=== PATIENT | female | born 1975 | race Caucasian/White ===

== ENCOUNTER 2016-12-03 13:20 | Outpatient (CLI) | payer MEDICAID | END 2016-12-03 13:21 | disposition home or self-care (01) | DX: M54.5 Low back pain (principal) ==

== ENCOUNTER 2016-12-07 11:06 | Outpatient (CLI) | payer MEDICAID | END 2016-12-07 11:07 | disposition home or self-care (01) | DX: M47.816 Spondylosis without myelopathy or radiculopathy, lumbar region (principal); M51.46 Schmorl's nodes, lumbar region; M54.5 Low back pain ==

== ENCOUNTER 2017-01-05 11:54 | Outpatient (CLI) | payer MEDICAID | END 2017-01-05 11:55 | disposition home or self-care (01) | DX: M79.672 Pain in left foot (principal) ==

== ENCOUNTER 2017-03-15 12:34 | Outpatient (CLI) | payer MEDICAID | END 2017-03-15 12:35 | disposition home or self-care (01) | DX: N05.9 Unspecified nephritic syndrome with unspecified morphologic changes (principal); R80.9 Proteinuria, unspecified; D64.9 Anemia, unspecified ==

== ENCOUNTER 2017-03-25 15:28 | Outpatient (CLI) | payer MEDICAID | END 2017-03-25 15:29 | disposition home or self-care (01) | DX: M25.512 Pain in left shoulder (principal) ==

== ENCOUNTER 2017-03-26 14:45 | Outpatient (CLI) | payer MEDICAID | END 2017-03-26 14:46 | disposition home or self-care (01) | DX: E87.6 Hypokalemia (principal) ==

== ENCOUNTER 2017-04-16 08:00 | Outpatient (CLI) | payer MEDICAID | END 2017-04-16 08:01 | disposition home or self-care (01) | LOC: LAB 08:00 | PROVIDERS: ATTEND Internal Medicine Nephrology | DX: E78.5 Hyperlipidemia, unspecified (principal) ==

== ENCOUNTER 2017-04-16 15:53 | Outpatient (CLI) | payer MEDICAID ==
[2017-04-16 16:44] LABS: ALBUMIN/GLOBULIN RATIO 1.4 (1.0-2.2); BILIRUBIN,TOTAL 0.4 mg/dL (0.2-1.0); BUN - BLOOD UREA NITROGEN 17 mg/dL (6-20); CALCIUM 9.1 mg/dL (8.5-10.3); CARBON DIOXIDE - CO2 27 mmol/L (21-32); CHLORIDE 102 mmol/L (101-111); CHOLESTEROL 163 mg/dL; GFR - MDRD 61 (>89); GLUCOSE 132 mg/dL (70-100); HDL CHOLESTEROL 55 mg/dL; LDL/HDL RATIO 1.6 (<4.4); POTASSIUM 4.3 mmol/L (3.5-5.0); SODIUM 137 mmol/L (135-145); TOTAL PROTEIN 7.4 g/dL (6.7-8.2); TRIGLYCERIDES 91 mg/dL; VLDL CHOLESTEROL 18 mg/dL
== END 2017-04-16 15:54 | disposition home or self-care (01) ==
LOC: LAB 15:53
PROVIDERS: ATTEND Internal Medicine Nephrology
DX: E10.69 Type 1 diabetes mellitus with other specified complication (principal)
CPT/HCPCS: 36415; 80053; 80061

== ENCOUNTER 2017-05-06 15:55 | Outpatient (CLI) | payer MEDICAID ==
[2017-05-06 17:25] LABS: THYROID STIMULATING HORMONE 0.09 uIU/mL (0.34-5.60)
== END 2017-05-06 15:56 | disposition home or self-care (01) ==
LOC: LAB 15:55
PROVIDERS: ATTEND Internal Medicine Endocrinology, Diabetes & Metabolism
DX: E03.9 Hypothyroidism, unspecified (principal); E03.8 Other specified hypothyroidism
CPT/HCPCS: 36415; 82306; 84439; 84443

== ENCOUNTER 2017-06-10 13:48 | Outpatient (CLI) | payer MEDICAID ==
[2017-06-10 14:50] LABS: CALCIUM 9.1 mg/dL (8.5-10.3); POTASSIUM 4.1 mmol/L (3.5-5.0)
== END 2017-06-10 13:49 | disposition home or self-care (01) ==
LOC: LAB 13:48
PROVIDERS: ATTEND Internal Medicine Nephrology
DX: N05.9 Unspecified nephritic syndrome with unspecified morphologic changes (principal)
CPT/HCPCS: 36415; 80048

== ENCOUNTER 2017-07-09 12:27 | Outpatient (CLI) | payer MEDICAID ==
--- NOTE | 2017-07-09 21:56 | MRI Report ---
EXAM: MRI CERVICAL SPINE WITHOUT CONTRAST EXAM DATE: 07/09/2017 12:45 PM. CLINICAL HISTORY: Chronic neck pain, left shoulder pain. COMPARISONS: None. TECHNIQUE: Multiplanar, multisequence T1-weighted and fluid-sensitive sequences of the cervical spine without contrast. Other: None. FINDINGS: Neurologic Structures: The visualized posterior fossa structures are unremarkable. No signal abnormal ity in the visualized spinal cord. Alignment: Normal. No scoliosis or spondylolisthesis. Bone Marrow: No gross fractures or bone lesions. No marrow edema. Interspace Levels/Facets: C1-C2: Unremarkable. C2-C3: Unremarkable. C3-C4: Minimal right uncovertebral hypertrophy without significant foraminal narrowing. C4-C5: Unremarkable. C5-C6: Right subarticular disk osteophyte complex and asymmetric right uncovertebral hypertrophy, rem odeling the right lateral aspect of the cord, presumably impinging on the right C6 nerve root. Findin gs could be correlated with right C6 radiculopathy. Minimal left uncovertebral hypertrophy with minim al right foraminal narrowing. No significant canal narrowing. C6-C7: Unremarkable. C7-T1: Unremarkable. Musculature: Normal. No edema or fatty atrophy. Other: The paravertebral and prevertebral soft tissues are normal. IMPRESSION: 1. Left foraminal narrowing most pronounced at C5-C6, but only minimal in severity. 2. At C5-C6, focal right C5-C6 protrusion and uncovertebral hypertrophy remodeling the right lateral aspect of the cord, could be correlated with right C6 radiculopathy. 3. Minimal right C3-C4 uncovertebral hypertrophy with minimal right C3-C4 foraminal narrowing. [facility] Referring Provider Line: [phone] SITE ID: [id number]
== END 2017-07-09 12:28 | disposition home or self-care (01) ==
LOC: DI 12:27
PROVIDERS: ATTEND Orthopaedic Surgery
DX: M47.892 Other spondylosis, cervical region (principal); M50.822 Other cervical disc disorders at C5-C6 level
CPT/HCPCS: 72141

== ENCOUNTER 2017-07-20 10:29 | Outpatient (CLI) | payer MEDICAID | END 2017-07-20 10:30 | disposition home or self-care (01) | LOC: LAB 10:29 | PROVIDERS: ATTEND Internal Medicine Endocrinology, Diabetes & Metabolism | DX: E03.9 Hypothyroidism, unspecified (principal) | CPT/HCPCS: 36415; 84443 ==

== ENCOUNTER 2017-08-27 14:13 | Outpatient (CLI) | payer MEDICAID ==
[2017-08-27 14:34] LABS: BASOPHILS # (AUTO) 0.1 10^3/uL (0.0-0.1); BASOPHILS % (AUTO) 1.3 %; EOSINOPHILS # (AUTO) 0.4 10^3/uL (0.0-0.7); EOSINOPHILS % (AUTO) 6.4 %; HCT - HEMATOCRIT 31.9 % (37.0-47.0); HGB - HEMOGLOBIN 10.3 g/dL (12.0-16.0); LYMPHOCYTES # (AUTO) 1.6 10^3/uL (1.5-3.5); LYMPHOCYTES % (AUTO) 23.8 %; MEAN CORPUSCULAR HEMOGLOBIN 24.9 pg (27.0-31.0); MEAN CORPUSCULAR HGB CONC 32.1 g/dL (32.0-36.0); MEAN CORPUSCULAR VOLUME 77.5 fL (81.0-99.0); MEAN PLATELET VOLUME 7.6 fL (7.9-10.8); MONOCYTES # (AUTO) 0.5 10^3/uL (0.0-1.0); MONOCYTES % (AUTO) 7.6 %; NEUTROPHILS # (AUTO) 4.2 10^3/uL (1.5-6.6); NEUTROPHILS % (AUTO) 60.9 %; RED BLOOD COUNT 4.12 10^6/uL (4.20-5.40); RED CELL DISTRIBUTION WIDTH 16.4 % (12.0-15.0); UNCORRECTED WHITE BLOOD COUNT 6.9 x10^3/uL; WHITE BLOOD COUNT 6.9 x10^3/uL (4.8-10.8)
[2017-08-27 14:54] LABS: ALBUMIN/GLOBULIN RATIO 1.3 (1.0-2.2); BILIRUBIN,TOTAL 0.4 mg/dL (0.2-1.0); CALCIUM 8.8 mg/dL (8.5-10.3); CREATININE 0.9 mg/dL (0.4-1.0); HEMOGLOBIN A1C 0.7 g/dL
== END 2017-08-27 14:14 | disposition home or self-care (01) ==
LOC: LAB 14:13
PROVIDERS: ATTEND Internal Medicine Endocrinology, Diabetes & Metabolism
DX: E55.9 Vitamin D deficiency, unspecified (principal); E10.42 Type 1 diabetes mellitus with diabetic polyneuropathy; E10.65 Type 1 diabetes mellitus with hyperglycemia
CPT/HCPCS: 80053; 82306; 83036; 85025

== ENCOUNTER 2017-12-23 20:18 | Emergency (ER) | payer MEDICAID ==
[2017-12-23] MEDS ORDERED: METOCLOPRAMIDE 10 MG/2 ML VIAL IVP STA (20:34)
[2017-12-23] MEDS ORDERED: diphenhydrAMINE INJ 50 MG/ML VIAL IVP STA (20:34)
[2017-12-23] MEDS ORDERED: SUMAtriptan 6 MG/0.5 ML VIAL SUBQ STA (20:34)
[2017-12-23] MEDS ORDERED: SODIUM CHLORIDE 0.9% 1,000 ML IV ONE (20:34)
[2017-12-23] MEDS ORDERED: KETOROLAC 60 MG/2 ML VIAL IVP STA (20:34)
--- NOTE | 2017-12-23 20:38 | ED Physician Documentation ---
PD HPI HEADACHE - Stated complaint Stated Complaint: PATEL/RIB PX - Chief complaint Chief Complaint: Abd Pain - History obtained from History obtained from: Patient, Family - History of Present Illness Timing - onset: Other (Couple of days ago she was putting on a coat and felt a pop in her right ribs and has had rib pain ever since. She notes she has a history of rib fractures related to seizure but she has had no recent seizures. She also has had a migraine headache all day. She has frequent migraines and is out of Imitrex but says Imitrex really has been working for her in any way lately.Couple of days ago she was putting on a coat and felt a pop in her right ribs and has had rib pain ever since. She notes she has a history of rib fractures related to seizure but she has had no recent seizures. She also has had a migraine headache all day. She has frequent migraines and is out of Imitrex but says Imitrex really has been working for her in any way lately.) Review of Systems Constitutional: denies: Fever, Chills Throat: denies: Dental pain / toothache, Sore throat Cardiac: reports: Chest pain / pressure. 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, Endometrial ablation, Tubal ligation - Present Medications Home Medications: Ambulatory Orders Medication Instructions Recorded Confirmed Amphetamine Sulfate [Evekeo] 20 mg PO BID 10/30/15 06/03/16 Aspirin [Aspir 81] 81 mg PO DAILY 10/30/15 06/03/16 Esomeprazole Magnesium 40 mg PO DAILY 10/30/15 06/03/16 Furosemide [Lasix] 80 mg PO DAILY 10/30/15 06/03/16 Insulin Lispro [Humalog] See Protocol SQ ONCE 10/30/15 06/03/16 Levothyroxine [Synthroid] 125 mcg PO DAILY 10/30/15 06/03/16 Potassium Chloride [Klor-Con] 10 meq PO DAILY 10/30/15 06/03/16 Pramipexole [Mirapex] 0.25 mg PO DAILY 10/30/15 06/03/16 Promethazine [Phenergan] 25 mg PO ONCE 10/30/15 06/03/16 Simvastatin 20 mg PO DAILY 10/30/15 06/03/16 Topiramate 100 mg PO DAILY 10/30/15 06/03/16 clonazePAM [Clonazepam] 0.5 mg PO DAILY 10/30/15 06/03/16 oxyCODONE [Roxicodone] 10 mg PO QID 10/30/15 06/03/16 Baclofen 1 tab PO BID 06/03/16 06/03/16 Duloxetine HCl [Cymbalta] 1 tab PO DAILY 06/03/16 06/03/16 Ergocalciferol [Vitamin D2] 1 tab PO DAILY 06/03/16 06/03/16 Escitalopram Oxalate [Lexapro] 1 tab PO DAILY 06/03/16 06/03/16 Hydroxyzine HCl 50 mg PO DAILY 06/03/16 06/03/16 Morphine ER 30 mg PO BID 06/03/16 06/03/16 SUMAtriptan [Imitrex] 100 mg PO DAILY 06/03/16 06/03/16 Spironolactone 1 tab PO DAILY 06/03/16 06/03/16 Vitamin B Complex 1 ahfu .ROUTE .FREQ 06/03/16 06/03/16 Butalb/Acetaminophen/Caffeine 1 each PO QID PRN #15 capsule 12/23/17 [Fioricet 50-300-40 mg Capsule] Ferrous Sulfate 325 mg PO DAILY #90 tablet 12/23/17 Metoclopramide [Reglan] 10 mg PO Q6H PRN #20 tablet 12/23/17 SUMAtriptan [Imitrex] 25 mg PO BID PRN #10 tablet 12/23/17 - Allergies Allergies/Adverse Reactions: Allergies Allergy/AdvReac Type Severity Reaction Status Date / Time baclofen Allergy Nausea Verified 12/23/17 20:27 carisoprodol [From Soma] Allergy Unknown Verified 12/23/17 20:27 cyclobenzaprine HCl * Allergy Edema Verified 12/23/17 20:27 [From Flexeril] divalproex sodium Allergy Rash Verified 12/23/17 20:27 [From Depakote] gabapentin [From Neurontin] Allergy Edema Verified 12/23/17 20:27 lidocaine Allergy Unknown Verified 12/23/17 20:27 nitrofurantoin Allergy Rash Verified 12/23/17 20:27 macrocrystalline * [From Macrodantin] nortriptyline Allergy Unknown Verified 12/23/17 20:27 ondansetron HCl * Allergy Hives Verified 12/23/17 20:27 [From Zofran (as hydrochloride)] pregabalin [From Lyrica] Allergy Headache Verified 12/23/17 20:27 - Social History Does the pt smoke?: Yes Smoking Status: Current every day smoker Does the pt drink ETOH?: No Does the pt have substance abuse?: No - Immunizations Immunizations are current?: Yes Immunizations: TDAP >10years/unknown PD ED PE NORMAL - Vitals Vital signs reviewed: Yes - General General: Alert and oriented X 3, No acute distress - HEENT HEENT: PERRL, EOMI - Neck Neck: Supple, no meningeal sign, No bony TTP - Cardiac Cardiac: RRR, No murmur - Respiratory Respiratory: No respiratory distress, Clear bilaterally, Other (Tender right lateral low ribs without deformity.) - Abdomen Abdomen: Non tender - Extremities Extremities: No edema, No calf tenderness / cord - Neuro Neuro: Alert and oriented X 3, Normal speech - Psych Psych: Normal mood, Normal affect Results - Vitals Vitals: Vital Signs - 24 hr 12/23/17 12/23/17 20:20 21:02 Temperature 36.2 C L Heart Rate 114 H 64 Respiratory 17 15 Rate Blood Pressure 144/106 H 131/83 H O2 Saturation 100 98 Oxygen O2 Source Room air - Labs Labs: Laboratory Tests 12/23/17 12/23/17 20:45 20:45 WBC 8.0 RBC 4.30 Hgb 10.3 L Hct 32.6 L MCV 75.9 L MCH 23.9 L MCHC 31.5 L RDW 18.2 H Plt Count 307 MPV 7.9 Neut # 3.2 Lymph # 3.6 H [place] # 0.5 Eos # 0.6 Baso # 0.1 Absolute Nucleated RBC 0.00 Nucleated RBC % 0.0 Sodium 137 Potassium 3.8 Chloride 100 L Carbon Dioxide 25 Anion Gap 12.0 BUN 12 Creatinine 0.8 Estimated GFR (MDRD) 78 L Glucose 72 Calcium 9.0 Total Bilirubin 0.2 AST 17 ALT 14 Alkaline Phosphatase 53 Total Protein 7.4 Albumin 4.0 Globulin 3.4 Albumin/Globulin Ratio 1.2 Lipase 26 - Rads (name of study) R ribs and chest Radiology: EMP read contemporaneously (NAD, old rib frxs, clear lungs.) PD MEDICAL DECISION MAKING - ED course ED course: 42-year-old woman with right-sided chest wall pain after a lifting injury and a migraine headache. No relief with Reglan, Toradol, Benadryl and Imitrex here, followed by a milligram of Dilaudid with good relief and requesting discharge. The patient and family were counseled as to the diagnosis and need for follow- up. I counseled the patient with regard to signs and symptoms that would necessitate an urgent reevaluation in the emergency department. They understand they are welcome to return at any time if worse or if not improving as expected. This document was made in part using voice recognition software. While efforts are made to proofread this documents, sound alike and grammatical errors may occur. Departure - Departure Disposition: 01 Home, Self Care Clinical Impression: Iron deficiency anemia Qualifiers: Iron deficiency anemia type: unspecified iron deficiency Qualified Code(s): D50.9 - Iron deficiency anemia, unspecified Migraine headache Qualifiers: Migraine type: without aura Status migrainosus presence: with status migrainosus Intractability: not intractable Qualified Code(s): G43.001 - Migraine without aura, not intractable, with status migrainosus Chest wall muscle strain Qualifiers: Encounter type: initial encounter Qualified Code(s): S29.011A - Strain of muscle and tendon of front wall of thorax, initial encounter Condition: Good Record reviewed to determine appropriate education?: Yes Instructions: ED Strain Chest Wall Ch, ED Headache Migraine Prescriptions: Butalb/Acetaminophen/Caffeine [Fioricet 50-300-40 mg Capsule] 1 each PO QID PRN #15 capsule PRN Reason: Headache Ferrous Sulfate 325 mg PO DAILY #90 tablet Metoclopramide [Reglan] 10 mg PO Q6H PRN #20 tablet PRN Reason: Nausea / Vomiting SUMAtriptan [Imitrex] 25 mg PO BID PRN #10 tablet PRN Reason: Headache Comments: Follow-up with your physician and discuss referral to a neurologist given your chronic headaches. Return if worse. Your blood pressure was elevated today on check into the emergency department. This does not mean that you have hypertension, it is a common phenomenon to come to the emergency department and have elevated blood pressure. I recommend that you see your primary care physician within the week to have it rechecked when you are feeling better.
[2017-12-23 20:53] LABS: BASOPHILS # (AUTO) 0.1 10^3/uL (0.0-0.1); BASOPHILS % (AUTO) 1.1 %; EOSINOPHILS # (AUTO) 0.6 10^3/uL (0.0-0.7); EOSINOPHILS % (AUTO) 7.3 %; HGB - HEMOGLOBIN 10.3 g/dL (12.0-16.0); LYMPHOCYTES # (AUTO) 3.6 10^3/uL (1.5-3.5); LYMPHOCYTES % (AUTO) 44.9 %; MEAN CORPUSCULAR HEMOGLOBIN 23.9 pg (27.0-31.0); MEAN CORPUSCULAR HGB CONC 31.5 g/dL (32.0-36.0); MEAN CORPUSCULAR VOLUME 75.9 fL (81.0-99.0); MEAN PLATELET VOLUME 7.9 fL (7.9-10.8); MONOCYTES # (AUTO) 0.5 10^3/uL (0.0-1.0); MONOCYTES % (AUTO) 6.6 %; NEUTROPHILS # (AUTO) 3.2 10^3/uL (1.5-6.6); NEUTROPHILS % (AUTO) 40.1 %; PLT - PLATELET COUNT 307 10^3/uL (130-450); RED CELL DISTRIBUTION WIDTH 18.2 % (12.0-15.0)
[2017-12-23 21:05] LABS: ALBUMIN/GLOBULIN RATIO 1.2 (1.0-2.2); BILIRUBIN,TOTAL 0.2 mg/dL (0.2-1.0); CREATININE 0.8 mg/dL (0.4-1.0); TOTAL PROTEIN 7.4 g/dL (6.7-8.2)
[2017-12-23] MEDS ORDERED: HYDROmorphone 1 MG/ML SYRINGE IVP STA (21:20)
--- NOTE | 2017-12-23 21:34 | XRAY Preliminary Report ---
Exam: XR RIBS W/PA CHEST RT IMPRESSION: 1. No acute right rib fracture or focal bone lesion is identified. 2. Old healed eighth and ninth posterolateral right rib fractures. 3. Lungs are clear. [facility] SITE ID: [id number]
--- NOTE | 2017-12-23 21:35 | XRAY Report ---
EXAM: CHEST AND RIGHT RIB RADIOGRAPHY EXAM DATE: 12/23/2017 09:17 PM. CLINICAL HISTORY: Mid-lower right rib pain. No known injury. COMPARISON: 04/03/2016. TECHNIQUE: 1 view of the chest and 2 views of the ribs. FINDINGS: Bones: Old healed eighth and ninth posterolateral right rib fractures. Marker placed over the lower l ateral right costal margin, no fracture or focal lesion is identified in this region. Lungs: No focal opacities. No pneumothorax. No pleural effusions. Mediastinum: Heart and mediastinal contours are unremarkable. Other: None. IMPRESSION: 1. No acute right rib fracture or focal bone lesion is identified. 2. Old healed eighth and ninth posterolateral right rib fractures. 3. Lungs are clear. [facility] Referring Provider Line: [phone] SITE ID: [id number]
[2017-12-23 21:48] VITALS: BP 113/73
== END 2017-12-23 22:00 | disposition home or self-care (01) ==
LOC: ED 20:18
DX: D50.9 Iron deficiency anemia, unspecified (principal); G43.001 Migraine without aura, not intractable, with status migrainosus; S29.011A Strain of muscle and tendon of front wall of thorax, initial encounter; X58.XXXA Exposure to other specified factors, initial encounter; R03.0 Elevated blood-pressure reading, without diagnosis of hypertension; E10.42 Type 1 diabetes mellitus with diabetic polyneuropathy; E78.00 Pure hypercholesterolemia, unspecified; E03.9 Hypothyroidism, unspecified; F17.200 Nicotine dependence, unspecified, uncomplicated; Z79.82 Long term (current) use of aspirin
CPT/HCPCS: 36415; 71101; 80053; 83690; 85025; 96361; 96372; 96374; 96375; 99283; 99284; J1170

== ENCOUNTER 2018-01-03 10:33 | Outpatient (CLI) | payer MEDICAID ==
[2018-01-03 11:05] LABS: CALCIUM 8.8 mg/dL (8.5-10.3); CREATININE 0.8 mg/dL (0.4-1.0)
== END 2018-01-03 10:34 | disposition home or self-care (01) ==
LOC: LAB 10:33
PROVIDERS: ATTEND Internal Medicine Endocrinology, Diabetes & Metabolism
DX: E55.9 Vitamin D deficiency, unspecified (principal); E83.40 Disorders of magnesium metabolism, unspecified; N05.9 Unspecified nephritic syndrome with unspecified morphologic changes
CPT/HCPCS: 36415; 80048; 82306; 83735

== ENCOUNTER 2018-04-14 09:29 | Outpatient (CLI) | payer MEDICAID, MEDICARE | END 2018-04-14 09:30 | disposition home or self-care (01) | LOC: LAB 09:29 | PROVIDERS: ATTEND Internal Medicine Endocrinology, Diabetes & Metabolism | DX: M79.676 Pain in unspecified toe(s) (principal); E10.311 Type 1 diabetes mellitus with unspecified diabetic retinopathy with macular edema; E10.65 Type 1 diabetes mellitus with hyperglycemia; E16.2 Hypoglycemia, unspecified | CPT/HCPCS: 36415; 81599; 82947; 84550; 84681 ==

== ENCOUNTER 2018-05-22 13:45 | Inpatient (IN) | payer MEDICARE ==
[2018-05-22] MEDS ORDERED: HYDROmorphone 2 MG/ML VIAL IVP STA (14:16)
[2018-05-22] MEDS ORDERED: ONDANSETRON 4 MG/2 ML VIAL IVP STA (14:16)
[2018-05-22] MEDS ORDERED: SODIUM CHLORIDE 0.9% 1,000 ML IV ONE (14:16)
--- NOTE | 2018-05-22 14:19 | ED Physician Documentation ---
PD HPI ABD PAIN - Stated complaint Stated Complaint: RECTAL BLEEDING/ABD PX - Chief complaint Chief Complaint: Abd Pain - History obtained from History obtained from: Patient - History of Present Illness Timing - onset: Other (This is a 43-year-old woman with long-standing history of type 1 diabetes and multiple other ailments, most notable for the GI tract including only potential gastroparesis, ulcers and GERD but no lower GI problem except for chronic constipation from her medications. She has been more constipated than normal but noticed hematochezia on . She woke up this morning and had bright red blood per rectum and has been having stomach and back cramps with it and had another episode of bright red blood per rectum this afternoon. She also has a migraine headache which is not uncommon for her. She denies any fevers. She has had a poor appetite with nausea but no vomiting. Her blood sugars have been controlled, she has an insulin pump and continuous glucose meter.) Review of Systems Constitutional: denies: Fever, Chills Cardiac: denies: Chest pain / pressure, Palpitations Respiratory: denies: Dyspnea, Cough GI: reports: Abdominal Pain, Nausea. 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, Endometrial ablation, Tubal ligation - Present Medications Home Medications: Ambulatory Orders Medication Instructions Recorded Confirmed Amphetamine Sulfate [Evekeo] 20 mg PO BID 10/30/15 06/03/16 Aspirin [Aspir 81] 81 mg PO DAILY 10/30/15 06/03/16 Esomeprazole Magnesium 40 mg PO DAILY 10/30/15 06/03/16 Furosemide [Lasix] 80 mg PO DAILY 10/30/15 06/03/16 Insulin Lispro [Humalog] See Protocol SQ ONCE 10/30/15 06/03/16 Levothyroxine [Synthroid] 125 mcg PO DAILY 10/30/15 06/03/16 Potassium Chloride [Klor-Con] 10 meq PO DAILY 10/30/15 06/03/16 Pramipexole [Mirapex] 0.25 mg PO DAILY 10/30/15 06/03/16 Promethazine [Phenergan] 25 mg PO ONCE 10/30/15 06/03/16 Simvastatin 20 mg PO DAILY 10/30/15 06/03/16 Topiramate 100 mg PO DAILY 10/30/15 06/03/16 clonazePAM [Clonazepam] 0.5 mg PO DAILY 10/30/15 06/03/16 oxyCODONE [Roxicodone] 10 mg PO QID 10/30/15 06/03/16 Baclofen 1 tab PO BID 06/03/16 06/03/16 Duloxetine HCl [Cymbalta] 1 tab PO DAILY 06/03/16 06/03/16 Ergocalciferol [Vitamin D2] 1 tab PO DAILY 06/03/16 06/03/16 Escitalopram Oxalate [Lexapro] 1 tab PO DAILY 06/03/16 06/03/16 Hydroxyzine HCl 50 mg PO DAILY 06/03/16 06/03/16 Morphine ER 30 mg PO BID 06/03/16 06/03/16 SUMAtriptan [Imitrex] 100 mg PO DAILY 06/03/16 06/03/16 Spironolactone 1 tab PO DAILY 06/03/16 06/03/16 Vitamin B Complex 1 ahfu .ROUTE .FREQ 06/03/16 06/03/16 Butalb/Acetaminophen/Caffeine 1 each PO QID PRN #15 capsule 12/23/17 [Fioricet 50-300-40 mg Capsule] Ferrous Sulfate 325 mg PO DAILY #90 tablet 12/23/17 Metoclopramide [Reglan] 10 mg PO Q6H PRN #20 tablet 12/23/17 SUMAtriptan [Imitrex] 25 mg PO BID PRN #10 tablet 12/23/17 - Allergies Allergies/Adverse Reactions: Allergies Allergy/AdvReac Type Severity Reaction Status Date / Time carisoprodol [From Soma] Allergy Unknown Verified 12/23/17 20:27 cyclobenzaprine HCl * Allergy Edema Verified 12/23/17 20:27 [From Flexeril] divalproex sodium Allergy Rash Verified 12/23/17 20:27 [From Depakote] gabapentin [From Neurontin] Allergy Edema Verified 12/23/17 20:27 lidocaine Allergy Unknown Verified 12/23/17 20:27 nitrofurantoin Allergy Rash Verified 12/23/17 20:27 macrocrystalline * [From Macrodantin] nortriptyline Allergy Unknown Verified 12/23/17 20:27 ondansetron HCl * Allergy Hives Verified 12/23/17 20:27 [From Zofran (as hydrochloride)] pregabalin [From Lyrica] Allergy Headache Verified 12/23/17 20:27 - Social History Does the pt smoke?: Yes Smoking Status: Current every day smoker Does the pt drink ETOH?: No Does the pt have substance abuse?: No - Family History Family history: reports: Non contributory - Immunizations Immunizations are current?: Yes Immunizations: TDAP >10years/unknown PD ED PE NORMAL - Vitals Vital signs reviewed: Yes - General General: Alert and oriented X 3, No acute distress - HEENT HEENT: PERRL, EOMI - Neck Neck: Supple, no meningeal sign, No bony TTP - Cardiac Cardiac: RRR, No murmur - Respiratory Respiratory: No respiratory distress, Clear bilaterally - Abdomen Abdomen: Normal bowel sounds, Soft, Non tender - Rectal Rectal: Other (Done with Darlin RN, there is yellow stool which is guaiac negative , QC passed) - Back Back: No CVA TTP, No spinal TTP - Extremities Extremities: No edema, No calf tenderness / cord - Neuro Neuro: Alert and oriented X 3, Normal speech Results - Vitals Vitals: Vital Signs - 24 hr 05/22/18 05/22/18 05/22/18 13:50 14:24 14:30 Temperature 36.7 C Heart Rate 86 78 73 Respiratory 18 15 15 Rate Blood Pressure 111/71 103/64 113/72 O2 Saturation 99 97 97 Oxygen O2 Source Room air - Labs Labs: Laboratory Tests 05/22/18 05/22/18 05/22/18 14:23 14:23 15:23 WBC 6.4 RBC 3.72 L Hgb 8.3 L 8.1 L Hct 26.8 L 26.6 L MCV 72.3 L MCH 22.2 L MCHC 30.8 L RDW 19.4 H Plt Count 337 MPV 7.7 L Neut # (Auto) 3.3 Lymph # (Auto) 2.2 [place] # (Auto) 0.5 Eos # (Auto) 0.4 Baso # (Auto) 0.1 Absolute Nucleated RBC 0.00 Nucleated RBC % 0.0 Sodium 132 L Potassium 3.4 L Chloride 101 Carbon Dioxide 24 Anion Gap 7.0 BUN 7 Creatinine 1.0 Estimated GFR (MDRD) 60 L Glucose 113 H Calcium 8.3 L Total Bilirubin 0.4 AST 19 ALT 15 Alkaline Phosphatase 67 Total Protein 6.9 Albumin 3.4 Globulin 3.5 Albumin/Globulin Ratio 1.0 Lipase 20 L PD MEDICAL DECISION MAKING - ED course ED course: This is a 43-year-old woman with long-standing diabetes who had a gastric bypass , an open Sophie-en-Y in 2001 who presents with hematochezia and abdominal cramping. She was actually guaiac negative on examination but her H&H is significantly lower than her baseline which is already anemic. I spoke with Dr. Neeraj Pemberton, the on-call surgeon for consultation at 3:41 PM and he would like to see her observed on the medicine service and plans to do a colonoscopy on her tomorrow and will need to be prepped. She will need serial H &H's. I spoke with Dr. Tolentino for observation at 3:42 PM. - Sepsis Event Vital Signs: Vital Signs - 24 hr 05/22/18 05/22/18 05/22/18 13:50 14:24 14:30 Temperature 36.7 C Heart Rate 86 78 73 Respiratory 18 15 15 Rate Blood Pressure 111/71 103/64 113/72 O2 Saturation 99 97 97 Oxygen O2 Source Room air Departure - Departure Disposition: ED Place in Observation Clinical Impression: Hematochezia, History of Sophie-en-Y gastric bypass Abdominal pain Qualifiers: Abdominal location: lower abdomen, unspecified Qualified Code(s): R10.30 - Lower abdominal pain, unspecified Condition: Stable
[2018-05-22 14:27] LABS: BASOPHILS # (AUTO) 0.1 10^3/uL (0.0-0.1); BASOPHILS % (AUTO) 1.2 %; EOSINOPHILS # (AUTO) 0.4 10^3/uL (0.0-0.7); EOSINOPHILS % (AUTO) 5.5 %; HGB - HEMOGLOBIN 8.3 g/dL (12.0-16.0); LYMPHOCYTES # (AUTO) 2.2 10^3/uL (1.5-3.5); LYMPHOCYTES % (AUTO) 34.1 %; MEAN CORPUSCULAR HEMOGLOBIN 22.2 pg (27.0-31.0); MEAN CORPUSCULAR HGB CONC 30.8 g/dL (32.0-36.0); MEAN CORPUSCULAR VOLUME 72.3 fL (81.0-99.0); MEAN PLATELET VOLUME 7.7 fL (7.9-10.8); MONOCYTES # (AUTO) 0.5 10^3/uL (0.0-1.0); MONOCYTES % (AUTO) 7.9 %; NEUTROPHILS # (AUTO) 3.3 10^3/uL (1.5-6.6); NEUTROPHILS % (AUTO) 51.3 %; PLT - PLATELET COUNT 337 10^3/uL (130-450); RED BLOOD COUNT 3.72 10^6/uL (4.20-5.40); RED CELL DISTRIBUTION WIDTH 19.4 % (12.0-15.0); WHITE BLOOD COUNT 6.4 x10^3/uL (4.8-10.8)
[2018-05-22 14:40] LABS: ALBUMIN 3.4 g/dL (3.2-5.5); BILIRUBIN,TOTAL 0.4 mg/dL (0.2-1.0); CALCIUM 8.3 mg/dL (8.5-10.3); TOTAL PROTEIN 6.9 g/dL (6.7-8.2)
[2018-05-22] MEDS ORDERED: IOPAMIDOL-300 100 ML VIAL ONE (14:41)
[2018-05-22] MEDS ORDERED: PROMETHAZINE INJ 25 MG in SODIUM CHLORIDE 0.9% 50 ML IV STA (14:42)
[2018-05-22] MEDS ORDERED: IOPAMIDOL-300 100 ML VIAL IVP ONE (15:16)
[2018-05-22 15:29] LABS: HGB - HEMOGLOBIN 8.1 g/dL (12.0-16.0)
--- NOTE | 2018-05-22 15:29 | CT Report ---
Procedure Date: 05/22/2018 Accession Number: [id number] / [id number] Procedure: CT - Abdomen/Pelvis W/ CPT Code: FULL RESULT: EXAM: CT ABDOMEN AND PELVIS EXAM DATE: 05/22/2018 03:15 PM. CLINICAL HISTORY: IV only, low abd pain, hematochezia. COMPARISONS: 04/03/2016. TECHNIQUE: Routine helical CT imaging was performed through the abdomen and pelvis. IV contrast: ISOVUE 300 100mL. Enteric contrast: No. Reconstructions: Coronal and sagittal. In accordance with CT protocol optimization, one or more of the following dose reduction techniques were utilized for this exam: automated exposure control, adjustment of mA and/or KV based on patient size, or use of iterative reconstructive technique. FINDINGS: Lung Bases: Unremarkable. Liver: Normal. No mass. Gallbladder/Bile Ducts: Unremarkable. Spleen: Normal. Pancreas: Severely atrophic, unchanged. Adrenal Glands: Normal. Kidneys: Normal. No hydronephrosis. Peritoneal Cavity/Bowel: Surgical changes of gastric bypass no bowel obstruction or discrete bowel thickening. No CT evidence of colitis or diverticulitis. Trace fluid in the pelvis. No free air or adenopathy. No masses or acute inflammatory process. The appendix is normal. Pelvic Organs: The bladder and visualized pelvic organs are unremarkable. Vasculature: No aneurysms or other significant abnormality. Bones: No significant abnormality. Other: None. IMPRESSION: 1. No acute abnormality. Trace pelvic fluid. 2. Surgical changes of gastric bypass. 3. Severely atrophic pancreas. [facility]
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
[2018-05-22 17:32] LABS: PT - PROTHROMBIN TIME 11.4 secs (9.9-12.6)
--- NOTE | 2018-05-22 17:50 | CONSULTATION NOTE ---
Referring Provider Name of Referring Provider:: Flip Delgado Consult Date: 05/22/18 Chief Complaint - Chief Complaint Chief Complaint: rectal bleeding History of Present Illness - Admitted From Admitted From:: ER - History Obtained From Records Reviewed: yes History obtained from: pt Exam Limitations: none - History of Present Illness HPI Comment/Other: 43 yo female with 4 day hx of painless BRBPR, initially noted on outside of stool, then mixed with stool, occurring 4 x per day without dizziness, syncope, but with lower abdominal crampy pains. No melena, N/V or previous similar episodes. No prior lower gi evaluations. Neg FH GI tumors. She has a hx of GERD treated with PPI therapy and supplemental H2 jerzy therapy but no dysphagia. She reports chronic postprandial fullness and nausea, thought possibly due to diabetic gastroparesis. She has not noted any significant recent wt changes. She has a hx of a ning-en-y gastric bypass in 2001 for morbid obesity. She lost over 100 lbs following the procedure. She has not had any recent upper gi evaluations. She reports a remote hx of PUD treated medically with resolution. She has had no further bleeding since admission earlier today. She normally suffers from constipation and can go 7-10 days between bms. She reports an occasional ibuprofen but no other NSAIDs or alcohol use. She does smoke tobacco 1PPD. History - Past Medical History Cardiovascular: reports: High cholesterol Neuro: reports: Migraines Endocrine/Autoimmune: reports: Type 1 diabetes, HyPOthyroidism GI: reports: GERD, Ulcers, Chronic constipation : reports: Kidney stones Psych: reports: Anxiety, Bipolar disorder, ADD/ADHD, Post traumatic stress disorder Musculoskeletal: reports: Osteoarthritis, Fibromyalgia, Chronic back pain MRSA Hx?: No - Past Surgical History General: reports: Gastric surgery (ning en y gastric bypass in 2001), Other ( abdominoplasty) Ortho: reports: Rotator cuff repair, Other /COAL DRIER OPERATOR: reports: section (x 2), Endometrial ablation, Tubal ligation - Family & Social History Family History: Mother: Alive and Well, Mental Illness Family History Comment/Other: The patient's mother has a history of depression, anesthesia complications, and asthma. Neg for GI tumors. - Substance History Use: Uses substance without health or social issues: Tobacco Tobacco Details: Cigarettes - POLST Patient has POLST: No POLST Status: Full Code Meds/Allgy - Home Medications Home Medications: Ambulatory Orders Medication Instructions Recorded Confirmed Insulin Lispro [Humalog] See Protocol SQ ONCE 10/30/15 06/03/16 Promethazine [Phenergan] 25 mg PO Q6H PRN 10/30/15 05/22/18 clonazePAM [Clonazepam] 1 mg PO TID PRN 10/30/15 05/22/18 oxyCODONE [Roxicodone] 10 mg PO QID PRN 10/30/15 05/22/18 Baclofen 10 mg PO QID 06/03/16 05/22/18 SUMAtriptan [Imitrex] 100 mg PO Q2H PRN MDD 200 MG 06/03/16 05/22/18 Butalb/Acetaminophen/Caffeine 1 each PO Q4H PRN 05/22/18 05/22/18 [Fioricet 50-300-40 mg Capsule] Dextroamphetamine/Amphetamine 20 mg PO TID 05/22/18 05/22/18 [Adderall 20 mg Tablet] Duloxetine HCl [Cymbalta] 60 mg PO DAILY 05/22/18 05/22/18 Escitalopram Oxalate [Lexapro] 40 mg PO DAILY 05/22/18 05/22/18 Levothyroxine [Synthroid] 112 mcg PO QDAC 05/22/18 05/22/18 Potassium Citrate [Potassium 10 meq PO BID 05/22/18 05/22/18 Citrate ER] Prazosin HCl [Prazosin HCl] 5 mg PO QPM 05/22/18 05/22/18 Simvastatin [Simvastatin] 20 mg PO QPM 05/22/18 05/22/18 Spironolactone [Aldactone] 100 mg PO DAILY 05/22/18 05/22/18 Trazodone HCl 300 mg PO QPM 05/22/18 05/22/18 - Allergies Allergies/Adverse Reactions: Allergies Allergy/AdvReac Type Severity Reaction Status Date / Time carisoprodol [From Soma] Allergy Unknown Verified 12/23/17 20:27 cyclobenzaprine HCl * Allergy Edema Verified 12/23/17 20:27 [From Flexeril] divalproex sodium Allergy Rash Verified 12/23/17 20:27 [From Depakote] gabapentin [From Neurontin] Allergy Edema Verified 12/23/17 20:27 lidocaine Allergy Unknown Verified 12/23/17 20:27 nitrofurantoin Allergy Rash Verified 12/23/17 20:27 macrocrystalline * [From Macrodantin] nortriptyline Allergy Unknown Verified 12/23/17 20:27 ondansetron HCl * Allergy Hives Verified 12/23/17 20:27 [From Zofran (as hydrochloride)] pregabalin [From Lyrica] Allergy Headache Verified 12/23/17 20:27 Review of Systems - Constitutional Constitutional: reports: Poor appetite. denies: Fever, Chills, Weight gain, Weight loss - Gastrointestinal Gastrointestinal: reports: Abdominal distention, Constipation, Rectal bleeding, Bloody stools, Nausea, Reflux/heartburn, Bloating, Poor appetite. denies: Black stools, Vomiting, Adán blood emesis, Coffee grounds emesis - Musculoskeletal Musculoskeletal: reports: Back pain - Hematologic/Lymphatic Hematologic/Lymphatic: denies: Bleeding tendencies - All Other Systems All Other Systems: reports: Reviewed and negative (or covered in HPI/PMH) Exam - Vital Signs Reviewed Vital Signs: Yes Vital Signs: Vital Signs x48h Temp Pulse Pulse Resp BP BP Pulse Ox 05/22/18 17:03 36.5 C 79 18 110/70 100 05/22/18 16:53 91 16 103/66 98 - Physical Exam General Appearance: positive: No acute distress, Alert, Anxious Eyes Bilateral: positive: Normal inspection, Conjunctivae nml, No scleral icterus ENT: positive: ENT inspection nml, Pharynx nml, No signs of dehydration Neck: positive: Nml inspection, No JVD. negative: Lymphadenopathy (R), Lymphadenopathy (L) Respiratory: positive: Chest non-tender, No respiratory distress, Breath sounds nml Cardiovascular: positive: Regular rate & rhythm, No murmur, No gallop Abdomen: positive: Non-tender, No organomegaly, Nml bowel sounds. negative: Guarding, Rebound, Hepatomegaly, Splenomegaly, Mass Skin: positive: Color nml, No rash, Warm, Dry Extremities: positive: Non-tender, Nml appearance, No pedal edema. negative: Calf tenderness Neurologic/Psychiatric: positive: Oriented x3 Conclusion/Plan - Diagnosis Diagnosis: 1. Lower gi bleeding, hemodynamically stable; ddx includes CRC, angiodysplasia, diverticular disease, upper gi source; doubt hemorrhoids given significant anemia. 2. GERD, longstanding sx, suboptimally managed medically at present; ddx includes erosive esophatitis, Arias's esophagus, stricture a gastrojejunostomy. Stomal ulcer also is possible as a cause of anemia. 3. Iron deficiency anemia; this may be due to gi bleeding or malabsorption of iron following gastric bypass. - Plan Plan: Agree with admission, IVF, observation. I advised EGD/colon in am after bowel prep tonight. PAR conference and consent obtained. - Lab Results Fish Bones: 05/22/18 15:23 05/22/18 14:23 Other Lab Results: LFTs, Lipase nl; RBC indices are microcytic. - Diagnostic Imaging Results Diagnostic Imaging Results: positive: Final report reviewed, Read independently Diagnostic Imaging Results Comments: CT abd/pelvis: s/p gastric bypass, no acute findings.
[2018-05-22 18:05] LABS: HB2 TOTAL 8.7 g/dL; HEMOGLOBIN A1C 0.52 g/dL; HEMOGLOBIN A1C % 7.6 % (4.6-6.2)
[2018-05-22] MEDS: SODIUM CHLORIDE FLUSH 0.9% 10 ML SYRINGE IVP SCH ×3 (18:16→18:31)
[2018-05-22] MEDS: BACLOFEN 10 MG TABLET PO SCH ×2 (18:16→22:00)
[2018-05-22] MEDS: PANTOPRAZOLE 40 MG VIAL IVP SCH (18:16)
[2018-05-22] MEDS: NICOTINE 21 MG PATCH TOP SCH (18:17)
[2018-05-22] MEDS: SODIUM/POTASSIUM/MAG SULFATES 354 ML PREP KIT PO SCH (18:17)
[2018-05-22] MEDS: MORPHINE 2 MG/ML SYRINGE IVP PRN ×2 (18:31→22:00)
[2018-05-22 20:47] LABS: MUDS CUTOFF CONCENTRATIONS CUTOFF CONC BELOW:
[2018-05-22 21:00] LABS: BILIRUBIN,URINE NEGATIVE (NEGATIVE); GLUCOSE, URINE (UA) 250 mg/dL (NEGATIVE); KETONES,URINE (UA) NEGATIVE (NEGATIVE); LEUKOCYTE ESTERASE, URINE NEGATIVE (NEGATIVE); NITRITE,URINE NEGATIVE (NEGATIVE); OCCULT BLOOD,URINE NEGATIVE (NEGATIVE); PROTEIN,URINE NEGATIVE (NEGATIVE); UROBILINOGEN,URINE 0.2 (NORMAL) E.U./dL (NORMAL)
[2018-05-22 21:01] LABS: AMPHETAMINE SCREEN,URINE POSITIVE (NEGATIVE); BENZODIAZEPINES SCREEN, URINE POSITIVE (NEGATIVE); COCAINE SCREEN URINE NEGATIVE (NEGATIVE); METHADONE SCREEN, URINE NEGATIVE (NEGATIVE); METHAMPHETAMINES SCREEN, URINE NEGATIVE (NEGATIVE); OPIATE SCREEN, URINE POSITIVE (NEGATIVE); OXYCODONE SCREEN, URINE NEGATIVE (NEGATIVE); PROPOXYPHENE SCREEN, URINE NEGATIVE (NEGATIVE); TRICYCLIC ANTIDEPRESSANT,URINE NEGATIVE (NEGATIVE)
[2018-05-22 21:08] LABS: CLARITY,URINE CLEAR (CLEAR)
[2018-05-22] MEDS: traZODone 50 MG TABLET PO SCH (22:00)
[2018-05-22 23:42] LABS: BASOPHILS % (AUTO) 0.8 %; EOSINOPHILS # (AUTO) 0.5 10^3/uL (0.0-0.7); HGB - HEMOGLOBIN 7.7 g/dL (12.0-16.0); LYMPHOCYTES # (AUTO) 2.8 10^3/uL (1.5-3.5); LYMPHOCYTES % (AUTO) 49.2 %; MEAN CORPUSCULAR HEMOGLOBIN 21.4 pg (27.0-31.0); MEAN CORPUSCULAR HGB CONC 29.2 g/dL (32.0-36.0); MEAN CORPUSCULAR VOLUME 73.5 fL (81.0-99.0); MEAN PLATELET VOLUME 7.6 fL (7.9-10.8); MONOCYTES # (AUTO) 0.5 10^3/uL (0.0-1.0); MONOCYTES % (AUTO) 8.4 %; NEUTROPHILS # (AUTO) 1.9 10^3/uL (1.5-6.6); NEUTROPHILS % (AUTO) 33.6 %; PLT - PLATELET COUNT 298 10^3/uL (130-450); RED BLOOD COUNT 3.58 10^6/uL (4.20-5.40); RED CELL DISTRIBUTION WIDTH 18.8 % (12.0-15.0); WHITE BLOOD COUNT 5.7 x10^3/uL (4.8-10.8)
[2018-05-23] MEDS ORDERED: D5.45NS W/20 MEQ KCL 1,000 ML IV SCH (02:00)
[2018-05-23] MEDS: MORPHINE 2 MG/ML SYRINGE IVP PRN ×2 (02:10→16:53)
[2018-05-23] MEDS: SODIUM/POTASSIUM/MAG SULFATES 354 ML PREP KIT PO SCH (05:28)
[2018-05-23] MEDS: LEVOTHYROXINE 112 MCG TABLET PO SCH (06:45)
[2018-05-23] MEDS: PANTOPRAZOLE 40 MG VIAL IVP SCH (06:45)
[2018-05-23 07:15] LABS: BASOPHILS # (AUTO) 0.1 10^3/uL (0.0-0.1); BASOPHILS % (AUTO) 1.5 %; EOSINOPHILS # (AUTO) 0.6 10^3/uL (0.0-0.7); EOSINOPHILS % (AUTO) 11.8 %; HGB - HEMOGLOBIN 8.3 g/dL (12.0-16.0); LYMPHOCYTES # (AUTO) 1.7 10^3/uL (1.5-3.5); LYMPHOCYTES % (AUTO) 35.4 %; MEAN CORPUSCULAR VOLUME 73.3 fL (81.0-99.0); MEAN PLATELET VOLUME 8.1 fL (7.9-10.8); MONOCYTES # (AUTO) 0.5 10^3/uL (0.0-1.0); MONOCYTES % (AUTO) 9.3 %; NEUTROPHILS # (AUTO) 2.1 10^3/uL (1.5-6.6); PLT - PLATELET COUNT 309 10^3/uL (130-450); RED BLOOD COUNT 3.76 10^6/uL (4.20-5.40); WHITE BLOOD COUNT 4.9 x10^3/uL (4.8-10.8)
[2018-05-23 07:23] LABS: ALBUMIN 3.1 g/dL (3.2-5.5); BILIRUBIN,TOTAL 0.4 mg/dL (0.2-1.0); CALCIUM 8.1 mg/dL (8.5-10.3); CREATININE 0.8 mg/dL (0.4-1.0); MAGNESIUM 2.1 mg/dL (1.7-2.8); TOTAL PROTEIN 6.3 g/dL (6.7-8.2)
[2018-05-23] MEDS: POLYETHYLENE GLYCOL 3350 17 GM PACKET PO SCH (10:10)
[2018-05-23] MEDS: ESCITALOPRAM 10 MG TABLET PO SCH (10:11)
[2018-05-23] MEDS: SODIUM CHLORIDE FLUSH 0.9% 10 ML SYRINGE IVP SCH ×3 (10:11→16:53)
[2018-05-23] MEDS: BACLOFEN 10 MG TABLET PO SCH ×4 (10:11→20:40)
[2018-05-23] MEDS: DULoxetine 30 MG CAPSULE PO SCH (10:11)
[2018-05-23] MEDS ORDERED: LIDO GARGLE 30 ML BOTTLE ONE (10:11)
[2018-05-23] MEDS: oxyCODONE 5 MG TABLET PO PRN (10:12)
[2018-05-23] MEDS: NICOTINE 21 MG PATCH TOP SCH (10:12)
--- NOTE | 2018-05-23 11:07 | ANESTHESIA ---
Pre-Anesthesia VS, & Labs - Diagnosis Diagnosis 1. Lower gi bleeding, hemodynamically stable; ddx includes CRC, angiodysplasia, diverticular disease, upper gi source; doubt hemorrhoids given significant anemia. 2. GERD, longstanding sx, suboptimally managed medically at present; ddx includes erosive esophatitis, Arias's esophagus, stricture a gastrojejunostomy. Stomal ulcer also is possible as a cause of anemia. 3. Iron deficiency anemia; this may be due to gi bleeding or malabsorption of iron following gastric bypass. - Procedure Procedure: upper and lower endoscopy - Vitals Temp Pulse Resp BP Pulse Ox 36.5 C 77 18 99/61 99 05/23/18 07:41 05/23/18 07:41 05/23/18 07:41 05/23/18 07:41 05/23/18 07:41 - NPO NPO: Other (clears today with bowel prep stopped at 1200, no food for 2 days) - Lab Results Fish Bones: 05/23/18 06:54 05/23/18 06:54 Other Lab Results: Lab Results x24hrs 05/23/18 05/23/18 05/23/18 Range/Units 07:23 06:54 06:54 WBC (4.8-10.8) x10^3/uL RBC (4.20-5.40) 10^6/uL Hgb (12.0-16.0) g/dL Hct (37.0-47.0) % MCV (81.0-99.0) fL MCH (27.0-31.0) pg MCHC (32.0-36.0) g/dL RDW (12.0-15.0) % Plt Count (130-450) 10^3/uL MPV (7.9-10.8) fL Neut # (Auto) (1.5-6.6) 10^3/uL Lymph # (Auto) (1.5-3.5) 10^3/uL [place] # (Auto) (0.0-1.0) 10^3/uL Eos # (Auto) (0.0-0.7) 10^3/uL Baso # (Auto) (0.0-0.1) 10^3/uL Absolute Nucleated RBC x10^3/uL Nucleated RBC % /100WBC Sodium (135-145) mmol/L Potassium (3.5-5.0) mmol/L Chloride (101-111) mmol/L Carbon Dioxide (21-32) mmol/L Anion Gap (6-13) BUN (6-20) mg/dL Creatinine (0.4-1.0) mg/dL Estimated GFR (MDRD) (>89) Glucose (70-100) mg/dL POC Whole Bld Glucose 159 H (70 - 100) mg/dL Calcium (8.5-10.3) mg/dL Magnesium (1.7-2.8) mg/dL Total Bilirubin (0.2-1.0) mg/dL AST (10-42) IU/L ALT (10-60) IU/L Alkaline Phosphatase (42-121) IU/L B-Natriuretic Peptide 61 (5-100) pg/mL Total Protein (6.7-8.2) g/dL Albumin (3.2-5.5) g/dL Globulin (2.1-4.2) g/dL Albumin/Globulin Ratio (1.0-2.2) TSH 2.47 (0.34-5.60) uIU/mL Urine Color Urine Clarity (CLEAR) Urine pH (5.0-7.5) PH Ur Specific [place] (1.002-1.030) Urine Protein (NEGATIVE) mg/dL Urine Glucose (UA) (NEGATIVE) mg/dL Urine Ketones (NEGATIVE) mg/dL Urine Occult Blood (NEGATIVE) Urine Nitrite (NEGATIVE) Urine Bilirubin (NEGATIVE) Urine Urobilinogen (NORMAL) E.U./dL Ur Leukocyte Esterase (NEGATIVE) Ur Microscopic Review Urine Culture Comments Urine Opiates Screen (NEGATIVE) Ur Oxycodone Screen (NEGATIVE) Urine Methadone Screen (NEGATIVE) Ur Propoxyphene Screen (NEGATIVE) Ur Barbiturates Screen (NEGATIVE) Ur Tricyclics Screen (NEGATIVE) Ur Phencyclidine Scrn (NEGATIVE) Ur Amphetamine Screen (NEGATIVE) U Methamphetamines Scrn (NEGATIVE) U Benzodiazepines Scrn (NEGATIVE) Urine Cocaine Screen (NEGATIVE) U Cannabinoids Screen (NEGATIVE) 05/23/18 05/23/18 05/22/18 Range/Units 06:54 06:54 23:35 WBC 4.9 5.7 (4.8-10.8) x10^3/uL RBC 3.76 L 3.58 L (4.20-5.40) 10^6/uL Hgb 8.3 L 7.7 L (12.0-16.0) g/dL Hct 27.5 L 26.3 L (37.0-47.0) % MCV 73.3 L 73.5 L (81.0-99.0) fL MCH 22.0 L 21.4 L (27.0-31.0) pg MCHC 30.0 L 29.2 L (32.0-36.0) g/dL RDW 19.0 H 18.8 H (12.0-15.0) % Plt Count 309 298 (130-450) 10^3/uL MPV 8.1 7.6 L (7.9-10.8) fL Neut # (Auto) 2.1 1.9 (1.5-6.6) 10^3/uL Lymph # (Auto) 1.7 2.8 (1.5-3.5) 10^3/uL [place] # (Auto) 0.5 0.5 (0.0-1.0) 10^3/uL Eos # (Auto) 0.6 0.5 (0.0-0.7) 10^3/uL Baso # (Auto) 0.1 0.0 (0.0-0.1) 10^3/uL Absolute Nucleated RBC 0.00 0.00 x10^3/uL Nucleated RBC % 0.1 0.1 /100WBC Sodium 140 (135-145) mmol/L Potassium 4.0 (3.5-5.0) mmol/L Chloride 106 (101-111) mmol/L Carbon Dioxide 27 (21-32) mmol/L Anion Gap 7.0 (6-13) BUN 6 (6-20) mg/dL Creatinine 0.8 (0.4-1.0) mg/dL Estimated GFR (MDRD) 78 L (>89) Glucose 156 H (70-100) mg/dL POC Whole Bld Glucose (70 - 100) mg/dL Calcium 8.1 L (8.5-10.3) mg/dL Magnesium 2.1 (1.7-2.8) mg/dL Total Bilirubin 0.4 (0.2-1.0) mg/dL AST 20 (10-42) IU/L ALT 15 (10-60) IU/L Alkaline Phosphatase 59 (42-121) IU/L B-Natriuretic Peptide (5-100) pg/mL Total Protein 6.3 L (6.7-8.2) g/dL Albumin 3.1 L (3.2-5.5) g/dL Globulin 3.2 (2.1-4.2) g/dL Albumin/Globulin Ratio 1.0 (1.0-2.2) TSH (0.34-5.60) uIU/mL Urine Color Urine Clarity (CLEAR) Urine pH (5.0-7.5) PH Ur Specific [place] (1.002-1.030) Urine Protein (NEGATIVE) mg/dL Urine Glucose (UA) (NEGATIVE) mg/dL Urine Ketones (NEGATIVE) mg/dL Urine Occult Blood (NEGATIVE) Urine Nitrite (NEGATIVE) Urine Bilirubin (NEGATIVE) Urine Urobilinogen (NORMAL) E.U./dL Ur Leukocyte Esterase (NEGATIVE) Ur Microscopic Review Urine Culture Comments Urine Opiates Screen (NEGATIVE) Ur Oxycodone Screen (NEGATIVE) Urine Methadone Screen (NEGATIVE) Ur Propoxyphene Screen (NEGATIVE) Ur Barbiturates Screen (NEGATIVE) Ur Tricyclics Screen (NEGATIVE) Ur Phencyclidine Scrn (NEGATIVE) Ur Amphetamine Screen (NEGATIVE) U Methamphetamines Scrn (NEGATIVE) U Benzodiazepines Scrn (NEGATIVE) Urine Cocaine Screen (NEGATIVE) U Cannabinoids Screen (NEGATIVE) 05/22/18 05/22/18 05/22/18 Range/Units 20:35 20:35 17:38 WBC (4.8-10.8) x10^3/uL RBC (4.20-5.40) 10^6/uL Hgb (12.0-16.0) g/dL Hct (37.0-47.0) % MCV (81.0-99.0) fL MCH (27.0-31.0) pg MCHC (32.0-36.0) g/dL RDW (12.0-15.0) % Plt Count (130-450) 10^3/uL MPV (7.9-10.8) fL Neut # (Auto) (1.5-6.6) 10^3/uL Lymph # (Auto) (1.5-3.5) 10^3/uL [place] # (Auto) (0.0-1.0) 10^3/uL Eos # (Auto) (0.0-0.7) 10^3/uL Baso # (Auto) (0.0-0.1) 10^3/uL Absolute Nucleated RBC x10^3/uL Nucleated RBC % /100WBC Sodium (135-145) mmol/L Potassium (3.5-5.0) mmol/L Chloride (101-111) mmol/L Carbon Dioxide (21-32) mmol/L Anion Gap (6-13) BUN (6-20) mg/dL Creatinine (0.4-1.0) mg/dL Estimated GFR (MDRD) (>89) Glucose (70-100) mg/dL POC Whole Bld Glucose 322 H (70 - 100) mg/dL Calcium (8.5-10.3) mg/dL Magnesium (1.7-2.8) mg/dL Total Bilirubin (0.2-1.0) mg/dL AST (10-42) IU/L ALT (10-60) IU/L Alkaline Phosphatase (42-121) IU/L B-Natriuretic Peptide (5-100) pg/mL Total Protein (6.7-8.2) g/dL Albumin (3.2-5.5) g/dL Globulin (2.1-4.2) g/dL Albumin/Globulin Ratio (1.0-2.2) TSH (0.34-5.60) uIU/mL Urine Color LT. YELLOW Urine Clarity CLEAR (CLEAR) Urine pH 6.0 (5.0-7.5) PH Ur Specific [place] <=1.005 (1.002-1.030) Urine Protein NEGATIVE (NEGATIVE) mg/dL Urine Glucose (UA) 250 H (NEGATIVE) mg/dL Urine Ketones NEGATIVE (NEGATIVE) mg/dL Urine Occult Blood NEGATIVE (NEGATIVE) Urine Nitrite NEGATIVE (NEGATIVE) Urine Bilirubin NEGATIVE (NEGATIVE) Urine Urobilinogen 0.2 (NORMAL) (NORMAL) E.U./dL Ur Leukocyte Esterase NEGATIVE (NEGATIVE) Ur Microscopic Review NOT INDICATED Urine Culture Comments NOT INDICATED Urine Opiates Screen POSITIVE H (NEGATIVE) Ur Oxycodone Screen NEGATIVE (NEGATIVE) Urine Methadone Screen NEGATIVE (NEGATIVE) Ur Propoxyphene Screen NEGATIVE (NEGATIVE) Ur Barbiturates Screen POSITIVE H (NEGATIVE) Ur Tricyclics Screen NEGATIVE (NEGATIVE) Ur Phencyclidine Scrn NEGATIVE (NEGATIVE) Ur Amphetamine Screen POSITIVE H (NEGATIVE) U Methamphetamines Scrn NEGATIVE (NEGATIVE) U Benzodiazepines Scrn POSITIVE H (NEGATIVE) Urine Cocaine Screen NEGATIVE (NEGATIVE) U Cannabinoids Screen NEGATIVE (NEGATIVE) Medications/Allergies - Medications Active Medication List: Active Medications Baclofen (Lioresal) 10 mg PO QID [facility] Last Admin: 05/23/18 10:11 Dose: 10 mg Clonazepam (Klonopin) 1 mg PO TID PRN PRN Reason: Anxiety Duloxetine HCl (Cymbalta) 60 mg PO DAILY [facility] Last Admin: 05/23/18 10:11 Dose: 60 mg Escitalopram Oxalate (Lexapro) 40 mg PO DAILY [facility] Last Admin: 05/23/18 10:11 Dose: 40 mg Potassium Chloride/Dextrose/Sod Cl (D5.45ns W/20 Meq Kcl) 1,000 mls @ 83.333 mls/hr IV .Q12H [facility] Last Admin: 05/23/18 01:55 Dose: 83.333 mls/hr Levothyroxine Sodium (Synthroid) 112 mcg PO QDAC [facility] Last Admin: 05/23/18 06:45 Dose: 112 mcg Morphine Sulfate (Morphine) 2 mg IVP Q2H PRN PRN Reason: PAIN Last Admin: 05/23/18 02:10 Dose: 2 mg Nicotine (Nicoderm) 1 patch TOP DAILY [facility] Last Admin: 05/23/18 10:12 Dose: 1 patch Oxycodone HCl (Roxicodone) 10 mg PO QID PRN PRN Reason: PAIN Last Admin: 05/23/18 10:12 Dose: 10 mg Pantoprazole Sodium (Protonix) 40 mg IVP QDAC [facility] Last Admin: 05/23/18 06:45 Dose: 40 mg Polyethylene Glycol (Miralax) 17 gm PO DAILY [facility] Last Admin: 05/23/18 10:10 Dose: Not Given Sodium Chloride (Normal Saline Flush 0.9%) 10 ml IVP PRN PRN PRN Reason: NEEDED PER PROVIDER ORDERS Sodium Chloride (Normal Saline Flush 0.9%) 10 ml IVP 0100,0900,1700 [facility] Last Admin: 05/23/18 10:11 Dose: Not Given Trazodone HCl (Desyrel) 300 mg PO QPM SHE[facility] Last Admin: 05/22/18 22:00 Dose: 300 mg Insulin Lispro [Humalog] See Protocol SQ ONCE 10/30/15 Promethazine [Phenergan] 25 mg PO Q6H PRN 10/30/15 clonazePAM [Clonazepam] 1 mg PO TID PRN 10/30/15 oxyCODONE [Roxicodone] 10 mg PO QID PRN 10/30/15 Baclofen 10 mg PO QID 06/03/16 SUMAtriptan [Imitrex] 100 mg PO Q2H PRN MDD 200 MG 06/03/16 Butalb/Acetaminophen/Caffeine [Fioricet 50-300-40 mg Capsule] 1 each PO Q4H PRN 05/22/18 Dextroamphetamine/Amphetamine [Adderall 20 mg Tablet] 20 mg PO TID 05/22/18 Duloxetine HCl [Cymbalta] 60 mg PO DAILY 05/22/18 Escitalopram Oxalate [Lexapro] 40 mg PO DAILY 05/22/18 Levothyroxine [Synthroid] 112 mcg PO QDAC 05/22/18 Potassium Citrate [Potassium Citrate ER] 10 meq PO BID 05/22/18 Prazosin HCl [Prazosin HCl] 5 mg PO QPM 05/22/18 Simvastatin [Simvastatin] 20 mg PO QPM 05/22/18 Spironolactone [Aldactone] 100 mg PO DAILY 05/22/18 Trazodone HCl 300 mg PO QPM 05/22/18 - Allergies Allergies/Adverse Reactions: Allergies Allergy/AdvReac Type Severity Reaction Status Date / Time carisoprodol [From Soma] Allergy Unknown Verified 12/23/17 20:27 cyclobenzaprine HCl * Allergy Edema Verified 12/23/17 20:27 [From Flexeril] divalproex sodium Allergy Rash Verified 12/23/17 20:27 [From Depakote] gabapentin [From Neurontin] Allergy Edema Verified 12/23/17 20:27 lidocaine Allergy Unknown Verified 12/23/17 20:27 nitrofurantoin Allergy Rash Verified 12/23/17 20:27 macrocrystalline * [From Macrodantin] nortriptyline Allergy Unknown Verified 12/23/17 20:27 ondansetron HCl * Allergy Hives Verified 12/23/17 20:27 [From Zofran (as hydrochloride)] pregabalin [From Lyrica] Allergy Headache Verified 12/23/17 20:27 Anes History & Medical History - Anesthetic History Anesthesia Complications: reports: No previous complications (Gastric surgery, rotator cuff, tubal ligation) - Airway/Dental Dental: Dentures full Upper Neck Mobility: Normal Mallampati classification: II Thyromental Distance: 4-6 cm - Medical History Cardiovascular: reports: High cholesterol, Murmur Pulmonary: reports: Shortness of breath Gastrointestinal: reports: GERD, Ulcers, Other (hx fatty liver, ongoing nausea, possible gastroparesis.) Urinary: reports: Kidney stones, Other (frequent UTI) Neuro: reports: Headaches, Seizure disorder (related to hypoglycemia), Other ( blunt force trauma- 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
--- NOTE | 2018-05-23 12:53 | Discharge Plan ---
Discharge Plan Disposition: 01 Home, Self Care Condition: Good Diet: Regular Activity Restrictions: No Restrictions Shower Restrictions: No Driving Restrictions: No Weight Bearing: Full Weight Additional Instructions or Follow Up instructions: You were admitted for GI bleeding. Your urine testing showed no infection. An echocardiogram was completed and final results are pending. A TSH was checked and is 2.47, so your dose of Synthroid is just right. Please see GI out patient in 2 weeks for test results. Please see your PCP within one week. No Smoking: If you smoke, Please STOP! Call for help. Follow-up with: Isatu Belle MD [Primary Care Provider] -
[2018-05-23] MEDS ORDERED: PROPOFOL 200 MG/20 ML VIAL IVP ONE (14:00)
[2018-05-23] MEDS ORDERED: DEXTROSE 5% 1,000 ML IV ONE ×2 (14:00→14:22)
--- NOTE | 2018-05-23 15:09 | PROCEDURE REPORT ---
Hospitalist Procedure Note - Procedure Note Procedure Note: EGD: s/p ning en y gastric bypass with nl post bariatric surgery anatomy, no ulcers, strictures, inflammation; esophagus and GE Junction appeared nl; biopsies pending. Colon: limited to transverse colon due to tortuosity, ow nl; will schedule a completion air contrast BE for tomorrow. See computer generated procedure notes for details.
[2018-05-23] MEDS ORDERED: PROMETHAZINE 25 MG TABLET PO PRN (16:49)
[2018-05-23] MEDS ORDERED: SUMAtriptan 25 MG TABLET PO PRN (16:49)
[2018-05-23] MEDS: BUTALB/ACETAM/CAFF 50/325/40MG TABLET PO PRN (20:40)
[2018-05-23] MEDS: PRAZOSIN 1 MG CAPSULE PO SCH (20:40)
[2018-05-23] MEDS: ATORVASTATIN 10 MG TABLET PO SCH (20:40)
[2018-05-23] MEDS: clonazePAM 0.5 MG TABLET PO PRN (20:49)
[2018-05-23] MEDS: traZODone 50 MG TABLET PO SCH (22:57)
[2018-05-24] MEDS: SODIUM CHLORIDE FLUSH 0.9% 10 ML SYRINGE IVP SCH ×3 (02:16→16:18)
[2018-05-24] MEDS: DEXTROSE 5%-0.9% NACL 1,000 ML IV SCH ×2 (02:16→16:18)
[2018-05-24] MEDS: BUTALB/ACETAM/CAFF 50/325/40MG TABLET PO PRN ×2 (02:25→20:57)
[2018-05-24] MEDS: oxyCODONE 5 MG TABLET PO PRN ×2 (02:26→16:28)
[2018-05-24] MEDS ORDERED: DEXTROSE GEL 37.5 GM TUBE PO ONE (02:49)
[2018-05-24 06:02] LABS: BASOPHILS # (AUTO) 0.1 10^3/uL (0.0-0.1); BASOPHILS % (AUTO) 1.2 %; EOSINOPHILS # (AUTO) 0.4 10^3/uL (0.0-0.7); EOSINOPHILS % (AUTO) 9.2 %; HGB - HEMOGLOBIN 7.3 g/dL (12.0-16.0); LYMPHOCYTES # (AUTO) 2.2 10^3/uL (1.5-3.5); LYMPHOCYTES % (AUTO) 46.3 %; MEAN CORPUSCULAR HEMOGLOBIN 22.1 pg (27.0-31.0); MEAN CORPUSCULAR HGB CONC 30.3 g/dL (32.0-36.0); MEAN CORPUSCULAR VOLUME 73.1 fL (81.0-99.0); MEAN PLATELET VOLUME 8.3 fL (7.9-10.8); MONOCYTES # (AUTO) 0.5 10^3/uL (0.0-1.0); MONOCYTES % (AUTO) 9.8 %; NEUTROPHILS # (AUTO) 1.6 10^3/uL (1.5-6.6); NEUTROPHILS % (AUTO) 33.5 %; PLT - PLATELET COUNT 253 10^3/uL (130-450); RED BLOOD COUNT 3.31 10^6/uL (4.20-5.40); RED CELL DISTRIBUTION WIDTH 19.2 % (12.0-15.0); WHITE BLOOD COUNT 4.7 x10^3/uL (4.8-10.8)
[2018-05-24 06:07] LABS: CALCIUM 7.3 mg/dL (8.5-10.3); CREATININE 0.6 mg/dL (0.4-1.0); MAGNESIUM 2.1 mg/dL (1.7-2.8)
--- NOTE | 2018-05-24 06:34 | PROVIDER PROGRESS NOTE ---
Subjective - Prog Note Date Prog Note Date: 05/23/18 Prog Note Time: 14:00 - Subjective Pt reports feeling: No change Subjective: Jammie continues to complain about "not having her cigarettes, since that is the way she deals with stress". She denies new symptoms such as chest pain, shortness of breath, emesis, bleeding, or a new cough. Current Medications - Current Medications Current Medications: Active Medications Acetaminophen/Butalbital/Caffeine (Fioricet) 1 tab PO Q4H PRN PRN Reason: HEADACHE Last Admin: 05/24/18 02:25 Dose: 1 tab Atorvastatin Calcium (Lipitor) 10 mg PO QPM [facility] Last Admin: 05/23/18 20:40 Dose: 10 mg Baclofen (Lioresal) 10 mg PO QID [facility] Last Admin: 05/23/18 20:40 Dose: 10 mg Clonazepam (Klonopin) 1 mg PO TID PRN PRN Reason: Anxiety Last Admin: 05/23/18 20:49 Dose: 1 mg Duloxetine HCl (Cymbalta) 60 mg PO DAILY [facility] Last Admin: 05/23/18 10:11 Dose: 60 mg Escitalopram Oxalate (Lexapro) 40 mg PO DAILY [facility] Last Admin: 05/23/18 10:11 Dose: 40 mg Dextrose/Sodium Chloride (D5ns) 1,000 mls @ 83.333 mls/hr IV .Q12H [facility] Last Admin: 05/24/18 02:16 Dose: 83.333 mls/hr Levothyroxine Sodium (Synthroid) 112 mcg PO QDAC [facility] Last Admin: 05/23/18 06:45 Dose: 112 mcg Morphine Sulfate (Morphine) 2 mg IVP Q2H PRN PRN Reason: PAIN Last Admin: 05/23/18 16:53 Dose: 2 mg Nicotine (Nicoderm) 1 patch TOP DAILY [facility] Last Admin: 05/23/18 10:12 Dose: 1 patch Oxycodone HCl (Roxicodone) 10 mg PO QID PRN PRN Reason: PAIN Last Admin: 05/24/18 02:26 Dose: 10 mg Pantoprazole Sodium (Protonix) 40 mg IVP QDAC [facility] Last Admin: 05/23/18 06:45 Dose: 40 mg Polyethylene Glycol (Miralax) 17 gm PO DAILY [facility] Last Admin: 05/23/18 10:10 Dose: Not Given Prazosin HCl (Minipress) 5 mg PO QPM [facility] Last Admin: 05/23/18 20:40 Dose: 5 mg Promethazine HCl (Phenergan) 25 mg PO Q6H PRN PRN Reason: Nausea / Vomiting Sodium Chloride (Normal Saline Flush 0.9%) 10 ml IVP PRN PRN PRN Reason: NEEDED PER PROVIDER ORDERS Sodium Chloride (Normal Saline Flush 0.9%) 10 ml IVP 0100,0900,1700 [facility] Last Admin: 05/24/18 02:16 Dose: 10 ml Spironolactone (Aldactone) 100 mg PO DAILY [facility] Sumatriptan Succinate (Imitrex) 100 mg PO Q2H PRN PRN Reason: HEADACHE Trazodone HCl (Desyrel) 300 mg PO QPM [facility] Last Admin: 05/23/18 22:57 Dose: 100 mg Insulin Lispro [Humalog] See Protocol SQ ONCE 10/30/15 Promethazine [Phenergan] 25 mg PO Q6H PRN 10/30/15 clonazePAM [Clonazepam] 1 mg PO TID PRN 10/30/15 oxyCODONE [Roxicodone] 10 mg PO QID PRN 10/30/15 Baclofen 10 mg PO QID 06/03/16 SUMAtriptan [Imitrex] 100 mg PO Q2H PRN MDD 200 MG 06/03/16 Butalb/Acetaminophen/Caffeine [Fioricet 50-300-40 mg Capsule] 1 each PO Q4H PRN 05/22/18 Dextroamphetamine/Amphetamine [Adderall 20 mg Tablet] 20 - 40 mg PO DAILY Duloxetine HCl [Cymbalta] 60 mg PO DAILY 05/22/18 Escitalopram Oxalate [Lexapro] 40 mg PO DAILY 05/22/18 Levothyroxine [Synthroid] 112 mcg PO QDAC 05/22/18 Potassium Citrate [Potassium Citrate ER] 10 meq PO BID 05/22/18 Prazosin HCl 5 mg PO QPM 05/22/18 Simvastatin 20 mg PO QPM 05/22/18 Spironolactone [Aldactone] 100 mg PO DAILY 05/22/18 Trazodone HCl 100 mg PO QPM 05/22/18 Dextroamphetamine/Amphetamine [Adderall 20 mg Tablet] 20 mg PO 1200 05/23/18 Objective - Vital Signs/Intake & Output Reviewed Vital Signs: Yes Vital Signs: Vital Signs x48h Temp Pulse Resp BP Pulse Ox 05/24/18 05:00 37.0 C 73 14 98/56 L 94 05/24/18 01:45 102 H 14 101/54 L 96 Intake & Output: Intake & Output 05/21/18 05/22/18 05/23/18 05/24/18 23:59 23:59 23:59 23:59 Intake Total 1200 1720 240 Output Total 300 900 Balance 900 820 240 - Objective General Appearance: positive: Alert, Moderate distress, Anxious Eyes Bilateral: positive: Normal inspection ENT: positive: ENT inspection nml, Pharynx nml, No signs of dehydration Neck: positive: Nml inspection, Thyroid nml, No JVD Respiratory: positive: Chest non-tender, No respiratory distress, Other ( diminshed) Cardiovascular: positive: Regular rate & rhythm, No gallop, Systolic murmur Peripheral Pulses: 1+ Radial (R), 1+ Radial (L) Abdomen: positive: Tenderness, Guarding, Abnml bowel sounds, Other (obese,soft) Back: positive: Nml inspection Skin: positive: No rash, Warm, Dry Extremities: positive: Non-tender, Full ROM, Pedal edema Neurologic/Psychiatric: positive: Oriented x3, CN's nml (2-12), Motor nml, Sensation nml, Depressed mood/affect Reflexes: Bicep (R): 2+, Bicep (L): 2+ - Lab Results Fish Bones: 05/24/18 23:20 05/24/18 05:21 Other Labs: Lab Results x24hrs 05/24/18 05/24/18 05/24/18 Range/Units 05:21 05:21 05:21 WBC 4.7 L (4.8-10.8) x10^3/uL RBC 3.31 L (4.20-5.40) 10^6/uL Hgb 7.3 L (12.0-16.0) g/dL Hct 24.2 L (37.0-47.0) % MCV 73.1 L (81.0-99.0) fL MCH 22.1 L (27.0-31.0) pg MCHC 30.3 L (32.0-36.0) g/dL RDW 19.2 H (12.0-15.0) % Plt Count 253 (130-450) 10^3/uL MPV 8.3 (7.9-10.8) fL Neut # (Auto) 1.6 (1.5-6.6) 10^3/uL Lymph # (Auto) 2.2 (1.5-3.5) 10^3/uL [place] # (Auto) 0.5 (0.0-1.0) 10^3/uL Eos # (Auto) 0.4 (0.0-0.7) 10^3/uL Baso # (Auto) 0.1 (0.0-0.1) 10^3/uL Absolute Nucleated RBC 0.00 x10^3/uL Nucleated RBC % 0.1 /100WBC Sodium 137 (135-145) mmol/L Potassium 3.5 (3.5-5.0) mmol/L Chloride 106 (101-111) mmol/L Carbon Dioxide 25 (21-32) mmol/L Anion Gap 6.0 (6-13) BUN 5 L (6-20) mg/dL Creatinine 0.6 (0.4-1.0) mg/dL Estimated GFR (MDRD) 108 (>89) Glucose 208 H (70-100) mg/dL POC Whole Bld Glucose (70 - 100) mg/dL Calcium 7.3 L (8.5-10.3) mg/dL Magnesium 2.1 (1.7-2.8) mg/dL Total Bilirubin (0.2-1.0) mg/dL AST (10-42) IU/L ALT (10-60) IU/L Alkaline Phosphatase (42-121) IU/L B-Natriuretic Peptide 76 (5-100) pg/mL Total Protein (6.7-8.2) g/dL Albumin (3.2-5.5) g/dL Globulin (2.1-4.2) g/dL Albumin/Globulin Ratio (1.0-2.2) TSH (0.34-5.60) uIU/mL Urine Sodium mmol/L 05/23/18 05/23/18 05/23/18 Range/Units 21:30 11:25 07:23 WBC (4.8-10.8) x10^3/uL RBC (4.20-5.40) 10^6/uL Hgb (12.0-16.0) g/dL Hct (37.0-47.0) % MCV (81.0-99.0) fL MCH (27.0-31.0) pg MCHC (32.0-36.0) g/dL RDW (12.0-15.0) % Plt Count (130-450) 10^3/uL MPV (7.9-10.8) fL Neut # (Auto) (1.5-6.6) 10^3/uL Lymph # (Auto) (1.5-3.5) 10^3/uL [place] # (Auto) (0.0-1.0) 10^3/uL Eos # (Auto) (0.0-0.7) 10^3/uL Baso # (Auto) (0.0-0.1) 10^3/uL Absolute Nucleated RBC x10^3/uL Nucleated RBC % /100WBC Sodium (135-145) mmol/L Potassium (3.5-5.0) mmol/L Chloride (101-111) mmol/L Carbon Dioxide (21-32) mmol/L Anion Gap (6-13) BUN (6-20) mg/dL Creatinine (0.4-1.0) mg/dL Estimated GFR (MDRD) (>89) Glucose (70-100) mg/dL POC Whole Bld Glucose 118 H 159 H (70 - 100) mg/dL Calcium (8.5-10.3) mg/dL Magnesium (1.7-2.8) mg/dL Total Bilirubin (0.2-1.0) mg/dL AST (10-42) IU/L ALT (10-60) IU/L Alkaline Phosphatase (42-121) IU/L B-Natriuretic Peptide (5-100) pg/mL Total Protein (6.7-8.2) g/dL Albumin (3.2-5.5) g/dL Globulin (2.1-4.2) g/dL Albumin/Globulin Ratio (1.0-2.2) TSH (0.34-5.60) uIU/mL Urine Sodium 24.0 mmol/L 05/23/18 05/23/18 05/23/18 Range/Units 06:54 06:54 06:54 WBC (4.8-10.8) x10^3/uL RBC (4.20-5.40) 10^6/uL Hgb (12.0-16.0) g/dL Hct (37.0-47.0) % MCV (81.0-99.0) fL MCH (27.0-31.0) pg MCHC (32.0-36.0) g/dL RDW (12.0-15.0) % Plt Count (130-450) 10^3/uL MPV (7.9-10.8) fL Neut # (Auto) (1.5-6.6) 10^3/uL Lymph # (Auto) (1.5-3.5) 10^3/uL [place] # (Auto) (0.0-1.0) 10^3/uL Eos # (Auto) (0.0-0.7) 10^3/uL Baso # (Auto) (0.0-0.1) 10^3/uL Absolute Nucleated RBC x10^3/uL Nucleated RBC % /100WBC Sodium 140 (135-145) mmol/L Potassium 4.0 (3.5-5.0) mmol/L Chloride 106 (101-111) mmol/L Carbon Dioxide 27 (21-32) mmol/L Anion Gap 7.0 (6-13) BUN 6 (6-20) mg/dL Creatinine 0.8 (0.4-1.0) mg/dL Estimated GFR (MDRD) 78 L (>89) Glucose 156 H (70-100) mg/dL POC Whole Bld Glucose (70 - 100) mg/dL Calcium 8.1 L (8.5-10.3) mg/dL Magnesium 2.1 (1.7-2.8) mg/dL Total Bilirubin 0.4 (0.2-1.0) mg/dL AST 20 (10-42) IU/L ALT 15 (10-60) IU/L Alkaline Phosphatase 59 (42-121) IU/L B-Natriuretic Peptide 61 (5-100) pg/mL Total Protein 6.3 L (6.7-8.2) g/dL Albumin 3.1 L (3.2-5.5) g/dL Globulin 3.2 (2.1-4.2) g/dL Albumin/Globulin Ratio 1.0 (1.0-2.2) TSH 2.47 (0.34-5.60) uIU/mL Urine Sodium mmol/L 05/23/18 Range/Units 06:54 WBC 4.9 (4.8-10.8) x10^3/uL RBC 3.76 L (4.20-5.40) 10^6/uL Hgb 8.3 L (12.0-16.0) g/dL Hct 27.5 L (37.0-47.0) % MCV 73.3 L (81.0-99.0) fL MCH 22.0 L (27.0-31.0) pg MCHC 30.0 L (32.0-36.0) g/dL RDW 19.0 H (12.0-15.0) % Plt Count 309 (130-450) 10^3/uL MPV 8.1 (7.9-10.8) fL Neut # (Auto) 2.1 (1.5-6.6) 10^3/uL Lymph # (Auto) 1.7 (1.5-3.5) 10^3/uL [place] # (Auto) 0.5 (0.0-1.0) 10^3/uL Eos # (Auto) 0.6 (0.0-0.7) 10^3/uL Baso # (Auto) 0.1 (0.0-0.1) 10^3/uL Absolute Nucleated RBC 0.00 x10^3/uL Nucleated RBC % 0.1 /100WBC Sodium (135-145) mmol/L Potassium (3.5-5.0) mmol/L Chloride (101-111) mmol/L Carbon Dioxide (21-32) mmol/L Anion Gap (6-13) BUN (6-20) mg/dL Creatinine (0.4-1.0) mg/dL Estimated GFR (MDRD) (>89) Glucose (70-100) mg/dL POC Whole Bld Glucose (70 - 100) mg/dL Calcium (8.5-10.3) mg/dL Magnesium (1.7-2.8) mg/dL Total Bilirubin (0.2-1.0) mg/dL AST (10-42) IU/L ALT (10-60) IU/L Alkaline Phosphatase (42-121) IU/L B-Natriuretic Peptide (5-100) pg/mL Total Protein (6.7-8.2) g/dL Albumin (3.2-5.5) g/dL Globulin (2.1-4.2) g/dL Albumin/Globulin Ratio (1.0-2.2) TSH (0.34-5.60) uIU/mL Urine Sodium mmol/L - Diagnostic Imaging Diagnostic Imaging Results: positive: Prelim report reviewed ABX Reporting Has patient been on IV antibiotics over the past 48 hours?: No Assessment/Plan - Problem List (1) GI bleed Impression: The patient has had BRBPR since ~ 4 days, that has been increasing in frequency and volume. She has been able to hold back until making it to the toilet until today when she had a large incontinent episode of marisela blood. She denies previous episodes of rectal bleeding and does not have hemorrhoids. She is in the process of a colonoscopy with EGD with Dr. Neeraj Pemberton today- results are pending. Plan: Continue to monitor for bleeding, monitor labs. Qualifiers: GI bleed type/associated pathology: unspecified gastrointestinal hemorrhage type Qualified Code(s): K92.2 - Gastrointestinal hemorrhage, unspecified (2) DM type 1 (diabetes mellitus, type 1) Impression: The patient has had DM since the age of 2 years. She currently has a personal insulin pump, and performs her own BS checks. A hemoglobin A1C indicates slightly poor control of blood sugars at 7.6%. We are allowing her to manage this with keeping her SQ home insulin pump and blood sugar monitoring device. Plan: Plan for more frequent checks post-procedure. Qualifiers: Diabetes mellitus complication detail: with periodontal disease (3) Opiate dependence Impression: The patient has had multiple surgeries, has osteoporosis, long standing micro and macro vascular complications of her chronic DM. She no longer has her own teeth. She appears much older than stated age. She continues to be prescribed oxycodone, lyrica, baclofen, cymbalta, morphine ER, Imitrex, Fioricet and also Adderall. Plan: Continue to treat acute pain with IV morphine. Qualifiers: Substance use status: with unspecified opioid-induced disorder Qualified Code(s): F11.29 - Opioid dependence with unspecified opioid-induced disorder (4) Chronic pain Impression: The patient has had several years of opioid dependence. A request for a [facility] query has been initiated. Plan: Await reports and continue usual pain management routines. (5) Nausea Impression: The patient has had several months of this and her PCP was just about to see her in the clinic for further investigation on 06/03. Plan: Give anti emetics and await procedure results. (6) Tobacco dependence Impression: The patient admits to a life long history of cigarette use and states that she continues to smoke up to 1 PPD. When arriving to the nursing floor she confronted the nurse about leaving the hospital for a short time to "smoke". In a group effort, she was reminded of our hospital policy which includes discharging her if she removes her self from the building. The choice was given to her, and after some counseling, she decided to stay for the GI work up. She continues to agree to an extended stay if needed. Plan: High dose Nicotine patch was scheduled Q 24 hours. (7) Chronic edema Impression: The patient is prescribed lasix PRN for chronic BLE edema. She can take up to 80 mg PO daily for "pitting edema". She admits to struggling with this lately, and believes for the past 2 weeks something is just not right. Final Echo results are pending, although preliminary testing shows a normal EF of 60%. The cause of her edema may be due to lack of movement. Plan: Continue to elevate extremities and monitor for increased edema.
[2018-05-24] MEDS: SODIUM CHLORIDE FLUSH 0.9% 10 ML SYRINGE IVP PRN ×3 (06:36→19:30)
[2018-05-24] MEDS: LEVOTHYROXINE 112 MCG TABLET PO SCH (06:38)
[2018-05-24] MEDS: PANTOPRAZOLE 40 MG VIAL IVP SCH (06:38)
[2018-05-24] MEDS ORDERED: CALCIUM GLUCONATE 1,000 MG in SODIUM CHLORIDE 0.9% 50 ML IV ONE (07:50)
[2018-05-24] MEDS: DULoxetine 30 MG CAPSULE PO SCH (09:42)
[2018-05-24] MEDS: BACLOFEN 10 MG TABLET PO SCH ×4 (09:43→20:57)
[2018-05-24] MEDS: ESCITALOPRAM 10 MG TABLET PO SCH (09:43)
[2018-05-24] MEDS: FERROUS SULFATE 325 MG TABLET PO SCH ×2 (09:43→16:28)
[2018-05-24] MEDS: NICOTINE 21 MG PATCH TOP SCH (09:43)
[2018-05-24] MEDS: POLYETHYLENE GLYCOL 3350 17 GM PACKET PO SCH (09:44)
[2018-05-24] MEDS: SPIRONOLACTONE 25 MG TABLET PO SCH (09:50)
[2018-05-24] MEDS ORDERED: LORazepam 2 MG/ML VIAL IVP PRN (13:28)
--- NOTE | 2018-05-24 13:31 | PROVIDER PROGRESS NOTE ---
Subjective - Prog Note Date Prog Note Date: 05/24/18 - Subjective Pt reports feeling: Improved Subjective: pt report she did not have more GI rectal bleeding since pt is inpt. she report she feel fatigue. Discussed with pt about blood transfusion of benefit and risk , pt agree to have blood transfusion. She denies fever, chill, cough, chest pain , SOB. Current Medications - Current Medications Current Medications: Active Medications Acetaminophen/Butalbital/Caffeine (Fioricet) 1 tab PO Q4H PRN PRN Reason: HEADACHE Last Admin: 05/24/18 02:25 Dose: 1 tab Atorvastatin Calcium (Lipitor) 10 mg PO QPM [facility] Last Admin: 05/23/18 20:40 Dose: 10 mg Baclofen (Lioresal) 10 mg PO QID [facility] Last Admin: 05/24/18 09:43 Dose: 10 mg Calcium Citrate () 500 mg PO QID [facility] Stop: 05/25/18 09:01 Clonazepam (Klonopin) 1 mg PO TID PRN PRN Reason: Anxiety Last Admin: 05/23/18 20:49 Dose: 1 mg Duloxetine HCl (Cymbalta) 60 mg PO DAILY [facility] Last Admin: 05/24/18 09:42 Dose: 60 mg Escitalopram Oxalate (Lexapro) 40 mg PO DAILY [facility] Last Admin: 05/24/18 09:43 Dose: 40 mg Ferrous Sulfate (Feosol) 325 mg PO BIDWM [facility] Last Admin: 05/24/18 09:43 Dose: 325 mg Dextrose/Sodium Chloride (D5ns) 1,000 mls @ 83.333 mls/hr IV .Q12H [facility] Last Infusion: 05/24/18 10:48 Dose: 0 mls/hr Levothyroxine Sodium (Synthroid) 112 mcg PO QDAC [facility] Last Admin: 05/24/18 06:38 Dose: 112 mcg Lorazepam (Ativan Inj (Vial)) 0.5 mg IVP Q2H PRN PRN Reason: Anxiety Morphine Sulfate (Morphine) 2 mg IVP Q2H PRN PRN Reason: PAIN Last Admin: 05/23/18 16:53 Dose: 2 mg Nicotine (Nicoderm) 1 patch TOP DAILY [facility] Last Admin: 05/24/18 09:43 Dose: 1 patch Oxycodone HCl (Roxicodone) 10 mg PO QID PRN PRN Reason: PAIN Last Admin: 05/24/18 02:26 Dose: 10 mg Pantoprazole Sodium (Protonix) 40 mg IVP QDAC [facility] Last Admin: 05/24/18 06:38 Dose: 40 mg Polyethylene Glycol (Miralax) 17 gm PO DAILY [facility] Last Admin: 05/24/18 09:44 Dose: 17 gm Prazosin HCl (Minipress) 5 mg PO QPM [facility] Last Admin: 05/23/18 20:40 Dose: 5 mg Promethazine HCl (Phenergan) 25 mg PO Q6H PRN PRN Reason: Nausea / Vomiting Sodium Chloride (Normal Saline Flush 0.9%) 10 ml IVP PRN PRN PRN Reason: NEEDED PER PROVIDER ORDERS Last Admin: 05/24/18 06:44 Dose: 10 ml Sodium Chloride (Normal Saline Flush 0.9%) 10 ml IVP 0100,0900,1700 [facility] Last Admin: 05/24/18 09:44 Dose: Not Given Spironolactone (Aldactone) 100 mg PO DAILY [facility] Last Admin: 05/24/18 09:50 Dose: 100 mg Sumatriptan Succinate (Imitrex) 100 mg PO Q2H PRN PRN Reason: HEADACHE Trazodone HCl (Desyrel) 300 mg PO QPM [facility] Last Admin: 05/23/18 22:57 Dose: 100 mg Insulin Lispro [Humalog] See Protocol SQ ONCE 10/30/15 Promethazine [Phenergan] 25 mg PO Q6H PRN 10/30/15 clonazePAM [Clonazepam] 1 mg PO TID PRN 10/30/15 oxyCODONE [Roxicodone] 10 mg PO QID PRN 10/30/15 Baclofen 10 mg PO QID 06/03/16 SUMAtriptan [Imitrex] 100 mg PO Q2H PRN MDD 200 MG 06/03/16 Butalb/Acetaminophen/Caffeine [Fioricet 50-300-40 mg Capsule] 1 each PO Q4H PRN 05/22/18 Dextroamphetamine/Amphetamine [Adderall 20 mg Tablet] 20 - 40 mg PO DAILY Duloxetine HCl [Cymbalta] 60 mg PO DAILY 05/22/18 Escitalopram Oxalate [Lexapro] 40 mg PO DAILY 05/22/18 Levothyroxine [Synthroid] 112 mcg PO QDAC 05/22/18 Potassium Citrate [Potassium Citrate ER] 10 meq PO BID 05/22/18 Prazosin HCl 5 mg PO QPM 05/22/18 Simvastatin 20 mg PO QPM 05/22/18 Spironolactone [Aldactone] 100 mg PO DAILY 05/22/18 Trazodone HCl 100 mg PO QPM 05/22/18 Dextroamphetamine/Amphetamine [Adderall 20 mg Tablet] 20 mg PO 1200 05/23/18 Objective - Vital Signs/Intake & Output Reviewed Vital Signs: Yes Vital Signs: Vital Signs x48h Temp Pulse Resp BP Pulse Ox 05/24/18 10:59 36.8 C 79 16 114/70 99 05/24/18 09:00 37.2 C 78 15 103/52 L 96 05/24/18 06:43 37.0 C 73 14 92/56 L 92 Intake & Output: Intake & Output 05/21/18 05/22/18 05/23/18 05/24/18 23:59 23:59 23:59 23:59 Intake Total 1200 1720 951.108 Output Total 300 900 Balance 900 820 951.108 - Objective General Appearance: positive: No acute distress, Alert. negative: Lethargic Eyes Bilateral: positive: Normal inspection, PERRL, No lid inflammation, Conjunctivae nml ENT: positive: ENT inspection nml, Pharynx nml, No signs of dehydration. negative: Purulent nasal drainage, Pharyngeal erythema, Oral lesions Neck: positive: Nml inspection, Thyroid nml, No JVD, Trachea midline. negative : Thyromegaly, Lymphadenopathy (R), Lymphadenopathy (L), Stiff neck, Carotid bruit, Swelling/bruising, Tracheal deviation Respiratory: positive: Chest non-tender, No respiratory distress, Breath sounds nml. negative: Wheezes, Rales, Rhonchi Cardiovascular: positive: Regular rate & rhythm, No murmur, No gallop. negative : Irregularly irregular, Extrasystoles, Tachycardia, Bradycardia, JVD present, Systolic murmur, Diastolic murmur Peripheral Pulses: 2+ Radial (R), 2+ Radial (L), 2+ Dorsalis pedis (R), 2+ Dorsalis pedis (L) Abdomen: positive: Non-tender, No organomegaly, Nml bowel sounds, No distention. negative: Tenderness, Guarding, Rebound Back: positive: Nml inspection. negative: CVA tenderness (R), CVA tenderness (L ) Skin: positive: Color nml, No rash, Warm, Dry. negative: Cyanosis, Diaphoresis , Pallor Extremities: positive: Non-tender, Full ROM, Nml appearance. negative: Calf tenderness, Joint swelling, Loree's sign/cords Neurologic/Psychiatric: positive: Oriented x3, Motor nml, Sensation nml. negative: Weakness, Sensory loss, Facial droop, Slurred/abnml speech, Depressed mood/affect - Lab Results Fish Bones: 05/24/18 05:21 05/24/18 05:21 Other Labs: Lab Results x24hrs 05/24/18 05/24/18 05/24/18 Range/Units 13:22 13:16 05:21 WBC 4.7 L (4.8-10.8) x10^3/uL RBC 3.31 L (4.20-5.40) 10^6/uL Hgb 7.3 L (12.0-16.0) g/dL Hct 24.2 L (37.0-47.0) % MCV 73.1 L (81.0-99.0) fL MCH 22.1 L (27.0-31.0) pg MCHC 30.3 L (32.0-36.0) g/dL RDW 19.2 H (12.0-15.0) % Plt Count 253 (130-450) 10^3/uL MPV 8.3 (7.9-10.8) fL Neut # (Auto) 1.6 (1.5-6.6) 10^3/uL Lymph # (Auto) 2.2 (1.5-3.5) 10^3/uL [place] # (Auto) 0.5 (0.0-1.0) 10^3/uL Eos # (Auto) 0.4 (0.0-0.7) 10^3/uL Baso # (Auto) 0.1 (0.0-0.1) 10^3/uL Absolute Nucleated RBC 0.00 x10^3/uL Nucleated RBC % 0.1 /100WBC Sodium (135-145) mmol/L Potassium (3.5-5.0) mmol/L Chloride (101-111) mmol/L Carbon Dioxide (21-32) mmol/L Anion Gap (6-13) BUN (6-20) mg/dL Creatinine (0.4-1.0) mg/dL Estimated GFR (MDRD) (>89) Glucose (70-100) mg/dL POC Whole Bld Glucose 188 H 90 (70 - 100) mg/dL Calcium (8.5-10.3) mg/dL Magnesium (1.7-2.8) mg/dL B-Natriuretic Peptide (5-100) pg/mL Urine Sodium mmol/L 05/24/18 05/24/18 05/23/18 Range/Units 05:21 05:21 21:30 WBC (4.8-10.8) x10^3/uL RBC (4.20-5.40) 10^6/uL Hgb (12.0-16.0) g/dL Hct (37.0-47.0) % MCV (81.0-99.0) fL MCH (27.0-31.0) pg MCHC (32.0-36.0) g/dL RDW (12.0-15.0) % Plt Count (130-450) 10^3/uL MPV (7.9-10.8) fL Neut # (Auto) (1.5-6.6) 10^3/uL Lymph # (Auto) (1.5-3.5) 10^3/uL [place] # (Auto) (0.0-1.0) 10^3/uL Eos # (Auto) (0.0-0.7) 10^3/uL Baso # (Auto) (0.0-0.1) 10^3/uL Absolute Nucleated RBC x10^3/uL Nucleated RBC % /100WBC Sodium 137 (135-145) mmol/L Potassium 3.5 (3.5-5.0) mmol/L Chloride 106 (101-111) mmol/L Carbon Dioxide 25 (21-32) mmol/L Anion Gap 6.0 (6-13) BUN 5 L (6-20) mg/dL Creatinine 0.6 (0.4-1.0) mg/dL Estimated GFR (MDRD) 108 (>89) Glucose 208 H (70-100) mg/dL POC Whole Bld Glucose (70 - 100) mg/dL Calcium 7.3 L (8.5-10.3) mg/dL Magnesium 2.1 (1.7-2.8) mg/dL B-Natriuretic Peptide 76 (5-100) pg/mL Urine Sodium 24.0 mmol/L ABX Reporting Has patient been on IV antibiotics over the past 48 hours?: No Assessment/Plan - Problem List (1) GI bleed Impression: (1) GI bleed Conclusion/Plan: pt report she did not have GI rectal bleeding in hospital. pt had EGD and colonoscopy done by surgeon in hospital. No ulcer and bleeding sites were found in GI track per surgeon report. Another bowel study was ordered, will follow up H&H daily lab, vital monitor surgeon advise pt can be d/c as she is stable, no more GI rectal bleeding The patient has had BRBPR since ~ 4 days, that has been increasing in frequency and volume. She has been able to hold back until making it to the toilet until today when she had a large incontinent episode of marisela blood. She denies previous episodes of rectal bleeding and does not have hemorrhoids. Plan: Follow general surgery recommendations which is a colonoscopy in the AM with bowel prep starting tonight. (2) DM type 1 (diabetes mellitus, type 1) Conclusion/Plan: A1C is 7.6, continue ACHS, insulin PRN, hypoglycemia protocol. The patient has had DM since the age of 2 years. She currently has a personal insulin pump, and performs her own BS checks. Plan: Allow patient management of this and monitor closer during procedure times. A1C for the AM. (3) Opiate dependence Conclusion/Plan: continue pain control The patient has had multiple surgeries, has osteoporosis, long standing micro and macro vascular complications of her chronic DM. She no longer has her own teeth. She appears much older than stated age. She continues to be prescribed oxycodone, lyrica, baclofen, cymbalta, morphine ER, Imitrex, Fioricet and also Adderall. Plan: Continue many of these substances, although contraindicated for overall bowel health. Added IV morphine. A [facility] Query is pending. (5) Nausea Conclusion/Plan: The patient has had several months of this and her PCP was just about to see her in the clinic for further investigation on 06/03. Plan: Give anti emetics and the patient will undergo her bowel prep this evening as recommended by general surgery. (6) Tobacco dependence Conclusion/Plan: The patient admits to a life long history of cigarette use and states that she continues to smoke up to 1 PPD. When arriving to the nursing floor she confronted the nurse about leaving the hospital for a short time to "smoke". In a group effort, she was reminded of our hospital policy which includes discharging her if she removes her self from the building. The choice was given to her, and after some counseling, she decided to stay for the GI work up. Plan: High dose Nicotine patch was scheduled Q 24 hours. (7) Chronic edema Conclusion/Plan: The patient is prescribed lasix PRN for chronic BLE edema. She can take up to 80 mg PO daily for "pitting edema". She admits to struggling with this lately, and believes for the past 2 weeks something is just not right. Plan: Echo in the AM to evaluate heart function. (8) anemia HGB 7.3 today, pt present very fatigue. pt agree to have blood transfusion MCV is round 70, begin Ferrous sulf H&H plan D/C after HGB stable (9) illicit drug abuse pt took illicit drugs, advise pt quit Qualifiers: GI bleed type/associated pathology: unspecified gastrointestinal hemorrhage type Qualified Code(s): K92.2 - Gastrointestinal hemorrhage, unspecified
[2018-05-24] MEDS ORDERED: DEXTROSE 50% ABBOJECT 25 GM/50 ML SYRINGE ONE (13:35)
[2018-05-24] MEDS ORDERED: BARIUM SULFATE 397 GM ENEMA PR ONE (14:01)
[2018-05-24] MEDS: clonazePAM 0.5 MG TABLET PO PRN (14:09)
[2018-05-24] MEDS: CALCIUM CITRATE 250 MG TABLET PO SCH ×2 (14:53→19:46)
[2018-05-24] MEDS: MORPHINE 2 MG/ML SYRINGE IVP PRN ×2 (14:53→19:30)
--- NOTE | 2018-05-24 14:53 | XRAY Report ---
Procedure Date: 05/24/2018 Accession Number: [id number] / [id number] Procedure: [place] - Barium Enema w/Air CPT Code: FULL RESULT: EXAM: Barium Enema w/Air DATE: 05/24/2018 1:58 PM CLINICAL HISTORY: lower gi bleeding; incomplete colonoscopy COMPARISON: 09/13/2006 TECHNIQUE: Routine double contrast barium enema. Fluoroscopic exposure time: 3 minutes 20 seconds Number of fluoroscopic images: 4. FINDINGS: Morphology: Normal distention. Redundant sigmoid, unchanged from previous. Mucosa: Normal. No diverticula, masses, or strictures. No filling defects evident. Terminal Ileum: No ileocecal reflux. Other: None. IMPRESSION: Normal barium enema. [facility]
[2018-05-24] MEDS: INSULIN ASPART 300 UNIT/3 ML PEN SUBQ SCH ×2 (17:38→21:00)
--- NOTE | 2018-05-24 18:28 | PROVIDER PROGRESS NOTE ---
Assessment/Plan - Problem List (1) GI bleed Qualifiers: GI bleed type/associated pathology: unspecified gastrointestinal hemorrhage type Qualified Code(s): K92.2 - Gastrointestinal hemorrhage, unspecified Assessment/Plan: No evidence of active GI bleeding; etiology unclear; if rebleeds consider tagged RBC scan. OK for d/c from surgical standpoint. (2) Iron deficiency anemia Qualifiers: Iron deficiency anemia type: unspecified iron deficiency Qualified Code(s) : D50.9 - Iron deficiency anemia, unspecified Assessment/Plan: likely multifactorial, due to bleeding &/or malabsorption; agree with transfusion, iron supplementation, further evaluation as necessary. - Current Meds Current Meds: Current Medications Generic Name Dose Route Start Last Admin Trade Name Freq PRN Reason Stop Dose Admin Acetaminophen/Butalbital/Caffeine 1 tab 05/23/18 16:49 05/24/18 02:25 Fioricet PO 1 tab Q4H PRN Administration HEADACHE Atorvastatin Calcium 10 mg 05/23/18 21:00 05/23/18 20:40 Lipitor PO 10 mg QPM SHELL Administration Baclofen 10 mg 05/22/18 18:00 05/24/18 16:28 Lioresal PO 10 mg QID SHELL Administration Calcium Citrate 500 mg 05/24/18 13:00 05/24/18 14:53 PO 05/25/18 09:01 500 mg QID SHELL Administration Clonazepam 1 mg 05/22/18 17:33 05/24/18 14:09 Klonopin PO 1 mg TID PRN Administration Anxiety Duloxetine HCl 60 mg 05/23/18 09:00 05/24/18 09:42 Cymbalta PO 60 mg DAILY SHELL Administration Escitalopram Oxalate 40 mg 05/23/18 09:00 05/24/18 09:43 Lexapro PO 40 mg DAILY SHELL Administration Ferrous Sulfate 325 mg 05/24/18 08:00 05/24/18 16:28 Feosol PO 325 mg BIDWM SHELL Administration Dextrose/Sodium Chloride 1,000 mls @ 83.333 mls/hr 05/24/18 02:00 05/24/18 16 :33 D5ns IV 0 mls/hr .Q12H SHELL Infusion Insulin Aspart 1 - 5 unit 05/24/18 17:00 05/24/18 17:38 Novolog SUBQ Not Given 0800,1200,1700,2100 [facility] Protocol Levothyroxine Sodium 112 mcg 05/23/18 07:00 05/24/18 06:38 Synthroid PO 112 mcg QDAC SHELL Administration Morphine Sulfate 2 mg 05/22/18 17:35 05/24/18 14:53 Morphine IVP 2 mg Q2H PRN Administration PAIN Nicotine 1 patch 05/22/18 18:00 05/24/18 09:43 Nicoderm TOP 1 patch DAILY SHELL Administration Oxycodone HCl 10 mg 05/22/18 17:33 05/24/18 16:28 Roxicodone PO 10 mg QID PRN Administration PAIN Pantoprazole Sodium 40 mg 05/22/18 18:00 05/24/18 06:38 Protonix IVP 40 mg QDAC SHELL Administration Polyethylene Glycol 17 gm 05/23/18 09:00 05/24/18 09:44 Miralax PO 17 gm DAILY SHELL Administration Prazosin HCl 5 mg 05/23/18 21:00 05/23/18 20:40 Minipress PO 5 mg QPM SHELL Administration Sodium Chloride 10 ml 05/22/18 16:21 05/24/18 06:44 Normal Saline Flush 0.9% IVP 10 ml PRN PRN Administration NEEDED PER PROVIDER ORDERS Sodium Chloride 10 ml 05/22/18 17:00 05/24/18 16:18 Normal Saline Flush 0.9% IVP Not Given 0100,0900,1700 [facility] Spironolactone 100 mg 05/24/18 09:00 05/24/18 09:50 Aldactone PO 100 mg DAILY SHELL Administration Trazodone HCl 300 mg 05/22/18 21:00 05/23/18 22:57 Desyrel PO 100 mg QPM SHELL Administration - Lab Result Fish Bone Diagrams: 05/24/18 05:21 05/24/18 05:21 - Diagnostic Imaging Results Diagnostic Imaging Results: Final report reviewed, Read independently Diagnostic Imaging Results Comments: Air contrast BE showed redundant colon but no other abnormalities. - Additional Planning Condition/Complexity: Stable Plan Discussed with:: Patient Time Spent: 15-30 minutes Subjective - Subjective Patient Reports: Feeling Better, No Complaints (no bleeding per rectum since admission.,) Objective Vital Signs: Vital Signs - 24 hr 05/24/18 05/24/18 05/24/18 14:00 16:02 16:16 Temperature 36.7 C 36.6 C 36.6 C Heart Rate 73 Heart Rate [ 82 73 Brachial] Respiratory 18 18 18 Rate Blood Pressure 105/62 Blood Pressure 111/56 L 105/62 [Left Brachial artery] O2 Saturation 96 95 05/24/18 16:30 Temperature 36.6 C Heart Rate 75 Heart Rate [ Brachial] Respiratory 18 Rate Blood Pressure 108/65 Blood Pressure [Left Brachial artery] O2 Saturation Oxygen O2 Source Room air I&O (Last 24 Hrs): Intake and Output Totals x24h 05/22/18 05/23/18 05/24/18 23:59 23:59 23:59 Intake Total 783.889 Balance 783.889 General: Alert, Oriented x3, Cooperative, No acute distress Abdomen: Normal bowel sounds, Soft, No tenderness - Results Results: Laboratory Results WBC 4.7 x10^3/uL (4.8-10.8) L 05/24/18 05:21 RBC 3.31 10^6/uL (4.20-5.40) L 05/24/18 05:21 Hgb 7.3 g/dL (12.0-16.0) L 05/24/18 05:21 Hct 24.2 % (37.0-47.0) L 05/24/18 05:21 MCV 73.1 fL (81.0-99.0) L 05/24/18 05:21 MCH 22.1 pg (27.0-31.0) L 05/24/18 05:21 MCHC 30.3 g/dL (32.0-36.0) L 05/24/18 05:21 RDW 19.2 % (12.0-15.0) H 05/24/18 05:21 Plt Count 253 10^3/uL (130-450) 05/24/18 05:21 MPV 8.3 fL (7.9-10.8) 05/24/18 05:21 Neut # (Auto) 1.6 10^3/uL (1.5-6.6) 05/24/18 05:21 Lymph # (Auto) 2.2 10^3/uL (1.5-3.5) 05/24/18 05:21 Dickey # (Auto) 0.5 10^3/uL (0.0-1.0) 05/24/18 05:21 Eos # (Auto) 0.4 10^3/uL (0.0-0.7) 05/24/18 05:21 Baso # (Auto) 0.1 10^3/uL (0.0-0.1) 05/24/18 05:21 Absolute Nucleated RBC 0.00 x10^3/uL 05/24/18 05:21 Nucleated RBC % 0.1 /100WBC 05/24/18 05:21 PT 11.4 secs (9.9-12.6) 05/22/18 14:20 INR 1.0 (0.8-1.2) 05/22/18 14:20 Sodium 137 mmol/L (135-145) 05/24/18 05:21 Potassium 3.5 mmol/L (3.5-5.0) 05/24/18 05:21 Chloride 106 mmol/L (101-111) 05/24/18 05:21 Carbon Dioxide 25 mmol/L (21-32) 05/24/18 05:21 Anion Gap 6.0 (6-13) 05/24/18 05:21 BUN 5 mg/dL (6-20) L 05/24/18 05:21 Creatinine 0.6 mg/dL (0.4-1.0) 05/24/18 05:21 Estimated GFR (MDRD) 108 (>89) 05/24/18 05:21 Glucose 208 mg/dL (70-100) H 05/24/18 05:21 POC Whole Bld Glucose 188 mg/dL (70 - 100) H 05/24/18 13:22 Glycated Hemoglobin 7.6 % (4.6-6.2) H 05/22/18 15:23 Estim Average Glucose 171 (70-100) H 05/22/18 15:23 Calcium 7.3 mg/dL (8.5-10.3) L 05/24/18 05:21 Magnesium 2.1 mg/dL (1.7-2.8) 05/24/18 05:21 Total Bilirubin 0.4 mg/dL (0.2-1.0) 05/23/18 06:54 AST 20 IU/L (10-42) 05/23/18 06:54 ALT 15 IU/L (10-60) 05/23/18 06:54 Alkaline Phosphatase 59 IU/L (42-121) 05/23/18 06:54 B-Natriuretic Peptide 76 pg/mL (5-100) 05/24/18 05:21 Total Protein 6.3 g/dL (6.7-8.2) L 05/23/18 06:54 Albumin 3.1 g/dL (3.2-5.5) L 05/23/18 06:54 Globulin 3.2 g/dL (2.1-4.2) 05/23/18 06:54 Albumin/Globulin Ratio 1.0 (1.0-2.2) 05/23/18 06:54 Lipase 20 U/L (22-51) L 05/22/18 14:23 TSH 2.47 uIU/mL (0.34-5.60) 05/23/18 06:54 Urine Color LT. YELLOW 05/22/18 20:35 Urine Clarity CLEAR (CLEAR) 05/22/18 20:35 Urine pH 6.0 PH (5.0-7.5) 05/22/18 20:35 Ur Specific [place] <=1.005 (1.002-1.030) 05/22/18 20:35 Urine Protein NEGATIVE mg/dL (NEGATIVE) 05/22/18 20:35 Urine Glucose (UA) 250 mg/dL (NEGATIVE) H 05/22/18 20:35 Urine Ketones NEGATIVE mg/dL (NEGATIVE) 05/22/18 20:35 Urine Occult Blood NEGATIVE (NEGATIVE) 05/22/18 20:35 Urine Nitrite NEGATIVE (NEGATIVE) 05/22/18 20:35 Urine Bilirubin NEGATIVE (NEGATIVE) 05/22/18 20:35 Urine Urobilinogen 0.2 (NORMAL) E.U./dL (NORMAL) 05/22/18 20:35 Ur Leukocyte Esterase NEGATIVE (NEGATIVE) 05/22/18 20:35 Ur Microscopic Review NOT INDICATED 05/22/18 20:35 Urine Culture Comments NOT INDICATED 05/22/18 20:35 Urine Sodium 24.0 mmol/L 05/23/18 21:30 Urine Opiates Screen POSITIVE (NEGATIVE) H 05/22/18 20:35 Ur Oxycodone Screen NEGATIVE (NEGATIVE) 05/22/18 20:35 Urine Methadone Screen NEGATIVE (NEGATIVE) 05/22/18 20:35 Ur Propoxyphene Screen NEGATIVE (NEGATIVE) 05/22/18 20:35 Ur Barbiturates Screen POSITIVE (NEGATIVE) H 05/22/18 20:35 Ur Tricyclics Screen NEGATIVE (NEGATIVE) 05/22/18 20:35 Ur Phencyclidine Scrn NEGATIVE (NEGATIVE) 05/22/18 20:35 Ur Amphetamine Screen POSITIVE (NEGATIVE) H 05/22/18 20:35 U Methamphetamines Scrn NEGATIVE (NEGATIVE) 05/22/18 20:35 U Benzodiazepines Scrn POSITIVE (NEGATIVE) H 05/22/18 20:35 Urine Cocaine Screen NEGATIVE (NEGATIVE) 05/22/18 20:35 U Cannabinoids Screen NEGATIVE (NEGATIVE) 05/22/18 20:35 Blood Type B POSITIVE 05/22/18 15:23 Blood Type Recheck B POSITIVE 05/22/18 14:20 Antibody Screen NEGATIVE 05/22/18 15:23 Crossmatch IS Only See Detail 05/22/18 15:23 ABX Reporting Has patient been on IV antibiotics over the past 48 hours?: No
[2018-05-24] MEDS: ATORVASTATIN 10 MG TABLET PO SCH (20:57)
[2018-05-24] MEDS: PRAZOSIN 1 MG CAPSULE PO SCH (20:58)
[2018-05-25 00:01] LABS: HGB - HEMOGLOBIN 9.4 g/dL (12.0-16.0)
[2018-05-25] MEDS: oxyCODONE 5 MG TABLET PO PRN (00:38)
[2018-05-25] MEDS ORDERED: SUCRALFATE 1 GM/10 ML UDC PO PRN (00:52)
[2018-05-25] MEDS: DEXTROSE 5%-0.9% NACL 1,000 ML IV SCH (00:54)
[2018-05-25] MEDS: CALCIUM CITRATE 250 MG TABLET PO SCH ×2 (01:28→08:59)
[2018-05-25] MEDS: SODIUM CHLORIDE FLUSH 0.9% 10 ML SYRINGE IVP SCH ×2 (01:32→07:18)
[2018-05-25] MEDS: PANTOPRAZOLE 40 MG VIAL IVP SCH (06:55)
[2018-05-25] MEDS: LEVOTHYROXINE 112 MCG TABLET PO SCH (07:26)
[2018-05-25] MEDS: INSULIN ASPART 300 UNIT/3 ML PEN SUBQ SCH (08:46)
[2018-05-25] MEDS: SPIRONOLACTONE 25 MG TABLET PO SCH (08:58)
[2018-05-25] MEDS: ESCITALOPRAM 10 MG TABLET PO SCH (08:58)
[2018-05-25] MEDS: DULoxetine 30 MG CAPSULE PO SCH (08:58)
[2018-05-25] MEDS: BACLOFEN 10 MG TABLET PO SCH (08:59)
[2018-05-25] MEDS: POLYETHYLENE GLYCOL 3350 17 GM PACKET PO SCH (08:59)
[2018-05-25] MEDS: NICOTINE 21 MG PATCH TOP SCH (08:59)
[2018-05-25] MEDS: FERROUS SULFATE 325 MG TABLET PO SCH (09:00)
--- NOTE | 2018-05-25 09:22 | Discharge Plan ---
Discharge Plan Disposition: Home, Self Care Condition: Poor Prescriptions: Ferrous Sulfate 325 mg PO DAILY #20 tablet Diet: Regular Activity Restrictions: Activity as Tolerated Shower Restrictions: No (fall precaution) Weight Bearing: Full Weight Instruction Topics: Anemia Iron Deficiency Ch, Iron tablets capsules extended- release tablets Additional Instructions or Follow Up instructions: You may follow up your PCP in one week. Should your symptoms return or worsen, you may present ER or call 911 for help. No Smoking: If you smoke, Please STOP! Call for help. Follow-up with: Isatu Belle MD [Primary Care Provider] -
--- NOTE | 2018-05-25 09:28 | DISCHARGE SUMMARY ---
Discharge Summary Discharge Date: 05/25/18 Discharging Provider: SIDDIQUI Primary Care Provider: Dr. Isatu Veliz Condition at Discharge: Poor Discharge Disposition: 01 Home, Self Care Discharge Facility Name: home - DIAGNOSES Admission Diagnoses: (1) GI bleed (2) DM type 1 (diabetes mellitus, type 1) (3) Opiate dependence (4) Nausea (5) Tobacco dependence (6) Chronic edema Discharge Diagnoses with Status of Each Condition: (1) GI bleed no more GI bleed. Surgeon could not find significant findings in EGD and colonoscopy to explain pt's symptom. pt had blood transfusion in hospital. pt is advised if bleeding again, seek medical intervention immediately, pt state she will. Pt is also advised to follow up GI doctor as out-pt pt request strongly to be d/c to home today, and no more further evaluation or treatment to her. (2) DM type 1 (diabetes mellitus, type 1) stable, continue to be managed by PCP (3) Opiate dependence consult with pt and advise pt quit (4) Nausea resolved (5) Tobacco dependence advise pt quit tobacco smoking (6) Chronic edema stable, continue to be managed by PCP (7) anemia transfusion of two units of blood, HGB 9.4. No blood transfusion events. pt state she feel much better. Ferrous sulf is prescribed to pt (8) illicit drug abuse advise pt quit - HPI History of Present Illness: refer from Ms. 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 She presented to the ED with complaints of GI bleeding that began on (05/19). It started out as a controlled small amount and gradually increased by volume and frequency. Prior to admission today, the patient had uncontrolled, incontinent bleeding from her rectum, which she notes as a large amount, accompanied with low abdominal cramping, pain and dizziness. She also has had ongoing nausea for the past few months and admits to very little oral intake. If she becomes hungry, it is usual in the evening. She has also had issues with fluid balance and states that she takes Lasix as needed, depending on her BLE edema. She believes she has had intermittent fevers, and reports that her "normal is 97 F, but she was up to 99 F yesterday". She also admits to chills, shortness of breath linked to fluid balance issues and relentless nausea. She talks about her PCP looking further into her constant nausea and had an appointment on 06/03/18 for this. Lab results show a normal WBC count, hemoglobin of 8.1, hematocrit of 26.6, a low MCV of 72.3, low sodium of 132, potassium of 3.4, with no other abnormalities. Preliminary imaging showed free fluid in the pelvic cavity. General surgery, Neeraj Pemberton was consulted and will plan for a colonoscopy in the AM with bowel prep this evening. - HOSPITAL COURSE Hospital Course: pt had once of pre-syncope in image study room. At the time pt was hemdynamically stable, and return to pt's baseline quickly. it was considered pt had severe anemia at the time. Anemia was correct after transfusion. no more events happened. - ALLERGIES Allergies/Adverse Reactions: Allergies Allergy/AdvReac Type Severity Reaction Status Date / Time carisoprodol [From Soma] Allergy Unknown Verified 12/23/17 20:27 cyclobenzaprine HCl * Allergy Edema Verified 12/23/17 20:27 [From Flexeril] divalproex sodium Allergy Rash Verified 12/23/17 20:27 [From Depakote] gabapentin [From Neurontin] Allergy Edema Verified 12/23/17 20:27 lidocaine Allergy Unknown Verified 12/23/17 20:27 nitrofurantoin Allergy Rash Verified 12/23/17 20:27 macrocrystalline * [From Macrodantin] nortriptyline Allergy Unknown Verified 12/23/17 20:27 ondansetron HCl * Allergy Hives Verified 12/23/17 20:27 [From Zofran (as hydrochloride)] pregabalin [From Lyrica] Allergy Headache Verified 12/23/17 20:27 - MEDICATIONS Home Medications: Ambulatory Orders Medication Instructions Recorded Confirmed Insulin Lispro [Humalog] See Protocol SQ ONCE 10/30/15 05/23/18 Promethazine [Phenergan] 25 mg PO Q6H PRN 10/30/15 05/22/18 clonazePAM [Clonazepam] 1 mg PO TID PRN 10/30/15 05/22/18 oxyCODONE [Roxicodone] 10 mg PO QID PRN 10/30/15 05/22/18 Baclofen 10 mg PO QID 06/03/16 05/22/18 SUMAtriptan [Imitrex] 100 mg PO Q2H PRN MDD 200 MG 06/03/16 05/22/18 Butalb/Acetaminophen/Caffeine 1 each PO Q4H PRN 05/22/18 05/22/18 [Fioricet 50-300-40 mg Capsule] Dextroamphetamine/Amphetamine 20 - 40 mg PO DAILY 05/22/18 05/23/18 [Adderall 20 mg Tablet] Duloxetine HCl [Cymbalta] 60 mg PO DAILY 05/22/18 05/22/18 Escitalopram Oxalate [Lexapro] 40 mg PO DAILY 05/22/18 05/22/18 Levothyroxine [Synthroid] 112 mcg PO QDAC 05/22/18 05/22/18 Potassium Citrate [Potassium 10 meq PO BID 05/22/18 05/22/18 Citrate ER] Prazosin HCl 5 mg PO QPM 05/22/18 05/22/18 Simvastatin 20 mg PO QPM 05/22/18 05/22/18 Spironolactone [Aldactone] 100 mg PO DAILY 05/22/18 05/22/18 Trazodone HCl 100 mg PO QPM 05/22/18 05/23/18 Dextroamphetamine/Amphetamine 20 mg PO 1200 05/23/18 05/23/18 [Adderall 20 mg Tablet] Ferrous Sulfate 325 mg PO DAILY #20 tablet 05/25/18 - PHYSICAL EXAM AT DISCHARGE General Appearance: positive: No acute distress, Alert. negative: Lethargic Eyes Bilateral: positive: Normal inspection, PERRL, No lid inflammation, Conjunctivae nml ENT: positive: ENT inspection nml, Pharynx nml, No signs of dehydration. negative: Purulent nasal drainage, Pharyngeal erythema, Oral lesions Neck: positive: Nml inspection, Thyroid nml, No JVD, Trachea midline. negative : Thyromegaly, Lymphadenopathy (R), Lymphadenopathy (L), Stiff neck, Carotid bruit, Swelling/bruising, Tracheal deviation Respiratory: positive: Chest non-tender, No respiratory distress, Breath sounds nml. negative: Wheezes, Rales, Rhonchi Cardiovascular: positive: Regular rate & rhythm, No murmur, No gallop. negative : Irregularly irregular, Extrasystoles, Tachycardia, Bradycardia, JVD present, Systolic murmur, Diastolic murmur Peripheral Pulses: positive: 2+ Abdomen: positive: Non-tender, No organomegaly, Nml bowel sounds, No distention. negative: Tenderness, Guarding, Rebound Back: positive: Nml inspection. negative: CVA tenderness (R), CVA tenderness (L ) Skin: positive: Color nml, No rash, Warm, Dry. negative: Cyanosis, Diaphoresis , Pallor Extremities: positive: Non-tender, Full ROM, Nml appearance. negative: Calf tenderness, Joint swelling, Loree's sign/cords Neurologic/Psychiatric: positive: Oriented x3, Motor nml, Sensation nml, Mood/ affect nml. negative: Weakness, Sensory loss, Facial droop, Slurred/abnml speech, Depressed mood/affect - LABS Result Diagrams: 05/24/18 23:20 05/24/18 05:21 - FOLLOW UP Follow Up: You may follow up your PCP in one week, follow up gastroenterologiest as out- pt. Should your symptoms return or worsen, you may present ER or call 911 for help. - TIME SPENT Time Spent in Discharge (Minutes): 50
[2018-05-25 09:54] VITALS: BP 111/68
== END 2018-05-25 10:28 | disposition home or self-care (01) | DRG 378 ==
LOC: ED 13:45 → OBS 16:21 → OBSVTOIN 05-24 13:25 → MS2 05-24 14:36
PROVIDERS: ADMIT Nurse Practitioner; ATTEND Nurse Practitioner Gerontology
PROC: 0DB68ZX Excision of Stomach, Via Natural or Artificial Opening Endoscopic, Diagnostic (ICD-10-PCS; principal; 2018-05-23 12:30)
PROC: 0DJD8ZZ Inspection of Lower Intestinal Tract, Via Natural or Artificial Opening Endoscopic (ICD-10-PCS; 2018-05-23 12:30)
PROC: 30233N1 Transfusion of Nonautologous Red Blood Cells into Peripheral Vein, Percutaneous Approach (ICD-10-PCS; 2018-05-24)
DX: K92.1 Melena (principal); F11.20 Opioid dependence, uncomplicated; G40.509 Epileptic seizures related to external causes, not intractable, without status epilepticus; F11.288 Opioid dependence with other opioid-induced disorder; R10.30 Lower abdominal pain, unspecified; Q43.8 Other specified congenital malformations of intestine; R11.0 Nausea; K21.9 Gastro-esophageal reflux disease without esophagitis; D50.9 Iron deficiency anemia, unspecified; K59.03 Drug induced constipation; T50.905A Adverse effect of unspecified drugs, medicaments and biological substances, initial encounter; R60.0 Localized edema; R55 Syncope and collapse; E78.00 Pure hypercholesterolemia, unspecified; F11.24 Opioid dependence with opioid-induced mood disorder; E03.9 Hypothyroidism, unspecified; F43.10 Post-traumatic stress disorder, unspecified; G89.4 Chronic pain syndrome; E10.42 Type 1 diabetes mellitus with diabetic polyneuropathy; R41.3 Other amnesia; R41.89 Other symptoms and signs involving cognitive functions and awareness; S06.1X Traumatic cerebral edema; M54.9 Dorsalgia, unspecified; E10.65 Type 1 diabetes mellitus with hyperglycemia; E00-E89 Endocrine, nutritional and metabolic diseases; E50.9 Vitamin A deficiency, unspecified; E53.8 Deficiency of other specified B group vitamins; M25.512 Pain in left shoulder; M54.2 Cervicalgia; M79.672 Pain in left foot; M79.7 Fibromyalgia; M19.90 Unspecified osteoarthritis, unspecified site; K76.0 Fatty (change of) liver, not elsewhere classified; F90.9 Attention-deficit hyperactivity disorder, unspecified type; F31.9 Bipolar disorder, unspecified; G43.909 Migraine, unspecified, not intractable, without status migrainosus; Z87.11 Personal history of peptic ulcer disease; Z98.84 Bariatric surgery status; Z87.440 Personal history of urinary (tract) infections; Z91.410 Personal history of adult physical and sexual abuse; Z96.41 Presence of insulin pump (external) (internal); M81.0 Age-related osteoporosis without current pathological fracture; E10.51 Type 1 diabetes mellitus with diabetic peripheral angiopathy without gangrene; Z79.899 Other long term (current) drug therapy; F17.210 Nicotine dependence, cigarettes, uncomplicated
CPT/HCPCS: 43239; 45378; G0378; 36415; 74177; 74280; 80048; 80053; 80306; 81001; 81003; 82270; 83036; 83690; 83735; 83880; 84300; 84443; 85014; 85018; 85025; 85610; 86850; 86900; 86901; 86920; 87081; 87086; 93306; 96361; 96365; 96375; 96376; 99284

== ENCOUNTER 2018-07-05 12:40 | Outpatient (CLI) | payer MEDICARE, MEDICAID ==
--- NOTE | 2018-07-05 13:24 | XRAY Report ---
Procedure Date: 07/05/2018 Accession Number: [id number] / [id number] Procedure: XR - Hand 3 View RT CPT Code: FULL RESULT: EXAM: RIGHT HAND RADIOGRAPHY EXAM DATE: 07/05/2018 01:13 PM. CLINICAL HISTORY: Chronic right hand pain, greatest second MCP joint. No known trauma. COMPARISON: Hand 3 view bilateral 10/17/2014. TECHNIQUE: 3 views. FINDINGS: Bones: Mature deformity involving the proximal metaphysis third distal phalanx as well as the distal metaphysis fifth metacarpal due to old fractures. Trabecular and cortical patterns are intact. Joints: Normal. No subluxations. Soft Tissues: Normal. No soft tissue calcification nor swelling. IMPRESSION: Normal hand radiography. [facility]
== END 2018-07-05 12:41 | disposition home or self-care (01) ==
LOC: DI 12:40
PROVIDERS: ATTEND Internal Medicine
DX: M79.641 Pain in right hand (principal)

== ENCOUNTER 2018-07-21 13:41 | Emergency (ER) | payer MEDICARE, MEDICAID ==
[2018-07-21] MEDS ORDERED: SODIUM CHLORIDE 0.9% 1,000 ML IV ONE (14:28)
--- NOTE | 2018-07-21 14:30 | ED Physician Documentation ---
History of Present Illness - Stated complaint Stated Complaint: FM /WEAKNESS/VOMITING - Chief complaint Chief Complaint: Abd Pain - Additonal information Additional information: hx from pt 43 f pmhx T1DM HLD thyroid seizures among others admitted last month for GI bleed states she had upper lower scopes and no source found also barium enema (normal) and CT scan (no acute s/p gastric bypass, atrophied pancreas) had transfusion has been referred to GI now she has same sx again - [place] watery diarrhea with blood states cannot digest food - pills and food pass in stool undigested no fever migratory abd pain no prior surgery except kidney stones and gastric bypass Review of Systems Constitutional: denies: Fever, Chills Cardiac: denies: Chest pain / pressure Respiratory: denies: Dyspnea GI: reports: Abdominal Pain, Nausea, Vomiting, Diarrhea, Bloody / black stool : denies: Dysuria (not new) Neurologic: reports: Generalized weakness Endocrine: denies: Easy bruising / bleeding Immunocompromised: denies: Immunocompromised PD PAST MEDICAL HISTORY - Past Medical History Cardiovascular: High cholesterol, Murmur Respiratory: Shortness of breath Neuro: Headaches, Seizure disorder (related to hypoglycemia), Other (blunt force trauma- residual frontal lobe damage consequently has STM loss, difficulty focusing.) Endocrine/Autoimmune: Type 1 diabetes (patient has own insulin pump with glucose monitor, BG 70), HyPOthyroidism GI: GERD, Ulcers, Other (hx fatty liver, ongoing nausea, possible gastroparesis. 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 (uterine ablation, bilateral tubal ligation) : Kidney stones, Other (frequent UTI) HEENT: Chronic vision loss, Chronic sinusitis Psych: Depression, Anxiety, Bipolar disorder, ADD/ADHD, Post traumatic stress disorder, Other (substance abuse) Musculoskeletal: Osteoarthritis, Fibromyalgia, Fatigue, Chronic back pain - Past Surgical History Past Surgical History: Yes General: Gastric surgery, Other (abdominal reconstruction, ventral hernia repair ) Ortho: Rotator cuff repair, Other /PULLBOAT ENGINEER: section (x2), Endometrial ablation, Tubal ligation - Present Medications Home Medications: Ambulatory Orders Medication Instructions Recorded Confirmed Insulin Lispro [Humalog] See Protocol SQ ONCE 10/30/15 05/23/18 Promethazine [Phenergan] 25 mg PO Q6H PRN 10/30/15 05/22/18 clonazePAM [Clonazepam] 1 mg PO TID PRN 10/30/15 05/22/18 oxyCODONE [Roxicodone] 10 mg PO QID PRN 10/30/15 05/22/18 Baclofen 10 mg PO QID 06/03/16 05/22/18 SUMAtriptan [Imitrex] 100 mg PO Q2H PRN MDD 200 MG 06/03/16 05/22/18 Butalb/Acetaminophen/Caffeine 1 each PO Q4H PRN 05/22/18 05/22/18 [Fioricet 50-300-40 mg Capsule] Dextroamphetamine/Amphetamine 20 - 40 mg PO DAILY 05/22/18 05/23/18 [Adderall 20 mg Tablet] Duloxetine HCl [Cymbalta] 60 mg PO DAILY 05/22/18 05/22/18 Escitalopram Oxalate [Lexapro] 40 mg PO DAILY 05/22/18 05/22/18 Levothyroxine [Synthroid] 112 mcg PO QDAC 05/22/18 05/22/18 Potassium Citrate [Potassium 10 meq PO BID 05/22/18 05/22/18 Citrate ER] Prazosin HCl 5 mg PO QPM 05/22/18 05/22/18 Simvastatin 20 mg PO QPM 05/22/18 05/22/18 Spironolactone [Aldactone] 100 mg PO DAILY 05/22/18 05/22/18 Trazodone HCl 100 mg PO QPM 05/22/18 05/23/18 Dextroamphetamine/Amphetamine 20 mg PO 1200 05/23/18 05/23/18 [Adderall 20 mg Tablet] Ferrous Sulfate 325 mg PO DAILY #20 tablet 05/25/18 - Allergies Allergies/Adverse Reactions: Allergies Allergy/AdvReac Type Severity Reaction Status Date / Time carisoprodol [From Soma] Allergy Unknown Verified 12/23/17 20:27 cyclobenzaprine HCl * Allergy Edema Verified 12/23/17 20:27 [From Flexeril] divalproex sodium Allergy Rash Verified 12/23/17 20:27 [From Depakote] gabapentin [From Neurontin] Allergy Edema Verified 12/23/17 20:27 lidocaine Allergy Unknown Verified 12/23/17 20:27 nitrofurantoin Allergy Rash Verified 12/23/17 20:27 macrocrystalline * [From Macrodantin] nortriptyline Allergy Unknown Verified 12/23/17 20:27 ondansetron HCl * Allergy Hives Verified 12/23/17 20:27 [From Zofran (as hydrochloride)] pregabalin [From Lyrica] Allergy Headache Verified 12/23/17 20:27 - Social History Does the pt smoke?: Yes Smoking Status: Current every day smoker Does the pt drink ETOH?: No Does the pt have substance abuse?: No - Immunizations Immunizations are current?: Yes Immunizations: TDAP >10years/unknown - POLST Patient has POLST: No POLST Status: Full Code PD ED PE NORMAL - Vitals Vital signs reviewed: Yes - Neck Neck: Supple, no meningeal sign - Cardiac Cardiac: RRR - Respiratory Respiratory: No respiratory distress, Clear bilaterally - Abdomen Abdomen: Soft, Other (mild lower abd TTP) - Rectal Rectal: Other (no stool in vault - occult blood neg, QC passed) - Derm Derm: Other (little pale) - Neuro Neuro: Alert and oriented X 3 Results - Vitals Vitals: Vital Signs - 24 hr 07/21/18 07/21/18 13:51 15:09 Temperature 36.7 C 36.9 C Heart Rate 85 59 L Respiratory 16 18 Rate Blood Pressure 97/70 95/61 O2 Saturation 97 97 Oxygen O2 Source Room air - Labs Labs: Laboratory Tests 07/21/18 07/21/18 07/21/18 14:40 14:40 14:40 WBC 6.0 RBC 4.42 Hgb 11.5 L Hct 35.3 L MCV 79.7 L MCH 26.0 L MCHC 32.6 RDW 22.7 H Plt Count 200 MPV 9.1 Neut # (Auto) 2.9 Lymph # (Auto) 2.1 [place] # (Auto) 0.4 Eos # (Auto) 0.6 Baso # (Auto) 0.0 Absolute Nucleated RBC 0.00 Nucleated RBC % 0.0 Manual Slide Review Indicated WBC Morphology NORMAL APPEARANCE Platelet Estimate NORMAL (130-450,000) Platelet Morphology NORMAL APPEARANCE RBC Morph Micro Appear 2+ ANISOCYTOSIS Sodium 137 Potassium 4.0 Chloride 105 Carbon Dioxide 26 Anion Gap 6.0 BUN 6 Creatinine 0.8 Estimated GFR (MDRD) 78 L Glucose 111 H Calcium 8.6 Serum HCG, Qual NEGATIVE PD MEDICAL DECISION MAKING - ED course ED course: occult blood neg on rectal in ED (no stool to test), labs fine, gave IVF, has already had scopes and has GI fup - Sepsis Event Vital Signs: Vital Signs - 24 hr 07/21/18 07/21/18 13:51 15:09 Temperature 36.7 C 36.9 C Heart Rate 85 59 L Respiratory 16 18 Rate Blood Pressure 97/70 95/61 O2 Saturation 97 97 Oxygen O2 Source Room air Departure - Departure Disposition: 01 Home, Self Care Clinical Impression: Vomiting, Diarrhea, GI bleed Condition: Good Instructions: ED Diet Vomiting Diarrhea Follow-Up: Isatu Belle MD [Primary Care Provider] - Comments: There was no blood on rectal exam today (it can be intermittent) Your hemoglobin is up to 11.5 much better than when you were discharged. Your electrolytes are fine today So I don't think you need to be admitted right now. Think it is safe for you to go home and follow up with the GI specialist you have been referred to If your PMD has not yet run cultures for bacteria and parasites on a stool sample, I would suggest discussing that. Return if worse - you don't need to be admitted today but things can change management specialist time and if you get worse we would want to see you again
[2018-07-21 14:57] LABS: BASOPHILS % (AUTO) 0.5 %; EOSINOPHILS # (AUTO) 0.6 10^3/uL (0.0-0.7); EOSINOPHILS % (AUTO) 10.2 %; HGB - HEMOGLOBIN 11.5 g/dL (12.0-16.0); LYMPHOCYTES # (AUTO) 2.1 10^3/uL (1.5-3.5); LYMPHOCYTES % (AUTO) 35.4 %; MEAN CORPUSCULAR HGB CONC 32.6 g/dL (32.0-36.0); MEAN CORPUSCULAR VOLUME 79.7 fL (81.0-99.0); MEAN PLATELET VOLUME 9.1 fL (7.9-10.8); MONOCYTES # (AUTO) 0.4 10^3/uL (0.0-1.0); MONOCYTES % (AUTO) 6.4 %; NEUTROPHILS # (AUTO) 2.9 10^3/uL (1.5-6.6); NEUTROPHILS % (AUTO) 47.5 %; PLT - PLATELET COUNT 200 10^3/uL (130-450); RED BLOOD COUNT 4.42 10^6/uL (4.20-5.40); RED CELL DISTRIBUTION WIDTH 22.7 % (12.0-15.0)
[2018-07-21 15:03] LABS: CALCIUM 8.6 mg/dL (8.5-10.3); CREATININE 0.8 mg/dL (0.4-1.0)
[2018-07-21 15:10] VITALS: BP 95/61
[2018-07-21 15:19] LABS: PLATELET ESTIMATE, MANUAL NORMAL (130-450,000) (NORMAL); PLATELET MORPHOLOGY NORMAL APPEARANCE (NORMAL); RBC MORPHOLOGY (MULTIPLE) 2+ ANISOCYTOSIS (NORMAL)
[2018-07-21 15:45] LABS: HCG,QUALITATIVE BLOOD NEGATIVE
[2018-07-21] MEDS ORDERED: diltiaZEM INJ 5 MG/ML VIAL ONE (20:20)
== END 2018-07-21 16:31 | disposition home or self-care (01) ==
LOC: ED 13:41
DX: R11.10 Vomiting, unspecified (principal); K92.2 Gastrointestinal hemorrhage, unspecified; R19.7 Diarrhea, unspecified; E10.8 Type 1 diabetes mellitus with unspecified complications; F17.200 Nicotine dependence, unspecified, uncomplicated; Z96.41 Presence of insulin pump (external) (internal)
CPT/HCPCS: 36415; 80048; 84703; 85025; 96360; 99282; 99283

== ENCOUNTER 2018-08-12 09:13 | Emergency (ER) | payer MEDICARE, MEDICAID ==
[2018-08-12 11:56] LABS: BASOPHILS # (AUTO) 0.1 10^3/uL (0.0-0.1); BASOPHILS % (AUTO) 1.2 %; EOSINOPHILS # (AUTO) 0.4 10^3/uL (0.0-0.7); EOSINOPHILS % (AUTO) 7.9 %; HGB - HEMOGLOBIN 11.2 g/dL (12.0-16.0); LYMPHOCYTES # (AUTO) 1.6 10^3/uL (1.5-3.5); LYMPHOCYTES % (AUTO) 32.9 %; MEAN CORPUSCULAR HEMOGLOBIN 27.6 pg (27.0-31.0); MEAN CORPUSCULAR HGB CONC 33.4 g/dL (32.0-36.0); MEAN CORPUSCULAR VOLUME 82.6 fL (81.0-99.0); MEAN PLATELET VOLUME 8.5 fL (7.9-10.8); MONOCYTES # (AUTO) 0.4 10^3/uL (0.0-1.0); NEUTROPHILS # (AUTO) 2.5 10^3/uL (1.5-6.6); PLT - PLATELET COUNT 261 10^3/uL (130-450); RED BLOOD COUNT 4.06 10^6/uL (4.20-5.40)
[2018-08-12 12:03] LABS: ALBUMIN 3.7 g/dL (3.2-5.5); ALBUMIN/GLOBULIN RATIO 1.2 (1.0-2.2); BILIRUBIN,TOTAL 0.4 mg/dL (0.2-1.0); CALCIUM 8.5 mg/dL (8.5-10.3); CREATININE 0.8 mg/dL (0.4-1.0); TOTAL PROTEIN 6.7 g/dL (6.7-8.2)
--- NOTE | 2018-08-12 13:31 | ED Physician Documentation ---
PD HPI ABD PAIN - Stated complaint Stated Complaint: SIDE PX/SZ - Chief complaint Chief Complaint: Abd Pain - History obtained from History obtained from: Patient - History of Present Illness Timing - onset: Other (43-year-old woman with long-standing type 1 diabetes, gastroparesis, fibromyalgia. She became sick about 3 days ago with vomiting and diarrhea and then developed back pain and pelvic pain similar prior pyelonephritis yesterday. She had a fever to 101.2 yesterday. She is not vomiting now but she just feels empty. She denies any urinary complaints though. She checked in with a complaint of seizure, when I inquired about this she said her legs were weak and she has not actually had a seizure in several months.) - Treatment prior to arrival Treatment prior to arrival: She started Cipro that she had on hand yesterday without improvement. She says in the past when Cipro does not work Bactrim works better. Review of Systems Constitutional: reports: Fever, Chills, Fatigue Cardiac: denies: Chest pain / pressure, Palpitations Respiratory: denies: Dyspnea, Cough PD PAST MEDICAL HISTORY - Past Medical History Cardiovascular: High cholesterol, Murmur Respiratory: Shortness of breath Neuro: Headaches, Seizure disorder (related to hypoglycemia), Other (blunt force trauma- residual frontal lobe damage consequently has STM loss, difficulty focusing.) Endocrine/Autoimmune: Type 1 diabetes (patient has own insulin pump with glucose monitor, BG 70), HyPOthyroidism GI: GERD, Ulcers, Other (hx fatty liver, ongoing nausea, possible gastroparesis.) 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 (uterine ablation, bilateral tubal ligation) : Kidney stones, Other (frequent UTI) HEENT: Chronic vision loss, Chronic sinusitis Psych: Depression, Anxiety, Bipolar disorder, ADD/ADHD, Post traumatic stress disorder, Other (substance abuse) Musculoskeletal: Osteoarthritis, Fibromyalgia, Fatigue, Chronic back pain - Past Surgical History Past Surgical History: Yes General: Gastric surgery, Other (abdominal reconstruction, ventral hernia repair) Ortho: Rotator cuff repair, Other /SUPERVISOR COOPERAGE SHOP: section (x2), Endometrial ablation, Tubal ligation - Present Medications Home Medications: Ambulatory Orders Medication Instructions Recorded Confirmed Insulin Lispro [Humalog] See Protocol SQ ONCE 10/30/15 05/23/18 Promethazine [Phenergan] 25 mg PO Q6H PRN 10/30/15 05/22/18 clonazePAM [Clonazepam] 1 mg PO TID PRN 10/30/15 05/22/18 oxyCODONE [Roxicodone] 10 mg PO QID PRN 10/30/15 05/22/18 Baclofen 10 mg PO QID 06/03/16 05/22/18 SUMAtriptan [Imitrex] 100 mg PO Q2H PRN MDD 200 MG 06/03/16 05/22/18 Butalb/Acetaminophen/Caffeine 1 each PO Q4H PRN 05/22/18 05/22/18 [Fioricet 50-300-40 mg Capsule] Dextroamphetamine/Amphetamine 20 - 40 mg PO DAILY 05/22/18 05/23/18 [Adderall 20 mg Tablet] Duloxetine HCl [Cymbalta] 60 mg PO DAILY 05/22/18 05/22/18 Escitalopram Oxalate [Lexapro] 40 mg PO DAILY 05/22/18 05/22/18 Levothyroxine [Synthroid] 112 mcg PO QDAC 05/22/18 05/22/18 Potassium Citrate [Potassium 10 meq PO BID 05/22/18 05/22/18 Citrate ER] Prazosin HCl 5 mg PO QPM 05/22/18 05/22/18 Simvastatin 20 mg PO QPM 05/22/18 05/22/18 Spironolactone [Aldactone] 100 mg PO DAILY 05/22/18 05/22/18 Trazodone HCl 100 mg PO QPM 05/22/18 05/23/18 Dextroamphetamine/Amphetamine 20 mg PO 1200 05/23/18 05/23/18 [Adderall 20 mg Tablet] Ferrous Sulfate 325 mg PO DAILY #20 tablet 05/25/18 Dicyclomine [Bentyl] 20 mg PO QID PRN #10 capsule 08/12/18 - Allergies Allergies/Adverse Reactions: Allergies Allergy/AdvReac Type Severity Reaction Status Date / Time carisoprodol [From Soma] Allergy Unknown Verified 12/23/17 20:27 cyclobenzaprine HCl * Allergy Edema Verified 12/23/17 20:27 [From Flexeril] divalproex sodium Allergy Rash Verified 12/23/17 20:27 [From Depakote] gabapentin [From Neurontin] Allergy Edema Verified 12/23/17 20:27 lidocaine Allergy Unknown Verified 12/23/17 20:27 nitrofurantoin Allergy Rash Verified 12/23/17 20:27 macrocrystalline * [From Macrodantin] nortriptyline Allergy Unknown Verified 12/23/17 20:27 ondansetron HCl * Allergy Hives Verified 12/23/17 20:27 [From Zofran (as hydrochloride)] pregabalin [From Lyrica] Allergy Headache Verified 12/23/17 20:27 - Social History Does the pt smoke?: Yes Smoking Status: Current every day smoker Does the pt drink ETOH?: No Does the pt have substance abuse?: No - Immunizations Immunizations are current?: Yes Immunizations: TDAP >10years/unknown - POLST Patient has POLST: No POLST Status: Full Code PD ED PE NORMAL - Vitals Vital signs reviewed: Yes - General General: Alert and oriented X 3, No acute distress - Respiratory Respiratory: No respiratory distress, Clear bilaterally - Abdomen Abdomen: Normal bowel sounds, Soft, Non tender - Back Back: No spinal TTP, Other (Mild right CVA tenderness) - Neuro Neuro: Alert and oriented X 3, Normal speech - Psych Psych: Normal mood, Normal affect Results - Vitals Vitals: Vital Signs - 24 hr 08/12/18 08/12/18 08/12/18 09:37 13:22 13:30 Temperature 36.8 C 37.2 C Heart Rate 81 80 Respiratory 16 20 Rate Blood Pressure 114/77 128/66 O2 Saturation 100 99 Oxygen O2 Source Room air - Labs Labs: Laboratory Tests 08/12/18 08/12/18 08/12/18 11:48 11:48 13:30 WBC 5.0 RBC 4.06 L Hgb 11.2 L Hct 33.5 L MCV 82.6 MCH 27.6 MCHC 33.4 RDW 21.0 H Plt Count 261 MPV 8.5 Neut # (Auto) 2.5 Lymph # (Auto) 1.6 [place] # (Auto) 0.4 Eos # (Auto) 0.4 Baso # (Auto) 0.1 Absolute Nucleated RBC 0.00 Nucleated RBC % 0.0 Sodium 137 Potassium 4.0 Chloride 105 Carbon Dioxide 26 Anion Gap 6.0 BUN 8 Creatinine 0.8 Estimated GFR (MDRD) 78 L Glucose 157 H Calcium 8.5 Total Bilirubin 0.4 AST 20 ALT 16 Alkaline Phosphatase 72 Total Protein 6.7 Albumin 3.7 Globulin 3.0 Albumin/Globulin Ratio 1.2 Lipase 19 L Urine Color YELLOW Urine Clarity CLEAR Urine pH 7.0 Ur Specific [place] 1.015 Urine Protein NEGATIVE Urine Glucose (UA) NEGATIVE Urine Ketones NEGATIVE Urine Occult Blood NEGATIVE Urine Nitrite NEGATIVE Urine Bilirubin NEGATIVE Urine Urobilinogen 0.2 (NORMAL) Ur Leukocyte Esterase NEGATIVE Ur Microscopic Review NOT INDICATED Urine Culture Comments NOT INDICATED Urine HCG, Qual NEGATIVE PD MEDICAL DECISION MAKING - ED course ED course: 43-year-old woman with complicated past medical history including type 1 diabetes, gastric bypass etc. presents with symptoms that are most compatible with a viral syndrome with vomiting and diarrhea and increased abdominal pain. She has a benign abdominal examination and her lab analysis are without pertinent positive findings. She felt better after medications here. Close return follow-ups precautions were given. - Sepsis Event Vital Signs: Vital Signs - 24 hr 08/12/18 08/12/18 08/12/18 09:37 13:22 13:30 Temperature 36.8 C 37.2 C Heart Rate 81 80 Respiratory 16 20 Rate Blood Pressure 114/77 128/66 O2 Saturation 100 99 Oxygen O2 Source Room air Departure - Departure Disposition: Home, Self Care Clinical Impression: History of Sophie-en-Y gastric bypass Abdominal pain Qualifiers: Abdominal location: generalized Qualified Code(s): R10.84 - Generalized abdominal pain DM type 1 (diabetes mellitus, type 1) Qualifiers: Diabetes mellitus complication status: without complication Qualified Code(s): E10.9 - Type 1 diabetes mellitus without complications Clinical Impression: (Ruled Out): Hematochezia Condition: Good Record reviewed to determine appropriate education?: Yes Instructions: ED Abdominal Pain Unkn Cause Prescriptions: Dicyclomine [Bentyl] 20 mg PO QID PRN #10 capsule PRN Reason: Abdominal Pain Comments: Return in 24 hours if not better, anytime if worse or new symptoms develop.
[2018-08-12] MEDS ORDERED: HYDROmorphone 1 MG/ML CARPUJECT IVP STA (13:32)
[2018-08-12] MEDS ORDERED: SODIUM CHLORIDE 0.9% 1,000 ML IV ONE (13:32)
[2018-08-12] MEDS ORDERED: ONDANSETRON 4 MG/2 ML VIAL IVP STA (13:32)
[2018-08-12 13:44] LABS: BILIRUBIN,URINE NEGATIVE (NEGATIVE); CLARITY,URINE CLEAR (CLEAR); GLUCOSE, URINE (UA) NEGATIVE (NEGATIVE); HCG UR QUAL NEGATIVE; KETONES,URINE (UA) NEGATIVE (NEGATIVE); LEUKOCYTE ESTERASE, URINE NEGATIVE (NEGATIVE); NITRITE,URINE NEGATIVE (NEGATIVE); OCCULT BLOOD,URINE NEGATIVE (NEGATIVE); PROTEIN,URINE NEGATIVE (NEGATIVE); UROBILINOGEN,URINE 0.2 (NORMAL) E.U./dL (NORMAL)
[2018-08-12] MEDS ORDERED: METOCLOPRAMIDE 10 MG/2 ML VIAL IVP STA (14:11)
[2018-08-12 14:30] VITALS: BP 96/68
== END 2018-08-12 14:49 | disposition home or self-care (01) ==
LOC: ED 09:13
DX: R10.84 Generalized abdominal pain (principal); E10.9 Type 1 diabetes mellitus without complications; F17.200 Nicotine dependence, unspecified, uncomplicated; Z98.84 Bariatric surgery status; Z79.4 Long term (current) use of insulin; Z96.41 Presence of insulin pump (external) (internal)
CPT/HCPCS: 36415; 80053; 81003; 81025; 83690; 85025; 96361; 96374; 96375; 99283; J1170; J2765; 81001; 87086

== ENCOUNTER 2018-08-15 14:04 | Outpatient (CLI) | payer MEDICARE, MEDICAID ==
--- NOTE | 2018-08-16 13:12 | Mammography Report ---
Reason: SCREENING MAMMO Procedure Date: 08/15/2018 Accession Number: [id number] / [id number] Procedure: MGN - Screening Mammo Dig Bilat CPT Code: FULL RESULT: EXAM: Screening Mammo Dig Bilat DATE: 08/15/2018 2:39 PM CLINICAL HISTORY: 43-year-old female with history of early menses. TECHNIQUE: Bilateral CC and MLO views as well as a exaggerated left CC view were obtained. COMPARISON: 01/17/2014, 09/11/2011. FINDINGS: The breasts demonstrate scattered fibroglandular densities bilaterally. Typically benign coarse calcification is identified in the left breast. No suspicious masses, clustered microcalcifications, or regions of architectural distortion are identified. IMPRESSION: Benign findings RECOMMENDATION: Routine annual screening unless otherwise clinically indicated. BIRADS CATEGORY 2: Benign findings STANDARD QUALIFYING STATEMENTS: 1. This examination was not reviewed with the aid of Computer-Aided Detection (CAD). 2. A negative or benign imaging report should not delay biopsy if clinically suspicious findings are present. Consider surgical consultation if warrented. More than 5% of cancers are not identified by imaging. 3. Dense breasts may obscure an underlying neoplasm.
== END 2018-08-15 14:05 | disposition home or self-care (01) ==
LOC: DI.N 14:04
PROVIDERS: ATTEND Internal Medicine
DX: Z12.31 Encounter for screening mammogram for malignant neoplasm of breast (principal)
CPT/HCPCS: 77067

== ENCOUNTER 2018-11-14 14:43 | Outpatient (CLI) | payer MEDICARE, MEDICAID | END 2018-11-14 14:44 | disposition critical access hospital (66) | LOC: EMS 14:43 | PROVIDERS: ATTEND Surgery | DX: R41.82 Altered mental status, unspecified (principal); R73.09 Other abnormal glucose | CPT/HCPCS: A0425; A0427 ==

== ENCOUNTER 2018-11-14 15:02 | Emergency (ER) | payer MEDICARE, MEDICAID ==
--- NOTE | 2018-11-14 15:29 | ED Physician Documentation ---
History of Present Illness - Stated complaint Stated Complaint: ALOC - Chief complaint Chief Complaint: Neuro - Additonal information Additional information: hx from daughter 43 y/o f IDDM to ED with AMS was fine at 11 daughter returned home at 230 and found her in bed altered and int crying no tonic clonic seizures hx seziures with hypoglycemia and THC use - FSBS was fine daughter sates she suffers from chronic pain no new meds but new CBD pen whcih may have more THC than she can manage fo fever cough NVD no recent PATEL CP AP daughter states not depressed suicidal - doubt intentional OD Review of Systems Unable to obtain: Unresponsive PD PAST MEDICAL HISTORY - Past Medical History Cardiovascular: High cholesterol, Murmur Respiratory: Shortness of breath Neuro: Headaches, Seizure disorder (related to hypoglycemia), Other (blunt force trauma- residual frontal lobe damage consequently has STM loss, difficulty focusing.) Endocrine/Autoimmune: Type 1 diabetes (patient has own insulin pump with glucose monitor, BG 70), HyPOthyroidism GI: GERD, Ulcers, Other (hx fatty liver, ongoing nausea, possible gastroparesis.) 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 (uterine ablation, bilateral tubal ligation) : Kidney stones, Other (frequent UTI) HEENT: Chronic vision loss, Chronic sinusitis Psych: Depression, Anxiety, Bipolar disorder, ADD/ADHD, Post traumatic stress disorder, Other (substance abuse) Musculoskeletal: Osteoarthritis, Fibromyalgia, Fatigue, Chronic back pain - Past Surgical History Past Surgical History: Yes General: Gastric surgery, Other (abdominal reconstruction, ventral hernia repair) Ortho: Rotator cuff repair, Other /MATTRESS SPECIALIST: section (x2), Endometrial ablation, Tubal ligation - Present Medications Home Medications: Ambulatory Orders Medication Instructions Recorded Confirmed Insulin Lispro [Humalog] 20 - 25 units SQ DAILY 10/30/15 11/14/18 Promethazine [Phenergan] 25 mg PO Q6H PRN 10/30/15 11/14/18 clonazePAM [Clonazepam] 1 mg PO TID PRN 10/30/15 11/14/18 oxyCODONE [Roxicodone] 10 mg PO QID PRN 10/30/15 11/14/18 Baclofen 10 mg PO QID 06/03/16 11/14/18 SUMAtriptan [Imitrex] 100 mg PO Q2H PRN MDD 200 MG 06/03/16 11/14/18 Butalb/Acetaminophen/Caffeine 1 each PO Q4H PRN 05/22/18 11/14/18 [Fioricet 50-300-40 mg Capsule] Dextroamphetamine/Amphetamine 20 - 40 mg PO DAILY 05/22/18 11/14/18 [Adderall 20 mg Tablet] Duloxetine HCl [Cymbalta] 60 mg PO DAILY 05/22/18 11/14/18 Escitalopram Oxalate [Lexapro] 40 mg PO DAILY 05/22/18 11/14/18 Levothyroxine [Synthroid] 112 mcg PO QDAC 05/22/18 11/14/18 Potassium Citrate [Potassium 10 meq PO BID 05/22/18 11/14/18 Citrate ER] Prazosin HCl 5 mg PO QPM 05/22/18 11/14/18 Simvastatin 20 mg PO QPM 05/22/18 11/14/18 Spironolactone [Aldactone] 100 mg PO DAILY 05/22/18 11/14/18 Trazodone HCl 200 mg PO QPM 05/22/18 11/14/18 Dextroamphetamine/Amphetamine 20 mg PO 1200 05/23/18 11/14/18 [Adderall 20 mg Tablet] Dicyclomine [Bentyl] 20 mg PO QID PRN #10 capsule 08/12/18 11/14/18 Bupropion HCl [Bupropion Xl] 150 mg PO DAILY 11/14/18 11/14/18 Pantoprazole Sodium [Protonix] 20 mg PO QDAC 11/14/18 11/14/18 - Allergies Allergies/Adverse Reactions: Allergies Allergy/AdvReac Type Severity Reaction Status Date / Time carisoprodol [From Soma] Allergy Unknown Verified 11/14/18 15:13 cyclobenzaprine HCl * Allergy Edema Verified 11/14/18 15:13 [From Flexeril] divalproex sodium Allergy Rash Verified 11/14/18 15:13 [From Depakote] gabapentin [From Neurontin] Allergy Edema Verified 11/14/18 15:13 lidocaine Allergy Unknown Verified 11/14/18 15:13 nitrofurantoin Allergy Rash Verified 11/14/18 15:13 macrocrystalline * [From Macrodantin] nortriptyline Allergy Unknown Verified 11/14/18 15:13 ondansetron [From Zofran] Allergy Hives Verified 11/14/18 15:13 ondansetron HCl * Allergy Hives Verified 11/14/18 15:13 [From Zofran (as hydrochloride)] pregabalin [From Lyrica] Allergy Headache Verified 11/14/18 15:13 - Social History Does the pt smoke?: Yes Smoking Status: Current every day smoker Does the pt drink ETOH?: No Does the pt have substance abuse?: No - Immunizations Immunizations are current?: Yes Immunizations: TDAP >10years/unknown - POLST Patient has POLST: No POLST Status: Full Code PD ED PE NORMAL - Vitals Vital signs reviewed: Yes - General General: Other (pulss away from pain, not verbal eyes closed). No: Alert and oriented X 3 - HEENT HEENT: Atraumatic, PERRL (4) - Neck Neck: Supple, no meningeal sign - Cardiac Cardiac: RRR - Respiratory Respiratory: No respiratory distress - Abdomen Abdomen: Soft, Non tender, Non distended - Derm Derm: Normal color, No rash - Extremities Extremities: Other (withdrawa all from pain) - Neuro Neuro: No: Alert and oriented X 3 (withdraws from pain, int sobbing, no focal weakness appreciated, cannot assess sensation or orientation) Eye Opening: None Motor: Withdraws to Pain Verbal: None GCS Score: 6 Results - Vitals Vitals: Vital Signs - 24 hr 11/14/18 11/14/18 11/14/18 15:04 16:00 16:30 Temperature 36.4 C L Heart Rate 80 71 64 Respiratory 18 12 15 Rate Blood Pressure 127/80 120/74 107/75 O2 Saturation 97 100 99 11/14/18 11/14/18 17:00 17:30 Temperature Heart Rate 59 L 57 L Respiratory 19 26 H Rate Blood Pressure 124/77 121/82 H O2 Saturation 99 97 Oxygen O2 Source Room air - EKG (time done) 1614 Rate: Rate (enter#) (64) Rhythm: NSR [place]: Normal Intervals: Normal [place] QRS: Normal Ischemia: Normal ST segments - Labs Labs: Laboratory Tests 11/14/18 11/14/18 11/14/18 16:20 16:20 16:37 WBC 9.5 RBC 4.21 Hgb 11.4 L Hct 35.6 L MCV 84.5 MCH 27.1 MCHC 32.0 RDW 17.8 H Plt Count 329 MPV 8.4 Neut # (Auto) 7.2 H Lymph # (Auto) 1.7 [place] # (Auto) 0.4 Eos # (Auto) 0.1 Baso # (Auto) 0.1 Absolute Nucleated RBC 0.00 Nucleated RBC % 0.0 Sodium 134 L Potassium 4.1 Chloride 104 Carbon Dioxide 26 Anion Gap 4.0 L BUN 5 L Creatinine 0.9 Estimated GFR (MDRD) 68 L Glucose 254 H Calcium 8.2 L Total Bilirubin 0.2 AST 15 ALT 13 Alkaline Phosphatase 72 Total Protein 6.4 L Albumin 3.5 Globulin 2.9 Albumin/Globulin Ratio 1.2 Lipase 37 Serum HCG, Qual NEGATIVE Urine Color YELLOW Urine Clarity CLEAR Urine pH 7.0 Ur Specific [place] 1.015 Urine Protein NEGATIVE Urine Glucose (UA) 500 H Urine Ketones NEGATIVE Urine Occult Blood NEGATIVE Urine Nitrite NEGATIVE Urine Bilirubin NEGATIVE Urine Urobilinogen 0.2 (NORMAL) Ur Leukocyte Esterase NEGATIVE Ur Microscopic Review NOT INDICATED Urine Culture Comments NOT INDICATED Salicylates < 6.0 Urine Opiates Screen NEGATIVE Ur Oxycodone Screen NEGATIVE Urine Methadone Screen NEGATIVE Ur Propoxyphene Screen NEGATIVE Acetaminophen < 10 L Ur Barbiturates Screen NEGATIVE Ur Tricyclics Screen NEGATIVE Ur Phencyclidine Scrn NEGATIVE Ur Amphetamine Screen NEGATIVE U Methamphetamines Scrn NEGATIVE U Benzodiazepines Scrn POSITIVE H Urine Cocaine Screen NEGATIVE U Cannabinoids Screen POSITIVE H Ethyl Alcohol < 5.0 - Rads (name of study) CTH Radiology: See rad report (no acute) PD MEDICAL DECISION MAKING - ED course ED course: based on hx this does not sound like seizure activity and is atypical for pt post ictal sx as well CTH neg tox + for as expected no anion gap acidosis pt gradually imrpoved s intervention has a PATEL now which she states is typical for post ictal state for her daughter homa sezizures have been triggeres by THC before and attributes to the new CBD pen she used tolerating PO and ambulatory feel safe for dc with her family to care for her Departure - Departure Disposition: Home, Self Care Clinical Impression: Altered mental status Qualifiers: Altered mental status type: unspecified Qualified Code(s): R41.82 - Altered mental status, unspecified Condition: Good Follow-Up: Isatu Belle MD [Primary Care Provider] - Comments: The CT scan of your brain was fine All the labs were fine or as expected (your blood sugar was high) No one witnessed a seizure but you have a history of seizures and gradually recovered as would expected with a post ictal period Since you are feeling better and have responsible family members to stay with you, I think it is safe for you to go home now. Do not use any more the the new CBD medication. Follow up with your PMD before the weekend Return if worse
--- NOTE | 2018-11-14 16:02 | CT Report ---
Reason: AMS Procedure Date: 11/14/2018 Accession Number: [id number] / [id number] Procedure: CT - Head W/O CPT Code: FULL RESULT: EXAM: CT HEAD. EXAM DATE: 11/14/2018 03:56 PM. CLINICAL HISTORY: Altered mental status. COMPARISON: None. TECHNIQUE: Multiaxial CT images were obtained from the foramen magnum to the vertex. Reformats: Sagittal and coronal. IV contrast: None. In accordance with CT protocol optimization, one or more of the following dose reduction techniques were utilized for this exam: automated exposure control, adjustment of mA and/or KV based on patient size, or use of iterative reconstructive technique. FINDINGS: Parenchyma: No intraparenchymal hemorrhage. No evidence of mass, midline shift. Wade-white differentiation is distinct. Extraaxial Spaces: Normal for age. No subdural or epidural collections identified. Ventricles: Normal in size and position. Sinuses and Orbits: Imaged paranasal sinuses, orbits, and mastoids show no significant abnormality. Bones: No evidence of fracture or calvarial defect. Other: None. IMPRESSION: No acute intracranial abnormality. RADIA
[2018-11-14 16:27] LABS: BASOPHILS # (AUTO) 0.1 10^3/uL (0.0-0.1); BASOPHILS % (AUTO) 0.7 %; EOSINOPHILS # (AUTO) 0.1 10^3/uL (0.0-0.7); EOSINOPHILS % (AUTO) 0.6 %; HGB - HEMOGLOBIN 11.4 g/dL (12.0-16.0); LYMPHOCYTES # (AUTO) 1.7 10^3/uL (1.5-3.5); LYMPHOCYTES % (AUTO) 18.1 %; MEAN CORPUSCULAR HEMOGLOBIN 27.1 pg (27.0-31.0); MEAN CORPUSCULAR VOLUME 84.5 fL (81.0-99.0); MEAN PLATELET VOLUME 8.4 fL (7.9-10.8); MONOCYTES # (AUTO) 0.4 10^3/uL (0.0-1.0); MONOCYTES % (AUTO) 4.7 %; NEUTROPHILS # (AUTO) 7.2 10^3/uL (1.5-6.6); NEUTROPHILS % (AUTO) 75.9 %; PLT - PLATELET COUNT 329 10^3/uL (130-450); RED BLOOD COUNT 4.21 10^6/uL (4.20-5.40); RED CELL DISTRIBUTION WIDTH 17.8 % (12.0-15.0); WHITE BLOOD COUNT 9.5 x10^3/uL (4.8-10.8)
[2018-11-14 16:44] LABS: MUDS CUTOFF CONCENTRATIONS CUTOFF CONC BELOW:
[2018-11-14 16:49] LABS: ACETAMINOPHEN < 10 ug/mL (10-30); ALBUMIN 3.5 g/dL (3.2-5.5); ALBUMIN/GLOBULIN RATIO 1.2 (1.0-2.2); ALKALINE PHOSPHATASE 72 IU/L (42-121); ALT ALANINE AMINOTRANSFERASE 13 IU/L (10-60); AST ASPARTATE AMINOTRANSFERASE 15 IU/L (10-42); BILIRUBIN,TOTAL 0.2 mg/dL (0.2-1.0); BUN - BLOOD UREA NITROGEN 5 mg/dL (6-20); CALCIUM 8.2 mg/dL (8.5-10.3); CARBON DIOXIDE - CO2 26 mmol/L (21-32); CHLORIDE 104 mmol/L (101-111); CREATININE 0.9 mg/dL (0.4-1.0); GFR - MDRD 68 (>89); GLUCOSE 254 mg/dL (70-100); HCG,QUALITATIVE BLOOD NEGATIVE; LIPASE 37 U/L (22-51); SALICYLATE < 6.0 mg/dL; SODIUM 134 mmol/L (135-145); TOTAL PROTEIN 6.4 g/dL (6.7-8.2)
[2018-11-14 16:50] LABS: BILIRUBIN,URINE NEGATIVE (NEGATIVE); GLUCOSE, URINE (UA) 500 mg/dL (NEGATIVE); KETONES,URINE (UA) NEGATIVE (NEGATIVE); LEUKOCYTE ESTERASE, URINE NEGATIVE (NEGATIVE); NITRITE,URINE NEGATIVE (NEGATIVE); OCCULT BLOOD,URINE NEGATIVE (NEGATIVE); PROTEIN,URINE NEGATIVE (NEGATIVE); UROBILINOGEN,URINE 0.2 (NORMAL) E.U./dL (NORMAL)
[2018-11-14 17:01] LABS: CLARITY,URINE CLEAR (CLEAR)
[2018-11-14 17:05] LABS: AMPHETAMINE SCREEN,URINE NEGATIVE (NEGATIVE); BENZODIAZEPINES SCREEN, URINE POSITIVE (NEGATIVE); COCAINE SCREEN URINE NEGATIVE (NEGATIVE); METHADONE SCREEN, URINE NEGATIVE (NEGATIVE); METHAMPHETAMINES SCREEN, URINE NEGATIVE (NEGATIVE); OPIATE SCREEN, URINE NEGATIVE (NEGATIVE); OXYCODONE SCREEN, URINE NEGATIVE (NEGATIVE); PROPOXYPHENE SCREEN, URINE NEGATIVE (NEGATIVE); TRICYCLIC ANTIDEPRESSANT,URINE NEGATIVE (NEGATIVE)
[2018-11-14] MEDS ORDERED: ACETAMINOPHEN 325 MG TABLET PO STA (19:06)
[2018-11-14 19:08] VITALS: BP 124/89
== END 2018-11-14 19:31 | disposition home or self-care (01) ==
LOC: EDUNIT# → EDBD → ED 15:02
DX: R41.82 Altered mental status, unspecified (principal); R51 Headache; E10.65 Type 1 diabetes mellitus with hyperglycemia; Z79.4 Long term (current) use of insulin; F17.200 Nicotine dependence, unspecified, uncomplicated
CPT/HCPCS: 36415; 70450; 80053; 81003; 83690; 84703; 85025; 93005; 99284; 99285; A9270; 80306; 80307; 80320; 80329; 81001; 87086

== ENCOUNTER 2018-12-21 12:43 | Outpatient (CLI) | payer MEDICARE, MEDICAID | END 2018-12-21 12:44 | disposition critical access hospital (66) | LOC: EMS 12:43 | PROVIDERS: ATTEND Surgery | DX: R52 Pain, unspecified (principal); R53.1 Weakness; F22 Delusional disorders; E11.8 Type 2 diabetes mellitus with unspecified complications; Z79.4 Long term (current) use of insulin | CPT/HCPCS: A0425; A0427 ==

== ENCOUNTER 2018-12-21 13:03 | Inpatient (IN) | payer MEDICARE, MEDICAID ==
[2018-12-21] MEDS ORDERED: SODIUM CHLORIDE 0.9% 1,000 ML IV ONE ×2 (13:29)
--- NOTE | 2018-12-21 13:39 | ED Physician Documentation ---
History of Present Illness - Stated complaint Stated Complaint: AMS - Chief complaint Chief Complaint: General - History obtained from History obtained from: Patient, Family, EMS - History of Present Illness Timing: How many days ago (several) Pain level max: 6 Pain level now: 5 Improved by: Nothing Worsened by: Nothing - Additonal information Additional information: 43-year-old diabetic female complains of weakness over the past several days to weeks. Family states that she is now unable to stand unassisted. Fell against the bathtub a few days ago and landed on her back. She has struck her head as well. Has been very sleepy lately. No changes to her medications, though the family is unclear exactly what she is taking. They have not noticed any focal numbness or weakness. Review of Systems Ten Systems: 10 systems reviewed and negative Constitutional: denies: Fever, Chills, Myalgias Ears: denies: Ear pain Nose: denies: Rhinorrhea / runny nose, Congestion Throat: denies: Sore throat Cardiac: denies: Chest pain / pressure, Palpitations Respiratory: denies: Wheezing GI: denies: Abdominal Pain, Nausea, Vomiting, Diarrhea : denies: Dysuria, Frequency, Hesitancy Skin: denies: Rash Musculoskeletal: denies: Neck pain, Back pain Neurologic: denies: Focal weakness, Numbness, Headache PD PAST MEDICAL HISTORY - Past Medical History Past Medical History: Yes Cardiovascular: High cholesterol, Murmur Respiratory: Shortness of breath Neuro: Headaches, Seizure disorder, Other Endocrine/Autoimmune: Type 1 diabetes, HyPOthyroidism GI: GERD, Ulcers, 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 : Kidney stones, Other HEENT: Chronic vision loss, Chronic sinusitis Psych: Depression, Anxiety, Bipolar disorder, ADD/ADHD, Post traumatic stress disorder, Other Musculoskeletal: Osteoarthritis, Fibromyalgia, Fatigue, Chronic back pain Derm: None - Past Surgical History Past Surgical History: Yes General: Gastric surgery, Other Ortho: Rotator cuff repair, Other /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 MACHINE 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: section, Endometrial ablation, Tubal ligation - Present Medications Home Medications: Ambulatory Orders Medication Instructions Recorded Confirmed Insulin Lispro [Humalog] 20 - 25 units SQ DAILY 10/30/15 12/21/18 clonazePAM [Clonazepam] 1 mg PO TID PRN 10/30/15 12/21/18 Baclofen 10 mg PO QID 06/03/16 11/14/18 Escitalopram Oxalate [Lexapro] 40 mg PO DAILY 05/22/18 12/21/18 Levothyroxine [Synthroid] 112 mcg PO QDAC 05/22/18 12/21/18 Prazosin HCl 5 mg PO QPM 05/22/18 12/21/18 Simvastatin 20 mg PO QPM 05/22/18 12/21/18 Spironolactone [Aldactone] 100 mg PO DAILY 05/22/18 12/21/18 Trazodone HCl 200 mg PO QPM 05/22/18 12/21/18 Bupropion HCl [Bupropion Xl] 150 mg PO DAILY 11/14/18 12/21/18 Pantoprazole Sodium [Protonix] 20 mg PO QDAC 11/14/18 12/21/18 Metoclopramide [Reglan] 10 mg PO PRN PRN 12/21/18 12/21/18 - Allergies Allergies/Adverse Reactions: Allergies Allergy/AdvReac Type Severity Reaction Status Date / Time carisoprodol [From Soma] Allergy Unknown Verified 12/21/18 13:13 cyclobenzaprine HCl * Allergy Edema Verified 12/21/18 13:13 [From Flexeril] divalproex sodium Allergy Rash Verified 12/21/18 13:13 [From Depakote] gabapentin [From Neurontin] Allergy Edema Verified 12/21/18 13:13 lidocaine Allergy Unknown Verified 12/21/18 13:13 nitrofurantoin Allergy Rash Verified 12/21/18 13:13 macrocrystalline * [From Macrodantin] nortriptyline Allergy Unknown Verified 12/21/18 13:13 ondansetron [From Zofran] Allergy Hives Verified 12/21/18 13:13 ondansetron HCl * Allergy Hives Verified 12/21/18 13:13 [From Zofran (as hydrochloride)] pregabalin [From Lyrica] Allergy Headache Verified 12/21/18 13:13 - Social History Does the pt smoke?: Yes Smoking Status: Current every day smoker Does the pt drink ETOH?: No Does the pt have substance abuse?: No - Immunizations Immunizations are current?: Yes Immunizations: TDAP >10years/unknown - POLST Patient has POLST: No POLST Status: Full Code PD ED PE NORMAL - Vitals Vital signs reviewed: Yes - General General: Other (Drowsy but arousable, oriented x3.) - HEENT HEENT: PERRL, Other (Dry lips and tongue) - Neck Neck: Supple, no meningeal sign - Cardiac Cardiac: RRR, Strong equal pulses - Respiratory Respiratory: No respiratory distress, Clear bilaterally - Abdomen Abdomen: Soft, Non tender, Non distended - Back Back: No spinal TTP (No midline tenderness to palpation or percussion. No step- off or deformity) - Derm Derm: Warm and dry - Extremities Extremities: No edema, No calf tenderness / cord - Neuro Neuro: Alert and oriented X 3 - Psych Psych: Normal mood, Normal affect Results - Vitals Vitals: Vital Signs - 24 hr 12/21/18 12/21/18 12/21/18 13:05 13:12 15:12 Temperature 36.4 C L 36.6 C Heart Rate 86 89 99 Respiratory 16 12 19 Rate Blood Pressure 96/61 104/69 116/69 O2 Saturation 100 98 100 Oxygen O2 Source Room air - EKG (time done) 1333 Rate: Rate (enter#) (107) Rhythm: Sinus tachycardia [place]: Normal Intervals: 1st degree AVB QRS: Normal Ischemia: Non specific changes - Labs Labs: Laboratory Tests 12/21/18 12/21/18 12/21/18 13:56 13:56 13:56 WBC 16.9 H RBC 4.32 Hgb 11.6 L Hct 35.9 L MCV 83.1 MCH 26.8 L MCHC 32.3 RDW 17.4 H Plt Count 366 MPV 9.6 Neut # (Auto) 12.6 H Lymph # (Auto) 2.2 [place] # (Auto) 1.8 H Eos # (Auto) 0.2 Baso # (Auto) 0.0 Absolute Nucleated RBC 0.01 Nucleated RBC % 0.1 Manual Slide Review Indicated Platelet Estimate NORMAL (130-450,000) Platelet Morphology 1+ LARGE PLATELETS RBC Morph Micro Appear 1+ POLYCHROMASIA Sodium 136 Potassium 2.5 L* Chloride 103 Carbon Dioxide 22 Anion Gap 11.0 BUN 12 Creatinine 0.8 Estimated GFR (MDRD) 78 L Glucose 38 L* Calcium 8.7 Phosphorus < 1.0 L* Magnesium 2.0 Total Bilirubin 0.5 AST 22 ALT 19 Alkaline Phosphatase 68 Total Creatine Kinase 164 Troponin I Total Protein 7.2 Albumin 3.7 Globulin 3.5 Albumin/Globulin Ratio 1.1 Lipase 26 TSH 0.55 Urine Color Urine Clarity Urine pH Ur Specific [place] Urine Protein Urine Glucose (UA) Urine Ketones Urine Occult Blood Urine Nitrite Urine Bilirubin Urine Urobilinogen Ur Leukocyte Esterase Ur Microscopic Review Urine Culture Comments Salicylates < 6.0 Urine Opiates Screen Ur Oxycodone Screen Urine Methadone Screen Ur Propoxyphene Screen Acetaminophen < 10 L Ur Barbiturates Screen Ur Tricyclics Screen Ur Phencyclidine Scrn Ur Amphetamine Screen U Methamphetamines Scrn U Benzodiazepines Scrn Urine Cocaine Screen U Cannabinoids Screen Ethyl Alcohol < 5.0 Influenza A (Rapid) Influenza B (Rapid) 12/21/18 12/21/18 12/21/18 13:56 15:25 16:38 WBC RBC Hgb Hct MCV MCH MCHC RDW Plt Count MPV Neut # (Auto) Lymph # (Auto) [place] # (Auto) Eos # (Auto) Baso # (Auto) Absolute Nucleated RBC Nucleated RBC % Manual Slide Review Platelet Estimate Platelet Morphology RBC Morph Micro Appear Sodium Potassium Chloride Carbon Dioxide Anion Gap BUN Creatinine Estimated GFR (MDRD) Glucose Calcium Phosphorus Magnesium Total Bilirubin AST ALT Alkaline Phosphatase Total Creatine Kinase Troponin I < 0.04 Total Protein Albumin Globulin Albumin/Globulin Ratio Lipase TSH Urine Color YELLOW Urine Clarity CLEAR Urine pH 6.0 Ur Specific [place] 1.015 Urine Protein NEGATIVE Urine Glucose (UA) 500 H Urine Ketones TRACE Urine Occult Blood NEGATIVE Urine Nitrite NEGATIVE Urine Bilirubin NEGATIVE Urine Urobilinogen 0.2 (NORMAL) Ur Leukocyte Esterase NEGATIVE Ur Microscopic Review NOT INDICATED Urine Culture Comments NOT INDICATED Salicylates Urine Opiates Screen NEGATIVE Ur Oxycodone Screen NEGATIVE Urine Methadone Screen NEGATIVE Ur Propoxyphene Screen NEGATIVE Acetaminophen Ur Barbiturates Screen POSITIVE H Ur Tricyclics Screen NEGATIVE Ur Phencyclidine Scrn NEGATIVE Ur Amphetamine Screen NEGATIVE U Methamphetamines Scrn NEGATIVE U Benzodiazepines Scrn POSITIVE H Urine Cocaine Screen NEGATIVE U Cannabinoids Screen NEGATIVE Ethyl Alcohol Influenza A (Rapid) Negative Influenza B (Rapid) Negative - Rads (name of study) head Ct Radiology: Prelim report reviewed, EMP read contemporaneously, See rad report (No acute intracranial abnormality) Chest x-ray Radiology: Prelim report reviewed, EMP read contemporaneously, See rad report (No acute disease) PD MEDICAL DECISION MAKING - ED course Complexity details: reviewed results, re-evaluated patient, considered differential, d/w patient, d/w family ED course: 43-year-old female presents to the emergency department with significant weakness. She is found to be significantly hypokalemic and hypophosphatemia. Has a leukocytosis of unclear etiology. Was given IV fluids and potassium phosphate in the emergency department. Will admit the patient for further evaluation and care. Discussed the case with Dr. Fajardo, hospitalist who accepts. This document was made in part using voice recognition software. While efforts are made to proofread this document, sound alike and grammatical errors may occur. Departure - Departure Disposition: [address] [facility] DC/Xfer Clinical Impression: Hypophosphatemia, Hyponatremia, Hypoglycemia Condition: Stable Discharge Date/Time: 12/21/18 17:53
[2018-12-21 14:05] LABS: BASOPHILS % (AUTO) 0.3 %; EOSINOPHILS # (AUTO) 0.2 10^3/uL (0.0-0.7); EOSINOPHILS % (AUTO) 1.2 %; HGB - HEMOGLOBIN 11.6 g/dL (12.0-16.0); LYMPHOCYTES # (AUTO) 2.2 10^3/uL (1.5-3.5); LYMPHOCYTES % (AUTO) 13.2 %; MEAN CORPUSCULAR HEMOGLOBIN 26.8 pg (27.0-31.0); MEAN CORPUSCULAR HGB CONC 32.3 g/dL (32.0-36.0); MEAN CORPUSCULAR VOLUME 83.1 fL (81.0-99.0); MEAN PLATELET VOLUME 9.6 fL (7.9-10.8); MONOCYTES # (AUTO) 1.8 10^3/uL (0.0-1.0); MONOCYTES % (AUTO) 10.6 %; NEUTROPHILS # (AUTO) 12.6 10^3/uL (1.5-6.6); NEUTROPHILS % (AUTO) 74.7 %; PLT - PLATELET COUNT 366 10^3/uL (130-450); RED BLOOD COUNT 4.32 10^6/uL (4.20-5.40); RED CELL DISTRIBUTION WIDTH 17.4 % (12.0-15.0); WHITE BLOOD COUNT 16.9 x10^3/uL (4.8-10.8)
--- NOTE | 2018-12-21 14:12 | CT Report ---
Reason: ALOC Procedure Date: 12/21/2018 Accession Number: [id number] / [id number] Procedure: CT - Head W/O CPT Code: FULL RESULT: EXAM: CT HEAD EXAM DATE: 12/21/2018 01:54 PM. CLINICAL HISTORY: Altered mental level of consciousness. COMPARISON: Head w/o contrast 11/14/2018 3:42 PM. TECHNIQUE: Multiaxial CT images were obtained from the foramen magnum to the vertex. Reformats: Sagittal and coronal. IV contrast: None. In accordance with CT protocol optimization, one or more of the following dose reduction techniques were utilized for this exam: automated exposure control, adjustment of mA and/or KV based on patient size, or use of iterative reconstructive technique. FINDINGS: Parenchyma: No intraparenchymal hemorrhage. No evidence of mass, midline shift. Wade-white differentiation is distinct. Extraaxial Spaces: Normal for age. No subdural or epidural collections identified. Ventricles: Normal in size and position. Sinuses and Orbits: Imaged paranasal sinuses, orbits, and mastoids show no significant abnormality. Bones: No evidence of fracture or calvarial defect. Other: None. IMPRESSION: No acute intracranial abnormality. RADIA
[2018-12-21 14:28] LABS: PLATELET ESTIMATE, MANUAL NORMAL (130-450,000) (NORMAL); PLATELET MORPHOLOGY 1+ LARGE PLATELETS (NORMAL)
[2018-12-21 14:31] LABS: ACETAMINOPHEN < 10 ug/mL (10-30); ALBUMIN 3.7 g/dL (3.2-5.5); ALBUMIN/GLOBULIN RATIO 1.1 (1.0-2.2); ALKALINE PHOSPHATASE 68 IU/L (42-121); ALT ALANINE AMINOTRANSFERASE 19 IU/L (10-60); AST ASPARTATE AMINOTRANSFERASE 22 IU/L (10-42); BILIRUBIN,TOTAL 0.5 mg/dL (0.2-1.0); BUN - BLOOD UREA NITROGEN 12 mg/dL (6-20); CALCIUM 8.7 mg/dL (8.5-10.3); CARBON DIOXIDE - CO2 22 mmol/L (21-32); CHLORIDE 103 mmol/L (101-111); CK- CREATINE KINASE 164 IU/L (22-269); CREATININE 0.8 mg/dL (0.4-1.0); GFR - MDRD 78 (>89); LIPASE 26 U/L (22-51); SALICYLATE < 6.0 mg/dL; SODIUM 136 mmol/L (135-145); TOTAL PROTEIN 7.2 g/dL (6.7-8.2)
[2018-12-21 14:32] LABS: PHOSPHORUS < 1.0 mg/dL (2.5-4.6)
[2018-12-21] MEDS ORDERED: POTASSIUM PHOSPHATE 15 MMOL in SODIUM CHLORIDE 0.9% 250 ML IV ONE (14:50)
--- NOTE | 2018-12-21 15:22 | XRAY Report ---
Reason: cough, falls Procedure Date: 12/21/2018 Accession Number: [id number] / [id number] Procedure: XR - Chest 1 View X-Ray CPT Code: 23864 FULL RESULT: EXAM: CHEST RADIOGRAPHY EXAM DATE: 12/21/2018 03:06 PM. CLINICAL HISTORY: Cough, falls. COMPARISON: RIBS W/PA CHEST RT 12/23/2017 8:40 PM. TECHNIQUE: 1 view. FINDINGS: Lungs/Pleura: No focal opacities evident. No pleural effusion. No pneumothorax. Mediastinum: Within exam limitations, the cardiomediastinal contour is normal. Other: None. IMPRESSION: Negative chest RADIA
[2018-12-21 15:32] LABS: MUDS CUTOFF CONCENTRATIONS CUTOFF CONC BELOW:
[2018-12-21 15:34] LABS: BILIRUBIN,URINE NEGATIVE (NEGATIVE); GLUCOSE, URINE (UA) 500 mg/dL (NEGATIVE); KETONES,URINE (UA) TRACE mg/dL (NEGATIVE); LEUKOCYTE ESTERASE, URINE NEGATIVE (NEGATIVE); NITRITE,URINE NEGATIVE (NEGATIVE); OCCULT BLOOD,URINE NEGATIVE (NEGATIVE); PROTEIN,URINE NEGATIVE (NEGATIVE); UROBILINOGEN,URINE 0.2 (NORMAL) E.U./dL (NORMAL)
[2018-12-21 15:38] LABS: CLARITY,URINE CLEAR (CLEAR)
[2018-12-21 15:45] LABS: AMPHETAMINE SCREEN,URINE NEGATIVE (NEGATIVE); BENZODIAZEPINES SCREEN, URINE POSITIVE (NEGATIVE); COCAINE SCREEN URINE NEGATIVE (NEGATIVE); METHADONE SCREEN, URINE NEGATIVE (NEGATIVE); METHAMPHETAMINES SCREEN, URINE NEGATIVE (NEGATIVE); OPIATE SCREEN, URINE NEGATIVE (NEGATIVE); OXYCODONE SCREEN, URINE NEGATIVE (NEGATIVE); PROPOXYPHENE SCREEN, URINE NEGATIVE (NEGATIVE); TRICYCLIC ANTIDEPRESSANT,URINE NEGATIVE (NEGATIVE)
[2018-12-21] MEDS ORDERED: ACETAMINOPHEN 325 MG TABLET PO STA (16:45)
[2018-12-21] MEDS ORDERED: ONDANSETRON 4 MG/2 ML VIAL IVP PRN (17:10)
[2018-12-21] MEDS ORDERED: TEMAZEPAM 15 MG CAPSULE PO PRN (17:10)
[2018-12-21] MEDS ORDERED: ACETAMINOPHEN 325 MG TABLET PO PRN (17:10)
[2018-12-21] MEDS ORDERED: clonazePAM 0.5 MG TABLET PO PRN (17:14)
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
[2018-12-21] MEDS ORDERED: D5.45NS W/20 MEQ KCL 1,000 ML IV SCH (18:00)
[2018-12-21] MEDS: oxyCODONE 5 MG TABLET PO PRN (20:15)
[2018-12-21] MEDS: ATORVASTATIN 10 MG TABLET PO SCH (20:15)
[2018-12-21] MEDS: FAMOTIDINE 20 MG TABLET PO SCH (20:15)
[2018-12-21] MEDS: INSULIN ASPART 300 UNIT/3 ML PEN SUBQ SCH (20:26)
[2018-12-21 22:36] LABS: GLUCOSE 38 mg/dL (70-100)
[2018-12-22] MEDS: SODIUM CHLORIDE FLUSH 0.9% 10 ML SYRINGE IVP SCH ×3 (02:41→06:57)
[2018-12-22] MEDS ORDERED: SODIUM CHLORIDE 0.9% 1,000 ML IV ONE (02:57)
[2018-12-22] MEDS: oxyCODONE 5 MG TABLET PO PRN ×2 (03:00→08:02)
[2018-12-22] MEDS: INSULIN ASPART 300 UNIT/3 ML PEN SUBQ SCH ×7 (03:10→21:08)
[2018-12-22 05:47] LABS: BASOPHILS # (AUTO) 0.1 10^3/uL (0.0-0.1); BASOPHILS % (AUTO) 0.8 %; EOSINOPHILS # (AUTO) 0.3 10^3/uL (0.0-0.7); EOSINOPHILS % (AUTO) 3.8 %; HGB - HEMOGLOBIN 9.1 g/dL (12.0-16.0); LYMPHOCYTES # (AUTO) 3.1 10^3/uL (1.5-3.5); LYMPHOCYTES % (AUTO) 42.9 %; MEAN CORPUSCULAR HGB CONC 31.5 g/dL (32.0-36.0); MEAN CORPUSCULAR VOLUME 85.9 fL (81.0-99.0); MEAN PLATELET VOLUME 9.2 fL (7.9-10.8); MONOCYTES # (AUTO) 0.6 10^3/uL (0.0-1.0); MONOCYTES % (AUTO) 8.7 %; NEUTROPHILS # (AUTO) 3.2 10^3/uL (1.5-6.6); NEUTROPHILS % (AUTO) 43.8 %; PLT - PLATELET COUNT 222 10^3/uL (130-450); RED BLOOD COUNT 3.38 10^6/uL (4.20-5.40); RED CELL DISTRIBUTION WIDTH 17.8 % (12.0-15.0); WHITE BLOOD COUNT 7.2 x10^3/uL (4.8-10.8)
[2018-12-22 05:58] LABS: HB2 TOTAL 9.5 g/dL; HEMOGLOBIN A1C 0.71 g/dL
[2018-12-22 06:04] LABS: ALBUMIN 2.6 g/dL (3.2-5.5); ALKALINE PHOSPHATASE 48 IU/L (42-121); ALT ALANINE AMINOTRANSFERASE 18 IU/L (10-60); AST ASPARTATE AMINOTRANSFERASE 32 IU/L (10-42); BILIRUBIN,TOTAL 0.3 mg/dL (0.2-1.0); BUN - BLOOD UREA NITROGEN 8 mg/dL (6-20); CALCIUM 6.9 mg/dL (8.5-10.3); CARBON DIOXIDE - CO2 18 mmol/L (21-32); CHLORIDE 108 mmol/L (101-111); CREATININE 0.8 mg/dL (0.4-1.0); GFR - MDRD 78 (>89); GLUCOSE 222 mg/dL (70-100); MAGNESIUM 1.7 mg/dL (1.7-2.8); SODIUM 134 mmol/L (135-145); TOTAL PROTEIN 5.2 g/dL (6.7-8.2)
[2018-12-22 06:05] LABS: PHOSPHORUS < 1.0 mg/dL (2.5-4.6)
[2018-12-22] MEDS: LEVOTHYROXINE 112 MCG TABLET PO SCH (06:38)
[2018-12-22] MEDS ORDERED: D5.45NS W/20 MEQ KCL 1,000 ML IV SCH (07:00)
[2018-12-22] MEDS ORDERED: POTASSIUM PHOSPHATE 15 MMOL in SODIUM CHLORIDE 0.9% 250 ML IV ONE ×2 (08:00→13:30)
[2018-12-22] MEDS: NS W/20 MEQ KCL 1,000 ML IV SCH ×3 (08:03→23:47)
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
[2018-12-22] MEDS: INSULIN GLARGINE 300 UNIT/3 ML PEN SUBQ SCH (08:13)
[2018-12-22] MEDS: ENOXAPARIN 40 MG/0.4 ML SYRINGE SUBQ SCH (08:14)
[2018-12-22] MEDS: POLYETHYLENE GLYCOL 3350 17 GM PACKET PO SCH (08:15)
[2018-12-22] MEDS: buPROPion XL 150 MG TABLET PO SCH (08:15)
[2018-12-22] MEDS: FAMOTIDINE 20 MG TABLET PO SCH ×2 (08:15→21:08)
[2018-12-22] MEDS: ESCITALOPRAM 10 MG TABLET PO SCH (08:15)
[2018-12-22] MEDS: BACLOFEN 10 MG TABLET PO SCH ×3 (10:42→21:08)
[2018-12-22] MEDS: PROMETHAZINE INJ 25 MG in SODIUM CHLORIDE 0.9% 50 ML IV PRN (11:29)
[2018-12-22] MEDS: MORPHINE 2 MG/ML CARPUJECT IVP PRN ×3 (14:04→22:08)
[2018-12-22] MEDS: SODIUM CHLORIDE FLUSH 0.9% 10 ML SYRINGE IVP PRN (14:07)
--- NOTE | 2018-12-22 14:20 | Ultrasound Report ---
Reason: left flank pain, hypophospatemia,stones Procedure Date: 12/22/2018 Accession Number: [id number] / [id number] Procedure: US - Retroperitoneal CPT Code: FULL RESULT: EXAM: RENAL ULTRASOUND EXAM DATE: 12/22/2018 02:00 PM. CLINICAL HISTORY: Left flank pain, hypophosphatemia, question stones. COMPARISON: CT abdomen pelvis 05/22/2018. TECHNIQUE: Real-time scanning was performed with static images obtained. FINDINGS: Right Kidney: 9.1 x 4.8 x 4.7 cm. No hydronephrosis or shadowing stones. Grossly unremarkable parenchymal echogenicity and cortical thickness. No mass or perinephric fluid. Left Kidney: 9.8 x 4.9 x 4 cm. No hydronephrosis or shadowing stones. Lobular renal contour compatible with accentuated lobulations. Grossly unremarkable parenchymal echogenicity and cortical thickness. No focal lesion identified. No perinephric fluid. Bladder: Smooth contour with no focal lesion identified. Bilateral jets seen. The prevoid bladder volume was 419 cc. The postvoid bladder volume was 180 cc. IMPRESSION: 1. No hydronephrosis, shadowing stones, or focal renal abnormality identified. 2. Postvoid residual 180 cc. No focal bladder abnormality identified. RADIA
[2018-12-22] MEDS: NICOTINE 14 MG PATCH TOP SCH (16:35)
[2018-12-22] MEDS ORDERED: POTASSIUM PHOSPHATE 15 MMOL in SODIUM CHLORIDE 0.9% 250 ML IV SCH (19:13)
[2018-12-22 19:53] LABS: CALCIUM 6.9 mg/dL (8.5-10.3); MAGNESIUM 1.8 mg/dL (1.7-2.8); PHOSPHORUS 2.7 mg/dL (2.5-4.6)
[2018-12-22] MEDS: ATORVASTATIN 10 MG TABLET PO SCH (21:08)
[2018-12-22] MEDS ORDERED: CHERRY SYRUP 10 ML UDC PO ONE (21:35)
[2018-12-23] MEDS: MORPHINE 2 MG/ML CARPUJECT IVP PRN ×2 (00:16→03:38)
[2018-12-23] MEDS ORDERED: CALCIUM GLUCONATE 1,000 MG in SODIUM CHLORIDE 0.9% 50 ML IV SCH (02:47)
[2018-12-23] MEDS: SODIUM CHLORIDE FLUSH 0.9% 10 ML SYRINGE IVP PRN ×3 (03:40→05:13)
[2018-12-23] MEDS: SODIUM CHLORIDE FLUSH 0.9% 10 ML SYRINGE IVP SCH ×2 (04:05→09:58)
[2018-12-23] MEDS: PROMETHAZINE INJ 25 MG in SODIUM CHLORIDE 0.9% 50 ML IV PRN (04:31)
[2018-12-23 06:11] LABS: BASOPHILS # (AUTO) 0.1 10^3/uL (0.0-0.1); BASOPHILS % (AUTO) 0.8 %; EOSINOPHILS # (AUTO) 0.7 10^3/uL (0.0-0.7); LYMPHOCYTES # (AUTO) 3.6 10^3/uL (1.5-3.5); MEAN CORPUSCULAR HEMOGLOBIN 27.5 pg (27.0-31.0); MEAN CORPUSCULAR HGB CONC 31.6 g/dL (32.0-36.0); MEAN CORPUSCULAR VOLUME 86.9 fL (81.0-99.0); MEAN PLATELET VOLUME 9.5 fL (7.9-10.8); MONOCYTES # (AUTO) 0.5 10^3/uL (0.0-1.0); MONOCYTES % (AUTO) 7.5 %; NEUTROPHILS # (AUTO) 2.4 10^3/uL (1.5-6.6); NEUTROPHILS % (AUTO) 33.7 %; PLT - PLATELET COUNT 201 10^3/uL (130-450); RED BLOOD COUNT 3.26 10^6/uL (4.20-5.40); WHITE BLOOD COUNT 7.3 x10^3/uL (4.8-10.8)
[2018-12-23 06:27] LABS: ALBUMIN 2.7 g/dL (3.2-5.5); ALBUMIN/GLOBULIN RATIO 1.1 (1.0-2.2); BILIRUBIN,TOTAL 0.2 mg/dL (0.2-1.0); CALCIUM 7.2 mg/dL (8.5-10.3); CREATININE 0.6 mg/dL (0.4-1.0); PHOSPHORUS 3.7 mg/dL (2.5-4.6); TOTAL PROTEIN 5.2 g/dL (6.7-8.2)
[2018-12-23] MEDS: LEVOTHYROXINE 112 MCG TABLET PO SCH (06:56)
[2018-12-23] MEDS: NS W/20 MEQ KCL 1,000 ML IV SCH (06:59)
[2018-12-23 08:22] VITALS: BP 126/82
[2018-12-23] MEDS ORDERED: DOCUSATE SODIUM 250 MG CAPSULE PO SCH (09:00)
[2018-12-23] MEDS ORDERED: SENNA 8.6 MG TABLET PO SCH (09:00)
[2018-12-23] MEDS: INSULIN ASPART 300 UNIT/3 ML PEN SUBQ SCH ×2 (09:51→12:02)
[2018-12-23] MEDS: INSULIN GLARGINE 300 UNIT/3 ML PEN SUBQ SCH (09:52)
[2018-12-23] MEDS: ENOXAPARIN 40 MG/0.4 ML SYRINGE SUBQ SCH (09:55)
[2018-12-23] MEDS: POLYETHYLENE GLYCOL 3350 17 GM PACKET PO SCH (09:57)
[2018-12-23] MEDS: FAMOTIDINE 20 MG TABLET PO SCH (09:57)
[2018-12-23] MEDS: NICOTINE 14 MG PATCH TOP SCH (09:57)
[2018-12-23] MEDS: ESCITALOPRAM 10 MG TABLET PO SCH (09:58)
[2018-12-23] MEDS: buPROPion XL 150 MG TABLET PO SCH (09:58)
[2018-12-23] MEDS: BACLOFEN 10 MG TABLET PO SCH ×2 (09:58→12:58)
--- NOTE | 2018-12-23 11:56 | Discharge Plan ---
Discharge Plan Disposition: 01 Home, Self Care Condition: Good Diet: Diabetic Activity Restrictions: Activity as Tolerated Shower Restrictions: No Driving Restrictions: No Weight Bearing: Full Weight Additional Instructions or Follow Up instructions: You were admitted for multiple falls, weakness, and abdominal pain. Your electrolytes were very abnormal, especially your phosphorus and potassium, which was replaced using IV treatment. You were not found to have an infection. There was an issue with your insulin pump and a outreach educator looked into the status of your pump, which was the sensor part for your CGM and it is expected to be in the mail when you get home today. There were no changes made to your medication list. Please see your PCP within a week and try to eat regular meals at home. Follow-Up Care: [facility] No Smoking: If you smoke, Please STOP! Call for help. Follow-up with: Isatu Belle MD [Primary Care Provider] -
--- NOTE | 2018-12-23 12:13 | DISCHARGE SUMMARY ---
Discharge Summary Admit Date: 12/21/18 Discharge Date: 12/23/18 Discharging Provider: STANISLAW Whyte Primary Care Provider: Isatu Belle Code Status: Attempt Resuscitation Condition at Discharge: Good Discharge Disposition: 01 Home, Self Care - DIAGNOSES Admission Diagnoses: Hypokalemia (E87.6) Hypoglycemia, unspecified (E16.2) Elevated white blood cell count, unspecified (D72.829) Other disorders of phosphorus metabolism (E83.39) Unspecified fall, initial encounter (W19.XXXA) Type 1 diabetes mellitus with hyperglycemia (E10.65) Weakness (R53.1) Other chronic pain (G89.29) Opioid dependence, uncomplicated (F11.20) Hypothyroidism, unspecified (E03.9) Major depressive disorder, single episode, unspecified (F32.9) Unspecified convulsions (R56.9) Discharge Diagnoses with Status of Each Condition: Hypokalemia (E87.6) Resolved. Hypophosphatemia (E83.39) Resolved. Hypoglycemia (E16.2) Resolved. Acute metabolic encephalopathy due to hypoglycemia (G93.41) Resolved. Falls (W19.XXXA) chronic, stable. Chronic pain (G89.29) chronic, stable. Opiate dependence (F11.20) chronic, stable. DM (diabetes mellitus), type 1, uncontrolled (E10.65) chronic, stable. Leukocytosis (D72.829) Resolved. Hypothyroidism (E03.9) chronic, stable. Depression (F32.9) chronic, stable. Left flank pain (R10.9) chronic, stable. Neurogenic dysfunction of the urinary bladder (N31.9) chronic, stable. Seizure disorder (G40.909) chronic, stable. 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 She presented to the ED via EMS after her daughter had called 911 for her mother who had fallen outside and could not get up. She states that she has been having problems with her diabetes and lost the parts to her insulin pump. A friend was with the patient who states her that her blood sugar was elevated around 600 over the weekend. EMS reported a blood sugar of 72 while in route. On my exam the friend is no longer in the room. The patient complains of increased lethargy, a mid to low back pain that has become worse since her ~13 falls in the past few days, and she has had a very poor appetite with nausea. She denies chest pain, chest pressure, shortness of breath, a new cough, a rash, bleeding, hallucinations, increased anxiety, injury to her head, domestic abuse, or syncope. She admits to a chronic sore throat from her post nasal drip, nausea, and abnormal blood sugar levels. Labs show a very low potassium of 2.5, a low phos of less than 1, a low glucose of 38, and an elevated WBC count of 16.9 with an unknown source. A urine showed no evidence of infection, chest x- ray was clear and a head CT was normal. She will be admitted to inpatient as her expected stay is greater than 2 night given her profound electrolyte abnormalities and suspected infection. - HOSPITAL COURSE Hospital Course: The patient's electrolytes were replaced and she was treated for her acute left flank pain. Given her history of kidney stones, a kidney US was completed showing no hydronephrosis, no stones or focal renal abnormalities. She likely had back strain as a result of her prolonged weakness and falls leading up to this admission. She remained worried about her daughter's safety at home with her son being a heroin addict and the potential of him coming by the house when she was not home. Her phosphorus and potassium were the most troublesome, but finally were normal on the day of discharge. She was also found to have hypoglycemia on admission that also normalized on discharge. Our special educator met with her to ensure that supplies needed for her insulin pump were expected to arrive by mail at her home today. She was very anxious to return home and was discharged via private car in stable condition. No narcotics were prescribed, and none of her home meds were changed. - ALLERGIES Allergies/Adverse Reactions: Allergies Allergy/AdvReac Type Severity Reaction Status Date / Time carisoprodol [From Soma] Allergy Unknown Verified 12/21/18 13:13 cyclobenzaprine HCl * Allergy Edema Verified 12/21/18 13:13 [From Flexeril] divalproex sodium Allergy Rash Verified 12/21/18 13:13 [From Depakote] gabapentin [From Neurontin] Allergy Edema Verified 12/21/18 13:13 lidocaine Allergy Unknown Verified 12/21/18 13:13 nitrofurantoin Allergy Rash Verified 12/21/18 13:13 macrocrystalline * [From Macrodantin] nortriptyline Allergy Unknown Verified 12/21/18 13:13 ondansetron [From Zofran] Allergy Hives Verified 12/21/18 13:13 ondansetron HCl * Allergy Hives Verified 12/21/18 13:13 [From Zofran (as hydrochloride)] pregabalin [From Lyrica] Allergy Headache Verified 12/21/18 13:13 - MEDICATIONS Home Medications: Ambulatory Orders Medication Instructions Recorded Confirmed Insulin Lispro [Humalog] 20 - 25 units SQ DAILY 10/30/15 12/21/18 clonazePAM [Clonazepam] 1 mg PO TID PRN 10/30/15 12/21/18 Baclofen 10 mg PO QID 06/03/16 12/22/18 Escitalopram Oxalate [Lexapro] 40 mg PO DAILY 05/22/18 12/21/18 Levothyroxine [Synthroid] 112 mcg PO QDAC 05/22/18 12/21/18 Prazosin HCl 5 mg PO QPM 05/22/18 12/21/18 Simvastatin 20 mg PO QPM 05/22/18 12/21/18 Spironolactone [Aldactone] 100 mg PO DAILY 05/22/18 12/21/18 Trazodone HCl 200 mg PO QPM 05/22/18 12/21/18 Bupropion HCl [Bupropion Xl] 150 mg PO DAILY 11/14/18 12/21/18 Pantoprazole Sodium [Protonix] 20 mg PO QDAC 11/14/18 12/21/18 Metoclopramide [Reglan] 10 mg PO PRN PRN 12/21/18 12/21/18 - PHYSICAL EXAM AT DISCHARGE General Appearance: positive: No acute distress, Alert, Mild distress, Anxious Eyes Bilateral: positive: PERRL ENT: positive: Pharynx nml, No signs of dehydration Neck: positive: Thyroid nml, No JVD, Trachea midline Respiratory: positive: Chest non-tender, No respiratory distress, Breath sounds nml Cardiovascular: positive: Regular rate & rhythm, No gallop, Systolic murmur Peripheral Pulses: positive: 2+ Abdomen: positive: Non-tender, Nml bowel sounds, Other (rounded, soft) Back: positive: Nml inspection Skin: positive: Color nml, No rash, Warm, Dry Extremities: positive: Non-tender, Full ROM, Nml appearance, No pedal edema Neurologic/Psychiatric: positive: Oriented x3, CN's nml (2-12), Motor nml, Se nsation nml, Depressed mood/affect, Other (tearful at times) Reflexes: Bicep (R): 3+, Bicep (L): 3+ - LABS Result Diagrams: 12/23/18 05:55 12/23/18 05:55 - DIAGNOSTIC IMAGING Diagnostic Imaging Results: Final report reviewed Diagnostic Imaging Results Comments: EXAM: CT HEAD EXAM DATE: 12/21/2018 01:54 PM IMPRESSION: No acute intracranial abnormality. EXAM: CHEST RADIOGRAPHY EXAM DATE: 12/21/2018 03:06 PM IMPRESSION: Negative chest EXAM: RENAL ULTRASOUND EXAM DATE: 12/22/2018 02:00 PM FINDINGS: Right Kidney: 9.1 x 4.8 x 4.7 cm. No hydronephrosis or shadowing stones. Grossly unremarkable parenchymal echogenicity and cortical thickness. No mass or perinephric fluid. Left Kidney: 9.8 x 4.9 x 4 cm. No hydronephrosis or shadowing stones. Lobular renal contour compatible with accentuated lobulations. Grossly unremarkable parenchymal echogenicity and cortical thickness. No focal lesion identified. No perinephric fluid. Bladder: Smooth contour with no focal lesion identified. Bilateral jets seen. The pre-void bladder volume was 419 cc. The post-void bladder volume was 180 cc. IMPRESSION: 1. No hydronephrosis, shadowing stones, or focal renal abnormality identified. 2. Post-void residual 180 cc. No focal bladder abnormality identified. - SEPSIS Current Stage of Sepsis: Ruled out - FOLLOW UP Follow Up: Disposition: Home, Self Care Diet: Diabetic Additional Instructions or Follow Up instructions: You were admitted for multiple falls, weakness, and abdominal pain. Your electrolytes were very abnormal, especially your phosphorus and potassium, which was replaced using IV treatment. You were not found to have an infection. There was an issue with your insulin pump and a special educator looked into the status of your pump, which was the sensor part for your CGM and it is expected to be in the mail when you get home today. There were no changes made to your medication list. Please see your PCP within a week and try to eat regular meals at home. - TIME SPENT Time Spent in Discharge (Minutes): 50
[2018-12-23] MEDS ORDERED: LACTULOSE 10 GM /15 ML UDC PO SCH (13:00)
== END 2018-12-23 13:50 | disposition home or self-care (01) | DRG 642 ==
LOC: EDUNIT# → ED 13:03 → MS2 17:10
PROVIDERS: ADMIT Nurse Practitioner; ATTEND Nurse Practitioner
DX: E83.39 Other disorders of phosphorus metabolism (principal); E87.1 Hypo-osmolality and hyponatremia; F11.20 Opioid dependence, uncomplicated; E87.6 Hypokalemia; R41.82 Altered mental status, unspecified; E78.00 Pure hypercholesterolemia, unspecified; R01.1 Cardiac murmur, unspecified; G40.909 Epilepsy, unspecified, not intractable, without status epilepticus; E03.9 Hypothyroidism, unspecified; K21.9 Gastro-esophageal reflux disease without esophagitis; Z87.442 Personal history of urinary calculi; H54.7 Unspecified visual loss; J32.9 Chronic sinusitis, unspecified; F41.9 Anxiety disorder, unspecified; F31.9 Bipolar disorder, unspecified; F90.9 Attention-deficit hyperactivity disorder, unspecified type; F43.10 Post-traumatic stress disorder, unspecified; M19.90 Unspecified osteoarthritis, unspecified site; M79.7 Fibromyalgia; G89.29 Other chronic pain; M54.9 Dorsalgia, unspecified; F17.200 Nicotine dependence, unspecified, uncomplicated; E10.649 Type 1 diabetes mellitus with hypoglycemia without coma; G89.4 Chronic pain syndrome; E10.42 Type 1 diabetes mellitus with diabetic polyneuropathy; D50.9 Iron deficiency anemia, unspecified; Z87.440 Personal history of urinary (tract) infections; R27.0 Ataxia, unspecified; Z98.84 Bariatric surgery status; G43.909 Migraine, unspecified, not intractable, without status migrainosus; G56.22 Lesion of ulnar nerve, left upper limb; Z91.81 History of falling; J31.2 Chronic pharyngitis; N31.9 Neuromuscular dysfunction of bladder, unspecified
CPT/HCPCS: 36415; 51701; 70450; 71045; 76770; 80048; 80053; 80306; 80307; 80320; 80329; 81001; 81003; 82550; 83036; 83605; 83690; 83735; 84100; 84443; 84484; 85025; 87086; 87275; 87276; 93005; 99284

== ENCOUNTER 2019-01-22 12:13 | Inpatient (IN) | payer MEDICARE, MEDICAID ==
[2019-01-22 13:08] LABS: BILIRUBIN,URINE NEGATIVE (NEGATIVE); GLUCOSE, URINE (UA) >=1000 mg/dL (NEGATIVE); KETONES,URINE (UA) 40 mg/dL (NEGATIVE); LEUKOCYTE ESTERASE, URINE NEGATIVE (NEGATIVE); NITRITE,URINE NEGATIVE (NEGATIVE); OCCULT BLOOD,URINE NEGATIVE (NEGATIVE); PH,URINE 5.5 PH (5.0-7.5); PROTEIN,URINE NEGATIVE (NEGATIVE); UROBILINOGEN,URINE 0.2 (NORMAL) E.U./dL (NORMAL)
[2019-01-22 13:12] LABS: CLARITY,URINE CLEAR (CLEAR)
[2019-01-22 13:14] LABS: BASOPHILS % (AUTO) 0.5 %; EOSINOPHILS # (AUTO) 0.1 10^3/uL (0.0-0.7); EOSINOPHILS % (AUTO) 0.8 %; KETONES, SERUM (ACETEST) SMALL (NEGATIVE); LYMPHOCYTES # (AUTO) 0.8 10^3/uL (1.5-3.5); LYMPHOCYTES % (AUTO) 9.9 %; MEAN CORPUSCULAR HEMOGLOBIN 27.3 pg (27.0-31.0); MEAN CORPUSCULAR HGB CONC 31.2 g/dL (32.0-36.0); MEAN CORPUSCULAR VOLUME 87.5 fL (81.0-99.0); MEAN PLATELET VOLUME 9.9 fL (7.9-10.8); MONOCYTES # (AUTO) 0.6 10^3/uL (0.0-1.0); MONOCYTES % (AUTO) 8.2 %; NEUTROPHILS # (AUTO) 6.2 10^3/uL (1.5-6.6); NEUTROPHILS % (AUTO) 80.6 %; PLT - PLATELET COUNT 218 10^3/uL (130-450); RED BLOOD COUNT 4.04 10^6/uL (4.20-5.40); RED CELL DISTRIBUTION WIDTH 16.6 % (12.0-15.0); WHITE BLOOD COUNT 7.7 x10^3/uL (4.8-10.8)
[2019-01-22 13:21] LABS: VBG BASE EXCESS -9.7 mmol/L (-2 - +2); VBG PCO2 29.5 mmHg (41-51); VBG PH 7.326 (7.31-7.41); VBG PO2 33.2 mmHg (25-47)
[2019-01-22] MEDS ORDERED: ELECTROLYTE-A SOLUTION 1,000 ML IV STA (13:23)
[2019-01-22] MEDS ORDERED: ELECTROLYTE-A SOLUTION 1,000 ML IV ONE (13:23)
[2019-01-22] MEDS ORDERED: HYDROmorphone 1 MG/ML CARPUJECT IVP STA ×2 (13:30→15:56)
[2019-01-22] MEDS ORDERED: PROMETHAZINE INJ 25 MG in SODIUM CHLORIDE 0.9% 50 ML IV STA (13:30)
--- NOTE | 2019-01-22 13:32 | ED Physician Documentation ---
History of Present Illness - Stated complaint Stated Complaint: WEAKNESS/INCREASED BS - Chief complaint Chief Complaint: General - History obtained from History obtained from: Patient, Family - History of Present Illness Timing: How many days ago (several) Pain level max: 7 Pain level now: 5 - Additonal information Additional information: 43-year-old female presents to the emergency department with a complaint of "not feeling well". She states that her blood sugar has read "high" on her glucometer for the past 4 days. Having abdominal pain and nausea. She also has a fractured left foot. States has had a mild cough but no fevers. No vomiting. No diarrhea. Has not been using her insulin pump at home. Nothing makes it better or worse Review of Systems Ten Systems: 10 systems reviewed and negative Constitutional: denies: Fever, Chills Ears: denies: Ear pain Nose: denies: Rhinorrhea / runny nose, Congestion Throat: denies: Sore throat Cardiac: denies: Chest pain / pressure Skin: denies: Rash Musculoskeletal: denies: Neck pain, Back pain Neurologic: denies: Headache PD PAST MEDICAL HISTORY - Past Medical History Cardiovascular: High cholesterol, Murmur Respiratory: COPD, Pneumonia, Shortness of breath Neuro: Headaches, Peripheral neuropathy, Seizure disorder, Other Endocrine/Autoimmune: Type 1 diabetes, HyPOthyroidism GI: GERD, GI bleed, Ulcers, 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: Other : Kidney stones, Other HEENT: Chronic vision loss, Chronic sinusitis Psych: Depression, Anxiety, Bipolar disorder, ADD/ADHD, Post traumatic stress disorder, Other Musculoskeletal: Osteoarthritis, Fibromyalgia, Fatigue, Chronic back pain Derm: None - Past Surgical History Past Surgical History: Yes General: Gastric surgery, Other Ortho: Rotator cuff repair, 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, Endometrial ablation, Tubal ligation - Present Medications Home Medications: Ambulatory Orders Medication Instructions Recorded Confirmed Insulin Lispro [Humalog] 20 - 25 units SQ DAILY 10/30/15 12/21/18 clonazePAM [Clonazepam] 1 mg PO TID PRN 10/30/15 12/21/18 Baclofen 10 mg PO QID 06/03/16 12/22/18 Escitalopram Oxalate [Lexapro] 40 mg PO DAILY 05/22/18 12/21/18 Levothyroxine [Synthroid] 112 mcg PO QDAC 05/22/18 12/21/18 Prazosin HCl 5 mg PO QPM 05/22/18 12/21/18 Simvastatin 20 mg PO QPM 05/22/18 12/21/18 Spironolactone [Aldactone] 100 mg PO DAILY 05/22/18 12/21/18 Trazodone HCl 200 mg PO QPM 05/22/18 12/21/18 Bupropion HCl [Bupropion Xl] 150 mg PO DAILY 11/14/18 12/21/18 Pantoprazole Sodium [Protonix] 20 mg PO QDAC 11/14/18 12/21/18 Metoclopramide [Reglan] 10 mg PO PRN PRN 12/21/18 12/21/18 Butalb/Acetam/Caff 50/325/40 2 tab PO TID PRN 01/22/19 [Fioricet] Dextroamphetamine/Amphetamine 20 mg PO TID 01/22/19 01/22/19 [Adderall 20 mg Tablet] Dicyclomine HCl 20 mg PO QID PRN 01/22/19 01/22/19 Duloxetine HCl 60 mg PO DAILY 01/22/19 01/22/19 Oxycodone HCl 10 mg PO Q6H 01/22/19 01/22/19 Pot Citrate 1080mg 1,080 mg PO BID 01/22/19 01/22/19 Promethazine [Phenergan] 25 mg PO Q6H PRN 01/22/19 - Allergies Allergies/Adverse Reactions: Allergies Allergy/AdvReac Type Severity Reaction Status Date / Time carisoprodol [From Soma] Allergy Unknown Verified 01/22/19 12:23 cyclobenzaprine HCl * Allergy Edema Verified 01/22/19 12:23 [From Flexeril] divalproex sodium Allergy Rash Verified 01/22/19 12:23 [From Depakote] gabapentin [From Neurontin] Allergy Edema Verified 01/22/19 12:23 lidocaine Allergy Unknown Verified 01/22/19 12:23 nitrofurantoin Allergy Rash Verified 01/22/19 12:23 macrocrystalline * [From Macrodantin] nortriptyline Allergy Unknown Verified 01/22/19 12:23 ondansetron [From Zofran] Allergy Hives Verified 01/22/19 12:23 ondansetron HCl * Allergy Hives Verified 01/22/19 12:23 [From Zofran (as hydrochloride)] pregabalin [From Lyrica] Allergy Headache Verified 01/22/19 12:23 - Social History Does the pt smoke?: Yes Smoking Status: Current every day smoker Does the pt drink ETOH?: No Does the pt have substance abuse?: No - Immunizations Immunizations are current?: Yes Immunizations: TDAP >10years/unknown - POLST Patient has POLST: No POLST Status: Full Code PD ED PE NORMAL - Vitals Vital signs reviewed: Yes - General General: Alert and oriented X 3, Well developed/nourished - HEENT HEENT: PERRL, Other (dry lips and tongue) - Neck Neck: Supple, no meningeal sign - Cardiac Cardiac: RRR, Strong equal pulses - Respiratory Respiratory: No respiratory distress, Clear bilaterally - Abdomen Abdomen: Soft, Non tender, Non distended - Back Back: No CVA TTP - Derm Derm: Warm and dry, No rash - Extremities Extremities: No tenderness to palpate, Other (walking boot on L foot.) - Neuro Neuro: Alert and oriented X 3 - Psych Psych: Normal mood, Normal affect Results - Vitals Vitals: Vital Signs - 24 hr 01/22/19 01/22/19 01/22/19 12:19 13:10 14:18 Temperature 36.5 C Heart Rate 104 H 102 H 81 Respiratory 14 20 24 Rate Blood Pressure 112/60 123/73 117/76 O2 Saturation 100 100 100 Oxygen O2 Source Room air - Labs Labs: Laboratory Tests 01/22/19 01/22/19 01/22/19 12:58 13:06 13:06 WBC 7.7 RBC 4.04 L Hgb 11.0 L Hct 35.3 L MCV 87.5 MCH 27.3 MCHC 31.2 L RDW 16.6 H Plt Count 218 MPV 9.9 Neut # (Auto) 6.2 Lymph # (Auto) 0.8 L Cook # (Auto) 0.6 Eos # (Auto) 0.1 Baso # (Auto) 0.0 Absolute Nucleated RBC 0.00 Nucleated RBC % 0.0 VBG pH VBG pCO2 VBG pO2 VBG HCO3 VBG Total CO2 VBG O2 Saturation VBG Base Excess Sodium 121 L Potassium 2.9 L Chloride 88 L Carbon Dioxide 14 L Anion Gap 19.0 H BUN 13 Creatinine 1.3 H Estimated GFR (MDRD) 44 L Glucose 679 H* Calcium 8.0 L Total Bilirubin 0.9 AST 37 ALT 26 Alkaline Phosphatase 100 Total Protein 7.2 Albumin 3.7 Globulin 3.5 Albumin/Globulin Ratio 1.1 Lipase 19 L Urine Color LT. YELLOW Urine Clarity CLEAR Urine pH 5.5 Ur Specific [place] 1.010 Urine Protein NEGATIVE Urine Glucose (UA) >=1000 H Urine Ketones 40 H Urine Occult Blood NEGATIVE Urine Nitrite NEGATIVE Urine Bilirubin NEGATIVE Urine Urobilinogen 0.2 (NORMAL) Ur Leukocyte Esterase NEGATIVE Ur Microscopic Review NOT INDICATED Urine Culture Comments NOT INDICATED Serum Ketones SMALL H 01/22/19 13:06 WBC RBC Hgb Hct MCV MCH MCHC RDW Plt Count MPV Neut # (Auto) Lymph # (Auto) Cook # (Auto) Eos # (Auto) Baso # (Auto) Absolute Nucleated RBC Nucleated RBC % VBG pH 7.326 VBG pCO2 29.5 L VBG pO2 33.2 VBG HCO3 15.1 L VBG Total CO2 16.0 L VBG O2 Saturation 68.2 VBG Base Excess -9.7 L Sodium Potassium Chloride Carbon Dioxide Anion Gap BUN Creatinine Estimated GFR (MDRD) Glucose Calcium Total Bilirubin AST ALT Alkaline Phosphatase Total Protein Albumin Globulin Albumin/Globulin Ratio Lipase Urine Color Urine Clarity Urine pH Ur Specific [place] Urine Protein Urine Glucose (UA) Urine Ketones Urine Occult Blood Urine Nitrite Urine Bilirubin Urine Urobilinogen Ur Leukocyte Esterase Ur Microscopic Review Urine Culture Comments Serum Ketones PD MEDICAL DECISION MAKING - ED course Complexity details: reviewed results, re-evaluated patient, considered differential, d/w patient, d/w family ED course: 43-year-old female with DKA. 2 Lines placed. Given IV fluids, placed on Plasma- Lyte and started on insulin drip. Will admit to the hospitalist. Discussed the case with Dr. Bird Who accepts This document was made in part using voice recognition software. While efforts are made to proofread this document, sound alike and grammatical errors may occur. Departure - Departure Disposition: 66 [facility] DC/Xfer Clinical Impression: DKA (diabetic ketoacidosis) Qualifiers: Diabetes mellitus type: type 1 Diabetes mellitus complication detail: without coma Qualified Code(s): E10.10 - Type 1 diabetes mellitus with ketoacidosis without coma Condition: Stable
[2019-01-22] MEDS ORDERED: INSULIN REGULAR HUMAN 100 UNIT in SODIUM CHLORIDE 0.9% 100ML 99 ML SUBQ STA (13:33)
[2019-01-22 13:57] LABS: ALBUMIN 3.7 g/dL (3.2-5.5); ALBUMIN/GLOBULIN RATIO 1.1 (1.0-2.2); ALKALINE PHOSPHATASE 100 IU/L (42-121); AST ASPARTATE AMINOTRANSFERASE 37 IU/L (10-42); BILIRUBIN,TOTAL 0.9 mg/dL (0.2-1.0); BUN - BLOOD UREA NITROGEN 13 mg/dL (6-20); CARBON DIOXIDE - CO2 14 mmol/L (21-32); CHLORIDE 88 mmol/L (101-111); CREATININE 1.3 mg/dL (0.4-1.0); GFR - MDRD 44 (>89); LIPASE 19 U/L (22-51); SODIUM 121 mmol/L (135-145); TOTAL PROTEIN 7.2 g/dL (6.7-8.2)
[2019-01-22 13:58] LABS: GLUCOSE 679 mg/dL (70-100)
[2019-01-22] MEDS ORDERED: INSULIN REGULAR HUMAN 100 UNIT in SODIUM CHLORIDE 0.9% 100ML 99 ML IV STA (13:58)
[2019-01-22 13:59] LABS: ALT ALANINE AMINOTRANSFERASE 26 IU/L (10-60)
[2019-01-22] MEDS ORDERED: POTASSIUM BICARB 25 MEQ TABLET PO STA (14:54)
[2019-01-22 15:57] LABS: VBG BASE EXCESS -1.4 mmol/L (-2 - +2); VBG PCO2 31.7 mmHg (41-51); VBG PH 7.456 (7.31-7.41); VBG PO2 28.4 mmHg (25-47); VBG TOTAL CO2 22.8 mmol/L (24-29)
[2019-01-22] MEDS ORDERED: POTASSIUM CHLOR 10 MEQ/100 ML 10 MEQ/100 ML BAG IV SCH ×2 (16:00→18:40)
[2019-01-22 16:07] LABS: KETONES, SERUM (ACETEST) NEGATIVE (NEGATIVE)
[2019-01-22 16:08] LABS: BUN - BLOOD UREA NITROGEN 9 mg/dL (6-20); CALCIUM 7.9 mg/dL (8.5-10.3); CARBON DIOXIDE - CO2 22 mmol/L (21-32); CHLORIDE 98 mmol/L (101-111); CREATININE 1.2 mg/dL (0.4-1.0); GFR - MDRD 49 (>89); GLUCOSE 270 mg/dL (70-100); SODIUM 132 mmol/L (135-145)
[2019-01-22 16:24] LABS: HB2 TOTAL 10.8 g/dL; HEMOGLOBIN A1C 0.77 g/dL; HEMOGLOBIN A1C % 8.7 % (4.6-6.2)
[2019-01-22] MEDS: INSULIN REGULAR HUMAN 100 UNIT in SODIUM CHLORIDE 0.9% 100ML 99 ML IV SCH (16:30)
[2019-01-22] MEDS: SODIUM CHLORIDE 0.9% 1,000 ML IV SCH (16:45)
[2019-01-22 17:00] LABS: KETONES, SERUM (ACETEST) NEGATIVE (NEGATIVE)
[2019-01-22 17:04] LABS: BUN - BLOOD UREA NITROGEN 8 mg/dL (6-20); CALCIUM 7.8 mg/dL (8.5-10.3); CARBON DIOXIDE - CO2 24 mmol/L (21-32); CHLORIDE 101 mmol/L (101-111); CREATININE 0.8 mg/dL (0.4-1.0); GFR - MDRD 78 (>89); GLUCOSE 192 mg/dL (70-100); MAGNESIUM 2.1 mg/dL (1.7-2.8); SODIUM 134 mmol/L (135-145)
--- NOTE | 2019-01-22 17:38 | XRAY Report ---
Reason: Cough Procedure Date: 01/22/2019 Accession Number: [id number] / [id number] Procedure: XR - Chest 1 View X-Ray CPT Code: 81322 FULL RESULT: EXAM: CHEST RADIOGRAPHY EXAM DATE: 01/22/2019 05:26 PM. CLINICAL HISTORY: Cough. COMPARISON: CHEST 1 VIEW 12/21/2018 2:55 PM. TECHNIQUE: 1 view. FINDINGS: Lungs/Pleura: Bilateral central bronchial wall thickening noted. No superimposed focal consolidation. No pleural effusion or pneumothorax. Mediastinum: Within exam limitations, the cardiomediastinal contour is normal. Other: None. IMPRESSION: 1. Bilateral central bronchial wall thickening could reflect reactive airways or bronchitis. No evidence of pneumonia. RADIA
[2019-01-22] MEDS ORDERED: METOCLOPRAMIDE 10 MG TABLET PO PRN (17:40)
--- NOTE | 2019-01-22 17:46 | HISTORY & PHYSICAL EXAMINATION ---
DATE OF SERVICE: 01/22/2019 Physician: Saira Bird MD HISTORY OF PRESENT ILLNESS: This is a 43-year-old white female with a history of type 1 diabetes, on an insulin pump, history of anxiety and depression, PTSD, opiate dependence, remote history of GI bleed. The patient stopped using her insulin pump for unknown reason. She does say that she "does not know where it is." The patient presents after 3 days of fatigue, somnolence, and nausea and vomiting and is found to be in DKA. Therefore, her answers are with very short sentences and she is lethargic and falls asleep. PAST MEDICAL HISTORY: Diabetes, hyperlipidemia, COPD, peripheral neuropathy, seizure disorder, hypothyroidism, remote gastrointestinal bleed with GERD and ulcer history, prior kidney stones, vision changes, PTSD, bipolar disorder, anxiety and depression, arthritis and fibromyalgia. MEDICATIONS: 1. Insulin pump. 2. Clonazepam 1 mg t.i.d. p.r.n. 3. Baclofen 10 mg q.i.d. 4. Lexapro 40 mg daily. 5. Synthroid 112 mcg daily. 6. Prazosin 5 mg every night. 7. Simvastatin 20 mg every night. 8. Spironolactone 100 mg daily. 9. Trazodone 200 mg every night. 10. Bupropion 150 mg daily. 11. Protonix 20 mg daily. 12. Reglan 10 mg p.r.n. 13. Fioricet tabs t.i.d. p.r.n. pain. 14. Adderall 20 mg t.i.d. 15. Dicyclomine 20 mg q.i.d. p.r.n. 16. Duloxetine 60 mg daily. 17. Oxycodone 10 mg q.i.d., apparently scheduled protocol. 18. Potassium citrate unknown dose b.i.d. 19. Phenergan 25 mg p.r.n. ALLERGIES: RISPERDAL, FLEXERIL, DEPAKOTE, NEURONTIN, LIDOCAINE, MACRODANTIN, NORTRIPTYLINE, ZOFRAN, LYRICA. SOCIAL HISTORY: The patient is a smoker. Denies any alcohol use or substance abuse now, but there was opiate dependence in the past. FAMILY HISTORY: No inherited diseases. REVIEW OF SYSTEMS: A comprehensive review of systems was performed by speaking to her plus mostly chart review and the pertinent positives are listed, the rest are negative. PHYSICAL EXAMINATION: GENERAL: Edentulous white female. She appears older than her age. She is lethargic, but moving everything spontaneously. VITAL SIGNS: Blood pressure 112/60, heart rate 104 and sinus tachycardia, afebrile, room air saturation 100%. HEENT: Reveals edentulous mouth, very dry mucosa. NECK: Without JVD and supple. CHEST: Clear. CARDIOVASCULAR: Heart sounds distant. ABDOMEN: Soft, nontender. EXTREMITIES: No clubbing, cyanosis or edema. NEUROLOGIC: Lethargy, but overall grossly intact. LABORATORY DATA: Sodium 121, potassium 2.9, BUN 13, creatinine 1.3, glucose 679 with small serum ketones. White count 7.7, hemoglobin 11, platelet count 218,000. Her first venous blood gas showed a pH of 7.32. Urinalysis has high glucose and ketones, but negative for nitrites and leukocyte esterase. Normal liver tests and lipase. Her A1c is 8.7. Calcium 8.0. No chest x-ray was done. No EKG was done. IMPRESSION/DIAGNOSES 1. Diabetic ketoacidosis. 2. Severe hypokalemia despite the high glucose. 3. Noncompliance with diabetic treatment. 4. Hypothyroidism. 5. Anxiety and depression. PLAN: Place the patient in the ICU and on DKA protocol with rapid saline infusion for hydration and aggressive potassium replacement. Continue with her medications for anxiety, depression, hypothyroidism, seizure disorder, and neuropathy, restarting her p.o. medications. Advance her diet as tolerated. Follow I's and O's. Obtain a chest x-ray. DEEP VENOUS THROMBOSIS PROPHYLAXIS: SCDs. CODE STATUS: FULL CODE. ATTESTATION: The patient is expected to be discharged or transferred to another facility within 96 hours: Yes. TD: 01/22/2019 17:11 ALICIA
[2019-01-22 17:56] LABS: BILIRUBIN,URINE NEGATIVE (NEGATIVE); GLUCOSE, URINE (UA) 500 mg/dL (NEGATIVE); KETONES,URINE (UA) NEGATIVE (NEGATIVE); LEUKOCYTE ESTERASE, URINE NEGATIVE (NEGATIVE); NITRITE,URINE NEGATIVE (NEGATIVE); OCCULT BLOOD,URINE NEGATIVE (NEGATIVE); PROTEIN,URINE NEGATIVE (NEGATIVE); UROBILINOGEN,URINE 0.2 (NORMAL) E.U./dL (NORMAL)
[2019-01-22 18:04] LABS: CLARITY,URINE CLEAR (CLEAR); HCG UR QUAL NEGATIVE
[2019-01-22] MEDS: HYDROmorphone 2 MG/ML VIAL IVP PRN ×3 (18:31→23:48)
[2019-01-22 18:48] LABS: KETONES, SERUM (ACETEST) NEGATIVE (NEGATIVE)
[2019-01-22 18:50] LABS: BUN - BLOOD UREA NITROGEN 7 mg/dL (6-20); CALCIUM 7.9 mg/dL (8.5-10.3); CARBON DIOXIDE - CO2 23 mmol/L (21-32); CHLORIDE 102 mmol/L (101-111); CREATININE 0.8 mg/dL (0.4-1.0); GFR - MDRD 78 (>89); GLUCOSE 205 mg/dL (70-100); MAGNESIUM 2.1 mg/dL (1.7-2.8); SODIUM 134 mmol/L (135-145)
[2019-01-22 19:40] LABS: MUDS CUTOFF CONCENTRATIONS CUTOFF CONC BELOW:
[2019-01-22] MEDS: PRAZOSIN 1 MG CAPSULE PO SCH (20:30)
[2019-01-22] MEDS: traZODone 50 MG TABLET PO SCH (20:30)
[2019-01-22 20:37] LABS: AMPHETAMINE SCREEN,URINE NEGATIVE (NEGATIVE); BENZODIAZEPINES SCREEN, URINE NEGATIVE (NEGATIVE); COCAINE SCREEN URINE NEGATIVE (NEGATIVE); METHADONE SCREEN, URINE NEGATIVE (NEGATIVE); METHAMPHETAMINES SCREEN, URINE NEGATIVE (NEGATIVE); OPIATE SCREEN, URINE POSITIVE (NEGATIVE); OXYCODONE SCREEN, URINE NEGATIVE (NEGATIVE); PROPOXYPHENE SCREEN, URINE NEGATIVE (NEGATIVE); TRICYCLIC ANTIDEPRESSANT,URINE NEGATIVE (NEGATIVE)
[2019-01-22] MEDS ORDERED: SODIUM CHLORIDE FLUSH 0.9% 10 ML SYRINGE ONE (20:58)
[2019-01-22] MEDS ORDERED: INSULIN GLARGINE 300 UNIT/3 ML PEN SUBQ SCH (21:00)
[2019-01-23] MEDS: SODIUM CHLORIDE 0.9% 1,000 ML IV SCH ×3 (00:11→21:24)
[2019-01-23] MEDS: HYDROmorphone 2 MG/ML VIAL IVP PRN ×3 (03:11→14:48)
[2019-01-23 05:55] LABS: BASOPHILS % (AUTO) 0.7 %; EOSINOPHILS # (AUTO) 0.6 10^3/uL (0.0-0.7); EOSINOPHILS % (AUTO) 9.1 %; HGB - HEMOGLOBIN 9.1 g/dL (12.0-16.0); LYMPHOCYTES # (AUTO) 3.3 10^3/uL (1.5-3.5); LYMPHOCYTES % (AUTO) 52.7 %; MEAN CORPUSCULAR HGB CONC 31.8 g/dL (32.0-36.0); MEAN CORPUSCULAR VOLUME 84.9 fL (81.0-99.0); MEAN PLATELET VOLUME 9.2 fL (7.9-10.8); MONOCYTES # (AUTO) 0.5 10^3/uL (0.0-1.0); MONOCYTES % (AUTO) 7.5 %; NEUTROPHILS # (AUTO) 1.8 10^3/uL (1.5-6.6); PLT - PLATELET COUNT 164 10^3/uL (130-450); RED BLOOD COUNT 3.36 10^6/uL (4.20-5.40); RED CELL DISTRIBUTION WIDTH 16.8 % (12.0-15.0); WHITE BLOOD COUNT 6.2 x10^3/uL (4.8-10.8)
[2019-01-23 06:13] LABS: BUN - BLOOD UREA NITROGEN < 5 mg/dL (6-20); CARBON DIOXIDE - CO2 23 mmol/L (21-32); CHLORIDE 106 mmol/L (101-111); CREATININE 0.7 mg/dL (0.4-1.0); GFR - MDRD 90 (>89); GLUCOSE 87 mg/dL (70-100); PHOSPHORUS 1.9 mg/dL (2.5-4.6); SODIUM 136 mmol/L (135-145)
[2019-01-23] MEDS: INSULIN REGULAR HUMAN 100 UNIT in SODIUM CHLORIDE 0.9% 100ML 99 ML IV SCH (06:22)
[2019-01-23] MEDS: LEVOTHYROXINE 112 MCG TABLET PO SCH (06:39)
[2019-01-23] MEDS: NEUTRA-PHOS 250 MG TABLET PO SCH ×2 (06:39→08:51)
[2019-01-23] MEDS: POTASSIUM CHLORIDE 20 MEQ TABLET PO SCH ×2 (06:40→11:53)
[2019-01-23] MEDS: ESCITALOPRAM 10 MG TABLET PO SCH (08:51)
[2019-01-23] MEDS ORDERED: diphenhydrAMINE 25 MG CAPSULE PO PRN (08:56)
[2019-01-23] MEDS: INSULIN ASPART 300 UNIT/3 ML PEN SUBQ SCH ×3 (10:02→17:23)
[2019-01-23] MEDS ORDERED: INSULIN ASPART 300 UNIT/3 ML PEN SUBQ SCH (12:00)
--- NOTE | 2019-01-23 12:19 | PROVIDER PROGRESS NOTE ---
Assessment/Plan - Problem List (1) DKA (diabetic ketoacidosis) Qualifiers: Diabetes mellitus type: type 1 Diabetes mellitus complication detail: without coma Qualified Code(s): E10.10 - Type 1 diabetes mellitus with ketoacidosis without coma Assessment/Plan: Acidosis and anion gap cleared. Lantus Insulin was given last night. Diet started, therefore will order ss Insulin coverage. (2) Non compliance w medication regimen Assessment/Plan: She says she was "too delirious" to be able to re-attach her pump and needle. She apparently has used the pump for 24 years. Will order a Diabetic Teaching eval and consult. (3) Hypokalemia Assessment/Plan: Needs replacement. Follow BMP daily. (4) Nausea Assessment/Plan: Will order Reglan for potential diabetic gastroparesis. She also has prn anti-emetics. No discharge yet today. (5) Anemia Assessment/Plan: A portion of the Hgb drop from 11 to 9 is from iv hydration, but she had a Hx of itron deficiency anemia. Will check B12, Folate, Iron panel and guiac stool order. Replace po if low. (6) Peripheral neuropathy Assessment/Plan: Continue her home meds. (7) Depressed affect Assessment/Plan: Will request a Social Work eval regarding suicidal expression in ER. If cleared, will stop 1:1 care. - Current Meds Current Meds: Current Medications Generic Name Dose Route Start Last Admin Trade Name Freq PRN Reason Stop Dose Admin Escitalopram Oxalate 40 mg 01/23/19 09:00 01/23/19 08:51 Lexapro PO 40 mg DAILY SHELL Administration Hydromorphone HCl 2 mg 01/22/19 17:47 01/23/19 06:46 Dilaudid (Vial) IVP 2 mg Q2H PRN Administration PAIN Sodium Chloride 1,000 mls @ 80 mls/hr 01/23/19 08:18 01/23/19 10:00 Normal Saline 0.9% IV 80 mls/hr .[id number] SHELL Infusion Insulin Aspart 1 - 5 unit 01/23/19 08:40 01/23/19 11:58 Novolog SUBQ Not Given 0800,1200,1700,2100 [facility] Protocol Insulin Glargine 10 unit 01/22/19 21:00 01/22/19 20:29 Lantus Solostar SUBQ 10 unit QPM SHELL Administration Levothyroxine Sodium 112 mcg 01/23/19 07:00 01/23/19 06:39 Synthroid PO 112 mcg QDAC SHELL Administration Metoclopramide HCl 10 mg 01/22/19 17:40 01/23/19 08:56 Reglan PO 10 mg PRN PRN Administration Nausea / Vomiting Prazosin HCl 5 mg 01/22/19 21:00 01/22/19 20:30 Minipress PO 5 mg QPM SHELL Administration Trazodone HCl 200 mg 01/22/19 21:00 01/22/19 20:30 Desyrel PO 200 mg QPM SHELL Administration - Lab Result Fish Bone Diagrams: 01/23/19 05:42 01/23/19 05:42 - Additional Planning My Orders: My Active Orders 01/22/19 15:24 Initiate DKA RN Protocol [RC] .protocol Initiate Hypoglycemia Protocol [RC] .protocol Initiate ICU Electrolyte Prot. [RC] .protocol 01/22/19 15:25 Notify Provider - Specific Ins [RC] PRN 01/22/19 15:26 Blood Glucose POC [RC] 0800,1200,1700,2100 Straight Catheter Insertion [RC] PRN 01/22/19 17:40 Metoclopramide [Reglan] 10 mg PO PRN PRN 01/22/19 17:47 HYDROmorphone (VIAL) [Dilaudid (Vial)] 2 mg IVP Q2H PRN 01/22/19 17:48 Code Status [OTHERS] Routine 01/22/19 21:00 Prazosin [Minipress] 5 mg PO QPM traZODone [Desyrel] 200 mg PO QPM 01/23/19 Diabetes Outpatient Education MAC [MAC] Routine 01/23/19 07:00 Levothyroxine [Synthroid] 112 mcg PO QDAC 01/23/19 08:17 Blood Glucose Checks - Eating [RC] 0800,1200,1700,2100 01/23/19 08:18 Sodium Chloride 0.9% [Normal Saline 0.9%] 1,000 ml IV 80 mls/hr 01/23/19 08:40 Insulin Aspart [NovoLOG] 1 - 5 unit SUBQ 0800,1200,1700,2100 01/23/19 08:56 diphenhydrAMINE [Benadryl] 25 mg PO Q4HR PRN 01/23/19 09:00 Escitalopram [Lexapro] 40 mg PO DAILY 01/23/19 09:02 Nutrition Consult [CONS] Routine 01/23/19 12:00 Potassium Chlor 10 Meq/100 ml [Potassium Chloride] 10 meq in 100 ml IV Q1H 01/24/19 05:00 BMP - BASIC METABOLIC PANEL [CHEM] DAILYLAB Subjective - Subjective Patient Reports: Nausea, Other (Tearful) Nursing Reports: Other (In the ER she apparently stated "I just don't want to live anymore" due to being tired of being sick. 1:1 was ordered therefore.) Objective Vital Signs: Vital Signs - 24 hr 01/22/19 01/22/19 01/22/19 12:19 13:10 14:18 Temperature 36.5 C Heart Rate 104 H 102 H 81 Heart Rate [ Monitoring electrodes] Respiratory 14 20 24 Rate Blood Pressure 112/60 123/73 117/76 Blood Pressure [Right Brachial artery] O2 Saturation 100 100 100 01/22/19 01/22/19 01/22/19 17:43 18:00 19:00 Temperature 36.6 C Heart Rate Heart Rate [ 64 76 80 Monitoring electrodes] Respiratory 17 21 18 Rate Blood Pressure Blood Pressure 109/87 H 104/76 95/55 L [Right Brachial artery] O2 Saturation 100 98 96 01/22/19 01/22/19 01/22/19 20:00 21:00 22:00 Temperature 36.3 C L Heart Rate Heart Rate [ 66 77 74 Monitoring electrodes] Respiratory 18 16 19 Rate Blood Pressure Blood Pressure 109/79 88/62 L 100/84 H [Right Brachial artery] O2 Saturation 100 94 98 01/22/19 01/23/19 01/23/19 23:00 00:00 01:00 Temperature 36.7 C 36.6 C Heart Rate Heart Rate [ 75 77 76 Monitoring electrodes] Respiratory 11 L 8 L 17 Rate Blood Pressure Blood Pressure 90/58 L 100/62 93/55 L [Right Brachial artery] O2 Saturation 97 94 97 01/23/19 01/23/19 01/23/19 02:00 03:00 04:00 Temperature 36.5 C 36.6 C Heart Rate Heart Rate [ 94 81 79 Monitoring electrodes] Respiratory 12 18 11 L Rate Blood Pressure Blood Pressure 122/68 114/76 122/87 H [Right Brachial artery] O2 Saturation 100 100 100 01/23/19 01/23/19 01/23/19 05:00 06:00 07:00 Temperature Heart Rate Heart Rate [ 79 75 90 Monitoring electrodes] Respiratory 19 12 12 Rate Blood Pressure Blood Pressure 109/68 101/65 100/66 [Right Brachial artery] O2 Saturation 100 96 01/23/19 01/23/19 01/23/19 08:00 09:00 10:00 Temperature Heart Rate Heart Rate [ 98 88 72 Monitoring electrodes] Respiratory 18 22 18 Rate Blood Pressure Blood Pressure 114/76 103/69 113/75 [Right Brachial artery] O2 Saturation 100 98 100 01/23/19 01/23/19 11:00 12:00 Temperature Heart Rate Heart Rate [ 71 68 Monitoring electrodes] Respiratory 14 13 Rate Blood Pressure Blood Pressure 130/87 H 106/74 [Right Brachial artery] O2 Saturation 100 96 Oxygen O2 Source Room air I&O (Last 24 Hrs): Intake and Output Totals x24h 01/21/19 01/22/19 01/23/19 23:59 23:59 23:59 Intake Total 3024.950 2919.917 Output Total 1335 1600 Balance 5623.827 8187.917 General: Alert, Oriented x3 HEENT: Other (Edentulous) Neck: Supple, No JVD Neuro: Non Focal Cardiovascular: Regular rate, No murmurs Respiratory: No respiratory distress, Breath sounds nml Abdomen: Soft Extremities: No edema - Results Results: Laboratory Results WBC 6.2 x10^3/uL (4.8-10.8) 01/23/19 05:42 RBC 3.36 10^6/uL (4.20-5.40) L 01/23/19 05:42 Hgb 9.1 g/dL (12.0-16.0) L 01/23/19 05:42 Hct 28.5 % (37.0-47.0) L 01/23/19 05:42 MCV 84.9 fL (81.0-99.0) 01/23/19 05:42 MCH 27.0 pg (27.0-31.0) 01/23/19 05:42 MCHC 31.8 g/dL (32.0-36.0) L 01/23/19 05:42 RDW 16.8 % (12.0-15.0) H 01/23/19 05:42 Plt Count 164 10^3/uL (130-450) 01/23/19 05:42 MPV 9.2 fL (7.9-10.8) 01/23/19 05:42 Neut # (Auto) 1.8 10^3/uL (1.5-6.6) 01/23/19 05:42 Lymph # (Auto) 3.3 10^3/uL (1.5-3.5) 01/23/19 05:42 [place] # (Auto) 0.5 10^3/uL (0.0-1.0) 01/23/19 05:42 Eos # (Auto) 0.6 10^3/uL (0.0-0.7) 01/23/19 05:42 Baso # (Auto) 0.0 10^3/uL (0.0-0.1) 01/23/19 05:42 Absolute Nucleated RBC 0.00 x10^3/uL 01/23/19 05:42 Nucleated RBC % 0.0 /100WBC 01/23/19 05:42 VBG pH 7.456 (7.31-7.41) H 01/22/19 15:50 VBG pCO2 31.7 mmHg (41-51) L 01/22/19 15:50 VBG pO2 28.4 mmHg (25-47) 01/22/19 15:50 VBG HCO3 21.8 mmol/L (23-28) L 01/22/19 15:50 VBG Total CO2 22.8 mmol/L (24-29) L 01/22/19 15:50 VBG O2 Saturation 64.3 % (60-80) 01/22/19 15:50 VBG Base Excess -1.4 mmol/L (-2 - +2) 01/22/19 15:50 Sodium 136 mmol/L (135-145) 01/23/19 05:42 Potassium 2.9 mmol/L (3.5-5.0) L 01/23/19 05:42 Chloride 106 mmol/L (101-111) 01/23/19 05:42 Carbon Dioxide 23 mmol/L (21-32) 01/23/19 05:42 Anion Gap 7.0 (6-13) 01/23/19 05:42 BUN < 5 mg/dL (6-20) L 01/23/19 05:42 Creatinine 0.7 mg/dL (0.4-1.0) 01/23/19 05:42 Estimated GFR (MDRD) 90 (>89) 01/23/19 05:42 Glucose 87 mg/dL (70-100) 01/23/19 05:42 POC Whole Bld Glucose 162 mg/dL (70 - 100) H 01/23/19 11:36 Glycated Hemoglobin 8.7 % (4.6-6.2) H 01/22/19 15:50 Estim Average Glucose 203 (70-100) H 01/22/19 15:50 Calcium 7.0 mg/dL (8.5-10.3) L 01/23/19 05:42 Phosphorus 1.9 mg/dL (2.5-4.6) L 01/23/19 05:42 Magnesium 1.8 mg/dL (1.7-2.8) 01/23/19 05:42 Total Bilirubin 0.9 mg/dL (0.2-1.0) 01/22/19 13:06 AST 37 IU/L (10-42) 01/22/19 13:06 ALT 26 IU/L (10-60) 01/22/19 13:06 Alkaline Phosphatase 100 IU/L (42-121) 01/22/19 13:06 Total Protein 7.2 g/dL (6.7-8.2) 01/22/19 13:06 Albumin 2.8 g/dL (3.2-5.5) L 01/23/19 05:42 Globulin 3.5 g/dL (2.1-4.2) 01/22/19 13:06 Albumin/Globulin Ratio 1.1 (1.0-2.2) 01/22/19 13:06 Lipase 19 U/L (22-51) L 01/22/19 13:06 Urine Color LT. YELLOW 01/22/19 17:15 Urine Clarity CLEAR (CLEAR) 01/22/19 17:15 Urine pH 7.0 PH (5.0-7.5) 01/22/19 17:15 Ur Specific [place] <=1.005 (1.002-1.030) 01/22/19 17:15 Urine Protein NEGATIVE mg/dL (NEGATIVE) 01/22/19 17:15 Urine Glucose (UA) 500 mg/dL (NEGATIVE) H 01/22/19 17:15 Urine Ketones NEGATIVE mg/dL (NEGATIVE) 01/22/19 17:15 Urine Occult Blood NEGATIVE (NEGATIVE) 01/22/19 17:15 Urine Nitrite NEGATIVE (NEGATIVE) 01/22/19 17:15 Urine Bilirubin NEGATIVE (NEGATIVE) 01/22/19 17:15 Urine Urobilinogen 0.2 (NORMAL) E.U./dL (NORMAL) 01/22/19 17:15 Ur Leukocyte Esterase NEGATIVE (NEGATIVE) 01/22/19 17:15 Ur Microscopic Review NOT INDICATED 01/22/19 17:15 Urine Culture Comments NOT INDICATED 01/22/19 17:15 Urine HCG, Qual NEGATIVE 01/22/19 17:15 Urine Opiates Screen POSITIVE (NEGATIVE) H 01/22/19 17:15 Ur Oxycodone Screen NEGATIVE (NEGATIVE) 01/22/19 17:15 Urine Methadone Screen NEGATIVE (NEGATIVE) 01/22/19 17:15 Ur Propoxyphene Screen NEGATIVE (NEGATIVE) 01/22/19 17:15 Ur Barbiturates Screen POSITIVE (NEGATIVE) H 01/22/19 17:15 Ur Tricyclics Screen NEGATIVE (NEGATIVE) 01/22/19 17:15 Ur Phencyclidine Scrn NEGATIVE (NEGATIVE) 01/22/19 17:15 Ur Amphetamine Screen NEGATIVE (NEGATIVE) 01/22/19 17:15 U Methamphetamines Scrn NEGATIVE (NEGATIVE) 01/22/19 17:15 U Benzodiazepines Scrn NEGATIVE (NEGATIVE) 01/22/19 17:15 Urine Cocaine Screen NEGATIVE (NEGATIVE) 01/22/19 17:15 U Cannabinoids Screen NEGATIVE (NEGATIVE) 01/22/19 17:15 Serum Ketones NEGATIVE (NEGATIVE) 01/22/19 18:30 MRSA Surveill Initial NEGATIVE (NEGATIVE) 01/22/19 17:15 - Procedures Procedures: Procedures EXCISION OF STOMACH, ENDO, DIAGN (05/24/18) INSPECTION OF LOWER INTESTINAL TRACT, ENDO (05/24/18) TRANSFUSE NONAUT RED BLOOD CELLS IN PERIPH VEIN, PERC (05/24/18)
[2019-01-23] MEDS: POTASSIUM CHLOR 10 MEQ/100 ML 10 MEQ/100 ML BAG IV SCH ×4 (12:32→18:31)
[2019-01-23] MEDS: PROMETHAZINE 25 MG TABLET PO PRN ×2 (12:47→18:29)
[2019-01-23] MEDS ORDERED: MORPHINE 10 MG/ML VIAL IVP PRN (15:43)
[2019-01-23] MEDS ORDERED: MORPHINE 2 MG/ML CARPUJECT ONE (18:29)
[2019-01-23] MEDS: MORPHINE 2 MG/ML CARPUJECT IVP PRN ×2 (18:30→22:19)
[2019-01-23 19:01] LABS: MAGNESIUM 1.8 mg/dL (1.7-2.8)
[2019-01-23] MEDS ORDERED: clonazePAM 0.5 MG TABLET PO PRN (20:38)
[2019-01-23] MEDS: PRAZOSIN 1 MG CAPSULE PO SCH (21:13)
[2019-01-23] MEDS: traZODone 50 MG TABLET PO SCH (21:14)
[2019-01-23 21:58] LABS: MAGNESIUM 1.9 mg/dL (1.7-2.8); PHOSPHORUS 1.2 mg/dL (2.5-4.6)
[2019-01-23] MEDS ORDERED: NEUTRA-PHOS 250 MG TABLET PO STA (22:29)
[2019-01-23] MEDS ORDERED: POLYETHYLENE GLYCOL 3350 17 GM PACKET PO PRN (22:32)
[2019-01-24 05:38] LABS: CARBON DIOXIDE - CO2 23 mmol/L (21-32); CHLORIDE 107 mmol/L (101-111); GLUCOSE 129 mg/dL (70-100); SODIUM 138 mmol/L (135-145)
[2019-01-24 05:51] LABS: % IRON SATURATION 5 % (20-50); BUN - BLOOD UREA NITROGEN < 5 mg/dL (6-20); CREATININE 0.6 mg/dL (0.4-1.0); GFR - MDRD 108 (>89); IRON 10 ug/dL (28-170); MAGNESIUM 1.9 mg/dL (1.7-2.8); PHOSPHORUS 2.6 mg/dL (2.5-4.6); TOTAL IRON BINDING CAPACITY 202 ug/dL (250-450); TRANSFERRIN 144 mg/dL (192-382)
[2019-01-24 06:09] LABS: FOLATE 8.67 ng/mL (5.90 - >24.8)
[2019-01-24] MEDS ORDERED: POTASSIUM CHLORIDE 20 MEQ TABLET PO ONE (06:11)
[2019-01-24] MEDS: LEVOTHYROXINE 112 MCG TABLET PO SCH (06:44)
[2019-01-24 07:00] LABS: VBG PH 7.418 (7.31-7.41)
[2019-01-24] MEDS ORDERED: BUTALB/ACETAM/CAFF 50/325/40MG TABLET PO PRN (07:09)
[2019-01-24] MEDS ORDERED: oxyCODONE 5 MG TABLET PO PRN (07:09)
[2019-01-24] MEDS ORDERED: BACLOFEN 10 MG TABLET PO PRN (07:09)
[2019-01-24] MEDS ORDERED: DICYCLOMINE 10 MG CAPSULE PO PRN (07:09)
[2019-01-24] MEDS ORDERED: POTASSIUM CHLORIDE 10 MEQ CAPSULE PO SCH (08:00)
[2019-01-24] MEDS ORDERED: CALCIUM GLUCONATE 2,000 MG in SODIUM CHLORIDE 0.9% 100ML 100 ML IV ONE (08:00)
[2019-01-24] MEDS: PRAMIPEXOLE 0.25 MG TABLET PO SCH ×2 (08:31→12:57)
[2019-01-24] MEDS: ESCITALOPRAM 10 MG TABLET PO SCH (08:32)
[2019-01-24] MEDS ORDERED: FERRIC GLUCONATE 125 MG in SODIUM CHLORIDE 0.9% 100ML 100 ML IV SCH (09:00)
[2019-01-24] MEDS ORDERED: buPROPion XL 150 MG TABLET PO SCH (09:00)
[2019-01-24] MEDS ORDERED: INSULIN LISPRO PO SCH (09:00)
[2019-01-24] MEDS ORDERED: ASPIRIN EC 81 MG TABLET PO SCH (09:00)
[2019-01-24] MEDS ORDERED: POLYETHYLENE GLYCOL 3350 17 GM PACKET PO SCH (09:00)
[2019-01-24] MEDS ORDERED: DULoxetine 30 MG CAPSULE PO SCH (09:00)
[2019-01-24] MEDS: MORPHINE 2 MG/ML CARPUJECT IVP PRN (09:41)
[2019-01-24] MEDS: SODIUM CHLORIDE 0.9% 1,000 ML IV SCH (11:53)
[2019-01-24] MEDS ORDERED: MULTIVITAMIN W/MINERALS TABLET PO SCH (12:00)
--- NOTE | 2019-01-24 12:17 | Discharge Plan ---
Discharge Plan Disposition: 01 Home, Self Care Condition: Good Prescriptions: Metoclopramide [Reglan] 10 mg PO ACHS #90 tablet Diet: Diabetic Activity Restrictions: No Restrictions Shower Restrictions: No Driving Restrictions: No Weight Bearing: Full Weight Instruction Topics: DKA Prevent Ch, Diabetes Traffic Observer Complications, Diabetes Type 1 Use Insulin Ch, Diabetes High Blood Sugar Ch, Ketones Check Additional Instructions or Follow Up instructions: Patient has been given diabetic education and counseling and will need to follow up with PCP and flatbed truck driver on titration of basal and bolus coverage to her insulin pump as deemed necessary to prevent DKA's in future, stressors to be minimized as to avoid exacerbations as well, structural layout worker has addressed these concerns and will be provided information on crisis hotline as well as other information to deal with stress at home as wit pertains to her son. Pt comfortable with plan and will return if he worsens. Will have pt follow up with PCP for further care or return if pt worsens. Pt comfortable with plan.Pt is well appearing, non-toxic and well hydrated here. Pt counseled regarding expected course and signs and symptoms for which I believe an urgent re-evaluation would be necessary. Pt with good understanding and agreement to plan. PLEASE REFER TO THE DISCHARGE MEDICATION LIST. No Smoking: If you smoke, Please STOP! Call for help. Follow-up with: Isatu Belle MD [Primary Care Provider] - 1 Week León Lorenzo MD [Physician No Access] - 2 Weeks
--- NOTE | 2019-01-24 12:25 | DISCHARGE SUMMARY ---
Discharge Summary Admit Date: 01/22/19 Discharge Date: 01/24/19 Discharging Provider: Dr. Esparza Primary Care Provider: Isatu Belle Code Status: Do Not Attempt Resuscitation Condition at Discharge: Good Discharge Disposition: 01 Home, Self Care - DIAGNOSES Admission Diagnoses: 1. Acute DKA 2. Severe hyperkalemia with associated dehydration 3. Noncompliance with diabetic regimen 4. Hypothyroidism 5. Anxiety with depression Discharge Diagnoses with Status of Each Condition: (1) DKA (diabetic ketoacidosis); resolved (2) Non compliance w medication regimen (3) Hypokalemia; resolved (4) Nausea; improved (5) Anemia; iron def; stable (6) Peripheral neuropathy; stable (7) Depressed affect with anxiety; stable - HPI History of Present Illness: 43-year-old female presents to the emergency department with a complaint of "not feeling well". She states that her blood sugar has read "high" on her glucometer for the past 4 days. Having abdominal pain and nausea. She also has a fractured left foot. States has had a mild cough but no fevers. No vomiting. No diarrhea. Has not been using her insulin pump at home. Nothing makes it better or worse - CONSULTS | PROCEDURES Consultations: Bracelet And Brooch Maker, bin worker - HOSPITAL COURSE Hospital Course: Patient was admitted for acute DKA. Her electrolytes and acidosis was stabilized with aggressive IVF's and DKA protocol order set. Lantus Insulin was given, Diet was started, and order ss Insulin coverage. Patient stated She says she was "too delirious" to be able to re-attach her pump and needle. She apparently has used the pump for 24 years. Labs were monitored. HgbA1c qas 8.7%. Reglan was given for potential diabetic gastroparesis. A portion of the Hgb drop from 11 to 9 is from iv hydration, but she had a Hx of iron deficiency anemia. Patient was given 1 dose of IV ferrlecit, B12, Folate were normal. Her anxiety was an issue with depression as it related to dynamic situation with son at home and him being an IVDU and having a major stressor in her life. Her home meds were continued. Continue her home meds. Social Work eval regarding suicidal expression in ER. However, this was re-addressed and NO SI was ond resources and information was provided to patient on discharge. Patient was placed back on her continuous insulin pump, DM educator consult was seen and referral to see her PCP and continuous dryout operator helper in 1-2 weeks was recommended. - ALLERGIES Allergies/Adverse Reactions: Allergies Allergy/AdvReac Type Severity Reaction Status Date / Time carisoprodol [From Soma] Allergy Unknown Verified 01/22/19 12:23 cyclobenzaprine HCl * Allergy Edema Verified 01/22/19 12:23 [From Flexeril] divalproex sodium Allergy Rash Verified 01/22/19 12:23 [From Depakote] gabapentin [From Neurontin] Allergy Edema Verified 01/22/19 12:23 lidocaine Allergy Unknown Verified 01/22/19 12:23 nitrofurantoin Allergy Rash Verified 01/22/19 12:23 macrocrystalline * [From Macrodantin] nortriptyline Allergy Unknown Verified 01/22/19 12:23 ondansetron [From Zofran] Allergy Hives Verified 01/22/19 12:23 ondansetron HCl * Allergy Hives Verified 01/22/19 12:23 [From Zofran (as hydrochloride)] pregabalin [From Lyrica] Allergy Headache Verified 01/22/19 12:23 hydromorphone AdvReac Nausea Verified 01/23/19 15:45 - MEDICATIONS Home Medications: Ambulatory Orders Medication Instructions Recorded Confirmed Insulin Lispro [Humalog] 20 - 25 units SQ DAILY 10/30/15 01/23/19 clonazePAM [Clonazepam] 1 mg PO TID PRN 10/30/15 01/23/19 Baclofen 10 mg PO QID PRN 06/03/16 01/23/19 Escitalopram Oxalate [Lexapro] 40 mg PO DAILY 05/22/18 01/23/19 Levothyroxine [Synthroid] 112 mcg PO QDAC 05/22/18 01/23/19 Simvastatin 20 mg PO QPM 05/22/18 01/23/19 Bupropion HCl [Bupropion Xl] 150 mg PO DAILY 11/14/18 01/23/19 Pantoprazole Sodium [Protonix] 20 mg PO DAILY 11/14/18 01/23/19 Butalb/Acetam/Caff 50/325/40 1 tab PO Q4H PRN 01/22/19 01/23/19 [Fioricet] Dicyclomine HCl 20 mg PO QID PRN 01/22/19 01/23/19 Duloxetine HCl 60 mg PO DAILY 01/22/19 01/23/19 Oxycodone HCl 10 mg PO QID PRN 01/22/19 01/23/19 Promethazine [Phenergan] 25 mg PO Q6H PRN 01/22/19 01/23/19 Aspirin [Adult Aspirin] 81 mg PO DAILY 01/23/19 01/23/19 Potassium Chloride 10 meq PO BID 01/23/19 01/23/19 Pramipexole [Mirapex] 0.25 mg PO QID 01/23/19 01/23/19 Prazosin HCl 5 mg PO QPM 01/23/19 01/23/19 Trazodone HCl 200 mg PO QPM 01/23/19 01/23/19 Metoclopramide [Reglan] 10 mg PO ACHS #90 tablet 01/24/19 - PHYSICAL EXAM AT DISCHARGE General Appearance: positive: No acute distress, Alert, Mild distress Eyes Bilateral: positive: Normal inspection, PERRL, EOMI ENT: positive: ENT inspection nml, Pharynx nml, No signs of dehydration Neck: positive: Nml inspection, Thyroid nml, No JVD, Trachea midline Respiratory: positive: Chest non-tender, No respiratory distress, Breath sounds nml Cardiovascular: positive: Regular rate & rhythm, No murmur, No gallop Peripheral Pulses: positive: 2+ Abdomen: positive: Non-tender, No organomegaly, Nml bowel sounds, No distention Back: positive: Nml inspection Skin: positive: Color nml, No rash, Warm, Dry Extremities: positive: Non-tender, Full ROM, Nml appearance Neurologic/Psychiatric: positive: Oriented x3, CN's nml (2-12) - LABS Result Diagrams: 01/23/19 05:42 01/24/19 05:00 - DIAGNOSTIC IMAGING Diagnostic Imaging Results: Final report reviewed - QUALITY (Female Hip Fx Only) Was patient sent home on osteoporosis medication?: No - FOLLOW UP Follow Up: PCP and continuous dryout operator helper in 1-2 weeks. - TIME SPENT Time Spent in Discharge (Minutes): 35
[2019-01-24 13:16] VITALS: BP 134/95
[2019-01-24] MEDS ORDERED: PRAZOSIN 1 MG CAPSULE PO SCH (21:00)
== END 2019-01-24 13:35 | disposition home or self-care (01) | DRG 639 ==
LOC: ED 12:13 → ICU 15:23
PROVIDERS: ADMIT Internal Medicine; ATTEND Internal Medicine
DX: E10.10 Type 1 diabetes mellitus with ketoacidosis without coma (principal); E78.00 Pure hypercholesterolemia, unspecified; J44.9 Chronic obstructive pulmonary disease, unspecified; R01.1 Cardiac murmur, unspecified; E10.40 Type 1 diabetes mellitus with diabetic neuropathy, unspecified; G40.909 Epilepsy, unspecified, not intractable, without status epilepticus; E03.9 Hypothyroidism, unspecified; K21.9 Gastro-esophageal reflux disease without esophagitis; Z87.442 Personal history of urinary calculi; H54.7 Unspecified visual loss; J32.9 Chronic sinusitis, unspecified; F31.9 Bipolar disorder, unspecified; F41.9 Anxiety disorder, unspecified; F90.9 Attention-deficit hyperactivity disorder, unspecified type; F43.10 Post-traumatic stress disorder, unspecified; M19.90 Unspecified osteoarthritis, unspecified site; F17.200 Nicotine dependence, unspecified, uncomplicated; G89.29 Other chronic pain; M54.9 Dorsalgia, unspecified; E10.42 Type 1 diabetes mellitus with diabetic polyneuropathy; F41.8 Other specified anxiety disorders; E87.6 Hypokalemia; T38.3X6A Underdosing of insulin and oral hypoglycemic [antidiabetic] drugs, initial encounter; Z91.138 Patient's unintentional underdosing of medication regimen for other reason; D50.9 Iron deficiency anemia, unspecified; Z96.41 Presence of insulin pump (external) (internal); E78.5 Hyperlipidemia, unspecified; M79.7 Fibromyalgia; Z66 Do not resuscitate
CPT/HCPCS: 36415; 71045; 80048; 80053; 81003; 81025; 82009; 82040; 82330; 82607; 82746; 82803; 83036; 83540; 83690; 83735; 84100; 84132; 84466; 85025; 87150; 96365; 96368; 96375; 99285; A9270; J1170; J1815; J2916; J7040; Q0169; 80306; 81001; 82272; 82274; 82947; 87086; 99284

== ENCOUNTER 2019-03-04 12:51 | Emergency (ER) | payer MEDICARE, MEDICAID ==
[2019-03-04] MEDS ORDERED: PROMETHAZINE 25 MG/1 ML VIAL IM STA (13:16)
[2019-03-04] MEDS ORDERED: MORPHINE 10 MG/ML VIAL IM STA (13:16)
--- NOTE | 2019-03-04 13:19 | ED Physician Documentation ---
PD HPI TRUNK INJURY - Stated complaint Stated Complaint: PATEL,RIB AND BACK PX - Chief complaint Chief Complaint: General - History obtained from History obtained from: Patient, Family - History of Present Illness Location: Left chest Type of injury: Fall Timing - onset: How many days ago (4) Timing - duration: Days (4) Timing - details: Abrupt onset, Still present Quality: Spasm, Sharp, Similar to prior episodes Improved by: Rest Worsened by: Moving, Palpating Associated symtptoms: No: Weakness, Numbness, Tingling, Swelling Where injury occured: Home Similar symptoms before: Diagnosis (rib contusion) Recently seen: Admitted - Additional information Additional information: 43-year-old type I diabetic on a pump had a fall in her bedroom 4 nights ago and has injured her left chest wall. She is having increasing pain and difficulty breathing associated with this. She is come to the emergency department this morning with chief complaint of left rib pain. She also has not feeling well. Review of Systems Constitutional: reports: Myalgias, Fatigue. denies: Fever Eyes: denies: Decreased vision Ears: denies: Ear pain Nose: denies: Rhinorrhea / runny nose, Congestion Throat: denies: Sore throat Cardiac: reports: Chest pain / pressure. 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: Other : Kidney stones, Other HEENT: Chronic vision loss, Chronic sinusitis Psych: Depression, Anxiety, Bipolar disorder, ADD/ADHD, Post traumatic stress disorder, Other Musculoskeletal: Osteoarthritis, Fibromyalgia, Fatigue, Chronic back pain Derm: None - Past Surgical History Past Surgical History: Yes General: Gastric surgery, Other Ortho: Rotator cuff repair, Other /FRACTIONATION SUPERVISOR: section, Endometrial ablation, Tubal ligation - Present Medications Home Medications: Ambulatory Orders Medication Instructions Recorded Confirmed Insulin Lispro [Humalog] 20 - 25 units SQ DAILY 10/30/15 01/23/19 clonazePAM [Clonazepam] 1 mg PO TID PRN 10/30/15 01/23/19 Baclofen 10 mg PO QID PRN 06/03/16 01/23/19 Escitalopram Oxalate [Lexapro] 40 mg PO DAILY 05/22/18 01/23/19 Levothyroxine [Synthroid] 112 mcg PO QDAC 05/22/18 01/23/19 Simvastatin 20 mg PO QPM 05/22/18 01/23/19 Bupropion HCl [Bupropion Xl] 150 mg PO DAILY 11/14/18 01/23/19 Pantoprazole Sodium [Protonix] 20 mg PO DAILY 11/14/18 01/23/19 Butalb/Acetam/Caff 50/325/40 1 tab PO Q4H PRN 01/22/19 01/23/19 [Fioricet] Dicyclomine HCl 20 mg PO QID PRN 01/22/19 01/23/19 Duloxetine HCl 60 mg PO DAILY 01/22/19 01/23/19 Oxycodone HCl 10 mg PO QID PRN 01/22/19 01/23/19 Promethazine [Phenergan] 25 mg PO Q6H PRN 01/22/19 01/23/19 Aspirin [Adult Aspirin] 81 mg PO DAILY 01/23/19 01/23/19 Potassium Chloride 10 meq PO BID 01/23/19 01/23/19 Pramipexole [Mirapex] 0.25 mg PO QID 01/23/19 01/23/19 Prazosin HCl 5 mg PO QPM 01/23/19 01/23/19 Trazodone HCl 200 mg PO QPM 01/23/19 01/23/19 Metoclopramide [Reglan] 10 mg PO ACHS #90 tablet 01/24/19 - Allergies Allergies/Adverse Reactions: Allergies Allergy/AdvReac Type Severity Reaction Status Date / Time carisoprodol [From Soma] Allergy Unknown Verified 03/04/19 12:55 cyclobenzaprine HCl * Allergy Edema Verified 03/04/19 12:55 [From Flexeril] divalproex sodium Allergy Rash Verified 03/04/19 12:55 [From Depakote] gabapentin [From Neurontin] Allergy Edema Verified 03/04/19 12:55 lidocaine Allergy Unknown Verified 03/04/19 12:55 nitrofurantoin Allergy Rash Verified 03/04/19 12:55 macrocrystalline * [From Macrodantin] nortriptyline Allergy Unknown Verified 03/04/19 12:55 ondansetron [From Zofran] Allergy Hives Verified 03/04/19 12:55 ondansetron HCl * Allergy Hives Verified 03/04/19 12:55 [From Zofran (as hydrochloride)] pregabalin [From Lyrica] Allergy Headache Verified 03/04/19 12:55 hydromorphone AdvReac Nausea Verified 01/23/19 15:45 - Social History Does the pt smoke?: Yes Smoking Status: Current every day smoker Does the pt drink ETOH?: No Does the pt have substance abuse?: No - Immunizations Immunizations are current?: Yes Immunizations: TDAP >10years/unknown - POLST Patient has POLST: No POLST Status: Full Code PD ED PE NORMAL - Vitals Vital signs reviewed: Yes (normal ) - General General: Alert and oriented X 3, No acute distress, Well developed/nourished - HEENT HEENT: Atraumatic, PERRL - Neck Neck: Supple, no meningeal sign, No bony TTP - Cardiac Cardiac: RRR, No murmur - Respiratory Respiratory: No respiratory distress, Clear bilaterally, Other (There is point tenderness to the chest wall on the left at the level of the 8th rib extending under the left breast and into the mid axillary line.) - Abdomen Abdomen: Soft, Non tender - Back Back: No CVA TTP, No spinal TTP - Derm Derm: Normal color, Warm and dry, No rash - Extremities Extremities: No deformity, No edema - Neuro Neuro: Alert and oriented X 3, sailing officer 2-12 intact, No motor deficit, No sensory deficit, Normal speech Eye Opening: Spontaneous Motor: Obeys Commands Verbal: Oriented GCS Score: 15 - Psych Psych: Normal mood, Normal affect Results - Vitals Vitals: Vital Signs - 24 hr 03/04/19 12:54 Temperature 36.5 C Heart Rate 93 Respiratory 20 Rate Blood Pressure 112/73 O2 Saturation 98 Oxygen O2 Source Room air - Labs Labs: Laboratory Tests 03/04/19 03/04/19 03/04/19 13:21 13:21 13:21 WBC 7.3 RBC 4.21 Hgb 11.2 L Hct 34.8 L MCV 82.8 MCH 26.5 L MCHC 32.0 RDW 17.5 H Plt Count 273 MPV 8.3 Neut # (Auto) 4.1 Lymph # (Auto) 1.8 [place] # (Auto) 0.5 Eos # (Auto) 0.8 H Baso # (Auto) 0.1 Absolute Nucleated RBC 0.01 Nucleated RBC % 0.1 Sodium 137 Potassium 4.0 Chloride 100 L Carbon Dioxide 29 Anion Gap 8.0 BUN 9 Creatinine 0.7 Estimated GFR (MDRD) 90 Glucose 84 POC Whole Bld Glucose Calcium 8.9 Total Bilirubin 0.3 AST 31 ALT 34 Alkaline Phosphatase 99 Troponin I < 0.04 Total Protein 7.1 Albumin 3.8 Globulin 3.3 Albumin/Globulin Ratio 1.2 Lipase 22 Urine Color Urine Clarity Urine pH Ur Specific [place] Urine Protein Urine Glucose (UA) Urine Ketones Urine Occult Blood Urine Nitrite Urine Bilirubin Urine Urobilinogen Ur Leukocyte Esterase Ur Microscopic Review Urine Culture Comments 03/04/19 03/04/19 13:24 13:33 WBC RBC Hgb Hct MCV MCH MCHC RDW Plt Count MPV Neut # (Auto) Lymph # (Auto) [place] # (Auto) Eos # (Auto) Baso # (Auto) Absolute Nucleated RBC Nucleated RBC % Sodium Potassium Chloride Carbon Dioxide Anion Gap BUN Creatinine Estimated GFR (MDRD) Glucose POC Whole Bld Glucose 82 Calcium Total Bilirubin AST ALT Alkaline Phosphatase Troponin I Total Protein Albumin Globulin Albumin/Globulin Ratio Lipase Urine Color YELLOW Urine Clarity CLEAR Urine pH 7.0 Ur Specific [place] <=1.005 Urine Protein NEGATIVE Urine Glucose (UA) 100 H Urine Ketones NEGATIVE Urine Occult Blood NEGATIVE Urine Nitrite NEGATIVE Urine Bilirubin NEGATIVE Urine Urobilinogen 0.2 (NORMAL) Ur Leukocyte Esterase NEGATIVE Ur Microscopic Review NOT INDICATED Urine Culture Comments NOT INDICATED - Rads (name of study) ribs with PA chest Radiology: Prelim report reviewed (Impression: Minimally displaced fractures of the right 11th and 12th ribs of indeterminate age possibly old. Possible nondisplaced fractures of the right eighth and ninth ribs, of indeterminate age. No convincing acute cardiopulmonary abnormality.), EMP read indepedently, See rad report PD MEDICAL DECISION MAKING - ED course Complexity details: reviewed results, re-evaluated patient, considered differential, d/w patient, d/w family ED course: 43-year-old female with a chest wall contusion to the left side has pain 4 days into the fall and she has no evidence of fractures on the left side she does have old healed right rib fractures. She is administered morphine here in the emergency department. She is on pain management chronically. Her diagnostics here are unremarkable or remarkable for lack of abnormality. The pump is working well. She will need to adjust her pain management and she will need to contact Dr. Belle for management. Departure - Departure Disposition: 01 Home, Self Care Clinical Impression: Chest wall contusion Qualifiers: Encounter type: initial encounter Laterality: left Qualified Code(s): S20.212A - Contusion of left front wall of thorax, initial encounter Condition: Stable Instructions: ED Contusion Chest Wall Follow-Up: Isatu Belle MD [Primary Care Provider] - Comments: Today your diagnostic studies are good and you will need to follow-up with Dr. Belle about pain management.
[2019-03-04 13:28] LABS: BASOPHILS # (AUTO) 0.1 10^3/uL (0.0-0.1); BASOPHILS % (AUTO) 0.7 %; EOSINOPHILS # (AUTO) 0.8 10^3/uL (0.0-0.7); EOSINOPHILS % (AUTO) 10.9 %; HGB - HEMOGLOBIN 11.2 g/dL (12.0-16.0); LYMPHOCYTES # (AUTO) 1.8 10^3/uL (1.5-3.5); LYMPHOCYTES % (AUTO) 24.8 %; MEAN CORPUSCULAR HEMOGLOBIN 26.5 pg (27.0-31.0); MEAN CORPUSCULAR VOLUME 82.8 fL (81.0-99.0); MEAN PLATELET VOLUME 8.3 fL (7.9-10.8); MONOCYTES # (AUTO) 0.5 10^3/uL (0.0-1.0); MONOCYTES % (AUTO) 7.2 %; NEUTROPHILS # (AUTO) 4.1 10^3/uL (1.5-6.6); NEUTROPHILS % (AUTO) 56.4 %; PLT - PLATELET COUNT 273 10^3/uL (130-450); RED BLOOD COUNT 4.21 10^6/uL (4.20-5.40); RED CELL DISTRIBUTION WIDTH 17.5 % (12.0-15.0); WHITE BLOOD COUNT 7.3 x10^3/uL (4.8-10.8)
[2019-03-04 13:37] LABS: BILIRUBIN,URINE NEGATIVE (NEGATIVE); GLUCOSE, URINE (UA) 100 mg/dL (NEGATIVE); KETONES,URINE (UA) NEGATIVE (NEGATIVE); LEUKOCYTE ESTERASE, URINE NEGATIVE (NEGATIVE); NITRITE,URINE NEGATIVE (NEGATIVE); OCCULT BLOOD,URINE NEGATIVE (NEGATIVE); PROTEIN,URINE NEGATIVE (NEGATIVE); UROBILINOGEN,URINE 0.2 (NORMAL) E.U./dL (NORMAL)
[2019-03-04 13:40] LABS: CLARITY,URINE CLEAR (CLEAR)
[2019-03-04 13:44] LABS: ALBUMIN 3.8 g/dL (3.2-5.5); ALBUMIN/GLOBULIN RATIO 1.2 (1.0-2.2); BILIRUBIN,TOTAL 0.3 mg/dL (0.2-1.0); CALCIUM 8.9 mg/dL (8.5-10.3); CREATININE 0.7 mg/dL (0.4-1.0); TOTAL PROTEIN 7.1 g/dL (6.7-8.2)
--- NOTE | 2019-03-04 14:07 | XRAY Report ---
Reason: fall chest wall contusion left Procedure Date: 03/04/2019 Accession Number: [id number] / [id number] Procedure: XR - Ribs w/PA Chest LT CPT Code: FULL RESULT: EXAM: LEFT RIB RADIOGRAPHY EXAM DATE: 03/04/2019 01:47 PM. CLINICAL HISTORY: Fall chest wall contusion left. COMPARISON: CHEST 1 VIEW 01/22/2019 5:11 PM. TECHNIQUE: 1 view of the chest and 2 views of the ribs. FINDINGS: Bones: There appear to be minimally displaced fractures of indeterminate age at the right posterolateral 11th and 12th ribs of indeterminate age, possibly old. Mild contour deformity of the right posterolateral eighth and ninth ribs may reflect nondisplaced fractures of indeterminate age. Lungs: No focal pulmonary consolidation, significant pleural effusion, or evidence of pneumothorax. Mediastinum: Heart and mediastinal contours are unremarkable. Other: None. IMPRESSION: Minimally displaced fractures of the right 11th and 12th ribs of indeterminate age, possibly old. Possible nondisplaced fractures of the right eighth and ninth ribs, of indeterminate age. No convincing acute cardiopulmonary abnormality. RADIA
[2019-03-04 14:23] VITALS: BP 98/67
== END 2019-03-04 14:27 | disposition home or self-care (01) ==
LOC: ED 12:51
DX: S20.212A Contusion of left front wall of thorax, initial encounter (principal); W19.XXXA Unspecified fall, initial encounter; E10.42 Type 1 diabetes mellitus with diabetic polyneuropathy; Z79.4 Long term (current) use of insulin; F17.200 Nicotine dependence, unspecified, uncomplicated
CPT/HCPCS: 36415; 80053; 81001; 81003; 83690; 84484; 85025; 87086; 96372; 99283

== ENCOUNTER 2019-03-07 02:46 | Emergency (ER) | payer MEDICARE, MEDICAID ==
--- NOTE | 2019-03-07 03:52 | ED Physician Documentation ---
PD HPI TRUNK INJURY - Stated complaint Stated Complaint: L SIDE RIB PAIN - Chief complaint Chief Complaint: Trauma Ch/Bk - History obtained from History obtained from: Patient - History of Present Illness Location: Left chest Type of injury: Fall, Blunt / blow Timing - onset: How many days ago (3) Timing - details: Abrupt onset Pain level now: 8 Quality: Sharp, Similar to prior episodes Improved by: Rest Worsened by: Moving, Palpating Associated symtptoms: No: Weakness, Numbness, Tingling, Swelling, Discoloration, Feel faint, Syncope Similar symptoms before: Diagnosis (chest contusion) Recently seen: Emergency Dept - Additional information Additional information: patient was T+R 3 days ago from this ED after trip and fall at home, struck left chest on furniture (the injury occurred 1 week ago from tonight); cxr w/rib xrays only demonstrated right-sided rib fractures (suspected old fractures). She presents due to ongoing left chest rib/chest wall pain. She says she has an appointment with her PMD scheduled for later today. Review of Systems Constitutional: denies: Fever, Chills, Sweats Cardiac: reports: Chest pain / pressure. 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: Other : Kidney stones, Other HEENT: Chronic vision loss, Chronic sinusitis Psych: Depression, Anxiety, Bipolar disorder, ADD/ADHD, Post traumatic stress disorder, Other Musculoskeletal: Osteoarthritis, Fibromyalgia, Fatigue, Chronic back pain Derm: None - Past Surgical History Past Surgical History: Yes General: Gastric surgery, Other Ortho: Rotator cuff repair, 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, Endometrial ablation, Tubal ligation - Present Medications Home Medications: Ambulatory Orders Medication Instructions Recorded Confirmed Insulin Lispro [Humalog] 20 - 25 units SQ DAILY 10/30/15 01/23/19 clonazePAM [Clonazepam] 1 mg PO TID PRN 10/30/15 01/23/19 Baclofen 10 mg PO QID PRN 06/03/16 01/23/19 Escitalopram Oxalate [Lexapro] 40 mg PO DAILY 05/22/18 01/23/19 Levothyroxine [Synthroid] 112 mcg PO QDAC 05/22/18 01/23/19 Simvastatin 20 mg PO QPM 05/22/18 01/23/19 Bupropion HCl [Bupropion Xl] 150 mg PO DAILY 11/14/18 01/23/19 Pantoprazole Sodium [Protonix] 20 mg PO DAILY 11/14/18 01/23/19 Butalb/Acetam/Caff 50/325/40 1 tab PO Q4H PRN 01/22/19 01/23/19 [Fioricet] Dicyclomine HCl 20 mg PO QID PRN 01/22/19 01/23/19 Duloxetine HCl 60 mg PO DAILY 01/22/19 01/23/19 Oxycodone HCl 10 mg PO QID PRN 01/22/19 01/23/19 Promethazine [Phenergan] 25 mg PO Q6H PRN 01/22/19 01/23/19 Aspirin [Adult Aspirin] 81 mg PO DAILY 01/23/19 01/23/19 Potassium Chloride 10 meq PO BID 01/23/19 01/23/19 Pramipexole [Mirapex] 0.25 mg PO QID 01/23/19 01/23/19 Prazosin HCl 5 mg PO QPM 01/23/19 01/23/19 Trazodone HCl 200 mg PO QPM 01/23/19 01/23/19 Metoclopramide [Reglan] 10 mg PO ACHS #90 tablet 01/24/19 - Allergies Allergies/Adverse Reactions: Allergies Allergy/AdvReac Type Severity Reaction Status Date / Time carisoprodol [From Soma] Allergy Unknown Verified 03/07/19 02:55 cyclobenzaprine HCl * Allergy Edema Verified 03/07/19 02:55 [From Flexeril] divalproex sodium Allergy Rash Verified 03/07/19 02:55 [From Depakote] gabapentin [From Neurontin] Allergy Edema Verified 03/07/19 02:55 lidocaine Allergy Unknown Verified 03/07/19 02:55 nitrofurantoin Allergy Rash Verified 03/07/19 02:55 macrocrystalline * [From Macrodantin] nortriptyline Allergy Unknown Verified 03/07/19 02:55 ondansetron [From Zofran] Allergy Hives Verified 03/07/19 02:55 ondansetron HCl * Allergy Hives Verified 03/07/19 02:55 [From Zofran (as hydrochloride)] pregabalin [From Lyrica] Allergy Headache Verified 03/07/19 02:55 - Social History Does the pt smoke?: Yes Smoking Status: Current every day smoker Does the pt drink ETOH?: No Does the pt have substance abuse?: No - Immunizations Immunizations are current?: Yes Immunizations: TDAP >10years/unknown - POLST Patient has POLST: No POLST Status: Full Code PD ED PE NORMAL - Vitals Vital signs reviewed: Yes - General General: Alert and oriented X 3, Well developed/nourished, Other (appears to be in mild discomfort at rest, but increased discomfort with movement and during exam (palpation of left chest wall)) - Cardiac Cardiac: RRR, No murmur - Respiratory Respiratory: No respiratory distress, Clear bilaterally - Abdomen Abdomen: Soft, Non tender - Back Back: No spinal TTP PD ED PE EXPANDED - Visual Whole body visual: 1 - tenderness (tender to palpation over lower anterolateral ribs without crepitus) Results - Vitals Vitals: Vital Signs - 24 hr 03/07/19 03/07/19 02:50 05:23 Temperature 37.8 C H 36.2 C L Heart Rate 100 78 Respiratory 16 16 Rate Blood Pressure 105/63 97/56 L O2 Saturation 99 95 Oxygen O2 Source Room air - Rads (name of study) chest xray Radiology: Prelim report reviewed, See rad report PD MEDICAL DECISION MAKING - ED course Complexity details: considered differential, d/w patient ED course: I performed bedside US of bilateral upper quadrants and the splenorenal and hepatorenal interfaces are normal. Given IM morphine and on reevaluation she appears comfortable and reports significant improvement in pain. Given 5mg oxycodone prior to discharge and has appointment with PMD scheduled for later this morning Departure - Departure Disposition: 01 Home, Self Care Clinical Impression: Chest wall contusion Qualifiers: Encounter type: initial encounter Laterality: left Qualified Code(s): S20.212A - Contusion of left front wall of thorax, initial encounter Condition: Good Instructions: ED Contusion Chest Wall Follow-Up: Isatu Belle MD [Primary Care Provider] - (Today as scheduled) Discharge Date/Time: 03/07/19 05:32
[2019-03-07] MEDS ORDERED: MORPHINE 2 MG/ML SYRINGE IM STA (04:20)
--- NOTE | 2019-03-07 04:58 | XRAY Report ---
Reason: left chest pain after injury Procedure Date: 03/07/2019 Accession Number: [id number] / [id number] Procedure: XR - Chest 2 View X-Ray CPT Code: 31180 FULL RESULT: EXAM: CHEST RADIOGRAPHY EXAM DATE: 03/07/2019 04:49 AM. CLINICAL HISTORY: Left chest pain after injury. COMPARISON: RIBS W/PA CHEST LT 03/04/2019 1:40 PM. TECHNIQUE: 2 views. FINDINGS: Lungs/Pleura: Minimal linear atelectasis in the lateral left base. No effusion or pneumothorax. Mediastinum: Heart and mediastinal contours are unremarkable. Other: None. IMPRESSION: Minimal left basilar atelectasis. RADIA
[2019-03-07] MEDS ORDERED: oxyCODONE 5 MG TABLET PO STA ×2 (05:18→05:24)
[2019-03-07 05:24] VITALS: BP 97/56
== END 2019-03-07 05:32 | disposition home or self-care (01) ==
LOC: ED 02:46
DX: S20.212A Contusion of left front wall of thorax, initial encounter (principal); W01.190A Fall on same level from slipping, tripping and stumbling with subsequent striking against furniture, initial encounter; Y92.009 Unspecified place in unspecified non-institutional (private) residence as the place of occurrence of the external cause; E10.9 Type 1 diabetes mellitus without complications; F17.200 Nicotine dependence, unspecified, uncomplicated
CPT/HCPCS: 71046; 96372; 99283; A9270; J2270

== ENCOUNTER 2019-04-05 16:04 | Emergency (ER) | payer MEDICARE, MEDICAID ==
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
[2019-04-05 16:35] LABS: BILIRUBIN,URINE NEGATIVE (NEGATIVE); GLUCOSE, URINE (UA) NEGATIVE (NEGATIVE); KETONES,URINE (UA) NEGATIVE (NEGATIVE); LEUKOCYTE ESTERASE, URINE NEGATIVE (NEGATIVE); NITRITE,URINE NEGATIVE (NEGATIVE); OCCULT BLOOD,URINE NEGATIVE (NEGATIVE); PROTEIN,URINE NEGATIVE (NEGATIVE); UROBILINOGEN,URINE 0.2 (NORMAL) E.U./dL (NORMAL)
[2019-04-05 16:37] LABS: CLARITY,URINE CLEAR (CLEAR)
[2019-04-05] MEDS ORDERED: HYDROmorphone 1 MG/ML CARPUJECT IM STA ×2 (16:37→17:35)
[2019-04-05] MEDS ORDERED: METHOCARBAMOL 500 MG TABLET PO STA (16:37)
[2019-04-05] MEDS ORDERED: NAPROXEN 250 MG TABLET PO STA (16:37)
--- NOTE | 2019-04-05 17:32 | XRAY Report ---
Reason: fall Procedure Date: 04/05/2019 Accession Number: [id number] / [id number] Procedure: XR - Ribs w/PA Chest RT CPT Code: FULL RESULT: EXAM: RIGHT RIB RADIOGRAPHY EXAM DATE: 04/05/2019 05:02 PM. CLINICAL HISTORY: Fall. COMPARISON: CHEST 2 VIEW 03/07/2019 4:38 AM RIBS W/PA CHEST LT 03/04/2019 1:40 PM. TECHNIQUE: 1 view of the chest and 2 views of the ribs. FINDINGS: Bones: No definite evidence of acute displaced fracture. Lungs: There is some mild increased opacity along the right lateral chest wall. Mediastinum: Heart and mediastinal contours are unremarkable. Other: None. IMPRESSION: 1. No direct evidence of acute displaced fracture. 2. There is some increased opacity along the right lateral chest wall. This could be seen with occult fracture. 3. There is no evidence of lobar infiltrate or pneumothorax. RADIA
[2019-04-05 18:15] VITALS: BP 102/70
== END 2019-04-05 18:15 | disposition home or self-care (01) ==
LOC: ED 16:04
DX: S20.211A Contusion of right front wall of thorax, initial encounter (principal); W19.XXXA Unspecified fall, initial encounter; E10.21 Type 1 diabetes mellitus with diabetic nephropathy; F17.200 Nicotine dependence, unspecified, uncomplicated
CPT/HCPCS: 71101; 81003; 96372; 99283; A9270; J1170; 81001; 87086

== ENCOUNTER 2019-04-06 19:33 | Emergency (ER) | payer MEDICARE, MEDICAID ==
--- NOTE | 2019-04-06 20:15 | ED Physician Documentation ---
PD HPI TRUNK INJURY - Stated complaint Stated Complaint: SIDE PX - Chief complaint Chief Complaint: Back Pain - History obtained from History obtained from: Patient - History of Present Illness Location: Posterior chest, Right chest Type of injury: Fall (see ER chart from yesterday - seen for this injury and she says she is not having reasonable pain relief with added meds Rx yesterday.) Timing - details: Abrupt onset, Still present Worsened by: Moving, Palpating Associated symtptoms: No: Weakness, Numbness Review of Systems Respiratory: denies: Dyspnea, Cough, Wheezing GI: denies: Abdominal Pain, Nausea, Vomiting : denies: Hematuria PD PAST MEDICAL HISTORY - Past Medical History Past Medical History: No Cardiovascular: High cholesterol, Murmur Respiratory: COPD, Pneumonia, Shortness of breath Neuro: Headaches, Migraines, Peripheral neuropathy, Seizure disorder, Other Endocrine/Autoimmune: Type 1 diabetes, HyPOthyroidism GI: GERD, GI bleed, Ulcers, 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 : Kidney stones, Other HEENT: Chronic vision loss, Chronic sinusitis Psych: Depression, Anxiety, Bipolar disorder, ADD/ADHD, Post traumatic stress disorder, Other Musculoskeletal: Osteoarthritis, Fibromyalgia, Fatigue, Chronic back pain Derm: None - Past Surgical History Past Surgical History: Yes General: Gastric surgery, Other Ortho: Rotator cuff repair, 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, Endometrial ablation, Tubal ligation - Present Medications Home Medications: Ambulatory Orders Medication Instructions Recorded Confirmed Insulin Lispro [Humalog] 20 - 25 units SQ DAILY 10/30/15 04/06/19 clonazePAM [Clonazepam] 1 mg PO TID PRN 10/30/15 04/06/19 Baclofen 10 mg PO QID PRN 06/03/16 04/06/19 Escitalopram Oxalate [Lexapro] 40 mg PO DAILY 05/22/18 04/06/19 Levothyroxine [Synthroid] 112 mcg PO QDAC 05/22/18 04/06/19 Simvastatin 20 mg PO QPM 05/22/18 04/06/19 Pantoprazole Sodium [Protonix] 20 mg PO DAILY 11/14/18 04/06/19 Butalb/Acetam/Caff 50/325/40 1 tab PO Q4H PRN 01/22/19 04/06/19 [Fioricet] Dicyclomine HCl 20 mg PO QID PRN 01/22/19 04/06/19 Duloxetine HCl 60 mg PO DAILY 01/22/19 04/06/19 Oxycodone HCl 10 mg PO QID PRN 01/22/19 04/06/19 Promethazine [Phenergan] 25 mg PO Q6H PRN 01/22/19 04/06/19 Aspirin [Adult Aspirin] 81 mg PO DAILY 01/23/19 04/06/19 Potassium Chloride 10 meq PO BID 01/23/19 04/06/19 Pramipexole [Mirapex] 0.25 mg PO QID 01/23/19 04/06/19 Prazosin HCl 5 mg PO QPM 01/23/19 04/06/19 Trazodone HCl 200 mg PO QPM 01/23/19 04/06/19 Metoclopramide [Reglan] 10 mg PO ACHS #90 tablet 01/24/19 04/06/19 Hydrocodone/Acetaminophen [[place] 1 each PO TID PRN #15 tablet 04/05/19 04/06/19 10-325 Tablet] Naproxen 500 mg PO BID #20 tablet 04/05/19 04/06/19 Tizanidine HCl 4 mg PO TID PRN #20 capsule 04/05/19 04/06/19 - Allergies Allergies/Adverse Reactions: Allergies Allergy/AdvReac Type Severity Reaction Status Date / Time carisoprodol [From Soma] Allergy Unknown Verified 04/06/19 19:40 divalproex sodium Allergy Rash Verified 04/06/19 19:40 [From Depakote] gabapentin [From Neurontin] Allergy Edema Verified 04/06/19 19:40 lidocaine Allergy Unknown Verified 04/06/19 19:40 nitrofurantoin Allergy Rash Verified 04/06/19 19:40 macrocrystalline * [From Macrodantin] nortriptyline Allergy Unknown Verified 04/06/19 19:40 ondansetron [From Zofran] Allergy Hives Verified 04/06/19 19:40 ondansetron HCl * Allergy Hives Verified 04/06/19 19:40 [From Zofran (as hydrochloride)] pregabalin [From Lyrica] Allergy Headache Verified 04/06/19 19:40 - Social History Does the pt smoke?: Yes Smoking Status: Current every day smoker Does the pt drink ETOH?: No Does the pt have substance abuse?: No - Immunizations Immunizations are current?: Yes Immunizations: TDAP >10years/unknown - POLST Patient has POLST: No POLST Status: Full Code PD ED PE NORMAL - Vitals Vital signs reviewed: Yes - General General: Alert and oriented X 3, No acute distress, Well developed/nourished - Cardiac Cardiac: RRR, No murmur - Respiratory Respiratory: Clear bilaterally, Other (similar chestwall tenderness posterolateral chest/back over ribs 7-10 area. No crepitance. Similar bruising noted. ) Results - Vitals Vitals: Vital Signs - 24 hr 04/06/19 04/06/19 19:35 21:39 Temperature 36.6 C Heart Rate 96 85 Respiratory 16 14 Rate Blood Pressure 110/84 H 98/65 O2 Saturation 98 94 Oxygen O2 Source Room air - Labs Labs: Laboratory Tests 04/06/19 20:18 Urine Color YELLOW Urine Clarity CLEAR Urine pH 6.0 Ur Specific [place] <=1.005 Urine Protein NEGATIVE Urine Glucose (UA) NEGATIVE Urine Ketones NEGATIVE Urine Occult Blood NEGATIVE Urine Nitrite NEGATIVE Urine Bilirubin NEGATIVE Urine Urobilinogen 0.2 (NORMAL) Ur Leukocyte Esterase NEGATIVE Ur Microscopic Review NOT INDICATED Urine Culture Comments NOT INDICATED PD MEDICAL DECISION MAKING - ED course Complexity details: considered differential (Did not see a reason for repeat imaging. She states she was having some frequency of urine and did recheck a urine. It still negative for infection. I talked with her about her regular pain medications. We shared decision on extra dose of IM medications again here in the ER but not to change the prescription I gave yesterday. She will follow- up with her primary care in the next couple of days.), d/w patient Departure - Departure Disposition: 01 Home, Self Care Clinical Impression: Chest wall contusion Qualifiers: Encounter type: subsequent encounter Laterality: right Qualified Code(s): S20.211D - Contusion of right front wall of thorax, subsequent encounter Condition: Stable Record reviewed to determine appropriate education?: Yes Instructions: ED Contusion Rib Follow-Up: Isatu Belle MD [Primary Care Provider] - Comments: Continue with your usual baseline medication and the added medicines from yesterday's visit. Hopefully this will start improving over the next day or 2 and be more tolerable. Follow-up with your primary care tomorrow if continues as painful. Discharge Date/Time: 04/06/19 21:40
[2019-04-06] MEDS ORDERED: HYDROmorphone 2 MG/ML VIAL IM STA (20:25)
[2019-04-06] MEDS ORDERED: PROMETHAZINE 25 MG/1 ML VIAL IM STA (20:25)
[2019-04-06 20:32] LABS: BILIRUBIN,URINE NEGATIVE (NEGATIVE); GLUCOSE, URINE (UA) NEGATIVE (NEGATIVE); KETONES,URINE (UA) NEGATIVE (NEGATIVE); LEUKOCYTE ESTERASE, URINE NEGATIVE (NEGATIVE); NITRITE,URINE NEGATIVE (NEGATIVE); OCCULT BLOOD,URINE NEGATIVE (NEGATIVE); PROTEIN,URINE NEGATIVE (NEGATIVE); UROBILINOGEN,URINE 0.2 (NORMAL) E.U./dL (NORMAL)
[2019-04-06 20:34] LABS: CLARITY,URINE CLEAR (CLEAR)
[2019-04-06] MEDS ORDERED: MAG HYDROX/AL HYDROX/SIMETH 30 ML UDC PO STA (21:26)
[2019-04-06] MEDS ORDERED: PROCHLORPERAZINE 5 MG TABLET PO STA (21:26)
[2019-04-06] MEDS ORDERED: HYDROmorphone 1 MG/ML CARPUJECT IM STA (21:26)
[2019-04-06 21:40] VITALS: BP 98/65
== END 2019-04-06 21:40 | disposition home or self-care (01) ==
LOC: ED 19:33
DX: S20.211A Contusion of right front wall of thorax, initial encounter (principal); W01.190A Fall on same level from slipping, tripping and stumbling with subsequent striking against furniture, initial encounter; R35.0 Frequency of micturition; E10.42 Type 1 diabetes mellitus with diabetic polyneuropathy; Z79.4 Long term (current) use of insulin; F17.200 Nicotine dependence, unspecified, uncomplicated
CPT/HCPCS: 81003; 96372; 99283; A9270; J1170; 81001; 87086

== ENCOUNTER 2019-05-18 10:29 | Outpatient (CLI) | payer MEDICARE, MEDICAID | END 2019-05-18 10:30 | disposition critical access hospital (66) | LOC: EMS 10:29 | PROVIDERS: ATTEND Surgery | DX: R53.83 Other fatigue (principal); R51 Headache; R53.1 Weakness; R73.09 Other abnormal glucose | CPT/HCPCS: A0425; A0429 ==

== ENCOUNTER 2019-05-18 10:51 | Emergency (ER) | payer MEDICARE, MEDICAID ==
[2019-05-18] MEDS ORDERED: DEXTROSE 50% ABBOJECT 25 GM/50 ML SYRINGE IVP STA (11:03)
--- NOTE | 2019-05-18 11:04 | ED Physician Documentation ---
History of Present Illness - Stated complaint Stated Complaint: LOW BLOOD SUGAR - Chief complaint Chief Complaint: General - History obtained from History obtained from: Patient - History of Present Illness Timing: Prior to arrival - Additonal information Additional information: Patient is a 44-year-old female with complicated past medical history including type I diabetic on insulin pump presenting from home with concerns for hypoglycemia. Per EMS, blood glucose in the field was in the 20s and repeat measurement here after glucose administration by EMS was in the 60s. Patient is slightly confused, but states that she has been having difficulty with her insulin pump over the past several days. Patient does follow regularly with her machine learning intern and extension educator. Patient has not been able to contact the insulin pump for any fracture for assistance. Patient denies nausea, vomiting, abdominal pain, urinary changes, stool changes, fevers, difficulty breathing, cough, or other complaints. However, she reports that earlier today she was slightly confused, which led to the ambulance being called. No other improving or worsening factors noted. 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: Other : Kidney stones, Other HEENT: Chronic vision loss, Chronic sinusitis Psych: Depression, Anxiety, Bipolar disorder, ADD/ADHD, Post traumatic stress disorder, Other Musculoskeletal: Osteoarthritis, Fibromyalgia, Fatigue, Chronic back pain Derm: None - Past Surgical History Past Surgical History: Yes General: Gastric surgery, Other Ortho: Rotator cuff repair, Other /SENIOR SOFTWARE ENGINEER ANALYTICS: section, Endometrial ablation, Tubal ligation - Present Medications Home Medications: Ambulatory Orders Medication Instructions Recorded Confirmed Insulin Lispro [Humalog] 20 - 25 units SQ DAILY 10/30/15 04/06/19 clonazePAM [Clonazepam] 1 mg PO TID PRN 10/30/15 04/06/19 Baclofen 10 mg PO QID PRN 06/03/16 04/06/19 Escitalopram Oxalate [Lexapro] 40 mg PO DAILY 05/22/18 04/06/19 Levothyroxine [Synthroid] 112 mcg PO QDAC 05/22/18 04/06/19 Simvastatin 20 mg PO QPM 05/22/18 04/06/19 Pantoprazole Sodium [Protonix] 20 mg PO DAILY 11/14/18 04/06/19 Butalb/Acetam/Caff 50/325/40 1 tab PO Q4H PRN 01/22/19 04/06/19 [Fioricet] Dicyclomine HCl 20 mg PO QID PRN 01/22/19 04/06/19 Duloxetine HCl 60 mg PO DAILY 01/22/19 04/06/19 Oxycodone HCl 10 mg PO QID PRN 01/22/19 04/06/19 Promethazine [Phenergan] 25 mg PO Q6H PRN 01/22/19 04/06/19 Aspirin [Adult Aspirin] 81 mg PO DAILY 01/23/19 04/06/19 Potassium Chloride 10 meq PO BID 01/23/19 04/06/19 Pramipexole [Mirapex] 0.25 mg PO QID 01/23/19 04/06/19 Prazosin HCl 5 mg PO QPM 01/23/19 04/06/19 Trazodone HCl 200 mg PO QPM 01/23/19 04/06/19 Metoclopramide [Reglan] 10 mg PO ACHS #90 tablet 01/24/19 04/06/19 Hydrocodone/Acetaminophen [[place] 1 each PO TID PRN #15 tablet 04/05/19 04/06/19 10-325 Tablet] Naproxen 500 mg PO BID #20 tablet 04/05/19 04/06/19 Tizanidine HCl 4 mg PO TID PRN #20 capsule 04/05/19 04/06/19 - Allergies Allergies/Adverse Reactions: Allergies Allergy/AdvReac Type Severity Reaction Status Date / Time carisoprodol [From Soma] Allergy Unknown Verified 05/18/19 11:03 divalproex sodium Allergy Rash Verified 05/18/19 11:03 [From Depakote] gabapentin [From Neurontin] Allergy Edema Verified 05/18/19 11:03 lidocaine Allergy Unknown Verified 05/18/19 11:03 nitrofurantoin Allergy Rash Verified 05/18/19 11:03 macrocrystalline * [From Macrodantin] nortriptyline Allergy Unknown Verified 05/18/19 11:03 ondansetron [From Zofran] Allergy Hives Verified 05/18/19 11:03 ondansetron HCl * Allergy Hives Verified 05/18/19 11:03 [From Zofran (as hydrochloride)] pregabalin [From Lyrica] Allergy Headache Verified 05/18/19 11:03 - Social History Does the pt smoke?: Yes Smoking Status: Current every day smoker Does the pt drink ETOH?: No Does the pt have substance abuse?: No - Immunizations Immunizations are current?: Yes Immunizations: TDAP >10years/unknown - POLST Patient has POLST: No POLST Status: Full Code PD ED PE NORMAL - Vitals Vital signs reviewed: Yes - General General: Alert and oriented X 3, No acute distress, Well developed/nourished, Other (Tearful and slightly dazed but alert and answering questions without issu e) - HEENT HEENT: Atraumatic. No: Moist mucous membranes (Slightly dry) - Neck Neck: Supple, no meningeal sign - Cardiac Cardiac: RRR, No murmur - Respiratory Respiratory: No respiratory distress, Clear bilaterally - Abdomen Abdomen: Soft, Non tender, Non distended - Derm Derm: Normal color, Warm and dry, No rash - Extremities Extremities: No deformity, No tenderness to palpate, No edema - Neuro Neuro: Alert and oriented X 3, No motor deficit, No sensory deficit - Psych Psych: Normal mood, Normal affect, Other (Tearful) Results - Vitals Vitals: Vital Signs - 24 hr 05/18/19 10:55 Temperature 36.1 C L Heart Rate 89 Respiratory 18 Rate Blood Pressure 137/96 H O2 Saturation 98 Oxygen O2 Source Room air - Labs Labs: Laboratory Tests 05/18/19 05/18/19 05/18/19 11:16 11:16 11:16 WBC 14.0 H RBC 3.85 L Hgb 10.1 L Hct 32.5 L MCV 84.4 MCH 26.2 L MCHC 31.1 L RDW 16.4 H Plt Count 291 MPV 10.5 Neut # (Auto) 9.6 H Lymph # (Auto) 2.3 [place] # (Auto) 1.3 H Eos # (Auto) 0.8 H Baso # (Auto) 0.0 Absolute Nucleated RBC 0.00 Nucleated RBC % 0.0 VBG pH VBG pCO2 VBG pO2 VBG HCO3 VBG Total CO2 VBG O2 Saturation VBG Base Excess Sodium 132 L Potassium 3.1 L Chloride 96 L Carbon Dioxide 25 Anion Gap 11.0 BUN 13 Creatinine 0.7 Estimated GFR (MDRD) 90 Glucose 337 H Calcium 8.4 L Total Bilirubin 0.3 AST 15 ALT 11 Alkaline Phosphatase 78 Total Protein 6.6 L Albumin 3.5 Globulin 3.1 Albumin/Globulin Ratio 1.1 Lipase 22 TSH 4.19 Urine Color Urine Clarity Urine pH Ur Specific [place] Urine Protein Urine Glucose (UA) Urine Ketones Urine Occult Blood Urine Nitrite Urine Bilirubin Urine Urobilinogen Ur Leukocyte Esterase Ur Microscopic Review Urine Culture Comments Urine HCG, Qual Serum Ketones NEGATIVE 05/18/19 05/18/19 11:16 11:48 WBC RBC Hgb Hct MCV MCH MCHC RDW Plt Count MPV Neut # (Auto) Lymph # (Auto) [place] # (Auto) Eos # (Auto) Baso # (Auto) Absolute Nucleated RBC Nucleated RBC % VBG pH 7.340 VBG pCO2 55.7 H VBG pO2 42.8 VBG HCO3 29.4 H VBG Total CO2 31.1 H VBG O2 Saturation 78.8 VBG Base Excess 2.7 H Sodium Potassium Chloride Carbon Dioxide Anion Gap BUN Creatinine Estimated GFR (MDRD) Glucose Calcium Total Bilirubin AST ALT Alkaline Phosphatase Total Protein Albumin Globulin Albumin/Globulin Ratio Lipase TSH Urine Color YELLOW Urine Clarity CLEAR Urine pH 6.5 Ur Specific [place] <=1.005 Urine Protein NEGATIVE Urine Glucose (UA) 100 H Urine Ketones NEGATIVE Urine Occult Blood NEGATIVE Urine Nitrite NEGATIVE Urine Bilirubin NEGATIVE Urine Urobilinogen 0.2 (NORMAL) Ur Leukocyte Esterase NEGATIVE Ur Microscopic Review NOT INDICATED Urine Culture Comments NOT INDICATED Urine HCG, Qual NEGATIVE Serum Ketones PD MEDICAL DECISION MAKING - ED course Complexity details: reviewed old records, reviewed results, re-evaluated patient, considered differential, d/w patient ED course: Patient is a known type I diabetic presenting with hypoglycemia. Do have concern for possible insulin pump issues upon arrival to the ED, pump turned off. Patient does appear slightly confused and tearful, but otherwise without complaints. Physical exam reveals slightly dry, but otherwise no signs of new neurological deficit, trauma, or systemic illness. Abdominal exam is benign. Screening lab work and urinalysis ordered and patient received amp of D50 which causes appropriate rebound and blood glucose. Patient then able to tolerate oral intake without issue and repeat blood glucose increase appropriately. Screening lab work and urinalysis returned relatively unremarkable except for changes indicative of her underlying disease process, but no significant findin gs to indicate acute issues today. inclusion special educator contacted and evaluated patient further in the ED. It was determined that patient bolused herself this morning, but did not eat her breakfast as planned which is likely the cause of hypoglycemia. The insulin pump seems to be working and patient is clear on her schedule and titration.At this time, feel that patient is safe to discharge home with close follow-up with her machine learning intern and primary care physician, as well as extension educator. Also advised on supportive cares and strict return precautions. Patient's daughter able to come to the ED to pick her up. Departure - Departure Disposition: 01 Home, Self Care Clinical Impression: Hypoglycemia Condition: Good Instructions: ED Diabetes Hypoglycemia Insulin React Follow-Up: Isatu Belle MD [Primary Care Provider] - Within 3 Days Comments: Please continue all home medications as instructed and be aware of your insulin pump, as well as insulin boluses. Please be aware of your food and fluid intake as well. Follow-up with your primary care physician and machine learning intern, as well as extension educator in the next 2 to 3 days. Please return to ED sooner if experience complications with pump, return of symptoms, or other concerns.
[2019-05-18 11:25] LABS: VBG PCO2 55.7 mmHg (41-51); VBG PH 7.34 (7.31-7.41); VBG PO2 42.8 mmHg (25-47)
[2019-05-18 11:26] LABS: VBG BASE EXCESS 2.7 mmol/L (-2 - +2); VBG TOTAL CO2 31.1 mmol/L (24-29)
[2019-05-18 11:29] LABS: BASOPHILS % (AUTO) 0.3 %; EOSINOPHILS # (AUTO) 0.8 10^3/uL (0.0-0.7); EOSINOPHILS % (AUTO) 5.8 %; HGB - HEMOGLOBIN 10.1 g/dL (12.0-16.0); LYMPHOCYTES # (AUTO) 2.3 10^3/uL (1.5-3.5); LYMPHOCYTES % (AUTO) 16.3 %; MEAN CORPUSCULAR HEMOGLOBIN 26.2 pg (27.0-31.0); MEAN CORPUSCULAR HGB CONC 31.1 g/dL (32.0-36.0); MEAN CORPUSCULAR VOLUME 84.4 fL (81.0-99.0); MEAN PLATELET VOLUME 10.5 fL (7.9-10.8); MONOCYTES # (AUTO) 1.3 10^3/uL (0.0-1.0); MONOCYTES % (AUTO) 9.1 %; NEUTROPHILS # (AUTO) 9.6 10^3/uL (1.5-6.6); NEUTROPHILS % (AUTO) 68.2 %; PLT - PLATELET COUNT 291 10^3/uL (130-450); RED BLOOD COUNT 3.85 10^6/uL (4.20-5.40); RED CELL DISTRIBUTION WIDTH 16.4 % (12.0-15.0)
[2019-05-18 11:38] LABS: ALBUMIN 3.5 g/dL (3.2-5.5); ALBUMIN/GLOBULIN RATIO 1.1 (1.0-2.2); ALKALINE PHOSPHATASE 78 IU/L (42-121); ALT ALANINE AMINOTRANSFERASE 11 IU/L (10-60); AST ASPARTATE AMINOTRANSFERASE 15 IU/L (10-42); BILIRUBIN,TOTAL 0.3 mg/dL (0.2-1.0); BUN - BLOOD UREA NITROGEN 13 mg/dL (6-20); CALCIUM 8.4 mg/dL (8.5-10.3); CARBON DIOXIDE - CO2 25 mmol/L (21-32); CHLORIDE 96 mmol/L (101-111); CREATININE 0.7 mg/dL (0.4-1.0); GFR - MDRD 90 (>89); GLUCOSE 337 mg/dL (70-100); LIPASE 22 U/L (22-51); SODIUM 132 mmol/L (135-145); TOTAL PROTEIN 6.6 g/dL (6.7-8.2)
[2019-05-18] MEDS ORDERED: ONDANSETRON 4 MG/2 ML VIAL IVP STA (11:49)
[2019-05-18] MEDS ORDERED: SODIUM CHLORIDE 0.9% 1,000 ML IV ONE (11:49)
[2019-05-18 12:01] LABS: KETONES, SERUM (ACETEST) NEGATIVE (NEGATIVE)
[2019-05-18 12:22] LABS: BILIRUBIN,URINE NEGATIVE (NEGATIVE); CLARITY,URINE CLEAR (CLEAR); GLUCOSE, URINE (UA) 100 mg/dL (NEGATIVE); KETONES,URINE (UA) NEGATIVE (NEGATIVE); LEUKOCYTE ESTERASE, URINE NEGATIVE (NEGATIVE); NITRITE,URINE NEGATIVE (NEGATIVE); OCCULT BLOOD,URINE NEGATIVE (NEGATIVE); PH,URINE 6.5 PH (5.0-7.5); PROTEIN,URINE NEGATIVE (NEGATIVE); UROBILINOGEN,URINE 0.2 (NORMAL) E.U./dL (NORMAL)
[2019-05-18 12:23] LABS: HCG UR QUAL NEGATIVE
[2019-05-18 13:22] VITALS: BP 127/88
== END 2019-05-18 14:05 | disposition home or self-care (01) ==
LOC: ED 10:51
DX: E10.649 Type 1 diabetes mellitus with hypoglycemia without coma (principal); E10.42 Type 1 diabetes mellitus with diabetic polyneuropathy; F17.200 Nicotine dependence, unspecified, uncomplicated; Z96.41 Presence of insulin pump (external) (internal)
CPT/HCPCS: 36415; 80053; 81001; 81003; 81025; 82009; 82803; 83690; 84443; 85025; 87086; 96361; 96374; 99283

== ENCOUNTER 2019-05-22 14:54 | Outpatient (CLI) | payer MEDICARE, MEDICAID | END 2019-05-22 14:55 | disposition critical access hospital (66) | LOC: EMS 14:54 | PROVIDERS: ATTEND Surgery | DX: R45.851 Suicidal ideations (principal) | CPT/HCPCS: A0425; A0429 ==

== ENCOUNTER 2019-05-22 15:15 | Emergency (ER) | payer MEDICARE, MEDICAID ==
[2019-05-22 15:35] LABS: BASOPHILS # (AUTO) 0.1 10^3/uL (0.0-0.1); BASOPHILS % (AUTO) 0.6 %; EOSINOPHILS # (AUTO) 0.6 10^3/uL (0.0-0.7); HGB - HEMOGLOBIN 10.2 g/dL (12.0-16.0); LYMPHOCYTES # (AUTO) 3.1 10^3/uL (1.5-3.5); LYMPHOCYTES % (AUTO) 38.6 %; MEAN CORPUSCULAR HEMOGLOBIN 26.6 pg (27.0-31.0); MEAN CORPUSCULAR HGB CONC 31.3 g/dL (32.0-36.0); MEAN CORPUSCULAR VOLUME 85.1 fL (81.0-99.0); MEAN PLATELET VOLUME 9.8 fL (7.9-10.8); MONOCYTES # (AUTO) 0.6 10^3/uL (0.0-1.0); MONOCYTES % (AUTO) 7.6 %; NEUTROPHILS # (AUTO) 3.5 10^3/uL (1.5-6.6); NEUTROPHILS % (AUTO) 44.7 %; PLT - PLATELET COUNT 245 10^3/uL (130-450); RED BLOOD COUNT 3.83 10^6/uL (4.20-5.40); RED CELL DISTRIBUTION WIDTH 17.2 % (12.0-15.0); WHITE BLOOD COUNT 7.9 x10^3/uL (4.8-10.8)
[2019-05-22 15:51] LABS: ACETAMINOPHEN < 10 ug/mL (10-30); ALBUMIN 3.2 g/dL (3.2-5.5); ALBUMIN/GLOBULIN RATIO 0.9 (1.0-2.2); ALKALINE PHOSPHATASE 89 IU/L (42-121); ALT ALANINE AMINOTRANSFERASE 20 IU/L (10-60); AST ASPARTATE AMINOTRANSFERASE 21 IU/L (10-42); BILIRUBIN,TOTAL 0.3 mg/dL (0.2-1.0); BUN - BLOOD UREA NITROGEN 11 mg/dL (6-20); CALCIUM 8.5 mg/dL (8.5-10.3); CARBON DIOXIDE - CO2 26 mmol/L (21-32); CHLORIDE 102 mmol/L (101-111); CREATININE 0.5 mg/dL (0.4-1.0); GFR - MDRD 133 (>89); GLUCOSE 72 mg/dL (70-100); LIPASE 22 U/L (22-51); SALICYLATE < 6.0 mg/dL; SODIUM 138 mmol/L (135-145); TOTAL PROTEIN 6.6 g/dL (6.7-8.2)
[2019-05-22 15:52] LABS: MUDS CUTOFF CONCENTRATIONS CUTOFF CONC BELOW:
--- NOTE | 2019-05-22 15:58 | ED Physician Documentation ---
PD HPI MHE - Stated complaint Stated Complaint: SI - Chief complaint Chief Complaint: MHE - History obtained from History obtained from: Patient, EMS - History of Present Illness Primary symptom: Suicidal ideation Timing - onset: Today Pain level max: 0 Pain level now: 0 Contributing factors: No: Family, Sig other, Work, School, Money, Legal, Substance abuse - ETOH, Substance abuse - drugs, Off meds, Out of meds Similar symptoms before: Has not had sx before - Additional information Additional information: 44-year-old female presents to the emergency department complaint of generalized weakness. She states that she has been feeling suicidal occasionally as well. She denies any current plan. She denies any fevers, nausea, vomiting, diarrhea, focal weakness. No abdominal pain. No chest pain. No palpitations. Review of Systems Ten Systems: 10 systems reviewed and negative Constitutional: denies: Fever, Chills Nose: denies: Rhinorrhea / runny nose Throat: denies: Sore throat Cardiac: denies: Chest pain / pressure Respiratory: denies: Cough GI: denies: Nausea, Vomiting, Diarrhea : denies: Dysuria, Frequency, Hesitancy Skin: denies: Rash Musculoskeletal: denies: Neck pain, Back pain Neurologic: reports: Generalized weakness (states "just feels weak"). 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: Other : Kidney stones, Other HEENT: Chronic vision loss, Chronic sinusitis Psych: Depression, Anxiety, Bipolar disorder, ADD/ADHD, Post traumatic stress disorder, Other Musculoskeletal: Osteoarthritis, Fibromyalgia, Fatigue, Chronic back pain Derm: None - Past Surgical History Past Surgical History: Yes General: Gastric surgery, Other Ortho: Rotator cuff repair, Other /MILIEU 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, Endometrial ablation, Tubal ligation - Present Medications Home Medications: Ambulatory Orders Medication Instructions Recorded Confirmed Insulin Lispro [Humalog] 20 - 25 units SQ DAILY 10/30/15 05/18/19 clonazePAM [Clonazepam] 1 mg PO TID PRN 10/30/15 05/18/19 Baclofen 10 mg PO QID PRN 06/03/16 05/18/19 Escitalopram Oxalate [Lexapro] 40 mg PO DAILY 05/22/18 05/18/19 Levothyroxine [Synthroid] 112 mcg PO QDAC 05/22/18 05/18/19 Simvastatin 20 mg PO QPM 05/22/18 05/18/19 Pantoprazole Sodium [Protonix] 20 mg PO DAILY 11/14/18 05/18/19 Butalb/Acetam/Caff 50/325/40 1 tab PO Q4H PRN 01/22/19 05/18/19 [Fioricet] Duloxetine HCl 60 mg PO DAILY 01/22/19 05/18/19 Oxycodone HCl 10 mg PO QID PRN 01/22/19 05/18/19 Promethazine [Phenergan] 25 mg PO Q6H PRN 01/22/19 05/18/19 Aspirin [Adult Aspirin] 81 mg PO DAILY 01/23/19 05/18/19 Pramipexole [Mirapex] 0.25 mg PO QID 01/23/19 05/18/19 Prazosin HCl 5 mg PO QPM 01/23/19 05/18/19 Trazodone HCl 300 mg PO QPM 01/23/19 05/18/19 Metoclopramide [Reglan] 10 mg PO ACHS #90 tablet 01/24/19 05/18/19 Hydrocodone/Acetaminophen [[place] 1 each PO TID PRN #15 tablet 04/05/19 05/18/19 10-325 Tablet] Tizanidine HCl 4 mg PO TID PRN #20 capsule 04/05/19 05/18/19 Amphetamine Sulfate 20 mg PO BID 05/18/19 05/18/19 Potassium Citrate [Urocit-K] 1,080 meq PO BID 05/18/19 05/18/19 SUMAtriptan succinate [Sumatriptan 100 mg PO DAILY PRN 05/18/19 05/18/19 Succinate] Selenium 200 mcg PO DAILY 05/18/19 05/18/19 Spironolactone 100 mg PO DAILY 05/18/19 05/18/19 - Allergies Allergies/Adverse Reactions: Allergies Allergy/AdvReac Type Severity Reaction Status Date / Time carisoprodol [From Soma] Allergy Unknown Verified 05/18/19 11:03 divalproex sodium Allergy Rash Verified 05/18/19 11:03 [From Depakote] gabapentin [From Neurontin] Allergy Edema Verified 05/18/19 11:03 lidocaine Allergy Unknown Verified 05/18/19 11:03 nitrofurantoin Allergy Rash Verified 05/18/19 11:03 macrocrystalline * [From Macrodantin] nortriptyline Allergy Unknown Verified 05/18/19 11:03 ondansetron [From Zofran] Allergy Hives Verified 05/18/19 11:03 ondansetron HCl * Allergy Hives Verified 05/18/19 11:03 [From Zofran (as hydrochloride)] pregabalin [From Lyrica] Allergy Headache Verified 05/18/19 11:03 - Social History Does the pt smoke?: Yes Smoking Status: Current every day smoker Does the pt drink ETOH?: No Does the pt have substance abuse?: No - Immunizations Immunizations are current?: Yes Immunizations: TDAP >10years/unknown - POLST Patient has POLST: No POLST Status: Full Code PD ED PE NORMAL - Vitals Vital signs reviewed: Yes - General General: Alert and oriented X 3, No acute distress, Well developed/nourished - HEENT HEENT: PERRL, Moist mucous membranes - Neck Neck: Supple, no meningeal sign - Cardiac Cardiac: RRR, Strong equal pulses - Respiratory Respiratory: No respiratory distress, Clear bilaterally - Abdomen Abdomen: Soft, Non tender, Non distended - Derm Derm: Warm and dry - Extremities Extremities: No deformity, No edema, No calf tenderness / cord - Neuro Neuro: Alert and oriented X 3, us administrative law judge 2-12 intact, No motor deficit, No sensory deficit, Normal speech - Psych Psych: Other (flat affect.) Results - Vitals Vitals: Vital Signs - 24 hr 05/22/19 05/22/19 05/22/19 15:20 16:19 18:56 Temperature 36.7 C Heart Rate 78 73 84 Respiratory 16 16 16 Rate Blood Pressure 142/78 H 135/77 H 128/84 H O2 Saturation 97 98 97 Oxygen O2 Source Room air - Labs Labs: Laboratory Tests 05/22/19 05/22/19 05/22/19 15:27 15:27 15:27 WBC 7.9 RBC 3.83 L Hgb 10.2 L Hct 32.6 L MCV 85.1 MCH 26.6 L MCHC 31.3 L RDW 17.2 H Plt Count 245 MPV 9.8 Neut # (Auto) 3.5 Lymph # (Auto) 3.1 [place] # (Auto) 0.6 Eos # (Auto) 0.6 Baso # (Auto) 0.1 Absolute Nucleated RBC 0.00 Nucleated RBC % 0.0 Sodium 138 Potassium 3.9 Chloride 102 Carbon Dioxide 26 Anion Gap 10.0 BUN 11 Creatinine 0.5 Estimated GFR (MDRD) 133 Glucose 72 Calcium 8.5 Total Bilirubin 0.3 AST 21 ALT 20 Alkaline Phosphatase 89 Total Protein 6.6 L Albumin 3.2 Globulin 3.4 Albumin/Globulin Ratio 0.9 L Lipase 22 TSH 0.98 Urine Color Urine Clarity Urine pH Ur Specific [place] Urine Protein Urine Glucose (UA) Urine Ketones Urine Occult Blood Urine Nitrite Urine Bilirubin Urine Urobilinogen Ur Leukocyte Esterase Ur Microscopic Review Urine Culture Comments Urine HCG, Qual Salicylates < 6.0 Urine Opiates Screen Ur Oxycodone Screen Urine Methadone Screen Ur Propoxyphene Screen Acetaminophen < 10 L Ur Barbiturates Screen Ur Tricyclics Screen Ur Phencyclidine Scrn Ur Amphetamine Screen U Methamphetamines Scrn U Benzodiazepines Scrn Urine Cocaine Screen U Cannabinoids Screen Ethyl Alcohol < 5.0 05/22/19 05/22/19 15:44 15:44 WBC RBC Hgb Hct MCV MCH MCHC RDW Plt Count MPV Neut # (Auto) Lymph # (Auto) [place] # (Auto) Eos # (Auto) Baso # (Auto) Absolute Nucleated RBC Nucleated RBC % Sodium Potassium Chloride Carbon Dioxide Anion Gap BUN Creatinine Estimated GFR (MDRD) Glucose Calcium Total Bilirubin AST ALT Alkaline Phosphatase Total Protein Albumin Globulin Albumin/Globulin Ratio Lipase TSH Urine Color YELLOW Urine Clarity CLEAR Urine pH 7.0 Ur Specific [place] <=1.005 Urine Protein NEGATIVE Urine Glucose (UA) NEGATIVE Urine Ketones NEGATIVE Urine Occult Blood NEGATIVE Urine Nitrite NEGATIVE Urine Bilirubin NEGATIVE Urine Urobilinogen 0.2 (NORMAL) Ur Leukocyte Esterase NEGATIVE Ur Microscopic Review NOT INDICATED Urine Culture Comments NOT INDICATED Urine HCG, Qual NEGATIVE Salicylates Urine Opiates Screen NEGATIVE Ur Oxycodone Screen POSITIVE H Urine Methadone Screen NEGATIVE Ur Propoxyphene Screen NEGATIVE Acetaminophen Ur Barbiturates Screen POSITIVE H Ur Tricyclics Screen NEGATIVE Ur Phencyclidine Scrn NEGATIVE Ur Amphetamine Screen NEGATIVE U Methamphetamines Scrn NEGATIVE U Benzodiazepines Scrn NEGATIVE Urine Cocaine Screen NEGATIVE U Cannabinoids Screen NEGATIVE Ethyl Alcohol PD MEDICAL DECISION MAKING - ED course Complexity details: reviewed results, re-evaluated patient, considered differ ential, d/w patient, d/w oracle drm consultant ED course: No significant laboratory abnormalities. No focal neurological deficits. Normal neurological exam. NIH stroke scale of 0. Consulted social work and a plan of safety was created and will follow up with her doctor for further care. She should see a counselor as well. Patient is comfortable with this plan. Patient counseled regarding signs and symptoms for which I believe and urgent re-evaluation would be necessary. Patient with good understanding of and agreement to plan and is comfortable going home at this time This document was made in part using voice recognition software. While efforts are made to proofread this document, sound alike and grammatical errors may occur. Departure - Departure Disposition: 01 Home, Self Care Clinical Impression: Suicidal ideation, Weakness Condition: Good Instructions: ED Depression, ED Weakness [facility] Follow-Up: Isatu Belle MD [Primary Care Provider] - Within 3 Days Comments: Follow-up closely with your doctor for further care. Return if you worsen. Follow-up as instructed by social work today. Crisis Line and is available to talk to someone [email or web address] is also available to chat with someone online if you prefer. There are also many resources on this website and apps for your phone to help with your mental health You can also text the word START to [phone] to chat with someome via text. Discharge Date/Time: 05/22/19 18:57
[2019-05-22 16:00] LABS: BILIRUBIN,URINE NEGATIVE (NEGATIVE); GLUCOSE, URINE (UA) NEGATIVE (NEGATIVE); KETONES,URINE (UA) NEGATIVE (NEGATIVE); LEUKOCYTE ESTERASE, URINE NEGATIVE (NEGATIVE); NITRITE,URINE NEGATIVE (NEGATIVE); OCCULT BLOOD,URINE NEGATIVE (NEGATIVE); PROTEIN,URINE NEGATIVE (NEGATIVE); UROBILINOGEN,URINE 0.2 (NORMAL) E.U./dL (NORMAL)
[2019-05-22 16:01] LABS: CLARITY,URINE CLEAR (CLEAR); HCG UR QUAL NEGATIVE
[2019-05-22 16:11] LABS: AMPHETAMINE SCREEN,URINE NEGATIVE (NEGATIVE); BENZODIAZEPINES SCREEN, URINE NEGATIVE (NEGATIVE); COCAINE SCREEN URINE NEGATIVE (NEGATIVE); METHADONE SCREEN, URINE NEGATIVE (NEGATIVE); METHAMPHETAMINES SCREEN, URINE NEGATIVE (NEGATIVE); OPIATE SCREEN, URINE NEGATIVE (NEGATIVE); OXYCODONE SCREEN, URINE POSITIVE (NEGATIVE); PROPOXYPHENE SCREEN, URINE NEGATIVE (NEGATIVE); TRICYCLIC ANTIDEPRESSANT,URINE NEGATIVE (NEGATIVE)
[2019-05-22 18:58] VITALS: BP 128/84
== END 2019-05-22 18:57 | disposition home or self-care (01) ==
LOC: ED 15:15
DX: R45.851 Suicidal ideations (principal); R53.1 Weakness; E10.9 Type 1 diabetes mellitus without complications; F17.200 Nicotine dependence, unspecified, uncomplicated
CPT/HCPCS: 80053; 80306; 80307; 80320; 80329; 81001; 81003; 81025; 83690; 84443; 85025; 87086; 99283; 99284

== ENCOUNTER 2019-06-20 12:13 | Outpatient (CLI) | payer MEDICARE, MEDICAID ==
--- NOTE | 2019-06-22 09:34 | Ultrasound Report ---
Reason: DISPLACED FRACTURE OF LATERAL MALLELOUS Procedure Date: 06/20/2019 Accession Number: [id number] / [id number] Procedure: US - Duplex Ext Veins Left CPT Code: FULL RESULT: EXAM: LEFT LOWER EXTREMITY VENOUS ULTRASOUND EXAM DATE: 06/20/2019 12:36 PM. CLINICAL HISTORY: Displaced fracture of lateral malleolus. COMPARISON: None. TECHNIQUE: Real-time sonographic vascular imaging was performed by the low voltage technician through the lower extremity utilizing both color-flow and Doppler spectral analysis. Multiple teleservices representative static images were saved for review. FINDINGS: Common Femoral Vein (CFV): Normal. CFV-GSV Junction: Normal. Profunda Femoral Vein (PFV): Normal. Femoral Vein (FV) Prox: Normal. Femoral Vein (FV) Mid: Normal. Femoral Vein (FV) Dist: Normal. Popliteal Vein: Normal. Posterior Tibial Veins: Normal. Peroneal Veins: Normal. Other: Superficial soft tissue edema is noted. IMPRESSION: No evidence for deep venous thrombosis. [facility]
== END 2019-06-20 12:14 | disposition home or self-care (01) ==
LOC: DI 12:13
PROVIDERS: ATTEND Orthopaedic Surgery Sports Medicine
DX: R60.0 Localized edema (principal); S82.62XD Displaced fracture of lateral malleolus of left fibula, subsequent encounter for closed fracture with routine healing

== ENCOUNTER 2019-06-28 18:28 | Emergency (ER) | payer MEDICARE, MEDICAID ==
--- NOTE | 2019-06-28 20:32 | ED Physician Documentation ---
PD HPI URI - Stated complaint Stated Complaint: HEADACHE/COUGH/PX - Chief complaint Chief Complaint: Neuro - History obtained from History obtained from: Patient - History of Present Illness Timing - onset: How many days ago (3) Timing duration: Days (3) Timing details: Gradual onset, Still present Associated symptoms: Chills, Productive cough, NVD (nausea without vomiting.) Contributing factors: No: Sick contact, Travel Worsened by: Activity Similar symptoms before: Has not had sx before Recently seen: Not recently seen Review of Systems Constitutional: reports: Chills, Myalgias, Fatigue. denies: Fever Nose: denies: Rhinorrhea / runny nose, Congestion Throat: denies: Sore throat Cardiac: reports: Chest pain / pressure (with coughing). denies: Palpitations, Pedal edema, Calf pain Respiratory: reports: Dyspnea, Cough GI: reports: Nausea. denies: Abdominal Pain, Vomiting, Diarrhea Skin: denies: Rash, Lesions Musculoskeletal: denies: Neck pain Neurologic: reports: Generalized weakness, Headache. 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 : Kidney stones, Other HEENT: Chronic vision loss, Chronic sinusitis Psych: Depression, Anxiety, Bipolar disorder, ADD/ADHD, Post traumatic stress disorder, Other Musculoskeletal: Osteoarthritis, Fibromyalgia, Fatigue, Chronic back pain Derm: None - Past Surgical History Past Surgical History: Yes General: Gastric surgery, Other Ortho: Rotator cuff repair, 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 /FINISH REPAIR WORKER: section, Endometrial ablation, Tubal ligation - Present Medications Home Medications: Ambulatory Orders Medication Instructions Recorded Confirmed Insulin Lispro [Humalog] 20 - 25 units SQ DAILY 10/30/15 05/18/19 clonazePAM [Clonazepam] 1 mg PO TID PRN 10/30/15 05/18/19 Baclofen 10 mg PO QID PRN 06/03/16 05/18/19 Escitalopram Oxalate [Lexapro] 40 mg PO DAILY 05/22/18 05/18/19 Levothyroxine [Synthroid] 112 mcg PO QDAC 05/22/18 05/18/19 Simvastatin 20 mg PO QPM 05/22/18 05/18/19 Pantoprazole Sodium [Protonix] 20 mg PO DAILY 11/14/18 05/18/19 Butalb/Acetam/Caff 50/325/40 1 tab PO Q4H PRN 01/22/19 05/18/19 [Fioricet] Duloxetine HCl 60 mg PO DAILY 01/22/19 05/18/19 Oxycodone HCl 10 mg PO QID PRN 01/22/19 05/18/19 Promethazine [Phenergan] 25 mg PO Q6H PRN 01/22/19 05/18/19 Aspirin [Adult Aspirin] 81 mg PO DAILY 01/23/19 05/18/19 Pramipexole [Mirapex] 0.25 mg PO QID 01/23/19 05/18/19 Prazosin HCl 5 mg PO QPM 01/23/19 05/18/19 Trazodone HCl 300 mg PO QPM 01/23/19 05/18/19 Metoclopramide [Reglan] 10 mg PO ACHS #90 tablet 01/24/19 05/18/19 Hydrocodone/Acetaminophen [[place] 1 each PO TID PRN #15 tablet 04/05/19 05/18/19 10-325 Tablet] Tizanidine HCl 4 mg PO TID PRN #20 capsule 04/05/19 05/18/19 Amphetamine Sulfate 20 mg PO BID 05/18/19 05/18/19 Potassium Citrate [Urocit-K] 1,080 meq PO BID 05/18/19 05/18/19 SUMAtriptan succinate [Sumatriptan 100 mg PO DAILY PRN 05/18/19 05/18/19 Succinate] Selenium 200 mcg PO DAILY 05/18/19 05/18/19 Spironolactone 100 mg PO DAILY 05/18/19 05/18/19 Albuterol Sulf [Ventolin Hfa 1 - 2 puffs INH Q4HR PRN #1 inhaler 06/28/19 Inhaler] Benzonatate [Tessalon Perle] 100 mg PO TID PRN #25 capsule 06/28/19 Doxycycline Hyclate 100 mg PO BID #14 capsule 06/28/19 Hydrocodone/Acetaminophen [[place] 1 each PO Q6H PRN #15 tablet 06/28/19 5-325 Tablet] - Allergies Allergies/Adverse Reactions: Allergies Allergy/AdvReac Type Severity Reaction Status Date / Time carisoprodol [From Soma] Allergy Unknown Verified 06/28/19 18:36 divalproex sodium Allergy Rash Verified 06/28/19 18:36 [From Depakote] gabapentin [From Neurontin] Allergy Edema Verified 06/28/19 18:36 lidocaine Allergy Unknown Verified 06/28/19 18:36 nitrofurantoin Allergy Rash Verified 06/28/19 18:36 macrocrystalline * [From Macrodantin] nortriptyline Allergy Unknown Verified 06/28/19 18:36 ondansetron [From Zofran] Allergy Hives Verified 06/28/19 18:36 ondansetron HCl * Allergy Hives Verified 06/28/19 18:36 [From Zofran (as hydrochloride)] pregabalin [From Lyrica] Allergy Headache Verified 06/28/19 18:36 - Social History Does the pt smoke?: Yes Smoking Status: Current every day smoker Does the pt drink ETOH?: No Does the pt have substance abuse?: No - Immunizations Immunizations are current?: Yes Immunizations: TDAP >10years/unknown - POLST Patient has POLST: No POLST Status: Full Code PD ED PE NORMAL - Vitals Vital signs reviewed: Yes - General General: Alert and oriented X 3, Well developed/nourished - HEENT HEENT: Ears normal, Pharynx benign - Neck Neck: Supple, no meningeal sign, No adenopathy - Cardiac Cardiac: RRR, No murmur - Respiratory Respiratory: No: Clear bilaterally (some scattered wheezing noted) - Abdomen Abdomen: Soft, Non tender - Back Back: No CVA TTP - Derm Derm: Normal color, Warm and dry - Extremities Extremities: No tenderness to palpate, Normal ROM s pain, No edema, No calf tenderness / cord - Neuro Neuro: Alert and oriented X 3, No motor deficit, Normal speech Eye Opening: Spontaneous Motor: Obeys Commands Verbal: Oriented GCS Score: 15 Results - Vitals Vitals: Oxygen O2 Source Room air - Labs Labs: Laboratory Tests 06/28/19 06/28/19 06/28/19 21:13 21:13 21:13 WBC 4.3 L RBC 4.18 L Hgb 10.5 L Hct 35.1 L MCV 84.0 MCH 25.1 L MCHC 29.9 L RDW 17.2 H Plt Count 272 MPV 9.8 Neut # (Auto) 1.5 Lymph # (Auto) 2.1 [place] # (Auto) 0.5 Eos # (Auto) 0.3 Baso # (Auto) 0.0 Absolute Nucleated RBC 0.00 Nucleated RBC % 0.0 Sodium 138 Potassium 3.7 Chloride 104 Carbon Dioxide 23 Anion Gap 11.0 BUN 8 Creatinine 0.8 Estimated GFR (MDRD) 77 L Glucose 152 H Lactic Acid 1.9 Calcium 9.0 Magnesium 2.1 Total Bilirubin 0.2 AST 46 H ALT 28 Alkaline Phosphatase 118 Total Protein 7.5 Albumin 3.6 Globulin 3.9 Albumin/Globulin Ratio 0.9 L Lipase 23 Serum Ketones NEGATIVE - Rads (name of study) chest xray Radiology: Prelim report reviewed (no acute infiltrates), EMP read contemporaneously, See rad report PD MEDICAL DECISION MAKING - ED course Complexity details: reviewed results, re-evaluated patient (improved with neb and meds. Will treat as bronchitis. ), considered differential, d/w patient Departure - Departure Disposition: 01 Home, Self Care Clinical Impression: Lower resp. tract infection, Nausea, Blood per rectum Headache Qualifiers: Headache type: unspecified Headache chronicity pattern: acute headache Intractability: not intractable Qualified Code(s): R51 - Headache Condition: Stable Record reviewed to determine appropriate education?: Yes Instructions: ED Upper Resp Infec Abx Tx, ED Hematochezia Stable Follow-Up: Isatu Belle MD [Primary Care Provider] - Prescriptions: Albuterol Sulf [Ventolin Hfa Inhaler] 1 - 2 puffs INH Q4HR PRN #1 inhaler PRN Reason: Shortness Of Air/Wheezing Benzonatate [Tessalon Perle] 100 mg PO TID PRN #25 capsule PRN Reason: Cough Doxycycline Hyclate 100 mg PO BID #14 capsule Hydrocodone/Acetaminophen [[place] 5-325 Tablet] 1 each PO Q6H PRN #15 tablet PRN Reason: Pain Comments: Continue your Fioricet and nausea medicines at home as well as your usual other medicines. Small frequent fluids. Albuterol inhaler 2 puffs 4 times a day and extra times as needed for cough and wheezing. Doxycycline antibiotic twice daily for a week. Add Tessalon if needed for cough. Add hydrocodone if needed for cough or pain. Recheck if not improving well over the next couple of days. Discharge Date/Time: 06/28/19 23:31
[2019-06-28] MEDS ORDERED: ALBUTEROL NEB 2.5 MG/3 ML INH STA (20:57)
[2019-06-28] MEDS ORDERED: SODIUM CHLORIDE 0.9% 1,000 ML IV ONE (20:57)
[2019-06-28] MEDS ORDERED: PROCHLORPERAZINE 10 MG/2 ML VIAL IVP STA (20:58)
[2019-06-28 21:00] VITALS: BP 124/74
[2019-06-28] MEDS ORDERED: KETOROLAC 15 MG/ML VIAL IVP STA (21:08)
[2019-06-28] MEDS ORDERED: MORPHINE 2 MG/ML CARPUJECT IVP STA (21:08)
[2019-06-28] MEDS ORDERED: DEXAMETHASONE 10 MG/ML VIAL IVP STA (21:09)
[2019-06-28 21:19] LABS: BASOPHILS % (AUTO) 0.5 %; EOSINOPHILS # (AUTO) 0.3 10^3/uL (0.0-0.7); EOSINOPHILS % (AUTO) 6.5 %; HGB - HEMOGLOBIN 10.5 g/dL (12.0-16.0); LYMPHOCYTES # (AUTO) 2.1 10^3/uL (1.5-3.5); LYMPHOCYTES % (AUTO) 47.5 %; MEAN CORPUSCULAR HEMOGLOBIN 25.1 pg (27.0-31.0); MEAN CORPUSCULAR HGB CONC 29.9 g/dL (32.0-36.0); MEAN PLATELET VOLUME 9.8 fL (7.9-10.8); MONOCYTES # (AUTO) 0.5 10^3/uL (0.0-1.0); MONOCYTES % (AUTO) 11.8 %; NEUTROPHILS # (AUTO) 1.5 10^3/uL (1.5-6.6); NEUTROPHILS % (AUTO) 33.2 %; PLT - PLATELET COUNT 272 10^3/uL (130-450); RED BLOOD COUNT 4.18 10^6/uL (4.20-5.40); RED CELL DISTRIBUTION WIDTH 17.2 % (12.0-15.0); WHITE BLOOD COUNT 4.3 x10^3/uL (4.8-10.8)
[2019-06-28 21:29] LABS: KETONES, SERUM (ACETEST) NEGATIVE (NEGATIVE)
[2019-06-28 21:32] LABS: ALBUMIN 3.6 g/dL (3.2-5.5); ALBUMIN/GLOBULIN RATIO 0.9 (1.0-2.2); ALKALINE PHOSPHATASE 118 IU/L (42-121); ALT ALANINE AMINOTRANSFERASE 28 IU/L (10-60); AST ASPARTATE AMINOTRANSFERASE 46 IU/L (10-42); BILIRUBIN,TOTAL 0.2 mg/dL (0.2-1.0); BUN - BLOOD UREA NITROGEN 8 mg/dL (6-20); CARBON DIOXIDE - CO2 23 mmol/L (21-32); CHLORIDE 104 mmol/L (101-111); CREATININE 0.8 mg/dL (0.4-1.0); GFR - MDRD 77 (>89); GLUCOSE 152 mg/dL (70-100); LIPASE 23 U/L (22-51); MAGNESIUM 2.1 mg/dL (1.7-2.8); SODIUM 138 mmol/L (135-145); TOTAL PROTEIN 7.5 g/dL (6.7-8.2)
--- NOTE | 2019-06-28 21:56 | XRAY Report ---
Reason: dyspnea/ cough Procedure Date: 06/28/2019 Accession Number: [id number] / [id number] Procedure: XR - Chest 2 View X-Ray CPT Code: 63397 FULL RESULT: EXAM: CHEST RADIOGRAPHY EXAM DATE: 06/28/2019 09:37 PM. CLINICAL HISTORY: Dyspnea/ cough. COMPARISON: [facility]BS W/PA CHEST RT 04/05/2019 4:51 PM. TECHNIQUE: 2 views. FINDINGS: Lungs/Pleura: No focal opacities evident. No pleural effusion. No pneumothorax. Normal volumes. Mediastinum: Heart and mediastinal contours are unremarkable. Other: Old healed rib fractures of right lateral seventh eighth and ninth ribs. IMPRESSION: No acute cardiopulmonary process. RADIA
[2019-06-28] MEDS ORDERED: HYDROmorphone 2 MG/ML VIAL IVP STA (22:38)
[2019-06-28] MEDS ORDERED: DOXYCYCLINE 100 MG TABLET PO STA (22:39)
[2019-06-28] MEDS ORDERED: BENZONATATE 100 MG CAPSULE PO STA (22:39)
== END 2019-06-28 23:31 | disposition home or self-care (01) ==
LOC: ED 18:28
DX: J22 Unspecified acute lower respiratory infection (principal); R11.0 Nausea; K62.5 Hemorrhage of anus and rectum; E10.42 Type 1 diabetes mellitus with diabetic polyneuropathy; F17.200 Nicotine dependence, unspecified, uncomplicated; Z79.4 Long term (current) use of insulin
CPT/HCPCS: 36415; 71046; 80053; 82009; 83605; 83690; 83735; 85025; 94640; 96361; 96374; 96375; 99284; 99285; A9270; J1170

== ENCOUNTER 2019-07-20 17:41 | Emergency (ER) | payer MEDICARE, MEDICAID ==
[2019-07-20] MEDS ORDERED: HYDROmorphone 1 MG/ML CARPUJECT IVP STA (18:02)
[2019-07-20] MEDS ORDERED: SODIUM CHLORIDE 0.9% 1,000 ML IV ONE (18:03)
--- NOTE | 2019-07-20 18:05 | ED Physician Documentation ---
PD HPI ABD PAIN - Stated complaint Stated Complaint: FEMALE /BLEED - Chief complaint Chief Complaint: Abd Pain - History obtained from History obtained from: Patient - History of Present Illness Timing - onset: Other (44-year-old woman with type 1 diabetes. She had a GI bleed with negative upper and lower endoscopies a little over a year ago. Yesterday she had large volume bloody diarrhea with diffuse central abdominal pain and a headache. She is on antibiotics now for a UTI but that just started today so it could not be causative, however she has been on other antibiotics recently. She denies sick contacts or recent travel. No fevers.) Review of Systems Constitutional: denies: Fever, Chills Cardiac: denies: Chest pain / pressure, Palpitations Respiratory: denies: Dyspnea, Cough GI: reports: Abdominal Pain, Diarrhea, Bloody / black stool. 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 : Kidney stones, Other HEENT: Chronic vision loss, Chronic sinusitis Psych: Depression, Anxiety, Bipolar disorder, ADD/ADHD, Post traumatic stress disorder, Other Musculoskeletal: Osteoarthritis, Fibromyalgia, Fatigue, Chronic back pain Derm: None - Past Surgical History Past Surgical History: Yes General: Gastric surgery, Other Ortho: Rotator cuff repair, 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, Endometrial ablation, Tubal ligation - Present Medications Home Medications: Ambulatory Orders Medication Instructions Recorded Confirmed Insulin Lispro [Humalog] 20 - 25 units SQ DAILY 10/30/15 05/18/19 clonazePAM [Clonazepam] 1 mg PO TID PRN 10/30/15 05/18/19 Baclofen 10 mg PO QID PRN 06/03/16 05/18/19 Escitalopram Oxalate [Lexapro] 40 mg PO DAILY 05/22/18 05/18/19 Levothyroxine [Synthroid] 112 mcg PO QDAC 05/22/18 05/18/19 Simvastatin 20 mg PO QPM 05/22/18 05/18/19 Pantoprazole Sodium [Protonix] 20 mg PO DAILY 11/14/18 05/18/19 Butalb/Acetam/Caff 50/325/40 1 tab PO Q4H PRN 01/22/19 05/18/19 [Fioricet] Duloxetine HCl 60 mg PO DAILY 01/22/19 05/18/19 Oxycodone HCl 10 mg PO QID PRN 01/22/19 05/18/19 Promethazine [Phenergan] 25 mg PO Q6H PRN 01/22/19 05/18/19 Aspirin [Adult Aspirin] 81 mg PO DAILY 01/23/19 05/18/19 Pramipexole [Mirapex] 0.25 mg PO QID 01/23/19 05/18/19 Prazosin HCl 5 mg PO QPM 01/23/19 05/18/19 Trazodone HCl 300 mg PO QPM 01/23/19 05/18/19 Metoclopramide [Reglan] 10 mg PO ACHS #90 tablet 01/24/19 05/18/19 Hydrocodone/Acetaminophen [[place] 1 each PO TID PRN #15 tablet 04/05/19 05/18/19 10-325 Tablet] Tizanidine HCl 4 mg PO TID PRN #20 capsule 04/05/19 05/18/19 Amphetamine Sulfate 20 mg PO BID 05/18/19 05/18/19 Potassium Citrate [Urocit-K] 1,080 meq PO BID 05/18/19 05/18/19 SUMAtriptan succinate [Sumatriptan 100 mg PO DAILY PRN 05/18/19 05/18/19 Succinate] Selenium 200 mcg PO DAILY 05/18/19 05/18/19 Spironolactone 100 mg PO DAILY 05/18/19 05/18/19 Albuterol Sulf [Ventolin Hfa 1 - 2 puffs INH Q4HR PRN #1 inhaler 06/28/19 Inhaler] Benzonatate [Tessalon Perle] 100 mg PO TID PRN #25 capsule 06/28/19 Doxycycline Hyclate 100 mg PO BID #14 capsule 06/28/19 Hydrocodone/Acetaminophen [[place] 1 each PO Q6H PRN #15 tablet 06/28/19 5-325 Tablet] Dicyclomine [Bentyl] 20 mg PO QID PRN #15 capsule 07/20/19 - Allergies Allergies/Adverse Reactions: Allergies Allergy/AdvReac Type Severity Reaction Status Date / Time carisoprodol [From Soma] Allergy Unknown Verified 06/28/19 18:36 divalproex sodium Allergy Rash Verified 06/28/19 18:36 [From Depakote] gabapentin [From Neurontin] Allergy Edema Verified 06/28/19 18:36 lidocaine Allergy Unknown Verified 06/28/19 18:36 nitrofurantoin Allergy Rash Verified 06/28/19 18:36 macrocrystalline * [From Macrodantin] nortriptyline Allergy Unknown Verified 06/28/19 18:36 ondansetron [From Zofran] Allergy Hives Verified 06/28/19 18:36 ondansetron HCl * Allergy Hives Verified 06/28/19 18:36 [From Zofran (as hydrochloride)] pregabalin [From Lyrica] Allergy Headache Verified 06/28/19 18:36 - Social History Does the pt smoke?: Yes Smoking Status: Current every day smoker Does the pt drink ETOH?: No Does the pt have substance abuse?: No - Immunizations Immunizations are current?: Yes Immunizations: TDAP >10years/unknown - POLST Patient has POLST: No POLST Status: Full Code PD ED PE NORMAL - Vitals Vital signs reviewed: Yes - General General: Alert and oriented X 3, No acute distress - HEENT HEENT: PERRL, EOMI - Neck Neck: Supple, no meningeal sign, No bony TTP - Cardiac Cardiac: RRR, No murmur - Respiratory Respiratory: No respiratory distress, Clear bilaterally - Abdomen Abdomen: Other (Slightly hyperactive bowel tones, no tenderness.) - Back Back: No CVA TTP, No spinal TTP - Derm Derm: Normal color, Warm and dry - Neuro Neuro: Alert and oriented X 3, Normal speech Results - Vitals Vitals: Vital Signs - 24 hr 07/20/19 17:46 Temperature 36 C L Respiratory 18 Rate Blood Pressure 106/76 O2 Saturation 97 Oxygen O2 Source Room air - Labs Labs: Laboratory Tests 07/20/19 07/20/19 07/20/19 18:15 18:15 18:15 WBC 7.7 RBC 4.08 L Hgb 10.4 L Hct 34.9 L MCV 85.5 MCH 25.5 L MCHC 29.8 L RDW 17.6 H Plt Count 328 MPV 10.6 Neut # (Auto) 3.8 Lymph # (Auto) 2.6 [place] # (Auto) 0.7 Eos # (Auto) 0.6 Baso # (Auto) 0.1 Absolute Nucleated RBC 0.00 Nucleated RBC % 0.0 PT 9.7 L INR 0.9 Sodium Potassium Chloride Carbon Dioxide Anion Gap BUN Creatinine Estimated GFR (MDRD) Glucose Calcium Total Bilirubin AST ALT Alkaline Phosphatase Total Protein Albumin Globulin Albumin/Globulin Ratio Lipase Blood Type B POSITIVE Antibody Screen NEGATIVE 07/20/19 18:15 WBC RBC Hgb Hct MCV MCH MCHC RDW Plt Count MPV Neut # (Auto) Lymph # (Auto) [place] # (Auto) Eos # (Auto) Baso # (Auto) Absolute Nucleated RBC Nucleated RBC % PT INR Sodium 138 Potassium 3.9 Chloride 101 Carbon Dioxide 27 Anion Gap 10.0 BUN 10 Creatinine 0.8 Estimated GFR (MDRD) 77 L Glucose 151 H Calcium 8.6 Total Bilirubin 0.3 AST 43 H ALT 33 Alkaline Phosphatase 109 Total Protein 7.3 Albumin 3.4 Globulin 3.9 Albumin/Globulin Ratio 0.9 L Lipase 25 Blood Type Antibody Screen PD MEDICAL DECISION MAKING - ED course ED course: 34-year-old woman with diabetes presents with bloody diarrhea yesterday that is resolved today. She appears nontoxic with benign abdominal examination. Her H&H is actually slightly better than normal for her. She was unable to provide a stool sample here and was sent home with collection supplies and order. Departure - Departure Disposition: 01 Home, Self Care Clinical Impression: Diarrhea Qualifiers: Diarrhea type: presumed infectious Qualified Code(s): R19.7 - Diarrhea, unspecified Condition: Stable Record reviewed to determine appropriate education?: Yes Instructions: ED Gastroenteritis Report Pend Prescriptions: Dicyclomine [Bentyl] 20 mg PO QID PRN #15 capsule PRN Reason: Abdominal Pain Comments: Drop a stool sample off in the lab tomorrow. Return for new or worsening s ymptoms.
[2019-07-20 18:28] LABS: BASOPHILS # (AUTO) 0.1 10^3/uL (0.0-0.1); BASOPHILS % (AUTO) 0.6 %; EOSINOPHILS # (AUTO) 0.6 10^3/uL (0.0-0.7); EOSINOPHILS % (AUTO) 7.5 %; HGB - HEMOGLOBIN 10.4 g/dL (12.0-16.0); LYMPHOCYTES # (AUTO) 2.6 10^3/uL (1.5-3.5); LYMPHOCYTES % (AUTO) 33.1 %; MEAN CORPUSCULAR HEMOGLOBIN 25.5 pg (27.0-31.0); MEAN CORPUSCULAR HGB CONC 29.8 g/dL (32.0-36.0); MEAN CORPUSCULAR VOLUME 85.5 fL (81.0-99.0); MEAN PLATELET VOLUME 10.6 fL (7.9-10.8); MONOCYTES # (AUTO) 0.7 10^3/uL (0.0-1.0); MONOCYTES % (AUTO) 8.4 %; NEUTROPHILS # (AUTO) 3.8 10^3/uL (1.5-6.6); NEUTROPHILS % (AUTO) 49.6 %; PLT - PLATELET COUNT 328 10^3/uL (130-450); RED BLOOD COUNT 4.08 10^6/uL (4.20-5.40); RED CELL DISTRIBUTION WIDTH 17.6 % (12.0-15.0); WHITE BLOOD COUNT 7.7 x10^3/uL (4.8-10.8)
[2019-07-20 18:34] LABS: INR 0.9 (0.8-1.2); PT - PROTHROMBIN TIME 9.7 secs (9.9-12.6)
[2019-07-20 18:45] LABS: ALBUMIN 3.4 g/dL (3.2-5.5); ALBUMIN/GLOBULIN RATIO 0.9 (1.0-2.2); BILIRUBIN,TOTAL 0.3 mg/dL (0.2-1.0); CALCIUM 8.6 mg/dL (8.5-10.3); CREATININE 0.8 mg/dL (0.4-1.0); TOTAL PROTEIN 7.3 g/dL (6.7-8.2)
[2019-07-20] MEDS ORDERED: DICYCLOMINE 10 MG CAPSULE PO STA (19:06)
[2019-07-20] MEDS ORDERED: ACETAMINOPHEN 325 MG TABLET PO STA (19:06)
[2019-07-20 19:48] VITALS: BP 125/91
== END 2019-07-20 20:00 | disposition home or self-care (01) ==
LOC: ED 17:41
DX: R19.7 Diarrhea, unspecified (principal); E10.9 Type 1 diabetes mellitus without complications; F17.200 Nicotine dependence, unspecified, uncomplicated
CPT/HCPCS: 36415; 80053; 83690; 85025; 85610; 86850; 86900; 86901; 96361; 96374; 99283; A9270; J1170

== ENCOUNTER 2019-07-26 15:27 | Emergency (ER) | payer MEDICAID, MEDICARE ==
[2019-07-26 15:55] LABS: BASOPHILS # (AUTO) 0.1 10^3/uL (0.0-0.1); BASOPHILS % (AUTO) 0.8 %; EOSINOPHILS # (AUTO) 0.6 10^3/uL (0.0-0.7); EOSINOPHILS % (AUTO) 8.1 %; HGB - HEMOGLOBIN 10.1 g/dL (12.0-16.0); LYMPHOCYTES # (AUTO) 2.6 10^3/uL (1.5-3.5); LYMPHOCYTES % (AUTO) 32.6 %; MEAN CORPUSCULAR HEMOGLOBIN 25.8 pg (27.0-31.0); MEAN CORPUSCULAR HGB CONC 30.9 g/dL (32.0-36.0); MEAN CORPUSCULAR VOLUME 83.6 fL (81.0-99.0); MEAN PLATELET VOLUME 10.6 fL (7.9-10.8); MONOCYTES # (AUTO) 0.4 10^3/uL (0.0-1.0); MONOCYTES % (AUTO) 4.9 %; NEUTROPHILS # (AUTO) 4.2 10^3/uL (1.5-6.6); NEUTROPHILS % (AUTO) 53.1 %; PLT - PLATELET COUNT 286 10^3/uL (130-450); RED BLOOD COUNT 3.91 10^6/uL (4.20-5.40); RED CELL DISTRIBUTION WIDTH 17.2 % (12.0-15.0); WHITE BLOOD COUNT 7.8 x10^3/uL (4.8-10.8)
[2019-07-26 16:12] LABS: ALBUMIN 3.6 g/dL (3.2-5.5); ALBUMIN/GLOBULIN RATIO 0.9 (1.0-2.2); ALKALINE PHOSPHATASE 103 IU/L (42-121); ALT ALANINE AMINOTRANSFERASE 33 IU/L (10-60); AST ASPARTATE AMINOTRANSFERASE 29 IU/L (10-42); BILIRUBIN,TOTAL < 0.2 mg/dL (0.2-1.0); BUN - BLOOD UREA NITROGEN 5 mg/dL (6-20); CALCIUM 9.2 mg/dL (8.5-10.3); CARBON DIOXIDE - CO2 28 mmol/L (21-32); CHLORIDE 102 mmol/L (101-111); CREATININE 0.8 mg/dL (0.4-1.0); GFR - MDRD 77 (>89); GLUCOSE 121 mg/dL (70-100); LIPASE 20 U/L (22-51); SODIUM 139 mmol/L (135-145); TOTAL PROTEIN 7.5 g/dL (6.7-8.2)
[2019-07-26 18:30] LABS: BILIRUBIN,URINE NEGATIVE (NEGATIVE); GLUCOSE, URINE (UA) NEGATIVE (NEGATIVE); KETONES,URINE (UA) NEGATIVE (NEGATIVE); LEUKOCYTE ESTERASE, URINE NEGATIVE (NEGATIVE); NITRITE,URINE NEGATIVE (NEGATIVE); OCCULT BLOOD,URINE NEGATIVE (NEGATIVE); PROTEIN,URINE NEGATIVE (NEGATIVE); UROBILINOGEN,URINE 0.2 (NORMAL) E.U./dL (NORMAL)
[2019-07-26 18:34] LABS: CLARITY,URINE CLEAR (CLEAR); HCG UR QUAL NEGATIVE
[2019-07-26] MEDS ORDERED: KETOROLAC 30 MG/ML VIAL IVP STA (18:58)
[2019-07-26] MEDS ORDERED: SODIUM CHLORIDE 0.9% 1,000 ML IV ONE (18:58)
[2019-07-26] MEDS ORDERED: HALOPERIDOL 5 MG/ML VIAL IVP ONE (18:59)
[2019-07-26] MEDS ORDERED: METOCLOPRAMIDE 10 MG/2 ML VIAL IVP STA (19:00)
[2019-07-26] MEDS ORDERED: diphenhydrAMINE INJ 50 MG/ML VIAL IVP STA (19:01)
--- NOTE | 2019-07-26 19:01 | ED Physician Documentation ---
History of Present Illness - Stated complaint Stated Complaint: BLACK STOOL - Chief complaint Chief Complaint: Abd Pain - Additonal information Additional information: This is a 44-year-old female with history of type 1 diabetes, migraines, COPD, who presents with headache as well as dark stool, diarrhea, and some abdominal bloating. Patient states that she has had dark approaching black stool for the last several days, she has not noticed any marisela blood in it recently. She also has some generalized abdominal discomfort and bloating. She was seen for this and was prescribed Bentyl, but this is not seem to help. She has been nause ated, no vomiting today. She also has a headache which she states is similar to her typical migraine but more severe. It was gradual in onset, it is currently throbbing, and is severe. She also has assocaited photophobia. No focal weakness, numbness. No fever. Review of Systems Constitutional: denies: Fever Eyes: denies: Loss of vision Cardiac: denies: Chest pain / pressure Respiratory: denies: Dyspnea GI: reports: Abdominal Swelling, Nausea : denies: Dysuria Skin: denies: Rash Neurologic: reports: Headache. denies: Altered mental status PD PAST MEDICAL HISTORY - Past Medical History Cardiovascular: High cholesterol, Murmur Respiratory: COPD, Pneumonia, Shortness of breath Neuro: Headaches, Migraines, Peripheral neuropathy, Seizure disorder, Other Endocrine/Autoimmune: Type 1 diabetes, HyPOthyroidism GI: GERD, GI bleed, Ulcers, Other [employer]ANT: Other : Kidney stones, Other HEENT: Chronic vision loss, Chronic sinusitis Psych: Depression, Anxiety, Bipolar disorder, ADD/ADHD, Post traumatic stress disorder, Other Musculoskeletal: Osteoarthritis, Fibromyalgia, Fatigue, Chronic back pain Derm: None - Past Surgical History Past Surgical History: Yes General: Gastric surgery, Other Ortho: Rotator cuff repair, Other /[employer]ANT: section, Endometrial ablation, Tubal ligation - Present Medications Home Medications: Ambulatory Orders Medication Instructions Recorded Confirmed Insulin Lispro [Humalog] 20 - 25 units SQ DAILY 10/30/15 05/18/19 clonazePAM [Clonazepam] 1 mg PO TID PRN 10/30/15 05/18/19 Baclofen 10 mg PO QID PRN 06/03/16 05/18/19 Escitalopram Oxalate [Lexapro] 40 mg PO DAILY 05/22/18 05/18/19 Levothyroxine [Synthroid] 112 mcg PO QDAC 05/22/18 05/18/19 Simvastatin 20 mg PO QPM 05/22/18 05/18/19 Pantoprazole Sodium [Protonix] 20 mg PO DAILY 11/14/18 05/18/19 Butalb/Acetam/Caff 50/325/40 1 tab PO Q4H PRN 01/22/19 05/18/19 [Fioricet] Duloxetine HCl 60 mg PO DAILY 01/22/19 05/18/19 Oxycodone HCl 10 mg PO QID PRN 01/22/19 05/18/19 Promethazine [Phenergan] 25 mg PO Q6H PRN 01/22/19 05/18/19 Aspirin [Adult Aspirin] 81 mg PO DAILY 01/23/19 05/18/19 Pramipexole [Mirapex] 0.25 mg PO QID 01/23/19 05/18/19 Prazosin HCl 5 mg PO QPM 01/23/19 05/18/19 Trazodone HCl 300 mg PO QPM 01/23/19 05/18/19 Metoclopramide [Reglan] 10 mg PO ACHS #90 tablet 01/24/19 05/18/19 Hydrocodone/Acetaminophen [[place] 1 each PO TID PRN #15 tablet 04/05/19 05/18/19 10-325 Tablet] Tizanidine HCl 4 mg PO TID PRN #20 capsule 04/05/19 05/18/19 Amphetamine Sulfate 20 mg PO BID 05/18/19 05/18/19 Potassium Citrate [Urocit-K] 1,080 meq PO BID 05/18/19 05/18/19 SUMAtriptan succinate [Sumatriptan 100 mg PO DAILY PRN 05/18/19 05/18/19 Succinate] Selenium 200 mcg PO DAILY 05/18/19 05/18/19 Spironolactone 100 mg PO DAILY 05/18/19 05/18/19 Albuterol Sulf [Ventolin Hfa 1 - 2 puffs INH Q4HR PRN #1 inhaler 06/28/19 Inhaler] Benzonatate [Tessalon Perle] 100 mg PO TID PRN #25 capsule 06/28/19 Doxycycline Hyclate 100 mg PO BID #14 capsule 06/28/19 Hydrocodone/Acetaminophen [[place] 1 each PO Q6H PRN #15 tablet 06/28/19 5-325 Tablet] Dicyclomine [Bentyl] 20 mg PO QID PRN #15 capsule 07/20/19 Butalb/Acetaminophen/Caffeine 1 each PO BID PRN #10 tablet 07/26/19 [[id number] 50-325-40] - Allergies Allergies/Adverse Reactions: Allergies Allergy/AdvReac Type Severity Reaction Status Date / Time carisoprodol [From Soma] Allergy Unknown Verified 07/26/19 15:36 divalproex sodium Allergy Rash Verified 07/26/19 15:36 [From Depakote] gabapentin [From Neurontin] Allergy Edema Verified 07/26/19 15:36 lidocaine Allergy Unknown Verified 07/26/19 15:36 nitrofurantoin Allergy Rash Verified 07/26/19 15:36 macrocrystalline * [From Macrodantin] nortriptyline Allergy Unknown Verified 07/26/19 15:36 ondansetron [From Zofran] Allergy Hives Verified 07/26/19 15:36 ondansetron HCl * Allergy Hives Verified 07/26/19 15:36 [From Zofran (as hydrochloride)] pregabalin [From Lyrica] Allergy Headache Verified 07/26/19 15:36 - Social History Does the pt smoke?: Yes Smoking Status: Current every day smoker Does the pt drink ETOH?: No Does the pt have substance abuse?: No - Immunizations Immunizations are current?: Yes Immunizations: TDAP >10years/unknown - POLST Patient has POLST: No POLST Status: Full Code PD ED PE NORMAL - Vitals Vital signs reviewed: Yes - General General: Alert and oriented X 3, No acute distress - HEENT HEENT: Atraumatic, PERRL - Neck Neck: Supple, no meningeal sign - Cardiac Cardiac: RRR, No murmur - Respiratory Respiratory: No respiratory distress, Clear bilaterally - Abdomen Abdomen: Other (Soft, rotund, no significant tenderness to palpation in all 4 quadrants.) - Rectal Rectal: Other (Normal external perianal area. Small amount of brown stool in the vault, no blood, hemoccult negative.) - Derm Derm: Warm and dry - Extremities Extremities: No deformity - Neuro Neuro: Alert and oriented X 3, hammerer 2-12 intact, No motor deficit, No sensory deficit, Normal speech - Psych Psych: Normal mood, Normal affect Results - Vitals Vitals: Oxygen O2 Source Room air - EKG (time done) 19:26 Other comments: Other comments (Rate 88, rhythm sinus, there is slight less than [address] depression in V6, and questionable less than 0.[address] depression in V5 and 1, this is stable from a past EKG. There is no ST segment elevation. Poor R wave progression. No significant change from prior EKG.) - Labs Labs: Laboratory Tests 07/26/19 07/26/19 07/26/19 15:48 15:48 17:20 WBC 7.8 RBC 3.91 L Hgb 10.1 L Hct 32.7 L MCV 83.6 MCH 25.8 L MCHC 30.9 L RDW 17.2 H Plt Count 286 MPV 10.6 Neut # (Auto) 4.2 Lymph # (Auto) 2.6 [place] # (Auto) 0.4 Eos # (Auto) 0.6 Baso # (Auto) 0.1 Absolute Nucleated RBC 0.00 Nucleated RBC % 0.0 Sodium 139 Potassium 3.9 Chloride 102 Carbon Dioxide 28 Anion Gap 9.0 BUN 5 L Creatinine 0.8 Estimated GFR (MDRD) 77 L Glucose 121 H Calcium 9.2 Total Bilirubin < 0.2 L AST 29 ALT 33 Alkaline Phosphatase 103 Total Protein 7.5 Albumin 3.6 Globulin 3.9 Albumin/Globulin Ratio 0.9 L Lipase 20 L Urine Color YELLOW Urine Clarity CLEAR Urine pH 6.0 Ur Specific [place] <=1.005 Urine Protein NEGATIVE Urine Glucose (UA) NEGATIVE Urine Ketones NEGATIVE Urine Occult Blood NEGATIVE Urine Nitrite NEGATIVE Urine Bilirubin NEGATIVE Urine Urobilinogen 0.2 (NORMAL) Ur Leukocyte Esterase NEGATIVE Ur Microscopic Review NOT INDICATED Urine Culture Comments NOT INDICATED Urine HCG, Qual 07/26/19 17:20 WBC RBC Hgb Hct MCV MCH MCHC RDW Plt Count MPV Neut # (Auto) Lymph # (Auto) [place] # (Auto) Eos # (Auto) Baso # (Auto) Absolute Nucleated RBC Nucleated RBC % Sodium Potassium Chloride Carbon Dioxide Anion Gap BUN Creatinine Estimated GFR (MDRD) Glucose Calcium Total Bilirubin AST ALT Alkaline Phosphatase Total Protein Albumin Globulin Albumin/Globulin Ratio Lipase Urine Color Urine Clarity Urine pH Ur Specific [place] <=1.005 Urine Protein Urine Glucose (UA) Urine Ketones Urine Occult Blood Urine Nitrite Urine Bilirubin Urine Urobilinogen Ur Leukocyte Esterase Ur Microscopic Review Urine Culture Comments Urine HCG, Qual NEGATIVE PD MEDICAL DECISION MAKING - ED course Complexity details: considered differential (GI bleed, anemia, gastroenteritis, electrolyte abnormality, tension headache, migraine) ED course: Pt is very well appearing with unremarkable vital signs. Her stool is normal and guaiac negative on rectal exam, her hemoglobin is stable at her baseline, and her abdomen is very benign, no signs of acute abdomen. No signs of significant Gi bleed at this time. Labs unremarkable other than the stable anemia. Her headache is typical for her, with no red flags. Her neuro exam is normal. I discussed our work up, the need for close PCP follow up, and strict return precautions including lightheadedness, syncope, blood in her stool, worsening abdominal discomfort, or any other concerning symptoms. Pt agrees and was discharged home. Departure - Departure Disposition: 01 Home, Self Care Clinical Impression: Dark stools Headache Qualifiers: Headache type: unspecified Headache chronicity pattern: unspecified pattern Intractability: not intractable Qualified Code(s): R51 - Headache Condition: Good Instructions: ED Cephalgia Unspecified Follow-Up: Isatu Belle MD [Primary Care Provider] - Within 1 week Prescriptions: Butalb/Acetaminophen/Caffeine [Gnwdgm-[id number] 50-325-40] 1 each PO BID PRN #10 tablet PRN Reason: Headache Comments: Your stool did not have signs of blood in it today. Your labs appear stable, I do not see signs of an emergent/acute cause of your abdominal discomfort. Please stay hydrated, check your blood sugar often, and you may take Tylenol for your headache. Follow-up with your primary care provider. If you develop new or worsening symptoms please return to the emergency department. Discharge Date/Time: 07/26/19 20:23
[2019-07-26] MEDS ORDERED: BUTALB/ACETAM/CAFF 50/325/40MG TABLET PO STA (19:56)
[2019-07-26 20:14] VITALS: BP 108/66
== END 2019-07-26 20:23 | disposition home or self-care (01) ==
LOC: ED 15:27
DX: R19.5 Other fecal abnormalities (principal); R51 Headache; E10.42 Type 1 diabetes mellitus with diabetic polyneuropathy; F17.200 Nicotine dependence, unspecified, uncomplicated
CPT/HCPCS: 36415; 80053; 81003; 81025; 83690; 85025; 93005; 96361; 96374; 96375; 99284; 99285; A9270; J1200; J2765; 81001; 87086

== ENCOUNTER 2019-08-24 15:33 | Emergency (ER) | payer MEDICARE ==
[2019-08-24 15:57] VITALS: BP 122/61
--- NOTE | 2019-08-24 16:40 | XRAY Report ---
Reason: cough, shortness of breath Procedure Date: 08/24/2019 Accession Number: [id number] / [id number] Procedure: XR - Chest 2 View X-Ray CPT Code: 30262 FULL RESULT: EXAM: CHEST RADIOGRAPHY EXAM DATE: 08/24/2019 04:23 PM. CLINICAL HISTORY: Cough, shortness of breath and fever COMPARISON: CHEST 1 VIEW 08/20/2019 2:19 AM. TECHNIQUE: 2 views. FINDINGS: Lungs/Pleura: There has been interval development of bilateral patchy parenchymal opacities suspicious for pneumonia. This pattern is not typical for pulmonary edema. Pleural effusions are not present. Mediastinum: No evidence of cardiac enlargement. Other: Multiple bilateral probably healed rib fractures. IMPRESSION: 1. Interval development of diffuse multifocal patchy parenchymal consolidation most consistent with pneumonia. 2. No evidence of congestive heart failure. 3. Multiple bilateral healed rib fractures. RADIA
[2019-08-24] MEDS ORDERED: levoFLOXacin 250 MG TABLET PO STA (16:57)
[2019-08-24] MEDS ORDERED: HYDROcod/ACETAM 5/325 MG TABLET PO STA (16:57)
--- NOTE | 2019-08-24 16:58 | ED Physician Documentation ---
PD HPI DYSPNEA - Stated complaint Stated Complaint: SOA - Chief complaint Chief Complaint: Resp - History obtained from History obtained from: Patient - History of Present Illness Timing - onset: Other (44-year-old woman with history of heavy tobacco use presents with 3 days of a productive cough, shortness of breath. The cough is so bad that she has a headache from it. She had a fever of 102 yesterday. No sick contacts.) Review of Systems Ten Systems: 10 systems reviewed and negative Constitutional: reports: Fever, Chills, Fatigue Nose: reports: Rhinorrhea / runny nose Throat: denies: Sore throat Respiratory: reports: Dyspnea, Cough GI: denies: Abdominal Pain, Nausea, Vomiting PD PAST MEDICAL HISTORY - Past Medical History Cardiovascular: High cholesterol, Murmur Respiratory: COPD, Pneumonia, Shortness of breath Neuro: Headaches, Migraines, Peripheral neuropathy, Seizure disorder, Other Endocrine/Autoimmune: Type 1 diabetes, HyPOthyroidism GI: GERD, GI bleed, Ulcers, Other PLUG WIRER: Other : Kidney stones, Other HEENT: Chronic vision loss, Chronic sinusitis Psych: Depression, Anxiety, Bipolar disorder, ADD/ADHD, Post traumatic stress disorder, Other Musculoskeletal: Osteoarthritis, Fibromyalgia, Fatigue, Chronic back pain Derm: None - Past Surgical History Past Surgical History: Yes General: Gastric surgery, Other Ortho: Rotator cuff repair, Other /PLUG WIRER: section, Endometrial ablation, Tubal ligation - Present Medications Home Medications: Ambulatory Orders Medication Instructions Recorded Confirmed Insulin Lispro [Humalog] 20 - 25 units SQ DAILY 10/30/15 05/18/19 clonazePAM [Clonazepam] 1 mg PO TID PRN 10/30/15 05/18/19 Baclofen 10 mg PO QID PRN 06/03/16 05/18/19 Escitalopram Oxalate [Lexapro] 40 mg PO DAILY 05/22/18 05/18/19 Levothyroxine [Synthroid] 112 mcg PO QDAC 05/22/18 05/18/19 Simvastatin 20 mg PO QPM 05/22/18 05/18/19 Pantoprazole Sodium [Protonix] 20 mg PO DAILY 11/14/18 05/18/19 Butalb/Acetam/Caff 50/325/40 1 tab PO Q4H PRN 01/22/19 05/18/19 [Fioricet] Duloxetine HCl 60 mg PO DAILY 01/22/19 05/18/19 Oxycodone HCl 10 mg PO QID PRN 01/22/19 05/18/19 Promethazine [Phenergan] 25 mg PO Q6H PRN 01/22/19 05/18/19 Aspirin [Adult Aspirin] 81 mg PO DAILY 01/23/19 05/18/19 Pramipexole [Mirapex] 0.25 mg PO QID 01/23/19 05/18/19 Prazosin HCl 5 mg PO QPM 01/23/19 05/18/19 Trazodone HCl 300 mg PO QPM 01/23/19 05/18/19 Metoclopramide [Reglan] 10 mg PO ACHS #90 tablet 01/24/19 05/18/19 Hydrocodone/Acetaminophen [[place] 1 each PO TID PRN #15 tablet 04/05/19 05/18/19 10-325 Tablet] Tizanidine HCl 4 mg PO TID PRN #20 capsule 04/05/19 05/18/19 Amphetamine Sulfate 20 mg PO BID 05/18/19 05/18/19 Potassium Citrate [Urocit-K] 1,080 meq PO BID 05/18/19 05/18/19 SUMAtriptan succinate [Sumatriptan 100 mg PO DAILY PRN 05/18/19 05/18/19 Succinate] Selenium 200 mcg PO DAILY 05/18/19 05/18/19 Spironolactone 100 mg PO DAILY 05/18/19 05/18/19 Albuterol Sulf [Ventolin Hfa 1 - 2 puffs INH Q4HR PRN #1 inhaler 06/28/19 Inhaler] Benzonatate [Tessalon Perle] 100 mg PO TID PRN #25 capsule 06/28/19 Doxycycline Hyclate 100 mg PO BID #14 capsule 06/28/19 Hydrocodone/Acetaminophen [[place] 1 each PO Q6H PRN #15 tablet 06/28/19 5-325 Tablet] Dicyclomine [Bentyl] 20 mg PO QID PRN #15 capsule 07/20/19 Butalb/Acetaminophen/Caffeine 1 each PO BID PRN #10 tablet 07/26/19 [Fcnopm-Qvgyiqif-Wnes 50-325-40] Levofloxacin [Levaquin] 750 mg PO DAILY #6 tablet 08/24/19 - Allergies Allergies/Adverse Reactions: Allergies Allergy/AdvReac Type Severity Reaction Status Date / Time carisoprodol [From Soma] Allergy Unknown Verified 08/24/19 15:58 divalproex sodium Allergy Rash Verified 08/24/19 15:58 [From Depakote] gabapentin [From Neurontin] Allergy Edema Verified 08/24/19 15:58 lidocaine Allergy Unknown Verified 08/24/19 15:58 nitrofurantoin Allergy Rash Verified 08/24/19 15:58 macrocrystalline * [From Macrodantin] nortriptyline Allergy Unknown Verified 08/24/19 15:58 ondansetron [From Zofran] Allergy Hives Verified 08/24/19 15:58 ondansetron HCl * Allergy Hives Verified 08/24/19 15:58 [From Zofran (as hydrochloride)] pregabalin [From Lyrica] Allergy Headache Verified 08/24/19 15:58 - Social History Does the pt smoke?: Yes Smoking Status: Current every day smoker Does the pt drink ETOH?: No Does the pt have substance abuse?: No - Immunizations Immunizations are current?: Yes Immunizations: TDAP >10years/unknown - POLST Patient has POLST: No POLST Status: Full Code PD ED PE NORMAL - Vitals Vital signs reviewed: Yes - General General: Alert and oriented X 3, No acute distress - HEENT HEENT: PERRL, Ears normal - Neck Neck: Supple, no meningeal sign, No bony TTP, No adenopathy - Cardiac Cardiac: RRR, No murmur - Respiratory Respiratory: No respiratory distress, Clear bilaterally - Abdomen Abdomen: Non tender - Back Back: No CVA TTP, No spinal TTP - Derm Derm: Normal color, Warm and dry - Extremities Extremities: No edema, No calf tenderness / cord - Neuro Neuro: Alert and oriented X 3, Normal speech Results - Vitals Vitals: Vital Signs - 24 hr 08/24/19 15:49 Temperature 37.4 C Heart Rate 100 Respiratory 22 Rate Blood Pressure 122/61 O2 Saturation 92 Oxygen O2 Source Room air - Labs Labs: Laboratory Tests 08/24/19 08/24/19 08/24/19 15:50 15:50 17:09 WBC 15.2 H RBC 3.04 L Hgb 7.5 L Hct 25.4 L MCV 83.6 MCH 24.7 L MCHC 29.5 L RDW 18.2 H Plt Count 369 MPV 9.4 Manual Slide Review Indicated VBG pH VBG pCO2 VBG pO2 VBG HCO3 VBG Total CO2 VBG O2 Saturation VBG Base Excess Sodium Potassium Chloride Carbon Dioxide Anion Gap BUN Creatinine Estimated GFR (MDRD) Glucose Lactic Acid Calcium Total Bilirubin AST ALT Alkaline Phosphatase Total Protein Albumin Globulin Albumin/Globulin Ratio Lipase Influenza A (Rapid) Negative Influenza B (Rapid) Negative Group A Strep Rapid Negative 08/24/19 08/24/19 08/24/19 17:09 17:09 17:09 WBC RBC Hgb Hct MCV MCH MCHC RDW Plt Count MPV Manual Slide Review VBG pH 7.372 VBG pCO2 41.7 VBG pO2 27.7 VBG HCO3 23.7 VBG Total CO2 25.0 VBG O2 Saturation 51.6 L VBG Base Excess -1.5 Sodium 138 Potassium 3.2 L Chloride 104 Carbon Dioxide 24 Anion Gap 10.0 BUN 6 Creatinine 0.7 Estimated GFR (MDRD) 90 Glucose 170 H Lactic Acid 2.5 H Calcium 8.4 L Total Bilirubin < 0.2 L AST 47 H ALT 23 Alkaline Phosphatase 116 Total Protein 7.0 Albumin 3.1 L Globulin 3.9 Albumin/Globulin Ratio 0.8 L Lipase 17 L Influenza A (Rapid) Influenza B (Rapid) Group A Strep Rapid - Rads (name of study) 2 view chest x-ray Radiology: EMP read contemporaneously (Diffuse multifocal patchy pneumonia) PD MEDICAL DECISION MAKING - ED course ED course: 44-year-old woman with multiple comorbidities and heavy tobacco use presents with a productive cough and is found to have mild multifocal pneumonia on x-ray. She is treated with levofloxacin. She was encouraged to quit smoking. She is noted to have slowly worsening anemia in the setting of a history of ulcers. She is taking her PPI. Departure - Departure Disposition: 01 Home, Self Care Clinical Impression: History of Sophie-en-Y gastric bypass Iron deficiency anemia Qualifiers: Iron deficiency anemia type: chronic blood loss Qualified Code(s): D50.0 - Iron deficiency anemia secondary to blood loss (chronic) Pneumonia Qualifiers: Laterality: bilateral Lung location: unspecified part of lung Condition: Stable Record reviewed to determine appropriate education?: Yes Instructions: ED Pneumonia Adult Prescriptions: Levofloxacin [Levaquin] 750 mg PO DAILY #6 tablet Comments: Continue current medications. Follow-up with Dr. Belle on Wednesday. I recommend she consider repeat labs, your blood counts have been going down slowly. They are not at the threshold for transfusion at this juncture, but not too far off of it. Return for new or worsening symptoms.
[2019-08-24 17:18] LABS: BASOPHILS % (AUTO) 0.7 %; EOSINOPHILS % (AUTO) 7.1 %; HGB - HEMOGLOBIN 7.5 g/dL (12.0-16.0); MEAN CORPUSCULAR HEMOGLOBIN 24.7 pg (27.0-31.0); MEAN CORPUSCULAR HGB CONC 29.5 g/dL (32.0-36.0); MEAN CORPUSCULAR VOLUME 83.6 fL (81.0-99.0); MEAN PLATELET VOLUME 9.4 fL (7.9-10.8); MONOCYTES % (AUTO) 4.1 %; NEUTROPHILS % (AUTO) 80.4 %; PLT - PLATELET COUNT 369 10^3/uL (130-450); RED BLOOD COUNT 3.04 10^6/uL (4.20-5.40); RED CELL DISTRIBUTION WIDTH 18.2 % (12.0-15.0); WHITE BLOOD COUNT 15.2 x10^3/uL (4.8-10.8)
[2019-08-24 17:21] LABS: ABNORMAL LYMPHS % (MANUAL) 0 %; BAND NEUTROPHILS % (MANUAL) 0 %
[2019-08-24 17:37] LABS: VBG BASE EXCESS -1.5 mmol/L (-2 - +2); VBG PCO2 41.7 mmHg (41-51); VBG PH 7.372 (7.31-7.41); VBG PO2 27.7 mmHg (25-47)
[2019-08-24 17:41] LABS: ALBUMIN 3.1 g/dL (3.2-5.5); ALBUMIN/GLOBULIN RATIO 0.8 (1.0-2.2); ALKALINE PHOSPHATASE 116 IU/L (42-121); ALT ALANINE AMINOTRANSFERASE 23 IU/L (10-60); AST ASPARTATE AMINOTRANSFERASE 47 IU/L (10-42); BILIRUBIN,TOTAL < 0.2 mg/dL (0.2-1.0); BUN - BLOOD UREA NITROGEN 6 mg/dL (6-20); CALCIUM 8.4 mg/dL (8.5-10.3); CARBON DIOXIDE - CO2 24 mmol/L (21-32); CHLORIDE 104 mmol/L (101-111); CREATININE 0.7 mg/dL (0.4-1.0); GFR - MDRD 90 (>89); GLUCOSE 170 mg/dL (70-100); LIPASE 17 U/L (22-51); SODIUM 138 mmol/L (135-145)
[2019-08-24] MEDS ORDERED: ONDANSETRON ODT 4 MG TABLET TL STA (17:43)
[2019-08-24] MEDS ORDERED: MORPHINE IR 15 MG TABLET PO STA (17:43)
[2019-08-24] MEDS ORDERED: PROMETHAZINE 25 MG TABLET PO STA (17:50)
[2019-08-24 18:04] LABS: BASOPHILS # (MANUAL) 0.3 10^3/uL (0-0.1); BASOPHILS % (MANUAL) 2 %; EOSINOPHILS # (MANUAL) 0.9 10^3/uL (0-0.7); LYMPHOCYTES # (MANUAL) 1.8 10^3/uL (1.5-3.5); LYMPHOCYTES % (MANUAL) 12 %; MONOCYTES # (MANUAL) 0.6 10^3/uL (0.0-1.0)
[2019-08-24 18:09] LABS: DIFFERENTIAL COMMENT MANUAL DIFFERENTIAL; PLATELET ESTIMATE, MANUAL NORMAL (130-450,000) (NORMAL); PLATELET MORPHOLOGY NORMAL APPEARANCE (NORMAL)
== END 2019-08-24 18:05 | disposition home or self-care (01) ==
LOC: ED 15:33
DX: J18.9 Pneumonia, unspecified organism (principal); J44.9 Chronic obstructive pulmonary disease, unspecified; F17.200 Nicotine dependence, unspecified, uncomplicated; D50.0 Iron deficiency anemia secondary to blood loss (chronic); Z87.11 Personal history of peptic ulcer disease; E10.42 Type 1 diabetes mellitus with diabetic polyneuropathy; Z98.84 Bariatric surgery status
CPT/HCPCS: 36415; 71046; 80053; 82803; 83605; 83690; 85025; 87070; 87275; 87276; 87430; 99283; 99284; A9270; Q0162; Q0169

== ENCOUNTER 2019-09-15 00:51 | Outpatient (CLI) | payer MEDICARE | END 2019-09-15 00:52 | disposition critical access hospital (66) | LOC: EMS 00:51 | PROVIDERS: ATTEND Surgery | DX: S91.011A Laceration without foreign body, right ankle, initial encounter (principal); W01.0XXA Fall on same level from slipping, tripping and stumbling without subsequent striking against object, initial encounter; Y93.01 Activity, walking, marching and hiking; Y92.038 Other place in apartment as the place of occurrence of the external cause | CPT/HCPCS: A0425; A0427 ==

== ENCOUNTER 2019-09-15 01:10 | Inpatient (IN) | payer MEDICARE ==
[2019-09-15 01:27] LABS: BASOPHILS % (AUTO) 0.4 %; EOSINOPHILS # (AUTO) 0.2 10^3/uL (0.0-0.7); EOSINOPHILS % (AUTO) 2.2 %; HGB - HEMOGLOBIN 8.4 g/dL (12.0-16.0); LYMPHOCYTES # (AUTO) 1.4 10^3/uL (1.5-3.5); LYMPHOCYTES % (AUTO) 17.5 %; MEAN CORPUSCULAR HEMOGLOBIN 24.3 pg (27.0-31.0); MEAN CORPUSCULAR HGB CONC 29.7 g/dL (32.0-36.0); MEAN PLATELET VOLUME 10.1 fL (7.9-10.8); MONOCYTES # (AUTO) 0.6 10^3/uL (0.0-1.0); NEUTROPHILS % (AUTO) 72.2 %; PLT - PLATELET COUNT 280 10^3/uL (130-450); RED BLOOD COUNT 3.45 10^6/uL (4.20-5.40); RED CELL DISTRIBUTION WIDTH 17.3 % (12.0-15.0); WHITE BLOOD COUNT 8.2 x10^3/uL (4.8-10.8)
[2019-09-15 01:41] LABS: ALBUMIN 3.3 g/dL (3.2-5.5); BILIRUBIN,TOTAL 0.5 mg/dL (0.2-1.0); CALCIUM 8.5 mg/dL (8.5-10.3); CREATININE 0.7 mg/dL (0.4-1.0); TOTAL PROTEIN 6.5 g/dL (6.7-8.2)
[2019-09-15] MEDS ORDERED: KETOROLAC 30 MG/ML VIAL IVP STA (01:49)
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
--- NOTE | 2019-09-15 02:01 | XRAY Report ---
Reason: open fracture Procedure Date: 09/15/2019 Accession Number: [id number] / [id number] Procedure: XR - Tib/Fib RT CPT Code: FULL RESULT: EXAM: RIGHT TIBIA/FIBULA RADIOGRAPHY EXAM DATE: 09/15/2019 01:48 AM. CLINICAL HISTORY: Open fracture. COMPARISON: None. TECHNIQUE: 2 views. FINDINGS: Bones: Trimalleolar ankle fracture. Joints: Knee joint appears intact. Lateral dislocation and tilting of the talus at the ankle. Soft Tissues: Soft tissue swelling. IMPRESSION: 1. Trimalleolar ankle fracture with lateral dislocation and tilting of the talus. RADIA
[2019-09-15] MEDS ORDERED: ceFAZolin 1 GM VIAL IVP STA (02:27)
--- NOTE | 2019-09-15 03:25 | XRAY Report ---
Reason: recent pneumonia needs surgery Procedure Date: 09/15/2019 Accession Number: [id number] / [id number] Procedure: XR - Chest 1 View X-Ray CPT Code: 11397 FULL RESULT: EXAM: CHEST RADIOGRAPHY EXAM DATE: 09/15/2019 03:16 AM. CLINICAL HISTORY: Recent pneumonia needs surgery. COMPARISON: CHEST 2 VIEW 08/24/2019 4:11 PM. TECHNIQUE: 1 view. FINDINGS: Lungs/Pleura: Significant interval improvement in bilateral airspace disease. Small residual focus of the right base. No effusion or pneumothorax. Mediastinum: Within exam limitations, the cardiomediastinal contour is normal. Other: None. IMPRESSION: Small residual focus of airspace disease at the right base. RADIA
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
--- NOTE | 2019-09-15 03:54 | ANESTHESIA ---
Pre-Anesthesia VS, & Labs - Diagnosis Open R ankle tri-mal fx - Procedure ORIF open R ankle fx Vital Signs: Temp Pulse Resp BP Pulse Ox 36.5 C 84 14 122/89 H 98 09/15/19 01:13 09/15/19 02:50 09/15/19 02:50 09/15/19 02:50 09/15/19 02:50 Height 5 ft 7 in Weight (kg) 72.575 kg Body Mass Index 25.0 - NPO >8 hours - Is Patient ?: No (tubal ligation) - Lab Results Current Lab Results: Laboratory Tests 09/15/19 01:15: Ethyl Alcohol < 5.0 09/15/19 01:15: Sodium 138, Potassium 3.5, Chloride 101, Carbon Dioxide 28, Anion Gap 9.0, BUN 13, Creatinine 0.7, Estimated GFR (MDRD) 90, Glucose 206 H, Calcium 8.5, Total Bilirubin 0.5, AST 14, ALT 11, Alkaline Phosphatase 68, Total Protein 6.5 L, Albumin 3.3, Globulin 3.2, Albumin/Globulin Ratio 1.0, Lipase 17 L 09/15/19 01:15: WBC 8.2, RBC 3.45 L, Hgb 8.4 L, Hct 28.3 L, MCV 82.0, MCH 24.3 L , MCHC 29.7 L, RDW 17.3 H, Plt Count 280, MPV 10.1, Neut # (Auto) 6.0, Lymph # (Auto) 1.4 L, [place] # (Auto) 0.6, Eos # (Auto) 0.2, Baso # (Auto) 0.0, Absolute Nucleated RBC 0.00, Nucleated RBC % 0.0 Lab results reviewed: Yes Fish Bones: 09/15/19 01:15 09/15/19 01:15 Home Medications and Allergies Insulin Lispro [Humalog] 20 - 25 units SQ DAILY 10/30/15 clonazePAM [Clonazepam] 1 mg PO TID PRN 10/30/15 Baclofen 10 mg PO QID PRN 06/03/16 Escitalopram Oxalate [Lexapro] 40 mg PO DAILY 05/22/18 Levothyroxine [Synthroid] 112 mcg PO QDAC 05/22/18 Simvastatin 20 mg PO QPM 05/22/18 Pantoprazole Sodium [Protonix] 20 mg PO DAILY 11/14/18 Butalb/Acetam/Caff 50/325/40 [Fioricet] 1 tab PO Q4H PRN 01/22/19 Duloxetine HCl 60 mg PO DAILY 01/22/19 Oxycodone HCl 10 mg PO QID PRN 01/22/19 Promethazine [Phenergan] 25 mg PO Q6H PRN 01/22/19 Aspirin [Adult Aspirin] 81 mg PO DAILY 01/23/19 Pramipexole [Mirapex] 0.25 mg PO QID 01/23/19 Prazosin HCl 5 mg PO QPM 01/23/19 Trazodone HCl 300 mg PO QPM 01/23/19 Amphetamine Sulfate 20 mg PO BID 05/18/19 Potassium Citrate [Urocit-K] 1,080 meq PO BID 05/18/19 SUMAtriptan succinate [Sumatriptan Succinate] 100 mg PO DAILY PRN 05/18/19 Selenium 200 mcg PO DAILY 05/18/19 Spironolactone 100 mg PO DAILY 05/18/19 Allergies/Adverse Reactions: Allergies Allergy/AdvReac Type Severity Reaction Status Date / Time carisoprodol [From Soma] Allergy Unknown Verified 09/15/19 01:13 divalproex sodium Allergy Rash Verified 09/15/19 01:13 [From Depakote] gabapentin [From Neurontin] Allergy Edema Verified 09/15/19 01:13 lidocaine Allergy Unknown Verified 09/15/19 01:13 nitrofurantoin Allergy Rash Verified 09/15/19 01:13 macrocrystalline * [From Macrodantin] nortriptyline Allergy Unknown Verified 09/15/19 01:13 ondansetron [From Zofran] Allergy Hives Verified 09/15/19 01:13 ondansetron HCl * Allergy Hives Verified 09/15/19 01:13 [From Zofran (as hydrochloride)] pregabalin [From Lyrica] Allergy Headache Verified 09/15/19 01:13 Anes History & Medical History - Anesthetic History Anesthesia Complications: reports: No previous complications Family history of Anesthesia Complications: Denies Family history of Malignant Hyperthermia: Denies - Medical History Cardiovascular: reports: High cholesterol, Murmur Pulmonary: reports: COPD, Pneumonia, Shortness of breath Gastrointestinal: reports: GERD, GI bleed, Ulcers, Other Urinary: reports: Kidney stones, Other Neuro: reports: Headaches, Migraines, Peripheral neuropathy, Seizure disorder, Other Musculoskeletal: reports: Osteoarthritis, Fibromyalgia, Fatigue, Chronic back pain Endocrine/Autoimmune: reports: Type 1 diabetes, HyPOthyroidism Blood Disorders: reports: Anemia Skin: reports: None Smoking Status: Current every day smoker - Surgical History General: Gastric surgery, Colonoscopy, EGD, Other Gynecologic: section, Endometrial ablation, Tubal ligation Orthopedic: Rotator cuff repair, Other Exam General: Alert, Oriented x3, Cooperative, Mild distress Dental: Dentures full Upper Mouth Openin Fingerbreadth Neck Mobility: Normal Mallampati classification: II Thyromental Distance: 4-6 cm Respiratory: Lungs clear, Normal breath sounds, Other (recent pneumonia) Cardiovascular: Regular rate Neurological: Normal speech Mental/Cognitive Status: Alert/Oriented X3, Normal for patient Cognitive Status: Within normal limits Plan Anesthesia Type: General Consent for Procedure(s) Verified and Reviewed: Yes Code Status: Attempt Resuscitation ASA classification: 3-Severe systemic disease Is this case an emergency?: Yes
[2019-09-15] MEDS ORDERED: HYDROmorphone 1 MG/ML CARPUJECT IVP STA (04:22)
[2019-09-15] MEDS ORDERED: ONDANSETRON 4 MG/2 ML VIAL IVP STA (04:22)
--- NOTE | 2019-09-15 04:28 | PROVIDER PROGRESS NOTE ---
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20-5.40) 10^6/uL Hgb 8.4 L (12.0-16.0) g/dL Hct 28.3 L (37.0-47.0) % MCV 82.0 (81.0-99.0) fL MCH 24.3 L (27.0-31.0) pg MCHC 29.7 L (32.0-36.0) g/dL RDW 17.3 H (12.0-15.0) % Plt Count 280 (130-450) 10^3/uL MPV 10.1 (7.9-10.8) fL Neut # (Auto) 6.0 (1.5-6.6) 10^3/uL Lymph # (Auto) 1.4 L (1.5-3.5) 10^3/uL Otoe # (Auto) 0.6 (0.0-1.0) 10^3/uL Eos # (Auto) 0.2 (0.0-0.7) 10^3/uL Baso # (Auto) 0.0 (0.0-0.1) 10^3/uL Absolute Nucleated RBC 0.00 x10^3/uL Nucleated RBC % 0.0 /100WBC Sodium 138 (135-145) mmol/L Potassium 3.5 (3.5-5.0) mmol/L Chloride 101 (101-111) mmol/L Carbon Dioxide 28 (21-32) mmol/L Anion Gap 9.0 (6-13) BUN 13 (6-20) mg/dL Creatinine 0.7 (0.4-1.0) mg/dL Estimated GFR (MDRD) 90 (>89) Glucose 206 H (70-100) mg/dL Calcium 8.5 (8.5-10.3) mg/dL Total Bilirubin 0.5 (0.2-1.0) mg/dL AST 14 (10-42) IU/L ALT 11 (10-60) IU/L Alkaline Phosphatase 68 (42-121) IU/L Total Protein 6.5 L (6.7-8.2) g/dL Albumin 3.3 (3.2-5.5) g/dL Globulin 3.2 (2.1-4.2) g/dL Albumin/Globulin Ratio 1.0 (1.0-2.2) Lipase 17 L (22-51) U/L Ethyl Alcohol < 5.0 mg/dL - Diagnostic Imaging Diagnostic Imaging Comments: Right ankle fracture/dislocation - Other Results/Comments Other Results/Comments: EXAM: Right ankle- open ankle wound. Rotational deformity of ankle. Moves toes on command. Minimal sensation noted on light touch and safety pin bilaterally Assessment/Plan - Problem List (1) Open fracture ankle, trimalleolar Impression: PLAN: Admit to medicine to assist in postop management of her chronic medical problems. After medical clearnace, to OR for I&D of wound and ORIF of right ankle fracture. Risk and benefits of surgery explained. Questions answered. Consent signed. She is aware she has a much higher risk of complications due to her diabetes and her peripheral neuropathy. This could lead to multiple surgeries, including possibly leg amputation. FULL NOTE DICTATED Qualifiers: Encounter type: initial encounter Open fracture type: open type I or II Laterality: right Qualified Code(s): S82.851B - Displaced trimalleolar fracture of right lower leg, initial encounter for open fracture type I or II
[2019-09-15] MEDS ORDERED: DEXTROSE 5%-0.45% NACL 1,000 ML IV SCH (05:00)
[2019-09-15] MEDS ORDERED: BUPIVACAINE 0.5% PF 30 ML VIAL ONE (05:27)
[2019-09-15] MEDS ORDERED: BUPIVACAINE 0.5%-EPI 1:200000 PF 30 ML VIAL ONE (05:28)
--- NOTE | 2019-09-15 06:02 | HISTORY & PHYSICAL EXAMINATION ---
DATE OF SERVICE: 09/15/2019 Physician: Ronni Godfrey MD REFERRING PHYSICIAN: Dr. Ariel Rodriguez of the Emergency Room Department CHIEF COMPLAINT: "I broke my right ankle." HISTORY OF PRESENT ILLNESS: Patient is a 44-year-old juvenile-onset diabetic, currently on insulin p ump, who was in her usual state of health last evening. She apparently tripped and fell walking from her patio back into her home at about midnight. Noted pain in her ankle as well as a bleeding wound . Attempted to crawl into her bedroom. She was eventually helped by her daughter who noticed her op en ankle injury. She was transported then to the emergency room here at [facility] for an evaluation of her injury. Patient denied any prior fractures. No loss of consciousness or other injuries. The patient has known dense diabetic peripheral neuropathy. PAST MEDICAL HISTORY Chronic illnesses - has a history of: 1. Anemia. 2. Depression. 3. Recent history of pneumonia. 4. Also, has had history of a seizure disorder. 5. Opiate dependency. 6. Dense peripheral neuropathy from her diabetes. 7. Hypothyroidism. 8. History of gastric bypass surgery in the past as well. 9. Also of note, is she has had a history of smoking as well. CURRENT MEDICATIONS The patient is currently on: 1. Insulin pump. 2. Albuterol inhaler as needed. 3. Spironolactone 100 mg p.o. daily. 4. Simvastatin 20 mg p.o. daily. 6. Synthroid 112 mcg daily. 7. Clonazepam 1 mg p.o. t.i.d. ALLERGIES 1. ZOFRAN. 2. GABAPENTIN. 3. LIDOCAINE. 4. CARISOPRODOL. 5. DIVALPROEX. REVIEW OF SYSTEMS: Noncontributory. PHYSICAL EXAMINATION GENERAL: Revealed a thin, woman lying on a stretcher in moderate amount of distress. VITAL SIGNS: BP 123/87, pulse of 90, respirations of 14, afebrile. HEENT: Normocephalic. PERRLA. EOMs full. Vision and hearing grossly intact and symmetrical. Nose and throat clear. NECK: Supple, without tenderness or nodes. CHEST: Clear. CARDIOVASCULAR: Regular rate and rhythm. S1 and S2 heard without murmurs, rubs, or gallops. ABDOMEN: Soft, nontender, active bowel sounds. EXTREMITIES: Within normal limits except for the small, open wound on the medial aspect of her right ankle. She has a rotatory deformity of the ankle on inspection as well. The patient is able to mov e her toes. Sensation is quite diminished in both of her lower extremities. Capillary filling was a dequate. NEUROLOGIC: Patient alert and oriented x3. Sensory and motor exam is symmetrical, and as noted has diminished sensory in her lower extremities. X-RAY: Shows a displaced open right ankle fracture. On these films, it is difficult to know whether or not the posterior malleolar component is present or not. Clearly, has a bimalleolar component th ough. Chest x-ray showed no acute infiltrates or effusions noted. LABORATORIES: White count of 8200, hematocrit of 28.3. Chemistry: Sodium 138, potassium 3.5, chlor ine 101, carbon dioxide of 28, glucose of 206. ASSESSMENT 1. Open grade 2 right ankle fracture - has at least a bimalleolar component possibly involving the p osterior malleolar, though it is difficult to say on the admission, x-rays of the ankle. 2. Juvenile-onset diabetes - currently on insulin pump. 3. History of hypothyroidism. 4. History of smoking. 5. History of depression with suicidal ideation noted in the past. 6. History of recent pneumonia - has resolved. 7. Opiate dependency. 8. History of a seizure disorder. PLAN: The patient was seen by the medical service and will be supervised by the medical service on h er current admission. I have talked to patient about surgical management of her ankle fracture. We will take her to the operating room now for irrigation and debridement of her wound as well as an ope n reduction and internal fixation of her ankle fracture. Because of her peripheral neuropathy and di abetes, we will need to augment the standard fixation for her fracture in lieu of her medical conditi on. I did discuss with her the chance that because of her diabetes and peripheral neuropathy, there is a chance that she may require multiple surgeries because of what amounts to noncompliance because of her peripheral neuropathy and she weight bears too soon. Anticipate that she will need to be esse ntially a wheelchair ambulator for the next 3 months putting no weight on this right lower extremity. In other cases, however, she has an early weightbearing condition because of her lack of feeling, s he may go on and refracture of her ankle and could eventually lead to an amputation of the lower extr emity. She is aware of this possibility. With regard to jaki's surgery, though we will plan on w ashing out her wound and debriding any necrotic tissue or dysvascular tissue. We will then go ahead and fix her fracture. The risks and benefits of the surgery including infection, blood loss, nerve d amage, wound dehiscence, fracture nonunion, deep venous thromboses, etc., were explained to her. Her questions were answered. She wishes to proceed with surgery as planned. TD: 09/15/2019 04:26
[2019-09-15] MEDS ORDERED: BUPIVACAINE 0.25% PF 30 ML VIAL ONE (06:34)
[2019-09-15] MEDS ORDERED: BUPIVACAINE 0.25% PF 30 ML VIAL SUBQ ONE (06:39)
[2019-09-15] MEDS ORDERED: SODIUM CHLORIDE 0.9% 1,000 ML IV ONE (06:40)
[2019-09-15] MEDS ORDERED: DOCUSATE SODIUM 100 MG CAPSULE PO PRN (08:20)
[2019-09-15] MEDS ORDERED: LACTATED RINGERS 1,000 ML IV ONE (08:21)
[2019-09-15] MEDS ORDERED: DEXTROSE 5% 1,000 ML IV ONE (08:21)
--- NOTE | 2019-09-15 08:37 | OPERATIVE REPORT ---
Operative Report - General Admit Date: 09/15/19 Procedure Date: 09/15/19 Planned Procedure: I&D and ORIF of open right ankle fracture Pre-Op Diagnosis: Open right ankle fracture Procedure Performed: Incision and debridement of right ankle wound: open reduction and internal fixation of right ankle fracture Post Op Diagnosis: Same - Procedure Note Primary Surgeon: Sary Godfrey MD Anesthesia Provider: Shanta Boone CRNA Anesthesia Technique: General ET tube IV Fluids (mL): 800 Estimated Blood Loss (mL): 200 Complications: None
--- NOTE | 2019-09-15 09:12 | XRAY Report ---
Reason: ORIF RIGHT ANKLE Procedure Date: 09/15/2019 Accession Number: [id number] / [id number] Procedure: XR - Ankle 2 View RT CPT Code: FULL RESULT: EXAM: FLUOROSCOPIC GUIDANCE EXAM DATE: 09/15/2019 06:52 AM. CLINICAL HISTORY: ORIF RIGHT ANKLE. COMPARISON: None. FINDINGS: Fluoroscopic guidance for open reduction internal fixation of the distal fibula, medial malleolus and tibiofibular syndesmosis IMPRESSION: Fluoroscopic guidance provided for Dr. Godfrey. Total fluoroscopy time: None provided. Number of images: 2. RADIA
[2019-09-15] MEDS ORDERED: ALBUTEROL NEB 2.5 MG/3 ML INH PRN (09:13)
--- NOTE | 2019-09-15 09:14 | XRAY Report ---
Reason: ORIF RIGHT ANKLE Procedure Date: 09/15/2019 Accession Number: [id number] / [id number] Procedure: FL - OR C-Arm Procedure CPT Code: FULL RESULT: EXAM: FLUOROSCOPIC GUIDANCE EXAM DATE: 09/15/2019 06:52 AM. CLINICAL HISTORY: ORIF RIGHT ANKLE. Right ankle fracture COMPARISON: ANKLE 2 VIEW RT 09/15/2019 6:52 AM. FINDINGS IMPRESSION: Fluoroscopic guidance provided for ORIF right ankle. Total fluoroscopy time: 0.2 minutes. Number of images: 2. RADIA
[2019-09-15] MEDS ORDERED: PROMETHAZINE 25 MG TABLET PO PRN (09:19)
[2019-09-15 10:03] LABS: ABSOLUTE RETICS # AUTO 0.04 10^6/uL (0.020-0.110); RED BLOOD COUNT 3.04 10^6/uL (4.20-5.40)
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
[2019-09-15 10:21] LABS: HGB - HEMOGLOBIN 7.4 g/dL (12.0-16.0)
[2019-09-15 10:23] LABS: % IRON SATURATION 7 % (20-50); IRON 18 ug/dL (28-170); TOTAL IRON BINDING CAPACITY 253 ug/dL (250-450); TRANSFERRIN 181 mg/dL (192-382)
[2019-09-15] MEDS: ESCITALOPRAM 10 MG TABLET PO SCH (10:28)
[2019-09-15] MEDS: MORPHINE 2 MG/ML CARPUJECT IVP PRN ×3 (10:28→18:15)
[2019-09-15] MEDS: DULoxetine 30 MG CAPSULE PO SCH (10:29)
[2019-09-15] MEDS: METOCLOPRAMIDE 10 MG TABLET PO SCH ×3 (10:29→20:33)
[2019-09-15] MEDS: D5.45NS W/20 MEQ KCL 1,000 ML IV SCH (10:30)
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
[2019-09-15 10:37] LABS: FERRITIN 7.5 ng/mL (11.0-306.8)
[2019-09-15 10:41] LABS: HB2 TOTAL 7.6 g/dL; HEMOGLOBIN A1C 0.49 g/dL
[2019-09-15] MEDS: oxyCODONE 5 MG TABLET PO PRN ×3 (11:34→20:33)
[2019-09-15] MEDS ORDERED: FERRIC GLUCONATE 125 MG in SODIUM CHLORIDE 0.9% 100ML 100 ML IV ONE (12:00)
[2019-09-15] MEDS: PANTOPRAZOLE 40 MG VIAL IVP SCH (12:05)
[2019-09-15] MEDS: CYANOCOBALAMIN 500 MCG TABLET PO SCH (12:05)
[2019-09-15] MEDS: INSULIN ASPART 300 UNIT/3 ML PEN SUBQ SCH ×3 (12:45→20:34)
[2019-09-15] MEDS ORDERED: DICYCLOMINE 10 MG CAPSULE PO PRN (13:00)
[2019-09-15 13:46] LABS: BILIRUBIN,URINE NEGATIVE (NEGATIVE); GLUCOSE, URINE (UA) NEGATIVE (NEGATIVE); KETONES,URINE (UA) NEGATIVE (NEGATIVE); LEUKOCYTE ESTERASE, URINE SMALL (NEGATIVE); NITRITE,URINE POSITIVE (NEGATIVE); OCCULT BLOOD,URINE NEGATIVE (NEGATIVE); PROTEIN,URINE NEGATIVE (NEGATIVE); UROBILINOGEN,URINE 0.2 (NORMAL) E.U./dL (NORMAL)
[2019-09-15] MEDS: ceFAZolin 2 GM in SODIUM CHLORIDE 0.9% 100ML 100 ML IV SCH (13:46)
[2019-09-15 13:47] LABS: CLARITY,URINE HAZY (CLEAR)
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
[2019-09-15 13:55] LABS: BACTERIA,URINE Rare /HPF (None Seen); RBC,URINE 0-5 /HPF (0-5); SQUAMOUS EPITHELIAL CELL,UR FEW Squamous (<= Few)
[2019-09-15] MEDS: ASPIRIN 325 MG TABLET PO SCH (16:10)
[2019-09-15] MEDS: ACETAMINOPHEN 325 MG TABLET PO PRN ×2 (16:10→20:33)
[2019-09-15] MEDS: BUTALB/ACETAM/CAFF 50/325/40MG TABLET PO PRN ×2 (16:10→20:33)
[2019-09-15] MEDS: FERROUS SULFATE 325 MG TABLET PO SCH (16:11)
[2019-09-15] MEDS: SODIUM CHLORIDE FLUSH 0.9% 10 ML SYRINGE IVP SCH (16:35)
[2019-09-15] MEDS: NICOTINE 14 MG PATCH TOP SCH (18:15)
[2019-09-15] MEDS: BACLOFEN 10 MG TABLET PO PRN (18:15)
[2019-09-15] MEDS: clonazePAM 0.5 MG TABLET PO PRN (19:44)
[2019-09-15] MEDS: PRAZOSIN 1 MG CAPSULE PO SCH (20:33)
[2019-09-15] MEDS: traZODone 50 MG TABLET PO SCH (20:34)
[2019-09-15] MEDS ORDERED: DEXTROSE 10% 250 ML IV ONE (20:48)
[2019-09-15] MEDS ORDERED: DEXTROSE GEL 37.5 GM TUBE PO ONE (21:16)
[2019-09-15] MEDS ORDERED: DEXTROSE GEL 37.5 GM TUBE ONE (21:26)
[2019-09-16] MEDS: ceFAZolin 2 GM in SODIUM CHLORIDE 0.9% 100ML 100 ML IV SCH (00:38)
[2019-09-16] MEDS: SODIUM CHLORIDE FLUSH 0.9% 10 ML SYRINGE IVP SCH ×3 (00:38→05:52)
[2019-09-16] MEDS: oxyCODONE 5 MG TABLET PO PRN ×4 (00:59→19:05)
[2019-09-16 01:05] LABS: HGB - HEMOGLOBIN 8.9 g/dL (12.0-16.0)
[2019-09-16] MEDS ORDERED: DEXTROSE GEL 37.5 GM TUBE PO ONE (01:25)
[2019-09-16] MEDS: MORPHINE 2 MG/ML CARPUJECT IVP PRN ×2 (04:09→08:31)
[2019-09-16 05:46] LABS: BASOPHILS % (AUTO) 0.5 %; EOSINOPHILS # (AUTO) 0.8 10^3/uL (0.0-0.7); EOSINOPHILS % (AUTO) 9.5 %; HGB - HEMOGLOBIN 9.1 g/dL (12.0-16.0); LYMPHOCYTES # (AUTO) 2.2 10^3/uL (1.5-3.5); LYMPHOCYTES % (AUTO) 27.4 %; MEAN CORPUSCULAR HEMOGLOBIN 26.2 pg (27.0-31.0); MEAN CORPUSCULAR HGB CONC 31.2 g/dL (32.0-36.0); MEAN CORPUSCULAR VOLUME 84.1 fL (81.0-99.0); MEAN PLATELET VOLUME 10.2 fL (7.9-10.8); MONOCYTES # (AUTO) 0.8 10^3/uL (0.0-1.0); MONOCYTES % (AUTO) 9.8 %; NEUTROPHILS # (AUTO) 4.2 10^3/uL (1.5-6.6); NEUTROPHILS % (AUTO) 52.3 %; PLT - PLATELET COUNT 187 10^3/uL (130-450); RED BLOOD COUNT 3.47 10^6/uL (4.20-5.40); RED CELL DISTRIBUTION WIDTH 17.1 % (12.0-15.0); WHITE BLOOD COUNT 8.1 x10^3/uL (4.8-10.8)
[2019-09-16] MEDS: SODIUM CHLORIDE FLUSH 0.9% 10 ML SYRINGE IVP PRN ×2 (05:51→16:54)
[2019-09-16] MEDS: PANTOPRAZOLE 40 MG VIAL IVP SCH (05:51)
[2019-09-16] MEDS: METOCLOPRAMIDE 10 MG TABLET PO SCH ×4 (05:51→21:22)
[2019-09-16 05:53] LABS: CALCIUM 7.5 mg/dL (8.5-10.3); CREATININE 0.9 mg/dL (0.4-1.0); MAGNESIUM 2.1 mg/dL (1.7-2.8)
[2019-09-16] MEDS: LEVOTHYROXINE 112 MCG TABLET PO SCH (06:13)
[2019-09-16] MEDS: ACETAMINOPHEN 325 MG TABLET PO PRN ×3 (06:22→21:22)
[2019-09-16] MEDS: D5.45NS W/20 MEQ KCL 1,000 ML IV SCH (06:29)
[2019-09-16] MEDS: BACLOFEN 10 MG TABLET PO PRN ×2 (07:04→21:22)
[2019-09-16] MEDS: DULoxetine 30 MG CAPSULE PO SCH (08:29)
[2019-09-16] MEDS: FERROUS SULFATE 325 MG TABLET PO SCH ×2 (08:30→16:56)
[2019-09-16] MEDS: ASPIRIN 325 MG TABLET PO SCH ×2 (08:30→16:56)
[2019-09-16] MEDS: SENNA 8.6 MG TABLET PO PRN (08:30)
[2019-09-16] MEDS: CYANOCOBALAMIN 500 MCG TABLET PO SCH (08:30)
[2019-09-16] MEDS: OXYBUTYNIN 5MG TABLET PO SCH (08:30)
[2019-09-16] MEDS: ESCITALOPRAM 10 MG TABLET PO SCH (08:30)
[2019-09-16] MEDS: NICOTINE 14 MG PATCH TOP SCH (08:31)
[2019-09-16] MEDS: INSULIN ASPART 300 UNIT/3 ML PEN SUBQ SCH ×4 (08:32→21:40)
[2019-09-16] MEDS: DEXTROAMPHETAMINE PO SCH (08:33)
[2019-09-16] MEDS: AMPHETAMINE PO SCH (08:33)
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
--- NOTE | 2019-09-16 10:45 | PROVIDER PROGRESS NOTE ---
Subjective - Prog Note Date Prog Note Date: 09/16/19 Prog Note Time: 10:43 - Subjective Pt reports feeling: Improved (More mobile. In chair.) Objective - Vital Signs/Intake & Output Vital Signs: Vital Signs x48h Temp Pulse Resp BP Pulse Ox 09/16/19 08:05 36.2 C L 90 16 124/77 95 09/16/19 05:29 37.1 C 94 16 114/66 95 Intake & Output: Intake & Output 09/13/19 09/14/19 09/15/19 09/16/19 23:59 23:59 23:59 23:59 Intake Total 1880 655 Output Total 950 1550 Balance 930 -895 - Lab Results Fish Bones: 09/16/19 05:20 09/16/19 05:20 Other Labs: Lab Results x24hrs 09/16/19 09/16/19 09/16/19 Range/Units 05:20 05:20 05:20 WBC 8.1 (4.8-10.8) x10^3/uL RBC 3.47 L (4.20-5.40) 10^6/uL Hgb 9.1 L (12.0-16.0) g/dL Hct 29.2 L (37.0-47.0) % MCV 84.1 (81.0-99.0) fL MCH 26.2 L (27.0-31.0) pg MCHC 31.2 L (32.0-36.0) g/dL RDW 17.1 H (12.0-15.0) % Plt Count 187 (130-450) 10^3/uL MPV 10.2 (7.9-10.8) fL Neut # (Auto) 4.2 (1.5-6.6) 10^3/uL Lymph # (Auto) 2.2 (1.5-3.5) 10^3/uL [place] # (Auto) 0.8 (0.0-1.0) 10^3/uL Eos # (Auto) 0.8 H (0.0-0.7) 10^3/uL Baso # (Auto) 0.0 (0.0-0.1) 10^3/uL Absolute Nucleated RBC 0.00 x10^3/uL Nucleated RBC % 0.0 /100WBC Sodium 138 (135-145) mmol/L Potassium 4.0 (3.5-5.0) mmol/L Chloride 107 (101-111) mmol/L Carbon Dioxide 25 (21-32) mmol/L Anion Gap 6.0 (6-13) BUN 11 (6-20) mg/dL Creatinine 0.9 (0.4-1.0) mg/dL Estimated GFR (MDRD) 67 L (>89) Glucose 237 H (70-100) mg/dL Glycated Hemoglobin (4.6-6.2) % Estim Average Glucose (70-100) Calcium 7.5 L (8.5-10.3) mg/dL Magnesium 2.1 (1.7-2.8) mg/dL TSH 3.12 (0.34-5.60) uIU/mL Urine Color Urine Clarity (CLEAR) Urine pH (5.0-7.5) PH Ur Specific [place] (1.002-1.030) Urine Protein (NEGATIVE) mg/dL Urine Glucose (UA) (NEGATIVE) mg/dL Urine Ketones (NEGATIVE) mg/dL Urine Occult Blood (NEGATIVE) Urine Nitrite (NEGATIVE) Urine Bilirubin (NEGATIVE) Urine Urobilinogen (NORMAL) E.U./dL Ur Leukocyte Esterase (NEGATIVE) Urine RBC (0-5) /HPF Urine WBC (0-5) /HPF Ur Squamous Epith Cells (<= Few) Urine Bacteria (None Seen) /HPF Urine Culture Comments Blood Type Antibody Screen Crossmatch IS Only 09/16/19 09/15/19 09/15/19 Range/Units 00:59 13:28 13:12 WBC (4.8-10.8) x10^3/uL RBC (4.20-5.40) 10^6/uL Hgb 8.9 L 7.0 L* (12.0-16.0) g/dL Hct 28.3 L 24.0 L (37.0-47.0) % MCV (81.0-99.0) fL MCH (27.0-31.0) pg MCHC (32.0-36.0) g/dL RDW (12.0-15.0) % Plt Count (130-450) 10^3/uL MPV (7.9-10.8) fL Neut # (Auto) (1.5-6.6) 10^3/uL Lymph # (Auto) (1.5-3.5) 10^3/uL [place] # (Auto) (0.0-1.0) 10^3/uL Eos # (Auto) (0.0-0.7) 10^3/uL Baso # (Auto) (0.0-0.1) 10^3/uL Absolute Nucleated RBC x10^3/uL Nucleated RBC % /100WBC Sodium (135-145) mmol/L Potassium (3.5-5.0) mmol/L Chloride (101-111) mmol/L Carbon Dioxide (21-32) mmol/L Anion Gap (6-13) BUN (6-20) mg/dL Creatinine (0.4-1.0) mg/dL Estimated GFR (MDRD) (>89) Glucose (70-100) mg/dL Glycated Hemoglobin (4.6-6.2) % Estim Average Glucose (70-100) Calcium (8.5-10.3) mg/dL Magnesium (1.7-2.8) mg/dL TSH (0.34-5.60) uIU/mL Urine Color YELLOW Urine Clarity HAZY (CLEAR) Urine pH 6.0 (5.0-7.5) PH Ur Specific [place] 1.015 (1.002-1.030) Urine Protein NEGATIVE (NEGATIVE) mg/dL Urine Glucose (UA) NEGATIVE (NEGATIVE) mg/dL Urine Ketones NEGATIVE (NEGATIVE) mg/dL Urine Occult Blood NEGATIVE (NEGATIVE) Urine Nitrite POSITIVE H (NEGATIVE) Urine Bilirubin NEGATIVE (NEGATIVE) Urine Urobilinogen 0.2 (NORMAL) (NORMAL) E.U./dL Ur Leukocyte Esterase SMALL H (NEGATIVE) Urine RBC 0-5 (0-5) /HPF Urine WBC >25 H (0-5) /HPF Ur Squamous Epith Cells FEW Squamous (<= Few) Urine Bacteria Rare (None Seen) /HPF Urine Culture Comments INDICATED Blood Type Antibody Screen Crossmatch IS Only 09/15/19 09/15/19 Range/Units 09:47 09:47 WBC (4.8-10.8) x10^3/uL RBC (4.20-5.40) 10^6/uL Hgb (12.0-16.0) g/dL Hct (37.0-47.0) % MCV (81.0-99.0) fL MCH (27.0-31.0) pg MCHC (32.0-36.0) g/dL RDW (12.0-15.0) % Plt Count (130-450) 10^3/uL MPV (7.9-10.8) fL Neut # (Auto) (1.5-6.6) 10^3/uL Lymph # (Auto) (1.5-3.5) 10^3/uL [place] # (Auto) (0.0-1.0) 10^3/uL Eos # (Auto) (0.0-0.7) 10^3/uL Baso # (Auto) (0.0-0.1) 10^3/uL Absolute Nucleated RBC x10^3/uL Nucleated RBC % /100WBC Sodium (135-145) mmol/L Potassium (3.5-5.0) mmol/L Chloride (101-111) mmol/L Carbon Dioxide (21-32) mmol/L Anion Gap (6-13) BUN (6-20) mg/dL Creatinine (0.4-1.0) mg/dL Estimated GFR (MDRD) (>89) Glucose (70-100) mg/dL Glycated Hemoglobin 8.0 H (4.6-6.2) % Estim Average Glucose 183 H (70-100) Calcium (8.5-10.3) mg/dL Magnesium (1.7-2.8) mg/dL TSH (0.34-5.60) uIU/mL Urine Color Urine Clarity (CLEAR) Urine pH (5.0-7.5) PH Ur Specific [place] (1.002-1.030) Urine Protein (NEGATIVE) mg/dL Urine Glucose (UA) (NEGATIVE) mg/dL Urine Ketones (NEGATIVE) mg/dL Urine Occult Blood (NEGATIVE) Urine Nitrite (NEGATIVE) Urine Bilirubin (NEGATIVE) Urine Urobilinogen (NORMAL) E.U./dL Ur Leukocyte Esterase (NEGATIVE) Urine RBC (0-5) /HPF Urine WBC (0-5) /HPF Ur Squamous Epith Cells (<= Few) Urine Bacteria (None Seen) /HPF Urine Culture Comments Blood Type B POSITIVE Antibody Screen NEGATIVE Crossmatch IS Only See Detail - Other Results/Comments Other Results/Comments: EXAM: Splint ok. Moves toes well. Sensation unchanged. Good cap filling Sitting up in chair Sepsis Event Note (H) - Evaluation Current Stage of Sepsis: Ruled out Assessment/Plan - Problem List (1) Open fracture ankle, trimalleolar Impression: Satis post op PLAN: Mobilize as tolerated. NWB status for 3 months. Qualifiers: Encounter type: initial encounter Open fracture type: open type I or II Laterality: right Qualified Code(s): S82.851B - Displaced trimalleolar fracture of right lower leg, initial encounter for open fracture type I or II
[2019-09-16] MEDS: KETOROLAC 30 MG/ML VIAL IVP PRN ×2 (11:04→16:53)
[2019-09-16] MEDS ORDERED: FERROUS GLUCONATE 324 MG TABLET PO SCH (12:00)
[2019-09-16] MEDS: clonazePAM 0.5 MG TABLET PO PRN (13:35)
[2019-09-16] MEDS: BUTALB/ACETAM/CAFF 50/325/40MG TABLET PO PRN ×2 (15:00→19:05)
[2019-09-16] MEDS: PRAZOSIN 1 MG CAPSULE PO SCH (21:22)
[2019-09-16] MEDS: traZODone 50 MG TABLET PO SCH (21:22)
[2019-09-17] MEDS: oxyCODONE 5 MG TABLET PO PRN ×4 (01:15→19:54)
[2019-09-17] MEDS: KETOROLAC 30 MG/ML VIAL IVP PRN (01:15)
[2019-09-17] MEDS: SODIUM CHLORIDE FLUSH 0.9% 10 ML SYRINGE IVP SCH ×2 (01:16→06:29)
[2019-09-17] MEDS ORDERED: DEXTROSE GEL 37.5 GM TUBE PO ONE (01:22)
[2019-09-17 05:36] LABS: BASOPHILS % (AUTO) 0.7 %; EOSINOPHILS % (AUTO) 16.2 %; HGB - HEMOGLOBIN 8.7 g/dL (12.0-16.0); LYMPHOCYTES % (AUTO) 27.7 %; MEAN CORPUSCULAR HGB CONC 29.8 g/dL (32.0-36.0); MEAN CORPUSCULAR VOLUME 83.9 fL (81.0-99.0); MEAN PLATELET VOLUME 9.9 fL (7.9-10.8); MONOCYTES % (AUTO) 9.8 %; NEUTROPHILS % (AUTO) 45.2 %; PLT - PLATELET COUNT 172 10^3/uL (130-450); RED BLOOD COUNT 3.48 10^6/uL (4.20-5.40); RED CELL DISTRIBUTION WIDTH 17.3 % (12.0-15.0); WHITE BLOOD COUNT 7.5 x10^3/uL (4.8-10.8)
[2019-09-17 05:43] LABS: ABNORMAL LYMPHS % (MANUAL) 0 %; BAND NEUTROPHILS % (MANUAL) 0 %
[2019-09-17 05:52] LABS: CALCIUM 7.9 mg/dL (8.5-10.3); CREATININE 0.6 mg/dL (0.4-1.0)
[2019-09-17 06:05] LABS: EOSINOPHILS # (MANUAL) 0.6 10^3/uL (0-0.7); LYMPHOCYTES # (MANUAL) 2.8 10^3/uL (1.5-3.5); LYMPHOCYTES % (MANUAL) 37 %; MONOCYTES # (MANUAL) 0.7 10^3/uL (0.0-1.0)
[2019-09-17 06:06] LABS: DIFFERENTIAL COMMENT MANUAL DIFFERENTIAL; PLATELET ESTIMATE, MANUAL NORMAL (130-450,000) (NORMAL); PLATELET MORPHOLOGY NORMAL APPEARANCE (NORMAL); RBC MORPHOLOGY (MULTIPLE) 1+ HYPOCHROMASIA (NORMAL)
[2019-09-17] MEDS: PANTOPRAZOLE 40 MG VIAL IVP SCH (06:28)
[2019-09-17] MEDS: LEVOTHYROXINE 112 MCG TABLET PO SCH (06:28)
[2019-09-17] MEDS: METOCLOPRAMIDE 10 MG TABLET PO SCH ×4 (06:28→20:52)
[2019-09-17] MEDS: SODIUM CHLORIDE FLUSH 0.9% 10 ML SYRINGE IVP PRN (06:29)
[2019-09-17] MEDS: BACLOFEN 10 MG TABLET PO PRN ×3 (06:39→19:54)
[2019-09-17] MEDS: NICOTINE 14 MG PATCH TOP SCH (08:28)
[2019-09-17] MEDS: DULoxetine 30 MG CAPSULE PO SCH (08:29)
[2019-09-17] MEDS: ESCITALOPRAM 10 MG TABLET PO SCH (08:29)
[2019-09-17] MEDS: POLYETHYLENE GLYCOL 3350 17 GM PACKET PO SCH (08:29)
[2019-09-17] MEDS: FERROUS SULFATE 325 MG TABLET PO SCH ×2 (08:29→17:09)
[2019-09-17] MEDS: CYANOCOBALAMIN 500 MCG TABLET PO SCH (08:31)
[2019-09-17] MEDS: SENNA 8.6 MG TABLET PO PRN (08:31)
[2019-09-17] MEDS: OXYBUTYNIN 5MG TABLET PO SCH (08:31)
[2019-09-17] MEDS: DOCUSATE SODIUM 250 MG CAPSULE PO SCH (08:31)
[2019-09-17] MEDS: ASPIRIN 325 MG TABLET PO SCH ×2 (08:31→17:09)
[2019-09-17] MEDS: AMPHETAMINE PO SCH (10:43)
[2019-09-17] MEDS: DEXTROAMPHETAMINE PO SCH (10:43)
[2019-09-17] MEDS: INSULIN ASPART 300 UNIT/3 ML PEN SUBQ SCH ×4 (11:09→20:45)
[2019-09-17] MEDS: BUTALB/ACETAM/CAFF 50/325/40MG TABLET PO PRN ×4 (11:14→23:42)
[2019-09-17] MEDS: KETOROLAC 10 MG TABLET PO PRN ×2 (11:16→17:09)
[2019-09-17] MEDS: clonazePAM 0.5 MG TABLET PO PRN (13:41)
[2019-09-17] MEDS: ACETAMINOPHEN 325 MG TABLET PO PRN ×2 (15:53→19:54)
[2019-09-17] MEDS ORDERED: MAGNESIUM CITRATE 296 ML BOTTLE PO SCH (16:06)
--- NOTE | 2019-09-17 17:28 | PROVIDER PROGRESS NOTE ---
Assessment/Plan - Problem List (1) Hypoglycemia Assessment/Plan: She had an overnight glucose of 35 and needed a STAT glucose treatment. The previous night it was as low as 50 and also was STAT administered glu. She needs adjustment in her insulin pump and she cannot do this, and clinical informatics educator from the [facility] clinic will be consulted. [facility] providers are not here today because it is Wednesday. She must wait till tomorrow. (2) DM type 1 (diabetes mellitus, type 1) Qualifiers: Diabetes mellitus complication detail: with unspecified neuropathy Assessment/Plan: As in #1 (3) Open fracture ankle, trimalleolar Qualifiers: Encounter type: initial encounter Open fracture type: open type I or II Laterality: right Qualified Code(s): S82.851B - Displaced trimalleolar fracture of right lower leg, initial encounter for open fracture type I or II Assessment/Plan: 3 mos of NWB was ordered by tghe surgeon; wheelchair planned. PT to train her to do transfers. Family to get a wheelchair. 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 (6) Chronic pain Qualifiers: Chronic pain type: chronic pain syndrome Qualified Code(s): G89.4 - Chronic pain syndrome Assessment/Plan: As above (7) Hypothyroidism Assessment/Plan: She is on her home dose for this (8) Depression Qualifiers: Depression Type: major depressive disorder Assessment/Plan: She is on her home med for this (9) Seizure disorder Assessment/Plan: Continue to observe (10) Tobacco use Assessment/Plan: She did agree to use the Nicotine patch (11) Migraine headache Qualifiers: Migraine type: without aura Status migrainosus presence: with status migrainosus Intractability: not intractable Qualified Code(s): G43.001 - Migraine without aura, not intractable, with status migrainosus Assessment/Plan: Fioricet is what she uses for this (12) Dysuria Assessment/Plan: Will obtain U/A and culture if needed - Current Meds Current Meds: Current Medications Generic Name Dose Route Start Last Admin Trade Name Freq PRN Reason Stop Dose Admin Acetaminophen 650 - 975 mg 09/15/19 08:20 09/17/19 15:53 Tylenol PO 650 mg Q4HR PRN Administration PAIN Acetaminophen/Butalbital/Caffeine 1 tab 09/15/19 09:19 09/17/19 15:53 Fioricet PO 1 tab Q4H PRN Administration MIGRAINE Aspirin 325 mg 09/15/19 17:00 09/17/19 17:09 Suri PO 325 mg BIDWM SHELL Administration Baclofen 10 mg 09/15/19 09:19 09/17/19 13:41 Lioresal PO 10 mg QID PRN Administration Spasms Clonazepam 1 mg 09/15/19 09:37 09/17/19 13:41 Klonopin PO 1 mg TID PRN Administration Anxiety Cyanocobalamin 500 mcg 09/15/19 12:00 09/17/19 08:31 Vitamin B-12 PO 500 mcg DAILY SHELL Administration Docusate Sodium 100 mg 09/15/19 08:20 09/16/19 08:30 Colace 100mg Capsule PO 100 mg BID PRN Administration Constipation Docusate Sodium 250 - 500 mg 09/17/19 09:00 09/17/19 08:31 Colace 250mg Capsule PO 250 mg DAILY SHELL Administration Duloxetine HCl 120 mg 09/15/19 09:25 09/17/19 08:29 Cymbalta PO 120 mg DAILY SHELL Administration Escitalopram Oxalate 40 mg 09/15/19 09:25 09/17/19 08:29 Lexapro PO 40 mg DAILY SHELL Administration Ferrous Sulfate 325 mg 09/15/19 17:00 09/17/19 17:09 Feosol PO 325 mg BIDWM SHELL Administration Insulin Aspart 1 - 5 unit 09/15/19 12:00 09/17/19 17:13 Novolog SUBQ Not Given 0800,1200,1700,2100 [facility] Protocol Ketorolac Tromethamine 10 mg 09/17/19 11:00 09/17/19 17:09 Toradol PO 09/22/19 10:59 10 mg Q6HR PRN Administration PAIN Levothyroxine Sodium 112 mcg 09/16/19 07:00 09/17/19 06:28 Synthroid PO 112 mcg QDAC SHELL Administration Magnesium Citrate 180 - 240 ml 09/17/19 16:06 09/17/19 17:12 PO 09/17/19 18:00 180 mg ONCE SHELL Administration Metoclopramide HCl 10 mg 09/15/19 11:00 09/17/19 15:53 Reglan PO 10 mg ACHS SHELL Administration Nicotine 1 patch 09/15/19 18:04 09/17/19 08:28 Nicoderm TOP 1 patch DAILY SHELL Administration Oxybutynin Chloride 5 mg 09/16/19 09:00 09/17/19 08:31 Ditropan PO 5 mg DAILY SHELL Administration Oxycodone HCl 10 mg 09/16/19 13:47 09/17/19 13:41 Roxicodone PO 10 mg QID PRN Administration SEVERE PAIN (Dextroamphetamine/ 1 each 09/16/19 09:00 09/17/19 10:43 Amphetamine [ PO Not Given Adderall Xr 20 Mg DAILY SHELL Capsule] 20 Mg) Polyethylene Glycol 17 gm 09/17/19 09:00 09/17/19 08:29 Miralax PO 17 gm DAILY SHELL Administration Prazosin HCl 5 mg 09/15/19 21:00 09/16/19 21:22 Minipress PO 5 mg QPM SHELL Administration Senna 17.2 mg 09/15/19 08:20 09/17/19 08:31 Senokot PO 17.2 mg Q12H PRN Administration Constipation Trazodone HCl 200 mg 09/15/19 21:00 09/16/19 21:22 Desyrel PO 200 mg QPM SHELL Administration - Lab Result Fish Bone Diagrams: 09/18/19 05:28 09/18/19 05:28 - Additional Planning My Orders: My Active Orders 09/17/19 11:00 IV DC [IV Discontinuation] [RC] .ONCE Ketorolac [Toradol] 10 mg PO Q6HR PRN 09/17/19 21:00 Famotidine [Pepcid] 20 mg PO BID Subjective - Subjective Patient Reports: Resting Comfortably Objective Vital Signs: Vital Signs - 24 hr 09/16/19 09/16/19 09/17/19 20:00 20:20 01:00 Temperature 36.6 C 36.4 C L Heart Rate 87 Heart Rate [ Brachial] Heart Rate [ 82 77 Radial] Respiratory 18 16 16 Rate Blood Pressure 133/81 H 125/77 [Right Brachial artery] O2 Saturation 95 95 09/17/19 09/17/19 09/17/19 02:56 06:30 06:43 Temperature 36.3 C L 36.8 C Heart Rate Heart Rate [ 74 89 Brachial] Heart Rate [ Radial] Respiratory 16 16 Rate Blood Pressure 112/64 126/82 H [Right Brachial artery] O2 Saturation 94 96 09/17/19 09/17/19 11:29 15:48 Temperature 36.7 C 37 C Heart Rate Heart Rate [ 68 66 Brachial] Heart Rate [ Radial] Respiratory 18 16 Rate Blood Pressure 127/82 H 119/76 [Right Brachial artery] O2 Saturation 96 96 Oxygen O2 Source Room air I&O (Last 24 Hrs): Intake and Output Totals x24h 09/15/19 09/16/19 09/17/19 23:59 23:59 23:59 Intake Total 1880 3348 1700 Output Total 950 2200 Balance 930 1148 1700 General: Alert HEENT: Mucous membr. moist/pink Cardiovascular: Regular rate Respiratory: No respiratory distress Extremities: Other (R leg elevated) - Results Results: Laboratory Results WBC 7.5 x10^3/uL (4.8-10.8) 09/17/19 05:22 RBC 3.48 10^6/uL (4.20-5.40) L 09/17/19 05:22 Hgb 8.7 g/dL (12.0-16.0) L 09/17/19 05:22 Hct 29.2 % (37.0-47.0) L 09/17/19 05:22 MCV 83.9 fL (81.0-99.0) 09/17/19 05:22 MCH 25.0 pg (27.0-31.0) L 09/17/19 05:22 MCHC 29.8 g/dL (32.0-36.0) L 09/17/19 05:22 RDW 17.3 % (12.0-15.0) H 09/17/19 05:22 Plt Count 172 10^3/uL (130-450) 09/17/19 05:22 MPV 9.9 fL (7.9-10.8) 09/17/19 05:22 Reticulocyte % (Auto) 1.33 % (0.5-2.3) 09/15/19 09:47 Neut # (Auto) Not Reportable 09/17/19 05:22 Lymph # (Auto) Not Reportable 09/17/19 05:22 [place] # (Auto) Not Reportable 09/17/19 05:22 Eos # (Auto) Not Reportable 09/17/19 05:22 Baso # (Auto) Not Reportable 09/17/19 05:22 Absolute Nucleated RBC Not Reportable 09/17/19 05:22 Total Counted 100 09/17/19 05:22 Band Neuts % (Manual) 0 % (0-10) 09/17/19 05:22 Abnorm Lymph % (Manual) 0 % 09/17/19 05:22 Nucleated RBC % Not Reportable 09/17/19 05:22 Neutrophils # (Manual) 3.5 10^3/uL (1.5-6.6) 09/17/19 05:22 Lymphocytes # (Manual) 2.8 10^3/uL (1.5-3.5) 09/17/19 05:22 Monocytes # (Manual) 0.7 10^3/uL (0.0-1.0) 09/17/19 05:22 Eosinophils # (Manual) 0.6 10^3/uL (0-0.7) 09/17/19 05:22 Basophils # (Manual) 0.0 10^3/uL (0-0.1) 09/17/19 05:22 Differential Comment MANUAL DIFFERENTIAL 09/17/19 05:22 WBC Morphology NORMAL APPEARANCE (NORMAL) 09/17/19 05:22 Platelet Estimate NORMAL (130-450,000) (NORMAL) 09/17/19 05:22 Platelet Morphology NORMAL APPEARANCE (NORMAL) 09/17/19 05:22 RBC Morph Micro Appear 1+ HYPOCHROMASIA (NORMAL) 09/17/19 05:22 Absolute Retic 0.040 10^6/uL (0.020-0.110) 09/15/19 09:47 Sodium 140 mmol/L (135-145) 09/17/19 05:22 Potassium 4.0 mmol/L (3.5-5.0) 09/17/19 05:22 Chloride 107 mmol/L (101-111) 09/17/19 05:22 Carbon Dioxide 27 mmol/L (21-32) 09/17/19 05:22 Anion Gap 6.0 (6-13) 09/17/19 05:22 BUN 12 mg/dL (6-20) 09/17/19 05:22 Creatinine 0.6 mg/dL (0.4-1.0) 09/17/19 05:22 Estimated GFR (MDRD) 108 (>89) 09/17/19 05:22 Glucose 225 mg/dL (70-100) H 09/17/19 05:22 Glycated Hemoglobin 8.0 % (4.6-6.2) H 09/15/19 09:47 Estim Average Glucose 183 (70-100) H 09/15/19 09:47 Calcium 7.9 mg/dL (8.5-10.3) L 09/17/19 05:22 Magnesium 2.1 mg/dL (1.7-2.8) 09/16/19 05:20 Iron 18 ug/dL (28-170) L 09/15/19 09:47 TIBC 253 ug/dL (250-450) 09/15/19 09:47 % Saturation 7 % (20-50) L 09/15/19 09:47 Transferrin 181 mg/dL (192-382) L 09/15/19 09:47 Ferritin 7.5 ng/mL (11.0-306.8) L 09/15/19 09:47 Total Bilirubin 0.5 mg/dL (0.2-1.0) 09/15/19 01:15 AST 14 IU/L (10-42) 09/15/19 01:15 ALT 11 IU/L (10-60) 09/15/19 01:15 Alkaline Phosphatase 68 IU/L (42-121) 09/15/19 01:15 Lactate Dehydrogenase 134 IU/L (91-225) 09/15/19 09:47 Total Protein 6.5 g/dL (6.7-8.2) L 09/15/19 01:15 Albumin 3.3 g/dL (3.2-5.5) 09/15/19 01:15 Globulin 3.2 g/dL (2.1-4.2) 09/15/19 01:15 Albumin/Globulin Ratio 1.0 (1.0-2.2) 09/15/19 01:15 Lipase 17 U/L (22-51) L 09/15/19 01:15 Vitamin B12 151 pg/mL (180-914) L 09/15/19 09:47 TSH 3.12 uIU/mL (0.34-5.60) 09/16/19 05:20 Urine Color YELLOW 09/15/19 13:28 Urine Clarity HAZY (CLEAR) 09/15/19 13:28 Urine pH 6.0 PH (5.0-7.5) 09/15/19 13:28 Ur Specific [place] 1.015 (1.002-1.030) 09/15/19 13:28 Urine Protein NEGATIVE mg/dL (NEGATIVE) 09/15/19 13:28 Urine Glucose (UA) NEGATIVE mg/dL (NEGATIVE) 09/15/19 13:28 Urine Ketones NEGATIVE mg/dL (NEGATIVE) 09/15/19 13:28 Urine Occult Blood NEGATIVE (NEGATIVE) 09/15/19 13:28 Urine Nitrite POSITIVE (NEGATIVE) H 09/15/19 13:28 Urine Bilirubin NEGATIVE (NEGATIVE) 09/15/19 13:28 Urine Urobilinogen 0.2 (NORMAL) E.U./dL (NORMAL) 09/15/19 13:28 Ur Leukocyte Esterase SMALL (NEGATIVE) H 09/15/19 13:28 Urine RBC 0-5 /HPF (0-5) 09/15/19 13:28 Urine WBC >25 /HPF (0-5) H 09/15/19 13:28 Ur Squamous Epith Cells FEW Squamous (<= Few) 09/15/19 13:28 Urine Bacteria Rare /HPF (None Seen) 09/15/19 13:28 Urine Culture Comments INDICATED 09/15/19 13:28 Ethyl Alcohol < 5.0 mg/dL 09/15/19 01:15 Blood Type B POSITIVE 09/15/19 09:47 Antibody Screen NEGATIVE 09/15/19 09:47 Crossmatch IS Only See Detail 09/15/19 09:47 - Procedures Procedures: Procedures EXCISION OF STOMACH, ENDO, DIAGN (05/24/18) INSPECTION OF LOWER INTESTINAL TRACT, ENDO (05/24/18) TRANSFUSE NONAUT RED BLOOD CELLS IN PERIPH VEIN, PERC (05/24/18) Sepsis Event Note (H) - Evaluation Current Stage of Sepsis: Ruled out
[2019-09-17 18:56] LABS: BILIRUBIN,URINE NEGATIVE (NEGATIVE); GLUCOSE, URINE (UA) NEGATIVE (NEGATIVE); KETONES,URINE (UA) NEGATIVE (NEGATIVE); LEUKOCYTE ESTERASE, URINE NEGATIVE (NEGATIVE); NITRITE,URINE NEGATIVE (NEGATIVE); OCCULT BLOOD,URINE NEGATIVE (NEGATIVE); PROTEIN,URINE NEGATIVE (NEGATIVE); UROBILINOGEN,URINE 0.2 (NORMAL) E.U./dL (NORMAL)
[2019-09-17 18:57] LABS: CLARITY,URINE CLEAR (CLEAR)
[2019-09-17] MEDS: PRAZOSIN 1 MG CAPSULE PO SCH (20:52)
[2019-09-17] MEDS: traZODone 50 MG TABLET PO SCH (20:52)
[2019-09-17] MEDS: FAMOTIDINE 20 MG TABLET PO SCH (20:52)
[2019-09-17] MEDS ORDERED: OXYBUTYNIN 5MG TABLET PO STA (21:23)
[2019-09-18] MEDS: oxyCODONE 5 MG TABLET PO PRN (05:17)
[2019-09-18 05:52] LABS: BASOPHILS # (AUTO) 0.1 10^3/uL (0.0-0.1); BASOPHILS % (AUTO) 0.6 %; EOSINOPHILS # (AUTO) 1.2 10^3/uL (0.0-0.7); EOSINOPHILS % (AUTO) 15.4 %; LYMPHOCYTES # (AUTO) 1.9 10^3/uL (1.5-3.5); LYMPHOCYTES % (AUTO) 24.1 %; MEAN CORPUSCULAR HEMOGLOBIN 25.1 pg (27.0-31.0); MEAN CORPUSCULAR HGB CONC 29.6 g/dL (32.0-36.0); MEAN CORPUSCULAR VOLUME 84.9 fL (81.0-99.0); MEAN PLATELET VOLUME 10.2 fL (7.9-10.8); MONOCYTES # (AUTO) 0.6 10^3/uL (0.0-1.0); MONOCYTES % (AUTO) 7.1 %; NEUTROPHILS # (AUTO) 4.2 10^3/uL (1.5-6.6); NEUTROPHILS % (AUTO) 52.4 %; PLT - PLATELET COUNT 177 10^3/uL (130-450); RED BLOOD COUNT 3.58 10^6/uL (4.20-5.40); RED CELL DISTRIBUTION WIDTH 17.6 % (12.0-15.0)
[2019-09-18 06:00] LABS: CALCIUM 8.1 mg/dL (8.5-10.3); CREATININE 0.7 mg/dL (0.4-1.0)
[2019-09-18] MEDS: clonazePAM 0.5 MG TABLET PO PRN (06:32)
[2019-09-18] MEDS: LEVOTHYROXINE 112 MCG TABLET PO SCH (06:33)
[2019-09-18] MEDS: BUTALB/ACETAM/CAFF 50/325/40MG TABLET PO PRN ×2 (06:33→11:08)
[2019-09-18] MEDS: METOCLOPRAMIDE 10 MG TABLET PO SCH ×2 (06:33→11:09)
[2019-09-18] MEDS: POLYETHYLENE GLYCOL 3350 17 GM PACKET PO SCH (08:32)
[2019-09-18] MEDS: ESCITALOPRAM 10 MG TABLET PO SCH (08:33)
[2019-09-18] MEDS: DULoxetine 30 MG CAPSULE PO SCH (08:33)
[2019-09-18] MEDS: DOCUSATE SODIUM 250 MG CAPSULE PO SCH (08:33)
[2019-09-18] MEDS: NICOTINE 14 MG PATCH TOP SCH (08:33)
[2019-09-18] MEDS: CYANOCOBALAMIN 500 MCG TABLET PO SCH (08:34)
[2019-09-18] MEDS: FAMOTIDINE 20 MG TABLET PO SCH (08:34)
[2019-09-18] MEDS: OXYBUTYNIN 5MG TABLET PO SCH (08:34)
[2019-09-18] MEDS: FERROUS SULFATE 325 MG TABLET PO SCH (08:34)
[2019-09-18] MEDS: SENNA 8.6 MG TABLET PO PRN (08:34)
[2019-09-18] MEDS: KETOROLAC 10 MG TABLET PO PRN ×2 (08:35→13:36)
[2019-09-18] MEDS: AMPHETAMINE PO SCH (08:35)
[2019-09-18] MEDS: ASPIRIN 325 MG TABLET PO SCH (08:35)
[2019-09-18] MEDS: DEXTROAMPHETAMINE PO SCH (08:35)
[2019-09-18] MEDS: INSULIN ASPART 300 UNIT/3 ML PEN SUBQ SCH (08:36)
--- NOTE | 2019-09-18 10:56 | PROVIDER PROGRESS NOTE ---
Subjective - Prog Note Date Prog Note Date: 09/18/19 Prog Note Time: 10:53 - Subjective Pt reports feeling: Improved Objective - Vital Signs/Intake & Output Vital Signs: Vital Signs x48h Temp Pulse Resp BP Pulse Ox 09/18/19 08:16 36.9 C 69 21 120/64 94 Intake & Output: Intake & Output 09/15/19 09/16/19 09/17/19 09/18/19 23:59 23:59 23:59 23:59 Intake Total 1880 3348 2440 540 Output Total 950 2200 300 500 Balance 930 1148 2140 40 - Lab Results Fish Bones: 09/18/19 05:28 09/18/19 05:28 Other Labs: Lab Results x24hrs 09/18/19 09/18/19 09/17/19 Range/Units 05:28 05:28 18:40 WBC 8.0 (4.8-10.8) x10^3/uL RBC 3.58 L (4.20-5.40) 10^6/uL Hgb 9.0 L (12.0-16.0) g/dL Hct 30.4 L (37.0-47.0) % MCV 84.9 (81.0-99.0) fL MCH 25.1 L (27.0-31.0) pg MCHC 29.6 L (32.0-36.0) g/dL RDW 17.6 H (12.0-15.0) % Plt Count 177 (130-450) 10^3/uL MPV 10.2 (7.9-10.8) fL Neut # (Auto) 4.2 (1.5-6.6) 10^3/uL Lymph # (Auto) 1.9 (1.5-3.5) 10^3/uL [place] # (Auto) 0.6 (0.0-1.0) 10^3/uL Eos # (Auto) 1.2 H (0.0-0.7) 10^3/uL Baso # (Auto) 0.1 (0.0-0.1) 10^3/uL Absolute Nucleated RBC 0.00 x10^3/uL Nucleated RBC % 0.0 /100WBC Sodium 142 (135-145) mmol/L Potassium 4.8 (3.5-5.0) mmol/L Chloride 108 (101-111) mmol/L Carbon Dioxide 27 (21-32) mmol/L Anion Gap 7.0 (6-13) BUN 17 (6-20) mg/dL Creatinine 0.7 (0.4-1.0) mg/dL Estimated GFR (MDRD) 90 (>89) Glucose 193 H (70-100) mg/dL Calcium 8.1 L (8.5-10.3) mg/dL Urine Color LT. YELLOW Urine Clarity CLEAR (CLEAR) Urine pH 5.0 (5.0-7.5) PH Ur Specific [place] <=1.005 (1.002-1.030) Urine Protein NEGATIVE (NEGATIVE) mg/dL Urine Glucose (UA) NEGATIVE (NEGATIVE) mg/dL Urine Ketones NEGATIVE (NEGATIVE) mg/dL Urine Occult Blood NEGATIVE (NEGATIVE) Urine Nitrite NEGATIVE (NEGATIVE) Urine Bilirubin NEGATIVE (NEGATIVE) Urine Urobilinogen 0.2 (NORMAL) (NORMAL) E.U./dL Ur Leukocyte Esterase NEGATIVE (NEGATIVE) Ur Microscopic Review NOT INDICATED Urine Culture Comments NOT INDICATED - Other Results/Comments Other Results/Comments: EXAM: Splint ok. Able to do pivot transfers into chair from bed - NWB on right N/V ok distally Sepsis Event Note (H) - Evaluation Current Stage of Sepsis: Ruled out Assessment/Plan - Problem List (1) Open fracture ankle, trimalleolar Impression: Satis post op PLAN: Wheelchair ambulation - NWB on right x 3 months. Follwup in 2 weeks for OOS exam, kailee/stitches out, new XR. Qualifiers: Encounter type: initial encounter Open fracture type: open type I or II Laterality: right Qualified Code(s): S82.851B - Displaced trimalleolar fracture of right lower leg, initial encounter for open fracture type I or II
[2019-09-18] MEDS ORDERED: [UNRECOGNIZED DRUG - OTHER] SUBQ SCH (11:00)
--- NOTE | 2019-09-18 11:33 | Discharge Plan ---
Discharge Plan Problem Reviewed?: Yes Disposition: Home Health Service Condition: Stable Prescriptions: Ketorolac [Toradol] 10 mg PO Q6HR PRN #15 tablet PRN Reason: Pain Aspirin [Suri] 325 mg PO BIDWM #60 tablet Cyanocobalamin (Vitamin B-12) [Vitamin B-12] 1,000 mcg PO DAILY #30 tablet.er Ferrous Gluconate 240 mg PO DAILY #30 tablet Nicotine 14 mg Patch [Nicoderm] 1 patch TOP DAILY #14 patch Diet: Diabetic Activity Restrictions: No weight bearing for 3 months Shower Restrictions: No Driving Restrictions: Yes Assistance Devices: Wheelchair, Other (Grab bars in apartment are needed) Weight Bearing: No Weight Health Concerns: Admitted with a complex ankle fracture, needed orthopedic surgery. Diabetes treatment needed slight adjustments. Significant anemia was found and new supplements ordered. Plan of Treatment: Orthopedic orders are for 3 months of non-weight bearing, and to use a wheelchair. See the Orthopedic doctor in follow-up in the Orthopedic clinic in 2 weeks (call [phone] for appointment). Bring this form with you to doctor's appointme nts. The Orthopedic doctor wants you to take 2 aspirin daily to prevent a blood clot from being less mobile. Your Diabetic management should continue with your manpower development specialist. You needed an adjustment in the Insulin pump settings due to very low glucoses of 30's-50's. The settings are: from 2479-8650 0.32U/hr, from 8703-9302 1.1U/hr, from 3928-5739 1.0U/hr, and from 5762-0037 0.9U/hr. Resume your pre-hospital medications. There is a new prescriptions for your severe anemia. Home Health has been requested for you. You should see your PCP in follow-up, or for any further questions and for refills. Care Goals: Safe management of the ankle fracture, to recover. Continue Diabetic management. Assessment: The patient understands. Follow-Up Care: Home Health - RN, Home Health - PT, Home Health - OT No Smoking: If you smoke, Please STOP! Call for help. Follow-up with: Ronni Godfrey MD [Provider Admit Priv/Credential] -
[2019-09-18 12:35] VITALS: BP 134/80
[2019-09-18 13:53] LABS: BILIRUBIN,URINE NEGATIVE (NEGATIVE); GLUCOSE, URINE (UA) NEGATIVE (NEGATIVE); KETONES,URINE (UA) NEGATIVE (NEGATIVE); LEUKOCYTE ESTERASE, URINE NEGATIVE (NEGATIVE); NITRITE,URINE POSITIVE (NEGATIVE); OCCULT BLOOD,URINE NEGATIVE (NEGATIVE); PH,URINE 6.5 PH (5.0-7.5); PROTEIN,URINE NEGATIVE (NEGATIVE); UROBILINOGEN,URINE 0.2 (NORMAL) E.U./dL (NORMAL)
[2019-09-18 13:59] LABS: CLARITY,URINE SL. CLOUDY (CLEAR)
[2019-09-18 14:12] LABS: BACTERIA,URINE Moderate /HPF (None Seen); RBC,URINE None Seen /HPF (0-5); SQUAMOUS EPITHELIAL CELL,UR FEW Squamous (<= Few)
[2019-09-18] MEDS ORDERED: CIPROFLOXACIN 250 MG TABLET PO SCH (15:06)
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
[2019-09-19] MEDS ORDERED: [UNRECOGNIZED DRUG - OTHER] PO SCH (09:00)
== END 2019-09-18 14:55 | disposition home health service (06) | DRG 493 ==
LOC: EDUNIT# → ED 01:10 → MS2 03:50
PROVIDERS: ADMIT Orthopaedic Surgery; ATTEND Nurse Practitioner Gerontology
PROC: 0QSG04Z Reposition Right Tibia with Internal Fixation Device, Open Approach (ICD-10-PCS; 2019-09-15)
PROC: 30233N1 Transfusion of Nonautologous Red Blood Cells into Peripheral Vein, Percutaneous Approach (ICD-10-PCS; 2019-09-15)
PROC: 0QSJ04Z Reposition Right Fibula with Internal Fixation Device, Open Approach (ICD-10-PCS; principal; 2019-09-15 06:00)
DX: S82.851B Displaced trimalleolar fracture of right lower leg, initial encounter for open fracture type I or II (principal); W18.30XA Fall on same level, unspecified, initial encounter; N39.0 Urinary tract infection, site not specified; F11.20 Opioid dependence, uncomplicated; D50.9 Iron deficiency anemia, unspecified; F17.200 Nicotine dependence, unspecified, uncomplicated; W01.0XXA Fall on same level from slipping, tripping and stumbling without subsequent striking against object, initial encounter; Y93.01 Activity, walking, marching and hiking; Y92.007 Garden or yard of unspecified non-institutional (private) residence as the place of occurrence of the external cause; E10.42 Type 1 diabetes mellitus with diabetic polyneuropathy; E10.649 Type 1 diabetes mellitus with hypoglycemia without coma; B96.1 Klebsiella pneumoniae [K. pneumoniae] as the cause of diseases classified elsewhere; E03.9 Hypothyroidism, unspecified; F31.9 Bipolar disorder, unspecified; G40.909 Epilepsy, unspecified, not intractable, without status epilepticus; F17.210 Nicotine dependence, cigarettes, uncomplicated; J44.9 Chronic obstructive pulmonary disease, unspecified; G89.29 Other chronic pain; G43.909 Migraine, unspecified, not intractable, without status migrainosus; F90.1 Attention-deficit hyperactivity disorder, predominantly hyperactive type; K21.9 Gastro-esophageal reflux disease without esophagitis; F43.10 Post-traumatic stress disorder, unspecified; E78.00 Pure hypercholesterolemia, unspecified; R01.1 Cardiac murmur, unspecified; M19.90 Unspecified osteoarthritis, unspecified site; M79.7 Fibromyalgia; J32.9 Chronic sinusitis, unspecified; R53.83 Other fatigue; M54.9 Dorsalgia, unspecified; H54.7 Unspecified visual loss; E53.8 Deficiency of other specified B group vitamins; R27.0 Ataxia, unspecified; M25.512 Pain in left shoulder; M54.2 Cervicalgia; M79.672 Pain in left foot; G58.8 Other specified mononeuropathies; F41.9 Anxiety disorder, unspecified; Z96.41 Presence of insulin pump (external) (internal); Z66 Do not resuscitate; Z79.51 Long term (current) use of inhaled steroids; Z79.4 Long term (current) use of insulin; Z79.82 Long term (current) use of aspirin; Z98.84 Bariatric surgery status; Z87.820 Personal history of traumatic brain injury; Z87.01 Personal history of pneumonia (recurrent); Z87.440 Personal history of urinary (tract) infections; Z87.11 Personal history of peptic ulcer disease; Z91.81 History of falling
CPT/HCPCS: 36415; 71045; 73590; 73600; 80048; 80053; 81001; 81003; 82607; 82728; 83036; 83540; 83615; 83690; 83735; 84443; 84466; 85014; 85018; 85025; 85045; 86850; 86900; 86901; 86920; 87077; 87086; 87181; 93005; 96374; 96375; 97110; 97162; 97166; 97530; 99284; 99285; A9270; J1170; J2916; J3490; J7120; P9016; Q0169; 80320

== ENCOUNTER 2019-09-19 12:26 | Outpatient (CLI) | payer MEDICARE | END 2019-09-19 12:27 | disposition critical access hospital (66) | LOC: EMS 12:26 | PROVIDERS: ATTEND Surgery | DX: R41.82 Altered mental status, unspecified (principal); R73.09 Other abnormal glucose | CPT/HCPCS: A0425; A0429 ==

== ENCOUNTER 2019-09-19 12:46 | Emergency (ER) | payer MEDICARE ==
--- NOTE | 2019-09-19 13:16 | ED Physician Documentation ---
History of Present Illness - Stated complaint Stated Complaint: ELEVATED BS - Chief complaint Chief Complaint: Neuro - Additonal information Additional information: This is a 44-year-old Female with a history of diabetes and a recent open ankle fracture, who was released from the hospital this morning, who presents with somnolence and high blood sugar. Patient states that her blood sugar was reading at about 500, she was found to be somewhat lethargic and somnolent, so EMS was called and brought her here. Currently she states only thing that hurts is her ankle, she denies any chest pain, abdominal pain, vomiting. She is on narcotic pain medication. She has an insulin pump, it sounds like her blood sugar was reasonably controlled at the time of her discharge. No fever. 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: Other : Kidney stones, Other HEENT: Chronic vision loss, Chronic sinusitis Psych: Depression, Anxiety, Bipolar disorder, ADD/ADHD, Post traumatic stress disorder, Other Musculoskeletal: Osteoarthritis, Fibromyalgia, Fatigue, Chronic back pain Derm: None - Past Surgical History Past Surgical History: Yes General: Gastric surgery, Other Ortho: Rotator cuff repair, Other /VEGETABLE WORKER: section, Endometrial ablation, Tubal ligation - Present Medications Home Medications: Ambulatory Orders Medication Instructions Recorded Confirmed Insulin Lispro [Humalog] 20 - 25 units SQ DAILY 10/30/15 09/15/19 Baclofen 10 mg PO QID PRN 06/03/16 09/15/19 Escitalopram Oxalate [Lexapro] 40 mg PO DAILY 05/22/18 09/15/19 Simvastatin 20 mg PO QPM 05/22/18 09/15/19 Butalb/Acetam/Caff 50/325/40 1 tab PO Q4H PRN 01/22/19 09/15/19 [Fioricet] Oxycodone HCl 10 mg PO QID 01/22/19 09/15/19 Promethazine [Phenergan] 25 mg PO Q6H PRN 01/22/19 09/15/19 Aspirin [Adult Aspirin] 81 mg PO DAILY 01/23/19 05/18/19 Prazosin HCl 5 mg PO QPM 01/23/19 09/15/19 Trazodone HCl 200 mg PO QPM 01/23/19 09/15/19 Metoclopramide [Reglan] 10 mg PO ACHS #90 tablet 01/24/19 09/15/19 Albuterol Sulf [Ventolin Hfa 1 - 2 puffs INH Q4HR PRN #1 inhaler 06/28/19 09/15/19 Inhaler] Dextroamphetamine/Amphetamine 20 mg PO DAILY 09/15/19 09/15/19 [Adderall Xr 20 mg Capsule] Dicyclomine HCl 20 mg PO QID PRN 09/15/19 09/15/19 Duloxetine HCl [Cymbalta] 120 mg PO DAILY 09/15/19 09/15/19 Levothyroxine [Synthroid] 112 mcg PO QDAC 09/15/19 09/15/19 Oxybutynin [Ditropan] 5 mg PO DAILY 09/15/19 09/15/19 Pantoprazole Sodium [Protonix] 20 mg PO QDAC 09/15/19 09/15/19 clonazePAM [Clonazepam] 1 mg PO TID PRN 09/15/19 09/15/19 Aspirin [Suri] 325 mg PO BIDWM #60 tablet 09/18/19 Cephalexin [Keflex] 500 mg PO BID #14 capsule 09/18/19 Cyanocobalamin (Vitamin B-12) 1,000 mcg PO DAILY #30 tablet.er 09/18/19 [Vitamin B-12] Ferrous Gluconate 240 mg PO DAILY #30 tablet 09/18/19 Ketorolac [Toradol] 10 mg PO Q6HR PRN #15 tablet 09/18/19 Nicotine 14 mg Patch [Nicoderm] 1 patch TOP DAILY #14 patch 09/18/19 - Allergies Allergies/Adverse Reactions: Allergies Allergy/AdvReac Type Severity Reaction Status Date / Time carisoprodol [From Soma] Allergy Unknown Verified 09/19/19 12:49 divalproex sodium Allergy Rash Verified 09/19/19 12:49 [From Depakote] gabapentin [From Neurontin] Allergy Edema Verified 09/19/19 12:49 lidocaine Allergy Unknown Verified 09/19/19 12:49 nitrofurantoin Allergy Rash Verified 09/19/19 12:49 macrocrystalline * [From Macrodantin] nortriptyline Allergy Unknown Verified 09/19/19 12:49 ondansetron [From Zofran] Allergy Hives Verified 09/19/19 12:49 ondansetron HCl * Allergy Hives Verified 09/19/19 12:49 [From Zofran (as hydrochloride)] pregabalin [From Lyrica] Allergy Headache Verified 09/19/19 12:49 - Social History Does the pt smoke?: Yes Smoking Status: Current every day smoker Does the pt drink ETOH?: No Does the pt have substance abuse?: No - Immunizations Immunizations are current?: Yes Immunizations: TDAP >10years/unknown - POLST Patient has POLST: No POLST Status: DNR PD ED PE NORMAL - Vitals Vital signs reviewed: Yes - General General: No acute distress, Other (Somewhat somnolent/sleepy, but awakens easily to verbal stimuli, and is oriented x3.) - HEENT HEENT: Atraumatic, PERRL - Neck Neck: Supple, no meningeal sign - Cardiac Cardiac: RRR, No murmur - Respiratory Respiratory: Clear bilaterally - Abdomen Abdomen: Normal bowel sounds, Soft, Non tender, Non distended - Derm Derm: Warm and dry - Extremities Extremities: Other (Right ankle is in a splint, patient able to wiggle toes, exposed skin is warm with brisk capillary refill.) - Neuro Neuro: volunteer services specialist 2-12 intact, No motor deficit, No sensory deficit, Normal speech, Other (Somnolent but awakens easily to verbal stimuli.) - Psych Psych: Normal mood, Normal affect Results - Vitals Vitals: Oxygen O2 Source Room air - Labs Labs: Microbiology 09/19/19 14:44 Urine Culture - Final Urine,Clean Catch Klebsiella Pneumoniae Laboratory Tests 09/19/19 09/19/19 09/19/19 13:35 13:35 13:35 WBC 13.0 H RBC 3.28 L Hgb 8.5 L Hct 28.6 L MCV 87.2 MCH 25.9 L MCHC 29.7 L RDW 18.1 H Plt Count 187 MPV 10.9 H Neut # (Auto) Not Reportable Lymph # (Auto) Not Reportable [place] # (Auto) Not Reportable Eos # (Auto) Not Reportable Baso # (Auto) Not Reportable Absolute Nucleated RBC Not Reportable Total Counted 100 Band Neuts % (Manual) 3 Abnorm Lymph % (Manual) 0 Nucleated RBC % Not Reportable Neutrophils # (Manual) 10.9 H Lymphocytes # (Manual) 1.6 Monocytes # (Manual) 0.5 Eosinophils # (Manual) 0.0 Basophils # (Manual) 0.0 Differential Comment MANUAL DIFFERENTIAL Platelet Estimate NORMAL (130-450,000) Platelet Morphology NORMAL APPEARANCE RBC Morph Micro Appear 1+ HYPOCHROMASIA VBG pH 7.311 VBG pCO2 42.8 VBG pO2 55.5 H VBG HCO3 21.1 L VBG Total CO2 22.4 L VBG O2 Saturation 88.1 H VBG Base Excess -4.8 L Sodium 136 Potassium 4.9 Chloride 106 Carbon Dioxide 22 Anion Gap 8.0 BUN 28 H Creatinine 1.2 H Estimated GFR (MDRD) 48 L Glucose 374 H Calcium 7.6 L Total Bilirubin 0.5 AST 111 H ALT 38 Alkaline Phosphatase 95 Total Protein 5.4 L Albumin 2.6 L Globulin 2.8 Albumin/Globulin Ratio 0.9 L Lipase 18 L Urine Color Urine Clarity Urine pH Ur Specific [place] Urine Protein Urine Glucose (UA) Urine Ketones Urine Occult Blood Urine Nitrite Urine Bilirubin Urine Urobilinogen Ur Leukocyte Esterase Urine RBC Urine WBC Ur Squamous Epith Cells Urine Bacteria Ur Microscopic Review Urine Culture Comments Urine Opiates Screen Ur Oxycodone Screen Urine Methadone Screen Ur Propoxyphene Screen Ur Barbiturates Screen Ur Tricyclics Screen Ur Phencyclidine Scrn Ur Amphetamine Screen U Methamphetamines Scrn U Benzodiazepines Scrn Urine Cocaine Screen U Cannabinoids Screen Serum Ketones NEGATIVE 09/19/19 14:44 WBC RBC Hgb Hct MCV MCH MCHC RDW Plt Count MPV Neut # (Auto) Lymph # (Auto) [place] # (Auto) Eos # (Auto) Baso # (Auto) Absolute Nucleated RBC Total Counted Band Neuts % (Manual) Abnorm Lymph % (Manual) Nucleated RBC % Neutrophils # (Manual) Lymphocytes # (Manual) Monocytes # (Manual) Eosinophils # (Manual) Basophils # (Manual) Differential Comment Platelet Estimate Platelet Morphology RBC Morph Micro Appear VBG pH VBG pCO2 VBG pO2 VBG HCO3 VBG Total CO2 VBG O2 Saturation VBG Base Excess Sodium Potassium Chloride Carbon Dioxide Anion Gap BUN Creatinine Estimated GFR (MDRD) Glucose Calcium Total Bilirubin AST ALT Alkaline Phosphatase Total Protein Albumin Globulin Albumin/Globulin Ratio Lipase Urine Color YELLOW Urine Clarity CLOUDY Urine pH 5.0 Ur Specific [place] 1.015 Urine Protein TRACE Urine Glucose (UA) >=1000 H Urine Ketones NEGATIVE Urine Occult Blood LARGE H Urine Nitrite NEGATIVE Urine Bilirubin NEGATIVE Urine Urobilinogen 0.2 (NORMAL) Ur Leukocyte Esterase NEGATIVE Urine RBC 11-25 H Urine WBC 0-3 Ur Squamous Epith Cells FEW Squamous Urine Bacteria Many H Ur Microscopic Review INDICATED Urine Culture Comments INDICATED Urine Opiates Screen POSITIVE H Ur Oxycodone Screen NEGATIVE Urine Methadone Screen NEGATIVE Ur Propoxyphene Screen NEGATIVE Ur Barbiturates Screen POSITIVE H Ur Tricyclics Screen NEGATIVE Ur Phencyclidine Scrn NEGATIVE Ur Amphetamine Screen NEGATIVE U Methamphetamines Scrn NEGATIVE U Benzodiazepines Scrn NEGATIVE Urine Cocaine Screen NEGATIVE U Cannabinoids Screen NEGATIVE Serum Ketones PD MEDICAL DECISION MAKING - ED course Complexity details: considered differential (Substance use, opioid overdose, HHS, DKA, electrolyte abnormality, hyperglycemia) ED course: On arrival pt is somnolent but breathing normally, she is able to wake up and speak with me for a few sentences at a time. Labs show a slight leukocytosis which is non-specific, Urine negative for infection, Utox + for barbiturates and opiates. She also has hyperglycemia without signs of DKA or HHS. She had been given short acting insulin by her family member just prior to arrival and her glucose downtrended due to this. Her mental status cleared and her glucose dropped to 60, she was given PO and it subsequently stabilized. It appears she likely took too much pain medication and that her blood sugar was poorly managed at home after discharge. Given that she is back at her baseline and her blood sugar is stabilized, she appears appropriate for outpatient follow up. I discussed the dangers of opiate medications and that she needs to use them very sparingly, and not combine them with any other sedating medications. She understands the potential deadly risk of overdose. I also discussed the need for careful glucose monitoring, PCP follow up, and return precautions. Patient agrees with this plan, as does family at bedside. She was discharged home in the care of family, at the time of discharge she remained alert, with no deficits, appropriate interaction, and hemodynamically stable. Departure - Departure Disposition: 01 Home, Self Care Clinical Impression: Hyperglycemia Condition: Good Instructions: ED Hyperglycemia Diabetic Follow-Up: Isatu Belle MD [Primary Care Provider] - Within 3 Days Comments: You were seen today for some sleepiness as well as high blood sugar. Your blood sugar and somnolence have improved, please check your sugar frequently, and use your insulin as directed. Be very careful with your pain medications and other sedating medications, do not combine these together, use them sparingly and at the lowest dose possible. If you are developing any confusion, being overly sleepy, or any other concerning symptoms return to the emergency department immediately. Please follow-up with your primary care provider this week to get your labs redrawn, your kidney function was a little bit lower than normal today. Make sure you are hydrating adequately. Discharge Date/Time: 09/19/19 19:28
[2019-09-19] MEDS ORDERED: SODIUM CHLORIDE 0.9% 1,000 ML IV STA (13:21)
[2019-09-19] MEDS ORDERED: ONDANSETRON 4 MG/2 ML VIAL IVP STA (13:21)
[2019-09-19 14:02] LABS: BASOPHILS % (AUTO) 0.2 %; EOSINOPHILS % (AUTO) 0.2 %; HGB - HEMOGLOBIN 8.5 g/dL (12.0-16.0); LYMPHOCYTES % (AUTO) 10.8 %; MEAN CORPUSCULAR HEMOGLOBIN 25.9 pg (27.0-31.0); MEAN CORPUSCULAR HGB CONC 29.7 g/dL (32.0-36.0); MEAN CORPUSCULAR VOLUME 87.2 fL (81.0-99.0); MEAN PLATELET VOLUME 10.9 fL (7.9-10.8); MONOCYTES % (AUTO) 6.7 %; NEUTROPHILS % (AUTO) 77.9 %; PLT - PLATELET COUNT 187 10^3/uL (130-450); RED BLOOD COUNT 3.28 10^6/uL (4.20-5.40); RED CELL DISTRIBUTION WIDTH 18.1 % (12.0-15.0); VBG BASE EXCESS -4.8 mmol/L (-2 - +2); VBG PCO2 42.8 mmHg (41-51); VBG PH 7.311 (7.31-7.41); VBG PO2 55.5 mmHg (25-47); VBG TOTAL CO2 22.4 mmol/L (24-29)
[2019-09-19 14:06] LABS: ABNORMAL LYMPHS % (MANUAL) 0 %
[2019-09-19 14:15] LABS: ALBUMIN 2.6 g/dL (3.2-5.5); ALBUMIN/GLOBULIN RATIO 0.9 (1.0-2.2); ALKALINE PHOSPHATASE 95 IU/L (42-121); ALT ALANINE AMINOTRANSFERASE 38 IU/L (10-60); AST ASPARTATE AMINOTRANSFERASE 111 IU/L (10-42); BILIRUBIN,TOTAL 0.5 mg/dL (0.2-1.0); BUN - BLOOD UREA NITROGEN 28 mg/dL (6-20); CALCIUM 7.6 mg/dL (8.5-10.3); CARBON DIOXIDE - CO2 22 mmol/L (21-32); CHLORIDE 106 mmol/L (101-111); CREATININE 1.2 mg/dL (0.4-1.0); GFR - MDRD 48 (>89); GLUCOSE 374 mg/dL (70-100); LIPASE 18 U/L (22-51); SODIUM 136 mmol/L (135-145); TOTAL PROTEIN 5.4 g/dL (6.7-8.2)
[2019-09-19 14:28] LABS: BAND NEUTROPHILS % (MANUAL) 3 %; LYMPHOCYTES # (MANUAL) 1.6 10^3/uL (1.5-3.5); LYMPHOCYTES % (MANUAL) 12 %; MONOCYTES # (MANUAL) 0.5 10^3/uL (0.0-1.0)
[2019-09-19 14:29] LABS: DIFFERENTIAL COMMENT MANUAL DIFFERENTIAL; PLATELET ESTIMATE, MANUAL NORMAL (130-450,000) (NORMAL); PLATELET MORPHOLOGY NORMAL APPEARANCE (NORMAL)
[2019-09-19 14:39] LABS: KETONES, SERUM (ACETEST) NEGATIVE (NEGATIVE)
[2019-09-19 14:52] LABS: MUDS CUTOFF CONCENTRATIONS CUTOFF CONC BELOW:
[2019-09-19 14:54] LABS: BILIRUBIN,URINE NEGATIVE (NEGATIVE); GLUCOSE, URINE (UA) >=1000 mg/dL (NEGATIVE); KETONES,URINE (UA) NEGATIVE (NEGATIVE); LEUKOCYTE ESTERASE, URINE NEGATIVE (NEGATIVE); NITRITE,URINE NEGATIVE (NEGATIVE); OCCULT BLOOD,URINE LARGE (NEGATIVE); PROTEIN,URINE TRACE mg/dL (NEGATIVE); UROBILINOGEN,URINE 0.2 (NORMAL) E.U./dL (NORMAL)
[2019-09-19 14:56] LABS: CLARITY,URINE CLOUDY (CLEAR)
[2019-09-19 15:07] LABS: AMPHETAMINE SCREEN,URINE NEGATIVE (NEGATIVE); BENZODIAZEPINES SCREEN, URINE NEGATIVE (NEGATIVE); COCAINE SCREEN URINE NEGATIVE (NEGATIVE); METHADONE SCREEN, URINE NEGATIVE (NEGATIVE); METHAMPHETAMINES SCREEN, URINE NEGATIVE (NEGATIVE); OPIATE SCREEN, URINE POSITIVE (NEGATIVE); OXYCODONE SCREEN, URINE NEGATIVE (NEGATIVE); PROPOXYPHENE SCREEN, URINE NEGATIVE (NEGATIVE); TRICYCLIC ANTIDEPRESSANT,URINE NEGATIVE (NEGATIVE)
[2019-09-19 15:18] LABS: BACTERIA,URINE Many /HPF (None Seen); SQUAMOUS EPITHELIAL CELL,UR FEW Squamous (<= Few)
[2019-09-19 19:28] VITALS: BP 121/85
== END 2019-09-19 19:28 | disposition home or self-care (01) ==
LOC: EDUNIT# → ED 12:46
DX: E10.65 Type 1 diabetes mellitus with hyperglycemia (principal); R40.0 Somnolence; Z98.890 Other specified postprocedural states; F17.200 Nicotine dependence, unspecified, uncomplicated
CPT/HCPCS: 36415; 80053; 80306; 81001; 81003; 82009; 82803; 83690; 85025; 87077; 87086; 87181; 96360; 99283

== ENCOUNTER 2019-09-21 21:53 | Emergency (ER) | payer MEDICARE ==
--- NOTE | 2019-09-21 22:10 | ED Physician Documentation ---
History of Present Illness - Stated complaint Stated Complaint: ANKLE WOUND BLEEDING - Chief complaint Chief Complaint: Trauma Ext - History obtained from History obtained from: Patient, Family - History of Present Illness Timing: Today - Additonal information Additional information: Limited HPI/ROS due to severely altered mental status. Brought in by family. Per EDRN triage, patient was communicative when she first arrived, albeit quiet and brief with answers, and patient said she fell twice today and had concerns regarding reinjuring her right ankle. She was admitted to [facility] 09/15 for right ankle fracture and this was surgically repaired in [facility], then casted and she was discharged 09/18. It is unclear to me if she had specific concerns that these falls might have specifically caused further injury to the right ankle. Shortly after arrival , patient rapidly became increasingly drowsy and less responsive, and FSBS performed and result was 30. I was thus asked to see patient immediately. Patient follows few commands (opens eyes briefly and only with repeated instruction), and answers my questions with slurred and mostly unintelligible speech. Patient was T+R from this ED 09/19 for high blood sugar. 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: Other : Kidney stones, Other HEENT: Chronic vision loss, Chronic sinusitis Psych: Depression, Anxiety, Bipolar disorder, ADD/ADHD, Post traumatic stress disorder, Other Musculoskeletal: Osteoarthritis, Fibromyalgia, Fatigue, Chronic back pain Derm: None - Past Surgical History Past Surgical History: Yes General: Gastric surgery, Other Ortho: Rotator cuff repair, Other /CHIEF ENGINEER'S HELPER: section, Endometrial ablation, Tubal ligation - Present Medications Home Medications: Ambulatory Orders Medication Instructions Recorded Confirmed Insulin Lispro [Humalog] 20 - 25 units SQ DAILY 10/30/15 09/15/19 Baclofen 10 mg PO QID PRN 06/03/16 09/15/19 Escitalopram Oxalate [Lexapro] 40 mg PO DAILY 05/22/18 09/15/19 Simvastatin 20 mg PO QPM 05/22/18 09/15/19 Butalb/Acetam/Caff 50/325/40 1 tab PO Q4H PRN 01/22/19 09/15/19 [Fioricet] Oxycodone HCl 10 mg PO QID 01/22/19 09/15/19 Promethazine [Phenergan] 25 mg PO Q6H PRN 01/22/19 09/15/19 Aspirin [Adult Aspirin] 81 mg PO DAILY 01/23/19 05/18/19 Prazosin HCl 5 mg PO QPM 01/23/19 09/15/19 Trazodone HCl 200 mg PO QPM 01/23/19 09/15/19 Metoclopramide [Reglan] 10 mg PO ACHS #90 tablet 01/24/19 09/15/19 Albuterol Sulf [Ventolin Hfa 1 - 2 puffs INH Q4HR PRN #1 inhaler 06/28/19 09/15/19 Inhaler] Dextroamphetamine/Amphetamine 20 mg PO DAILY 09/15/19 09/15/19 [Adderall Xr 20 mg Capsule] Dicyclomine HCl 20 mg PO QID PRN 09/15/19 09/15/19 Duloxetine HCl [Cymbalta] 120 mg PO DAILY 09/15/19 09/15/19 Levothyroxine [Synthroid] 112 mcg PO QDAC 09/15/19 09/15/19 Oxybutynin [Ditropan] 5 mg PO DAILY 09/15/19 09/15/19 Pantoprazole Sodium [Protonix] 20 mg PO QDAC 09/15/19 09/15/19 clonazePAM [Clonazepam] 1 mg PO TID PRN 09/15/19 09/15/19 Aspirin [Suri] 325 mg PO BIDWM #60 tablet 09/18/19 Cephalexin [Keflex] 500 mg PO BID #14 capsule 09/18/19 Cyanocobalamin (Vitamin B-12) 1,000 mcg PO DAILY #30 tablet.er 09/18/19 [Vitamin B-12] Ferrous Gluconate 240 mg PO DAILY #30 tablet 09/18/19 Ketorolac [Toradol] 10 mg PO Q6HR PRN #15 tablet 09/18/19 Nicotine 14 mg Patch [Nicoderm] 1 patch TOP DAILY #14 patch 09/18/19 - Allergies Allergies/Adverse Reactions: Allergies Allergy/AdvReac Type Severity Reaction Status Date / Time carisoprodol [From Soma] Allergy Unknown Verified 09/19/19 12:49 divalproex sodium Allergy Rash Verified 09/19/19 12:49 [From Depakote] gabapentin [From Neurontin] Allergy Edema Verified 09/19/19 12:49 lidocaine Allergy Unknown Verified 09/19/19 12:49 nitrofurantoin Allergy Rash Verified 09/19/19 12:49 macrocrystalline * [From Macrodantin] nortriptyline Allergy Unknown Verified 09/19/19 12:49 ondansetron [From Zofran] Allergy Hives Verified 09/19/19 12:49 ondansetron HCl * Allergy Hives Verified 09/19/19 12:49 [From Zofran (as hydrochloride)] pregabalin [From Lyrica] Allergy Headache Verified 09/19/19 12:49 - Social History Does the pt smoke?: Yes Smoking Status: Current every day smoker Does the pt drink ETOH?: No Does the pt have substance abuse?: No - Immunizations Immunizations are current?: Yes Immunizations: TDAP >10years/unknown - POLST Patient has POLST: No POLST Status: DNR PD ED PE NORMAL - Vitals Vital signs reviewed: Yes - General General: Well developed/nourished - HEENT HEENT: Atraumatic, Other (tacky/pasty mucous membranes) - Cardiac Cardiac: No murmur - Respiratory Respiratory: No respiratory distress, Clear bilaterally - Abdomen Abdomen: Normal bowel sounds, Soft, Non distended - Back Back: Other (multiple bruises to lower back and both hips and thighs, bluish discoloration suggests these are recent but not acute) - Derm Derm: Normal color, Warm and dry - Extremities Extremities: Other (cast in place right ankle. toes are normal color with brisk capillary refill. no evidence of damage to cast and there is no blood noted on cast or toes) PD ED PE EXPANDED - General General: Lethargic - Cardiac Cardiac: Mina, Regular Rhythm - Neuro Neuro: Obtunded, PERRL - GCS Eye Opening: To Voice Motor: Obeys Commands Verbal: Incomprehensible Total: 11 Results - Vitals Vitals: Oxygen O2 Source Room air - EKG (time done) No standard instances Rate: Rate (enter#) (62) Rhythm: NSR [place]: LAD Intervals: Normal [place] QRS: Normal Ischemia: Normal ST segments, T wave inversion (II, III, aVF) - Labs Labs: Microbiology 09/21/19 22:57 Blood Culture - Preliminary Blood NO GROWTH AFTER 1 DAY Laboratory Tests 09/21/19 09/21/19 09/21/19 22:19 22:31 22:46 WBC 8.7 RBC 3.25 L Hgb 8.6 L Hct 27.9 L MCV 85.8 MCH 26.5 L MCHC 30.8 L RDW 18.5 H Plt Count 207 MPV 10.3 Neut # (Auto) 5.8 Lymph # (Auto) 1.3 L [place] # (Auto) 0.8 Eos # (Auto) 0.7 Baso # (Auto) 0.1 Absolute Nucleated RBC 0.00 Nucleated RBC % 0.0 Sodium Potassium Chloride Carbon Dioxide Anion Gap BUN Creatinine Estimated GFR (MDRD) Glucose POC Whole Bld Glucose 36 L* 349 H Lactic Acid Calcium Urine Color Urine Clarity Urine pH Ur Specific [place] Urine Protein Urine Glucose (UA) Urine Ketones Urine Occult Blood Urine Nitrite Urine Bilirubin Urine Urobilinogen Ur Leukocyte Esterase Ur Microscopic Review Urine Culture Comments Urine Opiates Screen Ur Oxycodone Screen Urine Methadone Screen Ur Propoxyphene Screen Ur Barbiturates Screen Ur Tricyclics Screen Ur Phencyclidine Scrn Ur Amphetamine Screen U Methamphetamines Scrn U Benzodiazepines Scrn Urine Cocaine Screen U Cannabinoids Screen 09/21/19 09/21/19 09/21/19 22:46 22:57 23:00 WBC RBC Hgb Hct MCV MCH MCHC RDW Plt Count MPV Neut # (Auto) Lymph # (Auto) [place] # (Auto) Eos # (Auto) Baso # (Auto) Absolute Nucleated RBC Nucleated RBC % Sodium 135 Potassium 3.2 L Chloride 103 Carbon Dioxide 24 Anion Gap 8.0 BUN 10 Creatinine 0.8 Estimated GFR (MDRD) 77 L Glucose 208 H POC Whole Bld Glucose Lactic Acid 2.0 Calcium 7.9 L Urine Color YELLOW Urine Clarity CLEAR Urine pH 6.5 Ur Specific [place] <=1.005 Urine Protein NEGATIVE Urine Glucose (UA) NEGATIVE Urine Ketones NEGATIVE Urine Occult Blood NEGATIVE Urine Nitrite NEGATIVE Urine Bilirubin NEGATIVE Urine Urobilinogen 0.2 (NORMAL) Ur Leukocyte Esterase NEGATIVE Ur Microscopic Review NOT INDICATED Urine Culture Comments NOT INDICATED Urine Opiates Screen Ur Oxycodone Screen Urine Methadone Screen Ur Propoxyphene Screen Ur Barbiturates Screen Ur Tricyclics Screen Ur Phencyclidine Scrn Ur Amphetamine Screen U Methamphetamines Scrn U Benzodiazepines Scrn Urine Cocaine Screen U Cannabinoids Screen 09/21/19 09/21/19 09/21/19 23:00 23:10 23:54 WBC RBC Hgb Hct MCV MCH MCHC RDW Plt Count MPV Neut # (Auto) Lymph # (Auto) [place] # (Auto) Eos # (Auto) Baso # (Auto) Absolute Nucleated RBC Nucleated RBC % Sodium Potassium Chloride Carbon Dioxide Anion Gap BUN Creatinine Estimated GFR (MDRD) Glucose POC Whole Bld Glucose 174 H 80 Lactic Acid Calcium Urine Color Urine Clarity Urine pH Ur Specific [place] Urine Protein Urine Glucose (UA) Urine Ketones Urine Occult Blood Urine Nitrite Urine Bilirubin Urine Urobilinogen Ur Leukocyte Esterase Ur Microscopic Review Urine Culture Comments Urine Opiates Screen NEGATIVE Ur Oxycodone Screen NEGATIVE Urine Methadone Screen NEGATIVE Ur Propoxyphene Screen NEGATIVE Ur Barbiturates Screen POSITIVE H Ur Tricyclics Screen NEGATIVE Ur Phencyclidine Scrn NEGATIVE Ur Amphetamine Screen NEGATIVE U Methamphetamines Scrn NEGATIVE U Benzodiazepines Scrn NEGATIVE Urine Cocaine Screen NEGATIVE U Cannabinoids Screen NEGATIVE 09/22/19 09/22/19 09/22/19 01:14 02:34 04:26 WBC RBC Hgb Hct MCV MCH MCHC RDW Plt Count MPV Neut # (Auto) Lymph # (Auto) [place] # (Auto) Eos # (Auto) Baso # (Auto) Absolute Nucleated RBC Nucleated RBC % Sodium Potassium Chloride Carbon Dioxide Anion Gap BUN Creatinine Estimated GFR (MDRD) Glucose POC Whole Bld Glucose 62 L 140 H 105 H Lactic Acid Calcium Urine Color Urine Clarity Urine pH Ur Specific [place] Urine Protein Urine Glucose (UA) Urine Ketones Urine Occult Blood Urine Nitrite Urine Bilirubin Urine Urobilinogen Ur Leukocyte Esterase Ur Microscopic Review Urine Culture Comments Urine Opiates Screen Ur Oxycodone Screen Urine Methadone Screen Ur Propoxyphene Screen Ur Barbiturates Screen Ur Tricyclics Screen Ur Phencyclidine Scrn Ur Amphetamine Screen U Methamphetamines Scrn U Benzodiazepines Scrn Urine Cocaine Screen U Cannabinoids Screen 09/22/19 09/22/19 05:47 08:38 WBC RBC Hgb Hct MCV MCH MCHC RDW Plt Count MPV Neut # (Auto) Lymph # (Auto) [place] # (Auto) Eos # (Auto) Baso # (Auto) Absolute Nucleated RBC Nucleated RBC % Sodium Potassium Chloride Carbon Dioxide Anion Gap BUN Creatinine Estimated GFR (MDRD) Glucose POC Whole Bld Glucose 133 H 306 H Lactic Acid Calcium Urine Color Urine Clarity Urine pH Ur Specific [place] Urine Protein Urine Glucose (UA) Urine Ketones Urine Occult Blood Urine Nitrite Urine Bilirubin Urine Urobilinogen Ur Leukocyte Esterase Ur Microscopic Review Urine Culture Comments Urine Opiates Screen Ur Oxycodone Screen Urine Methadone Screen Ur Propoxyphene Screen Ur Barbiturates Screen Ur Tricyclics Screen Ur Phencyclidine Scrn Ur Amphetamine Screen U Methamphetamines Scrn U Benzodiazepines Scrn Urine Cocaine Screen U Cannabinoids Screen PD MEDICAL DECISION MAKING - ED course Complexity details: reviewed old records, reviewed results, re-evaluated patient, considered differential, d/w patient ED course: Given IV dextrose (250 ml D10, as D50 not available due to shortage). This rapidly increased blood sugar to over 300; despite this, she was very slow to exhibit any significant improvement in mental status. Her blood sugar steadily declined on repeated readings, eventually requiring two more doses of IV dextrose (25 grams, 250 ml of D10). However, her mental status did gradually improve during this time. Given the need for repeated doses of IV dextrose, I asked the hospitalist to admit the patient for further observation and treatment for her recurrent hypoglycemia. However, when hospitalist evaluated patient, she had finally become awake and alert, oriented x 3, and clearly and repeatedly refused admission. I then reevaluated her and confirmed that she provided quiet but appropriate answers that indicated she was oriented x 3, understood the reasons for recommendations for admission, and was able to verbalized recognition of the risks of refusing admission, including permanent disability as well as , and persisted in refusing admission. She was observed in ED for a few more hours due to difficulty getting back in touch with family, and repeated FSBS demonstrated persistent stabilization of the blood sugar. She maintained a quiet, withdrawn affect which previous notes suggest is her baseline, and she was oriented x 3 at time of final disposition. Social work was consulted, but they informed me that they had already evaluated patient during her recent inpatient stay and there were no further options they could make available for her at this time. Departure - Departure Disposition: 01 Home, Self Care Clinical Impression: Hypoglycemia Condition: Good Instructions: ED Diabetes Hypoglycemia Insulin React Follow-Up: Isatu Belle MD [Primary Care Provider] - Discharge Date/Time: 09/22/19 09:25
[2019-09-21] MEDS ORDERED: DEXTROSE 50% ABBOJECT 25 GM/50 ML SYRINGE IVP STA (22:11)
[2019-09-21] MEDS ORDERED: GLUCAGON 1 MG/ML VIAL IM STA (22:16)
[2019-09-21] MEDS ORDERED: DEXTROSE 10% 250 ML IV ONE (22:27)
[2019-09-21] MEDS ORDERED: DEXTROSE GEL 37.5 GM TUBE ONE (22:27)
[2019-09-21] MEDS ORDERED: NALOXONE 0.4 MG/ML VIAL IVP STA (22:40)
[2019-09-21] MEDS ORDERED: NALOXONE 0.4 MG/ML VIAL ONE (22:44)
[2019-09-21 22:51] LABS: BASOPHILS # (AUTO) 0.1 10^3/uL (0.0-0.1); BASOPHILS % (AUTO) 0.6 %; EOSINOPHILS # (AUTO) 0.7 10^3/uL (0.0-0.7); EOSINOPHILS % (AUTO) 8.2 %; HGB - HEMOGLOBIN 8.6 g/dL (12.0-16.0); LYMPHOCYTES # (AUTO) 1.3 10^3/uL (1.5-3.5); LYMPHOCYTES % (AUTO) 14.9 %; MEAN CORPUSCULAR HEMOGLOBIN 26.5 pg (27.0-31.0); MEAN CORPUSCULAR HGB CONC 30.8 g/dL (32.0-36.0); MEAN CORPUSCULAR VOLUME 85.8 fL (81.0-99.0); MEAN PLATELET VOLUME 10.3 fL (7.9-10.8); MONOCYTES # (AUTO) 0.8 10^3/uL (0.0-1.0); MONOCYTES % (AUTO) 8.8 %; NEUTROPHILS # (AUTO) 5.8 10^3/uL (1.5-6.6); NEUTROPHILS % (AUTO) 66.3 %; PLT - PLATELET COUNT 207 10^3/uL (130-450); RED BLOOD COUNT 3.25 10^6/uL (4.20-5.40); RED CELL DISTRIBUTION WIDTH 18.5 % (12.0-15.0); WHITE BLOOD COUNT 8.7 x10^3/uL (4.8-10.8)
[2019-09-21 23:00] LABS: CALCIUM 7.9 mg/dL (8.5-10.3); CREATININE 0.8 mg/dL (0.4-1.0)
[2019-09-21] MEDS ORDERED: DEXTROSE GEL 37.5 GM TUBE PO STA (23:10)
[2019-09-21 23:11] LABS: BILIRUBIN,URINE NEGATIVE (NEGATIVE); GLUCOSE, URINE (UA) NEGATIVE (NEGATIVE); KETONES,URINE (UA) NEGATIVE (NEGATIVE); LEUKOCYTE ESTERASE, URINE NEGATIVE (NEGATIVE); MUDS CUTOFF CONCENTRATIONS CUTOFF CONC BELOW:; NITRITE,URINE NEGATIVE (NEGATIVE); OCCULT BLOOD,URINE NEGATIVE (NEGATIVE); PH,URINE 6.5 PH (5.0-7.5); PROTEIN,URINE NEGATIVE (NEGATIVE); UROBILINOGEN,URINE 0.2 (NORMAL) E.U./dL (NORMAL)
[2019-09-21] MEDS ORDERED: DEXTROSE 10% 250 ML IV STA (23:11)
[2019-09-21 23:12] LABS: CLARITY,URINE CLEAR (CLEAR)
[2019-09-21 23:22] LABS: AMPHETAMINE SCREEN,URINE NEGATIVE (NEGATIVE); BENZODIAZEPINES SCREEN, URINE NEGATIVE (NEGATIVE); COCAINE SCREEN URINE NEGATIVE (NEGATIVE); METHADONE SCREEN, URINE NEGATIVE (NEGATIVE); METHAMPHETAMINES SCREEN, URINE NEGATIVE (NEGATIVE); OPIATE SCREEN, URINE NEGATIVE (NEGATIVE); OXYCODONE SCREEN, URINE NEGATIVE (NEGATIVE); PROPOXYPHENE SCREEN, URINE NEGATIVE (NEGATIVE); TRICYCLIC ANTIDEPRESSANT,URINE NEGATIVE (NEGATIVE)
[2019-09-22] MEDS ORDERED: DEXTROSE 10% 250 ML IV STA ×2 (00:01→01:29)
[2019-09-22] MEDS ORDERED: SODIUM CHLORIDE FLUSH 0.9% 10 ML SYRINGE IVP PRN (02:39)
[2019-09-22] MEDS ORDERED: POTASSIUM CHLORIDE 20 MEQ TABLET PO STA (02:44)
[2019-09-22 07:15] VITALS: BP 154/67
[2019-09-22] MEDS ORDERED: oxyCODONE 5 MG TABLET PO STA (07:58)
[2019-09-22] MEDS ORDERED: HEPARIN 5,000 UNIT/ML VIAL SUBQ SCH (09:00)
[2019-09-22] MEDS ORDERED: SODIUM CHLORIDE FLUSH 0.9% 10 ML SYRINGE IVP SCH (09:00)
[2019-09-22] MEDS ORDERED: KETOROLAC 60 MG/2 ML VIAL IM STA (09:07)
== END 2019-09-22 09:25 | disposition home or self-care (01) ==
LOC: ED 21:53
DX: E10.649 Type 1 diabetes mellitus with hypoglycemia without coma (principal); E10.42 Type 1 diabetes mellitus with diabetic polyneuropathy; Z79.4 Long term (current) use of insulin; F17.200 Nicotine dependence, unspecified, uncomplicated; Z66 Do not resuscitate
CPT/HCPCS: 36415; 80048; 81003; 83605; 85025; 87040; 93005; 96361; 96372; 96374; 99281; 99285; A9270; J3490; 80306; 81001; 83036; 87086

== ENCOUNTER 2019-09-25 14:42 | Emergency (ER) | payer MEDICARE ==
[2019-09-25 14:51] VITALS: BP 123/64
[2019-09-25] MEDS ORDERED: oxyCODONE 5 MG TABLET PO STA (15:12)
[2019-09-25] MEDS ORDERED: KETOROLAC 60 MG/2 ML VIAL IM STA (15:12)
--- NOTE | 2019-09-25 15:15 | ED Physician Documentation ---
PD HPI LOWER EXT INJURY - Stated complaint Stated Complaint: R LEG/ANKLE PX POST OP - Chief complaint Chief Complaint: Ext Problem - History obtained from History obtained from: Patient - History of Present Illness PD HPI LOW EXT INJURY LOCATION: Right (This is a 44-year-old woman with diabetes and chronic pain. She suffered an open ankle fracture about a week ago and had it surgically repaired. Unfortunately he she has had uncontrolled pain despite taking her usual pain medication which is oxycodone 10 mg every 4 hours. She is also out of the Toradol. 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: Other : Kidney stones, Other HEENT: Chronic vision loss, Chronic sinusitis Psych: Depression, Anxiety, Bipolar disorder, ADD/ADHD, Post traumatic stress disorder, Other Musculoskeletal: Osteoarthritis, Fibromyalgia, Fatigue, Chronic back pain Derm: None - Past Surgical History Past Surgical History: Yes General: Gastric surgery, Other Ortho: Rotator cuff repair, 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 /GLOBAL PROJECT 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, Endometrial ablation, Tubal ligation - Present Medications Home Medications: Ambulatory Orders Medication Instructions Recorded Confirmed Insulin Lispro [Humalog] 20 - 25 units SQ DAILY 10/30/15 09/15/19 Baclofen 10 mg PO QID PRN 06/03/16 09/15/19 Escitalopram Oxalate [Lexapro] 40 mg PO DAILY 05/22/18 09/15/19 Simvastatin 20 mg PO QPM 05/22/18 09/15/19 Butalb/Acetam/Caff 50/325/40 1 tab PO Q4H PRN 01/22/19 09/15/19 [Fioricet] Oxycodone HCl 10 mg PO QID 01/22/19 09/15/19 Promethazine [Phenergan] 25 mg PO Q6H PRN 01/22/19 09/15/19 Aspirin [Adult Aspirin] 81 mg PO DAILY 01/23/19 05/18/19 Prazosin HCl 5 mg PO QPM 01/23/19 09/15/19 Trazodone HCl 200 mg PO QPM 01/23/19 09/15/19 Metoclopramide [Reglan] 10 mg PO ACHS #90 tablet 01/24/19 09/15/19 Albuterol Sulf [Ventolin Hfa 1 - 2 puffs INH Q4HR PRN #1 inhaler 06/28/19 09/15/19 Inhaler] Dextroamphetamine/Amphetamine 20 mg PO DAILY 09/15/19 09/15/19 [Adderall Xr 20 mg Capsule] Dicyclomine HCl 20 mg PO QID PRN 09/15/19 09/15/19 Duloxetine HCl [Cymbalta] 120 mg PO DAILY 09/15/19 09/15/19 Levothyroxine [Synthroid] 112 mcg PO QDAC 09/15/19 09/15/19 Oxybutynin [Ditropan] 5 mg PO DAILY 09/15/19 09/15/19 Pantoprazole Sodium [Protonix] 20 mg PO QDAC 09/15/19 09/15/19 clonazePAM [Clonazepam] 1 mg PO TID PRN 09/15/19 09/15/19 Aspirin [Suri] 325 mg PO BIDWM #60 tablet 09/18/19 Cephalexin [Keflex] 500 mg PO BID #14 capsule 09/18/19 Cyanocobalamin (Vitamin B-12) 1,000 mcg PO DAILY #30 tablet.er 09/18/19 [Vitamin B-12] Ferrous Gluconate 240 mg PO DAILY #30 tablet 09/18/19 Ketorolac [Toradol] 10 mg PO Q6HR PRN #15 tablet 09/18/19 Nicotine 14 mg Patch [Nicoderm] 1 patch TOP DAILY #14 patch 09/18/19 Ketorolac [Toradol] 10 mg PO Q6H #14 tablet 09/25/19 Oxycodone HCl 10 mg PO Q4H PRN #10 tablet 09/25/19 - Allergies Allergies/Adverse Reactions: Allergies Allergy/AdvReac Type Severity Reaction Status Date / Time carisoprodol [From Soma] Allergy Unknown Verified 09/25/19 14:51 divalproex sodium Allergy Rash Verified 09/25/19 14:51 [From Depakote] gabapentin [From Neurontin] Allergy Edema Verified 09/25/19 14:51 lidocaine Allergy Unknown Verified 09/25/19 14:51 nitrofurantoin Allergy Rash Verified 09/25/19 14:51 macrocrystalline * [From Macrodantin] nortriptyline Allergy Unknown Verified 09/25/19 14:51 ondansetron [From Zofran] Allergy Hives Verified 09/25/19 14:51 ondansetron HCl * Allergy Hives Verified 09/25/19 14:51 [From Zofran (as hydrochloride)] pregabalin [From Lyrica] Allergy Headache Verified 09/25/19 14:51 - Social History Does the pt smoke?: Yes Smoking Status: Current every day smoker Does the pt drink ETOH?: No Does the pt have substance abuse?: No - Immunizations Immunizations are current?: Yes Immunizations: TDAP >10years/unknown - POLST Patient has POLST: No POLST Status: DNR PD ED PE NORMAL - Vitals Vital signs reviewed: Yes - General General: Alert and oriented X 3, No acute distress - Extremities Extremities: Other (Splint in place on the right lower extremity, pink warm and dry toes with good range of motion.) - Neuro Neuro: Alert and oriented X 3, Normal speech Results - Vitals Vitals: Vital Signs - 24 hr 09/25/19 14:49 Temperature 36.7 C Heart Rate 86 Respiratory 20 Rate Blood Pressure 123/64 O2 Saturation 97 Oxygen O2 Source Room air PD MEDICAL DECISION MAKING - ED course ED course: This is a 44-year-old woman who with chronic pain who suffered a recent ankle fracture and her pain is uncontrolled on her usual dose of oxycodone, which is clearly compounded by the fact that she has been walking on it. Departure - Departure Disposition: 01 Home, Self Care Clinical Impression: Open fracture ankle, trimalleolar Qualifiers: Encounter type: subsequent encounter Laterality: right Fracture healing: with routine healing Condition: Fair Record reviewed to determine appropriate education?: Yes Prescriptions: Ketorolac [Toradol] 10 mg PO Q6H #14 tablet Oxycodone HCl 10 mg PO Q4H PRN #10 tablet PRN Reason: Pain Comments: It is imperative that she not walk on the right leg. Your healing will be delayed and your pain will be worse if you do not follow the instructions. Follow-up with Dr. Belle for further pain medication, all further pain medicine medication must come from her. Elevate it as much as possible. Follow-up with the orthopedic surgeon on as scheduled.
== END 2019-09-25 15:26 | disposition home or self-care (01) ==
LOC: ED 14:42
DX: S82.891D Other fracture of right lower leg, subsequent encounter for closed fracture with routine healing (principal); X58.XXXD Exposure to other specified factors, subsequent encounter; G89.29 Other chronic pain; E78.00 Pure hypercholesterolemia, unspecified; E10.42 Type 1 diabetes mellitus with diabetic polyneuropathy; E03.9 Hypothyroidism, unspecified; F17.200 Nicotine dependence, unspecified, uncomplicated; Z79.82 Long term (current) use of aspirin
CPT/HCPCS: 96372; 99283; A9270

== ENCOUNTER 2019-09-26 12:16 | Outpatient (CLI) | payer MEDICARE ==
--- NOTE | 2019-09-27 10:17 | XRAY Report ---
Reason: INCREASED PAIN AFTER SURGERY Procedure Date: 09/26/2019 Accession Number: [id number] / [id number] Procedure: XR - Ankle 3 View RT CPT Code: Final Report FULL RESULT: EXAM: RIGHT ANKLE RADIOGRAPHY EXAM DATE: 09/26/2019 12:29 PM. CLINICAL HISTORY: INCREASED PAIN AFTER SURGERY. COMPARISON: ANKLE 2 VIEW RT 09/15/2019 6:52 AM LEG LOWER RT 09/15/2019 1:14 AM. TECHNIQUE: 3 views. FINDINGS: Bones: Overlying cast material obscures fine osseous detail. Internal fixation of the ankle fracture is seen with 2 medial malleolar screws and lateral fibular plate and screws including 2 syndesmotic screws. Suggestion of new cortical step-off in the distal fibula is seen near the superior and of the fibular plate and screws which may reflect a subtle minimally displaced distal fibular fracture. Joints: There is posterior dislocation of the talar dome with respect to the tibial plafond.. Soft Tissues: Postoperative soft tissue swelling again seen. IMPRESSION: 1. Suggestion of new cortical step-off of the distal fibula near the superior end of the fibular plate which could reflect a subtle new or previously occult distal fibular fracture. 2. Posterior dislocation of the talar dome with respect to the tibial plafond noted to persist post-operatively. RADIA
== END 2019-09-26 12:17 | disposition home or self-care (01) ==
LOC: DI 12:16
PROVIDERS: ATTEND Internal Medicine
DX: G89.18 Other acute postprocedural pain (principal); M25.571 Pain in right ankle and joints of right foot; S93.04XA Dislocation of right ankle joint, initial encounter

== ENCOUNTER 2019-10-14 07:21 | Outpatient (CLI) | payer MEDICARE | END 2019-10-14 07:22 | disposition critical access hospital (66) | LOC: EMS 07:21 | PROVIDERS: ATTEND Surgery | DX: R41.82 Altered mental status, unspecified (principal); R46.89 Other symptoms and signs involving appearance and behavior; R73.09 Other abnormal glucose | CPT/HCPCS: A0425; A0427 ==

== ENCOUNTER 2019-10-14 07:39 | Inpatient (IN) | payer MEDICARE ==
[2019-10-14 08:22] LABS: VBG BASE EXCESS -8.7 mmol/L (-2 - +2); VBG PCO2 34.1 mmHg (41-51); VBG PH 7.307 (7.31-7.41); VBG PO2 46.4 mmHg (25-47); VBG TOTAL CO2 17.7 mmol/L (24-29)
[2019-10-14 08:35] LABS: ACETAMINOPHEN < 10 ug/mL (10-30); SALICYLATE < 6.0 mg/dL
[2019-10-14 08:39] LABS: ALBUMIN 3.5 g/dL (3.2-5.5); ALBUMIN/GLOBULIN RATIO 0.9 (1.0-2.2); BILIRUBIN,TOTAL 1.2 mg/dL (0.2-1.0); CREATININE 1.5 mg/dL (0.4-1.0); TOTAL PROTEIN 7.3 g/dL (6.7-8.2)
[2019-10-14 08:43] LABS: BASOPHILS % (AUTO) 0.3 %; HGB - HEMOGLOBIN 9.1 g/dL (12.0-16.0); LYMPHOCYTES # (AUTO) 0.3 10^3/uL (1.5-3.5); MEAN CORPUSCULAR HEMOGLOBIN 26.5 pg (27.0-31.0); MEAN CORPUSCULAR HGB CONC 29.3 g/dL (32.0-36.0); MEAN CORPUSCULAR VOLUME 90.4 fL (81.0-99.0); MEAN PLATELET VOLUME 11.6 fL (7.9-10.8); MONOCYTES # (AUTO) 0.8 10^3/uL (0.0-1.0); NEUTROPHILS # (AUTO) 12.6 10^3/uL (1.5-6.6); NEUTROPHILS % (AUTO) 90.6 %; PLT - PLATELET COUNT 371 10^3/uL (130-450); RED BLOOD COUNT 3.44 10^6/uL (4.20-5.40); RED CELL DISTRIBUTION WIDTH 18.8 % (12.0-15.0); WHITE BLOOD COUNT 13.9 x10^3/uL (4.8-10.8)
[2019-10-14] MEDS ORDERED: INSULIN REGULAR HUMAN 100 UNIT in SODIUM CHLORIDE 0.9% 100ML 99 ML IV STA (08:51)
[2019-10-14 09:04] LABS: MUDS CUTOFF CONCENTRATIONS CUTOFF CONC BELOW:
[2019-10-14 09:06] LABS: BILIRUBIN,URINE NEGATIVE (NEGATIVE); GLUCOSE, URINE (UA) >=1000 mg/dL (NEGATIVE); KETONES,URINE (UA) 15 mg/dL (NEGATIVE); LEUKOCYTE ESTERASE, URINE NEGATIVE (NEGATIVE); NITRITE,URINE NEGATIVE (NEGATIVE); OCCULT BLOOD,URINE NEGATIVE (NEGATIVE); PH,URINE 5.5 PH (5.0-7.5); PROTEIN,URINE NEGATIVE (NEGATIVE); UROBILINOGEN,URINE 0.2 (NORMAL) E.U./dL (NORMAL)
[2019-10-14 09:08] LABS: CLARITY,URINE CLEAR (CLEAR); HCG UR QUAL NEGATIVE
[2019-10-14 09:19] LABS: AMPHETAMINE SCREEN,URINE NEGATIVE (NEGATIVE); BENZODIAZEPINES SCREEN, URINE NEGATIVE (NEGATIVE); COCAINE SCREEN URINE NEGATIVE (NEGATIVE); METHADONE SCREEN, URINE NEGATIVE (NEGATIVE); METHAMPHETAMINES SCREEN, URINE NEGATIVE (NEGATIVE); OPIATE SCREEN, URINE NEGATIVE (NEGATIVE); OXYCODONE SCREEN, URINE NEGATIVE (NEGATIVE); PROPOXYPHENE SCREEN, URINE NEGATIVE (NEGATIVE); TRICYCLIC ANTIDEPRESSANT,URINE NEGATIVE (NEGATIVE)
--- NOTE | 2019-10-14 09:31 | XRAY Report ---
Reason: altered LOC Procedure Date: 10/14/2019 Accession Number: [id number] / [id number] Procedure: XR - Chest 1 View X-Ray CPT Code: 00500 Final Report FULL RESULT: EXAM: CHEST RADIOGRAPHY EXAM DATE: 10/14/2019 09:08 AM. CLINICAL HISTORY: Altered LOC. COMPARISON: CHEST 1 VIEW 09/15/2019 3:00 AM. TECHNIQUE: 1 view. FINDINGS: Lungs/Pleura: No focal opacities evident. No pleural effusion. No pneumothorax. Mediastinum: Within exam limitations, the cardiomediastinal contour is normal. Other: Old, healed lateral lower right rib fractures. IMPRESSION: No acute abnormality of the chest demonstrated. RADIA
--- NOTE | 2019-10-14 11:13 | ED Physician Documentation ---
PD HPI ALTERED MENTAL STATUS - Stated complaint Stated Complaint: AMS - Chief complaint Chief Complaint: Neuro - History obtained from History obtained from: Patient, EMS - History of Present Illness Timing - onset: Today Timing - duration: Hours Timing - details: Gradual onset, Still present Quality / character: Less responsive, Confused, Disoriented Associated symptoms: General weakness Contributing factors: Diabetic, Recent med change, Recent injury, Substance abuse Basline status: Alert and oriented X 3, Ambulatory, Independent Similar symptoms before: Diagnosis (DKA) Recently seen: Emergency Dept, Admitted - Additional information Additional information: 44-year-old female with type 1 diabetes on a insulin pump has a prior history of gastric bypass and chronic pain and she is recently had a fall had an open fracture of her tib-fib on the right side and she has had a surgical procedure for repair and she has had a second surgical procedure with placement of an external fixator. She is brought to the hospital by ambulance this morning with altered level of consciousness when medics went to pick her up with a found that her bottle of oxycodone filled yesterday had 28 pills missing. The patient is not able to give adequate history for any of this. She does have a prior history of alcohol use and chronic pain requiring regular use of narcotic pain reliever. Today she is unable to assist in history but we were able to get from her that she had a procedure done at [facility] in [place] and I assume this is the external fixiter. Review of Systems Unable to obtain: AMS, Confused PD PAST MEDICAL HISTORY - Past Medical History Past Medical History: Yes Cardiovascular: High cholesterol, Murmur Respiratory: COPD, Pneumonia, Shortness of breath Neuro: Headaches, Migraines, Peripheral neuropathy, Seizure disorder, Other Endocrine/Autoimmune: Type 1 diabetes, HyPOthyroidism GI: GERD, GI bleed, Ulcers, Other [employer]: Other : Kidney stones, Other HEENT: Chronic vision loss, Chronic sinusitis Psych: Depression, Anxiety, Bipolar disorder, ADD/ADHD, Post traumatic stress disorder, Other Musculoskeletal: Osteoarthritis, Fibromyalgia, Fatigue, Chronic back pain Derm: None - Past Surgical History Past Surgical History: Yes General: Gastric surgery, Other Ortho: Rotator cuff repair, Other /[employer]: section, Endometrial ablation, Tubal ligation - Present Medications Home Medications: Ambulatory Orders Medication Instructions Recorded Confirmed Insulin Lispro [Humalog] 20 - 25 units SQ DAILY 10/30/15 09/15/19 Baclofen 10 mg PO QID PRN 06/03/16 10/14/19 Escitalopram Oxalate [Lexapro] 40 mg PO DAILY 05/22/18 10/14/19 Simvastatin 20 mg PO QPM 05/22/18 10/14/19 Butalb/Acetam/Caff 50/325/40 1 tab PO Q4H PRN 01/22/19 10/14/19 [Fioricet] Oxycodone HCl 10 mg PO QID 01/22/19 10/14/19 Prazosin HCl 5 mg PO QPM 01/23/19 10/14/19 Trazodone HCl 200 mg PO QPM 01/23/19 10/14/19 Dextroamphetamine/Amphetamine 20 mg PO DAILY 09/15/19 10/14/19 [Adderall Xr 20 mg Capsule] Dicyclomine HCl 20 mg PO QID PRN 09/15/19 10/14/19 Duloxetine HCl [Cymbalta] 120 mg PO DAILY 09/15/19 10/14/19 Levothyroxine [Synthroid] 112 mcg PO QDAC 09/15/19 10/14/19 Oxybutynin [Ditropan] 5 mg PO DAILY 09/15/19 10/14/19 Pantoprazole Sodium [Protonix] 20 mg PO QDAC 09/15/19 10/14/19 clonazePAM [Clonazepam] 1 mg PO TID PRN 09/15/19 10/14/19 Aspirin [Suri] 325 mg PO BIDWM #60 tablet 09/18/19 10/14/19 Cyanocobalamin (Vitamin B-12) 1,000 mcg PO DAILY #30 tablet.er 09/18/19 [Vitamin B-12] Ferrous Gluconate 240 mg PO DAILY #30 tablet 09/18/19 Ketorolac [Toradol] 10 mg PO Q6HR PRN #15 tablet 09/18/19 Nicotine 14 mg Patch [Nicoderm] 1 patch TOP DAILY #14 patch 09/18/19 Metoclopramide HCl 10 mg PO ACHS 10/14/19 10/14/19 Spironolactone 100 mg PO DAILY 10/14/19 10/14/19 - Allergies Allergies/Adverse Reactions: Allergies Allergy/AdvReac Type Severity Reaction Status Date / Time carisoprodol [From Soma] Allergy Unknown Verified 10/14/19 07:53 divalproex sodium Allergy Rash Verified 10/14/19 07:53 [From Depakote] gabapentin [From Neurontin] Allergy Edema Verified 10/14/19 07:53 lidocaine Allergy Unknown Verified 10/14/19 07:53 nitrofurantoin Allergy Rash Verified 10/14/19 07:53 macrocrystalline * [From Macrodantin] nortriptyline Allergy Unknown Verified 10/14/19 07:53 ondansetron [From Zofran] Allergy Hives Verified 10/14/19 07:53 ondansetron HCl * Allergy Hives Verified 10/14/19 07:53 [From Zofran (as hydrochloride)] pregabalin [From Lyrica] Allergy Headache Verified 10/14/19 07:53 - Social History Does the pt smoke?: Yes Smoking Status: Current every day smoker Does the pt drink ETOH?: No Does the pt have substance abuse?: No - Immunizations Immunizations are current?: Yes Immunizations: TDAP >10years/unknown - POLST Patient has POLST: No POLST Status: DNR PD ED PE NORMAL - Vitals Vital signs reviewed: Yes - General General: Other (Thin 44 y/o female with a blank stare and parched mucous membranes tries to answer but drifts off before a response is made. ) - HEENT HEENT: Atraumatic, PERRL, EOMI, Other (parched mucous membranes ) - Neck Neck: Supple, no meningeal sign, No bony TTP - Cardiac Cardiac: No murmur, Other (tachy) - Respiratory Respiratory: No respiratory distress, Clear bilaterally - Abdomen Abdomen: Soft, Non tender - Back Back: No CVA TTP, No spinal TTP - Derm Derm: Normal color, Warm and dry, No rash - Extremities Extremities: Other (There is an external fixator on the right ankle and fresh surgical scars as well as a harvest site on the right anterior lateral thigh for skin grafting. The left lower extremity is abraded extensively and this appears to be related to the external fixator rubbing against her leg.) - Neuro Neuro: No motor deficit, No sensory deficit Eye Opening: Spontaneous Motor: Obeys Commands Verbal: Confused GCS Score: 14 - Psych Psych: Other (Mood is withdrawn and the affect is flat.) Results - Vitals Vitals: Vital Signs - 24 hr 10/14/19 10/14/19 10/14/19 07:47 08:16 08:59 Temperature 36.9 C Heart Rate 101 H 102 H 92 Respiratory 19 19 22 Rate Blood Pressure 114/70 105/58 L 101/84 H O2 Saturation 96 99 96 10/14/19 10/14/19 10/14/19 09:52 10:00 11:24 Temperature Heart Rate 99 100 115 H Respiratory 16 24 20 Rate Blood Pressure 121/62 108/62 125/78 O2 Saturation 100 99 100 10/14/19 10/14/19 10/14/19 11:53 12:00 12:30 Temperature Heart Rate 103 H 95 93 Respiratory 21 14 23 Rate Blood Pressure 121/106 H 140/59 H 100/51 L O2 Saturation 98 97 98 Oxygen O2 Source Room air - EKG (time done) 0804 Rate: Rate (enter#) (99) Rhythm: Sinus tachycardia QRS: Low voltage Compare to prior EKG: Changed from prior EKG (09-21-2019 rate has increased.) Computer interpretation: Agree with computer - Labs Labs: Laboratory Tests 10/14/19 10/14/19 10/14/19 08:18 08:18 08:18 WBC 13.9 H RBC 3.44 L Hgb 9.1 L Hct 31.1 L MCV 90.4 MCH 26.5 L MCHC 29.3 L RDW 18.8 H Plt Count 371 MPV 11.6 H Neut # (Auto) 12.6 H Lymph # (Auto) 0.3 L Carbon # (Auto) 0.8 Eos # (Auto) 0.0 Baso # (Auto) 0.0 Absolute Nucleated RBC 0.00 Nucleated RBC % 0.0 VBG pH VBG pCO2 VBG pO2 VBG HCO3 VBG Total CO2 VBG O2 Saturation VBG Base Excess Sodium 132 L Potassium 6.0 H* Chloride 95 L Carbon Dioxide 17 L Anion Gap 20.0 H BUN 29 H Creatinine 1.5 H Estimated GFR (MDRD) 37 L Glucose 971 H* POC Whole Bld Glucose Lactic Acid 1.7 Calcium 9.0 Total Bilirubin 1.2 H AST 13 ALT 14 Alkaline Phosphatase 95 Total Protein 7.3 Albumin 3.5 Globulin 3.8 Albumin/Globulin Ratio 0.9 L Lipase 59 H Urine Color Urine Clarity Urine pH Ur Specific [place] Urine Protein Urine Glucose (UA) Urine Ketones Urine Occult Blood Urine Nitrite Urine Bilirubin Urine Urobilinogen Ur Leukocyte Esterase Ur Microscopic Review Urine Culture Comments Urine HCG, Qual Salicylates Urine Opiates Screen Ur Oxycodone Screen Urine Methadone Screen Ur Propoxyphene Screen Acetaminophen Ur Barbiturates Screen Ur Tricyclics Screen Ur Phencyclidine Scrn Ur Amphetamine Screen U Methamphetamines Scrn U Benzodiazepines Scrn Urine Cocaine Screen U Cannabinoids Screen Ethyl Alcohol Serum Ketones 10/14/19 10/14/19 10/14/19 08:18 08:18 08:18 WBC RBC Hgb Hct MCV MCH MCHC RDW Plt Count MPV Neut # (Auto) Lymph # (Auto) Carbon # (Auto) Eos # (Auto) Baso # (Auto) Absolute Nucleated RBC Nucleated RBC % VBG pH 7.307 L VBG pCO2 34.1 L VBG pO2 46.4 VBG HCO3 16.7 L VBG Total CO2 17.7 L VBG O2 Saturation 80.4 H VBG Base Excess -8.7 L Sodium Potassium Chloride Carbon Dioxide Anion Gap BUN Creatinine Estimated GFR (MDRD) Glucose POC Whole Bld Glucose Lactic Acid Calcium Total Bilirubin AST ALT Alkaline Phosphatase Total Protein Albumin Globulin Albumin/Globulin Ratio Lipase Urine Color Urine Clarity Urine pH Ur Specific [place] Urine Protein Urine Glucose (UA) Urine Ketones Urine Occult Blood Urine Nitrite Urine Bilirubin Urine Urobilinogen Ur Leukocyte Esterase Ur Microscopic Review Urine Culture Comments Urine HCG, Qual Salicylates < 6.0 Urine Opiates Screen Ur Oxycodone Screen Urine Methadone Screen Ur Propoxyphene Screen Acetaminophen < 10 L Ur Barbiturates Screen Ur Tricyclics Screen Ur Phencyclidine Scrn Ur Amphetamine Screen U Methamphetamines Scrn U Benzodiazepines Scrn Urine Cocaine Screen U Cannabinoids Screen Ethyl Alcohol 7.9 Serum Ketones SMALL H 10/14/19 10/14/19 10/14/19 08:52 11:07 12:20 WBC RBC Hgb Hct MCV MCH MCHC RDW Plt Count MPV Neut # (Auto) Lymph # (Auto) Carbon # (Auto) Eos # (Auto) Baso # (Auto) Absolute Nucleated RBC Nucleated RBC % VBG pH VBG pCO2 VBG pO2 VBG HCO3 VBG Total CO2 VBG O2 Saturation VBG Base Excess Sodium Potassium Chloride Carbon Dioxide Anion Gap BUN Creatinine Estimated GFR (MDRD) Glucose POC Whole Bld Glucose 478 H 341 H Lactic Acid Calcium Total Bilirubin AST ALT Alkaline Phosphatase Total Protein Albumin Globulin Albumin/Globulin Ratio Lipase Urine Color YELLOW Urine Clarity CLEAR Urine pH 5.5 Ur Specific [place] <=1.005 Urine Protein NEGATIVE Urine Glucose (UA) >=1000 H Urine Ketones 15 H Urine Occult Blood NEGATIVE Urine Nitrite NEGATIVE Urine Bilirubin NEGATIVE Urine Urobilinogen 0.2 (NORMAL) Ur Leukocyte Esterase NEGATIVE Ur Microscopic Review NOT INDICATED Urine Culture Comments NOT INDICATED Urine HCG, Qual NEGATIVE Salicylates Urine Opiates Screen NEGATIVE Ur Oxycodone Screen NEGATIVE Urine Methadone Screen NEGATIVE Ur Propoxyphene Screen NEGATIVE Acetaminophen Ur Barbiturates Screen POSITIVE H Ur Tricyclics Screen NEGATIVE Ur Phencyclidine Scrn NEGATIVE Ur Amphetamine Screen NEGATIVE U Methamphetamines Scrn NEGATIVE U Benzodiazepines Scrn NEGATIVE Urine Cocaine Screen NEGATIVE U Cannabinoids Screen NEGATIVE Ethyl Alcohol Serum Ketones PD MEDICAL DECISION MAKING - ED course Complexity details: reviewed old records, reviewed results, re-evaluated patient, considered differential, d/w patient ED course: 44 y/o female with DM 1 on insulin has ketoacidosis today with sugar in the 900 range. She has altered mental status and is recovering from a surgical procedure. An IV is begun with saline and an insulin drip at 6 units per hour. There is question of narcotic overdose but here in the ED the patient is not exhibiting respiratory depression. She is more animated after fluid infused but remains altered. Dr. Garcia is consulted in the case and will care for the patient in the CCU. We were not able to confirm the placement of the external fixitor. Departure - Departure Disposition: [facility] DC/Xfer Clinical Impression: DM type 1 (diabetes mellitus, type 1) Qualifiers: Diabetes mellitus complication status: with ketoacidosis Diabetes mellitus complication detail: without coma Qualified Code(s): E10.10 - Type 1 diabetes mellitus with ketoacidosis without coma Opiate dependence Qualifiers: Substance use status: with unspecified opioid-induced disorder Qualified Code(s): F11.29 - Opioid dependence with unspecified opioid-induced disorder Discharge Date/Time: 10/14/19 13:22
[2019-10-14] MEDS: INSULIN REGULAR HUMAN 100 UNIT in SODIUM CHLORIDE 0.9% 100ML 99 ML IV SCH (13:30)
[2019-10-14] MEDS: SODIUM CHLORIDE 0.9% 1,000 ML IV SCH ×2 (13:40→22:58)
[2019-10-14 13:45] LABS: BUN - BLOOD UREA NITROGEN 24 mg/dL (6-20); CARBON DIOXIDE - CO2 23 mmol/L (21-32); CHLORIDE 111 mmol/L (101-111); CREATININE 1.2 mg/dL (0.4-1.0); GFR - MDRD 48 (>89); GLUCOSE 204 mg/dL (70-100); MAGNESIUM 2.3 mg/dL (1.7-2.8); SODIUM 146 mmol/L (135-145)
[2019-10-14 13:49] LABS: KETONES, SERUM (ACETEST) SMALL (NEGATIVE)
[2019-10-14 13:54] LABS: HB2 TOTAL 9.3 g/dL; HEMOGLOBIN A1C 0.58 g/dL; HEMOGLOBIN A1C % 7.9 % (4.6-6.2)
[2019-10-14 14:09] LABS: KETONES, SERUM (ACETEST) SMALL (NEGATIVE)
[2019-10-14 14:14] LABS: BUN - BLOOD UREA NITROGEN 22 mg/dL (6-20); CARBON DIOXIDE - CO2 22 mmol/L (21-32); CHLORIDE 111 mmol/L (101-111); CREATININE 1.1 mg/dL (0.4-1.0); GFR - MDRD 53 (>89); GLUCOSE 156 mg/dL (70-100); MAGNESIUM 2.2 mg/dL (1.7-2.8); SODIUM 146 mmol/L (135-145)
[2019-10-14] MEDS: DEXTROSE 5%-0.9% NACL 1,000 ML IV SCH ×2 (14:30→23:33)
[2019-10-14 16:10] LABS: VBG BASE EXCESS -1.6 mmol/L (-2 - +2); VBG PCO2 35.2 mmHg (41-51); VBG PH 7.422 (7.31-7.41); VBG PO2 74.1 mmHg (25-47); VBG TOTAL CO2 23.5 mmol/L (24-29)
[2019-10-14 16:11] LABS: KETONES, SERUM (ACETEST) NEGATIVE (NEGATIVE)
[2019-10-14 16:14] LABS: BUN - BLOOD UREA NITROGEN 19 mg/dL (6-20); CALCIUM 9.1 mg/dL (8.5-10.3); CARBON DIOXIDE - CO2 23 mmol/L (21-32); CHLORIDE 112 mmol/L (101-111); GFR - MDRD 60 (>89); GLUCOSE 75 mg/dL (70-100); SODIUM 146 mmol/L (135-145)
[2019-10-14] MEDS: SODIUM CHLORIDE FLUSH 0.9% 10 ML SYRINGE IVP SCH ×3 (17:00→22:47)
[2019-10-14 18:12] LABS: KETONES, SERUM (ACETEST) NEGATIVE (NEGATIVE)
[2019-10-14] MEDS: LORazepam 2 MG/ML VIAL IVP PRN ×5 (18:28→23:55)
[2019-10-14 18:51] LABS: GLUCOSE 142 mg/dL (70-100)
--- NOTE | 2019-10-14 21:10 | HISTORY & PHYSICAL EXAMINATION ---
DATE OF SERVICE: 10/14/2019 Physician: Saira Bird MD HISTORY OF PRESENT ILLNESS: This is a 44-year-old white female with a history of type 1 diabetes on an insulin pump, prior episodes of DKA; she has peripheral neuropathy. She had presented with a fall and suffered a complex ankle fracture approximately a month ago and she did not feel this, even with bleeding and her bone coming out through her skin. She was admitted then and underwent ankle surgery by Orthopedics, was advised multiple times that she needs careful management with 3 months of nonweightbearing status. It is unclear if she was compliant with that order. There have been episodes of hypoglycemia in her record. She presents now when a family member called an ambulance because she was obtunded. The ambulance personnel found a new bottle of oxycodone that was just filled yesterday with 28 pills missing. She was brought to the emergency room, and workup there showed that she is in DKA with a glucose level of over 900, pH of 7.3, high anion gap, and she was obtunded. She was found to have a different type of surgery to that old ankle fracture with external rods and was able to whisper to the emergency room doctor "Dori Rider." The records are not available yet to determine what was done or the history of that. She is now being admitted to the ICU for a DKA protocol and possible overdose of codeine. PAST MEDICAL HISTORY: Type 1 diabetes; she is on an insulin pump, opiate dependence, depression history, chronic pain with fibromyalgia history, history of seizures, smoker, hypothyroidism. ALLERGIES 1. CARISOPRODOL. 2. DIVALPROEX. 3. GABAPENTIN. 4. LIDOCAINE. 5. MACRODANTIN. 6. NORTRIPTYLINE. 7. ZOFRAN. 8. LYRICA. MEDICATIONS 1. Insulin pump. 2. Metoclopramide before meals and at bedtime. 3. Adderall 20 mg daily. 4. Aspirin 325 mg b.i.d. 5. Oxycodone 10 mg q.i.d. scheduled. 6. Ditropan 5 mg daily. 7. Synthroid 112 mcg daily. 8. Protonix daily. 9. Prazosin 5 mg every night. 10. Spironolactone 100 mg daily. 11. Lexapro 40 mg daily. 12. Cymbalta 120 mg daily. 13. Dicyclomine 20 mg q.i.d. p.r.n. 14. Clonazepam 1 mg t.i.d. p.r.n. 15. Fioricet every 4 hours p.r.n. 16. Baclofen 10 mg q.i.d. p.r.n. 17. Simvastatin 20 mg every night. 18. Trazodone 200 mg every night. 19. Iron 240 mg orally daily. 20. B12 replacement daily. 21. Nicotine patch, question if she is using this. REVIEW OF SYSTEMS: A limited review of systems was done by chart review; they are listed above. The rest is unobtainable because of her obtunded status. FAMILY HISTORY: No inherited diseases. SOCIAL HISTORY: She is a smoker, has had depression and potential overdoses in the past and drug-seeking behavior. PHYSICAL EXAMINATION GENERAL: Obtunded white female. She is supine and appears in no distress. VITAL SIGNS: Blood pressure 160/100, heart rate 100-110 in sinus tachycardia, afebrile, room air saturation 98%. HEENT: Reveals that she has very dry oral mucosa. NECK: No JVD. CHEST: Clear. HEART: Tachycardic. No murmur. ABDOMEN: Soft. No guarding or rebound. No organomegaly. EXTREMITIES: The right ankle has a bandage as well as an external marisol. NEUROLOGIC: Currently obtunded. LABORATORY DATA: Sodium 132, potassium 6.0, BUN 29, creatinine 1.5, glucose 971. Bilirubin 1.2. Normal liver tests. Lipase 59. Lactic acid 1.7. White blood count 13.9, hemoglobin 9 with MCV normal, platelet count 371. Urinalysis unremarkable. Nasal screen for MRSA is negative. Her urine drug screen was positive for barbiturates. Her serum ketones were positive and small. Her serum alcohol level was present at 7.9, no Tylenol and no aspirin on her drug screen. IMPRESSION/DIAGNOSES 1. Diabetic ketoacidosis. 2. Overdose of codeine, unknown if this was intentional or accidental. 3. Altered mental status. 4. Anemia. 5. Opiate dependence. 6. History of ankle surgery. 7. Chronic pain. 8. Hypothyroidism. 9. Depression. 10. History of seizures. 11. Smoker. PLAN: Admit the patient to the ICU on telemetry, start a DKA protocol with IV fluids aggressively, IV insulin, n.p.o. status and advance her diet when she is more awake. As she awakens, start on one-to-one observation because of potential suicide attempt. Contact Poison Control regarding this history and any further recommendations from them. Start her oral medications when she is more awake. Obtain records regarding a redo of the ankle surgery. Social Work consult regarding mental health if this was an intentional overdose. CODE STATUS: DNR. DEEP VENOUS THROMBOSIS PROPHYLAXIS: SCDs. ATTESTATION: The patient is expected to be discharged or transferred to another facility within 96 hours: Yes. TD: 10/14/2019 20:32 ALICIA
[2019-10-14] MEDS: SODIUM CHLORIDE FLUSH 0.9% 10 ML SYRINGE IVP PRN ×2 (21:14→22:55)
[2019-10-14] MEDS: FAMOTIDINE 20 MG/2 ML VIAL IVP SCH (22:47)
[2019-10-15] MEDS ORDERED: HALOPERIDOL 5 MG/ML VIAL IVP PRN (01:36)
[2019-10-15] MEDS ORDERED: DEXTROSE 10% 250 ML IV STA (02:40)
[2019-10-15] MEDS: SODIUM CHLORIDE FLUSH 0.9% 10 ML SYRINGE IVP PRN ×8 (02:58→20:45)
[2019-10-15 04:58] LABS: KETONES, SERUM (ACETEST) NEGATIVE (NEGATIVE)
[2019-10-15 05:16] LABS: BUN - BLOOD UREA NITROGEN 12 mg/dL (6-20); CALCIUM 7.1 mg/dL (8.5-10.3); CARBON DIOXIDE - CO2 19 mmol/L (21-32); CHLORIDE 114 mmol/L (101-111); CREATININE 0.8 mg/dL (0.4-1.0); GFR - MDRD 77 (>89); MAGNESIUM 1.6 mg/dL (1.7-2.8); PHOSPHORUS 1.9 mg/dL (2.5-4.6); SODIUM 142 mmol/L (135-145)
[2019-10-15 05:17] LABS: BASOPHILS % (AUTO) 0.5 %; EOSINOPHILS % (AUTO) 0.3 %; HGB - HEMOGLOBIN 7.7 g/dL (12.0-16.0); LYMPHOCYTES # (AUTO) 1.4 10^3/uL (1.5-3.5); MEAN CORPUSCULAR HEMOGLOBIN 27.2 pg (27.0-31.0); MEAN CORPUSCULAR HGB CONC 30.7 g/dL (32.0-36.0); MEAN CORPUSCULAR VOLUME 88.7 fL (81.0-99.0); MEAN PLATELET VOLUME 10.7 fL (7.9-10.8); MONOCYTES # (AUTO) 0.6 10^3/uL (0.0-1.0); MONOCYTES % (AUTO) 8.1 %; NEUTROPHILS # (AUTO) 5.7 10^3/uL (1.5-6.6); NEUTROPHILS % (AUTO) 72.5 %; PLT - PLATELET COUNT 286 10^3/uL (130-450); RED BLOOD COUNT 2.83 10^6/uL (4.20-5.40); RED CELL DISTRIBUTION WIDTH 19.3 % (12.0-15.0); WHITE BLOOD COUNT 7.9 x10^3/uL (4.8-10.8)
[2019-10-15 05:18] LABS: GLUCOSE 770 mg/dL (70-100)
[2019-10-15 06:30] LABS: CALCIUM 8.4 mg/dL (8.5-10.3); CREATININE 0.8 mg/dL (0.4-1.0)
[2019-10-15] MEDS: LORazepam 2 MG/ML VIAL IVP PRN ×11 (07:15→18:50)
[2019-10-15] MEDS: DEXTROSE 5%-0.9% NACL 1,000 ML IV SCH ×4 (07:30→23:20)
[2019-10-15] MEDS: POTASSIUM CHLOR 20 MEQ/100 ML 20 MEQ/100 ML BAG IV SCH ×2 (07:35→08:38)
[2019-10-15] MEDS ORDERED: MAGNESIUM SULFATE 2 GRAM 2 GM/50 ML BAG IV ONE (08:00)
[2019-10-15] MEDS: SODIUM CHLORIDE 0.9% 1,000 ML IV SCH ×3 (08:01→21:27)
[2019-10-15] MEDS: FAMOTIDINE 20 MG/2 ML VIAL IVP SCH ×2 (09:15→20:45)
[2019-10-15] MEDS: ENOXAPARIN 40 MG/0.4 ML SYRINGE SUBQ SCH (09:15)
[2019-10-15] MEDS: SODIUM CHLORIDE FLUSH 0.9% 10 ML SYRINGE IVP SCH ×2 (09:16→17:08)
--- NOTE | 2019-10-15 11:23 | PROVIDER PROGRESS NOTE ---
Assessment/Plan - Problem List (1) Altered mental status Assessment/Plan: She had no codeine in tox screen, despite the concern that she may have taken an OD. A CIWA scale has been started for poss alcohol withdrawal Now that she can drink liquids, will resume her psych meds, which she may be uncomfortable being off of for >1 day (2) DM type 1 (diabetes mellitus, type 1) Qualifiers: Diabetes mellitus complication status: with ketoacidosis Diabetes mellitus complication detail: without coma Qualified Code(s): E10.10 - Type 1 diabetes mellitus with ketoacidosis without coma Assessment/Plan: ss Insulin and iv glu, since she is not alert enough to start a diet (3) Campylobacter diarrhea Assessment/Plan: She is now on contact precautions (4) Opiate dependence Qualifiers: Substance use status: with unspecified opioid-induced disorder Qualified Code(s): F11.29 - Opioid dependence with unspecified opioid-induced disorder Assessment/Plan: Restarting her pain meds carefully, so as not to over sedate (5) Alcohol use Assessment/Plan: CIWA protocol and prn Ativan Banana bag iv for hydration (6) Anemia Assessment/Plan: She was on home Iron replacement Monitor H/H (7) History of ankle surgery Assessment/Plan: She does nod yes to pain questions. Will resume her pain meds (8) Hypothyroidism Assessment/Plan: Resume her po Thyroid dose (9) Depression Assessment/Plan: Resume her psych meds (10) Smoker Assessment/Plan: Nicotine patch ordered (11) DKA (diabetic ketoacidosis) Assessment/Plan: Resolved - Current Meds Current Meds: Current Medications Generic Name Dose Route Start Last Admin Trade Name Freq PRN Reason Stop Dose Admin Enoxaparin Sodium 40 mg 10/15/19 09:00 10/15/19 09:15 Lovenox SUBQ 40 mg DAILY SHELL Administration Famotidine 20 mg 10/14/19 21:00 10/15/19 09:15 Pepcid IVP 20 mg BID SHELL Administration Haloperidol 0.5 mg 10/15/19 01:36 10/15/19 03:52 Haldol Inj IVP 0.5 mg Q6H PRN Administration Agitation Dextrose/Sodium Chloride 1,000 mls @ 125 mls/hr 10/14/19 13:00 10/15/19 11:00 D5ns IV 125 mls/hr .Q8H SHELL Infusion Insulin Human Regular 100 unit 100 mls @ 7.26 mls/hr 10/14/19 13:30 10/15/19 11:00 / Sodium Chloride IV 1 unit/hr .[id number] SHELL 1 mls/hr Titration Protocol 7.26 UNIT/HR Sodium Chloride 1,000 mls @ 125 mls/hr 10/14/19 13:00 10/15/19 08:01 Normal Saline 0.9% IV Not Given .Q8H SHELL Lorazepam 1 mg 10/14/19 18:08 10/15/19 10:31 Ativan Inj (Vial) IVP 1 mg Q1H PRN Administration CIWA >8 Protocol Sodium Chloride 10 ml 10/14/19 17:00 10/15/19 09:16 Normal Saline Flush 0.9% IVP 10 ml 0100,0900,1700 SHELL Administration Sodium Chloride 10 ml 10/14/19 12:44 10/15/19 10:33 Normal Saline Flush 0.9% IVP 10 ml PRN PRN Administration NEEDED PER PROVIDER ORDERS Sodium Chloride 20 ml 10/15/19 03:04 10/15/19 04:53 Normal Saline Flush 0.9% IVP 20 ml PRN PRN Administration After Blood Draw - Lab Result Fish Bone Diagrams: 10/15/19 04:50 10/15/19 05:52 - Additional Planning My Orders: My Active Orders 10/14/19 12:44 Activity Orders [RC] Q2HR Daily Weight [RC] 0600 IO [RC] Q1HR Initiate Flu Vaccine Screening [RC] ONCE Initiate ICU Electrolyte Prot. [RC] .protocol Initiate Line Care Protocol [RC] .protocol Initiate Personal Care Protoco [RC] .protocol Initiate Pneumonia Vaccine Scr [RC] ONCE Initiate Secretion Clearance P [RC] .PROTOCOL Vital Signs [RC] Q2HR Prochlorperazine Inj [Compazine Inj] 10 mg IVP Q6HR PRN Sodium Chloride Flush 0.9% [Normal Saline Flush 0.9%] 10 ml IVP PRN PRN Code Status [OTHERS] Routine Condition of Patient [OTHERS] Routine DVT Prophylaxis [OTHERS] Routine 10/14/19 12:45 Valdez Insertion [RC] Routine Telemetry- [RC] Q4HR Turn, Cough and Deep Breathe [RC] Routine 10/14/19 12:46 Oral Care - Nursing [RC] Routine Oxygen Therapy [RC] .PRN Turn and Reposition [RC] Routine 10/14/19 12:48 Initiate Line Care Protocol [RC] QSHIFT 10/14/19 12:49 Initiate DKA RN Protocol [RC] .protocol Initiate Hypoglycemia Protocol [RC] .protocol 10/14/19 12:50 Blood Glucose POC [RC] 0000,0600,1200,1800 Notify Provider - Specific Ins [RC] PRN 10/14/19 12:53 Miscellaenous Nursing Order [RC] ONCE 10/14/19 13:00 Dextrose 5%-0.9% NaCl [D5ns] 1,000 ml IV 125 mls/hr Sodium Chloride 0.9% [Normal Saline 0.9%] 1,000 ml IV 125 mls/hr 10/14/19 13:30 Sodium Chloride 0.9% 100Ml [Normal Saline 0.9% 100Ml] 99 ml Insulin Regular Human [NovoLIN R] 100 unit IV 7.26 unit/hr 10/14/19 17:00 Sodium Chloride Flush 0.9% [Normal Saline Flush 0.9%] 10 ml IVP 0100,0900,1700 10/14/19 18:08 1:1 Observation [RC] once CIWA - AR Score Card [RC] Routine Routine Neuro Check [RC] Routine Routine LORazepam INJ [Ativan Inj (Vial)] 1 mg IVP Q1H PRN 10/14/19 21:00 Famotidine [Pepcid] 20 mg IVP BID 10/14/19 Dinner Clear Liquid Diet [DIET] 10/15/19 03:04 Sodium Chloride Flush 0.9% [Normal Saline Flush 0.9%] 20 ml IVP PRN PRN 10/15/19 07:58 CUL, STOOL [CULTURE, STOOL] [RM] Urgent 10/15/19 09:00 Enoxaparin [Lovenox] 40 mg SUBQ DAILY 10/15/19 12:00 Potassium Phosphate 15 mmol Sodium Chloride 0.9% [Normal Saline 0.9%] 250 ml IV ONCE 10/16/19 05:00 BMP - BASIC METABOLIC PANEL [CHEM] DAILYLAB CBC - COMP BLD CT W/AUTO DIFF [HEME] DAILYLAB 10/17/19 05:00 BMP - BASIC METABOLIC PANEL [CHEM] DAILYLAB CBC - COMP BLD CT W/AUTO DIFF [HEME] DAILYLAB Subjective - Subjective Patient Reports: Pain, Other (Fidgety, sits up, pulls at sheets, nods answers) Nursing Reports: Confused, Other (Able to awaken to drink liquids) Objective Vital Signs: Vital Signs - 24 hr 10/14/19 10/14/19 10/14/19 11:24 11:53 12:00 Temperature Heart Rate 115 H 103 H 95 Heart Rate [ Monitoring electrodes] Respiratory 20 21 14 Rate Blood Pressure 125/78 121/106 H 140/59 H Blood Pressure [Right Brachial artery] O2 Saturation 100 98 97 10/14/19 10/14/19 10/14/19 12:30 13:00 15:00 Temperature Heart Rate 93 Heart Rate [ 91 103 H Monitoring electrodes] Respiratory 23 22 24 Rate Blood Pressure 100/51 L Blood Pressure 116/60 106/64 [Right Brachial artery] O2 Saturation 98 98 100 10/14/19 10/14/19 10/14/19 16:17 17:00 18:00 Temperature 36.7 C Heart Rate Heart Rate [ 107 H 101 H Monitoring electrodes] Respiratory 17 21 Rate Blood Pressure Blood Pressure 113/84 H 164/111 H [Right Brachial artery] O2 Saturation 98 98 10/14/19 10/14/19 10/14/19 19:00 21:00 23:00 Temperature 36.9 C Heart Rate Heart Rate [ 109 H 107 H 80 Monitoring electrodes] Respiratory 19 20 24 Rate Blood Pressure Blood Pressure 143/71 H 123/69 124/69 [Right Brachial artery] O2 Saturation 96 98 98 10/15/19 10/15/19 10/15/19 00:58 02:48 05:00 Temperature 36.9 C Heart Rate Heart Rate [ 92 79 75 Monitoring electrodes] Respiratory 18 24 25 H Rate Blood Pressure Blood Pressure 127/83 H 121/72 114/61 [Right Brachial artery] O2 Saturation 100 100 98 10/15/19 10/15/19 10/15/19 07:00 09:00 11:00 Temperature 37.3 C 36.8 C Heart Rate Heart Rate [ 99 108 H 105 H Monitoring electrodes] Respiratory 20 24 24 Rate Blood Pressure Blood Pressure 135/77 H 123/70 136/81 H [Right Brachial artery] O2 Saturation 98 97 97 Oxygen O2 Source Room air I&O (Last 24 Hrs): Intake and Output Totals x24h 10/13/19 10/14/19 10/15/19 23:59 23:59 23:59 Intake Total 1803.733 1380.942 Output Total 375 0 Balance 2018.602 2028.942 General: Other (Altered) HEENT: Other (Severely dry mucosa) Neck: Supple Neuro: Non Focal, Other (Altered) Cardiovascular: Regular rate Respiratory: No respiratory distress Abdomen: Soft Extremities: No edema, Other (R foot has external rods) - Results Results: Laboratory Results WBC 7.9 x10^3/uL (4.8-10.8) 10/15/19 04:50 RBC 2.83 10^6/uL (4.20-5.40) L 10/15/19 04:50 Hgb 7.7 g/dL (12.0-16.0) L 10/15/19 04:50 Hct 25.1 % (37.0-47.0) L 10/15/19 04:50 MCV 88.7 fL (81.0-99.0) 10/15/19 04:50 MCH 27.2 pg (27.0-31.0) 10/15/19 04:50 MCHC 30.7 g/dL (32.0-36.0) L 10/15/19 04:50 RDW 19.3 % (12.0-15.0) H 10/15/19 04:50 Plt Count 286 10^3/uL (130-450) 10/15/19 04:50 MPV 10.7 fL (7.9-10.8) 10/15/19 04:50 Neut # (Auto) 5.7 10^3/uL (1.5-6.6) 10/15/19 04:50 Lymph # (Auto) 1.4 10^3/uL (1.5-3.5) L 10/15/19 04:50 [place] # (Auto) 0.6 10^3/uL (0.0-1.0) 10/15/19 04:50 Eos # (Auto) 0.0 10^3/uL (0.0-0.7) 10/15/19 04:50 Baso # (Auto) 0.0 10^3/uL (0.0-0.1) 10/15/19 04:50 Absolute Nucleated RBC 0.00 x10^3/uL 10/15/19 04:50 Nucleated RBC % 0.0 /100WBC 10/15/19 04:50 VBG pH 7.422 (7.31-7.41) H 10/14/19 16:00 VBG pCO2 35.2 mmHg (41-51) L 10/14/19 16:00 VBG pO2 74.1 mmHg (25-47) H 10/14/19 16:00 VBG HCO3 22.4 mmol/L (23-28) L 10/14/19 16:00 VBG Total CO2 23.5 mmol/L (24-29) L 10/14/19 16:00 VBG O2 Saturation 94.7 % (60-80) H 10/14/19 16:00 VBG Base Excess -1.6 mmol/L (-2 - +2) 10/14/19 16:00 Sodium 142 mmol/L (135-145) 10/15/19 05:52 Potassium 3.0 mmol/L (3.5-5.0) L 10/15/19 05:52 Chloride 111 mmol/L (101-111) 10/15/19 05:52 Carbon Dioxide 20 mmol/L (21-32) L 10/15/19 05:52 Anion Gap 11.0 (6-13) 10/15/19 05:52 BUN 14 mg/dL (6-20) 10/15/19 05:52 Creatinine 0.8 mg/dL (0.4-1.0) 10/15/19 05:52 Estimated GFR (MDRD) 77 (>89) L 10/15/19 05:52 Glucose 286 mg/dL (70-100) H 10/15/19 05:52 POC Whole Bld Glucose 95 mg/dL (70 - 100) 10/15/19 11:02 Glycated Hemoglobin 7.9 % (4.6-6.2) H 10/14/19 13:33 Estim Average Glucose 180 (70-100) H 10/14/19 13:33 Lactic Acid 1.7 mmol/L (0.5-2.2) 10/14/19 08:18 Calcium 8.4 mg/dL (8.5-10.3) L 10/15/19 05:52 Phosphorus 1.9 mg/dL (2.5-4.6) L 10/15/19 04:04 Magnesium 1.6 mg/dL (1.7-2.8) L 10/15/19 04:04 Total Bilirubin 1.2 mg/dL (0.2-1.0) H 10/14/19 08:18 AST 13 IU/L (10-42) 10/14/19 08:18 ALT 14 IU/L (10-60) 10/14/19 08:18 Alkaline Phosphatase 95 IU/L (42-121) 10/14/19 08:18 Total Protein 7.3 g/dL (6.7-8.2) 10/14/19 08:18 Albumin 3.5 g/dL (3.2-5.5) 10/14/19 08:18 Globulin 3.8 g/dL (2.1-4.2) 10/14/19 08:18 Albumin/Globulin Ratio 0.9 (1.0-2.2) L 10/14/19 08:18 Lipase 59 U/L (22-51) H 10/14/19 08:18 Urine Color YELLOW 10/14/19 08:52 Urine Clarity CLEAR (CLEAR) 10/14/19 08:52 Urine pH 5.5 PH (5.0-7.5) 10/14/19 08:52 Ur Specific [place] <=1.005 (1.002-1.030) 10/14/19 08:52 Urine Protein NEGATIVE mg/dL (NEGATIVE) 10/14/19 08:52 Urine Glucose (UA) >=1000 mg/dL (NEGATIVE) H 10/14/19 08:52 Urine Ketones 15 mg/dL (NEGATIVE) H 10/14/19 08:52 Urine Occult Blood NEGATIVE (NEGATIVE) 10/14/19 08:52 Urine Nitrite NEGATIVE (NEGATIVE) 10/14/19 08:52 Urine Bilirubin NEGATIVE (NEGATIVE) 10/14/19 08:52 Urine Urobilinogen 0.2 (NORMAL) E.U./dL (NORMAL) 10/14/19 08:52 Ur Leukocyte Esterase NEGATIVE (NEGATIVE) 10/14/19 08:52 Ur Microscopic Review NOT INDICATED 10/14/19 08:52 Urine Culture Comments NOT INDICATED 10/14/19 08:52 Urine HCG, Qual NEGATIVE 10/14/19 08:52 Nasal Screen MRSA (PCR) NEGATIVE (NEGATIVE) 10/14/19 14:00 Salicylates < 6.0 mg/dL 10/14/19 08:18 Urine Opiates Screen NEGATIVE (NEGATIVE) 10/14/19 08:52 Ur Oxycodone Screen NEGATIVE (NEGATIVE) 10/14/19 08:52 Urine Methadone Screen NEGATIVE (NEGATIVE) 10/14/19 08:52 Ur Propoxyphene Screen NEGATIVE (NEGATIVE) 10/14/19 08:52 Acetaminophen < 10 ug/mL (10-30) L 10/14/19 08:18 Ur Barbiturates Screen POSITIVE (NEGATIVE) H 10/14/19 08:52 Ur Tricyclics Screen NEGATIVE (NEGATIVE) 10/14/19 08:52 Ur Phencyclidine Scrn NEGATIVE (NEGATIVE) 10/14/19 08:52 Ur Amphetamine Screen NEGATIVE (NEGATIVE) 10/14/19 08:52 U Methamphetamines Scrn NEGATIVE (NEGATIVE) 10/14/19 08:52 U Benzodiazepines Scrn NEGATIVE (NEGATIVE) 10/14/19 08:52 Urine Cocaine Screen NEGATIVE (NEGATIVE) 10/14/19 08:52 U Cannabinoids Screen NEGATIVE (NEGATIVE) 10/14/19 08:52 Ethyl Alcohol 7.9 mg/dL 10/14/19 08:18 Serum Ketones NEGATIVE (NEGATIVE) 10/15/19 04:04 - Procedures Procedures: Procedures EXCISION OF STOMACH, ENDO, DIAGN (05/24/18) INSPECTION OF LOWER INTESTINAL TRACT, ENDO (05/24/18) REPOSITION RIGHT FIBULA WITH INT FIX, OPEN APPROACH (09/15/19) REPOSITION RIGHT TIBIA WITH INT FIX, OPEN APPROACH (09/15/19) TRANSFUSE NONAUT RED BLOOD CELLS IN PERIPH VEIN, PERC (09/15/19)
[2019-10-15] MEDS: NICOTINE 14 MG PATCH TOP SCH (11:54)
[2019-10-15] MEDS ORDERED: POTASSIUM PHOSPHATE 15 MMOL in SODIUM CHLORIDE 0.9% 250 ML IV ONE (12:00)
[2019-10-15] MEDS ORDERED: oxyCODONE 5 MG TABLET PO SCH (17:19)
[2019-10-15] MEDS: ASPIRIN 325 MG TABLET PO SCH (17:23)
[2019-10-15] MEDS: oxyCODONE 5 MG TABLET PO PRN (17:27)
[2019-10-15] MEDS: PRAZOSIN 1 MG CAPSULE PO SCH (20:44)
[2019-10-15] MEDS: traZODone 50 MG TABLET PO SCH (20:44)
[2019-10-15] MEDS: METOCLOPRAMIDE 10 MG TABLET PO SCH (20:47)
[2019-10-15] MEDS: INSULIN REGULAR HUMAN 100 UNIT in SODIUM CHLORIDE 0.9% 100ML 99 ML IV SCH ×2 (21:00→21:26)
[2019-10-16] MEDS: BUTALB/ACETAM/CAFF 50/325/40MG TABLET PO PRN (00:17)
[2019-10-16] MEDS: SODIUM CHLORIDE FLUSH 0.9% 10 ML SYRINGE IVP SCH ×4 (00:18→23:41)
[2019-10-16] MEDS: INSULIN REGULAR HUMAN 100 UNIT in SODIUM CHLORIDE 0.9% 100ML 99 ML IV SCH (02:04)
[2019-10-16] MEDS: SODIUM CHLORIDE 0.9% 1,000 ML IV SCH (05:10)
[2019-10-16] MEDS: SODIUM CHLORIDE FLUSH 0.9% 10 ML SYRINGE IVP PRN ×3 (05:30→20:11)
[2019-10-16 05:45] LABS: BASOPHILS % (AUTO) 0.7 %; EOSINOPHILS # (AUTO) 0.1 10^3/uL (0.0-0.7); EOSINOPHILS % (AUTO) 1.7 %; HGB - HEMOGLOBIN 7.7 g/dL (12.0-16.0); LYMPHOCYTES # (AUTO) 1.8 10^3/uL (1.5-3.5); LYMPHOCYTES % (AUTO) 32.6 %; MEAN CORPUSCULAR HEMOGLOBIN 26.9 pg (27.0-31.0); MEAN CORPUSCULAR HGB CONC 30.4 g/dL (32.0-36.0); MEAN CORPUSCULAR VOLUME 88.5 fL (81.0-99.0); MEAN PLATELET VOLUME 10.6 fL (7.9-10.8); MONOCYTES # (AUTO) 0.5 10^3/uL (0.0-1.0); MONOCYTES % (AUTO) 8.3 %; NEUTROPHILS # (AUTO) 3.1 10^3/uL (1.5-6.6); NEUTROPHILS % (AUTO) 56.5 %; PLT - PLATELET COUNT 242 10^3/uL (130-450); RED BLOOD COUNT 2.86 10^6/uL (4.20-5.40); RED CELL DISTRIBUTION WIDTH 19.4 % (12.0-15.0); WHITE BLOOD COUNT 5.4 x10^3/uL (4.8-10.8)
[2019-10-16 05:51] LABS: BUN - BLOOD UREA NITROGEN < 5 mg/dL (6-20); CALCIUM 7.9 mg/dL (8.5-10.3); CARBON DIOXIDE - CO2 22 mmol/L (21-32); CHLORIDE 113 mmol/L (101-111); CREATININE 0.6 mg/dL (0.4-1.0); GFR - MDRD 108 (>89); GLUCOSE 96 mg/dL (70-100); MAGNESIUM 1.7 mg/dL (1.7-2.8); SODIUM 141 mmol/L (135-145)
[2019-10-16 06:34] LABS: ALBUMIN 2.4 g/dL (3.2-5.5)
[2019-10-16] MEDS ORDERED: MAGNESIUM SULFATE 2 GRAM 2 GM/50 ML BAG IV ONE (07:00)
[2019-10-16] MEDS: DEXTROSE 5%-0.9% NACL 1,000 ML IV SCH (07:31)
[2019-10-16] MEDS: METOCLOPRAMIDE 10 MG TABLET PO SCH ×4 (07:43→20:12)
[2019-10-16] MEDS: NEUTRA-PHOS 250 MG TABLET PO SCH ×2 (07:44→09:58)
[2019-10-16] MEDS: LEVOTHYROXINE 112 MCG TABLET PO SCH (07:45)
[2019-10-16] MEDS: POTASSIUM CHLOR 20 MEQ/100 ML 20 MEQ/100 ML BAG IV SCH ×4 (07:46→11:13)
[2019-10-16] MEDS: ASPIRIN 325 MG TABLET PO SCH ×2 (08:55→17:02)
[2019-10-16] MEDS: MULTIVITAMIN 10 ML, FOLIC ACID INJ 1 MG, THIAMINE INJ 100 MG, MAGNESIUM SULFATE 2 GM in... IV SCH ×5 (08:55)
[2019-10-16] MEDS ORDERED: INSULIN ASPART 300 UNIT/3 ML PEN SUBQ SCH ×3 (09:30→12:00)
[2019-10-16] MEDS ORDERED: INSULIN ASPART 300 UNIT/3 ML PEN SUBQ ONE (09:53)
[2019-10-16] MEDS: OXYBUTYNIN 5MG TABLET PO SCH (09:57)
[2019-10-16] MEDS: NICOTINE 14 MG PATCH TOP SCH ×2 (09:57→10:21)
[2019-10-16] MEDS: DULoxetine 30 MG CAPSULE PO SCH (09:58)
[2019-10-16] MEDS: FAMOTIDINE 20 MG/2 ML VIAL IVP SCH ×2 (09:58→20:11)
[2019-10-16] MEDS: ENOXAPARIN 40 MG/0.4 ML SYRINGE SUBQ SCH (09:59)
[2019-10-16] MEDS: ESCITALOPRAM 10 MG TABLET PO SCH (10:19)
[2019-10-16] MEDS: oxyCODONE 5 MG TABLET PO PRN ×3 (11:10→20:11)
[2019-10-16] MEDS: clonazePAM 0.5 MG TABLET PO PRN (11:17)
--- NOTE | 2019-10-16 12:30 | PROVIDER PROGRESS NOTE ---
Assessment/Plan - Problem List (1) Altered mental status Assessment/Plan: She does sit up, answers yes or no but when asked what happened or where it hurts she starts crying and does not communicate. She is unable to say where she is, thinks she had "repeat ankle surgery with Dr Sampson in [place]". The Transitions nurse will contact the daughter to ask where she had her surgery to get a [facility] summary (2) DM type 1 (diabetes mellitus, type 1) Qualifiers: Diabetes mellitus complication status: with ketoacidosis Diabetes mellitus complication detail: without coma Qualified Code(s): E10.10 - Type 1 diabetes mellitus with ketoacidosis without coma Assessment/Plan: She used to have an Insulin pump when we took care of her 1 month ago, it is not present. Will advance a diet and use Lantus 25U hs and a ss Insulin. (3) Campylobacter diarrhea Assessment/Plan: She appears to have a mild case, since she does not c/o abd pain. Gentle hydration is planned. Will try to advance her diet starting today. (4) Opiate dependence Qualifiers: Substance use status: with unspecified opioid-induced disorder Qualified Code(s): F11.29 - Opioid dependence with unspecified opioid-induced disorder Assessment/Plan: This is from the [facility] records. Her pain meds have been restarted at lower doses to avoid withdrawl. (5) Alcohol use Assessment/Plan: She had alcohol present on admission labs. She is on a CIWA protocol (6) Anemia Assessment/Plan: Stable Follow H/H (7) History of ankle surgery Assessment/Plan: She is unable to say where she is, thinks she had "repeat ankle surgery with Dr Sampson in [place]". The last record here was an internal fixation done by Dr Godfrey 1 month ago. The Transitions nurse will contact the daughter to ask where she had her surgery to get a DC summary (8) Hypothyroidism Assessment/Plan: Thyroid med resumed (9) Depression Assessment/Plan: Home meds resumed (10) Smoker Assessment/Plan: She agreed to use a Nicotine patch (11) DKA (diabetic ketoacidosis) Assessment/Plan: Resolved - Current Meds Current Meds: Current Medications Generic Name Dose Route Start Last Admin Trade Name Freq PRN Reason Stop Dose Admin Acetaminophen/Butalbital/Caffeine 1 tab 10/15/19 17:18 10/16/19 00:17 Fioricet PO 1 tab Q4H PRN Administration SEVERE HEADACHE Aspirin 325 mg 10/15/19 17:00 10/16/19 08:55 Suri PO 325 mg BIDWM SHELL Administration Clonazepam 1 mg 10/15/19 17:15 10/16/19 11:17 Klonopin PO 1 mg TID PRN Administration Anxiety Duloxetine HCl 120 mg 10/16/19 09:00 10/16/19 09:58 Cymbalta PO 120 mg DAILY SHELL Administration Enoxaparin Sodium 40 mg 10/15/19 09:00 10/16/19 09:59 Lovenox SUBQ 40 mg DAILY SHELL Administration Escitalopram Oxalate 40 mg 10/16/19 09:00 10/16/19 10:19 Lexapro PO 40 mg DAILY SHELL Administration Famotidine 20 mg 10/14/19 21:00 10/16/19 09:58 Pepcid IVP 20 mg BID SHELL Administration Haloperidol 0.5 mg 10/15/19 01:36 10/15/19 03:52 Haldol Inj IVP 0.5 mg Q6H PRN Administration Agitation Multivitamins 10 ml/ Folic 1,015.2 mls @ 100 mls/hr 10/16/19 09:00 10/16/19 08:55 Acid 1 mg/ Thiamine HCl 100 mg IV 100 mls/hr / Magnesium Sulfate 2 gm/ DAILY SHELL Administration Sodium Chloride Insulin Aspart 1 - 9 unit 10/16/19 12:00 10/16/19 12:28 Novolog SUBQ 9 unit 0800,1200,1700,2100 SHELL Administration Protocol Levothyroxine Sodium 112 mcg 10/16/19 07:00 10/16/19 07:45 Synthroid PO 112 mcg QDAC SHELL Administration Lorazepam 1 mg 10/14/19 18:08 10/15/19 18:50 Ativan Inj (Vial) IVP 1 mg Q1H PRN Administration CIWA >8 Protocol Metoclopramide HCl 10 mg 10/15/19 21:00 10/16/19 11:17 Reglan PO 10 mg ACHS SHELL Administration Nicotine 1 patch 10/15/19 12:00 10/16/19 10:21 Nicoderm TOP Not Given DAILY SHELL Oxybutynin Chloride 5 mg 10/16/19 09:00 10/16/19 09:57 Ditropan PO 5 mg DAILY SHELL Administration Oxycodone HCl 5 mg 10/15/19 17:20 10/16/19 11:10 Roxicodone PO 5 mg Q4HR PRN Administration PAIN Prazosin HCl 5 mg 10/15/19 21:00 10/15/19 20:44 Minipress PO 5 mg QPM SHELL Administration Sodium Chloride 10 ml 10/14/19 17:00 10/16/19 09:59 Normal Saline Flush 0.9% IVP 10 ml 0100,0900,1700 SHELL Administration Sodium Chloride 10 ml 10/14/19 12:44 10/16/19 05:30 Normal Saline Flush 0.9% IVP 30 ml PRN PRN Administration NEEDED PER PROVIDER ORDERS Sodium Chloride 20 ml 10/15/19 03:04 10/15/19 04:53 Normal Saline Flush 0.9% IVP 20 ml PRN PRN Administration After Blood Draw Trazodone HCl 200 mg 10/15/19 21:00 10/15/19 20:44 Desyrel PO 200 mg QPM SHELL Administration - Lab Result Fish Bone Diagrams: 10/16/19 05:30 10/16/19 13:21 - Additional Planning My Orders: My Active Orders 10/15/19 12:00 Nicotine 14 mg Patch [Nicoderm] 1 patch TOP DAILY 10/15/19 16:56 Baclofen [Lioresal] 10 mg PO QID PRN 10/15/19 17:00 Aspirin [Suri] 325 mg PO BIDWM 10/15/19 17:15 clonazePAM [KlonoPIN] 1 mg PO TID PRN 10/15/19 17:18 Butalb/Acetam/Caff 50/325/40 [Fioricet] 1 tab PO Q4H PRN 10/15/19 17:20 oxyCODONE [Roxicodone] 5 mg PO Q4HR PRN 10/15/19 21:00 Metoclopramide [Reglan] 10 mg PO ACHS Prazosin [Minipress] 5 mg PO QPM traZODone [Desyrel] 200 mg PO QPM 10/16/19 07:00 Levothyroxine [Synthroid] 112 mcg PO QDAC 10/16/19 09:00 DULoxetine [Cymbalta] 120 mg PO DAILY Escitalopram [Lexapro] 40 mg PO DAILY Multivitamin [Infuvite] 10 ml Folic Acid Inj 1 mg Thiamine Inj [Vitamin B-1 Inj] 100 mg Magnesium Sulfate 2 gm Sodium Chloride 0.9% [Normal Saline 0.9%] 1,000 ml IV DAILY Oxybutynin [Ditropan] 5 mg PO DAILY 10/16/19 11:46 Initiate Hypoglycemia Protocol [RC] .protocol 10/16/19 11:47 Blood Glucose Checks - Eating [RC] 0800,1200,1700,2100 10/16/19 12:00 Insulin Aspart [NovoLOG] 1 - 9 unit SUBQ 0800,1200,1700,2100 10/16/19 13:00 POTASSIUM [CHEM] Timed 10/16/19 Lunch Carb-controlled Diet [DIET] 10/17/19 05:00 BMP - BASIC METABOLIC PANEL [CHEM] DAILYLAB CBC - COMP BLD CT W/AUTO DIFF [HEME] DAILYLAB MAGNESIUM [CHEM] DAILYLAB PHOSPHORUS [CHEM] DAILYLAB POTASSIUM [CHEM] Timed 10/18/19 05:00 MAGNESIUM [CHEM] DAILYLAB PHOSPHORUS [CHEM] DAILYLAB 10/19/19 05:00 MAGNESIUM [CHEM] DAILYLAB PHOSPHORUS [CHEM] DAILYLAB Subjective - Subjective Patient Reports: Other (Fidgety, tearful) Objective Vital Signs: Vital Signs - 24 hr 10/15/19 10/15/19 10/15/19 13:00 15:00 17:00 Temperature 36.9 C 37.3 C Heart Rate [ 97 100 98 Monitoring electrodes] Respiratory 19 21 20 Rate Blood Pressure 124/76 125/74 131/77 H [Right Brachial artery] O2 Saturation 99 98 100 10/15/19 10/15/19 10/15/19 17:20 19:00 21:00 Temperature 37.1 C 37.3 C 36.7 C Heart Rate [ 94 79 Monitoring electrodes] Respiratory 19 26 H Rate Blood Pressure 133/82 H 117/68 [Right Brachial artery] O2 Saturation 98 97 10/15/19 10/16/19 10/16/19 23:00 01:00 03:00 Temperature 36.8 C 36.8 C Heart Rate [ 56 L 56 L 60 Monitoring electrodes] Respiratory 21 20 22 Rate Blood Pressure 111/61 98/56 L 99/61 [Right Brachial artery] O2 Saturation 97 97 97 10/16/19 10/16/1919 05:00 07:00 08:40 Temperature 36.5 C Heart Rate [ 71 104 H 120 H Monitoring electrodes] Respiratory 26 H 29 H 28 H Rate Blood Pressure 117/67 124/67 134/71 H [Right Brachial artery] O2 Saturation 97 97 99 10/16/19 10/16/19 10/16/19 09:00 10:00 11:00 Temperature Heart Rate [ 117 H 79 103 H Monitoring electrodes] Respiratory 24 27 H 21 Rate Blood Pressure 145/84 H 137/76 H 159/86 H [Right Brachial artery] O2 Saturation 99 100 99 10/16/19 12:00 Temperature 37.6 C H Heart Rate [ 96 Monitoring electrodes] Respiratory 27 H Rate Blood Pressure 132/81 H [Right Brachial artery] O2 Saturation 100 Oxygen O2 Source Room air I&O (Last 24 Hrs): Intake and Output Totals x24h 10/14/19 10/15/19 10/16/19 23:59 23:59 23:59 Intake Total 0198.667 3408.042 1724.167 Output Total 375 75 Balance 3058.661 9912.042 1724.167 General: Other (Anxious and fidgety) HEENT: Mucous membr. moist/pink Neck: Supple Neuro: Disoriented, Non Focal Respiratory: No respiratory distress Abdomen: Soft Extremities: No edema, Other (R ankle has 3 rods and skin appears pink and clean around them.) - Results Results: Laboratory Results WBC 5.4 x10^3/uL (4.8-10.8) 10/16/19 05:30 RBC 2.86 10^6/uL (4.20-5.40) L 10/16/19 05:30 Hgb 7.7 g/dL (12.0-16.0) L 10/16/19 05:30 Hct 25.3 % (37.0-47.0) L 10/16/19 05:30 MCV 88.5 fL (81.0-99.0) 10/16/19 05:30 MCH 26.9 pg (27.0-31.0) L 10/16/19 05:30 MCHC 30.4 g/dL (32.0-36.0) L 10/16/19 05:30 RDW 19.4 % (12.0-15.0) H 10/16/19 05:30 Plt Count 242 10^3/uL (130-450) 10/16/19 05:30 MPV 10.6 fL (7.9-10.8) 10/16/19 05:30 Neut # (Auto) 3.1 10^3/uL (1.5-6.6) 10/16/19 05:30 Lymph # (Auto) 1.8 10^3/uL (1.5-3.5) 10/16/19 05:30 [place] # (Auto) 0.5 10^3/uL (0.0-1.0) 10/16/19 05:30 Eos # (Auto) 0.1 10^3/uL (0.0-0.7) 10/16/19 05:30 Baso # (Auto) 0.0 10^3/uL (0.0-0.1) 10/16/19 05:30 Absolute Nucleated RBC 0.00 x10^3/uL 10/16/19 05:30 Nucleated RBC % 0.0 /100WBC 10/16/19 05:30 VBG pH 7.422 (7.31-7.41) H 10/14/19 16:00 VBG pCO2 35.2 mmHg (41-51) L 10/14/19 16:00 VBG pO2 74.1 mmHg (25-47) H 10/14/19 16:00 VBG HCO3 22.4 mmol/L (23-28) L 10/14/19 16:00 VBG Total CO2 23.5 mmol/L (24-29) L 10/14/19 16:00 VBG O2 Saturation 94.7 % (60-80) H 10/14/19 16:00 VBG Base Excess -1.6 mmol/L (-2 - +2) 10/14/19 16:00 Sodium 141 mmol/L (135-145) 10/16/19 05:30 Potassium 2.9 mmol/L (3.5-5.0) L 10/16/19 05:30 Chloride 113 mmol/L (101-111) H 10/16/19 05:30 Carbon Dioxide 22 mmol/L (21-32) 10/16/19 05:30 Anion Gap 6.0 (6-13) 10/16/19 05:30 BUN < 5 mg/dL (6-20) L 10/16/19 05:30 Creatinine 0.6 mg/dL (0.4-1.0) 10/16/19 05:30 Estimated GFR (MDRD) 108 (>89) 10/16/19 05:30 Glucose 96 mg/dL (70-100) 10/16/19 05:30 POC Whole Bld Glucose 374 mg/dL (70 - 100) H 10/16/19 11:37 Glycated Hemoglobin 7.9 % (4.6-6.2) H 10/14/19 13:33 Estim Average Glucose 180 (70-100) H 10/14/19 13:33 Lactic Acid 1.7 mmol/L (0.5-2.2) 10/14/19 08:18 Calcium 7.9 mg/dL (8.5-10.3) L 10/16/19 05:30 Phosphorus 2.0 mg/dL (2.5-4.6) L 10/16/19 05:30 Magnesium 1.7 mg/dL (1.7-2.8) 10/16/19 05:30 Total Bilirubin 1.2 mg/dL (0.2-1.0) H 10/14/19 08:18 AST 13 IU/L (10-42) 10/14/19 08:18 ALT 14 IU/L (10-60) 10/14/19 08:18 Alkaline Phosphatase 95 IU/L (42-121) 10/14/19 08:18 Ammonia 12.9 umol/L (7-35) 10/16/19 05:30 Total Protein 7.3 g/dL (6.7-8.2) 10/14/19 08:18 Albumin 2.4 g/dL (3.2-5.5) L 10/16/19 05:30 Globulin 3.8 g/dL (2.1-4.2) 10/14/19 08:18 Albumin/Globulin Ratio 0.9 (1.0-2.2) L 10/14/19 08:18 Lipase 59 U/L (22-51) H 10/14/19 08:18 Urine Color YELLOW 10/14/19 08:52 Urine Clarity CLEAR (CLEAR) 10/14/19 08:52 Urine pH 5.5 PH (5.0-7.5) 10/14/19 08:52 Ur Specific [place] <=1.005 (1.002-1.030) 10/14/19 08:52 Urine Protein NEGATIVE mg/dL (NEGATIVE) 10/14/19 08:52 Urine Glucose (UA) >=1000 mg/dL (NEGATIVE) H 10/14/19 08:52 Urine Ketones 15 mg/dL (NEGATIVE) H 10/14/19 08:52 Urine Occult Blood NEGATIVE (NEGATIVE) 10/14/19 08:52 Urine Nitrite NEGATIVE (NEGATIVE) 10/14/19 08:52 Urine Bilirubin NEGATIVE (NEGATIVE) 10/14/19 08:52 Urine Urobilinogen 0.2 (NORMAL) E.U./dL (NORMAL) 10/14/19 08:52 Ur Leukocyte Esterase NEGATIVE (NEGATIVE) 10/14/19 08:52 Ur Microscopic Review NOT INDICATED 10/14/19 08:52 Urine Culture Comments NOT INDICATED 10/14/19 08:52 Urine HCG, Qual NEGATIVE 10/14/19 08:52 Nasal Screen MRSA (PCR) NEGATIVE (NEGATIVE) 10/14/19 14:00 Salicylates < 6.0 mg/dL 10/14/19 08:18 Urine Opiates Screen NEGATIVE (NEGATIVE) 10/14/19 08:52 Ur Oxycodone Screen NEGATIVE (NEGATIVE) 10/14/19 08:52 Urine Methadone Screen NEGATIVE (NEGATIVE) 10/14/19 08:52 Ur Propoxyphene Screen NEGATIVE (NEGATIVE) 10/14/19 08:52 Acetaminophen < 10 ug/mL (10-30) L 10/14/19 08:18 Ur Barbiturates Screen POSITIVE (NEGATIVE) H 10/14/19 08:52 Ur Tricyclics Screen NEGATIVE (NEGATIVE) 10/14/19 08:52 Ur Phencyclidine Scrn NEGATIVE (NEGATIVE) 10/14/19 08:52 Ur Amphetamine Screen NEGATIVE (NEGATIVE) 10/14/19 08:52 U Methamphetamines Scrn NEGATIVE (NEGATIVE) 10/14/19 08:52 U Benzodiazepines Scrn NEGATIVE (NEGATIVE) 10/14/19 08:52 Urine Cocaine Screen NEGATIVE (NEGATIVE) 10/14/19 08:52 U Cannabinoids Screen NEGATIVE (NEGATIVE) 10/14/19 08:52 Ethyl Alcohol 7.9 mg/dL 10/14/19 08:18 Serum Ketones NEGATIVE (NEGATIVE) 10/15/19 04:04 - Procedures Procedures: Procedures EXCISION OF STOMACH, ENDO, DIAGN (05/24/18) INSPECTION OF LOWER INTESTINAL TRACT, ENDO (05/24/18) REPOSITION RIGHT FIBULA WITH INT FIX, OPEN APPROACH (09/15/19) REPOSITION RIGHT TIBIA WITH INT FIX, OPEN APPROACH (09/15/19) TRANSFUSE NONAUT RED BLOOD CELLS IN PERIPH VEIN, PERC (09/15/19)
[2019-10-16] MEDS: INSULIN ASPART 300 UNIT/3 ML PEN SUBQ SCH ×2 (17:10→20:51)
[2019-10-16] MEDS: PROCHLORPERAZINE 10 MG/2 ML VIAL IVP PRN (18:00)
[2019-10-16] MEDS: PRAZOSIN 1 MG CAPSULE PO SCH (20:12)
[2019-10-16] MEDS: traZODone 50 MG TABLET PO SCH (20:12)
--- NOTE | 2019-10-16 20:25 | PROVIDER PROGRESS NOTE ---
Hospitalist Cross-cover Note - Cross-Cover Note Cross-Cover Note: The Transitions nurse was able to reach the daughter who stated that the mother had "3 ankle surgeries" at her review of . Her discharge summary from [facility] arrived and was reviewed: The patient was hospitalized there from 09/29 to 10/06. She did undergo 2 ankle surgeries for a failure of fixation with the previous right trimalleolar ankle fracture which had dislocated. She underwent removal of deep implants and placement of an ankle spanning external fixator. She had a full thickness soft tissue defect of the right medial malleolus and was diagnosed with osteomyelitis of the right tibia. She had a PICC line placed and was followed by infectious disease. The 18 year-old daughter was trained to administer IV penicillin. The patient was to have the dressing removed on 10/09 by washing it off with a washcloth. Patient was to have a visiting nurse and weekly blood draws with results sent to infectious disease. I was able to contact the daughter Liana and learned what happened over the 1 week she was home: The visiting nurse visited 3 times. The daughter did administer penicillin as directed. The advice was to have no weight bearing on that right foot. On the night before this admission, the daughter filled the oxycodone prescription and left the mother home alone for 1/2 hours. When she came home she found the patient standing in the daughter's bedroom, naked, there was blood all over the floor and she had urinated on herself, she was confused, agitated and was "glassy eyed", she had pulled out her PICC line and the PICC line was tied around her ankles. The daughter cleaned her up, put clothes on her and called an ambulance. She gave a note to the ambulance drivers with her diagnoses written on it. I have no record of that note anywhere in this medical record. During this phone call the daughter told me she could not handle her mother anymore and wanted the patient put into a nursing facility. Impression: #1 Osteomyelitis, this is not been treated since the 3 days that she is here. There was no PICC line found at admission to suspect any halfway treatment was underway. #2 DKA, which has resolved #3 Altered mental status with continued confusion or delirium, etiology unknown #4 oxycodone overdose does not appear to have occurred since there was no codeine present on her admission toxicology screen #5 Non-compliance with medical management, she was bearing weight on that foot. per the daughter, despitee instructions not to. Plan: Start iv PCN as per the discharge summary dose Continue the other (most recent list of) meds, as per the discharge summary. CT scan of head regarding continued altered mental status Continue DM management Request transfer to [facility] for management with ID and Neurology and Psychiatry: I reached out to the dry transfer man at /[facility]. Since this patient was on the orthopedic service, the current orthopedic doctor withTransfer coordinator called me back and we discussed the case, but she was not accepted in transfer back since the current problem is not orthopedic but medical with delirium, untreated osteomyelitis and type 1 diabetes with recent DKA. I will sign out to the Pin Machine Operator for further management. CRITICAL CARE TIME SPENT on all the above: 2 hours.
[2019-10-16] MEDS ORDERED: INSULIN GLARGINE 300 UNIT/3 ML PEN SUBQ SCH (21:00)
[2019-10-16] MEDS: PENICILLIN POTASSIUM IV SCH (22:58)
[2019-10-16] MEDS: SODIUM CHLORIDE 0.9% IV SCH (22:58)
[2019-10-17] MEDS: PENICILLIN POTASSIUM IV SCH ×6 (02:44→21:30)
[2019-10-17] MEDS: SODIUM CHLORIDE FLUSH 0.9% 10 ML SYRINGE IVP PRN ×2 (02:44→19:58)
[2019-10-17] MEDS: SODIUM CHLORIDE 0.9% IV SCH ×6 (02:44→21:30)
[2019-10-17] MEDS: oxyCODONE 5 MG TABLET PO PRN ×6 (03:42→23:46)
[2019-10-17] MEDS ORDERED: DEXTROSE 10% 250 ML IV ONE (04:11)
[2019-10-17] MEDS ORDERED: DEXTROSE 10% 250 ML IV STA (04:18)
[2019-10-17 05:44] LABS: BASOPHILS % (AUTO) 0.5 %; EOSINOPHILS # (AUTO) 0.2 10^3/uL (0.0-0.7); EOSINOPHILS % (AUTO) 3.5 %; HGB - HEMOGLOBIN 7.6 g/dL (12.0-16.0); LYMPHOCYTES # (AUTO) 1.6 10^3/uL (1.5-3.5); LYMPHOCYTES % (AUTO) 29.1 %; MEAN CORPUSCULAR HGB CONC 30.4 g/dL (32.0-36.0); MEAN CORPUSCULAR VOLUME 88.7 fL (81.0-99.0); MEAN PLATELET VOLUME 10.3 fL (7.9-10.8); MONOCYTES # (AUTO) 0.3 10^3/uL (0.0-1.0); MONOCYTES % (AUTO) 6.2 %; NEUTROPHILS # (AUTO) 3.3 10^3/uL (1.5-6.6); NEUTROPHILS % (AUTO) 60.3 %; PLT - PLATELET COUNT 244 10^3/uL (130-450); RED BLOOD COUNT 2.82 10^6/uL (4.20-5.40); RED CELL DISTRIBUTION WIDTH 19.5 % (12.0-15.0); WHITE BLOOD COUNT 5.5 x10^3/uL (4.8-10.8)
[2019-10-17 06:00] LABS: BUN - BLOOD UREA NITROGEN < 5 mg/dL (6-20); CALCIUM 8.1 mg/dL (8.5-10.3); CARBON DIOXIDE - CO2 24 mmol/L (21-32); CHLORIDE 109 mmol/L (101-111); CREATININE 0.6 mg/dL (0.4-1.0); GFR - MDRD 108 (>89); GLUCOSE 152 mg/dL (70-100); PHOSPHORUS 2.6 mg/dL (2.5-4.6); SODIUM 139 mmol/L (135-145)
[2019-10-17] MEDS: METOCLOPRAMIDE 10 MG TABLET PO SCH ×4 (06:19→20:38)
[2019-10-17] MEDS: LEVOTHYROXINE 112 MCG TABLET PO SCH (06:19)
[2019-10-17] MEDS: ASPIRIN 325 MG TABLET PO SCH ×2 (08:43→17:12)
[2019-10-17] MEDS: INSULIN ASPART 300 UNIT/3 ML PEN SUBQ SCH ×4 (08:44→20:43)
[2019-10-17] MEDS: OXYBUTYNIN 5MG TABLET PO SCH (08:45)
[2019-10-17] MEDS: DULoxetine 30 MG CAPSULE PO SCH (08:45)
[2019-10-17] MEDS: ENOXAPARIN 40 MG/0.4 ML SYRINGE SUBQ SCH (08:46)
[2019-10-17] MEDS: FAMOTIDINE 20 MG/2 ML VIAL IVP SCH (08:46)
[2019-10-17] MEDS: SODIUM CHLORIDE FLUSH 0.9% 10 ML SYRINGE IVP SCH ×2 (08:47→17:37)
[2019-10-17] MEDS: NICOTINE 14 MG PATCH TOP SCH (08:47)
[2019-10-17] MEDS: ESCITALOPRAM 10 MG TABLET PO SCH (08:50)
[2019-10-17] MEDS: MULTIVITAMIN 10 ML, FOLIC ACID INJ 1 MG, THIAMINE INJ 100 MG, MAGNESIUM SULFATE 2 GM in... IV SCH ×5 (09:12)
[2019-10-17] MEDS ORDERED: SODIUM CHLORIDE 0.9% 500 ML IV PRN (10:48)
--- NOTE | 2019-10-17 13:05 | PROVIDER PROGRESS NOTE ---
Subjective - Prog Note Date Prog Note Date: 10/17/19 Prog Note Time: 13:03 - Subjective Subjective: She is clear her today with regards to mentation. She knows that she is at [facility]. She knows what day it is. She knows why she is here. She ack nowledges that she became "confused". She does not know why. She just felt worse as the last few days of gone on. No specific injury, pain. Denies any recreational substance use. Does not remember the last day and a half. She is tearful once we discussed the treatment plan. She wants to go home. But I have explained to her that it did not work. She was more care than her 2 children are able to give her at this time. Most of it has to do with her noncompliance and refusing to do what she needs to do. Current Medications - Current Medications Current Medications: Active Medications Acetaminophen/Butalbital/Caffeine (Fioricet) 1 tab PO Q4H PRN PRN Reason: SEVERE HEADACHE Last Admin: 10/16/19 00:17 Dose: 1 tab Aspirin (Suri) 325 mg PO BIDWM [facility] Last Admin: 10/17/19 08:43 Dose: 325 mg Baclofen (Lioresal) 10 mg PO QID PRN PRN Reason: Spasms Clonazepam (Klonopin) 1 mg PO TID PRN PRN Reason: Anxiety Last Admin: 10/16/19 11:17 Dose: 1 mg Duloxetine HCl (Cymbalta) 120 mg PO DAILY [facility] Last Admin: 10/17/19 08:45 Dose: 120 mg Enoxaparin Sodium (Lovenox) 40 mg SUBQ DAILY [facility] Last Admin: 10/17/19 08:46 Dose: 40 mg Escitalopram Oxalate (Lexapro) 40 mg PO DAILY [facility] Last Admin: 10/17/19 08:50 Dose: 40 mg Famotidine (Pepcid) 20 mg IVP BID [facility] Last Admin: 10/17/19 08:46 Dose: 20 mg Haloperidol (Haldol Inj) 0.5 mg IVP Q6H PRN PRN Reason: Agitation Last Admin: 10/15/19 03:52 Dose: 0.5 mg Multivitamins 10 ml/ Folic Acid 1 mg/ Thiamine HCl 100 mg / Magnesium Sulfate 2 gm/Sodium Chloride 1,015.2 mls @ 100 mls/hr IV DAILY [facility] Last Infusion: 10/17/19 12:24 Dose: 100 mls/hr Penicillin G Potassium 4,000, (000 unit/ Sodium Chloride) 100 mls @ 200 mls/hr IV Q4H [facility] Last Infusion: 10/17/19 11:20 Dose: Infused Sodium Chloride (Normal Saline 0.9%) 500 mls @ 20 mls/hr IV Q24H PRN PRN Reason: TKO RATE Insulin Aspart (Novolog) 2 - 10 unit SUBQ 0800,1200,1700,2100 [facility]; Protocol Last Admin: 10/17/19 12:19 Dose: 6 unit Insulin Glargine (Lantus Solostar) 15 unit SUBQ QPM [facility] Levothyroxine Sodium (Synthroid) 112 mcg PO QDAC [facility] Last Admin: 10/17/19 06:19 Dose: 112 mcg Lorazepam (Ativan Inj (Vial)) 1 mg IVP Q1H PRN; Protocol PRN Reason: CIWA >8 Last Admin: 10/15/19 18:50 Dose: 1 mg Metoclopramide HCl (Reglan) 10 mg PO ACHS [facility] Last Admin: 10/17/19 11:50 Dose: 10 mg Nicotine (Nicoderm) 1 patch TOP DAILY [facility] Last Admin: 10/17/19 08:47 Dose: 1 patch Oxybutynin Chloride (Ditropan) 5 mg PO DAILY [facility] Last Admin: 10/17/19 08:45 Dose: 5 mg Oxycodone HCl (Roxicodone) 5 mg PO Q4HR PRN PRN Reason: PAIN Last Admin: 10/17/19 11:50 Dose: 5 mg Prazosin HCl (Minipress) 5 mg PO QPM [facility] Last Admin: 10/16/19 20:12 Dose: 5 mg Prochlorperazine Edisylate (Compazine Inj) 10 mg IVP Q6HR PRN PRN Reason: Nausea / Vomiting Last Admin: 10/16/19 18:00 Dose: 10 mg Saccharomyces Boulardii (Florastor) 250 mg PO BIDWM [facility] Sodium Chloride (Normal Saline Flush 0.9%) 10 ml IVP 0100,0900,1700 [facility] Last Admin: 10/17/19 08:47 Dose: 10 ml Sodium Chloride (Normal Saline Flush 0.9%) 10 ml IVP PRN PRN PRN Reason: NEEDED PER PROVIDER ORDERS Last Admin: 10/17/19 02:44 Dose: 10 ml Sodium Chloride (Normal Saline Flush 0.9%) 20 ml IVP PRN PRN PRN Reason: After Blood Draw Last Admin: 10/15/19 04:53 Dose: 20 ml Trazodone HCl (Desyrel) 200 mg PO QPM [facility] Last Admin: 10/16/19 20:12 Dose: 200 mg Insulin Lispro [Humalog] 20 - 25 units SQ DAILY 10/30/15 Baclofen 10 mg PO QID PRN 06/03/16 Escitalopram Oxalate [Lexapro] 40 mg PO DAILY 05/22/18 Simvastatin 20 mg PO QPM 05/22/18 Butalb/Acetam/Caff 50/325/40 [Fioricet] 1 tab PO Q4H PRN 01/22/19 Oxycodone HCl 10 mg PO QID 01/22/19 Prazosin HCl 5 mg PO QPM 01/23/19 Trazodone HCl 200 mg PO QPM 01/23/19 Dextroamphetamine/Amphetamine [Adderall Xr 20 mg Capsule] 20 mg PO DAILY 09/15/19 Dicyclomine HCl 20 mg PO QID PRN 09/15/19 Duloxetine HCl [Cymbalta] 120 mg PO DAILY 09/15/19 Levothyroxine [Synthroid] 112 mcg PO QDAC 09/15/19 Oxybutynin [Ditropan] 5 mg PO DAILY 09/15/19 Pantoprazole Sodium [Protonix] 20 mg PO QDAC 09/15/19 clonazePAM [Clonazepam] 1 mg PO TID PRN 09/15/19 Metoclopramide HCl 10 mg PO ACHS 10/14/19 Spironolactone 100 mg PO DAILY 10/14/19 Objective - Vital Signs/Intake & Output Reviewed Vital Signs: Yes Vital Signs: Vital Signs x48h Temp Pulse Resp BP Pulse Ox 10/17/19 12:18 36.8 C 99 10/17/19 12:05 88 18 132/77 H 10/17/19 11:00 95 26 H 131/85 H 99 10/17/19 10:00 74 22 137/80 H 100 10/17/19 09:00 96 21 125/75 100 10/17/19 08:00 36.4 C L 84 21 134/92 H 99 10/17/19 07:00 87 22 115/69 10/17/19 06:00 109 H 22 129/85 H 100 Intake & Output: Intake & Output 10/14/19 10/15/19 10/16/19 10/17/19 23:59 23:59 23:59 23:59 Intake Total 3860.384 5745.042 4829.367 1850 Output Total 430 92 8733 1775 Balance 4543.277 0825.042 3504.367 75 - Objective General Appearance: positive: Other (sleepy, slightly slow speech but starts to cry when she asks to go home and I explain she can't go home right now.) Eyes Bilateral: positive: PERRL ENT: positive: Pharynx nml Neck: positive: No JVD. negative: Stiff neck Respiratory: positive: Chest non-tender. negative: Wheezes, Rales, Rhonchi Cardiovascular: positive: Regular rate & rhythm. negative: Systolic murmur, Gallop/S4, Friction rub Abdomen: positive: Non-tender, No organomegaly, Nml bowel sounds, No distention Skin: positive: Warm, Dry Extremities: positive: No pedal edema, Other (right leg with external fixation device. Insertion sites clean, no redness drainage or edema.) Neurologic/Psychiatric: positive: Oriented x3, CN's nml (2-12), Motor nml, Slurred/abnml speech (slight slurring today), Other (nursing reports much more oriented today than yesterday) - Lab Results Fish Bones: 10/17/19 05:25 10/17/19 05:25 Other Labs: Lab Results x24hrs 10/17/19 10/17/19 10/17/19 Range/Units 11:54 10:53 09:54 WBC (4.8-10.8) x10^3/uL RBC (4.20-5.40) 10^6/uL Hgb (12.0-16.0) g/dL Hct (37.0-47.0) % MCV (81.0-99.0) fL MCH (27.0-31.0) pg MCHC (32.0-36.0) g/dL RDW (12.0-15.0) % Plt Count (130-450) 10^3/uL MPV (7.9-10.8) fL Neut # (Auto) (1.5-6.6) 10^3/uL Lymph # (Auto) (1.5-3.5) 10^3/uL [place] # (Auto) (0.0-1.0) 10^3/uL Eos # (Auto) (0.0-0.7) 10^3/uL Baso # (Auto) (0.0-0.1) 10^3/uL Absolute Nucleated RBC x10^3/uL Nucleated RBC % /100WBC Sodium (135-145) mmol/L Potassium (3.5-5.0) mmol/L Chloride (101-111) mmol/L Carbon Dioxide (21-32) mmol/L Anion Gap (6-13) BUN (6-20) mg/dL Creatinine (0.4-1.0) mg/dL Estimated GFR (MDRD) (>89) Glucose (70-100) mg/dL POC Whole Bld Glucose 233 H 226 H 253 H (70 - 100) mg/dL Calcium (8.5-10.3) mg/dL Phosphorus (2.5-4.6) mg/dL Magnesium (1.7-2.8) mg/dL Albumin (3.2-5.5) g/dL 10/17/19 10/17/19 10/17/19 Range/Units 08:51 07:59 07:06 WBC (4.8-10.8) x10^3/uL RBC (4.20-5.40) 10^6/uL Hgb (12.0-16.0) g/dL Hct (37.0-47.0) % MCV (81.0-99.0) fL MCH (27.0-31.0) pg MCHC (32.0-36.0) g/dL RDW (12.0-15.0) % Plt Count (130-450) 10^3/uL MPV (7.9-10.8) fL Neut # (Auto) (1.5-6.6) 10^3/uL Lymph # (Auto) (1.5-3.5) 10^3/uL [place] # (Auto) (0.0-1.0) 10^3/uL Eos # (Auto) (0.0-0.7) 10^3/uL Baso # (Auto) (0.0-0.1) 10^3/uL Absolute Nucleated RBC x10^3/uL Nucleated RBC % /100WBC Sodium (135-145) mmol/L Potassium (3.5-5.0) mmol/L Chloride (101-111) mmol/L Carbon Dioxide (21-32) mmol/L Anion Gap (6-13) BUN (6-20) mg/dL Creatinine (0.4-1.0) mg/dL Estimated GFR (MDRD) (>89) Glucose (70-100) mg/dL POC Whole Bld Glucose 150 H 76 82 (70 - 100) mg/dL Calcium (8.5-10.3) mg/dL Phosphorus (2.5-4.6) mg/dL Magnesium (1.7-2.8) mg/dL Albumin (3.2-5.5) g/dL 10/17/19 10/17/19 10/17/19 Range/Units 06:14 05:25 05:25 WBC (4.8-10.8) x10^3/uL RBC (4.20-5.40) 10^6/uL Hgb (12.0-16.0) g/dL Hct (37.0-47.0) % MCV (81.0-99.0) fL MCH (27.0-31.0) pg MCHC (32.0-36.0) g/dL RDW (12.0-15.0) % Plt Count (130-450) 10^3/uL MPV (7.9-10.8) fL Neut # (Auto) (1.5-6.6) 10^3/uL Lymph # (Auto) (1.5-3.5) 10^3/uL [place] # (Auto) (0.0-1.0) 10^3/uL Eos # (Auto) (0.0-0.7) 10^3/uL Baso # (Auto) (0.0-0.1) 10^3/uL Absolute Nucleated RBC x10^3/uL Nucleated RBC % /100WBC Sodium 139 (135-145) mmol/L Potassium 3.6 (3.5-5.0) mmol/L Chloride 109 (101-111) mmol/L Carbon Dioxide 24 (21-32) mmol/L Anion Gap 6.0 (6-13) BUN < 5 L (6-20) mg/dL Creatinine 0.6 (0.4-1.0) mg/dL Estimated GFR (MDRD) 108 (>89) Glucose 152 H (70-100) mg/dL POC Whole Bld Glucose 93 (70 - 100) mg/dL Calcium 8.1 L (8.5-10.3) mg/dL Phosphorus 2.6 (2.5-4.6) mg/dL Magnesium 2.0 (1.7-2.8) mg/dL Albumin 2.4 L (3.2-5.5) g/dL 10/17/19 10/17/19 10/17/19 Range/Units 05:25 05:07 04:10 WBC 5.5 (4.8-10.8) x10^3/uL RBC 2.82 L (4.20-5.40) 10^6/uL Hgb 7.6 L (12.0-16.0) g/dL Hct 25.0 L (37.0-47.0) % MCV 88.7 (81.0-99.0) fL MCH 27.0 (27.0-31.0) pg MCHC 30.4 L (32.0-36.0) g/dL RDW 19.5 H (12.0-15.0) % Plt Count 244 (130-450) 10^3/uL MPV 10.3 (7.9-10.8) fL Neut # (Auto) 3.3 (1.5-6.6) 10^3/uL Lymph # (Auto) 1.6 (1.5-3.5) 10^3/uL [place] # (Auto) 0.3 (0.0-1.0) 10^3/uL Eos # (Auto) 0.2 (0.0-0.7) 10^3/uL Baso # (Auto) 0.0 (0.0-0.1) 10^3/uL Absolute Nucleated RBC 0.00 x10^3/uL Nucleated RBC % 0.0 /100WBC Sodium (135-145) mmol/L Potassium (3.5-5.0) mmol/L Chloride (101-111) mmol/L Carbon Dioxide (21-32) mmol/L Anion Gap (6-13) BUN (6-20) mg/dL Creatinine (0.4-1.0) mg/dL Estimated GFR (MDRD) (>89) Glucose (70-100) mg/dL POC Whole Bld Glucose 186 H 29 L* (70 - 100) mg/dL Calcium (8.5-10.3) mg/dL Phosphorus (2.5-4.6) mg/dL Magnesium (1.7-2.8) mg/dL Albumin (3.2-5.5) g/dL 10/17/19 10/17/19 10/17/19 Range/Units 02:37 01:36 01:12 WBC (4.8-10.8) x10^3/uL RBC (4.20-5.40) 10^6/uL Hgb (12.0-16.0) g/dL Hct (37.0-47.0) % MCV (81.0-99.0) fL MCH (27.0-31.0) pg MCHC (32.0-36.0) g/dL RDW (12.0-15.0) % Plt Count (130-450) 10^3/uL MPV (7.9-10.8) fL Neut # (Auto) (1.5-6.6) 10^3/uL Lymph # (Auto) (1.5-3.5) 10^3/uL [place] # (Auto) (0.0-1.0) 10^3/uL Eos # (Auto) (0.0-0.7) 10^3/uL Baso # (Auto) (0.0-0.1) 10^3/uL Absolute Nucleated RBC x10^3/uL Nucleated RBC % /100WBC Sodium (135-145) mmol/L Potassium (3.5-5.0) mmol/L Chloride (101-111) mmol/L Carbon Dioxide (21-32) mmol/L Anion Gap (6-13) BUN (6-20) mg/dL Creatinine (0.4-1.0) mg/dL Estimated GFR (MDRD) (>89) Glucose (70-100) mg/dL POC Whole Bld Glucose 118 H 128 H 20 L* (70 - 100) mg/dL Calcium (8.5-10.3) mg/dL Phosphorus (2.5-4.6) mg/dL Magnesium (1.7-2.8) mg/dL Albumin (3.2-5.5) g/dL 10/16/19 10/16/19 10/16/19 Range/Units 20:43 16:28 13:21 WBC (4.8-10.8) x10^3/uL RBC (4.20-5.40) 10^6/uL Hgb (12.0-16.0) g/dL Hct (37.0-47.0) % MCV (81.0-99.0) fL MCH (27.0-31.0) pg MCHC (32.0-36.0) g/dL RDW (12.0-15.0) % Plt Count (130-450) 10^3/uL MPV (7.9-10.8) fL Neut # (Auto) (1.5-6.6) 10^3/uL Lymph # (Auto) (1.5-3.5) 10^3/uL [place] # (Auto) (0.0-1.0) 10^3/uL Eos # (Auto) (0.0-0.7) 10^3/uL Baso # (Auto) (0.0-0.1) 10^3/uL Absolute Nucleated RBC x10^3/uL Nucleated RBC % /100WBC Sodium (135-145) mmol/L Potassium 3.6 (3.5-5.0) mmol/L Chloride (101-111) mmol/L Carbon Dioxide (21-32) mmol/L Anion Gap (6-13) BUN (6-20) mg/dL Creatinine (0.4-1.0) mg/dL Estimated GFR (MDRD) (>89) Glucose (70-100) mg/dL POC Whole Bld Glucose 200 H 326 H (70 - 100) mg/dL Calcium (8.5-10.3) mg/dL Phosphorus (2.5-4.6) mg/dL Magnesium (1.7-2.8) mg/dL Albumin (3.2-5.5) g/dL ABX Reporting Has patient been on IV antibiotics over the past 48 hours?: Yes Assessment/Plan - Problem List (1) Osteomyelitis of ankle Impression: She was at [place] 09/29-10/06. Home until admit here. She received PCN until admit here and for 3 days we did not know she had to be on PCN. So she received ~15 days, off 3 days, resumed last night. She was to continue abx until 10/20 so new date for stopping will be 10/23/19. has a PICC line in place. Plan: orders will be continued for mepilex ag on right thigh and keep clean and dry, do not get wet wash graft daily with warm soapy water on washcloth an then dry to then apply xeroform with bacitracin over the mesh pattern, cover with 4x4 then kerlix to secure in place. Qualifiers: Osteomyelitis type: other chronic Laterality: right Qualified Code(s): M86.671 - Other chronic osteomyelitis, right ankle and foot (2) DKA (diabetic ketoacidosis) Impression: Resolved. Present on admission. This morning she became hypoglycemic. Lantus was adjusted and reduced from 25 units to 15 units. She continues to be on sliding scale NovoLog 2 to 10 units before meals. I initially thought that I would have to give her D5, but glucose rebounded to 150, 253, 226, 233 by the time of this note. Plan: Add 3 units of NovoLog to each meal, continue Lantus 15 units at night. Qualifiers: Diabetes mellitus type: type 1 (3) Campylobacter diarrhea Impression: WBC now normal and she has no abdominal pain. Plan: no abx for this particuar illness for now. (4) Alcohol use Impression: so far CIWA meds have not been needed. getting a bannana bag. (5) Noncompliance with safety precautions Impression: she has been walking on a nonweightbearing ankle as well as not refraining from alcohol with hx of DM Type 1. Her children will not take her home with them as long as she is nonweight bearing and needing IV PCN. Plan: she was notified and she is in tears. Social work notified as well and we will begin looking for placement
[2019-10-17] MEDS: FERROUS GLUCONATE 324 MG TABLET PO SCH (15:53)
[2019-10-17] MEDS: BACITRACIN ZINC OINT 1 PACKET TOP SCH (17:01)
[2019-10-17] MEDS: SACCHAROMYCES BOULARDII 250 MG CAPSULE PO SCH (17:12)
[2019-10-17] MEDS: IBUPROFEN 600 MG TABLET PO SCH ×2 (18:16→23:46)
[2019-10-17] MEDS: traZODone 50 MG TABLET PO SCH (20:38)
[2019-10-17] MEDS: BUTALB/ACETAM/CAFF 50/325/40MG TABLET PO PRN (20:38)
[2019-10-17] MEDS: PRAZOSIN 1 MG CAPSULE PO SCH (20:38)
[2019-10-17] MEDS: INSULIN GLARGINE 300 UNIT/3 ML PEN SUBQ SCH (20:43)
[2019-10-18] MEDS: PENICILLIN POTASSIUM IV SCH ×6 (01:28→21:53)
[2019-10-18] MEDS: SODIUM CHLORIDE FLUSH 0.9% 10 ML SYRINGE IVP SCH ×3 (01:28→17:14)
[2019-10-18] MEDS: SODIUM CHLORIDE 0.9% IV SCH ×6 (01:28→21:53)
[2019-10-18] MEDS: oxyCODONE 5 MG TABLET PO PRN ×5 (03:55→20:26)
[2019-10-18 05:26] LABS: MAGNESIUM 2.3 mg/dL (1.7-2.8); PHOSPHORUS 3.2 mg/dL (2.5-4.6)
[2019-10-18] MEDS: IBUPROFEN 600 MG TABLET PO SCH ×3 (06:16→17:37)
[2019-10-18] MEDS: LEVOTHYROXINE 112 MCG TABLET PO SCH (06:16)
[2019-10-18] MEDS: METOCLOPRAMIDE 10 MG TABLET PO SCH ×4 (06:16→20:26)
[2019-10-18 06:18] LABS: ALBUMIN 2.5 g/dL (3.2-5.5); CALCIUM 8.4 mg/dL (8.5-10.3)
[2019-10-18] MEDS: INSULIN ASPART 300 UNIT/3 ML PEN SUBQ SCH ×7 (08:05→21:52)
[2019-10-18] MEDS: ASPIRIN 325 MG TABLET PO SCH ×2 (08:12→17:37)
[2019-10-18] MEDS: SACCHAROMYCES BOULARDII 250 MG CAPSULE PO SCH ×2 (08:12→17:37)
[2019-10-18] MEDS: OXYBUTYNIN 5MG TABLET PO SCH (08:13)
[2019-10-18] MEDS: NICOTINE 14 MG PATCH TOP SCH (08:13)
[2019-10-18] MEDS: THIAMINE 100 MG TABLET PO SCH (09:01)
[2019-10-18] MEDS: DULoxetine 30 MG CAPSULE PO SCH (09:10)
[2019-10-18] MEDS: ESCITALOPRAM 10 MG TABLET PO SCH (09:10)
[2019-10-18] MEDS: FERROUS GLUCONATE 324 MG TABLET PO SCH (09:11)
[2019-10-18] MEDS: CYANOCOBALAMIN 500 MCG TABLET PO SCH (09:11)
[2019-10-18] MEDS: PRENATAL VITAMIN TABLET PO SCH (09:11)
[2019-10-18] MEDS: ENOXAPARIN 40 MG/0.4 ML SYRINGE SUBQ SCH (09:17)
[2019-10-18 09:38] LABS: BASOPHILS % (AUTO) 0.5 %; EOSINOPHILS # (AUTO) 0.4 10^3/uL (0.0-0.7); EOSINOPHILS % (AUTO) 8.4 %; HGB - HEMOGLOBIN 8.2 g/dL (12.0-16.0); LYMPHOCYTES # (AUTO) 1.1 10^3/uL (1.5-3.5); LYMPHOCYTES % (AUTO) 24.5 %; MEAN CORPUSCULAR HEMOGLOBIN 27.3 pg (27.0-31.0); MEAN CORPUSCULAR HGB CONC 30.5 g/dL (32.0-36.0); MEAN CORPUSCULAR VOLUME 89.7 fL (81.0-99.0); MEAN PLATELET VOLUME 10.5 fL (7.9-10.8); MONOCYTES # (AUTO) 0.3 10^3/uL (0.0-1.0); MONOCYTES % (AUTO) 6.5 %; NEUTROPHILS # (AUTO) 2.6 10^3/uL (1.5-6.6); NEUTROPHILS % (AUTO) 59.6 %; PLT - PLATELET COUNT 249 10^3/uL (130-450); RED CELL DISTRIBUTION WIDTH 20.1 % (12.0-15.0); WHITE BLOOD COUNT 4.3 x10^3/uL (4.8-10.8)
[2019-10-18 09:51] LABS: CALCIUM 8.2 mg/dL (8.5-10.3); CREATININE 0.7 mg/dL (0.4-1.0)
[2019-10-18] MEDS ORDERED: SODIUM CHLORIDE 0.9% 100ML 100 ML IV ONE (09:53)
[2019-10-18 10:10] LABS: PLATELET ESTIMATE, MANUAL NORMAL (130-450,000) (NORMAL); PLATELET MORPHOLOGY 1+ LARGE PLATELETS (NORMAL)
[2019-10-18] MEDS: clonazePAM 0.5 MG TABLET PO PRN (11:09)
[2019-10-18] MEDS: BUTALB/ACETAM/CAFF 50/325/40MG TABLET PO PRN (11:09)
[2019-10-18] MEDS: BACITRACIN ZINC OINT 1 PACKET TOP SCH (14:20)
--- NOTE | 2019-10-18 16:23 | PROVIDER PROGRESS NOTE ---
Subjective - Prog Note Date Prog Note Date: 10/18/19 Prog Note Time: 16:21 - Subjective Subjective: no new complaints. Current Medications - Current Medications Current Medications: Active Medications Acetaminophen/Butalbital/Caffeine (Fioricet) 1 tab PO Q4H PRN PRN Reason: SEVERE HEADACHE Last Admin: 10/18/19 11:09 Dose: 1 tab Aspirin (Suri) 325 mg PO BIDWM [facility] Last Admin: 10/18/19 08:12 Dose: 325 mg Bacitracin (Bacitracin) 1 packet TOP DAILY [facility] Last Admin: 10/18/19 14:20 Dose: 1 packet Baclofen (Lioresal) 10 mg PO QID PRN PRN Reason: Spasms Clonazepam (Klonopin) 1 mg PO TID PRN PRN Reason: Anxiety Last Admin: 10/18/19 11:09 Dose: 1 mg Cyanocobalamin (Vitamin B-12) 500 mcg PO DAILY [facility] Last Admin: 10/18/19 09:11 Dose: 500 mcg Duloxetine HCl (Cymbalta) 120 mg PO DAILY [facility] Last Admin: 10/18/19 09:10 Dose: 120 mg Enoxaparin Sodium (Lovenox) 40 mg SUBQ DAILY [facility] Last Admin: 10/18/19 09:17 Dose: 40 mg Escitalopram Oxalate (Lexapro) 40 mg PO DAILY [facility] Last Admin: 10/18/19 09:10 Dose: 40 mg Ferrous Gluconate (Fergon) 324 mg PO DAILYWM [facility] Last Admin: 10/18/19 09:11 Dose: 324 mg Haloperidol (Haldol Inj) 0.5 mg IVP Q6H PRN PRN Reason: Agitation Last Admin: 10/15/19 03:52 Dose: 0.5 mg Penicillin G Potassium 4,000, (000 unit/ Sodium Chloride) 100 mls @ 200 mls/hr IV Q4H [facility] Last Admin: 10/18/19 14:14 Dose: 200 mls/hr Ibuprofen (Motrin) 600 mg PO Q6HR [facility] Last Admin: 10/18/19 12:10 Dose: 600 mg Insulin Aspart (Novolog) 3 - 11 unit SUBQ 0800,1200,1700,2100 [facility]; Protocol Last Admin: 10/18/19 11:49 Dose: 5 unit Insulin Aspart (Novolog) 3 unit SUBQ TIDWM [facility] Last Admin: 10/18/19 11:49 Dose: 3 unit Insulin Glargine (Lantus Solostar) 15 unit SUBQ QPM [facility] Last Admin: 10/17/19 20:43 Dose: 15 unit Levothyroxine Sodium (Synthroid) 112 mcg PO QDAC [facility] Last Admin: 10/18/19 06:16 Dose: 112 mcg Lorazepam (Ativan Inj (Vial)) 1 mg IVP Q1H PRN; Protocol PRN Reason: CIWA >8 Last Admin: 10/15/19 18:50 Dose: 1 mg Metoclopramide HCl (Reglan) 10 mg PO ACHS [facility] Last Admin: 10/18/19 16:08 Dose: 10 mg Nicotine (Nicoderm) 1 patch TOP DAILY [facility] Last Admin: 10/18/19 08:13 Dose: 1 patch Oxybutynin Chloride (Ditropan) 5 mg PO DAILY [facility] Last Admin: 10/18/19 08:13 Dose: 5 mg Oxycodone HCl (Roxicodone) 5 mg PO Q4HR PRN PRN Reason: PAIN Last Admin: 10/18/19 16:08 Dose: 5 mg Prazosin HCl (Minipress) 5 mg PO QPM [facility] Last Admin: 10/17/19 20:38 Dose: 5 mg Multivit/Folic Acid/Iron (Trinatal Rx 1) 1 tab PO DAILYWM [facility] Last Admin: 10/18/19 09:11 Dose: 1 tab Prochlorperazine Edisylate (Compazine Inj) 10 mg IVP Q6HR PRN PRN Reason: Nausea / Vomiting Last Admin: 10/16/19 18:00 Dose: 10 mg Saccharomyces Boulardii (Florastor) 250 mg PO BIDWM [facility] Last Admin: 10/18/19 08:12 Dose: 250 mg Sodium Chloride (Normal Saline Flush 0.9%) 10 ml IVP 0100,0900,1700 [facility] Last Admin: 10/18/19 09:30 Dose: 20 ml Sodium Chloride (Normal Saline Flush 0.9%) 10 ml IVP PRN PRN PRN Reason: NEEDED PER PROVIDER ORDERS Last Admin: 10/17/19 19:58 Dose: 10 ml Sodium Chloride (Normal Saline Flush 0.9%) 20 ml IVP PRN PRN PRN Reason: After Blood Draw Last Admin: 10/15/19 04:53 Dose: 20 ml Thiamine HCl (Vitamin B-1) 100 mg PO DAILY [facility] Last Admin: 10/18/19 09:01 Dose: 100 mg Trazodone HCl (Desyrel) 200 mg PO QPM [facility] Last Admin: 10/17/19 20:38 Dose: 200 mg Insulin Lispro [Humalog] 20 - 25 units SQ DAILY 10/30/15 Baclofen 10 mg PO QID PRN 06/03/16 Escitalopram Oxalate [Lexapro] 40 mg PO DAILY 05/22/18 Simvastatin 20 mg PO QPM 05/22/18 Butalb/Acetam/Caff 50/325/40 [Fioricet] 1 tab PO Q4H PRN 01/22/19 Oxycodone HCl 10 mg PO QID 01/22/19 Prazosin HCl 5 mg PO QPM 01/23/19 Trazodone HCl 200 mg PO QPM 01/23/19 Dextroamphetamine/Amphetamine [Adderall Xr 20 mg Capsule] 20 mg PO DAILY 09/15/19 Dicyclomine HCl 20 mg PO QID PRN 09/15/19 Duloxetine HCl [Cymbalta] 120 mg PO DAILY 09/15/19 Levothyroxine [Synthroid] 112 mcg PO QDAC 09/15/19 Oxybutynin [Ditropan] 5 mg PO DAILY 09/15/19 Pantoprazole Sodium [Protonix] 20 mg PO QDAC 09/15/19 clonazePAM [Clonazepam] 1 mg PO TID PRN 09/15/19 Metoclopramide HCl 10 mg PO ACHS 10/14/19 Spironolactone 100 mg PO DAILY 10/14/19 Objective - Vital Signs/Intake & Output Reviewed Vital Signs: Yes Vital Signs: Vital Signs x48h Temp Pulse Resp BP Pulse Ox 10/18/19 15:34 36.8 C 74 20 142/97 H 99 10/18/19 15:00 68 15 148/88 H 100 10/18/19 14:00 91 16 142/95 H 10/18/19 13:00 85 24 135/62 H 99 10/18/19 11:59 36.5 C 76 22 139/92 H 100 10/18/19 11:00 60 22 141/91 H 10/18/19 10:00 58 L 22 142/84 H 99 10/18/19 08:59 77 22 128/77 100 Intake & Output: Intake & Output 10/15/19 10/16/19 10/17/19 10/18/19 23:59 23:59 23:59 23:59 Intake Total 6938.042 4829.367 3691.867 1520 Output Total 75 1325 1775 0 Balance 6863.042 3504.367 6085.471 4758 - Objective General Appearance: positive: No acute distress, Alert Eyes Bilateral: positive: PERRL ENT: positive: Pharynx nml Neck: positive: No JVD Respiratory: positive: Chest non-tender. negative: Wheezes, Rales, Rhonchi Cardiovascular: positive: Regular rate & rhythm. negative: Gallop/S4, Friction rub Abdomen: positive: Non-tender, No organomegaly, Nml bowel sounds, No distention Skin: positive: Warm, Dry Extremities: positive: Pedal edema Neurologic/Psychiatric: positive: Motor nml, Disoriented to person, Disoriented to place, Other (short term memory loss, tearfull, doesn't want to be here, flat affect.) - Lab Results Fish Bones: 10/18/19 09:20 10/18/19 09:20 Other Labs: Lab Results x24hrs 10/18/19 10/18/19 10/18/19 Range/Units 14:00 11:28 09:20 WBC (4.8-10.8) x10^3/uL RBC (4.20-5.40) 10^6/uL Hgb (12.0-16.0) g/dL Hct (37.0-47.0) % MCV (81.0-99.0) fL MCH (27.0-31.0) pg MCHC (32.0-36.0) g/dL RDW (12.0-15.0) % Plt Count (130-450) 10^3/uL MPV (7.9-10.8) fL Neut # (Auto) (1.5-6.6) 10^3/uL Lymph # (Auto) (1.5-3.5) 10^3/uL [place] # (Auto) (0.0-1.0) 10^3/uL Eos # (Auto) (0.0-0.7) 10^3/uL Baso # (Auto) (0.0-0.1) 10^3/uL Absolute Nucleated RBC x10^3/uL Nucleated RBC % /100WBC Manual Slide Review WBC Morphology (NORMAL) Platelet Estimate (NORMAL) Platelet Morphology (NORMAL) RBC Morph Micro Appear (NORMAL) Sodium 138 (135-145) mmol/L Potassium 4.5 (3.5-5.0) mmol/L Chloride 106 (101-111) mmol/L Carbon Dioxide 23 (21-32) mmol/L Anion Gap 9.0 (6-13) BUN 6 (6-20) mg/dL Creatinine 0.7 (0.4-1.0) mg/dL Estimated GFR (MDRD) 90 (>89) Glucose 267 H (70-100) mg/dL POC Whole Bld Glucose 124 H 224 H (70 - 100) mg/dL Calcium 8.2 L (8.5-10.3) mg/dL Phosphorus (2.5-4.6) mg/dL Magnesium (1.7-2.8) mg/dL Albumin (3.2-5.5) g/dL 10/18/19 10/18/19 10/18/19 Range/Units 09:20 07:30 04:35 WBC 4.3 L (4.8-10.8) x10^3/uL RBC 3.00 L (4.20-5.40) 10^6/uL Hgb 8.2 L (12.0-16.0) g/dL Hct 26.9 L (37.0-47.0) % MCV 89.7 (81.0-99.0) fL MCH 27.3 (27.0-31.0) pg MCHC 30.5 L (32.0-36.0) g/dL RDW 20.1 H (12.0-15.0) % Plt Count 249 (130-450) 10^3/uL MPV 10.5 (7.9-10.8) fL Neut # (Auto) 2.6 (1.5-6.6) 10^3/uL Lymph # (Auto) 1.1 L (1.5-3.5) 10^3/uL [place] # (Auto) 0.3 (0.0-1.0) 10^3/uL Eos # (Auto) 0.4 (0.0-0.7) 10^3/uL Baso # (Auto) 0.0 (0.0-0.1) 10^3/uL Absolute Nucleated RBC 0.00 x10^3/uL Nucleated RBC % 0.0 /100WBC Manual Slide Review Indicated WBC Morphology NORMAL APPEARANCE (NORMAL) Platelet Estimate NORMAL (130-450,000) (NORMAL) Platelet Morphology 1+ LARGE PLATELETS (NORMAL) RBC Morph Micro Appear 1+ POLYCHROMASIA (NORMAL) Sodium (135-145) mmol/L Potassium (3.5-5.0) mmol/L Chloride (101-111) mmol/L Carbon Dioxide (21-32) mmol/L Anion Gap (6-13) BUN (6-20) mg/dL Creatinine (0.4-1.0) mg/dL Estimated GFR (MDRD) (>89) Glucose (70-100) mg/dL POC Whole Bld Glucose 137 H (70 - 100) mg/dL Calcium (8.5-10.3) mg/dL Phosphorus 3.2 (2.5-4.6) mg/dL Magnesium 2.3 (1.7-2.8) mg/dL Albumin (3.2-5.5) g/dL 10/18/19 10/18/19 10/17/19 Range/Units 04:25 00:15 20:33 WBC (4.8-10.8) x10^3/uL RBC (4.20-5.40) 10^6/uL Hgb (12.0-16.0) g/dL Hct (37.0-47.0) % MCV (81.0-99.0) fL MCH (27.0-31.0) pg MCHC (32.0-36.0) g/dL RDW (12.0-15.0) % Plt Count (130-450) 10^3/uL MPV (7.9-10.8) fL Neut # (Auto) (1.5-6.6) 10^3/uL Lymph # (Auto) (1.5-3.5) 10^3/uL [place] # (Auto) (0.0-1.0) 10^3/uL Eos # (Auto) (0.0-0.7) 10^3/uL Baso # (Auto) (0.0-0.1) 10^3/uL Absolute Nucleated RBC x10^3/uL Nucleated RBC % /100WBC Manual Slide Review WBC Morphology (NORMAL) Platelet Estimate (NORMAL) Platelet Morphology (NORMAL) RBC Morph Micro Appear (NORMAL) Sodium (135-145) mmol/L Potassium 4.2 (3.5-5.0) mmol/L Chloride (101-111) mmol/L Carbon Dioxide (21-32) mmol/L Anion Gap (6-13) BUN (6-20) mg/dL Creatinine (0.4-1.0) mg/dL Estimated GFR (MDRD) (>89) Glucose (70-100) mg/dL POC Whole Bld Glucose 81 154 H (70 - 100) mg/dL Calcium 8.4 L (8.5-10.3) mg/dL Phosphorus (2.5-4.6) mg/dL Magnesium (1.7-2.8) mg/dL Albumin 2.5 L (3.2-5.5) g/dL 10/17/19 Range/Units 17:03 WBC (4.8-10.8) x10^3/uL RBC (4.20-5.40) 10^6/uL Hgb (12.0-16.0) g/dL Hct (37.0-47.0) % MCV (81.0-99.0) fL MCH (27.0-31.0) pg MCHC (32.0-36.0) g/dL RDW (12.0-15.0) % Plt Count (130-450) 10^3/uL MPV (7.9-10.8) fL Neut # (Auto) (1.5-6.6) 10^3/uL Lymph # (Auto) (1.5-3.5) 10^3/uL [place] # (Auto) (0.0-1.0) 10^3/uL Eos # (Auto) (0.0-0.7) 10^3/uL Baso # (Auto) (0.0-0.1) 10^3/uL Absolute Nucleated RBC x10^3/uL Nucleated RBC % /100WBC Manual Slide Review WBC Morphology (NORMAL) Platelet Estimate (NORMAL) Platelet Morphology (NORMAL) RBC Morph Micro Appear (NORMAL) Sodium (135-145) mmol/L Potassium (3.5-5.0) mmol/L Chloride (101-111) mmol/L Carbon Dioxide (21-32) mmol/L Anion Gap (6-13) BUN (6-20) mg/dL Creatinine (0.4-1.0) mg/dL Estimated GFR (MDRD) (>89) Glucose (70-100) mg/dL POC Whole Bld Glucose 246 H (70 - 100) mg/dL Calcium (8.5-10.3) mg/dL Phosphorus (2.5-4.6) mg/dL Magnesium (1.7-2.8) mg/dL Albumin (3.2-5.5) g/dL ABX Reporting Has patient been on IV antibiotics over the past 48 hours?: Yes Assessment/Plan - Problem List (1) Osteomyelitis of ankle Impression: She was at [place] 09/29-10/06. Home until admit here. She received PCN until admit here and for 3 days we did not know she had to be on PCN. So she received ~15 days, off 3 days, resumed last night. She was to continue abx until 10/20 so new date for stopping will be 10/23/19. has a PICC line in place. orders will be continued for mepilex ag on right thigh and keep clean and dry, do not get wet wash graft daily with warm soapy water on washcloth an then dry to then apply xeroform with bacitracin over the mesh pattern, cover with 4x4 then kerlix to secure in place. Plan: to complete abx on 10/23 She is medically stable. Try to place Qualifiers: Osteomyelitis type: other chronic Laterality: right Qualified Code(s): M86.671 - Other chronic osteomyelitis, right ankle and foot (2) DKA (diabetic ketoacidosis) Impression: Resolved. Present on admission. 1116 am, she became hypoglycemic. Lantus was adjusted and reduced from 25 units to 15 units. She continues to be on sliding scale NovoLog 2 to 10 units before meals. I initially thought that I would have to give her D5, but glucose rebounded to 150, 253, 226, 233 by late morning of 11/26. So no D5 Continue 3 units of NovoLog to each meal, continue Lantus 15 units at night. Today she has been 81, 137, 224 Qualifiers: Diabetes mellitus type: type 1 (3) Campylobacter diarrhea Impression: WBC now normal and she has no abdominal pain. Plan: no abx for this particuar illness for now. (4) Alcohol use Impression: so far CIWA meds have not been needed. was receiving a bannana bag which will be switched to oral now.
[2019-10-18] MEDS: traZODone 50 MG TABLET PO SCH (20:26)
[2019-10-18] MEDS: PRAZOSIN 1 MG CAPSULE PO SCH (21:53)
[2019-10-18] MEDS: INSULIN GLARGINE 300 UNIT/3 ML PEN SUBQ SCH (21:53)
[2019-10-19] MEDS: IBUPROFEN 600 MG TABLET PO SCH ×4 (00:09→17:35)
[2019-10-19] MEDS: SODIUM CHLORIDE FLUSH 0.9% 10 ML SYRINGE IVP SCH ×3 (00:10→17:35)
[2019-10-19] MEDS: SODIUM CHLORIDE 0.9% IV SCH ×6 (01:43→23:00)
[2019-10-19] MEDS: PENICILLIN POTASSIUM IV SCH ×6 (01:43→23:00)
[2019-10-19 05:20] LABS: BASOPHILS % (AUTO) 0.4 %; EOSINOPHILS # (AUTO) 0.6 10^3/uL (0.0-0.7); EOSINOPHILS % (AUTO) 11.4 %; HGB - HEMOGLOBIN 8.9 g/dL (12.0-16.0); LYMPHOCYTES % (AUTO) 19.8 %; MEAN CORPUSCULAR HEMOGLOBIN 27.6 pg (27.0-31.0); MEAN CORPUSCULAR HGB CONC 30.8 g/dL (32.0-36.0); MEAN CORPUSCULAR VOLUME 89.5 fL (81.0-99.0); MONOCYTES # (AUTO) 0.3 10^3/uL (0.0-1.0); MONOCYTES % (AUTO) 6.7 %; NEUTROPHILS % (AUTO) 61.3 %; PLT - PLATELET COUNT 267 10^3/uL (130-450); RED BLOOD COUNT 3.23 10^6/uL (4.20-5.40); RED CELL DISTRIBUTION WIDTH 20.3 % (12.0-15.0); WHITE BLOOD COUNT 4.9 x10^3/uL (4.8-10.8)
[2019-10-19 05:25] LABS: CALCIUM 8.4 mg/dL (8.5-10.3); CREATININE 0.7 mg/dL (0.4-1.0); MAGNESIUM 1.8 mg/dL (1.7-2.8); PHOSPHORUS 4.2 mg/dL (2.5-4.6)
[2019-10-19 05:38] LABS: PLATELET ESTIMATE, MANUAL NORMAL (130-450,000) (NORMAL)
[2019-10-19] MEDS: oxyCODONE 5 MG TABLET PO PRN ×3 (06:11→18:58)
[2019-10-19] MEDS: METOCLOPRAMIDE 10 MG TABLET PO SCH ×4 (06:39→21:24)
[2019-10-19] MEDS: LEVOTHYROXINE 112 MCG TABLET PO SCH (06:41)
[2019-10-19] MEDS: ASPIRIN 325 MG TABLET PO SCH ×2 (08:06→17:35)
[2019-10-19] MEDS: SACCHAROMYCES BOULARDII 250 MG CAPSULE PO SCH ×2 (08:06→17:35)
[2019-10-19] MEDS: FERROUS GLUCONATE 324 MG TABLET PO SCH (08:06)
[2019-10-19] MEDS: INSULIN ASPART 300 UNIT/3 ML PEN SUBQ SCH ×7 (08:09→21:27)
[2019-10-19] MEDS: PRENATAL VITAMIN TABLET PO SCH (08:13)
--- NOTE | 2019-10-19 08:32 | PROVIDER PROGRESS NOTE ---
Subjective - Prog Note Date Prog Note Date: 10/19/19 Prog Note Time: 08:32 - Subjective Pt reports feeling: No change Subjective: she became more oriented the morning of 10/17 and has continued to improve. Lucid. Speech normal. Still tearful bc wants to go home Current Medications - Current Medications Current Medications: Active Medications Acetaminophen/Butalbital/Caffeine (Fioricet) 1 tab PO Q4H PRN PRN Reason: SEVERE HEADACHE Last Admin: 10/18/19 11:09 Dose: 1 tab Aspirin (Suri) 325 mg PO BIDWM [facility] Last Admin: 10/19/19 08:06 Dose: 325 mg Bacitracin (Bacitracin) 1 packet TOP DAILY [facility] Last Admin: 10/18/19 14:20 Dose: 1 packet Baclofen (Lioresal) 10 mg PO QID PRN PRN Reason: Spasms Clonazepam (Klonopin) 1 mg PO TID PRN PRN Reason: Anxiety Last Admin: 10/18/19 11:09 Dose: 1 mg Cyanocobalamin (Vitamin B-12) 500 mcg PO DAILY [facility] Last Admin: 10/18/19 09:11 Dose: 500 mcg Duloxetine HCl (Cymbalta) 120 mg PO DAILY [facility] Last Admin: 10/18/19 09:10 Dose: 120 mg Enoxaparin Sodium (Lovenox) 40 mg SUBQ DAILY [facility] Last Admin: 10/18/19 09:17 Dose: 40 mg Escitalopram Oxalate (Lexapro) 40 mg PO DAILY [facility] Last Admin: 10/18/19 09:10 Dose: 40 mg Ferrous Gluconate (Fergon) 324 mg PO DAILYWM [facility] Last Admin: 10/19/19 08:06 Dose: 324 mg Haloperidol (Haldol Inj) 0.5 mg IVP Q6H PRN PRN Reason: Agitation Last Admin: 10/15/19 03:52 Dose: 0.5 mg Penicillin G Potassium 4,000, (000 unit/ Sodium Chloride) 100 mls @ 200 mls/hr IV Q4H [facility] Last Infusion: 10/19/19 07:24 Dose: Infused Ibuprofen (Motrin) 600 mg PO Q6HR [facility] Last Admin: 10/19/19 05:55 Dose: 600 mg Insulin Aspart (Novolog) 3 - 11 unit SUBQ 0800,1200,1700,2100 [facility]; Protocol Last Admin: 10/19/19 08:09 Dose: Not Given Insulin Aspart (Novolog) 3 unit SUBQ TIDWM [facility] Last Admin: 10/19/19 08:10 Dose: 3 unit Insulin Glargine (Lantus Solostar) 15 unit SUBQ QPM [facility] Last Admin: 10/18/19 21:53 Dose: 15 unit Levothyroxine Sodium (Synthroid) 112 mcg PO QDAC [facility] Last Admin: 10/19/19 06:41 Dose: 112 mcg Metoclopramide HCl (Reglan) 10 mg PO ACHS [facility] Last Admin: 10/19/19 06:39 Dose: 10 mg Nicotine (Nicoderm) 1 patch TOP DAILY [facility] Last Admin: 10/18/19 08:13 Dose: 1 patch Oxybutynin Chloride (Ditropan) 5 mg PO DAILY [facility] Last Admin: 10/18/19 08:13 Dose: 5 mg Oxycodone HCl (Roxicodone) 5 mg PO Q4HR PRN PRN Reason: PAIN Last Admin: 10/19/19 06:11 Dose: 5 mg Prazosin HCl (Minipress) 5 mg PO QPM [facility] Last Admin: 10/18/19 21:53 Dose: 5 mg Multivit/Folic Acid/Iron (Trinatal Rx 1) 1 tab PO DAILYWM [facility] Last Admin: 10/19/19 08:13 Dose: 1 tab Prochlorperazine Edisylate (Compazine Inj) 10 mg IVP Q6HR PRN PRN Reason: Nausea / Vomiting Last Admin: 10/16/19 18:00 Dose: 10 mg Saccharomyces Boulardii (Florastor) 250 mg PO BIDWM [facility] Last Admin: 10/19/19 08:06 Dose: 250 mg Sodium Chloride (Normal Saline Flush 0.9%) 10 ml IVP 0100,0900,1700 [facility] Last Admin: 10/19/19 00:10 Dose: 10 ml Sodium Chloride (Normal Saline Flush 0.9%) 10 ml IVP PRN PRN PRN Reason: NEEDED PER PROVIDER ORDERS Last Admin: 10/17/19 19:58 Dose: 10 ml Sodium Chloride (Normal Saline Flush 0.9%) 20 ml IVP PRN PRN PRN Reason: After Blood Draw Last Admin: 10/15/19 04:53 Dose: 20 ml Thiamine HCl (Vitamin B-1) 100 mg PO DAILY [facility] Last Admin: 10/18/19 09:01 Dose: 100 mg Trazodone HCl (Desyrel) 200 mg PO QPM [facility] Last Admin: 10/18/19 20:26 Dose: 200 mg Insulin Lispro [Humalog] 20 - 25 units SQ DAILY 10/30/15 Baclofen 10 mg PO QID PRN 06/03/16 Escitalopram Oxalate [Lexapro] 40 mg PO DAILY 05/22/18 Simvastatin 20 mg PO QPM 05/22/18 Butalb/Acetam/Caff 50/325/40 [Fioricet] 1 tab PO Q4H PRN 01/22/19 Oxycodone HCl 10 mg PO QID 01/22/19 Prazosin HCl 5 mg PO QPM 01/23/19 Trazodone HCl 200 mg PO QPM 01/23/19 Dextroamphetamine/Amphetamine [Adderall Xr 20 mg Capsule] 20 mg PO DAILY 09/15/19 Dicyclomine HCl 20 mg PO QID PRN 09/15/19 Duloxetine HCl [Cymbalta] 120 mg PO DAILY 09/15/19 Levothyroxine [Synthroid] 112 mcg PO QDAC 09/15/19 Oxybutynin [Ditropan] 5 mg PO DAILY 09/15/19 Pantoprazole Sodium [Protonix] 20 mg PO QDAC 09/15/19 clonazePAM [Clonazepam] 1 mg PO TID PRN 09/15/19 Metoclopramide HCl 10 mg PO ACHS 10/14/19 Spironolactone 100 mg PO DAILY 10/14/19 Objective - Vital Signs/Intake & Output Reviewed Vital Signs: Yes Intake & Output: Intake & Output 10/16/19 10/17/19 10/18/19 10/19/19 23:59 23:59 23:59 23:59 Intake Total 4829.367 3691.867 2493.333 560 Output Total 1325 1775 0 Balance 3504.367 1360.143 1248.333 560 - Objective General Appearance: positive: Alert Eyes Bilateral: positive: PERRL ENT: positive: Pharynx nml Respiratory: positive: Chest non-tender, No respiratory distress. negative: Wheezes, Rales, Rhonchi Cardiovascular: positive: Regular rate & rhythm. negative: Systolic murmur, Gallop/S4 Abdomen: positive: Non-tender, No organomegaly, Nml bowel sounds, No distention Skin: positive: Warm, Dry Extremities: positive: No pedal edema, Other (external fixation device right tibia, ankle) Neurologic/Psychiatric: positive: Oriented x3, CN's nml (2-12), Motor nml, Depressed mood/affect - Lab Results Fish Bones: 10/19/19 05:00 10/19/19 05:00 Other Labs: Lab Results x24hrs 10/19/19 10/19/19 10/19/19 Range/Units 05:00 05:00 04:29 WBC 4.9 (4.8-10.8) x10^3/uL RBC 3.23 L (4.20-5.40) 10^6/uL Hgb 8.9 L (12.0-16.0) g/dL Hct 28.9 L (37.0-47.0) % MCV 89.5 (81.0-99.0) fL MCH 27.6 (27.0-31.0) pg MCHC 30.8 L (32.0-36.0) g/dL RDW 20.3 H (12.0-15.0) % Plt Count 267 (130-450) 10^3/uL MPV 11.0 H (7.9-10.8) fL Neut # (Auto) 3.0 (1.5-6.6) 10^3/uL Lymph # (Auto) 1.0 L (1.5-3.5) 10^3/uL [place] # (Auto) 0.3 (0.0-1.0) 10^3/uL Eos # (Auto) 0.6 (0.0-0.7) 10^3/uL Baso # (Auto) 0.0 (0.0-0.1) 10^3/uL Absolute Nucleated RBC 0.00 x10^3/uL Nucleated RBC % 0.0 /100WBC Manual Slide Review Indicated WBC Morphology (NORMAL) Platelet Estimate NORMAL (130-450,000) (NORMAL) Platelet Morphology (NORMAL) RBC Morph Micro Appear 1+ OVALOCYTES (NORMAL) Sodium 138 (135-145) mmol/L Potassium 4.1 (3.5-5.0) mmol/L Chloride 106 (101-111) mmol/L Carbon Dioxide 26 (21-32) mmol/L Anion Gap 6.0 (6-13) BUN 7 (6-20) mg/dL Creatinine 0.7 (0.4-1.0) mg/dL Estimated GFR (MDRD) 90 (>89) Glucose 162 H (70-100) mg/dL POC Whole Bld Glucose 154 H (70 - 100) mg/dL Calcium 8.4 L (8.5-10.3) mg/dL Phosphorus 4.2 (2.5-4.6) mg/dL Magnesium 1.8 (1.7-2.8) mg/dL 10/19/19 10/18/19 10/18/19 Range/Units 03:55 20:41 16:45 WBC (4.8-10.8) x10^3/uL RBC (4.20-5.40) 10^6/uL Hgb (12.0-16.0) g/dL Hct (37.0-47.0) % MCV (81.0-99.0) fL MCH (27.0-31.0) pg MCHC (32.0-36.0) g/dL RDW (12.0-15.0) % Plt Count (130-450) 10^3/uL MPV (7.9-10.8) fL Neut # (Auto) (1.5-6.6) 10^3/uL Lymph # (Auto) (1.5-3.5) 10^3/uL [place] # (Auto) (0.0-1.0) 10^3/uL Eos # (Auto) (0.0-0.7) 10^3/uL Baso # (Auto) (0.0-0.1) 10^3/uL Absolute Nucleated RBC x10^3/uL Nucleated RBC % /100WBC Manual Slide Review WBC Morphology (NORMAL) Platelet Estimate (NORMAL) Platelet Morphology (NORMAL) RBC Morph Micro Appear (NORMAL) Sodium (135-145) mmol/L Potassium (3.5-5.0) mmol/L Chloride (101-111) mmol/L Carbon Dioxide (21-32) mmol/L Anion Gap (6-13) BUN (6-20) mg/dL Creatinine (0.4-1.0) mg/dL Estimated GFR (MDRD) (>89) Glucose (70-100) mg/dL POC Whole Bld Glucose 38 L* 308 H 145 H (70 - 100) mg/dL Calcium (8.5-10.3) mg/dL Phosphorus (2.5-4.6) mg/dL Magnesium (1.7-2.8) mg/dL 10/18/19 10/18/19 10/18/19 Range/Units 14:00 11:28 09:20 WBC (4.8-10.8) x10^3/uL RBC (4.20-5.40) 10^6/uL Hgb (12.0-16.0) g/dL Hct (37.0-47.0) % MCV (81.0-99.0) fL MCH (27.0-31.0) pg MCHC (32.0-36.0) g/dL RDW (12.0-15.0) % Plt Count (130-450) 10^3/uL MPV (7.9-10.8) fL Neut # (Auto) (1.5-6.6) 10^3/uL Lymph # (Auto) (1.5-3.5) 10^3/uL Maverick # (Auto) (0.0-1.0) 10^3/uL Eos # (Auto) (0.0-0.7) 10^3/uL Baso # (Auto) (0.0-0.1) 10^3/uL Absolute Nucleated RBC x10^3/uL Nucleated RBC % /100WBC Manual Slide Review WBC Morphology (NORMAL) Platelet Estimate (NORMAL) Platelet Morphology (NORMAL) RBC Morph Micro Appear (NORMAL) Sodium 138 (135-145) mmol/L Potassium 4.5 (3.5-5.0) mmol/L Chloride 106 (101-111) mmol/L Carbon Dioxide 23 (21-32) mmol/L Anion Gap 9.0 (6-13) BUN 6 (6-20) mg/dL Creatinine 0.7 (0.4-1.0) mg/dL Estimated GFR (MDRD) 90 (>89) Glucose 267 H (70-100) mg/dL POC Whole Bld Glucose 124 H 224 H (70 - 100) mg/dL Calcium 8.2 L (8.5-10.3) mg/dL Phosphorus (2.5-4.6) mg/dL Magnesium (1.7-2.8) mg/dL 10/18/19 Range/Units 09:20 WBC 4.3 L (4.8-10.8) x10^3/uL RBC 3.00 L (4.20-5.40) 10^6/uL Hgb 8.2 L (12.0-16.0) g/dL Hct 26.9 L (37.0-47.0) % MCV 89.7 (81.0-99.0) fL MCH 27.3 (27.0-31.0) pg MCHC 30.5 L (32.0-36.0) g/dL RDW 20.1 H (12.0-15.0) % Plt Count 249 (130-450) 10^3/uL MPV 10.5 (7.9-10.8) fL Neut # (Auto) 2.6 (1.5-6.6) 10^3/uL Lymph # (Auto) 1.1 L (1.5-3.5) 10^3/uL Maverick # (Auto) 0.3 (0.0-1.0) 10^3/uL Eos # (Auto) 0.4 (0.0-0.7) 10^3/uL Baso # (Auto) 0.0 (0.0-0.1) 10^3/uL Absolute Nucleated RBC 0.00 x10^3/uL Nucleated RBC % 0.0 /100WBC Manual Slide Review Indicated WBC Morphology NORMAL APPEARANCE (NORMAL) Platelet Estimate NORMAL (130-450,000) (NORMAL) Platelet Morphology 1+ LARGE PLATELETS (NORMAL) RBC Morph Micro Appear 1+ POLYCHROMASIA (NORMAL) Sodium (135-145) mmol/L Potassium (3.5-5.0) mmol/L Chloride (101-111) mmol/L Carbon Dioxide (21-32) mmol/L Anion Gap (6-13) BUN (6-20) mg/dL Creatinine (0.4-1.0) mg/dL Estimated GFR (MDRD) (>89) Glucose (70-100) mg/dL POC Whole Bld Glucose (70 - 100) mg/dL Calcium (8.5-10.3) mg/dL Phosphorus (2.5-4.6) mg/dL Magnesium (1.7-2.8) mg/dL ABX Reporting Has patient been on IV antibiotics over the past 48 hours?: Yes Assessment/Plan - Problem List (1) Osteomyelitis of ankle Impression: She was at [facility] 09/29-10/06. Home until admit here. She received PCN until admit here and for 3 days we did not know she had to be on PCN. So she received ~15 days, off 3 days, resumed last night. She was to continue abx until 10/20 so new date for stopping will be 10/23/19. has a PICC line in place. orders will be continued for mepilex ag on right thigh and keep clean and dry, do not get wet wash graft daily with warm soapy water on washcloth an then dry to then apply xeroform with bacitracin over the mesh pattern, cover with 4x4 then kerlix to secure in place. Plan: to complete abx on 10/23 She is medically stable since 10/17. Try to place since can't be at home. 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 Impression: Presented as DKA that is now resolved. 10/17 am, she became hypoglycemic. Lantus was adjusted and reduced from 25 units to 15 units. She continues to be on sliding scale NovoLog 2 to 10 units before meals. I initially thought that I would have to give her D5, but glucose rebounded to 150, 253, 226, 233 by late morning of 10/17. So no D5 Continue 3 units of NovoLog to each meal, continue Lantus 15 units at night. 10/18: 81, 137, 224 10/19: she was hypoglycemic to the 30's this am and received juice and rebounded to 150. Lantus switched to be given in the morning as opposed to evening. Qualifiers: Diabetes mellitus type: type 1 (3) Campylobacter diarrhea Impression: WBC now normal and she has no abdominal pain. Plan: no abx for this particuar illness for now. (4) Alcohol use Impression: so far CIWA meds have not been needed. was receiving a bannana bag which will be switched to oral now.
[2019-10-19] MEDS: ENOXAPARIN 40 MG/0.4 ML SYRINGE SUBQ SCH (08:42)
[2019-10-19] MEDS: NICOTINE 14 MG PATCH TOP SCH (08:42)
[2019-10-19] MEDS: OXYBUTYNIN 5MG TABLET PO SCH (08:43)
[2019-10-19] MEDS: ESCITALOPRAM 10 MG TABLET PO SCH (08:43)
[2019-10-19] MEDS: BACITRACIN ZINC OINT 1 PACKET TOP SCH (08:43)
[2019-10-19] MEDS: CYANOCOBALAMIN 500 MCG TABLET PO SCH (08:43)
[2019-10-19] MEDS: DULoxetine 30 MG CAPSULE PO SCH (08:44)
[2019-10-19] MEDS: THIAMINE 100 MG TABLET PO SCH (08:47)
[2019-10-19] MEDS ORDERED: SODIUM CHLORIDE 0.9% 100ML 100 ML IV ONE ×2 (09:26→13:30)
[2019-10-19] MEDS: PROCHLORPERAZINE 10 MG/2 ML VIAL IVP PRN (12:15)
[2019-10-19] MEDS: clonazePAM 0.5 MG TABLET PO PRN (13:38)
[2019-10-19] MEDS: PRAZOSIN 1 MG CAPSULE PO SCH (21:22)
[2019-10-19] MEDS: traZODone 50 MG TABLET PO SCH (21:23)
[2019-10-19] MEDS: BACLOFEN 10 MG TABLET PO PRN (21:24)
[2019-10-20] MEDS: PENICILLIN POTASSIUM IV SCH ×6 (01:33→22:19)
[2019-10-20] MEDS: SODIUM CHLORIDE FLUSH 0.9% 10 ML SYRINGE IVP SCH ×3 (01:33→07:00)
[2019-10-20] MEDS: SODIUM CHLORIDE 0.9% IV SCH ×6 (01:33→22:19)
[2019-10-20] MEDS: IBUPROFEN 600 MG TABLET PO SCH ×5 (01:33→17:33)
[2019-10-20] MEDS: METOCLOPRAMIDE 10 MG TABLET PO SCH ×4 (06:59→21:10)
[2019-10-20] MEDS: oxyCODONE 5 MG TABLET PO PRN ×4 (06:59→19:58)
[2019-10-20] MEDS: LEVOTHYROXINE 112 MCG TABLET PO SCH (07:00)
[2019-10-20] MEDS: INSULIN ASPART 300 UNIT/3 ML PEN SUBQ SCH ×6 (08:21→21:07)
[2019-10-20] MEDS: INSULIN GLARGINE 300 UNIT/3 ML PEN SUBQ SCH (08:22)
[2019-10-20] MEDS: ENOXAPARIN 40 MG/0.4 ML SYRINGE SUBQ SCH (08:24)
[2019-10-20] MEDS: NICOTINE 14 MG PATCH TOP SCH (08:26)
[2019-10-20] MEDS: ESCITALOPRAM 10 MG TABLET PO SCH (08:27)
[2019-10-20] MEDS: ASPIRIN 325 MG TABLET PO SCH ×2 (08:28→17:33)
[2019-10-20] MEDS: SACCHAROMYCES BOULARDII 250 MG CAPSULE PO SCH ×2 (08:28→17:33)
[2019-10-20] MEDS: PRENATAL VITAMIN TABLET PO SCH (08:28)
[2019-10-20] MEDS: FERROUS GLUCONATE 324 MG TABLET PO SCH (08:28)
[2019-10-20] MEDS: THIAMINE 100 MG TABLET PO SCH (08:29)
[2019-10-20] MEDS: BACLOFEN 10 MG TABLET PO PRN ×2 (08:29→21:09)
[2019-10-20] MEDS: OXYBUTYNIN 5MG TABLET PO SCH (08:29)
[2019-10-20] MEDS: CYANOCOBALAMIN 500 MCG TABLET PO SCH (08:29)
[2019-10-20] MEDS: DULoxetine 30 MG CAPSULE PO SCH (08:29)
[2019-10-20] MEDS: BACITRACIN ZINC OINT 1 PACKET TOP SCH (08:30)
--- NOTE | 2019-10-20 09:23 | PROVIDER PROGRESS NOTE ---
Subjective - Prog Note Date Prog Note Date: 10/20/19 Prog Note Time: 09:23 - Subjective Subjective: she is restless. hasn't gotten out of bed in days bc she knows she can't weight bear on right ankle. otherwise she has no new complaints for me. pain is co ntrolled. eating "ok". she denies cp, sob, abd pain. hasn't had a BM Current Medications - Current Medications Current Medications: Active Medications Acetaminophen/Butalbital/Caffeine (Fioricet) 1 tab PO Q4H PRN PRN Reason: SEVERE HEADACHE Last Admin: 10/18/19 11:09 Dose: 1 tab Aspirin (Suri) 325 mg PO BIDWM [facility] Last Admin: 10/20/19 08:28 Dose: 325 mg Bacitracin (Bacitracin) 1 packet TOP DAILY [facility] Last Admin: 10/20/19 08:30 Dose: 1 packet Baclofen (Lioresal) 10 mg PO QID PRN PRN Reason: Spasms Last Admin: 10/20/19 08:29 Dose: 10 mg Clonazepam (Klonopin) 1 mg PO TID PRN PRN Reason: Anxiety Last Admin: 10/19/19 13:38 Dose: 1 mg Cyanocobalamin (Vitamin B-12) 500 mcg PO DAILY [facility] Last Admin: 10/20/19 08:29 Dose: 500 mcg Duloxetine HCl (Cymbalta) 120 mg PO DAILY [facility] Last Admin: 10/20/19 08:29 Dose: 120 mg Enoxaparin Sodium (Lovenox) 40 mg SUBQ DAILY [facility] Last Admin: 10/20/19 08:24 Dose: 40 mg Escitalopram Oxalate (Lexapro) 40 mg PO DAILY [facility] Last Admin: 10/20/19 08:27 Dose: 40 mg Ferrous Gluconate (Fergon) 324 mg PO DAILYWM [facility] Last Admin: 10/20/19 08:28 Dose: 324 mg Penicillin G Potassium 4,000, (000 unit/ Sodium Chloride) 100 mls @ 200 mls/hr IV Q4H [facility] Last Infusion: 10/20/19 09:16 Dose: Infused Ibuprofen (Motrin) 600 mg PO Q6HR [facility] Last Admin: 10/20/19 06:59 Dose: 600 mg Insulin Aspart (Novolog) 3 - 11 unit SUBQ 0800,1200,1700,2100 [facility]; Protocol Last Admin: 10/20/19 08:21 Dose: 11 unit Insulin Aspart (Novolog) 3 unit SUBQ TIDWM [facility] Last Admin: 10/20/19 08:22 Dose: 3 unit Insulin Glargine (Lantus Solostar) 15 unit SUBQ QDBREAKFAST [facility] Last Admin: 10/20/19 08:22 Dose: 15 unit Levothyroxine Sodium (Synthroid) 112 mcg PO QDAC [facility] Last Admin: 10/20/19 07:00 Dose: 112 mcg Metoclopramide HCl (Reglan) 10 mg PO ACHS [facility] Last Admin: 10/20/19 06:59 Dose: 10 mg Nicotine (Nicoderm) 1 patch TOP DAILY [facility] Last Admin: 10/20/19 08:26 Dose: 1 patch Oxybutynin Chloride (Ditropan) 5 mg PO DAILY [facility] Last Admin: 10/20/19 08:29 Dose: 5 mg Oxycodone HCl (Roxicodone) 5 mg PO Q4HR PRN PRN Reason: PAIN Last Admin: 10/20/19 06:59 Dose: 5 mg Prazosin HCl (Minipress) 5 mg PO QPM [facility] Last Admin: 10/19/19 21:22 Dose: 5 mg Multivit/Folic Acid/Iron (Trinatal Rx 1) 1 tab PO DAILYWM [facility] Last Admin: 10/20/19 08:28 Dose: 1 tab Prochlorperazine Edisylate (Compazine Inj) 10 mg IVP Q6HR PRN PRN Reason: Nausea / Vomiting Last Admin: 10/19/19 12:15 Dose: 10 mg Saccharomyces Boulardii (Florastor) 250 mg PO BIDWM [facility] Last Admin: 10/20/19 08:28 Dose: 250 mg Sodium Chloride (Normal Saline Flush 0.9%) 10 ml IVP 0100,0900,1700 [facility] Last Admin: 10/20/19 07:00 Dose: 10 ml Sodium Chloride (Normal Saline Flush 0.9%) 10 ml IVP PRN PRN PRN Reason: NEEDED PER PROVIDER ORDERS Last Admin: 10/17/19 19:58 Dose: 10 ml Sodium Chloride (Normal Saline Flush 0.9%) 20 ml IVP PRN PRN PRN Reason: After Blood Draw Last Admin: 10/15/19 04:53 Dose: 20 ml Thiamine HCl (Vitamin B-1) 100 mg PO DAILY [facility] Last Admin: 10/20/19 08:29 Dose: 100 mg Trazodone HCl (Desyrel) 200 mg PO QPM [facility] Last Admin: 10/19/19 21:23 Dose: 200 mg Insulin Lispro [Humalog] 20 - 25 units SQ DAILY 10/30/15 Baclofen 10 mg PO QID PRN 06/03/16 Escitalopram Oxalate [Lexapro] 40 mg PO DAILY 05/22/18 Simvastatin 20 mg PO QPM 05/22/18 Butalb/Acetam/Caff 50/325/40 [Fioricet] 1 tab PO Q4H PRN 01/22/19 Oxycodone HCl 10 mg PO QID 01/22/19 Prazosin HCl 5 mg PO QPM 01/23/19 Trazodone HCl 200 mg PO QPM 01/23/19 Dextroamphetamine/Amphetamine [Adderall Xr 20 mg Capsule] 20 mg PO DAILY 09/15/19 Dicyclomine HCl 20 mg PO QID PRN 09/15/19 Duloxetine HCl [Cymbalta] 120 mg PO DAILY 09/15/19 Levothyroxine [Synthroid] 112 mcg PO QDAC 09/15/19 Oxybutynin [Ditropan] 5 mg PO DAILY 09/15/19 Pantoprazole Sodium [Protonix] 20 mg PO QDAC 09/15/19 clonazePAM [Clonazepam] 1 mg PO TID PRN 09/15/19 Metoclopramide HCl 10 mg PO ACHS 10/14/19 Spironolactone 100 mg PO DAILY 10/14/19 Objective - Vital Signs/Intake & Output Reviewed Vital Signs: Yes Vital Signs: Vital Signs x48h Temp Pulse Resp BP Pulse Ox 10/20/19 07:14 37 C 92 18 129/80 98 Intake & Output: Intake & Output 10/17/19 10/18/19 10/19/19 10/20/19 23:59 23:59 23:59 23:59 Intake Total 3691.867 2493.333 1960 300 Output Total 1775 0 1825 Balance 8573.574 0642.333 135 300 - Objective General Appearance: positive: No acute distress, Alert Eyes Bilateral: positive: PERRL, EOMI ENT: positive: Pharynx nml, No signs of dehydration Neck: positive: No JVD Respiratory: positive: Chest non-tender. negative: Wheezes, Rales, Rhonchi Cardiovascular: positive: Regular rate & rhythm. negative: Gallop/S4, Friction rub Abdomen: positive: Non-tender, No organomegaly, Nml bowel sounds, No distention Skin: positive: Warm, Dry Extremities: positive: Full ROM, No pedal edema, Other (right ankles and tib w external fixtures. skin sites are clean, no drainage, no redness or heat) Neurologic/Psychiatric: positive: CN's nml (2-12), Motor nml, Disoriented to time (but knows it's week), Depressed mood/affect, Other (she appears to manifest cognitive deficits. slow to answer and sometimes confused by having to answer) - Lab Results Fish Bones: 10/19/19 05:00 10/19/19 05:00 Other Labs: Lab Results x24hrs 10/20/19 10/20/19 10/19/19 Range/Units 06:50 04:03 20:48 POC Whole Bld Glucose 331 H 242 H 206 H (70 - 100) mg/dL 10/19/19 10/19/19 Range/Units 16:59 11:38 POC Whole Bld Glucose 130 H 191 H (70 - 100) mg/dL ABX Reporting Has patient been on IV antibiotics over the past 48 hours?: Yes Assessment/Plan - Problem List (1) Osteomyelitis of ankle Impression: No change for 3 days. She was at [place] 09/29-10/06. Home until admit here. She received PCN until admit here and for 3 days we did not know she had to be on PCN. So she received ~15 days, off 3 days, resumed last night. She was to continue abx until 10/20 so new date for stopping will be 10/23/19. has a PICC line in place. orders will be continued for mepilex ag on right thigh and keep clean and dry, do not get wet wash graft daily with warm soapy water on washcloth an then dry to then apply xeroform with bacitracin over the mesh pattern, cover with 4x4 then kerlix to secure in place. Plan: to complete abx on 10/23 She is medically stable since 10/17. Try to place since can't be at home. We are awaiting response from SNFs Qualifiers: Osteomyelitis type: other chronic Laterality: right Qualified Code(s): M86.671 - Other chronic osteomyelitis, right ankle and foot (2)Type 1 DM, uncontrolled, with complication (charcot joint), with custodial use of insulin. Impression: Presented as DKA that is now resolved. 10/17 am, she became hypoglycemic. Lantus was adjusted and reduced from 25 units to 15 units. She continues to be on sliding scale NovoLog 2 to 10 units before meals. I initially thought that I would have to give her D5, but glucose rebounded to 150, 253, 226, 233 by late morning of 10/17. So no D5 Continue 3 units of NovoLog to each meal, continue Lantus 15 units at night. 10/18: 81, 137, 224 10/19: she was hypoglycemic to the 30's this am and received juice and rebounded to 150. Lantus switched to be given in the morning as opposed to evening. 10/20: She did not have lantus last night and switched to this morning. Glucose was 300's this morning. Hopefully as day goes on she will come down. Qualifiers: Diabetes mellitus type: type 1 (3) Campylobacter diarrhea Impression: WBC now normal and she has no abdominal pain. Plan: no abx for this particuar illness for now. (4) Alcohol use Impression: so far CIWA meds have not been needed. was receiving a bannana bag which will be switched to oral now.
[2019-10-20] MEDS: POLYETHYLENE GLYCOL 3350 17 GM PACKET PO SCH (11:42)
[2019-10-20] MEDS: SODIUM CHLORIDE FLUSH 0.9% 10 ML SYRINGE IVP PRN (13:27)
--- NOTE | 2019-10-20 14:34 | XRAY Report ---
Reason: loosening of fixation device Procedure Date: 10/20/2019 Accession Number: [id number] / [id number] Procedure: XR - Ankle 2 View RT CPT Code: Final Report FULL RESULT: EXAM: RIGHT ANKLE RADIOGRAPHY EXAM DATE: 10/20/2019 01:18 PM. CLINICAL HISTORY: Loosening of fixation device. COMPARISON: ANKLE 3 VIEW RT 09/28/2019 3:25 PM ANKLE 3 VIEW RT 09/26/2019 12:12 PM OR C-ARM PROCEDURE 09/15/2019 6:52 AM LEG LOWER RT 09/15/2019 1:14 AM ANKLE 2 VIEW RT 09/15/2019 6:52 AM ANKLE 3 VIEW LT 01/26/2019 2:28 PM. TECHNIQUE: 2 views. FINDINGS: Interval removal of lateral plate and screws from distal fibula. There is fracture of the distal fibular diaphysis with the distal fragment displaced laterally by approximately 2 mm. Deformity of distal fibula related to healing fractures. Deformity at the medial malleolus related to healing fractures. New hardware associated with proximal, mid, and distal tibia. Tibial fixation screws appear intact. Fracture of posterior malleolus redemonstrated on lateral view. Alignment of distal tibia and talus are improved from prior exam. Clips overlie the medial ankle soft tissues. IMPRESSION: 1. Interval removal of internal fixation hardware at distal fibula with mildly displaced fracture of the distal fibular diaphysis. 2. Healing fractures of distal tibia with improved tibiotalar alignment compared to prior exam. 3. New fixation hardware of tibia. RADIA
[2019-10-20] MEDS: clonazePAM 0.5 MG TABLET PO PRN (21:09)
[2019-10-20] MEDS: PRAZOSIN 1 MG CAPSULE PO SCH (21:10)
[2019-10-20] MEDS: traZODone 50 MG TABLET PO SCH (21:10)
[2019-10-21] MEDS: SODIUM CHLORIDE FLUSH 0.9% 10 ML SYRINGE IVP SCH ×5 (00:57→22:08)
[2019-10-21] MEDS: IBUPROFEN 600 MG TABLET PO SCH ×4 (00:58→17:19)
[2019-10-21] MEDS: SODIUM CHLORIDE 0.9% IV SCH ×6 (01:46→22:08)
[2019-10-21] MEDS: PENICILLIN POTASSIUM IV SCH ×6 (01:46→22:08)
[2019-10-21] MEDS: oxyCODONE 5 MG TABLET PO PRN ×4 (04:44→19:04)
[2019-10-21] MEDS: LEVOTHYROXINE 112 MCG TABLET PO SCH (05:59)
[2019-10-21] MEDS: METOCLOPRAMIDE 10 MG TABLET PO SCH ×4 (06:00→21:15)
[2019-10-21] MEDS: NICOTINE 14 MG PATCH TOP SCH (08:28)
[2019-10-21] MEDS: ESCITALOPRAM 10 MG TABLET PO SCH (08:29)
[2019-10-21] MEDS: POLYETHYLENE GLYCOL 3350 17 GM PACKET PO SCH (08:29)
[2019-10-21] MEDS: OXYBUTYNIN 5MG TABLET PO SCH (08:29)
[2019-10-21] MEDS: ASPIRIN 325 MG TABLET PO SCH ×2 (08:29→17:19)
[2019-10-21] MEDS: FERROUS GLUCONATE 324 MG TABLET PO SCH (08:29)
[2019-10-21] MEDS: PRENATAL VITAMIN TABLET PO SCH (08:29)
[2019-10-21] MEDS: SACCHAROMYCES BOULARDII 250 MG CAPSULE PO SCH ×2 (08:29→17:27)
[2019-10-21] MEDS: BUTALB/ACETAM/CAFF 50/325/40MG TABLET PO PRN (08:30)
[2019-10-21] MEDS: BACITRACIN ZINC OINT 1 PACKET TOP SCH (08:30)
[2019-10-21] MEDS: DULoxetine 30 MG CAPSULE PO SCH (08:30)
[2019-10-21] MEDS: INSULIN ASPART 300 UNIT/3 ML PEN SUBQ SCH ×4 (08:30→21:15)
[2019-10-21] MEDS: THIAMINE 100 MG TABLET PO SCH (08:31)
[2019-10-21] MEDS: CYANOCOBALAMIN 500 MCG TABLET PO SCH (08:31)
[2019-10-21] MEDS: INSULIN GLARGINE 300 UNIT/3 ML PEN SUBQ SCH (08:31)
[2019-10-21] MEDS: ENOXAPARIN 40 MG/0.4 ML SYRINGE SUBQ SCH (08:32)
[2019-10-21] MEDS: SENNA 8.6 MG TABLET PO SCH (12:05)
[2019-10-21] MEDS: DOCUSATE SODIUM 250 MG CAPSULE PO SCH (12:06)
[2019-10-21] MEDS: clonazePAM 0.5 MG TABLET PO PRN (13:49)
--- NOTE | 2019-10-21 14:10 | PROVIDER PROGRESS NOTE ---
Subjective - Prog Note Date Prog Note Date: 10/21/19 Prog Note Time: 14:17 - Subjective Subjective: working with PT. able to be cued but needs constant prompting. no new meds needed. no fever. eating well. Keeps on getting hypoglycemic in spite of my peralta ging lantus to am and stopping her 3 units w meals. Current Medications - Current Medications Current Medications: Active Medications Acetaminophen/Butalbital/Caffeine (Fioricet) 1 tab PO Q4H PRN PRN Reason: SEVERE HEADACHE Last Admin: 10/21/19 08:30 Dose: 1 tab Aspirin (Suri) 325 mg PO BIDWM [facility] Last Admin: 10/21/19 08:29 Dose: 325 mg Bacitracin (Bacitracin) 1 packet TOP DAILY [facility] Last Admin: 10/21/19 08:30 Dose: 1 packet Baclofen (Lioresal) 10 mg PO QID PRN PRN Reason: Spasms Last Admin: 10/20/19 21:09 Dose: 10 mg Clonazepam (Klonopin) 1 mg PO TID PRN PRN Reason: Anxiety Last Admin: 10/21/19 13:49 Dose: 1 mg Cyanocobalamin (Vitamin B-12) 500 mcg PO DAILY [facility] Last Admin: 10/21/19 08:31 Dose: 500 mcg Docusate Sodium (Colace 250mg Capsule) 250 - 500 mg PO DAILY [facility] Last Admin: 10/21/19 12:06 Dose: 250 mg Duloxetine HCl (Cymbalta) 120 mg PO DAILY [facility] Last Admin: 10/21/19 08:30 Dose: 120 mg Enoxaparin Sodium (Lovenox) 40 mg SUBQ DAILY [facility] Last Admin: 10/21/19 08:32 Dose: 40 mg Escitalopram Oxalate (Lexapro) 40 mg PO DAILY [facility] Last Admin: 10/21/19 08:29 Dose: 40 mg Ferrous Gluconate (Fergon) 324 mg PO DAILYWM [facility] Last Admin: 10/21/19 08:29 Dose: 324 mg Penicillin G Potassium 4,000, (000 unit/ Sodium Chloride) 100 mls @ 200 mls/hr IV Q4H [facility] Last Infusion: 10/21/19 10:43 Dose: Infused Ibuprofen (Motrin) 600 mg PO Q6HR [facility] Last Admin: 10/21/19 12:06 Dose: 600 mg Insulin Aspart (Novolog) 3 - 11 unit SUBQ 0800,1200,1700,2100 [facility]; Protocol Last Admin: 10/21/19 12:01 Dose: Not Given Insulin Glargine (Lantus Solostar) 15 unit SUBQ QDBREAKFAST [facility] Last Admin: 10/21/19 08:31 Dose: 15 unit Levothyroxine Sodium (Synthroid) 112 mcg PO QDAC [facility] Last Admin: 10/21/19 05:59 Dose: 112 mcg Metoclopramide HCl (Reglan) 10 mg PO ACHS [facility] Last Admin: 10/21/19 10:14 Dose: 10 mg Nicotine (Nicoderm) 1 patch TOP DAILY [facility] Last Admin: 10/21/19 08:28 Dose: 1 patch Oxybutynin Chloride (Ditropan) 5 mg PO DAILY [facility] Last Admin: 10/21/19 08:29 Dose: 5 mg Oxycodone HCl (Roxicodone) 5 mg PO Q4HR PRN PRN Reason: PAIN Last Admin: 10/21/19 13:49 Dose: 5 mg Polyethylene Glycol (Miralax) 17 gm PO DAILY [facility] Last Admin: 10/21/19 08:29 Dose: 17 gm Prazosin HCl (Minipress) 5 mg PO QPM [facility] Last Admin: 10/20/19 21:10 Dose: 5 mg Multivit/Folic Acid/Iron (Trinatal Rx 1) 1 tab PO DAILYWM [facility] Last Admin: 10/21/19 08:29 Dose: 1 tab Prochlorperazine Edisylate (Compazine Inj) 10 mg IVP Q6HR PRN PRN Reason: Nausea / Vomiting Last Admin: 10/19/19 12:15 Dose: 10 mg Saccharomyces Boulardii (Florastor) 250 mg PO BIDWM [facility] Last Admin: 10/21/19 08:29 Dose: 250 mg Senna (Senokot) 8.6 - 17.2 mg PO DAILY [facility] Last Admin: 10/21/19 12:05 Dose: 8.6 mg Sodium Chloride (Normal Saline Flush 0.9%) 10 ml IVP 0100,0900,1700 [facility] Last Admin: 10/21/19 08:32 Dose: 10 ml Sodium Chloride (Normal Saline Flush 0.9%) 10 ml IVP PRN PRN PRN Reason: NEEDED PER PROVIDER ORDERS Last Admin: 10/20/19 13:27 Dose: 10 ml Sodium Chloride (Normal Saline Flush 0.9%) 20 ml IVP PRN PRN PRN Reason: After Blood Draw Last Admin: 10/15/19 04:53 Dose: 20 ml Thiamine HCl (Vitamin B-1) 100 mg PO DAILY [facility] Last Admin: 10/21/19 08:31 Dose: 100 mg Trazodone HCl (Desyrel) 200 mg PO QPM [facility] Last Admin: 10/20/19 21:10 Dose: 200 mg Insulin Lispro [Humalog] 20 - 25 units SQ DAILY 10/30/15 Baclofen 10 mg PO QID PRN 06/03/16 Escitalopram Oxalate [Lexapro] 40 mg PO DAILY 05/22/18 Simvastatin 20 mg PO QPM 05/22/18 Butalb/Acetam/Caff 50/325/40 [Fioricet] 1 tab PO Q4H PRN 01/22/19 Oxycodone HCl 10 mg PO QID 01/22/19 Prazosin HCl 5 mg PO QPM 01/23/19 Trazodone HCl 200 mg PO QPM 01/23/19 Dextroamphetamine/Amphetamine [Adderall Xr 20 mg Capsule] 20 mg PO DAILY 09/15/19 Dicyclomine HCl 20 mg PO QID PRN 09/15/19 Duloxetine HCl [Cymbalta] 120 mg PO DAILY 09/15/19 Levothyroxine [Synthroid] 112 mcg PO QDAC 09/15/19 Oxybutynin [Ditropan] 5 mg PO DAILY 09/15/19 Pantoprazole Sodium [Protonix] 20 mg PO QDAC 09/15/19 clonazePAM [Clonazepam] 1 mg PO TID PRN 09/15/19 Metoclopramide HCl 10 mg PO ACHS 10/14/19 Spironolactone 100 mg PO DAILY 10/14/19 Objective - Vital Signs/Intake & Output Reviewed Vital Signs: Yes Vital Signs: Vital Signs x48h Temp Pulse Pulse Resp BP Pulse Ox 10/21/19 12:23 36.7 C 10/21/19 11:09 99 99 18 122/86 H 99 10/21/19 08:12 36.6 C 91 91 18 130/78 100 Intake & Output: Intake & Output 10/18/19 10/19/19 10/20/19 10/21/19 23:59 23:59 23:59 23:59 Intake Total 2493.333 1960 1974 118 Output Total 0 1825 Balance 2493.488 090 8793 1180 - Objective General Appearance: positive: No acute distress, Alert Eyes Bilateral: positive: PERRL, EOMI Cardiovascular: positive: Regular rate & rhythm. negative: Gallop/S4, Friction rub Abdomen: positive: Non-tender, No organomegaly, Nml bowel sounds, No distention Skin: positive: Warm, Dry Extremities: positive: Non-tender, No pedal edema, Other (external fixiture in place for right tib and ankle.) Neurologic/Psychiatric: positive: CN's nml (2-12), Motor nml, Disoriented to time, Other (cognitive deficit, flat affect, nonstop moving (crossing and uncrossing of legs)) - Lab Results Fish Bones: 10/19/19 05:00 10/19/19 05:00 Other Labs: Lab Results x24hrs 10/21/19 10/21/19 10/20/19 Range/Units 11:47 08:06 20:15 POC Whole Bld Glucose 81 295 H 213 H (70 - 100) mg/dL 10/20/19 10/20/19 10/20/19 Range/Units 18:11 16:54 16:38 POC Whole Bld Glucose 85 102 H 53 L* (70 - 100) mg/dL 10/20/19 Range/Units 14:14 POC Whole Bld Glucose 118 H (70 - 100) mg/dL ABX Reporting Has patient been on IV antibiotics over the past 48 hours?: Yes Assessment/Plan - Problem List (1) Type 1 diabetes mellitus with complication, uncontrolled Impression: Presented as DKA that is now resolved. 10/17 am, she became hypoglycemic. Lantus was adjusted and reduced from 25 units to 15 units. She continues to be on sliding scale NovoLog 2 to 10 units before meals. I initially thought that I would have to give her D5, but glucose rebounded to 150, 253, 226, 233 by late morning of 10/17. So no D5 Continue 3 units of NovoLog to each meal, continue Lantus 15 units at night. 10/18: 81, 137, 224 10/19: she was hypoglycemic to the 30's this am and received juice and rebounded to 150. Lantus switched to be given in the morning as opposed to evening. 10/20: She did not have lantus last night and switched to this morning. Glucose was 300's this morning. Hopefully as day goes on she will come down. 242, 331, 102, 58, 113, 53, 102, 93, 102, 213. 3 units that were given before each meal have been stopped. 10/21: 295, 81 Qualifiers: Diabetes mellitus type: type 1 (2) Osteomyelitis of ankle Impression: No change for 4 days. She was at [place] 09/29-10/06. Home until admit here. She received PCN until admit here and for 3 days we did not know she had to be on PCN. So she received ~15 days, off 3 days, resumed last night. She was to continue abx until 10/20 so new date for stopping will be 10/23/19. has a PICC line in place. orders will be continued for mepilex ag on right thigh and keep clean and dry, do not get wet wash graft daily with warm soapy water on washcloth an then dry to then apply xeroform with bacitracin over the mesh pattern, cover with 4x4 then kerlix to secure in place. on 10/20 Physical therapy worked with the patient. Trying to prompt her to make sure she stands only on her good leg and is nonweightbearing on the leg with the fixtures in it. PT reports that the screws are loose, and the fixation device is loose. I obtained plain films and no new process identified. Discussed the case with Fidel Vila MD, travel service consultant for [facility] at [place]. He looked at films and I re-examined her with him on phone. We both feel the rods are not unstable. She can be seen in follow up. He will message the clinic so they know. I will send a copy of this note to them. 10/21 working with PT. sat up in chair and hopping off her good foot. Plan: to complete abx on 10/23 She is medically stable since 10/17. Try to place since can't be at home. We are awaiting response from SNFs Fax note to [facility] @ [phone] Qualifiers: Osteomyelitis type: unspecified type (3) Campylobacter diarrhea Impression: resolved. Last BM 10/19 and no diarrhea. (4) Noncompliance with safety precautions Impression: as a result needs to be placed until these external rods are removed. Part of the noncompliance is a cognitive deficit. Present since admission. Since this is the first time I've met her, don't know her baseline. (5) Anemia Impression: check lab s in am Qualifiers: Anemia type: unspecified type Qualified Code(s): D64.9 - Anemia, unspecified
[2019-10-21 17:23] LABS: ABSOLUTE RETICS # AUTO 0.123 10^6/uL (0.020-0.110); RED BLOOD COUNT 3.63 10^6/uL (4.20-5.40)
[2019-10-21 17:40] LABS: % IRON SATURATION 11 % (20-50); IRON 27 ug/dL (28-170); TOTAL IRON BINDING CAPACITY 255 ug/dL (250-450); TRANSFERRIN 182 mg/dL (192-382)
[2019-10-21 17:59] LABS: FERRITIN 32.6 ng/mL (11.0-306.8)
[2019-10-21] MEDS: PRAZOSIN 1 MG CAPSULE PO SCH (21:13)
[2019-10-21] MEDS: traZODone 50 MG TABLET PO SCH (21:15)
[2019-10-21] MEDS: SODIUM CHLORIDE FLUSH 0.9% 10 ML SYRINGE IVP PRN (22:09)
[2019-10-22] MEDS: IBUPROFEN 600 MG TABLET PO SCH ×4 (02:07→18:11)
[2019-10-22] MEDS: PENICILLIN POTASSIUM IV SCH ×6 (02:08→22:00)
[2019-10-22] MEDS: SODIUM CHLORIDE FLUSH 0.9% 10 ML SYRINGE IVP SCH ×3 (02:08→18:11)
[2019-10-22] MEDS: SODIUM CHLORIDE 0.9% IV SCH ×6 (02:08→22:00)
[2019-10-22] MEDS: METOCLOPRAMIDE 10 MG TABLET PO SCH ×4 (06:04→20:33)
[2019-10-22] MEDS: SODIUM CHLORIDE FLUSH 0.9% 10 ML SYRINGE IVP PRN ×3 (06:07→22:00)
[2019-10-22] MEDS: LEVOTHYROXINE 112 MCG TABLET PO SCH (06:12)
[2019-10-22] MEDS: oxyCODONE 5 MG TABLET PO PRN ×2 (06:36→16:05)
[2019-10-22] MEDS: ESCITALOPRAM 10 MG TABLET PO SCH (08:08)
[2019-10-22] MEDS: BACLOFEN 10 MG TABLET PO PRN (08:08)
[2019-10-22] MEDS: DULoxetine 30 MG CAPSULE PO SCH (08:09)
[2019-10-22] MEDS: ENOXAPARIN 40 MG/0.4 ML SYRINGE SUBQ SCH (08:09)
[2019-10-22] MEDS: OXYBUTYNIN 5MG TABLET PO SCH (08:09)
[2019-10-22] MEDS: SACCHAROMYCES BOULARDII 250 MG CAPSULE PO SCH ×2 (08:09→18:11)
[2019-10-22] MEDS: CYANOCOBALAMIN 500 MCG TABLET PO SCH (08:09)
[2019-10-22] MEDS: FERROUS GLUCONATE 324 MG TABLET PO SCH (08:10)
[2019-10-22] MEDS: SENNA 8.6 MG TABLET PO SCH (08:10)
[2019-10-22] MEDS: THIAMINE 100 MG TABLET PO SCH (08:10)
[2019-10-22] MEDS: POLYETHYLENE GLYCOL 3350 17 GM PACKET PO SCH (08:10)
[2019-10-22] MEDS: DOCUSATE SODIUM 250 MG CAPSULE PO SCH (08:10)
[2019-10-22] MEDS: PRENATAL VITAMIN TABLET PO SCH (08:10)
[2019-10-22] MEDS: NICOTINE 14 MG PATCH TOP SCH (08:11)
[2019-10-22] MEDS: ASPIRIN 325 MG TABLET PO SCH ×2 (08:15→18:11)
[2019-10-22] MEDS: BACITRACIN ZINC OINT 1 PACKET TOP SCH (08:16)
[2019-10-22] MEDS: INSULIN ASPART 300 UNIT/3 ML PEN SUBQ SCH ×4 (08:18→20:34)
[2019-10-22] MEDS: INSULIN GLARGINE 300 UNIT/3 ML PEN SUBQ SCH (08:20)
[2019-10-22] MEDS: BUTALB/ACETAM/CAFF 50/325/40MG TABLET PO PRN (10:34)
--- NOTE | 2019-10-22 11:28 | PROVIDER PROGRESS NOTE ---
Subjective - Prog Note Date Prog Note Date: 10/22/19 Prog Note Time: 11:33 - Subjective Subjective: Most of the time she is in bed because she is nonweightbearing. Physical therapy did get her out of bed and sat her in her chair yesterday. However, her behavior is still problematic. While she is cooperative, does not abuse anybody, she is impulsive with the use of her right leg. When she wants to make herself more comfortable she will use both hands, grab the bars of her right leg fixator, and grab the bars to move her leg. In spite of numerous attempts for myself, nursing and the aid to prompt her not to do that, she just forgets and does it again. Current Medications - Current Medications Current Medications: Active Medications Acetaminophen/Butalbital/Caffeine (Fioricet) 1 tab PO Q4H PRN PRN Reason: SEVERE HEADACHE Last Admin: 10/22/19 10:34 Dose: 1 tab Aspirin (Suri) 325 mg PO BIDWM [facility] Last Admin: 10/22/19 08:15 Dose: 325 mg Bacitracin (Bacitracin) 1 packet TOP DAILY [facility] Last Admin: 10/22/19 08:16 Dose: 1 packet Baclofen (Lioresal) 10 mg PO QID PRN PRN Reason: Spasms Last Admin: 10/22/19 08:08 Dose: 10 mg Clonazepam (Klonopin) 1 mg PO TID PRN PRN Reason: Anxiety Last Admin: 10/21/19 13:49 Dose: 1 mg Cyanocobalamin (Vitamin B-12) 500 mcg PO DAILY [facility] Last Admin: 10/22/19 08:09 Dose: 500 mcg Docusate Sodium (Colace 250mg Capsule) 250 - 500 mg PO DAILY [facility] Last Admin: 10/22/19 08:10 Dose: 250 mg Duloxetine HCl (Cymbalta) 120 mg PO DAILY [facility] Last Admin: 10/22/19 08:09 Dose: 120 mg Enoxaparin Sodium (Lovenox) 40 mg SUBQ DAILY [facility] Last Admin: 10/22/19 08:09 Dose: 40 mg Escitalopram Oxalate (Lexapro) 40 mg PO DAILY [facility] Last Admin: 10/22/19 08:08 Dose: 40 mg Ferrous Gluconate (Fergon) 324 mg PO DAILYWM [facility] Last Admin: 10/22/19 08:10 Dose: 324 mg Penicillin G Potassium 4,000, (000 unit/ Sodium Chloride) 100 mls @ 200 mls/hr IV Q4H [facility] Last Infusion: 10/22/19 11:29 Dose: Infused Ibuprofen (Motrin) 600 mg PO Q6HR [facility] Last Admin: 10/22/19 08:07 Dose: 600 mg Insulin Aspart (Novolog) 3 - 11 unit SUBQ 0800,1200,1700,2100 [facility]; Protocol Last Admin: 10/22/19 08:18 Dose: 5 unit Insulin Glargine (Lantus Solostar) 15 unit SUBQ QDBREAKFAST [facility] Last Admin: 10/22/19 08:20 Dose: 15 unit Levothyroxine Sodium (Synthroid) 112 mcg PO QDAC [facility] Last Admin: 10/22/19 06:12 Dose: 112 mcg Metoclopramide HCl (Reglan) 10 mg PO ACHS [facility] Last Admin: 10/22/19 10:34 Dose: 10 mg Nicotine (Nicoderm) 1 patch TOP DAILY [facility] Oxybutynin Chloride (Ditropan) 5 mg PO DAILY [facility] Last Admin: 10/22/19 08:09 Dose: 5 mg Oxycodone HCl (Roxicodone) 5 mg PO Q4HR PRN PRN Reason: PAIN Last Admin: 10/22/19 06:36 Dose: 5 mg Polyethylene Glycol (Miralax) 17 gm PO DAILY [facility] Last Admin: 10/22/19 08:10 Dose: 17 gm Prazosin HCl (Minipress) 5 mg PO QPM [facility] Last Admin: 10/21/19 21:13 Dose: 5 mg Multivit/Folic Acid/Iron (Trinatal Rx 1) 1 tab PO DAILYWM [facility] Last Admin: 10/22/19 08:10 Dose: 1 tab Prochlorperazine Edisylate (Compazine Inj) 10 mg IVP Q6HR PRN PRN Reason: Nausea / Vomiting Last Admin: 10/19/19 12:15 Dose: 10 mg Saccharomyces Boulardii (Florastor) 250 mg PO BIDWM [facility] Last Admin: 10/22/19 08:09 Dose: 250 mg Senna (Senokot) 8.6 - 17.2 mg PO DAILY [facility] Last Admin: 10/22/19 08:10 Dose: 8.6 mg Sodium Chloride (Normal Saline Flush 0.9%) 10 ml IVP 0100,0900,1700 [facility] Last Admin: 10/22/19 08:13 Dose: 10 ml Sodium Chloride (Normal Saline Flush 0.9%) 10 ml IVP PRN PRN PRN Reason: NEEDED PER PROVIDER ORDERS Last Admin: 10/22/19 06:59 Dose: 10 ml Sodium Chloride (Normal Saline Flush 0.9%) 20 ml IVP PRN PRN PRN Reason: After Blood Draw Last Admin: 10/15/19 04:53 Dose: 20 ml Thiamine HCl (Vitamin B-1) 100 mg PO DAILY [facility] Last Admin: 10/22/19 08:10 Dose: 100 mg Trazodone HCl (Desyrel) 200 mg PO QPM [facility] Last Admin: 10/21/19 21:15 Dose: 200 mg Insulin Lispro [Humalog] 20 - 25 units SQ DAILY 10/30/15 Baclofen 10 mg PO QID PRN 06/03/16 Escitalopram Oxalate [Lexapro] 40 mg PO DAILY 05/22/18 Simvastatin 20 mg PO QPM 05/22/18 Butalb/Acetam/Caff 50/325/40 [Fioricet] 1 tab PO Q4H PRN 01/22/19 Oxycodone HCl 10 mg PO QID 01/22/19 Prazosin HCl 5 mg PO QPM 01/23/19 Trazodone HCl 200 mg PO QPM 01/23/19 Dextroamphetamine/Amphetamine [Adderall Xr 20 mg Capsule] 20 mg PO DAILY 09/15/19 Dicyclomine HCl 20 mg PO QID PRN 09/15/19 Duloxetine HCl [Cymbalta] 120 mg PO DAILY 09/15/19 Levothyroxine [Synthroid] 112 mcg PO QDAC 09/15/19 Oxybutynin [Ditropan] 5 mg PO DAILY 09/15/19 Pantoprazole Sodium [Protonix] 20 mg PO QDAC 09/15/19 clonazePAM [Clonazepam] 1 mg PO TID PRN 09/15/19 Metoclopramide HCl 10 mg PO ACHS 10/14/19 Spironolactone 100 mg PO DAILY 10/14/19 Objective - Vital Signs/Intake & Output Reviewed Vital Signs: Yes Vital Signs: Vital Signs x48h Temp Pulse Resp BP Pulse Ox 10/22/19 07:55 36.3 C L 91 11 L 131/77 H 97 Intake & Output: Intake & Output 10/19/19 10/20/19 10/21/19 10/22/19 23:59 23:59 23:59 23:59 Intake Total 1959 Output Total 182 Balance 135 1974 - Objective General Appearance: positive: No acute distress, Alert, Other (Well-nourished well-developed white female who seems to have a vague affect, cognitive deficit,) ENT: positive: Pharynx nml, No signs of dehydration Neck: positive: No JVD Respiratory: positive: Chest non-tender. negative: Wheezes, Rales, Rhonchi Cardiovascular: positive: Regular rate & rhythm. negative: Gallop/S4, Friction rub Abdomen: positive: Non-tender, No organomegaly, Nml bowel sounds, No distention Skin: positive: Warm, Dry Extremities: positive: Full ROM, No pedal edema Neurologic/Psychiatric: positive: CN's nml (2-12), Motor nml, Disoriented to place, Disoriented to time. negative: Mood/affect nml - Lab Results Fish Bones: 10/19/19 05:00 10/19/19 05:00 Other Labs: Lab Results x24hrs 10/22/19 10/21/19 10/21/19 Range/Units 07:42 17: 17:19 RBC (4.20-5.40) 10^6/uL Reticulocyte % (Auto) (0.5-2.3) % Absolute Retic (0.020-0.110) 10^6/uL POC Whole Bld Glucose 190 H (70 - 100) mg/dL Iron (28-170) ug/dL TIBC (250-450) ug/dL % Saturation (20-50) % Transferrin (192-382) mg/dL Ferritin 32.6 (11.0-306.8) ng/mL Lactate Dehydrogenase 201 (91-225) IU/L Vitamin B12 687 (180-914) pg/mL 10/21/19 10/21/19 10/21/19 Range/Units 17:19 17:19 16:41 RBC 3.63 L (4.20-5.40) 10^6/uL Reticulocyte % (Auto) 3.38 H (0.5-2.3) % Absolute Retic 0.123 H (0.020-0.110) 10^6/uL POC Whole Bld Glucose 180 H (70 - 100) mg/dL Iron 27 L (28-170) ug/dL TIBC 255 (250-450) ug/dL % Saturation 11 L (20-50) % Transferrin 182 L (192-382) mg/dL Ferritin (11.0-306.8) ng/mL Lactate Dehydrogenase (91-225) IU/L Vitamin B12 (180-914) pg/mL 10/21/19 Range/Units 11:47 RBC (4.20-5.40) 10^6/uL Reticulocyte % (Auto) (0.5-2.3) % Absolute Retic (0.020-0.110) 10^6/uL POC Whole Bld Glucose 81 (70 - 100) mg/dL Iron (28-170) ug/dL TIBC (250-450) ug/dL % Saturation (20-50) % Transferrin (192-382) mg/dL Ferritin (11.0-306.8) ng/mL Lactate Dehydrogenase (91-225) IU/L Vitamin B12 (180-914) pg/mL ABX Reporting Has patient been on IV antibiotics over the past 48 hours?: Yes Assessment/Plan - Problem List (1) Type 1 diabetes mellitus with complication, uncontrolled Impression: Presented as DKA that is now resolved. 10/17 am, she became hypoglycemic. Lantus was adjusted and reduced from 25 units to 15 units. She continues to be on sliding scale NovoLog 2 to 10 units before meals. I initially thought that I would have to give her D5, but glucose rebounded to 150, 253, 226, 233 by late morning of 10/17. So no D5 Continue 3 units of NovoLog to each meal, continue Lantus 15 units at night. 10/18: 81, 137, 224 10/19: she was hypoglycemic to the 30's this am and received juice and rebounded to 150. Lantus switched to be given in the morning as opposed to evening. 10/20: She did not have lantus last night and switched to this morning. Glucose was 300's this morning. Hopefully as day goes on she will come down. 242, 331, 102, 58, 113, 53, 102, 93, 102, 213. 3 units that were given before each meal have been stopped. 10/21: 295, 81 Qualifiers: Diabetes mellitus type: type 1 (2) Osteomyelitis of ankle Impression: No change for 4 days. She was at [facility] 09/29-10/06. Home until admit here. She received PCN until admit here and for 3 days we did not know she had to be on PCN. So she received ~15 days, off 3 days, resumed last night. She was to continue abx until 10/20 so new date for stopping will be 10/23/19. has a PICC line in place. orders will be continued for mepilex ag on right thigh and keep clean and dry, do not get wet wash graft daily with warm soapy water on washcloth an then dry to then apply xeroform with bacitracin over the mesh pattern, cover with 4x4 then kerlix to secure in place. on 10/20 Physical therapy worked with the patient. Trying to prompt her to make sure she stands only on her good leg and is nonweightbearing on the leg with the fixtures in it. PT reports that the screws are loose, and the fixation device is loose. I obtained plain films and no new process identified. Discussed the case with Fidel Vila MD, floor tiling professional for [facility] at [place]. He looked at films and I re-examined her with him on phone. We both feel the rods are not unstable. She can be seen in follow up. He will message the clinic so they know. I will send a copy of this note to them. 10/21 working with PT. sat up in chair and hopping off her good foot. 10/22 She is yanking on the rods and bars. She does this to move her leg. She is immediately being prompted and cued by nursing staff and aide and myself to not do that. She gets angry with this and states "I need to move my leg". We teach her how to move her leg without yanking on the bars and within seconds of this she does it again. Plan: to complete abx on 10/23 which is tomorrow She is medically stable since 10/17. Try to place since can't be at home. We are awaiting response from SNFs we will place pillows around bars and then duct tape the pillows in an effort to protect them from patient I spoke to infectious disease on-call today. I was inquiring to find out what oral antibiotic I would be using tomorrow when she stopped IV antibiotics. Unfortunately they do not recommend stopping IV antibiotics. They must see her in clinic before they can transition her to oral. Her October 18 appointment was canceled. She now has a October 26 appointment. She has a 9 AM appointment with infectious disease and a 10 am appointment with orthopedics. This is now two specialists who told me that they feel very reluctant to change this patient's therapy without personally seeing her. I can understand their dilemma. I am going to have a mental health evaluation done on this patient. There is some type of cognitive deficit with impulsivity, anger issues. While she is not verbally or physically abusive, there is a lack of understanding on her part. If I can get a mental health evaluation, may be I can get her transferred to the inpatient psych unit at [facility] and then seen by Ortho and infectious disease that way. Qualifiers: Osteomyelitis type: unspecified type (3) Campylobacter diarrhea Impression: resolved. Last BM 10/19 and no diarrhea. (4) Noncompliance with safety precautions Impression: as a result needs to be placed until these external rods are removed. Part of the noncompliance is a cognitive deficit. Present since admission. Since this is the first time I've met her, don't know her baseline. (5) Anemia Impression: check lab s in am Qualifiers: Anemia type: unspecified type Qualified Code(s): D64.9 - Anemia, unspecified (5) Anemia Impression: low grade hemolysis and iron deficiency Laboratory Tests 10/21/19 10/21/19 10/21/19 17:19 17:19 17: RBC 3.63 L Reticulocyte % (Auto) 3.38 H Absolute Retic 0.123 H Iron 27 L TIBC 255 % Saturation 11 L Transferrin 182 L Ferritin 32.6 Lactate Dehydrogenase 10/21/19 17:19 RBC Reticulocyte % (Auto) Absolute Retic Iron TIBC % Saturation Transferrin Ferritin Lactate Dehydrogenase 201 Qualifiers: Anemia type: acquired or hereditary hemolytic anemia Hemolytic anemia type: acquired, unspecified Qualified Code(s): D59.9 - Acquired hemolytic anemia, unspecified; D59 - Acquired hemolytic anemia (6) Tobacco use Impression: Today is day #8 for her nicotine patch 14 mg. We will decrease to 7 mg.
[2019-10-22] MEDS: NICOTINE 7 MG PATCH TOP SCH (12:11)
[2019-10-22] MEDS ORDERED: INSULIN ASPART 300 UNIT/3 ML PEN SUBQ ONE (17:41)
[2019-10-22] MEDS: traZODone 50 MG TABLET PO SCH (20:33)
[2019-10-22] MEDS: PRAZOSIN 1 MG CAPSULE PO SCH (20:34)
[2019-10-23] MEDS: IBUPROFEN 600 MG TABLET PO SCH ×4 (00:12→18:06)
[2019-10-23] MEDS ORDERED: SODIUM CHLORIDE FLUSH 0.9% 10 ML SYRINGE ONE (01:49)
[2019-10-23] MEDS: SODIUM CHLORIDE FLUSH 0.9% 10 ML SYRINGE IVP SCH ×3 (01:53→16:00)
[2019-10-23] MEDS: PENICILLIN POTASSIUM IV SCH ×6 (01:53→22:04)
[2019-10-23] MEDS: SODIUM CHLORIDE 0.9% IV SCH ×6 (01:53→22:04)
[2019-10-23] MEDS: METOCLOPRAMIDE 10 MG TABLET PO SCH ×4 (06:24→22:02)
[2019-10-23] MEDS: LEVOTHYROXINE 112 MCG TABLET PO SCH (06:25)
--- NOTE | 2019-10-23 07:26 | PROVIDER PROGRESS NOTE ---
Subjective - Prog Note Date Prog Note Date: 10/23/19 Prog Note Time: 10:48 - Subjective Subjective: she is up in bed, contantly moving the right leg. Leg is now wrapped in blankets with jacob wrap to protect the cage. She does grab and move that right leg but grabs blankets and not rods now. she states pain is in right leg but none elsewhere. Knows she's in hospital but not year or what town. Current Medications - Current Medications Current Medications: Active Medications Acetaminophen/Butalbital/Caffeine (Fioricet) 1 tab PO Q4H PRN PRN Reason: SEVERE HEADACHE Last Admin: 10/22/19 10:34 Dose: 1 tab Aspirin (Suri) 325 mg PO BIDWM [facility] Last Admin: 10/23/19 09:16 Dose: 325 mg Bacitracin (Bacitracin) 1 packet TOP DAILY [facility] Last Admin: 10/23/19 09:25 Dose: 1 packet Baclofen (Lioresal) 10 mg PO QID PRN PRN Reason: Spasms Last Admin: 10/22/19 08:08 Dose: 10 mg Clonazepam (Klonopin) 1 mg PO TID PRN PRN Reason: Anxiety Last Admin: 10/23/19 09:16 Dose: 1 mg Cyanocobalamin (Vitamin B-12) 500 mcg PO DAILY [facility] Last Admin: 10/23/19 09:15 Dose: 500 mcg Docusate Sodium (Colace 250mg Capsule) 250 - 500 mg PO DAILY [facility] Last Admin: 10/23/19 09:15 Dose: 500 mg Duloxetine HCl (Cymbalta) 120 mg PO DAILY [facility] Last Admin: 10/23/19 09:23 Dose: 120 mg Enoxaparin Sodium (Lovenox) 40 mg SUBQ DAILY [facility] Last Admin: 10/23/19 09:14 Dose: 40 mg Escitalopram Oxalate (Lexapro) 40 mg PO DAILY [facility] Last Admin: 10/23/19 09:16 Dose: 40 mg Ferrous Gluconate (Fergon) 324 mg PO DAILYWM [facility] Last Admin: 10/23/19 09:14 Dose: 324 mg Penicillin G Potassium 4,000, (000 unit/ Sodium Chloride) 100 mls @ 200 mls/hr IV Q4H [facility] Last Admin: 10/23/19 10:25 Dose: 200 mls/hr Ibuprofen (Motrin) 600 mg PO Q6HR [facility] Last Admin: 10/23/19 06:25 Dose: 600 mg Insulin Aspart (Novolog) 3 - 11 unit SUBQ 0800,1200,1700,2100 [facility]; Protocol Last Admin: 10/23/19 09:26 Dose: Not Given Insulin Glargine (Lantus Solostar) 15 unit SUBQ QDBREAKFAST [facility] Last Admin: 10/23/19 09:24 Dose: 15 unit Levothyroxine Sodium (Synthroid) 112 mcg PO QDAC [facility] Last Admin: 10/23/19 06:25 Dose: 112 mcg Metoclopramide HCl (Reglan) 10 mg PO ACHS [facility] Last Admin: 10/23/19 06:24 Dose: 10 mg Nicotine (Nicoderm) 1 patch TOP DAILY [facility] Last Admin: 10/23/19 09:17 Dose: 1 patch Oxybutynin Chloride (Ditropan) 5 mg PO DAILY [facility] Last Admin: 10/23/19 09:16 Dose: 5 mg Oxycodone HCl (Roxicodone) 5 mg PO Q4HR PRN PRN Reason: PAIN Last Admin: 10/23/19 10:25 Dose: 5 mg Polyethylene Glycol (Miralax) 17 gm PO DAILY [facility] Last Admin: 10/23/19 09:17 Dose: 17 gm Prazosin HCl (Minipress) 5 mg PO QPM [facility] Last Admin: 10/22/19 20:34 Dose: 5 mg Multivit/Folic Acid/Iron (Trinatal Rx 1) 1 tab PO DAILYWM [facility] Last Admin: 10/23/19 09:15 Dose: 1 tab Prochlorperazine Edisylate (Compazine Inj) 10 mg IVP Q6HR PRN PRN Reason: Nausea / Vomiting Last Admin: 10/19/19 12:15 Dose: 10 mg Saccharomyces Boulardii (Florastor) 250 mg PO BIDWM [facility] Last Admin: 10/23/19 09:16 Dose: 250 mg Senna (Senokot) 8.6 - 17.2 mg PO DAILY [facility] Last Admin: 10/23/19 09:15 Dose: 17.2 mg Sodium Chloride (Normal Saline Flush 0.9%) 10 ml IVP 0100,0900,1700 [facility] Last Admin: 10/23/19 09:16 Dose: 20 ml Sodium Chloride (Normal Saline Flush 0.9%) 10 ml IVP PRN PRN PRN Reason: NEEDED PER PROVIDER ORDERS Last Admin: 10/22/19 22:00 Dose: 10 ml Sodium Chloride (Normal Saline Flush 0.9%) 20 ml IVP PRN PRN PRN Reason: After Blood Draw Last Admin: 10/15/19 04:53 Dose: 20 ml Thiamine HCl (Vitamin B-1) 100 mg PO DAILY [facility] Last Admin: 10/23/19 09:16 Dose: 100 mg Trazodone HCl (Desyrel) 200 mg PO QPM [facility] Last Admin: 10/22/19 20:33 Dose: 200 mg Insulin Lispro [Humalog] 20 - 25 units SQ DAILY 10/30/15 Baclofen 10 mg PO QID PRN 06/03/16 Escitalopram Oxalate [Lexapro] 40 mg PO DAILY 05/22/18 Simvastatin 20 mg PO QPM 05/22/18 Butalb/Acetam/Caff 50/325/40 [Fioricet] 1 tab PO Q4H PRN 01/22/19 Oxycodone HCl 10 mg PO QID 01/22/19 Prazosin HCl 5 mg PO QPM 01/23/19 Trazodone HCl 200 mg PO QPM 01/23/19 Dextroamphetamine/Amphetamine [Adderall Xr 20 mg Capsule] 20 mg PO DAILY 09/15/19 Dicyclomine HCl 20 mg PO QID PRN 09/15/19 Duloxetine HCl [Cymbalta] 120 mg PO DAILY 09/15/19 Levothyroxine [Synthroid] 112 mcg PO QDAC 09/15/19 Oxybutynin [Ditropan] 5 mg PO DAILY 09/15/19 Pantoprazole Sodium [Protonix] 20 mg PO QDAC 09/15/19 clonazePAM [Clonazepam] 1 mg PO TID PRN 09/15/19 Metoclopramide HCl 10 mg PO ACHS 10/14/19 Spironolactone 100 mg PO DAILY 10/14/19 Objective - Vital Signs/Intake & Output Reviewed Vital Signs: Yes Vital Signs: Vital Signs x48h Temp Pulse Resp BP Pulse Ox 10/23/19 00:58 36.7 C 98 18 131/61 H 98 Intake & Output: Intake & Output 10/20/19 10/21/19 10/22/19 10/23/19 23:59 23:59 23:59 23:59 Intake Total 1974 1959 2400 575 Balance 1974 1959 2400 575 - Objective General Appearance: positive: No acute distress, Mild distress (agitation man ifested as constant, constant cues needed. constant moving of legs. can't sit still), Other (confused white female who looks stated age, fatigued appearing) Eyes Bilateral: positive: PERRL ENT: positive: Pharynx nml Neck: positive: No JVD. negative: Stiff neck Respiratory: positive: Chest non-tender. negative: Wheezes, Rales, Rhonchi Cardiovascular: positive: Regular rate & rhythm. negative: Gallop/S4, Friction rub Abdomen: positive: Non-tender, No organomegaly, Nml bowel sounds, No distention Skin: positive: Warm, Dry, Pallor, Other (skin graft of right thigh, healing.) Extremities: positive: Non-tender, Full ROM (except for that right ankle that has fixture), No pedal edema Neurologic/Psychiatric: positive: CN's nml (2-12), Motor nml, Disoriented to place, Disoriented to time. negative: Mood/affect nml - Lab Results Fish Bones: 10/19/19 05:00 10/22/19 17:18 Other Labs: Lab Results x24hrs 10/22/19 10/22/19 10/22/19 Range/Units 17:18 11:43 07:42 Glucose 616 H* (70-100) mg/dL POC Whole Bld Glucose 343 H 190 H (70 - 100) mg/dL ABX Reporting Has patient been on IV antibiotics over the past 48 hours?: Yes Assessment/Plan - Problem List (1) Type 1 diabetes mellitus with complication, uncontrolled Impression: Presented as DKA with metabolic encephalopathy that is now resolved. She had ripped out her PICC line, blood all over her and room at home, w PICC line wrapped around her ankle. Confused, disoriented. 10/17 am, she became hypoglycemic. Lantus was adjusted and reduced from 25 units to 15 units. She continues to be on sliding scale NovoLog 2 to 10 units before meals. I initially thought that I would have to give her D5, but glucose rebounded to 150, 253, 226, 233 by late morning of 10/17. So no D5 Continue 3 units of NovoLog to each meal, continue Lantus 15 units at night. 10/18: 81, 137, 224 10/19: she was hypoglycemic to the 30's this am and received juice and rebounded to 150. Lantus switched to be given in the morning as opposed to evening. 10/20: She did not have lantus last night and switched to this morning. Glucose was 300's this morning. Hopefully as day goes on she will come down. 242, 331, 102, 58, 113, 53, 102, 93, 102, 213. 3 units that were given before each meal have been stopped. 10/21: 295, 81 10/22:190, 343, 600 (required 30 units SQ to bring her down), 106 10/23: 277, 458 (required 20 units SQ to bring her down). I am increasing lantus to 20 units tomorrow am and giving a one time dose of 5 units tonight. Qualifiers: Diabetes mellitus type: type 1 (2) Osteomyelitis of ankle Impression: She was at [facility] 09/29-10/06. Home until admit here. She received PCN until admit here and for 3 days we did not know she had to be on PCN. So she received ~15 days, off 3 days, resumed last night. She was to continue abx until 10/20 so new date for stopping will be 10/23/19. has a PICC line in place. orders will be continued for mepilex ag on right thigh and keep clean and dry, do not get wet wash graft daily with warm soapy water on washcloth an then dry to then apply xeroform with bacitracin over the mesh pattern, cover with 4x4 then kerlix to secure in place. 10/20 Physical therapy worked with the patient. Trying to prompt her to make sure she stands only on her good leg and is nonweightbearing on the leg with the fixtures in it. PT reports that the screws are loose, and the fixation device is loose. I obtained plain films and no new process identified. Discussed the case with Fidel Vila MD, contract modeler for [facility] at [facility]. He looked at films and I re-examined her with him on phone. We both feel the rods are not unstable. She can be seen in follow up. He will message the clinic so they know. I will send a copy of this note to them. Clinic [phone]. . 10/21 working with PT. sat up in chair and hopping off her good foot. 10/22 She is yanking on the rods and bars. She does this to move her leg. She is immediately being prompted and cued by nursing staff and aide and myself to not do that. She gets angry with this and states "I need to move my leg". We teach her how to move her leg without yanking on the bars and within seconds of this she does it again. I spoke to infectious disease on-call today. I was inquiring to find out what oral antibiotic I would be using tomorrow when she stopped IV antibiotics. Unfortunately they do not recommend stopping IV antibiotics. They must see her in clinic before they can transition her to oral. Her October 18 appointment was canceled. She now has a October 26 appointment. She has a 9 AM appointment with infectious disease and a 10 am appointment with orthopedics. This is now two specialists who told me that they feel very reluctant to change this patient's therapy without personally seeing her. I can understand their dilemma. 10/23: I am going to have a mental health evaluation done on this patient. There is some type of cognitive deficit with impulsivity, anger issues. While she is not verbally or physically abusive, there is a lack of understanding on her part. If I can get a mental health evaluation, may be I can get her transferred to the inpatient psych unit at [facility] or [facility] and then seen by Ortho and infectious disease that way. Plan: to complete abx on 10/23 which is today but I can't stop abx until seen by ID at . requests she stay on IV until seen by them She is medically stable since 10/17. Trying to place since can't be at home. We are awaiting response from SNFs and I am called psych 8:30am-4:30pm M-F, , and SS calling neurorehab. we placed pillows around bars and then duct taped the pillows in an effort to protect them from patient. So far it's working but she is not happy Qualifiers: Osteomyelitis type: unspecified type (3) Campylobacter diarrhea Impression: resolved. Last BM 10/19 and no diarrhea. (4) Noncompliance with safety precautions Impression: as a result needs to be placed until these external rods are removed. Part of the noncompliance is a cognitive deficit. Present since admission. Since this is the first time I've met her, don't know her baseline. (5) Anemia Impression: low grade hemolysis and iron deficiency Laboratory Tests 10/21/19 10/21/19 10/21/19 17:19 17:19 17: RBC 3.63 L Reticulocyte % (Auto) 3.38 H Absolute Retic 0.123 H Iron 27 L TIBC 255 % Saturation 11 L Transferrin 182 L Ferritin 32.6 Lactate Dehydrogenase 10/21/19 17:19 RBC Reticulocyte % (Auto) Absolute Retic Iron TIBC % Saturation Transferrin Ferritin Lactate Dehydrogenase 201 Qualifiers: Anemia type: acquired or hereditary hemolytic anemia Hemolytic anemia type: acquired, unspecified Qualified Code(s): D59.9 - Acquired hemolytic anemia, unspecified; D59 - Acquired hemolytic anemia (6) Tobacco use Impression: 10/22 was day #8 for her nicotine patch 14 mg. Decreased to 7 mg, today Day #2. Would stop after 7 days.
[2019-10-23] MEDS ORDERED: INSULIN ASPART 300 UNIT/3 ML PEN SUBQ ONE (09:02)
[2019-10-23] MEDS: FERROUS GLUCONATE 324 MG TABLET PO SCH (09:14)
[2019-10-23] MEDS: ENOXAPARIN 40 MG/0.4 ML SYRINGE SUBQ SCH (09:14)
[2019-10-23] MEDS: SENNA 8.6 MG TABLET PO SCH (09:15)
[2019-10-23] MEDS: PRENATAL VITAMIN TABLET PO SCH (09:15)
[2019-10-23] MEDS: CYANOCOBALAMIN 500 MCG TABLET PO SCH (09:15)
[2019-10-23] MEDS: DOCUSATE SODIUM 250 MG CAPSULE PO SCH (09:15)
[2019-10-23] MEDS: SACCHAROMYCES BOULARDII 250 MG CAPSULE PO SCH ×2 (09:16→16:00)
[2019-10-23] MEDS: ESCITALOPRAM 10 MG TABLET PO SCH (09:16)
[2019-10-23] MEDS: ASPIRIN 325 MG TABLET PO SCH ×2 (09:16→16:00)
[2019-10-23] MEDS: clonazePAM 0.5 MG TABLET PO PRN (09:16)
[2019-10-23] MEDS: THIAMINE 100 MG TABLET PO SCH (09:16)
[2019-10-23] MEDS: OXYBUTYNIN 5MG TABLET PO SCH (09:16)
[2019-10-23] MEDS: POLYETHYLENE GLYCOL 3350 17 GM PACKET PO SCH (09:17)
[2019-10-23] MEDS: NICOTINE 7 MG PATCH TOP SCH (09:17)
[2019-10-23] MEDS: DULoxetine 30 MG CAPSULE PO SCH (09:23)
[2019-10-23] MEDS: INSULIN GLARGINE 300 UNIT/3 ML PEN SUBQ SCH (09:24)
[2019-10-23] MEDS: BACITRACIN ZINC OINT 1 PACKET TOP SCH (09:25)
[2019-10-23] MEDS: INSULIN ASPART 300 UNIT/3 ML PEN SUBQ SCH ×4 (09:26→22:00)
[2019-10-23] MEDS: oxyCODONE 5 MG TABLET PO PRN ×2 (10:25→22:01)
[2019-10-23] MEDS ORDERED: NEOMYCIN/BACITRA/POLYMYX OINT PACKET TOP SCH (11:34)
--- NOTE | 2019-10-23 12:08 | CONSULTATION NOTE ---
DATE OF SERVICE: 10/23/2019 Physician: Ronni Godfrey MD REFERRING PHYSICIAN: Dr. Shyla Rust of the hospitalist service. HISTORY OF PRESENT ILLNESS: The patient is a 44-year-old diabetic woman, well known to my service, who was recently admitted for continued treatment of the osteomyelitis to her right ankle ar ea. Approximately a month ago she was evaluated here at [facility] after sustaining a right ankle fracture from a recent fall. She did have evidence of a diabetic peripheral neuropathy a nd was cautioned that she might have a rather prolonged course for treatment of her ankle fracture. We did do an open reduction and internal fixation of her fracture, stabilizing her lateral medial mal leolar fracture components. Additional fixation was done because of her diabetes and her peripheral neuropathy. She was, of course, cautioned that she would need to have a prolonged nonweightbearing s tatus of at least 2-3 months before advancing to weightbearing status. She was lost to followup, but did eventually present to [facility] when she had refractured her ankle area and had developed an in fection in the ankle. They subsequently removed the hardware from her ankle and placed into an exter nal fixator after reducing her fracture again. She was started on IV antibiotics for treatment of he r osteomyelitis of her ankle as well. She has grown out multiple organisms, as is typical of diabeti c infections in the lower extremity. She is now currently here at [facility] for continued post operative care. She continues to be on IV antibiotics for treatment of her osteomyelitis. External fixator has also been in place. Attempts to get her resumed in physical therapy have been marginally successful due to her noncompliance and her change in mental status. PHYSICAL EXAMINATION: The patient's leg was inspected today. There is no evidence of any loose pins on her external fixator. No evidence of any pin tract infections. Has some mild swelling around th e ankle region, but minimal erythema and minimal drainage noted. Neurovascular appears to be unchang ed in her foot. Her mental status, however, shows that she is quite different than she was a month ago. She is not n early as communicable. There was no response to any questioning done. She has some spontaneous velvet on in all her extremities. Therapist was mentioning that they may have some difficulty in working wi th pivot transfers on her opposite left leg since she does not appear to be communicable or understan ding their commands. IMAGING: X-rays that were taken on admission show her ankle fracture now stabilized with an external fixator spanning the ankle. The position of her distal fibula and medial malleolar component is sat isfactory. Ankle mortise is satisfactory. ASSESSMENT 1. Status post open reduction and internal fixation of right ankle fracture in this poorly compliant diabetic patient. Has resulted in a refracture and she had hardware removed at [facility] and was p laced in external fixator that spans the ankle. The position of the fracture is satisfactory now and the external fixator appears to be satisfactory. 2. Osteomyelitis of right ankle. 3. Diabetes. PLAN: Agree with the current plan as outlined with [facility] that she will need to be in an externa l fixator to allow the fracture to the heal, presumably in 2-3 months. Infectious disease at [facility] has also been following the patient and has her currently on IV antibiotics for treatment of her osteomyelitis. We will continue to have her stay on nonweightbearing status on this right lower extr emity. We will do daily pin tract care with Neosporin ointment to the pin tract areas and a bulky dr essing around her external fixator as needed to keep her from hurting herself with the frame. She is to follow up as planned with orthopedics and infectious disease at [facility] later this week. TD: 10/23/2019 11:59
[2019-10-23] MEDS: NEOMYCIN/BACITRA/POLYMYX OINT PACKET TOP SCH ×2 (12:12→22:03)
[2019-10-23] MEDS: traZODone 50 MG TABLET PO SCH (22:03)
[2019-10-23] MEDS: PRAZOSIN 1 MG CAPSULE PO SCH (22:03)
[2019-10-24] MEDS: IBUPROFEN 600 MG TABLET PO SCH ×4 (00:11→18:05)
[2019-10-24] MEDS: SODIUM CHLORIDE FLUSH 0.9% 10 ML SYRINGE IVP SCH ×3 (01:48→18:06)
[2019-10-24] MEDS: SODIUM CHLORIDE 0.9% IV SCH ×6 (01:54→21:30)
[2019-10-24] MEDS: PENICILLIN POTASSIUM IV SCH ×6 (01:54→21:30)
[2019-10-24] MEDS ORDERED: ALBUTEROL NEB 2.5 MG/3 ML INH ONE (05:09)
[2019-10-24] MEDS: oxyCODONE 5 MG TABLET PO PRN (05:13)
[2019-10-24] MEDS: METOCLOPRAMIDE 10 MG TABLET PO SCH ×4 (06:29→21:25)
[2019-10-24] MEDS: LEVOTHYROXINE 112 MCG TABLET PO SCH (06:33)
--- NOTE | 2019-10-24 08:58 | PROVIDER PROGRESS NOTE ---
Subjective - Prog Note Date Prog Note Date: 10/24/19 Prog Note Time: 08:56 - Subjective Pt reports feeling: Improved (More alert. Answering questions appropriately) Objective - Vital Signs/Intake & Output Vital Signs: Vital Signs x48h Temp Pulse Resp BP Pulse Ox 10/24/19 07:45 36.6 C 95 18 125/69 98 10/24/19 06:42 36.5 C 96 18 111/67 100 Intake & Output: Intake & Output 10/21/19 10/22/19 10/23/19 10/24/19 23:59 23:59 23:59 23:59 Intake Total 1959 2400 1974 990 Balance 1959 [id number] 990 - Lab Results Fish Bones: 10/19/19 05:00 10/22/19 17:18 Other Labs: Lab Results x24hrs 10/23/19 10/23/19 10/23/19 Range/Units 20:45 17:23 17:06 POC Whole Bld Glucose 269 H 96 55 L* (70 - 100) mg/dL - Other Results/Comments Other Results/Comments: EXAM: Ext fixator- in place. Moves toes well. Stocking/glove distribution of subjective hypesthesia from mid-thigh distally. Good cap filling Assessment/Plan - Problem List (1) Open fracture ankle, trimalleolar Impression: stable PLAN: No change in plans Qualifiers: Encounter type: subsequent encounter Laterality: right Fracture healing: with routine healing
[2019-10-24] MEDS: POLYETHYLENE GLYCOL 3350 17 GM PACKET PO SCH (09:24)
[2019-10-24] MEDS: NICOTINE 7 MG PATCH TOP SCH (09:24)
[2019-10-24] MEDS: ENOXAPARIN 40 MG/0.4 ML SYRINGE SUBQ SCH (09:24)
[2019-10-24] MEDS: ESCITALOPRAM 10 MG TABLET PO SCH (09:24)
[2019-10-24] MEDS: THIAMINE 100 MG TABLET PO SCH (09:25)
[2019-10-24] MEDS: SACCHAROMYCES BOULARDII 250 MG CAPSULE PO SCH ×2 (09:25→18:04)
[2019-10-24] MEDS: FERROUS GLUCONATE 324 MG TABLET PO SCH (09:25)
[2019-10-24] MEDS: DULoxetine 30 MG CAPSULE PO SCH (09:25)
[2019-10-24] MEDS: OXYBUTYNIN 5MG TABLET PO SCH (09:25)
[2019-10-24] MEDS: PRENATAL VITAMIN TABLET PO SCH (09:25)
[2019-10-24] MEDS: DOCUSATE SODIUM 250 MG CAPSULE PO SCH (09:25)
[2019-10-24] MEDS: SENNA 8.6 MG TABLET PO SCH (09:25)
[2019-10-24] MEDS: CYANOCOBALAMIN 500 MCG TABLET PO SCH (09:25)
[2019-10-24] MEDS: ASPIRIN 325 MG TABLET PO SCH ×2 (09:25→18:05)
[2019-10-24] MEDS: INSULIN ASPART 300 UNIT/3 ML PEN SUBQ SCH ×4 (09:26→21:26)
[2019-10-24] MEDS: INSULIN GLARGINE 300 UNIT/3 ML PEN SUBQ SCH (09:33)
[2019-10-24] MEDS: BACITRACIN ZINC OINT 1 PACKET TOP SCH (11:58)
[2019-10-24] MEDS: clonazePAM 0.5 MG TABLET PO PRN (12:14)
[2019-10-24] MEDS: NEOMYCIN/BACITRA/POLYMYX OINT PACKET TOP SCH ×2 (14:07→21:25)
--- NOTE | 2019-10-24 18:22 | PROVIDER PROGRESS NOTE ---
Assessment/Plan - Problem List (1) DM type 1 (diabetes mellitus, type 1) Qualifiers: Diabetes mellitus complication detail: without coma Qualified Code(s): E10.10 - Type 1 diabetes mellitus with ketoacidosis without coma Assessment/Plan: Her DKA has resolved. Glu are still elevated >200 Continue management of Type 1 DM with cc diet, LAntus and ss Insulin (2) Osteomyelitis of ankle Assessment/Plan: The last Hospitalist spoke to ID at and they recommended a total of 6 weeks of iv antibiotics (she is on iv PCN via a newly placed PICC line), and she has just completed 3 weeks of treatment on 10/24/19 (today). This patient had pulled her PICC line out, at home, on the night of admission, as such we had no suspicion during a physical exam, that she was on a prolonged course of treatment. The patient was too obtunded to disclose this and ot was on the 3rd day of this hospitalization that the information was obtained from the daughter, by phone call. The original plan was to see ID at after 3 weeks of treatment, which was originally scheduled for today. During the phone call with ID, that last Hsopitalist was told that ID would not recommend stopping iv PCN earlier, without seeing her in person. As such, we are currently staying with the plan of 6 weeks of iv antibiotics. (3) Campylobacter diarrhea Assessment/Plan: Improving Gentle hydration (4) Altered mental status Qualifiers: Altered mental status type: transient alteration of awareness Qualified Code(s): R40.4 - Transient alteration of awareness Assessment/Plan: Her disorientation vs delerium vs lethargy are not improving espite DKA resolution.' I will reach out for eval at a higher level of care (5) Noncompliance with safety precautions Assessment/Plan: As per the Hx (6) Anemia Assessment/Plan: Stable Hgb (7) Hypothyroidism Assessment/Plan: On replacement (8) Smoker Assessment/Plan: She is on a tapering schedule of nicotine patch - Current Meds Current Meds: Current Medications Generic Name Dose Route Start Last Admin Trade Name Freq PRN Reason Stop Dose Admin Acetaminophen/Butalbital/Caffeine 1 tab 10/15/19 17:18 10/22/19 10:34 Fioricet PO 1 tab Q4H PRN Administration SEVERE HEADACHE Aspirin 325 mg 10/15/19 17:00 10/24/19 18:05 Suri PO 325 mg BIDWM SHELL Administration Bacitracin 1 packet 10/17/19 16:00 10/24/19 11:58 Bacitracin TOP 1 packet DAILY SHELL Administration Baclofen 10 mg 10/15/19 16:56 10/22/19 08:08 Lioresal PO 10 mg QID PRN Administration Spasms Clonazepam 1 mg 10/15/19 17:15 10/24/19 12:14 Klonopin PO 1 mg TID PRN Administration Anxiety Cyanocobalamin 500 mcg 10/18/19 09:00 10/24/19 09:25 Vitamin B-12 PO 500 mcg DAILY SHELL Administration Docusate Sodium 250 - 500 mg 10/21/19 11:00 10/24/19 09:25 Colace 250mg Capsule PO 250 mg DAILY SHELL Administration Duloxetine HCl 120 mg 10/16/19 09:00 10/24/19 09:25 Cymbalta PO 120 mg DAILY SHELL Administration Enoxaparin Sodium 40 mg 10/15/19 09:00 10/24/19 09:24 Lovenox SUBQ 40 mg DAILY SHELL Administration Escitalopram Oxalate 40 mg 10/16/19 09:00 10/24/19 09:24 Lexapro PO 40 mg DAILY SHELL Administration Ferrous Gluconate 324 mg 10/17/19 16:00 10/24/19 09:25 Fergon PO 324 mg DAILYWM SHELL Administration Penicillin G Potassium 4,000, 100 mls @ 200 mls/hr 10/16/19 22:00 10/24/19 18:06 000 unit/ Sodium Chloride IV 200 mls/hr Q4H SHELL Administration Ibuprofen 600 mg 10/17/19 18:00 10/24/19 18:05 Motrin PO 600 mg Q6HR SHELL Administration Insulin Aspart 3 - 11 unit 10/17/19 17:13 10/24/19 18:07 Novolog SUBQ 5 unit 0800,1200,1700,2100 SHELL Administration Protocol Levothyroxine Sodium 112 mcg 10/16/19 07:00 10/24/19 06:33 Synthroid PO 112 mcg QDAC SHELL Administration Metoclopramide HCl 10 mg 10/15/19 21:00 10/24/19 18:05 Reglan PO 10 mg ACHS SHELL Administration Neomycin/Polymyxin/Bacitracin 1 packet 10/23/19 12:06 10/24/19 14:07 Neosporin Oint Pkt TOP 1 packet 1400,2100 SHELL Administration Nicotine 1 patch 10/22/19 12:00 10/24/19 09:24 Nicoderm TOP 1 patch DAILY SHELL Administration Oxybutynin Chloride 5 mg 10/16/19 09:00 10/24/19 09:25 Ditropan PO 5 mg DAILY SHELL Administration Oxycodone HCl 5 mg 10/15/19 17:20 10/24/19 05:13 Roxicodone PO 5 mg Q4HR PRN Administration PAIN Polyethylene Glycol 17 gm 10/20/19 12:00 10/24/19 09:24 Miralax PO 17 gm DAILY SHELL Administration Prazosin HCl 5 mg 10/15/19 21:00 10/23/19 22:03 Minipress PO 5 mg QPM SHELL Administration Multivit/Folic Acid/Iron 1 tab 10/18/19 08:00 10/24/19 09:25 Trinatal Rx 1 PO 1 tab DAILYWM SHELL Administration Prochlorperazine Edisylate 10 mg 10/14/19 12:44 10/19/19 12:15 Compazine Inj IVP 10 mg Q6HR PRN Administration Nausea / Vomiting Saccharomyces Boulardii 250 mg 10/17/19 17:00 10/24/19 18:04 Florastor PO 250 mg BIDWM SHELL Administration Senna 8.6 - 17.2 mg 10/21/19 11:00 10/24/19 09:25 Senokot PO 8.6 mg DAILY SHELL Administration Sodium Chloride 10 ml 10/14/19 17:00 10/24/19 18:06 Normal Saline Flush 0.9% IVP 10 ml 0100,0900,1700 SHELL Administration Sodium Chloride 10 ml 10/14/19 12:44 10/22/19 22:00 Normal Saline Flush 0.9% IVP 10 ml PRN PRN Administration NEEDED PER PROVIDER ORDERS Sodium Chloride 20 ml 10/15/19 03:04 10/15/19 04:53 Normal Saline Flush 0.9% IVP 20 ml PRN PRN Administration After Blood Draw Thiamine HCl 100 mg 10/18/19 09:00 10/24/19 09:25 Vitamin B-1 PO 100 mg DAILY SHELL Administration Trazodone HCl 200 mg 10/15/19 21:00 10/23/19 22:03 Desyrel PO 200 mg QPM SHELL Administration - Lab Result Fish Bone Diagrams: 10/19/19 05:00 10/22/19 17:18 - Additional Planning My Orders: My Active Orders 10/25/19 08:00 Insulin Glargine [Lantus Solostar] 18 unit SUBQ [id number] Subjective - Subjective Patient Reports: Other (Sleeping) Objective Vital Signs: Vital Signs - 24 hr 10/23/19 10/24/19 10/24/19 20:40 00:22 06:42 Temperature 36.8 C 36.7 C 36.5 C Heart Rate [ 77 96 Brachial] Heart Rate [ 95 Monitoring electrodes] Respiratory 16 16 18 Rate Blood Pressure 126/78 120/67 111/67 [Right Brachial artery] O2 Saturation 99 97 100 10/24/19 10/24/19 07:45 15:37 Temperature 36.6 C 37 C Heart Rate [ 95 96 Brachial] Heart Rate [ Monitoring electrodes] Respiratory 18 18 Rate Blood Pressure 125/69 131/67 H [Right Brachial artery] O2 Saturation 98 99 Oxygen O2 Source Room air I&O (Last 24 Hrs): Intake and Output Totals x24h 10/22/19 10/23/19 10/24/19 23:59 23:59 23:59 Intake Total 2399 1974 1869 Balance 2399 1974 1869 General: Other (Sleeping, lethargic) HEENT: Mucous membr. moist/pink Neck: Supple Neuro: Disoriented, Non Focal, Other (Does not follow commands) Cardiovascular: Regular rate, No murmurs Respiratory: No respiratory distress Abdomen: Soft Extremities: No edema, Other (R foot in pillows around her rods) - Results Results: Laboratory Results WBC 4.9 x10^3/uL (4.8-10.8) 10/19/19 05:00 RBC 3.63 10^6/uL (4.20-5.40) L 10/21/19 17:19 Hgb 8.9 g/dL (12.0-16.0) L 10/19/19 05:00 Hct 28.9 % (37.0-47.0) L 10/19/19 05:00 MCV 89.5 fL (81.0-99.0) 10/19/19 05:00 MCH 27.6 pg (27.0-31.0) 10/19/19 05:00 MCHC 30.8 g/dL (32.0-36.0) L 10/19/19 05:00 RDW 20.3 % (12.0-15.0) H 10/19/19 05:00 Plt Count 267 10^3/uL (130-450) 10/19/19 05:00 MPV 11.0 fL (7.9-10.8) H 10/19/19 05:00 Reticulocyte % (Auto) 3.38 % (0.5-2.3) H 10/21/19 17:19 Neut # (Auto) 3.0 10^3/uL (1.5-6.6) 10/19/19 05:00 Lymph # (Auto) 1.0 10^3/uL (1.5-3.5) L 10/19/19 05:00 [place] # (Auto) 0.3 10^3/uL (0.0-1.0) 10/19/19 05:00 Eos # (Auto) 0.6 10^3/uL (0.0-0.7) 10/19/19 05:00 Baso # (Auto) 0.0 10^3/uL (0.0-0.1) 10/19/19 05:00 Absolute Nucleated RBC 0.00 x10^3/uL 10/19/19 05:00 Nucleated RBC % 0.0 /100WBC 10/19/19 05:00 Manual Slide Review Indicated 10/19/19 05:00 WBC Morphology NORMAL APPEARANCE (NORMAL) 10/18/19 09:20 Platelet Estimate NORMAL (130-450,000) (NORMAL) 10/19/19 05:00 Platelet Morphology 1+ LARGE PLATELETS (NORMAL) 10/18/19 09:20 RBC Morph Micro Appear 1+ ANISOCYTOSIS (NORMAL) 1+ HYPOCHROMASIA (NORMAL) 1+ POLYCHROMASIA (NORMAL) 10/18/19 09:20 RBC Morph Micro Appear 1+ ANISOCYTOSIS (NORMAL) 1+ HYPOCHROMASIA (NORMAL) 1+ POLYCHROMASIA (NORMAL) 10/18/19 09:20 RBC Morph Micro Appear 1+ ANISOCYTOSIS (NORMAL) 1+ HYPOCHROMASIA (NORMAL) 1+ POLYCHROMASIA (NORMAL) 1+ OVALOCYTES (NORMAL) 10/19/19 05:00 RBC Morph Micro Appear 1+ ANISOCYTOSIS (NORMAL) 1+ HYPOCHROMASIA (NORMAL) 1+ POLYCHROMASIA (NORMAL) 1+ OVALOCYTES (NORMAL) 10/19/19 05:00 RBC Morph Micro Appear 1+ ANISOCYTOSIS (NORMAL) 1+ HYPOCHROMASIA (NORMAL) 1+ POLYCHROMASIA (NORMAL) 1+ OVALOCYTES (NORMAL) 10/19/19 05:00 RBC Morph Micro Appear 1+ ANISOCYTOSIS (NORMAL) 1+ HYPOCHROMASIA (NORMAL) 1+ POLYCHROMASIA (NORMAL) 1+ OVALOCYTES (NORMAL) 10/19/19 05:00 Absolute Retic 0.123 10^6/uL (0.020-0.110) H 10/21/19 17:19 VBG pH 7.422 (7.31-7.41) H 10/14/19 16:00 VBG pCO2 35.2 mmHg (41-51) L 10/14/19 16:00 VBG pO2 74.1 mmHg (25-47) H 10/14/19 16:00 VBG HCO3 22.4 mmol/L (23-28) L 10/14/19 16:00 VBG Total CO2 23.5 mmol/L (24-29) L 10/14/19 16:00 VBG O2 Saturation 94.7 % (60-80) H 10/14/19 16:00 VBG Base Excess -1.6 mmol/L (-2 - +2) 10/14/19 16:00 Sodium 138 mmol/L (135-145) 10/19/19 05:00 Potassium 4.1 mmol/L (3.5-5.0) 10/19/19 05:00 Chloride 106 mmol/L (101-111) 10/19/19 05:00 Carbon Dioxide 26 mmol/L (21-32) 10/19/19 05:00 Anion Gap 6.0 (6-13) 10/19/19 05:00 BUN 7 mg/dL (6-20) 10/19/19 05:00 Creatinine 0.7 mg/dL (0.4-1.0) 10/19/19 05:00 Estimated GFR (MDRD) 90 (>89) 10/19/19 05:00 Glucose 616 mg/dL (70-100) H* 10/22/19 17:18 POC Whole Bld Glucose 269 mg/dL (70 - 100) H 10/23/19 20:45 Glycated Hemoglobin 7.9 % (4.6-6.2) H 10/14/19 13:33 Estim Average Glucose 180 (70-100) H 10/14/19 13:33 Lactic Acid 1.7 mmol/L (0.5-2.2) 10/14/19 08:18 Calcium 8.4 mg/dL (8.5-10.3) L 10/19/19 05:00 Phosphorus 4.2 mg/dL (2.5-4.6) 10/19/19 05:00 Magnesium 1.8 mg/dL (1.7-2.8) 10/19/19 05:00 Iron 27 ug/dL (28-170) L 10/21/19 17:19 TIBC 255 ug/dL (250-450) 10/21/19 17:19 % Saturation 11 % (20-50) L 10/21/19 17:19 Transferrin 182 mg/dL (192-382) L 10/21/19 17:19 Ferritin 32.6 ng/mL (11.0-306.8) 10/21/19 17:19 Total Bilirubin 1.2 mg/dL (0.2-1.0) H 10/14/19 08:18 AST 13 IU/L (10-42) 10/14/19 08:18 ALT 14 IU/L (10-60) 10/14/19 08:18 Alkaline Phosphatase 95 IU/L (42-121) 10/14/19 08:18 Ammonia 12.9 umol/L (7-35) 10/16/19 05:30 Lactate Dehydrogenase 201 IU/L (91-225) 10/21/19 17:19 Total Protein 7.3 g/dL (6.7-8.2) 10/14/19 08:18 Albumin 2.5 g/dL (3.2-5.5) L 10/18/19 04:25 Globulin 3.8 g/dL (2.1-4.2) 10/14/19 08:18 Albumin/Globulin Ratio 0.9 (1.0-2.2) L 10/14/19 08:18 Lipase 59 U/L (22-51) H 10/14/19 08:18 Vitamin B12 687 pg/mL (180-914) 10/21/19 17:19 Urine Color YELLOW 10/14/19 08:52 Urine Clarity CLEAR (CLEAR) 10/14/19 08:52 Urine pH 5.5 PH (5.0-7.5) 10/14/19 08:52 Ur Specific [place] <=1.005 (1.002-1.030) 10/14/19 08:52 Urine Protein NEGATIVE mg/dL (NEGATIVE) 10/14/19 08:52 Urine Glucose (UA) >=1000 mg/dL (NEGATIVE) H 10/14/19 08:52 Urine Ketones 15 mg/dL (NEGATIVE) H 10/14/19 08:52 Urine Occult Blood NEGATIVE (NEGATIVE) 10/14/19 08:52 Urine Nitrite NEGATIVE (NEGATIVE) 10/14/19 08:52 Urine Bilirubin NEGATIVE (NEGATIVE) 10/14/19 08:52 Urine Urobilinogen 0.2 (NORMAL) E.U./dL (NORMAL) 10/14/19 08:52 Ur Leukocyte Esterase NEGATIVE (NEGATIVE) 10/14/19 08:52 Ur Microscopic Review NOT INDICATED 10/14/19 08:52 Urine Culture Comments NOT INDICATED 10/14/19 08:52 Urine HCG, Qual NEGATIVE 10/14/19 08:52 Nasal Screen MRSA (PCR) NEGATIVE (NEGATIVE) 10/14/19 14:00 Salicylates < 6.0 mg/dL 10/14/19 08:18 Urine Opiates Screen NEGATIVE (NEGATIVE) 10/14/19 08:52 Ur Oxycodone Screen NEGATIVE (NEGATIVE) 10/14/19 08:52 Urine Methadone Screen NEGATIVE (NEGATIVE) 10/14/19 08:52 Ur Propoxyphene Screen NEGATIVE (NEGATIVE) 10/14/19 08:52 Acetaminophen < 10 ug/mL (10-30) L 10/14/19 08:18 Ur Barbiturates Screen POSITIVE (NEGATIVE) H 10/14/19 08:52 Ur Tricyclics Screen NEGATIVE (NEGATIVE) 10/14/19 08:52 Ur Phencyclidine Scrn NEGATIVE (NEGATIVE) 10/14/19 08:52 Ur Amphetamine Screen NEGATIVE (NEGATIVE) 10/14/19 08:52 U Methamphetamines Scrn NEGATIVE (NEGATIVE) 10/14/19 08:52 U Benzodiazepines Scrn NEGATIVE (NEGATIVE) 10/14/19 08:52 Urine Cocaine Screen NEGATIVE (NEGATIVE) 10/14/19 08:52 U Cannabinoids Screen NEGATIVE (NEGATIVE) 10/14/19 08:52 Ethyl Alcohol 7.9 mg/dL 10/14/19 08:18 Serum Ketones NEGATIVE (NEGATIVE) 10/15/19 04:04 - Procedures Procedures: Procedures EXCISION OF STOMACH, ENDO, DIAGN (05/24/18) INSPECTION OF LOWER INTESTINAL TRACT, ENDO (05/24/18) REPOSITION RIGHT FIBULA WITH INT FIX, OPEN APPROACH (09/15/19) REPOSITION RIGHT TIBIA WITH INT FIX, OPEN APPROACH (09/15/19) TRANSFUSE NONAUT RED BLOOD CELLS IN PERIPH VEIN, PERC (09/15/19)
[2019-10-24] MEDS: SODIUM CHLORIDE FLUSH 0.9% 10 ML SYRINGE IVP PRN (19:02)
[2019-10-24] MEDS: PRAZOSIN 1 MG CAPSULE PO SCH (21:24)
[2019-10-24] MEDS: traZODone 50 MG TABLET PO SCH (21:25)
[2019-10-25] MEDS: IBUPROFEN 600 MG TABLET PO SCH ×3 (00:14→11:09)
[2019-10-25] MEDS ORDERED: SODIUM CHLORIDE 0.9% 500 ML ONE (02:19)
[2019-10-25] MEDS: SODIUM CHLORIDE 0.9% IV SCH ×4 (02:22→14:05)
[2019-10-25] MEDS: PENICILLIN POTASSIUM IV SCH ×4 (02:22→14:05)
[2019-10-25] MEDS: SODIUM CHLORIDE FLUSH 0.9% 10 ML SYRINGE IVP SCH ×2 (02:22→08:28)
[2019-10-25] MEDS ORDERED: SODIUM CHLORIDE 0.9% 500 ML IV PRN (03:12)
[2019-10-25] MEDS: oxyCODONE 5 MG TABLET PO PRN (05:47)
[2019-10-25] MEDS: METOCLOPRAMIDE 10 MG TABLET PO SCH ×2 (05:48→11:09)
[2019-10-25] MEDS: LEVOTHYROXINE 112 MCG TABLET PO SCH (05:55)
[2019-10-25] MEDS: INSULIN ASPART 300 UNIT/3 ML PEN SUBQ SCH ×2 (07:37→11:09)
[2019-10-25] MEDS ORDERED: INSULIN GLARGINE 300 UNIT/3 ML PEN SUBQ SCH ×2 (08:00→21:00)
[2019-10-25] MEDS ORDERED: INSULIN ASPART 300 UNIT/3 ML PEN SUBQ ONE (08:15)
[2019-10-25] MEDS: ASPIRIN 325 MG TABLET PO SCH (08:24)
[2019-10-25] MEDS: PRENATAL VITAMIN TABLET PO SCH (08:24)
[2019-10-25] MEDS: THIAMINE 100 MG TABLET PO SCH (08:24)
[2019-10-25] MEDS: OXYBUTYNIN 5MG TABLET PO SCH (08:24)
[2019-10-25] MEDS: DOCUSATE SODIUM 250 MG CAPSULE PO SCH (08:24)
[2019-10-25] MEDS: CYANOCOBALAMIN 500 MCG TABLET PO SCH (08:24)
[2019-10-25] MEDS: ESCITALOPRAM 10 MG TABLET PO SCH (08:24)
[2019-10-25] MEDS: DULoxetine 30 MG CAPSULE PO SCH (08:24)
[2019-10-25] MEDS: FERROUS GLUCONATE 324 MG TABLET PO SCH (08:24)
[2019-10-25] MEDS: SACCHAROMYCES BOULARDII 250 MG CAPSULE PO SCH (08:24)
[2019-10-25] MEDS: SENNA 8.6 MG TABLET PO SCH (08:24)
[2019-10-25] MEDS: POLYETHYLENE GLYCOL 3350 17 GM PACKET PO SCH (08:25)
[2019-10-25] MEDS: ENOXAPARIN 40 MG/0.4 ML SYRINGE SUBQ SCH (08:25)
[2019-10-25] MEDS: BACITRACIN ZINC OINT 1 PACKET TOP SCH (08:28)
[2019-10-25] MEDS: NICOTINE 7 MG PATCH TOP SCH (08:28)
--- NOTE | 2019-10-25 11:55 | PROVIDER PROGRESS NOTE ---
Assessment/Plan - Problem List (4) Altered mental status Qualifiers: Altered mental status type: transient alteration of awareness Qualified Code(s): R40.4 - Transient alteration of awareness - Current Meds Current Meds: Current Medications Generic Name Dose Route Start Last Admin Trade Name Freq PRN Reason Stop Dose Admin Acetaminophen/Butalbital/Caffeine 1 tab 10/15/19 17:18 10/22/19 10:34 Fioricet PO 1 tab Q4H PRN Administration SEVERE HEADACHE Aspirin 325 mg 10/15/19 17:00 10/25/19 08:24 Suri PO 325 mg BIDWM SHELL Administration Bacitracin 1 packet 10/17/19 16:00 10/25/19 08:28 Bacitracin TOP 1 packet DAILY SHELL Administration Baclofen 10 mg 10/15/19 16:56 10/22/19 08:08 Lioresal PO 10 mg QID PRN Administration Spasms Clonazepam 1 mg 10/15/19 17:15 10/24/19 12:14 Klonopin PO 1 mg TID PRN Administration Anxiety Cyanocobalamin 500 mcg 10/18/19 09:00 10/25/19 08:24 Vitamin B-12 PO 500 mcg DAILY SHELL Administration Docusate Sodium 250 - 500 mg 10/21/19 11:00 10/25/19 08:24 Colace 250mg Capsule PO 250 mg DAILY SHELL Administration Duloxetine HCl 120 mg 10/16/19 09:00 10/25/19 08:24 Cymbalta PO 120 mg DAILY SHELL Administration Enoxaparin Sodium 40 mg 10/15/19 09:00 10/25/19 08:25 Lovenox SUBQ 40 mg DAILY SHELL Administration Escitalopram Oxalate 40 mg 10/16/19 09:00 10/25/19 08:24 Lexapro PO 40 mg DAILY SHELL Administration Ferrous Gluconate 324 mg 10/17/19 16:00 10/25/19 08:24 Fergon PO 324 mg DAILYWM SHELL Administration Penicillin G Potassium 4,000, 100 mls @ 200 mls/hr 10/16/19 22:00 10/25/19 11:21 000 unit/ Sodium Chloride IV Infused Q4H SHELL Infusion Sodium Chloride 500 mls @ 0 mls/hr 10/25/19 03:12 10/25/19 11:21 Normal Saline 0.9% IV 30 mls/hr Q24H PRN Infusion TKO RATE TKO Ibuprofen 600 mg 10/17/19 18:00 10/25/19 11:09 Motrin PO 600 mg Q6HR SHELL Administration Insulin Aspart 3 - 11 unit 10/17/19 17:13 10/25/19 11:09 Novolog SUBQ Not Given 0800,1200,1700,2100 [facility] Protocol Levothyroxine Sodium 112 mcg 10/16/19 07:00 10/25/19 05:55 Synthroid PO 112 mcg QDAC SHELL Administration Metoclopramide HCl 10 mg 10/15/19 21:00 10/25/19 11:09 Reglan PO 10 mg ACHS SHELL Administration Neomycin/Polymyxin/Bacitracin 1 packet 10/23/19 12:06 10/24/19 21:25 Neosporin Oint Pkt TOP 1 packet 1400,2100 SHELL Administration Nicotine 1 patch 10/22/19 12:00 10/25/19 08:28 Nicoderm TOP 1 patch DAILY SHELL Administration Oxybutynin Chloride 5 mg 10/16/19 09:00 10/25/19 08:24 Ditropan PO 5 mg DAILY SHELL Administration Oxycodone HCl 5 mg 10/15/19 17:20 10/25/19 05:47 Roxicodone PO 5 mg Q4HR PRN Administration PAIN Polyethylene Glycol 17 gm 10/20/19 12:00 10/25/19 08:25 Miralax PO 17 gm DAILY SHELL Administration Prazosin HCl 5 mg 10/15/19 21:00 10/24/19 21:24 Minipress PO 5 mg QPM SHELL Administration Multivit/Folic Acid/Iron 1 tab 10/18/19 08:00 10/25/19 08:24 Trinatal Rx 1 PO 1 tab DAILYWM SHELL Administration Prochlorperazine Edisylate 10 mg 10/14/19 12:44 10/19/19 12:15 Compazine Inj IVP 10 mg Q6HR PRN Administration Nausea / Vomiting Saccharomyces Boulardii 250 mg 10/17/19 17:00 10/25/19 08:24 Florastor PO 250 mg BIDWM SHELL Administration Senna 8.6 - 17.2 mg 10/21/19 11:00 10/25/19 08:24 Senokot PO 8.6 mg DAILY SHELL Administration Sodium Chloride 10 ml 10/14/19 17:00 10/25/19 08:28 Normal Saline Flush 0.9% IVP 10 ml 0100,0900,1700 SHELL Administration Sodium Chloride 10 ml 10/14/19 12:44 10/24/19 19:02 Normal Saline Flush 0.9% IVP 10 ml PRN PRN Administration NEEDED PER PROVIDER ORDERS Sodium Chloride 20 ml 10/15/19 03:04 10/15/19 04:53 Normal Saline Flush 0.9% IVP 20 ml PRN PRN Administration After Blood Draw Thiamine HCl 100 mg 10/18/19 09:00 10/25/19 08:24 Vitamin B-1 PO 100 mg DAILY SHELL Administration Trazodone HCl 200 mg 10/15/19 21:00 10/24/19 21:25 Desyrel PO 200 mg QPM SHELL Administration - Lab Result Fish Bone Diagrams: 10/19/19 05:00 10/22/19 17:18 - Additional Planning My Orders: My Active Orders 10/25/19 03:12 Sodium Chloride 0.9% [Normal Saline 0.9%] 500 ml IV Q24H 10/25/19 11:49 A1C [CHEM] Routine 10/25/19 17:00 Insulin Aspart [NovoLOG] 3 unit SUBQ TIDWM 10/25/19 21:00 Insulin Glargine [Lantus Solostar] 15 unit SUBQ BID Objective Vital Signs: Vital Signs - 24 hr 10/24/19 10/25/19 10/25/19 15:37 00:19 07:48 Temperature 37 C 36.6 C 36.7 C Heart Rate [ 96 105 H 102 H Brachial] Respiratory 18 18 18 Rate Blood Pressure 131/67 H 102/61 130/74 [Right Brachial artery] O2 Saturation 99 97 95 Oxygen O2 Source Room air I&O (Last 24 Hrs): Intake and Output Totals x24h 10/23/19 10/24/19 10/25/19 23:59 23:59 23:59 Intake Total 1974 2069 1908.5 Balance 1974 2069 1908.5 - Results Results: Laboratory Results WBC 4.9 x10^3/uL (4.8-10.8) 10/19/19 05:00 RBC 3.63 10^6/uL (4.20-5.40) L 10/21/19 17:19 Hgb 8.9 g/dL (12.0-16.0) L 10/19/19 05:00 Hct 28.9 % (37.0-47.0) L 10/19/19 05:00 MCV 89.5 fL (81.0-99.0) 10/19/19 05:00 MCH 27.6 pg (27.0-31.0) 10/19/19 05:00 MCHC 30.8 g/dL (32.0-36.0) L 10/19/19 05:00 RDW 20.3 % (12.0-15.0) H 10/19/19 05:00 Plt Count 267 10^3/uL (130-450) 10/19/19 05:00 MPV 11.0 fL (7.9-10.8) H 10/19/19 05:00 Reticulocyte % (Auto) 3.38 % (0.5-2.3) H 10/21/19 17:19 Neut # (Auto) 3.0 10^3/uL (1.5-6.6) 10/19/19 05:00 Lymph # (Auto) 1.0 10^3/uL (1.5-3.5) L 10/19/19 05:00 [place] # (Auto) 0.3 10^3/uL (0.0-1.0) 10/19/19 05:00 Eos # (Auto) 0.6 10^3/uL (0.0-0.7) 10/19/19 05:00 Baso # (Auto) 0.0 10^3/uL (0.0-0.1) 10/19/19 05:00 Absolute Nucleated RBC 0.00 x10^3/uL 10/19/19 05:00 Nucleated RBC % 0.0 /100WBC 10/19/19 05:00 Manual Slide Review Indicated 10/19/19 05:00 WBC Morphology NORMAL APPEARANCE (NORMAL) 10/18/19 09:20 Platelet Estimate NORMAL (130-450,000) (NORMAL) 10/19/19 05:00 Platelet Morphology 1+ LARGE PLATELETS (NORMAL) 10/18/19 09:20 RBC Morph Micro Appear 1+ ANISOCYTOSIS (NORMAL) 1+ HYPOCHROMASIA (NORMAL) 1+ POLYCHROMASIA (NORMAL) 10/18/19 09:20 RBC Morph Micro Appear 1+ ANISOCYTOSIS (NORMAL) 1+ HYPOCHROMASIA (NORMAL) 1+ POLYCHROMASIA (NORMAL) 10/18/19 09:20 RBC Morph Micro Appear 1+ ANISOCYTOSIS (NORMAL) 1+ HYPOCHROMASIA (NORMAL) 1+ POLYCHROMASIA (NORMAL) 1+ OVALOCYTES (NORMAL) 10/19/19 05:00 RBC Morph Micro Appear 1+ ANISOCYTOSIS (NORMAL) 1+ HYPOCHROMASIA (NORMAL) 1+ POLYCHROMASIA (NORMAL) 1+ OVALOCYTES (NORMAL) 10/19/19 05:00 RBC Morph Micro Appear 1+ ANISOCYTOSIS (NORMAL) 1+ HYPOCHROMASIA (NORMAL) 1+ POLYCHROMASIA (NORMAL) 1+ OVALOCYTES (NORMAL) 10/19/19 05:00 RBC Morph Micro Appear 1+ ANISOCYTOSIS (NORMAL) 1+ HYPOCHROMASIA (NORMAL) 1+ POLYCHROMASIA (NORMAL) 1+ OVALOCYTES (NORMAL) 10/19/19 05:00 Absolute Retic 0.123 10^6/uL (0.020-0.110) H 10/21/19 17:19 VBG pH 7.422 (7.31-7.41) H 10/14/19 16:00 VBG pCO2 35.2 mmHg (41-51) L 10/14/19 16:00 VBG pO2 74.1 mmHg (25-47) H 10/14/19 16:00 VBG HCO3 22.4 mmol/L (23-28) L 10/14/19 16:00 VBG Total CO2 23.5 mmol/L (24-29) L 10/14/19 16:00 VBG O2 Saturation 94.7 % (60-80) H 10/14/19 16:00 VBG Base Excess -1.6 mmol/L (-2 - +2) 10/14/19 16:00 Sodium 138 mmol/L (135-145) 10/19/19 05:00 Potassium 4.1 mmol/L (3.5-5.0) 10/19/19 05:00 Chloride 106 mmol/L (101-111) 10/19/19 05:00 Carbon Dioxide 26 mmol/L (21-32) 10/19/19 05:00 Anion Gap 6.0 (6-13) 10/19/19 05:00 BUN 7 mg/dL (6-20) 10/19/19 05:00 Creatinine 0.7 mg/dL (0.4-1.0) 10/19/19 05:00 Estimated GFR (MDRD) 90 (>89) 10/19/19 05:00 Glucose 616 mg/dL (70-100) H* 10/22/19 17:18 POC Whole Bld Glucose 101 mg/dL (70 - 100) H 10/25/19 11:09 Glycated Hemoglobin 7.9 % (4.6-6.2) H 10/14/19 13:33 Estim Average Glucose 180 (70-100) H 10/14/19 13:33 Lactic Acid 1.7 mmol/L (0.5-2.2) 10/14/19 08:18 Calcium 8.4 mg/dL (8.5-10.3) L 10/19/19 05:00 Phosphorus 4.2 mg/dL (2.5-4.6) 10/19/19 05:00 Magnesium 1.8 mg/dL (1.7-2.8) 10/19/19 05:00 Iron 27 ug/dL (28-170) L 10/21/19 17:19 TIBC 255 ug/dL (250-450) 10/21/19 17:19 % Saturation 11 % (20-50) L 10/21/19 17:19 Transferrin 182 mg/dL (192-382) L 10/21/19 17:19 Ferritin 32.6 ng/mL (11.0-306.8) 10/21/19 17:19 Total Bilirubin 1.2 mg/dL (0.2-1.0) H 10/14/19 08:18 AST 13 IU/L (10-42) 10/14/19 08:18 ALT 14 IU/L (10-60) 10/14/19 08:18 Alkaline Phosphatase 95 IU/L (42-121) 10/14/19 08:18 Ammonia 12.9 umol/L (7-35) 10/16/19 05:30 Lactate Dehydrogenase 201 IU/L (91-225) 10/21/19 17:19 Total Protein 7.3 g/dL (6.7-8.2) 10/14/19 08:18 Albumin 2.5 g/dL (3.2-5.5) L 10/18/19 04:25 Globulin 3.8 g/dL (2.1-4.2) 10/14/19 08:18 Albumin/Globulin Ratio 0.9 (1.0-2.2) L 10/14/19 08:18 Lipase 59 U/L (22-51) H 10/14/19 08:18 Vitamin B12 687 pg/mL (180-914) 10/21/19 17:19 Urine Color YELLOW 10/14/19 08:52 Urine Clarity CLEAR (CLEAR) 10/14/19 08:52 Urine pH 5.5 PH (5.0-7.5) 10/14/19 08:52 Ur Specific [place] <=1.005 (1.002-1.030) 10/14/19 08:52 Urine Protein NEGATIVE mg/dL (NEGATIVE) 10/14/19 08:52 Urine Glucose (UA) >=1000 mg/dL (NEGATIVE) H 10/14/19 08:52 Urine Ketones 15 mg/dL (NEGATIVE) H 10/14/19 08:52 Urine Occult Blood NEGATIVE (NEGATIVE) 10/14/19 08:52 Urine Nitrite NEGATIVE (NEGATIVE) 10/14/19 08:52 Urine Bilirubin NEGATIVE (NEGATIVE) 10/14/19 08:52 Urine Urobilinogen 0.2 (NORMAL) E.U./dL (NORMAL) 10/14/19 08:52 Ur Leukocyte Esterase NEGATIVE (NEGATIVE) 10/14/19 08:52 Ur Microscopic Review NOT INDICATED 10/14/19 08:52 Urine Culture Comments NOT INDICATED 10/14/19 08:52 Urine HCG, Qual NEGATIVE 10/14/19 08:52 Nasal Screen MRSA (PCR) NEGATIVE (NEGATIVE) 10/14/19 14:00 Salicylates < 6.0 mg/dL 10/14/19 08:18 Urine Opiates Screen NEGATIVE (NEGATIVE) 10/14/19 08:52 Ur Oxycodone Screen NEGATIVE (NEGATIVE) 10/14/19 08:52 Urine Methadone Screen NEGATIVE (NEGATIVE) 10/14/19 08:52 Ur Propoxyphene Screen NEGATIVE (NEGATIVE) 10/14/19 08:52 Acetaminophen < 10 ug/mL (10-30) L 10/14/19 08:18 Ur Barbiturates Screen POSITIVE (NEGATIVE) H 10/14/19 08:52 Ur Tricyclics Screen NEGATIVE (NEGATIVE) 10/14/19 08:52 Ur Phencyclidine Scrn NEGATIVE (NEGATIVE) 10/14/19 08:52 Ur Amphetamine Screen NEGATIVE (NEGATIVE) 10/14/19 08:52 U Methamphetamines Scrn NEGATIVE (NEGATIVE) 10/14/19 08:52 U Benzodiazepines Scrn NEGATIVE (NEGATIVE) 10/14/19 08:52 Urine Cocaine Screen NEGATIVE (NEGATIVE) 10/14/19 08:52 U Cannabinoids Screen NEGATIVE (NEGATIVE) 10/14/19 08:52 Ethyl Alcohol 7.9 mg/dL 10/14/19 08:18 Serum Ketones NEGATIVE (NEGATIVE) 10/15/19 04:04 - Procedures Procedures: Procedures EXCISION OF STOMACH, ENDO, DIAGN (05/24/18) INSPECTION OF LOWER INTESTINAL TRACT, ENDO (05/24/18) REPOSITION RIGHT FIBULA WITH INT FIX, OPEN APPROACH (09/15/19) REPOSITION RIGHT TIBIA WITH INT FIX, OPEN APPROACH (09/15/19) TRANSFUSE NONAUT RED BLOOD CELLS IN PERIPH VEIN, PERC (09/15/19)
[2019-10-25] MEDS ORDERED: INSULIN ASPART 300 UNIT/3 ML PEN SUBQ SCH ×2 (12:00→17:00)
[2019-10-25 12:48] LABS: HB2 TOTAL 9.5 g/dL; HEMOGLOBIN A1C 0.51 g/dL; HEMOGLOBIN A1C % 7.1 % (4.6-6.2)
[2019-10-25] MEDS: NEOMYCIN/BACITRA/POLYMYX OINT PACKET TOP SCH (14:05)
--- NOTE | 2019-10-25 16:07 | Discharge Plan ---
Discharge Plan Problem Reviewed?: Yes Disposition: 02 Transfer Acute Care [facility] Instruction Topics: Iron tablets capsules extended-release tablets, Famotidine tablets or gelcaps, Saccharomyces boulardii Florastor oral dosage forms No Smoking: If you smoke, Please STOP! Call for help.
[2019-10-25 16:23] VITALS: BP 150/85
--- NOTE | 2019-10-25 18:30 | DISCHARGE SUMMARY ---
Discharge Summary Admit Date: 10/14/19 Discharge Date: 10/25/19 Discharging Provider: Dr Saira Bird Primary Care Provider: Dr Isatu Belle Code Status: Do Not Attempt Resuscitation Condition at Discharge: Serious Discharge Disposition: 02 Transfer Acute Care Hosp Discharge Facility Name: [facility] - DIAGNOSES Admission Diagnoses: 1) DKA 2) OD of codeine 3) Altered mental status 4) Anemia 5) Opiate dependance 6) Hx of ankle surgery 7) Chronic pain 8) Hypothyroidism 9) Depression 10) Hx of seizures 11) Smoker Discharge Diagnoses with Status of Each Condition: See below - HPI History of Present Illness: This is a 44-year-old white female with history of insulin-dependent diabetes after gestation, previously on an Insulin pump but over the last month she has used subcutaneous insulin. She also has chronic pain, opioid dependence, depression, history of seizures, anemia and is a smoker. She had suffered a right ankle fracture 1 month ago and was hospitalized here, needed ORIF orthopedic surgery, was repeatedly and strongly advised to have no weightbearing for 3 months and was sent home, to live with help provided by her 2 adult children. On this admission she was brought to the emergency room by ambulance; the daughter had called ambulance when the patient was confused, incoherent, staggering, was not following no-weightbearing orders, and had possibly taken all of her tablets of recently prescribed codeine. In the emergency room she was found to have white count of 13.9, hemoglobin 9.1, glucose of 900, pH of 7.3, anion gap of 20. Also found were new external rods stabilizing the right ankle that had been fractured and repaired internally 1 month ago. When asked when and where this new surgery was done, she was too obtunded to give any answers. He was admitted to the ICU for DKA management and possible codeine overdose. - HOSPITAL COURSE Hospital Course: 1) DKA On a DKA protocol, insulin drip, and IV fluids and her mentation slowly cleared. She was started on a diet and transitioned to Lantus insulin, and Regular sliding scale insulin. 2) Brittle DM, type 1 Her glucose fluctuated between hypoglycemic at 60-70 and hyperglycemic at 300 and the course of just several hours. 3) Osteomyelitis Our Transitions nurse was able to reach the daughter who stated that the mother had "3 ankle surgeries" and a hospitalization at . The discharge summary from [facility] arrived and was reviewed: The patient was hospitalized there from 09/29 to 10/06. She did undergo 2 ankle surgeries for a failure of fixation with the previous right trimalleolar ankle fracture which had dislocated. She underwent removal of deep implants and placement of an ankle spanning external fixator. She had a full thickness soft tissue defect of the right medial malleolus and was diagnosed with osteomyelitis of the right tibia. She had a PICC line placed and was followed by infectious disease. The 20 year-old daughter was trained to administer IV penicillin. Patient was to have a visiting nurse and weekly blood draws with results sent to infectious disease. I was able to contact the daughter, Liana, and learned what happened over the 1 week the patient was home: The visiting nurse visited 3 times. The daughter did administer penicillin as directed. The advice was to have no weight bearing on that right foot. On the night before this admission, the daughter filled the oxycodone prescription and left the mother home alone for 1/2 hours. When she came home she found the patient standing in the daughter's bedroom, naked, there was blood all over the floor and she had urinated on herself, she was confused, agitated and was "glassy eyed", she had pulled out her PICC line and the PICC line was tied around her ankles. The daughter cleaned her up, put clothes on her and called an ambulance. She gave a note to the ambulance drivers with her diagnoses written on it. Her osteomyelitis, had not been treated in the first 3 days that she was here, since there was no PICC line found at admission to sus[facility] ct any superintendent container terminal iv treatment was underway. Start was then restarted on iv PCN as per the discharge summary dose, and a PICC line was inserted. 4) Altered mental status She was initially obtunded from DKA. The toxicology showed no evidence of codeine in her system therefore the codeine overdose was ruled out. Despite this, her mental status was altered throughout this entire hospital stay: she would only answer with one-word sentences, was lethargic and disoriented to person place and time. She started to use her right leg by grabbing the external rods and using it like a baseball bat to hit the staff. She needed soft restraints and one-to-one observation in because she tried climbing out of bed. The Hospitalist called psychiatry at for transfer, but she was not felt to be a candidate for transfer because of her other complex medical problems. This Hospitalist later called for transfer to higher level of care on a hospitalist service with need for neurology consultation, psychiatry consultation, and infectious disease consultation and she was kindly accepted in transfer to [facility], and was transferred there by ambulance. 5) Campylobacter diarrhea Early in her hospital course, she had diarrhea. This was sent for C. difficile which was negative but bacterial cultures were positive for Campylobacter. Her diarrhea waned after several days. 6) Hx of ankle surgery described in $#3 7) Noncompliance with safety precautions As described in #3 8) Anemia She was kept on oral iron replacement 9) Hypothyroidism She was kept on her home thyroid dose 10) Chronic pain Her narcotics are kept to a minimum because of her lethargy, she had adequate pain control however 11) Opiate dependance She was treated with low doses of narcotics because of lethargy 12) Depression She was kept on her antidepressants 13) Tobacco use She was on a nicotine patch while here, on a tapering down schedule 14) Alcohol use No signs of alcohol withdrawal were noted during this admission - ALLERGIES Allergies/Adverse Reactions: Allergies Allergy/AdvReac Type Severity Reaction Status Date / Time carisoprodol [From Soma] Allergy Unknown Verified 10/14/19 07:53 divalproex sodium Allergy Rash Verified 10/14/19 07:53 [From Depakote] gabapentin [From Neurontin] Allergy Edema Verified 10/14/19 07:53 lidocaine Allergy Unknown Verified 10/14/19 07:53 nitrofurantoin Allergy Rash Verified 10/14/19 07:53 macrocrystalline * [From Macrodantin] nortriptyline Allergy Unknown Verified 10/14/19 07:53 ondansetron [From Zofran] Allergy Hives Verified 10/14/19 07:53 ondansetron HCl * Allergy Hives Verified 10/14/19 07:53 [From Zofran (as hydrochloride)] pregabalin [From Lyrica] Allergy Headache Verified 10/14/19 07:53 - MEDICATIONS Home Medications: Ambulatory Orders Medication Instructions Recorded Confirmed Insulin Lispro [Humalog] 20 - 25 units SQ DAILY 10/30/15 09/15/19 Baclofen 10 mg PO QID PRN 06/03/16 10/14/19 Escitalopram Oxalate [Lexapro] 40 mg PO DAILY 05/22/18 10/14/19 Simvastatin 20 mg PO QPM 05/22/18 10/14/19 Butalb/Acetam/Caff 50/325/40 1 tab PO Q4H PRN 01/22/19 10/14/19 [Fioricet] Oxycodone HCl 10 mg PO QID 01/22/19 10/14/19 Prazosin HCl 5 mg PO QPM 01/23/19 10/14/19 Trazodone HCl 200 mg PO QPM 01/23/19 10/14/19 Dextroamphetamine/Amphetamine 20 mg PO DAILY 09/15/19 10/14/19 [Adderall Xr 20 mg Capsule] Dicyclomine HCl 20 mg PO QID PRN 09/15/19 10/14/19 Duloxetine HCl [Cymbalta] 120 mg PO DAILY 09/15/19 10/14/19 Levothyroxine [Synthroid] 112 mcg PO QDAC 09/15/19 10/14/19 Oxybutynin [Ditropan] 5 mg PO DAILY 09/15/19 10/14/19 Pantoprazole Sodium [Protonix] 20 mg PO QDAC 09/15/19 10/14/19 clonazePAM [Clonazepam] 1 mg PO TID PRN 09/15/19 10/14/19 Aspirin [Suri] 325 mg PO BIDWM #60 tablet 09/18/19 10/14/19 Cyanocobalamin (Vitamin B-12) 1,000 mcg PO DAILY #30 tablet.er 09/18/19 [Vitamin B-12] Ferrous Gluconate 240 mg PO DAILY #30 tablet 09/18/19 Nicotine 14 mg Patch [Nicoderm] 1 patch TOP DAILY #14 patch 09/18/19 Metoclopramide HCl 10 mg PO ACHS 10/14/19 10/14/19 Spironolactone 100 mg PO DAILY 10/14/19 10/14/19 - PHYSICAL EXAM AT DISCHARGE General Appearance: positive: No acute distress, Lethargic Eyes Bilateral: positive: PERRL ENT: positive: ENT inspection nml Neck: positive: Nml inspection Respiratory: positive: No respiratory distress Cardiovascular: positive: Regular rate & rhythm Abdomen: positive: Non-tender, No distention Skin: positive: Pallor Extremities: positive: Other (R lower foot with 3 external rods, wrapped in 2 pillows and tape) Neurologic/Psychiatric: positive: Disoriented to person, Disoriented to place, Disoriented to time, Weakness, Other (Moving all extremities) - LABS Result Diagrams: 10/19/19 05:00 10/22/19 17:18 - DIAGNOSTIC IMAGING Diagnostic Imaging Results: Final report reviewed - FOLLOW UP Follow Up: This will be determine after her hospitalization at [facility] - TIME SPENT Time Spent in Discharge (Minutes): 80
--- NOTE | 2019-11-01 12:52 | DISCHARGE SUMMARY ---
Physician: Saira Bird MD DATE OF ADMISSION: 10/14/2019 DATE OF DISCHARGE: 10/25/2019 ADDENDUM to Discharge Summary: In the Hospital Course under #4 Altered Mental Status, there is a correction: She had no wrist restraints ordered. In the Hospital Course under #2 Osteomyelitis, there is a correction: She did not have a new PICC line placed during this admission. TD: 11/01/2019 12:22 [email or web address]
--- NOTE | 2019-11-08 20:49 | DISCHARGE SUMMARY ---
Physician: Shyla Rust MD DATE OF ADMISSION: 10/14/2019 DATE OF DISCHARGE: 10/25/2019 ADDENDUM In my progress notes dated 10/18/2019 through 10/23/2019, I am noting that the patient has a PICC manuel e in place and nursing notes document PICC line care being done. In retrospect, the patient had a mi dline IV and no PICC line. The medical records should be amended to reflect that on those days in qu estion. TD: 11/08/2019 16:04
== END 2019-10-25 17:13 | disposition short-term general hospital (02) | DRG 637 ==
LOC: EDUNIT# → ED 07:39 → ICU 12:36 → MS3 10-18 17:06
PROVIDERS: ADMIT Internal Medicine; ATTEND Internal Medicine
DX: E10.10 Type 1 diabetes mellitus with ketoacidosis without coma (principal); G93.41 Metabolic encephalopathy; F11.29 Opioid dependence with unspecified opioid-induced disorder; A04.5 Campylobacter enteritis; S82.201E Unspecified fracture of shaft of right tibia, subsequent encounter for open fracture type I or II with routine healing; M54.9 Dorsalgia, unspecified; F11.20 Opioid dependence, uncomplicated; M19.90 Unspecified osteoarthritis, unspecified site; J44.9 Chronic obstructive pulmonary disease, unspecified; M86.671 Other chronic osteomyelitis, right ankle and foot; D59.9 Acquired hemolytic anemia, unspecified; F31.9 Bipolar disorder, unspecified; F41.9 Anxiety disorder, unspecified; Z96.41 Presence of insulin pump (external) (internal); Z98.84 Bariatric surgery status; E10.649 Type 1 diabetes mellitus with hypoglycemia without coma; E10.69 Type 1 diabetes mellitus with other specified complication; E10.42 Type 1 diabetes mellitus with diabetic polyneuropathy; S82.851E Displaced trimalleolar fracture of right lower leg, subsequent encounter for open fracture type I or II with routine healing; D50.9 Iron deficiency anemia, unspecified; G89.29 Other chronic pain; M79.7 Fibromyalgia; E03.9 Hypothyroidism, unspecified; F32.9 Major depressive disorder, single episode, unspecified; F17.200 Nicotine dependence, unspecified, uncomplicated; R41.3 Other amnesia; Z66 Do not resuscitate; Z79.4 Long term (current) use of insulin; Z86.69 Personal history of other diseases of the nervous system and sense organs; Z91.19 Patient's noncompliance with other medical treatment and regimen; Z79.899 Other long term (current) drug therapy; Z79.82 Long term (current) use of aspirin; Z91.81 History of falling; Z76.5 Malingerer [conscious simulation]
CPT/HCPCS: 36415; 71045; 73600; 80048; 80053; 81003; 81025; 82009; 82040; 82140; 82310; 82607; 82728; 82803; 82947; 83036; 83540; 83605; 83615; 83690; 83735; 84100; 84132; 84466; 85025; 85045; 87045; 87046; 87150; 93005; 97162; 97530; 99285; A9270; J1650; J1815; J2060; J3411; J3490; 80306; 80307; 80320; 80329; 81001; 87086

== ENCOUNTER 2019-10-25 17:15 | Outpatient (CLI) | payer MEDICARE | END 2019-10-25 23:59 | disposition short-term general hospital (02) | LOC: EMS 17:15 | PROVIDERS: ATTEND Surgery | DX: E10.69 Type 1 diabetes mellitus with other specified complication (principal); M86.9 Osteomyelitis, unspecified; R41.0 Disorientation, unspecified; S82.899D Other fracture of unspecified lower leg, subsequent encounter for closed fracture with routine healing | CPT/HCPCS: A0425; A0428 ==

== ENCOUNTER 2020-03-22 20:31 | Outpatient (CLI) | payer MEDICARE, MEDICAID | END 2020-03-22 20:32 | disposition critical access hospital (66) | LOC: EMS 20:31 | PROVIDERS: ATTEND Surgery | DX: R26.81 Unsteadiness on feet (principal); R41.82 Altered mental status, unspecified; W19.XXXA Unspecified fall, initial encounter; Z91.81 History of falling; Y92.009 Unspecified place in unspecified non-institutional (private) residence as the place of occurrence of the external cause | CPT/HCPCS: A0425; A0427 ==

== ENCOUNTER 2020-03-22 20:51 | Inpatient (IN) | payer MEDICARE, MEDICAID ==
[2020-03-22] MEDS ORDERED: SODIUM CHLORIDE 0.9% 1,000 ML IV ONE ×3 (21:02→23:38)
[2020-03-22] MEDS ORDERED: IOVERSOL 320 100 ML VIAL IVP ONE ×2 (21:08→21:57)
[2020-03-22 21:12] LABS: MUDS CUTOFF CONCENTRATIONS CUTOFF CONC BELOW:
[2020-03-22 21:15] LABS: BILIRUBIN,URINE NEGATIVE (NEGATIVE); GLUCOSE, URINE (UA) >=1000 mg/dL (NEGATIVE); KETONES,URINE (UA) NEGATIVE (NEGATIVE); LEUKOCYTE ESTERASE, URINE NEGATIVE (NEGATIVE); NITRITE,URINE NEGATIVE (NEGATIVE); OCCULT BLOOD,URINE NEGATIVE (NEGATIVE); PH,URINE 5.5 PH (5.0-7.5); PROTEIN,URINE NEGATIVE (NEGATIVE); UROBILINOGEN,URINE 0.2 (NORMAL) E.U./dL (NORMAL)
--- NOTE | 2020-03-22 21:15 | ED Physician Documentation ---
History of Present Illness - Stated complaint Stated Complaint: AMS, BROKEN INSULIN PUMP - Chief complaint Chief Complaint: Back Pain - History obtained from History obtained from: Patient, EMS - History of Present Illness Timing: Today Pain level max: 7 Pain level now: 6 - Additonal information Additional information: 44-year-old female brought in from home today by EMS. Her son reports that she has fallen at least 10 times today and was unable to get up. She lost her insulin pump somewhere. They do not know where it is. Her blood sugar was reading high on the glucometer with EMS. Her son reports that she has been confused today as well. No fevers. No vomiting. She is complaining of abdominal pain. She also complains of low back pain. She was placed on a c- collar and backboarded by EMS. Unknown if she struck her head or not Review of Systems Unable to obtain: AMS PD PAST MEDICAL HISTORY - Past Medical History Cardiovascular: High cholesterol, Murmur Respiratory: COPD, Pneumonia, Shortness of breath Neuro: Headaches, Migraines, Peripheral neuropathy, Seizure disorder, Other Endocrine/Autoimmune: Type 2 diabetes GI: GERD, GI bleed, Ulcers, Other SR ACCOUNT EXECUTIVE: Other : Kidney stones, Other HEENT: Chronic vision loss, Chronic sinusitis Psych: Other Musculoskeletal: Osteoarthritis, Fibromyalgia, Fatigue, Chronic back pain Derm: None - Past Surgical History Past Surgical History: Yes General: Gastric surgery Ortho: Other /SR ACCOUNT EXECUTIVE: section, Endometrial ablation, Tubal ligation - Present Medications Home Medications: Ambulatory Orders Medication Instructions Recorded Confirmed Insulin Lispro [Humalog] 20 - 25 units SQ DAILY 10/30/15 09/15/19 Baclofen 10 mg PO QID PRN 06/03/16 10/14/19 Escitalopram Oxalate [Lexapro] 40 mg PO DAILY 05/22/18 10/14/19 Simvastatin 20 mg PO QPM 05/22/18 10/14/19 Butalb/Acetam/Caff 50/325/40 1 tab PO Q4H PRN 01/22/19 10/14/19 [Fioricet] Oxycodone HCl 10 mg PO QID 01/22/19 10/14/19 Prazosin HCl 5 mg PO QPM 01/23/19 10/14/19 Trazodone HCl 200 mg PO QPM 01/23/19 10/14/19 Dextroamphetamine/Amphetamine 20 mg PO DAILY 09/15/19 10/14/19 [Adderall Xr 20 mg Capsule] Dicyclomine HCl 20 mg PO QID PRN 09/15/19 10/14/19 Duloxetine HCl [Cymbalta] 120 mg PO DAILY 09/15/19 10/14/19 Levothyroxine [Synthroid] 112 mcg PO QDAC 09/15/19 10/14/19 Oxybutynin [Ditropan] 5 mg PO DAILY 09/15/19 10/14/19 Pantoprazole Sodium [Protonix] 20 mg PO QDAC 09/15/19 10/14/19 clonazePAM [Clonazepam] 1 mg PO TID PRN 09/15/19 10/14/19 Aspirin [Suri] 325 mg PO BIDWM #60 tablet 09/18/19 10/14/19 Cyanocobalamin (Vitamin B-12) 1,000 mcg PO DAILY #30 tablet.er 09/18/19 [Vitamin B-12] Ferrous Gluconate 240 mg PO DAILY #30 tablet 09/18/19 Nicotine 14 mg Patch [Nicoderm] 1 patch TOP DAILY #14 patch 09/18/19 Metoclopramide HCl 10 mg PO ACHS 10/14/19 10/14/19 Spironolactone 100 mg PO DAILY 10/14/19 10/14/19 - Allergies Allergies/Adverse Reactions: Allergies Allergy/AdvReac Type Severity Reaction Status Date / Time carisoprodol [From Soma] Allergy Unknown Verified 10/14/19 07:53 divalproex sodium Allergy Rash Verified 10/14/19 07:53 [From Depakote] gabapentin [From Neurontin] Allergy Edema Verified 10/14/19 07:53 lidocaine Allergy Unknown Verified 10/14/19 07:53 nitrofurantoin Allergy Rash Verified 10/14/19 07:53 macrocrystalline * [From Macrodantin] nortriptyline Allergy Unknown Verified 10/14/19 07:53 ondansetron [From Zofran] Allergy Hives Verified 10/14/19 07:53 ondansetron HCl * Allergy Hives Verified 10/14/19 07:53 [From Zofran (as hydrochloride)] pregabalin [From Lyrica] Allergy Headache Verified 10/14/19 07:53 - Social History Does the pt smoke?: Yes Smoking Status: Current every day smoker Does the pt drink ETOH?: No Does the pt have substance abuse?: No - Immunizations Immunizations are current?: Yes Immunizations: TDAP >10years/unknown - POLST Patient has POLST: No POLST Status: DNR PD ED PE NORMAL - Vitals Vital signs reviewed: Yes - General General: No acute distress, Well developed/nourished, Other (Alert, oriented to person and place, not to time) - HEENT HEENT: Atraumatic, PERRL, Moist mucous membranes, Pharynx benign - Neck Neck: Supple, no meningeal sign, No bony TTP - Cardiac Cardiac: RRR - Respiratory Respiratory: No respiratory distress, Clear bilaterally - Abdomen Abdomen: Soft, Non distended, Other (Diffusely tender to palpation without peritoneal signs. Firm lower abdomen) - Back Back: No CVA TTP - Derm Derm: Warm and dry - Extremities Extremities: No calf tenderness / cord - Neuro Neuro: No motor deficit, No sensory deficit, Normal speech, Other (Alert, oriented to person and place, not to time) Results - Vitals Vitals: Vital Signs - 24 hr 03/22/20 20:50 Temperature 36.9 C Heart Rate 100 Respiratory 24 Rate Blood Pressure 141/82 H O2 Saturation 99 Oxygen O2 Source Room air - Labs Labs: Laboratory Tests 03/22/20 03/22/20 03/22/20 21:07 21:12 21:12 WBC 8.4 RBC 3.81 L Hgb 9.8 L Hct 32.6 L MCV 85.6 MCH 25.7 L MCHC 30.1 L RDW 16.1 H Plt Count 279 MPV 10.2 Neut # (Auto) 6.6 Lymph # (Auto) 0.7 L [place] # (Auto) 0.6 Eos # (Auto) 0.3 Baso # (Auto) 0.1 Absolute Nucleated RBC 0.00 Nucleated RBC % 0.0 VBG pH VBG pCO2 VBG pO2 VBG HCO3 VBG Total CO2 VBG O2 Saturation VBG Base Excess Sodium 131 L Potassium 4.2 Chloride 97 L Carbon Dioxide 22 Anion Gap 12.0 BUN 16 Creatinine 1.1 H Estimated GFR (MDRD) 53 L Glucose 877 H* Calcium 8.3 L Total Bilirubin 0.9 AST 16 ALT 18 Alkaline Phosphatase 123 H Total Protein 6.8 Albumin 3.8 Globulin 3.0 Albumin/Globulin Ratio 1.3 Lipase 25 TSH Urine Color YELLOW Urine Clarity CLEAR Urine pH 5.5 Ur Specific [place] 1.010 Urine Protein NEGATIVE Urine Glucose (UA) >=1000 H Urine Ketones NEGATIVE Urine Occult Blood NEGATIVE Urine Nitrite NEGATIVE Urine Bilirubin NEGATIVE Urine Urobilinogen 0.2 (NORMAL) Ur Leukocyte Esterase NEGATIVE Ur Microscopic Review NOT INDICATED Urine Culture Comments NOT INDICATED Salicylates < 6.0 Urine Opiates Screen NEGATIVE Ur Oxycodone Screen NEGATIVE Urine Methadone Screen NEGATIVE Ur Propoxyphene Screen NEGATIVE Acetaminophen < 10 L Ur Barbiturates Screen POSITIVE H Ur Tricyclics Screen NEGATIVE Ur Phencyclidine Scrn NEGATIVE Ur Amphetamine Screen NEGATIVE U Methamphetamines Scrn NEGATIVE U Benzodiazepines Scrn NEGATIVE Urine Cocaine Screen NEGATIVE U Cannabinoids Screen NEGATIVE Ethyl Alcohol < 5.0 Serum Ketones NEGATIVE 03/22/20 03/22/20 21:12 21:12 WBC RBC Hgb Hct MCV MCH MCHC RDW Plt Count MPV Neut # (Auto) Lymph # (Auto) [place] # (Auto) Eos # (Auto) Baso # (Auto) Absolute Nucleated RBC Nucleated RBC % VBG pH 7.346 VBG pCO2 33.5 L VBG pO2 29.8 VBG HCO3 17.9 L VBG Total CO2 18.9 L VBG O2 Saturation 55.9 L VBG Base Excess -6.9 L Sodium Potassium Chloride Carbon Dioxide Anion Gap BUN Creatinine Estimated GFR (MDRD) Glucose Calcium Total Bilirubin AST ALT Alkaline Phosphatase Total Protein Albumin Globulin Albumin/Globulin Ratio Lipase TSH 3.44 Urine Color Urine Clarity Urine pH Ur Specific [place] Urine Protein Urine Glucose (UA) Urine Ketones Urine Occult Blood Urine Nitrite Urine Bilirubin Urine Urobilinogen Ur Leukocyte Esterase Ur Microscopic Review Urine Culture Comments Salicylates Urine Opiates Screen Ur Oxycodone Screen Urine Methadone Screen Ur Propoxyphene Screen Acetaminophen Ur Barbiturates Screen Ur Tricyclics Screen Ur Phencyclidine Scrn Ur Amphetamine Screen U Methamphetamines Scrn U Benzodiazepines Scrn Urine Cocaine Screen U Cannabinoids Screen Ethyl Alcohol Serum Ketones - Rads (name of study) Head CT Radiology: Prelim report reviewed, EMP read contemporaneously, See rad report (No acute intracranial abnormality) Cervical spine CT Radiology: Prelim report reviewed, EMP read contemporaneously, See rad report (Normal) CT abdomen pelvis Radiology: Prelim report reviewed, EMP read contemporaneously, See rad report (No acute abnormality other than a distended urinary bladder) PD MEDICAL DECISION MAKING - ED course Complexity details: reviewed results, re-evaluated patient, considered differential, d/w patient, d/w payroll consultant ED course: 44-year-old female with significant hyperglycemia, base excess of -7 on her venous blood gas. Negative ketones. Given IV fluids, given insulin. Mental status is slowly improving. Valdez catheter placed and approximately 2 L of urine drained. She is still confused, will need observation overnight to ensure that her mental status clears, her blood glucose becomes better controlled and to determine if she will need an additional insulin pump or if the family can locate this. Discussed the case with Dr. Van who accepts This document was made in part using voice recognition software. While efforts are made to proofread this document, sound alike and grammatical errors may occur. Departure - Departure Disposition: ED Place in Observation Clinical Impression: Hyperglycemia, Urinary retention Altered mental status Qualifiers: Altered mental status type: unspecified Qualified Code(s): R41.82 - Altered mental status, unspecified Condition: Stable
[2020-03-22 21:18] LABS: BASOPHILS # (AUTO) 0.1 10^3/uL (0.0-0.1); BASOPHILS % (AUTO) 0.6 %; EOSINOPHILS # (AUTO) 0.3 10^3/uL (0.0-0.7); EOSINOPHILS % (AUTO) 4.1 %; HGB - HEMOGLOBIN 9.8 g/dL (12.0-16.0); LYMPHOCYTES # (AUTO) 0.7 10^3/uL (1.5-3.5); LYMPHOCYTES % (AUTO) 8.6 %; MEAN CORPUSCULAR HEMOGLOBIN 25.7 pg (27.0-31.0); MEAN CORPUSCULAR HGB CONC 30.1 g/dL (32.0-36.0); MEAN CORPUSCULAR VOLUME 85.6 fL (81.0-99.0); MEAN PLATELET VOLUME 10.2 fL (7.9-10.8); MONOCYTES # (AUTO) 0.6 10^3/uL (0.0-1.0); MONOCYTES % (AUTO) 7.3 %; NEUTROPHILS # (AUTO) 6.6 10^3/uL (1.5-6.6); NEUTROPHILS % (AUTO) 78.9 %; PLT - PLATELET COUNT 279 10^3/uL (130-450); RED BLOOD COUNT 3.81 10^6/uL (4.20-5.40); RED CELL DISTRIBUTION WIDTH 16.1 % (12.0-15.0); WHITE BLOOD COUNT 8.4 x10^3/uL (4.8-10.8)
[2020-03-22 21:19] LABS: CLARITY,URINE CLEAR (CLEAR)
[2020-03-22 21:22] LABS: VBG BASE EXCESS -6.9 mmol/L (-2 - +2); VBG PCO2 33.5 mmHg (41-51); VBG PH 7.346 (7.31-7.41); VBG PO2 29.8 mmHg (25-47); VBG TOTAL CO2 18.9 mmol/L (24-29)
[2020-03-22 21:30] LABS: KETONES, SERUM (ACETEST) NEGATIVE (NEGATIVE)
[2020-03-22 21:34] LABS: AMPHETAMINE SCREEN,URINE NEGATIVE (NEGATIVE); BENZODIAZEPINES SCREEN, URINE NEGATIVE (NEGATIVE); COCAINE SCREEN URINE NEGATIVE (NEGATIVE); METHADONE SCREEN, URINE NEGATIVE (NEGATIVE); METHAMPHETAMINES SCREEN, URINE NEGATIVE (NEGATIVE); OPIATE SCREEN, URINE NEGATIVE (NEGATIVE); OXYCODONE SCREEN, URINE NEGATIVE (NEGATIVE); PROPOXYPHENE SCREEN, URINE NEGATIVE (NEGATIVE); TRICYCLIC ANTIDEPRESSANT,URINE NEGATIVE (NEGATIVE)
[2020-03-22 21:37] LABS: ACETAMINOPHEN < 10 ug/mL (10-30); ALBUMIN 3.8 g/dL (3.2-5.5); ALBUMIN/GLOBULIN RATIO 1.3 (1.0-2.2); ALKALINE PHOSPHATASE 123 IU/L (42-121); ALT ALANINE AMINOTRANSFERASE 18 IU/L (10-60); AST ASPARTATE AMINOTRANSFERASE 16 IU/L (10-42); BILIRUBIN,TOTAL 0.9 mg/dL (0.2-1.0); BUN - BLOOD UREA NITROGEN 16 mg/dL (6-20); CALCIUM 8.3 mg/dL (8.5-10.3); CARBON DIOXIDE - CO2 22 mmol/L (21-32); CHLORIDE 97 mmol/L (101-111); CREATININE 1.1 mg/dL (0.4-1.0); LIPASE 25 U/L (22-51); SALICYLATE < 6.0 mg/dL; SODIUM 131 mmol/L (135-145); TOTAL PROTEIN 6.8 g/dL (6.7-8.2)
[2020-03-22 21:39] LABS: GLUCOSE 877 mg/dL (70-100)
--- NOTE | 2020-03-22 22:14 | CT Report ---
Reason: fall, aloc Procedure Date: 03/22/2020 Accession Number: [id number] / [id number] Procedure: CT - HEAD WO CPT Code: Final Report FULL RESULT: EXAM: CT HEAD EXAM DATE: 03/22/2020 09:23 PM. CLINICAL HISTORY: Found down. Altered level of consciousness. COMPARISON: HEAD W/O 12/21/2018 1:41 PM. TECHNIQUE: Multiaxial CT images were obtained from the foramen magnum to the vertex. Reformats: Sagittal and coronal. IV contrast: None. In accordance with CT protocol optimization, one or more of the following dose reduction techniques were utilized for this exam: automated exposure control, adjustment of mA and/or KV based on patient size, or use of iterative reconstructive technique. FINDINGS: Parenchyma: No intraparenchymal hemorrhage. No evidence of mass, midline shift, or CT findings of infarction. Wade-white differentiation is distinct. Extraaxial Spaces: Normal for age. No subdural or epidural collections identified. Ventricles: Normal in size and position. Sinuses and Orbits: Imaged paranasal sinuses, orbits, and mastoids show no significant abnormality. Bones: No evidence of fracture or calvarial defect. Other: None. IMPRESSION: Normal head CT. RADIA
--- NOTE | 2020-03-22 22:27 | CT Report ---
Reason: abd pain, diffuse Procedure Date: 03/22/2020 Accession Number: [id number] / [id number] Procedure: CT - Abdomen/Pelvis W CPT Code: Final Report FULL RESULT: EXAM: CT ABDOMEN AND PELVIS EXAM DATE: 03/22/2020 09:30 PM. CLINICAL HISTORY: Abdominal pain, diffuse. COMPARISONS: CT ABDOMEN/PELVIS W/ 05/22/2018 3:07 PM. TECHNIQUE: Routine helical CT imaging was performed through the abdomen and pelvis. IV contrast: 100 mL OPTIRAY 320. Enteric contrast: No. Reconstructions: Coronal and sagittal. In accordance with CT protocol optimization, one or more of the following dose reduction techniques were utilized for this exam: automated exposure control, adjustment of mA and/or KV based on patient size, or use of iterative reconstructive technique. FINDINGS: Lung Bases: Unremarkable. Liver: Normal. No masses. Gallbladder/Bile Ducts: Unremarkable. Spleen: Normal. Pancreas: Severely atrophic pancreas, unchanged. Adrenal Glands: Normal. Kidneys: Mild fullness of bilateral renal pelves in the setting of a full urinary bladder. No caliectasis/hydronephrosis or ureteral calculi. Kidneys otherwise unremarkable. 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 No bowel obstruction or significant bowel wall thickening. No free fluid, free air or adenopathy. No masses or acute inflammatory process. Appendix not visualized. Pelvic Organs: Full bladder. No bladder wall thickening or calculi. Possible dominant follicle in right ovary. Uterus and adnexa otherwise unremarkable. Vasculature: No aneurysms or other significant abnormality. Bones: Stable osseous structures. No acute bony abnormality. Other: Multiple focal densities in the anterior abdominal wall, likely related to recent subcutaneous injections. Tiny fat-containing umbilical hernia. IMPRESSION: 1. No acute abnormality in the abdomen or pelvis to account for pain. 2. Full urinary bladder. No wall thickening or adjacent inflammation. 3. Stable postsurgical changes of gastric bypass. 4. Severely atrophic pancreas, unchanged. RADIA
[2020-03-22] MEDS ORDERED: INSULIN REGULAR HUMAN 100 UNIT/1 ML 10 ML MDV SUBQ STA (22:28)
[2020-03-22] MEDS ORDERED: INSULIN REGULAR HUMAN 100 UNIT/1 ML 10 ML MDV IVP STA (22:28)
--- NOTE | 2020-03-22 22:37 | CT Report ---
Reason: fall, aloc Procedure Date: 03/22/2020 Accession Number: [id number] / [id number] Procedure: CT - CERVICAL SPINE WO CPT Code: Final Report FULL RESULT: EXAM: CT CERVICAL SPINE WITHOUT CONTRAST DATE: 03/22/2020 09:54 PM. HISTORY: Found down. COMPARISONS: HEAD W/O 12/21/2018 1:41 PM CERVICAL SPINE W/O 07/09/2017 12:45 PM. TECHNIQUE: Thin-section axial images were acquired of the cervical spine without contrast. Post-processing: Coronal and sagittal reformats. Other: None. In accordance with CT protocol optimization, one or more of the following dose reduction techniques were utilized for this exam: automated exposure control, adjustment of mA and/or KV based on patient size, or use of iterative reconstructive technique. FINDINGS: Alignment: No scoliosis or spondylolisthesis. Bones: No fracture or bone lesion. Interspace Levels/Facets: C1-C2: Unremarkable. C2-C3: Unremarkable. C3-C4: Unremarkable. C4-C5: Unremarkable. C5-C6: Unremarkable. C6-C7: Unremarkable. C7-T1: Unremarkable. Musculature: Normal. No fatty atrophy. Other: The paravertebral and prevertebral soft tissues are unremarkable. The lung apices are clear. IMPRESSION: Normal cervical spine CT. RADIA
[2020-03-22] MEDS ORDERED: SODIUM CHLORIDE FLUSH 0.9% 10 ML SYRINGE IVP PRN (22:43)
[2020-03-22] MEDS ORDERED: SODIUM CHLORIDE 0.9% 1,000 ML IV SCH (23:00)
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
[2020-03-22 23:15] LABS: HEMOGLOBIN A1C 0.7 g/dL; HEMOGLOBIN A1C % 8.6 % (4.6-6.2)
[2020-03-22 23:43] LABS: CALCIUM 7.7 mg/dL (8.5-10.3); MAGNESIUM 1.8 mg/dL (1.7-2.8)
[2020-03-23] MEDS ORDERED: METOCLOPRAMIDE 10 MG/2 ML VIAL IVP PRN (00:11)
[2020-03-23] MEDS ORDERED: SODIUM CHLORIDE 0.9% 100ML 100 ML IV ONE (00:11)
[2020-03-23] MEDS ORDERED: PROMETHAZINE INJ 25 MG in SODIUM CHLORIDE 0.9% 50 ML IV PRN (00:12)
[2020-03-23] MEDS ORDERED: INSULIN REGULAR HUMAN 300 UNIT/3 ML VIAL ONE (00:17)
[2020-03-23] MEDS ORDERED: SODIUM CHLORIDE 0.9% MINIBAG 100 ML IV ONE (00:18)
[2020-03-23] MEDS: INSULIN REGULAR HUMAN 100 UNIT in SODIUM CHLORIDE 0.9% 100ML 99 ML IV ONE ×2 (00:38→01:07)
[2020-03-23] MEDS: SODIUM CHLORIDE FLUSH 0.9% 10 ML SYRINGE IVP SCH ×3 (00:41→20:19)
[2020-03-23 00:43] LABS: CALCIUM 7.7 mg/dL (8.5-10.3); CREATININE 0.9 mg/dL (0.4-1.0); MAGNESIUM 1.7 mg/dL (1.7-2.8)
[2020-03-23] MEDS ORDERED: MAGNESIUM SULFATE 2 GRAM 2 GM/50 ML BAG IV ONE (00:46)
[2020-03-23] MEDS ORDERED: POTASSIUM CHLORIDE 20 MEQ TABLET PO ONE ×2 (00:49→04:10)
[2020-03-23] MEDS: oxyCODONE 5 MG TABLET PO PRN ×4 (01:09→19:07)
[2020-03-23] MEDS ORDERED: ethyl alcohoL 62% SWAB AMPULE NAS ONE (02:40)
[2020-03-23] MEDS: DEXTROSE 5%-0.45% NACL 1,000 ML IV SCH ×2 (02:47→09:14)
[2020-03-23] MEDS: ethyl alcohoL 62% SWAB AMPULE NAS SCH ×2 (02:51→20:15)
[2020-03-23 03:06] LABS: CALCIUM 8.1 mg/dL (8.5-10.3); CREATININE 0.7 mg/dL (0.4-1.0)
[2020-03-23] MEDS ORDERED: DEXTROSE 50% ABBOJECT 25 GM/50 ML SYRINGE IVP ONE (03:08)
[2020-03-23 04:08] LABS: CREATININE 0.6 mg/dL (0.4-1.0); MAGNESIUM 2.5 mg/dL (1.7-2.8)
[2020-03-23 05:13] LABS: BASOPHILS % (AUTO) 0.5 %; EOSINOPHILS # (AUTO) 0.2 10^3/uL (0.0-0.7); EOSINOPHILS % (AUTO) 2.6 %; HGB - HEMOGLOBIN 9.2 g/dL (12.0-16.0); LYMPHOCYTES # (AUTO) 2.3 10^3/uL (1.5-3.5); MEAN CORPUSCULAR HGB CONC 30.1 g/dL (32.0-36.0); MEAN CORPUSCULAR VOLUME 83.2 fL (81.0-99.0); MEAN PLATELET VOLUME 9.5 fL (7.9-10.8); MONOCYTES # (AUTO) 0.9 10^3/uL (0.0-1.0); MONOCYTES % (AUTO) 10.7 %; NEUTROPHILS % (AUTO) 58.8 %; PLT - PLATELET COUNT 281 10^3/uL (130-450); RED BLOOD COUNT 3.68 10^6/uL (4.20-5.40); RED CELL DISTRIBUTION WIDTH 15.9 % (12.0-15.0); WHITE BLOOD COUNT 8.5 x10^3/uL (4.8-10.8)
[2020-03-23] MEDS ORDERED: PANTOPRAZOLE 40 MG VIAL IVP SCH (07:00)
[2020-03-23 07:15] LABS: CALCIUM 8.1 mg/dL (8.5-10.3); CREATININE 0.6 mg/dL (0.4-1.0)
--- NOTE | 2020-03-23 07:23 | PHARMACY PROGRESS NOTE ---
- Best Possible Medication History Admit Date and Time: 03/22/20 2241 Processed by: Pharmacy Medication History completed: Yes Secondary Source(s): Pharmacy records, Insurance records, Previous admit records As the person ultimately responsible for medication therapy, providers are able to order a medication from an existing home medication list in [facility] via the "Reconcile Routine" prior to Confirmation of that medication by software support analyst. Such practice is discouraged except when the physician, in their clinical judgment, deems that a medical need exists for a medication without regard to previous use.
[2020-03-23] MEDS: BUTALB/ACETAM/CAFF 50/325/40MG TABLET PO PRN ×3 (08:23→19:07)
[2020-03-23] MEDS ORDERED: INSULIN GLARGINE 300 UNIT/3 ML PEN SUBQ SCH (09:00)
[2020-03-23] MEDS: HEPARIN 5,000 UNIT/ML VIAL SUBQ SCH ×2 (09:14→20:16)
[2020-03-23] MEDS: ACETAMINOPHEN 325 MG TABLET PO PRN ×2 (10:55→17:16)
[2020-03-23] MEDS: SENNA 8.6 MG TABLET PO SCH (11:07)
[2020-03-23] MEDS: DOCUSATE SODIUM 250 MG CAPSULE PO SCH (11:07)
--- NOTE | 2020-03-23 11:10 | PROVIDER PROGRESS NOTE ---
Subjective - Prog Note Date Prog Note Date: 03/23/20 - Subjective Subjective: She reports feeling well today. She would like to go home. She states that she fell yesterday and that is why she is here in the hospital. She reports her blood glucose has been well controlled at home since being discharged from rehab about 1 week ago. She does complain of some right upper quadrant abdominal pain is going on for the past few days. Occasional nausea but no vomiting. She reports a history of gallstones. She once again repeats that she would like to go home. She is off of insulin drip but she was hypoglycemic overnight. She is now tolerating a diet. Current Medications - Current Medications Current Medications: Active Medications Acetaminophen (Tylenol) 650 mg PO Q6HR PRN PRN Reason: Pain or Fever > 38C (100.4F) Last Admin: 03/23/20 10:55 Dose: 650 mg Acetaminophen/Butalbital/Caffeine (Fioricet) 1 tab PO Q4HR PRN PRN Reason: HEADACHE Last Admin: 03/23/20 08:23 Dose: 1 tab Alcohol (Nozin) 1 amp SHAYLEE BID [facility] Last Admin: 03/23/20 02:51 Dose: 1 amp Docusate Sodium (Colace 250mg Capsule) 250 - 500 mg PO DAILY [facility] Last Admin: 03/23/20 11:07 Dose: 250 mg Heparin Sodium (Porcine) () 5,000 unit SUBQ BID [facility] Last Admin: 03/23/20 09:14 Dose: 5,000 unit Insulin Human Regular 100 unit (/ Sodium Chloride) 100 mls @ 1 mls/hr IV .Q72H ONE; Protocol Stop: 03/25/20 23:50 Last Titration: 03/23/20 09:29 Dose: Infused Promethazine HCl 25 mg/ Sodium (Chloride) 51 mls @ 100 mls/hr IV Q6H PRN PRN Reason: Nausea / Vomiting Dextrose/Sodium Chloride (D5.45ns) 1,000 mls @ 125 mls/hr IV .Q8H [facility] Last Admin: 03/23/20 09:14 Dose: Not Given Insulin Aspart (Novolog) 4 unit SUBQ TIDWM [facility] Insulin Glargine (Lantus Solostar) 10 unit SUBQ DAILY [facility] Last Admin: 03/23/20 09:23 Dose: 10 unit Metoclopramide HCl (Reglan Inj) 5 mg IVP Q6HR PRN PRN Reason: Nausea / Vomiting Last Admin: 03/23/20 02:50 Dose: 5 mg Oxycodone HCl (Roxicodone) 5 mg PO Q4HR PRN PRN Reason: PAIN Last Admin: 03/23/20 09:41 Dose: 5 mg Pantoprazole Sodium (Protonix) 40 mg IVP QDAC [facility] Last Admin: 03/23/20 07:00 Dose: 40 mg Senna (Senokot) 8.6 - 17.2 mg PO DAILY [facility] Last Admin: 03/23/20 11:07 Dose: 8.6 mg Sodium Chloride (Normal Saline Flush 0.9%) 10 ml IVP 0100,0900,1700 [facility] Last Admin: 03/23/20 08:40 Dose: 10 ml Sodium Chloride (Normal Saline Flush 0.9%) 10 ml IVP PRN PRN PRN Reason: NEEDED PER PROVIDER ORDERS Last Admin: 03/23/20 08:35 Dose: 10 ml Insulin Lispro [Humalog] 20 - 25 units SQ DAILY 10/30/15 Baclofen 10 mg PO QID PRN 06/03/16 Escitalopram Oxalate [Lexapro] 40 mg PO DAILY 05/22/18 Simvastatin 20 mg PO QPM 05/22/18 Butalb/Acetam/Caff 50/325/40 [Fioricet] 1 tab PO Q4H PRN 01/22/19 Prazosin HCl 5 mg PO QPM 01/23/19 Trazodone HCl 200 mg PO QPM 01/23/19 Duloxetine HCl [Cymbalta] 120 mg PO DAILY 09/15/19 Levothyroxine [Synthroid] 112 mcg PO QDAC 09/15/19 Pantoprazole Sodium [Protonix] 20 mg PO QDAC 09/15/19 clonazePAM [Clonazepam] 1 mg PO TID PRN 09/15/19 Spironolactone 100 mg PO DAILY 10/14/19 Mirabegron [Myrbetriq] 50 mg PO DAILY 03/23/20 oxyCODONE [Roxicodone] 5 mg PO Q4H PRN 03/23/20 Objective - Vital Signs/Intake & Output Reviewed Vital Signs: Yes Vital Signs: Vital Signs x48h Temp Pulse Pulse Resp BP BP Pulse Ox 05/02/20 10:53 87 18 123/82 H 97 03/23/20 09:32 37.1 C 03/23/20 09:00 89 18 105/69 99 03/23/20 07:00 92 25 H 104/85 H 99 03/23/20 06:25 88 22 03/23/20 06:20 88 18 03/23/20 06:15 88 20 03/23/20 06:10 90 24 03/23/20 06:05 90 17 03/23/20 06:01 87 14 03/23/20 06:00 91 26 H 102/74 03/23/20 05:59 90 21 03/23/20 05:55 89 12 03/23/20 05:50 89 21 03/23/20 05:45 90 20 03/23/20 05:40 90 19 03/23/20 05:35 90 21 03/23/20 05:30 90 21 03/23/20 05:25 89 20 03/23/20 05:20 92 22 03/23/20 05:15 91 21 03/23/20 05:10 91 21 03/23/20 05:05 92 20 03/23/20 05:01 93 21 03/23/20 05:00 93 90 21 103/68 103/68 99 03/23/20 04:59 93 19 03/23/20 04:55 95 18 03/23/20 04:50 95 21 03/23/20 04:45 93 20 03/23/20 04:40 94 19 03/23/20 04:35 93 19 03/23/20 04:30 96 16 03/23/20 04:25 95 20 03/23/20 04:20 93 19 03/23/20 04:15 95 19 03/23/20 04:10 96 18 03/23/20 04:05 96 19 03/23/20 04:01 96 18 03/23/20 04:00 96 17 103/67 03/23/20 03:59 96 18 03/23/20 03:55 96 19 03/23/20 03:50 96 20 03/23/20 03:45 96 16 03/23/20 03:40 99 22 03/23/20 03:35 98 21 03/23/20 03:30 97 19 03/23/20 03:25 97 22 03/23/20 03:20 99 15 03/23/20 03:15 99 22 03/23/20 03:10 97 23 Intake & Output: Intake & Output 03/20/20 03/21/20 03/22/20 03/23/20 23:59 23:59 23:59 23:59 Intake Total 2785.850 Output Total 2325 Balance 460.850 - Objective General Appearance: positive: No acute distress, Alert, Other (Speaks in a low voice.) Eyes Bilateral: positive: Normal inspection ENT: positive: ENT inspection nml Neck: positive: Nml inspection Respiratory: positive: No respiratory distress. negative: Wheezes, Rales Cardiovascular: positive: Regular rate & rhythm, No murmur. negative: Tachycardia, Bradycardia Abdomen: positive: No distention, Tenderness (She does have tenderness in the right upper quadrant.). negative: Non-tender, Guarding, Rebound Skin: positive: Warm, Dry Extremities: positive: Full ROM, No pedal edema, Other (Right lower extremity is in a boot. Per nursing, she does have a scab over the right heel.) Neurologic/Psychiatric: positive: Oriented x3, Depressed mood/affect, Other (She is oriented to self, location, time. She has no focal deficits on exam. She does have a flat affect.). negative: Disoriented to person, Disoriented to place, Disoriented to time - Lab Results Fish Bones: 03/23/20 04:59 03/23/20 04:59 Other Labs: Lab Results x24hrs 03/23/20 03/23/20 03/23/20 Range/Units 04:59 04:59 04:59 WBC 8.5 (4.8-10.8) x10^3/uL RBC 3.68 L (4.20-5.40) 10^6/uL Hgb 9.2 L (12.0-16.0) g/dL Hct 30.6 L (37.0-47.0) % MCV 83.2 (81.0-99.0) fL MCH 25.0 L (27.0-31.0) pg MCHC 30.1 L (32.0-36.0) g/dL RDW 15.9 H (12.0-15.0) % Plt Count 281 (130-450) 10^3/uL MPV 9.5 (7.9-10.8) fL Neut # (Auto) 5.0 (1.5-6.6) 10^3/uL Lymph # (Auto) 2.3 (1.5-3.5) 10^3/uL [place] # (Auto) 0.9 (0.0-1.0) 10^3/uL Eos # (Auto) 0.2 (0.0-0.7) 10^3/uL Baso # (Auto) 0.0 (0.0-0.1) 10^3/uL Absolute Nucleated RBC 0.00 x10^3/uL Nucleated RBC % 0.0 /100WBC VBG pH (7.31-7.41) VBG pCO2 (41-51) mmHg VBG pO2 (25-47) mmHg VBG HCO3 (23-28) mmol/L VBG Total CO2 (24-29) mmol/L VBG O2 Saturation (60-80) % VBG Base Excess (-2 - +2) mmol/L Sodium 137 (135-145) mmol/L Potassium 3.5 (3.5-5.0) mmol/L Chloride 107 (101-111) mmol/L Carbon Dioxide 23 (21-32) mmol/L Anion Gap 7.0 (6-13) BUN 9 (6-20) mg/dL Creatinine 0.6 (0.4-1.0) mg/dL Estimated GFR (MDRD) 108 (>89) Glucose 78 80 (70-100) mg/dL Glycated Hemoglobin (4.6-6.2) % Estim Average Glucose (70-100) Calcium 8.1 L (8.5-10.3) mg/dL Magnesium (1.7-2.8) mg/dL Total Bilirubin (0.2-1.0) mg/dL AST (10-42) IU/L ALT (10-60) IU/L Alkaline Phosphatase (42-121) IU/L Total Protein (6.7-8.2) g/dL Albumin (3.2-5.5) g/dL Globulin (2.1-4.2) g/dL Albumin/Globulin Ratio (1.0-2.2) Lipase (22-51) U/L TSH (0.34-5.60) uIU/mL Urine Color Urine Clarity (CLEAR) Urine pH (5.0-7.5) PH Ur Specific Hye (1.002-1.030) Urine Protein (NEGATIVE) mg/dL Urine Glucose (UA) (NEGATIVE) mg/dL Urine Ketones (NEGATIVE) mg/dL Urine Occult Blood (NEGATIVE) Urine Nitrite (NEGATIVE) Urine Bilirubin (NEGATIVE) Urine Urobilinogen (NORMAL) E.U./dL Ur Leukocyte Esterase (NEGATIVE) Ur Microscopic Review Urine Culture Comments Nasal Screen MRSA (PCR) (NEGATIVE) Salicylates mg/dL Urine Opiates Screen (NEGATIVE) Ur Oxycodone Screen (NEGATIVE) Urine Methadone Screen (NEGATIVE) Ur Propoxyphene Screen (NEGATIVE) Acetaminophen (10-30) ug/mL Ur Barbiturates Screen (NEGATIVE) Ur Tricyclics Screen (NEGATIVE) Ur Phencyclidine Scrn (NEGATIVE) Ur Amphetamine Screen (NEGATIVE) U Methamphetamines Scrn (NEGATIVE) U Benzodiazepines Scrn (NEGATIVE) Urine Cocaine Screen (NEGATIVE) U Cannabinoids Screen (NEGATIVE) Ethyl Alcohol mg/dL Serum Ketones (NEGATIVE) 03/23/20 03/23/20 03/23/20 Range/Units 03:52 02:52 01:38 WBC (4.8-10.8) x10^3/uL RBC (4.20-5.40) 10^6/uL Hgb (12.0-16.0) g/dL Hct (37.0-47.0) % MCV (81.0-99.0) fL MCH (27.0-31.0) pg MCHC (32.0-36.0) g/dL RDW (12.0-15.0) % Plt Count (130-450) 10^3/uL MPV (7.9-10.8) fL Neut # (Auto) (1.5-6.6) 10^3/uL Lymph # (Auto) (1.5-3.5) 10^3/uL [place] # (Auto) (0.0-1.0) 10^3/uL Eos # (Auto) (0.0-0.7) 10^3/uL Baso # (Auto) (0.0-0.1) 10^3/uL Absolute Nucleated RBC x10^3/uL Nucleated RBC % /100WBC VBG pH (7.31-7.41) VBG pCO2 (41-51) mmHg VBG pO2 (25-47) mmHg VBG HCO3 (23-28) mmol/L VBG Total CO2 (24-29) mmol/L VBG O2 Saturation (60-80) % VBG Base Excess (-2 - +2) mmol/L Sodium 133 L 135 (135-145) mmol/L Potassium 3.1 L 2.9 L (3.5-5.0) mmol/L Chloride 103 104 (101-111) mmol/L Carbon Dioxide 23 23 (21-32) mmol/L Anion Gap 7.0 8.0 (6-13) BUN 9 10 (6-20) mg/dL Creatinine 0.6 0.7 (0.4-1.0) mg/dL Estimated GFR (MDRD) 108 90 (>89) Glucose 107 H 66 L 280 H (70-100) mg/dL Glycated Hemoglobin (4.6-6.2) % Estim Average Glucose (70-100) Calcium 8.0 L 8.1 L (8.5-10.3) mg/dL Magnesium 2.5 (1.7-2.8) mg/dL Total Bilirubin (0.2-1.0) mg/dL AST (10-42) IU/L ALT (10-60) IU/L Alkaline Phosphatase (42-121) IU/L Total Protein (6.7-8.2) g/dL Albumin (3.2-5.5) g/dL Globulin (2.1-4.2) g/dL Albumin/Globulin Ratio (1.0-2.2) Lipase (22-51) U/L TSH (0.34-5.60) uIU/mL Urine Color Urine Clarity (CLEAR) Urine pH (5.0-7.5) PH Ur Specific Hye (1.002-1.030) Urine Protein (NEGATIVE) mg/dL Urine Glucose (UA) (NEGATIVE) mg/dL Urine Ketones (NEGATIVE) mg/dL Urine Occult Blood (NEGATIVE) Urine Nitrite (NEGATIVE) Urine Bilirubin (NEGATIVE) Urine Urobilinogen (NORMAL) E.U./dL Ur Leukocyte Esterase (NEGATIVE) Ur Microscopic Review Urine Culture Comments Nasal Screen MRSA (PCR) (NEGATIVE) Salicylates mg/dL Urine Opiates Screen (NEGATIVE) Ur Oxycodone Screen (NEGATIVE) Urine Methadone Screen (NEGATIVE) Ur Propoxyphene Screen (NEGATIVE) Acetaminophen (10-30) ug/mL Ur Barbiturates Screen (NEGATIVE) Ur Tricyclics Screen (NEGATIVE) Ur Phencyclidine Scrn (NEGATIVE) Ur Amphetamine Screen (NEGATIVE) U Methamphetamines Scrn (NEGATIVE) U Benzodiazepines Scrn (NEGATIVE) Urine Cocaine Screen (NEGATIVE) U Cannabinoids Screen (NEGATIVE) Ethyl Alcohol mg/dL Serum Ketones (NEGATIVE) 03/23/20 03/23/20 03/22/20 Range/Units 00:27 00:04 23:27 WBC (4.8-10.8) x10^3/uL RBC (4.20-5.40) 10^6/uL Hgb (12.0-16.0) g/dL Hct (37.0-47.0) % MCV (81.0-99.0) fL MCH (27.0-31.0) pg MCHC (32.0-36.0) g/dL RDW (12.0-15.0) % Plt Count (130-450) 10^3/uL MPV (7.9-10.8) fL Neut # (Auto) (1.5-6.6) 10^3/uL Lymph # (Auto) (1.5-3.5) 10^3/uL [place] # (Auto) (0.0-1.0) 10^3/uL Eos # (Auto) (0.0-0.7) 10^3/uL Baso # (Auto) (0.0-0.1) 10^3/uL Absolute Nucleated RBC x10^3/uL Nucleated RBC % /100WBC VBG pH (7.31-7.41) VBG pCO2 (41-51) mmHg VBG pO2 (25-47) mmHg VBG HCO3 (23-28) mmol/L VBG Total CO2 (24-29) mmol/L VBG O2 Saturation (60-80) % VBG Base Excess (-2 - +2) mmol/L Sodium 128 L 129 L (135-145) mmol/L Potassium 3.2 L 3.2 L (3.5-5.0) mmol/L Chloride 97 L 98 L (101-111) mmol/L Carbon Dioxide 21 19 L (21-32) mmol/L Anion Gap 10.0 12.0 (6-13) BUN 12 14 (6-20) mg/dL Creatinine 0.9 1.0 (0.4-1.0) mg/dL Estimated GFR (MDRD) 67 L 60 L (>89) Glucose 424 H 521 H* (70-100) mg/dL Glycated Hemoglobin (4.6-6.2) % Estim Average Glucose (70-100) Calcium 7.7 L 7.7 L (8.5-10.3) mg/dL Magnesium 1.7 1.8 (1.7-2.8) mg/dL Total Bilirubin (0.2-1.0) mg/dL AST (10-42) IU/L ALT (10-60) IU/L Alkaline Phosphatase (42-121) IU/L Total Protein (6.7-8.2) g/dL Albumin (3.2-5.5) g/dL Globulin (2.1-4.2) g/dL Albumin/Globulin Ratio (1.0-2.2) Lipase (22-51) U/L TSH (0.34-5.60) uIU/mL Urine Color Urine Clarity (CLEAR) Urine pH (5.0-7.5) PH Ur Specific Hye (1.002-1.030) Urine Protein (NEGATIVE) mg/dL Urine Glucose (UA) (NEGATIVE) mg/dL Urine Ketones (NEGATIVE) mg/dL Urine Occult Blood (NEGATIVE) Urine Nitrite (NEGATIVE) Urine Bilirubin (NEGATIVE) Urine Urobilinogen (NORMAL) E.U./dL Ur Leukocyte Esterase (NEGATIVE) Ur Microscopic Review Urine Culture Comments Nasal Screen MRSA (PCR) POSITIVE A* (NEGATIVE) Salicylates mg/dL Urine Opiates Screen (NEGATIVE) Ur Oxycodone Screen (NEGATIVE) Urine Methadone Screen (NEGATIVE) Ur Propoxyphene Screen (NEGATIVE) Acetaminophen (10-30) ug/mL Ur Barbiturates Screen (NEGATIVE) Ur Tricyclics Screen (NEGATIVE) Ur Phencyclidine Scrn (NEGATIVE) Ur Amphetamine Screen (NEGATIVE) U Methamphetamines Scrn (NEGATIVE) U Benzodiazepines Scrn (NEGATIVE) Urine Cocaine Screen (NEGATIVE) U Cannabinoids Screen (NEGATIVE) Ethyl Alcohol mg/dL Serum Ketones (NEGATIVE) 0503/22/20 03/22/20 Range/Units 21:12 21:12 21:12 WBC (4.8-10.8) x10^3/uL RBC (4.20-5.40) 10^6/uL Hgb (12.0-16.0) g/dL Hct (37.0-47.0) % MCV (81.0-99.0) fL MCH (27.0-31.0) pg MCHC (32.0-36.0) g/dL RDW (12.0-15.0) % Plt Count (130-450) 10^3/uL MPV (7.9-10.8) fL Neut # (Auto) (1.5-6.6) 10^3/uL Lymph # (Auto) (1.5-3.5) 10^3/uL [place] # (Auto) (0.0-1.0) 10^3/uL Eos # (Auto) (0.0-0.7) 10^3/uL Baso # (Auto) (0.0-0.1) 10^3/uL Absolute Nucleated RBC x10^3/uL Nucleated RBC % /100WBC VBG pH 7.346 (7.31-7.41) VBG pCO2 33.5 L (41-51) mmHg VBG pO2 29.8 (25-47) mmHg VBG HCO3 17.9 L (23-28) mmol/L VBG Total CO2 18.9 L (24-29) mmol/L VBG O2 Saturation 55.9 L (60-80) % VBG Base Excess -6.9 L (-2 - +2) mmol/L Sodium (135-145) mmol/L Potassium (3.5-5.0) mmol/L Chloride (101-111) mmol/L Carbon Dioxide (21-32) mmol/L Anion Gap (6-13) BUN (6-20) mg/dL Creatinine (0.4-1.0) mg/dL Estimated GFR (MDRD) (>89) Glucose (70-100) mg/dL Glycated Hemoglobin 8.6 H (4.6-6.2) % Estim Average Glucose 200 H (70-100) Calcium (8.5-10.3) mg/dL Magnesium (1.7-2.8) mg/dL Total Bilirubin (0.2-1.0) mg/dL AST (10-42) IU/L ALT (10-60) IU/L Alkaline Phosphatase (42-121) IU/L Total Protein (6.7-8.2) g/dL Albumin (3.2-5.5) g/dL Globulin (2.1-4.2) g/dL Albumin/Globulin Ratio (1.0-2.2) Lipase (22-51) U/L TSH 3.44 (0.34-5.60) uIU/mL Urine Color Urine Clarity (CLEAR) Urine pH (5.0-7.5) PH Ur Specific Hye (1.002-1.030) Urine Protein (NEGATIVE) mg/dL Urine Glucose (UA) (NEGATIVE) mg/dL Urine Ketones (NEGATIVE) mg/dL Urine Occult Blood (NEGATIVE) Urine Nitrite (NEGATIVE) Urine Bilirubin (NEGATIVE) Urine Urobilinogen (NORMAL) E.U./dL Ur Leukocyte Esterase (NEGATIVE) Ur Microscopic Review Urine Culture Comments Nasal Screen MRSA (PCR) (NEGATIVE) Salicylates mg/dL Urine Opiates Screen (NEGATIVE) Ur Oxycodone Screen (NEGATIVE) Urine Methadone Screen (NEGATIVE) Ur Propoxyphene Screen (NEGATIVE) Acetaminophen (10-30) ug/mL Ur Barbiturates Screen (NEGATIVE) Ur Tricyclics Screen (NEGATIVE) Ur Phencyclidine Scrn (NEGATIVE) Ur Amphetamine Screen (NEGATIVE) U Methamphetamines Scrn (NEGATIVE) U Benzodiazepines Scrn (NEGATIVE) Urine Cocaine Screen (NEGATIVE) U Cannabinoids Screen (NEGATIVE) Ethyl Alcohol mg/dL Serum Ketones (NEGATIVE) 03/22/20 03/22/20 03/22/20 Range/Units 21:12 21:12 21:07 WBC 8.4 (4.8-10.8) x10^3/uL RBC 3.81 L (4.20-5.40) 10^6/uL Hgb 9.8 L (12.0-16.0) g/dL Hct 32.6 L (37.0-47.0) % MCV 85.6 (81.0-99.0) fL MCH 25.7 L (27.0-31.0) pg MCHC 30.1 L (32.0-36.0) g/dL RDW 16.1 H (12.0-15.0) % Plt Count 279 (130-450) 10^3/uL MPV 10.2 (7.9-10.8) fL Neut # (Auto) 6.6 (1.5-6.6) 10^3/uL Lymph # (Auto) 0.7 L (1.5-3.5) 10^3/uL [place] # (Auto) 0.6 (0.0-1.0) 10^3/uL Eos # (Auto) 0.3 (0.0-0.7) 10^3/uL Baso # (Auto) 0.1 (0.0-0.1) 10^3/uL Absolute Nucleated RBC 0.00 x10^3/uL Nucleated RBC % 0.0 /100WBC VBG pH (7.31-7.41) VBG pCO2 (41-51) mmHg VBG pO2 (25-47) mmHg VBG HCO3 (23-28) mmol/L VBG Total CO2 (24-29) mmol/L VBG O2 Saturation (60-80) % VBG Base Excess (-2 - +2) mmol/L Sodium 131 L (135-145) mmol/L Potassium 4.2 (3.5-5.0) mmol/L Chloride 97 L (101-111) mmol/L Carbon Dioxide 22 (21-32) mmol/L Anion Gap 12.0 (6-13) BUN 16 (6-20) mg/dL Creatinine 1.1 H (0.4-1.0) mg/dL Estimated GFR (MDRD) 53 L (>89) Glucose 877 H* (70-100) mg/dL Glycated Hemoglobin (4.6-6.2) % Estim Average Glucose (70-100) Calcium 8.3 L (8.5-10.3) mg/dL Magnesium (1.7-2.8) mg/dL Total Bilirubin 0.9 (0.2-1.0) mg/dL AST 16 (10-42) IU/L ALT 18 (10-60) IU/L Alkaline Phosphatase 123 H (42-121) IU/L Total Protein 6.8 (6.7-8.2) g/dL Albumin 3.8 (3.2-5.5) g/dL Globulin 3.0 (2.1-4.2) g/dL Albumin/Globulin Ratio 1.3 (1.0-2.2) Lipase 25 (22-51) U/L TSH (0.34-5.60) uIU/mL Urine Color YELLOW Urine Clarity CLEAR (CLEAR) Urine pH 5.5 (5.0-7.5) PH Ur Specific Hye 1.010 (1.002-1.030) Urine Protein NEGATIVE (NEGATIVE) mg/dL Urine Glucose (UA) >=1000 H (NEGATIVE) mg/dL Urine Ketones NEGATIVE (NEGATIVE) mg/dL Urine Occult Blood NEGATIVE (NEGATIVE) Urine Nitrite NEGATIVE (NEGATIVE) Urine Bilirubin NEGATIVE (NEGATIVE) Urine Urobilinogen 0.2 (NORMAL) (NORMAL) E.U./dL Ur Leukocyte Esterase NEGATIVE (NEGATIVE) Ur Microscopic Review NOT INDICATED Urine Culture Comments NOT INDICATED Nasal Screen MRSA (PCR) (NEGATIVE) Salicylates < 6.0 mg/dL Urine Opiates Screen NEGATIVE (NEGATIVE) Ur Oxycodone Screen NEGATIVE (NEGATIVE) Urine Methadone Screen NEGATIVE (NEGATIVE) Ur Propoxyphene Screen NEGATIVE (NEGATIVE) Acetaminophen < 10 L (10-30) ug/mL Ur Barbiturates Screen POSITIVE H (NEGATIVE) Ur Tricyclics Screen NEGATIVE (NEGATIVE) Ur Phencyclidine Scrn NEGATIVE (NEGATIVE) Ur Amphetamine Screen NEGATIVE (NEGATIVE) U Methamphetamines Scrn NEGATIVE (NEGATIVE) U Benzodiazepines Scrn NEGATIVE (NEGATIVE) Urine Cocaine Screen NEGATIVE (NEGATIVE) U Cannabinoids Screen NEGATIVE (NEGATIVE) Ethyl Alcohol < 5.0 mg/dL Serum Ketones NEGATIVE (NEGATIVE) ABX Reporting Has patient been on IV antibiotics over the past 48 hours?: No Assessment/Plan - Problem List (1) Hypoglycemia Impression: Presented with hyperglycemia but it was hypoglycemic overnight. She required dextrose intravenously and her blood glucose this morning was 160. She is now tolerating a diet. We will observe her overnight given the hypoglycemic episode and the fact that her insulin pump is not functioning at the moment. (2) Type 1 diabetes mellitus with complication, uncontrolled Impression: She is a brittle type I diabetic and presented with hyperglycemia with a blood glucose over 800. She was hypoglycemic overnight and she now has a blood glucose of 160. Her A1c is 8.6%. She was likely hyperglycemic at home given her insulin pump was not functioning. She tells me that when she was at rehab, she was on Levemir twice daily and Humalog with meals but was discharged home on her insulin pump. Even her hypoglycemic episode, we will monitor her overnight. We will place her on Lantus 10 units daily and 4 units of NovoLog with meals. Unfortunately, our diabetic educators are not available over the weekend. If her blood glucose is stable overnight, will consider discharging her home tomorrow on subcutaneous insulin. She can follow-up on an outpatient basis and have her insulin pump taking care of. I am somewhat concerned with her history of labile blood sugars that the best option to prevent readmission due to either hyperglycemia or hypoglycemia would be to consider keeping her hospitalized until Wednesday for evaluation by our diabetic educators. We will see how she does from a diabetes standpoint over next 24 hours. (3) Abdominal pain Impression: She complains of right upper quadrant abdominal pain and reports a history of gallstones in the past. She is tender on exam. He has no leukocytosis or fever and CT abdomen pelvis yesterday showed an unremarkable gallbladder. But given her pain and nausea, we will obtain an ultrasound. Qualifiers: Abdominal location: generalized Qualified Code(s): R10.84 - Generalized abdominal pain (4) Altered mental status Impression: She was reportedly altered in the emergency department but she appears back to her baseline mental status at this time. We will resume her home medications and monitor her neurologic status as she is on a lot of sedatives at home which may be contributing to her mental status change. Qualifiers: Altered mental status type: unspecified Qualified Code(s): R41.82 - Altered mental status, unspecified (5) Urinary retention Impression: She is a history of urinary incontinence for which she takes for a Myrbetriq. Reportedly had acute urinary tension the emergency department required a catheter with 2 L of urine removed. We will hold her home medications and with a catheter for a voiding trial. (6) History of osteomyelitis Impression: Is a history of arthritis of the right tibia and underwent surgical intervention at [facility]. She is now off of IV antibiotics and in the walking boot. No signs of active infection at the moment. Continue outpatient follow-up. (7) Depression Impression: We will continue her home Cymbalta and Klonopin as needed. We will hold her home escitalopram until dose is confirmed. (8) Hypothyroidism Impression: TSH is within normal limits. Continue her home Synthroid dose.
[2020-03-23] MEDS: DULoxetine 30 MG CAPSULE PO SCH (11:59)
[2020-03-23] MEDS: INSULIN ASPART 300 UNIT/3 ML PEN SUBQ SCH ×2 (12:00→16:54)
[2020-03-23] MEDS: clonazePAM 0.5 MG TABLET PO PRN ×2 (12:15→18:23)
[2020-03-23] MEDS ORDERED: ATORVASTATIN 10 MG TABLET PO SCH (21:00)
[2020-03-23] MEDS ORDERED: PRAZOSIN 1 MG CAPSULE PO SCH (21:00)
[2020-03-23] MEDS ORDERED: traZODone 50 MG TABLET PO SCH (21:00)
--- NOTE | 2020-03-23 22:40 | Ultrasound Report ---
Reason: Right upper quadrant tenderness. Procedure Date: 03/23/2020 Accession Number: [id number] / [id number] Procedure: US - Abdomen Limited CPT Code: Final Report FULL RESULT: EXAM: ABDOMEN ULTRASOUND LIMITED, RUQ EXAM DATE: 03/23/2020 09:00 PM. CLINICAL HISTORY: Right upper quadrant tenderness. COMPARISON: CT ABDOMEN/PELVIS W 03/22/2020 9:[address] ABDOMEN/PELVIS W/ 05/22/2018 3:07 PM. TECHNIQUE: Real-time scanning was performed with static images obtained. FINDINGS: Liver: Mildly echogenic parenchyma. Liver measures 17.1 cm. Main portal vein flow: Hepatopetal. Gallbladder: Gallbladder is mildly distended. No stones, wall thickening, or sonographic Aguilar's sign. Biliary System: CBD measures 6.8 mm. No intrahepatic or extrahepatic ductal dilatation. Other: Mild fullness of right renal pelvis. IMPRESSION: 1. Distended gallbladder. No gallstones or evidence of acute cholecystitis. 2. Borderline dilated CBD measuring 6.8 mm. 3. Mild right renal pelviectasis or extrarenal pelvis. 4. Mild hepatic steatosis. [facility]
[2020-03-24] MEDS: SODIUM CHLORIDE FLUSH 0.9% 10 ML SYRINGE IVP SCH ×2 (00:13→08:09)
[2020-03-24] MEDS: ACETAMINOPHEN 325 MG TABLET PO PRN ×2 (02:13→08:04)
[2020-03-24 05:44] LABS: BASOPHILS % (AUTO) 0.7 %; EOSINOPHILS # (AUTO) 0.6 10^3/uL (0.0-0.7); EOSINOPHILS % (AUTO) 10.4 %; HGB - HEMOGLOBIN 9.8 g/dL (12.0-16.0); LYMPHOCYTES # (AUTO) 1.7 10^3/uL (1.5-3.5); LYMPHOCYTES % (AUTO) 29.4 %; MEAN CORPUSCULAR HEMOGLOBIN 24.9 pg (27.0-31.0); MEAN CORPUSCULAR HGB CONC 30.2 g/dL (32.0-36.0); MEAN CORPUSCULAR VOLUME 82.4 fL (81.0-99.0); MONOCYTES # (AUTO) 0.5 10^3/uL (0.0-1.0); MONOCYTES % (AUTO) 8.7 %; NEUTROPHILS # (AUTO) 2.9 10^3/uL (1.5-6.6); NEUTROPHILS % (AUTO) 50.5 %; PLT - PLATELET COUNT 294 10^3/uL (130-450); RED BLOOD COUNT 3.93 10^6/uL (4.20-5.40); RED CELL DISTRIBUTION WIDTH 15.9 % (12.0-15.0); WHITE BLOOD COUNT 5.8 x10^3/uL (4.8-10.8)
[2020-03-24 05:55] LABS: CALCIUM 8.2 mg/dL (8.5-10.3); CREATININE 0.7 mg/dL (0.4-1.0); PHOSPHORUS 3.3 mg/dL (2.5-4.6)
[2020-03-24] MEDS ORDERED: LEVOTHYROXINE 112 MCG TABLET PO SCH (07:00)
[2020-03-24] MEDS ORDERED: PANTOPRAZOLE 40 MG TABLET PO SCH (07:00)
[2020-03-24] MEDS: HEPARIN 5,000 UNIT/ML VIAL SUBQ SCH (08:01)
[2020-03-24] MEDS: INSULIN ASPART 300 UNIT/3 ML PEN SUBQ SCH ×2 (08:01→12:10)
[2020-03-24] MEDS: DOCUSATE SODIUM 250 MG CAPSULE PO SCH (08:05)
[2020-03-24] MEDS: DULoxetine 30 MG CAPSULE PO SCH (08:05)
[2020-03-24] MEDS: SENNA 8.6 MG TABLET PO SCH (08:05)
[2020-03-24] MEDS: ethyl alcohoL 62% SWAB AMPULE NAS SCH (08:06)
[2020-03-24] MEDS ORDERED: ESCITALOPRAM 10 MG TABLET PO SCH (09:00)
[2020-03-24] MEDS ORDERED: SPIRONOLACTONE 25 MG TABLET PO SCH (09:00)
[2020-03-24] MEDS: oxyCODONE 5 MG TABLET PO PRN (09:00)
[2020-03-24] MEDS ORDERED: PATIENT OWN MED PO SCH ×2 (09:00→21:00)
[2020-03-24] MEDS ORDERED: INSULIN GLARGINE 300 UNIT/3 ML PEN SUBQ SCH (09:00)
--- NOTE | 2020-03-24 10:40 | Discharge Plan ---
Discharge Plan Problem Reviewed?: Yes Disposition: Home Health Service Condition: Stable Prescriptions: oxyCODONE [Roxicodone] 5 mg PO Q4HR PRN 2 Days #10 tablet PRN Reason: Pain Diet: Diabetic Instruction Topics: Hyperglycemia, Hypoglycemia Health Concerns: You were admitted to the hospital because of an elevated blood sugar. You required to be treated with IV insulin in the intensive care unit. Your blood sugar unfortunately dropped very quickly and you became hypoglycemic. The IV insulin was discontinued and you were placed on subcutaneous insulin. Your blood sugars have since remained stable. There was concern that you were confused upon arrival to the hospital. A CT scan of your brain was normal. Given your falls, a CT scan of your cervical spine was also performed which was normal. You had some abdominal pain and a CT scan of the belly was performed which did not show any acute abnormalities. As you had concerns regarding your gallbladder, an ultrasound was performed of your gallbladder which showed no gallstones or inflammation. You also had urinary retention when you were admitted to the hospital. A catheter had to be placed to relieve your bladder. You have since been urinating without difficulty. It is recommended you stop your Mirabegron as this can occasionally caused urinary retention. If you develop urinary incontinence again, and you can follow-up with your primary care provider to discuss other medical options. Plan of Treatment: Please use your insulin pump as previously prescribed. If it is not working, I have prescribed you subcutaneous insulin. Please take it as prescribed. Please continue to check your blood sugar in the morning and with meals. If you develop really high blood sugars or really low blood sugars then please call your primary care provider or return to the emergency department. Care Goals: Please follow-up with your primary care physician within 1 week. Assessment: Patient expressed understanding of the treatment plan. No Smoking: If you smoke, Please STOP! Call for help. Follow-up with: Isatu Belle MD [Primary Care Provider] -
--- NOTE | 2020-03-24 10:46 | DISCHARGE SUMMARY ---
"Discharge Summary Admit Date: 03/22/20 Discharge Date: 03/24/20 Discharging Provider: Papito Allan Primary Care Provider: Isatu Belle Code Status: Attempt Resuscitation Condition at Discharge: Stable Discharge Disposition: Home Health Service - DIAGNOSES Admission Diagnoses: Hyperglycemia Altered mental status Hypothyroidism Neurogenic dysfunction of the urinary bladder Hyperlipidemia Discharge Diagnoses with Status of Each Condition: Brittle type 1 diabetes mellitus - stable. Her A1c is 8.6%. She insistent on being discharged home on her insulin pump. She believes it is functioning and she has all her equipment at home. Her backup plan if it is not working is to take subcutaneous insulin. She declined any prescriptions on discharge. Referral was made to para educator for tomorrow but patient stated she would not attend the appointment unless she is not doing well at home. I asked her to follow-up with her primary care provider within 1 week. Abdominal pain - stable. Etiology of her abdominal pain is not clear. A CT of the abdomen pelvis showed no acute abnormalities. Right upper quadrant ultras ound showed a distended gallbladder but no gallstones or evidence of cholecystitis. She is able to tolerate a diet. We will continue her on Protonix and have asked her to follow-up with her primary care provider. Altered mental status - resolved. She was reportedly altered on admission but has been alert and oriented without any neuro deficits during this hospitalization. Urinary retention - resolved. Was present on admission and she required a Valdez catheter to be placed. She has done well with a voiding trial. I have asked her to discontinue her Mirabegron which she was taking for urinary incontinence and follow up on an outpatient basis. History of osteomyelitis - stable. She has been off of antibiotics. She has been taking oxycodone for fracture in the right lower extremity where the osteomyelitis was. She asked for a prescription and I provide her with 10 tablets of oxycodone. Depression - stable. We will continue her home medications. Hypothyroidism - stable. Continue synthroid. - HPI History of Present Illness: H&P per Dr. Van on 03/22/20: Patient is a 44-year-old female with history of type 1 diabetes on an insulin pump who was brought by EMS from her home after she fell. She lives with her son and daughter. It was reported by her son that she has fallen at least 10 times today. The patient states that they were mechanical falls. She gets around with a walker. She has a boot on her right leg as a result of an ankle fracture she sustained in August 2019. There were complications involved with the fracture for which she had to be transferred to [place] for further surgery. She reports hitting her head when she fell. In the ED work-up included a CT scan of the brain which was unremarkable. She was found to have a blood glucose of 887. It is also reported that she lost her insulin pump when she fell. She was given regular insulin 5 units IV x1 and 5 units subcu x1 in the ED. Between EMS and the ED she received 2 L bolus of fluid. As a result of the lab findings she is being admitted for further treatment of her blood glucose. At bedside she is awake and alert. She denies chest pain, dyspnea, abdominal pain, fever or chills. She reports nausea. Rest of her history is unremarkable - CONSULTS | PROCEDURES Consultations: PT Procedures: CT of the abdomen and pelvis on March 22 showed no acute abnormalities in the abdomen or pelvis. She did have a full urinary bladder. Stable postsurgical changes of gastric bypass. Severely atrophic pancreas, unchanged. CT of the head on March 22 showed no acute abnormalities. CT of the cervical spine on March 22 showed no acute abnormalities. Abdominal ultrasound on March 23 showed a distended gallbladder but no gallstones or evidence of acute cholecystitis. Borderline dilated common bile duct measuring 6 x 8 mm. Mild hepatic steatosis. Mild right renal pelviectasis or extrarenal pelvis. - HOSPITAL COURSE Hospital Course: Presented with hyperglycemia and a blood glucose greater than 800. Was treated with IV insulin and IV hydration. There was no evidence of DKA. She became hypoglycemic while on the IV insulin and transition to subcutaneous insulin. She was placed on Lantus 10 units daily and 4 units of NovoLog with meals. Her blood glucose remained elevated in the 300s. Her Lantus was then increased to 12 units and NovoLog to 6 units with meals. She complained about upper quadrant abdominal pain and although CT of the abdomen pelvis showed no acute normalities and ultrasound was performed. This showed a distended gallbladder but no gallstones or cholecystitis. The patient has able to tolerate a diet. She also did have urinary retention on admission and required a Valdez catheter. She is now able to void on her own. Her home mirabegron has been discontinued. Patient was insistent on going home although there was concern regarding her insulin compliance at home. Given the fact that she presented to the emergency department due to hyperglycemia and a malfunctioning insulin pump but the patient is adamant and insistent that her insulin pump was working well and that the only reason she was hyerglycemic was that because it became detached and was disconnected for over 8 hours. She states that her insulin pump is functioning correctly and she has all the equipment she needs at home. I asked her what she would do if she found that her insulin pump is not working and she stated that she has subcutaneous insulin at home that she can use. I offered to prescribe her subcutaneous insulin but she declined stating that she has everything she needs at home. I offered to place her on the regimen we have been using in the inpatient setting but she stated that she has her own insulin regimen at home th at she would use which does not including any long acting insulin. I offered to prescribe her Lantus but she declined. We have placed a consult for the para educator to see her tomorrow but the patient stated she will not go to the appointment unless she is not doing well at home. I asked her to attend the appointment even if she is doing well and her blood sugars are controlled but she declined. Her blood glucose was 290 on discharge. She is requesting oxycodone for her right leg fracture. She had been prescribed 10 tablets of oxycodone 5 mg on March 17 and the patient stated that she has run out of that prescription. Her urine toxicology screen on admission was negative for oxycodone and was positive for barbiturates which is consistent with her Fioricet use. She has been receiving oxycodone during this hospitalization and so I will write her a prescription for 10 tablets of oxycodone. I asked her to follow-up with her primary care provider. She stated that she has been referred to pain management but her appointment is not until April. The patient is at high risk for readmission. - ALLERGIES Allergies/Adverse Reactions: Allergies Allergy/AdvReac Type Severity Reaction Status Date / Time carisoprodol [From Soma] Allergy Unknown Verified 10/14/19 07:53 divalproex sodium Allergy Rash Verified 10/14/19 07:53 [From Depakote] gabapentin [From Neurontin] Allergy Edema Verified 10/14/19 07:53 lidocaine Allergy Unknown Verified 10/14/19 07:53 nitrofurantoin Allergy Rash Verified 10/14/19 07:53 macrocrystalline * [From Macrodantin] nortriptyline Allergy Unknown Verified 10/14/19 07:53 ondansetron [From Zofran] Allergy Hives Verified 10/14/19 07:53 ondansetron HCl * Allergy Hives Verified 10/14/19 07:53 [From Zofran (as hydrochloride)] pregabalin [From Lyrica] Allergy Headache Verified 10/14/19 07:53 - MEDICATIONS Home Medications: Ambulatory Orders Medication Instructions Recorded Confirmed Insulin Lispro [Humalog] 20 - 25 units SQ DAILY 10/30/15 03/23/20 Baclofen 10 mg PO QID PRN 06/03/16 03/23/20 Escitalopram Oxalate [Lexapro] 40 mg PO DAILY 05/22/18 03/23/20 Simvastatin 20 mg PO QPM 05/22/18 03/23/20 Butalb/Acetam/Caff 50/325/40 1 tab PO Q4H PRN 01/22/19 03/23/20 [Fioricet] Prazosin HCl 5 mg PO QPM 01/23/19 03/23/20 Trazodone HCl 200 mg PO QPM 01/23/19 03/23/20 Duloxetine HCl [Cymbalta] 120 mg PO DAILY 09/15/19 03/23/20 Levothyroxine [Synthroid] 112 mcg PO QDAC 09/15/19 03/23/20 Pantoprazole Sodium [Protonix] 20 mg PO QDAC 09/15/19 03/23/20 clonazePAM [Clonazepam] 1 mg PO TID PRN 09/15/19 03/23/20 Ferrous Gluconate 240 mg PO DAILY #30 tablet 09/18/19 03/23/20 Spironolactone 100 mg PO DAILY 10/14/19 03/23/20 oxyCODONE [Roxicodone] 5 mg PO Q4HR PRN 2 Days #10 tablet 03/24/20 - PHYSICAL EXAM AT DISCHARGE General Appearance: positive: No acute distress, Alert Eyes Bilateral: positive: Normal inspection ENT: positive: ENT inspection nml Neck: positive: Nml inspection Respiratory: positive: No respiratory distress. negative: Wheezes, Rales Cardiovascular: positive: Regular rate & rhythm, No murmur. negative: Tachycardia, Bradycardia, Systolic murmur Abdomen: positive: Nml bowel sounds, No distention, Tenderness (Right upper quadrant.). negative: Non-tender, Guarding, Rebound Skin: positive: Warm, Dry Extremities: positive: Full ROM, No pedal edema, Other (Boot is in place over the right lower extremity.) - LABS Result Diagrams: 03/24/20 05:36 03/24/20 05:36 - FOLLOW UP Follow Up: She was asked to follow-up with her primary care provider within 1 week. - TIME SPENT Time Spent in Discharge (Minutes): 45"
[2020-03-24 11:26] VITALS: BP 125/78
== END 2020-03-24 12:22 | disposition home health service (06) | DRG 639 ==
LOC: EDUNIT# → ED 20:51 → ICU 22:43 → MS2 03-23 15:46
PROVIDERS: ADMIT Internal Medicine; ATTEND Internal Medicine
DX: E11.65 Type 2 diabetes mellitus with hyperglycemia (principal); R33.9 Retention of urine, unspecified; R41.82 Altered mental status, unspecified; E10.65 Type 1 diabetes mellitus with hyperglycemia; F17.200 Nicotine dependence, unspecified, uncomplicated; E78.00 Pure hypercholesterolemia, unspecified; E10.649 Type 1 diabetes mellitus with hypoglycemia without coma; R01.1 Cardiac murmur, unspecified; E10.42 Type 1 diabetes mellitus with diabetic polyneuropathy; T38.3X6A Underdosing of insulin and oral hypoglycemic [antidiabetic] drugs, initial encounter; Y92.009 Unspecified place in unspecified non-institutional (private) residence as the place of occurrence of the external cause; F32.9 Major depressive disorder, single episode, unspecified; N31.9 Neuromuscular dysfunction of bladder, unspecified; R33.8 Other retention of urine; E03.9 Hypothyroidism, unspecified; R41.3 Other amnesia; J44.9 Chronic obstructive pulmonary disease, unspecified; F17.210 Nicotine dependence, cigarettes, uncomplicated; G40.909 Epilepsy, unspecified, not intractable, without status epilepticus; K82.8 Other specified diseases of gallbladder; E78.5 Hyperlipidemia, unspecified; K21.9 Gastro-esophageal reflux disease without esophagitis; M79.7 Fibromyalgia; G89.29 Other chronic pain; G43.909 Migraine, unspecified, not intractable, without status migrainosus; M54.9 Dorsalgia, unspecified; M19.90 Unspecified osteoarthritis, unspecified site; J32.9 Chronic sinusitis, unspecified; H54.7 Unspecified visual loss; S82.891D Other fracture of right lower leg, subsequent encounter for closed fracture with routine healing; Z66 Do not resuscitate; Z74.09 Other reduced mobility; Z91.81 History of falling; Z79.4 Long term (current) use of insulin; Z79.891 Long term (current) use of opiate analgesic; Z79.82 Long term (current) use of aspirin; Z87.820 Personal history of traumatic brain injury; Z87.11 Personal history of peptic ulcer disease; Z87.01 Personal history of pneumonia (recurrent); Z86.19 Personal history of other infectious and parasitic diseases
CPT/HCPCS: 36415; 51702; 70450; 72125; 74177; 76705; 80048; 80053; 81003; 82009; 82803; 82947; 83036; 83690; 83735; 84100; 84443; 85025; 87150; 97162; 97530; 99285; A9270; J1815; J2765; Q9967; 80306; 80307; 80320; 80329; 81001; 87086

== ENCOUNTER 2020-03-26 12:05 | Emergency (ER) | payer MEDICARE, MEDICAID ==
--- NOTE | 2020-03-26 12:58 | ED Physician Documentation ---
PD HPI LOWER EXT INJURY - Stated complaint Stated Complaint: R ANKLE PX - Chief complaint Chief Complaint: Ext Problem - History obtained from History obtained from: Patient (44-year-old female patient comes in today with chief complaint of right ankle pain. She was seen about 4 days ago for elevated blood sugar at that time she forgot to mention her right ankle. Patient does have a past medical history of having a compound fracture to the right ankle right lower leg back in roughly September and October 2019, she had surgery with pins and rods placed. These were removed back in December 2019, since then the patient has been in a stiff walking boot. She has chronic pain to the right ankle and right foot. She is followed by PCP and is on pain medications for them. She states that roughly 3 days ago she did fall while wearing her boot states her foot twisted inside the boot and now she has more pain. No other complaints today.) - History of Present Illness PD HPI LOW EXT INJURY LOCATION: Right, Ankle Type of injury: Fall (three days ago.) Where injury occurred: Home Timing - details: Abrupt onset, Still present, Constant Improved by: Nothing Worsened by: Moving Associated symptoms: Numbness (chronic since her right ankle/ lower leg surgery back in October 2019 for compound fracture of the right ankle.), Tingling Contributing factors: Prior ortho surgery Review of Systems Constitutional: denies: Fever, Chills, Myalgias, Fatigue, Weight Loss, Sweats Cardiac: reports: Pedal edema (right lower leg, ankle and foot edema.). denies: Chest pain / pressure, Palpitations, Calf pain Respiratory: denies: Dyspnea, Cough, Hemoptysis, Wheezing GI: denies: Abdominal Pain, Nausea, Vomiting, Diarrhea Skin: denies: Rash, Lesions Musculoskeletal: reports: Extremity pain (right ankle.), Joint pain, Extremity swelling, Joint swelling, Pain with weight bearing PD PAST MEDICAL HISTORY - Past Medical History Past Medical History: Yes Cardiovascular: High cholesterol, Murmur Respiratory: COPD, Pneumonia, Shortness of breath Neuro: Headaches, Migraines, Peripheral neuropathy, Seizure disorder, Other Endocrine/Autoimmune: Type 1 diabetes GI: GERD, GI bleed, Ulcers, Other FRENCH BINDER: Other : Kidney stones, Other HEENT: Chronic vision loss, Chronic sinusitis Psych: Other Musculoskeletal: Osteoarthritis, Fibromyalgia, Fatigue, Chronic back pain Derm: None - Past Surgical History Past Surgical History: Yes General: Gastric surgery Ortho: Other /FRENCH BINDER: section, Endometrial ablation, Tubal ligation - Present Medications Home Medications: Ambulatory Orders Medication Instructions Recorded Confirmed Insulin Lispro [Humalog] 20 - 25 units SQ DAILY 10/30/15 03/23/20 Baclofen 10 mg PO QID PRN 06/03/16 03/23/20 Escitalopram Oxalate [Lexapro] 40 mg PO DAILY 05/22/18 03/23/20 Simvastatin 20 mg PO QPM 05/22/18 03/23/20 Butalb/Acetam/Caff 50/325/40 1 tab PO Q4H PRN 01/22/19 03/23/20 [Fioricet] Prazosin HCl 5 mg PO QPM 01/23/19 03/23/20 Trazodone HCl 200 mg PO QPM 01/23/19 03/23/20 Duloxetine HCl [Cymbalta] 120 mg PO DAILY 09/15/19 03/23/20 Levothyroxine [Synthroid] 112 mcg PO QDAC 09/15/19 03/23/20 Pantoprazole Sodium [Protonix] 20 mg PO QDAC 09/15/19 03/23/20 clonazePAM [Clonazepam] 1 mg PO TID PRN 09/15/19 03/23/20 Ferrous Gluconate 240 mg PO DAILY #30 tablet 09/18/19 03/23/20 Spironolactone 100 mg PO DAILY 10/14/19 03/23/20 oxyCODONE [Roxicodone] 5 mg PO Q4HR PRN 2 Days #10 tablet 03/24/20 Insulin Detemir [Levemir Flextouch] 10 - 12 units SUBQ BID PRN 03/26/20 03/26/20 traMADol [Ultram] 50 mg PO Q4-6H #15 tablet 03/26/20 - Allergies Allergies/Adverse Reactions: Allergies Allergy/AdvReac Type Severity Reaction Status Date / Time carisoprodol [From Soma] Allergy Unknown Verified 03/26/20 12:11 divalproex sodium Allergy Rash Verified 03/26/20 12:11 [From Depakote] gabapentin [From Neurontin] Allergy Edema Verified 03/26/20 12:11 lidocaine Allergy Unknown Verified 03/26/20 12:11 nitrofurantoin Allergy Rash Verified 03/26/20 12:11 macrocrystalline * [From Macrodantin] nortriptyline Allergy Unknown Verified 03/26/20 12:11 ondansetron [From Zofran] Allergy Hives Verified 03/26/20 12:11 ondansetron HCl * Allergy Hives Verified 03/26/20 12:11 [From Zofran (as hydrochloride)] pregabalin [From Lyrica] Allergy Headache Verified 03/26/20 12:11 - Social History Does the pt smoke?: Yes Smoking Status: Current every day smoker Does the pt drink ETOH?: No Does the pt have substance abuse?: No - Immunizations Immunizations are current?: Yes Immunizations: TDAP >10years/unknown - POLST Patient has POLST: No POLST Status: DNR PD ED PE NORMAL - General General: Alert and oriented X 3 - HEENT HEENT: Atraumatic, PERRL, EOMI - Cardiac Cardiac: RRR - Respiratory Respiratory: No respiratory distress - Extremities Extremities: No deformity. No: No tenderness to palpate, Normal ROM s pain, No edema PD ED PE EXPANDED - Extremities Extremities: Right leg, Right ankle (edema 2+ pitting; TTP bilateral malleolous, mid foot bones; slight erythema at the medial malleolous site of skin graph, without warmth. ), Right foot, Pedal Pulses Present, Motor intact (weakness & limited AROM 2/2 prior surgery and chronic pain. ) Results - Vitals Vitals: Vital Signs - 24 hr 03/26/20 03/26/20 12:11 14:34 Temperature 36.5 C 36.8 C Heart Rate 98 84 Respiratory 14 16 Rate Blood Pressure 142/76 H 131/81 H O2 Saturation 99 100 Oxygen O2 Source Room air - Rads (name of study) No standard instances Radiology: Final report received, See rad report PD MEDICAL DECISION MAKING - ED course Complexity details: reviewed results, re-evaluated patient, considered differential (acute on chronic fracture, osteomyelitis, disloation of ankle / foot. ), d/w patient (pt refused Ketorolac IM for pain control. Was only interested in receiving "morphine or dilaudid". States she has "only eight oxy's left".), d/w economics consultant Departure - Departure Disposition: 01 Home, Self Care Clinical Impression: Ankle pain, right Qualifiers: Chronicity: chronic Qualified Code(s): M25.571 - Pain in right ankle and joints of right foot Osteomyelitis of ankle Qualifiers: Osteomyelitis type: chronic multifocal Laterality: right Qualified Code(s): M86.371 - Chronic multifocal osteomyelitis, right ankle and foot Instructions: Osteomyelitis Dc Prescriptions: traMADol [Ultram] 50 mg PO Q4-6H #15 tablet Comments: Your foot and ankle xray's in the Emergency Room do not show any new (acute) break in your ankle or foot bones. You do however have unhealing old fractures and Osteomyelitis of the medial (inside of your ankle) bone. As I discussed with you today, you will be living with pain the rest of your life because of this unfortunate ankle break. You will have to learn to manage / deal with your pain in ways that do not always include narcotic pain medications. You need to call the orthopedic doctor to get in and seen right away so that 1) your osteomyelitis / ankle fracture can be properly managed, and 2) have one provider managing your pain medications. I have provided you with a prescription for Tramadol. You can take 1 tabe every 4-6 hours for pain control. You can also take Tylenol in addition. Save your Oxycodone for when the pain is at it's worst. follow up with orthopedics or your primary care provider for further pain med ication management. Discharge Date/Time: 03/26/20 14:42
--- NOTE | 2020-03-26 13:41 | XRAY Report ---
Reason: GLF, bilateral malleolous pain, foot pain, edema Procedure Date: 03/26/2020 Accession Number: [id number] / [id number] Procedure: XR - Ankle 3 View RT CPT Code: Final Report FULL RESULT: EXAM: RIGHT ANKLE RADIOGRAPHY EXAM DATE: 03/26/2020 12:53 PM. CLINICAL HISTORY: GLF, bilateral malleolus pain, foot pain, edema. COMPARISON: ANKLE 2 VIEW RT 10/20/2019 12:56 PM ANKLE 3 VIEW RT 09/28/2019 3:25 PM. TECHNIQUE: 3 views. FINDINGS: Bones: Patchy osteoporosis. Healed oblique fracture with 4 mm posterior displacement distal fracture fragment. Healed fracture distal shaft fibula. Transverse refracture with mild displacement medial malleolus. Focal osteolysis base fifth metatarsal. Joints: Normal. No effusion. No subluxations. The ankle mortise is normally aligned. Soft Tissues: Diffuse ankle soft tissue swelling. Ulceration lateral ankle. Surgical clips anterior ankle. Surgical clips medial ankle. Negative for soft tissue gas to suggest necrotizing fasciitis. IMPRESSION: 1. Diffuse patchy osteoporosis ankle and foot. 2. Diffuse ankle soft tissue swelling, and there is ulceration lateral ankle. 3. Negative for soft tissue gas to suggest necrotizing fasciitis. 4. Healed fractures distal fibular metaphysis and distal fibular shaft. 5. Probable transverse fracture medial malleolus. 6. Focal osteolysis medial malleolus 1 cm is noted adjacent to a surgical clip AP view of soft tissue swelling. Cannot exclude osteomyelitis. 7. Focal osteolysis base fifth metatarsal. RADIA
--- NOTE | 2020-03-26 13:51 | XRAY Report ---
Reason: GLF, ankle and foot pain w/ edema. Procedure Date: 03/26/2020 Accession Number: [id number] / [id number] Procedure: XR - Foot 3 View RT CPT Code: Final Report FULL RESULT: EXAM: RIGHT FOOT RADIOGRAPHY EXAM DATE: 03/26/2020 12:52 PM. CLINICAL HISTORY: Ground level fall, ankle and foot pain with edema. COMPARISON: ANKLE 3 VIEW RT 03/26/2020 12:53 PM ANKLE 3 VIEW RT 09/28/2019 3:25 PM LEG LOWER RT 09/15/2019 1:14 AM ANKLE 3 VIEW RT 09/26/2019 12:12 PM ANKLE 2 VIEW RT 10/20/2019 12:56 PM. TECHNIQUE: 3 views. FINDINGS: Bones: Diffuse patchy osteoporosis ankle and foot. Well-defined lucent defect calcaneus. Possible prior surgery. Focal osteolysis fifth metatarsal base. Fracture medial malleolus. Healed fracture distal fibular metaphysis. Question expansile lesion posterior process talus lateral view. Joints: Preservation of the subtalar joint. Soft Tissues: Diffuse ankle soft tissue swelling. Moderate increased ankle fluid. Edema or inflammatory changes. Pre-Achilles fat. Diffuse ankle soft tissue swelling. Ulceration lateral ankle. Surgical clips medial ankle. Possible focal osteolysis medial malleolus associated with surgical clip AP view ankle 03/26/2020. IMPRESSION: 1. Osteolysis of fifth metatarsal base. Possible osteomyelitis. 2. Diffuse ankle swelling and moderate ankle joint fluid. 3. Medial malleolus transverse fracture. 4. Lateral ankle soft tissue ulceration. 5. Osteolysis medial malleolus AP view ankle 03/26/2020. Question medial malleolus osteomyelitis. 6. Question expansile lesion posterior process talus lateral view. RADIA
[2020-03-26] MEDS ORDERED: KETOROLAC 60 MG/2 ML VIAL IM STA (13:57)
[2020-03-26 14:34] VITALS: BP 131/81
== END 2020-03-26 14:42 | disposition home or self-care (01) ==
LOC: ED 12:05
DX: M25.571 Pain in right ankle and joints of right foot (principal); G89.29 Other chronic pain; M86.371 Chronic multifocal osteomyelitis, right ankle and foot; Z87.81 Personal history of (healed) traumatic fracture; E10.42 Type 1 diabetes mellitus with diabetic polyneuropathy; F17.200 Nicotine dependence, unspecified, uncomplicated; Z66 Do not resuscitate
CPT/HCPCS: 99283; 99284

== ENCOUNTER 2020-03-29 18:12 | Outpatient (CLI) | payer MEDICARE, MEDICAID | END 2020-03-29 18:13 | disposition critical access hospital (66) | LOC: EMS 18:12 | PROVIDERS: ATTEND Surgery | DX: S09.90XA Unspecified injury of head, initial encounter (principal); M54.2 Cervicalgia; M54.5 Low back pain; R46.4 Slowness and poor responsiveness; W19.XXXA Unspecified fall, initial encounter; Y92.009 Unspecified place in unspecified non-institutional (private) residence as the place of occurrence of the external cause | CPT/HCPCS: A0425; A0429 ==

== ENCOUNTER 2020-03-29 18:33 | Inpatient (IN) | payer MEDICARE, MEDICAID ==
[2020-03-29] MEDS ORDERED: SODIUM CHLORIDE 0.9% 1,000 ML IV ONE ×2 (18:45→19:21)
--- NOTE | 2020-03-29 18:53 | ED Physician Documentation ---
PD HPI MAJOR TRAUMA - Stated complaint Stated Complaint: FALL/ HEAD, NECK PAIN - Chief complaint Chief Complaint: Trauma Ch/Bk - History obtained from History obtained from: Patient (44-year-old woman with poorly controlled type 2 diabetes and multiple sequela from same fell 5 times today. She has been getting dizzy and not passing out though. She hit her neck and hurt her right knee and ankle noting that the ankle has had probably chronic problems from previous fracture.) Review of Systems Constitutional: reports: Fatigue. denies: Fever, Chills Nose: denies: Rhinorrhea / runny nose, Congestion Respiratory: denies: Dyspnea, Cough GI: denies: Abdominal Pain, Nausea, Vomiting PD PAST MEDICAL HISTORY - Past Medical History Cardiovascular: High cholesterol, Murmur Respiratory: COPD, Pneumonia, Shortness of breath Neuro: Headaches, Migraines, Peripheral neuropathy, Seizure disorder, Other Endocrine/Autoimmune: Type 1 diabetes GI: GERD, GI bleed, Ulcers, Other VEGETABLE THINNER: Other : Kidney stones, Other HEENT: Chronic vision loss, Chronic sinusitis Psych: Other Musculoskeletal: Osteoarthritis, Fibromyalgia, Fatigue, Chronic back pain Derm: None - Past Surgical History Past Surgical History: Yes General: Gastric surgery Ortho: Other /VEGETABLE THINNER: section, Endometrial ablation, Tubal ligation - Present Medications Home Medications: Ambulatory Orders Medication Instructions Recorded Confirmed Insulin Lispro [Humalog] 20 - 25 units SQ DAILY 10/30/15 03/23/20 Baclofen 10 mg PO QID PRN 06/03/16 03/23/20 Escitalopram Oxalate [Lexapro] 40 mg PO DAILY 05/22/18 03/23/20 Simvastatin 20 mg PO QPM 05/22/18 03/23/20 Butalb/Acetam/Caff 50/325/40 1 tab PO Q4H PRN 01/22/19 03/23/20 [Fioricet] Prazosin HCl 5 mg PO QPM 01/23/19 03/23/20 Trazodone HCl 200 mg PO QPM 01/23/19 03/23/20 Duloxetine HCl [Cymbalta] 120 mg PO DAILY 09/15/19 03/23/20 Levothyroxine [Synthroid] 112 mcg PO QDAC 09/15/19 03/23/20 Pantoprazole Sodium [Protonix] 20 mg PO QDAC 09/15/19 03/23/20 clonazePAM [Clonazepam] 1 mg PO TID PRN 09/15/19 03/23/20 Ferrous Gluconate 240 mg PO DAILY #30 tablet 09/18/19 03/23/20 Spironolactone 100 mg PO DAILY 10/14/19 03/23/20 oxyCODONE [Roxicodone] 5 mg PO Q4HR PRN 2 Days #10 tablet 03/24/20 Insulin Detemir [Levemir Flextouch] 10 - 12 units SUBQ BID PRN 03/26/20 03/26/20 traMADol [Ultram] 50 mg PO Q4-6H #15 tablet 03/26/20 - Allergies Allergies/Adverse Reactions: Allergies Allergy/AdvReac Type Severity Reaction Status Date / Time carisoprodol [From Soma] Allergy Unknown Verified 03/26/20 12:11 divalproex sodium Allergy Rash Verified 03/26/20 12:11 [From Depakote] gabapentin [From Neurontin] Allergy Edema Verified 03/26/20 12:11 lidocaine Allergy Unknown Verified 03/26/20 12:11 nitrofurantoin Allergy Rash Verified 03/26/20 12:11 macrocrystalline * [From Macrodantin] nortriptyline Allergy Unknown Verified 03/26/20 12:11 ondansetron [From Zofran] Allergy Hives Verified 03/26/20 12:11 ondansetron HCl * Allergy Hives Verified 03/26/20 12:11 [From Zofran (as hydrochloride)] pregabalin [From Lyrica] Allergy Headache Verified 03/26/20 12:11 - Social History Does the pt smoke?: Yes Smoking Status: Current every day smoker Does the pt drink ETOH?: No Does the pt have substance abuse?: No - Immunizations Immunizations are current?: Yes Immunizations: TDAP >10years/unknown - POLST Patient has POLST: No POLST Status: DNR PD ED PE NORMAL - Vitals Vital signs reviewed: Yes - General General: Alert and oriented X 3, No acute distress, Other (Slightly slow to answer question) - HEENT HEENT: Other (Dilated and sluggishly reactive pupils that are symmetric; Slight scrapes on the L cheek and forehead) - Neck Neck: Other (Mild upper C-spine tenderness; Maintained in a collar pending imaging) - Cardiac Cardiac: RRR, No murmur - Respiratory Respiratory: No respiratory distress, Clear bilaterally - Abdomen Abdomen: Non tender, Other (She has an insulin pump in place in the right lower quadrant.) - Back Back: No CVA TTP, No spinal TTP - Extremities Extremities: Other (Mild tenderness of the right knee anteriorly without effusion, no limited range of motion there. The right ankle is in a brace which was removed and is mildly tender but not overtly swollen.) - Neuro Neuro: Alert and oriented X 3, Normal speech Results - Vitals Vitals: Vital Signs - 24 hr 03/29/20 03/29/20 18:42 20:06 Temperature 37.3 C Heart Rate 94 Respiratory 17 17 Rate Blood Pressure 155/81 H 145/82 H O2 Saturation 97 98 Oxygen O2 Source Room air - Labs Labs: Laboratory Tests 03/29/20 03/29/20 03/29/20 18:51 18:51 18:59 WBC 5.7 RBC 4.16 L Hgb 10.8 L Hct 36.0 L MCV 86.5 MCH 26.0 L MCHC 30.0 L RDW 16.4 H Plt Count 388 MPV 10.2 Neut # (Auto) 3.4 Lymph # (Auto) 1.2 L [place] # (Auto) 0.5 Eos # (Auto) 0.6 Baso # (Auto) 0.0 Absolute Nucleated RBC 0.00 Nucleated RBC % 0.0 VBG pH VBG pCO2 VBG pO2 VBG HCO3 VBG Total CO2 VBG O2 Saturation VBG Base Excess Sodium Potassium Chloride Carbon Dioxide Anion Gap BUN Creatinine Estimated GFR (MDRD) Glucose Calcium Total Bilirubin AST ALT Alkaline Phosphatase Total Protein Albumin Globulin Albumin/Globulin Ratio Lipase Urine Color YELLOW Urine Clarity CLEAR Urine pH 6.5 Ur Specific Imogene <=1.005 Urine Protein NEGATIVE Urine Glucose (UA) >=1000 H Urine Ketones NEGATIVE Urine Occult Blood NEGATIVE Urine Nitrite NEGATIVE Urine Bilirubin NEGATIVE Urine Urobilinogen 0.2 (NORMAL) Ur Leukocyte Esterase NEGATIVE Ur Microscopic Review NOT INDICATED Urine Culture Comments NOT INDICATED Urine HCG, Qual NEGATIVE Urine Opiates Screen NEGATIVE Ur Oxycodone Screen NEGATIVE Urine Methadone Screen NEGATIVE Ur Propoxyphene Screen NEGATIVE Ur Barbiturates Screen POSITIVE H Ur Tricyclics Screen NEGATIVE Ur Phencyclidine Scrn NEGATIVE Ur Amphetamine Screen NEGATIVE U Methamphetamines Scrn NEGATIVE U Benzodiazepines Scrn NEGATIVE Urine Cocaine Screen NEGATIVE U Cannabinoids Screen NEGATIVE Ethyl Alcohol Serum Ketones 03/29/20 03/29/20 18:59 18:59 WBC RBC Hgb Hct MCV MCH MCHC RDW Plt Count MPV Neut # (Auto) Lymph # (Auto) [place] # (Auto) Eos # (Auto) Baso # (Auto) Absolute Nucleated RBC Nucleated RBC % VBG pH 7.438 H VBG pCO2 37.2 L VBG pO2 34.7 VBG HCO3 24.6 VBG Total CO2 25.7 VBG O2 Saturation 72.7 VBG Base Excess 0.6 Sodium 124 L Potassium 5.4 H Chloride 91 L Carbon Dioxide 23 Anion Gap 10.0 BUN 15 Creatinine 1.1 H Estimated GFR (MDRD) 53 L Glucose 885 H* Calcium 8.2 L Total Bilirubin 0.8 AST 21 ALT 19 Alkaline Phosphatase 155 H Total Protein 6.7 Albumin 3.5 Globulin 3.2 Albumin/Globulin Ratio 1.1 Lipase 24 Urine Color Urine Clarity Urine pH Ur Specific Imogene Urine Protein Urine Glucose (UA) Urine Ketones Urine Occult Blood Urine Nitrite Urine Bilirubin Urine Urobilinogen Ur Leukocyte Esterase Ur Microscopic Review Urine Culture Comments Urine HCG, Qual Urine Opiates Screen Ur Oxycodone Screen Urine Methadone Screen Ur Propoxyphene Screen Ur Barbiturates Screen Ur Tricyclics Screen Ur Phencyclidine Scrn Ur Amphetamine Screen U Methamphetamines Scrn U Benzodiazepines Scrn Urine Cocaine Screen U Cannabinoids Screen Ethyl Alcohol < 5.0 Serum Ketones SMALL H PD MEDICAL DECISION MAKING - ED course ED course: 44-year-old woman with multiple falls today, profound hyperglycemia but really no evidence of DKA. Her hyperglycemia is at a level which would mandate admission and Dr. Van graciously accepts. Imaging of relevant injuries is without acute findings. In the emergency department she received a bolus of saline as well as twice maintenance fluids and was put on an insulin drip. - Critical Care Time(min): 35 Time Includes: Direct patient care, Review records, Reassess patient, Document care, Coordinate care, Medical consult Data interpretation: Labs, Pulse ox Procedures included in critical care time: Peripheral IV Departure - Departure Disposition: ED Place in Observation Clinical Impression: Weakness, Type 1 diabetes mellitus with complication, uncontrolled Fall as cause of accidental injury at home as place of occurrence Qualifiers: Encounter type: initial encounter Qualified Code(s): W19.XXXA - Unspecified fa ll, initial encounter Ankle pain, right Qualifiers: Chronicity: acute Qualified Code(s): M25.571 - Pain in right ankle and joints of right foot Head injury Qualifiers: Encounter type: initial encounter Qualified Code(s): S09.90XA - Unspecified in jury of head, initial encounter Neck strain Qualifiers: Encounter type: initial encounter Qualified Code(s): S16.1XXA - Strain of muscle, fascia and tendon at neck level, initial encounter Condition: Serious Discharge Date/Time: 03/29/20 21:45
[2020-03-29 19:01] LABS: MUDS CUTOFF CONCENTRATIONS CUTOFF CONC BELOW:
[2020-03-29 19:03] LABS: BILIRUBIN,URINE NEGATIVE (NEGATIVE); GLUCOSE, URINE (UA) >=1000 mg/dL (NEGATIVE); KETONES,URINE (UA) NEGATIVE (NEGATIVE); LEUKOCYTE ESTERASE, URINE NEGATIVE (NEGATIVE); NITRITE,URINE NEGATIVE (NEGATIVE); OCCULT BLOOD,URINE NEGATIVE (NEGATIVE); PH,URINE 6.5 PH (5.0-7.5); PROTEIN,URINE NEGATIVE (NEGATIVE); UROBILINOGEN,URINE 0.2 (NORMAL) E.U./dL (NORMAL)
[2020-03-29 19:04] LABS: BASOPHILS % (AUTO) 0.7 %; EOSINOPHILS # (AUTO) 0.6 10^3/uL (0.0-0.7); EOSINOPHILS % (AUTO) 9.8 %; HGB - HEMOGLOBIN 10.8 g/dL (12.0-16.0); LYMPHOCYTES # (AUTO) 1.2 10^3/uL (1.5-3.5); LYMPHOCYTES % (AUTO) 21.7 %; MEAN CORPUSCULAR VOLUME 86.5 fL (81.0-99.0); MEAN PLATELET VOLUME 10.2 fL (7.9-10.8); MONOCYTES # (AUTO) 0.5 10^3/uL (0.0-1.0); MONOCYTES % (AUTO) 8.2 %; NEUTROPHILS # (AUTO) 3.4 10^3/uL (1.5-6.6); NEUTROPHILS % (AUTO) 59.1 %; PLT - PLATELET COUNT 388 10^3/uL (130-450); RED BLOOD COUNT 4.16 10^6/uL (4.20-5.40); RED CELL DISTRIBUTION WIDTH 16.4 % (12.0-15.0); VBG BASE EXCESS 0.6 mmol/L (-2 - +2); VBG PCO2 37.2 mmHg (41-51); VBG PH 7.438 (7.31-7.41); VBG PO2 34.7 mmHg (25-47); VBG TOTAL CO2 25.7 mmol/L (24-29); WHITE BLOOD COUNT 5.7 x10^3/uL (4.8-10.8)
[2020-03-29 19:04] LABS: CLARITY,URINE CLEAR (CLEAR)
[2020-03-29 19:05] LABS: HCG UR QUAL NEGATIVE
[2020-03-29 19:11] LABS: KETONES, SERUM (ACETEST) SMALL (NEGATIVE)
[2020-03-29 19:17] LABS: ALBUMIN 3.5 g/dL (3.2-5.5); ALBUMIN/GLOBULIN RATIO 1.1 (1.0-2.2); ALKALINE PHOSPHATASE 155 IU/L (42-121); ALT ALANINE AMINOTRANSFERASE 19 IU/L (10-60); AST ASPARTATE AMINOTRANSFERASE 21 IU/L (10-42); BILIRUBIN,TOTAL 0.8 mg/dL (0.2-1.0); BUN - BLOOD UREA NITROGEN 15 mg/dL (6-20); CALCIUM 8.2 mg/dL (8.5-10.3); CARBON DIOXIDE - CO2 23 mmol/L (21-32); CHLORIDE 91 mmol/L (101-111); CREATININE 1.1 mg/dL (0.4-1.0); LIPASE 24 U/L (22-51); SODIUM 124 mmol/L (135-145); TOTAL PROTEIN 6.7 g/dL (6.7-8.2)
[2020-03-29 19:18] LABS: GLUCOSE 885 mg/dL (70-100)
[2020-03-29 19:19] LABS: AMPHETAMINE SCREEN,URINE NEGATIVE (NEGATIVE); BENZODIAZEPINES SCREEN, URINE NEGATIVE (NEGATIVE); COCAINE SCREEN URINE NEGATIVE (NEGATIVE); METHADONE SCREEN, URINE NEGATIVE (NEGATIVE); METHAMPHETAMINES SCREEN, URINE NEGATIVE (NEGATIVE); OPIATE SCREEN, URINE NEGATIVE (NEGATIVE); OXYCODONE SCREEN, URINE NEGATIVE (NEGATIVE); PROPOXYPHENE SCREEN, URINE NEGATIVE (NEGATIVE); TRICYCLIC ANTIDEPRESSANT,URINE NEGATIVE (NEGATIVE)
[2020-03-29] MEDS ORDERED: INSULIN REGULAR HUMAN 100 UNIT in SODIUM CHLORIDE 0.9% 100ML 99 ML IV ONE ×3 (19:21→22:36)
--- NOTE | 2020-03-29 19:35 | CT Report ---
Reason: neck injury Procedure Date: 03/29/2020 Accession Number: [id number] / [id number] Procedure: CT - CERVICAL SPINE WO CPT Code: Final Report FULL RESULT: EXAM: CT HEAD. CT SCAN OF THE CERVICAL SPINE. EXAM DATE: 03/29/2020 07:10 PM. CLINICAL HISTORY: Head inj. COMPARISON: CERVICAL SPINE WO 03/22/2020 9:23 PM HEAD WO 03/22/2020 9:23 PM. TECHNIQUE: Noncontrast axial sections through the head and cervical spine. Reformats: Sagittal and coronal of the head, coronal and sagittal of the cervical spine. In accordance with CT protocol optimization, one or more of the following dose reduction techniques were utilized for this exam: automated exposure control, adjustment of mA and/or KV based on patient size, or use of iterative reconstructive technique. FINDINGS CT HEAD: PARENCHYMA: No acute hemorrhage, transcortical infarction or mass. Normal obyle-white differentiation. EXTRA-AXIAL SPACES: No extra-axial fluid collections. No midline shift. VENTRICLES/SULCI: Normal for patient age. VASCULAR STRUCTURES: Calcifications consistent with atherosclerotic vascular disease. SINUSES: The visible paranasal sinuses and mastoid air cells are unremarkable. ORBITS: Unremarkable. BONES: No displaced acute calvarial fracture. OTHER: None. FINDINGS CT CERVICAL SPINE: ALIGNMENT: Straightening of the normal cervical lordosis. BONES: No acute fracture. The vertebral bodies are normal in height. No suspicious osseous lesions. PARASPINAL SOFT TISSUES: Unremarkable. UPPER CHEST: Unremarkable. DISKS/JOINTS: Mild multilevel disk height loss. No significant facet joint arthropathy. No significant central canal stenosis. IMPRESSION: Head CT: No acute intracranial findings. Cervical Spine CT: No acute fracture or traumatic malalignment. RADIA
--- NOTE | 2020-03-29 19:35 | CT Report ---
Reason: head inj Procedure Date: 03/29/2020 Accession Number: [id number] / [id number] Procedure: CT - HEAD WO CPT Code: Final Report FULL RESULT: EXAM: CT HEAD. CT SCAN OF THE CERVICAL SPINE. EXAM DATE: 03/29/2020 07:10 PM. CLINICAL HISTORY: Head inj. COMPARISON: CERVICAL SPINE WO 03/22/2020 9:23 PM HEAD WO 03/22/2020 9:23 PM. TECHNIQUE: Noncontrast axial sections through the head and cervical spine. Reformats: Sagittal and coronal of the head, coronal and sagittal of the cervical spine. In accordance with CT protocol optimization, one or more of the following dose reduction techniques were utilized for this exam: automated exposure control, adjustment of mA and/or KV based on patient size, or use of iterative reconstructive technique. FINDINGS CT HEAD: PARENCHYMA: No acute hemorrhage, transcortical infarction or mass. Normal boyle-white differentiation. EXTRA-AXIAL SPACES: No extra-axial fluid collections. No midline shift. VENTRICLES/SULCI: Normal for patient age. VASCULAR STRUCTURES: Calcifications consistent with atherosclerotic vascular disease. SINUSES: The visible paranasal sinuses and mastoid air cells are unremarkable. ORBITS: Unremarkable. BONES: No displaced acute calvarial fracture. OTHER: None. FINDINGS CT CERVICAL SPINE: ALIGNMENT: Straightening of the normal cervical lordosis. BONES: No acute fracture. The vertebral bodies are normal in height. No suspicious osseous lesions. PARASPINAL SOFT TISSUES: Unremarkable. UPPER CHEST: Unremarkable. DISKS/JOINTS: Mild multilevel disk height loss. No significant facet joint arthropathy. No significant central canal stenosis. IMPRESSION: Head CT: No acute intracranial findings. Cervical Spine CT: No acute fracture or traumatic malalignment. RADIA
--- NOTE | 2020-03-29 20:38 | XRAY Report ---
Reason: ankle inj Procedure Date: 03/29/2020 Accession Number: [id number] / [id number] Procedure: XR - Ankle 3 View RT CPT Code: Final Report FULL RESULT: EXAM: RIGHT ANKLE RADIOGRAPHY EXAM DATE: 03/29/2020 08:06 PM. CLINICAL HISTORY: Ankle inj. Ground-level fall with right ankle pain. COMPARISON: ANKLE 3 VIEW RT 03/26/2020 12:53 PM. TECHNIQUE: 3 views. FINDINGS: Bones: Healed fracture distal right fibular shaft. Healed fracture distal right femur just above the level of the ankle mortise. Screw tracks in the distal femur, as before. Mildly displaced transverse fracture of the mid medial malleolus without evidence of solid osseous union, unchanged. Screw tract extending to the posterior malleolus without evidence of residual fracture. 2 x 1 cm sclerotic margined lucency in the calcaneal tuberosity which may reflect a prior fixator screw location. Joints: Probable small ankle joint effusion. No marisela ankle mortise widening. No subluxation. Soft Tissues: Mild diffuse soft tissue swelling at the ankle. IMPRESSION: 1. No new findings. 2. Incompletely healed medial malleolus fracture. 3. Distal shaft fibular and lateral malleolar healed fractures. RADIA
--- NOTE | 2020-03-29 20:42 | XRAY Report ---
Reason: knee inj Procedure Date: 03/29/2020 Accession Number: [id number] / [id number] Procedure: XR - Knee 4 View RT CPT Code: Final Report FULL RESULT: EXAM: RIGHT KNEE RADIOGRAPHY EXAM DATE: 03/29/2020 08:06 PM. CLINICAL HISTORY: Right knee pain after ground-level fall today COMPARISON: None. TECHNIQUE: 4 views. FINDINGS: Bones: Healed fracture deformity of the proximal tibia, post hardware removal. No acute fracture. Joints: Normal alignment. Joint spaces are maintained. A trace suprapatellar effusion is present. Soft Tissues: Normal. No evident focal soft tissue swelling. IMPRESSION: 1. Healed fracture deformity of the proximal tibia. 2. Trace knee effusion. 3. No acute bony abnormality. RADIA
[2020-03-29] MEDS ORDERED: SODIUM CHLORIDE FLUSH 0.9% 10 ML SYRINGE IVP PRN (20:50)
[2020-03-29] MEDS ORDERED: ONDANSETRON 4 MG/2 ML VIAL IVP PRN (20:50)
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
[2020-03-29] MEDS: SODIUM CHLORIDE 0.9% 1,000 ML IV SCH (22:15)
[2020-03-29 22:16] LABS: CALCIUM 8.5 mg/dL (8.5-10.3); CREATININE 1.1 mg/dL (0.4-1.0)
[2020-03-29] MEDS: ACETAMINOPHEN 325 MG TABLET PO PRN (22:43)
[2020-03-29] MEDS: oxyCODONE 5 MG TABLET PO PRN (22:43)
[2020-03-29] MEDS: BUTALB/ACETAM/CAFF 50/325/40MG TABLET PO PRN (23:37)
[2020-03-29] MEDS: clonazePAM 0.5 MG TABLET PO PRN (23:38)
[2020-03-30] MEDS: traZODone 50 MG TABLET PO SCH ×2 (00:31→20:59)
[2020-03-30] MEDS: DEXTROSE 5%-0.45% NACL 1,000 ML IV SCH ×3 (01:23→12:20)
[2020-03-30] MEDS: SODIUM CHLORIDE FLUSH 0.9% 10 ML SYRINGE IVP SCH ×3 (01:24→17:23)
[2020-03-30] MEDS: oxyCODONE 5 MG TABLET PO PRN ×3 (04:10→17:23)
[2020-03-30 05:17] LABS: BASOPHILS # (AUTO) 0.1 10^3/uL (0.0-0.1); BASOPHILS % (AUTO) 0.8 %; EOSINOPHILS # (AUTO) 0.7 10^3/uL (0.0-0.7); EOSINOPHILS % (AUTO) 8.2 %; HGB - HEMOGLOBIN 10.1 g/dL (12.0-16.0); LYMPHOCYTES # (AUTO) 2.9 10^3/uL (1.5-3.5); LYMPHOCYTES % (AUTO) 34.5 %; MEAN CORPUSCULAR HEMOGLOBIN 25.3 pg (27.0-31.0); MEAN CORPUSCULAR HGB CONC 30.1 g/dL (32.0-36.0); MEAN PLATELET VOLUME 9.8 fL (7.9-10.8); MONOCYTES # (AUTO) 0.8 10^3/uL (0.0-1.0); MONOCYTES % (AUTO) 9.3 %; NEUTROPHILS # (AUTO) 3.9 10^3/uL (1.5-6.6); NEUTROPHILS % (AUTO) 46.8 %; PLT - PLATELET COUNT 407 10^3/uL (130-450); RED BLOOD COUNT 3.99 10^6/uL (4.20-5.40); RED CELL DISTRIBUTION WIDTH 15.8 % (12.0-15.0); WHITE BLOOD COUNT 8.3 x10^3/uL (4.8-10.8)
[2020-03-30 05:19] LABS: CALCIUM 8.5 mg/dL (8.5-10.3); CREATININE 0.6 mg/dL (0.4-1.0); MAGNESIUM 2.3 mg/dL (1.7-2.8)
[2020-03-30 05:56] LABS: ALBUMIN 3.1 g/dL (3.2-5.5); PHOSPHORUS 4.1 mg/dL (2.5-4.6)
[2020-03-30] MEDS: LEVOTHYROXINE 112 MCG TABLET PO SCH (06:56)
[2020-03-30] MEDS ORDERED: POTASSIUM CHLORIDE 20 MEQ TABLET PO SCH (07:40)
--- NOTE | 2020-03-30 09:22 | PHARMACY PROGRESS NOTE ---
- Best Possible Medication History Admit Date and Time: 03/29/202049 Processed by: Pharmacy Medication History completed: In progress Patient Interview: Pt unable to participate Secondary Source(s): Prescription bottles (UNABLE TO DETERMINE INSULIN PUMP SETTINGS FOR NOVOLOG), Pharmacy records, Insurance records As the person ultimately responsible for medication therapy, providers are able to order a medication from an existing home medication list in [facility] via the "Reconcile Routine" prior to Confirmation of that medication by computer customer support specialist. Such practice is discouraged except when the physician, in their clinical judgment, deems that a medical need exists for a medication without regard to previous use.
[2020-03-30] MEDS: polyethylene glycoL 3350 17 GM PACKET PO SCH (09:27)
[2020-03-30] MEDS: DULoxetine 30 MG CAPSULE PO SCH (09:29)
[2020-03-30] MEDS: ESCITALOPRAM 10 MG TABLET PO SCH (09:29)
[2020-03-30] MEDS: INSULIN ASPART 300 UNIT/3 ML PEN SUBQ SCH ×4 (09:51→21:01)
[2020-03-30 10:01] LABS: HB2 TOTAL 10.7 g/dL; HEMOGLOBIN A1C 0.79 g/dL; HEMOGLOBIN A1C % 8.9 % (4.6-6.2)
[2020-03-30] MEDS: BUTALB/ACETAM/CAFF 50/325/40MG TABLET PO PRN (10:53)
[2020-03-30] MEDS: clonazePAM 0.5 MG TABLET PO PRN ×2 (12:04→19:35)
[2020-03-30] MEDS: ACETAMINOPHEN 325 MG TABLET PO PRN ×2 (12:04→16:26)
--- NOTE | 2020-03-30 16:21 | PROVIDER PROGRESS NOTE ---
Assessment/Plan - Problem List (1) Diabetes mellitus with hyperglycemia Assessment/Plan: Her glu is better controlled (but very labile). Will transfer out of ICU since she is off the Insulin drip. The pt tried and her ICU nurse tried to get her Insulin Pump to restart and it is not working. We tried to reach the Diabetic Nurse from [facility], to help, but she is not available (this is a weekend). The patient does not have sq Insulin to use, states she cannot remember how to restart the pump and there is no Home Health visit from a nurse possible today either to help her with that, since it is a weekend and they cannot be reached by . I will make the patient Inpatient status, therefore, as she does not have a safe discharge for diabetic management, until the Insulin Pump can be restarted. (2) Brittle diabetes Assessment/Plan: There is a history of very labile glu results and the patient does get obtunded with low glucoses. Will make her an Inpt for further close DM management. (3) Mechanical breakdown of insulin pump Qualifiers: Encounter type: sequela Qualified Code(s): T85.614S - Breakdown (mechanical) of insulin pump, sequela Assessment/Plan: As in #1 (4) Fall at home Qualifiers: Encounter type: subsequent encounter Qualified Code(s): W19.XXXD - Unspecified fall, subsequent encounter; Y92.009 - Unspecified place in unspecified non-institutional (private) residence as the place of occurrence of the external cause Assessment/Plan: She told the admitting providers that she fell once outside when the dog pulled her and a second time indoors. She told the protective services social worker that there were 5 falls. When the protective services social worker asked her if there should be a different activity, such as compliance with her front wheel walker or not letting the dog's leash tugged on her, the patient answered that there is no need to change what she does at home. I will request a cognitive evaluation by occupational therapist when they are here on Wednesday (today is Wednesday) to see if she might have cognitive impairment, to explain such behavior. The patient requests higher pain meds, including Morphine. There is a Hx of narcotic seeking behavior, during past admissions. Our pharmacist was able to confirm that she has been titrated off all pain meds containing narcotics over the past few mos. The pt does have bruising around the L eye and after 4 falls at home, some minimal Oxycodone will be allowed while here. (5) Hypothyroidism Assessment/Plan: Continue her thyroid dose. (6) Non-compliance with treatment Assessment/Plan: She was just here 1 week ago due to the same problem as now and got an appointment arranged to go to the [facility] clinic diabetic specialist. The patient already told that hospitalist that she would not come to the appointment. I will request a cognitive evaluation by occupational therapist when they are h ere on Wednesday (today is Wednesday) to see if she might have cognitive impairment, to explain her behavior, since it appears she makes poor decisions. (7) Neurogenic bladder Assessment/Plan: As per Hx, she gets urinary retention. (8) Hyperlipidemia Assessment/Plan: Her home meds continue. (9) Depression Assessment/Plan: Continue with psychotropic medications if needed. I will request a cognitive evaluation by occupational therapist when they are here on Wednesday (today is Wednesday) to see if she might have cognitive impairment, to explain her behavior since it appears she makes poor decisions. - Current Meds Current Meds: Current Medications Generic Name Dose Route Start Last Admin Trade Name Freq PRN Reason Stop Dose Admin Acetaminophen 650 mg 03/29/20 20:50 03/30/20 12:04 Tylenol PO 650 mg Q6HR PRN Administration Pain 1 to 4 Acetaminophen/Butalbital/Caffeine 1 tab 03/29/20 23:15 03/30/20 10:53 Fioricet PO 1 tab Q4H PRN Administration SEVERE HEADACHE Clonazepam 1 mg 03/29/20 23:23 03/30/20 12:04 Klonopin PO 1 mg TID PRN Administration ANXIETY Duloxetine HCl 120 mg 03/30/20 09:00 03/30/20 09:29 Cymbalta PO 120 mg DAILY SHELL Administration Escitalopram Oxalate 40 mg 03/30/20 09:00 03/30/20 09:29 Lexapro PO 40 mg DAILY SHELL Administration Sodium Chloride 1,000 mls @ 125 mls/hr 03/29/20 22:00 03/30/20 01:24 Normal Saline 0.9% IV 0 mls/hr .Q8H SHELL Infusion Dextrose/Sodium Chloride 1,000 mls @ 60 mls/hr 03/30/20 12:10 03/30/20 12:20 D5.45ns IV 60 mls/hr .[id number] SHELL Administration Insulin Aspart 1 - 9 unit 03/30/20 09:30 03/30/20 12:14 Novolog SUBQ 9 unit 0800,1200,1700,2100 SHELL Administration Protocol Levothyroxine Sodium 112 mcg 03/30/20 07:00 03/30/20 06:56 Synthroid PO 112 mcg QDAC SHELL Administration Polyethylene Glycol 17 gm 03/30/20 09:00 03/30/20 09:27 Miralax PO 17 gm DAILY SHELL Administration Sodium Chloride 10 ml 03/30/20 01:00 03/30/20 12:04 Normal Saline Flush 0.9% IVP 10 ml 0100,0900,1700 SHELL Administration Trazodone HCl 200 mg 03/30/20 00:14 03/30/20 00:31 Desyrel PO 200 mg QPM SHELL Administration - Lab Result Fish Bone Diagrams: 04/01/20 05:25 03/31/20 05:20 - Additional Planning My Orders: My Active Orders 03/30/20 Home Health Referral [CONS] Routine Evaluate and Treat OT [OT] Routine Evaluate and Treat PT [PT] Routine 03/30/20 08:55 Miscellaenous Nursing Order [RC] ONCE 03/30/20 09:30 Insulin Aspart [NovoLOG] 1 - 9 unit SUBQ 0800,1200,1700,2100 03/30/20 10:27 oxyCODONE [Roxicodone] 5 mg PO Q8HR PRN 03/30/20 12:10 Dextrose 5%-0.45% NaCl [D5.45ns] 1,000 ml IV 60 mls/hr 03/30/20 21:00 Insulin Glargine [Lantus Solostar] 8 unit SUBQ BID Subjective - Subjective Patient Reports: Other (Asks for higher doses of pain meds from her RN, reports her "pain at 8/10", but appears comfortable and in no distress.) Objective Vital Signs: Vital Signs - 24 hr 03/29/20 03/29/20 03/29/20 18:42 20:06 21:08 Temperature 37.3 C Heart Rate 94 95 Heart Rate [ Monitoring electrodes] Respiratory 17 17 16 Rate Blood Pressure 155/81 H 145/82 H 140/85 H Blood Pressure [Left Brachial artery] O2 Saturation 97 98 100 03/29/20 03/29/20 03/29/20 21:52 21:53 21:54 Temperature Heart Rate 99 96 Heart Rate [ Monitoring electrodes] Respiratory 17 27 H 19 Rate Blood Pressure 122/79 Blood Pressure [Left Brachial artery] O2 Saturation 03/29/20 03/29/20 03/29/20 21:55 22:00 22:01 Temperature 37 C Heart Rate 98 96 97 Heart Rate [ Monitoring electrodes] Respiratory 22 25 H 22 Rate Blood Pressure 112/83 H Blood Pressure [Left Brachial artery] O2 Saturation 03/29/20 03/29/20 03/29/20 22:05 22:10 22:15 Temperature Heart Rate 102 H 102 H 96 Heart Rate [ Monitoring electrodes] Respiratory 18 24 24 Rate Blood Pressure Blood Pressure [Left Brachial artery] O2 Saturation 03/29/20 03/29/20 03/29/20 22:20 22:25 22:30 Temperature Heart Rate 92 93 101 H Heart Rate [ Monitoring electrodes] Respiratory 26 H 20 25 H Rate Blood Pressure Blood Pressure [Left Brachial artery] O2 Saturation 03/29/20 03/29/20 03/29/20 22:35 22:40 22:45 Temperature Heart Rate 70 90 84 Heart Rate [ Monitoring electrodes] Respiratory 20 19 21 Rate Blood Pressure Blood Pressure [Left Brachial artery] O2 Saturation 03/29/20 03/29/20 03/29/20 22:50 22:55 23:00 Temperature Heart Rate 88 89 89 Heart Rate [ 89 Monitoring electrodes] Respiratory 23 24 18 Rate Blood Pressure Blood Pressure 106/89 H [Left Brachial artery] O2 Saturation 100 03/29/20 03/29/20 03/29/20 23:05 23:06 23:10 Temperature Heart Rate 89 91 88 Heart Rate [ Monitoring electrodes] Respiratory 22 19 17 Rate Blood Pressure 106/89 H Blood Pressure [Left Brachial artery] O2 Saturation 03/29/20 03/29/20 03/29/20 23:15 23:20 23:25 Temperature Heart Rate 91 88 89 Heart Rate [ Monitoring electrodes] Respiratory 19 19 20 Rate Blood Pressure Blood Pressure [Left Brachial artery] O2 Saturation 03/29/20 03/29/20 03/29/20 23:30 23:35 23:40 Temperature Heart Rate 87 89 87 Heart Rate [ Monitoring electrodes] Respiratory 19 17 20 Rate Blood Pressure Blood Pressure [Left Brachial artery] O2 Saturation 03/29/20 03/29/20 03/29/20 23:45 23:50 23:55 Temperature Heart Rate 89 90 97 Heart Rate [ Monitoring electrodes] Respiratory 18 23 23 Rate Blood Pressure Blood Pressure [Left Brachial artery] O2 Saturation 03/30/20 03/30/20 03/30/20 00:00 00:01 00:05 Temperature 37.0 C Heart Rate 89 90 94 Heart Rate [ 89 Monitoring electrodes] Respiratory 22 24 19 Rate Blood Pressure 111/75 Blood Pressure 111/75 [Left Brachial artery] O2 Saturation 96 03/30/20 03/30/20 03/30/20 00:10 00:15 00:20 Temperature Heart Rate 90 87 87 Heart Rate [ Monitoring electrodes] Respiratory 19 13 22 Rate Blood Pressure Blood Pressure [Left Brachial artery] O2 Saturation 03/30/20 03/30/20 03/30/20 00:25 00:30 00:35 Temperature Heart Rate 100 90 84 Heart Rate [ Monitoring electrodes] Respiratory 26 H 31 H 22 Rate Blood Pressure Blood Pressure [Left Brachial artery] O2 Saturation 03/30/20 03/30/20 03/30/20 00:40 00:45 00:50 Temperature Heart Rate 84 86 94 Heart Rate [ Monitoring electrodes] Respiratory 19 18 19 Rate Blood Pressure Blood Pressure [Left Brachial artery] O2 Saturation 03/30/20 03/30/20 03/30/20 00:55 01:00 01:01 Temperature 36.6 C Heart Rate 88 99 91 Heart Rate [ 91 Monitoring electrodes] Respiratory 16 25 H 21 Rate Blood Pressure 108/60 Blood Pressure 104/60 [Left Brachial artery] O2 Saturation 96 03/30/20 03/30/20 03/30/20 01:05 01:10 01:15 Temperature Heart Rate 87 88 88 Heart Rate [ Monitoring electrodes] Respiratory 19 17 15 Rate Blood Pressure Blood Pressure [Left Brachial artery] O2 Saturation 03/30/20 03/30/20 03/30/20 01:20 01:25 01:30 Temperature Heart Rate 87 89 89 Heart Rate [ Monitoring electrodes] Respiratory 15 15 15 Rate Blood Pressure Blood Pressure [Left Brachial artery] O2 Saturation 03/30/20 03/30/20 03/30/20 01:35 01:40 01:45 Temperature Heart Rate 89 89 90 Heart Rate [ Monitoring electrodes] Respiratory 16 14 19 Rate Blood Pressure Blood Pressure [Left Brachial artery] O2 Saturation 03/30/20 03/30/20 03/30/20 01:50 01:55 02:00 Temperature Heart Rate 92 90 88 Heart Rate [ Monitoring electrodes] Respiratory 15 17 22 Rate Blood Pressure Blood Pressure [Left Brachial artery] O2 Saturation 03/30/20 03/30/20 03/30/20 02:01 02:05 02:10 Temperature Heart Rate 95 96 97 Heart Rate [ Monitoring electrodes] Respiratory 18 12 21 Rate Blood Pressure 106/69 Blood Pressure [Left Brachial artery] O2 Saturation 03/30/20 03/30/20 03/30/20 02:14 02:15 02:20 Temperature Heart Rate 90 92 Heart Rate [ 87 Monitoring electrodes] Respiratory 14 15 16 Rate Blood Pressure Blood Pressure 106/69 [Left Brachial artery] O2 Saturation 98 03/30/20 03/30/20 03/30/20 02:25 02:30 02:35 Temperature Heart Rate 88 85 83 Heart Rate [ Monitoring electrodes] Respiratory 17 16 16 Rate Blood Pressure Blood Pressure [Left Brachial artery] O2 Saturation 03/30/20 03/30/20 03/30/20 02:40 02:45 02:50 Temperature Heart Rate 81 82 82 Heart Rate [ Monitoring electrodes] Respiratory 16 30 H 16 Rate Blood Pressure Blood Pressure [Left Brachial artery] O2 Saturation 03/30/20 03/30/20 03/30/20 02:55 03:00 03:01 Temperature Heart Rate 83 78 81 Heart Rate [ 80 Monitoring electrodes] Respiratory 15 15 14 Rate Blood Pressure 92/61 Blood Pressure 92/61 [Left Brachial artery] O2 Saturation 95 03/30/20 03/30/20 03/30/20 03:05 03:10 03:15 Temperature Heart Rate 80 80 80 Heart Rate [ Monitoring electrodes] Respiratory 15 17 18 Rate Blood Pressure Blood Pressure [Left Brachial artery] O2 Saturation 03/30/20 03/30/20 03/30/20 03:20 03:25 03:30 Temperature Heart Rate 79 79 77 Heart Rate [ Monitoring electrodes] Respiratory 15 16 23 Rate Blood Pressure Blood Pressure [Left Brachial artery] O2 Saturation 03/30/20 03/30/20 03/30/20 03:35 03:40 03:45 Temperature Heart Rate 76 76 77 Heart Rate [ Monitoring electrodes] Respiratory 13 15 16 Rate Blood Pressure Blood Pressure [Left Brachial artery] O2 Saturation 03/30/20 03/30/20 03/30/20 03:50 03:55 04:00 Temperature Heart Rate 78 77 74 Heart Rate [ Monitoring electrodes] Respiratory 14 14 17 Rate Blood Pressure Blood Pressure [Left Brachial artery] O2 Saturation 03/30/20 03/30/20 03/30/20 04:05 04:10 04:15 Temperature Heart Rate 74 83 82 Heart Rate [ 81 Monitoring electrodes] Respiratory 13 14 22 Rate Blood Pressure Blood Pressure 99/68 [Left Brachial artery] O2 Saturation 97 03/30/20 03/30/20 03/30/20 04:16 04:20 04:25 Temperature Heart Rate 79 78 80 Heart Rate [ Monitoring electrodes] Respiratory 13 16 16 Rate Blood Pressure 99/68 Blood Pressure [Left Brachial artery] O2 Saturation 03/30/20 03/30/20 03/30/20 04:30 04:35 04:40 Temperature Heart Rate 82 80 79 Heart Rate [ Monitoring electrodes] Respiratory 15 16 16 Rate Blood Pressure Blood Pressure [Left Brachial artery] O2 Saturation 03/30/20 03/30/20 03/30/20 04:45 04:50 04:55 Temperature Heart Rate 78 75 75 Heart Rate [ Monitoring electrodes] Respiratory 12 17 15 Rate Blood Pressure Blood Pressure [Left Brachial artery] O2 Saturation 03/30/20 03/30/20 03/30/20 05:00 05:01 05:05 Temperature Heart Rate 78 80 77 Heart Rate [ Monitoring electrodes] Respiratory 12 13 15 Rate Blood Pressure 106/74 Blood Pressure [Left Brachial artery] O2 Saturation 03/30/20 03/30/20 03/30/20 05:10 05:15 06:00 Temperature Heart Rate 79 78 77 Heart Rate [ Monitoring electrodes] Respiratory 13 15 13 Rate Blood Pressure Blood Pressure [Left Brachial artery] O2 Saturation 03/30/20 03/30/20 03/30/20 06:01 07:00 07:01 Temperature Heart Rate 78 89 81 Heart Rate [ Monitoring electrodes] Respiratory 13 24 17 Rate Blood Pressure 107/69 106/57 L Blood Pressure [Left Brachial artery] O2 Saturation 03/30/20 03/30/20 03/30/20 08:00 08:01 09:00 Temperature 36.7 C Heart Rate 78 78 80 Heart Rate [ 79 Monitoring electrodes] Respiratory 16 15 21 Rate Blood Pressure 108/72 Blood Pressure 108/72 [Left Brachial artery] O2 Saturation 95 03/30/20 03/30/20 03/30/20 09:01 10:00 10:04 Temperature Heart Rate 81 93 93 Heart Rate [ Monitoring electrodes] Respiratory 21 21 22 Rate Blood Pressure 113/73 115/79 Blood Pressure [Left Brachial artery] O2 Saturation 03/30/20 03/30/20 03/30/20 11:00 11:08 11:09 Temperature Heart Rate 100 92 91 Heart Rate [ 90 Monitoring electrodes] Respiratory 17 27 H 25 H Rate Blood Pressure 116/72 Blood Pressure 116/72 [Left Brachial artery] O2 Saturation 99 03/30/20 03/30/20 03/30/20 12:00 12:01 13:00 Temperature 36.6 C Heart Rate 88 86 89 Heart Rate [ 86 91 Monitoring electrodes] Respiratory 25 H 24 23 Rate Blood Pressure 119/66 Blood Pressure 119/66 104/60 [Left Brachial artery] O2 Saturation 98 96 03/30/20 03/30/20 03/30/20 13:01 14:00 14:03 Temperature Heart Rate 90 83 83 Heart Rate [ Monitoring electrodes] Respiratory 18 23 19 Rate Blood Pressure 104/60 Blood Pressure [Left Brachial artery] O2 Saturation 03/30/20 03/30/20 03/30/20 14:04 15:00 15:57 Temperature 36.8 C Heart Rate 83 Heart Rate [ 84 77 Monitoring electrodes] Respiratory 24 21 17 Rate Blood Pressure 106/66 Blood Pressure 105/63 105/63 [Left Brachial artery] O2 Saturation 96 96 Oxygen O2 Source Room air I&O (Last 24 Hrs): Intake and Output Totals x24h 03/28/20 03/29/20 03/30/20 23:59 23:59 23:59 Intake Total 5992.992 1223.05 Output Total 1350 2075 Balance 191.819 5315.05 General: Alert HEENT: Mucous membr. moist/pink, Other (Eccymosis without swelling, around L eye noted.) Neck: Supple Neuro: Alert, Non Focal Cardiovascular: Regular rate Respiratory: No respiratory distress, Breath sounds nml Abdomen: Normal bowel sounds, Soft Extremities: Other (R leg in splint) - Results Results: Laboratory Results WBC 8.3 x10^3/uL (4.8-10.8) 03/30/20 04:25 RBC 3.99 10^6/uL (4.20-5.40) L 03/30/20 04:25 Hgb 10.1 g/dL (12.0-16.0) L 03/30/20 04:25 Hct 33.5 % (37.0-47.0) L 03/30/20 04:25 MCV 84.0 fL (81.0-99.0) 03/30/20 04:25 MCH 25.3 pg (27.0-31.0) L 03/30/20 04:25 MCHC 30.1 g/dL (32.0-36.0) L 03/30/20 04:25 RDW 15.8 % (12.0-15.0) H 03/30/20 04:25 Plt Count 407 10^3/uL (130-450) 03/30/20 04:25 MPV 9.8 fL (7.9-10.8) 03/30/20 04:25 Neut # (Auto) 3.9 10^3/uL (1.5-6.6) 03/30/20 04:25 Lymph # (Auto) 2.9 10^3/uL (1.5-3.5) 03/30/20 04:25 [place] # (Auto) 0.8 10^3/uL (0.0-1.0) 03/30/20 04:25 Eos # (Auto) 0.7 10^3/uL (0.0-0.7) 03/30/20 04:25 Baso # (Auto) 0.1 10^3/uL (0.0-0.1) 03/30/20 04:25 Absolute Nucleated RBC 0.00 x10^3/uL 03/30/20 04:25 Nucleated RBC % 0.0 /100WBC 03/30/20 04:25 VBG pH 7.438 (7.31-7.41) H 03/29/20 18:59 VBG pCO2 37.2 mmHg (41-51) L 03/29/20 18:59 VBG pO2 34.7 mmHg (25-47) 03/29/20 18:59 VBG HCO3 24.6 mmol/L (23-28) 03/29/20 18:59 VBG Total CO2 25.7 mmol/L (24-29) 03/29/20 18:59 VBG O2 Saturation 72.7 % (60-80) 03/29/20 18:59 VBG Base Excess 0.6 mmol/L (-2 - +2) 03/29/20 18:59 Sodium 138 mmol/L (135-145) 03/30/20 04:25 Potassium 3.5 mmol/L (3.5-5.0) 03/30/20 04:25 Chloride 105 mmol/L (101-111) 03/30/20 04:25 Carbon Dioxide 26 mmol/L (21-32) 03/30/20 04:25 Anion Gap 7.0 (6-13) 03/30/20 04:25 BUN 9 mg/dL (6-20) 03/30/20 04:25 Creatinine 0.6 mg/dL (0.4-1.0) 03/30/20 04:25 Estimated GFR (MDRD) 108 (>89) 03/30/20 04:25 Glucose 82 mg/dL (70-100) 03/30/20 04:25 Glycated Hemoglobin 8.9 % (4.6-6.2) H 03/30/20 04:25 Estim Average Glucose 209 (70-100) H 03/30/20 04:25 Calcium 8.5 mg/dL (8.5-10.3) 03/30/20 04:25 Phosphorus 4.1 mg/dL (2.5-4.6) 03/30/20 04:25 Magnesium 2.3 mg/dL (1.7-2.8) 03/30/20 04:25 Total Bilirubin 0.8 mg/dL (0.2-1.0) 03/29/20 18:59 AST 21 IU/L (10-42) 03/29/20 18:59 ALT 19 IU/L (10-60) 03/29/20 18:59 Alkaline Phosphatase 155 IU/L (42-121) H 03/29/20 18:59 Total Protein 6.7 g/dL (6.7-8.2) 03/29/20 18:59 Albumin 3.1 g/dL (3.2-5.5) L 03/30/20 04:25 Globulin 3.2 g/dL (2.1-4.2) 03/29/20 18:59 Albumin/Globulin Ratio 1.1 (1.0-2.2) 03/29/20 18:59 Lipase 24 U/L (22-51) 03/29/20 18:59 Urine Color YELLOW 03/29/20 18:51 Urine Clarity CLEAR (CLEAR) 03/29/20 18:51 Urine pH 6.5 PH (5.0-7.5) 03/29/20 18:51 Ur Specific [place] <=1.005 (1.002-1.030) 03/29/20 18:51 Urine Protein NEGATIVE mg/dL (NEGATIVE) 03/29/20 18:51 Urine Glucose (UA) >=1000 mg/dL (NEGATIVE) H 03/29/20 18:51 Urine Ketones NEGATIVE mg/dL (NEGATIVE) 03/29/20 18:51 Urine Occult Blood NEGATIVE (NEGATIVE) 03/29/20 18:51 Urine Nitrite NEGATIVE (NEGATIVE) 03/29/20 18:51 Urine Bilirubin NEGATIVE (NEGATIVE) 03/29/20 18:51 Urine Urobilinogen 0.2 (NORMAL) E.U./dL (NORMAL) 03/29/20 18:51 Ur Leukocyte Esterase NEGATIVE (NEGATIVE) 03/29/20 18:51 Ur Microscopic Review NOT INDICATED 03/29/20 18:51 Urine Culture Comments NOT INDICATED 03/29/20 18:51 Urine HCG, Qual NEGATIVE 03/29/20 18:51 Nasal Screen MRSA (PCR) POSITIVE (NEGATIVE) A* 03/29/20 21:50 Urine Opiates Screen NEGATIVE (NEGATIVE) 03/29/20 18:51 Ur Oxycodone Screen NEGATIVE (NEGATIVE) 03/29/20 18:51 Urine Methadone Screen NEGATIVE (NEGATIVE) 03/29/20 18:51 Ur Propoxyphene Screen NEGATIVE (NEGATIVE) 03/29/20 18:51 Ur Barbiturates Screen POSITIVE (NEGATIVE) H 03/29/20 18:51 Ur Tricyclics Screen NEGATIVE (NEGATIVE) 03/29/20 18:51 Ur Phencyclidine Scrn NEGATIVE (NEGATIVE) 03/29/20 18:51 Ur Amphetamine Screen NEGATIVE (NEGATIVE) 03/29/20 18:51 U Methamphetamines Scrn NEGATIVE (NEGATIVE) 03/29/20 18:51 U Benzodiazepines Scrn NEGATIVE (NEGATIVE) 03/29/20 18:51 Urine Cocaine Screen NEGATIVE (NEGATIVE) 03/29/20 18:51 U Cannabinoids Screen NEGATIVE (NEGATIVE) 03/29/20 18:51 Ethyl Alcohol < 5.0 mg/dL 03/29/20 18:59 Serum Ketones SMALL (NEGATIVE) H 03/29/20 18:59 - Procedures Procedures: Procedures EXCISION OF STOMACH, ENDO, DIAGN (05/24/18) INSPECTION OF LOWER INTESTINAL TRACT, ENDO (05/24/18) REPOSITION RIGHT FIBULA WITH INT FIX, OPEN APPROACH (09/15/19) REPOSITION RIGHT TIBIA WITH INT FIX, OPEN APPROACH (09/15/19) TRANSFUSE NONAUT RED BLOOD CELLS IN PERIPH VEIN, PERC (09/15/19)
[2020-03-30] MEDS: BACLOFEN 10 MG TABLET PO PRN (18:47)
[2020-03-30] MEDS ORDERED: traZODone 50 MG TABLET PO SCH (21:00)
[2020-03-30] MEDS: INSULIN GLARGINE 300 UNIT/3 ML PEN SUBQ SCH (21:07)
[2020-03-30] MEDS: ATORVASTATIN 10 MG TABLET PO SCH (21:07)
[2020-03-30] MEDS: SODIUM CHLORIDE 0.9% 1,000 ML IV SCH (23:40)
[2020-03-31] MEDS: SODIUM CHLORIDE 0.9% 1,000 ML IV SCH ×2 (00:05→02:31)
[2020-03-31] MEDS: SODIUM CHLORIDE FLUSH 0.9% 10 ML SYRINGE IVP SCH ×3 (02:30→16:05)
[2020-03-31] MEDS: DEXTROSE 5%-0.45% NACL 1,000 ML IV SCH ×2 (05:14→21:09)
[2020-03-31 05:45] LABS: BASOPHILS # (AUTO) 0.1 10^3/uL (0.0-0.1); BASOPHILS % (AUTO) 0.9 %; EOSINOPHILS # (AUTO) 0.7 10^3/uL (0.0-0.7); EOSINOPHILS % (AUTO) 12.6 %; HGB - HEMOGLOBIN 10.2 g/dL (12.0-16.0); LYMPHOCYTES # (AUTO) 1.6 10^3/uL (1.5-3.5); LYMPHOCYTES % (AUTO) 28.2 %; MEAN CORPUSCULAR HEMOGLOBIN 25.9 pg (27.0-31.0); MEAN CORPUSCULAR HGB CONC 30.7 g/dL (32.0-36.0); MEAN CORPUSCULAR VOLUME 84.3 fL (81.0-99.0); MEAN PLATELET VOLUME 9.7 fL (7.9-10.8); MONOCYTES # (AUTO) 0.5 10^3/uL (0.0-1.0); MONOCYTES % (AUTO) 9.5 %; NEUTROPHILS # (AUTO) 2.8 10^3/uL (1.5-6.6); NEUTROPHILS % (AUTO) 48.4 %; PLT - PLATELET COUNT 389 10^3/uL (130-450); RED BLOOD COUNT 3.94 10^6/uL (4.20-5.40); WHITE BLOOD COUNT 5.7 x10^3/uL (4.8-10.8)
[2020-03-31 05:51] LABS: CALCIUM 8.4 mg/dL (8.5-10.3); CREATININE 0.7 mg/dL (0.4-1.0); MAGNESIUM 2.3 mg/dL (1.7-2.8)
[2020-03-31] MEDS: oxyCODONE 5 MG TABLET PO PRN ×2 (06:43→16:05)
[2020-03-31] MEDS: ACETAMINOPHEN 325 MG TABLET PO PRN ×3 (06:45→21:08)
[2020-03-31] MEDS: LEVOTHYROXINE 112 MCG TABLET PO SCH (06:45)
[2020-03-31] MEDS: BACLOFEN 10 MG TABLET PO PRN ×3 (06:52→21:08)
[2020-03-31] MEDS: INSULIN ASPART 300 UNIT/3 ML PEN SUBQ SCH ×4 (08:04→21:23)
[2020-03-31] MEDS: INSULIN GLARGINE 300 UNIT/3 ML PEN SUBQ SCH ×2 (08:05→21:24)
[2020-03-31] MEDS: DULoxetine 30 MG CAPSULE PO SCH (08:05)
[2020-03-31] MEDS: polyethylene glycoL 3350 17 GM PACKET PO SCH (08:06)
[2020-03-31] MEDS: ESCITALOPRAM 10 MG TABLET PO SCH (08:06)
[2020-03-31] MEDS: ethyl alcohoL 62% SWAB AMPULE NAS SCH ×2 (09:17→21:09)
[2020-03-31] MEDS: clonazePAM 0.5 MG TABLET PO PRN ×2 (10:18→21:09)
[2020-03-31] MEDS: BUTALB/ACETAM/CAFF 50/325/40MG TABLET PO PRN ×2 (13:01→21:18)
--- NOTE | 2020-03-31 15:48 | PROVIDER PROGRESS NOTE ---
Assessment/Plan - Problem List (1) Diabetes mellitus with hyperglycemia Assessment/Plan: Her glu is very labile, which is not new. She was transferred out of ICU, off the Insulin drip, yesterday. The pt tried and her ICU nurse had tried to get her Insulin Pump to restart and it is not working. We tried to reach the Diabetic Nurse from [facility], to help, but she is not available (this is a weekend). The patient states she cannot remember how to restart the pump and there is no Home Health visit from a nurse possible over a weekend either to help her with that. She was placed into Inpatient status yesterday, therefore, as she did not have a safe discharge plan yesterday for her (difficult) diabetic management, until the Insulin Pump can be restarted. (2) Brittle diabetes Assessment/Plan: There is a history of very labile glu results and the patient does get obtunded with low glucoses. She is an Inpt as of yesterday, for further close DM management. (3) Mechanical breakdown of insulin pump Qualifiers: Encounter type: sequela Qualified Code(s): T85.614S - Breakdown (mechanical) of insulin pump, sequela Assessment/Plan: As in #1 (4) Fall at home Qualifiers: Encounter type: subsequent encounter Qualified Code(s): W19.XXXD - Unspecified fall, subsequent encounter; Y92.009 - Unspecified place in unspecified non-institutional (private) residence as the place of occurrence of the external cause Assessment/Plan: She told the admitting providers that she fell once outside when the dog pulled her and a second time indoors. She told the protective services social worker that there were 5 falls. When the protective services social worker asked her if there should be a different activity, such as compliance with her front wheel walker or not letting the dog's leash tugged on her, the patient answered that there is no need to change what she does at home. I will request a cognitive evaluation by occupational therapist when they are here on Wednesday (today is Wednesday), to evaluate if the pt might have cognitive impairment, to explain such behavior, since the pt had a history of traumatic brain injury. The patient requests higher pain meds, including Morphine. There is a Hx of narcotic seeking behavior, during past admissions. Our pharmacist was able to confirm that she has been titrated off all pain meds containing narcotics over the past few mos. The pt does have bruising around the L eye and after 4 falls at home, some minimal Oxycodone will be allowed while here. (5) Hypothyroidism Assessment/Plan: Continue her thyroid dose here. (6) Non-compliance with treatment Assessment/Plan: She was just here 1 week ago due to the same problem as now and got an appointment arranged to go to the [facility] clinic diabetic specialist. The patient already told that hospitalist that she would not come to the appointment. I will request a cognitive evaluation by occupational therapist when they are here on Wednesday (today is Wednesday) to evaluate if she might have cognitive impairment, to explain her behavior, since it appears she makes poor decisions. (7) Neurogenic bladder Assessment/Plan: As per Hx, she gets urinary retention. (8) Hyperlipidemia Assessment/Plan: Her home meds continue while here. (9) Depression Assessment/Plan: Continue with psychotropic medications if needed. I will request a cognitive evaluation by occupational therapist when they are here on Wednesday (today is Wednesday) to evaluate if she might have cognitive impa irment or is possibly clinically depressed, to explain her behavior since it appears she makes poor decisions. - Current Meds Current Meds: Current Medications Generic Name Dose Route Start Last Admin Trade Name Freq PRN Reason Stop Dose Admin Acetaminophen 650 mg 03/29/20 20:50 03/31/20 13:00 Tylenol PO 650 mg Q6HR PRN Administration Pain 1 to 4 Acetaminophen/Butalbital/Caffeine 1 tab 03/29/20 23:15 03/31/20 13:01 Fioricet PO 1 tab Q4H PRN Administration SEVERE HEADACHE Alcohol 1 amp 03/31/20 09:00 03/31/20 09:17 Nozin SHAYLEE 1 amp BID SHELL Administration Atorvastatin Calcium 10 mg 03/30/20 21:00 03/30/20 21:07 Lipitor PO 10 mg QPM SHELL Administration Baclofen 10 mg 03/29/20 23:15 03/31/20 13:00 Lioresal PO 10 mg QID PRN Administration Spasms Clonazepam 1 mg 03/29/20 23:23 03/31/20 10:18 Klonopin PO 1 mg TID PRN Administration ANXIETY Duloxetine HCl 120 mg 03/30/20 09:00 03/31/20 08:05 Cymbalta PO 120 mg DAILY SHELL Administration Escitalopram Oxalate 40 mg 03/30/20 09:00 03/31/20 08:06 Lexapro PO 40 mg DAILY SHELL Administration Dextrose/Sodium Chloride 1,000 mls @ 60 mls/hr 03/30/20 12:10 03/31/20 09:23 D5.45ns IV 0 mls/hr .[id number] SHELL Infusion Insulin Aspart 2 - 10 unit 03/31/20 08:00 03/31/20 11:53 Novolog SUBQ 8 unit 0800,1200,1700,2100 SHELL Administration Protocol Insulin Glargine 8 unit 03/30/20 21:00 03/31/20 08:05 Lantus Solostar SUBQ 8 unit BID SHELL Administration Levothyroxine Sodium 112 mcg 03/30/20 07:00 03/31/20 06:45 Synthroid PO 112 mcg QDAC SHELL Administration Oxycodone HCl 5 mg 03/30/20 10:27 03/31/20 06:43 Roxicodone PO 5 mg Q8HR PRN Administration Pain 5 to 7 Polyethylene Glycol 17 gm 03/30/20 09:00 03/31/20 08:06 Miralax PO 17 gm DAILY SHELL Administration Sodium Chloride 10 ml 03/30/20 01:00 03/31/20 08:06 Normal Saline Flush 0.9% IVP 10 ml 0100,0900,1700 SHELL Administration Trazodone HCl 200 mg 03/30/20 00:14 03/30/20 20:59 Desyrel PO 200 mg QPM SHELL Administration - Lab Result Fish Bone Diagrams: 04/01/20 05:25 03/31/20 05:20 - Additional Planning My Orders: My Active Orders 03/30/20 21:00 Insulin Glargine [Lantus Solostar] 8 unit SUBQ BID 03/31/20 bulk system operator Consult [CONS] Routine 04/01/20 Diabetes Outpatient Education MAC [MAC] Routine Subjective - Subjective Patient Reports: Resting Comfortably, Other ("Can I have more pain medications and more often"? I answered her no. Her response was "Okay then.") Objective Vital Signs: Vital Signs - 24 hr 03/30/20 03/30/20 03/30/20 15:57 16:00 16:01 Temperature 36.8 C Heart Rate 80 81 Heart Rate [ Brachial] Heart Rate [ 77 Monitoring electrodes] Respiratory 17 13 12 Rate Blood Pressure 115/68 Blood Pressure 105/63 [Left Brachial artery] Blood Pressure [Right Brachial artery] O2 Saturation 96 03/30/20 03/30/20 03/31/20 17:00 19:03 00:17 Temperature 36.7 C 36.7 C Heart Rate 84 Heart Rate [ Brachial] Heart Rate [ 83 77 Monitoring electrodes] Respiratory 24 17 14 Rate Blood Pressure Blood Pressure 103/68 [Left Brachial artery] Blood Pressure 108/83 H [Right Brachial artery] O2 Saturation 97 94 03/31/20 03/31/20 03/31/20 04:15 07:48 08:52 Temperature 36.5 C 36.8 C 36.8 C Heart Rate 80 Heart Rate [ Brachial] Heart Rate [ 74 80 Monitoring electrodes] Respiratory 16 16 16 Rate Blood Pressure Blood Pressure [Left Brachial artery] Blood Pressure 123/75 123/80 [Right Brachial artery] O2 Saturation 95 95 95 03/31/20 03/31/20 11:00 15:33 Temperature 36.9 C 36.9 C Heart Rate Heart Rate [ 79 Brachial] Heart Rate [ 74 Monitoring electrodes] Respiratory 20 20 Rate Blood Pressure Blood Pressure [Left Brachial artery] Blood Pressure 136/89 H 123/87 H [Right Brachial artery] O2 Saturation 96 96 Oxygen O2 Source Room air I&O (Last 24 Hrs): Intake and Output Totals x24h 03/29/20 03/30/20 03/31/20 23:59 23:59 23:59 Intake Total 3886.959 2816.05 1268 Output Total 1350 2775 Balance 457.934 3615.05 1268 General: Alert, Oriented x3, Other (Appears tired) HEENT: Mucous membr. moist/pink, Other (Bruise around L eye) Neck: Supple, No JVD Neuro: Alert, Other (Non-focal) Cardiovascular: Regular rate Respiratory: No respiratory distress Abdomen: Soft Extremities: No edema, Other (R lower leg in plastic boot) - Results Results: Laboratory Results WBC 5.7 x10^3/uL (4.8-10.8) 03/31/20 05:20 RBC 3.94 10^6/uL (4.20-5.40) L 03/31/20 05:20 Hgb 10.2 g/dL (12.0-16.0) L 03/31/20 05:20 Hct 33.2 % (37.0-47.0) L 03/31/20 05:20 MCV 84.3 fL (81.0-99.0) 03/31/20 05:20 MCH 25.9 pg (27.0-31.0) L 03/31/20 05:20 MCHC 30.7 g/dL (32.0-36.0) L 03/31/20 05:20 RDW 16.0 % (12.0-15.0) H 03/31/20 05:20 Plt Count 389 10^3/uL (130-450) 03/31/20 05:20 MPV 9.7 fL (7.9-10.8) 03/31/20 05:20 Neut # (Auto) 2.8 10^3/uL (1.5-6.6) 03/31/20 05:20 Lymph # (Auto) 1.6 10^3/uL (1.5-3.5) 03/31/20 05:20 Cameron # (Auto) 0.5 10^3/uL (0.0-1.0) 03/31/20 05:20 Eos # (Auto) 0.7 10^3/uL (0.0-0.7) 03/31/20 05:20 Baso # (Auto) 0.1 10^3/uL (0.0-0.1) 03/31/20 05:20 Absolute Nucleated RBC 0.00 x10^3/uL 03/31/20 05:20 Nucleated RBC % 0.0 /100WBC 03/31/20 05:20 VBG pH 7.438 (7.31-7.41) H 03/29/20 18:59 VBG pCO2 37.2 mmHg (41-51) L 03/29/20 18:59 VBG pO2 34.7 mmHg (25-47) 03/29/20 18:59 VBG HCO3 24.6 mmol/L (23-28) 03/29/20 18:59 VBG Total CO2 25.7 mmol/L (24-29) 03/29/20 18:59 VBG O2 Saturation 72.7 % (60-80) 03/29/20 18:59 VBG Base Excess 0.6 mmol/L (-2 - +2) 03/29/20 18:59 Sodium 139 mmol/L (135-145) 03/31/20 05:20 Potassium 4.1 mmol/L (3.5-5.0) 03/31/20 05:20 Chloride 105 mmol/L (101-111) 03/31/20 05:20 Carbon Dioxide 23 mmol/L (21-32) 03/31/20 05:20 Anion Gap 11.0 (6-13) 03/31/20 05:20 BUN 9 mg/dL (6-20) 03/31/20 05:20 Creatinine 0.7 mg/dL (0.4-1.0) 03/31/20 05:20 Estimated GFR (MDRD) 90 (>89) 03/31/20 05:20 Glucose 195 mg/dL (70-100) H 03/31/20 05:20 POC Whole Bld Glucose 247 mg/dL (70 - 100) H 03/31/20 15:28 Glycated Hemoglobin 8.9 % (4.6-6.2) H 03/30/20 04:25 Estim Average Glucose 209 (70-100) H 03/30/20 04:25 Calcium 8.4 mg/dL (8.5-10.3) L 03/31/20 05:20 Phosphorus 4.1 mg/dL (2.5-4.6) 03/30/20 04:25 Magnesium 2.3 mg/dL (1.7-2.8) 03/31/20 05:20 Total Bilirubin 0.8 mg/dL (0.2-1.0) 03/29/20 18:59 AST 21 IU/L (10-42) 03/29/20 18:59 ALT 19 IU/L (10-60) 03/29/20 18:59 Alkaline Phosphatase 155 IU/L (42-121) H 03/29/20 18:59 Total Protein 6.7 g/dL (6.7-8.2) 03/29/20 18:59 Albumin 3.1 g/dL (3.2-5.5) L 03/30/20 04:25 Globulin 3.2 g/dL (2.1-4.2) 03/29/20 18:59 Albumin/Globulin Ratio 1.1 (1.0-2.2) 03/29/20 18:59 Lipase 24 U/L (22-51) 03/29/20 18:59 Urine Color YELLOW 03/29/20 18:51 Urine Clarity CLEAR (CLEAR) 03/29/20 18:51 Urine pH 6.5 PH (5.0-7.5) 03/29/20 18:51 Ur Specific [place] <=1.005 (1.002-1.030) 03/29/20 18:51 Urine Protein NEGATIVE mg/dL (NEGATIVE) 03/29/20 18:51 Urine Glucose (UA) >=1000 mg/dL (NEGATIVE) H 03/29/20 18:51 Urine Ketones NEGATIVE mg/dL (NEGATIVE) 03/29/20 18:51 Urine Occult Blood NEGATIVE (NEGATIVE) 03/29/20 18:51 Urine Nitrite NEGATIVE (NEGATIVE) 03/29/20 18:51 Urine Bilirubin NEGATIVE (NEGATIVE) 03/29/20 18:51 Urine Urobilinogen 0.2 (NORMAL) E.U./dL (NORMAL) 03/29/20 18:51 Ur Leukocyte Esterase NEGATIVE (NEGATIVE) 03/29/20 18:51 Ur Microscopic Review NOT INDICATED 03/29/20 18:51 Urine Culture Comments NOT INDICATED 03/29/20 18:51 Urine HCG, Qual NEGATIVE 03/29/20 18:51 Nasal Screen MRSA (PCR) POSITIVE (NEGATIVE) A* 03/29/20 21:50 Urine Opiates Screen NEGATIVE (NEGATIVE) 03/29/20 18:51 Ur Oxycodone Screen NEGATIVE (NEGATIVE) 03/29/20 18:51 Urine Methadone Screen NEGATIVE (NEGATIVE) 03/29/20 18:51 Ur Propoxyphene Screen NEGATIVE (NEGATIVE) 03/29/20 18:51 Ur Barbiturates Screen POSITIVE (NEGATIVE) H 03/29/20 18:51 Ur Tricyclics Screen NEGATIVE (NEGATIVE) 03/29/20 18:51 Ur Phencyclidine Scrn NEGATIVE (NEGATIVE) 03/29/20 18:51 Ur Amphetamine Screen NEGATIVE (NEGATIVE) 03/29/20 18:51 U Methamphetamines Scrn NEGATIVE (NEGATIVE) 03/29/20 18:51 U Benzodiazepines Scrn NEGATIVE (NEGATIVE) 03/29/20 18:51 Urine Cocaine Screen NEGATIVE (NEGATIVE) 03/29/20 18:51 U Cannabinoids Screen NEGATIVE (NEGATIVE) 03/29/20 18:51 Ethyl Alcohol < 5.0 mg/dL 03/29/20 18:59 Serum Ketones SMALL (NEGATIVE) H 03/29/20 18:59 - Procedures Procedures: Procedures EXCISION OF STOMACH, ENDO, DIAGN (05/24/18) INSPECTION OF LOWER INTESTINAL TRACT, ENDO (05/24/18) REPOSITION RIGHT FIBULA WITH INT FIX, OPEN APPROACH (09/15/19) REPOSITION RIGHT TIBIA WITH INT FIX, OPEN APPROACH (09/15/19) TRANSFUSE NONAUT RED BLOOD CELLS IN PERIPH VEIN, PERC (09/15/19)
[2020-03-31] MEDS: ATORVASTATIN 10 MG TABLET PO SCH (21:08)
[2020-03-31] MEDS: traZODone 50 MG TABLET PO SCH (21:22)
[2020-04-01] MEDS: SODIUM CHLORIDE FLUSH 0.9% 10 ML SYRINGE IVP SCH ×2 (01:38→08:11)
[2020-04-01 05:49] LABS: BASOPHILS % (AUTO) 0.6 %; EOSINOPHILS # (AUTO) 0.7 10^3/uL (0.0-0.7); EOSINOPHILS % (AUTO) 13.1 %; HGB - HEMOGLOBIN 10.4 g/dL (12.0-16.0); LYMPHOCYTES # (AUTO) 1.7 10^3/uL (1.5-3.5); LYMPHOCYTES % (AUTO) 34.9 %; MEAN CORPUSCULAR HEMOGLOBIN 24.6 pg (27.0-31.0); MEAN CORPUSCULAR HGB CONC 29.4 g/dL (32.0-36.0); MEAN CORPUSCULAR VOLUME 83.7 fL (81.0-99.0); MEAN PLATELET VOLUME 9.4 fL (7.9-10.8); MONOCYTES # (AUTO) 0.4 10^3/uL (0.0-1.0); MONOCYTES % (AUTO) 8.9 %; NEUTROPHILS # (AUTO) 2.1 10^3/uL (1.5-6.6); NEUTROPHILS % (AUTO) 42.1 %; PLT - PLATELET COUNT 381 10^3/uL (130-450); RED BLOOD COUNT 4.23 10^6/uL (4.20-5.40); RED CELL DISTRIBUTION WIDTH 16.2 % (12.0-15.0)
[2020-04-01] MEDS: oxyCODONE 5 MG TABLET PO PRN (06:47)
[2020-04-01] MEDS: LEVOTHYROXINE 112 MCG TABLET PO SCH (06:47)
[2020-04-01] MEDS ORDERED: INSULIN ASPART 300 UNIT/3 ML PEN SUBQ SCH (08:00)
[2020-04-01] MEDS: INSULIN GLARGINE 300 UNIT/3 ML PEN SUBQ SCH (08:09)
[2020-04-01] MEDS: BACLOFEN 10 MG TABLET PO PRN (08:10)
[2020-04-01] MEDS: ethyl alcohoL 62% SWAB AMPULE NAS SCH (08:10)
[2020-04-01] MEDS: ESCITALOPRAM 10 MG TABLET PO SCH (08:10)
[2020-04-01] MEDS: DULoxetine 30 MG CAPSULE PO SCH (08:10)
[2020-04-01] MEDS: BUTALB/ACETAM/CAFF 50/325/40MG TABLET PO PRN (08:10)
[2020-04-01] MEDS: clonazePAM 0.5 MG TABLET PO PRN (08:10)
[2020-04-01] MEDS: polyethylene glycoL 3350 17 GM PACKET PO SCH (08:11)
[2020-04-01 08:17] VITALS: BP 127/78
--- NOTE | 2020-04-01 12:13 | Discharge Plan ---
Discharge Plan Problem Reviewed?: Yes Disposition: 06 Home Health Service Condition: Fair Diet: Diabetic Activity Restrictions: Activity as Tolerated Instruction Topics: Diabetes Type 1 Manage Ch Health Concerns: You were hospitalized for high glucose and there was trouble getting your insulin pump to work. When the diabetic nurse specialist saw you today, she reviewed with you the proper function of the insulin pump. Resume all your usual medications management. You need the CGM for better glucose management. Home health service has been reordered to see you. You may qualify for more home assistance which social work was starting to arrange for you. Plan of Treatment: As above. Care Goals: Improvement in symptoms and stabilization are the goals. Assessment: The patient agreed to everything that I reminded her to do, however did not want a detailed evaluation of her insulin pump when the diabetic nurse specialist was in the room, and Jammie said she would come to the Diabetic [facility] clinic appointments "if she thinks she needs it". Additional Instructions or Follow Up instructions: If you have new or worsening symptoms, call your home health nurses for advice, or your PCP or mathematics academic chair, or come to the ER. Follow-Up Care: [facility] Clinic - Diabetes Ed No Smoking: If you smoke, Please STOP! Call for help. Follow-up with: Isatu Belle MD [Primary Care Provider] -
--- NOTE | 2020-04-01 12:21 | DISCHARGE SUMMARY ---
Discharge Summary Admit Date: 03/29/20 Discharge Date: 04/01/20 Discharging Provider: Dr Saira Bird Primary Care Provider: Dr Isatu Estrada Code Status: Attempt Resuscitation Condition at Discharge: Fair Discharge Disposition: [facility] History of Present Illness: From the admission H&P of Dr Alden Van: Patient is a 44-year-old female with medical history significant for brittle diabetes mellitus type 1 for which she has an insulin pump. She presents to the ED after a mechanical fall today. She explains that she took her dog out and it kept pulling on its leash which caused her to lose her balance and fall. She told the admitting providers that she fell once while outdoors when the dog pulled her and a second time indoors. She told the community mental health social worker that there were 5 total falls. She underwent extensive imaging in the ED which included x-rays of her ankle and knee, as well as CT scans of her head and neck. These were unremarkable for any acute processes. She was found to have a blood glucose level of 885. She reports checking her blood glucose in the morning and it was 200. She denies any other complaints. No chest pain, dyspnea, abdominal pain, nausea, vomiting, fever or chills. However she complains of back pain which is likely chronic but could have been exacerbated by her fall. She reports increased urinary output/frequency today. She also reports increased thirst. As a result of her blood sugar over 800, she is being admitted to the ICU on an insulin drip for hyperglycemia, in Observation status.. - HOSPITAL COURSE Hospital Course: (1) Diabetes mellitus with hyperglycemia Her glu is very labile, which is not new. She was transferred out of ICU, off the Insulin drip. The pt tried and her ICU nurse had tried to get her Insulin Pump to restart and it was not working. We tried to reach the Diabetic Nurse from [facility], to help, but she is not available over a weekend. The patient stated she cannot remember how to restart the pump and since there is no Home Health visit from a nurse possible over a weekend either to help her with that, the patient was placed into Inpatient status, as she did not have a safe discharge plan on a Sat or Sun for her (difficult) diabetic management, until the Insulin Pump could be restarted. (2) Brittle diabetes There is a history of very labile glu results and the patient does get obtunded with low glucoses. Within 6-7 hours, her glu went from 85 to 365, while here. Thus, she was admitted from Observation to Inpt status, for further close DM management. (3) Mechanical breakdown of insulin pump On 04/01/20, the Diabetic Nurse specialist from [facility] saw the patient in consult and wrote this note: 04/01/20 14:28 - Diabetes Education Clinic by Kori Santos: 1050am: I saw Jammie as an inpatient. She was admitted with Bg 800+ after coming to ER after a fall. Referral requests help to restart insulin pump. Jammie has left a message x2 on my phone asking for help to replace insulin and fix cartridge. She has to leave at 1130. In the past Jammie has been independent in using her pump and CGM, but has missed bolus' because she forgot or fell asleep. Today she is eager to leave. I asked how I can help. She needs insulin. I obtained her home Rx novolog from inpatient staff. She beau it up and tried to fill cartridge while in pump. As she went through the process she said there was no insulin in cartridge- it doesnt work. I suggested she go through the "change cartridge" option on pump and reminded her cartridge is filled BEFORE putting it into pump. She was in a hurry, not interested the reviewing how to remove air from filled cartridge. I asked if cartridge was new, and she confirmed it and insertion set was. She was able to complete the process without further cues. I asked to download pump, but she declined. I asked about the need to set temp basal if she got lantus in hospital. She confirmed she did, but declined to set temp basal "my BG is high". She understood the risk of lows. I asked her to look at 03/29 to problem solve high BG. She was 225F and gave 4-6 correction/ prandial bolus between 6a- 3p. BG did not correct. When I asked if she could do anything different in the future to prevent admission she did not answer. She agreed she was not getting insulin. I asked if it could be a bad site and suggested if she bolus' and BG does not change, consider taking pump out and using injections until she can change the site. She agreed. Without a download I could not see if she got any pump alarms. I asked if she would like to schedule an appointment with CDE, and she declined. She said she has the contact info and will call if she changes her mind. She did not have her CGM, has not had it for 7 months. She says she is working with [employer], but is not sure of next step. I asked if I could call. She agreed. She spoke with them as recently as last week, and they are waiting for insurance cards. She has not gotten supplies for 3 years from [employer] so they have to start over. Likely she had another supplier. Insurance info fax'd. Of note, Jammie gave me an incorrect number to reach her. (4) Fall at home She told the admitting providers that she fell once outside when the dog pulled her and a second time indoors. She told the community mental health social worker that there were 5 falls. When the community mental health social worker asked her if there should be a different activity, such as compliance with using her front wheel walker or not letting the dog's leash tug on her, the patient answered that there is no need to change what she does at home. The patient requested higher pain meds, including Morphine, and there is a history of narcotic seeking behavior, during past admissions. Our pharmacist was able to confirm that she has been titrated off all pain meds containing narcotics over the past few mos. The pt did have bruising around the L eye and after 4 or 5 falls at home, some minimal Oxycodone was allowed while here. (5) Hypothyroidism Her thyroid dose was continued while here. (6) Non-compliance with treatment She was just here 1 week previously due to the same problem as now and got an appointment arranged to go to the [facility] clinic diabetic specialist, but the pa kierstenba had told the Hospitalist during that last recent admission, that she would not come to the appointment. The Hospitalist requested a cognitive evaluation by Occupational Therapist when they were here on Wednesday, to evaluate if she might have cognitive impairment, to explain her behavior, since it appears she makes poor decisions since the pt had a history of traumatic brain injury. The patient's score was 27/30, indicating no cognitive impairment. (7) Neurogenic bladder As per history, she occasionally gets urinary retention. (8) Hyperlipidemia Her home med continued while here. (9) Depression The cognitive evaluation by Occupational Therapist to evaluate if she might have cognitive impairment or was possibly clinically depressed, was unremarkable. - ALLERGIES Allergies/Adverse Reactions: Allergies Allergy/AdvReac Type Severity Reaction Status Date / Time carisoprodol [From Soma] Allergy Unknown Verified 03/26/20 12:11 divalproex sodium Allergy Rash Verified 03/26/20 12:11 [From Depakote] gabapentin [From Neurontin] Allergy Edema Verified 03/26/20 12:11 lidocaine Allergy Unknown Verified 03/26/20 12:11 nitrofurantoin Allergy Rash Verified 03/26/20 12:11 macrocrystalline * [From Macrodantin] nortriptyline Allergy Unknown Verified 03/26/20 12:11 ondansetron [From Zofran] Allergy Hives Verified 03/26/20 12:11 ondansetron HCl * Allergy Hives Verified 03/26/20 12:11 [From Zofran (as hydrochloride)] pregabalin [From Lyrica] Allergy Headache Verified 03/26/20 12:11 - MEDICATIONS Home Medications: Ambulatory Orders Medication Instructions Recorded Confirmed Prazosin HCl 5 mg PO QPM 01/23/19 03/30/20 Trazodone HCl 200 mg PO QPM 01/23/19 03/30/20 Duloxetine HCl [Cymbalta] 60 mg PO BID 09/15/19 03/30/20 Insulin Detemir [Levemir Flextouch] 10 units SUBQ DAILY PRN 03/26/20 03/30/20 Acetaminophen 1,000 mg PO Q6HR PRN 03/29/20 03/30/20 Magnesium Oxide [Magnesium] 400 mg PO DAILY 03/29/20 03/29/20 Metoclopramide [Reglan] 10 mg PO ACHS 03/29/20 03/30/20 Mirabegron [Myrbetriq] 50 mg PO QPM 03/29/20 03/29/20 Oxybutynin Chloride 5 mg PO QPM 03/29/20 03/29/20 Docusate Sodium 100 mg PO PRN PRN 03/30/20 03/30/20 Insulin Aspart [Novolog] 03/30/20 Insulin Detemir [Levemir Flextouch] 12 units SUBQ QPM PRN 03/30/20 03/30/20 Levothyroxine Sodium 112 mcg PO QDAC 03/30/20 03/30/20 bisacodyL [Dulcolax] 5 mg PO PRN PRN 03/30/20 03/30/20 - PHYSICAL EXAM AT DISCHARGE General Appearance: positive: No acute distress, Alert Eyes Bilateral: positive: EOMI, Other (Bruise around L eye, without swelling noted.) Neck: positive: Nml inspection, No JVD Respiratory: positive: No respiratory distress Cardiovascular: positive: Regular rate & rhythm Abdomen: positive: No distention Skin: positive: Color nml Extremities: positive: No pedal edema, Other (R foot is in a plastic boot.) Neurologic/Psychiatric: positive: Oriented x3, Other (Grossly non-focal.) - LABS Result Diagrams: 04/01/20 05:25 03/31/20 05:20 - DIAGNOSTIC IMAGING Diagnostic Imaging Results: Final report reviewed - FOLLOW UP Follow Up: See PCP in routine follow-up. See Diabetic Nurse in MAC, as described above. - TIME SPENT Time Spent in Discharge (Minutes): 60
== END 2020-04-01 12:36 | disposition home health service (06) | DRG 639 ==
LOC: EDUNIT# → ED 18:33 → ICU 20:50 → OBSVTOIN 03-30 10:10 → MS2 03-30 18:20
PROVIDERS: ADMIT Internal Medicine; ATTEND Internal Medicine
DX: E10.65 Type 1 diabetes mellitus with hyperglycemia (principal); E10.42 Type 1 diabetes mellitus with diabetic polyneuropathy; S16.1XXA Strain of muscle, fascia and tendon at neck level, initial encounter; M25.571 Pain in right ankle and joints of right foot; Y93.K1 Activity, walking an animal; T38.3X6A Underdosing of insulin and oral hypoglycemic [antidiabetic] drugs, initial encounter; S00.81XA Abrasion of other part of head, initial encounter; Z96.41 Presence of insulin pump (external) (internal); Y92.000 Kitchen of unspecified non-institutional (private) residence as the place of occurrence of the external cause; M25.561 Pain in right knee; E03.9 Hypothyroidism, unspecified; N31.9 Neuromuscular dysfunction of bladder, unspecified; F32.9 Major depressive disorder, single episode, unspecified; E78.5 Hyperlipidemia, unspecified; M54.9 Dorsalgia, unspecified; G89.29 Other chronic pain; S00.12XA Contusion of left eyelid and periocular area, initial encounter; W19.XXXA Unspecified fall, initial encounter; F17.210 Nicotine dependence, cigarettes, uncomplicated; Z86.14 Personal history of Methicillin resistant Staphylococcus aureus infection; Z91.128 Patient's intentional underdosing of medication regimen for other reason; Z91.81 History of falling; Z66 Do not resuscitate; Z79.899 Other long term (current) drug therapy; Z91.14 Patient's other noncompliance with medication regimen; Z87.820 Personal history of traumatic brain injury; Z76.5 Malingerer [conscious simulation]
CPT/HCPCS: 36415; 70450; 72125; 73564; 73610; 80048; 80053; 81003; 81025; 82009; 82040; 82803; 83036; 83690; 83735; 84100; 85025; 87640; 96361; 96365; 96366; 97162; 97166; 99285; 99291; A9270; G0378; J1815; 80306; 80320; 81001; 82947; 87086

== ENCOUNTER 2020-04-06 18:00 | Emergency (ER) | payer MEDICARE, MEDICAID ==
[2020-04-06 18:12] VITALS: BP 117/74
--- NOTE | 2020-04-06 18:28 | ED Physician Documentation ---
PD HPI LOWER EXT INJURY - Stated complaint Stated Complaint: R ANKLE INJ - Chief complaint Chief Complaint: Ext Problem - History obtained from History obtained from: Patient - History of Present Illness PD HPI LOW EXT INJURY LOCATION: Right, Ankle, Foot Type of injury: Fall Where injury occurred: Home Timing - onset: How many days ago (3) Timing - duration: Days (3) Timing - details: Gradual onset Pain level max: 8 Pain level now: 8 Improved by: Rest Worsened by: Moving, Palpating Associated symptoms: No: Weakness, Numbness, Tingling, Swelling, Discolored Contributing factors: Prior ortho surgery (ORIF on the right ankle). 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 : Kidney stones, Other HEENT: Chronic vision loss, Chronic sinusitis Psych: Other Musculoskeletal: Osteoarthritis, Fibromyalgia, Fatigue, Chronic back pain Derm: None - Past Surgical History Past Surgical History: Yes General: Gastric surgery Ortho: Other /MARINE PAINTER: section, Endometrial ablation, Tubal ligation - Present Medications Home Medications: Ambulatory Orders Medication Instructions Recorded Confirmed Prazosin HCl 5 mg PO QPM 01/23/19 03/30/20 Trazodone HCl 200 mg PO QPM 01/23/19 03/30/20 Duloxetine HCl [Cymbalta] 60 mg PO BID 09/15/19 03/30/20 Insulin Detemir [Levemir Flextouch] 10 units SUBQ DAILY PRN 03/26/20 03/30/20 Acetaminophen 1,000 mg PO Q6HR PRN 03/29/20 03/30/20 Magnesium Oxide [Magnesium] 400 mg PO DAILY 03/29/20 03/29/20 Metoclopramide [Reglan] 10 mg PO ACHS 03/29/20 03/30/20 Mirabegron [Myrbetriq] 50 mg PO QPM 03/29/20 03/29/20 Oxybutynin Chloride 5 mg PO QPM 03/29/20 03/29/20 Docusate Sodium 100 mg PO PRN PRN 03/30/20 03/30/20 Insulin Aspart [Novolog] 03/30/20 Insulin Detemir [Levemir Flextouch] 12 units SUBQ QPM PRN 03/30/20 03/30/20 Levothyroxine Sodium 112 mcg PO QDAC 03/30/20 03/30/20 bisacodyL [Dulcolax] 5 mg PO PRN PRN 03/30/20 03/30/20 - Allergies Allergies/Adverse Reactions: Allergies Allergy/AdvReac Type Severity Reaction Status Date / Time carisoprodol [From Soma] Allergy Unknown Verified 03/26/20 12:11 divalproex sodium Allergy Rash Verified 03/26/20 12:11 [From Depakote] gabapentin [From Neurontin] Allergy Edema Verified 03/26/20 12:11 lidocaine Allergy Unknown Verified 03/26/20 12:11 nitrofurantoin Allergy Rash Verified 03/26/20 12:11 macrocrystalline * [From Macrodantin] nortriptyline Allergy Unknown Verified 03/26/20 12:11 ondansetron [From Zofran] Allergy Hives Verified 03/26/20 12:11 ondansetron HCl * Allergy Hives Verified 03/26/20 12:11 [From Zofran (as hydrochloride)] pregabalin [From Lyrica] Allergy Headache Verified 03/26/20 12:11 - Social History Does the pt smoke?: Yes Smoking Status: Current every day smoker Does the pt drink ETOH?: No Does the pt have substance abuse?: No - Immunizations Immunizations are current?: Yes Immunizations: TDAP >10years/unknown - POLST Patient has POLST: No POLST Status: DNR PD ED PE NORMAL - Vitals Vital signs reviewed: Yes - General General: Alert and oriented X 3, No acute distress - Derm Derm: Warm and dry - Extremities Extremities: Other (R ankle - mild diffuse TTP. NVI. no deformity. ) - Neuro Neuro: Alert and oriented X 3 Results - Vitals Vitals: Vital Signs - 24 hr 04/06/20 04/06/20 18:02 19:29 Temperature 36.4 C L Heart Rate 100 76 Respiratory 16 18 Rate Blood Pressure 117/74 O2 Saturation 100 98 Oxygen O2 Source Room air - Rads (name of study) R ankle xray Radiology: Prelim report reviewed, EMP read contemporaneously, See rad report ( Diffuse patchy osteopenia with heterogeneous osseous architecture of the distal right fibula and tibia and visualized bones of the right foot. Subacute to chronic healing transverse fractures are seen at right medial and lateral malleolus. No suggestion of periosteal reaction or cortical lucency/erosions to suspect acute osteomyelitis. ) R foot xray Radiology: Prelim report reviewed, EMP read contemporaneously, See rad report (No acute bony abnormality. ) PD MEDICAL DECISION MAKING - ED course Complexity details: reviewed results, re-evaluated patient, considered differential, d/w patient ED course: Patient with a right ankle sprain. No acute fractures after her recent fracture. We will place her back in her orthotic boot. Patient is well- appearing, nontoxic. Afebrile. Ambulating well. Has pain medication at home. Patient counseled regarding signs and symptoms for which I believe and urgent re-evaluation would be necessary. Patient with good understanding of and agreement to plan and is comfortable going home at this time This document was made in part using voice recognition software. While efforts are made to proofread this document, sound alike and grammatical errors may occur. Departure - Departure Disposition: 01 Home, Self Care Clinical Impression: Right ankle sprain Qualifiers: Encounter type: initial encounter Involved ligament of ankle: unspecified ligament Qualified Code(s): S93.401A - Sprain of unspecified ligament of right ankle, initial encounter Condition: Good Instructions: ED Sprain Ankle Follow-Up: NALDO KEBEDE MD [Primary Care Provider] - Within 1 week Comments: Thankfully your x-ray does not show any new fractures today. Please follow-up with your doctor for further care. Continue to wear your boot at home. Discharge Date/Time: 04/06/20 19:29
--- NOTE | 2020-04-06 18:49 | XRAY Report ---
Reason: fall, R foot pain Procedure Date: 04/06/2020 Accession Number: [id number] / [id number] Procedure: XR - Foot 3 View RT CPT Code: Final Report FULL RESULT: EXAM: RIGHT FOOT RADIOGRAPHY EXAM DATE: 04/06/2020 06:10 PM. CLINICAL HISTORY: Fall 3 days ago. Right foot pain. COMPARISON: FOOT 3 VIEW RT 03/26/2020 12:52 PM. TECHNIQUE: 3 views. FINDINGS: Bones: No acute traumatic or destructive bony abnormality. Irregular demineralization. Joints: Normal. No subluxations. Soft Tissues: Surgical clips. IMPRESSION: No acute bony abnormality. RADIA
--- NOTE | 2020-04-06 18:54 | XRAY Report ---
Reason: fall, ankle pain, h/o fracture Procedure Date: 04/06/2020 Accession Number: [id number] / [id number] Procedure: XR - Ankle 3 View RT CPT Code: Final Report FULL RESULT: EXAM: RIGHT ANKLE RADIOGRAPHY. EXAM DATE: 04/06/2020 06:05 PM. CLINICAL HISTORY: Fall, ankle pain, h/o fracture. COMPARISON: ANKLE 3 VIEW RT 03/29/2020 7:33 PM. TECHNIQUE: 3 views. FINDINGS: Bones: Patchy osteopenia and heterogeneous osseous architecture is seen at the distal right fibula and tibia and bones of right foot. Subacute to chronic appearing transverse fractures through right medial and lateral malleolus. Significant soft tissue/subcutaneous edema of the visualized right lower extremity. No suggestion of periosteal reaction or cortical lucency/erosions to suspect acute osteomyelitis. Joints: No subluxations. IMPRESSION: Diffuse patchy osteopenia with heterogeneous osseous architecture of the distal right fibula and tibia and visualized bones of the right foot. Subacute to chronic healing transverse fractures are seen at right medial and lateral malleolus. No suggestion of periosteal reaction or cortical lucency/erosions to suspect acute osteomyelitis. RADIA
== END 2020-04-06 19:29 | disposition home or self-care (01) ==
LOC: ED 18:00
DX: S93.401A Sprain of unspecified ligament of right ankle, initial encounter (principal); W19.XXXA Unspecified fall, initial encounter; Y92.009 Unspecified place in unspecified non-institutional (private) residence as the place of occurrence of the external cause; M85.871 Other specified disorders of bone density and structure, right ankle and foot; E10.42 Type 1 diabetes mellitus with diabetic polyneuropathy; F17.200 Nicotine dependence, unspecified, uncomplicated
CPT/HCPCS: 99282; 99283

== ENCOUNTER 2020-04-11 14:19 | Outpatient (CLI) | payer MEDICARE, MEDICAID ==
[2020-04-11 15:03] LABS: CALCIUM 8.3 mg/dL (8.5-10.3); CREATININE 0.7 mg/dL (0.4-1.0)
[2020-04-11 15:18] LABS: HB2 TOTAL 11.4 g/dL; HEMOGLOBIN A1C 0.89 g/dL; HEMOGLOBIN A1C % 9.3 % (4.6-6.2)
--- NOTE | 2020-04-13 13:53 | Ultrasound Report ---
Reason: PELVIC PAIN Procedure Date: 04/11/2020 Accession Number: [id number] / [id number] Procedure: US - Pelvic w/Transvaginal CPT Code: Final Report FULL RESULT: EXAM: PELVIC ULTRASOUND EXAM DATE: 04/11/2020 05:40 PM. CLINICAL HISTORY: Left pelvic pain. Pelvic pain for 3 weeks. History of endometrial ablation. History of gastric bypass surgery. COMPARISON: ABDOMEN/PELVIS W 03/22/2020 9:30 PM ABDOMEN/PELVIS W/ 05/22/2018 3:07 PM. TECHNIQUE: Realtime transabdominal pelvic scan performed to identify the uterus and adnexa and as an overview of other pelvic structures, followed by transvaginal scan to provide greater detail of the uterus and adnexa, with static image documentation. FINDINGS: Uterus: 8 x 3.7 x 4.8 cm, volume 74.2 cc. Anteverted position. Normal overall size and echotexture. Masses: None. Endometrium: 5 mm. Endometrium heterogeneous and difficult to delineate. No increased vascularity. Cervix: Numerous nabothian cyst noted. Right Ovary: 3 x 1.2 x 1.2 cm, volume 2.2 cc. Normal echotexture and blood flow. Resistive index 0.5. Peak systolic velocity 2.3 cm/sec. Left Ovary: 2 x 0.9 x 1.2 cm, volume 1.2 cc. Normal echotexture and blood flow. Resistive index 0.6. Peak systolic velocity 2.3 cm/sec. Free Fluid: None. Other: None. IMPRESSION: 1. Normal uterine volume. 2. Ill-defined heterogeneous endometrium measuring 5 mm, which may be in part related to patient's history of endometrial ablation. No increased vascularity. 3. Normal ovaries. RADIA
== END 2020-04-11 14:20 | disposition home or self-care (01) ==
LOC: DI 14:19
PROVIDERS: ATTEND Internal Medicine
DX: R10.2 Pelvic and perineal pain (principal); N88.8 Other specified noninflammatory disorders of cervix uteri; E11.22 Type 2 diabetes mellitus with diabetic chronic kidney disease; N18.9 Chronic kidney disease, unspecified
CPT/HCPCS: 36415; 76830; 76856; 80048; 82306; 83036

== ENCOUNTER 2020-04-22 18:56 | Emergency (ER) | payer MEDICARE, MEDICAID ==
[2020-04-22] MEDS ORDERED: ACETAMINOPHEN 325 MG TABLET PO STA (20:30)
--- NOTE | 2020-04-22 20:54 | ED Physician Documentation ---
History of Present Illness - Stated complaint Stated Complaint: L WRIST/ R ANKLE PX - Chief complaint Chief Complaint: Trauma Ext - History obtained from History obtained from: Patient - History of Present Illness Timing: Today Pain level max: 10 Pain level now: 10 - Additonal information Additional information: 44-year-old female presents the emergency department after a mechanical fall today. She states that she fell forward and struck her head injuring her head and neck. Also complains of right knee pain. Worse with movement and better with rest. Placed in a c-collar by EMS. No loss of consciousness. No vomiting. She has not on any blood thinners. Review of Systems Constitutional: denies: Fever, Chills Throat: denies: Sore throat Cardiac: denies: Chest pain / pressure Respiratory: denies: Cough GI: denies: Nausea, Vomiting, Diarrhea Skin: denies: Rash Musculoskeletal: reports: Neck pain. denies: Back pain Neurologic: reports: Headache, Head injury. 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 : Kidney stones, Other HEENT: Chronic vision loss, Chronic sinusitis Psych: Other Musculoskeletal: Osteoarthritis, Fibromyalgia, Fatigue, Chronic back pain Derm: None - Past Surgical History Past Surgical History: Yes General: Gastric surgery Ortho: 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, Endometrial ablation, Tubal ligation - Present Medications Home Medications: Ambulatory Orders Medication Instructions Recorded Confirmed Prazosin HCl 5 mg PO QPM 01/23/19 03/30/20 Trazodone HCl 200 mg PO QPM 01/23/19 03/30/20 Duloxetine HCl [Cymbalta] 60 mg PO BID 09/15/19 03/30/20 Insulin Detemir [Levemir Flextouch] 10 units SUBQ DAILY PRN 03/26/20 03/30/20 Acetaminophen 1,000 mg PO Q6HR PRN 03/29/20 03/30/20 Metoclopramide [Reglan] 10 mg PO ACHS 03/29/20 03/30/20 Mirabegron [Myrbetriq] 50 mg PO QPM 03/29/20 03/29/20 Docusate Sodium 100 mg PO PRN PRN 03/30/20 03/30/20 Insulin Aspart [Novolog] 03/30/20 Insulin Detemir [Levemir Flextouch] 12 units SUBQ QPM PRN 03/30/20 03/30/20 Levothyroxine Sodium 112 mcg PO QDAC 03/30/20 03/30/20 bisacodyL [Dulcolax] 5 mg PO PRN PRN 03/30/20 03/30/20 Oxycodone HCl 5 mg PO Q8H PRN #7 tablet 04/22/20 - Allergies Allergies/Adverse Reactions: Allergies Allergy/AdvReac Type Severity Reaction Status Date / Time carisoprodol [From Soma] Allergy Unknown Verified 04/22/20 19:03 divalproex sodium Allergy Rash Verified 04/22/20 19:03 [From Depakote] gabapentin [From Neurontin] Allergy Edema Verified 04/22/20 19:03 lidocaine Allergy Unknown Verified 04/22/20 19:03 nitrofurantoin Allergy Rash Verified 04/22/20 19:03 macrocrystalline * [From Macrodantin] nortriptyline Allergy Unknown Verified 04/22/20 19:03 ondansetron [From Zofran] Allergy Hives Verified 04/22/20 19:03 ondansetron HCl * Allergy Hives Verified 04/22/20 19:03 [From Zofran (as hydrochloride)] pregabalin [From Lyrica] Allergy Headache Verified 04/22/20 19:03 - Social History Does the pt smoke?: Yes Smoking Status: Current every day smoker Does the pt drink ETOH?: No Does the pt have substance abuse?: No - Immunizations Immunizations are current?: Yes Immunizations: TDAP >10years/unknown - POLST Patient has POLST: No POLST Status: DNR PD ED PE NORMAL - Vitals Vital signs reviewed: Yes - General General: Alert and oriented X 3, No acute distress, Well developed/nourished - HEENT HEENT: Atraumatic, PERRL, EOMI, Ears normal, Moist mucous membranes, Pharynx benign - Neck Neck: Supple, no meningeal sign, Other (Mild midline tenderness to palpation. Cervical collar in place. No step-off or deformity.) - Cardiac Cardiac: RRR, Strong equal pulses - Respiratory Respiratory: No respiratory distress, Clear bilaterally - Abdomen Abdomen: Soft, Non tender, Non distended - Back Back: No spinal TTP (No step-off or deformity) - Derm Derm: Warm and dry - Extremities Extremities: Other (Diffuse tenderness over the tibial plateau of the right knee. Mild effusion. Neurovascular intact. No tenderness over the bilateral ankles or hips. Unable to tolerate ligamentous testing of the right knee.) - Neuro Neuro: Alert and oriented X 3, clinical consultant 2-12 intact, No motor deficit, No sensory deficit Eye Opening: Spontaneous Motor: Obeys Commands Verbal: Oriented GCS Score: 15 - Psych Psych: Normal mood, Normal affect Results - Vitals Vitals: Vital Signs - 24 hr 04/22/20 04/22/20 19:03 20:30 Temperature 36.6 C Heart Rate 71 77 Respiratory 18 12 Rate Blood Pressure 131/85 H 122/83 H O2 Saturation 97 97 Oxygen O2 Source Room air - Rads (name of study) Head CT Radiology: Prelim report reviewed, EMP read contemporaneously, See rad report (No acute abnormality) Cervical spine CT Radiology: Prelim report reviewed, EMP read contemporaneously, See rad report (No acute abnormality) Right knee x-ray Radiology: Prelim report reviewed, EMP read contemporaneously, See rad report (1. Superimposed areas of new lucency within the proximal tibia particularly along the lateral tibial plateau, as well as asymmetric compression, appearing most consistent with superimposed acute/subacute fracture. 2. Faintly visualized lucency within the tibial spine, suspicious for fracture. 3. Nondisplaced proximal fibular lucency most consistent with fracture. ) PD MEDICAL DECISION MAKING - ED course Complexity details: reviewed results, re-evaluated patient, considered differential, d/w patient, d/w engagement quality consultant ED course: No acute findings on head CT or cervical spine CT. She does appear to have a tibial plateau fracture. She also may have a tibial spine fracture and a nondisplaced fibular fracture. Discussed the case with Dr. Godfrey, orthopedics on- call who recommends nonweightbearing as much as possible and placed in a knee immobilizer. Recommend that she follow-up in clinic. Patient counseled regarding signs and symptoms for which I believe and urgent re-evaluation would be necessary. Patient with good understanding of and agreement to plan and is comfortable going home at this time This document was made in part using voice recognition software. While efforts are made to proofread this document, sound alike and grammatical errors may occur. Departure - Departure Disposition: 01 Home, Self Care Clinical Impression: Right medial tibial plateau fracture Qualifiers: Encounter type: initial encounter Fracture type: closed Qualified Code(s): S82.131A - Displaced fracture of medial condyle of right tibia, initial encounter for closed fracture Fracture of tibial spine Qualifiers: Encounter type: initial encounter Fracture type: closed Fracture alignment: nondisplaced Laterality: right Qualified Code(s): S82.114A - Nondisplaced fracture of right tibial spine, initial encounter for closed fracture Condition: Good Instructions: ED Fx Knee Follow-Up: Isatu Belle MD [Primary Care Provider] - [facility] [Provider Group] - Within 1 week Prescriptions: Oxycodone HCl 5 mg PO Q8H PRN #7 tablet PRN Reason: pain Comments: You need to use the walker to help you walk and be nonweightbearing as much as possible on the right lower extremity. Follow-up with orthopedics for further care. You can use the oxycodone as needed for breakthrough pain. Stay in the brace. I spoke with Dr. Godfrey from orthopedics [facility] [place]. Do not drink alcohol or drive while on narcotic pain medicine. Note that many narcotic pain relievers also contain tylenol/acetaminophen. Please ensure that your total dose of acetaminophen from all sources does not exceed 3 grams (3000mg) per day. You may constipated on this medication, take a stool softener such as "Colace" twice a day while you are on it. Also recommend a gllo-eig-qishdki laxative such as senna or MiraLAX any day that you do not have a bowel movement. If you received narcotic pain medication in the emergency department, do not drive or operate machinery for the next 24 hours. Discharge Date/Time: 04/22/20 22:00
--- NOTE | 2020-04-22 21:19 | XRAY Report ---
Reason: fall, knee injury Procedure Date: 04/22/2020 Accession Number: [id number] / [id number] Procedure: XR - Knee 4 View RT CPT Code: Final Report FULL RESULT: PROCEDURE: Knee 4 View RT INDICATIONS: fall, knee injury TECHNIQUE: 3 views of the right knee(s) were acquired. COMPARISON: X-ray right knee 03/29/2020. FINDINGS: Bones: There is an extensive healed proximal tibial fracture. However, new areas of lucency are noted along the medial tibia extending to the tibial plateau. There appears to be asymmetric mild compression of the medial tibial plateau. Faintly visualized lucency is noted at the tibial spine. A nondisplaced proximal fibular lucency is present. No suspicious bony lesions. Soft tissues: Mild joint effusion. No suspicious soft tissue calcifications. IMPRESSION: 1. Superimposed areas of new lucency within the proximal tibia particularly along the lateral tibial plateau, as well as asymmetric compression, appearing most consistent with superimposed acute/subacute fracture. 2. Faintly visualized lucency within the tibial spine, suspicious for fracture. 3. Nondisplaced proximal fibular lucency most consistent with fracture. Reviewed by: Christine Gore MD on 04/22/2020 9:14 PM PDT Approved by: Christine Gore MD on 04/22/2020 9:14 PM PDT Station ID: [id number]
--- NOTE | 2020-04-22 21:21 | CT Report ---
Reason: fall, head injury Procedure Date: 04/22/2020 Accession Number: [id number] / [id number] Procedure: CT - HEAD WO CPT Code: Final Report FULL RESULT: PROCEDURE: HEAD WO INDICATIONS: fall, head injury TECHNIQUE: Noncontrast 4.5 mm thick angled axial sections acquired from the foramen magnum to the vertex. For radiation dose reduction, the following was used: automated exposure control, adjustment of mA and/or kV according to patient size. COMPARISON: CT head 03/29/2020, CT cervical spine 04/22/2020. FINDINGS: Image quality: Excellent. CSF spaces: Basal cisterns are patent. No extra-axial fluid collections. Ventricles are normal in size and shape. Brain: No midline shift. No intracranial masses or hemorrhage. Wade-white matter interface is normal. Skull and face: Calvarium and visualized facial bones are intact, without suspicious lesions. Sinuses: Visualized sinuses and mastoids are clear. IMPRESSION: 1. No acute intracranial process. Reviewed by: Christine Gore MD on 04/22/2020 9:17 PM PDT Approved by: Christine Gore MD on 04/22/2020 9:17 PM PDT Station ID: [id number]
--- NOTE | 2020-04-22 21:24 | CT Report ---
Reason: fall, neck injury Procedure Date: 04/22/2020 Accession Number: [id number] / [id number] Procedure: CT - CERVICAL SPINE WO CPT Code: Final Report FULL RESULT: PROCEDURE: CERVICAL SPINE WO INDICATIONS: fall, neck injury TECHNIQUE: Noncontrast 3 mm thick sections acquired from the skull base to the T4 level. Sagittal and coronal reformats were then constructed. For radiation dose reduction, the following was used: automated exposure control, adjustment of mA and/or kV according to patient size. COMPARISON: CT cervical spine 03/29/2020 FINDINGS: Image quality: Excellent. Bones: No fractures or dislocations. Visualized superior ribs are intact. Minimal multilevel degenerative changes are present. Soft tissues: Prevertebral soft tissues are normal in thickness. No paravertebral hematomas. No apical pneumothoraces. Linear right apical call opacity is present, unchanged. IMPRESSION: 1. No visualized fracture or dislocation. 2. Unchanged right apical linear opacity. This could be related to scarring. Interval imaging follow-up with CT chest is recommended in 6 months. Reviewed by: Christine Gore MD on 04/22/2020 9:19 PM PDT Approved by: Christine Gore MD on 04/22/2020 9:19 PM PDT Station ID: [id number]
[2020-04-22 21:28] VITALS: BP 122/83
[2020-04-22] MEDS ORDERED: oxyCODONE 5 MG TABLET PO STA (21:44)
== END 2020-04-22 22:00 | disposition home or self-care (01) ==
LOC: EDUNIT# → ED 18:56
DX: S82.131A Displaced fracture of medial condyle of right tibia, initial encounter for closed fracture (principal); S82.114A Nondisplaced fracture of right tibial spine, initial encounter for closed fracture; S82.831A Other fracture of upper and lower end of right fibula, initial encounter for closed fracture; M54.2 Cervicalgia; R51 Headache; W01.0XXA Fall on same level from slipping, tripping and stumbling without subsequent striking against object, initial encounter; Y93.E9 Activity, other interior property and clothing maintenance; Y92.008 Other place in unspecified non-institutional (private) residence as the place of occurrence of the external cause; E10.42 Type 1 diabetes mellitus with diabetic polyneuropathy; F17.200 Nicotine dependence, unspecified, uncomplicated; Z66 Do not resuscitate
CPT/HCPCS: 70450; 72125; 73564; 99284; A9270

== ENCOUNTER 2020-04-23 16:55 | Emergency (ER) | payer MEDICARE, MEDICAID ==
--- NOTE | 2020-04-23 17:15 | ED Physician Documentation ---
History of Present Illness - Stated complaint Stated Complaint: RT KNEE PX - Chief complaint Chief Complaint: Ext Problem - Additonal information Additional information: 44 year old female returns to the ED after being seen yesterday evening for c/o right knee pain. Seen by my colleague yesterday and had extensive imaging after a fall. she has a hx of previous fx/injury to the [facility] tfoot for which a hard boot is in place. Xray of the knee yesterday showed new lucency in the proximal righ ttibia concerning for acute subacute fx of tibial plateau. Also fibular fracture. 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 niall do recommended pt to be non weight bearing (she uses a wheel chair at home) and hse was to be placed in an knee immobilizer. pt was to f/u with Ortho upon dc. She received an rx for 7 percocet yesterday. she did not fill or begin to take until this afternoon. she is also not wearing the knee immobilizer issued to her yesterday Pt reports that she can't stand the pain. It should be noted that pt seem megan rgic and sleepy at this time. 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: Other : Kidney stones, Other HEENT: Chronic vision loss, Chronic sinusitis Psych: Other Musculoskeletal: Osteoarthritis, Fibromyalgia, Fatigue, Chronic back pain Derm: None - Past Surgical History Past Surgical History: Yes General: Gastric surgery Ortho: Other /AGENT TICKETING GATE: section, Endometrial ablation, Tubal ligation - Present Medications Home Medications: Ambulatory Orders Medication Instructions Recorded Confirmed Prazosin HCl 5 mg PO QPM 01/23/19 03/30/20 Trazodone HCl 200 mg PO QPM 01/23/19 03/30/20 Duloxetine HCl [Cymbalta] 60 mg PO BID 09/15/19 03/30/20 Insulin Detemir [Levemir Flextouch] 10 units SUBQ DAILY PRN 03/26/20 03/30/20 Acetaminophen 1,000 mg PO Q6HR PRN 03/29/20 03/30/20 Metoclopramide [Reglan] 10 mg PO ACHS 03/29/20 03/30/20 Mirabegron [Myrbetriq] 50 mg PO QPM 03/29/20 03/29/20 Docusate Sodium 100 mg PO PRN PRN 03/30/20 03/30/20 Insulin Aspart [Novolog] 03/30/20 Insulin Detemir [Levemir Flextouch] 12 units SUBQ QPM PRN 03/30/20 03/30/20 Levothyroxine Sodium 112 mcg PO QDAC 03/30/20 03/30/20 bisacodyL [Dulcolax] 5 mg PO PRN PRN 03/30/20 03/30/20 Oxycodone HCl 5 mg PO Q8H PRN #7 tablet 04/22/20 - Allergies Allergies/Adverse Reactions: Allergies Allergy/AdvReac Type Severity Reaction Status Date / Time carisoprodol [From Soma] Allergy Unknown Verified 04/23/20 17:00 divalproex sodium Allergy Rash Verified 04/23/20 17:00 [From Depakote] gabapentin [From Neurontin] Allergy Edema Verified 04/23/20 17:00 lidocaine Allergy Unknown Verified 04/23/20 17:00 nitrofurantoin Allergy Rash Verified 04/23/20 17:00 macrocrystalline * [From Macrodantin] nortriptyline Allergy Unknown Verified 04/23/20 17:00 ondansetron [From Zofran] Allergy Hives Verified 04/23/20 17:00 ondansetron HCl * Allergy Hives Verified 04/23/20 17:00 [From Zofran (as hydrochloride)] pregabalin [From Lyrica] Allergy Headache Verified 04/23/20 17:00 - Social History Does the pt smoke?: Yes Smoking Status: Current every day smoker Does the pt drink ETOH?: No Does the pt have substance abuse?: No - Immunizations Immunizations are current?: Yes Immunizations: TDAP >10years/unknown - POLST Patient has POLST: No POLST Status: DNR PD ED PE NORMAL - General General: Alert and oriented X 3 - HEENT HEENT: Atraumatic - Cardiac Cardiac: RRR, No murmur, Strong equal pulses - Respiratory Respiratory: No respiratory distress - Abdomen Abdomen: Normal bowel sounds - Extremities Extremities: Other (diffuse tenderness over the tibial plateau. no erythema, mild swelling with some effusion palpable. distal DP pulse intact. 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 seen for similar yesterday. - no new falls or trauma; defer new imaging - Pt did not fill the rx given to her yesterday and took percocet prior to arrival today. I gave her toradol in the ED and she reported some relief of pain - there is concern for possible opiate misuse and visit to the ED in September 2019 for overdose; I do not feel that additional opiate rx is warranted at this time - Pt advised to continue to f/u with Orthopedics as referred yesterday and to wear the knee immobilizer Departure - Departure Disposition: Home, Self Care Clinical Impression: Right knee pain Qualifiers: Chronicity: unspecified Qualified Code(s): M25.561 - Pain in right knee Condition: Stable Record reviewed to determine appropriate education?: Yes Instructions: ED RICE Follow-Up: [facility] [Provider Group] Comments: Jammie Please wear the knee immobilizer issued to you yesterday. Stay of the leg as much as possible I can not offer you new prescription for pain today Please call [facility] to be seen as soon as possible Resting the knee, icing may be helpful adjuncts to help manage the pain as well
[2020-04-23] MEDS ORDERED: KETOROLAC 30 MG/ML VIAL IM STA (17:23)
[2020-04-23 18:13] VITALS: BP 144/85
== END 2020-04-23 18:31 | disposition home or self-care (01) ==
LOC: ED 16:55
DX: M25.561 Pain in right knee (principal); E10.9 Type 1 diabetes mellitus without complications; F17.200 Nicotine dependence, unspecified, uncomplicated; Z79.4 Long term (current) use of insulin
CPT/HCPCS: 96372; 99281; 99283

== ENCOUNTER 2020-04-24 11:11 | Emergency (ER) | payer MEDICARE, MEDICAID ==
--- NOTE | 2020-04-24 11:41 | ED Physician Documentation ---
PD HPI LOWER EXT INJURY - Stated complaint Stated Complaint: KNEE PX - Chief complaint Chief Complaint: General - History obtained from History obtained from: Patient - History of Present Illness PD HPI LOW EXT INJURY LOCATION: Right, Knee Type of injury: Fall, Twist Where injury occurred: Home Timing - onset: How many days ago (2) Timing - details: Abrupt onset, Still present (She has been unable to get up and ambulate easily because of the pain in the knee and is unable to really use crutches or walker with arm strength and balance. She had sort of fallen again today without reinjury per se.) Worsened by: Moving, Other (any weight bearing) Associated symptoms: Swelling (around the knee). No: Weakness, Numbness Contributing factors: No: Anticoagulated Recently seen: Emergency Dept (Seen 2 days ago with a fall at which point the knee fracture was diagnosed. She also had CT scans of her head neck and spine which were normal.) Review of Systems Constitutional: denies: Fever, Chills, Myalgias Throat: denies: Sore throat Cardiac: denies: Chest pain / pressure Respiratory: denies: Dyspnea, Cough Skin: denies: Abrasion (s), Laceration (s) Neurologic: reports: Altered mental status (sleepy after pain meds Rx for knee) Endocrine: denies: Weight loss PD PAST MEDICAL HISTORY - Past Medical History Cardiovascular: High cholesterol, Murmur Respiratory: COPD, Pneumonia, Shortness of breath Neuro: Headaches, Migraines, Peripheral neuropathy, Seizure disorder, Other Endocrine/Autoimmune: Type 1 diabetes GI: GERD, GI bleed, Ulcers, 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 : Kidney stones, Other HEENT: Chronic vision loss, Chronic sinusitis Psych: Other Musculoskeletal: Osteoarthritis, Fibromyalgia, Fatigue, Chronic back pain Derm: None - Past Surgical History Past Surgical History: Yes General: Gastric surgery Ortho: Other /LIVE GAMES DEALER: section, Endometrial ablation, Tubal ligation - Present Medications Home Medications: Ambulatory Orders Medication Instructions Recorded Confirmed Prazosin HCl 5 mg PO QPM 01/23/19 03/30/20 Trazodone HCl 200 mg PO QPM 01/23/19 03/30/20 Duloxetine HCl [Cymbalta] 60 mg PO BID 09/15/19 03/30/20 Insulin Detemir [Levemir Flextouch] 10 units SUBQ DAILY PRN 03/26/20 03/30/20 Acetaminophen 1,000 mg PO Q6HR PRN 03/29/20 03/30/20 Metoclopramide [Reglan] 10 mg PO ACHS 03/29/20 03/30/20 Mirabegron [Myrbetriq] 50 mg PO QPM 03/29/20 03/29/20 Docusate Sodium 100 mg PO PRN PRN 03/30/20 03/30/20 Insulin Aspart [Novolog] 03/30/20 Insulin Detemir [Levemir Flextouch] 12 units SUBQ QPM PRN 03/30/20 03/30/20 Levothyroxine Sodium 112 mcg PO QDAC 03/30/20 03/30/20 bisacodyL [Dulcolax] 5 mg PO PRN PRN 03/30/20 03/30/20 Oxycodone HCl 5 mg PO Q8H PRN #7 tablet 04/22/20 - Allergies Allergies/Adverse Reactions: Allergies Allergy/AdvReac Type Severity Reaction Status Date / Time carisoprodol [From Soma] Allergy Unknown Verified 04/24/20 11:16 divalproex sodium Allergy Rash Verified 04/24/20 11:16 [From Depakote] gabapentin [From Neurontin] Allergy Edema Verified 04/24/20 11:16 lidocaine Allergy Unknown Verified 04/24/20 11:16 nitrofurantoin Allergy Rash Verified 04/24/20 11:16 macrocrystalline * [From Macrodantin] nortriptyline Allergy Unknown Verified 04/24/20 11:16 ondansetron [From Zofran] Allergy Hives Verified 04/24/20 11:16 ondansetron HCl * Allergy Hives Verified 04/24/20 11:16 [From Zofran (as hydrochloride)] pregabalin [From Lyrica] Allergy Headache Verified 04/24/20 11:16 - Social History Does the pt smoke?: Yes Smoking Status: Current every day smoker Does the pt drink ETOH?: No Does the pt have substance abuse?: No - Immunizations Immunizations are current?: Yes Immunizations: TDAP >10years/unknown - POLST Patient has POLST: No POLST Status: DNR PD ED PE NORMAL - Vitals Vital signs reviewed: Yes - General General: Alert and oriented X 3 (slightly sleepy), No acute distress, Well developed/nourished - HEENT HEENT: Pharynx benign - Neck Neck: Supple, no meningeal sign, No adenopathy - Cardiac Cardiac: RRR, No murmur - Respiratory Respiratory: Clear bilaterally - Abdomen Abdomen: Soft, Non tender, Other (obese) - Derm Derm: Normal color, Warm and dry - Extremities Extremities: No edema, No calf tenderness / cord, Other (The right knee is in a knee immobilizer. There is some swelling and effusion moderately in the knee. Her right ankle is in a boot orthosis. She has good color and capillary refill in her toes) - Neuro Neuro: Alert and oriented X 3, No motor deficit, Normal speech Results - Vitals Vitals: Vital Signs - 24 hr 04/24/20 04/24/20 11:16 13:43 Temperature 36.5 C Heart Rate 102 H 93 Respiratory 18 14 Rate Blood Pressure 142/95 H 136/93 H O2 Saturation 98 99 Oxygen O2 Source Room air PD MEDICAL DECISION MAKING - ED course Complexity details: reviewed old records, reviewed results (Review of her prior films for the knee x-ray. I did a CT of the knee to better evaluate the fracture and it showed a complex fracture of the plateau with depression. This does look like it needs repair.), re-evaluated patient (The patient had had her ankle repaired at [facility] and likes their orthopedic service. She is a complicated patient with diabetes and other issues and will be more difficult that way. Had talked with [facility] and they accepted the patient in transfer.), considered differential, d/w patient Departure - Departure Disposition: 02 Transfer Acute Care Hosp Clinical Impression: Blood glucose abnormal Tibial plateau fracture, right Qualifiers: Encounter type: subsequent encounter Fracture type: closed Diabetes Qualifiers: Diabetes mellitus type: type 1 Diabetes mellitus complication status: with hyperglycemia Qualified Code(s): E10.65 - Type 1 diabetes mellitus with hyperglycemia Condition: Stable Record reviewed to determine appropriate education?: Yes
[2020-04-24] MEDS ORDERED: HYDROcod/ACETAM 5/325 MG TABLET PO STA ×2 (12:15→15:54)
--- NOTE | 2020-04-24 13:34 | CT Report ---
Reason: knee fracture 2 days ago Procedure Date: 04/24/2020 Accession Number: [id number] / [id number] Procedure: CT - LOWER EXTREMITY WO - RT CPT Code: Final Report FULL RESULT: PROCEDURE: LOWER EXTREMITY WO - RT INDICATIONS: knee fracture 2 days ago TECHNIQUE: Noncontrast 3 mm axial sections acquired of the right knee, with coronal and sagittal reformats. COMPARISON: Right knee radiograph dated 04/22/2020. FINDINGS: Image quality: Excellent. Bones: There is subacute to old proximal tibial shaft fracture with evidence of prior internal fixation. Exuberant callus formation surrounding the proximal to mid tibial shaft spiral fracture site is seen. Superimposed acute comminuted fracture involving proximal tibia is seen with fracture line extending to medial and lateral tibial plateau. There is anterior, medial and laterally displaced fractured fragments up to 6 mm diastases at the fracture site anteriorly, 5 mm diastases at fracture sites medially and laterally. There is also 5 mm depression at lateral tibial plateau fracture site. No fracture is seen in distal femur, proximal ulnar, or patella. No suspicious intraosseous lesion. Soft tissues: Large fat fluid level is noted in the patellofemoral joint consistent with lipoma hemarthrosis. No calcified intra-articular loose body is seen. Distal quadriceps tendon and patellar tendon are grossly intact. IMPRESSION: 1. Acute comminuted, slightly displaced and depressed fracture involving the proximal tibia extending to both medial and lateral tibial plateau with depression lateral tibial plateau fracture site as above. 2. Subacute to old proximal tibial shaft fracture with evidence of prior internal fixation. 3. Large lipohemarthrosis. Reviewed by: Tayo Hernaneds MD on 04/24/2020 1:33 PM PDT Approved by: Tayo Hernandes MD on 04/24/2020 1:33 PM PDT Station ID: [id number]
[2020-04-24 15:59] VITALS: BP 142/96
== END 2020-04-24 16:00 | disposition short-term general hospital (02) ==
LOC: ED 11:11
DX: S82.141A Displaced bicondylar fracture of right tibia, initial encounter for closed fracture (principal); W19.XXXA Unspecified fall, initial encounter; Z91.81 History of falling; Y92.009 Unspecified place in unspecified non-institutional (private) residence as the place of occurrence of the external cause; E10.65 Type 1 diabetes mellitus with hyperglycemia; E10.42 Type 1 diabetes mellitus with diabetic polyneuropathy; F17.200 Nicotine dependence, unspecified, uncomplicated
CPT/HCPCS: 73700; 99284; 99285; A9270

== ENCOUNTER 2020-06-05 12:59 | Outpatient (CLI) | payer MEDICARE, MEDICAID ==
--- NOTE | 2020-06-05 15:51 | XRAY Report ---
PROCEDURE: Knee 3 View RT INDICATIONS: surgery f/u TECHNIQUE: 3 views of the right knee(s) were acquired. COMPARISON: None. FINDINGS: Bones: No acute fractures or dislocations. No suspicious bony lesions. Soft tissues: No joint effusion. No suspicious soft tissue calcifications. IMPRESSION: Healing complex proximal tibial fracture with virtual anatomic alignment established by fixation plates and screws. No acute disease. Reviewed by: Chris Nieves MD on 06/05/2020 3:49 PM PDT Approved by: Chris Nieves MD on 06/05/2020 3:49 PM PDT Station ID: [id number]
--- NOTE | 2020-06-05 17:02 | XRAY Report ---
PROCEDURE: Tib/Fib RT INDICATIONS: surgery f/u TECHNIQUE: 2 views of the tibia and fibula were acquired. COMPARISON: Prior preoperative plain films of the knee region to include the upper half of the right tibia and fibula dated 03/29/2020 reviewed FINDINGS: Bones: No recognized prior fractures or dislocations. No suspicious bony lesions. Extensive interv ention by orthopedic surgical staff comparison established medial and lateral plating and screw fixat ion extending from the tibial plateau to the mid shaft of the diaphysis on the right. The fibula jasiel ins free of fixation devices. Soft tissues: No suspicious soft tissue calcifications or masses. IMPRESSION: No evidence of new trauma, medial and lateral tibial plateau and metadiaphyseal fracture fixations. C urrently no definite loosening or evidence of osteomyelitis is found. Reviewed by: Chris Nieves MD on 06/05/2020 5:00 PM PDT Approved by: Chris Nieves MD on 06/05/2020 5:00 PM PDT Station ID: [id number]
== END 2020-06-05 13:00 | disposition home or self-care (01) ==
LOC: DI.N 12:59
PROVIDERS: ATTEND Internal Medicine
DX: S82.201D Unspecified fracture of shaft of right tibia, subsequent encounter for closed fracture with routine healing (principal)

== ENCOUNTER 2020-06-10 05:10 | Outpatient (CLI) | payer MEDICARE, MEDICAID | END 2020-06-10 05:11 | disposition critical access hospital (66) | LOC: EMS 05:10 | PROVIDERS: ATTEND Surgery | DX: M25.561 Pain in right knee (principal); R73.09 Other abnormal glucose; R41.0 Disorientation, unspecified; W06.XXXA Fall from bed, initial encounter; Y92.003 Bedroom of unspecified non-institutional (private) residence as the place of occurrence of the external cause | CPT/HCPCS: A0425; A0427 ==

== ENCOUNTER 2020-06-10 05:29 | Emergency (ER) | payer MEDICARE, MEDICAID ==
[2020-06-10] MEDS ORDERED: INSULIN REGULAR HUMAN 100 UNIT/1 ML 10 ML MDV IVP STA ×3 (05:43→07:40)
[2020-06-10] MEDS ORDERED: SODIUM CHLORIDE 0.9% 1,000 ML IV STA ×3 (05:43→07:40)
[2020-06-10] MEDS ORDERED: HYDROmorphone 1 MG/ML CARPUJECT IVP STA (05:44)
[2020-06-10 06:31] LABS: MUDS CUTOFF CONCENTRATIONS CUTOFF CONC BELOW:
[2020-06-10 06:33] LABS: BILIRUBIN,URINE NEGATIVE (NEGATIVE); GLUCOSE, URINE (UA) >=1000 mg/dL (NEGATIVE); KETONES,URINE (UA) NEGATIVE (NEGATIVE); LEUKOCYTE ESTERASE, URINE NEGATIVE (NEGATIVE); NITRITE,URINE NEGATIVE (NEGATIVE); OCCULT BLOOD,URINE NEGATIVE (NEGATIVE); PROTEIN,URINE NEGATIVE (NEGATIVE); UROBILINOGEN,URINE 0.2 (NORMAL) E.U./dL (NORMAL)
[2020-06-10 06:34] LABS: CLARITY,URINE CLEAR (CLEAR)
--- NOTE | 2020-06-10 06:44 | ED Physician Documentation ---
PD HPI ALTERED MENTAL STATUS - Stated complaint Stated Complaint: HIGH BLOOD SUGAR/ CONFUSION - Chief complaint Chief Complaint: Ext Problem - History obtained from History obtained from: Patient, Family, EMS - History of Present Illness Timing - onset: Today, Last night Timing - duration: Days (1) Timing - details: Gradual onset, Still present Quality / character: Confused, Agitated (Reportedly was fidgeting and doing inappropriate behavior. EMS was called because of the increased confusion since last night into today. They found her insulin pump tubing disconnected and she had it in her mouth. She also was nonsensically answering questions) Associated symptoms: No: Fever, Headache, Cough Contributing factors: No: Recent med change (she says she had run out of pain meds several days ago. Her blood sugar was reading high per EMS. 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 : Kidney stones, Other HEENT: Chronic vision loss, Chronic sinusitis Psych: Other Musculoskeletal: Osteoarthritis, Fibromyalgia, Fatigue, Chronic back pain Derm: None - Past Surgical History Past Surgical History: Yes General: Gastric surgery Ortho: Other /LOGISTIC 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, Endometrial ablation, Tubal ligation - Present Medications Home Medications: Ambulatory Orders Medication Instructions Recorded Confirmed Prazosin HCl 5 mg PO QPM 01/23/19 03/30/20 Trazodone HCl 200 mg PO QPM 01/23/19 03/30/20 Duloxetine HCl [Cymbalta] 60 mg PO BID 09/15/19 03/30/20 Insulin Detemir [Levemir Flextouch] 10 units SUBQ DAILY PRN 03/26/20 03/30/20 Acetaminophen 1,000 mg PO Q6HR PRN 03/29/20 03/30/20 Metoclopramide [Reglan] 10 mg PO ACHS 03/29/20 03/30/20 Mirabegron [Myrbetriq] 50 mg PO QPM 03/29/20 03/29/20 Docusate Sodium 100 mg PO PRN PRN 03/30/20 03/30/20 Insulin Aspart [Novolog] 03/30/20 Insulin Detemir [Levemir Flextouch] 12 units SUBQ QPM PRN 03/30/20 03/30/20 Levothyroxine Sodium 112 mcg PO QDAC 03/30/20 03/30/20 bisacodyL [Dulcolax] 5 mg PO PRN PRN 03/30/20 03/30/20 Oxycodone HCl 5 mg PO Q8H PRN #7 tablet 04/22/20 - Allergies Allergies/Adverse Reactions: Allergies Allergy/AdvReac Type Severity Reaction Status Date / Time carisoprodol [From Soma] Allergy Unknown Verified 06/10/20 05:53 divalproex sodium Allergy Rash Verified 06/10/20 05:53 [From Depakote] gabapentin [From Neurontin] Allergy Edema Verified 06/10/20 05:53 lidocaine Allergy Unknown Verified 06/10/20 05:53 nitrofurantoin Allergy Rash Verified 06/10/20 05:53 macrocrystalline * [From Macrodantin] nortriptyline Allergy Unknown Verified 06/10/20 05:53 ondansetron [From Zofran] Allergy Hives Verified 06/10/20 05:53 ondansetron HCl * Allergy Hives Verified 06/10/20 05:53 [From Zofran (as hydrochloride)] pregabalin [From Lyrica] Allergy Headache Verified 06/10/20 05:53 - Social History Does the pt smoke?: Yes Smoking Status: Current every day smoker Does the pt drink ETOH?: No Does the pt have substance abuse?: No - Immunizations Immunizations are current?: Yes Immunizations: TDAP >10years/unknown - POLST Patient has POLST: No POLST Status: DNR Results - Vitals Vitals: Vital Signs - 24 hr 06/10/20 06/10/20 06/10/20 05:30 06:11 06:34 Temperature 36.8 C 36.2 C L Heart Rate 105 H 104 H 108 H Respiratory 21 24 26 H Rate Blood Pressure 103/64 107/50 L 111/65 O2 Saturation 98 98 98 Oxygen O2 Source Room air - Labs Labs: Laboratory Tests 06/10/20 06:20 Urine Color YELLOW Urine Clarity CLEAR Urine pH 7.0 Ur Specific [place] <=1.005 Urine Protein NEGATIVE Urine Glucose (UA) >=1000 H Urine Ketones NEGATIVE Urine Occult Blood NEGATIVE Urine Nitrite NEGATIVE Urine Bilirubin NEGATIVE Urine Urobilinogen 0.2 (NORMAL) Ur Leukocyte Esterase NEGATIVE Ur Microscopic Review NOT INDICATED Urine Culture Comments NOT INDICATED
[2020-06-10 06:45] LABS: AMPHETAMINE SCREEN,URINE NEGATIVE (NEGATIVE); BENZODIAZEPINES SCREEN, URINE POSITIVE (NEGATIVE); COCAINE SCREEN URINE NEGATIVE (NEGATIVE); METHADONE SCREEN, URINE NEGATIVE (NEGATIVE); METHAMPHETAMINES SCREEN, URINE NEGATIVE (NEGATIVE); OPIATE SCREEN, URINE NEGATIVE (NEGATIVE); OXYCODONE SCREEN, URINE NEGATIVE (NEGATIVE); PROPOXYPHENE SCREEN, URINE NEGATIVE (NEGATIVE); TRICYCLIC ANTIDEPRESSANT,URINE NEGATIVE (NEGATIVE)
[2020-06-10 06:49] LABS: BASOPHILS # (AUTO) 0.1 10^3/uL (0.0-0.1); BASOPHILS % (AUTO) 0.6 %; EOSINOPHILS # (AUTO) 0.1 10^3/uL (0.0-0.7); EOSINOPHILS % (AUTO) 0.8 %; HGB - HEMOGLOBIN 9.4 g/dL (12.0-16.0); LYMPHOCYTES # (AUTO) 0.7 10^3/uL (1.5-3.5); LYMPHOCYTES % (AUTO) 7.8 %; MEAN CORPUSCULAR HEMOGLOBIN 26.5 pg (27.0-31.0); MEAN CORPUSCULAR HGB CONC 30.4 g/dL (32.0-36.0); MEAN PLATELET VOLUME 9.9 fL (7.9-10.8); NEUTROPHILS # (AUTO) 7.1 10^3/uL (1.5-6.6); NEUTROPHILS % (AUTO) 79.2 %; PLT - PLATELET COUNT 335 10^3/uL (130-450); RED BLOOD COUNT 3.55 10^6/uL (4.20-5.40); RED CELL DISTRIBUTION WIDTH 15.4 % (12.0-15.0); VBG PCO2 34.4 mmHg (41-51); VBG PH 7.356 (7.31-7.41); VBG PO2 51.3 mmHg (25-47); VBG TOTAL CO2 19.9 mmol/L (24-29)
[2020-06-10 07:03] LABS: KETONES, SERUM (ACETEST) NEGATIVE (NEGATIVE)
[2020-06-10 07:12] LABS: ACETAMINOPHEN < 10 ug/mL (10-30); ALBUMIN 3.1 g/dL (3.2-5.5); ALKALINE PHOSPHATASE 101 IU/L (42-121); ALT ALANINE AMINOTRANSFERASE 13 IU/L (10-60); AST ASPARTATE AMINOTRANSFERASE 15 IU/L (10-42); BILIRUBIN,TOTAL 0.7 mg/dL (0.2-1.0); BUN - BLOOD UREA NITROGEN 16 mg/dL (6-20); CALCIUM 7.6 mg/dL (8.5-10.3); CARBON DIOXIDE - CO2 19 mmol/L (21-32); CHLORIDE 99 mmol/L (101-111); CREATININE 1.3 mg/dL (0.4-1.0); LIPASE 25 U/L (22-51); MAGNESIUM 1.8 mg/dL (1.7-2.8); SALICYLATE < 6.0 mg/dL; SODIUM 130 mmol/L (135-145); TOTAL PROTEIN 6.3 g/dL (6.7-8.2)
[2020-06-10 07:13] LABS: GLUCOSE 699 mg/dL (70-100)
[2020-06-10] MEDS ORDERED: INSULIN REGULAR HUMAN 100 UNIT/1 ML 10 ML MDV SUBQ STA (07:16)
--- NOTE | 2020-06-10 09:46 | ED Physician Documentation ---
ED Addendum - Addendum Addendum: 06/10/20 10:[address], no acute disease PD MEDICAL DECISION MAKING - ED course Complexity details: reviewed results, re-evaluated patient, considered differential, d/w patient ED course: Head CT does not show any acute abnormalities. Her mental status seemed to return back to her baseline with correction of her hyperglycemia. She states she does have insulin at home and reloaded her insulin pump yesterday. She states that it has been off for 24 hours. No fevers. No cough. She states that she did fall and hit her head, therefore the head CT was performed. Patient is well-appearing, nontoxic. Afebrile. Tolerating p.o. without difficulty. Patient counseled regarding signs and symptoms for which I believe and urgent re-evaluation would be necessary. Patient with good understanding of and agreement to plan and is comfortable going home at this time This document was made in part using voice recognition software. While efforts are made to proofread this document, sound alike and grammatical errors may occur. Departure - Departure Disposition: 01 Home, Self Care Clinical Impression: Hyperglycemia due to diabetes mellitus Altered mental status Qualifiers: Altered mental status type: transient alteration of awareness Qualified Code(s): R40.4 - Transient alteration of awareness Condition: Good Instructions: ED Hyperglycemia Diabetic Follow-Up: Isatu Belle MD [Primary Care Provider] - Within 3 Days Comments: You need to restart your insulin pump today. Return if you worsen. Follow-up with your doctor for further care.
--- NOTE | 2020-06-10 10:03 | CT Report ---
PROCEDURE: HEAD WO INDICATIONS: ALOC TECHNIQUE: Noncontrast 4.5 mm thick angled axial sections acquired from the foramen magnum to the vertex. For r adiation dose reduction, the following was used: automated exposure control, adjustment of mA and/or kV according to patient size. COMPARISON: CT haed without contrast 04/22/2020. FINDINGS: Image quality: Excellent. CSF spaces: Basal cisterns are patent. No extra-axial fluid collections. Ventricles are normal in size and shape. Brain: No midline shift. No intracranial masses or hemorrhage. Wade-white matter interface is norm al. Mild cerebral volume loss. Skull and face: Calvarium and visualized facial bones are intact, without suspicious lesions. Sinuses: Visualized sinuses and mastoids are clear. IMPRESSION: No acute intracranial abnormality. Reviewed by: Saul Lantigua MD on 06/10/2020 10:02 AM PDT Approved by: Saul Lantigua MD on 06/10/2020 10:02 AM PDT Station ID: [id number]
[2020-06-10 10:09] VITALS: BP 120/77
== END 2020-06-10 10:40 | disposition home or self-care (01) ==
LOC: EDUNIT# → ED 05:29
DX: T85.624A Displacement of insulin pump, initial encounter (principal); T38.3X6A Underdosing of insulin and oral hypoglycemic [antidiabetic] drugs, initial encounter; E10.65 Type 1 diabetes mellitus with hyperglycemia; E10.42 Type 1 diabetes mellitus with diabetic polyneuropathy; F17.200 Nicotine dependence, unspecified, uncomplicated; Z66 Do not resuscitate
CPT/HCPCS: 36415; 70450; 80053; 81003; 82009; 82803; 83690; 83735; 85025; 96361; 96374; 99281; 99284; J1170; J1815; 80306; 80307; 80320; 80329; 81001; 87086

== ENCOUNTER 2020-07-31 03:17 | Emergency (ER) | payer MEDICARE, MEDICAID ==
--- NOTE | 2020-07-31 03:19 | ED Physician Documentation ---
History of Present Illness - Stated complaint Stated Complaint: VOMITING - History obtained from History obtained from: Patient - Additonal information Additional information: 45-year-old female with history of insulin-dependent diabetes presents with vomiting, denies fevers or abdominal pain or alcohol or drug use.Denies abdominal pain or syncope. Review of Systems Constitutional: reports: Reviewed and negative Eyes: reports: Reviewed and negative Ears: reports: Reviewed and negative Nose: reports: Reviewed and negative Throat: reports: Reviewed and negative Cardiac: reports: Reviewed and negative Respiratory: reports: Reviewed and negative GI: reports: Nausea, Vomiting : reports: Reviewed and negative Skin: reports: Reviewed and negative Musculoskeletal: reports: Reviewed and negative Neurologic: reports: Reviewed and negative Psychiatric: reports: Reviewed and negative Endocrine: reports: Reviewed and negative Immunocompromised: reports: Reviewed and negative PD PAST MEDICAL HISTORY - Past Medical History Cardiovascular: High cholesterol, Murmur Respiratory: COPD, Pneumonia, Shortness of breath Neuro: Headaches, Migraines, Peripheral neuropathy, Seizure disorder, Other Endocrine/Autoimmune: Type 1 diabetes GI: GERD, GI bleed, Ulcers, 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: Other : Kidney stones, Other HEENT: Chronic vision loss, Chronic sinusitis Psych: Other Musculoskeletal: Osteoarthritis, Fibromyalgia, Fatigue, Chronic back pain Derm: None - Past Surgical History Past Surgical History: Yes General: Gastric surgery Ortho: Other /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: section, Endometrial ablation, Tubal ligation - Present Medications Home Medications: Ambulatory Orders Medication Instructions Recorded Confirmed Prazosin HCl 5 mg PO QPM 01/23/19 03/30/20 Trazodone HCl 200 mg PO QPM 01/23/19 03/30/20 Duloxetine HCl [Cymbalta] 60 mg PO BID 09/15/19 03/30/20 Insulin Detemir [Levemir Flextouch] 10 units SUBQ DAILY PRN 03/26/20 03/30/20 Acetaminophen 1,000 mg PO Q6HR PRN 03/29/20 03/30/20 Metoclopramide [Reglan] 10 mg PO ACHS 03/29/20 03/30/20 Mirabegron [Myrbetriq] 50 mg PO QPM 03/29/20 03/29/20 Docusate Sodium 100 mg PO PRN PRN 03/30/20 03/30/20 Insulin Aspart [Novolog] 03/30/20 Insulin Detemir [Levemir Flextouch] 12 units SUBQ QPM PRN 03/30/20 03/30/20 Levothyroxine Sodium 112 mcg PO QDAC 03/30/20 03/30/20 bisacodyL [Dulcolax] 5 mg PO PRN PRN 03/30/20 03/30/20 Oxycodone HCl 5 mg PO Q8H PRN #7 tablet 04/22/20 Promethazine Supp [Phenergan Supp] 25 mg ID BID PRN #7 supp 07/31/20 - Allergies Allergies/Adverse Reactions: Allergies Allergy/AdvReac Type Severity Reaction Status Date / Time carisoprodol [From Soma] Allergy Unknown Verified 06/10/20 05:53 divalproex sodium Allergy Rash Verified 06/10/20 05:53 [From Depakote] gabapentin [From Neurontin] Allergy Edema Verified 06/10/20 05:53 lidocaine Allergy Unknown Verified 06/10/20 05:53 nitrofurantoin Allergy Rash Verified 06/10/20 05:53 macrocrystalline * [From Macrodantin] nortriptyline Allergy Unknown Verified 06/10/20 05:53 ondansetron [From Zofran] Allergy Hives Verified 06/10/20 05:53 ondansetron HCl * Allergy Hives Verified 06/10/20 05:53 [From Zofran (as hydrochloride)] pregabalin [From Lyrica] Allergy Headache Verified 06/10/20 05:53 - Social History Does the pt smoke?: Yes Smoking Status: Current every day smoker Does the pt drink ETOH?: No Does the pt have substance abuse?: No - Immunizations Immunizations are current?: Yes Immunizations: TDAP >10years/unknown - POLST Patient has POLST: No POLST Status: DNR PD ED PE NORMAL - Vitals Vital signs reviewed: Yes - General General: Alert and oriented X 3, No acute distress, Well developed/nourished - HEENT HEENT: Atraumatic, PERRL, Pharynx benign - Neck Neck: Supple, no meningeal sign, No JVD - Cardiac Cardiac: RRR, No murmur - Respiratory Respiratory: No respiratory distress, Clear bilaterally - Abdomen Abdomen: Normal bowel sounds, Soft, Non tender, Non distended, No organomegaly - Female Female : Pt declined - Rectal Rectal: Pt declined - Back Back: No CVA TTP, No spinal TTP - Derm Derm: Normal color, Warm and dry, No rash - Extremities Extremities: No deformity, No tenderness to palpate, Normal ROM s pain, No edema, No calf tenderness / cord - Neuro Neuro: Alert and oriented X 3, 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, No motor deficit, No sensory deficit, Normal speech - Psych Psych: Normal mood, Normal affect Results - Vitals Vitals: Vital Signs - 24 hr 07/31/20 03:25 Temperature 37.9 C H Heart Rate 88 Respiratory 14 Rate Blood Pressure 121/79 O2 Saturation 99 Oxygen O2 Source Room air - EKG (time done) 04:53 Rate: Other (no stemi) - Labs Labs: Laboratory Tests 07/31/20 07/31/20 07/31/20 03:37 03:45 04:00 WBC 6.7 RBC 4.21 Hgb 11.0 L Hct 35.4 L MCV 84.1 MCH 26.1 L MCHC 31.1 L RDW 17.5 H Plt Count 324 MPV 9.8 Neut # (Auto) 3.6 Lymph # (Auto) 1.9 Refugio # (Auto) 0.5 Eos # (Auto) 0.6 Baso # (Auto) 0.1 Absolute Nucleated RBC 0.00 Nucleated RBC % 0.0 PT INR APTT VBG pH VBG pCO2 VBG pO2 VBG HCO3 VBG Total CO2 VBG O2 Saturation VBG Base Excess Sodium Potassium Chloride Carbon Dioxide Anion Gap BUN Creatinine Estimated GFR (MDRD) Glucose POC Whole Bld Glucose 279 H Lactic Acid Calcium Magnesium Total Bilirubin AST ALT Alkaline Phosphatase Total Creatine Kinase Troponin I High Sens B-Natriuretic Peptide Total Protein Albumin Globulin Albumin/Globulin Ratio Lipase TSH Serum HCG, Qual Salicylates Acetaminophen Ethyl Alcohol Serum Ketones Influenza A (Rapid) Negative Influenza B (Rapid) Negative 07/31/20 07/31/20 07/31/20 04:00 04:00 04:00 WBC RBC Hgb Hct MCV MCH MCHC RDW Plt Count MPV Neut # (Auto) Lymph # (Auto) Refugio # (Auto) Eos # (Auto) Baso # (Auto) Absolute Nucleated RBC Nucleated RBC % PT 10.8 INR 1.0 APTT 27.6 VBG pH VBG pCO2 VBG pO2 VBG HCO3 VBG Total CO2 VBG O2 Saturation VBG Base Excess Sodium 132 L Potassium 3.9 Chloride 100 L Carbon Dioxide 22 Anion Gap 10.0 BUN 14 Creatinine 0.9 Estimated GFR (MDRD) 67 L Glucose 299 H POC Whole Bld Glucose Lactic Acid Calcium 8.8 Magnesium 2.0 Total Bilirubin 0.5 AST 12 ALT 14 Alkaline Phosphatase 81 Total Creatine Kinase 84 Troponin I High Sens B-Natriuretic Peptide 36 Total Protein 7.0 Albumin 3.6 Globulin 3.4 Albumin/Globulin Ratio 1.1 Lipase 40 TSH Serum HCG, Qual Salicylates < 6.0 Acetaminophen < 10 L Ethyl Alcohol < 5.0 Serum Ketones NEGATIVE Influenza A (Rapid) Influenza B (Rapid) 07/31/20 07/31/20 07/31/20 04:00 04:00 04:00 WBC RBC Hgb Hct MCV MCH MCHC RDW Plt Count MPV Neut # (Auto) Lymph # (Auto) Refugio # (Auto) Eos # (Auto) Baso # (Auto) Absolute Nucleated RBC Nucleated RBC % PT INR APTT VBG pH VBG pCO2 VBG pO2 VBG HCO3 VBG Total CO2 VBG O2 Saturation VBG Base Excess Sodium Potassium Chloride Carbon Dioxide Anion Gap BUN Creatinine Estimated GFR (MDRD) Glucose POC Whole Bld Glucose Lactic Acid 1.3 Calcium Magnesium Total Bilirubin AST ALT Alkaline Phosphatase Total Creatine Kinase Troponin I High Sens < 2.3 L B-Natriuretic Peptide Total Protein Albumin Globulin Albumin/Globulin Ratio Lipase TSH 19.12 H Serum HCG, Qual Salicylates Acetaminophen Ethyl Alcohol Serum Ketones Influenza A (Rapid) Influenza B (Rapid) 07/31/20 07/31/20 04:00 04:00 WBC RBC Hgb Hct MCV MCH MCHC RDW Plt Count MPV Neut # (Auto) Lymph # (Auto) Refugio # (Auto) Eos # (Auto) Baso # (Auto) Absolute Nucleated RBC Nucleated RBC % PT INR APTT VBG pH 7.338 VBG pCO2 41.5 VBG pO2 32.7 VBG HCO3 21.8 L VBG Total CO2 23.1 L VBG O2 Saturation 63.5 VBG Base Excess -3.8 L Sodium Potassium Chloride Carbon Dioxide Anion Gap BUN Creatinine Estimated GFR (MDRD) Glucose POC Whole Bld Glucose Lactic Acid Calcium Magnesium Total Bilirubin AST ALT Alkaline Phosphatase Total Creatine Kinase Troponin I High Sens B-Natriuretic Peptide Total Protein Albumin Globulin Albumin/Globulin Ratio Lipase TSH Serum HCG, Qual NEGATIVE Salicylates Acetaminophen Ethyl Alcohol Serum Ketones Influenza A (Rapid) Influenza B (Rapid) PD MEDICAL DECISION MAKING - ED course Complexity details: reviewed old records, reviewed results, re-evaluated patient (05:32 vomiting resolved. tolerated po challenge. TSH elevated, will have rechecked as outpatient. ), considered differential (Diabetic gastroparesis, dehydration, infectious etiology,Diabetic ketoacidosis), d/w patient, d/w family ED course: 45-year-old female who is insulin-dependent diabetic with multiple chronic comorbidities presents with vomiting her initial temperature was 37.9C given her multiple comorbidities and borderline temperature she was given initial dose empirically of IV Rocephin IV fluids blood cultures and lactate drawn as well as influenza and COVID screening were sent. Departure - Departure Disposition: 01 Home, Self Care Clinical Impression: Hyperglycemia, Diabetic gastroparesis, TSH elevation Condition: Stable Instructions: ED Diabetic Gastroparesis Follow-Up: Poncho Germain MD [Primary Care Provider] - 07/31/20 Prescriptions: Promethazine Supp [Phenergan Supp] 25 mg ID BID PRN #7 supp PRN Reason: Nausea / Vomiting Comments: Please call your primary care provider today to schedule recheck. Your thyroid test was abnormal, I would like you to have that checked within the next week if possible.A prescription will be provided to for Phenergan to use as needed. Do not use phenergan and reglan together. Return to the emergency department any concerns.
[2020-07-31] MEDS ORDERED: cefTRIAXone 1 GM VIAL IVP STA (03:40)
[2020-07-31] MEDS ORDERED: SODIUM CHLORIDE 0.9% 1,000 ML IV STA (03:40)
[2020-07-31] MEDS ORDERED: PROMETHAZINE INJ 25 MG in SODIUM CHLORIDE 0.9% 50 ML IV STA (03:40)
[2020-07-31] MEDS ORDERED: PROMETHAZINE 25 MG/1 ML VIAL ONE (03:54)
[2020-07-31 04:08] LABS: BASOPHILS # (AUTO) 0.1 10^3/uL (0.0-0.1); BASOPHILS % (AUTO) 0.8 %; EOSINOPHILS # (AUTO) 0.6 10^3/uL (0.0-0.7); LYMPHOCYTES # (AUTO) 1.9 10^3/uL (1.5-3.5); LYMPHOCYTES % (AUTO) 28.4 %; MEAN CORPUSCULAR HEMOGLOBIN 26.1 pg (27.0-31.0); MEAN CORPUSCULAR HGB CONC 31.1 g/dL (32.0-36.0); MEAN CORPUSCULAR VOLUME 84.1 fL (81.0-99.0); MEAN PLATELET VOLUME 9.8 fL (7.9-10.8); MONOCYTES # (AUTO) 0.5 10^3/uL (0.0-1.0); MONOCYTES % (AUTO) 6.9 %; NEUTROPHILS # (AUTO) 3.6 10^3/uL (1.5-6.6); NEUTROPHILS % (AUTO) 54.4 %; PLT - PLATELET COUNT 324 10^3/uL (130-450); RED BLOOD COUNT 4.21 10^6/uL (4.20-5.40); RED CELL DISTRIBUTION WIDTH 17.5 % (12.0-15.0); VBG BASE EXCESS -3.8 mmol/L (-2 - +2); VBG PCO2 41.5 mmHg (41-51); VBG PH 7.338 (7.31-7.41); VBG PO2 32.7 mmHg (25-47); VBG TOTAL CO2 23.1 mmol/L (24-29); WHITE BLOOD COUNT 6.7 x10^3/uL (4.8-10.8)
[2020-07-31 04:14] LABS: PT - PROTHROMBIN TIME 10.8 secs (9.9-12.6)
[2020-07-31 04:15] LABS: KETONES, SERUM (ACETEST) NEGATIVE (NEGATIVE)
[2020-07-31 04:21] LABS: PARTIAL THROMBOPLASTIN TIME 27.6 secs (24.9-33.3)
[2020-07-31 04:25] LABS: ACETAMINOPHEN < 10 ug/mL (10-30); ALBUMIN 3.6 g/dL (3.2-5.5); ALBUMIN/GLOBULIN RATIO 1.1 (1.0-2.2); ALKALINE PHOSPHATASE 81 IU/L (42-121); ALT ALANINE AMINOTRANSFERASE 14 IU/L (10-60); AST ASPARTATE AMINOTRANSFERASE 12 IU/L (10-42); BILIRUBIN,TOTAL 0.5 mg/dL (0.2-1.0); BUN - BLOOD UREA NITROGEN 14 mg/dL (6-20); CALCIUM 8.8 mg/dL (8.5-10.3); CARBON DIOXIDE - CO2 22 mmol/L (21-32); CHLORIDE 100 mmol/L (101-111); CK- CREATINE KINASE 84 IU/L (22-269); CREATININE 0.9 mg/dL (0.4-1.0); GLUCOSE 299 mg/dL (70-100); LIPASE 40 U/L (22-51); SALICYLATE < 6.0 mg/dL; SODIUM 132 mmol/L (135-145)
[2020-07-31 04:31] LABS: HCG,QUALITATIVE BLOOD NEGATIVE
[2020-07-31 05:58] VITALS: BP 111/68
== END 2020-07-31 05:45 | disposition home or self-care (01) ==
LOC: ED 03:17
DX: E10.65 Type 1 diabetes mellitus with hyperglycemia (principal); E10.43 Type 1 diabetes mellitus with diabetic autonomic (poly)neuropathy; E10.42 Type 1 diabetes mellitus with diabetic polyneuropathy; K31.84 Gastroparesis; E78.00 Pure hypercholesterolemia, unspecified; F17.200 Nicotine dependence, unspecified, uncomplicated; M79.7 Fibromyalgia; M19.90 Unspecified osteoarthritis, unspecified site; Z20.828 Contact with and (suspected) exposure to other viral communicable diseases
CPT/HCPCS: 36415; 80053; 82009; 82550; 82803; 83605; 83690; 83735; 83880; 84443; 84484; 84703; 85025; 85610; 85730; 87040; 87275; 87276; 93005; 96365; 96375; 99283; J7040; U0004; 80307; 80320; 80329

== ENCOUNTER 2020-08-02 13:51 | Outpatient (CLI) | payer MEDICARE, MEDICAID ==
--- NOTE | 2020-08-02 14:48 | XRAY Report ---
PROCEDURE: Tib/Fib RT INDICATIONS: TRIMALLEOLAR FRACTURE, OPEN FRACTURE WITH MALUNION TECHNIQUE: 2 views of the tibia and fibula were acquired. COMPARISON: X-ray tib-fib 08/06/2020, CT lower extremity 05/21/2020 FINDINGS: Bones: ORIF of the proximal tibia is present. Hardware appears intact without periprosthetic loosenin g. Distal osteopenia is present. Tibial plateau lucencies remain visible without change in alignment. Old screw tracks are noted within the tibia. Distal tibia and fibula demonstrate areas of old fractu re as well as prior screw removal. Old medial malleoli or fracture is noted. No suspicious bony lesio ns. Soft tissues: No suspicious soft tissue calcifications or masses. IMPRESSION: ORIF of the proximal tibia with tibial plateau fracture in stable alignment Reviewed by: Christine Gore MD on 08/02/2020 2:47 PM PDT Approved by: Christine Gore MD on 08/02/2020 2:47 PM PDT Station ID: [id number]
== END 2020-08-02 13:52 | disposition home or self-care (01) ==
LOC: DI.WCP 13:51
PROVIDERS: ATTEND Physician Assistant
DX: S82.141E Displaced bicondylar fracture of right tibia, subsequent encounter for open fracture type I or II with routine healing (principal)

== ENCOUNTER 2020-08-09 14:08 | Outpatient (CLI) | payer MEDICARE, MEDICAID ==
[2020-08-09 18:41] LABS: BASOPHILS # (AUTO) 0.1 10^3/uL (0.0-0.1); BASOPHILS % (AUTO) 0.8 %; EOSINOPHILS # (AUTO) 0.6 10^3/uL (0.0-0.7); EOSINOPHILS % (AUTO) 9.4 %; HGB - HEMOGLOBIN 9.7 g/dL (12.0-16.0); LYMPHOCYTES # (AUTO) 1.7 10^3/uL (1.5-3.5); LYMPHOCYTES % (AUTO) 28.2 %; MEAN CORPUSCULAR HEMOGLOBIN 25.9 pg (27.0-31.0); MEAN CORPUSCULAR HGB CONC 30.1 g/dL (32.0-36.0); MEAN CORPUSCULAR VOLUME 86.1 fL (81.0-99.0); MEAN PLATELET VOLUME 10.5 fL (7.9-10.8); MONOCYTES # (AUTO) 0.5 10^3/uL (0.0-1.0); MONOCYTES % (AUTO) 8.6 %; NEUTROPHILS # (AUTO) 3.2 10^3/uL (1.5-6.6); NEUTROPHILS % (AUTO) 52.3 %; PLT - PLATELET COUNT 395 10^3/uL (130-450); RED BLOOD COUNT 3.74 10^6/uL (4.20-5.40); RED CELL DISTRIBUTION WIDTH 18.8 % (12.0-15.0); WHITE BLOOD COUNT 6.1 x10^3/uL (4.8-10.8)
[2020-08-09 18:54] LABS: ALBUMIN 3.4 g/dL (3.2-5.5); ALBUMIN/GLOBULIN RATIO 1.1 (1.0-2.2); BILIRUBIN,TOTAL 0.3 mg/dL (0.2-1.0); CALCIUM 8.6 mg/dL (8.5-10.3); CREATININE 0.8 mg/dL (0.4-1.0); TOTAL PROTEIN 6.5 g/dL (6.7-8.2)
[2020-08-09 19:10] LABS: THYROID STIMULATING HORMONE 7.31 uIU/mL (0.34-5.60)
[2020-08-09 19:11] LABS: FREE T3 2.56 pg/mL (2.5-3.9); FREE T4 (FREE THYROXINE) 0.55 ng/dL (0.58-1.64)
== END 2020-08-09 14:09 | disposition home or self-care (01) ==
LOC: LAB.WCP 14:08
PROVIDERS: ATTEND Family Medicine
DX: E11.43 Type 2 diabetes mellitus with diabetic autonomic (poly)neuropathy (principal); R78.89 Finding of other specified substances, not normally found in blood; S82.851 Displaced trimalleolar fracture of right lower leg; S82.852 Displaced trimalleolar fracture of left lower leg; M79.7 Fibromyalgia; F43.10 Post-traumatic stress disorder, unspecified; F31.9 Bipolar disorder, unspecified; G89.4 Chronic pain syndrome; E03.9 Hypothyroidism, unspecified
CPT/HCPCS: 36415; 80053; 84439; 84443; 84481; 85025; 85651

== ENCOUNTER 2020-09-09 07:00 | Outpatient (CLI) | payer MEDICARE, MEDICAID ==
--- NOTE | 2020-09-09 16:23 | XRAY Report ---
PROCEDURE: Tib/Fib RT INDICATIONS: RIGHT LOWER LEG PAIN TECHNIQUE: 2 views of the tibia and fibula were acquired. COMPARISON: 08/02/2020, 06/05/20, 03/29/2020. FINDINGS: Bones: Postsurgical changes are redemonstrated status post ORIF of a prior fracture of the proximal t ibia with medial and lateral fixation plate and multiple fixation screws. The surgical hardware appea rs intact and unchanged in position. No new suspicious lucencies. Healed fractures of the proximal ti olinda again noted. Soft tissues: No suspicious soft tissue calcifications or masses. IMPRESSION: 1. Postsurgical and post right changes of the proximal tibia redemonstrated. Reviewed by: Sterling Hdez MD on 09/09/2020 4:22 PM PDT Approved by: Sterling Hdez MD on 09/09/2020 4:22 PM PDT Station ID: [id number]
--- NOTE | 2020-09-12 12:16 | XRAY Report ---
PROCEDURE: Ankle 3 View RT INDICATIONS: RIGHT ANKLE PAIN TECHNIQUE: 3 views of the ankle were acquired. COMPARISON: None FINDINGS: Bones: 3 views of the right ankle demonstrate posttraumatic changes of a distal fibular fracture and medial malleolar fracture. There is posttraumatic osteoarthritis with joint space narrowing and subch ondral sclerosis of the tibiotalar joint. Surgical clips are seen overlying the medial malleolus. The bones demonstrate osteopenia, likely disuse osteopenia. Soft tissues: No tibiotalar joint effusion. Achilles tendon appears normal. IMPRESSION: Healed fractures of the distal fibula and medial malleolus with posttraumatic osteoarthr itis and disuse osteopenia. Reviewed by: Barber Aguilar on 09/09/2020 4:20 PM PDT Approved by: Barber Aguilar on 09/09/2020 4:20 PM PDT Station ID: [id number]
== END 2020-09-09 23:59 | disposition home or self-care (01) ==
LOC: DI.WCP 07:00
PROVIDERS: ATTEND Physician Assistant
DX: M19.171 Post-traumatic osteoarthritis, right ankle and foot (principal); S82.831S Other fracture of upper and lower end of right fibula, sequela; S82.51XS Displaced fracture of medial malleolus of right tibia, sequela; M85.88 Other specified disorders of bone density and structure, other site; S82.101D Unspecified fracture of upper end of right tibia, subsequent encounter for closed fracture with routine healing

== ENCOUNTER 2020-10-11 20:38 | Outpatient (CLI) | payer MEDICARE, MEDICAID | END 2020-10-11 20:39 | disposition critical access hospital (66) | LOC: EMS 20:38 | PROVIDERS: ATTEND Surgery | DX: E11.649 Type 2 diabetes mellitus with hypoglycemia without coma (principal); Z96.41 Presence of insulin pump (external) (internal); Z79.4 Long term (current) use of insulin | CPT/HCPCS: A0425; A0427 ==

== ENCOUNTER 2020-10-11 20:59 | Emergency (ER) | payer MEDICARE, MEDICAID ==
[2020-10-11 22:07] VITALS: BP 134/94
--- NOTE | 2020-10-11 22:08 | ED Physician Documentation ---
History of Present Illness - Stated complaint Stated Complaint: DIABETIC ISSUE - Chief complaint Chief Complaint: General - History obtained from History obtained from: Patient - Additonal information Additional information: 45-year-old woman with past medical history of type 1 diabetes, diagnosed as "Brittle diabetes", presents with wild fluctuations in her blood sugar over the past month or 2. She was hypoglycemic this evening requiring EMS to administer dextrose. Patient states she has not seen her endocrinologistIn months. Dr. León Ballard [place].Patient gets basal insulin via pump at 1.45 units/h till 2 PM then 1.55 units/h until midnight.She endorses decreased appetite over the past several months and often skips lunch. Denies any fevers, cough, URI symptoms, chest pain shortness of breath back pain abdominal pain vomiting diarrhea or fevers. Patient took her temperature yesterday because she felt chills and it was 99 degrees. Also with mild nausea for the past 2 days int ermittently. Review of Systems Ten Systems: 10 systems reviewed and negative Constitutional: reports: Chills, Fatigue. 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 : Kidney stones, Other HEENT: Chronic vision loss, Chronic sinusitis Psych: Other Musculoskeletal: Osteoarthritis, Fibromyalgia, Fatigue, Chronic back pain Derm: None - Past Surgical History Past Surgical History: Yes General: Gastric surgery Ortho: 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, Endometrial ablation, Tubal ligation - Present Medications Home Medications: Ambulatory Orders Medication Instructions Recorded Confirmed Prazosin HCl 5 mg PO QPM 01/23/19 03/30/20 Trazodone HCl 200 mg PO QPM 01/23/19 03/30/20 Duloxetine HCl [Cymbalta] 60 mg PO BID 09/15/19 03/30/20 Insulin Detemir [Levemir Flextouch] 10 units SUBQ DAILY PRN 03/26/20 03/30/20 Acetaminophen 1,000 mg PO Q6HR PRN 03/29/20 03/30/20 Metoclopramide [Reglan] 10 mg PO ACHS 03/29/20 03/30/20 Mirabegron [Myrbetriq] 50 mg PO QPM 03/29/20 03/29/20 Docusate Sodium 100 mg PO PRN PRN 03/30/20 03/30/20 Insulin Aspart [Novolog] 03/30/20 Insulin Detemir [Levemir Flextouch] 12 units SUBQ QPM PRN 03/30/20 03/30/20 Levothyroxine Sodium 112 mcg PO QDAC 03/30/20 03/30/20 bisacodyL [Dulcolax] 5 mg PO PRN PRN 03/30/20 03/30/20 Oxycodone HCl 5 mg PO Q8H PRN #7 tablet 04/22/20 Promethazine Supp [Phenergan Supp] 25 mg NM BID PRN #7 supp 07/31/20 - Allergies Allergies/Adverse Reactions: Allergies Allergy/AdvReac Type Severity Reaction Status Date / Time carisoprodol [From Soma] Allergy Unknown Verified 10/11/20 21:08 divalproex sodium Allergy Rash Verified 10/11/20 21:08 [From Depakote] gabapentin [From Neurontin] Allergy Edema Verified 10/11/20 21:08 lidocaine Allergy Unknown Verified 10/11/20 21:08 nitrofurantoin Allergy Rash Verified 10/11/20 21:08 macrocrystalline * [From Macrodantin] nortriptyline Allergy Unknown Verified 10/11/20 21:08 ondansetron [From Zofran] Allergy Hives Verified 10/11/20 21:08 ondansetron HCl * Allergy Hives Verified 10/11/20 21:08 [From Zofran (as hydrochloride)] pregabalin [From Lyrica] Allergy Headache Verified 10/11/20 21:08 - Social History Does the pt smoke?: Yes Smoking Status: Current every day smoker Does the pt drink ETOH?: No Does the pt have substance abuse?: No - Immunizations Immunizations are current?: Yes Immunizations: TDAP >10years/unknown - POLST Patient has POLST: No POLST Status: DNR PD ED PE NORMAL - Vitals Vital signs reviewed: Yes - General General: Alert and oriented X 3 - HEENT HEENT: Atraumatic, PERRL, EOMI - Neck Neck: Supple, no meningeal sign, No JVD - Cardiac Cardiac: RRR, No murmur, No gallop, No rub - Respiratory Respiratory: No respiratory distress, Clear bilaterally - Abdomen Abdomen: Normal bowel sounds, Non tender, Non distended - Female Female : Deferred - Rectal Rectal: Deferred - Back Back: No CVA TTP - Derm Derm: Normal color - Extremities Extremities: No deformity, No edema - Neuro Neuro: Alert and oriented X 3 - Psych Psych: Normal mood, Normal affect Results - Vitals Vitals: Vital Signs - 24 hr 10/11/20 10/11/20 21:05 21:08 Temperature 36.7 C 36.7 C Heart Rate 103 H 103 H Respiratory 18 18 Rate Blood Pressure 181/101 H 181/101 H O2 Saturation 98 98 Oxygen O2 Source Room air PD MEDICAL DECISION MAKING - ED course Complexity details: reviewed results, re-evaluated patient, d/w patient ED course: 45-year-old woman with type 1 diabetes presents with hypoglycemic episode this evening. On history, patient has poor dietary intake and this may be the source of her hypoglycemia. Educated patient about healthy diabetic diet and need for uniform calorie intake at each meal. Educated patient not to skip meals. Call sent out to Dr. Lorenzo but I have not been able to get a response back. Patient contracts that she will call her die cutter apprentice for an appointment Wednesday. Advised her to leave pump off overnight and to turn it on at a lower basal rate tomorrow morning when she has her first meal. Patient voices Understanding. Strict return precautions given. Departure - Departure Disposition: Home, Self Care Clinical Impression: Hypoglycemia, Type 1 diabetes mellitus Condition: Good Instructions: Diabetes Healthy Meals Comments: You have been seen in the emergency department for hypoglycemic episode. It is very important for you not to skip meals and to eat small healthy meals throughout the day. Make sure that you maintain a regular calorie intake. Choose meals that will not cause your blood sugar to spike and then drop. It is more important to eat healthy foods that will sustain your sugar longer. Return to the ED for any new or worsening symptoms. Follow-up with your die cutter apprentice Dr. Lorenzo on wednesday.
== END 2020-10-11 22:16 | disposition home or self-care (01) ==
LOC: EDUNIT# → ED 20:59
DX: E10.42 Type 1 diabetes mellitus with diabetic polyneuropathy (principal); E10.649 Type 1 diabetes mellitus with hypoglycemia without coma; Z96.41 Presence of insulin pump (external) (internal); Z79.4 Long term (current) use of insulin; F17.200 Nicotine dependence, unspecified, uncomplicated
CPT/HCPCS: 99283; 99284

== ENCOUNTER 2020-10-29 20:00 | Emergency (ER) | payer MEDICARE, MEDICAID ==
[2020-10-29] MEDS ORDERED: PROCHLORPERAZINE 10 MG/2 ML VIAL IVP STA (20:54)
--- NOTE | 2020-10-29 21:00 | ED Physician Documentation ---
History of Present Illness - Stated complaint Stated Complaint: LOW BLOOD SUGAR, NAUSEA - Chief complaint Chief Complaint: General - History obtained from History obtained from: Patient - Additonal information Additional information: 45-year-old female with a history of type 1 diabetes presents to the emergency department for evaluation of hypoglycemia nausea and vomiting. She reports that for the last 2 days she has been feeling nauseated and has vomited 4 times. Today her blood sugars have been in the 70s at home with a low sugar reading of 72 mg/dl. She has been having persistent nausea with this. She denies any abdominal pain fevers. No dysuria, urgency, or frequency. She was seen in this emergency department for a similar presentation in late September. She has not followed up with her case aide and has not seen him for a few months. She was advised with last ED visit to schedule an appointment with her case aide but she did not as she stated that she was feeling b mary jo until 2 days ago. She does have a basal insulin pump that delivers NovoLog regular insulin at 1.45 units/h. Help Desk Consultant Dr. Lorenzo in [place] With her blood glucose of 72 at home patient did eat a peanut butter and jelly sandwich as well as have some juice. Her sugars did not rise appreciably therefore she came to the emergency department. She was given some orange juice to drink here in the emergency department and her blood glucose is now 111 mg/dl Review of Systems Constitutional: denies: Fever, Chills Eyes: reports: Reviewed and negative Ears: reports: Reviewed and negative Nose: reports: Reviewed and negative Throat: reports: Reviewed and negative Cardiac: denies: Chest pain / pressure, Palpitations, Pedal edema, Calf pain Respiratory: denies: Dyspnea, Cough GI: reports: Nausea, Vomiting. 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: Other : Kidney stones, Other HEENT: Chronic vision loss, Chronic sinusitis Psych: Other Musculoskeletal: Osteoarthritis, Fibromyalgia, Fatigue, Chronic back pain Derm: None - Past Surgical History Past Surgical History: Yes General: Gastric surgery Ortho: Other /ANNEALING FURNACE TENDER: section, Endometrial ablation, Tubal ligation - Present Medications Home Medications: Ambulatory Orders Medication Instructions Recorded Confirmed Prazosin HCl 5 mg PO QPM 01/23/19 03/30/20 Trazodone HCl 200 mg PO QPM 01/23/19 03/30/20 Duloxetine HCl [Cymbalta] 60 mg PO BID 09/15/19 03/30/20 Insulin Detemir [Levemir Flextouch] 10 units SUBQ DAILY PRN 03/26/20 03/30/20 Acetaminophen 1,000 mg PO Q6HR PRN 03/29/20 03/30/20 Metoclopramide [Reglan] 10 mg PO ACHS 03/29/20 03/30/20 Mirabegron [Myrbetriq] 50 mg PO QPM 03/29/20 03/29/20 Docusate Sodium 100 mg PO PRN PRN 03/30/20 03/30/20 Insulin Aspart [Novolog] 03/30/20 Insulin Detemir [Levemir Flextouch] 12 units SUBQ QPM PRN 03/30/20 03/30/20 Levothyroxine Sodium 112 mcg PO QDAC 03/30/20 03/30/20 bisacodyL [Dulcolax] 5 mg PO PRN PRN 03/30/20 03/30/20 Oxycodone HCl 5 mg PO Q8H PRN #7 tablet 04/22/20 Promethazine Supp [Phenergan Supp] 25 mg OK BID PRN #7 supp 07/31/20 - Allergies Allergies/Adverse Reactions: Allergies Allergy/AdvReac Type Severity Reaction Status Date / Time carisoprodol [From Soma] Allergy Unknown Verified 10/29/20 20:11 divalproex sodium Allergy Rash Verified 10/29/20 20:11 [From Depakote] gabapentin [From Neurontin] Allergy Edema Verified 10/29/20 20:11 lidocaine Allergy Unknown Verified 10/29/20 20:11 nitrofurantoin Allergy Rash Verified 10/29/20 20:11 macrocrystalline * [From Macrodantin] nortriptyline Allergy Unknown Verified 10/29/20 20:11 ondansetron [From Zofran] Allergy Hives Verified 10/29/20 20:11 ondansetron HCl * Allergy Hives Verified 10/29/20 20:11 [From Zofran (as hydrochloride)] pregabalin [From Lyrica] Allergy Headache Verified 10/29/20 20:11 - Social History Does the pt smoke?: Yes Smoking Status: Current every day smoker Does the pt drink ETOH?: No Does the pt have substance abuse?: No - Immunizations Immunizations are current?: Yes Immunizations: TDAP >10years/unknown - POLST Patient has POLST: No POLST Status: DNR PD ED PE EXPANDED - General General: Alert, No acute distress, Other (Chronically ill appearance.) - HEENT HEENT: Atraumatic, PERRL, Moist mucous membranes - Neck Neck: Supple w/out meningeal sx, No tenderness. No: Adenopathy - Cardiac Cardiac: Regular Rate, Radial strong equal, Pedal strong equal, Cap refill < 2 sec. No: Murmur Present - Respiratory Respiratory: Clear to ausultation dylan. No: Distress, Labored - Abdomen Abdomen: Normal Bowel sounds, Other (Right-sided insulin pump. No erythema around insertion site). No: Tender to palpation, Rebound, Guarding - Derm Derm: Normal color. No: Rash, Purpura, Abscess - Extremities Extremities: Normal. No: Deformity, Tenderness, Pedal edema bilateral, Right calf TTP/cord, Left calf TTP/cord - Neuro Neuro: Alert and Oriented X 3, CNII-XII intact, Normal gait, Normal finger nose, Normal speech - GCS Eye Opening: Spontaneous Motor: Obeys Commands Verbal: Oriented Total: 15 Results - Vitals Vitals: Vital Signs - 24 hr 10/29/20 10/29/20 10/29/20 20:09 20:13 21:21 Temperature 36.3 C L 36.3 C L Heart Rate 98 98 102 H Respiratory 17 17 21 Rate Blood Pressure 123/79 123/79 115/79 O2 Saturation 98 98 98 Oxygen O2 Source Room air - EKG (time done) 2054 Rate: Rate (enter#) (102) Rhythm: Sinus tachycardia [place]: Normal Intervals: Normal [place] QRS: Normal Ischemia: Normal ST segments Compare to prior EKG: Unchanged from prior EKG Computer interpretation: Agree with computer - Labs Labs: Laboratory Tests 10/29/20 10/29/20 10/29/20 20:57 21:00 21:00 WBC RBC Hgb Hct MCV MCH MCHC RDW Plt Count MPV Neut # (Auto) Lymph # (Auto) [place] # (Auto) Eos # (Auto) Baso # (Auto) Absolute Nucleated RBC Nucleated RBC % Sodium Potassium Chloride Carbon Dioxide Anion Gap BUN Creatinine Estimated GFR (MDRD) Glucose POC Whole Bld Glucose 111 H Calcium Total Bilirubin AST ALT Alkaline Phosphatase Troponin I High Sens Total Protein Albumin Globulin Albumin/Globulin Ratio Lipase Urine Color YELLOW Urine Clarity CLEAR Urine pH 6.0 Ur Specific [place] <=1.005 Urine Protein NEGATIVE Urine Glucose (UA) NEGATIVE Urine Ketones NEGATIVE Urine Occult Blood NEGATIVE Urine Nitrite NEGATIVE Urine Bilirubin NEGATIVE Urine Urobilinogen 0.2 (NORMAL) Ur Leukocyte Esterase NEGATIVE Ur Microscopic Review NOT INDICATED Urine Culture Comments NOT INDICATED Urine HCG, Qual NEGATIVE 10/29/20 10/29/20 10/29/20 21:02 21:02 21:02 WBC 7.3 RBC 3.67 L Hgb 9.9 L Hct 33.3 L MCV 90.7 MCH 27.0 MCHC 29.7 L RDW 14.9 Plt Count 413 MPV 9.7 Neut # (Auto) 3.5 Lymph # (Auto) 2.4 [place] # (Auto) 0.7 Eos # (Auto) 0.5 Baso # (Auto) 0.1 Absolute Nucleated RBC 0.00 Nucleated RBC % 0.0 Sodium 136 Potassium 4.3 Chloride 101 Carbon Dioxide 23 Anion Gap 12.0 BUN 13 Creatinine 0.9 Estimated GFR (MDRD) 67 L Glucose 119 H POC Whole Bld Glucose Calcium 8.4 L Total Bilirubin 0.3 AST 70 H ALT 44 Alkaline Phosphatase 87 Troponin I High Sens < 2.3 L Total Protein 6.5 L Albumin 3.3 Globulin 3.2 Albumin/Globulin Ratio 1.0 Lipase 18 L Urine Color Urine Clarity Urine pH Ur Specific [place] Urine Protein Urine Glucose (UA) Urine Ketones Urine Occult Blood Urine Nitrite Urine Bilirubin Urine Urobilinogen Ur Leukocyte Esterase Ur Microscopic Review Urine Culture Comments Urine HCG, Qual - Rads (name of study) CXR Radiology: EMP read indepedently (No acute cardiopulmonary process) PD MEDICAL DECISION MAKING - ED course Complexity details: reviewed results ED course: 45-year-old female who is a type I diabetic presents to the emergency department with nausea and low for her blood glucose. Sugars at home are as low as 72. She does have an insulin pump with a basal rate of 1.45 units/h. She had a similar presentation approximately 3 weeks ago. When patient arrived to the emergency department her blood glucose was 75. She was given orange juice. On reevaluation her blood sugars had risen to 145. Chest x-ray does not show any acute focal abnormalities. Urine shows no signs of infection. She does have some baseline anemia which is unchanged from previous visits. Otherwise renal and liver function tests unremarkable. Patient presented to the emergency department awake, without any focal neuro deficits and a normal cerebellar exam. She remained this way during the duration of her visit. Patient had reported persistent nausea for much of the last 2 days. EKG is nonischemic. High-sensitivity troponin negative. The cause of her hypoglycemia is likely secondary to 4 episodes of vomiting in the last 24 hours as well as inconsistent food intake. She attributes the vomiting to low blod glucose and lack of appetite, thus creating a cycle. While here in the emergency department she has tolerated p.o. food and liquid. She had a nontender abdominal exam. Will defer advanced imaging. We discussed extensively that is important that she continue to follow-up with her case aide in [place] to discuss her basal insulin rate. In addition it is very important for her to have consistent food and carbohydrate intake. Emergent return precautions discussed Departure - Departure Disposition: 01 Home, Self Care Clinical Impression: Hypoglycemia, Nausea DM type 1 (diabetes mellitus, type 1) Qualifiers: Diabetes mellitus complication status: with hypoglycemia Diabetes mellitus complication detail: without coma Qualified Code(s): E10.649 - Type 1 diabetes mellitus with hypoglycemia without coma Condition: Stable Record reviewed to determine appropriate education?: Yes Instructions: ED Diabetes Hypoglycemia Oral Agent Follow-Up: Poncho Germain MD [Primary Care Provider] - Within 1 week León Lorenzo MD [Physician No Access] - Comments: Jammie it is important that you discuss your last [address] Germain and Dr. Lorenzo. The cause of your low blood sugars is likely inconsistent oral intake. Is also likely secondary to some vomiting that you have had. Please discuss if your basal insulin rate should be reduced. If at any point that you find that your blood sugar is less than 100 mg/dL at home please be sure to drink some orange juice and get simple carbohydrates like you did with the peanut butter and jelly. In the long-term wide swings in blood glucose as well as hypoglycemia can be more harm producing than consistently elevated blood sugars. Severely low blood sugars can lead to coma and stroke. If at any point you find that your vomiting is worse, you have low blood sugars at home or you feel your symptoms are not well controlled please return immediately to the ER
[2020-10-29] MEDS ORDERED: SODIUM CHLORIDE 0.9% 1,000 ML IV STA (21:05)
[2020-10-29 21:10] LABS: BILIRUBIN,URINE NEGATIVE (NEGATIVE); GLUCOSE, URINE (UA) NEGATIVE (NEGATIVE); KETONES,URINE (UA) NEGATIVE (NEGATIVE); LEUKOCYTE ESTERASE, URINE NEGATIVE (NEGATIVE); NITRITE,URINE NEGATIVE (NEGATIVE); OCCULT BLOOD,URINE NEGATIVE (NEGATIVE); PROTEIN,URINE NEGATIVE (NEGATIVE); UROBILINOGEN,URINE 0.2 (NORMAL) E.U./dL (NORMAL)
[2020-10-29 21:14] LABS: BASOPHILS # (AUTO) 0.1 10^3/uL (0.0-0.1); BASOPHILS % (AUTO) 1.1 %; EOSINOPHILS # (AUTO) 0.5 10^3/uL (0.0-0.7); EOSINOPHILS % (AUTO) 7.4 %; HGB - HEMOGLOBIN 9.9 g/dL (12.0-16.0); LYMPHOCYTES # (AUTO) 2.4 10^3/uL (1.5-3.5); LYMPHOCYTES % (AUTO) 32.5 %; MEAN CORPUSCULAR HGB CONC 29.7 g/dL (32.0-36.0); MEAN CORPUSCULAR VOLUME 90.7 fL (81.0-99.0); MEAN PLATELET VOLUME 9.7 fL (7.9-10.8); MONOCYTES # (AUTO) 0.7 10^3/uL (0.0-1.0); MONOCYTES % (AUTO) 9.6 %; NEUTROPHILS # (AUTO) 3.5 10^3/uL (1.5-6.6); NEUTROPHILS % (AUTO) 48.2 %; PLT - PLATELET COUNT 413 10^3/uL (130-450); RED BLOOD COUNT 3.67 10^6/uL (4.20-5.40); RED CELL DISTRIBUTION WIDTH 14.9 % (12.0-15.0); WHITE BLOOD COUNT 7.3 x10^3/uL (4.8-10.8)
[2020-10-29 21:17] LABS: CLARITY,URINE CLEAR (CLEAR)
[2020-10-29 21:18] LABS: HCG UR QUAL NEGATIVE
[2020-10-29 21:25] LABS: ALBUMIN 3.3 g/dL (3.2-5.5); BILIRUBIN,TOTAL 0.3 mg/dL (0.2-1.0); CALCIUM 8.4 mg/dL (8.5-10.3); CREATININE 0.9 mg/dL (0.4-1.0); TOTAL PROTEIN 6.5 g/dL (6.7-8.2)
[2020-10-29 21:48] VITALS: BP 129/74
--- NOTE | 2020-10-29 22:31 | XRAY Report ---
PROCEDURE: Chest 1 View X-Ray INDICATIONS: chest pain TECHNIQUE: One view of the chest was acquired. COMPARISON: None FINDINGS: Surgical changes and devices: None. Lungs and pleura: No pleural effusions or pneumothorax. Lungs are clear. Mediastinum: Mediastinal contours appear normal. Heart size is normal. Bones and chest wall: No suspicious bony lesions. Overlying soft tissues appear unremarkable. IMPRESSION: No acute cardiopulmonary normality Reviewed by: Barber Augilar on 10/29/2020 10:30 PM [facility] Approved by: Barber Aguilar on 10/29/2020 10:30 PM [facility] Station ID: [id number]
== END 2020-10-29 22:01 | disposition home or self-care (01) ==
LOC: ED 20:00
DX: E10.649 Type 1 diabetes mellitus with hypoglycemia without coma (principal); E10.42 Type 1 diabetes mellitus with diabetic polyneuropathy; Z96.41 Presence of insulin pump (external) (internal); Z79.4 Long term (current) use of insulin; F17.200 Nicotine dependence, unspecified, uncomplicated; G40.909 Epilepsy, unspecified, not intractable, without status epilepticus; R00.0 Tachycardia, unspecified
CPT/HCPCS: 36415; 80053; 81001; 81003; 81025; 83690; 84484; 85025; 87086; 93005; 96374; 99284

== ENCOUNTER 2020-11-05 22:45 | Outpatient (CLI) | payer MEDICARE, MEDICAID | END 2020-11-05 22:46 | disposition critical access hospital (66) | LOC: EMS 22:45 | PROVIDERS: ATTEND Surgery | DX: E10.649 Type 1 diabetes mellitus with hypoglycemia without coma (principal) | CPT/HCPCS: A0425; A0427 ==

== ENCOUNTER 2020-11-05 23:03 | Observation (INO) | payer MEDICARE, MEDICAID ==
--- NOTE | 2020-11-05 23:14 | ED Physician Documentation ---
History of Present Illness - Stated complaint Stated Complaint: HYPOGLYCEMIA - Chief complaint Chief Complaint: General - History obtained from History obtained from: Patient, EMS - History of Present Illness Timing: Today Pain level now: 3 (headache) Improved by: nothing Worsened by: no apparent inciting nor exacerbating factors regarding the hypoglycemia, but symptoms worsen in proportion to degree of hypoglycemia Associated symptoms: headache, tremulousness - Additonal information Additional information: BIBA for hypoglycemia. patient uses an insulin pump and she says she does not use (inject) any other insulin. her description of the insulin in the pump is that of a regular (short-acting) insulin. she cannot think of any changes in her routine that would have led to hypoglycemia except perhaps ate a little less today than she usually does. she c/o tremulousness and generalized headache which are typical symptoms of her hypoglycemic episodes. she recently had her pump adjusted to give smaller doses. blood sugar was 53 when she called 911, EMS had reading in upper 80s and given oral glucose but blood sugar is 63 on ED arrival Review of Systems Constitutional: reports: Reviewed and negative Throat: denies: Sore throat Cardiac: reports: Reviewed and negative Respiratory: reports: Reviewed and negative GI: reports: Reviewed and negative : denies: Dysuria, Frequency, Now EGA Neurologic: reports: Headache. 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 HEALTH PROFESSIONAL: Other : Kidney stones, Other HEENT: Chronic vision loss, Chronic sinusitis Psych: Other Musculoskeletal: Osteoarthritis, Fibromyalgia, Fatigue, Chronic back pain Derm: None - Past Surgical History Past Surgical History: Yes General: Gastric surgery Ortho: Other /MENTAL HEALTH PROFESSIONAL: section, Endometrial ablation, Tubal ligation - Present Medications Home Medications: Ambulatory Orders Medication Instructions Recorded Confirmed Prazosin HCl 5 mg PO QPM 01/23/19 11/06/20 Trazodone HCl 200 mg PO QPM 01/23/19 11/06/20 Duloxetine HCl [Cymbalta] 60 mg PO BID 09/15/19 11/06/20 Insulin Aspart [Novolog] 0 units SQ .SLIDING SCALE 03/30/20 11/06/20 Butalb/Acetaminophen/Caffeine 1 cap PO Q4H PRN 11/06/20 11/06/20 [Fioricet 50-300-40 mg Capsule] Dicyclomine [Bentyl] 20 mg PO BID 11/06/20 11/06/20 Escitalopram Oxalate [Lexapro] 20 mg PO BID 11/06/20 11/06/20 Eszopiclone [Lunesta] 3 mg PO QPM PRN 11/06/20 11/06/20 Glucagon,Human Recombinant 1 mg IJ PRN PRN 11/06/20 11/06/20 [Glucagon Emergency Kit] LORazepam [Ativan] 1 mg PO TID PRN 11/06/20 11/06/20 Levothyroxine [Synthroid] 125 mcg PO QDAC 11/06/20 11/06/20 Methocarbamol [Robaxin-750] 750 mg PO Q4H PRN 11/06/20 Metoclopramide [Reglan] 10 mg PO Q4H PRN 11/06/20 11/06/20 Mirabegron [Myrbetriq] 50 mg PO DAILY 11/06/20 11/06/20 Oxycodone HCl 5 - 10 mg PO Q8H PRN 11/06/20 11/06/20 Pantoprazole Sodium [Protonix] 20 mg PO QDAC 11/06/20 11/06/20 Pramipexole [Mirapex] 0.25 mg PO Q6H 11/06/20 11/06/20 Promethazine [Phenergan] 25 mg PO Q6H PRN 11/06/20 11/06/20 Promethazine [Phenergan] 25 mg PO Q6HR PRN #14 tablet 11/06/20 Simvastatin [Zocor] 20 mg PO QPM 11/06/20 11/06/20 Spironolactone [Aldactone] 100 mg PO DAILY 11/06/20 11/06/20 - Allergies Allergies/Adverse Reactions: Allergies Allergy/AdvReac Type Severity Reaction Status Date / Time carisoprodol [From Soma] Allergy Unknown Verified 10/29/20 20:11 divalproex sodium Allergy Rash Verified 10/29/20 20:11 [From Depakote] gabapentin [From Neurontin] Allergy Edema Verified 10/29/20 20:11 lidocaine Allergy Unknown Verified 10/29/20 20:11 nitrofurantoin Allergy Rash Verified 10/29/20 20:11 macrocrystalline * [From Macrodantin] nortriptyline Allergy Unknown Verified 10/29/20 20:11 ondansetron [From Zofran] Allergy Hives Verified 10/29/20 20:11 ondansetron HCl * Allergy Hives Verified 10/29/20 20:11 [From Zofran (as hydrochloride)] pregabalin [From Lyrica] Allergy Headache Verified 10/29/20 20:11 - Social History Does the pt smoke?: Yes Smoking Status: Current every day smoker Does the pt drink ETOH?: No Does the pt have substance abuse?: No - Immunizations Immunizations are current?: Yes Immunizations: TDAP >10years/unknown - POLST Patient has POLST: No POLST Status: DNR PD ED PE NORMAL - Vitals Vital signs reviewed: Yes - General General: Alert and oriented X 3, Well developed/nourished, Other (appears mildly anxious) - HEENT HEENT: Moist mucous membranes - Neck Neck: Supple, no meningeal sign - Cardiac Cardiac: No murmur - Respiratory Respiratory: No respiratory distress, Clear bilaterally - Abdomen Abdomen: Soft, Non tender - Derm Derm: Normal color - Neuro Neuro: Alert and oriented X 3, recycling operator 2-12 intact PD ED PE EXPANDED - Cardiac Cardiac: Tachy, Regular Rhythm Results - Vitals Vitals: Vital Signs - 24 hr 11/05/20 11/05/20 11/06/20 23:08 23:12 00:13 Temperature 37.2 C 37.2 C Heart Rate 121 H 121 H 105 H Respiratory 18 18 16 Rate Blood Pressure 137/82 H 137/82 H 105/66 O2 Saturation 92 92 95 11/06/20 11/06/20 11/06/20 00:30 01:24 01:47 Temperature 36.2 C L Heart Rate 102 H 112 H 100 Respiratory 14 20 Rate Blood Pressure 105/66 124/70 111/70 O2 Saturation 100 93 95 11/06/20 11/06/20 11/06/20 02:00 02:30 03:00 Temperature 36.1 C L Heart Rate 76 86 85 Respiratory 14 19 20 Rate Blood Pressure 108/74 104/69 109/77 O2 Saturation 93 93 93 11/06/20 11/06/20 11/06/20 03:30 04:00 04:30 Temperature 36.3 C L Heart Rate 86 86 94 Respiratory 20 22 23 Rate Blood Pressure 117/77 114/82 H 115/88 H O2 Saturation 93 92 95 11/06/20 05:00 Temperature 36.5 C Heart Rate 93 Respiratory 20 Rate Blood Pressure 131/83 H O2 Saturation 95 Oxygen O2 Source Room air - Labs Labs: Laboratory Tests 11/05/20 11/05/20 11/05/20 23:20 23:50 23:50 WBC 6.8 RBC 3.28 L Hgb 8.9 L Hct 28.9 L MCV 88.1 MCH 27.1 MCHC 30.8 L RDW 15.3 H Plt Count 398 MPV 9.0 Neut # (Auto) 4.3 Lymph # (Auto) 1.6 [place] # (Auto) 0.7 Eos # (Auto) 0.1 Baso # (Auto) 0.0 Absolute Nucleated RBC 0.00 Nucleated RBC % 0.0 Sodium 131 L Potassium 3.6 Chloride 98 L Carbon Dioxide 24 Anion Gap 9.0 BUN 13 Creatinine 0.7 Estimated GFR (MDRD) 90 Glucose 183 H Calcium 8.4 L Phosphorus Magnesium Total Bilirubin 0.5 AST 15 ALT 30 Alkaline Phosphatase 82 Total Protein 6.2 L Albumin 3.3 Globulin 2.9 Albumin/Globulin Ratio 1.1 Lipase 17 L Urine Color YELLOW Urine Clarity CLEAR Urine pH 6.0 Ur Specific [place] <=1.005 Urine Protein NEGATIVE Urine Glucose (UA) NEGATIVE Urine Ketones NEGATIVE Urine Occult Blood NEGATIVE Urine Nitrite NEGATIVE Urine Bilirubin NEGATIVE Urine Urobilinogen 0.2 (NORMAL) Ur Leukocyte Esterase NEGATIVE Ur Microscopic Review NOT INDICATED Urine Culture Comments NOT INDICATED Nasal Adenovirus (PCR) Nasal B. parapertussis DNA (PCR) Nasal Coronavir 229E PCR Nasal Coronavir HKU1 PCR Nasal Coronavir NL63 PCR Nasal Coronavir OC43 PCR Nasal Enterovir/Rhinovir PCR Nasal Influenza B PCR Nasal Influenza A PCR Nasal Parainfluen 1 PCR Nasal Parainfluen 2 PCR Nasal Parainfluen 3 PCR Nasal Parainfluen 4 PCR Nasal RSV (PCR) Nasal B.pertussis DNA PCR Nasal C.pneumoniae (PCR) Lico Human Metapneumo PCR Nasal M.pneumoniae (PCR) Nasal SARS-CoV-2 (PCR) 11/05/20 11/06/20 23:50 05:00 WBC RBC Hgb Hct MCV MCH MCHC RDW Plt Count MPV Neut # (Auto) Lymph # (Auto) [place] # (Auto) Eos # (Auto) Baso # (Auto) Absolute Nucleated RBC Nucleated RBC % Sodium Potassium Chloride Carbon Dioxide Anion Gap BUN Creatinine Estimated GFR (MDRD) Glucose Calcium Phosphorus 5.1 H Magnesium 2.0 Total Bilirubin AST ALT Alkaline Phosphatase Total Protein Albumin Globulin Albumin/Globulin Ratio Lipase Urine Color Urine Clarity Urine pH Ur Specific [place] Urine Protein Urine Glucose (UA) Urine Ketones Urine Occult Blood Urine Nitrite Urine Bilirubin Urine Urobilinogen Ur Leukocyte Esterase Ur Microscopic Review Urine Culture Comments Nasal Adenovirus (PCR) NOT DETECTED Nasal B. parapertussis DNA (PCR) NOT DETECTED Nasal Coronavir 229E PCR NOT DETECTED Nasal Coronavir HKU1 PCR NOT DETECTED Nasal Coronavir NL63 PCR NOT DETECTED Nasal Coronavir OC43 PCR NOT DETECTED Nasal Enterovir/Rhinovir PCR NOT DETECTED Nasal Influenza B PCR NOT DETECTED Nasal Influenza A PCR NOT DETECTED Nasal Parainfluen 1 PCR NOT DETECTED Nasal Parainfluen 2 PCR NOT DETECTED Nasal Parainfluen 3 PCR NOT DETECTED Nasal Parainfluen 4 PCR NOT DETECTED Nasal RSV (PCR) NOT DETECTED Nasal B.pertussis DNA PCR NOT DETECTED Nasal C.pneumoniae (PCR) NOT DETECTED Lico Human Metapneumo PCR NOT DETECTED Nasal M.pneumoniae (PCR) NOT DETECTED Nasal SARS-CoV-2 (PCR) NOT DETECTED PD MEDICAL DECISION MAKING - ED course Complexity details: reviewed results, re-evaluated patient, considered differential, d/w patient ED course: recurrent hypoglycemia during ED stay despite patient deactivating her insulin pump. the highest FSBS in ED was 180s (after 1 amp D50) but subsequently dropped back to 50s. due to recurrent/persistent hypoglycemia in ED, she was given total of 3 amps D50 during her ED stay as well as juice. the 3rd amp D50 was given for FSBS 49 which was late in ED stay and the lowest fingerstick of entire stay and thus D10 also initiated and admitted to hospitalist service Departure - Departure Disposition: ED Place in Observation Clinical Impression: Hypoglycemia Condition: Fair Discharge Date/Time: 11/06/20 05:40
[2020-11-05 23:25] LABS: BILIRUBIN,URINE NEGATIVE (NEGATIVE); GLUCOSE, URINE (UA) NEGATIVE (NEGATIVE); KETONES,URINE (UA) NEGATIVE (NEGATIVE); LEUKOCYTE ESTERASE, URINE NEGATIVE (NEGATIVE); NITRITE,URINE NEGATIVE (NEGATIVE); OCCULT BLOOD,URINE NEGATIVE (NEGATIVE); PROTEIN,URINE NEGATIVE (NEGATIVE); UROBILINOGEN,URINE 0.2 (NORMAL) E.U./dL (NORMAL)
[2020-11-05 23:26] LABS: CLARITY,URINE CLEAR (CLEAR)
[2020-11-05] MEDS ORDERED: DEXTROSE 50% ABBOJECT 25 GM/50 ML SYRINGE IVP STA (23:27)
[2020-11-05 23:57] LABS: BASOPHILS % (AUTO) 0.6 %; EOSINOPHILS # (AUTO) 0.1 10^3/uL (0.0-0.7); HGB - HEMOGLOBIN 8.9 g/dL (12.0-16.0); LYMPHOCYTES # (AUTO) 1.6 10^3/uL (1.5-3.5); LYMPHOCYTES % (AUTO) 23.3 %; MEAN CORPUSCULAR HEMOGLOBIN 27.1 pg (27.0-31.0); MEAN CORPUSCULAR HGB CONC 30.8 g/dL (32.0-36.0); MEAN CORPUSCULAR VOLUME 88.1 fL (81.0-99.0); MONOCYTES # (AUTO) 0.7 10^3/uL (0.0-1.0); NEUTROPHILS # (AUTO) 4.3 10^3/uL (1.5-6.6); NEUTROPHILS % (AUTO) 63.5 %; PLT - PLATELET COUNT 398 10^3/uL (130-450); RED BLOOD COUNT 3.28 10^6/uL (4.20-5.40); RED CELL DISTRIBUTION WIDTH 15.3 % (12.0-15.0); WHITE BLOOD COUNT 6.8 x10^3/uL (4.8-10.8)
[2020-11-06 00:08] LABS: ALBUMIN 3.3 g/dL (3.2-5.5); ALBUMIN/GLOBULIN RATIO 1.1 (1.0-2.2); BILIRUBIN,TOTAL 0.5 mg/dL (0.2-1.0); CALCIUM 8.4 mg/dL (8.5-10.3); CREATININE 0.7 mg/dL (0.4-1.0); TOTAL PROTEIN 6.2 g/dL (6.7-8.2)
[2020-11-06] MEDS ORDERED: DEXTROSE 50% ABBOJECT 25 GM/50 ML SYRINGE IVP STA ×2 (01:27→04:09)
[2020-11-06] MEDS ORDERED: ACETAMINOPHEN 325 MG TABLET PO STA (01:31)
[2020-11-06] MEDS ORDERED: DEXTROSE 5% 1,000 ML IV STA (04:17)
[2020-11-06] MEDS ORDERED: DEXTROSE 10% 1,000 ML IV STA (04:39)
[2020-11-06] MEDS ORDERED: ONDANSETRON 4 MG/2 ML VIAL IVP PRN (05:11)
[2020-11-06] MEDS ORDERED: SODIUM CHLORIDE FLUSH 0.9% 10 ML SYRINGE IVP PRN (05:11)
[2020-11-06] MEDS ORDERED: ACETAMINOPHEN 325 MG TABLET PO PRN (05:11)
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
[2020-11-06] MEDS ORDERED: DEXTROSE 10% 250 ML IV ONE (05:45)
[2020-11-06] MEDS ORDERED: DEXTROSE 10% 1,000 ML IV SCH (06:00)
[2020-11-06 06:20] LABS: C. PNEUMONIAE- RESP PCR PANEL NOT DETECTED
[2020-11-06] MEDS: oxyCODONE 5 MG TABLET PO PRN ×2 (06:38→11:25)
[2020-11-06] MEDS ORDERED: PANTOPRAZOLE 40 MG TABLET PO SCH (07:00)
[2020-11-06] MEDS ORDERED: LEVOTHYROXINE 125 MCG TABLET PO SCH (07:00)
[2020-11-06] MEDS ORDERED: SODIUM CHLORIDE FLUSH 0.9% 10 ML SYRINGE IVP SCH (09:00)
[2020-11-06] MEDS ORDERED: ENOXAPARIN 40 MG/0.4 ML SYRINGE SUBQ SCH (09:00)
[2020-11-06] MEDS ORDERED: ethyl alcohoL 62% SWAB AMPULE NAS SCH (09:00)
[2020-11-06] MEDS ORDERED: PROMETHAZINE 25 MG TABLET PO PRN (11:16)
--- NOTE | 2020-11-06 11:16 | PHARMACY PROGRESS NOTE ---
- Best Possible Medication History Admit Date and Time: 11/06/20 0511 Processed by: Pharmacy Medication History completed: Yes Patient Interview: Completed Secondary Source(s): Physician records, Pharmacy records, Insurance records As the person ultimately responsible for medication therapy, providers are able to order a medication from an existing home medication list in [facility] via the "Reconcile Routine" prior to Confirmation of that medication by it support manager. Such practice is discouraged except when the physician, in their clinical judgment, deems that a medical need exists for a medication without regard to previous use.
--- NOTE | 2020-11-06 11:16 | Discharge Plan ---
Discharge Plan Problem Reviewed?: Yes Disposition: Home, Self Care Condition: Fair Prescriptions: Promethazine [Phenergan] 25 mg PO Q6HR PRN #14 tablet PRN Reason: Nausea / Vomiting Diet: Diabetic Activity Restrictions: Activity as Tolerated Shower Restrictions: No Health Concerns: You were hospitalized to manage severely low serum glucoses. You have very "brittle diabetes" and need to be careful with not using excessive insulin amounts and also taking in adequate calories to manage your blood glucose level. Plan of Treatment: A new prescription for Promethazine 25 mg, to take every 6 hours as needed for nausea and vomiting, was ordered for you, and electronically [facility] in [place]. You may start coming to the [facility] clinic for help with diabetic management, with the outpatient nurse educator. Care Goals: Improvement in symptoms and stabilization are the goals. Assessment: Patient understands. Written instructions were provided at discharge, as a reminder. Additional Instructions or Follow Up instructions: If you have new or worsening symptoms, call your Ton Container Shipper or your Primary Care Provider for advice, or come to the Emergency Room. Follow-Up Care: [facility] - Diabetes Ed No Smoking: If you smoke, Please STOP! Call for help. Follow-up with: Poncho Germain MD [Primary Care Provider] -
[2020-11-06 11:52] LABS: PHOSPHORUS 5.1 mg/dL (2.5-4.6)
[2020-11-06] MEDS ORDERED: INSULIN ASPART 300 UNIT/3 ML PEN SUBQ SCH (12:00)
--- NOTE | 2020-11-06 12:49 | PROVIDER PROGRESS NOTE ---
Hospitalist Cross-cover Note - Cross-Cover Note Cross-Cover Note: S: Patient had some mild nausea today. She requested Phenergan 25 mg p.o. tablet which she took then was able to eat her meals and had an appetite. O: Vital signs are stable, physical exam is unremarkable. A: Suymptomatic hypoglycemia, Brittle DM P: Plan is for discharge today, careful monitoring of her brittle diabetes, stay well-hydrated. New Promethazine prn nausea was electronically prescribed at discharge Resume all other prehospital medications
[2020-11-06 13:08] VITALS: BP 132/71
== END 2020-11-06 14:50 | disposition home or self-care (01) ==
LOC: EDUNIT# → ED 23:03 → ICU 11-06 05:11
PROVIDERS: ADMIT Internal Medicine; ATTEND Internal Medicine
DX: E10.649 Type 1 diabetes mellitus with hypoglycemia without coma (principal); J44.9 Chronic obstructive pulmonary disease, unspecified; E78.5 Hyperlipidemia, unspecified; R01.1 Cardiac murmur, unspecified; E10.42 Type 1 diabetes mellitus with diabetic polyneuropathy; G40.909 Epilepsy, unspecified, not intractable, without status epilepticus; F17.210 Nicotine dependence, cigarettes, uncomplicated; K21.9 Gastro-esophageal reflux disease without esophagitis; J32.9 Chronic sinusitis, unspecified; M79.7 Fibromyalgia; G89.29 Other chronic pain; M54.9 Dorsalgia, unspecified; M19.90 Unspecified osteoarthritis, unspecified site; R53.83 Other fatigue; F32.9 Major depressive disorder, single episode, unspecified; E03.9 Hypothyroidism, unspecified; N31.9 Neuromuscular dysfunction of bladder, unspecified; H54.7 Unspecified visual loss; Z66 Do not resuscitate; Z20.828 Contact with and (suspected) exposure to other viral communicable diseases; Z96.41 Presence of insulin pump (external) (internal); Z87.01 Personal history of pneumonia (recurrent); Z79.4 Long term (current) use of insulin; Z79.899 Other long term (current) drug therapy
CPT/HCPCS: 36415; 80053; 81003; 83690; 83735; 84100; 85025; 87150; 96365; 96372; 96375; 96376; 99284; 99285; A9270; G0378; J1650; Q0169; 0202U; 81001; 87086

== ENCOUNTER 2020-11-07 21:15 | Outpatient (CLI) | payer MEDICARE, MEDICAID | END 2020-11-07 21:16 | disposition EMS.NT | LOC: EMS 21:15 | PROVIDERS: ATTEND Surgery | DX: R11.0 Nausea (principal); R53.83 Other fatigue; R51.9 Headache, unspecified ==

== ENCOUNTER 2021-01-21 17:00 | Outpatient (CLI) | payer MEDICARE, MEDICAID | END 2021-01-21 17:01 | disposition critical access hospital (66) | LOC: EMS 17:00 | PROVIDERS: ATTEND Registered Nurse | DX: T85.614A Breakdown (mechanical) of insulin pump, initial encounter (principal); R73.9 Hyperglycemia, unspecified | CPT/HCPCS: A0425; A0427 ==

== ENCOUNTER 2021-01-21 17:21 | Emergency (ER) | payer MEDICARE, MEDICAID ==
--- NOTE | 2021-01-21 18:02 | ED Physician Documentation ---
History of Present Illness - Stated complaint Stated Complaint: DIABETIC ISSUE - Chief complaint Chief Complaint: General - Additonal information Additional information: 45-year-old type I diabetic presents to the emergency department for evaluation of wide swings in her blood glucose. Over the last 24 hours she reports a blood sugar as low as 60 as well as a high glucose greater than 500. She reports that she thinks her insulin pump is not working as she is unable to tell me the dose of basal insulin that she is receiving. She denies any recent fevers, abdominal pain nausea vomiting dysuria cough or congestion. Review of Systems Constitutional: denies: Fever, Chills Eyes: reports: Reviewed and negative Ears: reports: Reviewed and negative Nose: reports: Reviewed and negative Throat: reports: Reviewed and negative Cardiac: reports: Reviewed and negative Respiratory: reports: Reviewed and negative GI: reports: Reviewed and negative : denies: Dysuria, Frequency, Hesitancy Skin: denies: Rash, Lesions Musculoskeletal: reports: Reviewed and negative Neurologic: reports: Reviewed and negative PD PAST MEDICAL HISTORY - Past Medical History Past Medical History: Yes Cardiovascular: High cholesterol, Murmur Respiratory: COPD, Pneumonia, Shortness of breath Neuro: Headaches, Migraines, Peripheral neuropathy, Seizure disorder, Other Endocrine/Autoimmune: Type 1 diabetes GI: GERD, GI bleed, Ulcers, Other 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 : Kidney stones, Other HEENT: Chronic vision loss, Chronic sinusitis Psych: Other Musculoskeletal: Osteoarthritis, Fibromyalgia, Fatigue, Chronic back pain Derm: None - Past Surgical History Past Surgical History: Yes General: Gastric surgery Ortho: Other /BUSINESS PLANNING ANALYST: section, Endometrial ablation, Tubal ligation HEENT: Tonsil/Adenoidectomy - Present Medications Home Medications: Ambulatory Orders Medication Instructions Recorded Confirmed Prazosin HCl 5 mg PO QPM 01/23/19 11/06/20 Trazodone HCl 200 mg PO QPM 01/23/19 11/06/20 Duloxetine HCl [Cymbalta] 60 mg PO BID 09/15/19 11/06/20 Insulin Aspart [Novolog] 0 units SQ .SLIDING SCALE 03/30/20 11/06/20 Butalb/Acetaminophen/Caffeine 1 cap PO Q4H PRN 11/06/20 11/06/20 [Fioricet 50-300-40 mg Capsule] Dicyclomine [Bentyl] 20 mg PO BID 11/06/20 11/06/20 Escitalopram Oxalate [Lexapro] 20 mg PO BID 11/06/20 11/06/20 Eszopiclone [Lunesta] 3 mg PO QPM PRN 11/06/20 11/06/20 Glucagon,Human Recombinant 1 mg IJ PRN PRN 11/06/20 11/06/20 [Glucagon Emergency Kit] LORazepam [Ativan] 1 mg PO TID PRN 11/06/20 11/06/20 Levothyroxine [Synthroid] 125 mcg PO QDAC 11/06/20 11/06/20 Methocarbamol [Robaxin-750] 750 mg PO Q4H PRN 11/06/20 Metoclopramide [Reglan] 10 mg PO Q4H PRN 11/06/20 11/06/20 Mirabegron [Myrbetriq] 50 mg PO DAILY 11/06/20 11/06/20 Oxycodone HCl 5 - 10 mg PO Q8H PRN 11/06/20 11/06/20 Pantoprazole Sodium [Protonix] 20 mg PO QDAC 11/06/20 11/06/20 Pramipexole [Mirapex] 0.25 mg PO Q6H 11/06/20 11/06/20 Promethazine [Phenergan] 25 mg PO Q6H PRN 11/06/20 11/06/20 Promethazine [Phenergan] 25 mg PO Q6HR PRN #14 tablet 11/06/20 Simvastatin [Zocor] 20 mg PO QPM 11/06/20 11/06/20 Spironolactone [Aldactone] 100 mg PO DAILY 11/06/20 11/06/20 - Allergies Allergies/Adverse Reactions: Allergies Allergy/AdvReac Type Severity Reaction Status Date / Time carisoprodol [From Soma] Allergy Unknown Verified 01/21/21 17:33 divalproex sodium Allergy Rash Verified 01/21/21 17:33 [From Depakote] gabapentin [From Neurontin] Allergy Edema Verified 01/21/21 17:33 lidocaine Allergy Unknown Verified 01/21/21 17:33 nitrofurantoin Allergy Rash Verified 01/21/21 17:33 macrocrystalline * [From Macrodantin] nortriptyline Allergy Unknown Verified 01/21/21 17:33 ondansetron [From Zofran] Allergy Hives Verified 01/21/21 17:33 ondansetron HCl * Allergy Hives Verified 01/21/21 17:33 [From Zofran (as hydrochloride)] pregabalin [From Lyrica] Allergy Headache Verified 01/21/21 17:33 - Social History Does the pt smoke?: Yes Smoking Status: Current every day smoker Does the pt drink ETOH?: No Does the pt have substance abuse?: No - Immunizations Immunizations are current?: Yes Immunizations: TDAP >10years/unknown - POLST Patient has POLST: No POLST Status: DNR PD ED PE EXPANDED - General General: Alert, No acute distress - Neck Neck: Supple w/out meningeal sx. No: Adenopathy - Cardiac Cardiac: Regular Rate, Radial strong equal, Pedal strong equal, Cap refill < 2 sec - Respiratory Respiratory: Clear to ausultation dylan. No: Distress, Labored - Abdomen Abdomen: Normal Bowel sounds. No: Tender to palpation - Neuro Neuro: Alert and Oriented X 3, CNII-XII intact, Normal gait, Normal finger nose, Normal speech - GCS Eye Opening: Spontaneous Motor: Obeys Commands Verbal: Oriented Total: 15 Results - Vitals Vitals: Vital Signs - 24 hr 01/21/21 01/21/21 17:26 19:12 Temperature 36.7 C Heart Rate 89 101 H Respiratory 22 Rate Blood Pressure 144/78 H 173/109 H O2 Saturation 98 Oxygen O2 Source Room air - Labs Labs: Laboratory Tests 01/21/21 01/21/21 01/21/21 17:55 18:04 18:04 WBC 4.6 L RBC 3.80 L Hgb 9.7 L Hct 31.9 L MCV 83.9 MCH 25.5 L MCHC 30.4 L RDW 15.5 H Plt Count 396 MPV 9.3 Neut # (Auto) 3.1 Lymph # (Auto) 1.0 L [place] # (Auto) 0.4 Eos # (Auto) 0.2 Baso # (Auto) 0.0 Absolute Nucleated RBC 0.00 Nucleated RBC % 0.0 Sodium 131 L Potassium 3.9 Chloride 95 L Carbon Dioxide 23 Anion Gap 13.0 BUN 8 Creatinine 0.9 Estimated GFR (MDRD) 67 L Glucose 401 H Calcium 8.7 Total Bilirubin 0.4 AST 10 ALT 14 Alkaline Phosphatase 123 H Total Protein 6.6 L Albumin 3.4 Globulin 3.2 Albumin/Globulin Ratio 1.1 Lipase 20 L Urine Color LT. YELLOW Urine Clarity CLEAR Urine pH 6.0 Ur Specific [place] 1.010 Urine Protein NEGATIVE Urine Glucose (UA) >=1000 H Urine Ketones NEGATIVE Urine Occult Blood NEGATIVE Urine Nitrite NEGATIVE Urine Bilirubin NEGATIVE Urine Urobilinogen 0.2 (NORMAL) Ur Leukocyte Esterase NEGATIVE Ur Microscopic Review NOT INDICATED Urine Culture Comments NOT INDICATED Serum Ketones NEGATIVE PD MEDICAL DECISION MAKING - ED course Complexity details: reviewed results, re-evaluated patient, considered differential, d/w patient ED course: 45-year-old female presents emergency department for concerns that her blood sugars have had wide swings over the last 24 hours. Glucose of 505 fpr EMS However here in the emergency department her blood sugar was 470. Patient reports that when she has elevated blood glucose she has a protocol by which she gives herself a bolus if the sugar is greater than 500. She is also able to inc rease and decrease her basal insulin rate which she reports is running at 1.2 units an hour. Screening labs here today show a mild hyponatremia expected with a hyperglycemia. She is not in DKA. Serum ketones are negative. Urine shows no signs of infection. I discussed with patient that when her glucometer was reading greater than 500 it appropriate to give herself the bolus of insulin as by protocol. We have no findings of infection. Patient reports that she will call her roll builder Dr. Lorenzo tomorrow to discuss the swings in her glucose. Advised if she has any blood glucose under 120 to drink orange juice. Emergent return precautions discussed Departure - Departure Disposition: 01 Home, Self Care Clinical Impression: Hyperglycemia due to type 1 diabetes mellitus Condition: Stable Record reviewed to determine appropriate education?: Yes Follow-Up: León Lorenzo MD [Physician No Access] - Comments: Jammie if you find that your blood glucose is low at home always drink orange juice or eat some hard candy. Always follow the protocol that your roll builder prescribed for blood sugar greater than 500. This includes giving yourself a bolus of insulin. It is important to discuss the wide swings in your blood sugar with your roll builder. If you find that you are having fainting episodes, a persistently low blood sugar or sugar greater than 500 that does not respond to the insulin bolus then please return immediately to the emergency department
[2021-01-21 18:10] LABS: BASOPHILS % (AUTO) 0.9 %; EOSINOPHILS # (AUTO) 0.2 10^3/uL (0.0-0.7); EOSINOPHILS % (AUTO) 3.2 %; HCT - HEMATOCRIT 31.9 % (37.0-47.0); HGB - HEMOGLOBIN 9.7 g/dL (12.0-16.0); LYMPHOCYTES % (AUTO) 20.7 %; MEAN CORPUSCULAR HEMOGLOBIN 25.5 pg (27.0-31.0); MEAN CORPUSCULAR HGB CONC 30.4 g/dL (32.0-36.0); MEAN CORPUSCULAR VOLUME 83.9 fL (81.0-99.0); MEAN PLATELET VOLUME 9.3 fL (7.9-10.8); MONOCYTES # (AUTO) 0.4 10^3/uL (0.0-1.0); MONOCYTES % (AUTO) 8.8 %; NEUTROPHILS # (AUTO) 3.1 10^3/uL (1.5-6.6); PLT - PLATELET COUNT 396 10^3/uL (130-450); RED CELL DISTRIBUTION WIDTH 15.5 % (12.0-15.0); WHITE BLOOD COUNT 4.6 x10^3/uL (4.8-10.8)
[2021-01-21 18:18] LABS: KETONES, SERUM (ACETEST) NEGATIVE (NEGATIVE)
[2021-01-21 18:24] LABS: ALBUMIN 3.4 g/dL (3.2-5.5); ALBUMIN/GLOBULIN RATIO 1.1 (1.0-2.2); ALKALINE PHOSPHATASE 123 IU/L (42-121); ALT ALANINE AMINOTRANSFERASE 14 IU/L (10-60); AST ASPARTATE AMINOTRANSFERASE 10 IU/L (10-42); BILIRUBIN,TOTAL 0.4 mg/dL (0.2-1.0); BUN - BLOOD UREA NITROGEN 8 mg/dL (6-20); CALCIUM 8.7 mg/dL (8.5-10.3); CARBON DIOXIDE - CO2 23 mmol/L (21-32); CHLORIDE 95 mmol/L (101-111); CREATININE 0.9 mg/dL (0.4-1.0); GFR - MDRD 67 (>89); GLUCOSE 401 mg/dL (70-100); LIPASE 20 U/L (22-51); POTASSIUM 3.9 mmol/L (3.5-5.0); SODIUM 131 mmol/L (135-145); TOTAL PROTEIN 6.6 g/dL (6.7-8.2)
[2021-01-21 18:30] LABS: BILIRUBIN,URINE NEGATIVE (NEGATIVE); GLUCOSE, URINE (UA) >=1000 mg/dL (NEGATIVE); KETONES,URINE (UA) NEGATIVE (NEGATIVE); LEUKOCYTE ESTERASE, URINE NEGATIVE (NEGATIVE); NITRITE,URINE NEGATIVE (NEGATIVE); OCCULT BLOOD,URINE NEGATIVE (NEGATIVE); PROTEIN,URINE NEGATIVE (NEGATIVE); UROBILINOGEN,URINE 0.2 (NORMAL) E.U./dL (NORMAL)
[2021-01-21 18:34] LABS: CLARITY,URINE CLEAR (CLEAR)
[2021-01-21 19:56] VITALS: BP 168/101
== END 2021-01-21 19:55 | disposition home or self-care (01) ==
LOC: EDUNIT# → ED 17:21 → SUPCPDRO 17:21 → ED 19:55
DX: E10.65 Type 1 diabetes mellitus with hyperglycemia (principal); E10.42 Type 1 diabetes mellitus with diabetic polyneuropathy; Z79.4 Long term (current) use of insulin; F17.200 Nicotine dependence, unspecified, uncomplicated
CPT/HCPCS: 36415; 80053; 81001; 81003; 82009; 83690; 85025; 87086; 99283

== ENCOUNTER 2021-01-22 12:28 | Outpatient (CLI) | payer MEDICARE, MEDICAID | END 2021-01-22 12:29 | disposition critical access hospital (66) | LOC: EMS 12:28 | PROVIDERS: ATTEND Emergency Medicine | DX: R73.9 Hyperglycemia, unspecified (principal) | CPT/HCPCS: A0425; A0429 ==

== ENCOUNTER 2021-01-22 12:49 | Emergency (ER) | payer MEDICARE, MEDICAID ==
[2021-01-22] MEDS ORDERED: SODIUM CHLORIDE 0.9% 1,000 ML IV STA ×2 (13:07→13:48)
--- NOTE | 2021-01-22 13:16 | ED Physician Documentation ---
History of Present Illness - Stated complaint Stated Complaint: HYPERGLYCEMIA - Chief complaint Chief Complaint: General - Additonal information Additional information: 45-year-old female presents the emergency department for evaluation of her blood sugars. She was seen by myself for similar yesterday evening in which she presented with hyperglycemia. She does see supervisor customer services Dr. Lorenzo through [facility] in [place]. Yesterday she was noted to be hyperglycemic with a blood sugar greater than 500 but negative serum ketones. Patient stated that she understands when she has elevated blood sugars (greater than 500mg/dl) that she is to give herself a bolus of insulin. This morning just prior to arrival she looked at her continuous glucose monitor and saw two down pointing arrows therefore she turned off her insulin pump concerned that her sugars were low. When EMS arrived her blood glucose was greater than 400 therefore she turned it back on again. Patient denies abdominal pain, vomiting, diarrhea, dysuria, chest pain, or shortness of breath. I evaluated her continuous glucose monitor at the bedside with the patient and in review of the last 18 to 24 hours her blood glucose has not been less than about 380 mg/dL. I discussed with the patient that I am concerned she may be misinterpreting her glucose monitor. Pt has scheduled a f/u appointmetn with her supervisor customer services 02/26/21 Review of Systems Constitutional: denies: Fever, Chills Eyes: reports: Reviewed and negative Ears: reports: Reviewed and negative Nose: reports: Reviewed and negative Throat: reports: Reviewed and negative Cardiac: denies: Chest pain / pressure, Palpitations, Pedal edema, Calf pain Respiratory: denies: Dyspnea, Cough, Hemoptysis, Wheezing GI: denies: Abdominal Pain, Nausea, Vomiting : denies: Dysuria, Frequency, Hesitancy, Hematuria, Discharge Skin: denies: Rash, Lesions Musculoskeletal: denies: Neck pain, Back pain Neurologic: reports: Generalized weakness. 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: Other : Kidney stones, Other HEENT: Chronic vision loss, Chronic sinusitis Psych: Other Musculoskeletal: Osteoarthritis, Fibromyalgia, Fatigue, Chronic back pain Derm: None - Past Surgical History Past Surgical History: Yes General: Gastric surgery Ortho: Other /LAP WELDER: section, Endometrial ablation, Tubal ligation HEENT: Tonsil/Adenoidectomy - Present Medications Home Medications: Ambulatory Orders Medication Instructions Recorded Confirmed Prazosin HCl 5 mg PO QPM 01/23/19 11/06/20 Trazodone HCl 200 mg PO QPM 01/23/19 11/06/20 Duloxetine HCl [Cymbalta] 60 mg PO BID 09/15/19 11/06/20 Insulin Aspart [Novolog] 0 units SQ .SLIDING SCALE 03/30/20 11/06/20 Butalb/Acetaminophen/Caffeine 1 cap PO Q4H PRN 11/06/20 11/06/20 [Fioricet 50-300-40 mg Capsule] Dicyclomine [Bentyl] 20 mg PO BID 11/06/20 11/06/20 Escitalopram Oxalate [Lexapro] 20 mg PO BID 11/06/20 11/06/20 Eszopiclone [Lunesta] 3 mg PO QPM PRN 11/06/20 11/06/20 Glucagon,Human Recombinant 1 mg IJ PRN PRN 11/06/20 11/06/20 [Glucagon Emergency Kit] LORazepam [Ativan] 1 mg PO TID PRN 11/06/20 11/06/20 Levothyroxine [Synthroid] 125 mcg PO QDAC 11/06/20 11/06/20 Methocarbamol [Robaxin-750] 750 mg PO Q4H PRN 11/06/20 Metoclopramide [Reglan] 10 mg PO Q4H PRN 11/06/20 11/06/20 Mirabegron [Myrbetriq] 50 mg PO DAILY 11/06/20 11/06/20 Oxycodone HCl 5 - 10 mg PO Q8H PRN 11/06/20 11/06/20 Pantoprazole Sodium [Protonix] 20 mg PO QDAC 11/06/20 11/06/20 Pramipexole [Mirapex] 0.25 mg PO Q6H 11/06/20 11/06/20 Promethazine [Phenergan] 25 mg PO Q6H PRN 11/06/20 11/06/20 Promethazine [Phenergan] 25 mg PO Q6HR PRN #14 tablet 11/06/20 Simvastatin [Zocor] 20 mg PO QPM 11/06/20 11/06/20 Spironolactone [Aldactone] 100 mg PO DAILY 11/06/20 11/06/20 - Allergies Allergies/Adverse Reactions: Allergies Allergy/AdvReac Type Severity Reaction Status Date / Time carisoprodol [From Soma] Allergy Unknown Verified 01/22/21 12:58 divalproex sodium Allergy Rash Verified 01/22/21 12:58 [From Depakote] gabapentin [From Neurontin] Allergy Edema Verified 01/22/21 12:58 lidocaine Allergy Unknown Verified 01/22/21 12:58 nitrofurantoin Allergy Rash Verified 01/22/21 12:58 macrocrystalline * [From Macrodantin] nortriptyline Allergy Unknown Verified 01/22/21 12:58 ondansetron [From Zofran] Allergy Hives Verified 01/22/21 12:58 ondansetron HCl * Allergy Hives Verified 01/22/21 12:58 [From Zofran (as hydrochloride)] pregabalin [From Lyrica] Allergy Headache Verified 01/22/21 12:58 - Social History Does the pt smoke?: No Smoking Status: Never smoker Does the pt drink ETOH?: No Does the pt have substance abuse?: No - Immunizations Immunizations are current?: Yes Immunizations: TDAP >10years/unknown - POLST Patient has POLST: No POLST Status: DNR PD ED PE EXPANDED - General General: Alert, No acute distress - Cardiac Cardiac: Regular Rate, Regular Rhythm, Radial strong equal, Pedal strong equal, Cap refill < 2 sec. No: Murmur Present - Respiratory Respiratory: Clear to ausultation dylan. No: Distress, Labored - Abdomen Abdomen: Normal Bowel sounds. No: Tender to palpation - Derm Derm: Normal color, Warm and dry. No: Rash, Petecchiae, Purpura - Extremities Extremities: Normal. No: Deformity, Tenderness - Neuro Neuro: Alert and Oriented X 3, CNII-XII intact - GCS Eye Opening: Spontaneous Motor: Obeys Commands Verbal: Oriented Total: 15 Results - Vitals Vitals: Vital Signs - 24 hr 01/22/21 01/22/21 01/22/21 12:50 13:07 14:23 Temperature 36.9 C Heart Rate 108 H 106 H 106 H Respiratory 16 16 18 Rate Blood Pressure 151/90 H 163/95 H 157/90 H O2 Saturation 96 96 97 01/22/21 15:17 Temperature Heart Rate 107 H Respiratory 18 Rate Blood Pressure 151/97 H O2 Saturation 96 Oxygen O2 Source Room air - Labs Labs: Laboratory Tests 01/22/21 01/22/21 01/22/21 13:10 13:11 13:58 VBG pH 7.428 H VBG pCO2 34.4 L VBG pO2 58.4 H VBG HCO3 22.2 L VBG Total CO2 23.3 L VBG O2 Saturation 89.4 H VBG Base Excess -1.7 Sodium 132 L Potassium 3.9 Chloride 97 L Carbon Dioxide 22 Anion Gap 13.0 BUN 7 Creatinine 0.9 Estimated GFR (MDRD) 67 L Glucose 346 H Calcium 9.2 Total Bilirubin 0.3 AST 12 ALT 14 Alkaline Phosphatase 127 H Total Protein 6.6 L Albumin 3.5 Globulin 3.1 Albumin/Globulin Ratio 1.1 Lipase 25 Urine Color YELLOW Urine Clarity CLEAR Urine pH 6.0 Ur Specific [place] 1.010 Urine Protein NEGATIVE Urine Glucose (UA) >=1000 H Urine Ketones NEGATIVE Urine Occult Blood NEGATIVE Urine Nitrite NEGATIVE Urine Bilirubin NEGATIVE Urine Urobilinogen 0.2 (NORMAL) Ur Leukocyte Esterase NEGATIVE Ur Microscopic Review NOT INDICATED Urine Culture Comments NOT INDICATED Serum Ketones SMALL H PD MEDICAL DECISION MAKING - ED course Complexity details: reviewed old records, reviewed results, re-evaluated patient, considered differential, d/w patient ED course: 45-year-old female presents to the emergency department for evaluation of her blood glucose. She was seen yesterday for similar and was noted to be hyperglycemic but not in DKA. This a.m. she lifted her air CGM and noted to downward arrows therefore she turned off her insulin pump which goes at a basal rate of 1.2 units/h and called 911. On presentation to the emergency department she has a blood glucose over 300 and it was greater than 400 for EMS. Her insulin pump was turned back on by EMS. In evaluating her CGM there do not appear to be any low or hypoglycemic episodes over the last 24 hours. I do wonder if she is missed reading the down arrows or perhaps have the monitor turned the wrong direction. Here in the emergency department she has a normal pH and no anion gap. There are no ketones in her urine though there is a small amount of ketones in her blood. She was given 2 units liters of crystalloid here in the emergency department and on repeat her blood glucose is 285. Clinically she is not in DKA. She does have a follow-up appointment with her supervisor customer services scheduled for February 26. I did spend a fair amount of time discussing with the patient that if she is unsure what her CGM monitor reads she may want to manually check her fingerstick glucose. We discussed that when her blood sugars are greater than 500 it is appropriate to give the bolus of insulin as previously prescribed by her supervisor customer services. For low blood sugars I would recommend that she stop her insulin pump and drink glucose-containing solution. Patient reports that she feels better and is ready for discharge home. Emergent return precautions discussed. Departure - Departure Disposition: Home, Self Care Clinical Impression: Hyperglycemia due to type 1 diabetes mellitus Condition: Stable Record reviewed to determine appropriate education?: Yes Instructions: ED Hyperglycemia Diabetic Follow-Up: Isatu Belle MD [Primary Care Provider] - León Lorenzo MD [Physician No Access] - Comments: Jammie it is important that you keep a close check on your blood sugars at home. If you feel that your continuous glucose monitor is reading too high please recheck that value with a fingerstick to make sure that the numbers c orrelate. If you find that your blood sugars are less than 100 I do recommend that you reduce the amount of basal insulin that you are taking and drink orange juice. Please discuss this ED visit with your primary care doctor as well as Dr. Lorenzo your supervisor customer services with whom we have arranged follow-up. Return to the emergency department if you have blood sugars greater than 500 that do not reduce after giving your normal bolus of insulin. Return to the emergency department for abdominal pain uncontrolled vomiting diarrhea or any fevers.
[2021-01-22 13:29] LABS: BILIRUBIN,URINE NEGATIVE (NEGATIVE); CLARITY,URINE CLEAR (CLEAR); GLUCOSE, URINE (UA) >=1000 mg/dL (NEGATIVE); KETONES,URINE (UA) NEGATIVE (NEGATIVE); LEUKOCYTE ESTERASE, URINE NEGATIVE (NEGATIVE); NITRITE,URINE NEGATIVE (NEGATIVE); OCCULT BLOOD,URINE NEGATIVE (NEGATIVE); PROTEIN,URINE NEGATIVE (NEGATIVE); UROBILINOGEN,URINE 0.2 (NORMAL) E.U./dL (NORMAL)
[2021-01-22 13:33] LABS: ALBUMIN 3.5 g/dL (3.2-5.5); ALBUMIN/GLOBULIN RATIO 1.1 (1.0-2.2); ALKALINE PHOSPHATASE 127 IU/L (42-121); ALT ALANINE AMINOTRANSFERASE 14 IU/L (10-60); AST ASPARTATE AMINOTRANSFERASE 12 IU/L (10-42); BILIRUBIN,TOTAL 0.3 mg/dL (0.2-1.0); BUN - BLOOD UREA NITROGEN 7 mg/dL (6-20); CALCIUM 9.2 mg/dL (8.5-10.3); CARBON DIOXIDE - CO2 22 mmol/L (21-32); CHLORIDE 97 mmol/L (101-111); CREATININE 0.9 mg/dL (0.4-1.0); GFR - MDRD 67 (>89); GLUCOSE 346 mg/dL (70-100); LIPASE 25 U/L (22-51); POTASSIUM 3.9 mmol/L (3.5-5.0); SODIUM 132 mmol/L (135-145); TOTAL PROTEIN 6.6 g/dL (6.7-8.2)
[2021-01-22 13:46] LABS: KETONES, SERUM (ACETEST) SMALL (NEGATIVE)
[2021-01-22 14:03] LABS: VBG BASE EXCESS -1.7 mmol/L (-2 - +2); VBG HCO3 22.2 mmol/L (23-28); VBG OXYGEN SATURATION 89.4 % (60-80); VBG PCO2 34.4 mmHg (41-51); VBG PH 7.428 (7.31-7.41); VBG PO2 58.4 mmHg (25-47); VBG TOTAL CO2 23.3 mmol/L (24-29)
[2021-01-22 15:18] VITALS: BP 151/97
== END 2021-01-22 15:35 | disposition home or self-care (01) ==
LOC: EDUNIT# → ED 12:49
DX: E10.65 Type 1 diabetes mellitus with hyperglycemia (principal); Z96.41 Presence of insulin pump (external) (internal); Z79.4 Long term (current) use of insulin
CPT/HCPCS: 36415; 80053; 81001; 81003; 82009; 82803; 83690; 87086; 96360; 96361; 99283

== ENCOUNTER 2021-02-17 21:19 | Inpatient (IN) | payer MEDICARE, MEDICAID ==
[2021-02-17] MEDS ORDERED: KETOROLAC 30 MG/ML VIAL IVP STA (21:40)
[2021-02-17] MEDS ORDERED: diphenhydrAMINE INJ 50 MG/ML VIAL IVP STA (21:40)
[2021-02-17] MEDS ORDERED: SODIUM CHLORIDE 0.9% 1,000 ML IV STA ×2 (21:40→23:19)
[2021-02-17] MEDS ORDERED: PROMETHAZINE INJ 25 MG in SODIUM CHLORIDE 0.9% 50 ML IV STA (21:40)
--- NOTE | 2021-02-17 21:46 | ED Physician Documentation ---
PD HPI HEADACHE - Stated complaint Stated Complaint: MIGRANE - Chief complaint Chief Complaint: Neuro - History obtained from History obtained from: Patient - Additional information Additional information: Patient comes emergency department chief complaint of migraine headache for "over a week". She also states she has been nauseated and vomiting for the last 5 days. Patient states she has not been ill with anything else. No fevers or chills. She has a history of headaches, which she reports are migraines, and this feels the same. She normally takes Fioricet, but states that she has not been able to keep it down. She states her diabetes has been doing reasonably well since the last time she was seen here in early January. Patient denies recent head injury. No neck pain. No abdominal pain. No other complaints at this time. Review of Systems Ten Systems: 10 systems reviewed and negative Constitutional: reports: Reviewed and negative. denies: Fever, Chills Eyes: reports: Reviewed and negative Ears: reports: Reviewed and negative Nose: reports: Reviewed and negative Throat: reports: Reviewed and negative Cardiac: reports: Reviewed and negative Respiratory: reports: Reviewed and negative GI: reports: Nausea, Vomiting : reports: Reviewed and negative Skin: reports: Reviewed and negative Musculoskeletal: reports: Reviewed and negative Neurologic: reports: Headache. 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: Other : Kidney stones, Other HEENT: Chronic vision loss, Chronic sinusitis Psych: Other Musculoskeletal: Osteoarthritis, Fibromyalgia, Fatigue, Chronic back pain Derm: None Other Past Medical History: insomnia - Past Surgical History Past Surgical History: Yes General: Gastric surgery Ortho: Other /FOOD SERVICE COORDINATOR: section, Endometrial ablation, Tubal ligation HEENT: Tonsil/Adenoidectomy - Present Medications Home Medications: Ambulatory Orders Medication Instructions Recorded Confirmed Prazosin HCl 5 mg PO QPM 01/23/19 02/18/21 Trazodone HCl 300 mg PO QPM 01/23/02/18/21 Duloxetine HCl [Cymbalta] 60 mg PO BID 10/25/19 03/30/21 Insulin Aspart [Novolog] 30 - 40 units SQ .SLIDING SCALE 03/30/20 02/18/21 Butalb/Acetaminophen/Caffeine 1 cap PO Q4H PRN 11/06/20 02/18/21 [Fioricet 50-300-40 mg Capsule] Escitalopram Oxalate [Lexapro] 20 mg PO BID 11/06/20 02/18/21 Eszopiclone [Lunesta] 3 mg PO QPM PRN 11/06/20 02/18/21 Glucagon,Human Recombinant 1 mg IJ PRN PRN 11/06/20 02/18/21 [Glucagon Emergency Kit] Levothyroxine [Synthroid] 125 mcg PO QDAC 11/06/20 02/18/21 Methocarbamol [Robaxin-750] 750 mg PO Q6H PRN 11/06/20 02/18/21 Metoclopramide [Reglan] 10 mg PO Q6H PRN 11/06/20 02/18/21 Mirabegron [Myrbetriq] 50 mg PO DAILY 11/06/20 02/18/21 Pantoprazole Sodium [Protonix] 20 mg PO QDAC 11/06/20 02/18/21 Promethazine [Phenergan] 25 mg PO Q6HR PRN #14 tablet 11/06/20 02/18/21 Simvastatin [Zocor] 20 mg PO QPM 11/06/20 02/18/21 Spironolactone [Aldactone] 100 mg PO DAILY 11/06/20 02/18/21 - Allergies Allergies/Adverse Reactions: Allergies Allergy/AdvReac Type Severity Reaction Status Date / Time carisoprodol [From Soma] Allergy Unknown Verified 02/20/21 15:47 divalproex sodium Allergy Rash Verified 02/20/21 15:47 [From Depakote] gabapentin [From Neurontin] Allergy Edema Verified 02/20/21 15:47 lidocaine Allergy Unknown Verified 02/20/21 15:47 nitrofurantoin Allergy Rash Verified 02/20/21 15:47 macrocrystalline * [From Macrodantin] nortriptyline Allergy Unknown Verified 02/20/21 15:47 ondansetron [From Zofran] Allergy Hives Verified 02/20/21 15:47 ondansetron HCl * Allergy Hives Verified 02/20/21 15:47 [From Zofran (as hydrochloride)] pregabalin [From Lyrica] Allergy Headache Verified 02/20/21 15:47 - Social History Does the pt smoke?: No Smoking Status: Never smoker Does the pt drink ETOH?: No Does the pt have substance abuse?: No - Immunizations Immunizations are current?: Yes Immunizations: TDAP >10years/unknown - POLST Patient has POLST: No POLST Status: DNR PD ED PE NORMAL - Vitals Vital signs reviewed: Yes - General General: Alert and oriented X 3, No acute distress - HEENT HEENT: Atraumatic, PERRL, EOMI, Moist mucous membranes - Neck Neck: Supple, no meningeal sign - Cardiac Cardiac: RRR, No murmur, Strong equal pulses - Respiratory Respiratory: No respiratory distress, Clear bilaterally - Abdomen Abdomen: Soft, Non tender, Non distended - Derm Derm: Normal color, Warm and dry, No rash - Extremities Extremities: No deformity - Neuro Neuro: Alert and oriented X 3, traffic warehouse supervisor 2-12 intact, Normal speech, Other (Grossly intact.) - Psych Psych: Normal mood, Normal affect Results - Vitals Vitals: Oxygen O2 Source Room air - Labs Labs: Laboratory Tests 02/17/21 02/17/21 02/17/21 21:50 21:50 21:50 WBC 4.9 RBC 4.26 Hgb 10.6 L Hct 38.1 MCV 89.4 MCH 24.9 L MCHC 27.8 L RDW 15.9 H Plt Count 437 MPV 11.5 H Neut # (Auto) 3.6 Lymph # (Auto) 0.7 L [place] # (Auto) 0.5 Eos # (Auto) 0.0 Baso # (Auto) 0.0 Absolute Nucleated RBC 0.00 Nucleated RBC % 0.0 Manual Slide Review Indicated WBC Morphology NORMAL APPEARANCE Platelet Estimate NORMAL (130-450,000) Platelet Morphology NORMAL APPEARANCE RBC Morph Micro Appear 1+ HYPOCHROMASIA Sodium 111 L* Potassium 5.5 H Chloride 72 L* Carbon Dioxide 20 L Anion Gap 19.0 H BUN 17 Creatinine 1.6 H Estimated GFR (MDRD) 35 L Glucose 1440 H* Calcium 9.2 Total Bilirubin 0.4 AST 11 ALT 20 Alkaline Phosphatase 135 H Total Protein 7.5 Albumin 3.9 Globulin 3.6 Albumin/Globulin Ratio 1.1 Lipase 36 Serum Ketones NEGATIVE PD MEDICAL DECISION MAKING - ED course Complexity details: reviewed old records, reviewed results, re-evaluated patient, considered differential, d/w patient ED course: Patient was treated with IV fluids, Phenergan, Toradol, and Benadryl. Given her complicated history of diabetes, I felt she should have a POC glucose done, and this was found to be >600. As such, pt was given 12 units of regular insulin IV, and labs were done. These showed, of note, a glucose of 1440 and a sodium of 111. I continued to give the pt IV fluid boluses, and pt maintained good mental status throughout her stay in the ED. I spoke with Dr. Allan, the on- call hospitalist, and he agreed to admit the pt to his service. Insulin drip was ordered, and was started in the ED, but nursing staff informed me they were documenting this under internal medicine order to ensure continuity of administration upon pt's arrival in the ICU. ABG was also ordered, but RT did not arrive to collect this until after pt had been transferred to the unit. Pt remained stable throughout the rest of her stay in the ED. Departure - Departure Disposition: 66 [facility] DC/Xfer Clinical Impression: Hyperglycemia due to diabetes mellitus, Hyponatremia Condition: Fair Discharge Date/Time: 02/18/21 00:45
[2021-02-17] MEDS ORDERED: PROMETHAZINE 25 MG/1 ML VIAL ONE (22:07)
[2021-02-17] MEDS ORDERED: INSULIN REGULAR HUMAN 300 UNIT/3 ML VIAL IVP ONE (22:27)
[2021-02-17 22:32] LABS: BASOPHILS % (AUTO) 0.8 %; EOSINOPHILS % (AUTO) 0.2 %; HCT - HEMATOCRIT 38.1 % (37.0-47.0); HGB - HEMOGLOBIN 10.6 g/dL (12.0-16.0); LYMPHOCYTES # (AUTO) 0.7 10^3/uL (1.5-3.5); LYMPHOCYTES % (AUTO) 14.6 %; MEAN CORPUSCULAR HEMOGLOBIN 24.9 pg (27.0-31.0); MEAN CORPUSCULAR HGB CONC 27.8 g/dL (32.0-36.0); MEAN CORPUSCULAR VOLUME 89.4 fL (81.0-99.0); MEAN PLATELET VOLUME 11.5 fL (7.9-10.8); MONOCYTES # (AUTO) 0.5 10^3/uL (0.0-1.0); MONOCYTES % (AUTO) 10.4 %; NEUTROPHILS # (AUTO) 3.6 10^3/uL (1.5-6.6); NEUTROPHILS % (AUTO) 73.4 %; PLT - PLATELET COUNT 437 10^3/uL (130-450); RED BLOOD COUNT 4.26 10^6/uL (4.20-5.40); RED CELL DISTRIBUTION WIDTH 15.9 % (12.0-15.0); WHITE BLOOD COUNT 4.9 x10^3/uL (4.8-10.8)
[2021-02-17 22:36] LABS: SLIDE REVIEW? Indicated
[2021-02-17 22:56] LABS: ALBUMIN 3.9 g/dL (3.2-5.5); ALBUMIN/GLOBULIN RATIO 1.1 (1.0-2.2); BILIRUBIN,TOTAL 0.4 mg/dL (0.2-1.0); CALCIUM 9.2 mg/dL (8.5-10.3); CREATININE 1.6 mg/dL (0.4-1.0); POTASSIUM 5.5 mmol/L (3.5-5.0); TOTAL PROTEIN 7.5 g/dL (6.7-8.2)
[2021-02-17 23:01] LABS: PLATELET ESTIMATE, MANUAL NORMAL (130-450,000) (NORMAL); PLATELET MORPHOLOGY NORMAL APPEARANCE (NORMAL); RBC MORPHOLOGY (MULTIPLE) 1+ HYPOCHROMASIA (NORMAL); WBC MORPHOLOGY (MULTIPLE) NORMAL APPEARANCE (NORMAL)
[2021-02-17] MEDS ORDERED: ONDANSETRON 4 MG/2 ML VIAL IVP PRN (23:25)
[2021-02-17] MEDS ORDERED: ACETAMINOPHEN 325 MG TABLET PO PRN (23:25)
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
[2021-02-17] MEDS ORDERED: INSULIN REGULAR HUMAN 100 UNIT in SODIUM CHLORIDE 0.9% 100ML 99 ML IV SCH (23:45)
[2021-02-17] MEDS ORDERED: DEXTROSE 5%-0.45% NACL 1,000 ML IV SCH (23:45)
[2021-02-17] MEDS ORDERED: SODIUM CHLORIDE 0.9% 1,000 ML IV SCH (23:45)
[2021-02-17 23:55] LABS: CALCIUM 9.1 mg/dL (8.5-10.3); CREATININE 1.7 mg/dL (0.4-1.0); MAGNESIUM 2.3 mg/dL (1.7-2.8); POTASSIUM 4.8 mmol/L (3.5-5.0)
[2021-02-18] MEDS ORDERED: INSULIN REGULAR HUMAN 100 UNIT/1 ML 10 ML MDV ONE (00:13)
[2021-02-18] MEDS: INSULIN REGULAR HUMAN 100 UNIT in SODIUM CHLORIDE 0.9% 100ML 99 ML IV STA ×2 (00:25→00:54)
[2021-02-18] MEDS ORDERED: INSULIN REGULAR HUMAN 100 UNIT in SODIUM CHLORIDE 0.9% 100ML 99 ML IV ONE (00:44)
[2021-02-18] MEDS: MORPHINE 2 MG/ML CARPUJECT IVP PRN ×2 (01:04→03:15)
[2021-02-18] MEDS: SODIUM CHLORIDE FLUSH 0.9% 10 ML SYRINGE IVP SCH ×3 (01:42→16:17)
[2021-02-18 01:57] LABS: CORONAVIRUS 229E-RESP PCR NOT DETECTED; CORONAVIRUS HKU1-RESP PCR NOT DETECTED; CORONAVIRUS NL63-RESP PCR NOT DETECTED; CORONAVIRUS OC43-RESP PCR NOT DETECTED; HUMAN METAPNEUMOVIRUS NOT DETECTED; INFLUENZA A- RESP PCR PANEL NOT DETECTED; INFLUENZA B - RESP PCR PANEL NOT DETECTED; PARAINFLUENZA VIRUS 1 NOT DETECTED; PARAINFLUENZA VIRUS 2 NOT DETECTED; PARAINFLUENZA VIRUS 3 NOT DETECTED; PARAINFLUENZA VIRUS 4 NOT DETECTED; RHINOVIRUS/ENTEROVIRUS NOT DETECTED; RSV- RESP PCR PANEL NOT DETECTED; SARS-CoV-2 -RESP PCR PANEL NOT DETECTED
[2021-02-18 01:58] LABS: B. PARAPERTUSSIS- RESP PCR PAN NOT DETECTED; B. PERTUSSIS- RESP PCR PANEL NOT DETECTED; C. PNEUMONIAE- RESP PCR PANEL NOT DETECTED; M. PNEUMONIAE- RESP PCR PANEL NOT DETECTED
[2021-02-18 02:52] LABS: CALCIUM 8.8 mg/dL (8.5-10.3); CREATININE 1.2 mg/dL (0.4-1.0); POTASSIUM 3.6 mmol/L (3.5-5.0)
[2021-02-18 04:41] LABS: BASOPHILS # (AUTO) 0.1 10^3/uL (0.0-0.1); BASOPHILS % (AUTO) 1.1 %; EOSINOPHILS # (AUTO) 0.1 10^3/uL (0.0-0.7); EOSINOPHILS % (AUTO) 1.2 %; HCT - HEMATOCRIT 31.3 % (37.0-47.0); HGB - HEMOGLOBIN 9.9 g/dL (12.0-16.0); LYMPHOCYTES # (AUTO) 3.5 10^3/uL (1.5-3.5); LYMPHOCYTES % (AUTO) 43.3 %; MEAN CORPUSCULAR HEMOGLOBIN 24.8 pg (27.0-31.0); MEAN CORPUSCULAR HGB CONC 31.6 g/dL (32.0-36.0); MEAN CORPUSCULAR VOLUME 78.4 fL (81.0-99.0); MEAN PLATELET VOLUME 10.1 fL (7.9-10.8); MONOCYTES % (AUTO) 11.8 %; NEUTROPHILS # (AUTO) 3.4 10^3/uL (1.5-6.6); NEUTROPHILS % (AUTO) 42.2 %; PLT - PLATELET COUNT 452 10^3/uL (130-450); RED BLOOD COUNT 3.99 10^6/uL (4.20-5.40); RED CELL DISTRIBUTION WIDTH 14.7 % (12.0-15.0); WHITE BLOOD COUNT 8.1 x10^3/uL (4.8-10.8)
[2021-02-18 04:58] LABS: CALCIUM 8.8 mg/dL (8.5-10.3); PHOSPHORUS 3.7 mg/dL (2.5-4.6); POTASSIUM 3.3 mmol/L (3.5-5.0)
[2021-02-18 05:19] LABS: FERRITIN 22.9 ng/mL (11.0-306.8)
[2021-02-18] MEDS: BUTALB/ACETAM/CAFF 50/325/40MG TABLET PO PRN ×4 (05:33→20:06)
[2021-02-18] MEDS: POTASSIUM CHLOR 10 MEQ/100 ML 10 MEQ/100 ML BAG IV SCH ×4 (05:34→09:26)
[2021-02-18 06:22] LABS: FOLATE < 21.00 ng/mL (5.90 - >24.8)
[2021-02-18] MEDS: HEPARIN 5,000 UNIT/ML VIAL SUBQ SCH ×2 (09:08→20:49)
[2021-02-18] MEDS: PROCHLORPERAZINE 10 MG/2 ML VIAL IVP PRN ×3 (09:22→22:26)
[2021-02-18] MEDS: SODIUM CHLORIDE FLUSH 0.9% 10 ML SYRINGE IVP PRN ×3 (09:27→22:26)
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
[2021-02-18 12:27] LABS: ESTIMATED AVERAGE GLUCOSE 309 mg/dL (70-100); HEMOGLOBIN A1c% 12.4 % (4.27-6.07)
--- NOTE | 2021-02-18 13:57 | PHARMACY PROGRESS NOTE ---
- Best Possible Medication History Admit Date and Time: 02/17/21 4167 Processed by: Pharmacy Medication History completed: Yes Patient Interview: Completed (Patient interviewed by Edith 02/18) Secondary Source(s): Pharmacy records As the person ultimately responsible for medication therapy, providers are able to order a medication from an existing home medication list in [facility] via the "Reconcile Routine" prior to Confirmation of that medication by account support analyst. Such practice is discouraged except when the physician, in their clinical judgment, deems that a medical need exists for a medication without regard to previous use.
[2021-02-18] MEDS ORDERED: ESZOPICLONE 3 MG PO PRN (19:11)
[2021-02-18] MEDS ORDERED: ZOLPIDEM 5 MG TABLET PO PRN (19:25)
[2021-02-18] MEDS: traZODone 50 MG TABLET PO SCH (22:25)
[2021-02-18] MEDS ORDERED: INSULIN REGULAR HUMAN 300 UNIT/3 ML VIAL IVP ONE (22:42)
[2021-02-19] MEDS: SODIUM CHLORIDE FLUSH 0.9% 10 ML SYRINGE IVP SCH ×4 (00:15→21:44)
[2021-02-19 04:46] LABS: BASOPHILS # (AUTO) 0.1 10^3/uL (0.0-0.1); BASOPHILS % (AUTO) 1.1 %; EOSINOPHILS # (AUTO) 0.2 10^3/uL (0.0-0.7); EOSINOPHILS % (AUTO) 3.5 %; HCT - HEMATOCRIT 31.8 % (37.0-47.0); HGB - HEMOGLOBIN 9.5 g/dL (12.0-16.0); LYMPHOCYTES # (AUTO) 2.5 10^3/uL (1.5-3.5); MEAN CORPUSCULAR HEMOGLOBIN 24.5 pg (27.0-31.0); MEAN CORPUSCULAR HGB CONC 29.9 g/dL (32.0-36.0); MEAN CORPUSCULAR VOLUME 82.2 fL (81.0-99.0); MEAN PLATELET VOLUME 10.7 fL (7.9-10.8); MONOCYTES # (AUTO) 0.4 10^3/uL (0.0-1.0); MONOCYTES % (AUTO) 7.8 %; NEUTROPHILS # (AUTO) 2.2 10^3/uL (1.5-6.6); PLT - PLATELET COUNT 394 10^3/uL (130-450); RED BLOOD COUNT 3.87 10^6/uL (4.20-5.40); RED CELL DISTRIBUTION WIDTH 15.7 % (12.0-15.0); WHITE BLOOD COUNT 5.4 x10^3/uL (4.8-10.8)
[2021-02-19 04:54] LABS: CALCIUM 8.5 mg/dL (8.5-10.3); CREATININE 0.8 mg/dL (0.4-1.0); POTASSIUM 3.7 mmol/L (3.5-5.0)
[2021-02-19] MEDS: HEPARIN 5,000 UNIT/ML VIAL SUBQ SCH ×2 (10:11→21:05)
[2021-02-19] MEDS: Mirabegron [Myrbetriq] 50 MG Tab.Er.24h PO SCH (10:14)
[2021-02-19 12:24] LABS: ESTIMATED AVERAGE GLUCOSE 315 mg/dL (70-100); HEMOGLOBIN A1c% 12.6 % (4.27-6.07)
[2021-02-19] MEDS: PROCHLORPERAZINE 10 MG/2 ML VIAL IVP PRN ×2 (12:38→18:52)
--- NOTE | 2021-02-19 14:22 | PROVIDER PROGRESS NOTE ---
Subjective - Prog Note Date Prog Note Date: 02/19/21 Prog Note Time: 14:22 - Subjective Subjective: R Ankle x-ray December 27 without fracture. R Ankle x-ray January 26, 2019 with fracture. Ordering physician is Dr. Crystal and she may be in a boot. No office visits seen or ER visits seen for this. Seen in ER March 04 for another fall. Left chest wall contusion. Extremities described as no deformity no edema. Been described as falling and found on the ground September 15, 2019. Tried to walk on it and skin split open. X-ray showed trimalleolar ankle fracture with lateral dislocation and tilting talus. Underwent surgery with Ronni Godfrey. To be 3 months of nonweightbearing. Discharged September 18. She continued to walk on it. Seen in ER September 25 for pain and reinstructed. She was then at [facility] September 29 to October 06. Reoperated on for the ankle because it was unstable. Was to be on penicillin but she did not take it because she did not realize she was supposed to be on penicillin. She had developed and open wound with dehiscense and osteomyelitis. Because she had been noncompliant, her stop date was then recalculated to October 23. Admitted to [facility] October 14, 2019 for DKA. Daughter says that she came home and found mom "crashing around", walking on her ankle, with mirror broken, obtunded. Again overdosing on her opiates. While she was in the hospital she would try to stand up on the affected leg. She would grab the rods that were implanted in her leg and use the leg as a baseball bat to hit the staff. She needed wrist restraints. Psychiatry was called [facility] but they felt she was not an appropriate patient for them because of her multiple medical needs. She needed neurology, psychiatry, infectious disease, and orthopedics. That stay was also complicated by Campylobacter diarrhea. She was transferred back to [facility] October. 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 Daughter states that mom was discharged to a fdc facility for 8 months. She was on wound care and IV antibiotic care. She continued to have falls, hyper and hypoglycemia. On January 19, 2020 she underwent hardware removal and was placed in a long splint. Transition to a walking cast and was working with physical therapy at [facility]. She was admitted to [facility] March 18, 2020 for overall nursing care of 8 weeks. Readmitted March 22, 2020 for her uncontrolled diabetes and altered mental status. Admitted again March 29 through April 01, 2020. Multiple ER visits for pain, falls, uncontrolled diabetes. Followed by home health until June 2020. Readmitted November 06, 2020 for hypoglycemia. I have spoken to the disability services coordinator today. They have reviewed their encounters with the patient. Is been clear that she has had noncompliance is a problem. Then as they work with her they realize that there is a cognitive deficit that appeared to be severely worsened after her stay with us and at [facility] October 2019. The patient is unable to load her insulin at times. Does not know how to problem solve to find out how the pump is or is not working. Has not checked her sugars to give her self boluses in weeks now. I spoke to her daughter, Liana Yu @ [phone], today who states that mom has never been the same since August 2019. Whereas before that it was just stubbornness, and not wanting to follow through with her diabetes in the past, and abusing her pain pills, now the daughter thinks that mom cannot take care of herself anymore. She hasn't been able to do that since August 2019. And that the cognitive deficits got much worse after that DKA episode from 10/14/19. Daughter is "burned-out." Daughter states that she can no longer take care of mom. She moved out of her mom's apartment because she just could not take it anymore. Her brother still lives there but he has his own issues of substance abuse/heroin. He is trying to get his life straight, to get a job, and the daughter says that her brother cannot take care of mom either. Both of them feel mom should be in a [place] [facility] according to the daughter. With this admission, the patient is unable to correctly load her pump clearly. Can't figure out how to do bolus even with disability services coordinator at the bedside. Review of her data for the pump shows her not to have given herself a bolus for weeks now. Patient herself states that she is lost the strips and does not know where they are. In the past it was that the pump was broken and she could not find the parts. Current Medications - Current Medications Current Medications: Active Medications Acetaminophen (Acetaminophen 325 Mg Tablet) 650 mg PO Q4HR PRN PRN Reason: Pain 1 to 4 Acetaminophen/Butalbital/Caffeine (Butalb/Acetam/Caff 50/325/40mg Tablet) 1 tab PO Q4HR PRN PRN Reason: HEADACHE Last Admin: 02/18/21 20:06 Dose: 1 tab Documented by: Heparin Sodium (Porcine) (Heparin 5,000 Unit/Ml Vial) 5,000 unit SUBQ BID [facility] Last Admin: 02/19/21 10:11 Dose: 5,000 unit Documented by: Morphine Sulfate (Morphine 2 Mg/Ml Carpuject) 2 mg IVP Q2HR PRN PRN Reason: PAIN Last Admin: 02/18/21 03:15 Dose: 2 mg Documented by: Mirabegron [ Myrbetriq] 50 Mg Tab .Er.24h 1 each PO DAILY [facility] Last Admin: 02/19/21 10:14 Dose: Not Given Documented by: Prochlorperazine Edisylate (Prochlorperazine 10 Mg/2 Ml Vial) 10 mg IVP Q6HR PRN PRN Reason: Nausea / Vomiting Last Admin: 02/19/21 12:38 Dose: 10 mg Documented by: Sodium Chloride (Sodium Chloride Flush 0.9% 10 Ml Syringe) 10 ml IVP 0100,0900,1700 [facility] Last Admin: 02/19/21 12:43 Dose: 10 ml Documented by: Sodium Chloride (Sodium Chloride Flush 0.9% 10 Ml Syringe) 10 ml IVP PRN PRN PRN Reason: NEEDED PER PROVIDER ORDERS Last Admin: 02/18/21 22:26 Dose: 10 ml Documented by: Trazodone HCl (Trazodone 50 Mg Tablet) 300 mg PO QPM [facility] Last Admin: 02/18/21 22:25 Dose: 300 mg Documented by: Zolpidem Tartrate (Zolpidem 5 Mg Tablet) 10 mg PO QPM PRN PRN Reason: Insomnia Prazosin HCl 5 mg PO QPM 01/23/19 Trazodone HCl 300 mg PO QPM 01/23/19 Duloxetine HCl [Cymbalta] 60 mg PO BID 09/15/19 Insulin Aspart [Novolog] 30 - 40 units SQ .SLIDING SCALE 03/30/20 Butalb/Acetaminophen/Caffeine [Fioricet 50-300-40 mg Capsule] 1 cap PO Q4H PRN 11/06/20 Escitalopram Oxalate [Lexapro] 20 mg PO BID 11/06/20 Eszopiclone [Lunesta] 3 mg PO QPM PRN 11/06/20 Glucagon,Human Recombinant [Glucagon Emergency Kit] 1 mg IJ PRN PRN 11/06/20 Levothyroxine [Synthroid] 125 mcg PO QDAC 11/06/20 Methocarbamol [Robaxin-750] 750 mg PO Q6H PRN 11/06/20 Metoclopramide [Reglan] 10 mg PO Q6H PRN 11/06/20 Mirabegron [Myrbetriq] 50 mg PO DAILY 11/06/20 Pantoprazole Sodium [Protonix] 20 mg PO QDAC 11/06/20 Simvastatin [Zocor] 20 mg PO QPM 11/06/20 Spironolactone [Aldactone] 100 mg PO DAILY 11/06/20 Objective - Vital Signs/Intake & Output Reviewed Vital Signs: Yes Vital Signs: Vital Signs x48h Temp Pulse Resp BP Pulse Ox 02/19/21 13:00 92 18 122/79 02/19/21 12:00 37.0 C 94 21 137/77 H 95 02/19/21 11:00 93 19 109/77 02/19/21 10:00 37.3 C 92 16 91/65 96 02/19/21 09:00 89 21 101/60 95 02/19/21 08:00 37.0 C 88 21 107/67 95 02/19/21 07:00 79 19 95/59 L Intake & Output: Intake & Output 02/16/21 02/17/21 02/18/21 02/19/21 23:59 23:59 23:59 23:59 Intake Total 651 4388.625 900 Output Total 4100 1450 Balance 651 288.625 -550 - Objective General Appearance: positive: No acute distress, Alert, Other (Her headache and nausea from yesterday have abated) Eyes Bilateral: positive: PERRL, EOMI ENT: positive: No signs of dehydration Neck: positive: No JVD. negative: Stiff neck Respiratory: positive: No respiratory distress. negative: Wheezes, Rales, Rhonchi Cardiovascular: positive: Regular rate & rhythm. negative: Gallop/S4, Friction rub Abdomen: positive: Non-tender, Nml bowel sounds, No distention Skin: positive: Warm, Dry, Pallor Extremities: positive: Non-tender, No pedal edema Neurologic/Psychiatric: positive: CN's nml (2-12), Motor nml, Disoriented to time - Lab Results Fish Bones: 02/19/21 04:05 02/19/21 04:05 Other Labs: Lab Results x24hrs 02/19/21 02/19/21 02/19/21 Range/Units 07:51 04:05 04:05 WBC (4.8-10.8) x10^3/uL RBC (4.20-5.40) 10^6/uL Hgb (12.0-16.0) g/dL Hct (37.0-47.0) % MCV (81.0-99.0) fL MCH (27.0-31.0) pg MCHC (32.0-36.0) g/dL RDW (12.0-15.0) % Plt Count (130-450) 10^3/uL MPV (7.9-10.8) fL Neut # (Auto) (1.5-6.6) 10^3/uL Lymph # (Auto) (1.5-3.5) 10^3/uL Labette # (Auto) (0.0-1.0) 10^3/uL Eos # (Auto) (0.0-0.7) 10^3/uL Baso # (Auto) (0.0-0.1) 10^3/uL Absolute Nucleated RBC x10^3/uL Nucleated RBC % /100WBC Sodium 135 (135-145) mmol/L Potassium 3.7 (3.5-5.0) mmol/L Chloride 101 (101-111) mmol/L Carbon Dioxide 25 (21-32) mmol/L Anion Gap 9.0 (6-13) BUN 8 (6-20) mg/dL Creatinine 0.8 (0.4-1.0) mg/dL Estimated GFR (MDRD) 77 L (>89) Glucose 345 H (70-100) mg/dL POC Whole Bld Glucose 307 H (70 - 100) mg/dL Estimat Average Glucose 315 H (70-100) mg/dL Hemoglobin A1c % 12.6 H (4.27-6.07) % Calcium 8.5 (8.5-10.3) mg/dL 25-OH Vitamin D Total (30-100) ng/mL 02/19/21 02/19/21 02/18/21 Range/Units 04:05 00:01 22:49 WBC 5.4 (4.8-10.8) x10^3/uL RBC 3.87 L (4.20-5.40) 10^6/uL Hgb 9.5 L (12.0-16.0) g/dL Hct 31.8 L (37.0-47.0) % MCV 82.2 (81.0-99.0) fL MCH 24.5 L (27.0-31.0) pg MCHC 29.9 L (32.0-36.0) g/dL RDW 15.7 H (12.0-15.0) % Plt Count 394 (130-450) 10^3/uL MPV 10.7 (7.9-10.8) fL Neut # (Auto) 2.2 (1.5-6.6) 10^3/uL Lymph # (Auto) 2.5 (1.5-3.5) 10^3/uL Labette # (Auto) 0.4 (0.0-1.0) 10^3/uL Eos # (Auto) 0.2 (0.0-0.7) 10^3/uL Baso # (Auto) 0.1 (0.0-0.1) 10^3/uL Absolute Nucleated RBC 0.00 x10^3/uL Nucleated RBC % 0.0 /100WBC Sodium (135-145) mmol/L Potassium (3.5-5.0) mmol/L Chloride (101-111) mmol/L Carbon Dioxide (21-32) mmol/L Anion Gap (6-13) BUN (6-20) mg/dL Creatinine (0.4-1.0) mg/dL Estimated GFR (MDRD) (>89) Glucose 614 H* (70-100) mg/dL POC Whole Bld Glucose 430 H (70 - 100) mg/dL Estimat Average Glucose (70-100) mg/dL Hemoglobin A1c % (4.27-6.07) % Calcium (8.5-10.3) mg/dL 25-OH Vitamin D Total (30-100) ng/mL 02/18/21 Range/Units 04:33 WBC (4.8-10.8) x10^3/uL RBC (4.20-5.40) 10^6/uL Hgb (12.0-16.0) g/dL Hct (37.0-47.0) % MCV (81.0-99.0) fL MCH (27.0-31.0) pg MCHC (32.0-36.0) g/dL RDW (12.0-15.0) % Plt Count (130-450) 10^3/uL MPV (7.9-10.8) fL Neut # (Auto) (1.5-6.6) 10^3/uL Lymph # (Auto) (1.5-3.5) 10^3/uL Labette # (Auto) (0.0-1.0) 10^3/uL Eos # (Auto) (0.0-0.7) 10^3/uL Baso # (Auto) (0.0-0.1) 10^3/uL Absolute Nucleated RBC x10^3/uL Nucleated RBC % /100WBC Sodium (135-145) mmol/L Potassium (3.5-5.0) mmol/L Chloride (101-111) mmol/L Carbon Dioxide (21-32) mmol/L Anion Gap (6-13) BUN (6-20) mg/dL Creatinine (0.4-1.0) mg/dL Estimated GFR (MDRD) (>89) Glucose (70-100) mg/dL POC Whole Bld Glucose (70 - 100) mg/dL Estimat Average Glucose (70-100) mg/dL Hemoglobin A1c % (4.27-6.07) % Calcium (8.5-10.3) mg/dL 25-OH Vitamin D Total 18 L (30-100) ng/mL ABX Reporting Has patient been on IV antibiotics over the past 48 hours?: No Assessment/Plan - Problem List (1) Hyperosmolar non-ketotic state due to type 2 diabetes mellitus Impression: Labs normalized by February 18. We resumed her insulin pump, started her on a clear liquid diet and advanced her to a carb controlled diet. Nutrition has seen her but she is not able to process information very well. Glucose has rebounded to 614 by 8 o'clock last night. And the patient was unable to manage the glucose. Kept her self on a basal rate. This morning she has been 307 and 328. She was then seen by the disability services coordinator. A1c is 12.6%. I have thought about discontinuing the pump altogether and changing the patient over to Lantus. But she has been on a pump for decades. I do not know if she would have the cognitive wherewithal to give her self Lantus after checking her sugars or to give her self short acting insulin before meals with calculation of carb load. She is followed by Dr. Lorenzo, endocrinology. Plan: Probable discharge by tomorrow morning when sugar is controlled or at least below 300 Start process of cognitive evaluation. Son and daughter do not feel they want to be involved and I did explain that sometimes is a guardianship process and the daughter was accepting of that and in fact relief. This patient is at risk of both DKA and hypoglycemia with seizures because of her cognitive deficits. (2) Hyponatremia resolved Conclusion/Plan: The corrected sodium for her degree of hyperglycemia was 132 and was likely hypovolemic hyponatremia. We treated her with IV saline and monitored her BMP cl osely. She is normal this morning. continue to monitor. (3) Acute kidney injury resolved Conclusion/Plan: Creatinine was elevated at 1.6 and her baseline is 0.9. 02/18 she was 1.0. This was likely prerenal due to hypovolemia from her hyperglycemia. We will hydrate her with normal saline and continue to recheck her renal function. Avoid nephrotoxins. Today 0.8 (4) Migraine headache resolved today Conclusion/Plan: She has a known history of migraines in the past and I suspect this is exacerbated due to her hyperglycemia and dehydration. Tylenol and Fioricet are prn for now. She is still miserable this morning but a little better. Given her nausea and vomiting, she is also morphine as needed. We have treated her underlying hyperglycemia and dehydration as mentioned above. Qualifiers: Migraine type: without aura Qualified Code(s): G43.001 - Migraine without aura, not intractable, with status migrainosus (5) Nausea and vomiting resolved Conclusion/Plan: Related to her hyperglycemia and possibly component of gastroparesis and her migraine. Her abdominal exam was unremarkable. Hydrated her with normal saline. Zofran as needed for nausea. We placed her on a clear liquid diet yesterday morning and diet advanced to carb controlled. She still had nausea and vomiting despite treating her migraine and hyperglycemia so I started her on Reglan prn. That was sucessful. (6) Anemia of chronic disease Conclusion/Plan: Based off of her prior iron studies, it appears she is anemia of chronic disease. Her hemoglobin was actually high for her at 10.6. It was suspected she was likely hemoconcentrated given her significant hyperglycemia and likely hypovolemic state. Hemoglobin next morning was 9.9. Today 9.5. Iron studies are normal. No change in meds for this. (7) Hypothyroidism Conclusion/Plan: Her last TSH was elevated with a decreased T4. We rechecked a TSH and it's 4. Normal. Resume usual dose of home Synthroid. (8) Depression Conclusion/Plan: We will continue her home Lexapro and duloxetine. Qualifiers: Depression Type: major depressive disorder
[2021-02-19] MEDS: SODIUM CHLORIDE FLUSH 0.9% 10 ML SYRINGE IVP PRN ×2 (18:54→19:43)
[2021-02-19] MEDS: MORPHINE 2 MG/ML CARPUJECT IVP PRN (19:39)
[2021-02-19] MEDS: diphenhydrAMINE 25 MG CAPSULE PO PRN (21:44)
[2021-02-19] MEDS: traZODone 50 MG TABLET PO SCH (22:15)
[2021-02-20] MEDS: PROCHLORPERAZINE 10 MG/2 ML VIAL IVP PRN (02:13)
[2021-02-20] MEDS: MORPHINE 2 MG/ML CARPUJECT IVP PRN (02:13)
[2021-02-20] MEDS: diphenhydrAMINE 25 MG CAPSULE PO PRN (02:16)
[2021-02-20 04:39] LABS: BASOPHILS # (AUTO) 0.1 10^3/uL (0.0-0.1); BASOPHILS % (AUTO) 0.9 %; EOSINOPHILS # (AUTO) 0.3 10^3/uL (0.0-0.7); EOSINOPHILS % (AUTO) 3.3 %; HCT - HEMATOCRIT 32.1 % (37.0-47.0); HGB - HEMOGLOBIN 9.7 g/dL (12.0-16.0); LYMPHOCYTES # (AUTO) 2.4 10^3/uL (1.5-3.5); LYMPHOCYTES % (AUTO) 30.9 %; MEAN CORPUSCULAR HEMOGLOBIN 24.8 pg (27.0-31.0); MEAN CORPUSCULAR HGB CONC 30.2 g/dL (32.0-36.0); MEAN CORPUSCULAR VOLUME 82.1 fL (81.0-99.0); MEAN PLATELET VOLUME 10.7 fL (7.9-10.8); MONOCYTES # (AUTO) 0.5 10^3/uL (0.0-1.0); MONOCYTES % (AUTO) 6.7 %; NEUTROPHILS # (AUTO) 4.5 10^3/uL (1.5-6.6); NEUTROPHILS % (AUTO) 57.7 %; PLT - PLATELET COUNT 359 10^3/uL (130-450); RED BLOOD COUNT 3.91 10^6/uL (4.20-5.40); RED CELL DISTRIBUTION WIDTH 16.2 % (12.0-15.0); WHITE BLOOD COUNT 7.8 x10^3/uL (4.8-10.8)
[2021-02-20 10:35] VITALS: BP 129/78
--- NOTE | 2021-02-20 12:01 | Discharge Plan ---
Discharge Plan Problem Reviewed?: Yes Disposition: Home, Self Care Condition: Fair Diet: Diabetic Activity Restrictions: Activity as Tolerated Shower Restrictions: No Driving Restrictions: Yes (no driving) Assistance Devices: Walker [facility] Concerns: You were admitted to the hospital with severe elevation of glucose that concentrated your blood so much that it affected the salt levels in your blood work. You were not in DKA. However your ability to speak was also severely affected. You were placed in the ICU and received aggressive intravenous hydration, as well as an insulin drip. You were able to come off the insulin drip and we have been advancing your diet. Your glucose is still quite elevated. Our goal is to have you below 180 on a regular basis. You are consistently in the 300-400 range. You state that you will meet with your claims supervisor in follow-up about this. You have demonstrated that you knew how to give yourself a bolus injection. When reviewed the data on your continuous glucose monitor, you have not been giving yourself bolus injections for weeks. Plan of Treatment: 1. Please make more diligent about controlling your glucose. We think that you have had brain damage ever since you were in the hospital for your broken ankle and your thought processes are not as clear as they could be. That means you are not bolusing your insulin the way you should. Your sugars are more out of control than not. I have advised you that this process is dangerous for you. You could have either a low sugar reaction or have a high sugar reaction that results in ketoacidosis and coma and more brain damage. In the long run, this will also impact longevity of your life span. You may not be able to make the age of 58 if your sugars continue to be uncontrolled. 2. We are asking your supportive employment case manager to evaluate you for possible help in the home. We strongly encourage you to take it if someone can come by her house to cook for you, clean the house a little bit, and help you with your glucose 3. Please see your claims supervisor in the next 1 to 2 weeks 4. Please see your primary care provider in the next 2 to 4 weeks Care Goals: 1. to control your glucose so that your glycosylated hemoglobin is consistently less than 7% 2. To plan for the future when you are no longer able to take care of yourself. Please meet with your supportive employment case manager and social work over the course of the next few months to find out what options are available for you and what can be done to help you plan Assessment: Patient states that she understands the care goals and will try to follow through No Smoking: If you smoke, Please STOP! Call for help. Follow-up with: Isatu Belle MD [Primary Care Provider] - León Lorenzo MD [Physician No Access] -
[2021-02-20] MEDS: HEPARIN 5,000 UNIT/ML VIAL SUBQ SCH (12:20)
[2021-02-20] MEDS: Mirabegron [Myrbetriq] 50 MG Tab.Er.24h PO SCH (12:21)
[2021-02-20] MEDS: SODIUM CHLORIDE FLUSH 0.9% 10 ML SYRINGE IVP SCH (12:21)
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
[2021-02-20] MEDS ORDERED: SODIUM CHLORIDE 0.9% 1,000 ML IV ONE (18:20)
--- OUTSIDE RECORDS SUMMARY | 2021-02-25 21:56 | EXTERNAL MEDICAL SUMMARY RPT | Continuity of Care Document ---
:1975 Demographics Phone Unavailable Preferred Language Unknown Marital Status Unknown Yarsani Affiliation Unknown Race Unknown Ethnic Group Unknown Author Organization [facility] Address [address] [place] [address] Phone Social History date description facility [phone]
== END 2021-02-20 12:50 | disposition home or self-care (01) | DRG 638 ==
LOC: ED 21:19 → ICU 23:25 → MS3 02-19 23:28
PROVIDERS: ADMIT Internal Medicine; ATTEND Specialist
DX: E10.65 Type 1 diabetes mellitus with hyperglycemia (principal); E87.1 Hypo-osmolality and hyponatremia; N17.9 Acute kidney failure, unspecified; G43.909 Migraine, unspecified, not intractable, without status migrainosus; G40.909 Epilepsy, unspecified, not intractable, without status epilepticus; E87.0 Hyperosmolality and hypernatremia; J44.9 Chronic obstructive pulmonary disease, unspecified; R41.82 Altered mental status, unspecified; Z96.41 Presence of insulin pump (external) (internal); F09 Unspecified mental disorder due to known physiological condition; T38.3X6A Underdosing of insulin and oral hypoglycemic [antidiabetic] drugs, initial encounter; G43.001 Migraine without aura, not intractable, with status migrainosus; R11.2 Nausea with vomiting, unspecified; E10.42 Type 1 diabetes mellitus with diabetic polyneuropathy; E10.649 Type 1 diabetes mellitus with hypoglycemia without coma; E03.9 Hypothyroidism, unspecified; F32.9 Major depressive disorder, single episode, unspecified; Z66 Do not resuscitate; F17.290 Nicotine dependence, other tobacco product, uncomplicated; E86.1 Hypovolemia; D63.8 Anemia in other chronic diseases classified elsewhere; E86.0 Dehydration; Z20.822 Contact with and (suspected) exposure to COVID-19
CPT/HCPCS: 36415; 80048; 80053; 82009; 82306; 82607; 82728; 82746; 82947; 83036; 83540; 83690; 83735; 84100; 84443; 84466; 85025; 87150; 87631; 96365; 96375; 97165; 99284; 99285; A9270; J1200; J1815; J7040; 0202U; 82803

== ENCOUNTER 2021-02-20 15:43 | Observation (INO) | payer MEDICARE, MEDICAID ==
[2021-02-20] MEDS ORDERED: SODIUM CHLORIDE 0.9% 1,000 ML IV STA (15:51)
[2021-02-20] MEDS ORDERED: SODIUM CHLORIDE FLUSH 0.9% 10 ML SYRINGE IVP PRN (16:11)
[2021-02-20] MEDS ORDERED: ONDANSETRON 4 MG/2 ML VIAL IVP PRN (16:11)
[2021-02-20] MEDS ORDERED: ONDANSETRON ODT 4 MG TABLET TL PRN (16:11)
[2021-02-20] MEDS ORDERED: ACETAMINOPHEN 325 MG TABLET PO PRN (16:11)
[2021-02-20 16:25] LABS: BILIRUBIN,URINE NEGATIVE (NEGATIVE); CLARITY,URINE CLEAR (CLEAR); GLUCOSE, URINE (UA) >=1000 mg/dL (NEGATIVE); KETONES,URINE (UA) NEGATIVE (NEGATIVE); LEUKOCYTE ESTERASE, URINE NEGATIVE (NEGATIVE); NITRITE,URINE NEGATIVE (NEGATIVE); OCCULT BLOOD,URINE NEGATIVE (NEGATIVE); PH,URINE 5.5 PH (5.0-7.5); PROTEIN,URINE NEGATIVE (NEGATIVE); UROBILINOGEN,URINE 0.2 (NORMAL) E.U./dL (NORMAL)
--- NOTE | 2021-02-20 16:49 | ED Physician Documentation ---
History of Present Illness - Stated complaint Stated Complaint: PATEL,HIGH BLOOD SUGAR - Chief complaint Chief Complaint: General - History obtained from History obtained from: Patient - History of Present Illness Timing: Today Pain level max: 0 Pain level now: 0 - Additonal information Additional information: 45-year-old female presents to the emergency department with hyperglycemia. She states she was discharged from the hospital earlier today, blood sugar was around 300. It was around 600 at home. She states she gave herself 15 units of insulin but her blood sugar has not come down at all. She does use an insulin pump. Nothing makes it better or worse. Complains of a headache. Review of Systems Ten Systems: 10 systems reviewed and negative Constitutional: denies: Fever, Chills Ears: denies: Ear pain Nose: denies: Rhinorrhea / runny nose, Congestion Throat: denies: Sore throat Respiratory: denies: Cough GI: reports: Abdominal Pain (crampy, diffuse), Nausea. denies: Diarrhea : denies: Dysuria, Frequency, Hesitancy Musculoskeletal: denies: Neck pain, Back pain Neurologic: denies: Headache PD PAST MEDICAL HISTORY - Past Medical History Past Medical History: Yes Cardiovascular: High cholesterol, Murmur Respiratory: Pneumonia, Shortness of breath Neuro: Headaches, Migraines, Peripheral neuropathy, Seizure disorder Endocrine/Autoimmune: Type 1 diabetes GI: GERD, GI bleed, Ulcers, Other GLAZE HANDLER: Other : Kidney stones HEENT: Chronic vision loss, Chronic sinusitis Psych: Depression Musculoskeletal: Osteoarthritis, Fibromyalgia, Fatigue, Chronic back pain Derm: None - Past Surgical History Past Surgical History: Yes General: Gastric surgery Ortho: Other /GLAZE HANDLER: section, Endometrial ablation, Tubal ligation HEENT: Tonsil/Adenoidectomy - Present Medications Home Medications: Ambulatory Orders Medication Instructions Recorded Confirmed Prazosin HCl 5 mg PO QPM 01/23/19 02/18/21 Trazodone HCl 300 mg PO QPM 01/23/19 02/18/21 Duloxetine HCl [Cymbalta] 60 mg PO BID 09/15/19 02/18/21 Insulin Aspart [Novolog] 30 - 40 units SQ .SLIDING SCALE 03/30/20 02/18/21 Butalb/Acetaminophen/Caffeine 1 cap PO Q4H PRN 11/06/20 02/18/21 [Fioricet 50-300-40 mg Capsule] Escitalopram Oxalate [Lexapro] 20 mg PO BID 11/06/20 02/18/21 Eszopiclone [Lunesta] 3 mg PO QPM PRN 11/06/20 02/18/21 Glucagon,Human Recombinant 1 mg IJ PRN PRN 11/06/20 02/18/21 [Glucagon Emergency Kit] Levothyroxine [Synthroid] 125 mcg PO QDAC 11/06/20 02/18/21 Methocarbamol [Robaxin-750] 750 mg PO Q6H PRN 11/06/20 02/18/21 Metoclopramide [Reglan] 10 mg PO Q6H PRN 11/06/20 02/18/21 Mirabegron [Myrbetriq] 50 mg PO DAILY 11/06/20 02/18/21 Pantoprazole Sodium [Protonix] 20 mg PO QDAC 11/06/20 02/18/21 Promethazine [Phenergan] 25 mg PO Q6HR PRN #14 tablet 11/06/20 02/18/21 Simvastatin [Zocor] 20 mg PO QPM 11/06/20 02/18/21 Spironolactone [Aldactone] 100 mg PO DAILY 11/06/20 02/18/21 - Allergies Allergies/Adverse Reactions: Allergies Allergy/AdvReac Type Severity Reaction Status Date / Time carisoprodol [From Soma] Allergy Unknown Verified 02/20/21 15:47 divalproex sodium Allergy Rash Verified 02/20/21 15:47 [From Depakote] gabapentin [From Neurontin] Allergy Edema Verified 02/20/21 15:47 lidocaine Allergy Unknown Verified 02/20/21 15:47 nitrofurantoin Allergy Rash Verified 02/20/21 15:47 macrocrystalline * [From Macrodantin] nortriptyline Allergy Unknown Verified 02/20/21 15:47 ondansetron [From Zofran] Allergy Hives Verified 02/20/21 15:47 ondansetron HCl * Allergy Hives Verified 02/20/21 15:47 [From Zofran (as hydrochloride)] pregabalin [From Lyrica] Allergy Headache Verified 02/20/21 15:47 - Social History Does the pt smoke?: No Smoking Status: Never smoker Does the pt drink ETOH?: No Does the pt have substance abuse?: No - Immunizations Immunizations are current?: Yes Immunizations: TDAP >10years/unknown - POLST Patient has POLST: No POLST Status: DNR PD ED PE NORMAL - Vitals Vital signs reviewed: Yes - General General: Alert and oriented X 3, No acute distress - HEENT HEENT: Moist mucous membranes - Neck Neck: Supple, no meningeal sign - Cardiac Cardiac: RRR, Strong equal pulses - Respiratory Respiratory: No respiratory distress, Clear bilaterally - Abdomen Abdomen: Soft, Non tender, Non distended - Back Back: No CVA TTP, No spinal TTP - Derm Derm: Warm and dry - Extremities Extremities: No edema - Neuro Neuro: Alert and oriented X 3 - Psych Psych: Normal mood, Normal affect Results - Vitals Vitals: Vital Signs - 24 hr 02/20/21 02/20/21 15:47 15:54 Temperature 36.6 C 36.6 C Heart Rate 117 H 117 H Respiratory 16 16 Rate Blood Pressure 146/84 H 146/84 H O2 Saturation 98 98 Oxygen O2 Source Room air - Labs Labs: Laboratory Tests 02/20/21 16:07 Urine Color YELLOW Urine Clarity CLEAR Urine pH 5.5 Ur Specific [place] <=1.005 Urine Protein NEGATIVE Urine Glucose (UA) >=1000 H Urine Ketones NEGATIVE Urine Occult Blood NEGATIVE Urine Nitrite NEGATIVE Urine Bilirubin NEGATIVE Urine Urobilinogen 0.2 (NORMAL) Ur Leukocyte Esterase NEGATIVE Ur Microscopic Review NOT INDICATED Urine Culture Comments NOT INDICATED PD MEDICAL DECISION MAKING - ED course Complexity details: considered differential, d/w patient ED course: Patient is a 45-year-old female who presents to the emergency department after being discharged from the hospital earlier today. Her blood sugars back over 600. She has an insulin pump, appears to be working according to the device, she gave herself 15 units of insulin just prior to arrival, therefore no further insulin was given in the emergency department until the insulin drip was started. We will place the patient back in the hospital for better control of her blood sugar. Discussed the case with Dr. Rust, hospitalist who accepts This document was made in part using voice recognition software. While efforts are made to proofread this document, sound alike and grammatical errors may occur. Departure - Departure Disposition: ED Place in Observation Clinical Impression: Hyperglycemia due to diabetes mellitus Condition: Stable Discharge Date/Time: 02/20/21 17:55
[2021-02-20] MEDS ORDERED: DEXTROSE 5%-0.9% NACL 1,000 ML IV SCH (17:00)
[2021-02-20] MEDS ORDERED: SODIUM CHLORIDE 0.9% 1,000 ML IV SCH (17:00)
[2021-02-20] MEDS ORDERED: INSULIN REGULAR HUMAN 100 UNIT in SODIUM CHLORIDE 0.9% 100ML 99 ML IV ONE (17:00)
[2021-02-20 17:28] LABS: BASOPHILS % (AUTO) 0.5 %; EOSINOPHILS # (AUTO) 0.1 10^3/uL (0.0-0.7); EOSINOPHILS % (AUTO) 0.6 %; HCT - HEMATOCRIT 31.8 % (37.0-47.0); HGB - HEMOGLOBIN 9.8 g/dL (12.0-16.0); LYMPHOCYTES # (AUTO) 1.1 10^3/uL (1.5-3.5); LYMPHOCYTES % (AUTO) 12.8 %; MEAN CORPUSCULAR HEMOGLOBIN 25.4 pg (27.0-31.0); MEAN CORPUSCULAR HGB CONC 30.8 g/dL (32.0-36.0); MEAN CORPUSCULAR VOLUME 82.4 fL (81.0-99.0); MEAN PLATELET VOLUME 10.8 fL (7.9-10.8); MONOCYTES # (AUTO) 0.4 10^3/uL (0.0-1.0); MONOCYTES % (AUTO) 4.7 %; NEUTROPHILS # (AUTO) 6.9 10^3/uL (1.5-6.6); PLT - PLATELET COUNT 344 10^3/uL (130-450); RED BLOOD COUNT 3.86 10^6/uL (4.20-5.40); RED CELL DISTRIBUTION WIDTH 16.4 % (12.0-15.0); VBG PCO2 38.5 mmHg (41-51); VBG PH 7.383 (7.31-7.41); WHITE BLOOD COUNT 8.5 x10^3/uL (4.8-10.8)
[2021-02-20 17:29] LABS: VBG BASE EXCESS -2.4 mmol/L (-2 - +2); VBG HCO3 22.4 mmol/L (23-28); VBG OXYGEN SATURATION 55.6 % (60-80); VBG PO2 29.6 mmHg (25-47); VBG TOTAL CO2 23.6 mmol/L (24-29)
[2021-02-20 17:36] LABS: KETONES, SERUM (ACETEST) NEGATIVE (NEGATIVE)
[2021-02-20] MEDS ORDERED: INSULIN REGULAR HUMAN 100 UNIT in SODIUM CHLORIDE 0.9% 100ML 99 ML IV SCH (17:42)
[2021-02-20 17:44] LABS: ALBUMIN 3.6 g/dL (3.2-5.5); ALBUMIN/GLOBULIN RATIO 1.2 (1.0-2.2); ALKALINE PHOSPHATASE 100 IU/L (42-121); ALT ALANINE AMINOTRANSFERASE 17 IU/L (10-60); AST ASPARTATE AMINOTRANSFERASE 13 IU/L (10-42); BILIRUBIN,TOTAL 0.5 mg/dL (0.2-1.0); BUN - BLOOD UREA NITROGEN 12 mg/dL (6-20); CALCIUM 8.4 mg/dL (8.5-10.3); CARBON DIOXIDE - CO2 24 mmol/L (21-32); CHLORIDE 93 mmol/L (101-111); CREATININE 0.9 mg/dL (0.4-1.0); GFR - MDRD 67 (>89); LIPASE 61 U/L (22-51); POTASSIUM 4.4 mmol/L (3.5-5.0); SODIUM 128 mmol/L (135-145); TOTAL PROTEIN 6.6 g/dL (6.7-8.2)
[2021-02-20 17:45] LABS: GLUCOSE 577 mg/dL (70-100)
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
[2021-02-20] MEDS ORDERED: POTASSIUM CHLOR 10 MEQ/100 ML 10 MEQ/100 ML BAG IV ONE ×2 (18:20→22:17)
[2021-02-20] MEDS: oxyCODONE 5 MG TABLET PO PRN ×2 (18:46→22:50)
[2021-02-20] MEDS: SODIUM CHLORIDE FLUSH 0.9% 10 ML SYRINGE IVP SCH ×2 (18:52→22:53)
[2021-02-20 19:13] LABS: MAGNESIUM 2.1 mg/dL (1.7-2.8); PHOSPHORUS 3.5 mg/dL (2.5-4.6)
[2021-02-20 20:50] LABS: CALCIUM 8.8 mg/dL (8.5-10.3); CREATININE 0.8 mg/dL (0.4-1.0); POTASSIUM 3.5 mmol/L (3.5-5.0)
[2021-02-20] MEDS: BUTALB/ACETAM/CAFF 50/325/40MG TABLET PO PRN (22:51)
[2021-02-20] MEDS: PROMETHAZINE 25 MG TABLET PO PRN (22:51)
[2021-02-20] MEDS: traZODone 50 MG TABLET PO SCH (23:03)
[2021-02-21 08:17] LABS: BASOPHILS # (AUTO) 0.1 10^3/uL (0.0-0.1); BASOPHILS % (AUTO) 0.9 %; EOSINOPHILS # (AUTO) 0.3 10^3/uL (0.0-0.7); EOSINOPHILS % (AUTO) 4.8 %; HCT - HEMATOCRIT 31.1 % (37.0-47.0); HGB - HEMOGLOBIN 9.5 g/dL (12.0-16.0); LYMPHOCYTES % (AUTO) 33.8 %; MEAN CORPUSCULAR HEMOGLOBIN 25.2 pg (27.0-31.0); MEAN CORPUSCULAR HGB CONC 30.5 g/dL (32.0-36.0); MEAN CORPUSCULAR VOLUME 82.5 fL (81.0-99.0); MEAN PLATELET VOLUME 10.5 fL (7.9-10.8); MONOCYTES # (AUTO) 0.4 10^3/uL (0.0-1.0); MONOCYTES % (AUTO) 7.2 %; NEUTROPHILS # (AUTO) 3.1 10^3/uL (1.5-6.6); NEUTROPHILS % (AUTO) 52.8 %; PLT - PLATELET COUNT 318 10^3/uL (130-450); RED BLOOD COUNT 3.77 10^6/uL (4.20-5.40); RED CELL DISTRIBUTION WIDTH 17.1 % (12.0-15.0); WHITE BLOOD COUNT 5.8 x10^3/uL (4.8-10.8)
[2021-02-21 08:19] LABS: VBG BASE EXCESS -1.2 mmol/L (-2 - +2); VBG HCO3 22.3 mmol/L (23-28); VBG OXYGEN SATURATION 92.7 % (60-80); VBG PCO2 32.4 mmHg (41-51); VBG PH 7.455 (7.31-7.41); VBG TOTAL CO2 23.3 mmol/L (24-29)
[2021-02-21] MEDS ORDERED: INSULIN ASPART 300 UNIT/3 ML PEN SUBQ ONE ×2 (08:23→17:09)
[2021-02-21 08:24] LABS: CALCIUM 8.4 mg/dL (8.5-10.3); CREATININE 0.8 mg/dL (0.4-1.0)
[2021-02-21] MEDS: PROMETHAZINE 25 MG TABLET PO PRN ×3 (08:39→18:36)
[2021-02-21] MEDS ORDERED: INSULIN GLARGINE 300 UNIT/3 ML PEN SUBQ SCH ×3 (09:00→21:00)
[2021-02-21] MEDS: INSULIN ASPART 300 UNIT/3 ML PEN SUBQ SCH ×6 (09:26→21:14)
[2021-02-21] MEDS: BUTALB/ACETAM/CAFF 50/325/40MG TABLET PO PRN ×3 (12:42→21:22)
[2021-02-21] MEDS: SODIUM CHLORIDE FLUSH 0.9% 10 ML SYRINGE IVP SCH ×2 (12:57→17:28)
--- NOTE | 2021-02-21 14:02 | PHARMACY PROGRESS NOTE ---
- Best Possible Medication History Admit Date and Time: 02/20/21 1611 Processed by: Pharmacy Medication History completed: Yes Patient Interview: Completed Secondary Source(s): Physician records, Pharmacy records, Insurance records (PATIENT INTERVIEWED BY PHARMACY. PATIENT ABLE TO CONFIRM HOME MEDICATIONS ) As the person ultimately responsible for medication therapy, providers are able to order a medication from an existing home medication list in [facility] via the "Reconcile Routine" prior to Confirmation of that medication by medical support specialist. Such practice is discouraged except when the physician, in their clinical judgment, deems that a medical need exists for a medication without regard to previous use.
--- NOTE | 2021-02-21 15:13 | Discharge Plan ---
Discharge Plan Problem Reviewed?: Yes Disposition: Home, Self Care Condition: Stable Prescriptions: Pen Needle, Diabetic [Insulin Pen Needle] 1 each MC BID #150 ndl Insulin Glargine [Lantus Solostar] 20 unit SQ QDAC #3 pe Insulin Regular, Human [Novolin R Flexpen] 5 unit SQ TIDWM #2 pe Diet: Diabetic Activity Restrictions: Activity as Tolerated Shower Restrictions: No Driving Restrictions: Yes (no driving) Assistance Devices: Walker, Cane Instruction Topics: Injection Pens Dc, ED Injection Pen Using Health Concerns: We think that you have loss of ability to calculate and think very clearly ever since you had your last DKA episode associated with an infection of the ankle. As result, you are unable to process the ability to take care of your diabetes very well with your pump. You were here in the hospital with a severely elevated glucose of 1400. You were put on an insulin drip, stabilized, and we resumed your insulin pump. Neck educator saw you. She realized that you had not been bolusing your insulin for several months now. And you were only on your baseline basal infusion. You were reinstructed in how to bolus your insulin. You showed us that you could do that. You were sent home. You returned in 3 hours unable to control your glucose. Your glucose had risen to 600 and you were starting to have a headache again. With this admission your insulin soft set needle insertion from your pump has fallen out. We do not have any replacement parts for your pump. As such we transitioned you to Lantus and short acting insulin before meals. Please stay on the Lantus and short acting insulin with meals until you get to see your director patient accounting. Plan of Treatment: 1. Start Lantus and give it to yourself every morning before breakfast. Please take 25 units before breakfast. We did send a prescription for 20 units a day but by the time of your discharge, we realized that you will need 25 units before breakfast. Take 10 units before bedtime. 2. Give yourself 5 units of short acting Novolin R before each meal. Breakfast, lunch, and dinner. 3. Check your glucose before each meal. On the basis of the glucose, please give yourself a sliding scale Novolin R injection on top of the 5 units you are going to be giving before each meal. A. 840501 equals 3 units B. 455432 equals 4 units C. 572861 equals 5 units D. 222401 equals 6 units. E. 104225 equals 7 units. F. 635043 equals 8 units. G. 608853 equals 9 units. H. 182217 equals 10 units I. 401-425 equals 11 units J. 426-450 equals 12 units If you consistently have a glucose greater than 275, increase your daily Lantus by 1 unit until you get to goal. Care Goals: Your goal glycosylated hemoglobin or A1c is to be less than 7%. Your goal for fasting glucose before eating in the morning is to be less than 125. Your goal for glucose before meals is to be less than 140.. Assessment: We think that you have diminished cognitive function with regards to problem solving and how to take care of your glucose. At this time your pump is not working. In the past your pump is either been broken or you do not have the parts. With this episode the needle has come out. As such we are transpositioning you to injectable insulin and have called in prescriptions to [facility]. While you do not agree with going back to this type of insulin, we cannot help you with the pump today. Our cocoa butter filter operator is not on the premises today. Please sit down and discussed at length the problems you have been having with your director patient accounting. Your son and daughter will both be going to that visit with you No Smoking: If you smoke, Please STOP! Call for help. Follow-up with: Isatu Belle MD [Primary Care Provider] -
[2021-02-21] MEDS: oxyCODONE 5 MG TABLET PO PRN ×2 (18:36→22:29)
[2021-02-21] MEDS: traZODone 50 MG TABLET PO SCH (21:15)
[2021-02-22] MEDS: SODIUM CHLORIDE FLUSH 0.9% 10 ML SYRINGE IVP SCH ×2 (00:13→08:12)
[2021-02-22] MEDS: oxyCODONE 5 MG TABLET PO PRN ×3 (04:42→13:57)
[2021-02-22 06:16] LABS: CREATININE 0.7 mg/dL (0.4-1.0); POTASSIUM 3.7 mmol/L (3.5-5.0)
[2021-02-22] MEDS ORDERED: Eszopiclone [Lunesta] 3 MG Tablet PO PRN (06:55)
[2021-02-22] MEDS ORDERED: INSULIN GLARGINE 300 UNIT/3 ML PEN SUBQ SCH ×2 (08:00)
[2021-02-22] MEDS: INSULIN ASPART 300 UNIT/3 ML PEN SUBQ SCH ×4 (08:02→12:05)
[2021-02-22] MEDS: BUTALB/ACETAM/CAFF 50/325/40MG TABLET PO PRN ×2 (08:12→12:13)
[2021-02-22] MEDS ORDERED: MIRABEGRON 50 MG PO SCH (09:00)
[2021-02-22] MEDS ORDERED: Mirabegron [Myrbetriq] 50 MG PO SCH ×2 (09:00→21:00)
[2021-02-22] MEDS: PROMETHAZINE 25 MG TABLET PO PRN (09:21)
--- NOTE | 2021-02-22 15:15 | DISCHARGE SUMMARY ---
Discharge Summary Admit Date: 02/20/21 Discharge Date: 02/22/21 Discharging Provider: Shyla Rust MD Primary Care Provider: Isatu Belle MD Code Status: Attempt Resuscitation Condition at Discharge: Stable Discharge Disposition: Home, Self Care - DIAGNOSES Discharge Diagnoses with Status of Each Condition: 1. Type 2 diabetes mellitus with hyperglycemia 2. Cognitive deficits 3. Noncompliance with diabetes treatment 4. Depression with anxiety - HPI History of Present Illness: this unfortunate female was just discharged 3 hours ago. She had been here for hyperosmolar nonketosis uncontrolled diabetes. Admitted February 17 put on an insulin drip. She is not always compliant with her use of the insulin pump. There are times when she demonstrates lack of knowledge and lack of ability. Much of this is attributed to cognitive deficits that have been gradual in onset but accelerated, according to the daughter, since an admission for osteomyelitis/trimalleolar fracture/DKA last fall. With today, patient had a cognitive eval of 25/30. We are worried that she will not be able to take care of her self and social work cobbled together in agreement between the patient, patient's daughter, and patient's son. That way the patient could safely go home with care. We had the patient demonstrate to us that she could give herself insulin bolus on the basis of her glucose and her carb intake. She was discharged with a glucose in the 300s. She was promising that she could take care of it. She was discharged at noon. Her sugar started to climb to over 600 while she was at home and gave her self 15 units of insulin. This was giving her headache. So she came back to the emergency room. She is now placed in observation to see if we can bring down her sugars more aggressively. On review of systems there is no fever, chills, cough, sore throat. No abdominal pain. No chest pain. No dysuria, urgency, frequency. This is an interval note for a patient that was just discharged. - Past Medical History Cardiovascular: reports: High cholesterol, Murmur Respiratory: reports: Pneumonia, Shortness of breath Neuro: reports: Headaches, Migraines, Peripheral neuropathy, Seizure disorder Endocrine/Autoimmune: reports: Type 1 diabetes GI: reports: GERD, GI bleed, Ulcers, Other [employer] OFFICIAL: reports: Other : reports: Kidney stones HEENT: reports: Chronic vision loss, Chronic sinusitis Psych: reports: Depression Musculoskeletal: reports: Osteoarthritis, Fibromyalgia, Fatigue, Chronic back pain Derm: reports: None MRSA Hx?: No - HOSPITAL COURSE Hospital Course: We placed her on an insulin drip which brought down her sugars quickly. We then transition her back to her pump and did careful analysis of watching her behavior with the pump to make sure she was bolusing herself. She was unable to figure out how to bolus herself and as such we increased her basal rate. However, after a few hours of that, the needle came out and we have no more sets to reinsert her insulin pump. For the rest of her stay she was transition to Lantus. We ended up on 25 units in the morning and 10 units at night. 5 units before each meal plus sliding scale above the 5 units. We noticed that the patient had poor judgment. At 1 point she was refusing therapy with insulin because "my sugar is too low. When we carefully pointed out that her sugar was 300 on her own glucose monitor and confirmed by our glucose monitor that it was in the 300s she was willing to take her insulin. On the day of discharge she did again. Before lunch she said she did not want to take insulin because her sugar was getting too low. Her sugar was 242. I am very reluctant to send her home without complete support from her family. But unfortunately her son and daughter can only help so much. The patient is also resistant to being placed in a care facility. At this time she does not meet criteria for placement to be paid for by Medicaid or Medicare. She still to functionally independent. However I strongly feel that from a cognitive perspective this woman would not do well. Plan is for her to be discharged with Lantus and the above instructions. I would prefer she do that as opposed to the pump because she just does not bolus herself with the pump. She states that she may go back to the pump. She promises to meet up with her spare parts clerk and her son and daughter will be there. When she sees her primary care provider I strongly recommend neuropsych evaluation. This might give us a more detailed evaluation of reading, writing, and interpretation skills. At discharge temperature is 36.3. Pulse is 99. Blood pressure 117/73. Respirations 20. 96% on room air. She is 5 foot 6 inches tall. 85.5 kg. Morbidly obese middle-aged female who looks much older than stated age. Constant buccal movement of chewing at rest. Nothing in her mouth. Neck is supple. Lungs are clear to auscultation and percussion. PMI is normally placed with a regular rate and rhythm. The abdomen is soft, obese, nontender. She is able to get up on her own without ataxia, walk to the bathroom. Get off the toilet come back to bed. Washes her hands appropriately. After I discharge her, the pharmacy called to tell me that her insurance plan prefers Basaglar. As such Lantus changed to Basaglar. - ALLERGIES Allergies/Adverse Reactions: Allergies Allergy/AdvReac Type Severity Reaction Status Date / Time carisoprodol [From Soma] Allergy Unknown Verified 02/20/21 15:47 divalproex sodium Allergy Rash Verified 02/20/21 15:47 [From Depakote] gabapentin [From Neurontin] Allergy Edema Verified 02/20/21 15:47 lidocaine Allergy Unknown Verified 02/20/21 15:47 nitrofurantoin Allergy Rash Verified 02/20/21 15:47 macrocrystalline * [From Macrodantin] nortriptyline Allergy Unknown Verified 02/20/21 15:47 ondansetron [From Zofran] Allergy Hives Verified 02/20/21 15:47 ondansetron HCl * Allergy Hives Verified 02/20/21 15:47 [From Zofran (as hydrochloride)] pregabalin [From Lyrica] Allergy Headache Verified 02/20/21 15:47 - MEDICATIONS Home Medications: Ambulatory Orders Medication Instructions Recorded Confirmed Prazosin HCl 5 mg PO QPM 01/23/19 02/21/21 Trazodone HCl 300 mg PO QPM 01/23/19 02/21/21 Duloxetine HCl [Cymbalta] 60 mg PO BID 09/15/19 02/21/21 Insulin Aspart [Novolog] 30 - 40 units SQ .SLIDING SCALE 03/30/20 02/21/21 Butalb/Acetaminophen/Caffeine 1 cap PO Q4H PRN 11/06/20 02/21/21 [Fioricet 50-300-40 mg Capsule] Escitalopram Oxalate [Lexapro] 40 mg PO DAILY 11/06/20 02/22/21 Eszopiclone [Lunesta] 3 mg PO QPM PRN 11/06/20 02/21/21 Glucagon,Human Recombinant 1 mg IJ PRN PRN 11/06/20 02/21/21 [Glucagon Emergency Kit] Methocarbamol [Robaxin-750] 750 mg PO Q6H PRN 11/06/20 02/21/21 Metoclopramide [Reglan] 10 mg PO Q6H PRN 11/06/20 02/21/21 Mirabegron [Myrbetriq] 50 mg PO DAILY 11/06/20 02/21/21 Pantoprazole Sodium [Protonix] 20 mg PO QDAC 11/06/20 02/21/21 Promethazine [Phenergan] 25 mg PO Q6HR PRN #14 tablet 11/06/20 02/21/21 Simvastatin [Zocor] 20 mg PO QPM 11/06/20 02/21/21 Spironolactone [Aldactone] 100 mg PO DAILY 11/06/20 02/21/21 Insulin Glargine [Lantus Solostar] 20 unit SQ QDAC #3 pe 02/21/21 Insulin Regular, Human [Novolin R 5 unit SQ TIDWM #2 pe 02/21/21 Flexpen] Levothyroxine [Synthroid] 125 mcg PO DAILY 02/21/21 02/21/21 Pen Needle, Diabetic [Insulin Pen 1 each MC BID #150 ndl 02/21/21 Needle] - LABS Result Diagrams: 02/21/21 08:11 02/22/21 05:25
[2021-02-22 16:07] VITALS: BP 140/73
--- OUTSIDE RECORDS SUMMARY | 2021-02-26 01:14 | EXTERNAL MEDICAL SUMMARY RPT | Continuity of Care Document ---
:1975 Demographics Phone Unavailable Preferred Language Unknown Marital Status Unknown Anglican Affiliation Unknown Race Unknown Ethnic Group Unknown Author Organization [facility] Address [address] [phone] Phone Social History date description facility [phone]
== END 2021-02-22 16:15 | disposition home or self-care (01) ==
LOC: ED 15:43 → ICU 16:11 → OBS 02-21 01:16 → MS2 02-21 18:55
PROVIDERS: ADMIT Specialist; ATTEND Specialist
DX: E11.65 Type 2 diabetes mellitus with hyperglycemia (principal); F41.8 Other specified anxiety disorders; R41.89 Other symptoms and signs involving cognitive functions and awareness; T38.3X6A Underdosing of insulin and oral hypoglycemic [antidiabetic] drugs, initial encounter; Y92.9 Unspecified place or not applicable; R51.9 Headache, unspecified; E11.42 Type 2 diabetes mellitus with diabetic polyneuropathy; Z96.41 Presence of insulin pump (external) (internal); Z79.4 Long term (current) use of insulin; G40.909 Epilepsy, unspecified, not intractable, without status epilepticus; E66.01 Morbid (severe) obesity due to excess calories; Z68.30 Body mass index [BMI] 30.0-30.9, adult; M79.7 Fibromyalgia; G89.29 Other chronic pain; M54.9 Dorsalgia, unspecified; R53.83 Other fatigue; K21.9 Gastro-esophageal reflux disease without esophagitis; E78.00 Pure hypercholesterolemia, unspecified; H54.7 Unspecified visual loss; Z74.2 Need for assistance at home and no other household member able to render care; F17.290 Nicotine dependence, other tobacco product, uncomplicated; Z66 Do not resuscitate; Z79.899 Other long term (current) drug therapy; Z87.11 Personal history of peptic ulcer disease; Z87.442 Personal history of urinary calculi; Z87.01 Personal history of pneumonia (recurrent)
CPT/HCPCS: 36415; 80048; 80053; 81003; 82009; 82803; 83690; 83735; 84100; 85025; 87150; 96361; 96365; 96366; 99284; 99285; A9270; G0378; J1815; Q0169; 81001; 87086

== ENCOUNTER 2021-02-25 | Outpatient (CLI) | payer MEDICARE, MEDICAID | END 2021-02-25 20:46 | disposition EMS.NT | DX: Z76.89 Persons encountering health services in other specified circumstances (principal) ==

== ENCOUNTER 2021-02-27 13:48 | Outpatient (CLI) | payer MEDICARE, MEDICAID | END 2021-02-27 13:49 | disposition EMS.NT | LOC: EMS 13:48 | DX: R73.9 Hyperglycemia, unspecified (principal) ==

== ENCOUNTER 2021-02-28 13:30 | Outpatient (CLI) | payer MEDICARE, MEDICAID | END 2021-02-28 23:59 | disposition home or self-care (01) | LOC: LAB.R 13:30 | PROVIDERS: ATTEND Family Medicine | DX: R35.0 Frequency of micturition (principal) | CPT/HCPCS: 87077; 87086; 87181 ==

== ENCOUNTER 2021-03-01 18:31 | Emergency (ER) | payer MEDICARE, MEDICAID ==
--- OUTSIDE RECORDS SUMMARY | 2021-03-01 18:35 | EXTERNAL MEDICAL SUMMARY RPT | Continuity of Care Document ---
:1975 Demographics Phone Unavailable Preferred Language Unknown Marital Status Unknown Amish Affiliation Unknown Race Unknown Ethnic Group Unknown Author Organization [facility] Address [address] [id number] Phone Social History date description facility [phone]
[2021-03-01] MEDS ORDERED: oxyCODONE 5 MG TABLET PO STA (18:54)
[2021-03-01 19:03] VITALS: BP 141/73
--- NOTE | 2021-03-01 19:15 | ED Physician Documentation ---
History of Present Illness - Stated complaint Stated Complaint: FEMALE - Chief complaint Chief Complaint: Abd Pain - History obtained from History obtained from: Patient - History of Present Illness Timing: Today Pain level max: 2 Pain level now: 2 - Additonal information Additional information: 45-year-old diabetic female presents to the emergency department with urinary retention. She states she is being treated for UTI and started antibiotics yesterday. She states that she has not been able to pee today. Feels a mild urge. No fevers. No chills. No vaginal bleeding or discharge. She is unsure what antibiotic she is on. Review of Systems Ten Systems: 10 systems reviewed and negative Constitutional: denies: Fever, Chills GI: denies: Vomiting, Diarrhea Skin: denies: Rash Musculoskeletal: denies: Neck pain, Back pain PD PAST MEDICAL HISTORY - Past Medical History Past Medical History: Yes Cardiovascular: High cholesterol, Murmur Respiratory: Pneumonia, Shortness of breath Neuro: Headaches, Migraines, Peripheral neuropathy, Seizure disorder Endocrine/Autoimmune: Type 1 diabetes GI: GERD, GI bleed, Ulcers, Other ENGRAVER SEALS: Other : Kidney stones HEENT: Chronic vision loss, Chronic sinusitis Psych: Depression Musculoskeletal: Osteoarthritis, Fibromyalgia, Fatigue, Chronic back pain Derm: None - Past Surgical History Past Surgical History: Yes General: Gastric surgery Ortho: Other /ENGRAVER SEALS: section, Endometrial ablation, Tubal ligation HEENT: Tonsil/Adenoidectomy - Present Medications Home Medications: Ambulatory Orders Medication Instructions Recorded Confirmed Prazosin HCl 5 mg PO QPM 01/23/19 03/01/21 Trazodone HCl 300 mg PO QPM 01/23/19 03/01/21 Duloxetine HCl [Cymbalta] 60 mg PO BID 09/15/19 03/01/21 Insulin Aspart [Novolog] 30 - 40 units SQ .SLIDING SCALE 03/30/20 03/01/21 Butalb/Acetaminophen/Caffeine 1 cap PO Q4H PRN 11/06/20 03/01/21 [Fioricet 50-300-40 mg Capsule] Escitalopram Oxalate [Lexapro] 40 mg PO DAILY 11/06/20 03/01/21 Eszopiclone [Lunesta] 3 mg PO QPM PRN 11/06/20 03/01/21 Glucagon,Human Recombinant 1 mg IJ PRN PRN 11/06/20 03/01/21 [Glucagon Emergency Kit] Methocarbamol [Robaxin-750] 750 mg PO Q6H PRN 11/06/20 03/01/21 Metoclopramide [Reglan] 10 mg PO Q6H PRN 11/06/20 03/01/21 Mirabegron [Myrbetriq] 50 mg PO DAILY 11/06/20 03/01/21 Pantoprazole Sodium [Protonix] 20 mg PO QDAC 11/06/20 03/01/21 Promethazine [Phenergan] 25 mg PO Q6HR PRN #14 tablet 11/06/20 03/01/21 Simvastatin [Zocor] 20 mg PO QPM 11/06/20 03/01/21 Spironolactone [Aldactone] 100 mg PO DAILY 11/06/20 03/01/21 Insulin Glargine [Lantus Solostar] 20 unit SQ QDAC #3 pe 02/21/21 03/01/21 Insulin Regular, Human [Novolin R 5 unit SQ TIDWM #2 pe 02/21/21 03/01/21 Flexpen] Levothyroxine [Synthroid] 125 mcg PO DAILY 02/21/21 03/01/21 Pen Needle, Diabetic [Insulin Pen 1 each MC BID #150 ndl 02/21/21 03/01/21 Needle] - Allergies Allergies/Adverse Reactions: Allergies Allergy/AdvReac Type Severity Reaction Status Date / Time carisoprodol [From Soma] Allergy Unknown Verified 03/01/21 18:33 divalproex sodium Allergy Rash Verified 03/01/21 18:33 [From Depakote] gabapentin [From Neurontin] Allergy Edema Verified 03/01/21 18:33 lidocaine Allergy Unknown Verified 03/01/21 18:33 nitrofurantoin Allergy Rash Verified 03/01/21 18:33 macrocrystalline * [From Macrodantin] nortriptyline Allergy Unknown Verified 03/01/21 18:33 ondansetron [From Zofran] Allergy Hives Verified 03/01/21 18:33 ondansetron HCl * Allergy Hives Verified 03/01/21 18:33 [From Zofran (as hydrochloride)] pregabalin [From Lyrica] Allergy Headache Verified 03/01/21 18:33 - Social History Does the pt smoke?: No Smoking Status: Never smoker Does the pt drink ETOH?: No Does the pt have substance abuse?: No - Immunizations Immunizations are current?: Yes Immunizations: TDAP >10years/unknown - POLST Patient has POLST: No POLST Status: DNR PD ED PE NORMAL - Vitals Vital signs reviewed: Yes - General General: Alert and oriented X 3, No acute distress - HEENT HEENT: Moist mucous membranes - Neck Neck: Supple, no meningeal sign - Cardiac Cardiac: Strong equal pulses - Respiratory Respiratory: No respiratory distress, Clear bilaterally - Abdomen Abdomen: Soft, Non tender, Non distended - Back Back: No CVA TTP - Derm Derm: Warm and dry - Neuro Neuro: Alert and oriented X 3 - Psych Psych: Normal mood, Normal affect Results - Vitals Vitals: Vital Signs - 24 hr 03/01/21 03/01/21 18:33 19:02 Temperature 36.8 C 36.8 C Heart Rate 90 87 Respiratory 16 20 Rate Blood Pressure 134/67 H 141/73 H O2 Saturation 98 98 Oxygen O2 Source Room air PD MEDICAL DECISION MAKING - ED course Complexity details: considered differential, d/w patient ED course: Patient with mild urinary retention, 550 mL in the bladder on bladder scan. Patient does not want a catheter and to go home with. Therefore the bladder was drained in the emergency department. She states that if she is having dif ficulty urinating still later, she will return for catheter placement. We will have her continue her antibiotic at home and await her urine culture. Patient counseled regarding signs and symptoms for which I believe and urgent re- evaluation would be necessary. Patient with good understanding of and agreement to plan and is comfortable going home at this time This document was made in part using voice recognition software. While efforts are made to proofread this document, sound alike and grammatical errors may occur. Patient was given a dose of oxycodone here for her chronic back pain. She states she takes oxycodone at home. Departure - Departure Disposition: 01 Home, Self Care Clinical Impression: Urinary retention UTI (urinary tract infection) Qualifiers: Urinary tract infection type: acute cystitis Hematuria presence: without hematuria Qualified Code(s): N30.00 - Acute cystitis without hematuria Condition: Good Instructions: ED UTI Cystitis Female Follow-Up: Isatu Belle MD [Primary Care Provider] - Within 1 week Comments: Continue the antibiotics as previously prescribed by your doctor. Your bladder was drained today. As the infection clears, this should improve. You have declined a catheter at this time. If you are having difficulty urinating, you will need to return to the emergency department and have a catheter inserted until the infection clears. Your urine culture is not back yet. Return if you worsen
--- OUTSIDE RECORDS SUMMARY | 2021-03-01 19:29 | EXTERNAL MEDICAL SUMMARY RPT | Continuity of Care Document ---
:1975 Demographics Phone Unavailable Preferred Language Unknown Marital Status Unknown Rastafarian Affiliation Unknown Race Unknown Ethnic Group Unknown Author Organization [facility] Address [address] [phone] Phone Social History date description facility [phone]
== END 2021-03-01 19:39 | disposition home or self-care (01) ==
LOC: ED 18:31
DX: R33.9 Retention of urine, unspecified (principal); N30.00 Acute cystitis without hematuria; E10.42 Type 1 diabetes mellitus with diabetic polyneuropathy; Z79.4 Long term (current) use of insulin; Z66 Do not resuscitate
CPT/HCPCS: 51701; 51798; 99283; A9270

== ENCOUNTER 2021-03-02 12:38 | Emergency (ER) | payer MEDICARE, MEDICAID ==
--- OUTSIDE RECORDS SUMMARY | 2021-03-02 12:42 | EXTERNAL MEDICAL SUMMARY RPT | Continuity of Care Document ---
:1975 Demographics Phone Unavailable Preferred Language Unknown Marital Status Unknown Gnosticism Affiliation Unknown Race Unknown Ethnic Group Unknown Author Organization [facility] Address [address] [phone] Phone Social History date description facility [phone]
--- OUTSIDE RECORDS SUMMARY | 2021-03-02 12:52 | EXTERNAL MEDICAL SUMMARY RPT | Continuity of Care Document ---
:1975 Demographics Phone Unavailable Preferred Language Unknown Marital Status Unknown Lutheran Affiliation Unknown Race Unknown Ethnic Group Unknown Author Organization [facility] Address [address] [phone] Phone Social History date description facility [phone]
--- NOTE | 2021-03-02 13:43 | ED Physician Documentation ---
History of Present Illness - Stated complaint Stated Complaint: FEMALE - Chief complaint Chief Complaint: Abd Pain - History obtained from History obtained from: Patient - Additonal information Additional information: Patient comes emergency department chief complaint of urinary retention. Patient was seen here yesterday for the same in the setting of UTI for which she is taking antibiotics. In and out cath was performed at that time as patient did not desire to have a Valdez catheter left in place. Patient states that she was not able to urinate afterward and that she is having lower abdominal and back pain. No fevers or chills. No nausea or vomiting. No other complaints at this time Review of Systems Ten Systems: 10 systems reviewed and negative Constitutional: reports: Reviewed and negative Eyes: reports: Reviewed and negative Ears: reports: Reviewed and negative Nose: reports: Reviewed and negative Throat: reports: Reviewed and negative Cardiac: reports: Reviewed and negative Respiratory: reports: Reviewed and negative GI: reports: Abdominal Pain (Crampy, suprapubic) : reports: Unable to Void Skin: reports: Reviewed and negative Musculoskeletal: reports: Back pain Neurologic: reports: Reviewed and negative Psychiatric: reports: Reviewed and negative Endocrine: reports: Reviewed and negative Immunocompromised: reports: Reviewed and negative PD PAST MEDICAL HISTORY - Past Medical History Past Medical History: Yes Cardiovascular: High cholesterol, Murmur Respiratory: Pneumonia, Shortness of breath Neuro: Headaches, Migraines, Peripheral neuropathy, Seizure disorder Endocrine/Autoimmune: Type 1 diabetes GI: GERD, GI bleed, Ulcers, Other [employer] HCM DEVELOPER: Other : Kidney stones HEENT: Chronic vision loss, Chronic sinusitis Psych: Depression Musculoskeletal: Osteoarthritis, Fibromyalgia, Fatigue, Chronic back pain Derm: None - Past Surgical History Past Surgical History: Yes General: Gastric surgery Ortho: Other /PEOPLESOFT HCM DEVELOPER: section, Endometrial ablation, Tubal ligation HEENT: Tonsil/Adenoidectomy - Present Medications Home Medications: Ambulatory Orders Medication Instructions Recorded Confirmed Prazosin HCl 5 mg PO QPM 01/23/19 03/02/21 Trazodone HCl 300 mg PO QPM 01/23/19 03/02/21 Duloxetine HCl [Cymbalta] 60 mg PO BID 09/15/19 03/02/21 Insulin Aspart [Novolog] 30 - 40 units SQ .SLIDING SCALE 03/30/20 03/02/21 Butalb/Acetaminophen/Caffeine 1 cap PO Q4H PRN 11/06/20 03/02/21 [Fioricet 50-300-40 mg Capsule] Escitalopram Oxalate [Lexapro] 40 mg PO DAILY 11/06/20 03/02/21 Eszopiclone [Lunesta] 3 mg PO QPM PRN 11/06/20 03/02/21 Glucagon,Human Recombinant 1 mg IJ PRN PRN 11/06/20 03/02/21 [Glucagon Emergency Kit] Methocarbamol [Robaxin-750] 750 mg PO Q6H PRN 11/06/20 03/02/21 Metoclopramide [Reglan] 10 mg PO Q6H PRN 11/06/20 03/02/21 Mirabegron [Myrbetriq] 50 mg PO DAILY 11/06/20 03/02/21 Pantoprazole Sodium [Protonix] 20 mg PO QDAC 11/06/20 03/02/21 Promethazine [Phenergan] 25 mg PO Q6HR PRN #14 tablet 11/06/20 03/02/21 Simvastatin [Zocor] 20 mg PO QPM 11/06/20 03/02/21 Spironolactone [Aldactone] 100 mg PO DAILY 11/06/20 03/02/21 Insulin Glargine [Lantus Solostar] 20 unit SQ QDAC #3 pe 02/21/21 03/02/21 Insulin Regular, Human [Novolin R 5 unit SQ TIDWM #2 pe 02/21/21 03/02/21 Flexpen] Levothyroxine [Synthroid] 125 mcg PO DAILY 02/21/21 03/02/21 Pen Needle, Diabetic [Insulin Pen 1 each MC BID #150 ndl 02/21/21 03/02/21 Needle] - Allergies Allergies/Adverse Reactions: Allergies Allergy/AdvReac Type Severity Reaction Status Date / Time carisoprodol [From Soma] Allergy Unknown Verified 03/02/21 12:45 divalproex sodium Allergy Rash Verified 03/02/21 12:45 [From Depakote] gabapentin [From Neurontin] Allergy Edema Verified 03/02/21 12:45 lidocaine Allergy Unknown Verified 03/02/21 12:45 nitrofurantoin Allergy Rash Verified 03/02/21 12:45 macrocrystalline * [From Macrodantin] nortriptyline Allergy Unknown Verified 03/02/21 12:45 ondansetron [From Zofran] Allergy Hives Verified 03/02/21 12:45 ondansetron HCl * Allergy Hives Verified 03/02/21 12:45 [From Zofran (as hydrochloride)] pregabalin [From Lyrica] Allergy Headache Verified 03/02/21 12:45 - Social History Does the pt smoke?: No Smoking Status: Never smoker Does the pt drink ETOH?: No Does the pt have substance abuse?: No - Immunizations Immunizations are current?: Yes Immunizations: TDAP >10years/unknown - POLST Patient has POLST: No POLST Status: DNR PD ED PE NORMAL - Vitals Vital signs reviewed: Yes - General General: Alert and oriented X 3, No acute distress - HEENT HEENT: PERRL - Neck Neck: Supple, no meningeal sign - Cardiac Cardiac: RRR, No murmur, Strong equal pulses - Respiratory Respiratory: No respiratory distress, Clear bilaterally - Abdomen Abdomen: Soft, Non tender, Non distended - Back Back: No CVA TTP - Derm Derm: Normal color, Warm and dry, No rash - Extremities Extremities: No deformity - Neuro Neuro: Alert and oriented X 3 - Psych Psych: Normal mood, Normal affect Results - Vitals Vitals: Vital Signs - 24 hr 03/02/21 03/02/21 03/02/21 12:45 13:09 14:24 Temperature 36.3 C L 36.4 C L Heart Rate 97 83 84 Respiratory 18 18 17 Rate Blood Pressure 118/68 141/77 H 127/80 O2 Saturation 98 97 97 Oxygen O2 Source Room air PD MEDICAL DECISION MAKING - ED course Complexity details: reviewed results, re-evaluated patient, considered differential, d/w patient ED course: Bladder scan was performed and showed about 500 cc of urine in the patient's bladder. At this point in time she was agreeable to a Valdez catheter and this was placed. Output was actually 1100 cc of urine. Urometer was attached and patient was given instructions to follow-up with either her primary care physician or urology in the next few days. We discussed home management of symptoms, as well as the usual indications for return. Patient understands that she is to continue her antibiotics as directed until the course is complete. Departure - Departure Disposition: 01 Home, Self Care Clinical Impression: Urinary retention Condition: Stable Instructions: ED Catheter Care Valdez, ED Retention Urinary Female Follow-Up: Steffi Urbina MD [Physician No Access] - Comments: Please follow-up with either your primary doctor or urologist, as recommended in the next few days to reevaluate whether the catheter should still be kept in place. Continue antibiotics as directed. Discharge Date/Time: 03/02/21 14:38
[2021-03-02] MEDS ORDERED: oxyCODONE 5 MG TABLET PO STA (14:02)
[2021-03-02 14:26] VITALS: BP 127/80
== END 2021-03-02 14:38 | disposition home or self-care (01) ==
LOC: ED 12:38
DX: R33.9 Retention of urine, unspecified (principal); E10.42 Type 1 diabetes mellitus with diabetic polyneuropathy; Z79.4 Long term (current) use of insulin; Z66 Do not resuscitate
CPT/HCPCS: 51702; 51798; 99282; 99283; A9270

== ENCOUNTER 2021-03-08 12:33 | Emergency (ER) | payer MEDICARE, MEDICAID ==
--- OUTSIDE RECORDS SUMMARY | 2021-03-08 12:36 | EXTERNAL MEDICAL SUMMARY RPT | Continuity of Care Document ---
:1975 Demographics Phone Unavailable Preferred Language Unknown Marital Status Unknown Church Affiliation Unknown Race Unknown Ethnic Group Unknown Author Organization [facility] Address [address] [phone] Phone Social History date description facility [phone]
--- OUTSIDE RECORDS SUMMARY | 2021-03-08 12:58 | EXTERNAL MEDICAL SUMMARY RPT | Continuity of Care Document ---
:1975 Demographics Phone Unavailable Preferred Language Unknown Marital Status Unknown Hinduism Affiliation Unknown Race Unknown Ethnic Group Unknown Author Organization [facility] Address [address] [phone] Phone Social History date description facility [phone]
[2021-03-08] MEDS ORDERED: HALOPERIDOL 5 MG/ML VIAL IVP ONE (12:59)
[2021-03-08] MEDS ORDERED: INSULIN REGULAR HUMAN 100 UNIT/1 ML 10 ML MDV IVP STA ×2 (12:59→14:18)
[2021-03-08] MEDS ORDERED: SODIUM CHLORIDE 0.9% 1,000 ML IV STA (12:59)
--- NOTE | 2021-03-08 13:01 | ED Physician Documentation ---
History of Present Illness - Stated complaint Stated Complaint: HEAD PX/NAUSEA - Chief complaint Chief Complaint: General - History obtained from History obtained from: Patient - Additonal information Additional information: 45-year-old woman with history of brittle diabetes presents for evaluation of migraine headache. States she gets frequent headaches, especially lately. Current headache started yesterday. She was seen at walk-in clinic and administered Toradol without relief. Its a posterior headache associated with nausea and light sensitivity. It is similar to prior migraines. She states that she knows her blood sugars been high lately. She was started on a new insulin regimen by her receiving teller. Current regimen is 20 units of Lantus in the morning, 10 units at night. Then she takes 6 units of Novolin as needed if her blood sugars greater than 400. 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: Other : Kidney stones HEENT: Chronic vision loss, Chronic sinusitis Psych: Depression Musculoskeletal: Osteoarthritis, Fibromyalgia, Fatigue, Chronic back pain Derm: None - Past Surgical History Past Surgical History: Yes General: Gastric surgery Ortho: Other /HEBREW CANTOR: section, Endometrial ablation, Tubal ligation HEENT: Tonsil/Adenoidectomy - Present Medications Home Medications: Ambulatory Orders Medication Instructions Recorded Confirmed Prazosin HCl 5 mg PO QPM 01/23/19 03/02/21 Trazodone HCl 300 mg PO QPM 01/23/19 03/02/21 Duloxetine HCl [Cymbalta] 60 mg PO BID 09/15/19 03/02/21 Insulin Aspart [Novolog] 30 - 40 units SQ .SLIDING SCALE 03/30/20 03/02/21 Butalb/Acetaminophen/Caffeine 1 cap PO Q4H PRN 11/06/20 03/02/21 [Fioricet 50-300-40 mg Capsule] Escitalopram Oxalate [Lexapro] 40 mg PO DAILY 11/06/20 03/02/21 Eszopiclone [Lunesta] 3 mg PO QPM PRN 11/06/20 03/02/21 Glucagon,Human Recombinant 1 mg IJ PRN PRN 11/06/20 03/02/21 [Glucagon Emergency Kit] Methocarbamol [Robaxin-750] 750 mg PO Q6H PRN 11/06/20 03/02/21 Metoclopramide [Reglan] 10 mg PO Q6H PRN 11/06/20 03/02/21 Mirabegron [Myrbetriq] 50 mg PO DAILY 11/06/20 03/02/21 Pantoprazole Sodium [Protonix] 20 mg PO QDAC 11/06/20 03/02/21 Promethazine [Phenergan] 25 mg PO Q6HR PRN #14 tablet 11/06/20 03/02/21 Simvastatin [Zocor] 20 mg PO QPM 11/06/20 03/02/21 Spironolactone [Aldactone] 100 mg PO DAILY 11/06/20 03/02/21 Insulin Glargine [Lantus Solostar] 20 unit SQ QDAC #3 pe 02/21/21 03/02/21 Insulin Regular, Human [Novolin R 5 unit SQ TIDWM #2 pe 02/21/21 03/02/21 Flexpen] Levothyroxine [Synthroid] 125 mcg PO DAILY 02/21/21 03/02/21 Pen Needle, Diabetic [Insulin Pen 1 each MC BID #150 ndl 02/21/21 03/02/21 Needle] Sulfamethox/Trimeth 800/160 1 tab PO BID 03/08/21 03/08/21 [Bactrim Ds] - Allergies Allergies/Adverse Reactions: Allergies Allergy/AdvReac Type Severity Reaction Status Date / Time carisoprodol [From Soma] Allergy Unknown Verified 03/08/21 12:49 divalproex sodium Allergy Rash Verified 03/08/21 12:49 [From Depakote] gabapentin [From Neurontin] Allergy Edema Verified 03/08/21 12:49 lidocaine Allergy Unknown Verified 03/08/21 12:49 nitrofurantoin Allergy Rash Verified 03/08/21 12:49 macrocrystalline * [From Macrodantin] nortriptyline Allergy Unknown Verified 03/08/21 12:49 ondansetron [From Zofran] Allergy Hives Verified 03/08/21 12:49 ondansetron HCl * Allergy Hives Verified 03/08/21 12:49 [From Zofran (as hydrochloride)] pregabalin [From Lyrica] Allergy Headache Verified 03/08/21 12:49 - Social History Does the pt smoke?: No Smoking Status: Never smoker Does the pt drink ETOH?: No Does the pt have substance abuse?: No - Immunizations Immunizations are current?: Yes Immunizations: TDAP >10years/unknown - POLST Patient has POLST: No POLST Status: DNR PD ED PE NORMAL - Vitals Vital signs reviewed: Yes - General General: Alert and oriented X 3, No acute distress - HEENT HEENT: PERRL, EOMI - Neck Neck: Supple, no meningeal sign, No bony TTP - Neuro Neuro: Alert and oriented X 3, polisher brass 2-12 intact, No motor deficit, No sensory deficit, Normal speech Results - Vitals Vitals: Vital Signs - 24 hr 03/08/21 03/08/21 03/08/21 12:51 12:53 13:23 Temperature 36.9 C 36.9 C 36.9 C Heart Rate 117 H 109 H 111 H Respiratory 22 18 23 Rate Blood Pressure 136/80 H 134/81 H 156/80 H O2 Saturation 96 95 95 03/08/21 03/08/21 03/08/21 13:30 14:00 14:30 Temperature 36.9 C 36.5 C 36.5 C Heart Rate 108 H 110 H 109 H Respiratory 23 22 24 Rate Blood Pressure 156/80 H 126/111 H 131/74 H O2 Saturation 95 96 96 03/08/21 03/08/21 15:00 15:30 Temperature 36.5 C 36.6 C Heart Rate 107 H 102 H Respiratory 26 H 21 Rate Blood Pressure 132/82 H 127/78 O2 Saturation 96 96 Oxygen O2 Source Room air - Labs Labs: Laboratory Tests 03/08/21 03/08/21 03/08/21 13:19 13:19 13:19 WBC 7.1 RBC 3.85 L Hgb 9.3 L Hct 31.1 L MCV 80.8 L MCH 24.2 L MCHC 29.9 L RDW 17.4 H Plt Count 467 H MPV 10.1 Neut # (Auto) 5.0 Lymph # (Auto) 1.2 L [place] # (Auto) 0.6 Eos # (Auto) 0.3 Baso # (Auto) 0.1 Absolute Nucleated RBC 0.00 Nucleated RBC % 0.0 VBG pH 7.427 H VBG pCO2 39.1 L VBG pO2 58.8 H VBG HCO3 25.2 VBG Total CO2 26.4 VBG O2 Saturation 89.2 H VBG Base Excess 0.8 Sodium 128 L Potassium 4.3 Chloride 93 L Carbon Dioxide 22 Anion Gap 13.0 BUN 15 Creatinine 1.0 Estimated GFR (MDRD) 59 L Glucose 568 H* POC Whole Bld Glucose Calcium 8.6 Magnesium 2.2 Serum Ketones NEGATIVE 03/08/21 03/08/21 14:11 15:02 WBC RBC Hgb Hct MCV MCH MCHC RDW Plt Count MPV Neut # (Auto) Lymph # (Auto) [place] # (Auto) Eos # (Auto) Baso # (Auto) Absolute Nucleated RBC Nucleated RBC % VBG pH VBG pCO2 VBG pO2 VBG HCO3 VBG Total CO2 VBG O2 Saturation VBG Base Excess Sodium Potassium Chloride Carbon Dioxide Anion Gap BUN Creatinine Estimated GFR (MDRD) Glucose POC Whole Bld Glucose 387 H 162 H Calcium Magnesium Serum Ketones Procedures - General procedure General procedure: She was difficult for IV access, 2 nurses had tried and failed. I personally placed a long 22-gauge IV in the left deep brachial vein using real-time ultrasound guidance which flushed and beau well. PD MEDICAL DECISION MAKING - ED course ED course: 45-year-old woman with brittle diabetes presents with headache and also hyperglycemia. Hyperglycemia was treated with IV fluids and divided doses of insulin with excellent improvement in her fingerstick blood sugars. Headache was treated with a variety of medications with eventual improvement. No evidence of subarachnoid hemorrhage or meningitis. Departure - Departure Disposition: 01 Home, Self Care Clinical Impression: Migraine headache Qualifiers: Migraine type: with aura Status migrainosus presence: with status migrainosus Intractability: intractable Qualified Code(s): G43.111 - Migraine with aura, intractable, with status migrainosus Diabetes mellitus with hyperglycemia Qualifiers: Diabetes mellitus type: type 1 Qualified Code(s): E10.65 - Type 1 diabetes mellitus with hyperglycemia Condition: Stable Record reviewed to determine appropriate education?: Yes Instructions: ED Hyperglycemia Diabetic, ED Headache Migraine Comments: Return if you worsen, follow-up with your receiving teller as scheduled for improved blood sugar control.
[2021-03-08 13:31] LABS: VBG BASE EXCESS 0.8 mmol/L (-2 - +2); VBG HCO3 25.2 mmol/L (23-28); VBG OXYGEN SATURATION 89.2 % (60-80); VBG PCO2 39.1 mmHg (41-51); VBG PH 7.427 (7.31-7.41); VBG PO2 58.8 mmHg (25-47); VBG TOTAL CO2 26.4 mmol/L (24-29)
[2021-03-08 13:41] LABS: BASOPHILS # (AUTO) 0.1 10^3/uL (0.0-0.1); EOSINOPHILS # (AUTO) 0.3 10^3/uL (0.0-0.7); EOSINOPHILS % (AUTO) 4.4 %; HCT - HEMATOCRIT 31.1 % (37.0-47.0); HGB - HEMOGLOBIN 9.3 g/dL (12.0-16.0); LYMPHOCYTES # (AUTO) 1.2 10^3/uL (1.5-3.5); LYMPHOCYTES % (AUTO) 16.6 %; MEAN CORPUSCULAR HEMOGLOBIN 24.2 pg (27.0-31.0); MEAN CORPUSCULAR HGB CONC 29.9 g/dL (32.0-36.0); MEAN CORPUSCULAR VOLUME 80.8 fL (81.0-99.0); MEAN PLATELET VOLUME 10.1 fL (7.9-10.8); MONOCYTES # (AUTO) 0.6 10^3/uL (0.0-1.0); MONOCYTES % (AUTO) 7.7 %; NEUTROPHILS % (AUTO) 69.6 %; PLT - PLATELET COUNT 467 10^3/uL (130-450); RED BLOOD COUNT 3.85 10^6/uL (4.20-5.40); RED CELL DISTRIBUTION WIDTH 17.4 % (12.0-15.0); WHITE BLOOD COUNT 7.1 x10^3/uL (4.8-10.8)
[2021-03-08 13:49] LABS: KETONES, SERUM (ACETEST) NEGATIVE (NEGATIVE)
[2021-03-08] MEDS ORDERED: METOCLOPRAMIDE 10 MG/2 ML VIAL IVP STA (14:02)
[2021-03-08 14:14] LABS: BUN - BLOOD UREA NITROGEN 15 mg/dL (6-20); CALCIUM 8.6 mg/dL (8.5-10.3); CARBON DIOXIDE - CO2 22 mmol/L (21-32); CHLORIDE 93 mmol/L (101-111); GFR - MDRD 59 (>89); MAGNESIUM 2.2 mg/dL (1.7-2.8); POTASSIUM 4.3 mmol/L (3.5-5.0); SODIUM 128 mmol/L (135-145)
[2021-03-08 14:16] LABS: GLUCOSE 568 mg/dL (70-100)
[2021-03-08] MEDS ORDERED: KETOROLAC 15 MG/ML VIAL IVP STA (14:40)
[2021-03-08] MEDS ORDERED: ACETAMINOPHEN 325 MG TABLET PO STA (14:40)
[2021-03-08] MEDS ORDERED: oxyCODONE 5 MG TABLET PO STA (15:03)
[2021-03-08 15:34] VITALS: BP 127/78
== END 2021-03-08 15:49 | disposition home or self-care (01) ==
LOC: ED 12:33
DX: G43.111 Migraine with aura, intractable, with status migrainosus (principal); E10.65 Type 1 diabetes mellitus with hyperglycemia; E10.42 Type 1 diabetes mellitus with diabetic polyneuropathy; Z79.4 Long term (current) use of insulin
CPT/HCPCS: 36415; 80048; 82009; 82803; 83735; 85025; 96374; 96375; 99283; A9270; J1815; J2765

== ENCOUNTER 2021-03-10 20:21 | Outpatient (CLI) | payer MEDICARE, MEDICAID | END 2021-03-10 20:22 | disposition critical access hospital (66) | LOC: EMS 20:21 | DX: R42 Dizziness and giddiness (principal) | CPT/HCPCS: A0425; A0427 ==

== ENCOUNTER 2021-03-10 20:40 | Emergency (ER) | payer MEDICARE, MEDICAID ==
[2021-03-10] MEDS ORDERED: SODIUM CHLORIDE 0.9% 1,000 ML IV STA (20:51)
[2021-03-10] MEDS ORDERED: INSULIN REGULAR HUMAN 100 UNIT/1 ML 10 ML MDV IVP STA (20:51)
[2021-03-10 20:57] LABS: BASOPHILS % (AUTO) 0.6 %; EOSINOPHILS # (AUTO) 0.4 10^3/uL (0.0-0.7); EOSINOPHILS % (AUTO) 5.5 %; HCT - HEMATOCRIT 29.9 % (37.0-47.0); HGB - HEMOGLOBIN 8.7 g/dL (12.0-16.0); LYMPHOCYTES # (AUTO) 1.7 10^3/uL (1.5-3.5); LYMPHOCYTES % (AUTO) 26.4 %; MEAN CORPUSCULAR HEMOGLOBIN 24.4 pg (27.0-31.0); MEAN CORPUSCULAR HGB CONC 29.1 g/dL (32.0-36.0); MEAN CORPUSCULAR VOLUME 83.8 fL (81.0-99.0); MEAN PLATELET VOLUME 9.4 fL (7.9-10.8); MONOCYTES # (AUTO) 0.5 10^3/uL (0.0-1.0); MONOCYTES % (AUTO) 7.4 %; NEUTROPHILS # (AUTO) 3.8 10^3/uL (1.5-6.6); NEUTROPHILS % (AUTO) 58.8 %; PLT - PLATELET COUNT 415 10^3/uL (130-450); RED BLOOD COUNT 3.57 10^6/uL (4.20-5.40); RED CELL DISTRIBUTION WIDTH 17.5 % (12.0-15.0); WHITE BLOOD COUNT 6.4 x10^3/uL (4.8-10.8)
--- OUTSIDE RECORDS SUMMARY | 2021-03-10 21:00 | EXTERNAL MEDICAL SUMMARY RPT | Continuity of Care Document ---
:1975 Demographics Phone Unavailable Preferred Language Unknown Marital Status Unknown Rastafari Affiliation Unknown Race Unknown Ethnic Group Unknown Author Organization [facility] Address [address] [phone] Phone Social History date description facility [phone]
[2021-03-10 21:07] LABS: VBG HCO3 24.7 mmol/L (23-28); VBG OXYGEN SATURATION 86.5 % (60-80); VBG PCO2 40.2 mmHg (41-51); VBG PH 7.406 (7.31-7.41); VBG PO2 52.5 mmHg (25-47); VBG TOTAL CO2 25.9 mmol/L (24-29)
[2021-03-10 21:08] LABS: KETONES, SERUM (ACETEST) NEGATIVE (NEGATIVE)
--- NOTE | 2021-03-10 21:09 | ED Physician Documentation ---
History of Present Illness - Stated complaint Stated Complaint: HIGH BLOOD SUGAR - Chief complaint Chief Complaint: General - History obtained from History obtained from: Patient - History of Present Illness Timing: Today Pain level now: 3 (generalized headache) Improved by: nothing Worsened by: no exacerbating factors - Additonal information Additional information: CHAR. Patient called 911, worried that her blood sugar was low. However, when we discuss what exactly the reading was when she checked it this evening, she shows me that the result was 382. I asked her why she interpreted this as low, and she says the previous result was in the 600s and she took insulin, and was worried the blood sugar was "dropping too fast". She c/o nausea but no vomiting. She c/o generalized headache. Review of Systems Constitutional: denies: Fever, Chills, Sweats Eyes: reports: Reviewed and negative Cardiac: reports: Reviewed and negative Respiratory: reports: Reviewed and negative GI: reports: Nausea. 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 SYSTEMS ADMINISTRATOR: section, Endometrial ablation, Tubal ligation HEENT: Tonsil/Adenoidectomy - Present Medications Home Medications: Ambulatory Orders Medication Instructions Recorded Confirmed Prazosin HCl 5 mg PO QPM 01/23/19 03/02/21 Trazodone HCl 300 mg PO QPM 01/23/19 03/02/21 Duloxetine HCl [Cymbalta] 60 mg PO BID 09/15/19 03/02/21 Insulin Aspart [Novolog] 30 - 40 units SQ .SLIDING SCALE 03/30/20 03/02/21 Butalb/Acetaminophen/Caffeine 1 cap PO Q4H PRN 11/06/20 03/02/21 [Fioricet 50-300-40 mg Capsule] Escitalopram Oxalate [Lexapro] 40 mg PO DAILY 11/06/20 03/02/21 Eszopiclone [Lunesta] 3 mg PO QPM PRN 11/06/20 03/02/21 Glucagon,Human Recombinant 1 mg IJ PRN PRN 11/06/20 03/02/21 [Glucagon Emergency Kit] Methocarbamol [Robaxin-750] 750 mg PO Q6H PRN 11/06/20 03/02/21 Metoclopramide [Reglan] 10 mg PO Q6H PRN 11/06/20 03/02/21 Mirabegron [Myrbetriq] 50 mg PO DAILY 11/06/20 03/02/21 Pantoprazole Sodium [Protonix] 20 mg PO QDAC 11/06/20 03/02/21 Promethazine [Phenergan] 25 mg PO Q6HR PRN #14 tablet 11/06/20 03/02/21 Simvastatin [Zocor] 20 mg PO QPM 11/06/20 03/02/21 Spironolactone [Aldactone] 100 mg PO DAILY 11/06/20 03/02/21 Insulin Glargine [Lantus Solostar] 20 unit SQ QDAC #3 pe 02/21/21 03/02/21 Insulin Regular, Human [Novolin R 5 unit SQ TIDWM #2 pe 02/21/21 03/02/21 Flexpen] Levothyroxine [Synthroid] 125 mcg PO DAILY 02/21/21 03/02/21 Pen Needle, Diabetic [Insulin Pen 1 each MC BID #150 ndl 02/21/21 03/02/21 Needle] Sulfamethox/Trimeth 800/160 1 tab PO BID 03/08/21 03/08/21 [Bactrim Ds] - Allergies Allergies/Adverse Reactions: Allergies Allergy/AdvReac Type Severity Reaction Status Date / Time carisoprodol [From Soma] Allergy Unknown Verified 03/08/21 12:49 divalproex sodium Allergy Rash Verified 03/08/21 12:49 [From Depakote] gabapentin [From Neurontin] Allergy Edema Verified 03/08/21 12:49 lidocaine Allergy Unknown Verified 03/08/21 12:49 nitrofurantoin Allergy Rash Verified 03/08/21 12:49 macrocrystalline * [From Macrodantin] nortriptyline Allergy Unknown Verified 03/08/21 12:49 ondansetron [From Zofran] Allergy Hives Verified 03/08/21 12:49 ondansetron HCl * Allergy Hives Verified 03/08/21 12:49 [From Zofran (as hydrochloride)] pregabalin [From Lyrica] Allergy Headache Verified 03/08/21 12:49 - Social History Does the pt smoke?: No Smoking Status: Never smoker Does the pt drink ETOH?: No Does the pt have substance abuse?: No - Immunizations Immunizations are current?: Yes Immunizations: TDAP >10years/unknown - POLST Patient has POLST: No POLST Status: DNR PD ED PE NORMAL - Vitals Vital signs reviewed: Yes - General General: Alert and oriented X 3, No acute distress, Well developed/nourished - HEENT HEENT: Moist mucous membranes - Neck Neck: Supple, no meningeal sign - Cardiac Cardiac: RRR, No murmur - Respiratory Respiratory: No respiratory distress, Clear bilaterally - Abdomen Abdomen: Soft, Non tender - Derm Derm: Normal color, Warm and dry - Extremities Extremities: No edema - Neuro Neuro: Alert and oriented X 3 Results - Vitals Vitals: Vital Signs - 24 hr 03/10/21 03/10/21 03/10/21 20:46 20:53 23:01 Temperature 36.4 C L 36.4 C L Heart Rate 106 H 106 H 94 Respiratory 20 20 18 Rate Blood Pressure 150/93 H 150/93 H 129/82 H O2 Saturation 97 97 97 Oxygen O2 Source Room air - Labs Labs: Laboratory Tests 03/10/21 03/10/21 03/10/21 20:52 20:52 20:52 WBC 6.4 RBC 3.57 L Hgb 8.7 L Hct 29.9 L MCV 83.8 MCH 24.4 L MCHC 29.1 L RDW 17.5 H Plt Count 415 MPV 9.4 Neut # (Auto) 3.8 Lymph # (Auto) 1.7 [place] # (Auto) 0.5 Eos # (Auto) 0.4 Baso # (Auto) 0.0 Absolute Nucleated RBC 0.00 Nucleated RBC % 0.0 VBG pH 7.406 VBG pCO2 40.2 L VBG pO2 52.5 H VBG HCO3 24.7 VBG Total CO2 25.9 VBG O2 Saturation 86.5 H VBG Base Excess 0.0 Sodium 132 L Potassium 4.1 Chloride 98 L Carbon Dioxide 24 Anion Gap 10.0 BUN 10 Creatinine 1.0 Estimated GFR (MDRD) 59 L Glucose 439 H Calcium 9.0 Phosphorus 3.8 Magnesium 2.2 Total Bilirubin 0.3 AST 13 ALT 17 Alkaline Phosphatase 108 Total Protein 6.7 Albumin 3.7 Globulin 3.0 Albumin/Globulin Ratio 1.2 Urine Color Urine Clarity Urine pH Ur Specific [place] Urine Protein Urine Glucose (UA) Urine Ketones Urine Occult Blood Urine Nitrite Urine Bilirubin Urine Urobilinogen Ur Leukocyte Esterase Ur Microscopic Review Urine Culture Comments Urine HCG, Qual Urine Opiates Screen Ur Oxycodone Screen Urine Methadone Screen Ur Propoxyphene Screen Ur Barbiturates Screen Ur Tricyclics Screen Ur Phencyclidine Scrn Ur Amphetamine Screen U Methamphetamines Scrn U Benzodiazepines Scrn Urine Cocaine Screen U Cannabinoids Screen Ethyl Alcohol < 5.0 Serum Ketones NEGATIVE 03/10/21 21:05 WBC RBC Hgb Hct MCV MCH MCHC RDW Plt Count MPV Neut # (Auto) Lymph # (Auto) [place] # (Auto) Eos # (Auto) Baso # (Auto) Absolute Nucleated RBC Nucleated RBC % VBG pH VBG pCO2 VBG pO2 VBG HCO3 VBG Total CO2 VBG O2 Saturation VBG Base Excess Sodium Potassium Chloride Carbon Dioxide Anion Gap BUN Creatinine Estimated GFR (MDRD) Glucose Calcium Phosphorus Magnesium Total Bilirubin AST ALT Alkaline Phosphatase Total Protein Albumin Globulin Albumin/Globulin Ratio Urine Color YELLOW Urine Clarity CLEAR Urine pH 6.0 Ur Specific [place] 1.010 Urine Protein NEGATIVE Urine Glucose (UA) >=1000 H Urine Ketones NEGATIVE Urine Occult Blood TRACE-INTA Urine Nitrite NEGATIVE Urine Bilirubin NEGATIVE Urine Urobilinogen 0.2 (NORMAL) Ur Leukocyte Esterase NEGATIVE Ur Microscopic Review NOT INDICATED Urine Culture Comments NOT INDICATED Urine HCG, Qual NEGATIVE Urine Opiates Screen NEGATIVE Ur Oxycodone Screen NEGATIVE Urine Methadone Screen NEGATIVE Ur Propoxyphene Screen NEGATIVE Ur Barbiturates Screen POSITIVE H Ur Tricyclics Screen NEGATIVE Ur Phencyclidine Scrn NEGATIVE Ur Amphetamine Screen NEGATIVE U Methamphetamines Scrn NEGATIVE U Benzodiazepines Scrn NEGATIVE Urine Cocaine Screen NEGATIVE U Cannabinoids Screen NEGATIVE Ethyl Alcohol Serum Ketones PD MEDICAL DECISION MAKING - ED course Complexity details: reviewed results, re-evaluated patient, considered differential, d/w patient ED course: BIBA. Patient called 911 because she was concerned her blood sugar was dropping too rapidly. She says it was in the 600s ranger earlier this evening, she gave herself insulin according to her sliding scale, and on recheck PROOF SORTER it was in the 380s. She has mild generalized headache, nausea but no vomiting. Patient has several recent [facility] ED visits this month for problems controlling her blood sugar. Her blood tests tonight are reassuring, including normal WBC and negative serum ketones. Her blood sugar got down to 106 but on subsequent recheck was 121 after a few PO crackers. She is comfortable with d/c home at this time Departure - Departure Disposition: 01 Home, Self Care Clinical Impression: Hyperglycemia Condition: Good Instructions: ED Hyperglycemia Diabetic Follow-Up: Isatu Belle MD [Primary Care Provider] - Within 1 week Discharge Date/Time: 03/10/21 23:58
[2021-03-10 21:11] LABS: ALBUMIN 3.7 g/dL (3.2-5.5); ALBUMIN/GLOBULIN RATIO 1.2 (1.0-2.2); ALKALINE PHOSPHATASE 108 IU/L (42-121); ALT ALANINE AMINOTRANSFERASE 17 IU/L (10-60); AST ASPARTATE AMINOTRANSFERASE 13 IU/L (10-42); BILIRUBIN,TOTAL 0.3 mg/dL (0.2-1.0); BUN - BLOOD UREA NITROGEN 10 mg/dL (6-20); CARBON DIOXIDE - CO2 24 mmol/L (21-32); CHLORIDE 98 mmol/L (101-111); ETOH - ETHANOL < 5.0 mg/dL; GFR - MDRD 59 (>89); GLUCOSE 439 mg/dL (70-100); MAGNESIUM 2.2 mg/dL (1.7-2.8); PHOSPHORUS 3.8 mg/dL (2.5-4.6); POTASSIUM 4.1 mmol/L (3.5-5.0); SODIUM 132 mmol/L (135-145); TOTAL PROTEIN 6.7 g/dL (6.7-8.2)
[2021-03-10 21:15] LABS: MUDS CUTOFF CONCENTRATIONS CUTOFF CONC BELOW:
[2021-03-10 21:17] LABS: BILIRUBIN,URINE NEGATIVE (NEGATIVE); GLUCOSE, URINE (UA) >=1000 mg/dL (NEGATIVE); KETONES,URINE (UA) NEGATIVE (NEGATIVE); LEUKOCYTE ESTERASE, URINE NEGATIVE (NEGATIVE); NITRITE,URINE NEGATIVE (NEGATIVE); OCCULT BLOOD,URINE TRACE-INTA (NEGATIVE); PROTEIN,URINE NEGATIVE (NEGATIVE); UROBILINOGEN,URINE 0.2 (NORMAL) E.U./dL (NORMAL)
[2021-03-10] MEDS ORDERED: KETOROLAC 30 MG/ML VIAL IVP STA (21:17)
[2021-03-10 21:20] LABS: CLARITY,URINE CLEAR (CLEAR)
[2021-03-10 21:21] LABS: HCG UR QUAL NEGATIVE
[2021-03-10 21:29] LABS: AMPHETAMINE SCREEN,URINE NEGATIVE (NEGATIVE); BARBITURATE SCREEN,UR POSITIVE (NEGATIVE); BENZODIAZEPINES SCREEN, URINE NEGATIVE (NEGATIVE); COCAINE SCREEN URINE NEGATIVE (NEGATIVE); METHADONE SCREEN, URINE NEGATIVE (NEGATIVE); METHAMPHETAMINES SCREEN, URINE NEGATIVE (NEGATIVE); OPIATE SCREEN, URINE NEGATIVE (NEGATIVE); OXYCODONE SCREEN, URINE NEGATIVE (NEGATIVE); PROPOXYPHENE SCREEN, URINE NEGATIVE (NEGATIVE); THC CANNABINOID SCREEN, URINE NEGATIVE (NEGATIVE); TRICYCLIC ANTIDEPRESSANT,URINE NEGATIVE (NEGATIVE)
[2021-03-10 23:02] VITALS: BP 129/82
== END 2021-03-10 23:58 | disposition home or self-care (01) ==
LOC: EDUNIT# → ED 20:40
DX: E10.65 Type 1 diabetes mellitus with hyperglycemia (principal); E10.42 Type 1 diabetes mellitus with diabetic polyneuropathy; F32.9 Major depressive disorder, single episode, unspecified; G43.909 Migraine, unspecified, not intractable, without status migrainosus; K21.9 Gastro-esophageal reflux disease without esophagitis; M79.7 Fibromyalgia; G89.29 Other chronic pain; M54.9 Dorsalgia, unspecified; H54.7 Unspecified visual loss; Z66 Do not resuscitate; Z79.4 Long term (current) use of insulin; Z79.899 Other long term (current) drug therapy
CPT/HCPCS: 36415; 80053; 80306; 81003; 81025; 82009; 82803; 83735; 84100; 85025; 96374; 99283; 99284; G0480; J1815; 80320; 81001; 87086

== ENCOUNTER 2021-03-12 19:00 | Emergency (ER) | payer MEDICARE, MEDICAID ==
--- OUTSIDE RECORDS SUMMARY | 2021-03-12 19:04 | EXTERNAL MEDICAL SUMMARY RPT | Continuity of Care Document ---
:1975 Demographics Phone Unavailable Preferred Language Unknown Marital Status Unknown Episcopal Affiliation Unknown Race Unknown Ethnic Group Unknown Author Organization [facility] Address [address] [phone] Phone Social History date description facility [phone]
--- OUTSIDE RECORDS SUMMARY | 2021-03-12 19:06 | EXTERNAL MEDICAL SUMMARY RPT | Continuity of Care Document ---
:1975 Demographics Phone Unavailable Preferred Language Unknown Marital Status Unknown Confucianism Affiliation Unknown Race Unknown Ethnic Group Unknown Author Organization [facility] Address [address] [id number] Phone Social History date description facility [phone]
[2021-03-12] MEDS ORDERED: INSULIN REGULAR HUMAN 100 UNIT/1 ML 10 ML MDV SUBQ STA (19:57)
[2021-03-12] MEDS ORDERED: KETOROLAC 60 MG/2 ML VIAL IM STA (19:57)
[2021-03-12] MEDS ORDERED: SUMAtriptan 6 MG/0.5 ML VIAL SUBQ STA (19:57)
[2021-03-12] MEDS ORDERED: ONDANSETRON ODT 4 MG TABLET TL STA (20:47)
[2021-03-12] MEDS ORDERED: PROMETHAZINE 25 MG/1 ML VIAL IM STA (20:51)
--- NOTE | 2021-03-12 20:53 | ED Physician Documentation ---
PD HPI HEADACHE - Stated complaint Stated Complaint: PATEL - Chief complaint Chief Complaint: Neuro - History obtained from History obtained from: Patient - History of Present Illness Timing - onset: Yesterday Timing - onset during: Rest Timing - duration: Days (2) Timing - details: Gradual onset Pain level max: 9 Pain level now: 9 Location: Global Quality: Throbbing, Aching Associated symptoms: No: Fever, Stiff neck, Nausea, Vomiting, Weakness, Numbness, Syncope, Seizure, Eye pain, Vision changes Improved by: Rest, Dark room Worsened by: Light, Noise - Additional information Additional information: Patient is a 45-year-old female with a longstanding history of headaches and poorly controlled diabetes. She states her blood sugar was over 600 before she came to the emergency department, gave herself insulin. She states that he has had a headache for the past 2 days. This is chronic. Has not taken anything for this. No nausea or vomiting. No abdominal pain. Review of Systems Ten Systems: 10 systems reviewed and negative Constitutional: denies: Fever, Chills Nose: denies: Rhinorrhea / runny nose, Congestion Throat: denies: Sore throat Cardiac: denies: Chest pain / pressure Respiratory: denies: Cough, Wheezing GI: denies: Abdominal Pain, Nausea, Vomiting, Diarrhea : denies: Dysuria, Frequency, Hesitancy Skin: denies: Rash Musculoskeletal: denies: Neck pain, Back pain Neurologic: denies: Headache PD PAST MEDICAL HISTORY - Past Medical History Cardiovascular: High cholesterol, Murmur Respiratory: Pneumonia, Shortness of breath Neuro: Headaches, Migraines, Peripheral neuropathy, Seizure disorder Endocrine/Autoimmune: Type 1 diabetes GI: GERD, GI bleed, Ulcers, Other 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: Other : Kidney stones HEENT: Chronic vision loss, Chronic sinusitis Psych: Depression Musculoskeletal: Osteoarthritis, Fibromyalgia, Fatigue, Chronic back pain Derm: None - Past Surgical History Past Surgical History: Yes General: Gastric surgery Ortho: Other /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: section, Endometrial ablation, Tubal ligation HEENT: Tonsil/Adenoidectomy - Present Medications Home Medications: Ambulatory Orders Medication Instructions Recorded Confirmed Prazosin HCl 5 mg PO QPM 01/23/19 03/02/21 Trazodone HCl 300 mg PO QPM 01/23/19 03/02/21 Duloxetine HCl [Cymbalta] 60 mg PO BID 09/15/19 03/02/21 Insulin Aspart [Novolog] 30 - 40 units SQ .SLIDING SCALE 03/30/20 03/02/21 Butalb/Acetaminophen/Caffeine 1 cap PO Q4H PRN 11/06/20 03/02/21 [Fioricet 50-300-40 mg Capsule] Escitalopram Oxalate [Lexapro] 40 mg PO DAILY 11/06/20 03/02/21 Eszopiclone [Lunesta] 3 mg PO QPM PRN 11/06/20 03/02/21 Glucagon,Human Recombinant 1 mg IJ PRN PRN 11/06/20 03/02/21 [Glucagon Emergency Kit] Methocarbamol [Robaxin-750] 750 mg PO Q6H PRN 11/06/20 03/02/21 Metoclopramide [Reglan] 10 mg PO Q6H PRN 11/06/20 03/02/21 Mirabegron [Myrbetriq] 50 mg PO DAILY 11/06/20 03/02/21 Pantoprazole Sodium [Protonix] 20 mg PO QDAC 11/06/20 03/02/21 Promethazine [Phenergan] 25 mg PO Q6HR PRN #14 tablet 11/06/20 03/02/21 Simvastatin [Zocor] 20 mg PO QPM 11/06/20 03/02/21 Spironolactone [Aldactone] 100 mg PO DAILY 11/06/20 03/02/21 Insulin Glargine [Lantus Solostar] 20 unit SQ QDAC #3 pe 02/21/21 03/02/21 Insulin Regular, Human [Novolin R 5 unit SQ TIDWM #2 pe 02/21/21 03/02/21 Flexpen] Levothyroxine [Synthroid] 125 mcg PO DAILY 02/21/21 03/02/21 Pen Needle, Diabetic [Insulin Pen 1 each MC BID #150 ndl 02/21/21 03/02/21 Needle] Sulfamethox/Trimeth 800/160 1 tab PO BID 03/08/21 03/08/21 [Bactrim Ds] - Allergies Allergies/Adverse Reactions: Allergies Allergy/AdvReac Type Severity Reaction Status Date / Time carisoprodol [From Soma] Allergy Unknown Verified 03/12/21 19:13 divalproex sodium Allergy Rash Verified 03/12/21 19:13 [From Depakote] gabapentin [From Neurontin] Allergy Edema Verified 03/12/21 19:13 lidocaine Allergy Unknown Verified 03/12/21 19:13 nitrofurantoin Allergy Rash Verified 03/12/21 19:13 macrocrystalline * [From Macrodantin] nortriptyline Allergy Unknown Verified 03/12/21 19:13 ondansetron [From Zofran] Allergy Hives Verified 03/12/21 19:13 ondansetron HCl * Allergy Hives Verified 03/12/21 19:13 [From Zofran (as hydrochloride)] pregabalin [From Lyrica] Allergy Headache Verified 03/12/21 19:13 - Social History Does the pt smoke?: No Smoking Status: Never smoker Does the pt drink ETOH?: No Does the pt have substance abuse?: No - Immunizations Immunizations are current?: Yes Immunizations: TDAP >10years/unknown - POLST Patient has POLST: No POLST Status: DNR PD ED PE NORMAL - Vitals Vital signs reviewed: Yes - General General: Alert and oriented X 3, No acute distress - HEENT HEENT: PERRL, EOMI, Ears normal, Moist mucous membranes, Pharynx benign - Neck Neck: Supple, no meningeal sign - Cardiac Cardiac: RRR, Strong equal pulses - Respiratory Respiratory: No respiratory distress, Clear bilaterally - Abdomen Abdomen: Soft, Non tender, Non distended - Back Back: No spinal TTP - Derm Derm: Warm and dry - Extremities Extremities: No edema, No calf tenderness / cord - Neuro Neuro: Alert and oriented X 3, siebel architect 2-12 intact, No motor deficit, No sensory deficit, Normal speech Eye Opening: Spontaneous Motor: Obeys Commands Verbal: Oriented GCS Score: 15 - Psych Psych: Normal mood, Normal affect Results - Vitals Vitals: Vital Signs - 24 hr 03/12/21 03/12/21 19:10 21:12 Temperature 36.1 C L 36.8 C Heart Rate 112 H 70 Respiratory 14 16 Rate Blood Pressure 157/98 H 140/79 H O2 Saturation 99 100 Oxygen O2 Source Room air PD MEDICAL DECISION MAKING - ED course Complexity details: reviewed results, re-evaluated patient, considered differential, d/w patient ED course: Patient given insulin, Toradol, Imitrex and Phenergan. Headache improved. Blood sugar improved. Patient states that she wants to go home at this time. Does not want any further care or treatment in the emergency department. No evidence of subarachnoid hemorrhage. No evidence of infection. No evidence of DKA. Patient ambulating without difficulty. Normal cerebellar test. Patient counseled regarding signs and symptoms for which I believe and urgent re- evaluation would be necessary. Patient with good understanding of and agreement to plan and is comfortable going home at this time This document was made in part using voice recognition software. While efforts are made to proofread this document, sound alike and grammatical errors may occur. Departure - Departure Disposition: Home, Self Care Clinical Impression: Hyperglycemia due to diabetes mellitus Migraine Qualifiers: Migraine type: unspecified Status migrainosus presence: without status migrainosus Intractability: not intractable Qualified Code(s): G43.909 - Migraine, unspecified, not intractable, without status migrainosus Condition: Good Instructions: ED Headache Migraine Follow-Up: Isatu Belle MD [Primary Care Provider] - Within 3 Days Comments: Talk to your doctor about prescribing medications for home for your migraines. Return if you worsen. Discharge Date/Time: 03/12/21 21:11
[2021-03-12 21:14] VITALS: BP 140/79
== END 2021-03-12 21:11 | disposition home or self-care (01) ==
LOC: ED 19:00
DX: G43.909 Migraine, unspecified, not intractable, without status migrainosus (principal); E10.65 Type 1 diabetes mellitus with hyperglycemia; E10.42 Type 1 diabetes mellitus with diabetic polyneuropathy; Z79.4 Long term (current) use of insulin; Z66 Do not resuscitate
CPT/HCPCS: 96372; 99283; 99284; J1815

== ENCOUNTER 2021-03-14 16:39 | Emergency (ER) | payer MEDICARE, MEDICAID ==
--- OUTSIDE RECORDS SUMMARY | 2021-03-14 16:42 | EXTERNAL MEDICAL SUMMARY RPT | Continuity of Care Document ---
:1975 Demographics Phone Unavailable Preferred Language Unknown Marital Status Unknown Lutheran Affiliation Unknown Race Unknown Ethnic Group Unknown Author Organization [facility] Address [address] [phone] Phone Social History date description facility [phone]
--- OUTSIDE RECORDS SUMMARY | 2021-03-14 16:45 | EXTERNAL MEDICAL SUMMARY RPT | Continuity of Care Document ---
:1975 Demographics Phone Unavailable Preferred Language Unknown Marital Status Unknown Orthodox Affiliation Unknown Race Unknown Ethnic Group Unknown Author Organization [facility] Address [address] [phone] Phone Social History date description facility [phone]
[2021-03-14 16:55] LABS: BILIRUBIN,URINE NEGATIVE (NEGATIVE); CLARITY,URINE CLEAR (CLEAR); GLUCOSE, URINE (UA) >=1000 mg/dL (NEGATIVE); KETONES,URINE (UA) NEGATIVE (NEGATIVE); LEUKOCYTE ESTERASE, URINE NEGATIVE (NEGATIVE); NITRITE,URINE NEGATIVE (NEGATIVE); OCCULT BLOOD,URINE NEGATIVE (NEGATIVE); PH,URINE 5.5 PH (5.0-7.5); PROTEIN,URINE NEGATIVE (NEGATIVE); UROBILINOGEN,URINE 0.2 (NORMAL) E.U./dL (NORMAL)
[2021-03-14] MEDS ORDERED: KETOROLAC 30 MG/ML VIAL IVP STA (17:02)
[2021-03-14] MEDS ORDERED: HYDROmorphone 1 MG/ML CARPUJECT IVP STA (17:02)
[2021-03-14] MEDS ORDERED: SODIUM CHLORIDE 0.9% 1,000 ML IV STA (17:05)
--- NOTE | 2021-03-14 17:06 | ED Physician Documentation ---
PD HPI ABD PAIN - Stated complaint Stated Complaint: LT FLANK PX - Chief complaint Chief Complaint: Abd Pain - History obtained from History obtained from: Patient - Additional information Additional information: 45-year-old woman with poorly controlled diabetes presents with left flank pain starting yesterday. She has a history of kidney stones including a very large one that needed removal at [facility] about 4 years ago with stenting. Does not currently see a urologist. She notes urinary burning but denies increase in frequency or foul-smelling urine. No fevers. Review of Systems Ten Systems: 10 systems reviewed and negative Constitutional: denies: Fever, Chills Nose: reports: Reviewed and negative Throat: reports: Reviewed and negative Cardiac: reports: Reviewed and negative PD PAST MEDICAL HISTORY - Past Medical History Cardiovascular: High cholesterol, Murmur Respiratory: Pneumonia, Shortness of breath Neuro: Headaches, Migraines, Peripheral neuropathy, Seizure disorder Endocrine/Autoimmune: Type 1 diabetes GI: GERD, GI bleed, Ulcers, Other CITY CONSTABLE: Other : Kidney stones HEENT: Chronic vision loss, Chronic sinusitis Psych: Depression Musculoskeletal: Osteoarthritis, Fibromyalgia, Fatigue, Chronic back pain Derm: None - Past Surgical History Past Surgical History: Yes General: Gastric surgery Ortho: Other /CITY CONSTABLE: section, Endometrial ablation, Tubal ligation HEENT: Tonsil/Adenoidectomy - Present Medications Home Medications: Ambulatory Orders Medication Instructions Recorded Confirmed Prazosin HCl 5 mg PO QPM 01/23/19 03/02/21 Trazodone HCl 300 mg PO QPM 01/23/19 03/02/21 Duloxetine HCl [Cymbalta] 60 mg PO BID 09/15/19 03/02/21 Insulin Aspart [Novolog] 30 - 40 units SQ .SLIDING SCALE 03/30/20 03/02/21 Butalb/Acetaminophen/Caffeine 1 cap PO Q4H PRN 11/06/20 03/02/21 [Fioricet 50-300-40 mg Capsule] Escitalopram Oxalate [Lexapro] 40 mg PO DAILY 11/06/20 03/02/21 Eszopiclone [Lunesta] 3 mg PO QPM PRN 11/06/20 03/02/21 Glucagon,Human Recombinant 1 mg IJ PRN PRN 11/06/20 03/02/21 [Glucagon Emergency Kit] Methocarbamol [Robaxin-750] 750 mg PO Q6H PRN 11/06/20 03/02/21 Metoclopramide [Reglan] 10 mg PO Q6H PRN 11/06/20 03/02/21 Mirabegron [Myrbetriq] 50 mg PO DAILY 11/06/20 03/02/21 Pantoprazole Sodium [Protonix] 20 mg PO QDAC 11/06/20 03/02/21 Promethazine [Phenergan] 25 mg PO Q6HR PRN #14 tablet 11/06/20 03/02/21 Simvastatin [Zocor] 20 mg PO QPM 11/06/20 03/02/21 Spironolactone [Aldactone] 100 mg PO DAILY 11/06/20 03/02/21 Insulin Glargine [Lantus Solostar] 20 unit SQ QDAC #3 pe 02/21/21 03/02/21 Insulin Regular, Human [Novolin R 5 unit SQ TIDWM #2 pe 02/21/21 03/02/21 Flexpen] Levothyroxine [Synthroid] 125 mcg PO DAILY 02/21/21 03/02/21 Pen Needle, Diabetic [Insulin Pen 1 each MC BID #150 ndl 02/21/21 03/02/21 Needle] Sulfamethox/Trimeth 800/160 1 tab PO BID 03/08/21 03/08/21 [Bactrim Ds] Ibuprofen [Motrin] 800 mg PO Q8H PRN #10 tablet 03/14/21 Metoclopramide [Reglan] 10 mg PO Q6H PRN #10 tablet 03/14/21 - Allergies Allergies/Adverse Reactions: Allergies Allergy/AdvReac Type Severity Reaction Status Date / Time carisoprodol [From Soma] Allergy Unknown Verified 03/14/21 16:46 divalproex sodium Allergy Rash Verified 03/14/21 16:46 [From Depakote] gabapentin [From Neurontin] Allergy Edema Verified 03/14/21 16:46 lidocaine Allergy Unknown Verified 03/14/21 16:46 nitrofurantoin Allergy Rash Verified 03/14/21 16:46 macrocrystalline * [From Macrodantin] nortriptyline Allergy Unknown Verified 03/14/21 16:46 ondansetron [From Zofran] Allergy Hives Verified 03/14/21 16:46 ondansetron HCl * Allergy Hives Verified 03/14/21 16:46 [From Zofran (as hydrochloride)] pregabalin [From Lyrica] Allergy Headache Verified 03/14/21 16:46 - Social History Does the pt smoke?: No Smoking Status: Never smoker Does the pt drink ETOH?: No Does the pt have substance abuse?: No - Immunizations Immunizations are current?: Yes Immunizations: TDAP >10years/unknown - POLST Patient has POLST: No POLST Status: DNR PD ED PE NORMAL - Vitals Vital signs reviewed: Yes - General General: Alert and oriented X 3, No acute distress - Cardiac Cardiac: RRR, No murmur - Respiratory Respiratory: No respiratory distress, Clear bilaterally - Abdomen Abdomen: Other (Mild left flank and left abdominal tenderness. No surgical signs) - Back Back: No CVA TTP, No spinal TTP - Derm Derm: Normal color, Warm and dry - Extremities Extremities: No edema, No calf tenderness / cord - Neuro Neuro: Alert and oriented X 3, Normal speech Results - Vitals Vitals: Vital Signs - 24 hr 03/14/21 03/14/21 03/14/21 16:41 16:58 18:59 Temperature 36.2 C L Heart Rate 113 H 102 H 102 H Respiratory 16 18 18 Rate Blood Pressure 133/85 H 122/91 H 139/88 H O2 Saturation 100 96 96 03/14/21 19:39 Temperature 98.0 C H Heart Rate 95 Respiratory 20 Rate Blood Pressure 122/87 H O2 Saturation 96 Oxygen O2 Source Room air - Labs Labs: Laboratory Tests 03/14/21 03/14/21 03/14/21 16:49 17:15 17:15 WBC 6.6 RBC 3.52 L Hgb 8.7 L Hct 29.4 L MCV 83.5 MCH 24.7 L MCHC 29.6 L RDW 17.5 H Plt Count 438 MPV 9.6 Neut # (Auto) 4.0 Lymph # (Auto) 1.7 [place] # (Auto) 0.4 Eos # (Auto) 0.4 Baso # (Auto) 0.1 Absolute Nucleated RBC 0.00 Nucleated RBC % 0.0 Sodium 135 Potassium 4.4 Chloride 101 Carbon Dioxide 22 Anion Gap 12.0 BUN 14 Creatinine 0.9 Estimated GFR (MDRD) 67 L Glucose 412 H Calcium 8.5 Total Bilirubin 0.4 AST 14 ALT 18 Alkaline Phosphatase 100 Total Protein 6.4 L Albumin 3.5 Globulin 2.9 Albumin/Globulin Ratio 1.2 Lipase 23 Urine Color YELLOW Urine Clarity CLEAR Urine pH 5.5 Ur Specific [place] 1.015 Urine Protein NEGATIVE Urine Glucose (UA) >=1000 H Urine Ketones NEGATIVE Urine Occult Blood NEGATIVE Urine Nitrite NEGATIVE Urine Bilirubin NEGATIVE Urine Urobilinogen 0.2 (NORMAL) Ur Leukocyte Esterase NEGATIVE Ur Microscopic Review NOT INDICATED Urine Culture Comments NOT INDICATED - Rads (name of study) CT KUB Radiology: EMP read contemporaneously (NAD) PD MEDICAL DECISION MAKING - ED course ED course: 45-year-old woman with history of renal colic presents with left flank pain. She has had a lot of issues lately with uncontrolled diabetes. CT KUB shows no evidence of significant abnormality including ureteral lift. Pain was improved after Toradol and Dilaudid here but there are concerns in the past for opiate seeking behavior and as such given the lack of specific painful diagnosis she is sent home with NSAIDs. Departure - Departure Disposition: 01 Home, Self Care Clinical Impression: Diabetes mellitus with hyperglycemia, Flank pain Condition: Stable Record reviewed to determine appropriate education?: Yes Instructions: ED Acute Pain UKO Prescriptions: Ibuprofen [Motrin] 800 mg PO Q8H PRN #10 tablet PRN Reason: PAIN &/OR FEVER Metoclopramide [Reglan] 10 mg PO Q6H PRN #10 tablet PRN Reason: nausea or headache Comments: followup with your commercial real estate appraiser as scheduled. Rest assured there is no sign of kidney stone or urinary tract infection. Return for new or worsening symptoms. Discharge Date/Time: 03/14/21 19:40
[2021-03-14 17:25] LABS: BASOPHILS # (AUTO) 0.1 10^3/uL (0.0-0.1); BASOPHILS % (AUTO) 0.9 %; EOSINOPHILS # (AUTO) 0.4 10^3/uL (0.0-0.7); EOSINOPHILS % (AUTO) 5.5 %; HCT - HEMATOCRIT 29.4 % (37.0-47.0); HGB - HEMOGLOBIN 8.7 g/dL (12.0-16.0); LYMPHOCYTES # (AUTO) 1.7 10^3/uL (1.5-3.5); LYMPHOCYTES % (AUTO) 25.1 %; MEAN CORPUSCULAR HEMOGLOBIN 24.7 pg (27.0-31.0); MEAN CORPUSCULAR HGB CONC 29.6 g/dL (32.0-36.0); MEAN CORPUSCULAR VOLUME 83.5 fL (81.0-99.0); MEAN PLATELET VOLUME 9.6 fL (7.9-10.8); MONOCYTES # (AUTO) 0.4 10^3/uL (0.0-1.0); MONOCYTES % (AUTO) 6.7 %; NEUTROPHILS % (AUTO) 61.2 %; PLT - PLATELET COUNT 438 10^3/uL (130-450); RED BLOOD COUNT 3.52 10^6/uL (4.20-5.40); RED CELL DISTRIBUTION WIDTH 17.5 % (12.0-15.0); WHITE BLOOD COUNT 6.6 x10^3/uL (4.8-10.8)
[2021-03-14 17:38] LABS: ALBUMIN 3.5 g/dL (3.2-5.5); ALBUMIN/GLOBULIN RATIO 1.2 (1.0-2.2); BILIRUBIN,TOTAL 0.4 mg/dL (0.2-1.0); CALCIUM 8.5 mg/dL (8.5-10.3); CREATININE 0.9 mg/dL (0.4-1.0); POTASSIUM 4.4 mmol/L (3.5-5.0); TOTAL PROTEIN 6.4 g/dL (6.7-8.2)
[2021-03-14] MEDS ORDERED: INSULIN REGULAR HUMAN 100 UNIT/1 ML 10 ML MDV IVP STA (17:45)
--- NOTE | 2021-03-14 18:20 | CT Report ---
PROCEDURE: Abdomen/Pelvis WO INDICATIONS: L flank pain TECHNIQUE: Noncontrast 5 mm thick sections acquired from the diaphragms to the symphysis. 5 mm coronal and sagi ttal reformats were then performed. For radiation dose reduction, the following was used: automated exposure control, adjustment of mA and/or kV according to patient size. COMPARISON: None. FINDINGS: ABDOMEN: Lung bases: Normal Liver: Normal Spleen: Normal Gallbladder: Negative Bile ducts: Normal Pancreas: Normal Adrenals: Normal Kidneys: Normal Stomach: Postop changes involving the stomach. Bowel: Moderate stool. No specific transition point. Scattered colonic diverticula. Small bowel surgi duncan anastomoses incidentally noted. Other: No free fluid or air. Abdominal nodes: Normal Aorta: Normal IVC: Normal Ventral wall: Tiny periumbilical fat-containing hernia PELVIS: Bladder: Normal Pelvic nodes: Normal Inguinal: No hernia. Bones: Spondylosis and facet arthropathy. Scattered small Schmorl's nodes. Anterior wedging of the T1 2 vertebral body which is technically age indeterminate. IMPRESSION: No hydronephrosis. No urolithiasis. No specific visualized etiology for left flank pain. Reviewed by: Leeroy Saab MD on 03/14/2021 6:18 PM PDT Approved by: Leeroy Saab MD on 03/14/2021 6:18 PM PDT Station ID: [id number]
[2021-03-14] MEDS ORDERED: ONDANSETRON 4 MG/2 ML VIAL IVP STA (18:25)
[2021-03-14] MEDS ORDERED: METOCLOPRAMIDE 10 MG/2 ML VIAL IVP STA (18:38)
[2021-03-14 19:41] VITALS: BP 122/87
== END 2021-03-14 19:40 | disposition home or self-care (01) ==
LOC: ED 16:39
DX: R10.9 Unspecified abdominal pain (principal); E10.65 Type 1 diabetes mellitus with hyperglycemia; E10.42 Type 1 diabetes mellitus with diabetic polyneuropathy; Z79.4 Long term (current) use of insulin; Z66 Do not resuscitate
CPT/HCPCS: 36415; 74176; 80053; 81003; 83690; 85025; 96374; 96375; 99283; 99284; J1170; J1815; J2765; 81001; 87086

== ENCOUNTER 2021-03-15 15:43 | Outpatient (CLI) | payer MEDICARE, MEDICAID | END 2021-03-15 15:44 | disposition EMS.NT | LOC: EMS 15:43 | DX: Z76.89 Persons encountering health services in other specified circumstances (principal) ==

== ENCOUNTER 2021-03-17 15:30 | Outpatient (CLI) | payer MEDICARE, MEDICAID ==
[2021-03-17 20:45] LABS: BILIRUBIN,URINE NEGATIVE (NEGATIVE); GLUCOSE, URINE (UA) 500 mg/dL (NEGATIVE); KETONES,URINE (UA) NEGATIVE (NEGATIVE); LEUKOCYTE ESTERASE, URINE SMALL (NEGATIVE); NITRITE,URINE NEGATIVE (NEGATIVE); OCCULT BLOOD,URINE TRACE-LYSE (NEGATIVE); PH,URINE 5.5 PH (5.0-7.5); PROTEIN,URINE NEGATIVE (NEGATIVE); UROBILINOGEN,URINE 0.2 (NORMAL) E.U./dL (NORMAL)
[2021-03-17 20:47] LABS: CLARITY,URINE CLOUDY (CLEAR)
[2021-03-17 20:54] LABS: BACTERIA,URINE Many /HPF (None Seen); RBC,URINE 0-5 /HPF (0-5); SQUAMOUS EPITHELIAL CELL,UR RARE Squamous (<= Few); WBC,URINE >25 /HPF (0-5)
== END 2021-03-17 23:59 | disposition home or self-care (01) ==
LOC: LAB.R 15:30
PROVIDERS: ATTEND Emergency Medicine
DX: R10.9 Unspecified abdominal pain (principal)
CPT/HCPCS: 81001; 87086; 87181

== ENCOUNTER 2021-03-22 18:13 | Emergency (ER) | payer MEDICARE, MEDICAID ==
--- OUTSIDE RECORDS SUMMARY | 2021-03-22 18:16 | EXTERNAL MEDICAL SUMMARY RPT | Continuity of Care Document ---
:1975 Demographics Phone Unavailable Preferred Language Unknown Marital Status Unknown Sabianist Affiliation Unknown Race Unknown Ethnic Group Unknown Author Organization [facility] Address [address] [place] [address] Phone Social History date description facility [phone]
[2021-03-22 18:22] VITALS: BP 124/74
--- OUTSIDE RECORDS SUMMARY | 2021-03-22 18:22 | EXTERNAL MEDICAL SUMMARY RPT | Continuity of Care Document ---
:1975 Demographics Phone Unavailable Preferred Language Unknown Marital Status Unknown Anabaptism Affiliation Unknown Race Unknown Ethnic Group Unknown Author Organization [facility] Address [address] [place] [address] Phone Social History date description facility [phone]
[2021-03-22 18:49] LABS: BASOPHILS # (AUTO) 0.1 10^3/uL (0.0-0.1); BASOPHILS % (AUTO) 1.4 %; EOSINOPHILS # (AUTO) 0.3 10^3/uL (0.0-0.7); EOSINOPHILS % (AUTO) 6.3 %; HCT - HEMATOCRIT 31.5 % (37.0-47.0); HGB - HEMOGLOBIN 9.3 g/dL (12.0-16.0); LYMPHOCYTES # (AUTO) 1.6 10^3/uL (1.5-3.5); LYMPHOCYTES % (AUTO) 31.4 %; MEAN CORPUSCULAR HEMOGLOBIN 24.2 pg (27.0-31.0); MEAN CORPUSCULAR HGB CONC 29.5 g/dL (32.0-36.0); MEAN CORPUSCULAR VOLUME 81.8 fL (81.0-99.0); MONOCYTES # (AUTO) 0.6 10^3/uL (0.0-1.0); MONOCYTES % (AUTO) 11.2 %; NEUTROPHILS # (AUTO) 2.5 10^3/uL (1.5-6.6); NEUTROPHILS % (AUTO) 49.3 %; PLT - PLATELET COUNT 462 10^3/uL (130-450); RED BLOOD COUNT 3.85 10^6/uL (4.20-5.40); RED CELL DISTRIBUTION WIDTH 16.3 % (12.0-15.0); WHITE BLOOD COUNT 5.1 x10^3/uL (4.8-10.8)
[2021-03-22 18:49] LABS: BILIRUBIN,URINE NEGATIVE (NEGATIVE); GLUCOSE, URINE (UA) >=1000 mg/dL (NEGATIVE); KETONES,URINE (UA) NEGATIVE (NEGATIVE); LEUKOCYTE ESTERASE, URINE NEGATIVE (NEGATIVE); NITRITE,URINE NEGATIVE (NEGATIVE); OCCULT BLOOD,URINE NEGATIVE (NEGATIVE); PH,URINE 5.5 PH (5.0-7.5); PROTEIN,URINE NEGATIVE (NEGATIVE); UROBILINOGEN,URINE 0.2 (NORMAL) E.U./dL (NORMAL)
[2021-03-22 18:51] LABS: CLARITY,URINE CLEAR (CLEAR)
[2021-03-22 18:52] LABS: HCG UR QUAL NEGATIVE
[2021-03-22] MEDS ORDERED: KETOROLAC 60 MG/2 ML VIAL IM STA (18:55)
[2021-03-22 19:01] LABS: ALBUMIN 3.9 g/dL (3.2-5.5); ALBUMIN/GLOBULIN RATIO 1.2 (1.0-2.2); BILIRUBIN,TOTAL 0.7 mg/dL (0.2-1.0); CALCIUM 8.7 mg/dL (8.5-10.3); CREATININE 0.8 mg/dL (0.4-1.0); POTASSIUM 3.6 mmol/L (3.5-5.0); TOTAL PROTEIN 7.1 g/dL (6.7-8.2)
--- NOTE | 2021-03-22 19:01 | ED Physician Documentation ---
PD HPI ABD PAIN - Stated complaint Stated Complaint: KIDNEY PX, MIGRAINE - Chief complaint Chief Complaint: Abd Pain - History obtained from History obtained from: Patient - Additional information Additional information: 45-year-old woman with poorly controlled type 1 diabetes, depression, migraines, hypothyroidism presents with complaints of right flank pain and headache. Developed burning dysuria about 5 days ago and was seen at the walk-in clinic. Diagnosed with UTI and subsequently a culture grew E. coli that was pansensitive and Bactrim was started which she has been on for 4 days. Despite that the right flank pain continues. Nonradiating. Not worse with movements or urination. No associated fevers or chills. She denies a also a 2-day onset of gradual headache typical for her migraines, throbbing frontal and occipital associated with light sensitivity and nausea without vomiting. Of note she has had relatively frequent emergency department visits as of late, in February she vis ited the hospital 7 times. She had a CT scan of the abdomen pelvis a week ago for flank pain without acute abnormality. She has only had a single positive UA recently, that was on 17 March. Review of Systems Ten Systems: 10 systems reviewed and negative Constitutional: denies: Fever, Chills Eyes: denies: Loss of vision, Decreased vision Nose: denies: Rhinorrhea / runny nose, Congestion Throat: denies: Sore throat Cardiac: denies: Chest pain / pressure, Palpitations PD PAST MEDICAL HISTORY - Past Medical History Cardiovascular: High cholesterol, Murmur Respiratory: Pneumonia, Shortness of breath Neuro: Headaches, Migraines, Peripheral neuropathy, Seizure disorder Endocrine/Autoimmune: Type 1 diabetes GI: GERD, GI bleed, Ulcers, Other VALVE MECHANIC: Other : Kidney stones HEENT: Chronic vision loss, Chronic sinusitis Psych: Depression Musculoskeletal: Osteoarthritis, Fibromyalgia, Fatigue, Chronic back pain Derm: None - Past Surgical History Past Surgical History: Yes General: Gastric surgery Ortho: Other /VALVE MECHANIC: section, Endometrial ablation, Tubal ligation HEENT: Tonsil/Adenoidectomy - Present Medications Home Medications: Ambulatory Orders Medication Instructions Recorded Confirmed Prazosin HCl 5 mg PO QPM 01/23/19 03/02/21 Trazodone HCl 300 mg PO QPM 01/23/19 03/02/21 Duloxetine HCl [Cymbalta] 60 mg PO BID 09/15/19 03/02/21 Insulin Aspart [Novolog] 30 - 40 units SQ .SLIDING SCALE 03/30/20 03/02/21 Butalb/Acetaminophen/Caffeine 1 cap PO Q4H PRN 11/06/20 03/02/21 [Fioricet 50-300-40 mg Capsule] Escitalopram Oxalate [Lexapro] 40 mg PO DAILY 11/06/20 03/02/21 Eszopiclone [Lunesta] 3 mg PO QPM PRN 11/06/20 03/02/21 Glucagon,Human Recombinant 1 mg IJ PRN PRN 11/06/20 03/02/21 [Glucagon Emergency Kit] Methocarbamol [Robaxin-750] 750 mg PO Q6H PRN 11/06/20 03/02/21 Metoclopramide [Reglan] 10 mg PO Q6H PRN 11/06/20 03/02/21 Mirabegron [Myrbetriq] 50 mg PO DAILY 11/06/20 03/02/21 Pantoprazole Sodium [Protonix] 20 mg PO QDAC 11/06/20 03/02/21 Promethazine [Phenergan] 25 mg PO Q6HR PRN #14 tablet 11/06/20 03/02/21 Simvastatin [Zocor] 20 mg PO QPM 11/06/20 03/02/21 Spironolactone [Aldactone] 100 mg PO DAILY 11/06/20 03/02/21 Insulin Glargine [Lantus Solostar] 20 unit SQ QDAC #3 pe 02/21/21 03/02/21 Insulin Regular, Human [Novolin R 5 unit SQ TIDWM #2 pe 02/21/21 03/02/21 Flexpen] Levothyroxine [Synthroid] 125 mcg PO DAILY 02/21/21 03/02/21 Pen Needle, Diabetic [Insulin Pen 1 each MC BID #150 ndl 02/21/21 03/02/21 Needle] Sulfamethox/Trimeth 800/160 1 tab PO BID 03/08/21 03/08/21 [Bactrim Ds] Ibuprofen [Motrin] 800 mg PO Q8H PRN #10 tablet 03/14/21 Metoclopramide [Reglan] 10 mg PO Q6H PRN #10 tablet 03/14/21 - Allergies Allergies/Adverse Reactions: Allergies Allergy/AdvReac Type Severity Reaction Status Date / Time carisoprodol [From Soma] Allergy Unknown Verified 03/22/21 18:22 divalproex sodium Allergy Rash Verified 03/22/21 18:22 [From Depakote] gabapentin [From Neurontin] Allergy Edema Verified 03/22/21 18:22 lidocaine Allergy Unknown Verified 03/22/21 18:22 nitrofurantoin Allergy Rash Verified 03/22/21 18:22 macrocrystalline * [From Macrodantin] nortriptyline Allergy Unknown Verified 03/22/21 18:22 ondansetron [From Zofran] Allergy Hives Verified 03/22/21 18:22 ondansetron HCl * Allergy Hives Verified 03/22/21 18:22 [From Zofran (as hydrochloride)] pregabalin [From Lyrica] Allergy Headache Verified 03/22/21 18:22 - Social History Does the pt smoke?: No Smoking Status: Never smoker Does the pt drink ETOH?: No Does the pt have substance abuse?: No - Immunizations Immunizations are current?: Yes Immunizations: TDAP >10years/unknown - POLST Patient has POLST: No POLST Status: DNR PD ED PE NORMAL - Vitals Vital signs reviewed: Yes - General General: Alert and oriented X 3, Other (She appears well albeit slightly light sensitive with supple neck and no obvious acute distress.) - HEENT HEENT: PERRL, EOMI - Neck Neck: Supple, no meningeal sign, No bony TTP - Cardiac Cardiac: RRR, No murmur - Respiratory Respiratory: No respiratory distress, Clear bilaterally - Abdomen Abdomen: Normal bowel sounds, Soft, Non tender - Back Back: Other (Mild right CVA tenderness, no overlying skin changes.) - Derm Derm: Normal color, Warm and dry - Extremities Extremities: No edema, No calf tenderness / cord - Neuro Neuro: Alert and oriented X 3, Normal speech Results - Vitals Vitals: Vital Signs - 24 hr 03/22/21 18:16 Temperature 36.5 C Heart Rate 117 H Respiratory 17 Rate Blood Pressure 124/74 O2 Saturation 97 Oxygen O2 Source Room air - Labs Labs: Laboratory Tests 03/22/21 03/22/21 03/22/21 18:26 18:38 18:45 WBC 5.1 RBC 3.85 L Hgb 9.3 L Hct 31.5 L MCV 81.8 MCH 24.2 L MCHC 29.5 L RDW 16.3 H Plt Count 462 H MPV 10.0 Neut # (Auto) 2.5 Lymph # (Auto) 1.6 [place] # (Auto) 0.6 Eos # (Auto) 0.3 Baso # (Auto) 0.1 Absolute Nucleated RBC 0.00 Nucleated RBC % 0.0 Sodium 132 L Potassium 3.6 Chloride 102 Carbon Dioxide 20 L Anion Gap 10.0 BUN 8 Creatinine 0.8 Estimated GFR (MDRD) 77 L Glucose 222 H POC Whole Bld Glucose Calcium 8.7 Total Bilirubin 0.7 AST 12 ALT 13 Alkaline Phosphatase 89 Total Protein 7.1 Albumin 3.9 Globulin 3.2 Albumin/Globulin Ratio 1.2 Lipase 23 Urine Color YELLOW Urine Clarity CLEAR Urine pH 5.5 Ur Specific [place] 1.015 Urine Protein NEGATIVE Urine Glucose (UA) >=1000 H Urine Ketones NEGATIVE Urine Occult Blood NEGATIVE Urine Nitrite NEGATIVE Urine Bilirubin NEGATIVE Urine Urobilinogen 0.2 (NORMAL) Ur Leukocyte Esterase NEGATIVE Ur Microscopic Review NOT INDICATED Urine Culture Comments NOT INDICATED Urine HCG, Qual NEGATIVE 03/22/21 18:45 WBC RBC Hgb Hct MCV MCH MCHC RDW Plt Count MPV Neut # (Auto) Lymph # (Auto) [place] # (Auto) Eos # (Auto) Baso # (Auto) Absolute Nucleated RBC Nucleated RBC % Sodium Potassium Chloride Carbon Dioxide Anion Gap BUN Creatinine Estimated GFR (MDRD) Glucose POC Whole Bld Glucose 216 H Calcium Total Bilirubin AST ALT Alkaline Phosphatase Total Protein Albumin Globulin Albumin/Globulin Ratio Lipase Urine Color Urine Clarity Urine pH Ur Specific [place] Urine Protein Urine Glucose (UA) Urine Ketones Urine Occult Blood Urine Nitrite Urine Bilirubin Urine Urobilinogen Ur Leukocyte Esterase Ur Microscopic Review Urine Culture Comments Urine HCG, Qual PD MEDICAL DECISION MAKING - ED course ED course: 45-year-old woman with headache which by history and physical was not likely to be anything serious, also persistent flank pain after a diagnosis of pyelonephritis without persistent pyuria and the remainder of her labs are unremarkable, her blood sugars actually the best it has been in while from what I can see. No real help from Toradol here and she subsequently requested Dilaudid by name which was declined as inappropriate for the clinical circumstances and we agreed on a shot of Compazine prior to discharge. Departure - Departure Disposition: Home, Self Care Clinical Impression: Flank pain Migraine headache Qualifiers: Migraine type: without aura Status migrainosus presence: with status migrainosus Intractability: not intractable Qualified Code(s): G43.001 - Migraine without aura, not intractable, with status migrainosus Condition: Good Record reviewed to determine appropriate education?: Yes Instructions: ED Headache Migraine Comments: Follow-up with your primary care physician and panel instrument repairer, both next available appointments. Return for new or worsening symptoms. Continue antibiotics. Discharge Date/Time: 03/22/21 20:05
[2021-03-22] MEDS: ONDANSETRON ODT 4 MG TABLET TL STA ×2 (19:06→19:10)
[2021-03-22] MEDS ORDERED: PROCHLORPERAZINE 10 MG/2 ML VIAL IM STA (19:46)
== END 2021-03-22 20:05 | disposition home or self-care (01) ==
LOC: ED 18:13
DX: G43.001 Migraine without aura, not intractable, with status migrainosus (principal); R10.9 Unspecified abdominal pain; E10.42 Type 1 diabetes mellitus with diabetic polyneuropathy; Z79.4 Long term (current) use of insulin; Z66 Do not resuscitate
CPT/HCPCS: 36415; 80053; 81001; 81003; 81025; 83690; 85025; 87086; 96372; 99283; 99284

== ENCOUNTER 2021-04-10 10:06 | Outpatient (CLI) | payer MEDICARE, MEDICAID | END 2021-04-10 10:07 | disposition critical access hospital (66) | LOC: EMS 10:06 | DX: E11.65 Type 2 diabetes mellitus with hyperglycemia (principal); R51.9 Headache, unspecified; Z79.4 Long term (current) use of insulin | CPT/HCPCS: A0425; A0429 ==

== ENCOUNTER 2021-04-10 10:29 | Emergency (ER) | payer MEDICARE, MEDICAID ==
[2021-04-10 10:52] LABS: VBG HCO3 25.1 mmol/L (23-28); VBG OXYGEN SATURATION 60.4 % (60-80); VBG PCO2 42.5 mmHg (41-51); VBG PH 7.389 (7.31-7.41); VBG PO2 33.1 mmHg (25-47); VBG TOTAL CO2 26.4 mmol/L (24-29)
[2021-04-10 10:54] LABS: BASOPHILS # (AUTO) 0.1 10^3/uL (0.0-0.1); BASOPHILS % (AUTO) 1.4 %; EOSINOPHILS # (AUTO) 0.4 10^3/uL (0.0-0.7); EOSINOPHILS % (AUTO) 8.6 %; HCT - HEMATOCRIT 31.5 % (37.0-47.0); HGB - HEMOGLOBIN 9.3 g/dL (12.0-16.0); LYMPHOCYTES # (AUTO) 0.9 10^3/uL (1.5-3.5); LYMPHOCYTES % (AUTO) 20.8 %; MEAN CORPUSCULAR HEMOGLOBIN 23.2 pg (27.0-31.0); MEAN CORPUSCULAR HGB CONC 29.5 g/dL (32.0-36.0); MEAN CORPUSCULAR VOLUME 78.6 fL (81.0-99.0); MEAN PLATELET VOLUME 10.2 fL (7.9-10.8); MONOCYTES # (AUTO) 0.3 10^3/uL (0.0-1.0); MONOCYTES % (AUTO) 7.2 %; NEUTROPHILS # (AUTO) 2.6 10^3/uL (1.5-6.6); NEUTROPHILS % (AUTO) 61.5 %; PLT - PLATELET COUNT 387 10^3/uL (130-450); RED BLOOD COUNT 4.01 10^6/uL (4.20-5.40); RED CELL DISTRIBUTION WIDTH 15.6 % (12.0-15.0); WHITE BLOOD COUNT 4.2 x10^3/uL (4.8-10.8)
[2021-04-10] MEDS ORDERED: SODIUM CHLORIDE 0.9% 1,000 ML IV STA ×2 (10:59)
[2021-04-10] MEDS ORDERED: INSULIN REGULAR HUMAN 100 UNIT/1 ML 10 ML MDV SUBQ STA (10:59)
--- NOTE | 2021-04-10 11:01 | ED Physician Documentation ---
History of Present Illness - Stated complaint Stated Complaint: HIGH BS - Chief complaint Chief Complaint: General - History obtained from History obtained from: Patient - History of Present Illness Timing: Today Pain level max: 5 Pain level now: 4 - Additonal information Additional information: Is a 45-year-old female who presents to the emergency department stating her blood sugars have been high recently. Her normal blood sugar is around 3-400. It was over 500 today. No vomiting. Has chronic headaches. States has a headache today. No fevers. No chills. No diarrhea or constipation. She is currently on Lantus 10 units subcu twice daily and then regular insulin 6 units for any blood sugar over 400. 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: Other : Kidney stones HEENT: Chronic vision loss, Chronic sinusitis Psych: Depression Musculoskeletal: Osteoarthritis, Fibromyalgia, Fatigue, Chronic back pain Derm: None - Past Surgical History Past Surgical History: Yes General: Gastric surgery Ortho: Other /INVENTORY CONTROL COORDINATOR: section, Endometrial ablation, Tubal ligation HEENT: Tonsil/Adenoidectomy - Present Medications Home Medications: Ambulatory Orders Medication Instructions Recorded Confirmed Prazosin HCl 5 mg PO QPM 01/23/19 03/02/21 Trazodone HCl 300 mg PO QPM 01/23/19 03/02/21 Duloxetine HCl [Cymbalta] 60 mg PO BID 09/15/19 03/02/21 Insulin Aspart [Novolog] 30 - 40 units SQ .SLIDING SCALE 03/30/20 03/02/21 Butalb/Acetaminophen/Caffeine 1 cap PO Q4H PRN 11/06/20 03/02/21 [Fioricet 50-300-40 mg Capsule] Escitalopram Oxalate [Lexapro] 40 mg PO DAILY 11/06/20 03/02/21 Eszopiclone [Lunesta] 3 mg PO QPM PRN 11/06/20 03/02/21 Glucagon,Human Recombinant 1 mg IJ PRN PRN 11/06/20 03/02/21 [Glucagon Emergency Kit] Methocarbamol [Robaxin-750] 750 mg PO Q6H PRN 11/06/20 03/02/21 Metoclopramide [Reglan] 10 mg PO Q6H PRN 11/06/20 03/02/21 Mirabegron [Myrbetriq] 50 mg PO DAILY 11/06/20 03/02/21 Pantoprazole Sodium [Protonix] 20 mg PO QDAC 11/06/20 03/02/21 Promethazine [Phenergan] 25 mg PO Q6HR PRN #14 tablet 11/06/20 03/02/21 Simvastatin [Zocor] 20 mg PO QPM 11/06/20 03/02/21 Spironolactone [Aldactone] 100 mg PO DAILY 11/06/20 03/02/21 Insulin Glargine [Lantus Solostar] 20 unit SQ QDAC #3 pe 02/21/21 03/02/21 Insulin Regular, Human [Novolin R 5 unit SQ TIDWM #2 pe 02/21/21 03/02/21 Flexpen] Levothyroxine [Synthroid] 125 mcg PO DAILY 02/21/21 03/02/21 Pen Needle, Diabetic [Insulin Pen 1 each MC BID #150 ndl 02/21/21 03/02/21 Needle] Sulfamethox/Trimeth 800/160 1 tab PO BID 03/08/21 03/08/21 [Bactrim Ds] Ibuprofen [Motrin] 800 mg PO Q8H PRN #10 tablet 03/14/21 Metoclopramide [Reglan] 10 mg PO Q6H PRN #10 tablet 03/14/21 - Allergies Allergies/Adverse Reactions: Allergies Allergy/AdvReac Type Severity Reaction Status Date / Time carisoprodol [From Soma] Allergy Unknown Verified 04/10/21 10:43 divalproex sodium Allergy Rash Verified 04/10/21 10:43 [From Depakote] gabapentin [From Neurontin] Allergy Edema Verified 04/10/21 10:43 lidocaine Allergy Unknown Verified 04/10/21 10:43 nitrofurantoin Allergy Rash Verified 04/10/21 10:43 macrocrystalline * [From Macrodantin] nortriptyline Allergy Unknown Verified 04/10/21 10:43 ondansetron [From Zofran] Allergy Hives Verified 04/10/21 10:43 ondansetron HCl * Allergy Hives Verified 04/10/21 10:43 [From Zofran (as hydrochloride)] pregabalin [From Lyrica] Allergy Headache Verified 04/10/21 10:43 - Social History Does the pt smoke?: No Smoking Status: Never smoker Does the pt drink ETOH?: No Does the pt have substance abuse?: No - Immunizations Immunizations are current?: Yes Immunizations: TDAP >10years/unknown - POLST Patient has POLST: No POLST Status: DNR PD ED PE NORMAL - Vitals Vital signs reviewed: Yes - General General: Alert and oriented X 3, No acute distress, Well developed/nourished - HEENT HEENT: Atraumatic, PERRL, EOMI, Moist mucous membranes - Neck Neck: Supple, no meningeal sign - Cardiac Cardiac: RRR, Strong equal pulses - Respiratory Respiratory: No respiratory distress, Clear bilaterally - Abdomen Abdomen: Soft, Non tender, Non distended - Derm Derm: Warm and dry - Extremities Extremities: No edema, No calf tenderness / cord - Neuro Neuro: Alert and oriented X 3 - Psych Psych: Normal mood, Normal affect Results - Vitals Vitals: Vital Signs - 24 hr 04/10/21 04/10/21 04/10/21 10:38 12:42 14:00 Temperature 36.4 C L 36.6 C 36.7 C Heart Rate 106 H 91 80 Respiratory 16 16 16 Rate Blood Pressure 122/76 133/83 H 124/89 H O2 Saturation 97 97 100 Oxygen O2 Source Room air - Labs Labs: Laboratory Tests 04/10/21 04/10/21 04/10/21 10:43 10:43 10:43 WBC 4.2 L RBC 4.01 L Hgb 9.3 L Hct 31.5 L MCV 78.6 L MCH 23.2 L MCHC 29.5 L RDW 15.6 H Plt Count 387 MPV 10.2 Neut # (Auto) 2.6 Lymph # (Auto) 0.9 L [place] # (Auto) 0.3 Eos # (Auto) 0.4 Baso # (Auto) 0.1 Absolute Nucleated RBC 0.00 Nucleated RBC % 0.0 VBG pH 7.389 VBG pCO2 42.5 VBG pO2 33.1 VBG HCO3 25.1 VBG Total CO2 26.4 VBG O2 Saturation 60.4 VBG Base Excess 0.0 Sodium 130 L Potassium 3.9 Chloride 95 L Carbon Dioxide 25 Anion Gap 10.0 BUN 13 Creatinine 0.9 Estimated GFR (MDRD) 67 L Glucose 448 H Calcium 8.7 Total Bilirubin 0.6 AST 12 ALT 15 Alkaline Phosphatase 91 Total Protein 7.3 Albumin 3.8 Globulin 3.5 Albumin/Globulin Ratio 1.1 Lipase 34 Urine Color Urine Clarity Urine pH Ur Specific [place] Urine Protein Urine Glucose (UA) Urine Ketones Urine Occult Blood Urine Nitrite Urine Bilirubin Urine Urobilinogen Ur Leukocyte Esterase Ur Microscopic Review Urine Culture Comments Serum Ketones SMALL H 04/10/21 12:44 WBC RBC Hgb Hct MCV MCH MCHC RDW Plt Count MPV Neut # (Auto) Lymph # (Auto) [place] # (Auto) Eos # (Auto) Baso # (Auto) Absolute Nucleated RBC Nucleated RBC % VBG pH VBG pCO2 VBG pO2 VBG HCO3 VBG Total CO2 VBG O2 Saturation VBG Base Excess Sodium Potassium Chloride Carbon Dioxide Anion Gap BUN Creatinine Estimated GFR (MDRD) Glucose Calcium Total Bilirubin AST ALT Alkaline Phosphatase Total Protein Albumin Globulin Albumin/Globulin Ratio Lipase Urine Color YELLOW Urine Clarity CLEAR Urine pH 6.5 Ur Specific [place] 1.015 Urine Protein NEGATIVE Urine Glucose (UA) >=1000 H Urine Ketones 15 H Urine Occult Blood NEGATIVE Urine Nitrite NEGATIVE Urine Bilirubin NEGATIVE Urine Urobilinogen 0.2 (NORMAL) Ur Leukocyte Esterase NEGATIVE Ur Microscopic Review NOT INDICATED Urine Culture Comments NOT INDICATED Serum Ketones PD MEDICAL DECISION MAKING - ED course Complexity details: reviewed results, re-evaluated patient, considered differential, d/w patient ED course: No evidence of DKA. Blood sugar improved with insulin and IV fluids. Headache resolved in the emergency department. Will increase her Lantus to 15 units twice a day and have her follow-up with her doctor for further care. Patient counseled regarding signs and symptoms for which I believe and urgent re- evaluation would be necessary. Patient with good understanding of and agreement to plan and is comfortable going home at this time This document was made in part using voice recognition software. While efforts are made to proofread this document, sound alike and grammatical errors may occur. Departure - Departure Disposition: 01 Home, Self Care Clinical Impression: Hyperglycemia Headache Qualifiers: Headache type: unspecified Headache chronicity pattern: acute headache Intractability: not intractable Qualified Code(s): R51.9 - Headache, unspecified Condition: Good Instructions: ED Hyperglycemia Diabetic, ED Cephalgia Unspecified Follow-Up: Isatu Belle MD [Primary Care Provider] - Within 3 Days Comments: Will increase your Lantus to 15 units twice a day from 10 units twice a day. Follow-up closely with your doctor for further care. Return if you worsen Discharge Date/Time: 04/10/21 14:16
[2021-04-10] MEDS: KETOROLAC 30 MG/ML VIAL IVP STA ×2 (11:06→11:45)
[2021-04-10 11:07] LABS: ALBUMIN 3.8 g/dL (3.2-5.5); ALBUMIN/GLOBULIN RATIO 1.1 (1.0-2.2); ALKALINE PHOSPHATASE 91 IU/L (42-121); ALT ALANINE AMINOTRANSFERASE 15 IU/L (10-60); AST ASPARTATE AMINOTRANSFERASE 12 IU/L (10-42); BILIRUBIN,TOTAL 0.6 mg/dL (0.2-1.0); BUN - BLOOD UREA NITROGEN 13 mg/dL (6-20); CALCIUM 8.7 mg/dL (8.5-10.3); CARBON DIOXIDE - CO2 25 mmol/L (21-32); CHLORIDE 95 mmol/L (101-111); CREATININE 0.9 mg/dL (0.4-1.0); GFR - MDRD 67 (>89); GLUCOSE 448 mg/dL (70-100); LIPASE 34 U/L (22-51); POTASSIUM 3.9 mmol/L (3.5-5.0); SODIUM 130 mmol/L (135-145); TOTAL PROTEIN 7.3 g/dL (6.7-8.2)
[2021-04-10 11:15] LABS: KETONES, SERUM (ACETEST) SMALL (NEGATIVE)
[2021-04-10] MEDS ORDERED: MORPHINE 2 MG/ML CARPUJECT IVP STA ×2 (11:17→13:40)
[2021-04-10] MEDS ORDERED: PROMETHAZINE INJ 25 MG in SODIUM CHLORIDE 0.9% 50 ML IV STA (12:48)
[2021-04-10 12:49] LABS: BILIRUBIN,URINE NEGATIVE (NEGATIVE); GLUCOSE, URINE (UA) >=1000 mg/dL (NEGATIVE); KETONES,URINE (UA) 15 mg/dL (NEGATIVE); LEUKOCYTE ESTERASE, URINE NEGATIVE (NEGATIVE); NITRITE,URINE NEGATIVE (NEGATIVE); OCCULT BLOOD,URINE NEGATIVE (NEGATIVE); PH,URINE 6.5 PH (5.0-7.5); PROTEIN,URINE NEGATIVE (NEGATIVE); UROBILINOGEN,URINE 0.2 (NORMAL) E.U./dL (NORMAL)
[2021-04-10 12:50] LABS: CLARITY,URINE CLEAR (CLEAR)
[2021-04-10 14:15] VITALS: BP 124/89
== END 2021-04-10 14:16 | disposition home or self-care (01) ==
LOC: EDUNIT# → ED 10:29
DX: E10.65 Type 1 diabetes mellitus with hyperglycemia (principal); E10.42 Type 1 diabetes mellitus with diabetic polyneuropathy; Z79.4 Long term (current) use of insulin
CPT/HCPCS: 36415; 80053; 81003; 82009; 82803; 83690; 85025; 96361; 96365; 96375; 96376; 99283; 99284; J7040; 81001; 87086

== ENCOUNTER 2021-05-06 14:32 | Outpatient (CLI) | payer MEDICARE, MEDICAID | END 2021-05-06 23:59 | disposition home or self-care (01) | LOC: LAB.N 14:32 | PROVIDERS: ATTEND Nurse Practitioner | DX: R30.0 Dysuria (principal) | CPT/HCPCS: 87086 ==

== ENCOUNTER 2021-05-07 14:09 | Outpatient (CLI) | payer MEDICARE, MEDICAID | END 2021-05-07 14:10 | disposition critical access hospital (66) | LOC: EMS 14:09 | DX: R42 Dizziness and giddiness (principal); R30.0 Dysuria | CPT/HCPCS: A0425; A0429 ==

== ENCOUNTER 2021-05-07 14:29 | Emergency (ER) | payer MEDICARE, MEDICAID ==
[2021-05-07] MEDS ORDERED: ONDANSETRON 4 MG/2 ML VIAL IVP STA (14:49)
[2021-05-07] MEDS ORDERED: KETOROLAC 15 MG/ML VIAL IVP STA (14:49)
[2021-05-07] MEDS ORDERED: SODIUM CHLORIDE 0.9% 1,000 ML IV STA ×3 (14:49→14:50)
--- NOTE | 2021-05-07 14:52 | ED Physician Documentation ---
History of Present Illness - Stated complaint Stated Complaint: LIGHT HEADED/DIZZY - Chief complaint Chief Complaint: General - History obtained from History obtained from: Patient - History of Present Illness Timing: Today Pain level max: 3 Pain level now: 3 - Additonal information Additional information: Patient is a 45-year-old female with poorly controlled diabetes who presents to the emergency department stating that her blood sugar was high today. She states it was around 400 at home. Took insulin about 2 hours prior to arrival but it was still high. She states she felt lightheaded today as well. She has a migraine headache currently as well. No vomiting. No diarrhea. She states she has had some pain with urination. No abdominal pain. No trauma. Review of Systems Ten Systems: 10 systems reviewed and negative Constitutional: denies: Fever, Chills Nose: denies: Rhinorrhea / runny nose, Congestion GI: denies: Vomiting, Diarrhea Skin: denies: Rash Musculoskeletal: denies: Neck pain, Back pain Neurologic: denies: Headache PD PAST MEDICAL HISTORY - Past Medical History Cardiovascular: High cholesterol, Murmur Respiratory: Pneumonia, Shortness of breath Neuro: Headaches, Migraines, Peripheral neuropathy, Seizure disorder Endocrine/Autoimmune: Type 1 diabetes GI: GERD, GI bleed, Ulcers, Other FAMILY THERAPIST: Other : Kidney stones HEENT: Chronic vision loss, Chronic sinusitis Psych: Depression Musculoskeletal: Osteoarthritis, Fibromyalgia, Fatigue, Chronic back pain Derm: None - Past Surgical History Past Surgical History: Yes General: Gastric surgery Ortho: Other /FAMILY THERAPIST: section, Endometrial ablation, Tubal ligation HEENT: Tonsil/Adenoidectomy - Present Medications Home Medications: Ambulatory Orders Medication Instructions Recorded Confirmed Prazosin HCl 5 mg PO QPM 01/23/19 03/02/21 Trazodone HCl 300 mg PO QPM 01/23/19 03/02/21 Duloxetine HCl [Cymbalta] 60 mg PO BID 09/15/19 03/02/21 Insulin Aspart [Novolog] 30 - 40 units SQ .SLIDING SCALE 03/30/20 03/02/21 Butalb/Acetaminophen/Caffeine 1 cap PO Q4H PRN 11/06/20 03/02/21 [Fioricet 50-300-40 mg Capsule] Escitalopram Oxalate [Lexapro] 40 mg PO DAILY 11/06/20 03/02/21 Eszopiclone [Lunesta] 3 mg PO QPM PRN 11/06/20 03/02/21 Glucagon,Human Recombinant 1 mg IJ PRN PRN 11/06/20 03/02/21 [Glucagon Emergency Kit] Metoclopramide [Reglan] 10 mg PO Q6H PRN 11/06/20 03/02/21 Mirabegron [Myrbetriq] 50 mg PO DAILY 11/06/20 03/02/21 Pantoprazole Sodium [Protonix] 20 mg PO QDAC 11/06/20 03/02/21 Promethazine [Phenergan] 25 mg PO Q6HR PRN #14 tablet 11/06/20 03/02/21 Simvastatin [Zocor] 20 mg PO QPM 11/06/20 03/02/21 Spironolactone [Aldactone] 100 mg PO DAILY 11/06/20 03/02/21 methocarbamoL [Robaxin-750] 750 mg PO Q6H PRN 11/06/20 03/02/21 Insulin Glargine [Lantus Solostar] 20 unit SQ QDAC #3 pe 02/21/21 03/02/21 Insulin Regular, Human [Novolin R 5 unit SQ TIDWM #2 pe 02/21/21 03/02/21 Flexpen] Levothyroxine [Synthroid] 125 mcg PO DAILY 02/21/21 03/02/21 Pen Needle, Diabetic [Insulin Pen 1 each MC BID #150 ndl 02/21/21 03/02/21 Needle] Sulfamethox/Trimeth 800/160 1 tab PO BID 03/08/21 03/08/21 [Bactrim Ds] Ibuprofen [Motrin] 800 mg PO Q8H PRN #10 tablet 03/14/21 Metoclopramide [Reglan] 10 mg PO Q6H PRN #10 tablet 03/14/21 - Allergies Allergies/Adverse Reactions: Allergies Allergy/AdvReac Type Severity Reaction Status Date / Time carisoprodol [From Soma] Allergy Unknown Verified 05/07/21 14:38 divalproex sodium Allergy Rash Verified 05/07/21 14:38 [From Depakote] gabapentin [From Neurontin] Allergy Edema Verified 05/07/21 14:38 lidocaine Allergy Unknown Verified 05/07/21 14:38 nitrofurantoin Allergy Rash Verified 05/07/21 14:38 macrocrystalline * [From Macrodantin] nortriptyline Allergy Unknown Verified 05/07/21 14:38 ondansetron [From Zofran] Allergy Hives Verified 05/07/21 14:38 ondansetron HCl * Allergy Hives Verified 05/07/21 14:38 [From Zofran (as hydrochloride)] pregabalin [From Lyrica] Allergy Headache Verified 05/07/21 14:38 - Social History Does the pt smoke?: No Smoking Status: Never smoker Does the pt drink ETOH?: No Does the pt have substance abuse?: No - Immunizations Immunizations are current?: Yes Immunizations: TDAP >10years/unknown - POLST Patient has POLST: No POLST Status: DNR PD ED PE NORMAL - Vitals Vital signs reviewed: Yes - General General: Alert and oriented X 3, No acute distress, Well developed/nourished - HEENT HEENT: PERRL, Moist mucous membranes - Neck Neck: Supple, no meningeal sign - Cardiac Cardiac: RRR, Strong equal pulses - Respiratory Respiratory: No respiratory distress, Clear bilaterally - Abdomen Abdomen: Soft, Non tender, Non distended - Back Back: No spinal TTP - Derm Derm: Warm and dry - Extremities Extremities: No edema, No calf tenderness / cord - Neuro Neuro: Alert and oriented X 3 - Psych Psych: Normal mood, Normal affect Results - Vitals Vitals: Vital Signs - 24 hr 05/07/21 05/07/21 14:34 16:25 Temperature 37.2 C Heart Rate 99 78 Respiratory 16 18 Rate Blood Pressure 148/88 H 111/70 O2 Saturation 95 100 Oxygen O2 Source Room air - Labs Labs: Laboratory Tests 05/07/21 05/07/21 05/07/21 14:42 15:10 15:10 WBC 9.4 RBC 3.74 L Hgb 8.4 L Hct 29.0 L MCV 77.5 L MCH 22.5 L MCHC 29.0 L RDW 17.6 H Plt Count 282 MPV 10.9 H Neut # (Auto) 6.5 Lymph # (Auto) 1.6 [place] # (Auto) 0.6 Eos # (Auto) 0.7 Baso # (Auto) 0.1 Absolute Nucleated RBC 0.00 Nucleated RBC % 0.0 VBG pH VBG pCO2 VBG pO2 VBG HCO3 VBG Total CO2 VBG O2 Saturation VBG Base Excess Sodium 131 L Potassium 4.0 Chloride 100 L Carbon Dioxide 23 Anion Gap 8.0 BUN 11 Creatinine 0.8 Estimated GFR (MDRD) 77 L Glucose 344 H Calcium 8.1 L Total Bilirubin 0.4 AST 10 ALT 12 Alkaline Phosphatase 66 Total Protein 6.0 L Albumin 3.2 Globulin 2.8 Albumin/Globulin Ratio 1.1 Lipase 24 Urine Color YELLOW Urine Clarity CLEAR Urine pH 6.0 Ur Specific [place] 1.015 Urine Protein NEGATIVE Urine Glucose (UA) >=1000 H Urine Ketones NEGATIVE Urine Occult Blood NEGATIVE Urine Nitrite POSITIVE H Urine Bilirubin NEGATIVE Urine Urobilinogen 0.2 (NORMAL) Ur Leukocyte Esterase NEGATIVE Urine RBC None Seen Urine WBC 0-3 Ur Squamous Epith Cells MOD Squamous H Urine Bacteria Moderate H Ur Microscopic Review INDICATED Urine Culture Comments NOT INDICATED Serum Ketones NEGATIVE 05/07/21 15:10 WBC RBC Hgb Hct MCV MCH MCHC RDW Plt Count MPV Neut # (Auto) Lymph # (Auto) [place] # (Auto) Eos # (Auto) Baso # (Auto) Absolute Nucleated RBC Nucleated RBC % VBG pH 7.438 H VBG pCO2 36.6 L VBG pO2 98.9 H VBG HCO3 24.2 VBG Total CO2 25.3 VBG O2 Saturation 94.6 H VBG Base Excess 0.1 Sodium Potassium Chloride Carbon Dioxide Anion Gap BUN Creatinine Estimated GFR (MDRD) Glucose Calcium Total Bilirubin AST ALT Alkaline Phosphatase Total Protein Albumin Globulin Albumin/Globulin Ratio Lipase Urine Color Urine Clarity Urine pH Ur Specific [place] Urine Protein Urine Glucose (UA) Urine Ketones Urine Occult Blood Urine Nitrite Urine Bilirubin Urine Urobilinogen Ur Leukocyte Esterase Urine RBC Urine WBC Ur Squamous Epith Cells Urine Bacteria Ur Microscopic Review Urine Culture Comments Serum Ketones PD MEDICAL DECISION MAKING - ED course Complexity details: reviewed results, re-evaluated patient, considered differential, d/w patient ED course: Headache improved with Toradol and Zofran. Given IV fluids. Tolerating p.o. without difficulty. No DKA. Given insulin here. We will have her follow-up with her doctor for further care. No evidence of sepsis. No evidence of acute infection. UA appears contaminated. Patient counseled regarding signs and symptoms for which I believe and urgent re-evaluation would be necessary. Patient with good understanding of and agreement to plan and is comfortable going home at this time This document was made in part using voice recognition software. While efforts are made to proofread this document, sound alike and grammatical errors may occur. Departure - Departure Disposition: 01 Home, Self Care Clinical Impression: Hyperglycemia due to diabetes mellitus Condition: Good Instructions: ED Hyperglycemia Diabetic Follow-Up: Isatu Belle MD [Primary Care Provider] - Within 1 week Comments: Follow up with your doctor for further care. Return if you worsen. Continue your insulin at home. Discharge Date/Time: 05/07/21 16:25
[2021-05-07 15:04] LABS: BILIRUBIN,URINE NEGATIVE (NEGATIVE); GLUCOSE, URINE (UA) >=1000 mg/dL (NEGATIVE); KETONES,URINE (UA) NEGATIVE (NEGATIVE); LEUKOCYTE ESTERASE, URINE NEGATIVE (NEGATIVE); NITRITE,URINE POSITIVE (NEGATIVE); OCCULT BLOOD,URINE NEGATIVE (NEGATIVE); PROTEIN,URINE NEGATIVE (NEGATIVE); UROBILINOGEN,URINE 0.2 (NORMAL) E.U./dL (NORMAL)
[2021-05-07 15:06] LABS: CLARITY,URINE CLEAR (CLEAR)
[2021-05-07 15:16] LABS: WBC,URINE 0-3 /HPF (0-5)
[2021-05-07 15:17] LABS: BACTERIA,URINE Moderate /HPF (None Seen); RBC,URINE None Seen /HPF (0-5); SQUAMOUS EPITHELIAL CELL,UR MOD Squamous (<= Few)
[2021-05-07 15:17] LABS: BASOPHILS # (AUTO) 0.1 10^3/uL (0.0-0.1); BASOPHILS % (AUTO) 0.6 %; EOSINOPHILS # (AUTO) 0.7 10^3/uL (0.0-0.7); EOSINOPHILS % (AUTO) 7.3 %; HGB - HEMOGLOBIN 8.4 g/dL (12.0-16.0); LYMPHOCYTES # (AUTO) 1.6 10^3/uL (1.5-3.5); LYMPHOCYTES % (AUTO) 16.8 %; MEAN CORPUSCULAR HEMOGLOBIN 22.5 pg (27.0-31.0); MEAN CORPUSCULAR VOLUME 77.5 fL (81.0-99.0); MEAN PLATELET VOLUME 10.9 fL (7.9-10.8); MONOCYTES # (AUTO) 0.6 10^3/uL (0.0-1.0); MONOCYTES % (AUTO) 5.9 %; NEUTROPHILS # (AUTO) 6.5 10^3/uL (1.5-6.6); PLT - PLATELET COUNT 282 10^3/uL (130-450); RED BLOOD COUNT 3.74 10^6/uL (4.20-5.40); RED CELL DISTRIBUTION WIDTH 17.6 % (12.0-15.0); WHITE BLOOD COUNT 9.4 x10^3/uL (4.8-10.8)
[2021-05-07 15:19] LABS: VBG BASE EXCESS 0.1 mmol/L (-2 - +2); VBG HCO3 24.2 mmol/L (23-28); VBG OXYGEN SATURATION 94.6 % (60-80); VBG PCO2 36.6 mmHg (41-51); VBG PH 7.438 (7.31-7.41); VBG PO2 98.9 mmHg (25-47); VBG TOTAL CO2 25.3 mmol/L (24-29)
[2021-05-07 15:28] LABS: KETONES, SERUM (ACETEST) NEGATIVE (NEGATIVE)
[2021-05-07 15:29] LABS: ALBUMIN 3.2 g/dL (3.2-5.5); ALBUMIN/GLOBULIN RATIO 1.1 (1.0-2.2); ALKALINE PHOSPHATASE 66 IU/L (42-121); ALT ALANINE AMINOTRANSFERASE 12 IU/L (10-60); AST ASPARTATE AMINOTRANSFERASE 10 IU/L (10-42); BILIRUBIN,TOTAL 0.4 mg/dL (0.2-1.0); BUN - BLOOD UREA NITROGEN 11 mg/dL (6-20); CALCIUM 8.1 mg/dL (8.5-10.3); CARBON DIOXIDE - CO2 23 mmol/L (21-32); CHLORIDE 100 mmol/L (101-111); CREATININE 0.8 mg/dL (0.4-1.0); GFR - MDRD 77 (>89); GLUCOSE 344 mg/dL (70-100); LIPASE 24 U/L (22-51); SODIUM 131 mmol/L (135-145)
[2021-05-07] MEDS ORDERED: INSULIN REGULAR HUMAN 100 UNIT/1 ML 10 ML MDV IVP STA (15:39)
[2021-05-07 16:26] VITALS: BP 111/70
== END 2021-05-07 16:25 | disposition home or self-care (01) ==
LOC: EDUNIT# → ED 14:29 → SUPCPDRO 14:29 → ED 16:25
DX: E11.42 Type 2 diabetes mellitus with diabetic polyneuropathy (principal); E11.65 Type 2 diabetes mellitus with hyperglycemia; Z79.4 Long term (current) use of insulin
CPT/HCPCS: 36415; 80053; 81001; 82009; 82803; 83690; 85025; 96374; 99283; 99284; J1815; 81003; 87086

== ENCOUNTER 2021-06-25 13:33 | Outpatient (CLI) | payer MEDICARE, MEDICAID ==
[2021-06-25 17:48] LABS: BASOPHILS # (AUTO) 0.1 10^3/uL (0.0-0.1); BASOPHILS % (AUTO) 0.8 %; EOSINOPHILS # (AUTO) 0.1 10^3/uL (0.0-0.7); EOSINOPHILS % (AUTO) 1.7 %; HCT - HEMATOCRIT 31.5 % (37.0-47.0); HGB - HEMOGLOBIN 8.9 g/dL (12.0-16.0); LYMPHOCYTES # (AUTO) 1.3 10^3/uL (1.5-3.5); LYMPHOCYTES % (AUTO) 22.4 %; MEAN CORPUSCULAR HEMOGLOBIN 21.5 pg (27.0-31.0); MEAN CORPUSCULAR HGB CONC 28.3 g/dL (32.0-36.0); MEAN CORPUSCULAR VOLUME 76.1 fL (81.0-99.0); MEAN PLATELET VOLUME 10.7 fL (7.9-10.8); MONOCYTES # (AUTO) 0.6 10^3/uL (0.0-1.0); MONOCYTES % (AUTO) 9.2 %; NEUTROPHILS # (AUTO) 3.9 10^3/uL (1.5-6.6); NEUTROPHILS % (AUTO) 65.1 %; PLT - PLATELET COUNT 518 10^3/uL (130-450); RED BLOOD COUNT 4.14 10^6/uL (4.20-5.40); RED CELL DISTRIBUTION WIDTH 20.2 % (12.0-15.0)
[2021-06-25 18:00] LABS: ALBUMIN 3.6 g/dL (3.2-5.5); ALBUMIN/GLOBULIN RATIO 1.1 (1.0-2.2); ALKALINE PHOSPHATASE 58 IU/L (42-121); ALT ALANINE AMINOTRANSFERASE 17 IU/L (10-60); AST ASPARTATE AMINOTRANSFERASE 16 IU/L (10-42); BILIRUBIN,TOTAL 0.3 mg/dL (0.2-1.0); BUN - BLOOD UREA NITROGEN 8 mg/dL (6-20); CALCIUM 8.6 mg/dL (8.5-10.3); CARBON DIOXIDE - CO2 25 mmol/L (21-32); CHLORIDE 98 mmol/L (101-111); GLUCOSE 246 mg/dL (70-100); POTASSIUM 4.2 mmol/L (3.5-5.0); SODIUM 133 mmol/L (135-145); TOTAL PROTEIN 6.8 g/dL (6.7-8.2)
[2021-06-25 18:10] LABS: KETONES, SERUM (ACETEST) NEGATIVE (NEGATIVE)
[2021-06-25 18:12] LABS: CREATININE 0.6 mg/dL (0.4-1.0); GFR - MDRD 107 (>89)
[2021-06-25 19:01] LABS: BILIRUBIN,URINE NEGATIVE (NEGATIVE); GLUCOSE, URINE (UA) 100 mg/dL (NEGATIVE); KETONES,URINE (UA) TRACE mg/dL (NEGATIVE); LEUKOCYTE ESTERASE, URINE NEGATIVE (NEGATIVE); NITRITE,URINE NEGATIVE (NEGATIVE); OCCULT BLOOD,URINE NEGATIVE (NEGATIVE); PH,URINE 6.5 PH (5.0-7.5); PROTEIN,URINE TRACE mg/dL (NEGATIVE); UROBILINOGEN,URINE 0.2 (NORMAL) E.U./dL (NORMAL)
[2021-06-25 19:05] LABS: CLARITY,URINE CLEAR (CLEAR)
[2021-06-25 19:18] LABS: WBC,URINE 0-3 /HPF (0-5)
[2021-06-25 19:19] LABS: BACTERIA,URINE Moderate /HPF (None Seen); MUCUS,URINE Few Strands; RBC,URINE 0-5 /HPF (0-5); SQUAMOUS EPITHELIAL CELL,UR MANY Squamous (<= Few)
[2021-06-25 19:56] LABS: PLATELET ESTIMATE, MANUAL INCREASED (>450,000) (NORMAL); PLATELET MORPHOLOGY 1+ GIANT PLATELETS (NORMAL); SLIDE REVIEW? Indicated; WBC MORPHOLOGY (MULTIPLE) NORMAL APPEARANCE (NORMAL)
== END 2021-06-25 23:59 | disposition home or self-care (01) ==
LOC: LAB.N 13:33
PROVIDERS: ATTEND Nurse Practitioner
DX: R30.0 Dysuria (principal)
CPT/HCPCS: 36415; 80053; 81001; 82009; 85025; 87086

== ENCOUNTER 2021-06-26 17:31 | Emergency (ER) | payer MEDICARE, MEDICAID ==
[2021-06-26 18:08] LABS: BASOPHILS # (AUTO) 0.1 10^3/uL (0.0-0.1); BASOPHILS % (AUTO) 0.9 %; EOSINOPHILS # (AUTO) 0.3 10^3/uL (0.0-0.7); HCT - HEMATOCRIT 28.7 % (37.0-47.0); HGB - HEMOGLOBIN 8.6 g/dL (12.0-16.0); LYMPHOCYTES # (AUTO) 2.7 10^3/uL (1.5-3.5); LYMPHOCYTES % (AUTO) 38.5 %; MEAN CORPUSCULAR HEMOGLOBIN 22.5 pg (27.0-31.0); MEAN CORPUSCULAR VOLUME 74.9 fL (81.0-99.0); MEAN PLATELET VOLUME 9.4 fL (7.9-10.8); MONOCYTES # (AUTO) 0.6 10^3/uL (0.0-1.0); MONOCYTES % (AUTO) 8.4 %; NEUTROPHILS # (AUTO) 3.3 10^3/uL (1.5-6.6); NEUTROPHILS % (AUTO) 47.8 %; PLT - PLATELET COUNT 448 10^3/uL (130-450); RED BLOOD COUNT 3.83 10^6/uL (4.20-5.40); RED CELL DISTRIBUTION WIDTH 19.8 % (12.0-15.0)
[2021-06-26 18:20] LABS: ALBUMIN 3.3 g/dL (3.2-5.5); ALBUMIN/GLOBULIN RATIO 1.1 (1.0-2.2); BILIRUBIN,TOTAL 0.5 mg/dL (0.2-1.0); CALCIUM 8.4 mg/dL (8.5-10.3); CREATININE 0.6 mg/dL (0.4-1.0); POTASSIUM 3.5 mmol/L (3.5-5.0); TOTAL PROTEIN 6.3 g/dL (6.7-8.2)
[2021-06-26] MEDS ORDERED: IBUPROFEN 600 MG TABLET PO STA (18:24)
--- NOTE | 2021-06-26 18:25 | ED Physician Documentation ---
History of Present Illness - Stated complaint Stated Complaint: WEAK - Chief complaint Chief Complaint: General - Additonal information Additional information: 46-year-old female who is a well-known diabetic to this emergency department was advised to come here for evaluation of a low hemoglobin, hematocrit as well as a sodium. She did present to one of our local walk-in clinics for evaluation of what the patient is concerned may be a urinary infection. She reports that she has been urinating more frequently but is not having dysuria urgency or any fevers, flank pain. Patient is checking her blood sugars about 6 times a day with home glucometer. Typically they are fasting of about 200 with high of about 300. She is adjusting her insulin for the sugars. She denies any vomiting, diarrhea or abdominal pain. She endorses a mild headache right now. Review of Systems Constitutional: denies: Fever, Chills Eyes: reports: Reviewed and negative Ears: reports: Reviewed and negative Nose: reports: Reviewed and negative Throat: reports: Reviewed and negative Cardiac: reports: Reviewed and negative Respiratory: reports: Reviewed and negative GI: reports: Nausea. denies: Abdominal Pain, Vomiting, Diarrhea : reports: Frequency. 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 : Kidney stones HEENT: Chronic vision loss, Chronic sinusitis Psych: Depression Musculoskeletal: Osteoarthritis, Fibromyalgia, Fatigue, Chronic back pain Derm: None - Past Surgical History Past Surgical History: Yes General: Gastric surgery Ortho: Other /RESCUE INSTRUCTOR: section, Endometrial ablation, Tubal ligation HEENT: Tonsil/Adenoidectomy - Present Medications Home Medications: Ambulatory Orders Medication Instructions Recorded Confirmed Prazosin HCl 5 mg PO QPM 01/23/19 03/02/21 Trazodone HCl 300 mg PO QPM 01/23/19 03/02/21 Duloxetine HCl [Cymbalta] 60 mg PO BID 09/15/19 03/02/21 Insulin Aspart [Novolog] 30 - 40 units SQ .SLIDING SCALE 03/30/20 03/02/21 Butalb/Acetaminophen/Caffeine 1 cap PO Q4H PRN 12/16/20 04/11/21 [Fioricet 50-300-40 mg Capsule] Escitalopram Oxalate [Lexapro] 40 mg PO DAILY 11/06/20 03/02/21 Eszopiclone [Lunesta] 3 mg PO QPM PRN 11/06/20 03/02/21 Glucagon,Human Recombinant 1 mg IJ PRN PRN 11/06/20 03/02/21 [Glucagon Emergency Kit] Metoclopramide [Reglan] 10 mg PO Q6H PRN 11/06/20 03/02/21 Mirabegron [Myrbetriq] 50 mg PO DAILY 11/06/20 03/02/21 Pantoprazole Sodium [Protonix] 20 mg PO QDAC 11/06/20 03/02/21 Promethazine [Phenergan] 25 mg PO Q6HR PRN #14 tablet 11/06/20 03/02/21 Simvastatin [Zocor] 20 mg PO QPM 11/06/20 03/02/21 Spironolactone [Aldactone] 100 mg PO DAILY 11/06/20 03/02/21 methocarbamoL [Robaxin-750] 750 mg PO Q6H PRN 11/06/20 03/02/21 Insulin Glargine [Lantus Solostar] 20 unit SQ QDAC #3 pe 02/21/21 03/02/21 Insulin Regular, Human [Novolin R 5 unit SQ TIDWM #2 pe 02/21/21 03/02/21 Flexpen] Levothyroxine [Synthroid] 125 mcg PO DAILY 02/21/21 03/02/21 Pen Needle, Diabetic [Insulin Pen 1 each MC BID #150 ndl 02/21/21 03/02/21 Needle] Sulfamethox/Trimeth 800/160 1 tab PO BID 03/08/21 03/08/21 [Bactrim Ds] Ibuprofen [Motrin] 800 mg PO Q8H PRN #10 tablet 03/14/21 Metoclopramide [Reglan] 10 mg PO Q6H PRN #10 tablet 03/14/21 - Allergies Allergies/Adverse Reactions: Allergies Allergy/AdvReac Type Severity Reaction Status Date / Time carisoprodol [From Soma] Allergy Unknown Verified 06/26/21 17:34 divalproex sodium Allergy Rash Verified 06/26/21 17:34 [From Depakote] gabapentin [From Neurontin] Allergy Edema Verified 06/26/21 17:34 lidocaine Allergy Unknown Verified 06/26/21 17:34 nitrofurantoin Allergy Rash Verified 06/26/21 17:34 macrocrystalline * [From Macrodantin] nortriptyline Allergy Unknown Verified 06/26/21 17:34 ondansetron [From Zofran] Allergy Hives Verified 06/26/21 17:34 ondansetron HCl * Allergy Hives Verified 06/26/21 17:34 [From Zofran (as hydrochloride)] pregabalin [From Lyrica] Allergy Headache Verified 06/26/21 17:34 - Social History Does the pt smoke?: Yes Smoking Status: Current every day smoker Does the pt drink ETOH?: No Does the pt have substance abuse?: No - Immunizations Immunizations are current?: Yes Immunizations: TDAP >10years/unknown - POLST Patient has POLST: No POLST Status: DNR PD ED PE NORMAL - General General: Alert and oriented X 3, No acute distress, Well developed/nourished - HEENT HEENT: Moist mucous membranes, Pharynx benign - Neck Neck: Supple, no meningeal sign - Cardiac Cardiac: RRR, No murmur - Respiratory Respiratory: Clear bilaterally - Abdomen Abdomen: Normal bowel sounds, Soft, Non tender, Non distended - Back Back: No CVA TTP, No spinal TTP Results - Vitals Vitals: Vital Signs - 24 hr 06/26/21 17:34 Temperature 36.5 C Heart Rate 100 Respiratory 16 Rate Blood Pressure 132/85 H O2 Saturation 96 Oxygen O2 Source Room air - Labs Labs: Laboratory Tests 06/26/21 06/26/21 06/26/21 18:00 18:00 18:17 WBC 7.0 RBC 3.83 L Hgb 8.6 L Hct 28.7 L MCV 74.9 L MCH 22.5 L MCHC 30.0 L RDW 19.8 H Plt Count 448 MPV 9.4 Neut # (Auto) 3.3 Lymph # (Auto) 2.7 [place] # (Auto) 0.6 Eos # (Auto) 0.3 Baso # (Auto) 0.1 Absolute Nucleated RBC 0.00 Nucleated RBC % 0.0 Sodium 134 L Potassium 3.5 Chloride 99 L Carbon Dioxide 25 Anion Gap 10.0 BUN 8 Creatinine 0.6 Estimated GFR (MDRD) 107 Glucose 204 H Calcium 8.4 L Total Bilirubin 0.5 AST 14 ALT 17 Alkaline Phosphatase 56 Total Protein 6.3 L Albumin 3.3 Globulin 3.0 Albumin/Globulin Ratio 1.1 Lipase 19 L Urine Color YELLOW Urine Clarity CLEAR Urine pH 6.5 Ur Specific [place] 1.020 Urine Protein NEGATIVE Urine Glucose (UA) >=1000 H Urine Ketones NEGATIVE Urine Occult Blood NEGATIVE Urine Nitrite NEGATIVE Urine Bilirubin NEGATIVE Urine Urobilinogen 0.2 (NORMAL) Ur Leukocyte Esterase NEGATIVE Ur Microscopic Review NOT INDICATED Urine Culture Comments NOT INDICATED PD MEDICAL DECISION MAKING - ED course Complexity details: reviewed results, re-evaluated patient, d/w patient ED course: 46-year-old female was advised to come to the ER for evaluation of anemia, hyponatremia that was noted on lab testing at the walk-in clinic. She is a well-known diabetic to our emergency department. Though she is fairly anemic with a hemoglobin of 8.6 This is well within her typical baseline. She is denying melena or heavy menses. She is noted to have a very Mild hyponatremia of 134. However this is consistent with a history of hyperglycemia and diabetes. Her urine today does not suggest infection. At this time there is no emergent medical concerns. Jammie continues to manage her diabetes by checking her sugars frequently and adjusting her insulin as necessary. Nothing in the labs or exam to suggest DKA. Patient is going to be discharged home. Emergent routine return precautions were discussed. Departure - Departure Disposition: 01 Home, Self Care Clinical Impression: Poorly controlled diabetes mellitus Anemia Qualifiers: Anemia type: other cause Other causes of anemia: other cause, not classified Qualified Code(s): D64.89 - Other specified anemias Condition: Stable Record reviewed to determine appropriate education?: Yes Comments: Jammie you were sent to the ER to reevaluate your labs. You do have anemia. This is a low blood count. This is likely due to long-term diabetes. I would like you to discuss it with your primary doctor to determine if you should be started on iron therapy or further testing is evaluated. However your anemia is not any different than it typically is. Your urine today shows no signs of infection. I would encourage you to also follow-up with your film critic regarding her diabetes because it can be better controlled than it is currently.
[2021-06-26 18:29] LABS: BILIRUBIN,URINE NEGATIVE (NEGATIVE); CLARITY,URINE CLEAR (CLEAR); GLUCOSE, URINE (UA) >=1000 mg/dL (NEGATIVE); KETONES,URINE (UA) NEGATIVE (NEGATIVE); LEUKOCYTE ESTERASE, URINE NEGATIVE (NEGATIVE); NITRITE,URINE NEGATIVE (NEGATIVE); OCCULT BLOOD,URINE NEGATIVE (NEGATIVE); PH,URINE 6.5 PH (5.0-7.5); PROTEIN,URINE NEGATIVE (NEGATIVE); UROBILINOGEN,URINE 0.2 (NORMAL) E.U./dL (NORMAL)
[2021-06-26 19:04] VITALS: BP 137/87
== END 2021-06-26 19:05 | disposition home or self-care (01) ==
LOC: ED 17:31
DX: E10.65 Type 1 diabetes mellitus with hyperglycemia (principal); E10.42 Type 1 diabetes mellitus with diabetic polyneuropathy; Z79.4 Long term (current) use of insulin; E87.1 Hypo-osmolality and hyponatremia; D64.89 Other specified anemias; F17.200 Nicotine dependence, unspecified, uncomplicated
CPT/HCPCS: 36415; 80053; 81003; 83690; 85025; 99283; 99284; A9270; 81001; 82009; 83605; 87086

== ENCOUNTER 2021-09-02 08:00 | Outpatient (CLI) | payer MEDICARE, MEDICAID | END 2021-09-02 23:59 | disposition home or self-care (01) | LOC: LAB.N 08:00 | PROVIDERS: ATTEND Physician Assistant Medical | DX: R35.0 Frequency of micturition (principal) | CPT/HCPCS: 82962 ==

== ENCOUNTER 2021-09-02 10:47 | Outpatient (CLI) | payer MEDICARE, MEDICAID | END 2021-09-02 23:59 | LOC: LAB.N 10:47 | PROVIDERS: ATTEND Physician Assistant Medical | DX: R35.0 Frequency of micturition (principal) | CPT/HCPCS: 87086 ==

== ENCOUNTER 2021-09-04 12:00 | Emergency (ER) | payer MEDICARE, MEDICAID ==
[2021-09-04] MEDS ORDERED: INSULIN REGULAR HUMAN 100 UNIT/1 ML 10 ML MDV SUBQ STA (12:32)
[2021-09-04] MEDS ORDERED: BUTALB/ACETAM/CAFF 50/325/40MG TABLET PO STA (12:33)
--- NOTE | 2021-09-04 12:36 | ED Physician Documentation ---
History of Present Illness - Stated complaint Stated Complaint: HIGH BLOOD SUGAR - Chief complaint Chief Complaint: General - History obtained from History obtained from: Patient - History of Present Illness Timing: Today Pain level max: 5 Pain level now: 5 - Additonal information Additional information: Patient is a 46-year-old female with a longstanding history of diabetes who presents to the emergency department stating her blood sugar was 404 at home today. She took 7 units of insulin and came into the emergency department. No abdominal pain. No vomiting. No diarrhea. No fevers. She states that she does have a mild headache. She is otherwise asymptomatic at the current time. 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 : Kidney stones HEENT: Chronic vision loss, Chronic sinusitis Psych: Depression Musculoskeletal: Osteoarthritis, Fibromyalgia, Fatigue, Chronic back pain Derm: None - Past Surgical History Past Surgical History: Yes General: Gastric surgery Ortho: Other /TRACK LEADER: section, Endometrial ablation, Tubal ligation HEENT: Tonsil/Adenoidectomy - Present Medications Home Medications: Ambulatory Orders Medication Instructions Recorded Confirmed Prazosin HCl 5 mg PO QPM 01/23/19 03/02/21 Trazodone HCl 300 mg PO QPM 01/23/19 03/02/21 Duloxetine HCl [Cymbalta] 60 mg PO BID 09/15/19 03/02/21 Insulin Aspart [Novolog] 30 - 40 units SQ .SLIDING SCALE 03/30/20 03/02/21 Butalb/Acetaminophen/Caffeine 1 cap PO Q4H PRN 11/06/20 03/02/21 [Fioricet 50-300-40 mg Capsule] Escitalopram Oxalate [Lexapro] 40 mg PO DAILY 11/06/20 03/02/21 Eszopiclone [Lunesta] 3 mg PO QPM PRN 11/06/20 03/02/21 Glucagon,Human Recombinant 1 mg IJ PRN PRN 11/06/20 03/02/21 [Glucagon Emergency Kit] Metoclopramide [Reglan] 10 mg PO Q6H PRN 11/06/20 03/02/21 Mirabegron [Myrbetriq] 50 mg PO DAILY 11/06/20 03/02/21 Pantoprazole Sodium [Protonix] 20 mg PO QDAC 11/06/20 03/02/21 Promethazine [Phenergan] 25 mg PO Q6HR PRN #14 tablet 11/06/20 03/02/21 Simvastatin [Zocor] 20 mg PO QPM 11/06/20 03/02/21 Spironolactone [Aldactone] 100 mg PO DAILY 11/06/20 03/02/21 methocarbamoL [Robaxin-750] 750 mg PO Q6H PRN 11/06/20 03/02/21 Insulin Glargine [Lantus Solostar] 20 unit SQ QDAC #3 pe 02/21/21 03/02/21 Insulin Regular, Human [Novolin R 5 unit SQ TIDWM #2 pe 02/21/21 03/02/21 Flexpen] Levothyroxine [Synthroid] 125 mcg PO DAILY 02/21/21 03/02/21 Pen Needle, Diabetic [Insulin Pen 1 each MC BID #150 ndl 02/21/21 03/02/21 Needle] Sulfamethox/Trimeth 800/160 1 tab PO BID 03/08/21 03/08/21 [Bactrim Ds] Ibuprofen [Motrin] 800 mg PO Q8H PRN #10 tablet 03/14/21 Metoclopramide [Reglan] 10 mg PO Q6H PRN #10 tablet 03/14/21 - Allergies Allergies/Adverse Reactions: Allergies Allergy/AdvReac Type Severity Reaction Status Date / Time carisoprodol [From Soma] Allergy Unknown Verified 09/04/21 12:11 divalproex sodium Allergy Rash Verified 09/04/21 12:11 [From Depakote] gabapentin [From Neurontin] Allergy Edema Verified 09/04/21 12:11 lidocaine Allergy Unknown Verified 09/04/21 12:11 nitrofurantoin Allergy Rash Verified 09/04/21 12:11 macrocrystalline * [From Macrodantin] nortriptyline Allergy Unknown Verified 09/04/21 12:11 ondansetron [From Zofran] Allergy Hives Verified 09/04/21 12:11 ondansetron HCl * Allergy Hives Verified 09/04/21 12:11 [From Zofran (as hydrochloride)] pregabalin [From Lyrica] Allergy Headache Verified 09/04/21 12:11 - Social History Does the pt smoke?: Yes Smoking Status: Current every day smoker Does the pt drink ETOH?: No Does the pt have substance abuse?: No - Immunizations Immunizations are current?: Yes Immunizations: TDAP >10years/unknown - POLST Patient has POLST: No POLST Status: DNR PD ED PE NORMAL - Vitals Vital signs reviewed: Yes - General General: Alert and oriented X 3, No acute distress, Well developed/nourished - HEENT HEENT: PERRL, Moist mucous membranes - Neck Neck: Supple, no meningeal sign, No bony TTP - Cardiac Cardiac: RRR, Strong equal pulses - Respiratory Respiratory: No respiratory distress, Clear bilaterally - Abdomen Abdomen: Normal bowel sounds, Soft, Non tender, Non distended - Back Back: No spinal TTP - Derm Derm: Warm and dry - Extremities Extremities: No edema, No calf tenderness / cord - Neuro Neuro: Alert and oriented X 3, retail store clerk 2-12 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, No motor deficit, No sensory deficit, Normal speech Eye Opening: Spontaneous Motor: Obeys Commands Verbal: Oriented GCS Score: 15 - Psych Psych: Normal mood, Normal affect Results - Vitals Vitals: Vital Signs - 24 hr 09/04/21 09/04/21 12:02 12:30 Temperature 36.8 C 36.8 C Heart Rate 101 H 101 H Respiratory 16 16 Rate Blood Pressure 150/81 H 150/81 H O2 Saturation 96 96 Oxygen O2 Source Room air - Labs Labs: Laboratory Tests 09/04/21 12:09 POC Whole Bld Glucose 344 H PD MEDICAL DECISION MAKING - ED course Complexity details: reviewed results, re-evaluated patient, considered differential, d/w patient ED course: Patient with asymptomatic mild hyperglycemia. She is currently being treated for UTI with Bactrim. Like the infection is causing the higher than normal blood sugars. Her last hemoglobin A1c was about 12.4, this would correlate to an average blood sugar of around 310 at home. No evidence of DKA today. Given Fioricet for the headache. We will have her follow-up with her doctor for further care. Patient counseled regarding signs and symptoms for which I believe and urgent re-evaluation would be necessary. Patient with good understanding of and agreement to plan and is comfortable going home at this time This document was made in part using voice recognition software. While efforts are made to proofread this document, sound alike and grammatical errors may occur. Departure - Departure Disposition: 01 Home, Self Care Clinical Impression: Hyperglycemia due to diabetes mellitus Condition: Good Instructions: ED Hyperglycemia Diabetic Follow-Up: Isatu Belle MD [Primary Care Provider] - Within 1 week Comments: Continue your current medications at home. Follow-up with your doctor for further care. Return if you worsen.
[2021-09-04 12:57] VITALS: BP 158/73
== END 2021-09-04 13:02 | disposition home or self-care (01) ==
LOC: ED 12:00
DX: E10.65 Type 1 diabetes mellitus with hyperglycemia (principal); R51.9 Headache, unspecified; E10.42 Type 1 diabetes mellitus with diabetic polyneuropathy; Z79.4 Long term (current) use of insulin; F17.200 Nicotine dependence, unspecified, uncomplicated; Z66 Do not resuscitate
CPT/HCPCS: 99282; 99284; A9270; J1815

== ENCOUNTER 2021-09-18 18:18 | Observation (INO) | payer MEDICARE, MEDICAID ==
[2021-09-18] MEDS ORDERED: ONDANSETRON 4 MG/2 ML VIAL IVP STA (18:34)
[2021-09-18] MEDS ORDERED: DEXTROSE 50% ABBOJECT 25 GM/50 ML SYRINGE IVP STA ×2 (18:34→19:47)
[2021-09-18] MEDS ORDERED: PROMETHAZINE INJ 25 MG in SODIUM CHLORIDE 0.9% 50 ML IV STA (18:51)
--- NOTE | 2021-09-18 18:58 | ED Physician Documentation ---
PD HPI ALTERED MENTAL STATUS - Stated complaint Stated Complaint: LOW BLOOD SUGAR - Chief complaint Chief Complaint: General - History obtained from History obtained from: Patient - History of Present Illness Timing - onset: Today (this afternoon, having feeling of nausea without vomiting. Less PO intake. Had taken her morning Lantus but did not take Novolog due to decreased intake. Still noted low blood sugar. Too nauseated for PO.) Timing - duration: Hours (onset of nausea late morning and through afternoon. No abd pain nor emesis nor diarrhea.) Timing - details: Gradual onset, Still present Quality / character: Other (general weakness.) Associated symptoms: No: Fever, Headache Contributing factors: Diabetic, Recent illness (onset of nausea without vomiting nor abd pain late morning/today, that has persisted. No diarrhea.). No: Recent med change Basline status: Alert and oriented X 3, Ambulatory Treatment [facility]: Accucheck Similar symptoms before: No diagnosis (most often is here with elevated blood sugar/illness. She denies recent change in insulin regimen or other med changes. Less calorie intake today due to nausea.) Recently seen: Not recently seen Review of Systems Constitutional: denies: Fever, Chills, Myalgias Nose: denies: Rhinorrhea / runny nose, Congestion Throat: denies: Sore throat Cardiac: denies: Chest pain / pressure Respiratory: denies: Dyspnea, Cough GI: reports: Nausea. denies: Abdominal Pain, Vomiting, Constipation, Diarrhea, Bloody / black stool : denies: Dysuria Skin: denies: Rash, Lesions Neurologic: reports: Generalized weakness. 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 : Kidney stones HEENT: Chronic vision loss, Chronic sinusitis Psych: Depression Musculoskeletal: Osteoarthritis, Fibromyalgia, Fatigue, Chronic back pain Derm: None - Past Surgical History Past Surgical History: Yes General: Gastric surgery Ortho: Other /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: section, Endometrial ablation, Tubal ligation HEENT: Tonsil/Adenoidectomy - Present Medications Home Medications: Ambulatory Orders Medication Instructions Recorded Confirmed Prazosin HCl 5 mg PO QPM 01/23/19 09/18/21 Trazodone HCl 300 mg PO QPM 01/23/19 09/18/21 Duloxetine HCl [Cymbalta] 60 mg PO BID 09/15/19 09/18/21 Insulin Aspart [Novolog] 30 - 40 units SQ .SLIDING SCALE 03/30/20 09/18/21 Butalb/Acetaminophen/Caffeine 1 cap PO Q4H PRN 11/06/20 09/18/21 [Fioricet 50-300-40 mg Capsule] Escitalopram Oxalate [Lexapro] 40 mg PO DAILY 11/06/20 09/18/21 Eszopiclone [Lunesta] 3 mg PO QPM PRN 11/06/20 09/18/21 Glucagon,Human Recombinant 1 mg IJ PRN PRN 11/06/20 09/18/21 [Glucagon Emergency Kit] Metoclopramide [Reglan] 10 mg PO Q6H PRN 11/06/20 09/18/21 Mirabegron [Myrbetriq] 50 mg PO DAILY 11/06/20 09/18/21 Pantoprazole Sodium [Protonix] 20 mg PO QDAC 11/06/20 09/18/21 Promethazine [Phenergan] 25 mg PO Q6HR PRN #14 tablet 11/06/20 09/18/21 Simvastatin [Zocor] 20 mg PO QPM 11/06/20 09/18/21 Spironolactone [Aldactone] 100 mg PO DAILY 11/06/20 09/18/21 methocarbamoL [Robaxin-750] 750 mg PO Q6H PRN 11/06/20 09/18/21 Insulin Glargine [Lantus Solostar] 20 unit SQ QDAC #3 pe 02/21/21 09/18/21 Insulin Regular, Human [Novolin R 5 unit SQ TIDWM #2 pe 02/21/21 09/18/21 Flexpen] Levothyroxine [Synthroid] 125 mcg PO DAILY 02/21/21 09/18/21 Pen Needle, Diabetic [Insulin Pen 1 each MC BID #150 ndl 02/21/21 09/18/21 Needle] Sulfamethox/Trimeth 800/160 1 tab PO BID 03/08/21 09/18/21 [Bactrim Ds] Ibuprofen [Motrin] 800 mg PO Q8H PRN #10 tablet 03/14/21 09/18/21 Metoclopramide [Reglan] 10 mg PO Q6H PRN #10 tablet 03/14/21 09/18/21 - Allergies Allergies/Adverse Reactions: Allergies Allergy/AdvReac Type Severity Reaction Status Date / Time carisoprodol [From Soma] Allergy Unknown Verified 09/18/21 18:22 divalproex sodium Allergy Rash Verified 09/18/21 18:22 [From Depakote] gabapentin [From Neurontin] Allergy Edema Verified 09/18/21 18:22 lidocaine Allergy Unknown Verified 09/18/21 18:22 nitrofurantoin Allergy Rash Verified 09/18/21 18:22 macrocrystalline * [From Macrodantin] nortriptyline Allergy Unknown Verified 09/18/21 18:22 ondansetron [From Zofran] Allergy Hives Verified 09/18/21 18:22 ondansetron HCl * Allergy Hives Verified 09/18/21 18:22 [From Zofran (as hydrochloride)] pregabalin [From Lyrica] Allergy Headache Verified 09/18/21 18:22 - Social History Does the pt smoke?: Yes Smoking Status: Current every day smoker Does the pt drink ETOH?: No Does the pt have substance abuse?: No - Immunizations Immunizations are current?: Yes Immunizations: TDAP >10years/unknown - POLST Patient has POLST: No POLST Status: DNR PD ED PE NORMAL - Vitals Vital signs reviewed: Yes - General General: Alert and oriented X 3, Well developed/nourished, Other (holding emesis bag) - HEENT HEENT: Atraumatic, Pharynx benign - Neck Neck: Supple, no meningeal sign, No adenopathy - Cardiac Cardiac: RRR (borderline tachycardic), No murmur - Respiratory Respiratory: No respiratory distress, Clear bilaterally - Abdomen Abdomen: Normal bowel sounds, Soft, Non tender, Non distended - Female Female : Deferred - Rectal Rectal: Deferred - Back Back: No CVA TTP - Derm Derm: Normal color, Warm and dry - Extremities Extremities: No tenderness to palpate, No edema, No calf tenderness / cord - Neuro Neuro: Alert and oriented X 3, No motor deficit, Normal speech Results - Vitals Vitals: Vital Signs - 24 hr 10/28/21 10/28/21 10/28/21 18:22 18:50 19:55 Temperature 36.5 C Heart Rate 100 108 H 99 Respiratory 18 14 16 Rate Blood Pressure 139/67 H 136/70 H 154/80 H O2 Saturation 98 96 99 09/18/21 21:00 Temperature Heart Rate 104 H Respiratory 16 Rate Blood Pressure 145/80 H O2 Saturation 98 Oxygen O2 Source Room air - Labs Labs: Laboratory Tests 09/18/21 09/18/21 09/18/21 18:26 18:33 18:34 WBC 17.4 H RBC 3.79 L Hgb 7.9 L Hct 28.7 L MCV 75.7 L MCH 20.8 L MCHC 27.5 L RDW 19.1 H Plt Count 690 H MPV 10.3 Neut # (Auto) 12.4 H Lymph # (Auto) 2.5 [place] # (Auto) 1.5 H Eos # (Auto) 0.8 H Baso # (Auto) 0.1 Absolute Nucleated RBC 0.00 Nucleated RBC % 0.0 Sodium Potassium Chloride Carbon Dioxide Anion Gap BUN Creatinine Estimated GFR (MDRD) Glucose POC Whole Bld Glucose 48 L* Calcium Urine Color STRAW Urine Clarity CLEAR Urine pH 5.5 Ur Specific [place] <=1.005 Urine Protein NEGATIVE Urine Glucose (UA) NEGATIVE Urine Ketones NEGATIVE Urine Occult Blood NEGATIVE Urine Nitrite NEGATIVE Urine Bilirubin NEGATIVE Urine Urobilinogen 0.2 (NORMAL) Ur Leukocyte Esterase NEGATIVE Ur Microscopic Review NOT INDICATED Urine Culture Comments NOT INDICATED Nasal Adenovirus (PCR) Nasal B. parapertussis DNA (PCR) Nasal Coronavir 229E PCR Nasal Coronavir HKU1 PCR Nasal Coronavir NL63 PCR Nasal Coronavir OC43 PCR Nasal Enterovir/Rhinovir PCR Nasal Influenza B PCR Nasal Influenza A PCR Nasal Parainfluen 1 PCR Nasal Parainfluen 2 PCR Nasal Parainfluen 3 PCR Nasal Parainfluen 4 PCR Nasal RSV (PCR) Nasal B.pertussis DNA PCR Nasal C.pneumoniae (PCR) Lico Human Metapneumo PCR Nasal M.pneumoniae (PCR) Nasal SARS-CoV-2 (PCR) 09/18/21 09/18/21 09/18/21 18:45 19:09 20:18 WBC RBC Hgb Hct MCV MCH MCHC RDW Plt Count MPV Neut # (Auto) Lymph # (Auto) [place] # (Auto) Eos # (Auto) Baso # (Auto) Absolute Nucleated RBC Nucleated RBC % Sodium 142 Potassium 3.4 L Chloride 111 Carbon Dioxide 21 Anion Gap 10.0 BUN 11 Creatinine 0.9 Estimated GFR (MDRD) 67 L Glucose 64 L POC Whole Bld Glucose 88 60 L* Calcium 9.0 Urine Color Urine Clarity Urine pH Ur Specific [place] Urine Protein Urine Glucose (UA) Urine Ketones Urine Occult Blood Urine Nitrite Urine Bilirubin Urine Urobilinogen Ur Leukocyte Esterase Ur Microscopic Review Urine Culture Comments Nasal Adenovirus (PCR) Nasal B. parapertussis DNA (PCR) Nasal Coronavir 229E PCR Nasal Coronavir HKU1 PCR Nasal Coronavir NL63 PCR Nasal Coronavir OC43 PCR Nasal Enterovir/Rhinovir PCR Nasal Influenza B PCR Nasal Influenza A PCR Nasal Parainfluen 1 PCR Nasal Parainfluen 2 PCR Nasal Parainfluen 3 PCR Nasal Parainfluen 4 PCR Nasal RSV (PCR) Nasal B.pertussis DNA PCR Nasal C.pneumoniae (PCR) Lico Human Metapneumo PCR Nasal M.pneumoniae (PCR) Nasal SARS-CoV-2 (PCR) 09/18/21 09/18/21 09/18/21 21:15 21:31 22:41 WBC RBC Hgb Hct MCV MCH MCHC RDW Plt Count MPV Neut # (Auto) Lymph # (Auto) [place] # (Auto) Eos # (Auto) Baso # (Auto) Absolute Nucleated RBC Nucleated RBC % Sodium Potassium Chloride Carbon Dioxide Anion Gap BUN Creatinine Estimated GFR (MDRD) Glucose POC Whole Bld Glucose 51 L* 51 L* Calcium Urine Color Urine Clarity Urine pH Ur Specific [place] Urine Protein Urine Glucose (UA) Urine Ketones Urine Occult Blood Urine Nitrite Urine Bilirubin Urine Urobilinogen Ur Leukocyte Esterase Ur Microscopic Review Urine Culture Comments Nasal Adenovirus (PCR) NOT DETECTED Nasal B. parapertussis DNA (PCR) NOT DETECTED Nasal Coronavir 229E PCR NOT DETECTED Nasal Coronavir HKU1 PCR NOT DETECTED Nasal Coronavir NL63 PCR NOT DETECTED Nasal Coronavir OC43 PCR NOT DETECTED Nasal Enterovir/Rhinovir PCR NOT DETECTED Nasal Influenza B PCR NOT DETECTED Nasal Influenza A PCR NOT DETECTED Nasal Parainfluen 1 PCR NOT DETECTED Nasal Parainfluen 2 PCR NOT DETECTED Nasal Parainfluen 3 PCR NOT DETECTED Nasal Parainfluen 4 PCR NOT DETECTED Nasal RSV (PCR) NOT DETECTED Nasal B.pertussis DNA PCR NOT DETECTED Nasal C.pneumoniae (PCR) NOT DETECTED Lico Human Metapneumo PCR NOT DETECTED Nasal M.pneumoniae (PCR) NOT DETECTED Nasal SARS-CoV-2 (PCR) NOT DETECTED - Rads (name of study) chest xray Radiology: Prelim report reviewed (no infiltrates. ), See rad report PD MEDICAL DECISION MAKING - ED course Complexity details: reviewed results (Normal urine and CXR. Has elevated WBC on blood test, but nonspecific of course. Consider whether low sugar is just poor calorie intake today versus also increased use if early infection. ), re- evaluated patient (She has been in the ER now over 4 hours and despite dextrose supplements has still remained at the 50-60 range blood sugar. She is feeling nauseous still with only some little bit of crackers and juice oral intake. Still no abdominal pain. I am concerned this may take longer time and so s/w Hosp.), considered differential (nausea without vomiting. General weakness feeling. No fever. consider some gastritis, or viral GE. This is affecting her blood sugar. ), d/w patient Departure - Departure Disposition: ED Place in Observation Clinical Impression: Hypoglycemia due to insulin, Nausea, Leukocytosis Condition: Stable Discharge Date/Time: 09/18/21 23:24
[2021-09-18 19:02] LABS: CREATININE 0.9 mg/dL (0.4-1.0); POTASSIUM 3.4 mmol/L (3.5-5.0)
[2021-09-18] MEDS ORDERED: DEXTROSE 25% ABBOJECT 2.5 GM/10 ML SYRINGE IVP STA (19:16)
[2021-09-18] MEDS ORDERED: DROPERIDOL 5 MG/2 ML VIAL IVP STA (19:17)
[2021-09-18] MEDS ORDERED: LACTATED RINGERS 1,000 ML IV STA (19:17)
[2021-09-18] MEDS ORDERED: PROMETHAZINE 25 MG/1 ML VIAL ONE (19:19)
[2021-09-18 19:33] LABS: BILIRUBIN,URINE NEGATIVE (NEGATIVE); GLUCOSE, URINE (UA) NEGATIVE (NEGATIVE); KETONES,URINE (UA) NEGATIVE (NEGATIVE); LEUKOCYTE ESTERASE, URINE NEGATIVE (NEGATIVE); NITRITE,URINE NEGATIVE (NEGATIVE); OCCULT BLOOD,URINE NEGATIVE (NEGATIVE); PH,URINE 5.5 PH (5.0-7.5); PROTEIN,URINE NEGATIVE (NEGATIVE); UROBILINOGEN,URINE 0.2 (NORMAL) E.U./dL (NORMAL)
[2021-09-18 19:34] LABS: CLARITY,URINE CLEAR (CLEAR)
[2021-09-18] MEDS ORDERED: DEXTROSE 10% 1,000 ML IV STA (20:25)
[2021-09-18 20:32] LABS: BASOPHILS # (AUTO) 0.1 10^3/uL (0.0-0.1); BASOPHILS % (AUTO) 0.6 %; EOSINOPHILS # (AUTO) 0.8 10^3/uL (0.0-0.7); EOSINOPHILS % (AUTO) 4.8 %; HCT - HEMATOCRIT 28.7 % (37.0-47.0); HGB - HEMOGLOBIN 7.9 g/dL (12.0-16.0); LYMPHOCYTES # (AUTO) 2.5 10^3/uL (1.5-3.5); LYMPHOCYTES % (AUTO) 14.6 %; MEAN CORPUSCULAR HEMOGLOBIN 20.8 pg (27.0-31.0); MEAN CORPUSCULAR HGB CONC 27.5 g/dL (32.0-36.0); MEAN CORPUSCULAR VOLUME 75.7 fL (81.0-99.0); MEAN PLATELET VOLUME 10.3 fL (7.9-10.8); MONOCYTES # (AUTO) 1.5 10^3/uL (0.0-1.0); MONOCYTES % (AUTO) 8.4 %; NEUTROPHILS # (AUTO) 12.4 10^3/uL (1.5-6.6); NEUTROPHILS % (AUTO) 71.1 %; PLT - PLATELET COUNT 690 10^3/uL (130-450); RED BLOOD COUNT 3.79 10^6/uL (4.20-5.40); RED CELL DISTRIBUTION WIDTH 19.1 % (12.0-15.0); WHITE BLOOD COUNT 17.4 x10^3/uL (4.8-10.8)
--- NOTE | 2021-09-18 22:16 | XRAY Report ---
PROCEDURE: Chest 1 View X-Ray INDICATIONS: elevated white count/ low sugar TECHNIQUE: One view of the chest was acquired. COMPARISON: None currently available FINDINGS: Surgical changes and devices: None. Lungs and pleura: No pleural effusions or pneumothorax. Lungs are clear. Mediastinum: Mediastinal contours appear normal. Heart size is normal. Bones and chest wall: No suspicious bony lesions. Chronic appearing right-sided lateral rib fractur es. Overlying soft tissues appear unremarkable. IMPRESSION: No acute cardiopulmonary disease. Reviewed by: Karolina Wells MD on 09/18/2021 10:15 PM PDT Approved by: Karolina Wells MD on 09/18/2021 10:15 PM PDT Station ID: [id number]
[2021-09-18 22:18] LABS: B. PARAPERTUSSIS- RESP PCR PAN NOT DETECTED; B. PERTUSSIS- RESP PCR PANEL NOT DETECTED; C. PNEUMONIAE- RESP PCR PANEL NOT DETECTED; CORONAVIRUS 229E-RESP PCR NOT DETECTED; CORONAVIRUS HKU1-RESP PCR NOT DETECTED; CORONAVIRUS NL63-RESP PCR NOT DETECTED; CORONAVIRUS OC43-RESP PCR NOT DETECTED; HUMAN METAPNEUMOVIRUS NOT DETECTED; INFLUENZA A- RESP PCR PANEL NOT DETECTED; INFLUENZA B - RESP PCR PANEL NOT DETECTED; M. PNEUMONIAE- RESP PCR PANEL NOT DETECTED; PARAINFLUENZA VIRUS 1 NOT DETECTED; PARAINFLUENZA VIRUS 2 NOT DETECTED; PARAINFLUENZA VIRUS 3 NOT DETECTED; PARAINFLUENZA VIRUS 4 NOT DETECTED; RHINOVIRUS/ENTEROVIRUS NOT DETECTED; RSV- RESP PCR PANEL NOT DETECTED; SARS-CoV-2 -RESP PCR PANEL NOT DETECTED
[2021-09-18] MEDS ORDERED: SODIUM CHLORIDE FLUSH 0.9% 10 ML SYRINGE IVP PRN (22:42)
[2021-09-18] MEDS ORDERED: PROCHLORPERAZINE 10 MG/2 ML VIAL IVP PRN (22:42)
[2021-09-18] MEDS ORDERED: ONDANSETRON ODT 4 MG TABLET TL PRN (22:42)
[2021-09-18] MEDS ORDERED: ONDANSETRON 4 MG/2 ML VIAL IVP PRN (22:42)
[2021-09-18] MEDS ORDERED: ZOLPIDEM 5 MG TABLET PO PRN (22:46)
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
[2021-09-19 00:27] LABS: AMPHETAMINE SCREEN,URINE NEGATIVE (NEGATIVE); BARBITURATE SCREEN,UR POSITIVE (NEGATIVE); BENZODIAZEPINES SCREEN, URINE NEGATIVE (NEGATIVE); COCAINE SCREEN URINE NEGATIVE (NEGATIVE); METHADONE SCREEN, URINE NEGATIVE (NEGATIVE); METHAMPHETAMINES SCREEN, URINE NEGATIVE (NEGATIVE); MUDS CUTOFF CONCENTRATIONS CUTOFF CONC BELOW:; OPIATE SCREEN, URINE NEGATIVE (NEGATIVE); OXYCODONE SCREEN, URINE NEGATIVE (NEGATIVE); PROPOXYPHENE SCREEN, URINE NEGATIVE (NEGATIVE); THC CANNABINOID SCREEN, URINE NEGATIVE (NEGATIVE); TRICYCLIC ANTIDEPRESSANT,URINE NEGATIVE (NEGATIVE)
[2021-09-19] MEDS: SODIUM CHLORIDE FLUSH 0.9% 10 ML SYRINGE IVP SCH ×2 (00:44→08:30)
[2021-09-19] MEDS: INSULIN REGULAR HUMAN 300 UNIT/3 ML VIAL SUBQ SCH ×2 (00:54→05:19)
[2021-09-19] MEDS: methocarbamoL 500 MG TABLET PO PRN ×2 (00:55→12:45)
[2021-09-19] MEDS ORDERED: traZODone 50 MG TABLET PO SCH (01:00)
[2021-09-19] MEDS ORDERED: POTASSIUM CHLORIDE 20 MEQ/15 ML UDC PO SCH (02:00)
[2021-09-19] MEDS: ACETAMINOPHEN 325 MG TABLET PO PRN ×2 (06:52→16:12)
--- NOTE | 2021-09-19 07:00 | PHARMACY PROGRESS NOTE ---
- Best Possible Medication History Admit Date and Time: 09/18/21 8516 Processed by: Nursing Medication History completed: Yes Patient Interview: Completed Secondary Source(s): Pharmacy records, Insurance records As the person ultimately responsible for medication therapy, providers are able to order a medication from an existing home medication list in [facility] via the "Reconcile Routine" prior to Confirmation of that medication by faculty support coordinator. Such practice is discouraged except when the physician, in their clinical judgment, deems that a medical need exists for a medication without regard to previous use.
[2021-09-19 08:12] LABS: ABSOLUTE RETICS # AUTO 0.063 10^6/uL (0.020-0.110); RED BLOOD COUNT 3.4 10^6/uL (4.20-5.40); RETICULOCYTE COUNT % (AUTO) 1.85 % (0.5-2.3)
[2021-09-19 08:14] LABS: BASOPHILS # (AUTO) 0.1 10^3/uL (0.0-0.1); BASOPHILS % (AUTO) 0.9 %; EOSINOPHILS # (AUTO) 0.7 10^3/uL (0.0-0.7); EOSINOPHILS % (AUTO) 9.4 %; HCT - HEMATOCRIT 25.5 % (37.0-47.0); LYMPHOCYTES # (AUTO) 2.1 10^3/uL (1.5-3.5); LYMPHOCYTES % (AUTO) 27.2 %; MEAN CORPUSCULAR HEMOGLOBIN 20.8 pg (27.0-31.0); MEAN CORPUSCULAR HGB CONC 27.5 g/dL (32.0-36.0); MEAN CORPUSCULAR VOLUME 75.7 fL (81.0-99.0); MEAN PLATELET VOLUME 9.1 fL (7.9-10.8); MONOCYTES # (AUTO) 0.7 10^3/uL (0.0-1.0); MONOCYTES % (AUTO) 9.1 %; NEUTROPHILS # (AUTO) 4.1 10^3/uL (1.5-6.6); NEUTROPHILS % (AUTO) 52.9 %; PLT - PLATELET COUNT 496 10^3/uL (130-450); RED BLOOD COUNT 3.37 10^6/uL (4.20-5.40); RED CELL DISTRIBUTION WIDTH 18.8 % (12.0-15.0); WHITE BLOOD COUNT 7.8 x10^3/uL (4.8-10.8)
[2021-09-19 08:17] LABS: SLIDE REVIEW? Indicated
[2021-09-19 08:28] LABS: CALCIUM 8.2 mg/dL (8.5-10.3); CREATININE 0.8 mg/dL (0.4-1.0); POTASSIUM 4.7 mmol/L (3.5-5.0)
[2021-09-19 08:38] LABS: % IRON SATURATION 3 % (20-50); IRON 12 ug/dL (28-170); TOTAL IRON BINDING CAPACITY 361 ug/dL (250-450); TRANSFERRIN 258 mg/dL (192-382)
[2021-09-19 08:40] LABS: PLATELET ESTIMATE, MANUAL INCREASED (>450,000) (NORMAL); PLATELET MORPHOLOGY NORMAL APPEARANCE (NORMAL)
[2021-09-19] MEDS ORDERED: DEXTROSE 10% 250 ML IV SCH (09:00)
[2021-09-19] MEDS ORDERED: ESCITALOPRAM 10 MG TABLET PO SCH (09:00)
[2021-09-19] MEDS ORDERED: LEVOTHYROXINE 125 MCG TABLET PO SCH (09:00)
[2021-09-19] MEDS ORDERED: DULoxetine 30 MG CAPSULE PO SCH (09:00)
[2021-09-19 09:29] LABS: ESTIMATED AVERAGE GLUCOSE 134 mg/dL (70-100); HEMOGLOBIN A1c% 6.3 % (4.27-6.07)
[2021-09-19] MEDS: INSULIN ASPART 300 UNIT/3 ML PEN SUBQ SCH ×2 (09:55→12:14)
[2021-09-19] MEDS: FERROUS SULFATE 325 MG TABLET PO SCH ×2 (09:55→17:54)
[2021-09-19 10:30] LABS: FECAL OCCULT BLOOD (FIT) NEGATIVE (NEGATIVE)
[2021-09-19] MEDS ORDERED: INSULIN ASPART 300 UNIT/3 ML PEN SUBQ SCH (12:00)
--- NOTE | 2021-09-19 12:08 | Discharge Plan ---
Discharge Plan Problem Reviewed?: Yes Disposition: Home, Self Care Condition: Stable Prescriptions: Ferrous Sulfate [Feosol] 325 mg PO DAILY #30 tablet Insulin Glargine [Lantus Solostar] 10 unit SQ QDAC #3 pe Diet: Diabetic Activity Restrictions: Activity as Tolerated Shower Restrictions: No (fall precaution) Instruction Topics: Anemia Ch, Hypoglycemia, Blood Sugar Low Ch, Anemia Iron Deficiency Ch, Hypoglycemia Steps Health Concerns: hypoglycemia, Iron deficiency anemia Plan of Treatment: Your hypoglycemia is resolved. Your A1c is 6.3, your home insulin Lantus and Reglan dosage are reduced. You may follow-up diabetic education instruction for how to prevention of hypoglycemia, keep your oral intake of food, Use your home antiemesis as needed to control your nausea, glucose check as the schedule. You may follow-up with your PCP In 1 week and dean of instruction as outpatient. You were found to have anemia, you need 1 unit blood transfusion, you denies any black stool. You had history of chronic anemia. You are found to have iron deficiency. iron pill is prescribe for you. You may follow-up with your PCP in 1 week to recheck your hemoglobin, you may follow-up with senior electronics engineer to manage your chronic anemia as outpatient Care Goals: Stabilization and improvement of your medical condition Assessment: Discussed the care plan with you, answered your questions, you understood Additional Instructions or Follow Up instructions: You may follow-up with your PCP in 1 week to recheck your hemoglobin and manage your diabetes. Should your symptoms return or worse, you may present to the ER or call 911 for help Follow-Up Care: [facility] - Diabetes Ed No Smoking: If you smoke, Please STOP! Call for help. Follow-up with: Isatu Belle MD [Primary Care Provider] -
[2021-09-19] MEDS: LOPERAMIDE 2 MG CAPSULE PO PRN ×2 (13:25→17:54)
[2021-09-19 15:24] LABS: HCT - HEMATOCRIT 27.6 % (37.0-47.0); HGB - HEMOGLOBIN 7.9 g/dL (12.0-16.0)
[2021-09-19] MEDS ORDERED: INSULIN ASPART 300 UNIT/3 ML PEN SUBQ ONE ×2 (15:44→16:03)
[2021-09-19 16:28] VITALS: BP 116/65
--- NOTE | 2021-09-19 16:44 | DISCHARGE SUMMARY ---
Discharge Summary Admit Date: 09/18/21 Discharge Date: 09/19/21 Discharging Provider: John Parsons Primary Care Provider: Isatu Padgett Condition at Discharge: Stable Discharge Disposition: 01 Home, Self Care Discharge Facility Name: home - DIAGNOSES Discharge Diagnoses with Status of Each Condition: (1) Hypoglycemia resolved. encourage pt keep oral intake, consult with pairing machine operator. reduced pt's home Lantus and regular insulin. pt has extensive education for how to prevent of hypoglycemia and hyperglycemia. pt may followup with her PCP in one week and Partner [facility]co as out-pt To continue the management. (2) Hypokalemia K was 3.4 and replaced (3) Anemia of chronic disease HGB is down to 7. pt had one unit of blood transfusion. now her HGB is 8.6. pt has hx of chronic anemia. pt is found to have iron Deficiency. pt is prescribed iron. Patient may follow-up with PCP in 1 week to recheck hemoglobin, patient may follow-up with sourcing coordinator as outpatient - HPI History of Present Illness: refer from Dr. Rust's HPI on 09/18/21 Jammie is a 46 year old female with diabetes who is well-known to the emergency department. This morning she took her Lantus as she normally does and began to feel shaky, nauseous, and experienced tunnel vision. She reports feeling dizzy and off-balance but denies any falls. She was nauseous throughout the day, so much to the point that she was unable to eat any food. At home, she takes prome thazine to manage her nausea on a regular basis but today's was significant in conjunction with her symptoms of hypoglycemia. She denies any vomiting. She did not take any further doses of insulin due to her low blood sugars. She presented to the ED with a blood glucose of 48 and was given IV dextrose. Her blood sugar increased to 88 but then dropped and continued to drop. They were unable to norm glenda her glucose in the ED so she is being admitted for observation. Today, she reports new onset of shortness of breath but denies any chest pain. Vitals are: 36.9 C, BP 120/72, pulse 90, respirations 16, 98% oxygen. White count is 17.4. Hemoglobin 7.9. Hematocrit 28.7. Potassium 3.4. - ALLERGIES Allergies/Adverse Reactions: Allergies Allergy/AdvReac Type Severity Reaction Status Date / Time carisoprodol [From Soma] Allergy Unknown Verified 09/18/21 18:22 divalproex sodium Allergy Rash Verified 09/18/21 18:22 [From Depakote] gabapentin [From Neurontin] Allergy Edema Verified 09/18/21 18:22 lidocaine Allergy Unknown Verified 09/18/21 18:22 nitrofurantoin Allergy Rash Verified 09/18/21 18:22 macrocrystalline * [From Macrodantin] nortriptyline Allergy Unknown Verified 09/18/21 18:22 ondansetron [From Zofran] Allergy Hives Verified 09/18/21 18:22 ondansetron HCl * Allergy Hives Verified 09/18/21 18:22 [From Zofran (as hydrochloride)] pregabalin [From Lyrica] Allergy Headache Verified 09/18/21 18:22 - MEDICATIONS Home Medications: Ambulatory Orders Medication Instructions Recorded Confirmed Prazosin HCl 5 mg PO QPM 01/23/19 09/18/21 Trazodone HCl 300 mg PO QPM 01/23/19 09/18/21 Duloxetine HCl [Cymbalta] 60 mg PO BID 09/15/19 09/18/21 Insulin Aspart [Novolog] 30 - 40 units SQ .SLIDING SCALE 03/30/20 09/18/21 Butalb/Acetaminophen/Caffeine 1 cap PO Q4H PRN 11/06/20 09/18/21 [Fioricet 50-300-40 mg Capsule] Eszopiclone [Lunesta] 3 mg PO QPM PRN 11/06/20 09/18/21 Glucagon,Human Recombinant 1 mg IJ PRN PRN 11/06/20 09/18/21 [Glucagon Emergency Kit] Metoclopramide [Reglan] 10 mg PO Q6H PRN 11/06/20 09/18/21 Mirabegron [Myrbetriq] 50 mg PO DAILY 11/06/20 09/18/21 Pantoprazole Sodium [Protonix] 20 mg PO QDAC 11/06/20 09/18/21 Promethazine [Phenergan] 25 mg PO Q6HR PRN #14 tablet 11/06/20 09/18/21 Simvastatin [Zocor] 20 mg PO QPM 11/06/20 09/18/21 Spironolactone [Aldactone] 100 mg PO DAILY 11/06/20 09/18/21 methocarbamoL [Robaxin-750] 750 mg PO Q6H PRN 11/06/20 09/18/21 Levothyroxine [Synthroid] 125 mcg PO DAILY 02/21/21 09/18/21 Pen Needle, Diabetic [Insulin Pen 1 each MC BID #150 ndl 02/21/21 09/18/21 Needle] Sulfamethox/Trimeth 800/160 1 tab PO BID 03/08/21 09/18/21 [Bactrim Ds] Ibuprofen [Motrin] 800 mg PO Q8H PRN #10 tablet 03/14/21 09/18/21 Metoclopramide [Reglan] 10 mg PO Q6H PRN #10 tablet 03/14/21 09/18/21 Ferrous Sulfate [Feosol] 325 mg PO DAILY #30 tablet 09/19/21 Insulin Glargine [Lantus Solostar] 10 unit SQ QDAC #3 pe 09/19/21 Insulin Regular, Human [Novolin R 3 unit SQ TIDWM #2 pe 09/19/21 09/18/21 Flexpen] Venlafaxine ER [Effexor ER] 75 mg PO DAILY 09/19/21 09/19/21 - PHYSICAL EXAM AT DISCHARGE General Appearance: positive: No acute distress, Alert. negative: Lethargic Eyes Bilateral: positive: Normal inspection, PERRL, No lid inflammation ENT: positive: ENT inspection nml, No signs of dehydration. negative: Purulent nasal drainage Neck: positive: Nml inspection, Trachea midline. negative: Thyromegaly, Tracheal deviation Respiratory: positive: Chest non-tender, No respiratory distress. negative: Wheezes Cardiovascular: positive: Regular rate & rhythm, No murmur. negative: Tachycardia, Bradycardia, Systolic murmur Peripheral Pulses: positive: 2+ Abdomen: positive: Non-tender, Nml bowel sounds, No distention. negative: Tenderness Back: positive: Nml inspection Skin: positive: Color nml, Warm, Dry. negative: Cyanosis Extremities: positive: Non-tender, Full ROM, Nml appearance Neurologic/Psychiatric: positive: Oriented x3, Motor nml, Sensation nml. negative: Weakness, Sensory loss, Facial droop, Slurred/abnml speech, Depressed mood/affect - LABS Result Diagrams: 09/19/21 17:09 09/19/21 08:04 - FOLLOW UP Follow Up: Your hypoglycemia is resolved. Your A1c is 6.3, your home insulin Lantus and Reglan dosage are reduced. You may follow-up diabetic education instruction for how to prevention of hypoglycemia and hyperglycemia, keep your oral intake of food, Use your home antiemesis as needed to control your nausea, glucose check as the schedule. You may follow-up with your PCP In 1 week and engineering geologist as outpatient. You were found to have anemia, you need 1 unit blood transfusion, you denies any black stool. You had history of chronic anemia. You are found to have iron deficiency. iron pill is prescribe for you. You may follow-up with your PCP in 1 week to recheck your hemoglobin, you may follow-up with sourcing coordinator to manage your chronic anemia as outpatient. You may follow-up with your PCP in 1 week to recheck your hemoglobin and manage your diabetes. Should your symptoms return or worse, you may present to the ER or call 911 for help. - TIME SPENT Time Spent in Discharge (Minutes): 30
[2021-09-19 17:14] LABS: HGB - HEMOGLOBIN 8.6 g/dL (12.0-16.0)
== END 2021-09-19 19:57 | disposition home or self-care (01) ==
LOC: ED 18:18 → MS2 22:42
PROVIDERS: ADMIT Specialist; ATTEND Nurse Practitioner Gerontology
DX: E10.649 Type 1 diabetes mellitus with hypoglycemia without coma (principal); E10.42 Type 1 diabetes mellitus with diabetic polyneuropathy; Z66 Do not resuscitate; F17.290 Nicotine dependence, other tobacco product, uncomplicated; F32.9 Major depressive disorder, single episode, unspecified; E87.6 Hypokalemia; D63.8 Anemia in other chronic diseases classified elsewhere; E61.1 Iron deficiency; E66.01 Morbid (severe) obesity due to excess calories; Z20.822 Contact with and (suspected) exposure to COVID-19; Z68.28 Body mass index [BMI] 28.0-28.9, adult; E03.9 Hypothyroidism, unspecified; G40.909 Epilepsy, unspecified, not intractable, without status epilepticus
CPT/HCPCS: 36415; 36430; 71045; 80048; 80306; 81003; 82274; 82607; 82728; 83036; 83540; 83615; 84443; 84466; 85014; 85018; 85025; 85045; 86850; 86900; 86901; 86920; 87631; 96361; 96365; 96375; 96376; 99283; 99285; A9270; G0378; J1815; J7040; J7120; P9016; 0202U; 81001; 87086

== ENCOUNTER 2021-09-20 20:39 | Outpatient (CLI) | payer MEDICARE, MEDICAID | END 2021-09-20 20:40 | disposition EMS.NT | LOC: EMS 20:39 | DX: R73.09 Other abnormal glucose (principal) ==

== ENCOUNTER 2021-09-25 11:30 | Outpatient (CLI) | payer MEDICARE, MEDICAID | END 2021-09-25 11:31 | disposition critical access hospital (66) | LOC: EMS 11:30 | DX: R11.0 Nausea (principal); R53.1 Weakness | CPT/HCPCS: A0425; A0429 ==

== ENCOUNTER 2021-09-25 11:53 | Emergency (ER) | payer MEDICARE, MEDICAID ==
[2021-09-25] MEDS ORDERED: DEXTROSE 50% ABBOJECT 25 GM/50 ML SYRINGE IVP STA (12:15)
[2021-09-25] MEDS ORDERED: DEXTROSE 50% ABBOJECT 25 GM/50 ML SYRINGE ONE (12:21)
[2021-09-25 12:27] LABS: BASOPHILS # (AUTO) 0.1 10^3/uL (0.0-0.1); BASOPHILS % (AUTO) 0.8 %; EOSINOPHILS # (AUTO) 0.3 10^3/uL (0.0-0.7); EOSINOPHILS % (AUTO) 4.4 %; HCT - HEMATOCRIT 35.1 % (37.0-47.0); HGB - HEMOGLOBIN 9.9 g/dL (12.0-16.0); LYMPHOCYTES # (AUTO) 1.2 10^3/uL (1.5-3.5); MEAN CORPUSCULAR HEMOGLOBIN 21.8 pg (27.0-31.0); MEAN CORPUSCULAR HGB CONC 28.2 g/dL (32.0-36.0); MEAN CORPUSCULAR VOLUME 77.3 fL (81.0-99.0); MEAN PLATELET VOLUME 9.4 fL (7.9-10.8); MONOCYTES # (AUTO) 0.6 10^3/uL (0.0-1.0); MONOCYTES % (AUTO) 7.4 %; NEUTROPHILS # (AUTO) 5.3 10^3/uL (1.5-6.6); PLT - PLATELET COUNT 451 10^3/uL (130-450); RED BLOOD COUNT 4.54 10^6/uL (4.20-5.40); RED CELL DISTRIBUTION WIDTH 22.5 % (12.0-15.0); WHITE BLOOD COUNT 7.5 x10^3/uL (4.8-10.8)
[2021-09-25 12:28] LABS: BILIRUBIN,URINE NEGATIVE (NEGATIVE); GLUCOSE, URINE (UA) 250 mg/dL (NEGATIVE); KETONES,URINE (UA) NEGATIVE (NEGATIVE); LEUKOCYTE ESTERASE, URINE NEGATIVE (NEGATIVE); NITRITE,URINE NEGATIVE (NEGATIVE); OCCULT BLOOD,URINE NEGATIVE (NEGATIVE); PROTEIN,URINE NEGATIVE (NEGATIVE); UROBILINOGEN,URINE 0.2 (NORMAL) E.U./dL (NORMAL)
[2021-09-25 12:33] LABS: VBG BASE EXCESS 3.1 mmol/L (-2 - +2); VBG HCO3 29.1 mmol/L (23-28); VBG OXYGEN SATURATION 46.3 % (60-80); VBG PCO2 51.5 mmHg (41-51); VBG PH 7.37 (7.31-7.41); VBG PO2 23.5 mmHg (25-47); VBG TOTAL CO2 30.7 mmol/L (24-29)
[2021-09-25 12:34] LABS: CLARITY,URINE CLEAR (CLEAR)
[2021-09-25 12:37] LABS: ALBUMIN/GLOBULIN RATIO 1.1 (1.0-2.2); ALKALINE PHOSPHATASE 80 IU/L (42-121); ALT ALANINE AMINOTRANSFERASE 30 IU/L (10-60); AST ASPARTATE AMINOTRANSFERASE 21 IU/L (10-42); BILIRUBIN,TOTAL 0.5 mg/dL (0.2-1.0); BUN - BLOOD UREA NITROGEN 13 mg/dL (6-20); CARBON DIOXIDE - CO2 27 mmol/L (21-32); CHLORIDE 102 mmol/L (101-111); CREATININE 0.6 mg/dL (0.4-1.0); GFR - MDRD 107 (>89); GLUCOSE 61 mg/dL (70-100); LIPASE 26 U/L (22-51); POTASSIUM 3.8 mmol/L (3.5-5.0); SODIUM 139 mmol/L (135-145); TOTAL PROTEIN 7.6 g/dL (6.7-8.2)
[2021-09-25] MEDS ORDERED: PROCHLORPERAZINE 10 MG/2 ML VIAL IVP STA (12:46)
[2021-09-25 12:47] LABS: KETONES, SERUM (ACETEST) NEGATIVE (NEGATIVE)
--- NOTE | 2021-09-25 12:47 | ED Physician Documentation ---
History of Present Illness - Stated complaint Stated Complaint: WEAKNESS/NAUSEA - Chief complaint Chief Complaint: General - Additonal information Additional information: 46-year-old female who is a type I diabetic well-known to this emergency department presents for evaluation of hypoglycemia, nausea as well as neck pain. She was admitted to this hospital on 18 September for hypoglycemia. While here she did have her dosage of Lantus augmented and reduced. Since being discharged home 4 days ago she reports that she has continued to have some hypoglycemia. Blood glucose last night was 57. It improved to 104 after eating. This morning she took 20 units of Lantus and had persistent nausea though no vomiting. She did not take her antiemetic she is unsure why she did not. She also took her regular dose of insulin 5 units. In review of the recent hospitalization discharge paperwork it would seem that the patient should be taking 10 units of Lantus not 20. Patient is also reporting neck pain after a fall Wednesday night. No paresthes ias. No loss of consciousness. 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: Other : Kidney stones HEENT: Chronic vision loss, Chronic sinusitis Psych: Depression Musculoskeletal: Osteoarthritis, Fibromyalgia, Fatigue, Chronic back pain Derm: None - Past Surgical History Past Surgical History: Yes General: Gastric surgery Ortho: Other /WEATHERIZATION CREW LEADER: section, Endometrial ablation, Tubal ligation HEENT: Tonsil/Adenoidectomy - Present Medications Home Medications: Ambulatory Orders Medication Instructions Recorded Confirmed Prazosin HCl 5 mg PO QPM 01/23/19 09/18/21 Trazodone HCl 300 mg PO QPM 01/23/19 09/18/21 Duloxetine HCl [Cymbalta] 60 mg PO BID 09/15/19 09/18/21 Insulin Aspart [Novolog] 30 - 40 units SQ .SLIDING SCALE 03/30/20 09/18/21 Butalb/Acetaminophen/Caffeine 1 cap PO Q4H PRN 11/06/20 09/18/21 [Fioricet 50-300-40 mg Capsule] Eszopiclone [Lunesta] 3 mg PO QPM PRN 11/06/20 09/18/21 Glucagon,Human Recombinant 1 mg IJ PRN PRN 11/06/20 09/18/21 [Glucagon Emergency Kit] Metoclopramide [Reglan] 10 mg PO Q6H PRN 11/06/20 09/18/21 Mirabegron [Myrbetriq] 50 mg PO DAILY 11/06/20 09/18/21 Pantoprazole Sodium [Protonix] 20 mg PO QDAC 11/06/20 09/18/21 Promethazine [Phenergan] 25 mg PO Q6HR PRN #14 tablet 11/06/20 09/18/21 Simvastatin [Zocor] 20 mg PO QPM 11/06/20 09/18/21 Spironolactone [Aldactone] 100 mg PO DAILY 11/06/20 09/18/21 methocarbamoL [Robaxin-750] 750 mg PO Q6H PRN 11/06/20 09/18/21 Levothyroxine [Synthroid] 125 mcg PO DAILY 02/21/21 09/18/21 Pen Needle, Diabetic [Insulin Pen 1 each MC BID #150 ndl 02/21/21 09/18/21 Needle] Sulfamethox/Trimeth 800/160 1 tab PO BID 03/08/21 09/18/21 [Bactrim Ds] Ibuprofen [Motrin] 800 mg PO Q8H PRN #10 tablet 03/14/21 09/18/21 Metoclopramide [Reglan] 10 mg PO Q6H PRN #10 tablet 03/14/21 09/18/21 Ferrous Sulfate [Feosol] 325 mg PO DAILY #30 tablet 09/19/21 Insulin Glargine [Lantus Solostar] 10 unit SQ QDAC #3 pe 09/19/21 Insulin Regular, Human [Novolin R 3 unit SQ TIDWM #2 pe 09/19/21 09/18/21 Flexpen] Venlafaxine ER [Effexor ER] 75 mg PO DAILY 09/19/21 09/19/21 - Allergies Allergies/Adverse Reactions: Allergies Allergy/AdvReac Type Severity Reaction Status Date / Time carisoprodol [From Soma] Allergy Unknown Verified 09/25/21 12:01 divalproex sodium Allergy Rash Verified 09/25/21 12:01 [From Depakote] gabapentin [From Neurontin] Allergy Edema Verified 09/25/21 12:01 lidocaine Allergy Unknown Verified 09/25/21 12:01 nitrofurantoin Allergy Rash Verified 09/25/21 12:01 macrocrystalline * [From Macrodantin] nortriptyline Allergy Unknown Verified 09/25/21 12:01 ondansetron [From Zofran] Allergy Hives Verified 09/25/21 12:01 ondansetron HCl * Allergy Hives Verified 09/25/21 12:01 [From Zofran (as hydrochloride)] pregabalin [From Lyrica] Allergy Headache Verified 09/25/21 12:01 - Social History Does the pt smoke?: Yes Smoking Status: Current every day smoker Does the pt drink ETOH?: No Does the pt have substance abuse?: No - Immunizations Immunizations are current?: Yes Immunizations: TDAP >10years/unknown - POLST Patient has POLST: No POLST Status: DNR PD ED PE EXPANDED - General General: Alert, No acute distress - Cardiac Cardiac: Regular Rate, Radial strong equal, Pedal strong equal, Cap refill < 2 sec - Respiratory Respiratory: Clear to ausultation dylan. No: Distress, Labored - Abdomen Abdomen: Normal Bowel sounds. No: Tender to palpation - Derm Derm: Normal color, Warm and dry. No: Rash - Neuro Neuro: Alert and Oriented X 3, CNII-XII intact - GCS Eye Opening: Spontaneous Motor: Obeys Commands Verbal: Oriented Total: 15 Results - Vitals Vitals: Vital Signs - 24 hr 09/25/21 09/25/21 09/25/21 11:58 12:25 14:25 Temperature 36.9 C Heart Rate 101 H 91 100 Respiratory 16 18 18 Rate Blood Pressure 150/100 H 148/92 H 154/80 H O2 Saturation 98 98 96 Oxygen O2 Source Room air - Labs Labs: Laboratory Tests 09/25/21 09/25/21 09/25/21 12:10 12:17 12:17 WBC 7.5 RBC 4.54 Hgb 9.9 L Hct 35.1 L MCV 77.3 L MCH 21.8 L MCHC 28.2 L RDW 22.5 H Plt Count 451 H MPV 9.4 Neut # (Auto) 5.3 Lymph # (Auto) 1.2 L Power # (Auto) 0.6 Eos # (Auto) 0.3 Baso # (Auto) 0.1 Absolute Nucleated RBC 0.00 Nucleated RBC % 0.0 VBG pH VBG pCO2 VBG pO2 VBG HCO3 VBG Total CO2 VBG O2 Saturation VBG Base Excess Sodium 139 Potassium 3.8 Chloride 102 Carbon Dioxide 27 Anion Gap 10.0 BUN 13 Creatinine 0.6 Estimated GFR (MDRD) 107 Glucose 61 L Calcium 9.0 Total Bilirubin 0.5 AST 21 ALT 30 Alkaline Phosphatase 80 Total Protein 7.6 Albumin 4.0 Globulin 3.6 Albumin/Globulin Ratio 1.1 Lipase 26 Urine Color YELLOW Urine Clarity CLEAR Urine pH 7.0 Ur Specific Morley 1.015 Urine Protein NEGATIVE Urine Glucose (UA) 250 H Urine Ketones NEGATIVE Urine Occult Blood NEGATIVE Urine Nitrite NEGATIVE Urine Bilirubin NEGATIVE Urine Urobilinogen 0.2 (NORMAL) Ur Leukocyte Esterase NEGATIVE Ur Microscopic Review NOT INDICATED Urine Culture Comments NOT INDICATED Serum Ketones NEGATIVE 09/25/21 12:17 WBC RBC Hgb Hct MCV MCH MCHC RDW Plt Count MPV Neut # (Auto) Lymph # (Auto) Power # (Auto) Eos # (Auto) Baso # (Auto) Absolute Nucleated RBC Nucleated RBC % VBG pH 7.370 VBG pCO2 51.5 H VBG pO2 23.5 L VBG HCO3 29.1 H VBG Total CO2 30.7 H VBG O2 Saturation 46.3 L VBG Base Excess 3.1 H Sodium Potassium Chloride Carbon Dioxide Anion Gap BUN Creatinine Estimated GFR (MDRD) Glucose Calcium Total Bilirubin AST ALT Alkaline Phosphatase Total Protein Albumin Globulin Albumin/Globulin Ratio Lipase Urine Color Urine Clarity Urine pH Ur Specific [place] Urine Protein Urine Glucose (UA) Urine Ketones Urine Occult Blood Urine Nitrite Urine Bilirubin Urine Urobilinogen Ur Leukocyte Esterase Ur Microscopic Review Urine Culture Comments Serum Ketones - Rads (name of study) Cervical CT Radiology: Final report received (no acute frcture or osseous lesion) PD MEDICAL DECISION MAKING - ED course Complexity details: reviewed results, re-evaluated patient, considered differential, d/w patient ED course: 46-year-old female who is well-known to the emergency department for poorly controlled diabetes presents the emergency department for nausea and hypoglycemia. She was discharged from this hospital 4 days ago for similar. She was to be taking 10 of Lantus but took 20 this morning. In addition due to chronic nausea she did not eat. She also took 5 units of regular insulin. She presented here with her screening labs showing a blood glucose of 61. She was mentating normally. She was given one half amp of D50 and allowed to eat. Over the course of the next 4 hours her blood sugars have risen and maintained. They were 84, the 92, than 108 then 109. She is tolerating p.o.'s without further vomiting. The rest of her screening labs without acute worrisome findings. It was discussed with the patient that she is to take only 10 of Lantus in the morning. She is also not to take the Lantus or her regular insulin if she is not going to be eating. We discussed that hypoglycemia is a larger life threat versus hyperglycemia. Emergent return precautions otherwise discussed. I did attempt to speak to the hospitalist to discuss the possibility of observation admission however the patient is quite ready for discharge home and declines at this time. Departure - Departure Disposition: 01 Home, Self Care Clinical Impression: Hypoglycemia Condition: Stable Record reviewed to determine appropriate education?: Yes Instructions: ED Diabetes Hypoglycemia Oral Agent Comments: Jammie you are to take only 10 units of Lantus in the morning. Do not take the Lantus or your regular insulin if you will not be eating. Low blood sugars are a larger threat to your life than elevated blood sugars. It is important that you routinely take your nausea medications to ensure that you can eat after taking insulin. If your sugars are less than 70 or higher than 400 then please return immediately to the ER. It is important you continue to eat today.
--- NOTE | 2021-09-25 13:08 | CT Report ---
PROCEDURE: CERVICAL SPINE WO INDICATIONS: neck pain after fall TECHNIQUE: Noncontrast 3 mm thick sections acquired from the skull base to the T4 level. Sagittal and coronal r eformats were then constructed. For radiation dose reduction, the following was used: automated exp osure control, adjustment of mA and/or kV according to patient size. COMPARISON: None FINDINGS: Image quality: Excellent. Bones: No fractures or dislocations. Visualized superior ribs are intact. Spine degenerative disc d isease and facet arthropathy are noted. Soft tissues: Prevertebral soft tissues are normal in thickness. No paravertebral hematomas. No ap ical pneumothoraces. Partially visualized linear opacity in the right lung apex. IMPRESSION: No fracture. No acute osseous lesion. If there is continued clinical concern for pathology, then MRI should be considered for further evaluation. Reviewed by: Liliana Birch MD, PhD on 09/25/2021 12:06 PM [facility] Approved by: Liliana Birch MD, PhD on 09/25/2021 12:06 PM [id number] Station ID: [id number]
[2021-09-25] MEDS ORDERED: ACETAMINOPHEN 325 MG TABLET PO STA (14:20)
[2021-09-25 15:59] VITALS: BP 134/95
== END 2021-09-25 15:50 | disposition home or self-care (01) ==
LOC: EDUNIT# → ED 11:53
DX: E10.649 Type 1 diabetes mellitus with hypoglycemia without coma (principal); E10.42 Type 1 diabetes mellitus with diabetic polyneuropathy; Z79.4 Long term (current) use of insulin; F17.200 Nicotine dependence, unspecified, uncomplicated; Z66 Do not resuscitate
CPT/HCPCS: 36415; 72125; 80053; 81003; 82009; 82803; 83690; 85025; 96374; 96375; 99284; A9270; 81001; 87086

== ENCOUNTER 2021-11-02 02:13 | Outpatient (CLI) | payer MEDICARE, MEDICAID | END 2021-11-02 02:14 | disposition EMS.NT | LOC: EMS 02:13 | DX: E10.649 Type 1 diabetes mellitus with hypoglycemia without coma (principal) ==

== ENCOUNTER 2021-11-02 22:42 | Outpatient (CLI) | payer MEDICARE, MEDICAID | END 2021-11-02 22:43 | disposition critical access hospital (66) | LOC: EMS 22:42 | DX: R41.82 Altered mental status, unspecified (principal) | CPT/HCPCS: A0425; A0427 ==

== ENCOUNTER 2021-11-02 22:59 | Emergency (ER) | payer MEDICARE, MEDICAID ==
[2021-11-02] MEDS ORDERED: PROMETHAZINE INJ 12.5 MG in SODIUM CHLORIDE 0.9% 50 ML IV STA (23:12)
[2021-11-02] MEDS ORDERED: SODIUM CHLORIDE 0.9% 1,000 ML IV STA (23:12)
--- NOTE | 2021-11-02 23:17 | ED Physician Documentation ---
History of Present Illness - Stated complaint Stated Complaint: AMS - History obtained from History obtained from: Patient, EMS - Additonal information Additional information: She is brought to the emergency department by EMS for chief complaint of hypoglycemia. The patient is an insulin-dependent diabetic and apparently was on an insulin pump until about 6 months ago. There was some sort of problem with the pump and so the patient was switched back to a spot dosing regimen with both long-acting Lantus which she takes in the evening around 2099, and a shorter acting agent which she takes a few times a day. The patient states that since being started on this regimen, she has decreased her food intake from 2-3 meals a day to 1 meal a day. She states she just does not feel very hungry most of the time. She does note that she did decrease her insulin both long-acting and shorter acting, at that time, but that over the past couple of days, she has had trouble with her blood sugar dropping low. She has never had this problem b efore. She states that last night, her son heard her banging on the wall and came into her room in the middle of the night to find her "out of it". EMS was called and the patient was given D50 and came around immediately. She refused transport at that time, and stayed home, eating a peanut butter and jelly sandwich, and was fine for the rest of the night. She states that she felt more or less fine today, but when she was at the grocery store with her daughter this afternoon, she did begin to feel a little weak and shaky as though her blood sugar was dropping again. Patient states that she took her shorter acting insulin tonight around 1929, which was about the same time she ate a bowl of pasta with sauce and chicken. She then took her Lantus at 2099. About an hour and a half later, the patient began to feel as though her blood sugar was rapidly dropping, and medics state that the patient's family told them that she was starting to become incoherent. When they got there, the patient's blood sugar was 17. Medics put in a line and gave her D50 1 amp, and patient immediately became alert and oriented x3. She states she still feels a little shaky and has a headache, but otherwise, feels back to normal. She states she has been somewhat nauseated for the last couple days but has not been vomiting. No other symptoms recently. She states that her meals the last couple of days have been on par with what she has been eating for the last month. No other complaints at this time. Review of Systems Ten Systems: 10 systems reviewed and negative Constitutional: reports: Reviewed and negative Eyes: reports: Reviewed and negative Ears: reports: Reviewed and negative Nose: reports: Reviewed and negative Throat: reports: Reviewed and negative Cardiac: reports: Reviewed and negative Respiratory: reports: Reviewed and negative GI: reports: Reviewed and negative : reports: Reviewed and negative Skin: reports: Reviewed and negative Musculoskeletal: reports: Reviewed and negative Neurologic: reports: Altered mental status, Unresponsive Psychiatric: reports: Reviewed and negative Endocrine: reports: Reviewed and negative Immunocompromised: reports: Reviewed and negative PD PAST MEDICAL HISTORY - Past Medical History Cardiovascular: High cholesterol, Murmur Respiratory: Pneumonia, Shortness of breath Neuro: Headaches, Migraines, Peripheral neuropathy, Seizure disorder Endocrine/Autoimmune: Type 1 diabetes GI: GERD, GI bleed, Ulcers, Other 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: Other : Kidney stones HEENT: Chronic vision loss, Chronic sinusitis Psych: Depression Musculoskeletal: Osteoarthritis, Fibromyalgia, Fatigue, Chronic back pain Derm: None - Past Surgical History Past Surgical History: Yes General: Gastric surgery Ortho: Other /NURSE 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: section, Endometrial ablation, Tubal ligation HEENT: Tonsil/Adenoidectomy - Present Medications Home Medications: Ambulatory Orders Medication Instructions Recorded Confirmed Prazosin HCl 5 mg PO QPM 01/23/19 09/18/21 Trazodone HCl 300 mg PO QPM 01/23/19 09/18/21 Duloxetine HCl [Cymbalta] 60 mg PO BID 09/15/19 09/18/21 Insulin Aspart [Novolog] 30 - 40 units SQ .SLIDING SCALE 03/30/20 09/18/21 Butalb/Acetaminophen/Caffeine 1 cap PO Q4H PRN 11/06/20 09/18/21 [Fioricet 50-300-40 mg Capsule] Eszopiclone [Lunesta] 3 mg PO QPM PRN 11/06/20 09/18/21 Glucagon,Human Recombinant 1 mg IJ PRN PRN 11/06/20 09/18/21 [Glucagon Emergency Kit] Metoclopramide [Reglan] 10 mg PO Q6H PRN 11/06/20 09/18/21 Mirabegron [Myrbetriq] 50 mg PO DAILY 11/06/20 09/18/21 Pantoprazole Sodium [Protonix] 20 mg PO QDAC 11/06/20 09/18/21 Promethazine [Phenergan] 25 mg PO Q6HR PRN #14 tablet 11/06/20 09/18/21 Simvastatin [Zocor] 20 mg PO QPM 11/06/20 09/18/21 Spironolactone [Aldactone] 100 mg PO DAILY 11/06/20 09/18/21 methocarbamoL [Robaxin-750] 750 mg PO Q6H PRN 11/06/20 09/18/21 Levothyroxine [Synthroid] 125 mcg PO DAILY 02/21/21 09/18/21 Pen Needle, Diabetic [Insulin Pen 1 each MC BID #150 ndl 02/21/21 09/18/21 Needle] Sulfamethox/Trimeth 800/160 1 tab PO BID 03/08/21 09/18/21 [Bactrim Ds] Ibuprofen [Motrin] 800 mg PO Q8H PRN #10 tablet 03/14/21 09/18/21 Metoclopramide [Reglan] 10 mg PO Q6H PRN #10 tablet 03/14/21 09/18/21 Ferrous Sulfate [Feosol] 325 mg PO DAILY #30 tablet 09/19/21 Insulin Glargine [Lantus Solostar] 10 unit SQ QDAC #3 pe 09/19/21 Insulin Regular, Human [Novolin R 3 unit SQ TIDWM #2 pe 09/19/21 09/18/21 Flexpen] Venlafaxine ER [Effexor ER] 75 mg PO DAILY 09/19/21 09/19/21 - Allergies Allergies/Adverse Reactions: Allergies Allergy/AdvReac Type Severity Reaction Status Date / Time carisoprodol [From Soma] Allergy Unknown Verified 11/02/21 23:16 divalproex sodium Allergy Rash Verified 11/02/21 23:16 [From Depakote] gabapentin [From Neurontin] Allergy Edema Verified 11/02/21 23:16 lidocaine Allergy Unknown Verified 11/02/21 23:16 nitrofurantoin Allergy Rash Verified 11/02/21 23:16 macrocrystalline * [From Macrodantin] nortriptyline Allergy Unknown Verified 11/02/21 23:16 ondansetron [From Zofran] Allergy Hives Verified 11/02/21 23:16 ondansetron HCl * Allergy Hives Verified 11/02/21 23:16 [From Zofran (as hydrochloride)] pregabalin [From Lyrica] Allergy Headache Verified 11/02/21 23:16 - Social History Does the pt smoke?: Yes Smoking Status: Current every day smoker Does the pt drink ETOH?: No Does the pt have substance abuse?: No - Immunizations Immunizations are current?: Yes Immunizations: TDAP >10years/unknown - POLST Patient has POLST: No POLST Status: DNR PD ED PE NORMAL - Vitals Vital signs reviewed: Yes - General General: Alert and oriented X 3, No acute distress, Well developed/nourished - HEENT HEENT: Atraumatic, PERRL, EOMI, Moist mucous membranes - Neck Neck: Supple, no meningeal sign - Cardiac Cardiac: RRR, No murmur, Strong equal pulses - Respiratory Respiratory: No respiratory distress, Clear bilaterally - Abdomen Abdomen: Soft, Non tender, Non distended - Derm Derm: Normal color, Warm and dry, No rash - Extremities Extremities: No deformity, No edema, No calf tenderness / cord - Neuro Neuro: Alert and oriented X 3 - Psych Psych: Normal mood, Normal affect Results - Vitals Vitals: Vital Signs - 24 hr 11/02/21 11/03/21 23:10 03:00 Temperature 36.6 C Heart Rate 77 83 Respiratory 18 18 Rate Blood Pressure 143/85 H 137/90 H O2 Saturation 100 98 Oxygen O2 Source Room air - Labs Labs: Laboratory Tests 11/02/21 11/02/21 23:42 23:42 WBC 6.8 RBC 4.54 Hgb 10.1 L Hct 34.9 L MCV 76.9 L MCH 22.2 L MCHC 28.9 L RDW 21.6 H Plt Count 465 H MPV 10.1 Neut # (Auto) 4.9 Lymph # (Auto) 1.1 L [place] # (Auto) 0.6 Eos # (Auto) 0.1 Baso # (Auto) 0.1 Absolute Nucleated RBC 0.00 Nucleated RBC % 0.0 Manual Slide Review Indicated WBC Morphology NORMAL APPEARANCE Platelet Estimate INCREASED (>450,000) Platelet Morphology NORMAL APPEARANCE RBC Morph Micro Appear 1+ HYPOCHROMASIA Sodium 136 Potassium 3.1 L Chloride 102 Carbon Dioxide 23 Anion Gap 11.0 BUN 10 Creatinine 0.7 Estimated GFR (MDRD) 89 Glucose 115 H Calcium 8.7 Total Bilirubin 0.3 AST 34 ALT 31 Alkaline Phosphatase 69 Total Protein 7.7 Albumin 4.0 Globulin 3.7 Albumin/Globulin Ratio 1.1 Lipase 25 PD MEDICAL DECISION MAKING - ED course Complexity details: reviewed results, re-evaluated patient, considered differential, d/w patient ED course: Fingerstick glucose in the emergency department on arrival was 106. The patient was given a cup of orange juice and was worked up with labs. She was given a sandwich to eat here after being given a dose of Phenergan. The patient's labs were unremarkable. The patient was able to eat a sandwich and repeat blood glucoses were holding steady in the 100s. The patient was observed for a few hours in the emergency department after which he was stable and I felt she can be discharged home. We discussed that she should cut her Lantus from 10 down to 5, and based on fasting blood sugars, she may start to bring it up 1 unit at a time if fasting blood sugars are greater than 150. I have advised patient to vivienne castro an appointment with her primary care physician first thing in the morning to discuss a better long-term plan for her sugar control. We have discussed the usual indications for return. Departure - Departure Disposition: 01 Home, Self Care Clinical Impression: Hypoglycemia associated with diabetes Condition: Stable Instructions: ED Diabetes Hypoglycemia Insulin React Comments: Your blood sugars have been good here. You have had D50 in route, plus orange juice and a sandwich here. It seems that perhaps for right now, the 10 units of Lantus at night is too much. The best plan for now is to take 5 units of Lantus at night instead of 10, and then continue to use the short acting insulin. If you notice that your fasting blood sugars are running above 150, then you can go up 1 unit at a time on your Lantus, but consider adjusting your evening dose of short acting insulin down. You should call first thing in the morning and make an appointment with your primary doctor to follow-up and decide what to do about your insulin regimen for the long-term. It may be that you would be best off going back on the pump, but this is for your primary doctor to decide. If you have further episodes of low blood sugar, then you should return to the emergency department. Discharge Date/Time: 11/03/21 03:22
[2021-11-02] MEDS ORDERED: PROMETHAZINE 25 MG/1 ML VIAL ONE (23:24)
[2021-11-02 23:48] LABS: BASOPHILS # (AUTO) 0.1 10^3/uL (0.0-0.1); BASOPHILS % (AUTO) 0.9 %; EOSINOPHILS # (AUTO) 0.1 10^3/uL (0.0-0.7); EOSINOPHILS % (AUTO) 2.1 %; HCT - HEMATOCRIT 34.9 % (37.0-47.0); HGB - HEMOGLOBIN 10.1 g/dL (12.0-16.0); LYMPHOCYTES # (AUTO) 1.1 10^3/uL (1.5-3.5); LYMPHOCYTES % (AUTO) 15.5 %; MEAN CORPUSCULAR HEMOGLOBIN 22.2 pg (27.0-31.0); MEAN CORPUSCULAR HGB CONC 28.9 g/dL (32.0-36.0); MEAN CORPUSCULAR VOLUME 76.9 fL (81.0-99.0); MEAN PLATELET VOLUME 10.1 fL (7.9-10.8); MONOCYTES # (AUTO) 0.6 10^3/uL (0.0-1.0); MONOCYTES % (AUTO) 9.4 %; NEUTROPHILS # (AUTO) 4.9 10^3/uL (1.5-6.6); PLT - PLATELET COUNT 465 10^3/uL (130-450); RED BLOOD COUNT 4.54 10^6/uL (4.20-5.40); RED CELL DISTRIBUTION WIDTH 21.6 % (12.0-15.0); WHITE BLOOD COUNT 6.8 x10^3/uL (4.8-10.8)
[2021-11-02 23:57] LABS: SLIDE REVIEW? Indicated
[2021-11-03] LABS: ALBUMIN/GLOBULIN RATIO 1.1 (1.0-2.2); BILIRUBIN,TOTAL 0.3 mg/dL (0.2-1.0); CALCIUM 8.7 mg/dL (8.5-10.3); CREATININE 0.7 mg/dL (0.4-1.0); POTASSIUM 3.1 mmol/L (3.5-5.0); TOTAL PROTEIN 7.7 g/dL (6.7-8.2)
[2021-11-03] MEDS ORDERED: POTASSIUM CHLORIDE 20 MEQ TABLET PO STA (00:04)
[2021-11-03 00:05] LABS: PLATELET ESTIMATE, MANUAL INCREASED (>450,000) (NORMAL); PLATELET MORPHOLOGY NORMAL APPEARANCE (NORMAL); WBC MORPHOLOGY (MULTIPLE) NORMAL APPEARANCE (NORMAL)
[2021-11-03 03:22] VITALS: BP 137/90
== END 2021-11-03 03:22 | disposition home or self-care (01) ==
LOC: EDUNIT# → ED 22:59
DX: E10.649 Type 1 diabetes mellitus with hypoglycemia without coma (principal); E10.42 Type 1 diabetes mellitus with diabetic polyneuropathy; Z79.4 Long term (current) use of insulin; F17.200 Nicotine dependence, unspecified, uncomplicated
CPT/HCPCS: 36415; 80053; 83690; 85025; 96361; 96365; 99284; A9270; J7040

== ENCOUNTER 2021-11-07 01:25 | Outpatient (CLI) | payer MEDICARE, MEDICAID | END 2021-11-07 01:26 | disposition critical access hospital (66) | LOC: EMS 01:25 | DX: I95.9 Hypotension, unspecified (principal) | CPT/HCPCS: A0425; A0427 ==

== ENCOUNTER 2021-11-07 01:42 | Emergency (ER) | payer MEDICARE, MEDICAID ==
[2021-11-07] MEDS ORDERED: SODIUM CHLORIDE 0.9% 1,000 ML IV STA (03:01)
[2021-11-07 03:23] LABS: BASOPHILS % (AUTO) 0.6 %; EOSINOPHILS # (AUTO) 0.5 10^3/uL (0.0-0.7); EOSINOPHILS % (AUTO) 6.9 %; HCT - HEMATOCRIT 27.6 % (37.0-47.0); HGB - HEMOGLOBIN 8.1 g/dL (12.0-16.0); LYMPHOCYTES # (AUTO) 1.7 10^3/uL (1.5-3.5); LYMPHOCYTES % (AUTO) 24.7 %; MEAN CORPUSCULAR HEMOGLOBIN 22.6 pg (27.0-31.0); MEAN CORPUSCULAR HGB CONC 29.3 g/dL (32.0-36.0); MEAN CORPUSCULAR VOLUME 76.9 fL (81.0-99.0); MEAN PLATELET VOLUME 9.1 fL (7.9-10.8); MONOCYTES # (AUTO) 0.6 10^3/uL (0.0-1.0); MONOCYTES % (AUTO) 8.9 %; NEUTROPHILS # (AUTO) 3.9 10^3/uL (1.5-6.6); NEUTROPHILS % (AUTO) 58.6 %; PLT - PLATELET COUNT 395 10^3/uL (130-450); RED BLOOD COUNT 3.59 10^6/uL (4.20-5.40); RED CELL DISTRIBUTION WIDTH 21.2 % (12.0-15.0); WHITE BLOOD COUNT 6.7 x10^3/uL (4.8-10.8)
[2021-11-07 03:24] LABS: SLIDE REVIEW? Indicated
[2021-11-07] MEDS ORDERED: traZODone 50 MG TABLET PO STA (03:24)
[2021-11-07 03:36] LABS: ALBUMIN 3.2 g/dL (3.2-5.5); ALBUMIN/GLOBULIN RATIO 1.2 (1.0-2.2); BILIRUBIN,TOTAL 0.2 mg/dL (0.2-1.0); CALCIUM 7.9 mg/dL (8.5-10.3); CREATININE 0.9 mg/dL (0.4-1.0); POTASSIUM 3.4 mmol/L (3.5-5.0); TOTAL PROTEIN 5.9 g/dL (6.7-8.2)
[2021-11-07 03:46] LABS: PLATELET ESTIMATE, MANUAL NORMAL (130-450,000) (NORMAL); PLATELET MORPHOLOGY NORMAL APPEARANCE (NORMAL); WBC MORPHOLOGY (MULTIPLE) NORMAL APPEARANCE (NORMAL)
--- NOTE | 2021-11-07 04:12 | ED Physician Documentation ---
History of Present Illness - Stated complaint Stated Complaint: LOW BLOOD SUGAR - Chief complaint Chief Complaint: General - History obtained from History obtained from: Patient - History of Present Illness Timing: Today - Additonal information Additional information: 46-year-old brittle type I diabetic has recently switched off her pump down to manual injections and she has had tighter control of her blood sugars and recently she has had low blood sugars.This evening her blood sugar was 33 and she is transported here to the emergency department by paramedics. She had had food prior to the initial evaluation and her sugar was up to 85 in route to the hospital. No specific treatment was instituted. The patient indicates that she has otherwise been feeling improved in general. Review of Systems Constitutional: denies: Fever, Chills Ears: denies: Ear pain Nose: denies: Congestion Throat: denies: Sore throat Cardiac: denies: Chest pain / pressure, Palpitations Respiratory: denies: Dyspnea, Cough GI: denies: Abdominal Pain, Nausea, Vomiting, Constipation, Diarrhea : denies: Dysuria, Frequency Skin: denies: Rash Musculoskeletal: reports: Extremity pain. 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: Other : Kidney stones HEENT: Chronic vision loss, Chronic sinusitis Psych: Depression Musculoskeletal: Osteoarthritis, Fibromyalgia, Fatigue, Chronic back pain Derm: None - Past Surgical History Past Surgical History: Yes General: Gastric surgery Ortho: Other /PHYSICIAN OFFICE ASSISTANT: section, Endometrial ablation, Tubal ligation HEENT: Tonsil/Adenoidectomy - Present Medications Home Medications: Ambulatory Orders Medication Instructions Recorded Confirmed Prazosin HCl 5 mg PO QPM 01/23/19 09/18/21 Trazodone HCl 300 mg PO QPM 01/23/19 09/18/21 Duloxetine HCl [Cymbalta] 60 mg PO BID 09/15/19 09/18/21 Insulin Aspart [Novolog] 30 - 40 units SQ .SLIDING SCALE 03/30/20 09/18/21 Butalb/Acetaminophen/Caffeine 1 cap PO Q4H PRN 11/06/20 09/18/21 [Fioricet 50-300-40 mg Capsule] Eszopiclone [Lunesta] 3 mg PO QPM PRN 11/06/20 09/18/21 Glucagon,Human Recombinant 1 mg IJ PRN PRN 11/06/20 09/18/21 [Glucagon Emergency Kit] Metoclopramide [Reglan] 10 mg PO Q6H PRN 11/06/20 09/18/21 Mirabegron [Myrbetriq] 50 mg PO DAILY 11/06/20 09/18/21 Pantoprazole Sodium [Protonix] 20 mg PO QDAC 11/06/20 09/18/21 Promethazine [Phenergan] 25 mg PO Q6HR PRN #14 tablet 11/06/20 09/18/21 Simvastatin [Zocor] 20 mg PO QPM 11/06/20 09/18/21 Spironolactone [Aldactone] 100 mg PO DAILY 11/06/20 09/18/21 methocarbamoL [Robaxin-750] 750 mg PO Q6H PRN 11/06/20 09/18/21 Levothyroxine [Synthroid] 125 mcg PO DAILY 02/21/21 09/18/21 Pen Needle, Diabetic [Insulin Pen 1 each MC BID #150 ndl 02/21/21 09/18/21 Needle] Sulfamethox/Trimeth 800/160 1 tab PO BID 03/08/21 09/18/21 [Bactrim Ds] Ibuprofen [Motrin] 800 mg PO Q8H PRN #10 tablet 03/14/21 09/18/21 Metoclopramide [Reglan] 10 mg PO Q6H PRN #10 tablet 03/14/21 09/18/21 Ferrous Sulfate [Feosol] 325 mg PO DAILY #30 tablet 09/19/21 Insulin Glargine [Lantus Solostar] 10 unit SQ QDAC #3 pe 09/19/21 Insulin Regular, Human [Novolin R 3 unit SQ TIDWM #2 pe 09/19/21 09/18/21 Flexpen] Venlafaxine ER [Effexor ER] 75 mg PO DAILY 09/19/21 09/19/21 - Allergies Allergies/Adverse Reactions: Allergies Allergy/AdvReac Type Severity Reaction Status Date / Time carisoprodol [From Soma] Allergy Unknown Verified 11/07/21 01:52 divalproex sodium Allergy Rash Verified 11/07/21 01:52 [From Depakote] gabapentin [From Neurontin] Allergy Edema Verified 11/07/21 01:52 lidocaine Allergy Unknown Verified 11/07/21 01:52 nitrofurantoin Allergy Rash Verified 11/07/21 01:52 macrocrystalline * [From Macrodantin] nortriptyline Allergy Unknown Verified 11/07/21 01:52 ondansetron [From Zofran] Allergy Hives Verified 11/07/21 01:52 ondansetron HCl * Allergy Hives Verified 11/07/21 01:52 [From Zofran (as hydrochloride)] pregabalin [From Lyrica] Allergy Headache Verified 11/07/21 01:52 - Social History Does the pt smoke?: Yes Smoking Status: Current every day smoker Does the pt drink ETOH?: No Does the pt have substance abuse?: No - Immunizations Immunizations are current?: Yes Immunizations: TDAP >10years/unknown - POLST Patient has POLST: No POLST Status: DNR PD ED PE NORMAL - Vitals Vital signs reviewed: Yes (normal ) - General General: Alert and oriented X 3, No acute distress, Well developed/nourished - HEENT HEENT: Atraumatic, PERRL, EOMI - Neck Neck: Supple, no meningeal sign, No bony TTP - Cardiac Cardiac: RRR, No murmur - Respiratory Respiratory: No respiratory distress, Clear bilaterally - Abdomen Abdomen: Soft, Non tender - Back Back: No CVA TTP, No spinal TTP - Derm Derm: Normal color, Warm and dry, No rash - Extremities Extremities: No deformity, No edema - Neuro Neuro: Alert and oriented X 3, toolmaker helper 2-12 intact, No motor deficit, No sensory deficit, Normal speech Eye Opening: Spontaneous Motor: Obeys Commands Verbal: Oriented GCS Score: 15 - Psych Psych: Normal mood, Normal affect Results - Vitals Vitals: Vital Signs - 24 hr 11/07/21 11/07/21 11/07/21 01:46 02:34 05:59 Temperature 36.4 C L Heart Rate 99 74 76 Respiratory 18 16 16 Rate Blood Pressure 100/65 94/62 132/76 H O2 Saturation 97 99 99 Oxygen O2 Source Room air - Labs Labs: Laboratory Tests 11/07/21 11/07/21 03:19 03:19 WBC 6.7 RBC 3.59 L Hgb 8.1 L Hct 27.6 L MCV 76.9 L MCH 22.6 L MCHC 29.3 L RDW 21.2 H Plt Count 395 MPV 9.1 Neut # (Auto) 3.9 Lymph # (Auto) 1.7 [place] # (Auto) 0.6 Eos # (Auto) 0.5 Baso # (Auto) 0.0 Absolute Nucleated RBC 0.00 Nucleated RBC % 0.0 Manual Slide Review Indicated WBC Morphology NORMAL APPEARANCE Platelet Estimate NORMAL (130-450,000) Platelet Morphology NORMAL APPEARANCE RBC Morph Micro Appear 1+ OVALOCYTES Sodium 137 Potassium 3.4 L Chloride 106 Carbon Dioxide 21 Anion Gap 10.0 BUN 15 Creatinine 0.9 Estimated GFR (MDRD) 67 L Glucose 110 H Calcium 7.9 L Total Bilirubin 0.2 AST 22 ALT 26 Alkaline Phosphatase 65 Total Protein 5.9 L Albumin 3.2 Globulin 2.7 Albumin/Globulin Ratio 1.2 Lipase 28 Procedures - IVC sono (time) 0240 Bedside IVC sono: IVC measures (cm) (0.87), Dehydration (est 2 liter deficit) PD MEDICAL DECISION MAKING - ED course Complexity details: reviewed old records, reviewed results, re-evaluated patient, considered differential, d/w patient ED course: 46 y/o diabetic female with a low blood sugar is transported with sugar of 85 and arrives with some dehydration. She is administered saline. Departure - Departure Disposition: 01 Home, Self Care Clinical Impression: Hypoglycemia Condition: Stable Instructions: ED Diabetes Hypoglycemia Insulin React Follow-Up: Isatu Belle MD [Primary Care Provider] -
[2021-11-07 07:34] VITALS: BP 114/68
== END 2021-11-07 07:24 | disposition home or self-care (01) ==
LOC: EDUNIT# → SUPCPDRO 01:42 → ED 01:42
DX: E10.42 Type 1 diabetes mellitus with diabetic polyneuropathy (principal); E10.649 Type 1 diabetes mellitus with hypoglycemia without coma; Z79.4 Long term (current) use of insulin; F17.200 Nicotine dependence, unspecified, uncomplicated; Z66 Do not resuscitate; E86.0 Dehydration
CPT/HCPCS: 36415; 80053; 83690; 85025; 96360; 96361; 99283; 99284; A9270; 81001; 81003; 87086

== ENCOUNTER 2021-11-18 04:54 | Emergency (ER) | payer MEDICARE, MEDICAID ==
--- NOTE | 2021-11-18 04:55 | ED Physician Documentation ---
History of Present Illness - Stated complaint Stated Complaint: LOW BLOOD SUGAR - History obtained from History obtained from: Patient, EMS - History of Present Illness Timing: Prior to arrival Pain level now: 0 Improved by: D50 administered by EMS - Additonal information Additional information: BIBA for AMS, hypoglycemia. Patient checked her blood sugar tonight, found it to be in 180s but she figured she had eaten a big dinner and decided she should take 10 units of her novolin whereas she is supposed to take 3 units. 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 EMS FSBS was 27, administered 1 amp D50 and repeat blood sugar was in the 80s, and just as they were pulling in to ED ambulance bay, repeat FSBS was 105. This increase in blood sugar correlated directly with a rapid return to baseline mental status. She was also given 400cc NS IV en route. Patient has no c/o at this time. This is her third [facility] ED visit this month for similar problem Review of Systems Constitutional: reports: Reviewed and negative Cardiac: reports: Reviewed and negative Respiratory: reports: Reviewed and negative GI: reports: Reviewed and negative Neurologic: reports: Altered mental status (resolved with D50 given by medics), Reviewed and negative. denies: Generalized weakness, Focal weakness, Numbness PD PAST MEDICAL HISTORY - Past Medical History Past Medical History: Yes Endocrine/Autoimmune: Type 1 diabetes - Present Medications Home Medications: Ambulatory Orders Medication Instructions Recorded Confirmed Prazosin HCl 5 mg PO QPM 01/23/19 11/18/21 Trazodone HCl 300 mg PO QPM 01/23/19 11/18/21 Duloxetine HCl [Cymbalta] 60 mg PO BID 09/15/19 11/18/21 Insulin Aspart [Novolog] 30 - 40 units SQ .SLIDING SCALE 03/30/20 11/18/21 Butalb/Acetaminophen/Caffeine 1 cap PO Q4H PRN 11/06/20 11/18/21 [Fioricet 50-300-40 mg Capsule] Eszopiclone [Lunesta] 3 mg PO QPM PRN 11/06/20 11/18/21 Glucagon,Human Recombinant 1 mg IJ PRN PRN 11/06/20 11/18/21 [Glucagon Emergency Kit] Metoclopramide [Reglan] 10 mg PO Q6H PRN 11/06/20 11/18/21 Mirabegron [Myrbetriq] 50 mg PO DAILY 11/06/20 11/18/21 Pantoprazole Sodium [Protonix] 20 mg PO QDAC 11/06/20 11/18/21 Promethazine [Phenergan] 25 mg PO Q6HR PRN #14 tablet 11/06/20 11/18/21 Simvastatin [Zocor] 20 mg PO QPM 11/06/20 11/18/21 Spironolactone [Aldactone] 100 mg PO DAILY 11/06/20 11/18/21 methocarbamoL [Robaxin-750] 750 mg PO Q6H PRN 11/06/20 11/18/21 Levothyroxine [Synthroid] 125 mcg PO DAILY 02/21/21 11/18/21 Pen Needle, Diabetic [Insulin Pen 1 each MC BID #150 ndl 02/21/21 11/18/21 Needle] Sulfamethox/Trimeth 800/160 1 tab PO BID 03/08/21 11/18/21 [Bactrim Ds] Ibuprofen [Motrin] 800 mg PO Q8H PRN #10 tablet 03/14/21 11/18/21 Metoclopramide [Reglan] 10 mg PO Q6H PRN #10 tablet 03/14/21 11/18/21 Ferrous Sulfate [Feosol] 325 mg PO DAILY #30 tablet 09/19/21 11/18/21 Insulin Glargine [Lantus Solostar] 10 unit SQ QDAC #3 pe 09/19/21 11/18/21 Insulin Regular, Human [Novolin R 3 unit SQ TIDWM #2 pe 09/19/21 11/18/21 Flexpen] Venlafaxine ER [Effexor ER] 75 mg PO DAILY 09/19/21 11/18/21 - Allergies Allergies/Adverse Reactions: Allergies Allergy/AdvReac Type Severity Reaction Status Date / Time carisoprodol [From Soma] Allergy Unknown Verified 11/18/21 05:03 divalproex sodium Allergy Rash Verified 11/18/21 05:03 [From Depakote] gabapentin [From Neurontin] Allergy Edema Verified 11/18/21 05:03 lidocaine Allergy Unknown Verified 11/18/21 05:03 nitrofurantoin Allergy Rash Verified 11/18/21 05:03 macrocrystalline * [From Macrodantin] nortriptyline Allergy Unknown Verified 11/18/21 05:03 ondansetron [From Zofran] Allergy Hives Verified 11/18/21 05:03 ondansetron HCl * Allergy Hives Verified 11/18/21 05:03 [From Zofran (as hydrochloride)] pregabalin [From Lyrica] Allergy Headache Verified 11/18/21 05:03 - Living Situation Living Situation: reports: With family Living Arrangement: reports: At home PD ED PE NORMAL - Vitals Vital signs reviewed: Yes - General General: Alert and oriented X 3, No acute distress, Other (obese) - HEENT HEENT: Moist mucous membranes - Neck Neck: Supple, no meningeal sign - Cardiac Cardiac: RRR, No murmur - Respiratory Respiratory: No respiratory distress, Clear bilaterally - Abdomen Abdomen: Soft, Non tender - Neuro Neuro: Alert and oriented X 3 Eye Opening: Spontaneous Motor: Obeys Commands Verbal: Oriented GCS Score: 15 Results - Vitals Vitals: Vital Signs - 24 hr 11/18/21 11/18/21 11/18/21 05:03 06:01 08:48 Temperature 35.8 C L Heart Rate 81 83 95 Respiratory 16 16 16 Rate Blood Pressure 122/100 H 140/92 H 152/108 H O2 Saturation 98 99 100 Oxygen O2 Source Room air - Labs Labs: Laboratory Tests 11/18/21 11/18/21 11/18/21 05:15 05:50 05:50 WBC 6.5 RBC 4.68 Hgb 10.6 L Hct 36.2 L MCV 77.4 L MCH 22.6 L MCHC 29.3 L RDW 21.2 H Plt Count 417 MPV 9.7 Neut # (Auto) 5.3 Lymph # (Auto) 0.7 L [place] # (Auto) 0.4 Eos # (Auto) 0.0 Baso # (Auto) 0.0 Absolute Nucleated RBC 0.00 Nucleated RBC % 0.0 Manual Slide Review Indicated WBC Morphology NORMAL APPEARANCE Platelet Estimate NORMAL (130-450,000) Platelet Morphology NORMAL APPEARANCE RBC Morph Micro Appear 1+ ANISOCYTOSIS Sodium 140 Potassium 3.9 Chloride 104 Carbon Dioxide 24 Anion Gap 12.0 BUN 12 Creatinine 0.7 Estimated GFR (MDRD) 89 Glucose 103 H Calcium 8.7 Urine Color YELLOW Urine Clarity CLEAR Urine pH 5.5 Ur Specific [place] 1.015 Urine Protein NEGATIVE Urine Glucose (UA) NEGATIVE Urine Ketones NEGATIVE Urine Occult Blood NEGATIVE Urine Nitrite NEGATIVE Urine Bilirubin NEGATIVE Urine Urobilinogen 0.2 (NORMAL) Ur Leukocyte Esterase NEGATIVE Ur Microscopic Review NOT INDICATED Urine Culture Comments NOT INDICATED PD MEDICAL DECISION MAKING - ED course Complexity details: reviewed old records, reviewed results, re-evaluated patient, considered differential, d/w patient ED course: FSBS during ED stay ranged from 80-160s. She was AAOx3 and tolerating PO, eating crackers and taking PO fluids as well. The novolin was last taken around 9 PM last night and should thus be wearing/worn off by now. Basic blood tests and UA are without remarkable/concerning findings. She developed mild generalized headache later in her stay and given acetaminophen for this, subsequently discharged home with instruction to strictly follow her prescribed insulin regimen and to follow up with her primary care provider to review her insulin regimen to see if changes need to be made Departure - Departure Disposition: 01 Home, Self Care Clinical Impression: Hypoglycemia Condition: Stable Instructions: ED Diabetes Hypoglycemia Insulin React Comments: Hold off on any morning insulin for now. Small frequent foods in ensure your blood sugar is holding okay. If remaining normal, resume your typical medications this afternoon. Be sure to stay closely with your normal insulin regimen. If you have not elevated blood sugar reading, do not take extra a insulin more than your prescribed amounts to compensate as it can cause your sugar to then go too low. Regular caloric intake daily and stay well-hydrated. Continue your other usual medicines. Discharge Date/Time: 11/18/21 09:59
[2021-11-18] MEDS: DEXTROSE 50% ABBOJECT 25 GM/50 ML SYRINGE IVP STA (05:18)
[2021-11-18] MEDS ORDERED: DEXTROSE 50% ABBOJECT 25 GM/50 ML SYRINGE ONE (05:21)
[2021-11-18 05:35] LABS: BILIRUBIN,URINE NEGATIVE (NEGATIVE); GLUCOSE, URINE (UA) NEGATIVE (NEGATIVE); KETONES,URINE (UA) NEGATIVE (NEGATIVE); LEUKOCYTE ESTERASE, URINE NEGATIVE (NEGATIVE); NITRITE,URINE NEGATIVE (NEGATIVE); OCCULT BLOOD,URINE NEGATIVE (NEGATIVE); PH,URINE 5.5 PH (5.0-7.5); PROTEIN,URINE NEGATIVE (NEGATIVE); UROBILINOGEN,URINE 0.2 (NORMAL) E.U./dL (NORMAL)
[2021-11-18 05:37] LABS: CLARITY,URINE CLEAR (CLEAR)
[2021-11-18 05:56] LABS: BASOPHILS % (AUTO) 0.5 %; EOSINOPHILS % (AUTO) 0.3 %; HCT - HEMATOCRIT 36.2 % (37.0-47.0); HGB - HEMOGLOBIN 10.6 g/dL (12.0-16.0); LYMPHOCYTES # (AUTO) 0.7 10^3/uL (1.5-3.5); LYMPHOCYTES % (AUTO) 10.9 %; MEAN CORPUSCULAR HEMOGLOBIN 22.6 pg (27.0-31.0); MEAN CORPUSCULAR HGB CONC 29.3 g/dL (32.0-36.0); MEAN CORPUSCULAR VOLUME 77.4 fL (81.0-99.0); MEAN PLATELET VOLUME 9.7 fL (7.9-10.8); MONOCYTES # (AUTO) 0.4 10^3/uL (0.0-1.0); MONOCYTES % (AUTO) 6.5 %; NEUTROPHILS # (AUTO) 5.3 10^3/uL (1.5-6.6); NEUTROPHILS % (AUTO) 81.5 %; PLT - PLATELET COUNT 417 10^3/uL (130-450); RED BLOOD COUNT 4.68 10^6/uL (4.20-5.40); RED CELL DISTRIBUTION WIDTH 21.2 % (12.0-15.0); WHITE BLOOD COUNT 6.5 x10^3/uL (4.8-10.8)
[2021-11-18 05:58] LABS: SLIDE REVIEW? Indicated
[2021-11-18 06:07] LABS: CALCIUM 8.7 mg/dL (8.5-10.3); CREATININE 0.7 mg/dL (0.4-1.0); POTASSIUM 3.9 mmol/L (3.5-5.0)
[2021-11-18 06:13] LABS: PLATELET ESTIMATE, MANUAL NORMAL (130-450,000) (NORMAL); PLATELET MORPHOLOGY NORMAL APPEARANCE (NORMAL); RBC MORPHOLOGY (MULTIPLE) 1+ ANISOCYTOSIS (NORMAL); WBC MORPHOLOGY (MULTIPLE) NORMAL APPEARANCE (NORMAL)
[2021-11-18] MEDS: ACETAMINOPHEN 325 MG TABLET PO STA (07:28)
[2021-11-18 08:49] VITALS: BP 152/108
== END 2021-11-18 09:59 | disposition home or self-care (01) ==
LOC: EDUNIT# → ED 04:54
DX: E10.649 Type 1 diabetes mellitus with hypoglycemia without coma (principal); Z79.4 Long term (current) use of insulin
CPT/HCPCS: 36415; 80048; 81003; 85025; 96374; 99283; A9270; 81001; 87086

== ENCOUNTER 2022-01-24 19:22 | Outpatient (CLI) | payer MEDICARE, MEDICAID | END 2022-01-24 19:23 | disposition critical access hospital (66) | LOC: EMS 19:22 | DX: R41.82 Altered mental status, unspecified (principal); E10.649 Type 1 diabetes mellitus with hypoglycemia without coma | CPT/HCPCS: A0425; A0427 ==

== ENCOUNTER 2022-01-24 19:42 | Inpatient (IN) | payer MEDICARE, MEDICAID ==
[2022-01-24 20:19] LABS: BASOPHILS # (AUTO) 0.1 10^3/uL (0.0-0.1); BASOPHILS % (AUTO) 0.9 %; EOSINOPHILS # (AUTO) 0.1 10^3/uL (0.0-0.7); EOSINOPHILS % (AUTO) 1.6 %; HCT - HEMATOCRIT 29.1 % (37.0-47.0); HGB - HEMOGLOBIN 8.7 g/dL (12.0-16.0); LYMPHOCYTES # (AUTO) 0.7 10^3/uL (1.5-3.5); LYMPHOCYTES % (AUTO) 10.3 %; MEAN CORPUSCULAR HEMOGLOBIN 23.6 pg (27.0-31.0); MEAN CORPUSCULAR HGB CONC 29.9 g/dL (32.0-36.0); MEAN CORPUSCULAR VOLUME 78.9 fL (81.0-99.0); MEAN PLATELET VOLUME 9.1 fL (7.9-10.8); MONOCYTES # (AUTO) 0.6 10^3/uL (0.0-1.0); MONOCYTES % (AUTO) 8.7 %; NEUTROPHILS # (AUTO) 5.3 10^3/uL (1.5-6.6); NEUTROPHILS % (AUTO) 78.1 %; PLT - PLATELET COUNT 467 10^3/uL (130-450); RED BLOOD COUNT 3.69 10^6/uL (4.20-5.40); RED CELL DISTRIBUTION WIDTH 17.3 % (12.0-15.0); WHITE BLOOD COUNT 6.8 x10^3/uL (4.8-10.8)
[2022-01-24 20:32] LABS: ALBUMIN 3.1 g/dL (3.2-5.5); BILIRUBIN,TOTAL 0.4 mg/dL (0.2-1.0); CALCIUM 8.2 mg/dL (8.5-10.3); CREATININE 0.8 mg/dL (0.4-1.0); POTASSIUM 3.4 mmol/L (3.5-5.0); TOTAL PROTEIN 6.2 g/dL (6.7-8.2)
--- NOTE | 2022-01-24 20:45 | ED Physician Documentation ---
History of Present Illness - Stated complaint Stated Complaint: LOW BLOOD SUGAR - Chief complaint Chief Complaint: General - History obtained from History obtained from: Patient - Additonal information Additional information: 46-year-old woman with diabetes. She ate lunch she says about noon and took 2 units of Novolin at that time. Subsequently did not have any more insulin but developed symptoms of hypoglycemia including sweatiness and confusion at 6 PM. Her blood sugar was checked several times at home and in the range of 20-30. She ate but was subsequently given IV dextrose by EMS with rebound of her blood sugars and she feels fine now. She is not on any long-acting insulin. 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 APPLIER: Other : Kidney stones HEENT: Chronic vision loss, Chronic sinusitis Psych: Depression Musculoskeletal: Osteoarthritis, Fibromyalgia, Fatigue, Chronic back pain Derm: None - Past Surgical History Past Surgical History: Yes General: Gastric surgery Ortho: Other /ENAMEL APPLIER: section, Endometrial ablation, Tubal ligation HEENT: Tonsil/Adenoidectomy - Present Medications Home Medications: Ambulatory Orders Medication Instructions Recorded Confirmed Prazosin HCl 5 mg PO QPM 01/23/19 11/18/21 Trazodone HCl 300 mg PO QPM 01/23/19 11/18/21 Duloxetine HCl [Cymbalta] 60 mg PO BID 09/15/19 11/18/21 Insulin Aspart [Novolog] 30 - 40 units SQ .SLIDING SCALE 03/30/20 11/18/21 Butalb/Acetaminophen/Caffeine 1 cap PO Q4H PRN 11/06/20 11/18/21 [Fioricet 50-300-40 mg Capsule] Eszopiclone [Lunesta] 3 mg PO QPM PRN 11/06/20 11/18/21 Glucagon,Human Recombinant 1 mg IJ PRN PRN 11/06/20 11/18/21 [Glucagon Emergency Kit] Metoclopramide [Reglan] 10 mg PO Q6H PRN 11/06/20 11/18/21 Mirabegron [Myrbetriq] 50 mg PO DAILY 11/06/20 11/18/21 Pantoprazole Sodium [Protonix] 20 mg PO QDAC 11/06/20 11/18/21 Promethazine [Phenergan] 25 mg PO Q6HR PRN #14 tablet 11/06/20 11/18/21 Simvastatin [Zocor] 20 mg PO QPM 11/06/20 11/18/21 Spironolactone [Aldactone] 100 mg PO DAILY 11/06/20 11/18/21 methocarbamoL [Robaxin-750] 750 mg PO Q6H PRN 11/06/20 11/18/21 Levothyroxine [Synthroid] 125 mcg PO DAILY 02/21/21 11/18/21 Pen Needle, Diabetic [Insulin Pen 1 each MC BID #150 ndl 02/21/21 11/18/21 Needle] Sulfamethox/Trimeth 800/160 1 tab PO BID 03/08/21 11/18/21 [Bactrim Ds] Ibuprofen [Motrin] 800 mg PO Q8H PRN #10 tablet 03/14/21 11/18/21 Metoclopramide [Reglan] 10 mg PO Q6H PRN #10 tablet 03/14/21 11/18/21 Ferrous Sulfate [Feosol] 325 mg PO DAILY #30 tablet 09/19/21 11/18/21 Insulin Glargine [Lantus Solostar] 10 unit SQ QDAC #3 pe 09/19/21 11/18/21 Insulin Regular, Human [Novolin R 3 unit SQ TIDWM #2 pe 09/19/21 11/18/21 Flexpen] Venlafaxine ER [Effexor ER] 75 mg PO DAILY 09/19/21 11/18/21 - Allergies Allergies/Adverse Reactions: Allergies Allergy/AdvReac Type Severity Reaction Status Date / Time carisoprodol [From Soma] Allergy Unknown Verified 11/18/21 05:03 divalproex sodium Allergy Rash Verified 11/18/21 05:03 [From Depakote] gabapentin [From Neurontin] Allergy Edema Verified 11/18/21 05:03 lidocaine Allergy Unknown Verified 11/18/21 05:03 nitrofurantoin Allergy Rash Verified 11/18/21 05:03 macrocrystalline * [From Macrodantin] nortriptyline Allergy Unknown Verified 11/18/21 05:03 ondansetron [From Zofran] Allergy Hives Verified 11/18/21 05:03 ondansetron HCl * Allergy Hives Verified 11/18/21 05:03 [From Zofran (as hydrochloride)] pregabalin [From Lyrica] Allergy Headache Verified 11/18/21 05:03 - Social History Does the pt smoke?: Yes Smoking Status: Current every day smoker Does the pt drink ETOH?: No Does the pt have substance abuse?: No - Immunizations Immunizations are current?: Yes Immunizations: TDAP >10years/unknown - POLST Patient has POLST: No POLST Status: DNR PD ED PE NORMAL - Vitals Vital signs reviewed: Yes - General General: Alert and oriented X 3, No acute distress - HEENT HEENT: PERRL, EOMI - Neck Neck: Supple, no meningeal sign, No bony TTP - Cardiac Cardiac: RRR, No murmur - Respiratory Respiratory: No respiratory distress, Clear bilaterally - Abdomen Abdomen: Non tender - Back Back: No CVA TTP, No spinal TTP - Derm Derm: Normal color, Warm and dry - Extremities Extremities: No edema, No calf tenderness / cord - Neuro Neuro: Alert and oriented X 3, Normal speech Results - Vitals Vitals: Vital Signs - 24 hr 01/24/22 01/24/22 19:47 21:51 Temperature 36.6 C Heart Rate 99 96 Respiratory 18 14 Rate Blood Pressure 151/81 H 138/82 H O2 Saturation 100 95 Oxygen O2 Source Room air - Labs Labs: Laboratory Tests 01/24/22 01/24/22 01/24/22 20:12 20:12 20:35 WBC 6.8 RBC 3.69 L Hgb 8.7 L Hct 29.1 L MCV 78.9 L MCH 23.6 L MCHC 29.9 L RDW 17.3 H Plt Count 467 H MPV 9.1 Neut # (Auto) 5.3 Lymph # (Auto) 0.7 L [place] # (Auto) 0.6 Eos # (Auto) 0.1 Baso # (Auto) 0.1 Absolute Nucleated RBC 0.00 Nucleated RBC % 0.0 Sodium 138 Potassium 3.4 L Chloride 104 Carbon Dioxide 23 Anion Gap 11.0 BUN 21 H Creatinine 0.8 Estimated GFR (MDRD) 77 L Glucose 177 H Calcium 8.2 L Total Bilirubin 0.4 AST 23 ALT 23 Alkaline Phosphatase 66 Total Protein 6.2 L Albumin 3.1 L Globulin 3.1 Albumin/Globulin Ratio 1.0 Lipase 26 Urine Color YELLOW Urine Clarity CLEAR Urine pH 5.5 Ur Specific [place] 1.025 Urine Protein TRACE Urine Glucose (UA) 250 H Urine Ketones NEGATIVE Urine Occult Blood TRACE-INTA Urine Nitrite NEGATIVE Urine Bilirubin NEGATIVE Urine Urobilinogen 0.2 (NORMAL) Ur Leukocyte Esterase NEGATIVE Ur Microscopic Review NOT INDICATED Urine Culture Comments NOT INDICATED Urine HCG, Qual 01/24/22 20:35 WBC RBC Hgb Hct MCV MCH MCHC RDW Plt Count MPV Neut # (Auto) Lymph # (Auto) [place] # (Auto) Eos # (Auto) Baso # (Auto) Absolute Nucleated RBC Nucleated RBC % Sodium Potassium Chloride Carbon Dioxide Anion Gap BUN Creatinine Estimated GFR (MDRD) Glucose Calcium Total Bilirubin AST ALT Alkaline Phosphatase Total Protein Albumin Globulin Albumin/Globulin Ratio Lipase Urine Color Urine Clarity Urine pH Ur Specific [place] Urine Protein Urine Glucose (UA) Urine Ketones Urine Occult Blood Urine Nitrite Urine Bilirubin Urine Urobilinogen Ur Leukocyte Esterase Ur Microscopic Review Urine Culture Comments Urine HCG, Qual NEGATIVE PD MEDICAL DECISION MAKING - ED course ED course: 46-year-old woman presents with symptomatic hypoglycemia. Not clear why as she is not on any long-acting insulin and this happened about 6 hours after taking a very low-dose of sliding scale Novolin. She was observed for a few hours and her blood sugar dipped again into the 30s and as such was rebolused D50 and started on a D10 drip and I spoke with Dr. Allan for observation at 10 PM. Departure - Departure Disposition: ED Place in Observation Clinical Impression: Hypoglycemia Condition: Stable
[2022-01-24 20:46] LABS: BILIRUBIN,URINE NEGATIVE (NEGATIVE); GLUCOSE, URINE (UA) 250 mg/dL (NEGATIVE); KETONES,URINE (UA) NEGATIVE (NEGATIVE); LEUKOCYTE ESTERASE, URINE NEGATIVE (NEGATIVE); NITRITE,URINE NEGATIVE (NEGATIVE); OCCULT BLOOD,URINE TRACE-INTA (NEGATIVE); PH,URINE 5.5 PH (5.0-7.5); PROTEIN,URINE TRACE mg/dL (NEGATIVE); UROBILINOGEN,URINE 0.2 (NORMAL) E.U./dL (NORMAL)
[2022-01-24 20:57] LABS: CLARITY,URINE CLEAR (CLEAR)
[2022-01-24 20:58] LABS: HCG UR QUAL NEGATIVE
[2022-01-24] MEDS ORDERED: traZODone 50 MG TABLET PO STA (21:55)
[2022-01-24] MEDS ORDERED: DEXTROSE 50% ABBOJECT 25 GM/50 ML SYRINGE IVP STA (21:56)
[2022-01-24] MEDS ORDERED: SODIUM CHLORIDE FLUSH 0.9% 10 ML SYRINGE IVP PRN (22:01)
[2022-01-24] MEDS: DEXTROSE 10% 1,000 ML IV SCH (22:05)
[2022-01-24] MEDS ORDERED: POTASSIUM CHLORIDE 20 MEQ TABLET PO STA (22:09)
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
[2022-01-24] MEDS ORDERED: ZOLPIDEM 5 MG TABLET PO PRN (22:32)
[2022-01-24 22:37] LABS: ESTIMATED AVERAGE GLUCOSE 171 mg/dL (70-100); HEMOGLOBIN A1c% 7.6 % (4.27-6.07)
[2022-01-24 22:46] LABS: % IRON SATURATION 2 % (20-50); IRON 9 ug/dL (28-170); TOTAL IRON BINDING CAPACITY 367 ug/dL (250-450); TRANSFERRIN 262 mg/dL (192-382)
[2022-01-24 22:55] LABS: THYROID STIMULATING HORMONE 4.37 uIU/mL (0.34-5.60)
[2022-01-24] MEDS ORDERED: POTASSIUM CHLORIDE 20 MEQ TABLET PO ONE (23:32)
[2022-01-25] MEDS ORDERED: DEXTROSE 50% ABBOJECT 25 GM/50 ML SYRINGE IVP ONE (00:59)
[2022-01-25] MEDS ORDERED: DEXTROSE 5% 1,000 ML IV SCH (01:00)
[2022-01-25] MEDS: SODIUM CHLORIDE FLUSH 0.9% 10 ML SYRINGE IVP SCH ×3 (01:25→16:54)
[2022-01-25] MEDS: ACETAMINOPHEN 325 MG TABLET PO PRN ×3 (01:51→13:40)
[2022-01-25] MEDS: DEXTROSE 10% 1,000 ML IV SCH (02:25)
[2022-01-25 05:15] LABS: BASOPHILS # (AUTO) 0.1 10^3/uL (0.0-0.1); BASOPHILS % (AUTO) 0.9 %; EOSINOPHILS # (AUTO) 0.2 10^3/uL (0.0-0.7); EOSINOPHILS % (AUTO) 4.1 %; HCT - HEMATOCRIT 27.2 % (37.0-47.0); LYMPHOCYTES # (AUTO) 1.7 10^3/uL (1.5-3.5); LYMPHOCYTES % (AUTO) 32.1 %; MEAN CORPUSCULAR HEMOGLOBIN 23.2 pg (27.0-31.0); MEAN CORPUSCULAR HGB CONC 29.4 g/dL (32.0-36.0); MEAN CORPUSCULAR VOLUME 78.8 fL (81.0-99.0); MEAN PLATELET VOLUME 9.3 fL (7.9-10.8); MONOCYTES # (AUTO) 0.5 10^3/uL (0.0-1.0); MONOCYTES % (AUTO) 8.8 %; NEUTROPHILS # (AUTO) 2.9 10^3/uL (1.5-6.6); NEUTROPHILS % (AUTO) 53.7 %; PLT - PLATELET COUNT 464 10^3/uL (130-450); RED BLOOD COUNT 3.45 10^6/uL (4.20-5.40); RED CELL DISTRIBUTION WIDTH 17.2 % (12.0-15.0); WHITE BLOOD COUNT 5.3 x10^3/uL (4.8-10.8)
[2022-01-25 05:28] LABS: CREATININE 0.7 mg/dL (0.4-1.0)
[2022-01-25] MEDS: VENLAFAXINE ER 75 MG CAPSULE PO SCH (08:11)
[2022-01-25] MEDS: DULoxetine 30 MG CAPSULE PO SCH ×2 (08:11→20:35)
[2022-01-25] MEDS: FERROUS SULFATE 325 MG TABLET PO SCH (08:11)
[2022-01-25] MEDS: LEVOTHYROXINE 125 MCG TABLET PO SCH (08:11)
--- NOTE | 2022-01-25 08:45 | PHARMACY PROGRESS NOTE ---
- Best Possible Medication History Admit Date and Time: 01/24/222200 Processed by: Pharmacy Medication History completed: Yes Patient Interview: Completed Secondary Source(s): Pharmacy records, Insurance records As the person ultimately responsible for medication therapy, providers are able to order a medication from an existing home medication list in [facility] via the "Reconcile Routine" prior to Confirmation of that medication by director decision support. Such practice is discouraged except when the physician, in their clinical judgment, deems that a medical need exists for a medication without regard to previous use.
[2022-01-25] MEDS ORDERED: INSULIN ASPART 300 UNIT/3 ML PEN SUBQ ONE ×3 (09:13→20:21)
[2022-01-25] MEDS: BUTALB/ACETAM/CAFF 50/325/40MG TABLET PO PRN ×3 (10:05→19:05)
--- NOTE | 2022-01-25 14:33 | PROVIDER PROGRESS NOTE ---
Subjective - Prog Note Date Prog Note Date: 01/25/22 Prog Note Time: 16:28 - Subjective Subjective: She says she is just waiting. Waiting to see if her glucose rebounds. Her main problem today has been inability to urinate. She did try and get up and there was scant urination produced and a bladder scan after voiding still showed 520 cc of urine so I did an in and out straight cath. She says that she does have intermittent problems with this but cannot say why. Nobody is ever explained to her why she has urinary retention.She is asking for Luz Elena to help her with her history of gastroparesis. Home medication list has her on Cymbalta, Detrol, venlafaxine, butalbital, Lunesta, Myrbetriq, prazosin and methocarbamol. She is also on trazodone. Many of these drugs cause urinary retention or dry mouth. She denies chest pain, palpitations, shortness of breath. Current Medications - Current Medications Current Medications: Active Medications Acetaminophen (Acetaminophen 325 Mg Tablet) 650 mg PO Q4HR PRN PRN Reason: Pain 1 to 4 Last Admin: 01/25/22 13:40 Dose: 650 mg Acetaminophen/Butalbital/Caffeine (Butalb/Acetam/Caff 50/325/40mg Tablet) 1 tab PO Q4HR PRN PRN Reason: HEADACHE Last Admin: 01/25/22 14:32 Dose: 1 tab Duloxetine HCl (Duloxetine 30 Mg Capsule) 60 mg PO BID [facility] Last Admin: 01/25/22 08:11 Dose: 60 mg Ferrous Sulfate (Ferrous Sulfate 325 Mg Tablet) 325 mg PO DAILY [facility] Last Admin: 01/25/22 08:11 Dose: 325 mg Levothyroxine Sodium (Levothyroxine 125 Mcg Tablet) 125 mcg PO DAILY [facility] Last Admin: 01/25/22 08:11 Dose: 125 mcg Metoclopramide HCl (Metoclopramide 10 Mg Tablet) [address] [facility] Sodium Chloride (Sodium Chloride Flush 0.9% 10 Ml Syringe) 10 ml IVP PRN PRN PRN Reason: NEEDED PER PROVIDER ORDERS Sodium Chloride (Sodium Chloride Flush 0.9% 10 Ml Syringe) 10 ml IVP 0100,0900,1700 [facility] Last Admin: 01/25/22 08:12 Dose: 10 ml Venlafaxine HCl (Venlafaxine Er 75 Mg Capsule) 75 mg PO DAILY [facility] Last Admin: 01/25/22 08:11 Dose: 75 mg Zolpidem Tartrate (Zolpidem 5 Mg Tablet) 10 mg PO QPM PRN PRN Reason: Insomnia Prazosin HCl 5 mg PO QPM 01/23/19 Trazodone HCl 300 mg PO QPM 01/23/19 Duloxetine HCl [Cymbalta] 60 mg PO BID 09/15/19 Butalb/Acetaminophen/Caffeine [Fioricet 50-300-40 mg Capsule] 1 cap PO Q4H PRN 11/06/20 Eszopiclone [Lunesta] 3 mg PO QPM PRN 11/06/20 Glucagon,Human Recombinant [Glucagon Emergency Kit] 1 mg IJ PRN PRN 11/06/20 Mirabegron [Myrbetriq] 50 mg PO QPM 11/06/20 Pantoprazole Sodium [Protonix] 20 mg PO QDAC 11/06/20 Simvastatin [Zocor] 20 mg PO QPM 11/06/20 Spironolactone [Aldactone] 100 mg PO DAILY 11/06/20 methocarbamoL [Robaxin-750] 750 mg PO Q6H PRN 11/06/20 Levothyroxine [Synthroid] 125 mcg PO DAILY 02/21/21 Venlafaxine ER [Effexor ER] 75 mg PO DAILY 09/19/21 Insulin Regular, Human [Novolin R Flexpen] 0 - 15 unit SQ TIDWM 01/25/22 Metoclopramide [Reglan] 10 mg PO ACHS 01/25/22 Tolterodine Tartrate [Detrol LA] 2 mg PO DAILY 01/25/22 Objective - Vital Signs/Intake & Output Reviewed Vital Signs: Yes Vital Signs: Vital Signs x48h Temp Pulse Resp BP Pulse Ox 01/25/22 08:52 36.8 C 105 H 16 105/63 93 Intake & Output: Intake & Output 01/22/22 01/23/22 01/24/22 01/25/22 23:59 23:59 23:59 23:59 Intake Total 93.333 1030 Output Total 450 Balance 93.333 580 - Objective General Appearance: positive: No acute distress, Alert, Other (5 foot 7 inch white female who is 89 kg and looks older than stated age. Well-nourished.) Eyes Bilateral: positive: PERRL, EOMI Neck: positive: No JVD. negative: Stiff neck Respiratory: positive: No respiratory distress. negative: Wheezes, Rales, Rhonchi Cardiovascular: positive: Regular rate & rhythm. negative: Gallop/S4, Friction rub Abdomen: positive: Non-tender, No organomegaly, Nml bowel sounds, No distention, Other (Large obese pannus) Skin: positive: Warm, Dry Extremities: positive: Full ROM, No pedal edema Neurologic/Psychiatric: positive: Oriented x3, CN's nml (2-12), Motor nml - Lab Results Fish Bones: 01/25/22 05:04 01/25/22 05:04 Other Labs: Lab Results x24hrs 01/25/22 01/25/22 01/24/22 Range/Units 05:04 05:04 22:21 WBC 5.3 (4.8-10.8) x10^3/uL RBC 3.45 L (4.20-5.40) 10^6/uL Hgb 8.0 L (12.0-16.0) g/dL Hct 27.2 L (37.0-47.0) % MCV 78.8 L (81.0-99.0) fL MCH 23.2 L (27.0-31.0) pg MCHC 29.4 L (32.0-36.0) g/dL RDW 17.2 H (12.0-15.0) % Plt Count 464 H (130-450) 10^3/uL MPV 9.3 (7.9-10.8) fL Neut # (Auto) 2.9 (1.5-6.6) 10^3/uL Lymph # (Auto) 1.7 (1.5-3.5) 10^3/uL Mccormick # (Auto) 0.5 (0.0-1.0) 10^3/uL Eos # (Auto) 0.2 (0.0-0.7) 10^3/uL Baso # (Auto) 0.1 (0.0-0.1) 10^3/uL Absolute Nucleated RBC 0.00 x10^3/uL Nucleated RBC % 0.0 /100WBC Sodium 133 L (135-145) mmol/L Potassium 4.0 (3.5-5.0) mmol/L Chloride 100 L (101-111) mmol/L Carbon Dioxide 24 (21-32) mmol/L Anion Gap 9.0 (6-13) BUN 17 (6-20) mg/dL Creatinine 0.7 (0.4-1.0) mg/dL Estimated GFR (MDRD) 89 (>89) Glucose 278 H (70-100) mg/dL Estimat Average Glucose (70-100) mg/dL Hemoglobin A1c % (4.27-6.07) % Calcium 8.0 L (8.5-10.3) mg/dL Iron (28-170) ug/dL TIBC (250-450) ug/dL % Saturation (20-50) % Transferrin (192-382) mg/dL Ferritin (11.0-306.8) ng/mL Total Bilirubin (0.2-1.0) mg/dL AST (10-42) IU/L ALT (10-60) IU/L Alkaline Phosphatase (42-121) IU/L Total Protein (6.7-8.2) g/dL Albumin (3.2-5.5) g/dL Globulin (2.1-4.2) g/dL Albumin/Globulin Ratio (1.0-2.2) Lipase (22-51) U/L TSH (0.34-5.60) uIU/mL Urine Color Urine Clarity (CLEAR) Urine pH (5.0-7.5) PH Ur Specific [place] (1.002-1.030) Urine Protein (NEGATIVE) mg/dL Urine Glucose (UA) (NEGATIVE) mg/dL Urine Ketones (NEGATIVE) mg/dL Urine Occult Blood (NEGATIVE) Urine Nitrite (NEGATIVE) Urine Bilirubin (NEGATIVE) Urine Urobilinogen (NORMAL) E.U./dL Ur Leukocyte Esterase (NEGATIVE) Ur Microscopic Review Urine Culture Comments Urine HCG, Qual SARS-CoV-2 (PCR) NOT DETECTED 01/24/22 01/24/22 01/24/22 Range/Units 22:17 22:17 22:17 WBC (4.8-10.8) x10^3/uL RBC (4.20-5.40) 10^6/uL Hgb (12.0-16.0) g/dL Hct (37.0-47.0) % MCV (81.0-99.0) fL MCH (27.0-31.0) pg MCHC (32.0-36.0) g/dL RDW (12.0-15.0) % Plt Count (130-450) 10^3/uL MPV (7.9-10.8) fL Neut # (Auto) (1.5-6.6) 10^3/uL Lymph # (Auto) (1.5-3.5) 10^3/uL Mccormick # (Auto) (0.0-1.0) 10^3/uL Eos # (Auto) (0.0-0.7) 10^3/uL Baso # (Auto) (0.0-0.1) 10^3/uL Absolute Nucleated RBC x10^3/uL Nucleated RBC % /100WBC Sodium (135-145) mmol/L Potassium (3.5-5.0) mmol/L Chloride (101-111) mmol/L Carbon Dioxide (21-32) mmol/L Anion Gap (6-13) BUN (6-20) mg/dL Creatinine (0.4-1.0) mg/dL Estimated GFR (MDRD) (>89) Glucose (70-100) mg/dL Estimat Average Glucose 171 H (70-100) mg/dL Hemoglobin A1c % 7.6 H (4.27-6.07) % Calcium (8.5-10.3) mg/dL Iron 9 L (28-170) ug/dL TIBC 367 (250-450) ug/dL % Saturation 2 L (20-50) % Transferrin 262 (192-382) mg/dL Ferritin 6.0 L (11.0-306.8) ng/mL Total Bilirubin (0.2-1.0) mg/dL AST (10-42) IU/L ALT (10-60) IU/L Alkaline Phosphatase (42-121) IU/L Total Protein (6.7-8.2) g/dL Albumin (3.2-5.5) g/dL Globulin (2.1-4.2) g/dL Albumin/Globulin Ratio (1.0-2.2) Lipase (22-51) U/L TSH 4.37 (0.34-5.60) uIU/mL Urine Color Urine Clarity (CLEAR) Urine pH (5.0-7.5) PH Ur Specific [place] (1.002-1.030) Urine Protein (NEGATIVE) mg/dL Urine Glucose (UA) (NEGATIVE) mg/dL Urine Ketones (NEGATIVE) mg/dL Urine Occult Blood (NEGATIVE) Urine Nitrite (NEGATIVE) Urine Bilirubin (NEGATIVE) Urine Urobilinogen (NORMAL) E.U./dL Ur Leukocyte Esterase (NEGATIVE) Ur Microscopic Review Urine Culture Comments Urine HCG, Qual SARS-CoV-2 (PCR) 01/24/22 01/24/22 01/24/22 Range/Units 20:35 20:35 20:12 WBC (4.8-10.8) x10^3/uL RBC (4.20-5.40) 10^6/uL Hgb (12.0-16.0) g/dL Hct (37.0-47.0) % MCV (81.0-99.0) fL MCH (27.0-31.0) pg MCHC (32.0-36.0) g/dL RDW (12.0-15.0) % Plt Count (130-450) 10^3/uL MPV (7.9-10.8) fL Neut # (Auto) (1.5-6.6) 10^3/uL Lymph # (Auto) (1.5-3.5) 10^3/uL Mccormick # (Auto) (0.0-1.0) 10^3/uL Eos # (Auto) (0.0-0.7) 10^3/uL Baso # (Auto) (0.0-0.1) 10^3/uL Absolute Nucleated RBC x10^3/uL Nucleated RBC % /100WBC Sodium 138 (135-145) mmol/L Potassium 3.4 L (3.5-5.0) mmol/L Chloride 104 (101-111) mmol/L Carbon Dioxide 23 (21-32) mmol/L Anion Gap 11.0 (6-13) BUN 21 H (6-20) mg/dL Creatinine 0.8 (0.4-1.0) mg/dL Estimated GFR (MDRD) 77 L (>89) Glucose 177 H (70-100) mg/dL Estimat Average Glucose (70-100) mg/dL Hemoglobin A1c % (4.27-6.07) % Calcium 8.2 L (8.5-10.3) mg/dL Iron (28-170) ug/dL TIBC (250-450) ug/dL % Saturation (20-50) % Transferrin (192-382) mg/dL Ferritin (11.0-306.8) ng/mL Total Bilirubin 0.4 (0.2-1.0) mg/dL AST 23 (10-42) IU/L ALT 23 (10-60) IU/L Alkaline Phosphatase 66 (42-121) IU/L Total Protein 6.2 L (6.7-8.2) g/dL Albumin 3.1 L (3.2-5.5) g/dL Globulin 3.1 (2.1-4.2) g/dL Albumin/Globulin Ratio 1.0 (1.0-2.2) Lipase 26 (22-51) U/L TSH (0.34-5.60) uIU/mL Urine Color YELLOW Urine Clarity CLEAR (CLEAR) Urine pH 5.5 (5.0-7.5) PH Ur Specific [place] 1.025 (1.002-1.030) Urine Protein TRACE (NEGATIVE) mg/dL Urine Glucose (UA) 250 H (NEGATIVE) mg/dL Urine Ketones NEGATIVE (NEGATIVE) mg/dL Urine Occult Blood TRACE-INTA (NEGATIVE) Urine Nitrite NEGATIVE (NEGATIVE) Urine Bilirubin NEGATIVE (NEGATIVE) Urine Urobilinogen 0.2 (NORMAL) (NORMAL) E.U./dL Ur Leukocyte Esterase NEGATIVE (NEGATIVE) Ur Microscopic Review NOT INDICATED Urine Culture Comments NOT INDICATED Urine HCG, Qual NEGATIVE SARS-CoV-2 (PCR) 01/24/22 Range/Units 20:12 WBC 6.8 (4.8-10.8) x10^3/uL RBC 3.69 L (4.20-5.40) 10^6/uL Hgb 8.7 L (12.0-16.0) g/dL Hct 29.1 L (37.0-47.0) % MCV 78.9 L (81.0-99.0) fL MCH 23.6 L (27.0-31.0) pg MCHC 29.9 L (32.0-36.0) g/dL RDW 17.3 H (12.0-15.0) % Plt Count 467 H (130-450) 10^3/uL MPV 9.1 (7.9-10.8) fL Neut # (Auto) 5.3 (1.5-6.6) 10^3/uL Lymph # (Auto) 0.7 L (1.5-3.5) 10^3/uL Mccormick # (Auto) 0.6 (0.0-1.0) 10^3/uL Eos # (Auto) 0.1 (0.0-0.7) 10^3/uL Baso # (Auto) 0.1 (0.0-0.1) 10^3/uL Absolute Nucleated RBC 0.00 x10^3/uL Nucleated RBC % 0.0 /100WBC Sodium (135-145) mmol/L Potassium (3.5-5.0) mmol/L Chloride (101-111) mmol/L Carbon Dioxide (21-32) mmol/L Anion Gap (6-13) BUN (6-20) mg/dL Creatinine (0.4-1.0) mg/dL Estimated GFR (MDRD) (>89) Glucose (70-100) mg/dL Estimat Average Glucose (70-100) mg/dL Hemoglobin A1c % (4.27-6.07) % Calcium (8.5-10.3) mg/dL Iron (28-170) ug/dL TIBC (250-450) ug/dL % Saturation (20-50) % Transferrin (192-382) mg/dL Ferritin (11.0-306.8) ng/mL Total Bilirubin (0.2-1.0) mg/dL AST (10-42) IU/L ALT (10-60) IU/L Alkaline Phosphatase (42-121) IU/L Total Protein (6.7-8.2) g/dL Albumin (3.2-5.5) g/dL Globulin (2.1-4.2) g/dL Albumin/Globulin Ratio (1.0-2.2) Lipase (22-51) U/L TSH (0.34-5.60) uIU/mL Urine Color Urine Clarity (CLEAR) Urine pH (5.0-7.5) PH Ur Specific [place] (1.002-1.030) Urine Protein (NEGATIVE) mg/dL Urine Glucose (UA) (NEGATIVE) mg/dL Urine Ketones (NEGATIVE) mg/dL Urine Occult Blood (NEGATIVE) Urine Nitrite (NEGATIVE) Urine Bilirubin (NEGATIVE) Urine Urobilinogen (NORMAL) E.U./dL Ur Leukocyte Esterase (NEGATIVE) Ur Microscopic Review Urine Culture Comments Urine HCG, Qual SARS-CoV-2 (PCR) ABX Reporting Has patient been on IV antibiotics over the past 48 hours?: No Assessment/Plan - Problem List (1) Hypoglycemia associated with diabetes Impression: We did hold all of her insulin yesterday into the night. She required D5. This morning her A1c is 7.6% so she is higher than the last 1 of 6.3%. This morning she was also so high and her glucose that it registered above 600 and we could not measure it anymore. She has been given 20 units of short acting insulin. With that her glucose dropped to 525 and by 1 PM she is 275. She is eating a carb controlled diet. She did not get anything with lunch. I will make sure she gets insulin with dinner. I am hoping that her hypoglycemia is resolved enough that she can go home tomorrow. (2) Iron deficiency anemia Conclusion/Plan: Her hemoglobin is stable at her baseline. She already has a history of iron deficiency anemia on previous lab work. Repeat blood work continues to show iron deficiency anemia today. This is in spite of oral supplementation. Plan: Iron infusion And verify in the outpatient setting if she has had a work- up with upper or lower endoscopy. Qualifiers: (3) Hypothyroidism Conclusion/Plan: We will continue home Synthroid. Her TSH is normal at 4.37. (4) Depression Conclusion/Plan: We will continue her home duloxetine and venlafaxine. (5) Urinary retention She recognizes a lot of the names of the medications on her med list. Pharmacy has not reconciled them yet so I cannot believe that she would be on Garcia and and Detrol and Myrbetriq. I explained to her that these medications can all cause urinary retention. I also explained to her that some of the interactions of these medications can cause arrhythmias such as Reglan and Cymbalta and venlafaxine. For now we will do straight cath, in and out
[2022-01-25] MEDS ORDERED: IRON DEXTRAN 1,500 MG in SODIUM CHLORIDE 0.9% 500 ML IV ONE (16:34)
[2022-01-25] MEDS: METOCLOPRAMIDE 10 MG TABLET PO SCH ×2 (16:54→20:35)
[2022-01-25] MEDS ORDERED: traZODone 50 MG TABLET PO STA (18:20)
[2022-01-26] MEDS: SODIUM CHLORIDE FLUSH 0.9% 10 ML SYRINGE IVP SCH ×3 (00:04→16:16)
[2022-01-26 05:15] LABS: BASOPHILS # (AUTO) 0.1 10^3/uL (0.0-0.1); BASOPHILS % (AUTO) 1.2 %; EOSINOPHILS # (AUTO) 0.3 10^3/uL (0.0-0.7); EOSINOPHILS % (AUTO) 6.7 %; HCT - HEMATOCRIT 28.4 % (37.0-47.0); HGB - HEMOGLOBIN 8.5 g/dL (12.0-16.0); LYMPHOCYTES # (AUTO) 1.7 10^3/uL (1.5-3.5); LYMPHOCYTES % (AUTO) 33.8 %; MEAN CORPUSCULAR HEMOGLOBIN 23.7 pg (27.0-31.0); MEAN CORPUSCULAR HGB CONC 29.9 g/dL (32.0-36.0); MEAN CORPUSCULAR VOLUME 79.3 fL (81.0-99.0); MEAN PLATELET VOLUME 9.6 fL (7.9-10.8); MONOCYTES # (AUTO) 0.5 10^3/uL (0.0-1.0); MONOCYTES % (AUTO) 9.3 %; NEUTROPHILS # (AUTO) 2.4 10^3/uL (1.5-6.6); NEUTROPHILS % (AUTO) 48.6 %; PLT - PLATELET COUNT 484 10^3/uL (130-450); RED BLOOD COUNT 3.58 10^6/uL (4.20-5.40); RED CELL DISTRIBUTION WIDTH 17.7 % (12.0-15.0); WHITE BLOOD COUNT 4.9 x10^3/uL (4.8-10.8)
[2022-01-26 05:26] LABS: CALCIUM 8.1 mg/dL (8.5-10.3); CREATININE 0.9 mg/dL (0.4-1.0); POTASSIUM 4.4 mmol/L (3.5-5.0)
[2022-01-26] MEDS: ACETAMINOPHEN 325 MG TABLET PO PRN ×2 (05:37→20:04)
[2022-01-26] MEDS: METOCLOPRAMIDE 10 MG TABLET PO SCH ×4 (06:03→20:05)
[2022-01-26] MEDS ORDERED: INSULIN REGULAR HUMAN 100 UNIT/1 ML 10 ML MDV SUBQ STA ×2 (07:29→20:50)
[2022-01-26] MEDS ORDERED: INSULIN REGULAR HUMAN 300 UNIT/3 ML VIAL SUBQ STA (07:36)
[2022-01-26] MEDS: DULoxetine 30 MG CAPSULE PO SCH ×2 (08:28→20:04)
[2022-01-26] MEDS: FERROUS SULFATE 325 MG TABLET PO SCH (08:29)
[2022-01-26] MEDS: LEVOTHYROXINE 125 MCG TABLET PO SCH (08:29)
[2022-01-26] MEDS: BUTALB/ACETAM/CAFF 50/325/40MG TABLET PO PRN ×3 (08:29→16:16)
[2022-01-26] MEDS: VENLAFAXINE ER 75 MG CAPSULE PO SCH (08:29)
[2022-01-26 08:37] LABS: BILIRUBIN,URINE NEGATIVE (NEGATIVE); GLUCOSE, URINE (UA) >=1000 mg/dL (NEGATIVE); KETONES,URINE (UA) 40 mg/dL (NEGATIVE); LEUKOCYTE ESTERASE, URINE NEGATIVE (NEGATIVE); NITRITE,URINE NEGATIVE (NEGATIVE); OCCULT BLOOD,URINE NEGATIVE (NEGATIVE); PROTEIN,URINE NEGATIVE (NEGATIVE); UROBILINOGEN,URINE 0.2 (NORMAL) E.U./dL (NORMAL)
[2022-01-26 08:42] LABS: CLARITY,URINE CLEAR (CLEAR)
[2022-01-26] MEDS ORDERED: INSULIN ASPART 300 UNIT/3 ML PEN SUBQ ONE (11:46)
--- NOTE | 2022-01-26 14:31 | PROVIDER PROGRESS NOTE ---
Subjective - Prog Note Date Prog Note Date: 01/26/22 Prog Note Time: 14:29 - Subjective Subjective: When she came into the hospital the evening of the fifth, we held all of her insulin until the morning of the sixth in order to avoid hypoglycemia. We then started feeding her and giving her her insulin, short acting. Unfortunate this patient may have some cognitive deficits from traumatic brain injury and she has been giving conflicting information of what insulin she is taking to the pharmacist. In any case, she is getting short acting insulin from us. Yesterday morning and this morning she is in the 500s. She was given 20 units yesterday, and 25 units today. Yesterday she did well with that and we resumed some of her insulin. Today she has become hypoglycemic with this. She is 110 this afternoon. As such we will transition her from observation to inpatient status since we have not controlled her hypoglycemia safely enough. Her main concern is taking her urinary retention drugs. She wants to take her Myrbetriq. Pharmacy has verified it. Current Medications - Current Medications Current Medications: Active Medications Acetaminophen (Acetaminophen 325 Mg Tablet) 650 mg PO Q4HR PRN PRN Reason: Pain 1 to 4 Last Admin: 01/26/22 05:37 Dose: 650 mg Acetaminophen/Butalbital/Caffeine (Butalb/Acetam/Caff 50/325/40mg Tablet) 1 tab PO Q4HR PRN PRN Reason: HEADACHE Last Admin: 01/26/22 12:39 Dose: 1 tab Duloxetine HCl (Duloxetine 30 Mg Capsule) 60 mg PO BID [facility] Last Admin: 01/26/22 08:28 Dose: 60 mg Ferrous Sulfate (Ferrous Sulfate 325 Mg Tablet) 325 mg PO DAILY [facility] Last Admin: 01/26/22 08:29 Dose: 325 mg Levothyroxine Sodium (Levothyroxine 125 Mcg Tablet) 125 mcg PO DAILY [facility] Last Admin: 01/26/22 08:29 Dose: 125 mcg Metoclopramide HCl (Metoclopramide 10 Mg Tablet) 10 mg PO ACHS [facility] Last Admin: 01/26/22 11:49 Dose: 10 mg Sodium Chloride (Sodium Chloride Flush 0.9% 10 Ml Syringe) 10 ml IVP PRN PRN PRN Reason: NEEDED PER PROVIDER ORDERS Sodium Chloride (Sodium Chloride Flush 0.9% 10 Ml Syringe) 10 ml IVP 0100,0900,1700 [facility] Last Admin: 01/26/22 08:29 Dose: 10 ml Venlafaxine HCl (Venlafaxine Er 75 Mg Capsule) 75 mg PO DAILY [facility] Last Admin: 01/26/22 08:29 Dose: 75 mg Prazosin HCl 5 mg PO QPM 01/23/19 Trazodone HCl 300 mg PO QPM 01/23/19 Duloxetine HCl [Cymbalta] 60 mg PO BID 09/15/19 Butalb/Acetaminophen/Caffeine [Fioricet 50-300-40 mg Capsule] 1 cap PO Q4H PRN 11/06/20 Eszopiclone [Lunesta] 3 mg PO QPM PRN 11/06/20 Glucagon,Human Recombinant [Glucagon Emergency Kit] 1 mg IJ PRN PRN 11/06/20 Mirabegron [Myrbetriq] 50 mg PO QPM 11/06/20 Pantoprazole Sodium [Protonix] 20 mg PO QDAC 11/06/20 Simvastatin [Zocor] 20 mg PO QPM 11/06/20 Spironolactone [Aldactone] 100 mg PO DAILY 11/06/20 methocarbamoL [Robaxin-750] 750 mg PO Q6H PRN 11/06/20 Levothyroxine [Synthroid] 125 mcg PO DAILY 02/21/21 Venlafaxine ER [Effexor ER] 75 mg PO DAILY 09/19/21 Insulin Regular, Human [Novolin R Flexpen] 0 - 15 unit SQ TIDWM 01/25/22 Metoclopramide [Reglan] 10 mg PO ACHS 01/25/22 Tolterodine Tartrate [Detrol LA] 2 mg PO DAILY 01/25/22 Objective - Vital Signs/Intake & Output Reviewed Vital Signs: Yes Vital Signs: Vital Signs x48h Temp Pulse Resp BP Pulse Ox 01/26/22 07:20 37.0 C 103 H 17 125/68 93 Intake & Output: Intake & Output 01/23/22 01/24/22 01/25/22 01/26/22 23:59 23:59 23:59 23:59 Intake Total 93.333 3514 1330 Output Total 2700 1600 Balance 93.333 814 -270 - Objective General Appearance: positive: Alert, Other (short, obese white female looks older than stated age) Eyes Bilateral: positive: PERRL ENT: positive: Pharynx nml Neck: positive: No JVD Respiratory: positive: No respiratory distress. negative: Wheezes, Rales, Rhonchi Cardiovascular: positive: Regular rate & rhythm. negative: Gallop/S4, Friction rub Abdomen: positive: Non-tender, No organomegaly, Nml bowel sounds, No distention Skin: positive: Warm, Dry Extremities: positive: Full ROM, No pedal edema Neurologic/Psychiatric: positive: Oriented x3, CN's nml (2-12), Disoriented to place (at times), Other (cognitive deficits). negative: Motor nml (weak legs but able to sit up and stand.) - Lab Results Fish Bones: 01/26/22 05:03 01/26/22 05:03 Other Labs: Lab Results x24hrs 01/26/22 01/26/22 01/26/22 Range/Units 08:20 05:03 05:03 WBC 4.9 (4.8-10.8) x10^3/uL RBC 3.58 L (4.20-5.40) 10^6/uL Hgb 8.5 L (12.0-16.0) g/dL Hct 28.4 L (37.0-47.0) % MCV 79.3 L (81.0-99.0) fL MCH 23.7 L (27.0-31.0) pg MCHC 29.9 L (32.0-36.0) g/dL RDW 17.7 H (12.0-15.0) % Plt Count 484 H (130-450) 10^3/uL MPV 9.6 (7.9-10.8) fL Neut # (Auto) 2.4 (1.5-6.6) 10^3/uL Lymph # (Auto) 1.7 (1.5-3.5) 10^3/uL [place] # (Auto) 0.5 (0.0-1.0) 10^3/uL Eos # (Auto) 0.3 (0.0-0.7) 10^3/uL Baso # (Auto) 0.1 (0.0-0.1) 10^3/uL Absolute Nucleated RBC 0.00 x10^3/uL Nucleated RBC % 0.0 /100WBC Sodium 132 L (135-145) mmol/L Potassium 4.4 (3.5-5.0) mmol/L Chloride 99 L (101-111) mmol/L Carbon Dioxide 23 (21-32) mmol/L Anion Gap 10.0 (6-13) BUN 19 (6-20) mg/dL Creatinine 0.9 (0.4-1.0) mg/dL Estimated GFR (MDRD) 67 L (>89) Glucose 479 H (70-100) mg/dL Calcium 8.1 L (8.5-10.3) mg/dL Urine Color YELLOW Urine Clarity CLEAR (CLEAR) Urine pH 6.0 (5.0-7.5) PH Ur Specific [place] <=1.005 (1.002-1.030) Urine Protein NEGATIVE (NEGATIVE) mg/dL Urine Glucose (UA) >=1000 H (NEGATIVE) mg/dL Urine Ketones 40 H (NEGATIVE) mg/dL Urine Occult Blood NEGATIVE (NEGATIVE) Urine Nitrite NEGATIVE (NEGATIVE) Urine Bilirubin NEGATIVE (NEGATIVE) Urine Urobilinogen 0.2 (NORMAL) (NORMAL) E.U./dL Ur Leukocyte Esterase NEGATIVE (NEGATIVE) Ur Microscopic Review NOT INDICATED Urine Culture Comments NOT INDICATED Assessment/Plan - Problem List (1) Hypoglycemia associated with diabetes Impression: on a carb controlled diet. Glucose is 118 right now. Apple sauce and juice given for ss of sweats and nausea. Will change to inpatitnet since glucose sstill not controlled and having low glucose response. (2) Iron deficiency anemia Conclusion/Plan: Her hemoglobin is stable at her baseline. She already has a history of iron deficiency anemia on previous lab work. Repeat blood work continues to show iron deficiency anemia today. This is in spite of oral supplementation. Iron infusion done. We need to verify in the outpatient setting if she has had a work-up with upper or lower endoscopy. Qualifiers: (3) Hypothyroidism Conclusion/Plan: We will continue home Synthroid. Her TSH is normal at 4.37. (4) Depression Conclusion/Plan: We will continue her home duloxetine and venlafaxine. (5) Urinary retention had 2 straight cath in and out yesterday. resume her meds from home now that verified.
[2022-01-26] MEDS ORDERED: METOCLOPRAMIDE 10 MG TABLET PO SCH (16:00)
[2022-01-26] MEDS: PANTOPRAZOLE 40 MG TABLET PO SCH (16:16)
[2022-01-26] MEDS: methocarbamoL 500 MG TABLET PO PRN (20:04)
[2022-01-26] MEDS: ATORVASTATIN 10 MG TABLET PO SCH (20:04)
[2022-01-26] MEDS: Mirabegron [Myrbetriq] 50 MG Tab.Er.24h PO SCH (20:05)
[2022-01-26] MEDS: PRAZOSIN 1 MG CAPSULE PO SCH (20:05)
[2022-01-26] MEDS: traZODone 50 MG TABLET PO SCH (22:18)
[2022-01-27] MEDS: METOCLOPRAMIDE 10 MG TABLET PO SCH ×4 (06:15→20:28)
[2022-01-27] MEDS: PANTOPRAZOLE 40 MG TABLET PO SCH (06:15)
[2022-01-27] MEDS ORDERED: INSULIN GLARGINE 300 UNIT/3 ML PEN SUBQ SCH ×2 (08:00→09:00)
[2022-01-27] MEDS: DULoxetine 30 MG CAPSULE PO SCH ×2 (08:54→20:28)
[2022-01-27] MEDS: TOLTERODINE LA 2 MG CAPSULE PO SCH (08:54)
[2022-01-27] MEDS: LEVOTHYROXINE 125 MCG TABLET PO SCH (08:54)
[2022-01-27] MEDS: FERROUS SULFATE 325 MG TABLET PO SCH (08:54)
[2022-01-27] MEDS: INSULIN ASPART 300 UNIT/3 ML PEN SUBQ SCH ×4 (08:54→21:55)
[2022-01-27] MEDS: VENLAFAXINE ER 75 MG CAPSULE PO SCH (08:54)
[2022-01-27] MEDS: BUTALB/ACETAM/CAFF 50/325/40MG TABLET PO PRN ×3 (08:55→17:59)
[2022-01-27] MEDS: SODIUM CHLORIDE FLUSH 0.9% 10 ML SYRINGE IVP SCH ×4 (08:55→23:23)
[2022-01-27] MEDS: SPIRONOLACTONE 25 MG TABLET PO SCH (08:56)
[2022-01-27] MEDS: IBUPROFEN 400 MG TABLET PO PRN ×3 (10:47→21:56)
[2022-01-27] MEDS: methocarbamoL 500 MG TABLET PO PRN ×2 (10:47→16:55)
--- NOTE | 2022-01-27 11:21 | PROVIDER PROGRESS NOTE ---
Assessment/Plan - Problem List (1) Uncontrolled type 1 diabetes mellitus with hyperglycemia Assessment/Plan: 01/27 pt has Glucose over 400 on today morning. Yesterday patient had hypoglycemia again after she was given insulin in the hospital. Patient reported she had insulin pump before but insulin pump was believed malfunction, then her driver merchandiser took her insulin pump away. Patient declined to have 3 units of Lantus, she report because Lantus insulin caused her hypoglycemia in the past. She reported she take regular insulin as needed and usually she took 3 times per day. Because of her nervous and anxiety, she reported she frequently check her glucose level every 2-3 hours. plan: we will have novolog for her Hyperglycemia now with slide scale. Advised patient Follow-up with her driver merchandiser, may reconsider to have Insulin pump, start to check her glucose level as the schedule 4 times per day except she is Symptomatic hypoglycemia. she Report she had glucagon at home for her hypoglyc emia. (1) Hypoglycemia associated with diabetes Impression: pt had Symptomatic hypoglycemia even glucose level at 118 on yesterday. as discussed with pt above, we will setup pt's baseline glucose at 200, if above, we will start with pt's home regular, then Follow-up with her PCP and driver merchandiser. (2) Iron deficiency anemia Conclusion/Plan: Patient history of chronic anemia, iron deficiency. Her hemoglobin is stable at her baseline now. Repeat blood work continues to show iron deficiency anemia today. 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 Her TSH is normal at 4.37. (4) Depression Conclusion/Plan: We will continue her home duloxetine and venlafaxine. (5) Urinary retention stable. Patient reported she urinated by herself now. continue home prozosin - Current Meds Current Meds: Current Medications Generic Name Dose Route Start Last Admin Trade Name Freq PRN Reason Stop Dose Admin Acetaminophen 650 mg 01/24/22 22:01 01/26/22 20:04 Acetaminophen 325 Mg Tablet PO 650 mg Q4HR PRN Administration Pain 1 to 4 Acetaminophen/Butalbital/Caffeine 1 tab 01/25/22 08:36 01/27/22 08:55 Butalb/Acetam/Caff 50/325/40mg Tablet PO 1 tab Q4HR PRN Administration HEADACHE Atorvastatin Calcium 10 mg 01/26/22 21:00 01/26/22 20:04 Atorvastatin 10 Mg Tablet PO 10 mg QPM SHE[facility] Administration Duloxetine HCl 60 mg 01/25/22 09:00 01/27/22 08:54 Duloxetine 30 Mg Capsule PO 60 mg BID SHELL Administration Ferrous Sulfate 325 mg 01/25/22 09:00 01/27/22 08:54 Ferrous Sulfate 325 Mg Tablet PO 325 mg DAILY [facility] Administration Ibuprofen 400 mg 01/27/22 10:21 01/27/22 10:47 Ibuprofen 400 Mg Tablet PO 400 mg Q6HR PRN Administration PAIN Insulin Aspart 2 - 10 unit 01/27/22 08:00 01/27/22 08:54 Insulin Aspart 300 Unit/3 Ml Pen SUBQ 10 unit 0800,1200,1700,2100 SHELL Administration Protocol Insulin Glargine 3 unit 01/27/22 09:00 01/27/22 10:46 Insulin Glargine 300 Unit/3 Ml Pen SUBQ Not Given QDBREAKFAST [facility] Levothyroxine Sodium 125 mcg 01/25/22 09:00 01/27/22 08:54 Levothyroxine 125 Mcg Tablet PO 125 mcg DAILY [facility] Administration Methocarbamol 750 mg 01/26/22 14:55 01/27/22 10:47 Methocarbamol 500 Mg Tablet PO 750 mg Q6H PRN Administration Muscle Spasms Metoclopramide HCl 10 mg 01/25/22 17:00 01/27/22 10:47 Metoclopramide 10 Mg Tablet PO 10 mg ACHS [facility] Administration Pantoprazole Sodium 40 mg 01/26/22 15:00 01/27/22 06:15 Pantoprazole 40 Mg Tablet PO 40 mg QDAC [facility] Administration Mirabegron [ 1 each 01/26/22 21:00 01/26/22 20:05 Myrbetriq] 50 Mg Tab PO 1 each .Er.24h QPM [facility] Administration Prazosin HCl 5 mg 01/26/22 21:00 01/26/22 20:05 Prazosin 1 Mg Capsule PO 5 mg QPM [facility] Administration Sodium Chloride 10 ml 01/25/22 01:00 01/27/22 08:55 Sodium Chloride Flush 0.9% 10 Ml Syringe IVP 10 ml 0100,0900,1700 [facility] Administration Spironolactone 100 mg 01/27/22 09:00 01/27/22 08:56 Spironolactone 25 Mg Tablet PO 100 mg DAILY [facility] Administration Tolterodine Tartrate 2 mg 01/27/22 09:00 01/27/22 08:54 Tolterodine La 2 Mg Capsule PO 2 mg DAILY [facility] Administration Trazodone HCl 300 mg 01/26/22 21:00 01/26/22 22:18 Trazodone 50 Mg Tablet PO 300 mg QPM [facility] Administration Venlafaxine HCl 75 mg 01/25/22 09:00 01/27/22 08:54 Venlafaxine Er 75 Mg Capsule PO 75 mg DAILY [facility] Administration - Lab Result Fish Bone Diagrams: 01/26/22 05:03 01/26/22 05:03 - Additional Planning My Orders: My Active Orders 01/27/22 Home Health Referral [CONS] Routine 01/27/22 07:58 Initiate Hypoglycemia Protocol [RC] .protocol 01/27/22 08:00 Insulin Aspart [NovoLOG] 2 - 10 unit SUBQ 0800,1200,1700,2100 01/27/22 09:00 Insulin Glargine [Lantus Solostar] 3 unit SUBQ QDBREAKFAST 01/27/22 10:21 Ibuprofen [Motrin] 400 mg PO Q6HR PRN 01/27/22 23:30 GLUCOSE [CHEM] Timed 01/28/22 02:00 GLUCOSE [CHEM] Timed 01/28/22 05:00 BMP - BASIC METABOLIC PANEL [CHEM] DAILYLAB CBC - COMP BLD CT W/AUTO DIFF [HEME] DAILYLAB 01/29/22 05:00 BMP - BASIC METABOLIC PANEL [CHEM] DAILYLAB CBC - COMP BLD CT W/AUTO DIFF [HEME] DAILYLAB 01/30/22 05:00 BMP - BASIC METABOLIC PANEL [CHEM] DAILYLAB CBC - COMP BLD CT W/AUTO DIFF [HEME] DAILYLAB 01/31/22 05:00 BMP - BASIC METABOLIC PANEL [CHEM] DAILYLAB CBC - COMP BLD CT W/AUTO DIFF [HEME] DAILYLAB 02/01/22 05:00 BMP - BASIC METABOLIC PANEL [CHEM] DAILYLAB CBC - COMP BLD CT W/AUTO DIFF [HEME] DAILYLAB Subjective - Subjective Patient Reports: Resting Comfortably Objective Vital Signs: Vital Signs - 24 hr 01/26/22 01/27/22 01/27/22 15:45 00:00 07:22 Temperature 36.6 C 36.6 C 36.8 C Heart Rate [ 82 106 H 93 Brachial] Respiratory 20 16 16 Rate Blood Pressure 144/81 H 119/62 118/65 [Right Brachial artery] O2 Saturation 96 94 94 Oxygen O2 Source Room air I&O (Last 24 Hrs): Intake and Output Totals x24h 01/25/22 01/26/22 01/27/22 23:59 23:59 23:59 Intake Total 3514 2552 240 Output Total 2700 2750 Balance 814 -198 240 General: Alert, Oriented x3, No acute distress HEENT: Atraumatic Neck: Supple Lymphatic: no adenopathy Neuro: Alert, Non Focal, Oriented Times 3 Cardiovascular: Regular rate, Normal S1, Normal S2 Respiratory: Chest non-tender, No respiratory distress Abdomen: Normal bowel sounds, Soft Extremities: Normal pulses - Results Results: Laboratory Results WBC 4.9 x10^3/uL (4.8-10.8) 01/26/22 05:03 RBC 3.58 10^6/uL (4.20-5.40) L 01/26/22 05:03 Hgb 8.5 g/dL (12.0-16.0) L 01/26/22 05:03 Hct 28.4 % (37.0-47.0) L 01/26/22 05:03 MCV 79.3 fL (81.0-99.0) L 01/26/22 05:03 MCH 23.7 pg (27.0-31.0) L 01/26/22 05:03 MCHC 29.9 g/dL (32.0-36.0) L 01/26/22 05:03 RDW 17.7 % (12.0-15.0) H 01/26/22 05:03 Plt Count 484 10^3/uL (130-450) H 01/26/22 05:03 MPV 9.6 fL (7.9-10.8) 01/26/22 05:03 Neut # (Auto) 2.4 10^3/uL (1.5-6.6) 01/26/22 05:03 Lymph # (Auto) 1.7 10^3/uL (1.5-3.5) 01/26/22 05:03 [place] # (Auto) 0.5 10^3/uL (0.0-1.0) 01/26/22 05:03 Eos # (Auto) 0.3 10^3/uL (0.0-0.7) 01/26/22 05:03 Baso # (Auto) 0.1 10^3/uL (0.0-0.1) 01/26/22 05:03 Absolute Nucleated RBC 0.00 x10^3/uL 01/26/22 05:03 Nucleated RBC % 0.0 /100WBC 01/26/22 05:03 Sodium 132 mmol/L (135-145) L 01/26/22 05:03 Potassium 4.4 mmol/L (3.5-5.0) 01/26/22 05:03 Chloride 99 mmol/L (101-111) L 01/26/22 05:03 Carbon Dioxide 23 mmol/L (21-32) 01/26/22 05:03 Anion Gap 10.0 (6-13) 01/26/22 05:03 BUN 19 mg/dL (6-20) 01/26/22 05:03 Creatinine 0.9 mg/dL (0.4-1.0) 01/26/22 05:03 Estimated GFR (MDRD) 67 (>89) L 01/26/22 05:03 Glucose 479 mg/dL (70-100) H 01/26/22 05:03 Estimat Average Glucose 171 mg/dL (70-100) H 01/24/22 22:17 Hemoglobin A1c % 7.6 % (4.27-6.07) H 01/24/22 22:17 Calcium 8.1 mg/dL (8.5-10.3) L 01/26/22 05:03 Iron 9 ug/dL (28-170) L 01/24/22 22:17 TIBC 367 ug/dL (250-450) 01/24/22 22:17 % Saturation 2 % (20-50) L 01/24/22 22:17 Transferrin 262 mg/dL (192-382) 01/24/22 22:17 Ferritin 6.0 ng/mL (11.0-306.8) L 01/24/22 22:17 Total Bilirubin 0.4 mg/dL (0.2-1.0) 01/24/22 20:12 AST 23 IU/L (10-42) 01/24/22 20:12 ALT 23 IU/L (10-60) 01/24/22 20:12 Alkaline Phosphatase 66 IU/L (42-121) 01/24/22 20:12 Total Protein 6.2 g/dL (6.7-8.2) L 01/24/22 20:12 Albumin 3.1 g/dL (3.2-5.5) L 01/24/22 20:12 Globulin 3.1 g/dL (2.1-4.2) 01/24/22 20:12 Albumin/Globulin Ratio 1.0 (1.0-2.2) 01/24/22 20:12 Lipase 26 U/L (22-51) 01/24/22 20:12 TSH 4.37 uIU/mL (0.34-5.60) 01/24/22 22:17 Urine Color YELLOW 01/26/22 08:20 Urine Clarity CLEAR (CLEAR) 01/26/22 08:20 Urine pH 6.0 PH (5.0-7.5) 01/26/22 08:20 Ur Specific [place] <=1.005 (1.002-1.030) 01/26/22 08:20 Urine Protein NEGATIVE mg/dL (NEGATIVE) 01/26/22 08:20 Urine Glucose (UA) >=1000 mg/dL (NEGATIVE) H 01/26/22 08:20 Urine Ketones 40 mg/dL (NEGATIVE) H 01/26/22 08:20 Urine Occult Blood NEGATIVE (NEGATIVE) 01/26/22 08:20 Urine Nitrite NEGATIVE (NEGATIVE) 01/26/22 08:20 Urine Bilirubin NEGATIVE (NEGATIVE) 01/26/22 08:20 Urine Urobilinogen 0.2 (NORMAL) E.U./dL (NORMAL) 01/26/22 08:20 Ur Leukocyte Esterase NEGATIVE (NEGATIVE) 01/26/22 08:20 Ur Microscopic Review NOT INDICATED 01/26/22 08:20 Urine Culture Comments NOT INDICATED 01/26/22 08:20 Urine HCG, Qual NEGATIVE 01/24/22 20:35 SARS-CoV-2 (PCR) NOT DETECTED 01/24/22 22:21 - Procedures Procedures: Procedures EXCISION OF STOMACH, ENDO, DIAGN (05/24/18) INSPECTION OF LOWER INTESTINAL TRACT, ENDO (05/24/18) REPOSITION RIGHT FIBULA WITH INT FIX, OPEN APPROACH (09/15/19) REPOSITION RIGHT TIBIA WITH INT FIX, OPEN APPROACH (09/15/19) TRANSFUSE NONAUT RED BLOOD CELLS IN PERIPH VEIN, PERC (09/15/19) ABX Reporting Has patient been on IV antibiotics over the past 48 hours?: No Current Medications - Current Medications Current Medications: Active Medications Acetaminophen (Acetaminophen 325 Mg Tablet) 650 mg PO Q4HR PRN PRN Reason: Pain 1 to 4 Last Admin: 01/26/22 20:04 Dose: 650 mg Acetaminophen/Butalbital/Caffeine (Butalb/Acetam/Caff 50/325/40mg Tablet) 1 tab PO Q4HR PRN PRN Reason: HEADACHE Last Admin: 01/27/22 08:55 Dose: 1 tab Atorvastatin Calcium (Atorvastatin 10 Mg Tablet) 10 mg PO QPM [facility] Last Admin: 01/26/22 20:04 Dose: 10 mg Duloxetine HCl (Duloxetine 30 Mg Capsule) 60 mg PO BID [facility] Last Admin: 01/27/22 08:54 Dose: 60 mg Ferrous Sulfate (Ferrous Sulfate 325 Mg Tablet) 325 mg PO DAILY [facility] Last Admin: 01/27/22 08:54 Dose: 325 mg Ibuprofen (Ibuprofen 400 Mg Tablet) 400 mg PO Q6HR PRN PRN Reason: PAIN Last Admin: 01/27/22 10:47 Dose: 400 mg Insulin Aspart (Insulin Aspart 300 Unit/3 Ml Pen) 2 - 10 unit SUBQ 0800,1200,1700,2100 [facility]; Protocol Last Admin: 01/27/22 11:31 Dose: 8 unit Insulin Glargine (Insulin Glargine 300 Unit/3 Ml Pen) 3 unit SUBQ QDBREAKFAST [facility] Last Admin: 01/27/22 10:46 Dose: Not Given Levothyroxine Sodium (Levothyroxine 125 Mcg Tablet) 125 mcg PO DAILY [facility] Last Admin: 01/27/22 08:54 Dose: 125 mcg Methocarbamol (Methocarbamol 500 Mg Tablet) 750 mg PO Q6H PRN PRN Reason: Muscle Spasms Last Admin: 01/27/22 10:47 Dose: 750 mg Metoclopramide HCl (Metoclopramide 10 Mg Tablet) 10 mg PO ACHS [facility] Last Admin: 01/27/22 10:47 Dose: 10 mg Pantoprazole Sodium (Pantoprazole 40 Mg Tablet) 40 mg PO QDAC [facility] Last Admin: 01/27/22 06:15 Dose: 40 mg Mirabegron [ Myrbetriq] 50 Mg Tab .Er.24h 1 each PO QPM [facility] Last Admin: 01/26/22 20:05 Dose: 1 each Prazosin HCl (Prazosin 1 Mg Capsule) 5 mg PO QPM [facility] Last Admin: 01/26/22 20:05 Dose: 5 mg Sodium Chloride (Sodium Chloride Flush 0.9% 10 Ml Syringe) 10 ml IVP PRN PRN PRN Reason: NEEDED PER PROVIDER ORDERS Sodium Chloride (Sodium Chloride Flush 0.9% 10 Ml Syringe) 10 ml IVP 0100,0900,1700 [facility] Last Admin: 01/27/22 08:55 Dose: 10 ml Spironolactone (Spironolactone 25 Mg Tablet) 100 mg PO DAILY [facility] Last Admin: 01/27/22 08:56 Dose: 100 mg Tolterodine Tartrate (Tolterodine La 2 Mg Capsule) 2 mg PO DAILY [facility] Last Admin: 01/27/22 08:54 Dose: 2 mg Trazodone HCl (Trazodone 50 Mg Tablet) 300 mg PO QPM [facility] Last Admin: 01/26/22 22:18 Dose: 300 mg Venlafaxine HCl (Venlafaxine Er 75 Mg Capsule) 75 mg PO DAILY [facility] Last Admin: 01/27/22 08:54 Dose: 75 mg Prazosin HCl 5 mg PO QPM 01/23/19 Trazodone HCl 300 mg PO QPM 01/23/19 Duloxetine HCl [Cymbalta] 60 mg PO BID 09/15/19 Butalb/Acetaminophen/Caffeine [Fioricet 50-300-40 mg Capsule] 1 cap PO Q4H PRN 11/06/20 Eszopiclone [Lunesta] 3 mg PO QPM PRN 11/06/20 Glucagon,Human Recombinant [Glucagon Emergency Kit] 1 mg IJ PRN PRN 11/06/20 Mirabegron [Myrbetriq] 50 mg PO QPM 11/06/20 Pantoprazole Sodium [Protonix] 20 mg PO QDAC 11/06/20 Simvastatin [Zocor] 20 mg PO QPM 11/06/20 Spironolactone [Aldactone] 100 mg PO DAILY 11/06/20 methocarbamoL [Robaxin-750] 750 mg PO Q6H PRN 11/06/20 Levothyroxine [Synthroid] 125 mcg PO DAILY 02/21/21 Venlafaxine ER [Effexor ER] 75 mg PO DAILY 09/19/21 Insulin Regular, Human [Novolin R Flexpen] 0 - 15 unit SQ TIDWM 01/25/22 Metoclopramide [Reglan] 10 mg PO ACHS 01/25/22 Tolterodine Tartrate [Detrol LA] 2 mg PO DAILY 01/25/22
[2022-01-27] MEDS: PRAZOSIN 1 MG CAPSULE PO SCH (20:27)
[2022-01-27] MEDS: Mirabegron [Myrbetriq] 50 MG Tab.Er.24h PO SCH (20:28)
[2022-01-27] MEDS: ATORVASTATIN 10 MG TABLET PO SCH (20:28)
[2022-01-27] MEDS: traZODone 50 MG TABLET PO SCH (21:57)
[2022-01-28 05:29] LABS: BASOPHILS # (AUTO) 0.1 10^3/uL (0.0-0.1); BASOPHILS % (AUTO) 1.1 %; EOSINOPHILS # (AUTO) 0.5 10^3/uL (0.0-0.7); EOSINOPHILS % (AUTO) 8.8 %; HGB - HEMOGLOBIN 8.6 g/dL (12.0-16.0); LYMPHOCYTES # (AUTO) 1.6 10^3/uL (1.5-3.5); LYMPHOCYTES % (AUTO) 27.8 %; MEAN CORPUSCULAR HEMOGLOBIN 23.5 pg (27.0-31.0); MEAN CORPUSCULAR HGB CONC 29.7 g/dL (32.0-36.0); MEAN CORPUSCULAR VOLUME 79.2 fL (81.0-99.0); MEAN PLATELET VOLUME 9.7 fL (7.9-10.8); MONOCYTES # (AUTO) 0.5 10^3/uL (0.0-1.0); NEUTROPHILS % (AUTO) 52.1 %; NRBC ABSOLUTE COUNT (AUTO) 0.04 x10^3/uL; NUCLEATED RED BLOOD CELLS AUTO 0.7 /100WBC; PLT - PLATELET COUNT 486 10^3/uL (130-450); RED BLOOD COUNT 3.66 10^6/uL (4.20-5.40); RED CELL DISTRIBUTION WIDTH 17.5 % (12.0-15.0); WHITE BLOOD COUNT 5.7 x10^3/uL (4.8-10.8)
[2022-01-28 05:48] LABS: CALCIUM 8.6 mg/dL (8.5-10.3); CREATININE 0.8 mg/dL (0.4-1.0); POTASSIUM 4.5 mmol/L (3.5-5.0)
[2022-01-28] MEDS: INSULIN ASPART 300 UNIT/3 ML PEN SUBQ SCH ×5 (06:14→21:30)
[2022-01-28] MEDS: PANTOPRAZOLE 40 MG TABLET PO SCH (06:15)
[2022-01-28] MEDS: METOCLOPRAMIDE 10 MG TABLET PO SCH ×4 (06:15→20:17)
[2022-01-28] MEDS ORDERED: INSULIN ASPART 300 UNIT/3 ML PEN SUBQ ONE ×2 (06:15→19:04)
--- NOTE | 2022-01-28 07:33 | PROVIDER PROGRESS NOTE ---
Assessment/Plan - Problem List (1) Uncontrolled type 1 diabetes mellitus with hyperglycemia Assessment/Plan: 01/28 pt had glucose over 500 on last night. now she agree to have Lantus, increase pt's slide scan to high level, ACHS glucose check, continue hypoglycemia protocol. 01/27 pt has Glucose over 400 on today morning. Yesterday patient had hypoglycemia again after she was given insulin in the hospital. Patient reported she had insulin pump before but insulin pump was believed malfunction, then her e ndocrinologist took her insulin pump away. Patient declined to have 3 units of Lantus, she report because Lantus insulin caused her hypoglycemia in the past. She reported she take regular insulin as needed and usually she took 3 times per day. Because of her nervous and anxiety, she reported she frequently check her glucose level every 2-3 hours. plan: we will have novolog for her Hyperglycemia now with slide scale. Advised patient Follow-up with her technology development intern, may reconsider to have Insulin pump, start to check her glucose level as the schedule 4 times per day except she is Symptomatic hypoglycemia. she Report she had glucagon at home for her hypoglycemia. (2) Hypoglycemia associated with diabetes Impression: 01/28 pt has significant hyperglycemia on last night. continue, lantus, slide scan to high level, ACHS glucose check, continue hypoglycemia protocol. pt had Symptomatic hypoglycemia even glucose level at 118 on yesterday. as discussed with pt above, we will setup pt's baseline glucose at 200, if above, we will start with pt's home regular, then Follow-up with her PCP and technology development intern. (3) Iron deficiency anemia Conclusion/Plan: Patient history of chronic anemia, iron deficiency. Her hemoglobin is stable at her baseline now. Repeat blood work continues to show iron deficiency anemia today. continue Iron supplement. And laboratory chief (4) Hypothyroidism Conclusion/Plan: We will continue home Synthroid. Her TSH is normal at 4.37. (5) Depression and anxiety Conclusion/Plan: We will continue her home duloxetine and venlafaxine. (6) Urinary retention stable. Patient reported she urinated by herself now. continue home prozosin (7)medical noncompliant pt has hx medical noncompliant. discussed with pt, hope pt can followup with medical schedule to control her difficult control of DM1. - Current Meds Current Meds: Current Medications Generic Name Dose Route Start Last Admin Trade Name Freq PRN Reason Stop Dose Admin Acetaminophen 650 mg 01/24/22 22:01 01/26/22 20:04 Acetaminophen 325 Mg Tablet PO 650 mg Q4HR PRN Administration Pain 1 to 4 Acetaminophen/Butalbital/Caffeine 1 tab 01/25/22 08:36 01/27/22 17:59 Butalb/Acetam/Caff 50/325/40mg Tablet PO 1 tab Q4HR PRN Administration HEADACHE Atorvastatin Calcium 10 mg 01/26/22 21:00 01/27/22 20:28 Atorvastatin 10 Mg Tablet PO 10 mg QPM SHELL Administration Duloxetine HCl 60 mg 01/25/22 09:00 01/27/22 20:28 Duloxetine 30 Mg Capsule PO 60 mg BID SHELL Administration Ferrous Sulfate 325 mg 01/25/22 09:00 01/27/22 08:54 Ferrous Sulfate 325 Mg Tablet PO 325 mg DAILY SHELL Administration Ibuprofen 400 mg 01/27/22 10:21 01/27/22 21:56 Ibuprofen 400 Mg Tablet PO 400 mg Q6HR PRN Administration PAIN Levothyroxine Sodium 125 mcg 01/25/22 09:00 01/27/22 08:54 Levothyroxine 125 Mcg Tablet PO 125 mcg DAILY SHELL Administration Methocarbamol 750 mg 01/26/22 14:55 01/27/22 16:55 Methocarbamol 500 Mg Tablet PO 750 mg Q6H PRN Administration Muscle Spasms Metoclopramide HCl 10 mg 01/25/22 17:00 01/28/22 06:15 Metoclopramide 10 Mg Tablet PO 10 mg ACHS SHELL Administration Pantoprazole Sodium 40 mg 01/26/22 15:00 01/28/22 06:15 Pantoprazole 40 Mg Tablet PO 40 mg QDAC SHELL Administration Mirabegron [ 1 each 01/26/22 21:00 01/27/22 20:28 Myrbetriq] 50 Mg Tab PO 1 each .Er.24h QPM SHELL Administration Prazosin HCl 5 mg 01/26/22 21:00 01/27/22 20:27 Prazosin 1 Mg Capsule PO 5 mg QPM SHELL Administration Sodium Chloride 10 ml 01/25/22 01:00 01/27/22 23:23 Sodium Chloride Flush 0.9% 10 Ml Syringe IVP 10 ml 0100,0900,1700 SHELL Administration Spironolactone 100 mg 01/27/22 09:00 01/27/22 08:56 Spironolactone 25 Mg Tablet PO 100 mg DAILY SHELL Administration Tolterodine Tartrate 2 mg 01/27/22 09:00 01/27/22 08:54 Tolterodine La 2 Mg Capsule PO 2 mg DAILY SHELL Administration Trazodone HCl 300 mg 01/26/22 21:00 01/27/22 21:57 Trazodone 50 Mg Tablet PO 300 mg QPM SHELL Administration Venlafaxine HCl 75 mg 01/25/22 09:00 01/27/22 08:54 Venlafaxine Er 75 Mg Capsule PO 75 mg DAILY SHELL Administration - Lab Result Fish Bone Diagrams: 01/28/22 04:52 01/28/22 04:52 - Additional Planning My Orders: My Active Orders 01/27/22 07:58 Initiate Hypoglycemia Protocol [RC] .protocol 01/27/22 10:21 Ibuprofen [Motrin] 400 mg PO Q6HR PRN 01/28/22 08:00 Insulin Glargine [Lantus Solostar] 5 unit SUBQ QDBREAKFAST 01/29/22 05:00 BMP - BASIC METABOLIC PANEL [CHEM] DAILYLAB CBC - COMP BLD CT W/AUTO DIFF [HEME] DAILYLAB 01/30/22 05:00 BMP - BASIC METABOLIC PANEL [CHEM] DAILYLAB CBC - COMP BLD CT W/AUTO DIFF [HEME] DAILYLAB 01/31/22 05:00 BMP - BASIC METABOLIC PANEL [CHEM] DAILYLAB CBC - COMP BLD CT W/AUTO DIFF [HEME] DAILYLAB 02/01/22 05:00 BMP - BASIC METABOLIC PANEL [CHEM] DAILYLAB CBC - COMP BLD CT W/AUTO DIFF [HEME] DAILYLAB Subjective - Subjective Patient Reports: Resting Comfortably Objective Vital Signs: Vital Signs - 24 hr 01/27/22 01/27/22 15:38 23:24 Temperature 37.0 C 36.8 C Heart Rate [ 85 105 H Brachial] Respiratory 16 16 Rate Blood Pressure 132/78 H 108/65 [Right Brachial artery] O2 Saturation 95 95 Oxygen O2 Source Room air I&O (Last 24 Hrs): Intake and Output Totals x24h 01/26/22 01/27/22 01/28/22 23:59 23:59 23:59 Intake Total 2552 1180 Output Total 2750 600 Balance -198 580 General: Alert, Oriented x3, Cooperative, No acute distress HEENT: Atraumatic Neck: Supple Lymphatic: no adenopathy Neuro: Alert, Non Focal, Oriented Times 3 Cardiovascular: Regular rate, Normal S1, Normal S2 Respiratory: Chest non-tender, No respiratory distress Abdomen: Normal bowel sounds, Soft Extremities: Normal pulses - Results Results: Laboratory Results WBC 5.7 x10^3/uL (4.8-10.8) 01/28/22 04:52 RBC 3.66 10^6/uL (4.20-5.40) L 01/28/22 04:52 Hgb 8.6 g/dL (12.0-16.0) L 01/28/22 04:52 Hct 29.0 % (37.0-47.0) L 01/28/22 04:52 MCV 79.2 fL (81.0-99.0) L 01/28/22 04:52 MCH 23.5 pg (27.0-31.0) L 01/28/22 04:52 MCHC 29.7 g/dL (32.0-36.0) L 01/28/22 04:52 RDW 17.5 % (12.0-15.0) H 01/28/22 04:52 Plt Count 486 10^3/uL (130-450) H 01/28/22 04:52 MPV 9.7 fL (7.9-10.8) 01/28/22 04:52 Neut # (Auto) 3.0 10^3/uL (1.5-6.6) 01/28/22 04:52 Lymph # (Auto) 1.6 10^3/uL (1.5-3.5) 01/28/22 04:52 [place] # (Auto) 0.5 10^3/uL (0.0-1.0) 01/28/22 04:52 Eos # (Auto) 0.5 10^3/uL (0.0-0.7) 01/28/22 04:52 Baso # (Auto) 0.1 10^3/uL (0.0-0.1) 01/28/22 04:52 Absolute Nucleated RBC 0.04 x10^3/uL 01/28/22 04:52 Nucleated RBC % 0.7 /100WBC 01/28/22 04:52 Sodium 131 mmol/L (135-145) L 01/28/22 04:52 Potassium 4.5 mmol/L (3.5-5.0) 01/28/22 04:52 Chloride 96 mmol/L (101-111) L 01/28/22 04:52 Carbon Dioxide 23 mmol/L (21-32) 01/28/22 04:52 Anion Gap 12.0 (6-13) 01/28/22 04:52 BUN 16 mg/dL (6-20) 01/28/22 04:52 Creatinine 0.8 mg/dL (0.4-1.0) 01/28/22 04:52 Estimated GFR (MDRD) 77 (>89) L 01/28/22 04:52 Glucose 507 mg/dL (70-100) H* 01/28/22 04:52 Estimat Average Glucose 171 mg/dL (70-100) H 01/24/22 22:17 Hemoglobin A1c % 7.6 % (4.27-6.07) H 01/24/22 22:17 Calcium 8.6 mg/dL (8.5-10.3) 01/28/22 04:52 Iron 9 ug/dL (28-170) L 01/24/22 22:17 TIBC 367 ug/dL (250-450) 01/24/22 22:17 % Saturation 2 % (20-50) L 01/24/22 22:17 Transferrin 262 mg/dL (192-382) 01/24/22 22:17 Ferritin 6.0 ng/mL (11.0-306.8) L 01/24/22 22:17 Total Bilirubin 0.4 mg/dL (0.2-1.0) 01/24/22 20:12 AST 23 IU/L (10-42) 01/24/22 20:12 ALT 23 IU/L (10-60) 01/24/22 20:12 Alkaline Phosphatase 66 IU/L (42-121) 01/24/22 20:12 Total Protein 6.2 g/dL (6.7-8.2) L 01/24/22 20:12 Albumin 3.1 g/dL (3.2-5.5) L 01/24/22 20:12 Globulin 3.1 g/dL (2.1-4.2) 01/24/22 20:12 Albumin/Globulin Ratio 1.0 (1.0-2.2) 01/24/22 20:12 Lipase 26 U/L (22-51) 01/24/22 20:12 TSH 4.37 uIU/mL (0.34-5.60) 01/24/22 22:17 Urine Color YELLOW 01/26/22 08:20 Urine Clarity CLEAR (CLEAR) 01/26/22 08:20 Urine pH 6.0 PH (5.0-7.5) 01/26/22 08:20 Ur Specific [place] <=1.005 (1.002-1.030) 01/26/22 08:20 Urine Protein NEGATIVE mg/dL (NEGATIVE) 01/26/22 08:20 Urine Glucose (UA) >=1000 mg/dL (NEGATIVE) H 01/26/22 08:20 Urine Ketones 40 mg/dL (NEGATIVE) H 01/26/22 08:20 Urine Occult Blood NEGATIVE (NEGATIVE) 01/26/22 08:20 Urine Nitrite NEGATIVE (NEGATIVE) 01/26/22 08:20 Urine Bilirubin NEGATIVE (NEGATIVE) 01/26/22 08:20 Urine Urobilinogen 0.2 (NORMAL) E.U./dL (NORMAL) 01/26/22 08:20 Ur Leukocyte Esterase NEGATIVE (NEGATIVE) 01/26/22 08:20 Ur Microscopic Review NOT INDICATED 01/26/22 08:20 Urine Culture Comments NOT INDICATED 01/26/22 08:20 Urine HCG, Qual NEGATIVE 01/24/22 20:35 SARS-CoV-2 (PCR) NOT DETECTED 01/24/22 22:21 - Procedures Procedures: Procedures EXCISION OF STOMACH, ENDO, DIAGN (05/24/18) INSPECTION OF LOWER INTESTINAL TRACT, ENDO (05/24/18) REPOSITION RIGHT FIBULA WITH INT FIX, OPEN APPROACH (09/15/19) REPOSITION RIGHT TIBIA WITH INT FIX, OPEN APPROACH (09/15/19) TRANSFUSE NONAUT RED BLOOD CELLS IN PERIPH VEIN, PERC (09/15/19) ABX Reporting Has patient been on IV antibiotics over the past 48 hours?: No Current Medications - Current Medications Current Medications: Active Medications Acetaminophen (Acetaminophen 325 Mg Tablet) 650 mg PO Q4HR PRN PRN Reason: Pain 1 to 4 Last Admin: 01/26/22 20:04 Dose: 650 mg Acetaminophen/Butalbital/Caffeine (Butalb/Acetam/Caff 50/325/40mg Tablet) 1 tab PO Q4HR PRN PRN Reason: HEADACHE Last Admin: 01/28/22 07:51 Dose: 1 tab Atorvastatin Calcium (Atorvastatin 10 Mg Tablet) 10 mg PO QPM [facility] Last Admin: 01/27/22 20:28 Dose: 10 mg Duloxetine HCl (Duloxetine 30 Mg Capsule) 60 mg PO BID [facility] Last Admin: 01/28/22 07:48 Dose: 60 mg Ferrous Sulfate (Ferrous Sulfate 325 Mg Tablet) 325 mg PO DAILY [facility] Last Admin: 01/28/22 07:48 Dose: 325 mg Ibuprofen (Ibuprofen 400 Mg Tablet) 400 mg PO Q6HR PRN PRN Reason: PAIN Last Admin: 01/28/22 08:38 Dose: 400 mg Insulin Aspart (Insulin Aspart 300 Unit/3 Ml Pen) 3 - 11 unit SUBQ 0800,1200,1700,2100 [facility]; Protocol Last Admin: 01/28/22 08:14 Dose: 9 unit Insulin Glargine (Insulin Glargine 300 Unit/3 Ml Pen) 5 unit SUBQ QDBREAKFAST S Last Admin: 01/28/22 08:15 Dose: 5 unit Levothyroxine Sodium (Levothyroxine 125 Mcg Tablet) 125 mcg PO DAILY [facility] Last Admin: 01/28/22 07:49 Dose: 125 mcg Methocarbamol (Methocarbamol 500 Mg Tablet) 750 mg PO Q6H PRN PRN Reason: Muscle Spasms Last Admin: 01/28/22 08:38 Dose: 750 mg Metoclopramide HCl (Metoclopramide 10 Mg Tablet) 10 mg PO ACHS [facility] Last Admin: 01/28/22 06:15 Dose: 10 mg Pantoprazole Sodium (Pantoprazole 40 Mg Tablet) 40 mg PO QDAC [facility] Last Admin: 01/28/22 06:15 Dose: 40 mg Mirabegron [ Myrbetriq] 50 Mg Tab .Er.24h 1 each PO QPM [facility] Last Admin: 01/27/22 20:28 Dose: 1 each Prazosin HCl (Prazosin 1 Mg Capsule) 5 mg PO QPM [facility] Last Admin: 01/27/22 20:27 Dose: 5 mg Sodium Chloride (Sodium Chloride Flush 0.9% 10 Ml Syringe) 10 ml IVP PRN PRN PRN Reason: NEEDED PER PROVIDER ORDERS Sodium Chloride (Sodium Chloride Flush 0.9% 10 Ml Syringe) 10 ml IVP 0100,0900,1700 [facility] Last Admin: 01/28/22 07:49 Dose: 10 ml Spironolactone (Spironolactone 25 Mg Tablet) 100 mg PO DAILY [facility] Last Admin: 01/28/22 07:48 Dose: 100 mg Tolterodine Tartrate (Tolterodine La 2 Mg Capsule) 2 mg PO DAILY [facility] Last Admin: 01/28/22 07:48 Dose: 2 mg Trazodone HCl (Trazodone 50 Mg Tablet) 300 mg PO QPM [facility] Last Admin: 01/27/22 21:57 Dose: 300 mg Venlafaxine HCl (Venlafaxine Er 75 Mg Capsule) 75 mg PO DAILY [facility] Last Admin: 01/28/22 07:48 Dose: 75 mg Prazosin HCl 5 mg PO QPM 01/23/19 Trazodone HCl 300 mg PO QPM 01/23/19 Duloxetine HCl [Cymbalta] 60 mg PO BID 09/15/19 Butalb/Acetaminophen/Caffeine [Fioricet 50-300-40 mg Capsule] 1 cap PO Q4H PRN 11/06/20 Eszopiclone [Lunesta] 3 mg PO QPM PRN 11/06/20 Glucagon,Human Recombinant [Glucagon Emergency Kit] 1 mg IJ PRN PRN 11/06/20 Mirabegron [Myrbetriq] 50 mg PO QPM 11/06/20 Pantoprazole Sodium [Protonix] 20 mg PO QDAC 11/06/20 Simvastatin [Zocor] 20 mg PO QPM 11/06/20 Spironolactone [Aldactone] 100 mg PO DAILY 11/06/20 methocarbamoL [Robaxin-750] 750 mg PO Q6H PRN 11/06/20 Levothyroxine [Synthroid] 125 mcg PO DAILY 02/21/21 Venlafaxine ER [Effexor ER] 75 mg PO DAILY 09/19/21 Insulin Regular, Human [Novolin R Flexpen] 0 - 15 unit SQ TIDWM 01/25/22 Metoclopramide [Reglan] 10 mg PO ACHS 01/25/22 Tolterodine Tartrate [Detrol LA] 2 mg PO DAILY 01/25/22
[2022-01-28] MEDS: SPIRONOLACTONE 25 MG TABLET PO SCH (07:48)
[2022-01-28] MEDS: DULoxetine 30 MG CAPSULE PO SCH ×2 (07:48→20:16)
[2022-01-28] MEDS: TOLTERODINE LA 2 MG CAPSULE PO SCH (07:48)
[2022-01-28] MEDS: FERROUS SULFATE 325 MG TABLET PO SCH (07:48)
[2022-01-28] MEDS: VENLAFAXINE ER 75 MG CAPSULE PO SCH (07:48)
[2022-01-28] MEDS: LEVOTHYROXINE 125 MCG TABLET PO SCH (07:49)
[2022-01-28] MEDS: SODIUM CHLORIDE FLUSH 0.9% 10 ML SYRINGE IVP SCH ×3 (07:49→23:20)
[2022-01-28] MEDS: BUTALB/ACETAM/CAFF 50/325/40MG TABLET PO PRN ×3 (07:51→16:31)
[2022-01-28] MEDS ORDERED: INSULIN GLARGINE 300 UNIT/3 ML PEN SUBQ SCH (08:00)
[2022-01-28] MEDS: IBUPROFEN 400 MG TABLET PO PRN ×3 (08:38→20:20)
[2022-01-28] MEDS: methocarbamoL 500 MG TABLET PO PRN ×3 (08:38→20:20)
[2022-01-28] MEDS: ACETAMINOPHEN 325 MG TABLET PO PRN (18:01)
[2022-01-28] MEDS: ATORVASTATIN 10 MG TABLET PO SCH (20:16)
[2022-01-28] MEDS: traZODone 50 MG TABLET PO SCH (20:17)
[2022-01-28] MEDS: PRAZOSIN 1 MG CAPSULE PO SCH (20:17)
[2022-01-28] MEDS: Mirabegron [Myrbetriq] 50 MG Tab.Er.24h PO SCH (20:17)
[2022-01-29] MEDS: METOCLOPRAMIDE 10 MG TABLET PO SCH ×4 (06:05→20:36)
[2022-01-29] MEDS: PANTOPRAZOLE 40 MG TABLET PO SCH (06:05)
[2022-01-29] MEDS: methocarbamoL 500 MG TABLET PO PRN ×3 (06:07→17:59)
[2022-01-29] MEDS: BUTALB/ACETAM/CAFF 50/325/40MG TABLET PO PRN ×4 (06:07→17:59)
[2022-01-29] MEDS: IBUPROFEN 400 MG TABLET PO PRN ×3 (06:08→20:36)
[2022-01-29 06:09] LABS: BASOPHILS # (AUTO) 0.1 10^3/uL (0.0-0.1); EOSINOPHILS # (AUTO) 0.4 10^3/uL (0.0-0.7); EOSINOPHILS % (AUTO) 7.5 %; HCT - HEMATOCRIT 31.8 % (37.0-47.0); HGB - HEMOGLOBIN 9.7 g/dL (12.0-16.0); MEAN CORPUSCULAR HEMOGLOBIN 24.6 pg (27.0-31.0); MEAN CORPUSCULAR HGB CONC 30.5 g/dL (32.0-36.0); MEAN CORPUSCULAR VOLUME 80.5 fL (81.0-99.0); MEAN PLATELET VOLUME 9.8 fL (7.9-10.8); MONOCYTES # (AUTO) 0.5 10^3/uL (0.0-1.0); MONOCYTES % (AUTO) 9.6 %; NEUTROPHILS # (AUTO) 3.1 10^3/uL (1.5-6.6); NEUTROPHILS % (AUTO) 60.9 %; NRBC ABSOLUTE COUNT (AUTO) 0.02 x10^3/uL; NUCLEATED RED BLOOD CELLS AUTO 0.4 /100WBC; PLT - PLATELET COUNT 457 10^3/uL (130-450); RED BLOOD COUNT 3.95 10^6/uL (4.20-5.40); WHITE BLOOD COUNT 5.1 x10^3/uL (4.8-10.8)
[2022-01-29 06:26] LABS: CALCIUM 8.6 mg/dL (8.5-10.3); CREATININE 0.9 mg/dL (0.4-1.0); POTASSIUM 4.6 mmol/L (3.5-5.0)
[2022-01-29] MEDS ORDERED: INSULIN REGULAR HUMAN 300 UNIT/3 ML VIAL SUBQ ONE (06:52)
[2022-01-29] MEDS: LEVOTHYROXINE 125 MCG TABLET PO SCH (07:56)
[2022-01-29] MEDS: TOLTERODINE LA 2 MG CAPSULE PO SCH (07:56)
[2022-01-29] MEDS: FERROUS SULFATE 325 MG TABLET PO SCH (07:57)
[2022-01-29] MEDS: VENLAFAXINE ER 75 MG CAPSULE PO SCH (07:57)
[2022-01-29] MEDS: DULoxetine 30 MG CAPSULE PO SCH ×2 (07:57→20:36)
[2022-01-29] MEDS: SODIUM CHLORIDE FLUSH 0.9% 10 ML SYRINGE IVP SCH ×3 (07:58→23:41)
[2022-01-29] MEDS ORDERED: INSULIN GLARGINE 300 UNIT/3 ML PEN SUBQ SCH ×3 (09:00→21:00)
[2022-01-29] MEDS: INSULIN ASPART 300 UNIT/3 ML PEN SUBQ SCH ×6 (09:51→20:37)
--- NOTE | 2022-01-29 13:22 | PROVIDER PROGRESS NOTE ---
Assessment/Plan - Problem List (1) Uncontrolled type 1 diabetes mellitus with hyperglycemia Assessment/Plan: 01/29, pt had significant hyperglycemia at meat carrier today. we will gradually increase pt's insulin dosage, after discussed with pharmacy, we add bid lantus and schedule Tid Novolog, add extral night glucose check for pt. continue pt's slide scan to high level, ACHS glucose check, continue hypoglycemia protocol. 01/28 pt had glucose over 500 on last night. now she agree to have Lantus, incre ase pt's slide scan to high level, ACHS glucose check, continue hypoglycemia protocol. 01/27 pt has Glucose over 400 on today morning. Yesterday patient had hypoglycemia again after she was given insulin in the hospital. Patient reported she had insulin pump before but insulin pump was believed malfunction, then her mud analysis operator took her insulin pump away. Patient declined to have 3 units of Lantus, she report because Lantus insulin caused her hypoglycemia in the past. She reported she take regular insulin as needed and usually she took 3 times per day. Because of her nervous and anxiety, she reported she frequently check her glucose level every 2-3 hours. plan: we will have novolog for her Hyperglycemia now with slide scale. Advised patient Follow-up with her mud analysis operator, may reconsider to have Insulin pump, start to check her glucose level as the schedule 4 times per day except she is Symptomatic hypoglycemia. she Report she had glucagon at home for her hypoglycemia. (2) Hypoglycemia associated with diabetes Impression: 01/29 no hypoglycemia, continue ACHS glucose check, continue hypoglycemia protocol. 01/28 pt has significant hyperglycemia on last night. continue, lantus, slide scan to high level, ACHS glucose check, continue hypoglycemia protocol. pt had Symptomatic hypoglycemia even glucose level at 118 on yesterday. as dis cussed with pt above, we will setup pt's baseline glucose at 200, if above, we will start with pt's home regular, then Follow-up with her PCP and mud analysis operator. (3) Iron deficiency anemia Conclusion/Plan: Patient history of chronic anemia, iron deficiency. Her hemoglobin is stable at her baseline now. Repeat blood work continues to show iron deficiency anemia today. 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 Her TSH is normal at 4.37. (5) Depression and anxiety Conclusion/Plan: We will continue her home duloxetine and venlafaxine. (6) Urinary retention stable. Patient reported she urinated by herself now. continue home prozosin (7)medical noncompliant pt has hx medical noncompliant. discussed with pt, hope pt can followup with medical schedule to control her difficult control of DM1. - Current Meds Current Meds: Current Medications Generic Name Dose Route Start Last Admin Trade Name Freq PRN Reason Stop Dose Admin Acetaminophen 650 mg 01/24/22 22:01 01/28/22 18:01 Acetaminophen 325 Mg Tablet PO 650 mg Q4HR PRN Administration Pain 1 to 4 Acetaminophen/Butalbital/Caffeine 1 tab 01/25/22 08:36 01/29/22 10:04 Butalb/Acetam/Caff 50/325/40mg Tablet PO 1 tab Q4HR PRN Administration HEADACHE Atorvastatin Calcium 10 mg 01/26/22 21:00 01/28/22 20:16 Atorvastatin 10 Mg Tablet PO 10 mg QPM SHELL Administration Duloxetine HCl 60 mg 01/25/22 09:00 01/29/22 07:57 Duloxetine 30 Mg Capsule PO 60 mg BID SHELL Administration Ferrous Sulfate 325 mg 01/25/22 09:00 01/29/22 07:57 Ferrous Sulfate 325 Mg Tablet PO 325 mg DAILY SHELL Administration Ibuprofen 400 mg 01/27/22 10:21 01/29/22 12:13 Ibuprofen 400 Mg Tablet PO 400 mg Q6HR PRN Administration PAIN Insulin Aspart 3 - 11 unit 01/28/22 08:00 01/29/22 11:30 Insulin Aspart 300 Unit/3 Ml Pen SUBQ 5 unit 0800,1200,1700,2100 SHELL Administration Protocol Insulin Aspart 5 unit 01/29/22 12:00 01/29/22 12:59 Insulin Aspart 300 Unit/3 Ml Pen SUBQ Not Given TIDWM [facility] Protocol Levothyroxine Sodium 125 mcg 01/25/22 09:00 01/29/22 07:56 Levothyroxine 125 Mcg Tablet PO 125 mcg DAILY SHELL Administration Methocarbamol 750 mg 01/26/22 14:55 01/29/22 12:13 Methocarbamol 500 Mg Tablet PO 750 mg Q6H PRN Administration Muscle Spasms Metoclopramide HCl 10 mg 01/25/22 17:00 01/29/22 11:31 Metoclopramide 10 Mg Tablet PO 10 mg ACHS SHELL Administration Pantoprazole Sodium 40 mg 01/26/22 15:00 01/29/22 06:05 Pantoprazole 40 Mg Tablet PO 40 mg QDAC SHELL Administration Mirabegron [ 1 each 01/26/22 21:00 01/28/22 20:17 Myrbetriq] 50 Mg Tab PO 1 each .Er.24h QPM SHELL Administration Prazosin HCl 5 mg 01/26/22 21:00 01/28/22 20:17 Prazosin 1 Mg Capsule PO 5 mg QPM SHELL Administration Sodium Chloride 10 ml 01/25/22 01:00 01/29/22 07:58 Sodium Chloride Flush 0.9% 10 Ml Syringe IVP 10 ml 0100,0900,1700 SHELL Administration Tolterodine Tartrate 2 mg 01/27/22 09:00 01/29/22 07:56 Tolterodine La 2 Mg Capsule PO 2 mg DAILY SHELL Administration Trazodone HCl 300 mg 01/26/22 21:00 01/28/22 20:17 Trazodone 50 Mg Tablet PO 300 mg QPM SHELL Administration Venlafaxine HCl 75 mg 01/25/22 09:00 01/29/22 07:57 Venlafaxine Er 75 Mg Capsule PO 75 mg DAILY SHELL Administration - Lab Result Fish Bone Diagrams: 01/29/22 05:42 01/29/22 05:42 - Additional Planning My Orders: My Active Orders 01/29/[address] [ST] Routine 01/29/22 12:00 Insulin Aspart [NovoLOG] 5 unit SUBQ TIDWM 01/29/22 21:00 Insulin Glargine [Lantus Solostar] 10 unit SUBQ QPM 01/30/22 05:00 BMP - BASIC METABOLIC PANEL [CHEM] DAILYLAB CBC - COMP BLD CT W/AUTO DIFF [HEME] DAILYLAB 01/30/22 08:00 Insulin Glargine [Lantus Solostar] 5 unit SUBQ QDBREAKFAST 01/31/22 05:00 BMP - BASIC METABOLIC PANEL [CHEM] DAILYLAB CBC - COMP BLD CT W/AUTO DIFF [HEME] DAILYLAB 02/01/22 05:00 BMP - BASIC METABOLIC PANEL [CHEM] DAILYLAB CBC - COMP BLD CT W/AUTO DIFF [HEME] DAILYLAB Subjective - Subjective Patient Reports: Resting Comfortably Objective Vital Signs: Vital Signs - 24 hr 01/28/22 01/28/22 01/29/22 15:27 23:15 06:40 Temperature 36.8 C 36.9 C 36.6 C Heart Rate [ 85 105 H 96 Brachial] Respiratory 19 16 18 Rate Blood Pressure [Left Brachial artery] Blood Pressure 127/78 109/58 L 123/74 [Right Brachial artery] O2 Saturation 97 95 97 01/29/22 11:32 Temperature Heart Rate [ 100 Brachial] Respiratory 17 Rate Blood Pressure 126/76 [Left Brachial artery] Blood Pressure [Right Brachial artery] O2 Saturation 97 Oxygen O2 Source Room air I&O (Last 24 Hrs): Intake and Output Totals x24h 01/27/22 01/28/22 01/29/22 23:59 23:59 23:59 Intake Total 1180 1994 860 Output Total 600 1200 2000 Balance 580 794 -1140 General: Alert, Oriented x3, Cooperative, No acute distress HEENT: Atraumatic Neck: Supple Lymphatic: no adenopathy Neuro: Alert, Non Focal, Oriented Times 3 Cardiovascular: Regular rate, Normal S1, Normal S2 Respiratory: Chest non-tender, No respiratory distress, Breath sounds nml Abdomen: Normal bowel sounds, Soft Extremities: Normal pulses - Results Results: Laboratory Results WBC 5.1 x10^3/uL (4.8-10.8) 01/29/22 05:42 RBC 3.95 10^6/uL (4.20-5.40) L 01/29/22 05:42 Hgb 9.7 g/dL (12.0-16.0) L 01/29/22 05:42 Hct 31.8 % (37.0-47.0) L 01/29/22 05:42 MCV 80.5 fL (81.0-99.0) L 01/29/22 05:42 MCH 24.6 pg (27.0-31.0) L 01/29/22 05:42 MCHC 30.5 g/dL (32.0-36.0) L 01/29/22 05:42 RDW 19.0 % (12.0-15.0) H 01/29/22 05:42 Plt Count 457 10^3/uL (130-450) H 01/29/22 05:42 MPV 9.8 fL (7.9-10.8) 01/29/22 05:42 Neut # (Auto) 3.1 10^3/uL (1.5-6.6) 01/29/22 05:42 Lymph # (Auto) 1.0 10^3/uL (1.5-3.5) L 01/29/22 05:42 [place] # (Auto) 0.5 10^3/uL (0.0-1.0) 01/29/22 05:42 Eos # (Auto) 0.4 10^3/uL (0.0-0.7) 01/29/22 05:42 Baso # (Auto) 0.1 10^3/uL (0.0-0.1) 01/29/22 05:42 Absolute Nucleated RBC 0.02 x10^3/uL 01/29/22 05:42 Nucleated RBC % 0.4 /100WBC 01/29/22 05:42 Sodium 130 mmol/L (135-145) L 01/29/22 05:42 Potassium 4.6 mmol/L (3.5-5.0) 01/29/22 05:42 Chloride 95 mmol/L (101-111) L 01/29/22 05:42 Carbon Dioxide 22 mmol/L (21-32) 01/29/22 05:42 Anion Gap 13.0 (6-13) 01/29/22 05:42 BUN 19 mg/dL (6-20) 01/29/22 05:42 Creatinine 0.9 mg/dL (0.4-1.0) 01/29/22 05:42 Estimated GFR (MDRD) 67 (>89) L 01/29/22 05:42 Glucose 554 mg/dL (70-100) H* 01/29/22 05:42 Estimat Average Glucose 171 mg/dL (70-100) H 01/24/22 22:17 Hemoglobin A1c % 7.6 % (4.27-6.07) H 01/24/22 22:17 Calcium 8.6 mg/dL (8.5-10.3) 01/29/22 05:42 Iron 9 ug/dL (28-170) L 01/24/22 22:17 TIBC 367 ug/dL (250-450) 01/24/22 22:17 % Saturation 2 % (20-50) L 01/24/22 22:17 Transferrin 262 mg/dL (192-382) 01/24/22 22:17 Ferritin 6.0 ng/mL (11.0-306.8) L 01/24/22 22:17 Total Bilirubin 0.4 mg/dL (0.2-1.0) 01/24/22 20:12 AST 23 IU/L (10-42) 01/24/22 20:12 ALT 23 IU/L (10-60) 01/24/22 20:12 Alkaline Phosphatase 66 IU/L (42-121) 01/24/22 20:12 Total Protein 6.2 g/dL (6.7-8.2) L 01/24/22 20:12 Albumin 3.1 g/dL (3.2-5.5) L 01/24/22 20:12 Globulin 3.1 g/dL (2.1-4.2) 01/24/22 20:12 Albumin/Globulin Ratio 1.0 (1.0-2.2) 01/24/22 20:12 Lipase 26 U/L (22-51) 01/24/22 20:12 TSH 4.37 uIU/mL (0.34-5.60) 01/24/22 22:17 Urine Color YELLOW 01/26/22 08:20 Urine Clarity CLEAR (CLEAR) 01/26/22 08:20 Urine pH 6.0 PH (5.0-7.5) 01/26/22 08:20 Ur Specific [place] <=1.005 (1.002-1.030) 01/26/22 08:20 Urine Protein NEGATIVE mg/dL (NEGATIVE) 01/26/22 08:20 Urine Glucose (UA) >=1000 mg/dL (NEGATIVE) H 01/26/22 08:20 Urine Ketones 40 mg/dL (NEGATIVE) H 01/26/22 08:20 Urine Occult Blood NEGATIVE (NEGATIVE) 01/26/22 08:20 Urine Nitrite NEGATIVE (NEGATIVE) 01/26/22 08:20 Urine Bilirubin NEGATIVE (NEGATIVE) 01/26/22 08:20 Urine Urobilinogen 0.2 (NORMAL) E.U./dL (NORMAL) 01/26/22 08:20 Ur Leukocyte Esterase NEGATIVE (NEGATIVE) 01/26/22 08:20 Ur Microscopic Review NOT INDICATED 01/26/22 08:20 Urine Culture Comments NOT INDICATED 01/26/22 08:20 Urine HCG, Qual NEGATIVE 01/24/22 20:35 SARS-CoV-2 (PCR) NOT DETECTED 01/24/22 22:21 - Procedures Procedures: Procedures EXCISION OF STOMACH, ENDO, DIAGN (05/24/18) INSPECTION OF LOWER INTESTINAL TRACT, ENDO (05/24/18) REPOSITION RIGHT FIBULA WITH INT FIX, OPEN APPROACH (09/15/19) REPOSITION RIGHT TIBIA WITH INT FIX, OPEN APPROACH (09/15/19) TRANSFUSE NONAUT RED BLOOD CELLS IN PERIPH VEIN, PERC (09/15/19) ABX Reporting Has patient been on IV antibiotics over the past 48 hours?: No Current Medications - Current Medications Current Medications: Active Medications Acetaminophen (Acetaminophen 325 Mg Tablet) 650 mg PO Q4HR PRN PRN Reason: Pain 1 to 4 Last Admin: 01/28/22 18:01 Dose: 650 mg Acetaminophen/Butalbital/Caffeine (Butalb/Acetam/Caff 50/325/40mg Tablet) 1 tab PO Q4HR PRN PRN Reason: HEADACHE Last Admin: 01/29/22 10:04 Dose: 1 tab Atorvastatin Calcium (Atorvastatin 10 Mg Tablet) 10 mg PO QPM [facility] Last Admin: 01/28/22 20:16 Dose: 10 mg Duloxetine HCl (Duloxetine 30 Mg Capsule) 60 mg PO BID [facility] Last Admin: 01/29/22 07:57 Dose: 60 mg Ferrous Sulfate (Ferrous Sulfate 325 Mg Tablet) 325 mg PO DAILY [facility] Last Admin: 01/29/22 07:57 Dose: 325 mg Ibuprofen (Ibuprofen 400 Mg Tablet) 400 mg PO Q6HR PRN PRN Reason: PAIN Last Admin: 01/29/22 12:13 Dose: 400 mg Insulin Aspart (Insulin Aspart 300 Unit/3 Ml Pen) 3 - 11 unit SUBQ 0800,1200,1700,2100 [facility]; Protocol Last Admin: 01/29/22 11:30 Dose: 5 unit Insulin Aspart (Insulin Aspart 300 Unit/3 Ml Pen) 5 unit SUBQ TIDWM [facility]; Protocol Last Admin: 01/29/22 12:59 Dose: Not Given Insulin Glargine (Insulin Glargine 300 Unit/3 Ml Pen) 10 unit SUBQ QPM [facility] Insulin Glargine (Insulin Glargine 300 Unit/3 Ml Pen) 5 unit SUBQ QDBREAKFAST [facility] Levothyroxine Sodium (Levothyroxine 125 Mcg Tablet) 125 mcg PO DAILY [facility] Last Admin: 01/29/22 07:56 Dose: 125 mcg Methocarbamol (Methocarbamol 500 Mg Tablet) 750 mg PO Q6H PRN PRN Reason: Muscle Spasms Last Admin: 01/29/22 12:13 Dose: 750 mg Metoclopramide HCl (Metoclopramide 10 Mg Tablet) 10 mg PO ACHS [facility] Last Admin: 01/29/22 11:31 Dose: 10 mg Pantoprazole Sodium (Pantoprazole 40 Mg Tablet) 40 mg PO QDAC [facility] Last Admin: 01/29/22 06:05 Dose: 40 mg Mirabegron [ Myrbetriq] 50 Mg Tab .Er.24h 1 each PO QPM [facility] Last Admin: 01/28/22 20:17 Dose: 1 each Prazosin HCl (Prazosin 1 Mg Capsule) 5 mg PO QPM [facility] Last Admin: 01/28/22 20:17 Dose: 5 mg Sodium Chloride (Sodium Chloride Flush 0.9% 10 Ml Syringe) 10 ml IVP PRN PRN PRN Reason: NEEDED PER PROVIDER ORDERS Sodium Chloride (Sodium Chloride Flush 0.9% 10 Ml Syringe) 10 ml IVP 0100,0900,1700 [facility] Last Admin: 01/29/22 07:58 Dose: 10 ml Tolterodine Tartrate (Tolterodine La 2 Mg Capsule) 2 mg PO DAILY [facility] Last Admin: 01/29/22 07:56 Dose: 2 mg Trazodone HCl (Trazodone 50 Mg Tablet) 300 mg PO QPM [facility] Last Admin: 01/28/22 20:17 Dose: 300 mg Venlafaxine HCl (Venlafaxine Er 75 Mg Capsule) 75 mg PO DAILY [facility] Last Admin: 01/29/22 07:57 Dose: 75 mg Prazosin HCl 5 mg PO QPM 01/23/19 Trazodone HCl 300 mg PO QPM 01/23/19 Duloxetine HCl [Cymbalta] 60 mg PO BID 09/15/19 Butalb/Acetaminophen/Caffeine [Fioricet 50-300-40 mg Capsule] 1 cap PO Q4H PRN 11/06/20 Eszopiclone [Lunesta] 3 mg PO QPM PRN 11/06/20 Glucagon,Human Recombinant [Glucagon Emergency Kit] 1 mg IJ PRN PRN 11/06/20 Mirabegron [Myrbetriq] 50 mg PO QPM 11/06/20 Pantoprazole Sodium [Protonix] 20 mg PO QDAC 11/06/20 Simvastatin [Zocor] 20 mg PO QPM 11/06/20 Spironolactone [Aldactone] 100 mg PO DAILY 11/06/20 methocarbamoL [Robaxin-750] 750 mg PO Q6H PRN 11/06/20 Levothyroxine [Synthroid] 125 mcg PO DAILY 02/21/21 Venlafaxine ER [Effexor ER] 75 mg PO DAILY 09/19/21 Insulin Regular, Human [Novolin R Flexpen] 0 - 15 unit SQ TIDWM 01/25/22 Metoclopramide [Reglan] 10 mg PO ACHS 01/25/22 Tolterodine Tartrate [Detrol LA] 2 mg PO DAILY 01/25/22
[2022-01-29] MEDS: ACETAMINOPHEN 325 MG TABLET PO PRN (15:45)
[2022-01-29] MEDS: Mirabegron [Myrbetriq] 50 MG Tab.Er.24h PO SCH (20:36)
[2022-01-29] MEDS: ATORVASTATIN 10 MG TABLET PO SCH (20:37)
[2022-01-29] MEDS: PRAZOSIN 1 MG CAPSULE PO SCH (20:37)
[2022-01-29] MEDS: traZODone 50 MG TABLET PO SCH (22:02)
[2022-01-30] MEDS: IBUPROFEN 400 MG TABLET PO PRN ×2 (05:53→11:55)
[2022-01-30] MEDS: BUTALB/ACETAM/CAFF 50/325/40MG TABLET PO PRN ×4 (05:54→18:59)
[2022-01-30] MEDS: METOCLOPRAMIDE 10 MG TABLET PO SCH ×4 (05:54→20:53)
[2022-01-30] MEDS: PANTOPRAZOLE 40 MG TABLET PO SCH (05:54)
[2022-01-30] MEDS: methocarbamoL 500 MG TABLET PO PRN ×2 (05:54→14:00)
[2022-01-30 06:11] LABS: CALCIUM 8.6 mg/dL (8.5-10.3); CREATININE 0.8 mg/dL (0.4-1.0); POTASSIUM 4.4 mmol/L (3.5-5.0)
[2022-01-30 06:21] LABS: BASOPHILS # (AUTO) 0.1 10^3/uL (0.0-0.1); BASOPHILS % (AUTO) 1.1 %; EOSINOPHILS # (AUTO) 0.5 10^3/uL (0.0-0.7); EOSINOPHILS % (AUTO) 10.4 %; HGB - HEMOGLOBIN 9.9 g/dL (12.0-16.0); LYMPHOCYTES # (AUTO) 1.2 10^3/uL (1.5-3.5); LYMPHOCYTES % (AUTO) 25.7 %; MEAN CORPUSCULAR HEMOGLOBIN 24.8 pg (27.0-31.0); MEAN CORPUSCULAR HGB CONC 30.9 g/dL (32.0-36.0); MEAN PLATELET VOLUME 9.9 fL (7.9-10.8); MONOCYTES # (AUTO) 0.4 10^3/uL (0.0-1.0); MONOCYTES % (AUTO) 8.3 %; NEUTROPHILS # (AUTO) 2.5 10^3/uL (1.5-6.6); NEUTROPHILS % (AUTO) 53.2 %; PLT - PLATELET COUNT 419 10^3/uL (130-450); RED CELL DISTRIBUTION WIDTH 19.9 % (12.0-15.0); WHITE BLOOD COUNT 4.7 x10^3/uL (4.8-10.8)
[2022-01-30] MEDS: INSULIN ASPART 300 UNIT/3 ML PEN SUBQ SCH ×7 (07:33→20:52)
--- NOTE | 2022-01-30 07:56 | PROVIDER PROGRESS NOTE ---
Assessment/Plan - Problem List (1) Uncontrolled type 1 diabetes mellitus with hyperglycemia Assessment/Plan: 01/30 improved. glucose is 388 at morning. we will add 5 lantus at morning, increase to 10 unit lantus on the night. yesterday pt only got 5 unit of schedule Novolog, today pt will have Tid of scheduled nutritional dosage of Novolog, plus slide scale. 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 we will gradually increase pt's insulin dosage, after discussed with pharmacy, we add bid lantus and schedule Tid Novolog, add extral night glucose check for pt. continue pt's slide scan to high level, ACHS glucose check, continue hypoglycemia protocol. 01/28 pt had glucose over 500 on last night. now she agree to have Lantus, increase pt's slide scan to high level, ACHS glucose check, continue hypoglycemia protocol. 01/27 pt has Glucose over 400 on today morning. Yesterday patient had hypoglycemia again after she was given insulin in the hospital. Patient reported she had insulin pump before but insulin pump was believed malfunction, then her microfilm machine operator took her insulin pump away. Patient declined to have 3 units of Lantus, she report because Lantus insulin caused her hypoglycemia in the past. She reported she take regular insulin as needed and usually she took 3 times per day. Because of her nervous and anxiety, she reported she frequently check her glucose level every 2-3 hours. plan: we will have novolog for her Hyperglycemia now with slide scale. Advised patient Follow-up with her microfilm machine operator, may reconsider to have Insulin pump, start to check her glucose level as the schedule 4 times per day except she is Symptomatic hypoglycemia. she Report she had glucagon at home for her hypoglycemia. (2) Hypoglycemia associated with diabetes Impression: 01/29 no hypoglycemia, continue ACHS glucose check, continue hypoglycemia protocol. 01/28 pt has significant hyperglycemia on last night. continue, lantus, slide scan to high level, ACHS glucose check, continue hypoglycemia protocol. pt had Symptomatic hypoglycemia even glucose level at 118 on yesterday. as discussed with pt above, we will setup pt's baseline glucose at 200, if above, we will start with pt's home regular, then Follow-up with her PCP and microfilm machine operator. (3) Iron deficiency anemia Conclusion/Plan: 01/30 improved. Hemoglobin is 9.9, increased. We will continue Iron supplement, continue clinical laboratory medical director Patient history of chronic anemia, iron deficiency. Her hemoglobin is stable at her baseline now. Repeat blood work continues to show iron deficiency anemia today. continue Iron supplement. And clinical laboratory medical director (4) Hypothyroidism Conclusion/Plan: We will continue home Synthroid. Her TSH is normal at 4.37. (5) Depression and anxiety Conclusion/Plan: We will continue her home duloxetine and venlafaxine. (6) Urinary retention stable. Patient reported she urinated by herself now. continue home prozosin (7)medical noncompliant pt has hx medical noncompliant. discussed with pt, hope pt can followup with medical schedule to control her difficult control of DM1. - Current Meds Current Meds: Current Medications Generic Name Dose Route Start Last Admin Trade Name Freq PRN Reason Stop Dose Admin Acetaminophen 650 mg 01/24/22 22:01 01/29/22 15:45 Acetaminophen 325 Mg Tablet PO 650 mg Q4HR PRN Administration Pain 1 to 4 Acetaminophen/Butalbital/Caffeine 1 tab 01/25/22 08:36 01/30/22 05:54 Butalb/Acetam/Caff 50/325/40mg Tablet PO 1 tab Q4HR PRN Administration HEADACHE Atorvastatin Calcium 10 mg 01/26/22 21:00 01/29/22 20:37 Atorvastatin 10 Mg Tablet PO 10 mg QPM SHELL Administration Duloxetine HCl 60 mg 01/25/22 09:00 01/29/22 20:36 Duloxetine 30 Mg Capsule PO 60 mg BID SHELL Administration Ferrous Sulfate 325 mg 01/25/22 09:00 01/29/22 07:57 Ferrous Sulfate 325 Mg Tablet PO 325 mg DAILY SHELL Administration Ibuprofen 400 mg 01/27/22 10:21 01/30/22 05:53 Ibuprofen 400 Mg Tablet PO 400 mg Q6HR PRN Administration PAIN Insulin Aspart 3 - 11 unit 01/28/22 08:00 01/30/22 07:33 Insulin Aspart 300 Unit/3 Ml Pen SUBQ 11 unit 0800,1200,1700,2100 SHELL Administration Protocol Insulin Aspart 5 unit 01/29/22 12:00 01/30/22 07:34 Insulin Aspart 300 Unit/3 Ml Pen SUBQ 5 unit TIDWM SHELL Administration Protocol Levothyroxine Sodium 125 mcg 01/25/22 09:00 01/29/22 07:56 Levothyroxine 125 Mcg Tablet PO 125 mcg DAILY SHELL Administration Methocarbamol 750 mg 01/26/22 14:55 01/30/22 05:54 Methocarbamol 500 Mg Tablet PO 750 mg Q6H PRN Administration Muscle Spasms Metoclopramide HCl 10 mg 01/25/22 17:00 01/30/22 05:54 Metoclopramide 10 Mg Tablet PO 10 mg ACHS SHELL Administration Pantoprazole Sodium 40 mg 01/26/22 15:00 01/30/22 05:54 Pantoprazole 40 Mg Tablet PO 40 mg QDAC SHELL Administration Mirabegron [ 1 each 01/26/22 21:00 01/29/22 20:36 Myrbetriq] 50 Mg Tab PO 1 each .Er.24h QPM SHELL Administration Prazosin HCl 5 mg 01/26/22 21:00 01/29/22 20:37 Prazosin 1 Mg Capsule PO 5 mg QPM SHELL Administration Sodium Chloride 10 ml 01/25/22 01:00 01/29/22 23:41 Sodium Chloride Flush 0.9% 10 Ml Syringe IVP 10 ml 0100,0900,1700 SHELL Administration Tolterodine Tartrate 2 mg 01/27/22 09:00 01/29/22 07:56 Tolterodine La 2 Mg Capsule PO 2 mg DAILY SHELL Administration Trazodone HCl 300 mg 01/26/22 21:00 01/29/22 22:02 Trazodone 50 Mg Tablet PO 300 mg QPM SHELL Administration Venlafaxine HCl 75 mg 01/25/22 09:00 01/29/22 07:57 Venlafaxine Er 75 Mg Capsule PO 75 mg DAILY SHELL Administration - Lab Result Fish Bone Diagrams: 01/30/22 05:53 01/30/22 05:53 - Additional Planning My Orders: My Active Orders 01/29/22 12:00 Insulin Aspart [NovoLOG] 5 unit SUBQ TIDWM 01/30/22 08:00 Insulin Glargine [Lantus Solostar] 5 unit SUBQ QDBREAKFAST 01/30/22 21:00 Insulin Glargine [Lantus Solostar] 10 unit SUBQ QPM 01/31/22 01:00 GLUCOSE [CHEM] Timed 01/31/22 05:00 BMP - BASIC METABOLIC PANEL [CHEM] DAILYLAB CBC - COMP BLD CT W/AUTO DIFF [HEME] DAILYLAB 02/01/22 05:00 BMP - BASIC METABOLIC PANEL [CHEM] DAILYLAB CBC - COMP BLD CT W/AUTO DIFF [HEME] DAILYLAB Subjective - Subjective Patient Reports: Resting Comfortably Objective Vital Signs: Vital Signs - 24 hr 01/29/22 01/29/22 01/29/22 11:32 16:02 23:41 Temperature 36.4 C L 36.7 C Heart Rate [ 100 89 103 H Brachial] Respiratory 17 16 16 Rate Blood Pressure 126/76 [Left Brachial artery] Blood Pressure 144/82 H 101/63 [Right Brachial artery] O2 Saturation 97 96 93 01/30/22 07:25 Temperature 36.5 C Heart Rate [ 105 H Brachial] Respiratory 16 Rate Blood Pressure [Left Brachial artery] Blood Pressure 98/59 L [Right Brachial artery] O2 Saturation 95 Oxygen O2 Source Room air I&O (Last 24 Hrs): Intake and Output Totals x24h 01/28/22 01/29/22 01/30/22 23:59 23:59 23:59 Intake Total 1993 1993 Output Total 1200 2750 400 Balance 794 -756 -400 General: Alert, Oriented x3, No acute distress HEENT: Atraumatic Neck: Supple Lymphatic: no adenopathy Neuro: Alert, Non Focal, Oriented Times 3 Cardiovascular: Regular rate, Normal S1, Normal S2 Respiratory: Chest non-tender, No respiratory distress Abdomen: Normal bowel sounds, Soft Extremities: Normal pulses - Results Results: Laboratory Results WBC 4.7 x10^3/uL (4.8-10.8) L 01/30/22 05:53 RBC 4.00 10^6/uL (4.20-5.40) L 01/30/22 05:53 Hgb 9.9 g/dL (12.0-16.0) L 01/30/22 05:53 Hct 32.0 % (37.0-47.0) L 01/30/22 05:53 MCV 80.0 fL (81.0-99.0) L 01/30/22 05:53 MCH 24.8 pg (27.0-31.0) L 01/30/22 05:53 MCHC 30.9 g/dL (32.0-36.0) L 01/30/22 05:53 RDW 19.9 % (12.0-15.0) H 01/30/22 05:53 Plt Count 419 10^3/uL (130-450) 01/30/22 05:53 MPV 9.9 fL (7.9-10.8) 01/30/22 05:53 Neut # (Auto) 2.5 10^3/uL (1.5-6.6) 01/30/22 05:53 Lymph # (Auto) 1.2 10^3/uL (1.5-3.5) L 01/30/22 05:53 [place] # (Auto) 0.4 10^3/uL (0.0-1.0) 01/30/22 05:53 Eos # (Auto) 0.5 10^3/uL (0.0-0.7) 01/30/22 05:53 Baso # (Auto) 0.1 10^3/uL (0.0-0.1) 01/30/22 05:53 Absolute Nucleated RBC 0.00 x10^3/uL 01/30/22 05:53 Nucleated RBC % 0.0 /100WBC 01/30/22 05:53 Sodium 131 mmol/L (135-145) L 01/30/22 05:53 Potassium 4.4 mmol/L (3.5-5.0) 01/30/22 05:53 Chloride 97 mmol/L (101-111) L 01/30/22 05:53 Carbon Dioxide 23 mmol/L (21-32) 01/30/22 05:53 Anion Gap 11.0 (6-13) 01/30/22 05:53 BUN 16 mg/dL (6-20) 01/30/22 05:53 Creatinine 0.8 mg/dL (0.4-1.0) 01/30/22 05:53 Estimated GFR (MDRD) 77 (>89) L 01/30/22 05:53 Glucose 388 mg/dL (70-100) H 01/30/22 05:53 Estimat Average Glucose 171 mg/dL (70-100) H 01/24/22 22:17 Hemoglobin A1c % 7.6 % (4.27-6.07) H 01/24/22 22:17 Calcium 8.6 mg/dL (8.5-10.3) 01/30/22 05:53 Iron 9 ug/dL (28-170) L 01/24/22 22:17 TIBC 367 ug/dL (250-450) 01/24/22 22:17 % Saturation 2 % (20-50) L 01/24/22 22:17 Transferrin 262 mg/dL (192-382) 01/24/22 22:17 Ferritin 6.0 ng/mL (11.0-306.8) L 01/24/22 22:17 Total Bilirubin 0.4 mg/dL (0.2-1.0) 01/24/22 20:12 AST 23 IU/L (10-42) 01/24/22 20:12 ALT 23 IU/L (10-60) 01/24/22 20:12 Alkaline Phosphatase 66 IU/L (42-121) 01/24/22 20:12 Total Protein 6.2 g/dL (6.7-8.2) L 01/24/22 20:12 Albumin 3.1 g/dL (3.2-5.5) L 01/24/22 20:12 Globulin 3.1 g/dL (2.1-4.2) 01/24/22 20:12 Albumin/Globulin Ratio 1.0 (1.0-2.2) 01/24/22 20:12 Lipase 26 U/L (22-51) 01/24/22 20:12 TSH 4.37 uIU/mL (0.34-5.60) 01/24/22 22:17 Urine Color YELLOW 01/26/22 08:20 Urine Clarity CLEAR (CLEAR) 01/26/22 08:20 Urine pH 6.0 PH (5.0-7.5) 01/26/22 08:20 Ur Specific [place] <=1.005 (1.002-1.030) 01/26/22 08:20 Urine Protein NEGATIVE mg/dL (NEGATIVE) 01/26/22 08:20 Urine Glucose (UA) >=1000 mg/dL (NEGATIVE) H 01/26/22 08:20 Urine Ketones 40 mg/dL (NEGATIVE) H 01/26/22 08:20 Urine Occult Blood NEGATIVE (NEGATIVE) 01/26/22 08:20 Urine Nitrite NEGATIVE (NEGATIVE) 01/26/22 08:20 Urine Bilirubin NEGATIVE (NEGATIVE) 01/26/22 08:20 Urine Urobilinogen 0.2 (NORMAL) E.U./dL (NORMAL) 01/26/22 08:20 Ur Leukocyte Esterase NEGATIVE (NEGATIVE) 01/26/22 08:20 Ur Microscopic Review NOT INDICATED 01/26/22 08:20 Urine Culture Comments NOT INDICATED 01/26/22 08:20 Urine HCG, Qual NEGATIVE 01/24/22 20:35 SARS-CoV-2 (PCR) NOT DETECTED 01/24/22 22:21 - Procedures Procedures: Procedures EXCISION OF STOMACH, ENDO, DIAGN (05/24/18) INSPECTION OF LOWER INTESTINAL TRACT, ENDO (05/24/18) REPOSITION RIGHT FIBULA WITH INT FIX, OPEN APPROACH (09/15/19) REPOSITION RIGHT TIBIA WITH INT FIX, OPEN APPROACH (09/15/19) TRANSFUSE NONAUT RED BLOOD CELLS IN PERIPH VEIN, PERC (09/15/19) ABX Reporting Has patient been on IV antibiotics over the past 48 hours?: No Current Medications - Current Medications Current Medications: Active Medications Acetaminophen (Acetaminophen 325 Mg Tablet) 650 mg PO Q4HR PRN PRN Reason: Pain 1 to 4 Last Admin: 01/29/22 15:45 Dose: 650 mg Acetaminophen/Butalbital/Caffeine (Butalb/Acetam/Caff 50/325/40mg Tablet) 1 tab PO Q4HR PRN PRN Reason: HEADACHE Last Admin: 01/30/22 05:54 Dose: 1 tab Atorvastatin Calcium (Atorvastatin 10 Mg Tablet) 10 mg PO QPM [facility] Last Admin: 01/29/22 20:37 Dose: 10 mg Duloxetine HCl (Duloxetine 30 Mg Capsule) 60 mg PO BID [facility] Last Admin: 01/29/22 20:36 Dose: 60 mg Ferrous Sulfate (Ferrous Sulfate 325 Mg Tablet) 325 mg PO DAILY [facility] Last Admin: 01/29/22 07:57 Dose: 325 mg Ibuprofen (Ibuprofen 400 Mg Tablet) 400 mg PO Q6HR PRN PRN Reason: PAIN Last Admin: 01/30/22 05:53 Dose: 400 mg Insulin Aspart (Insulin Aspart 300 Unit/3 Ml Pen) 3 - 11 unit SUBQ 080 0,1200,1700,2100 [facility]; Protocol Last Admin: 01/30/22 07:33 Dose: 11 unit Insulin Aspart (Insulin Aspart 300 Unit/3 Ml Pen) 5 unit SUBQ TIDWM [facility]; Protocol Last Admin: 01/30/22 07:34 Dose: 5 unit Insulin Glargine (Insulin Glargine 300 Unit/3 Ml Pen) 5 unit SUBQ QDBREAKFAST [facility] Insulin Glargine (Insulin Glargine 300 Unit/3 Ml Pen) 10 unit SUBQ QPM [facility] Levothyroxine Sodium (Levothyroxine 125 Mcg Tablet) 125 mcg PO DAILY [facility] Last Admin: 01/29/22 07:56 Dose: 125 mcg Methocarbamol (Methocarbamol 500 Mg Tablet) 750 mg PO Q6H PRN PRN Reason: Muscle Spasms Last Admin: 01/30/22 05:54 Dose: 750 mg Metoclopramide HCl (Metoclopramide 10 Mg Tablet) 10 mg PO ACHS [facility] Last Admin: 01/30/22 05:54 Dose: 10 mg Pantoprazole Sodium (Pantoprazole 40 Mg Tablet) 40 mg PO QDAC [facility] Last Admin: 01/30/22 05:54 Dose: 40 mg Mirabegron [ Myrbetriq] 50 Mg Tab .Er.24h 1 each PO QPM [facility] Last Admin: 01/29/22 20:36 Dose: 1 each Prazosin HCl (Prazosin 1 Mg Capsule) 5 mg PO QPM [facility] Last Admin: 01/29/22 20:37 Dose: 5 mg Sodium Chloride (Sodium Chloride Flush 0.9% 10 Ml Syringe) 10 ml IVP PRN PRN PRN Reason: NEEDED PER PROVIDER ORDERS Sodium Chloride (Sodium Chloride Flush 0.9% 10 Ml Syringe) 10 ml IVP 0100,0900,1700 [facility] Last Admin: 01/29/22 23:41 Dose: 10 ml Tolterodine Tartrate (Tolterodine La 2 Mg Capsule) 2 mg PO DAILY [facility] Last Admin: 01/29/22 07:56 Dose: 2 mg Trazodone HCl (Trazodone 50 Mg Tablet) 300 mg PO QPM [facility] Last Admin: 01/29/22 22:02 Dose: 300 mg Venlafaxine HCl (Venlafaxine Er 75 Mg Capsule) 75 mg PO DAILY [facility] Last Admin: 01/29/22 07:57 Dose: 75 mg Prazosin HCl 5 mg PO QPM 01/23/19 Trazodone HCl 300 mg PO QPM 01/23/19 Duloxetine HCl [Cymbalta] 60 mg PO BID 09/15/19 Butalb/Acetaminophen/Caffeine [Fioricet 50-300-40 mg Capsule] 1 cap PO Q4H PRN 11/06/20 Eszopiclone [Lunesta] 3 mg PO QPM PRN 11/06/20 Glucagon,Human Recombinant [Glucagon Emergency Kit] 1 mg IJ PRN PRN 11/06/20 Mirabegron [Myrbetriq] 50 mg PO QPM 11/06/20 Pantoprazole Sodium [Protonix] 20 mg PO QDAC 11/06/20 Simvastatin [Zocor] 20 mg PO QPM 11/06/20 Spironolactone [Aldactone] 100 mg PO DAILY 11/06/20 methocarbamoL [Robaxin-750] 750 mg PO Q6H PRN 11/06/20 Levothyroxine [Synthroid] 125 mcg PO DAILY 02/21/21 Venlafaxine ER [Effexor ER] 75 mg PO DAILY 09/19/21 Insulin Regular, Human [Novolin R Flexpen] 0 - 15 unit SQ TIDWM 01/25/22 Metoclopramide [Reglan] 10 mg PO ACHS 01/25/22 Tolterodine Tartrate [Detrol LA] 2 mg PO DAILY 01/25/22
[2022-01-30] MEDS: DULoxetine 30 MG CAPSULE PO SCH ×2 (08:04→20:53)
[2022-01-30] MEDS: LEVOTHYROXINE 125 MCG TABLET PO SCH (08:04)
[2022-01-30] MEDS: FERROUS SULFATE 325 MG TABLET PO SCH (08:05)
[2022-01-30] MEDS: VENLAFAXINE ER 75 MG CAPSULE PO SCH (08:05)
[2022-01-30] MEDS: TOLTERODINE LA 2 MG CAPSULE PO SCH (08:06)
[2022-01-30] MEDS: ACETAMINOPHEN 325 MG TABLET PO PRN ×3 (08:09→16:09)
[2022-01-30] MEDS: INSULIN GLARGINE 300 UNIT/3 ML PEN SUBQ SCH (08:11)
[2022-01-30] MEDS: SODIUM CHLORIDE FLUSH 0.9% 10 ML SYRINGE IVP SCH ×2 (08:12→16:51)
[2022-01-30] MEDS: Mirabegron [Myrbetriq] 50 MG Tab.Er.24h PO SCH (20:54)
[2022-01-30] MEDS: ATORVASTATIN 10 MG TABLET PO SCH (20:54)
[2022-01-30] MEDS: PRAZOSIN 1 MG CAPSULE PO SCH (20:54)
[2022-01-30] MEDS ORDERED: INSULIN GLARGINE 300 UNIT/3 ML PEN SUBQ SCH (21:00)
[2022-01-30] MEDS: traZODone 50 MG TABLET PO SCH (21:00)
[2022-01-31] MEDS: SODIUM CHLORIDE FLUSH 0.9% 10 ML SYRINGE IVP SCH ×2 (00:03→08:02)
[2022-01-31] MEDS: methocarbamoL 500 MG TABLET PO PRN ×2 (00:08→08:59)
[2022-01-31] MEDS: IBUPROFEN 400 MG TABLET PO PRN ×2 (00:09→08:59)
[2022-01-31] MEDS: METOCLOPRAMIDE 10 MG TABLET PO SCH ×2 (06:25→11:22)
[2022-01-31] MEDS: BUTALB/ACETAM/CAFF 50/325/40MG TABLET PO PRN ×2 (06:25→10:12)
[2022-01-31] MEDS: PANTOPRAZOLE 40 MG TABLET PO SCH (06:25)
[2022-01-31 06:31] LABS: BASOPHILS # (AUTO) 0.1 10^3/uL (0.0-0.1); BASOPHILS % (AUTO) 0.9 %; EOSINOPHILS # (AUTO) 0.6 10^3/uL (0.0-0.7); EOSINOPHILS % (AUTO) 10.9 %; HCT - HEMATOCRIT 33.3 % (37.0-47.0); LYMPHOCYTES # (AUTO) 1.4 10^3/uL (1.5-3.5); LYMPHOCYTES % (AUTO) 25.8 %; MEAN CORPUSCULAR HEMOGLOBIN 24.4 pg (27.0-31.0); MEAN CORPUSCULAR VOLUME 81.2 fL (81.0-99.0); MEAN PLATELET VOLUME 9.3 fL (7.9-10.8); MONOCYTES # (AUTO) 0.5 10^3/uL (0.0-1.0); NEUTROPHILS # (AUTO) 2.8 10^3/uL (1.5-6.6); NEUTROPHILS % (AUTO) 51.5 %; PLT - PLATELET COUNT 422 10^3/uL (130-450); RED CELL DISTRIBUTION WIDTH 21.2 % (12.0-15.0); WHITE BLOOD COUNT 5.4 x10^3/uL (4.8-10.8)
[2022-01-31 06:34] LABS: SLIDE REVIEW? Indicated
[2022-01-31 06:40] LABS: CALCIUM 8.6 mg/dL (8.5-10.3); CREATININE 0.7 mg/dL (0.4-1.0)
[2022-01-31 07:26] VITALS: BP 124/69
[2022-01-31] MEDS: ACETAMINOPHEN 325 MG TABLET PO PRN (07:42)
[2022-01-31] MEDS: LEVOTHYROXINE 125 MCG TABLET PO SCH (07:43)
[2022-01-31] MEDS: INSULIN ASPART 300 UNIT/3 ML PEN SUBQ SCH ×4 (07:47→11:47)
[2022-01-31] MEDS: INSULIN GLARGINE 300 UNIT/3 ML PEN SUBQ SCH (07:48)
[2022-01-31 07:58] LABS: PLATELET ESTIMATE, MANUAL NORMAL (130-450,000) (NORMAL); PLATELET MORPHOLOGY NORMAL APPEARANCE (NORMAL)
[2022-01-31] MEDS: DULoxetine 30 MG CAPSULE PO SCH (08:02)
[2022-01-31] MEDS: VENLAFAXINE ER 75 MG CAPSULE PO SCH (08:02)
[2022-01-31] MEDS: TOLTERODINE LA 2 MG CAPSULE PO SCH (08:02)
[2022-01-31] MEDS: FERROUS SULFATE 325 MG TABLET PO SCH (08:02)
--- NOTE | 2022-01-31 09:20 | DISCHARGE SUMMARY ---
Discharge Summary Admit Date: 01/24/22 Discharge Date: 01/31/22 Discharging Provider: Alden Van Primary Care Provider: Isatu Belle Code Status: Do Not Attempt Resuscitation Condition at Discharge: Fair Discharge Disposition: 01 Home, Self Care - DIAGNOSES Admission Diagnoses: Hypoglycemia associated with diabetes Iron deficiency anemia Hypothyroidism Depression Discharge Diagnoses with Status of Each Condition: Uncontrolled type 1 diabetes mellitus with hyperglycemia: Chronic. Patient prescribed Lantus 6 units subcu twice daily, regular insulin 5 units 3 times daily with meals and sliding scale. Hypoglycemia associated with diabetes: Resolved Iron deficiency anemia: Continue iron supplement Hypothyroidism: Chronic Continue Synthroid Depression: Chronic. Continue duloxetine and venlafaxine Medical noncompliance - HPI History of Present Illness: Per HPI: This is a 46-year-old female with a past medical history significant for type 1 diabetes mellitus, hypothyroidism, depression who presents today due to low blood glucose. She states she woke up this morning and her blood glucose was greater than 500. She then proceeded to take 15 units of Novolin. She did not have breakfast but did have lunch at around noon when she had a ham and cheese sandwich. She checked her blood glucose in the bedtime was in the 200s so she did another 2 units of Novolin. She then had a beef and cheddar sandwich as well as mozzarella sticks and root beer from [employer] at around 4 PM. Her blood sugar that time was around 140 and so she took another 2 units of Novolin. A few hours later she became diaphoretic and confused and she checked her blood glucose and it was in the 30s. She drank a protein shake and rechecked her blood glucose but still been in the 30s so her son called EMS. The patient states that she normally gets hypoglycemic 1-2 times a week but it is as low as the 50s and she is not usually symptomatic. It is almost always found incidentally. She is not on any long-acting insulin and is currently on a sliding scale with Novolin. She states is not unusual for her blood glucose to be quite elevated in the morning but usually not as high as 500. She often takes most of her insulin in the morning and then takes 2 to 3 units with lunch and dinner based off of how much she eats. She sees an automotive generator repairer in [place] once every 3 months and she reports seeing them last month. She follows up with a dietitian. She is certain she do not take the wrong dose of insulin and that she only took 2 units with lunch and her dinner. EMS administered an amp of dextrose and upon arrival to the emergency department, her blood glucose was stable at nearly 200. She was observed for a few hours in the emergency department but her blood glucose decreased again to the 30s and so she was given an amp of D50 started on D10 infusion. Medicine was then consulted for admission. I discussed goals of care with the patient and she would like to be a DNR. - HOSPITAL COURSE Hospital Course: Patient was admitted on 01/24/22 with low blood sugar. She is a very brittle type I diabetic. She reports waking up on the morning of admission with a blood glucose of 500 She was admitted and started on D5 infusion. Over the past 4 days prior to discharge patient's blood glucose had mainly fluctuated between 300 and 500. On the day before discharge she was on Lantus 5 units in the morning and 10 units in the evening, 5 units of regular insulin 3 times daily with meals and sliding scale. With this insulin regimen her blood glucose was 71 at 1:30 AM on the day of discharge and 219 at 630 with morning lab checks. It has been proposed that patient will go home with Lantus 6 units bid Regular insulin 5 units 3 times daily with meals and sliding scale. It has been recommended that she follow-up with her automotive generator repairer as she would benefit/have better management of her blood glucose if her insulin pump was resumed. The patient expressed understanding of this plan/instructions but indicates that she has no intentions of using the Lantus. Furthermore that she would use the short acting insulin based on a scale in her mind. She had cognitive eval done on which she scored 25 out of 30 points It has been recommended that she be placed in a nursing facility where her medications can be managed. However she declined this recommendation and opted to go home where she lives with her son. Consequently she is being discharged home with home health. - ALLERGIES Allergies/Adverse Reactions: Allergies Allergy/AdvReac Type Severity Reaction Status Date / Time carisoprodol [From Soma] Allergy Unknown Verified 11/18/21 05:03 divalproex sodium Allergy Rash Verified 11/18/21 05:03 [From Depakote] gabapentin [From Neurontin] Allergy Edema Verified 11/18/21 05:03 lidocaine Allergy Unknown Verified 11/18/21 05:03 nitrofurantoin Allergy Rash Verified 11/18/21 05:03 macrocrystalline * [From Macrodantin] nortriptyline Allergy Unknown Verified 11/18/21 05:03 ondansetron [From Zofran] Allergy Hives Verified 11/18/21 05:03 ondansetron HCl * Allergy Hives Verified 11/18/21 05:03 [From Zofran (as hydrochloride)] pregabalin [From Lyrica] Allergy Headache Verified 11/18/21 05:03 - MEDICATIONS Home Medications: Ambulatory Orders Medication Instructions Recorded Confirmed Prazosin HCl 5 mg PO QPM 01/23/19 01/25/22 Trazodone HCl 300 mg PO QPM 01/23/19 01/25/22 Duloxetine HCl [Cymbalta] 60 mg PO BID 09/15/19 01/25/22 Butalb/Acetaminophen/Caffeine 1 cap PO Q4H PRN 11/06/20 01/25/22 [Fioricet 50-300-40 mg Capsule] Eszopiclone [Lunesta] 3 mg PO QPM PRN 11/06/20 01/25/22 Glucagon,Human Recombinant 1 mg IJ PRN PRN 11/06/20 01/25/22 [Glucagon Emergency Kit] Mirabegron [Myrbetriq] 50 mg PO QPM 11/06/20 01/25/22 Pantoprazole Sodium [Protonix] 20 mg PO QDAC 11/06/20 01/25/22 Promethazine [Phenergan] 25 mg PO Q6HR PRN #14 tablet 11/06/20 01/25/22 Simvastatin [Zocor] 20 mg PO QPM 11/06/20 01/25/22 Spironolactone [Aldactone] 100 mg PO DAILY 11/06/20 01/25/22 methocarbamoL [Robaxin-750] 750 mg PO Q6H PRN 11/06/20 01/25/22 Levothyroxine [Synthroid] 125 mcg PO DAILY 02/21/21 01/25/22 Ibuprofen [Motrin] 800 mg PO Q8H PRN #10 tablet 03/14/21 01/25/22 Venlafaxine ER [Effexor ER] 75 mg PO DAILY 09/19/21 01/25/22 Insulin Regular, Human [Novolin R 0 - 15 unit SQ TIDWM 01/25/22 01/25/22 Flexpen] Metoclopramide [Reglan] 10 mg PO ACHS 01/25/22 01/25/22 Tolterodine Tartrate [Detrol LA] 2 mg PO DAILY 01/25/22 01/25/22 Insulin Glargine [Lantus Solostar] 6 unit SUBQ BID #1 pe 01/31/22 - PHYSICAL EXAM AT DISCHARGE General Appearance: positive: No acute distress, Alert Eyes Bilateral: positive: PERRL, EOMI ENT: positive: No signs of dehydration Neck: positive: No JVD, Trachea midline Respiratory: positive: Chest non-tender, No respiratory distress, Breath sounds nml. negative: Wheezes, Rales, Rhonchi Cardiovascular: positive: Regular rate & rhythm, No murmur Abdomen: positive: Non-tender, No organomegaly, Nml bowel sounds, No distention. negative: Guarding, Rebound Back: positive: Nml inspection Skin: positive: Color nml, No rash, Warm, Dry Extremities: positive: Non-tender, Full ROM, Nml appearance, No pedal edema Neurologic/Psychiatric: positive: Oriented x3, Mood/affect nml - LABS Result Diagrams: 01/31/22 06:21 01/31/22 06:21
--- NOTE | 2022-01-31 09:20 | Discharge Plan ---
Discharge Plan Problem Reviewed?: Yes Disposition: Home, Self Care Condition: Stable Prescriptions: Insulin Glargine [Lantus Solostar] 6 unit SUBQ BID #1 pe Diet: Diabetic Instruction Topics: Gastric Ulcer Health Concerns: Patient was admitted on 01/24/22 with low blood sugar. She is a very brittle type I diabetic. She reports waking up the morning of admission with a blood glucose of 500 He was admitted and started on D5 infusion. Over the past 5 days prior to discharge patient's blood glucose had mainly fluctuated between 305 100. On the day before discharge she was on Lantus 5 units in the morning and 10 units in the evening. Then 5 units of regular insulin 3 times daily with meals and sliding scale. With this insulin regimen her blood glucose was 71 at 1:30 AM on the day of discharge and 219 at 630 with morning lab checks. It has been proposed that patient will go home with Lantus 6 units bid Regular insulin 5 units 3 times daily with meals and sliding scale. It has been recommended that she follow-up with her underwear welter as she would benefit/have better management of her blood glucose if her insulin pump was resumed. The patient expressed understanding of this plan/instructions but indicates that she has no intentions of using the Lantus. Furthermore that she would use the short acting insulin based on a scale in her mind. It has been recommended that she be placed in a nursing facility where her medications can be managed. However she declined this recommendation and opted to go home where she lives with her son. Consequently she is being discharged home with home health. No Smoking: If you smoke, Please STOP! Call for help. Follow-up with: Isatu Belle MD [Primary Care Provider] -
[2022-02-01] MEDS ORDERED: LEVOTHYROXINE 125 MCG TABLET PO SCH (07:00)
== END 2022-01-31 13:45 | disposition home health service (06) | DRG 639 ==
LOC: EDUNIT# → ED 19:42 → MS2 22:01 → OBSVTOIN 01-26 14:27
PROVIDERS: ADMIT Internal Medicine; ATTEND Internal Medicine
DX: E10.649 Type 1 diabetes mellitus with hypoglycemia without coma (principal); E10.42 Type 1 diabetes mellitus with diabetic polyneuropathy; E10.65 Type 1 diabetes mellitus with hyperglycemia; D50.9 Iron deficiency anemia, unspecified; D75.839 Thrombocytosis, unspecified; E03.9 Hypothyroidism, unspecified; E66.9 Obesity, unspecified; E78.00 Pure hypercholesterolemia, unspecified; H54.7 Unspecified visual loss; Z20.822 Contact with and (suspected) exposure to COVID-19; Z32.02 Encounter for pregnancy test, result negative; F17.290 Nicotine dependence, other tobacco product, uncomplicated; F32.A Depression, unspecified; G40.909 Epilepsy, unspecified, not intractable, without status epilepticus; G89.29 Other chronic pain; M19.90 Unspecified osteoarthritis, unspecified site; M54.9 Dorsalgia, unspecified; M79.7 Fibromyalgia; K21.9 Gastro-esophageal reflux disease without esophagitis; J32.9 Chronic sinusitis, unspecified; R33.9 Retention of urine, unspecified; Z66 Do not resuscitate; Z68.30 Body mass index [BMI] 30.0-30.9, adult; Z79.4 Long term (current) use of insulin; Z79.890 Hormone replacement therapy; Z79.899 Other long term (current) drug therapy; Z88.6 Allergy status to analgesic agent; Z88.8 Allergy status to other drugs, medicaments and biological substances; Z91.19 Patient's noncompliance with other medical treatment and regimen
CPT/HCPCS: 36415; 51701; 80048; 80053; 81003; 81025; 82728; 82947; 83036; 83540; 83690; 84443; 84466; 85025; 87635; 92507; 92523; 96361; 96365; 96366; 96367; 96375; 96376; 99284; 99285; A9270; J1750; J1815; 81001; 87086

== ENCOUNTER 2022-02-02 19:22 | Outpatient (CLI) | payer MEDICARE, MEDICAID | END 2022-02-02 19:23 | disposition critical access hospital (66) | LOC: EMS 19:22 | DX: E11.649 Type 2 diabetes mellitus with hypoglycemia without coma (principal); R41.0 Disorientation, unspecified; R40.0 Somnolence; Z79.4 Long term (current) use of insulin | CPT/HCPCS: A0425; A0427 ==

== ENCOUNTER 2022-02-02 19:45 | Emergency (ER) | payer MEDICARE, MEDICAID ==
[2022-02-02] MEDS ORDERED: BUTALB/ACETAM/CAFF 50/325/40MG TABLET PO STA (21:56)
[2022-02-02 22:37] LABS: BILIRUBIN,URINE NEGATIVE (NEGATIVE); GLUCOSE, URINE (UA) 100 mg/dL (NEGATIVE); KETONES,URINE (UA) NEGATIVE (NEGATIVE); LEUKOCYTE ESTERASE, URINE NEGATIVE (NEGATIVE); NITRITE,URINE NEGATIVE (NEGATIVE); OCCULT BLOOD,URINE NEGATIVE (NEGATIVE); PROTEIN,URINE NEGATIVE (NEGATIVE); UROBILINOGEN,URINE 0.2 (NORMAL) E.U./dL (NORMAL)
[2022-02-02 22:38] LABS: CLARITY,URINE CLEAR (CLEAR); HCG UR QUAL NEGATIVE
--- NOTE | 2022-02-02 23:33 | ED Physician Documentation ---
History of Present Illness - Stated complaint Stated Complaint: HYPOGLYCEMIA - Chief complaint Chief Complaint: General - Additonal information Additional information: Patient is a brittle diabetic with a recent admission for refractory hypog lycemia. She was recently started on long-acting insulin, Lantus 60 units twice daily.She is additionally taking short acting insulin at 5 units 3 times daily.She reports taking 6 units of Lantus around 2 PM because this was her first meal of the day. She then used 5 units of her short acting insulin at 4 PM Because her blood sugar was 161. This evening she was noted to be confused and EMS was activated. Initial blood sugar was 24 which improved to 31 with orange juice. An IV was established and she was giving 25 g of D50 and her blood sugar was 331.She currently complains of a migraine headache and states she has a history of headaches. She denies that her current headache is different than previous headaches.She has not followed up with her chronic specialist since recent discharge.Denies recent illness. Denies chest pain, difficulty breathing, abdominal pain, vomiting, dysuria. Review of Systems Constitutional: denies: Fever Nose: denies: Congestion Throat: denies: Sore throat Cardiac: denies: Chest pain / pressure, Palpitations Respiratory: denies: Dyspnea, Cough GI: denies: Abdominal Pain, Nausea, Vomiting : denies: Dysuria, Hematuria Skin: denies: Rash Neurologic: reports: Headache. 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: Other : Kidney stones HEENT: Chronic vision loss, Chronic sinusitis Psych: Depression, Anxiety Musculoskeletal: Osteoarthritis, Fibromyalgia, Fatigue, Chronic back pain Derm: None - Past Surgical History Past Surgical History: Yes General: Gastric surgery Ortho: 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 [employer]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, Endometrial ablation, Tubal ligation HEENT: Tonsil/Adenoidectomy - Present Medications Home Medications: Ambulatory Orders Medication Instructions Recorded Confirmed Prazosin HCl 5 mg PO QPM 01/23/19 01/25/22 Trazodone HCl 300 mg PO QPM 01/23/19 01/25/22 Duloxetine HCl [Cymbalta] 60 mg PO BID 09/15/19 01/25/22 Butalb/Acetaminophen/Caffeine 1 cap PO Q4H PRN 11/06/20 01/25/22 [Fioricet 50-300-40 mg Capsule] Eszopiclone [Lunesta] 3 mg PO QPM PRN 11/06/20 01/25/22 Glucagon,Human Recombinant 1 mg IJ PRN PRN 11/06/20 01/25/22 [Glucagon Emergency Kit] Mirabegron [Myrbetriq] 50 mg PO QPM 11/06/20 01/25/22 Pantoprazole Sodium [Protonix] 20 mg PO QDAC 11/06/20 01/25/22 Promethazine [Phenergan] 25 mg PO Q6HR PRN #14 tablet 11/06/20 01/25/22 Simvastatin [Zocor] 20 mg PO QPM 11/06/20 01/25/22 Spironolactone [Aldactone] 100 mg PO DAILY 11/06/20 01/25/22 methocarbamoL [Robaxin-750] 750 mg PO Q6H PRN 11/06/20 01/25/22 Levothyroxine [Synthroid] 125 mcg PO DAILY 02/21/21 01/25/22 Ibuprofen [Motrin] 800 mg PO Q8H PRN #10 tablet 03/14/21 01/25/22 Venlafaxine ER [Effexor ER] 75 mg PO DAILY 09/19/21 01/25/22 Insulin Regular, Human [Novolin R 0 - 15 unit SQ TIDWM 01/25/22 01/25/22 Flexpen] Metoclopramide [Reglan] 10 mg PO ACHS 01/25/22 01/25/22 Tolterodine Tartrate [Detrol LA] 2 mg PO DAILY 01/25/22 01/25/22 Insulin Glargine [Lantus Solostar] 6 unit SUBQ BID #1 pe 01/31/22 - Allergies Allergies/Adverse Reactions: Allergies Allergy/AdvReac Type Severity Reaction Status Date / Time carisoprodol [From Soma] Allergy Unknown Verified 11/18/21 05:03 divalproex sodium Allergy Rash Verified 11/18/21 05:03 [From Depakote] gabapentin [From Neurontin] Allergy Edema Verified 11/18/21 05:03 lidocaine Allergy Unknown Verified 11/18/21 05:03 nitrofurantoin Allergy Rash Verified 11/18/21 05:03 macrocrystalline * [From Macrodantin] nortriptyline Allergy Unknown Verified 11/18/21 05:03 ondansetron [From Zofran] Allergy Hives Verified 11/18/21 05:03 ondansetron HCl * Allergy Hives Verified 11/18/21 05:03 [From Zofran (as hydrochloride)] pregabalin [From Lyrica] Allergy Headache Verified 11/18/21 05:03 - Social History Does the pt smoke?: Yes Smoking Status: Current every day smoker Does the pt drink ETOH?: No Does the pt have substance abuse?: No - Immunizations Immunizations are current?: Yes Immunizations: TDAP >10years/unknown - POLST Patient has POLST: No POLST Status: DNR PD ED PE NORMAL - General General: Alert and oriented X 3, No acute distress, Well developed/nourished - HEENT HEENT: Atraumatic, PERRL, EOMI, Moist mucous membranes, Pharynx benign - Neck Neck: Supple, no meningeal sign - Cardiac Cardiac: RRR, No murmur, Strong equal pulses - Respiratory Respiratory: No respiratory distress, Clear bilaterally - Abdomen Abdomen: Normal bowel sounds, Non tender, Non distended - Back Back: No CVA TTP - Derm Derm: Normal color, Warm and dry - Extremities Extremities: No deformity, No edema - Neuro Neuro: Alert and oriented X 3, 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, No motor deficit, No sensory deficit, Normal speech - Psych Psych: Normal mood, Normal affect Results - Vitals Vitals: Vital Signs - 24 hr 02/02/22 02/02/22 02/02/22 19:51 21:33 23:03 Temperature 36.6 C 36.6 C Heart Rate 97 86 104 H Respiratory 16 20 20 Rate Blood Pressure 132/81 H 127/99 H 84/63 L O2 Saturation 97 99 100 02/03/22 00:00 Temperature 36.6 C Heart Rate 98 Respiratory 20 Rate Blood Pressure 99/53 L O2 Saturation 100 Oxygen O2 Source Room air - Labs Labs: Laboratory Tests 02/02/22 22:32 Urine Color YELLOW Urine Clarity CLEAR Urine pH 6.0 Ur Specific [place] 1.025 Urine Protein NEGATIVE Urine Glucose (UA) 100 H Urine Ketones NEGATIVE Urine Occult Blood NEGATIVE Urine Nitrite NEGATIVE Urine Bilirubin NEGATIVE Urine Urobilinogen 0.2 (NORMAL) Ur Leukocyte Esterase NEGATIVE Ur Microscopic Review NOT INDICATED Urine Culture Comments NOT INDICATED Urine HCG, Qual NEGATIVE PD MEDICAL DECISION MAKING - ED course ED course: Patient presenting for evaluation after hypoglycemic episode. She is not on any Oral diabetic medications. She was recently started on long-acting insulin. She has multiple visits for with similar presentations.It did not appear to be taking her medications as prescribed as she took Lantus in the middle of the day and had not eaten this morning.She was able to tolerate meals in the emergency department. She did not require furtherDoses of IV dextrose to increase her blood sugar. She is remained asymptomatic in the emergency department. I do not think her symptoms are due to an infection or ACS or stroke.Patient was counseled on When she should be taking her insulin.She was also encouraged to continue eating small frequent meals throughout the day. She was also advised that she needs close follow-up with her primary care doctor or chronic specialist for continued management of her diabetes. Departure - Departure Disposition: 01 Home, Self Care Clinical Impression: Hypoglycemia Condition: Stable Instructions: ED Diabetes Hypoglycemia Insulin React Comments: Please take the LantusWhich is your long-acting insulin in the morning and in the evening. Do not take it in the middle of the day Or when you are using your short acting insulin. You also need to eat 3 proper meals every day.
[2022-02-03 00:01] VITALS: BP 99/53
== END 2022-02-03 00:23 | disposition home or self-care (01) ==
LOC: ED 19:45
DX: E10.649 Type 1 diabetes mellitus with hypoglycemia without coma (principal); E10.42 Type 1 diabetes mellitus with diabetic polyneuropathy; Z79.4 Long term (current) use of insulin; F17.200 Nicotine dependence, unspecified, uncomplicated; Z66 Do not resuscitate
CPT/HCPCS: 81003; 81025; 99284; A9270; 80053; 81001; 83690; 83735; 85025; 87086

== ENCOUNTER 2022-02-05 08:00 | Outpatient (CLI) | payer MEDICARE, MEDICAID ==
[2022-02-05 21:05] LABS: BILIRUBIN,URINE NEGATIVE (NEGATIVE); CLARITY,URINE CLEAR (CLEAR); GLUCOSE, URINE (UA) 500 mg/dL (NEGATIVE); KETONES,URINE (UA) TRACE mg/dL (NEGATIVE); LEUKOCYTE ESTERASE, URINE NEGATIVE (NEGATIVE); NITRITE,URINE NEGATIVE (NEGATIVE); OCCULT BLOOD,URINE NEGATIVE (NEGATIVE); PROTEIN,URINE NEGATIVE (NEGATIVE); UROBILINOGEN,URINE 0.2 (NORMAL) E.U./dL (NORMAL)
[2022-02-05 21:11] LABS: BACTERIA,URINE None Seen /HPF (None Seen); RBC,URINE None Seen /HPF (0-5); SQUAMOUS EPITHELIAL CELL,UR RARE Squamous (<= Few); WBC,URINE 0-3 /HPF (0-5)
== END 2022-02-05 23:59 ==
LOC: LAB.N 08:00
PROVIDERS: ATTEND Internal Medicine
DX: R30.0 Dysuria (principal)
CPT/HCPCS: 81001; 87086

== ENCOUNTER 2022-02-12 10:15 | Outpatient (CLI) | payer MEDICARE, MEDICAID | END 2022-02-12 10:16 | disposition critical access hospital (66) | LOC: EMS 10:15 | DX: R07.9 Chest pain, unspecified (principal); R20.0 Anesthesia of skin; R26.2 Difficulty in walking, not elsewhere classified; R10.814 Left lower quadrant abdominal tenderness; R19.34 Left lower quadrant abdominal rigidity | CPT/HCPCS: A0425; A0427 ==

== ENCOUNTER 2022-03-10 12:07 | Emergency (ER) | payer MEDICARE, MEDICAID ==
[2022-03-10 12:27] VITALS: BP 115/83
--- OUTSIDE RECORDS SUMMARY | 2022-03-10 12:40 | EXTERNAL MEDICAL SUMMARY RPT | Continuity of Care Document ---
:1975 Author Organization [facility] Address [address] [place] [address] Phone Allergies No information. Encounters No information. Medications No information. Problems date description facility [id number] Unspecified osteoarthritis, unspecified [facility] site [id number] Unspecified convulsions [facility] [id number] Type 1 diabetes mellitus with diabetic [facility] polyneuropathy [id number] Post-traumatic stress disorder, [facility] unspecified 20220203 Other chronic pain [facility] 20220203 Nicotine dependence, unspecified, [facility] uncomplicated 20220203 Migraine, unspecified, not intractable, [facility] without status migrainosus 20220203 long-term (current) use of [facility] anticoagulants [id number] Hypothyroidism, unspecified [facility] [id number] History of falling [facility] [id number] Gastro-esophageal reflux disease [facility] without esophagitis [id number] Fibromyalgia [facility] [id number] Dorsalgia, unspecified [facility] [id number] Displaced trimalleolar fracture of right [facility] lower leg, initial encounter for open fracture type I or II [id number] Chronic obstructive pulmonary disease, [facility] unspecified [id number] Calculus of kidney [facility] [id number] Bipolar disorder, unspecified [facility] [id number] Bariatric surgery status [facility] [id number] Attention-deficit hyperactivity [facility] disorder, unspecified type Results No information.
--- NOTE | 2022-03-10 12:56 | ED Physician Documentation ---
PD HPI LOWER EXT INJURY - Stated complaint Stated Complaint: L ANKLE INJ/FALL - Chief complaint Chief Complaint: Trauma Ext - History obtained from History obtained from: Patient, Family (daughter says the patient has had generally worsening leg strength and needs lifting assistance to get out of chair. SHe says the patient's ankle twisted when it did not plant correctly as they lifted her from chair last evening. They have home aides during day. Looking at care facility care home.) - History of Present Illness PD HPI LOW EXT INJURY LOCATION: Left, Ankle Type of injury: Twist (was being helped up from her wheelchair and ankle bent under/inversion due to weakness. Pain in left ankle. Bruising today.) Where injury occurred: Home Timing - onset: Last night Timing - details: Abrupt onset, Still present Worsened by: Moving, Palpating Associated symptoms: Swelling, Discolored (bruising laterally). No: Weakness, Numbness Contributing factors: No: Prior ortho surgery Similar symptoms before: Has not had sx before Review of Systems Skin: denies: Abrasion (s), Laceration (s) Musculoskeletal: reports: Back pain (chronic) Neurologic: reports: Generalized weakness (more in legs, but arms as well, making difficult getting around even with walker at home. Needs assistance getting up and transferring.), Numbness (in legs/feet due to diabetic neuropathy). 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 : Kidney stones HEENT: Chronic vision loss, Chronic sinusitis Psych: Depression, Anxiety Musculoskeletal: Osteoarthritis, Fibromyalgia, Fatigue, Chronic back pain Derm: None - Past Surgical History Past Surgical History: Yes General: Gastric surgery 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: 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, Endometrial ablation, Tubal ligation HEENT: Tonsil/Adenoidectomy - Present Medications Home Medications: Ambulatory Orders Medication Instructions Recorded Confirmed Prazosin HCl 5 mg PO QPM 01/23/19 03/10/22 Trazodone HCl 300 mg PO QPM 01/23/19 03/10/22 Duloxetine HCl [Cymbalta] 60 mg PO BID 09/15/19 03/10/22 Eszopiclone [Lunesta] 3 mg PO QPM PRN 11/06/20 03/10/22 Glucagon,Human Recombinant 1 mg INJ PRN PRN 11/06/20 03/10/22 [Glucagon Emergency Kit] Mirabegron [Myrbetriq] 50 mg PO QPM 11/06/20 03/10/22 Pantoprazole Sodium [Protonix] 20 mg PO QDAC 11/06/20 03/10/22 Promethazine [Phenergan] 25 mg PO Q6HR PRN #14 tablet 11/06/20 03/10/22 Simvastatin [Zocor] 20 mg PO QPM 11/06/20 03/10/22 Spironolactone [Aldactone] 100 mg PO DAILY 11/06/20 03/10/22 methocarbamoL [Robaxin-750] 750 mg PO Q6H PRN 11/06/20 03/10/22 Levothyroxine [Synthroid] 125 mcg PO DAILY 02/21/21 03/10/22 Ibuprofen [Motrin] 800 mg PO Q8H PRN #10 tablet 03/14/21 03/10/22 Insulin Regular, Human [Novolin R 0 - 15 unit SQ TIDWM 01/25/22 03/10/22 Flexpen] Metoclopramide [Reglan] 10 mg PO ACHS 01/25/22 03/10/22 Tolterodine Tartrate [Detrol LA] 2 mg PO DAILY 01/25/22 03/10/22 Aspirin Chewable [St Jus 81 mg PO DAILY #30 tablet 02/17/22 03/10/22 Aspirin] Butalb/Acetaminophen/Caffeine 1 cap PO Q4H PRN #20 cap 02/17/22 03/10/22 [Fioricet 50-300-40 mg Capsule] Pregabalin [Lyrica] 50 mg PO TID #120 cap 02/17/22 03/10/22 Insulin Glargine [Lantus Solostar] 12 unit SUBQ DAILY 03/10/22 03/10/22 - Allergies Allergies/Adverse Reactions: Allergies Allergy/AdvReac Type Severity Reaction Status Date / Time carisoprodol [From Soma] Allergy Unknown Verified 03/10/22 12:23 divalproex sodium Allergy Rash Verified 03/10/22 12:23 [From Depakote] gabapentin [From Neurontin] Allergy Edema Verified 03/10/22 12:23 lidocaine Allergy Unknown Verified 03/10/22 12:23 nitrofurantoin Allergy Rash Verified 03/10/22 12:23 macrocrystalline * [From Macrodantin] nortriptyline Allergy Unknown Verified 03/10/22 12:23 ondansetron [From Zofran] Allergy Hives Verified 03/10/22 12:23 ondansetron HCl * Allergy Hives Verified 03/10/22 12:23 [From Zofran (as hydrochloride)] pregabalin [From Lyrica] Allergy Headache Verified 03/10/22 12:23 - Social History Does the pt smoke?: No Smoking Status: Never smoker Does the pt drink ETOH?: No Does the pt have substance abuse?: No - Immunizations Immunizations are current?: No Immunizations: Other immun not current - POLST Patient has POLST: No POLST Status: DNR PD ED PE NORMAL - Vitals Vital signs reviewed: Yes - General General: Alert and oriented X 3, No acute distress, Well developed/nourished - Derm Derm: Normal color, Warm and dry - Neuro Neuro: Alert and oriented X 3, Normal speech, Other (left medial ankle and proximal foot with bruising and swelling. No gross deformity. Achilles firm and intact. Tender laterally inframallleolar. Medially not tender. No gross laxity of ankle on stress testing. Normal cap refill in toes. Decreased sensation both feet. ) Results - Vitals Vitals: Vital Signs - 24 hr 03/10/22 12:23 Temperature 36.3 C L Heart Rate 117 H Respiratory 18 Rate Blood Pressure 115/83 H O2 Saturation 96 Oxygen O2 Source Room air - Rads (name of study) leftt ankle Radiology: Prelim report reviewed, See rad report PD MEDICAL DECISION MAKING - ED course Complexity details: reviewed results, re-evaluated patient (has bruising to suggest torn ligaments/versus direct impact. Can treat with walking boot. NO fractures on xray. Daughter states pateint not able to walk on own for month or two. Have home aides. Looking toward SNF/assisted living near future. ), considered differential (sprain versus fracture. ), d/w patient, d/w family (daughter) Departure - Departure Disposition: 01 Home, Self Care Clinical Impression: Left ankle sprain Qualifiers: Encounter type: initial encounter Involved ligament of ankle: unspecified ligament Qualified Code(s): S93.402A - Sprain of unspecified ligament of left ankle, initial encounter Condition: Stable Record reviewed to determine appropriate education?: Yes Instructions: ED Sprain Ankle W X Ray Follow-Up: Isatu Belle MD [Primary Care Provider] - Comments: No fracture seen on your x-ray. However given the swelling and bruising, you no doubt have some tearing of the ligaments of the ankle. This would be treated with a walking cast boot to support the ligaments. Elevate rest and ice it often to reduce swelling. Use the ankle splint for the next 2 to 3 weeks. Continue usual medications. Discharge Date/Time: 03/10/22 14:17
--- NOTE | 2022-03-10 13:27 | XRAY Report ---
PROCEDURE: Ankle 3 View LT INDICATIONS: Trauma TECHNIQUE: 3 views of the ankle were acquired. COMPARISON: None FINDINGS: Bones: No fractures or dislocations. Ankle mortise is normally aligned. No suspicious bony lesions . Soft tissues: No tibiotalar joint effusion. Achilles tendon appears normal. Generalized soft tissu e swelling noted IMPRESSION: Soft tissue swelling without fracture or foreign body Reviewed by: Slava Fragoso MD on 03/10/2022 12:26 PM [facility] Approved by: Slava Fragoso MD on 03/10/2022 12:26 PM AKDT Station ID: [id number]
[2022-03-10] MEDS ORDERED: HYDROcod/ACETAM 5/325 MG TABLET PO STA (13:28)
== END 2022-03-10 14:17 | disposition home or self-care (01) ==
LOC: ED 12:07
DX: S93.402A Sprain of unspecified ligament of left ankle, initial encounter (principal); X50.1XXA Overexertion from prolonged static or awkward postures, initial encounter; E10.9 Type 1 diabetes mellitus without complications; Z79.4 Long term (current) use of insulin; Z66 Do not resuscitate
CPT/HCPCS: 73610; 99282; 99283; A9270

== ENCOUNTER 2022-08-09 16:16 | Outpatient (CLI) | payer MEDICARE, MEDICAID | END 2022-08-09 16:17 | disposition critical access hospital (66) | LOC: EMS 16:16 | DX: L89.159 Pressure ulcer of sacral region, unspecified stage (principal); R32 Unspecified urinary incontinence; R35.0 Frequency of micturition; R30.0 Dysuria; M54.50 Low back pain, unspecified; R53.1 Weakness; G82.20 Paraplegia, unspecified | CPT/HCPCS: A0425; A0429 ==

== ENCOUNTER 2022-08-09 16:33 | Emergency (ER) | payer MEDICARE, MEDICAID ==
[2022-08-09] MEDS ORDERED: SODIUM CHLORIDE 0.9% 1,000 ML IV STA (16:50)
[2022-08-09 17:01] LABS: BASOPHILS % (AUTO) 0.4 %; EOSINOPHILS # (AUTO) 0.1 10^3/uL (0.0-0.7); EOSINOPHILS % (AUTO) 0.8 %; HCT - HEMATOCRIT 44.9 % (37.0-47.0); HGB - HEMOGLOBIN 15.6 g/dL (12.0-16.0); LYMPHOCYTES # (AUTO) 0.7 10^3/uL (1.5-3.5); LYMPHOCYTES % (AUTO) 10.2 %; MEAN CORPUSCULAR HGB CONC 34.7 g/dL (32.0-36.0); MONOCYTES # (AUTO) 0.8 10^3/uL (0.0-1.0); MONOCYTES % (AUTO) 10.9 %; NEUTROPHILS # (AUTO) 5.6 10^3/uL (1.5-6.6); NEUTROPHILS % (AUTO) 77.2 %; PLT - PLATELET COUNT 302 10^3/uL (130-450); RED BLOOD COUNT 4.88 10^6/uL (4.20-5.40); RED CELL DISTRIBUTION WIDTH 12.4 % (12.0-15.0); WHITE BLOOD COUNT 7.3 x10^3/uL (4.8-10.8)
[2022-08-09 17:13] LABS: ALBUMIN/GLOBULIN RATIO 1.2 (1.0-2.2); BILIRUBIN,TOTAL 0.3 mg/dL (0.2-1.0); CALCIUM 9.2 mg/dL (8.5-10.3); CREATININE 0.7 mg/dL (0.4-1.0); POTASSIUM 3.8 mmol/L (3.5-5.0); TOTAL PROTEIN 7.4 g/dL (6.7-8.2)
--- NOTE | 2022-08-09 17:20 | ED Physician Documentation ---
History of Present Illness - Stated complaint Stated Complaint: GENERAL WEAKNESS - Chief complaint Chief Complaint: General - History obtained from History obtained from: Patient, Family, EMS - History of Present Illness Pain level max: 0 Pain level now: 0 - Additonal information Additional information: Patient is a 47-year-old female, history of diabetes who presents to the emergency department complaining of generalized weakness for 2 days. She usually is mostly bedbound, but is able to transfer herself to the commode. She is taking care of by her daughter. She states that for the past 2 days has been unable to transfer herself. She has been urinating on herself in bed. Her daughter turned her today and noticed a bedsore, call 911 to have her evaluated. No fevers. No chills. Nothing makes it better or worse. They state that her blood sugars have been high at home as well, running in the 3-500 range. Review of Systems Ten Systems: 10 systems reviewed and negative Constitutional: denies: Fever, Chills Nose: denies: Rhinorrhea / runny nose, Congestion Throat: denies: Sore throat Cardiac: denies: Chest pain / pressure, Palpitations Respiratory: denies: Cough GI: denies: Abdominal Pain, Nausea, Vomiting, Diarrhea Skin: denies: Rash Musculoskeletal: denies: Neck pain, Back pain Neurologic: denies: Headache PD PAST MEDICAL HISTORY - Past Medical History Cardiovascular: High cholesterol, Murmur Respiratory: Pneumonia Neuro: Head injury, Headaches, Migraines, Peripheral neuropathy, Seizure disorder Endocrine/Autoimmune: Type 1 diabetes, HyPOthyroidism GI: GERD, GI bleed, Ulcers, Other 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: 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 : Kidney stones HEENT: Chronic vision loss, Chronic sinusitis Psych: Depression, Anxiety Musculoskeletal: Osteoarthritis, Fibromyalgia, Fatigue, Chronic back pain Derm: None - Past Surgical History Past Surgical History: Yes General: Gastric surgery Ortho: Other /PLAYGROUND WORKER: section, Endometrial ablation, Tubal ligation HEENT: Tonsil/Adenoidectomy - Present Medications Home Medications: Ambulatory Orders Medication Instructions Recorded Confirmed Prazosin HCl 5 mg PO QPM 01/23/19 03/10/22 Trazodone HCl 300 mg PO QPM 01/23/19 03/10/22 Duloxetine HCl [Cymbalta] 60 mg PO BID 09/15/19 03/10/22 Eszopiclone [Lunesta] 3 mg PO QPM PRN 11/06/20 03/10/22 Glucagon,Human Recombinant 1 mg INJ PRN PRN 11/06/20 03/10/22 [Glucagon Emergency Kit] Mirabegron [Myrbetriq] 50 mg PO QPM 11/06/20 03/10/22 Pantoprazole Sodium [Protonix] 20 mg PO QDAC 11/06/20 03/10/22 Promethazine [Phenergan] 25 mg PO Q6HR PRN #14 tablet 11/06/20 03/10/22 Simvastatin [Zocor] 20 mg PO QPM 11/06/20 03/10/22 Spironolactone [Aldactone] 100 mg PO DAILY 11/06/20 03/10/22 methocarbamoL [Robaxin-750] 750 mg PO Q6H PRN 11/06/20 03/10/22 Levothyroxine [Synthroid] 125 mcg PO DAILY 02/21/21 03/10/22 Ibuprofen [Motrin] 800 mg PO Q8H PRN #10 tablet 03/14/21 03/10/22 Insulin Regular, Human [Novolin R 0 - 15 unit SQ TIDWM 01/25/22 03/10/22 Flexpen] Metoclopramide [Reglan] 10 mg PO ACHS 01/25/22 03/10/22 Tolterodine Tartrate [Detrol LA] 2 mg PO DAILY 01/25/22 03/10/22 Aspirin Chewable [St Jus 81 mg PO DAILY #30 tablet 02/17/22 03/10/22 Aspirin] Butalb/Acetaminophen/Caffeine 1 cap PO Q4H PRN #20 cap 02/17/22 03/10/22 [Fioricet 50-300-40 mg Capsule] Pregabalin [Lyrica] 50 mg PO TID #120 cap 02/17/22 03/10/22 Insulin Glargine [Lantus Solostar] 12 unit SUBQ DAILY 03/10/22 03/10/22 clindamycin HCL [Cleocin HCl] 300 mg PO Q6H #40 cap 08/09/22 - Allergies Allergies/Adverse Reactions: Allergies Allergy/AdvReac Type Severity Reaction Status Date / Time carisoprodol [From Soma] Allergy Unknown Verified 08/09/22 16:49 divalproex sodium Allergy Rash Verified 08/09/22 16:49 [From Depakote] gabapentin [From Neurontin] Allergy Edema Verified 08/09/22 16:49 lidocaine Allergy Unknown Verified 08/09/22 16:49 nitrofurantoin Allergy Rash Verified 08/09/22 16:49 macrocrystalline * [From Macrodantin] nortriptyline Allergy Unknown Verified 08/09/22 16:49 ondansetron [From Zofran] Allergy Hives Verified 08/09/22 16:49 ondansetron HCl * Allergy Hives Verified 08/09/22 16:49 [From Zofran (as hydrochloride)] pregabalin [From Lyrica] Allergy Headache Verified 08/09/22 16:49 - Social History Does the pt smoke?: No Smoking Status: Never smoker Does the pt drink ETOH?: No Does the pt have substance abuse?: No - Immunizations Immunizations are current?: No Immunizations: Other immun not current - POLST Patient has POLST: No POLST Status: DNR PD ED PE NORMAL - Vitals Vital signs reviewed: Yes - General General: Alert and oriented X 3, No acute distress - HEENT HEENT: PERRL, Moist mucous membranes - Neck Neck: Supple, no meningeal sign - Cardiac Cardiac: RRR, Strong equal pulses - Respiratory Respiratory: No respiratory distress, Clear bilaterally - Abdomen Abdomen: Soft, Non tender, Non distended - Back Back: No spinal TTP, Other (There is a sacral decubitus ulcer. Approximately 3 x 4 cm. Small ulcerated area. Erythema extending. no drainage) - Derm Derm: Warm and dry - Extremities Extremities: No edema - Neuro Neuro: Alert and oriented X 3 - Psych Psych: Normal mood, Normal affect Results - Vitals Vitals: Vital Signs - 24 hr 08/09/22 08/09/22 08/09/22 16:42 17:13 19:55 Temperature 37.1 C Heart Rate 110 H 102 H 91 Respiratory 18 18 16 Rate Blood Pressure 122/81 H 122/81 H 142/84 H O2 Saturation 98 98 98 Oxygen O2 Source Room air - Labs Labs: Laboratory Tests 08/09/22 08/09/22 08/09/22 16:57 16:57 17:32 WBC 7.3 RBC 4.88 Hgb 15.6 Hct 44.9 MCV 92.0 MCH 32.0 H MCHC 34.7 RDW 12.4 Plt Count 302 MPV 10.0 Neut # (Auto) 5.6 Lymph # (Auto) 0.7 L [place] # (Auto) 0.8 Eos # (Auto) 0.1 Baso # (Auto) 0.0 Absolute Nucleated RBC 0.00 Nucleated RBC % 0.0 Sodium 135 Potassium 3.8 Chloride 98 L Carbon Dioxide 27 Anion Gap 10.0 BUN 13 Creatinine 0.7 Estimated GFR (MDRD) 89 Glucose 212 H Calcium 9.2 Total Bilirubin 0.3 AST 17 ALT 17 Alkaline Phosphatase 88 Total Protein 7.4 Albumin 4.0 Globulin 3.4 Albumin/Globulin Ratio 1.2 Lipase 19 L Urine Color YELLOW Urine Clarity CLEAR Urine pH 6.0 Ur Specific [place] 1.025 Urine Protein NEGATIVE Urine Glucose (UA) 250 H Urine Ketones TRACE Urine Occult Blood NEGATIVE Urine Nitrite NEGATIVE Urine Bilirubin NEGATIVE Urine Urobilinogen 0.2 (NORMAL) Ur Leukocyte Esterase NEGATIVE Ur Microscopic Review NOT INDICATED Urine Culture Comments NOT INDICATED Urine HCG, Qual NEGATIVE PD MEDICAL DECISION MAKING - ED course Complexity details: reviewed results, re-evaluated patient, considered differential, d/w patient ED course: Patient is a 47-year-old female who was brought in by family for a sacral pressure ulcer. There does appear to be some surrounding cellulitis, therefore will start on antibiotics. Also potentially could have a UTI, but the antibiotics mainly will be for skin and soft tissue infection coverage. No evidence of sepsis. No fever. No significant leukocytosis. Normal vital signs. We will place the patient on antibiotics for home and have her follow-up with her doctor for wound care. The family is going to speak with her doctor about possible assisted living versus [facility] placement as the patient is not ambulatory at home. Patient and family counseled regarding signs and symptoms for which I believe and urgent re-evaluation would be necessary. Patient with good understanding of and agreement to plan and is comfortable going home at this time This document was made in part using voice recognition software. While efforts are made to proofread this document, sound alike and grammatical errors may occur. Departure - Departure Disposition: Home, Self Care Clinical Impression: Cellulitis Qualifiers: Site of cellulitis: buttock Qualified Code(s): L03.317 - Cellulitis of buttock Pressure ulcer Qualifiers: Pressure injury location: sacral region Pressure injury stage: unstageable Qualified Code(s): L89.150 - Pressure ulcer of sacral region, unstageable Condition: Good Instructions: ED Infec Skin Cellulitis, ED Pressure Injury Follow-Up: Isatu Belle MD [Primary Care Provider] - Within 1 week Prescriptions: clindamycin HCL [Cleocin HCl] 300 mg PO Q6H #40 cap Comments: Please contact her doctor tomorrow to have her set up with wound care for her sacral pressure ulcer. Please take all antibiotics until gone. Her prescription was sent to [facility] pharmacy. Return if she worsens Discharge Date/Time: 08/09/22 19:59
[2022-08-09 17:45] LABS: BILIRUBIN,URINE NEGATIVE (NEGATIVE); CLARITY,URINE CLEAR (CLEAR); GLUCOSE, URINE (UA) 250 mg/dL (NEGATIVE); KETONES,URINE (UA) TRACE mg/dL (NEGATIVE); LEUKOCYTE ESTERASE, URINE NEGATIVE (NEGATIVE); NITRITE,URINE NEGATIVE (NEGATIVE); OCCULT BLOOD,URINE NEGATIVE (NEGATIVE); PROTEIN,URINE NEGATIVE (NEGATIVE); UROBILINOGEN,URINE 0.2 (NORMAL) E.U./dL (NORMAL)
[2022-08-09 17:47] LABS: HCG UR QUAL NEGATIVE
[2022-08-09] MEDS ORDERED: CLINDAMYCIN 900 MG/50 ML 50 ML IV ONE (18:11)
[2022-08-09 19:57] VITALS: BP 142/84
== END 2022-08-09 19:59 | disposition home or self-care (01) ==
LOC: EDUNIT# → ED 16:33
DX: L03.317 Cellulitis of buttock (principal); L89.150 Pressure ulcer of sacral region, unstageable; Z66 Do not resuscitate
CPT/HCPCS: 36415; 51701; 80053; 81001; 81003; 81025; 83690; 85025; 87086; 99284

== ENCOUNTER 2022-08-09 20:05 | Outpatient (CLI) | payer MEDICARE, MEDICAID | END 2022-08-09 20:06 | disposition home or self-care (01) | LOC: EMS 20:05 | PROVIDERS: ATTEND Emergency Medicine | DX: G82.20 Paraplegia, unspecified (principal); G62.9 Polyneuropathy, unspecified; L89.159 Pressure ulcer of sacral region, unspecified stage | CPT/HCPCS: A0425; A0428 ==

== ENCOUNTER 2022-08-13 21:01 | Outpatient (CLI) | payer MEDICARE, MEDICAID | END 2022-08-13 21:02 | disposition critical access hospital (66) | LOC: EMS 21:01 | DX: E11.65 Type 2 diabetes mellitus with hyperglycemia (principal) | CPT/HCPCS: A0425; A0429 ==

== ENCOUNTER 2022-08-13 21:20 | Emergency (ER) | payer MEDICARE, MEDICAID ==
[2022-08-13 21:49] LABS: BASOPHILS # (AUTO) 0.1 10^3/uL (0.0-0.1); BASOPHILS % (AUTO) 0.6 %; EOSINOPHILS # (AUTO) 0.3 10^3/uL (0.0-0.7); HCT - HEMATOCRIT 40.7 % (37.0-47.0); HGB - HEMOGLOBIN 14.3 g/dL (12.0-16.0); LYMPHOCYTES # (AUTO) 1.4 10^3/uL (1.5-3.5); LYMPHOCYTES % (AUTO) 15.8 %; MEAN CORPUSCULAR HEMOGLOBIN 32.3 pg (27.0-31.0); MEAN CORPUSCULAR HGB CONC 35.1 g/dL (32.0-36.0); MEAN CORPUSCULAR VOLUME 91.9 fL (81.0-99.0); MEAN PLATELET VOLUME 10.2 fL (7.9-10.8); MONOCYTES # (AUTO) 0.8 10^3/uL (0.0-1.0); MONOCYTES % (AUTO) 9.4 %; NEUTROPHILS # (AUTO) 6.2 10^3/uL (1.5-6.6); NEUTROPHILS % (AUTO) 70.7 %; PLT - PLATELET COUNT 337 10^3/uL (130-450); RED BLOOD COUNT 4.43 10^6/uL (4.20-5.40); RED CELL DISTRIBUTION WIDTH 12.3 % (12.0-15.0); WHITE BLOOD COUNT 8.8 x10^3/uL (4.8-10.8)
[2022-08-13 21:51] LABS: VBG BASE EXCESS 2.1 mmol/L (-2 - +2); VBG HCO3 25.8 mmol/L (23-28); VBG OXYGEN SATURATION 78.6 % (60-80); VBG PCO2 37.3 mmHg (41-51); VBG PH 7.458 (7.31-7.41); VBG PO2 39.4 mmHg (25-47)
[2022-08-13] MEDS ORDERED: SODIUM CHLORIDE 0.9% 1,000 ML IV STA (21:54)
[2022-08-13 21:56] LABS: KETONES, SERUM (ACETEST) NEGATIVE (NEGATIVE)
--- NOTE | 2022-08-13 21:59 | ED Physician Documentation ---
History of Present Illness - Stated complaint Stated Complaint: DIABETIC ISSUE - Chief complaint Chief Complaint: General - History obtained from History obtained from: Patient - Additonal information Additional information: Patient is a 47-year-old insulin dependent diabetic presenting for evaluation of hyperglycemia. She reports this evening her blood sugar was 594 and it normally runs in the 300s. She has taken 14 units of Lantus this morning and 6 units of short acting insulin this evening. She did try a COVID for dinner. She was seen 3 days ago for a sacral ulcer and started on clindamycin for her cellulitis which she has been taking. She denies fever, cough, chest pain, difficulty breathing, vomiting or diarrhea. She reports having chronic urinary incontinence and denies change in odor or color to urine. She is primarily bedbound. Review of Systems Constitutional: denies: Fever Nose: denies: Congestion Cardiac: denies: Chest pain / pressure Respiratory: denies: Dyspnea GI: denies: Abdominal Pain, Vomiting, Diarrhea : reports: Incontinent. 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 : Kidney stones HEENT: Chronic vision loss, Chronic sinusitis Psych: Depression, Anxiety Musculoskeletal: Osteoarthritis, Fibromyalgia, Fatigue, Chronic back pain Derm: None - Past Surgical History Past Surgical History: Yes General: Gastric surgery Ortho: Other /FOOD SAFETY COORDINATOR: section, Endometrial ablation, Tubal ligation HEENT: Tonsil/Adenoidectomy - Present Medications Home Medications: Ambulatory Orders Medication Instructions Recorded Confirmed Prazosin HCl 5 mg PO QPM 01/23/19 03/10/22 Trazodone HCl 300 mg PO QPM 01/23/19 03/10/22 Duloxetine HCl [Cymbalta] 60 mg PO BID 09/15/19 03/10/22 Eszopiclone [Lunesta] 3 mg PO QPM PRN 11/06/20 03/10/22 Glucagon,Human Recombinant 1 mg INJ PRN PRN 11/06/20 03/10/22 [Glucagon Emergency Kit] Mirabegron [Myrbetriq] 50 mg PO QPM 11/06/20 03/10/22 Pantoprazole Sodium [Protonix] 20 mg PO QDAC 11/06/20 03/10/22 Promethazine [Phenergan] 25 mg PO Q6HR PRN #14 tablet 11/06/20 03/10/22 Simvastatin [Zocor] 20 mg PO QPM 11/06/20 03/10/22 Spironolactone [Aldactone] 100 mg PO DAILY 11/06/20 03/10/22 methocarbamoL [Robaxin-750] 750 mg PO Q6H PRN 11/06/20 03/10/22 Levothyroxine [Synthroid] 125 mcg PO DAILY 02/21/21 03/10/22 Ibuprofen [Motrin] 800 mg PO Q8H PRN #10 tablet 03/14/21 03/10/22 Insulin Regular, Human [Novolin R 0 - 15 unit SQ TIDWM 01/25/22 03/10/22 Flexpen] Metoclopramide [Reglan] 10 mg PO ACHS 01/25/22 03/10/22 Tolterodine Tartrate [Detrol LA] 2 mg PO DAILY 01/25/22 03/10/22 Aspirin Chewable [St Jus 81 mg PO DAILY #30 tablet 02/17/22 03/10/22 Aspirin] Butalb/Acetaminophen/Caffeine 1 cap PO Q4H PRN #20 cap 02/17/22 03/10/22 [Fioricet 50-300-40 mg Capsule] Pregabalin [Lyrica] 50 mg PO TID #120 cap 02/17/22 03/10/22 Insulin Glargine [Lantus Solostar] 12 unit SUBQ DAILY 03/10/22 03/10/22 clindamycin HCL [Cleocin HCl] 300 mg PO Q6H #40 cap 08/09/22 - Allergies Allergies/Adverse Reactions: Allergies Allergy/AdvReac Type Severity Reaction Status Date / Time carisoprodol [From Soma] Allergy Unknown Verified 08/13/22 21:29 divalproex sodium Allergy Rash Verified 08/13/22 21:29 [From Depakote] gabapentin [From Neurontin] Allergy Edema Verified 08/13/22 21:29 lidocaine Allergy Unknown Verified 08/13/22 21:29 nitrofurantoin Allergy Rash Verified 08/13/22 21:29 macrocrystalline * [From Macrodantin] nortriptyline Allergy Unknown Verified 08/13/22 21:29 ondansetron [From Zofran] Allergy Hives Verified 08/13/22 21:29 ondansetron HCl * Allergy Hives Verified 08/13/22 21:29 [From Zofran (as hydrochloride)] pregabalin [From Lyrica] Allergy Headache Verified 08/13/22 21:29 - Social History Does the pt smoke?: No Smoking Status: Never smoker Does the pt drink ETOH?: No Does the pt have substance abuse?: No - Immunizations Immunizations are current?: No Immunizations: Other immun not current - POLST Patient has POLST: No POLST Status: DNR PD ED PE NORMAL - General General: Alert and oriented X 3, No acute distress, Well developed/nourished - HEENT HEENT: Atraumatic, Moist mucous membranes - Neck Neck: Supple, no meningeal sign - Cardiac Cardiac: RRR, No murmur, Strong equal pulses - Respiratory Respiratory: No respiratory distress, Clear bilaterally - Abdomen Abdomen: Normal bowel sounds, Soft, Non tender, Non distended - Back Back: No spinal TTP, Other (~3x4 cm sacral decubitus ulcer; Surrounding erythema which appears improved from picture noted in chart; No fluctuance) - Derm Derm: Warm and dry - Extremities Extremities: No calf tenderness / cord - Neuro Neuro: Normal speech Results - Vitals Vitals: Vital Signs - 24 hr 08/13/22 08/13/22 08/13/22 21:25 21:49 23:24 Temperature 36.6 C Heart Rate 88 83 81 Respiratory 14 20 20 Rate Blood Pressure 100/67 106/76 O2 Saturation 95 95 99 Oxygen O2 Source Room air - Labs Labs: Microbiology 08/13/22 21:35 Wound Culture - Preliminary Back - Lower Laboratory Tests 08/13/22 08/13/22 08/13/22 21:43 21:43 21:43 WBC 8.8 RBC 4.43 Hgb 14.3 Hct 40.7 MCV 91.9 MCH 32.3 H MCHC 35.1 RDW 12.3 Plt Count 337 MPV 10.2 Neut # (Auto) 6.2 Lymph # (Auto) 1.4 L [place] # (Auto) 0.8 Eos # (Auto) 0.3 Baso # (Auto) 0.1 Absolute Nucleated RBC 0.00 Nucleated RBC % 0.0 VBG pH 7.458 H VBG pCO2 37.3 L VBG pO2 39.4 VBG HCO3 25.8 VBG Total CO2 27.0 VBG O2 Saturation 78.6 VBG Base Excess 2.1 H Sodium 133 L Potassium 3.6 Chloride 98 L Carbon Dioxide 26 Anion Gap 9.0 BUN 16 Creatinine 0.7 Estimated GFR (MDRD) 89 Glucose 360 H Calcium 8.8 Magnesium 1.9 Total Bilirubin 0.8 AST 11 ALT 19 Alkaline Phosphatase 76 Total Protein 6.6 L Albumin 3.3 Globulin 3.3 Albumin/Globulin Ratio 1.0 Urine Color Urine Clarity Urine pH Ur Specific [place] Urine Protein Urine Glucose (UA) Urine Ketones Urine Occult Blood Urine Nitrite Urine Bilirubin Urine Urobilinogen Ur Leukocyte Esterase Ur Microscopic Review Urine Culture Comments Serum Ketones NEGATIVE 08/13/22 22:52 WBC RBC Hgb Hct MCV MCH MCHC RDW Plt Count MPV Neut # (Auto) Lymph # (Auto) [place] # (Auto) Eos # (Auto) Baso # (Auto) Absolute Nucleated RBC Nucleated RBC % VBG pH VBG pCO2 VBG pO2 VBG HCO3 VBG Total CO2 VBG O2 Saturation VBG Base Excess Sodium Potassium Chloride Carbon Dioxide Anion Gap BUN Creatinine Estimated GFR (MDRD) Glucose Calcium Magnesium Total Bilirubin AST ALT Alkaline Phosphatase Total Protein Albumin Globulin Albumin/Globulin Ratio Urine Color YELLOW Urine Clarity CLEAR Urine pH 6.0 Ur Specific [place] 1.020 Urine Protein NEGATIVE Urine Glucose (UA) >=1000 H Urine Ketones 40 H Urine Occult Blood NEGATIVE Urine Nitrite NEGATIVE Urine Bilirubin NEGATIVE Urine Urobilinogen 0.2 (NORMAL) Ur Leukocyte Esterase NEGATIVE Ur Microscopic Review NOT INDICATED Urine Culture Comments NOT INDICATED Serum Ketones PD MEDICAL DECISION MAKING - ED course Complexity details: reviewed results, re-evaluated patient, d/w patient ED course: Patient presenting for evaluation of hyperglycemia. Blood sugars in the 300s which is an improvement from the 500 range that was obtained by EMS. She is overall nontoxic in appearance with stable vital signs. Her labs are reassuring and there is no signs of DKA. She is currently on antibiotics for cellulitis near a sacral decubitus ulcer. The redness does appear improved from the picture that is in her chart from a few days ago.Discussed need for close follow-up with her primary care doctor regarding management of her diabetes as well as wound care for her pressure ulcer. Patient is counseled on concerning symptoms to return for. Departure - Departure Disposition: 01 Home, Self Care Clinical Impression: Hyperglycemia due to diabetes mellitus, Cellulitis of buttock Pressure ulcer of sacral region Qualifiers: Pressure injury stage: unspecified pressure injury stage Qualified Code(s): L89.159 - Pressure ulcer of sacral region, unspecified stage Condition: Stable Instructions: ED Infec Skin Cellulitis, ED Hyperglycemia Diabetic Comments: Your blood sugar has improved from the readings you were obtaining at home and is currently in the 300 range. Please continue with taking your medications as prescribed including the antibiotic. Please make sure to have close follow-up with your primary care doctor including Referral for wound care for your pressure ulcer. Discharge Date/Time: 08/14/22 00:20
[2022-08-13 22:01] LABS: ALBUMIN 3.3 g/dL (3.2-5.5); ALKALINE PHOSPHATASE 76 IU/L (42-121); ALT ALANINE AMINOTRANSFERASE 19 IU/L (10-60); AST ASPARTATE AMINOTRANSFERASE 11 IU/L (10-42); BILIRUBIN,TOTAL 0.8 mg/dL (0.2-1.0); BUN - BLOOD UREA NITROGEN 16 mg/dL (6-20); CALCIUM 8.8 mg/dL (8.5-10.3); CARBON DIOXIDE - CO2 26 mmol/L (21-32); CHLORIDE 98 mmol/L (101-111); CREATININE 0.7 mg/dL (0.4-1.0); GFR - MDRD 89 (>89); GLUCOSE 360 mg/dL (70-100); MAGNESIUM 1.9 mg/dL (1.7-2.8); POTASSIUM 3.6 mmol/L (3.5-5.0); SODIUM 133 mmol/L (135-145); TOTAL PROTEIN 6.6 g/dL (6.7-8.2)
[2022-08-13 22:57] LABS: BILIRUBIN,URINE NEGATIVE (NEGATIVE); GLUCOSE, URINE (UA) >=1000 mg/dL (NEGATIVE); KETONES,URINE (UA) 40 mg/dL (NEGATIVE); LEUKOCYTE ESTERASE, URINE NEGATIVE (NEGATIVE); NITRITE,URINE NEGATIVE (NEGATIVE); OCCULT BLOOD,URINE NEGATIVE (NEGATIVE); PROTEIN,URINE NEGATIVE (NEGATIVE); UROBILINOGEN,URINE 0.2 (NORMAL) E.U./dL (NORMAL)
[2022-08-13 22:58] LABS: CLARITY,URINE CLEAR (CLEAR)
[2022-08-13 23:24] VITALS: BP 106/76
== END 2022-08-14 00:20 | disposition home or self-care (01) ==
LOC: EDUNIT# → ED 21:20
DX: L03.317 Cellulitis of buttock (principal); L89.159 Pressure ulcer of sacral region, unspecified stage; E10.65 Type 1 diabetes mellitus with hyperglycemia; Z79.4 Long term (current) use of insulin
CPT/HCPCS: 36415; 51701; 80053; 81001; 81003; 82009; 82803; 83735; 85025; 87070; 87077; 87086; 87181; 87205; 99284

== ENCOUNTER 2022-08-14 00:11 | Outpatient (CLI) | payer MEDICARE, MEDICAID | END 2022-08-14 00:12 | disposition home or self-care (01) | LOC: EMS 00:11 | PROVIDERS: ATTEND Emergency Medicine | DX: E11.65 Type 2 diabetes mellitus with hyperglycemia (principal); E11.42 Type 2 diabetes mellitus with diabetic polyneuropathy; Z74.01 Bed confinement status | CPT/HCPCS: A0425; A0428 ==

== ENCOUNTER 2022-09-01 10:53 | Emergency (ER) | payer MEDICARE, MEDICAID ==
[2022-09-01 11:52] LABS: BASOPHILS % (AUTO) 0.5 %; EOSINOPHILS % (AUTO) 0.5 %; HGB - HEMOGLOBIN 14.4 g/dL (12.0-16.0); LYMPHOCYTES # (AUTO) 0.9 10^3/uL (1.5-3.5); LYMPHOCYTES % (AUTO) 10.1 %; MEAN CORPUSCULAR HEMOGLOBIN 31.5 pg (27.0-31.0); MEAN CORPUSCULAR HGB CONC 32.7 g/dL (32.0-36.0); MEAN CORPUSCULAR VOLUME 96.3 fL (81.0-99.0); MEAN PLATELET VOLUME 10.7 fL (7.9-10.8); MONOCYTES # (AUTO) 0.4 10^3/uL (0.0-1.0); MONOCYTES % (AUTO) 4.4 %; NEUTROPHILS # (AUTO) 7.1 10^3/uL (1.5-6.6); NEUTROPHILS % (AUTO) 83.9 %; PLT - PLATELET COUNT 300 10^3/uL (130-450); RED BLOOD COUNT 4.57 10^6/uL (4.20-5.40); RED CELL DISTRIBUTION WIDTH 12.2 % (12.0-15.0); VBG BASE EXCESS -7.1 mmol/L (-2 - +2); VBG HCO3 19.1 mmol/L (23-28); VBG OXYGEN SATURATION 60.9 % (60-80); VBG PCO2 40.7 mmHg (41-51); VBG PH 7.289 (7.31-7.41); VBG PO2 32.4 mmHg (25-47); VBG TOTAL CO2 20.3 mmol/L (24-29); WHITE BLOOD COUNT 8.5 x10^3/uL (4.8-10.8)
[2022-09-01 11:53] LABS: KETONES, SERUM (ACETEST) MODERATE (NEGATIVE)
[2022-09-01 12:02] LABS: ALBUMIN 3.5 g/dL (3.2-5.5); ALBUMIN/GLOBULIN RATIO 0.9 (1.0-2.2); ALKALINE PHOSPHATASE 99 IU/L (42-121); ALT ALANINE AMINOTRANSFERASE 19 IU/L (10-60); AST ASPARTATE AMINOTRANSFERASE 14 IU/L (10-42); BILIRUBIN,TOTAL 1.4 mg/dL (0.2-1.0); BUN - BLOOD UREA NITROGEN 17 mg/dL (6-20); CALCIUM 8.9 mg/dL (8.5-10.3); CARBON DIOXIDE - CO2 21 mmol/L (21-32); CHLORIDE 93 mmol/L (101-111); CREATININE 0.9 mg/dL (0.4-1.0); GFR - MDRD 67 (>89); GLUCOSE 485 mg/dL (70-100); MAGNESIUM 1.9 mg/dL (1.7-2.8); POTASSIUM 4.6 mmol/L (3.5-5.0); SODIUM 130 mmol/L (135-145); TOTAL PROTEIN 7.4 g/dL (6.7-8.2)
[2022-09-01] MEDS ORDERED: INSULIN REGULAR HUMAN 100 UNIT/1 ML 10 ML MDV SUBQ STA (12:06)
[2022-09-01] MEDS ORDERED: INSULIN REGULAR HUMAN 100 UNIT/1 ML 10 ML MDV IVP STA (12:06)
[2022-09-01] MEDS ORDERED: PIPERACILLIN/TAZOBACTAM 3.375 GM in SODIUM CHLORIDE 0.9% MINIBAG 100 ML IV STA ×2 (12:11→21:34)
[2022-09-01] MEDS ORDERED: VANCOMYCIN INJ 1 GM in SODIUM CHLORIDE 0.9% 500 ML IV STA (12:11)
--- NOTE | 2022-09-01 12:13 | ED Physician Documentation ---
History of Present Illness - Stated complaint Stated Complaint: BLOOD SUGAR ISSUE - Chief complaint Chief Complaint: Wound - History obtained from History obtained from: Patient - History of Present Illness Timing: Today Pain level max: 5 Pain level now: 5 - Additonal information Additional information: Patient is a 47-year-old female with a longstanding history of diabetes who presents to the emergency department stating that her blood sugars been uncontrolled at home. Blood sugar 500 today. She states she took 8 units of insulin prior to arrival. She states that she also has a large pressure ulcer on her back that has progressively gotten worse. She has been referred to wound care but states that she has no transportation to make it to those appointments. She is complaining of pain in the coccyx area. Subjective fevers at home. Nothing makes it better or worse. Review of Systems Ten Systems: 10 systems reviewed and negative Constitutional: reports: Fever (Subjective), Chills Respiratory: denies: Cough GI: denies: Abdominal Pain, Vomiting Skin: denies: Rash Musculoskeletal: denies: Neck pain Neurologic: denies: Headache PD PAST MEDICAL HISTORY - Past Medical History Cardiovascular: High cholesterol, Murmur Respiratory: Pneumonia Neuro: Head injury, Headaches, Migraines, Peripheral neuropathy, Seizure disorder Endocrine/Autoimmune: Type 1 diabetes, HyPOthyroidism GI: GERD, GI bleed, Ulcers, Other SURGICAL ELASTIC KNITTER: Other : Kidney stones HEENT: Chronic vision loss, Chronic sinusitis Psych: Depression, Anxiety Musculoskeletal: Osteoarthritis, Fibromyalgia, Fatigue, Chronic back pain Derm: None - Past Surgical History Past Surgical History: Yes General: Gastric surgery Ortho: Other /SURGICAL ELASTIC KNITTER: section, Endometrial ablation, Tubal ligation HEENT: Tonsil/Adenoidectomy - Present Medications Home Medications: Ambulatory Orders Medication Instructions Recorded Confirmed Prazosin HCl 5 mg PO QPM 01/23/19 03/10/22 Trazodone HCl 300 mg PO QPM 01/23/19 03/10/22 Duloxetine HCl [Cymbalta] 60 mg PO BID 09/15/19 03/10/22 Eszopiclone [Lunesta] 3 mg PO QPM PRN 11/06/20 03/10/22 Glucagon,Human Recombinant 1 mg INJ PRN PRN 11/06/20 03/10/22 [Glucagon Emergency Kit] Mirabegron [Myrbetriq] 50 mg PO QPM 11/06/20 03/10/22 Pantoprazole Sodium [Protonix] 20 mg PO QDAC 11/06/20 03/10/22 Promethazine [Phenergan] 25 mg PO Q6HR PRN #14 tablet 11/06/20 03/10/22 Simvastatin [Zocor] 20 mg PO QPM 11/06/20 03/10/22 Spironolactone [Aldactone] 100 mg PO DAILY 11/06/20 03/10/22 methocarbamoL [Robaxin-750] 750 mg PO Q6H PRN 11/06/20 03/10/22 Levothyroxine [Synthroid] 125 mcg PO DAILY 02/21/21 03/10/22 Ibuprofen [Motrin] 800 mg PO Q8H PRN #10 tablet 03/14/21 03/10/22 Insulin Regular, Human [Novolin R 0 - 15 unit SQ TIDWM 01/25/22 03/10/22 Flexpen] Metoclopramide [Reglan] 10 mg PO ACHS 01/25/22 03/10/22 Tolterodine Tartrate [Detrol LA] 2 mg PO DAILY 01/25/22 03/10/22 Aspirin Chewable [St Jus 81 mg PO DAILY #30 tablet 02/17/22 03/10/22 Aspirin] Butalb/Acetaminophen/Caffeine 1 cap PO Q4H PRN #20 cap 02/17/22 03/10/22 [Fioricet 50-300-40 mg Capsule] Pregabalin [Lyrica] 50 mg PO TID #120 cap 02/17/22 03/10/22 Insulin Glargine [Lantus Solostar] 12 unit SUBQ DAILY 03/10/22 03/10/22 clindamycin HCL [Cleocin HCl] 300 mg PO Q6H #40 cap 08/09/22 - Allergies Allergies/Adverse Reactions: Allergies Allergy/AdvReac Type Severity Reaction Status Date / Time carisoprodol [From Soma] Allergy Unknown Verified 09/01/22 11:09 divalproex sodium Allergy Rash Verified 09/01/22 11:09 [From Depakote] gabapentin [From Neurontin] Allergy Edema Verified 09/01/22 11:09 lidocaine Allergy Unknown Verified 09/01/22 11:09 nitrofurantoin Allergy Rash Verified 09/01/22 11:09 macrocrystalline * [From Macrodantin] nortriptyline Allergy Unknown Verified 09/01/22 11:09 ondansetron [From Zofran] Allergy Hives Verified 09/01/22 11:09 ondansetron HCl * Allergy Hives Verified 09/01/22 11:09 [From Zofran (as hydrochloride)] pregabalin [From Lyrica] Allergy Headache Verified 09/01/22 11:09 - Social History Does the pt smoke?: No Smoking Status: Never smoker Does the pt drink ETOH?: No Does the pt have substance abuse?: No - Immunizations Immunizations are current?: No Immunizations: Other immun not current - POLST Patient has POLST: No POLST Status: DNR PD ED PE NORMAL - Vitals Vital signs reviewed: Yes - General General: Alert and oriented X 3, No acute distress - HEENT HEENT: PERRL, Moist mucous membranes - Neck Neck: Supple, no meningeal sign - Cardiac Cardiac: RRR, Strong equal pulses - Respiratory Respiratory: No respiratory distress, Clear bilaterally - Abdomen Abdomen: Soft, Non tender, Non distended - Back Back: No spinal TTP - Derm Derm: Warm and dry - Extremities Extremities: Other (There is a large pressure ulcer of the sacrum and coccyx. It is approximately 4 cm in diameter, purulent material visible, down to the bone.) - Neuro Neuro: Alert and oriented X 3 - Psych Psych: Normal mood, Normal affect Results - Vitals Vitals: Vital Signs - 24 hr 09/01/22 09/01/22 09/01/22 11:09 11:47 12:13 Temperature 36.9 C 36.3 C L 36.5 C Heart Rate 92 92 100 Respiratory 17 17 17 Rate Blood Pressure 120/88 H 126/87 H 134/88 H O2 Saturation 99 100 99 09/01/22 09/01/22 09/01/22 12:30 13:00 13:30 Temperature 36.5 C Heart Rate 100 105 H 100 Respiratory 16 20 18 Rate Blood Pressure 130/86 H 137/90 H 130/100 H O2 Saturation 100 98 100 09/01/22 09/01/22 09/01/22 14:00 14:30 15:00 Temperature 36.5 C Heart Rate 100 99 98 Respiratory 16 16 16 Rate Blood Pressure 103/76 97/75 116/77 O2 Saturation 99 99 100 09/01/22 09/01/22 09/01/22 15:30 16:30 17:00 Temperature Heart Rate 99 85 87 Respiratory 16 15 18 Rate Blood Pressure 113/84 H 127/84 H 129/79 O2 Saturation 99 99 100 09/01/22 09/01/22 09/01/22 17:30 17:47 18:00 Temperature 36.5 C Heart Rate 81 83 Respiratory 14 16 Rate Blood Pressure 121/79 121/79 O2 Saturation 100 100 09/01/22 09/01/22 09/01/22 18:30 19:00 20:00 Temperature 36.5 C Heart Rate 81 80 82 Respiratory 15 16 16 Rate Blood Pressure 129/84 H 130/80 138/89 H O2 Saturation 100 100 98 09/01/22 21:00 Temperature Heart Rate 74 Respiratory 19 Rate Blood Pressure 129/90 H O2 Saturation 100 Oxygen O2 Source Room air - Labs Labs: Microbiology 09/01/22 13:05 Wound Culture - Preliminary Back - Lower Laboratory Tests 09/01/22 09/01/22 09/01/22 11:44 11:44 11:44 WBC 8.5 RBC 4.57 Hgb 14.4 Hct 44.0 MCV 96.3 MCH 31.5 H MCHC 32.7 RDW 12.2 Plt Count 300 MPV 10.7 Neut # (Auto) 7.1 H Lymph # (Auto) 0.9 L [place] # (Auto) 0.4 Eos # (Auto) 0.0 Baso # (Auto) 0.0 Absolute Nucleated RBC 0.00 Nucleated RBC % 0.0 VBG pH 7.289 L VBG pCO2 40.7 L VBG pO2 32.4 VBG HCO3 19.1 L VBG Total CO2 20.3 L VBG O2 Saturation 60.9 VBG Base Excess -7.1 L Sodium 130 L Potassium 4.6 Chloride 93 L Carbon Dioxide 21 Anion Gap 16.0 H BUN 17 Creatinine 0.9 Estimated GFR (MDRD) 67 L Glucose 485 H Lactic Acid Calcium 8.9 Magnesium 1.9 Total Bilirubin 1.4 H AST 14 ALT 19 Alkaline Phosphatase 99 Total Protein 7.4 Albumin 3.5 Globulin 3.9 Albumin/Globulin Ratio 0.9 L Serum Ketones MODERATE H 09/01/22 09/01/22 09/01/22 12:38 19:00 19:00 WBC 6.2 RBC 4.38 Hgb 13.7 Hct 40.8 MCV 93.2 MCH 31.3 H MCHC 33.6 RDW 12.2 Plt Count 396 MPV 9.7 Neut # (Auto) 3.6 Lymph # (Auto) 1.9 [place] # (Auto) 0.5 Eos # (Auto) 0.1 Baso # (Auto) 0.0 Absolute Nucleated RBC 0.00 Nucleated RBC % 0.0 VBG pH VBG pCO2 VBG pO2 VBG HCO3 VBG Total CO2 VBG O2 Saturation VBG Base Excess Sodium 136 Potassium 4.1 Chloride 103 Carbon Dioxide 25 Anion Gap 8.0 BUN 14 Creatinine 0.6 Estimated GFR (MDRD) 106 Glucose 140 H Lactic Acid 1.3 Calcium 8.5 Magnesium Total Bilirubin AST ALT Alkaline Phosphatase Total Protein Albumin Globulin Albumin/Globulin Ratio Serum Ketones - Rads (name of study) MRI pelvis Radiology: See rad report PD MEDICAL DECISION MAKING - ED course Complexity details: reviewed results, re-evaluated patient, considered differential, d/w patient, d/w senior staff consultant ED course: Patient is a 47-year-old female with a longstanding history of diabetes. She has poorly controlled diabetes and is in mild DKA. Given insulin and IV fluids. She also has a very large sacral decubitus ulcer that appears to go down to the bone. I consulted general surgery, Dr. Hercules, She recommends a MRI to exclude osteomyelitis. I spoke with the hospitalist, Dr. Rust, she agrees to admit the patient if there is no osteomyelitis on MRI, if there is osteomyelitis on MRI, the patient may need to be transferred for higher level of care. The patient has very poor IV access and a PICC line was placed by anesthesia. Patient was started on Zosyn. The DKA resolved in the emergency department while awaiting MRI. Patient signed out to the oncoming emergency department physician awaiting MRI result. After that we will consult the telemetry hospitalist for admission if no osteomyelitis Departure - Departure Disposition: 66 [facility] DC/Xfer Clinical Impression: Hyperglycemia due to diabetes mellitus DKA (diabetic ketoacidosis) Qualifiers: Diabetes mellitus type: type 1 Diabetes mellitus complication detail: without coma Qualified Code(s): E10.10 - Type 1 diabetes mellitus with ketoacidosis without coma Sacral pressure ulcer Qualifiers: Pressure injury stage: unstageable Qualified Code(s): L89.150 - Pressure ulcer of sacral region, unstageable Condition: Stable
[2022-09-01] MEDS ORDERED: VANCOMYCIN INJ 1 GM, VANCOMYCIN INJ 500 MG in SODIUM CHLORIDE 0.9% 500 ML IV STA (12:22)
[2022-09-01] MEDS ORDERED: SODIUM CHLORIDE 0.9% 1,000 ML IV STA ×2 (12:34)
[2022-09-01] MEDS ORDERED: MORPHINE 2 MG/ML CARPUJECT IVP STA ×2 (14:43→15:10)
[2022-09-01] MEDS ORDERED: GADOBUTROL 10 MMOL/10 ML VIAL ONE (14:51)
--- NOTE | 2022-09-01 16:09 | ANESTHESIA PROCEDURE NOTE ---
Anesth Central Line Template - Central Line Central Line Preparation: Consent Obtained, Time out completed, Ultrasound used, Sterile prep and drape Central line location: Left Basilic Central line type: PICC Double Lumen Central line catheter tip site resides: Superior vena cava (SVC) Central line aftercare: Secured, No complications, Pt tolerated well Other Info/Details: Left arm prepped with chlorohexadine. Full sterile gown, gloves, drape and mask utilized. Left basilic vein imaged using ultrasound. Vein accessed with 20 G needle. Wire advanced with ease. Sheath inserted and wire removed. A 5fr dual lumen PICC trimmed to 43cm was inserted and tip tracker showed tip directed towards heart. Placement confirmed with p-wave analysis with 1cm exposed. Both ports aspirate blood and flush with ease. Line secured. Patient tolerated well. OK to use PICC.
[2022-09-01] MEDS ORDERED: SODIUM CHLORIDE FLUSH 0.9% 10 ML SYRINGE IVP PRN (16:10)
[2022-09-01 19:06] LABS: BASOPHILS % (AUTO) 0.6 %; EOSINOPHILS # (AUTO) 0.1 10^3/uL (0.0-0.7); EOSINOPHILS % (AUTO) 1.4 %; HCT - HEMATOCRIT 40.8 % (37.0-47.0); HGB - HEMOGLOBIN 13.7 g/dL (12.0-16.0); LYMPHOCYTES # (AUTO) 1.9 10^3/uL (1.5-3.5); MEAN CORPUSCULAR HEMOGLOBIN 31.3 pg (27.0-31.0); MEAN CORPUSCULAR HGB CONC 33.6 g/dL (32.0-36.0); MEAN CORPUSCULAR VOLUME 93.2 fL (81.0-99.0); MEAN PLATELET VOLUME 9.7 fL (7.9-10.8); MONOCYTES # (AUTO) 0.5 10^3/uL (0.0-1.0); MONOCYTES % (AUTO) 8.4 %; NEUTROPHILS # (AUTO) 3.6 10^3/uL (1.5-6.6); NEUTROPHILS % (AUTO) 58.1 %; PLT - PLATELET COUNT 396 10^3/uL (130-450); RED BLOOD COUNT 4.38 10^6/uL (4.20-5.40); RED CELL DISTRIBUTION WIDTH 12.2 % (12.0-15.0); WHITE BLOOD COUNT 6.2 x10^3/uL (4.8-10.8)
[2022-09-01 19:16] LABS: CALCIUM 8.5 mg/dL (8.5-10.3); CREATININE 0.6 mg/dL (0.4-1.0); POTASSIUM 4.1 mmol/L (3.5-5.0)
[2022-09-01] MEDS ORDERED: GADOBUTROL 10 MMOL/10 ML VIAL IVP ONE (19:42)
--- NOTE | 2022-09-01 21:47 | MRI Report ---
PROCEDURE: Pelvis W/WO INDICATIONS: sacral decubitus ulcer CONTRAST: IV CONTRAST: Gadavist ml: 8.1 TECHNIQUE: Precontrast T1, coronal T2 haste, coronal T2 haste with fat saturation, coronal STIR, axial T1, axial STIR, axial T2 haste, sagittal T2 haste, and sagittal T1. After administration of contrast, axial, sagittal, and coronal T2 with fat saturation performed through the pelvis. COMPARISON: CT anterior abdomen pelvis 02/12/2022. FINDINGS: Image quality: Excellent. Bones: There is periosteal edema and enhancement along the posterior inferior aspect of the sacrum wi th a suspected minimal associated region of marrow edema and enhancement. The findings are suggestive of osteomyelitis. No discrete bony erosions. Soft tissues: There is a small right paracentral posterior decubitus ulcer overlying the sacrum. Ther e is an associated subcutaneous region of edema and enhancement with indistinct margins suggestive of cellulitis. More laterally, there is abnormal edema and enhancement within the left gluteus columba, medius, and minimus muscles. The gluteal tendons appear grossly intact. The findings are suggestive of a nonspeci fic myositis. No discrete loculated fluid collection to suggest abscess. There is mild edema and enhancement along the right pelvic sidewall musculature including the obturat or externus as well as a few adductor musculature. The findings are suggestive of muscle strains but may also reflect a myositis. Within the visualized pelvis, there is a small amount of presacral edema. Visualized bowel loops of b owel in caliber. Bladder demonstrates a few bladder diverticula. IMPRESSION: 1. Small right paracentral posterior decubitus ulcer overlying the sacrum with associated subcutaneou s edema and enhancement suggestive of cellulitis. 2. Mild periosteal edema and enhancement within the underlying sacrum as well as a suspected small re gion of marrow edema and enhancement are suggestive of osteomyelitis. 3. Abnormal edema and enhancement involving the left gluteal musculature as described. The findings l ikely represent an infectious or inflammatory myositis. The differential includes an intramuscular ma ss which is considered less likely. 4. Mild presacral edema is nonspecific but likely reactive. 5. Mild edema and enhancement involving the right pelvic sidewall musculature are suggestive of muscl e strains versus a myositis. Reviewed by: Sterling Hdez MD on 09/01/2022 9:46 PM PDT Approved by: Sterling Hdez MD on 09/01/2022 9:46 PM PDT Station ID: [id number]
--- NOTE | 2022-09-01 23:09 | ED Physician Documentation ---
ED Addendum - Addendum Addendum: 09/01/22 23:08 MRI of the pelvis is concerning for sacral osteomyelitis. Patient will be started on daily vancomycin and cefepime. I discussed the case with Dr. Cameron, who confirmed that due to the complexity of the case she would be better served at a institution with higher level of care. She will discuss the case again with the hospitalist in the morning, however for the time being it would be best to get the patient placed on a transfer list.
[2022-09-01] MEDS: VANCOMYCIN INJ 2 GM in SODIUM CHLORIDE 0.9% 500 ML IV SCH (23:14)
[2022-09-01] MEDS: CEFEPIME 2 GM in SODIUM CHLORIDE 0.9% MINIBAG 100 ML IV SCH (23:14)
[2022-09-01] MEDS ORDERED: VANCOMYCIN 1 GM VIAL ONE (23:16)
[2022-09-02] MEDS ORDERED: traZODone 50 MG TABLET PO STA (01:26)
[2022-09-02] MEDS ORDERED: methocarbamoL 500 MG TABLET PO STA (01:26)
[2022-09-02] MEDS ORDERED: PROMETHAZINE INJ 25 MG in SODIUM CHLORIDE 0.9% 50 ML IV STA (03:20)
[2022-09-02] MEDS ORDERED: PROMETHAZINE 25 MG/1 ML VIAL ONE (03:37)
[2022-09-02] MEDS ORDERED: oxyCODONE 5 MG TABLET PO STA (04:07)
[2022-09-02] MEDS: CEFEPIME 2 GM in SODIUM CHLORIDE 0.9% MINIBAG 100 ML IV SCH ×3 (06:05→21:19)
[2022-09-02] MEDS ORDERED: INSULIN REGULAR HUMAN 100 UNIT in SODIUM CHLORIDE 0.9% 100ML 99 ML IV STA (07:57)
[2022-09-02] MEDS ORDERED: SODIUM CHLORIDE 0.9% 1,000 ML IV STA (07:58)
[2022-09-02 09:12] LABS: BASOPHILS % (AUTO) 0.4 %; EOSINOPHILS % (AUTO) 0.1 %; HCT - HEMATOCRIT 42.2 % (37.0-47.0); HGB - HEMOGLOBIN 13.6 g/dL (12.0-16.0); LYMPHOCYTES # (AUTO) 0.3 10^3/uL (1.5-3.5); LYMPHOCYTES % (AUTO) 4.6 %; MEAN CORPUSCULAR HEMOGLOBIN 31.6 pg (27.0-31.0); MEAN CORPUSCULAR HGB CONC 32.2 g/dL (32.0-36.0); MEAN CORPUSCULAR VOLUME 97.9 fL (81.0-99.0); MEAN PLATELET VOLUME 10.2 fL (7.9-10.8); MONOCYTES # (AUTO) 0.2 10^3/uL (0.0-1.0); MONOCYTES % (AUTO) 2.2 %; NEUTROPHILS # (AUTO) 6.7 10^3/uL (1.5-6.6); NEUTROPHILS % (AUTO) 91.9 %; PLT - PLATELET COUNT 339 10^3/uL (130-450); RED BLOOD COUNT 4.31 10^6/uL (4.20-5.40); RED CELL DISTRIBUTION WIDTH 12.4 % (12.0-15.0); WHITE BLOOD COUNT 7.3 x10^3/uL (4.8-10.8)
[2022-09-02 09:30] LABS: ALBUMIN 3.2 g/dL (3.2-5.5); ALBUMIN/GLOBULIN RATIO 0.9 (1.0-2.2); BILIRUBIN,TOTAL 1.6 mg/dL (0.2-1.0); CALCIUM 8.8 mg/dL (8.5-10.3); CREATININE 1.1 mg/dL (0.4-1.0); POTASSIUM 5.7 mmol/L (3.5-5.0); TOTAL PROTEIN 6.8 g/dL (6.7-8.2)
[2022-09-02] MEDS: VANCOMYCIN INJ 2 GM in SODIUM CHLORIDE 0.9% 500 ML IV SCH (11:55)
[2022-09-02] MEDS ORDERED: METOCLOPRAMIDE 10 MG TABLET PO PRN (12:34)
[2022-09-02] MEDS: oxyCODONE 5 MG TABLET PO PRN ×2 (13:26→19:49)
--- NOTE | 2022-09-02 14:48 | ANESTHESIA ---
Pre-Anesthesia VS, & Labs - Diagnosis osteomylitis - Procedure bone biopsy Vital Signs: Temp Pulse Resp BP Pulse Ox O2 Flow Rate 36.6 C 102 H 16 126/89 H 100 09/02/22 14:16 09/02/22 14:16 09/02/22 14:16 09/02/22 14:16 09/02/22 14:16 Height: 5 ft 7 in Weight (kg): 81.647 kg Body Mass Index: 28.1 BMI Classification: Overweight - NPO >8 hours - Is Patient ?: No - Lab Results Current Lab Results: Laboratory Tests 09/02/22 09:07: Sodium 132 L, Potassium 5.7 H, Chloride 101, Carbon Dioxide 11 L*, Anion Gap 20.0 H, BUN 20, Creatinine 1.1 H, Estimated GFR (MDRD) 53 L, Glucose 566 H*, Calcium 8.8, Total Bilirubin 1.6 H, AST 16, ALT 19, Alkaline Phosphatase 89, Total Protein 6.8, Albumin 3.2, Globulin 3.6, Albumin/Globulin Ratio 0.9 L 09/02/22 09:07: WBC 7.3, RBC 4.31, Hgb 13.6, Hct 42.2, MCV 97.9, MCH 31.6 H, MCHC 32.2, RDW 12.4, Plt Count 339, MPV 10.2, Neut # (Auto) 6.7 H, Lymph # (Auto) 0.3 L, [place] # (Auto) 0.2, Eos # (Auto) 0.0, Baso # (Auto) 0.0, Absolute Nucleated RBC 0.00, Nucleated RBC % 0.0 09/01/22 19:00: Sodium 136, Potassium 4.1, Chloride 103, Carbon Dioxide 25, Anion Gap 8.0, BUN 14, Creatinine 0.6, Estimated GFR (MDRD) 106, Glucose 140 H, Calcium 8.5 09/01/22 19:00: WBC 6.2, RBC 4.38, Hgb 13.7, Hct 40.8, MCV 93.2, MCH 31.3 H, MCHC 33.6, RDW 12.2, Plt Count 396, MPV 9.7, Neut # (Auto) 3.6, Lymph # (Auto) 1.9, [place] # (Auto) 0.5, Eos # (Auto) 0.1, Baso # (Auto) 0.0, Absolute Nucleated RBC 0.00, Nucleated RBC % 0.0 09/01/22 12:38: Lactic Acid 1.3 09/01/22 11:44: VBG pH 7.289 L, VBG pCO2 40.7 L, VBG pO2 32.4, VBG HCO3 19.1 L, VBG Total CO2 20.3 L, VBG O2 Saturation 60.9, VBG Base Excess -7.1 L 09/01/22 11:44: Sodium 130 L, Potassium 4.6, Chloride 93 L, Carbon Dioxide 21, Anion Gap 16.0 H, BUN 17, Creatinine 0.9, Estimated GFR (MDRD) 67 L, Glucose 485 H, Calcium 8.9, Magnesium 1.9, Total Bilirubin 1.4 H, AST 14, ALT 19, Alkaline Phosphatase 99, Total Protein 7.4, Albumin 3.5, Globulin 3.9, Albumin/Globulin Ratio 0.9 L, Serum Ketones MODERATE H 09/01/22 11:44: WBC 8.5, RBC 4.57, Hgb 14.4, Hct 44.0, MCV 96.3, MCH 31.5 H, MCHC 32.7, RDW 12.2, Plt Count 300, MPV 10.7, Neut # (Auto) 7.1 H, Lymph # (Auto) 0.9 L, [place] # (Auto) 0.4, Eos # (Auto) 0.0, Baso # (Auto) 0.0, Absolute Nucleated RBC 0.00, Nucleated RBC % 0.0 Fish Bones: 09/02/22 09:07 09/02/22 09:07 Home Medications and Allergies Home Medications: Ambulatory Orders Dicyclomine [Bentyl] 20 mg PO DAILY 09/02/22 Venlafaxine [Effexor] 37.5 mg PO DAILY 09/02/22 clonazePAM [Clonazepam] 0.5 mg PO DAILY 09/02/22 Active Medications Cefepime HCl 2 gm/ Sodium (Chloride) 100 mls @ 200 mls/hr IV TID SHELL Last Infusion: 09/02/22 07:45 Dose: Infused Insulin Human Regular 100 unit (/ Sodium Chloride) 100 mls @ 6 mls/hr IV TITR STA; Protocol Stop: 09/03/22 00:36 Last Titration: 09/02/22 13:17 Dose: 9 unit/hr, 9 mls/hr Vancomycin HCl 1 gm/ Sodium (Chloride) 250 mls @ 166.667 mls/hr IV Q12H SHELL Metoclopramide HCl (Metoclopramide 10 Mg Tablet) 10 mg PO Q6H PRN PRN Reason: Nausea / Vomiting Last Admin: 09/02/22 13:26 Dose: 10 mg Oxycodone HCl (Oxycodone 5 Mg Tablet) 5 mg PO Q6H PRN PRN Reason: PAIN Last Admin: 09/02/22 13:26 Dose: 5 mg Prazosin HCl (Prazosin 1 Mg Capsule) 5 mg PO QPM SHELL Sodium Chloride (Sodium Chloride Flush 0.9% 10 Ml Syringe) 10 ml IVP PRN PRN PRN Reason: NEEDED PER PROVIDER ORDERS Last Admin: 09/01/22 23:14 Dose: 10 ml Prazosin HCl 5 mg PO QPM 01/23/19 Trazodone HCl 300 mg PO QPM 01/23/19 Duloxetine HCl [Cymbalta] 60 mg PO BID 09/15/19 Eszopiclone [Lunesta] 3 mg PO QPM PRN 11/06/20 Glucagon,Human Recombinant [Glucagon Emergency Kit] 1 mg INJ PRN PRN 11/06/20 Pantoprazole Sodium [Protonix] 20 mg PO QDAC 11/06/20 Simvastatin [Zocor] 20 mg PO QPM 11/06/20 Spironolactone [Aldactone] 100 mg PO DAILY 11/06/20 methocarbamoL [Robaxin-750] 750 mg PO Q6H PRN 11/06/20 Levothyroxine [Synthroid] 125 mcg PO DAILY 02/21/21 Insulin Regular, Human [Novolin R Flexpen] 0 - 15 unit SQ TIDWM 01/25/22 Metoclopramide [Reglan] 10 mg PO ACHS 01/25/22 Insulin Glargine [Lantus Solostar] 12 unit SUBQ DAILY 03/10/22 Dicyclomine [Bentyl] 20 mg PO DAILY 09/02/22 Venlafaxine [Effexor] 37.5 mg PO DAILY 09/02/22 clonazePAM [Clonazepam] 0.5 mg PO DAILY 09/02/22 Allergies/Adverse Reactions: Allergies Allergy/AdvReac Type Severity Reaction Status Date / Time carisoprodol [From Soma] Allergy Unknown Verified 09/01/22 11:09 divalproex sodium Allergy Rash Verified 09/01/22 11:09 [From Depakote] gabapentin [From Neurontin] Allergy Edema Verified 09/01/22 11:09 lidocaine Allergy Unknown Verified 09/01/22 11:09 nitrofurantoin Allergy Rash Verified 09/01/22 11:09 macrocrystalline * [From Macrodantin] nortriptyline Allergy Unknown Verified 09/01/22 11:09 ondansetron [From Zofran] Allergy Hives Verified 09/01/22 11:09 ondansetron HCl * Allergy Hives Verified 09/01/22 11:09 [From Zofran (as hydrochloride)] pregabalin [From Lyrica] Allergy Headache Verified 09/01/22 11:09 Anes History & Medical History - Anesthetic History Anesthesia Complications: reports: No previous complications - Medical History Cardiovascular: reports: High cholesterol, Murmur Pulmonary: reports: Pneumonia Gastrointestinal: reports: GERD, GI bleed, Ulcers, Other Urinary: reports: Kidney stones Neuro: reports: Head injury, Headaches, Migraines, Peripheral neuropathy, Se izure disorder Musculoskeletal: reports: Osteoarthritis, Fibromyalgia, Fatigue, Chronic back pain Endocrine/Autoimmune: reports: Type 1 diabetes, HyPOthyroidism Blood Disorders: reports: Anemia Skin: reports: None Smoking Status: Never smoker - Surgical History General: reports: Gastric surgery Eyes Ears Nose Throat (EENT): reports: Tonsil/Adenoidectomy Gynecologic: reports: section, Endometrial ablation, Tubal ligation Orthopedic: reports: Other Exam General: Alert Dental: WNL Mouth Opening: Greater than 4 Fingerbreadths Neck Mobility: Normal Mallampati classification: II Thyromental Distance: greater than 6 cm Respiratory: Lungs clear, Decreased breath sounds Cardiovascular: Regular rate Plan Anesthesia Type: MAC, Total IV Consent for Procedure(s) Verified and Reviewed: Yes Code Status: Attempt Resuscitation ASA classification: 3-Severe systemic disease Is this case an emergency?: Yes
--- NOTE | 2022-09-02 15:06 | ANESTHESIA POST OP EVALUATION ---
Anesthesia Post Eval - Post Anesthesia Eval Vitals: Last Vital Signs Temp 36.6 C 09/02/22 14:16 Pulse 102 H 09/02/22 14:16 Resp 16 09/02/22 14:16 BP 126/89 H 09/02/22 14:16 Pulse Ox 100 09/02/22 14:16 O2 Flow Rate CV Function Including HR & BP: Stable Pain Control: Satisfactory Nausea & Vomiting: Negative Mental Status: Baseline Respiratory Status: Airway Patent Hydration Status: Satisfactory Anesthesia Complications: None
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
--- NOTE | 2022-09-02 15:11 | OPERATIVE REPORT ---
Operative Report - General Planned Procedure: Sacral bone biopsy Pre-Op Diagnosis: Presumed ostomyelitis Procedure Performed: Sacral bone biopsy Post Op Diagnosis: Same - Procedure Note Primary Surgeon: Ariel Vasquez MD Anesthesia Provider: Lulu Bear CRNA in direct supervision of Tanya Anesthesia Technique: MAC Estimated Blood Loss (mL): 1 Indications: Presumed osteomyelitis in the setting of sacral decubitus and poorly controlled diabetes Findings: Very soft sacral bone Complications: None. - Other Other Information/Narrative: After verbal and written informed consent was obtained detailing the operation, the alternatives the operation including no operation, risks of infection, bleeding requiring transfusion with its risks, nerve injury, and the patient was rotated onto her right side. Great care was taken to avoid pressure points to prevent pressure necrosis or nerve injury. Monitoring devices were applied. Betadine soaked gauze was placed into the decubitus and left in place to try and sterilize the area as well as possible prior to the procedure. The patient was already receiving antibiotics. Lulu Bear CRNA directly supervising Tanya sedated the patient for the entire procedure. A "time in" then confirmed that the patient was identified with 3 identifiers (name, date, and medical record number), the history and physical was updated and in the chart, the signed consent confirming the procedure was in the chart, the patient was in the correct position, the aforementioned prophylactic measures were in place or given, we had the correct personnel and equipment to complete the procedure and that anesthesia and the surgical team were given an opportunity to express any concerns. With the agreement of everyone in the room we proceeded with the operation. Please note that this procedure was performed in the emergency department at [facility] bed 13. Lidocaine was not used as the patient had a stated allergy to it. The nature of the allergy was not clear but in an abundance of caution lidocaine was not used. After pulling the Betadine soaked gauze out of the wound a Jamshidi needle was used to penetrate the bone at the sacrum in the midline and several passes were made attempting to get a core of bone that was appropriate for microbiologic evaluation. Unfortunately the bone itself was very soft and the Jamshidi needle was unable to get good cores. It was only with the repeat of this procedure that on the fourth pass I was able to get a small bit of bone to come in up into the Jamshidi needle. This was placed into a sterile container and taken to microbiology for evaluation. Due to the very soft nature of this bone I felt continued attempts at getting a larger piece would likely be fruitless and expose her to even greater risk. As such I terminated the procedure. The sacrum was packed with clean sterile gauze. There was no significant bleeding. At this point a timeout was performed that confirmed that all counts were correct x2, the procedure that was performed, the blood loss, the IV fluids administered, the patient's condition, and any concerns of the operating team had. Having tolerated the procedure well, the patient remained in bed 13 in the emergency department at [facility].room in good and stable condition. The plan is for treatment depending on cultures of this bone. This document was created in part using voice recognition technology. Because of the inherent limitations of the system, occasional same sounding word substitutions and grammatical errors do occur and persist despite proofreading. Please read this document for content. CPT 05412
[2022-09-02] MEDS: VANCOMYCIN INJ 1 GM in SODIUM CHLORIDE 0.9% 250 ML IV SCH (16:19)
--- NOTE | 2022-09-02 17:58 | ED Physician Documentation ---
ED Addendum - Addendum Addendum: 09/02/22 17:52 47 y/o diabetic female with deep decubitus ulcer is awaiting potential bed availability for repair. She presented to the ED with elevated blood sugar and the ulcer. She was in DKA and was treated by Dr. Nicole with improvement. She had pelvic MRI showing osteo and a call for a bed to an institution capable of repair has been made and none exists today. She has been started on cefepime and vancomycin and a picc line has been placed. Our surgeon Dr. Snider is consult ed and he was able to do a bone biposy for culture. She has continued needs for treatment and our hospitalist is helping us with management. 09/02/22 17:54 09/02/22 18:03
[2022-09-02] MEDS ORDERED: methocarbamoL 500 MG TABLET PO PRN (20:55)
[2022-09-02] MEDS ORDERED: traZODone 50 MG TABLET PO SCH (21:00)
[2022-09-02] MEDS ORDERED: INSULIN GLARGINE-YFGN 300 UNIT/3 ML PEN SUBQ SCH (21:00)
[2022-09-02] MEDS ORDERED: PRAZOSIN 1 MG CAPSULE PO SCH (21:00)
[2022-09-02] MEDS ORDERED: LACTATED RINGERS 1,000 ML IV STA (21:36)
[2022-09-02 21:53] LABS: BASOPHILS # (AUTO) 0.1 10^3/uL (0.0-0.1); BASOPHILS % (AUTO) 0.6 %; EOSINOPHILS # (AUTO) 0.1 10^3/uL (0.0-0.7); EOSINOPHILS % (AUTO) 0.8 %; HGB - HEMOGLOBIN 12.8 g/dL (12.0-16.0); LYMPHOCYTES # (AUTO) 1.7 10^3/uL (1.5-3.5); LYMPHOCYTES % (AUTO) 18.9 %; MEAN CORPUSCULAR HGB CONC 32.8 g/dL (32.0-36.0); MEAN CORPUSCULAR VOLUME 94.4 fL (81.0-99.0); MEAN PLATELET VOLUME 9.9 fL (7.9-10.8); MONOCYTES # (AUTO) 0.9 10^3/uL (0.0-1.0); MONOCYTES % (AUTO) 10.6 %; NEUTROPHILS % (AUTO) 68.4 %; PLT - PLATELET COUNT 366 10^3/uL (130-450); RED BLOOD COUNT 4.13 10^6/uL (4.20-5.40); RED CELL DISTRIBUTION WIDTH 12.6 % (12.0-15.0); WHITE BLOOD COUNT 8.8 x10^3/uL (4.8-10.8)
[2022-09-02 21:55] LABS: VBG HCO3 20.3 mmol/L (23-28); VBG PH 7.42 (7.31-7.41); VBG PO2 64.9 mmHg (25-47)
[2022-09-02 21:56] LABS: VBG BASE EXCESS -3.2 mmol/L (-2 - +2); VBG OXYGEN SATURATION 94.5 % (60-80); VBG TOTAL CO2 21.3 mmol/L (24-29)
[2022-09-02 22:03] LABS: CALCIUM 8.5 mg/dL (8.5-10.3); CREATININE 0.7 mg/dL (0.4-1.0); POTASSIUM 3.7 mmol/L (3.5-5.0)
--- NOTE | 2022-09-03 02:30 | ED Physician Documentation ---
ED Addendum - Addendum Addendum: 09/03/22 02:29 Received turn over of care from Dr. Maynard. I spoke with orthopedic surgeon (Dr. Jurado) at ; he says this case would be more appropriate for either neurosurgery/neuro-ortho or else general surgery 09/03/22 03:14 I heard back from , hospitalist (Dr. Kilgore) who accepts patient. Transfer center coordinator indicates he had discussed the case with the neurosurgeon but recommendation from them was hospitalist admit
[2022-09-03] MEDS: oxyCODONE 5 MG TABLET PO PRN ×2 (03:12→04:12)
[2022-09-03] MEDS ORDERED: SODIUM CHLORIDE 0.9% 1,000 ML IV STA (03:15)
[2022-09-03] MEDS ORDERED: INSULIN REGULAR HUMAN 100 UNIT/1 ML 10 ML MDV SUBQ STA (03:16)
[2022-09-03 04:00] LABS: B. PARAPERTUSSIS- RESP PCR PAN NOT DETECTED; B. PERTUSSIS- RESP PCR PANEL NOT DETECTED; C. PNEUMONIAE- RESP PCR PANEL NOT DETECTED; CORONAVIRUS 229E-RESP PCR NOT DETECTED; CORONAVIRUS HKU1-RESP PCR NOT DETECTED; CORONAVIRUS NL63-RESP PCR NOT DETECTED; CORONAVIRUS OC43-RESP PCR NOT DETECTED; HUMAN METAPNEUMOVIRUS NOT DETECTED; INFLUENZA A- RESP PCR PANEL NOT DETECTED; INFLUENZA B - RESP PCR PANEL NOT DETECTED; M. PNEUMONIAE- RESP PCR PANEL NOT DETECTED; PARAINFLUENZA VIRUS 1 NOT DETECTED; PARAINFLUENZA VIRUS 2 NOT DETECTED; PARAINFLUENZA VIRUS 3 NOT DETECTED; PARAINFLUENZA VIRUS 4 NOT DETECTED; RHINOVIRUS/ENTEROVIRUS NOT DETECTED; RSV- RESP PCR PANEL NOT DETECTED; SARS-CoV-2 -RESP PCR PANEL NOT DETECTED
[2022-09-03] MEDS: VANCOMYCIN INJ 1 GM in SODIUM CHLORIDE 0.9% 250 ML IV SCH (04:45)
[2022-09-03 04:50] VITALS: BP 111/59
[2022-09-03] MEDS ORDERED: INSULIN ASPART 300 UNIT/3 ML PEN SUBQ SCH (07:00)
== END 2022-09-03 04:51 | disposition short-term general hospital (02) ==
LOC: EDUNIT# → ED 10:53
DX: E10.10 Type 1 diabetes mellitus with ketoacidosis without coma (principal); E10.69 Type 1 diabetes mellitus with other specified complication; M86.9 Osteomyelitis, unspecified; Z79.4 Long term (current) use of insulin; L89.154 Pressure ulcer of sacral region, stage 4; Z66 Do not resuscitate; Z79.82 Long term (current) use of aspirin
CPT/HCPCS: 36415; 72197; 80048; 80053; 82009; 82803; 83605; 83735; 85025; 87040; 87070; 87205; 87633; 96365; 96366; 96367; 96368; 96375; 96376; 99284; 99285; A9270; A9585; J1815; J3370; J7040; J7120

== ENCOUNTER 2023-07-12 14:45 | Outpatient (CLI) | payer MEDICARE, MEDICAID | END 2023-07-12 23:59 | disposition critical access hospital (66) | LOC: EMS 14:45 | DX: L89.159 Pressure ulcer of sacral region, unspecified stage (principal) | CPT/HCPCS: A0425; A0429 ==

== ENCOUNTER 2023-07-12 15:07 | Emergency (ER) | payer MEDICARE, MEDICAID ==
[2023-07-12] MEDS ORDERED: INSULIN LISPRO 300 UNIT/3 ML PEN SUBQ STA (15:20)
[2023-07-12] MEDS ORDERED: CIPROFLOXACIN 250 MG TABLET PO STA (15:25)
--- NOTE | 2023-07-12 15:29 | ED Physician Documentation ---
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 Patient feels fine with no pain, no fevers and actually has a chief complaint of "I want to go home. PD PAST MEDICAL HISTORY - Past Medical History Cardiovascular: High cholesterol, Murmur Respiratory: Pneumonia Neuro: Head injury, Headaches, Migraines, Peripheral neuropathy, Seizure disorder Endocrine/Autoimmune: Type 1 diabetes, HyPOthyroidism GI: GERD, GI bleed, Ulcers, Other JUNIOR PARALEGAL: Other : Kidney stones HEENT: Chronic vision loss, Chronic sinusitis Psych: Depression, Anxiety Musculoskeletal: Osteoarthritis, Fibromyalgia, Fatigue, Chronic back pain Derm: None - Past Surgical History Past Surgical History: Yes General: Gastric surgery Ortho: Other /JUNIOR PARALEGAL: section, Endometrial ablation, Tubal ligation HEENT: Tonsil/Adenoidectomy - Present Medications Home Medications: Ambulatory Orders Medication Instructions Recorded Confirmed Prazosin HCl 5 mg PO QPM 01/23/19 09/02/22 Trazodone HCl 300 mg PO QPM 01/23/19 09/02/22 Duloxetine HCl [Cymbalta] 60 mg PO BID 09/15/19 09/02/22 Eszopiclone [Lunesta] 3 mg PO QPM PRN 11/06/20 09/02/22 Glucagon,Human Recombinant 1 mg INJ PRN PRN 11/06/20 09/02/22 [Glucagon Emergency Kit] Pantoprazole Sodium [Protonix] 20 mg PO QDAC 11/06/20 09/02/22 Promethazine [Phenergan] 25 mg PO Q6HR PRN #14 tablet 11/06/20 09/02/22 Simvastatin [Zocor] 20 mg PO QPM 11/06/20 09/02/22 Spironolactone [Aldactone] 100 mg PO DAILY 11/06/20 09/02/22 methocarbamoL [Robaxin-750] 750 mg PO Q6H PRN 11/06/20 09/02/22 Levothyroxine [Synthroid] 125 mcg PO DAILY 02/21/21 09/02/22 Ibuprofen [Motrin] 800 mg PO Q8H PRN #10 tablet 03/14/21 09/02/22 Insulin Regular, Human [Novolin R 0 - 15 unit SQ TIDWM 01/25/22 09/02/22 Flexpen] Metoclopramide [Reglan] 10 mg PO ACHS 01/25/22 09/02/22 Aspirin Chewable [St Jus 81 mg PO DAILY #30 tablet 02/17/22 09/02/22 Aspirin] Butalb/Acetaminophen/Caffeine 1 cap PO Q4H PRN #20 cap 02/17/22 09/02/22 [Fioricet 50-300-40 mg Capsule] Insulin Glargine [Lantus Solostar] 12 unit SUBQ DAILY 03/10/22 09/02/22 Dicyclomine [Bentyl] 20 mg PO DAILY 09/02/22 09/02/22 Venlafaxine [Effexor] 37.5 mg PO DAILY 09/02/22 09/02/22 clonazePAM [Clonazepam] 0.5 mg PO DAILY 09/02/22 09/02/22 Ciprofloxacin HCl [Cipro] 500 mg PO BID #20 tablet 07/12/23 - Allergies Allergies/Adverse Reactions: Allergies Allergy/AdvReac Type Severity Reaction Status Date / Time carisoprodol [From Soma] Allergy Unknown Verified 09/01/22 11:09 divalproex sodium Allergy Rash Verified 09/01/22 11:09 [From Depakote] gabapentin [From Neurontin] Allergy Edema Verified 09/01/22 11:09 lidocaine Allergy Unknown Verified 09/01/22 11:09 nitrofurantoin Allergy Rash Verified 09/01/22 11:09 macrocrystalline * [From Macrodantin] nortriptyline Allergy Unknown Verified 09/01/22 11:09 ondansetron [From Zofran] Allergy Hives Verified 09/01/22 11:09 ondansetron HCl * Allergy Hives Verified 09/01/22 11:09 [From Zofran (as hydrochloride)] pregabalin [From Lyrica] Allergy Headache Verified 09/01/22 11:09 - Social History Does the pt smoke?: No Smoking Status: Never smoker Does the pt drink ETOH?: No Does the pt have substance abuse?: No - Immunizations Immunizations are current?: No Immunizations: Other immun not current - POLST Patient has POLST: No POLST Status: DNR PD ED PE NORMAL - Vitals Vital signs reviewed: Yes - General General: Alert and oriented X 3, No acute distress - Abdomen Abdomen: Normal bowel sounds, Soft, Non tender - Back Back: Other (There is a deep stage III pressure ulcer over the sacrum which is cultured during exam. There is minimal to no surrounding cellulitis. There is slightly purulent smell to it.) - Neuro Neuro: Alert and oriented X 3, Normal speech Results - Vitals Vitals: Oxygen O2 Source Room air PD Medical Decision Making - ED course ED course: 48-year-old woman with type 1 diabetes presents with a sacral pressure ulcer with worsening appearance and does look like it is needs antibiotics. She is getting good wound care at home but may benefit from formal wound care referral we will start her on ciprofloxacin after looking at prior wound cultures pending follow-up. Departure - Departure Disposition: 01 Home, Self Care Clinical Impression: Sacral pressure ulcer Qualifiers: Pressure injury stage: stage 3 Qualified Code(s): L89.153 - Pressure ulcer of sacral region, stage 3 Condition: Good Record reviewed to determine appropriate education?: Yes Instructions: Pressure Ulcer Tx Clean Dress Follow-Up: [facility] [Provider Group] Prescriptions: Ciprofloxacin HCl [Cipro] 500 mg PO BID #20 tablet Comments: She probably will need to follow-up with a plastic surgeon or information security specialist, please contact her primary care physician for appropriate referral. Return for new or worsening symptoms or if she becomes febrile.
[2023-07-12 15:30] VITALS: BP 119/75; O2SAT 96
[2023-07-12] MEDS ORDERED: oxyCODONE 5 MG TABLET PO STA (16:55)
--- NOTE | 2023-07-14 13:13 | ED Physician Documentation ---
ED Addendum - Addendum Addendum: 07/14/23 13:11 Patient's wound culture is positive for E. coli and beta-hemolytic group G. Sensitive to cefazolin, resistant to ciprofloxacin. Will change to Keflex. Departure - Departure Disposition: 01 Home, Self Care Clinical Impression: Sacral pressure ulcer Qualifiers: Pressure injury stage: stage 3 Qualified Code(s): L89.153 - Pressure ulcer of sacral region, stage 3 Condition: Good Instructions: Pressure Ulcer Tx Clean Dress Follow-Up: [facility] [Provider Group] Prescriptions: Ciprofloxacin HCl [Cipro] 500 mg PO BID #20 tablet cephALEXin [Keflex] 500 mg PO Q6H #28 cap Comments: She probably will need to follow-up with a plastic surgeon or flight operations specialist, please contact her primary care physician for appropriate referral. Return for new or worsening symptoms or if she becomes febrile. Forms: PCP List Discharge Date/Time: 07/12/23 17:33
== END 2023-07-12 17:33 | disposition home or self-care (01) ==
LOC: EDUNIT# → ED 15:07
DX: L89.153 Pressure ulcer of sacral region, stage 3 (principal); E10.40 Type 1 diabetes mellitus with diabetic neuropathy, unspecified; G82.20 Paraplegia, unspecified; E78.00 Pure hypercholesterolemia, unspecified; E03.9 Hypothyroidism, unspecified; Z79.899 Other long term (current) drug therapy; Z79.82 Long term (current) use of aspirin; Z74.01 Bed confinement status
CPT/HCPCS: 87070; 87205; 99283; A9270; 87077; 87181

== ENCOUNTER 2023-07-12 17:35 | Outpatient (CLI) | payer MEDICARE, MEDICAID | END 2023-07-12 23:59 | disposition home or self-care (01) | LOC: EMS 17:35 | PROVIDERS: ATTEND Emergency Medicine | DX: L89.159 Pressure ulcer of sacral region, unspecified stage (principal); G82.20 Paraplegia, unspecified | CPT/HCPCS: A0425; A0428 ==

== ENCOUNTER 2023-07-22 18:16 | Outpatient (CLI) | payer MEDICARE, MEDICAID | END 2023-07-22 18:17 | disposition EMS.NT | LOC: EMS 18:16 | DX: Z03.89 Encounter for observation for other suspected diseases and conditions ruled out (principal) ==

== ENCOUNTER 2023-07-25 16:29 | Outpatient (CLI) | payer MEDICARE, MEDICAID | END 2023-07-25 23:59 | disposition critical access hospital (66) | LOC: EMS 16:29 | DX: R10.32 Left lower quadrant pain (principal); R10.814 Left lower quadrant abdominal tenderness; R10.812 Left upper quadrant abdominal tenderness; R39.89 Other symptoms and signs involving the genitourinary system | CPT/HCPCS: A0425; A0429 ==

== ENCOUNTER 2023-07-25 17:19 | Emergency (ER) | payer MEDICARE, MEDICAID ==
--- NOTE | 2023-07-25 17:29 | ED Physician Documentation ---
PD HPI ABD PAIN - Stated complaint Stated Complaint: ABD PX - Chief complaint Chief Complaint: Abd Pain - History obtained from History obtained from: Patient - History of Present Illness Pain level max: 8 Pain level now: 8 Quality: Aching, Sharp, Pain Associated symptoms: Constipation. No: Fever, Nausea, Vomiting, Hematemesis, Diarrhea, Hematochezia - Additional information Additional information: Patient is a 48-year-old female who presents to the emergency department left lower quadrant abdominal pain. She states she has not had a bowel movement in 2 days. Pain feels sharp. Patient states that she does not feel the urge to have a bowel movement. The pain does not radiate. Nothing seems to make it better or worse. No blood in the stool. No fevers. No vomiting. Review of Systems Constitutional: denies: Fever, Chills GI: denies: Nausea, Vomiting, Diarrhea Skin: denies: Rash Musculoskeletal: denies: Neck pain, Back pain Neurologic: denies: Headache PD PAST MEDICAL HISTORY - Past Medical History Cardiovascular: High cholesterol, Murmur Respiratory: Pneumonia Neuro: Head injury, Headaches, Migraines, Peripheral neuropathy, Seizure disorder Endocrine/Autoimmune: Type 1 diabetes, HyPOthyroidism GI: GERD, GI bleed, Ulcers, Other [employer]: Other : Kidney stones HEENT: Chronic vision loss, Chronic sinusitis Psych: Depression, Anxiety Musculoskeletal: Osteoarthritis, Fibromyalgia, Fatigue, Chronic back pain Derm: None - Past Surgical History Past Surgical History: Yes General: Gastric surgery Ortho: Other /[employer]: section, Endometrial ablation, Tubal ligation HEENT: Tonsil/Adenoidectomy - Present Medications Home Medications: Ambulatory Orders Medication Instructions Recorded Confirmed Prazosin HCl 5 mg PO QPM 01/23/19 09/02/22 Trazodone HCl 300 mg PO QPM 01/23/19 09/02/22 Duloxetine HCl [Cymbalta] 60 mg PO BID 09/15/19 09/02/22 Eszopiclone [Lunesta] 3 mg PO QPM PRN 11/06/20 09/02/22 Glucagon,Human Recombinant 1 mg INJ PRN PRN 11/06/20 09/02/22 [Glucagon Emergency Kit] Pantoprazole Sodium [Protonix] 20 mg PO QDAC 11/06/20 09/02/22 Promethazine [Phenergan] 25 mg PO Q6HR PRN #14 tablet 11/06/20 09/02/22 Simvastatin [Zocor] 20 mg PO QPM 11/06/20 09/02/22 Spironolactone [Aldactone] 100 mg PO DAILY 11/06/20 09/02/22 methocarbamoL [Robaxin-750] 750 mg PO Q6H PRN 11/06/20 09/02/22 Levothyroxine [Synthroid] 125 mcg PO DAILY 02/21/21 09/02/22 Ibuprofen [Motrin] 800 mg PO Q8H PRN #10 tablet 03/14/21 09/02/22 Insulin Regular, Human [Novolin R 0 - 15 unit SQ TIDWM 01/25/22 09/02/22 Flexpen] Metoclopramide [Reglan] 10 mg PO ACHS 01/25/22 09/02/22 Aspirin Chewable [St Jus 81 mg PO DAILY #30 tablet 02/17/22 09/02/22 Aspirin] Butalb/Acetaminophen/Caffeine 1 cap PO Q4H PRN #20 cap 02/17/22 09/02/22 [Fioricet 50-300-40 mg Capsule] Insulin Glargine [Lantus Solostar] 12 unit SUBQ DAILY 03/10/22 09/02/22 Dicyclomine [Bentyl] 20 mg PO DAILY 09/02/22 09/02/22 Venlafaxine [Effexor] 37.5 mg PO DAILY 09/02/22 09/02/22 clonazePAM [Clonazepam] 0.5 mg PO DAILY 09/02/22 09/02/22 Ciprofloxacin HCl [Cipro] 500 mg PO BID #20 tablet 07/12/23 cephALEXin [Keflex] 500 mg PO Q6H #28 cap 07/14/23 - Allergies Allergies/Adverse Reactions: Allergies Allergy/AdvReac Type Severity Reaction Status Date / Time carisoprodol [From Soma] Allergy Unknown Verified 07/12/23 15:30 divalproex sodium Allergy Rash Verified 07/12/23 15:30 [From Depakote] gabapentin [From Neurontin] Allergy Edema Verified 07/12/23 15:30 lidocaine Allergy Unknown Verified 07/12/23 15:30 nitrofurantoin Allergy Rash Verified 07/12/23 15:30 macrocrystalline * [From Macrodantin] nortriptyline Allergy Unknown Verified 07/12/23 15:30 ondansetron [From Zofran] Allergy Hives Verified 07/12/23 15:30 ondansetron HCl * Allergy Hives Verified 07/12/23 15:30 [From Zofran (as hydrochloride)] pregabalin [From Lyrica] Allergy Headache Verified 07/12/23 15:30 - Social History Does the pt smoke?: No Smoking Status: Never smoker Does the pt drink ETOH?: No Does the pt have substance abuse?: No - Immunizations Immunizations are current?: No Immunizations: Other immun not current - POLST Patient has POLST: No POLST Status: DNR PD ED PE NORMAL - Vitals Vital signs reviewed: Yes - General General: Alert and oriented X 3, No acute distress - HEENT HEENT: PERRL, Moist mucous membranes - Neck Neck: Supple, no meningeal sign - Cardiac Cardiac: RRR - Respiratory Respiratory: No respiratory distress, Clear bilaterally - Abdomen Abdomen: Soft, Other (Tender to palpation left upper quadrant and left lower quadrant. No peritoneal signs.) - Derm Derm: Warm and dry - Neuro Neuro: Alert and oriented X 3 - Psych Psych: Normal mood, Normal affect Results - Vitals Vitals: Vital Signs - 24 hr 07/25/23 07/25/23 07/25/23 17:22 18:19 20:00 Temperature 36.3 C L Heart Rate 79 71 68 Respiratory 16 16 20 Rate Blood Pressure 124/82 H 119/78 127/104 H O2 Saturation 97 96 98 Oxygen O2 Source Room air - Labs Labs: Laboratory Tests 07/25/23 07/25/23 07/25/23 17:35 17:35 17:57 WBC 7.3 RBC 4.56 Hgb 13.2 Hct 41.1 MCV 90.1 MCH 28.9 MCHC 32.1 RDW 12.3 Plt Count 323 MPV 10.6 Neut # (Auto) 4.1 Lymph # (Auto) 2.2 [place] # (Auto) 0.6 Eos # (Auto) 0.4 Baso # (Auto) 0.1 Absolute Nucleated RBC 0.00 Nucleated RBC % 0.0 Sodium 135 Potassium 3.6 Chloride 104 Carbon Dioxide 25 Anion Gap 6.0 BUN 14 Creatinine 0.7 Estimated GFR (MDRD) 89 Glucose 132 H Calcium 9.0 Total Bilirubin 0.2 AST 15 ALT 20 Alkaline Phosphatase 88 Total Protein 6.5 Albumin 3.6 Globulin 2.9 Albumin/Globulin Ratio 1.2 Lipase 9 L Urine Color LIGHT YELLOW Urine Clarity CLOUDY Urine pH 6.0 Ur Specific [place] 1.025 Urine Protein 30 H Urine Glucose (UA) NEGATIVE Urine Ketones NEGATIVE Urine Occult Blood MODERATE H Urine Nitrite POSITIVE H Urine Bilirubin NEGATIVE Urine Urobilinogen 0.2 (NORMAL) Ur Leukocyte Esterase SMALL H Urine RBC 6-10 H Urine WBC 11-25 H Ur Squamous Epith Cells NONE SEEN Urine Bacteria Many H Ur Microscopic Review INDICATED Urine Culture Comments INDICATED - Rads (name of study) CT abdomen pelvis Relevant Findings:: Final report received, See rad report PD Medical Decision Making - ED course Complexity details: reviewed results, re-evaluated patient, considered differential, d/w patient ED course: Patient's pain resolved in the emergency department. No significant lab abnormalities. No acute findings on CT scan. Patient request to go home at this time. Declines any pain medications here or for home. No emergency medical condition at this time. Patient counseled regarding signs and symptoms for which I believe and urgent re-evaluation would be necessary. Patient with good understanding of and agreement to plan and is comfortable going home at this time This document was made in part using voice recognition software. While efforts are made to proofread this document, sound alike and grammatical errors may occur. Departure - Departure Disposition: 01 Home, Self Care Clinical Impression: Abdominal pain Qualifiers: Abdominal location: unspecified location Qualified Code(s): R10.9 - Unspecified abdominal pain Condition: Good Instructions: ED Abdominal Pain Female Non-Specific Abdominal Pain Follow-Up: Isatu Belle MD [Primary Care Provider] - Within 1 week Comments: Please follow-up with your doctor for further care. Your CT scan does not show any acute abnormalities. Your urinalysis was sent for culture, but it is likely chronic colonization due to your Valdez catheter. Please return if you worsen. Forms: PCP List Discharge Date/Time: 07/25/23 21:19
[2023-07-25 17:50] LABS: BASOPHILS # (AUTO) 0.1 10^3/uL (0.0-0.1); BASOPHILS % (AUTO) 0.8 %; EOSINOPHILS # (AUTO) 0.4 10^3/uL (0.0-0.7); EOSINOPHILS % (AUTO) 5.6 %; HCT - HEMATOCRIT 41.1 % (37.0-47.0); HGB - HEMOGLOBIN 13.2 g/dL (12.0-16.0); LYMPHOCYTES # (AUTO) 2.2 10^3/uL (1.5-3.5); MEAN CORPUSCULAR HEMOGLOBIN 28.9 pg (27.0-31.0); MEAN CORPUSCULAR HGB CONC 32.1 g/dL (32.0-36.0); MEAN CORPUSCULAR VOLUME 90.1 fL (81.0-99.0); MEAN PLATELET VOLUME 10.6 fL (7.9-10.8); MONOCYTES # (AUTO) 0.6 10^3/uL (0.0-1.0); MONOCYTES % (AUTO) 7.7 %; NEUTROPHILS # (AUTO) 4.1 10^3/uL (1.5-6.6); NEUTROPHILS % (AUTO) 55.8 %; PLT - PLATELET COUNT 323 10^3/uL (130-450); RED BLOOD COUNT 4.56 10^6/uL (4.20-5.40); RED CELL DISTRIBUTION WIDTH 12.3 % (12.0-15.0); WHITE BLOOD COUNT 7.3 x10^3/uL (4.8-10.8)
[2023-07-25 17:53] LABS: ALBUMIN 3.6 g/dL (3.2-5.5); ALBUMIN/GLOBULIN RATIO 1.2 (1.0-2.2); BILIRUBIN,TOTAL 0.2 mg/dL (0.2-1.0); CREATININE 0.7 mg/dL (0.6-1.3); POTASSIUM 3.6 mmol/L (3.5-4.5); TOTAL PROTEIN 6.5 g/dL (6.4-8.9)
[2023-07-25 18:02] LABS: BILIRUBIN,URINE NEGATIVE (NEGATIVE); GLUCOSE, URINE (UA) NEGATIVE (NEGATIVE); KETONES,URINE (UA) NEGATIVE (NEGATIVE); LEUKOCYTE ESTERASE, URINE SMALL (NEGATIVE); NITRITE,URINE POSITIVE (NEGATIVE); OCCULT BLOOD,URINE MODERATE (NEGATIVE); PROTEIN,URINE 30 mg/dL (NEGATIVE); UROBILINOGEN,URINE 0.2 (NORMAL) E.U./dL (NORMAL)
[2023-07-25 18:10] LABS: CLARITY,URINE CLOUDY (CLEAR)
[2023-07-25 18:11] LABS: SQUAMOUS EPITHELIAL CELL,UR NONE SEEN (<= Few)
[2023-07-25 18:12] LABS: BACTERIA,URINE Many /HPF (None Seen)
[2023-07-25] MEDS ORDERED: iohexoL-300 100 ML VIAL IVP ONE (18:57)
--- NOTE | 2023-07-25 19:11 | CT Report ---
PROCEDURE: ABDOMEN/PELVIS W INDICATIONS: LLQ abd pain CONTRAST: 100ml omni 300 TECHNIQUE: After the administration of IV contrast, 5 mm thick sections acquired from the diaphragms to the symp hysis. 5 mm thick coronal and sagittal reformats were acquired. For radiation dose reduction, the f ollowing was used: automated exposure control, adjustment of mA and/or kV according to patient size. COMPARISON: 02/12/2022 FINDINGS: Image quality: Excellent. Lung bases and heart: Unremarkable. Liver: No solid mass. Gallbladder and biliary tree: Within normal limits. Spleen: No splenomegaly. Pancreas: No pancreatic ductal dilation. Adrenals: No adrenal nodule. Kidneys and ureters: No hydronephrosis. No renal cystic lesion which requires follow up. No solid mas s. Bowel and peritoneum: Bariatric surgery can be seen. No dilated loops of small bowel are seen. No significant colon abnormality is seen. Negative for diverticulitis. Lymph nodes: No central or retroperitoneal adenopathy. Vessels: No infrarenal aortic aneurysm. PELVIS Reproductive organs: The uterus demonstrates an unremarkable appearance for age. No adnexal masses ar e seen. Bladder: A Valdez catheter seen, which decompresses the bladder. Pelvic lymph nodes: No pelvic adenopathy by size criteria. Bones: Remote, poorly healed posterolateral rib fractures are seen on both sides, right more numerous than left. Remote T12 and L5 anterior wedge deformities are seen, which are stable from 2021. Other: No significant ventral or inguinal hernia. IMPRESSION: No marisela, acute abnormality is seen. Negative for diverticulitis. Additional findings: Multiple remote, poorly healed bilateral rib fractures are seen. Bariatric surgery Valdez catheter Reviewed by: Kirk Winston MD on 07/25/2023 6:09 PM [facility] Approved by: Kirk Winston MD on 07/25/2023 6:09 PM [facility] Station ID: [id number]
[2023-07-25 21:26] VITALS: BP 127/104; O2SAT 98
--- NOTE | 2023-07-28 14:16 | ED Physician Documentation ---
ED Addendum - Addendum Addendum: 07/28/23 14:16 Urine culture reviewed, polymicrobial growth in a patient with chronic indwelling Valdez likely represents colonization.
== END 2023-07-25 21:19 | disposition home or self-care (01) ==
LOC: EDBD → EDUNIT# → ED 17:19
DX: R10.32 Left lower quadrant pain (principal); E78.00 Pure hypercholesterolemia, unspecified; E10.42 Type 1 diabetes mellitus with diabetic polyneuropathy; E03.9 Hypothyroidism, unspecified; Z79.899 Other long term (current) drug therapy; Z79.82 Long term (current) use of aspirin
CPT/HCPCS: 36415; 74177; 80053; 81001; 83690; 85025; 87077; 87086; 87181; 99283; 99284; Q9967; 81003

== ENCOUNTER 2023-07-25 21:22 | Outpatient (CLI) | payer MEDICARE, MEDICAID | END 2023-07-25 21:23 | disposition home or self-care (01) | LOC: EMS 21:22 | PROVIDERS: ATTEND Emergency Medicine | DX: N39.0 Urinary tract infection, site not specified (principal); Z74.01 Bed confinement status | CPT/HCPCS: A0425; A0428 ==

== ENCOUNTER 2023-07-27 18:25 | Outpatient (CLI) | payer MEDICARE, MEDICAID | END 2023-07-27 18:26 | disposition EMS.NT | LOC: EMS 18:25 | DX: Z03.89 Encounter for observation for other suspected diseases and conditions ruled out (principal) ==

== ENCOUNTER 2023-09-04 16:50 | Outpatient (CLI) | payer MEDICARE, MEDICAID | END 2023-09-04 16:51 | disposition critical access hospital (66) | LOC: EMS 16:50 | DX: Z46.6 Encounter for fitting and adjustment of urinary device (principal) | CPT/HCPCS: A0425; A0429 ==

== ENCOUNTER 2023-09-04 17:12 | Emergency (ER) | payer MEDICARE, MEDICAID ==
--- NOTE | 2023-09-04 17:15 | ED Physician Documentation ---
PD HPI FEMALE - Stated complaint Stated Complaint: CATH ISSUE - History obtained from History obtained from: Patient, Family, EMS - History of Present Illness Timing - onset: Chronic (patient with chronic eli catheter and has home health but the eli has not been changed in 2 months. Pt daughter came to visit and noted the eli appeared dirty and output cloudy and wanted the pateient to get eli changed. Called EMS for that.) Associated symptoms: Other (the patient is not having any fevers, flank pain, abd fullness. She states the eli has continued to drain appropriately.) Review of Systems Constitutional: denies: Fever, Chills GI: reports: Nausea (chronic). denies: Abdominal Pain, Vomiting PD PAST MEDICAL HISTORY - Past Medical History Cardiovascular: High cholesterol, Murmur Respiratory: Pneumonia Neuro: Head injury, Headaches, Migraines, Peripheral neuropathy, Seizure disorder Endocrine/Autoimmune: Type 1 diabetes, HyPOthyroidism GI: GERD, GI bleed, Ulcers, Other [employer]: Other : Kidney stones HEENT: Chronic vision loss, Chronic sinusitis Psych: Depression, Anxiety Musculoskeletal: Osteoarthritis, Fibromyalgia, Fatigue, Chronic back pain Derm: None - Past Surgical History Past Surgical History: Yes General: Gastric surgery Ortho: Other /[employer]: section, Endometrial ablation, Tubal ligation HEENT: Tonsil/Adenoidectomy - Present Medications Home Medications: Ambulatory Orders Medication Instructions Recorded Confirmed Prazosin HCl 5 mg PO QPM 01/23/19 09/02/22 Trazodone HCl 300 mg PO QPM 01/23/19 08/09/23 Duloxetine HCl [Cymbalta] 60 mg PO BID 09/15/19 09/02/22 Eszopiclone [Lunesta] 3 mg PO QPM PRN 11/06/20 09/02/22 Glucagon,Human Recombinant 1 mg INJ PRN PRN 11/06/20 09/02/22 [Glucagon Emergency Kit] Pantoprazole Sodium [Protonix] 20 mg PO QDAC 11/06/20 09/02/22 Promethazine [Phenergan] 25 mg PO Q6HR PRN #14 tablet 11/06/20 08/09/23 Simvastatin [Zocor] 20 mg PO QPM 11/06/20 08/09/23 methocarbamoL [Robaxin-750] 750 mg PO Q6H PRN 11/06/20 08/09/23 Levothyroxine [Synthroid] 125 mcg PO DAILY 02/21/21 09/02/22 Ibuprofen [Motrin] 800 mg PO Q8H PRN #10 tablet 03/14/21 09/02/22 Insulin Regular, Human [Novolin R 0 - 15 unit SQ TIDWM 01/25/22 09/02/22 Flexpen] Metoclopramide [Reglan] 10 mg PO ACHS 01/25/22 09/02/22 Aspirin Chewable [St Jus 81 mg PO DAILY #30 tablet 02/17/22 09/02/22 Aspirin] Butalb/Acetaminophen/Caffeine 1 cap PO Q4H PRN #20 cap 02/17/22 09/02/22 [Fioricet 50-300-40 mg Capsule] Insulin Glargine [Lantus Solostar] 12 unit SUBQ DAILY 03/10/22 09/02/22 Dicyclomine [Bentyl] 20 mg PO DAILY 09/02/22 09/02/22 Ciprofloxacin HCl [Cipro] 500 mg PO BID #20 tablet 07/12/23 - Allergies Allergies/Adverse Reactions: Allergies Allergy/AdvReac Type Severity Reaction Status Date / Time carisoprodol [From Soma] Allergy Unknown Verified 07/12/23 15:30 divalproex sodium Allergy Rash Verified 07/12/23 15:30 [From Depakote] gabapentin [From Neurontin] Allergy Edema Verified 07/12/23 15:30 lidocaine Allergy Unknown Verified 07/12/23 15:30 nitrofurantoin Allergy Rash Verified 07/12/23 15:30 macrocrystalline * [From Macrodantin] nortriptyline Allergy Unknown Verified 07/12/23 15:30 ondansetron [From Zofran] Allergy Hives Verified 07/12/23 15:30 ondansetron HCl * Allergy Hives Verified 07/12/23 15:30 [From Zofran (as hydrochloride)] pregabalin [From Lyrica] Allergy Headache Verified 07/12/23 15:30 - Social History Does the pt smoke?: No Smoking Status: Never smoker Does the pt drink ETOH?: No Does the pt have substance abuse?: No - Immunizations Immunizations are current?: No Immunizations: Other immun not current - POLST Patient has POLST: No POLST Status: DNR PD ED PE NORMAL - Vitals Vital signs reviewed: Yes - General General: Alert and oriented X 3, No acute distress, Well developed/nourished - Abdomen Abdomen: Soft, Other (mild tenderness lower abd without guarding nor percussion tender. ) - Female Female : Deferred (Nursing will be replacing the eli catheter so I deferred exam myself. Nursing reports mild redness in crural areas and the pt reports treats with antifungal PRN. SUperficial skin sore/redness at sacral area reported by nursing. Pt gets wound care weekly for that. ) - Rectal Rectal: Deferred - Derm Derm: Normal color, Warm and dry - Neuro Neuro: Other (general weakness and is bed bound. Alert and conversant.) Results - Vitals Vitals: Oxygen O2 Source Room air PD Medical Decision Making - ED course Complexity details: considered differential (patient here mainly for replacement of eli catheter that has not been changed for 2 months by home health (did not bring catheter, etc) and daughter wanted it changed today. No symptoms of infection. Has a sacral wound per nursing, and the patient is being followed by Wound Care weekly for that.), d/w patient ED course: Eli changed without problems by nursing. Urine output slightly cloudy before and after. No blood. Draining apporipately. Patient is content with the treatment. Departure - Departure Disposition: 01 Home, Self Care Clinical Impression: Urinary catheter (Eli) change required Condition: Stable Record reviewed to determine appropriate education?: Yes Comments: Continue with your usual skin care and catheter care. Continue usual medications. Recheck as needed. Forms: PCP List Discharge Date/Time: 09/04/23 17:59
[2023-09-04 17:26] VITALS: BP 113/70; O2SAT 96
== END 2023-09-04 17:59 | disposition home or self-care (01) ==
LOC: EDUNIT# → ED 17:12
DX: Z46.6 Encounter for fitting and adjustment of urinary device (principal)
CPT/HCPCS: 51702; 99283

== ENCOUNTER 2023-09-04 17:50 | Outpatient (CLI) | payer MEDICARE, MEDICAID | END 2023-09-04 23:59 | disposition home or self-care (01) | LOC: EMS 17:50 | PROVIDERS: ATTEND Emergency Medicine | DX: Z74.01 Bed confinement status (principal) | CPT/HCPCS: A0425; A0428 ==

== ENCOUNTER 2023-11-06 16:06 | Outpatient (CLI) | payer MEDICARE, MEDICAID | END 2023-11-06 16:07 | disposition EMS.NT | LOC: EMS 16:06 | DX: Z03.89 Encounter for observation for other suspected diseases and conditions ruled out (principal) ==

== ENCOUNTER 2023-11-09 08:39 | Outpatient (CLI) | payer MEDICARE, MEDICAID | END 2023-11-09 23:59 | disposition EMS.NT | LOC: EMS 08:39 | DX: E10.65 Type 1 diabetes mellitus with hyperglycemia (principal) ==

== ENCOUNTER 2023-11-09 11:06 | Outpatient (CLI) | payer MEDICARE, MEDICAID | END 2023-11-09 11:07 | disposition EMS.NT | LOC: EMS 11:06 | DX: E10.65 Type 1 diabetes mellitus with hyperglycemia (principal) ==

== ENCOUNTER 2023-11-12 09:00 | Outpatient (CLI) | payer MEDICARE, MEDICAID | END 2023-11-12 09:01 | disposition EMS.NT | LOC: EMS 09:00 | DX: Z03.89 Encounter for observation for other suspected diseases and conditions ruled out (principal); Z74.01 Bed confinement status ==

== ENCOUNTER 2023-11-12 18:10 | Outpatient (CLI) | payer MEDICARE, MEDICAID | END 2023-11-12 18:11 | disposition critical access hospital (66) | LOC: EMS 18:10 | DX: R62.7 Adult failure to thrive (principal); Z74.01 Bed confinement status; Z74.2 Need for assistance at home and no other household member able to render care | CPT/HCPCS: A0425; A0429 ==

== ENCOUNTER 2023-11-12 18:30 | Emergency (ER) | payer MEDICARE, MEDICAID ==
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
[2023-11-12 20:37] LABS: BASOPHILS # (AUTO) 0.1 10^3/uL (0.0-0.1); BASOPHILS % (AUTO) 0.8 %; EOSINOPHILS # (AUTO) 0.3 10^3/uL (0.0-0.7); EOSINOPHILS % (AUTO) 4.2 %; HCT - HEMATOCRIT 41.5 % (37.0-47.0); HGB - HEMOGLOBIN 13.5 g/dL (12.0-16.0); LYMPHOCYTES # (AUTO) 2.7 10^3/uL (1.5-3.5); LYMPHOCYTES % (AUTO) 37.2 %; MEAN CORPUSCULAR HEMOGLOBIN 28.8 pg (27.0-31.0); MEAN CORPUSCULAR HGB CONC 32.5 g/dL (32.0-36.0); MEAN CORPUSCULAR VOLUME 88.5 fL (81.0-99.0); MEAN PLATELET VOLUME 10.2 fL (7.9-10.8); MONOCYTES # (AUTO) 0.5 10^3/uL (0.0-1.0); MONOCYTES % (AUTO) 7.5 %; NEUTROPHILS # (AUTO) 3.6 10^3/uL (1.5-6.6); PLT - PLATELET COUNT 297 10^3/uL (130-450); RED BLOOD COUNT 4.69 10^6/uL (4.20-5.40); RED CELL DISTRIBUTION WIDTH 13.3 % (12.0-15.0); WHITE BLOOD COUNT 7.2 x10^3/uL (4.8-10.8)
[2023-11-12 20:45] LABS: PT - PROTHROMBIN TIME 10.7 secs (9.9-12.6)
[2023-11-12 20:50] LABS: ALBUMIN 3.8 g/dL (3.2-5.5)
[2023-11-12 20:53] LABS: GLUCOSE, URINE (UA) 100 mg/dL (NEGATIVE); KETONES,URINE (UA) NEGATIVE (NEGATIVE); LEUKOCYTE ESTERASE, URINE SMALL (NEGATIVE); NITRITE,URINE POSITIVE (NEGATIVE); OCCULT BLOOD,URINE NEGATIVE (NEGATIVE); PH,URINE 5.5 PH (5.0-7.5); PROTEIN,URINE TRACE mg/dL (NEGATIVE); UROBILINOGEN,URINE 0.2 (NORMAL) E.U./dL (NORMAL)
[2023-11-12 21:01] LABS: ALBUMIN/GLOBULIN RATIO 1.4 (1.0-2.2); BILIRUBIN,TOTAL 0.2 mg/dL (0.2-1.0); CALCIUM 8.7 mg/dL (8.5-10.3); CREATININE 0.7 mg/dL (0.6-1.3); TOTAL PROTEIN 6.6 g/dL (6.4-8.9)
[2023-11-12 21:06] LABS: BILIRUBIN,URINE NEGATIVE (NEGATIVE); CLARITY,URINE HAZY (CLEAR); ICTOTEST,URINE NEGATIVE
[2023-11-12 21:30] LABS: RBC,URINE 0-5 /HPF (0-5); WBC,URINE >25 /HPF (0-5)
[2023-11-12 21:31] LABS: BACTERIA,URINE Many /HPF (None Seen); SQUAMOUS EPITHELIAL CELL,UR RARE Squamous (<= Few)
[2023-11-13] MEDS ORDERED: INSULIN REGULAR HUMAN 300 UNIT/3 ML VIAL IVP STA ×2 (06:39→13:28)
[2023-11-13 07:01] LABS: BASOPHILS # (AUTO) 0.1 10^3/uL (0.0-0.1); BASOPHILS % (AUTO) 0.7 %; EOSINOPHILS # (AUTO) 0.4 10^3/uL (0.0-0.7); EOSINOPHILS % (AUTO) 5.5 %; HCT - HEMATOCRIT 39.4 % (37.0-47.0); HGB - HEMOGLOBIN 12.7 g/dL (12.0-16.0); LYMPHOCYTES # (AUTO) 1.8 10^3/uL (1.5-3.5); LYMPHOCYTES % (AUTO) 25.8 %; MEAN CORPUSCULAR HEMOGLOBIN 29.1 pg (27.0-31.0); MEAN CORPUSCULAR HGB CONC 32.2 g/dL (32.0-36.0); MEAN CORPUSCULAR VOLUME 90.2 fL (81.0-99.0); MEAN PLATELET VOLUME 10.3 fL (7.9-10.8); MONOCYTES # (AUTO) 0.6 10^3/uL (0.0-1.0); NEUTROPHILS # (AUTO) 4.2 10^3/uL (1.5-6.6); NEUTROPHILS % (AUTO) 58.4 %; PLT - PLATELET COUNT 247 10^3/uL (130-450); RED BLOOD COUNT 4.37 10^6/uL (4.20-5.40); RED CELL DISTRIBUTION WIDTH 13.2 % (12.0-15.0); WHITE BLOOD COUNT 7.1 x10^3/uL (4.8-10.8)
[2023-11-13 08:03] LABS: CALCIUM 8.4 mg/dL (8.5-10.3); CREATININE 0.9 mg/dL (0.6-1.3); POTASSIUM 4.1 mmol/L (3.5-4.5)
--- NOTE | 2023-11-13 10:19 | ED Physician Documentation ---
ED Addendum - Addendum Addendum: Patient signed out at shift change. She is a paraplegic and unable to care for herself. Family is now unable to care for her so she is boarding in the emergency department awaiting placement by social work. Her home meds have been reconciled by pharmacy and been ordered. I did evaluate the patient at the bedside and she has no complaints or concerns at this time other than getting her home medications which again I have ordered. 11/13/23 17:23 No progress has been made on placement for the patient as she will require a PASRR screen which will likely not take place over the weekend for the holiday on Wednesday. Patient to be signed out at shift change.
[2023-11-13] MEDS: DICYCLOMINE 10 MG CAPSULE PO SCH ×3 (14:41→21:17)
[2023-11-13] MEDS: methocarbamoL 500 MG TABLET PO PRN (14:41)
[2023-11-13] MEDS: PROMETHAZINE 25 MG TABLET PO PRN (14:41)
[2023-11-13] MEDS: oxyCODONE 5 MG TABLET PO PRN ×2 (14:42→21:23)
[2023-11-13] MEDS: INSULIN LISPRO 300 UNIT/3 ML PEN SUBQ SCH (17:07)
[2023-11-13] MEDS: BUTALB/ACETAM/CAFF 50/325/40MG TABLET PO PRN (17:27)
[2023-11-13] MEDS: traZODone 50 MG TABLET PO SCH (21:12)
[2023-11-13] MEDS: INSULIN GLARGINE-YFGN 300 UNIT/3 ML PEN SUBQ SCH (21:12)
[2023-11-13] MEDS: SERTRALINE 50 MG TABLET PO SCH (21:13)
[2023-11-13] MEDS: ATORVASTATIN 10 MG TABLET PO SCH (21:13)
[2023-11-14] MEDS: PANTOPRAZOLE 40 MG TABLET PO SCH (06:42)
[2023-11-14] MEDS: LEVOTHYROXINE 25 MCG TABLET PO SCH (06:42)
[2023-11-14] MEDS: LEVOTHYROXINE 112 MCG TABLET PO SCH (06:42)
[2023-11-14] MEDS: DICYCLOMINE 10 MG CAPSULE PO SCH ×4 (08:23→20:15)
[2023-11-14] MEDS: oxyCODONE 5 MG TABLET PO PRN ×2 (08:24→14:50)
[2023-11-14] MEDS: BUTALB/ACETAM/CAFF 50/325/40MG TABLET PO PRN ×2 (08:24→14:50)
[2023-11-14] MEDS: TAMSULOSIN 0.4 MG CAPSULE PO SCH (08:24)
[2023-11-14] MEDS: methocarbamoL 500 MG TABLET PO PRN ×2 (08:24→14:50)
[2023-11-14] MEDS: INSULIN LISPRO 300 UNIT/3 ML PEN SUBQ SCH ×3 (08:25→16:49)
[2023-11-14] MEDS: PROMETHAZINE 25 MG TABLET PO PRN (14:50)
[2023-11-14] MEDS ORDERED: INSULIN REGULAR HUMAN 300 UNIT/3 ML VIAL SUBQ STA (16:59)
[2023-11-14] MEDS: ATORVASTATIN 10 MG TABLET PO SCH (20:15)
[2023-11-14] MEDS: SERTRALINE 50 MG TABLET PO SCH (20:15)
[2023-11-14] MEDS: traZODone 50 MG TABLET PO SCH (20:15)
[2023-11-14] MEDS: INSULIN GLARGINE-YFGN 300 UNIT/3 ML PEN SUBQ SCH (20:16)
[2023-11-15] MEDS: LEVOTHYROXINE 112 MCG TABLET PO SCH (06:50)
[2023-11-15] MEDS: PANTOPRAZOLE 40 MG TABLET PO SCH (06:50)
[2023-11-15] MEDS: LEVOTHYROXINE 25 MCG TABLET PO SCH (06:50)
[2023-11-15] MEDS: INSULIN LISPRO 300 UNIT/3 ML PEN SUBQ SCH ×3 (07:59→16:35)
[2023-11-15] MEDS: TAMSULOSIN 0.4 MG CAPSULE PO SCH (08:29)
[2023-11-15] MEDS: DICYCLOMINE 10 MG CAPSULE PO SCH ×4 (08:33→20:46)
[2023-11-15] MEDS: oxyCODONE 5 MG TABLET PO PRN ×2 (08:36→14:31)
[2023-11-15] MEDS: BUTALB/ACETAM/CAFF 50/325/40MG TABLET PO PRN ×3 (08:38→21:00)
[2023-11-15] MEDS: methocarbamoL 500 MG TABLET PO PRN (14:31)
[2023-11-15] MEDS: PROMETHAZINE 25 MG TABLET PO PRN (14:33)
[2023-11-15] MEDS: traZODone 50 MG TABLET PO SCH (20:46)
[2023-11-15] MEDS: SERTRALINE 50 MG TABLET PO SCH (20:46)
[2023-11-15] MEDS: ATORVASTATIN 10 MG TABLET PO SCH (20:48)
[2023-11-15] MEDS: INSULIN GLARGINE-YFGN 300 UNIT/3 ML PEN SUBQ SCH (20:51)
[2023-11-16] MEDS: LEVOTHYROXINE 25 MCG TABLET PO SCH (06:34)
[2023-11-16] MEDS: PANTOPRAZOLE 40 MG TABLET PO SCH (06:35)
[2023-11-16] MEDS: LEVOTHYROXINE 112 MCG TABLET PO SCH (06:36)
--- NOTE | 2023-11-16 07:15 | ED Physician Documentation ---
ED Addendum - Addendum Addendum: 11/16/23 07:14 Patient seen and evaluated at bedside at approximately 0715 hrs. Found to be resting comfortably and in no acute distress.Will monitor carefully throughout the day. Will continue to follow-up carefully with social work pending placement. 11/16/23 07:15
[2023-11-16] MEDS: INSULIN LISPRO 300 UNIT/3 ML PEN SUBQ SCH ×3 (07:47→17:20)
[2023-11-16] MEDS: DICYCLOMINE 10 MG CAPSULE PO SCH ×4 (07:54→20:54)
[2023-11-16] MEDS: BUTALB/ACETAM/CAFF 50/325/40MG TABLET PO PRN ×3 (07:54→21:03)
[2023-11-16] MEDS: TAMSULOSIN 0.4 MG CAPSULE PO SCH (07:55)
[2023-11-16] MEDS: oxyCODONE 5 MG TABLET PO PRN ×2 (07:56→14:13)
[2023-11-16] MEDS: ATORVASTATIN 10 MG TABLET PO SCH (20:54)
[2023-11-16] MEDS: SERTRALINE 50 MG TABLET PO SCH (20:55)
[2023-11-16] MEDS: INSULIN GLARGINE-YFGN 300 UNIT/3 ML PEN SUBQ SCH (20:55)
[2023-11-16] MEDS: traZODone 50 MG TABLET PO SCH (20:55)
[2023-11-17] MEDS: LEVOTHYROXINE 25 MCG TABLET PO SCH (06:12)
[2023-11-17] MEDS: LEVOTHYROXINE 112 MCG TABLET PO SCH (06:12)
[2023-11-17] MEDS: PANTOPRAZOLE 40 MG TABLET PO SCH (06:13)
[2023-11-17] MEDS: INSULIN LISPRO 300 UNIT/3 ML PEN SUBQ SCH ×3 (08:00→17:36)
--- NOTE | 2023-11-17 09:01 | ED Physician Documentation ---
ED Addendum - Addendum Addendum: 11/17/23 Patient has been boarding in the emergency department awaiting placement. Family is unable or unwilling to care for her and she is not able to return safely home at this time. She has been resting comfortably overnight with no voiced complaints. Her social work administration from [facility] will be by to see patient tomorrow to consider for placement. No acute events during my shift and patient signed out at shift change.
[2023-11-17] MEDS: BUTALB/ACETAM/CAFF 50/325/40MG TABLET PO PRN ×3 (09:14→21:13)
[2023-11-17] MEDS: PROMETHAZINE 25 MG TABLET PO PRN ×2 (09:14→15:06)
[2023-11-17] MEDS: methocarbamoL 500 MG TABLET PO PRN ×3 (09:14→21:07)
[2023-11-17] MEDS: DICYCLOMINE 10 MG CAPSULE PO SCH ×4 (09:14→21:06)
[2023-11-17] MEDS: oxyCODONE 5 MG TABLET PO PRN ×3 (09:14→21:07)
[2023-11-17] MEDS: TAMSULOSIN 0.4 MG CAPSULE PO SCH (09:15)
[2023-11-17] MEDS: ATORVASTATIN 10 MG TABLET PO SCH (21:05)
[2023-11-17] MEDS: traZODone 50 MG TABLET PO SCH (21:06)
[2023-11-17] MEDS: INSULIN GLARGINE-YFGN 300 UNIT/3 ML PEN SUBQ SCH (21:06)
[2023-11-17] MEDS: SERTRALINE 50 MG TABLET PO SCH (21:06)
[2023-11-18] MEDS: LEVOTHYROXINE 112 MCG TABLET PO SCH (06:43)
[2023-11-18] MEDS: LEVOTHYROXINE 25 MCG TABLET PO SCH (06:43)
[2023-11-18] MEDS: PANTOPRAZOLE 40 MG TABLET PO SCH (06:43)
[2023-11-18] MEDS: DICYCLOMINE 10 MG CAPSULE PO SCH ×4 (07:56→21:42)
[2023-11-18] MEDS: PROMETHAZINE 25 MG TABLET PO PRN ×2 (07:56→13:25)
[2023-11-18] MEDS: oxyCODONE 5 MG TABLET PO PRN ×3 (07:57→21:42)
[2023-11-18] MEDS: TAMSULOSIN 0.4 MG CAPSULE PO SCH (07:57)
[2023-11-18] MEDS: methocarbamoL 500 MG TABLET PO PRN ×3 (07:58→21:42)
[2023-11-18] MEDS: BUTALB/ACETAM/CAFF 50/325/40MG TABLET PO PRN ×3 (07:58→21:41)
[2023-11-18] MEDS: INSULIN LISPRO 300 UNIT/3 ML PEN SUBQ SCH ×3 (07:59→17:13)
[2023-11-18] MEDS ORDERED: CIPROFLOXACIN 250 MG TABLET PO STA (09:42)
[2023-11-18] MEDS ORDERED: GENTAMICIN 80 MG/2 ML VIAL IM STA (09:42)
[2023-11-18] MEDS ORDERED: GENTAMICIN 308 MG in SODIUM CHLORIDE 0.9% 100ML 100 ML IV SCH (10:00)
[2023-11-18] MEDS: traZODone 50 MG TABLET PO SCH (21:41)
[2023-11-18] MEDS: INSULIN GLARGINE-YFGN 300 UNIT/3 ML PEN SUBQ SCH (21:42)
[2023-11-18] MEDS: ATORVASTATIN 10 MG TABLET PO SCH (21:45)
[2023-11-18] MEDS: SERTRALINE 50 MG TABLET PO SCH (21:47)
--- NOTE | 2023-11-18 21:55 | ED Physician Documentation ---
ED Addendum - Addendum Addendum: 11/18/23 21:53 Patient has been doing okay through the day. blood sugars are okay range. Continued on regular meds. ED charge nurse discussed pt with administration about using the [facility] resident disposition and it was deferred until tomorrow. COntinue current treatments/meds. Social Work is trying SNFs for placement. [facility] declined. Looking at [facility].
[2023-11-18] MEDS ORDERED: INSULIN GLARGINE-YFGN 300 UNIT/3 ML PEN SUBQ STA (22:49)
[2023-11-19 06:09] VITALS: BP 98/60; O2SAT 96
[2023-11-19] MEDS: PANTOPRAZOLE 40 MG TABLET PO SCH (06:55)
[2023-11-19] MEDS: LEVOTHYROXINE 112 MCG TABLET PO SCH (06:56)
[2023-11-19] MEDS: LEVOTHYROXINE 25 MCG TABLET PO SCH (06:56)
[2023-11-19] MEDS: INSULIN LISPRO 300 UNIT/3 ML PEN SUBQ SCH ×2 (08:36→12:13)
[2023-11-19] MEDS: DICYCLOMINE 10 MG CAPSULE PO SCH (08:36)
[2023-11-19] MEDS: TAMSULOSIN 0.4 MG CAPSULE PO SCH (08:36)
[2023-11-19] MEDS: BUTALB/ACETAM/CAFF 50/325/40MG TABLET PO PRN (08:41)
[2023-11-19] MEDS: oxyCODONE 5 MG TABLET PO PRN (08:41)
--- NOTE | 2023-11-19 08:47 | ED Physician Documentation ---
ED Addendum - Addendum Addendum: 11/19/23 08:45 No particular complaint this morning. Apparently did okay overnight. Blood sugars have been in a reasonable range. One from yesterday was 300s but otherwise in the mid 100s. Per social work this morning, we are still waiting to hear back from [facility] who is evaluating. If there is no resolution on that today then hopefully would be able to do a extended stay patron while further placement is sought. For now continue with current treatments.
[2023-11-19] MEDS ORDERED: INSULIN GLARGINE-YFGN 300 UNIT/3 ML PEN SUBQ SCH ×2 (21:00)
[2023-11-25] MEDS ORDERED: traZODone 50 MG TABLET PO STA (00:42)
--- NOTE | 2023-11-28 14:14 | ED Physician Documentation ---
ED Addendum - Addendum Addendum: 11/28/23 14:13 Progress note for patient date 11/14. Continues to be monitored carefully in the emergency department pending social work evaluation and placement. No acute events throughout my shift.
--- NOTE | 2023-11-28 14:14 | ED Physician Documentation ---
ED Addendum - Addendum Addendum: 11/28/23 14:14 Patient ED addendum note for 11/15. Patient was carefully monitored throughout the entirety of my shift. No acute events.
== END 2023-11-19 12:13 | disposition still patient (30) ==
LOC: EDUNIT# → ED 18:30
DX: T76.01XA Adult neglect or abandonment, suspected, initial encounter (principal); E10.9 Type 1 diabetes mellitus without complications; Z79.84 Long term (current) use of oral hypoglycemic drugs; Z79.4 Long term (current) use of insulin; Z66 Do not resuscitate; G82.20 Paraplegia, unspecified
CPT/HCPCS: 36415; 80048; 80053; 81001; 85025; 85610; 87077; 87086; 87181; 87635; 93005; 99283; A9270; J1580; J1815; Q0169; 81003

== ENCOUNTER 2023-11-26 09:19 | Outpatient (CLI) | payer MEDICARE, MEDICAID | END 2023-11-26 23:59 | disposition home or self-care (01) | LOC: EMS 09:19 | PROVIDERS: ATTEND Internal Medicine | DX: Z74.8 Other problems related to care provider dependency (principal); E10.8 Type 1 diabetes mellitus with unspecified complications; N39.0 Urinary tract infection, site not specified; G89.29 Other chronic pain | CPT/HCPCS: A0425; A0428 ==

== ENCOUNTER 2023-11-26 10:58 | Outpatient (CLI) | payer MEDICARE, MEDICAID | END 2023-11-26 23:59 | disposition critical access hospital (66) | LOC: EMS 10:58 | DX: Z03.89 Encounter for observation for other suspected diseases and conditions ruled out (principal) | CPT/HCPCS: A0425; A0429 ==

== ENCOUNTER 2023-11-26 11:17 | Emergency (ER) | payer MEDICARE, MEDICAID ==
[2023-11-26] MEDS: BUTALB/ACETAM/CAFF 50/325/40MG TABLET PO PRN ×2 (13:50→18:15)
--- NOTE | 2023-11-26 13:54 | ED Physician Documentation ---
History of Present Illness - Stated complaint Stated Complaint: DIABETES COMPLICATIONS - Chief complaint Chief Complaint: General - History obtained from History obtained from: Patient, EMS - Additonal information Additional information: Patient is a 48-year-old female with a history of insulin-dependent diabetes, neurogenic bladder with chronic Valdez, paraplegia Presenting to the emergency department after just being discharged from the hospital this morning and not liking her assisted living facility. Patient was brought to the emergency department on November 12 After family felt they could no longer care for her. She did not have any medical need for admission and was brought into the hospital on the extended-stay program and was just discharged this morning to critical [facility] hospital. Patient states that she did not feel comfortable at critical access hospital as they did not have a glucometer for her. They asked her to call her daughter to bring in her glucometer but the daughter was at work and could not do it right away so patient stated she did not feel comfortable there and called 911 to bring her back to the hospital. Patient has no other complaints. 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: section, Endometrial ablation, Tubal ligation HEENT: Tonsil/Adenoidectomy - Present Medications Home Medications: Ambulatory Orders Medication Instructions Recorded Confirmed Trazodone HCl 300 mg PO QPM 01/23/19 11/26/23 Eszopiclone [Lunesta] 3 mg PO QPM PRN 11/06/20 11/26/23 Pantoprazole Sodium [Protonix] 20 mg PO DAILY 11/06/20 11/26/23 Simvastatin [Zocor] 20 mg PO QPM 11/06/20 11/26/23 Levothyroxine [Synthroid] 125 mcg PO DAILY 02/21/21 11/26/23 Metoclopramide [Reglan] 5 mg PO AC 01/25/22 11/26/23 Insulin Lispro [Humalog Kwikpen 7 unit SUBQ TIDWM 09/08/23 11/26/23 U-100] Promethazine [Phenergan] 25 mg PO Q6H PRN 09/08/23 11/26/23 Dicyclomine HCl 20 mg PO QID 11/13/23 11/26/23 Ibuprofen [Motrin] 600 mg PO Q6H PRN 11/13/23 11/26/23 Sertraline [Zoloft] 100 mg PO QPM 11/13/23 11/26/23 methocarbamoL [Methocarbamol] 750 mg PO QID 11/13/23 11/26/23 Butalb/Acetaminophen/Caffeine 1 cap PO Q4H PRN #20 cap 11/25/23 11/26/23 [Fioricet 50-300-40 mg Capsule] Cholecalciferol [Vitamin D3] 50 mcg PO DAILY tab 11/25/23 11/26/23 Cyanocobalamin [Vitamin B-12] 500 mcg PO DAILY tab 11/25/23 11/26/23 Dicyclomine [Bentyl] 20 mg PO QID cap 11/25/23 11/26/23 Eszopiclone [Lunesta] 3 mg PO QPM PRN #15 tab 11/25/23 11/26/23 Insulin Glargine-Yfgn [Semglee] 15 unit SUBQ QPM ml 11/25/23 11/26/23 Insulin Lispro [Humalog Kwikpen 1 - 9 unit SUBQ 11/25/23 11/26/23 U-100] 0800,1200,1700,2100 ml Insulin Lispro [Humalog Kwikpen 7 unit SUBQ TIDWM ml 11/25/23 11/26/23 U-100] oxyCODONE [Roxicodone] 5 mg PO QID PRN #30 tab 11/25/23 11/26/23 - Allergies Allergies/Adverse Reactions: Allergies Allergy/AdvReac Type Severity Reaction Status Date / Time carisoprodol [From Soma] Allergy Unknown Verified 11/12/23 21:53 divalproex sodium Allergy Rash Verified 11/12/23 21:53 [From Depakote] gabapentin [From Neurontin] Allergy Edema Verified 11/12/23 21:53 lidocaine Allergy Unknown Verified 11/12/23 21:53 nitrofurantoin Allergy Rash Verified 11/12/23 21:53 macrocrystalline * [From Macrodantin] nortriptyline Allergy Unknown Verified 11/12/23 21:53 ondansetron [From Zofran] Allergy Hives Verified 11/12/23 21:53 ondansetron HCl * Allergy Hives Verified 11/12/23 21:53 [From Zofran (as hydrochloride)] pregabalin [From Lyrica] Allergy Headache Verified 11/12/23 21:53 - Social History Does the pt smoke?: No Smoking Status: Never smoker Does the pt drink ETOH?: No Does the pt have substance abuse?: No - Immunizations Immunizations are current?: No Immunizations: Other immun not current - POLST Patient has POLST: No POLST Status: DNR Results - Vitals Vitals: Vital Signs - 24 hr 11/26/23 11:34 Temperature 36 C L Heart Rate 82 Respiratory 18 Rate Blood Pressure 120/91 H O2 Saturation 96 Oxygen O2 Source Room air PD Medical Decision Making - ED course ED course: Pt returning to ED after discharge from hospital. Pt had prolonged stay here for placement without any acute medical issues. Family was unable to care for her. Patient called 911 after being at facility for less than 2 hours. Says she did not feel safe because there was no glucometer there and daughter could not bring one right away. SW consult has been requested again to aid in placement. Patient has no other complaints and just left the hospital a few hours ago. Home meds ordered. Pt to be signed out to oncoming provider at shift change. Departure - Departure Clinical Impression: Unable to care for self Condition: Stable Forms: PCP List
[2023-11-26] MEDS: oxyCODONE 5 MG TABLET PO PRN (14:57)
[2023-11-26] MEDS: METOCLOPRAMIDE 10 MG TABLET PO SCH (16:03)
[2023-11-26] MEDS: DICYCLOMINE 10 MG CAPSULE PO SCH ×2 (17:01→21:04)
[2023-11-26] MEDS: INSULIN LISPRO 300 UNIT/3 ML PEN SUBQ SCH (17:09)
[2023-11-26] MEDS: traZODone 50 MG TABLET PO SCH (21:03)
[2023-11-26] MEDS: ATORVASTATIN 40 MG TABLET PO SCH (21:03)
[2023-11-26] MEDS: SERTRALINE 50 MG TABLET PO SCH (21:04)
[2023-11-26] MEDS: INSULIN GLARGINE-YFGN 300 UNIT/3 ML PEN SUBQ SCH (21:04)
[2023-11-27] MEDS: METOCLOPRAMIDE 10 MG TABLET PO SCH ×3 (06:27→16:49)
[2023-11-27] MEDS: LEVOTHYROXINE 125 MCG TABLET PO SCH (06:27)
[2023-11-27] MEDS: oxyCODONE 5 MG TABLET PO PRN ×4 (06:40→21:07)
[2023-11-27] MEDS: BUTALB/ACETAM/CAFF 50/325/40MG TABLET PO PRN ×4 (09:35→21:07)
[2023-11-27] MEDS: DICYCLOMINE 10 MG CAPSULE PO SCH ×4 (09:35→21:03)
[2023-11-27] MEDS: methocarbamoL 500 MG TABLET PO PRN ×2 (09:35→16:48)
[2023-11-27] MEDS: IBUPROFEN 600 MG TABLET PO PRN ×2 (09:35→16:49)
[2023-11-27] MEDS: INSULIN LISPRO 300 UNIT/3 ML PEN SUBQ SCH ×3 (09:36→16:50)
--- NOTE | 2023-11-27 13:58 | ED Physician Documentation ---
ED Addendum - Addendum Addendum: 11/27/23 13:58 No particular problems this morning. He is maintaining normal prior medications diet. No activity as she is bedbound. No change in interventions needed at this time.
[2023-11-27] MEDS: ATORVASTATIN 40 MG TABLET PO SCH (21:02)
[2023-11-27] MEDS: traZODone 50 MG TABLET PO SCH (21:03)
[2023-11-27] MEDS: INSULIN GLARGINE-YFGN 300 UNIT/3 ML PEN SUBQ SCH (21:04)
[2023-11-27] MEDS: SERTRALINE 50 MG TABLET PO SCH (21:04)
[2023-11-27] MEDS ORDERED: INSULIN REGULAR HUMAN 300 UNIT/3 ML VIAL SUBQ ONE (21:20)
[2023-11-27] MEDS ORDERED: ZOLPIDEM 5 MG TABLET PO SCH (22:00)
[2023-11-28] MEDS: METOCLOPRAMIDE 10 MG TABLET PO SCH ×3 (06:34→16:58)
[2023-11-28] MEDS: LEVOTHYROXINE 125 MCG TABLET PO SCH (06:34)
[2023-11-28] MEDS: BUTALB/ACETAM/CAFF 50/325/40MG TABLET PO PRN ×4 (06:46→21:12)
[2023-11-28] MEDS: IBUPROFEN 600 MG TABLET PO PRN ×3 (08:09→21:13)
[2023-11-28] MEDS: oxyCODONE 5 MG TABLET PO PRN ×3 (08:10→21:17)
[2023-11-28] MEDS: DICYCLOMINE 10 MG CAPSULE PO SCH ×4 (08:10→21:12)
[2023-11-28] MEDS: methocarbamoL 500 MG TABLET PO PRN ×2 (08:10→13:48)
[2023-11-28] MEDS: INSULIN LISPRO 300 UNIT/3 ML PEN SUBQ SCH ×3 (08:11→17:00)
--- NOTE | 2023-11-28 08:30 | ED Physician Documentation ---
ED Addendum - Addendum Addendum: 11/28/23 08:29 Patient received a signout from off going physician, please see their d ocumentation for further detail. In short patient 48-year-old female, past medical significant for diabetes, chronic indwelling Valdez catheter, functional quadriplegia. Returns to the emergency department after recent discharge to extended-care facility. No acute events overnight per nursing staff. Patient resting comfortably on my evaluation. Plan continues to be repeat evaluation by social sciences chair.
[2023-11-28] MEDS: ATORVASTATIN 40 MG TABLET PO SCH (21:10)
[2023-11-28] MEDS: SERTRALINE 50 MG TABLET PO SCH (21:10)
[2023-11-28] MEDS: traZODone 50 MG TABLET PO SCH (21:11)
[2023-11-28] MEDS: ESZOPICLONE 3 MG PO PRN (21:11)
[2023-11-28] MEDS: INSULIN GLARGINE-YFGN 300 UNIT/3 ML PEN SUBQ SCH (21:14)
[2023-11-29] MEDS: METOCLOPRAMIDE 10 MG TABLET PO SCH ×3 (06:43→17:00)
[2023-11-29] MEDS: LEVOTHYROXINE 125 MCG TABLET PO SCH (06:43)
--- NOTE | 2023-11-29 08:19 | ED Physician Documentation ---
ED Addendum - Addendum Addendum: 11/29/23 08:19 Patient 48-year-old female received a signout from outgoing physician, please see their documentation for further detail. Per nursing staff no acute events overnight. Patient resting comfortably and in no acute distress. Continues to await evaluation/placement at an appropriate facility.
[2023-11-29] MEDS: DICYCLOMINE 10 MG CAPSULE PO SCH ×4 (08:23→20:50)
[2023-11-29] MEDS: INSULIN LISPRO 300 UNIT/3 ML PEN SUBQ SCH ×3 (08:24→17:01)
[2023-11-29] MEDS: BUTALB/ACETAM/CAFF 50/325/40MG TABLET PO PRN ×3 (08:35→20:53)
[2023-11-29] MEDS: oxyCODONE 5 MG TABLET PO PRN ×3 (08:35→20:55)
[2023-11-29] MEDS: ESZOPICLONE 3 MG PO PRN (20:49)
[2023-11-29] MEDS: SERTRALINE 50 MG TABLET PO SCH (20:50)
[2023-11-29] MEDS: traZODone 50 MG TABLET PO SCH (20:51)
[2023-11-29] MEDS: ATORVASTATIN 40 MG TABLET PO SCH (20:52)
[2023-11-29] MEDS: methocarbamoL 500 MG TABLET PO PRN (20:52)
[2023-11-29] MEDS: IBUPROFEN 600 MG TABLET PO PRN (20:55)
[2023-11-29] MEDS: INSULIN GLARGINE-YFGN 300 UNIT/3 ML PEN SUBQ SCH (20:57)
[2023-11-30] MEDS: METOCLOPRAMIDE 10 MG TABLET PO SCH ×3 (06:56→15:34)
[2023-11-30] MEDS: LEVOTHYROXINE 125 MCG TABLET PO SCH (06:56)
[2023-11-30] MEDS: oxyCODONE 5 MG TABLET PO PRN ×3 (08:03→21:36)
[2023-11-30] MEDS: DICYCLOMINE 10 MG CAPSULE PO SCH ×4 (08:04→21:36)
[2023-11-30] MEDS: INSULIN LISPRO 300 UNIT/3 ML PEN SUBQ SCH ×3 (08:04→17:13)
[2023-11-30] MEDS: BUTALB/ACETAM/CAFF 50/325/40MG TABLET PO PRN ×3 (11:00→21:37)
[2023-11-30] MEDS ORDERED: DOCUSATE SODIUM 100 MG CAPSULE PO STA (15:20)
[2023-11-30] MEDS: traZODone 50 MG TABLET PO SCH (21:35)
[2023-11-30] MEDS: ESZOPICLONE 3 MG PO PRN (21:36)
[2023-11-30] MEDS: ATORVASTATIN 40 MG TABLET PO SCH (21:36)
[2023-11-30] MEDS: SERTRALINE 50 MG TABLET PO SCH (21:36)
[2023-11-30] MEDS: IBUPROFEN 600 MG TABLET PO PRN (21:37)
[2023-11-30] MEDS: INSULIN GLARGINE-YFGN 300 UNIT/3 ML PEN SUBQ SCH (21:38)
[2023-12-01] MEDS: METOCLOPRAMIDE 10 MG TABLET PO SCH ×3 (06:29→17:11)
[2023-12-01] MEDS: LEVOTHYROXINE 125 MCG TABLET PO SCH (06:29)
--- NOTE | 2023-12-01 06:29 | ED Physician Documentation ---
ED Addendum - Addendum Addendum: 12/01/23 06:28 The patient did not have any problems overnight. She has been approved for extended stay patron. Orders were placed and I believe the count was set up by patient access. Not sure if orders have been written by the hospitalist as would not be visible on this account. From the floor nursing, the patient was not taken down in the evening last night and apparently will be taken down to the floor this morning. Social work is still looking for placement.
[2023-12-01] MEDS: BUTALB/ACETAM/CAFF 50/325/40MG TABLET PO PRN ×3 (08:01→21:58)
[2023-12-01] MEDS: DICYCLOMINE 10 MG CAPSULE PO SCH ×4 (08:01→21:45)
[2023-12-01] MEDS: methocarbamoL 500 MG TABLET PO PRN ×3 (08:01→21:57)
[2023-12-01] MEDS: IBUPROFEN 600 MG TABLET PO PRN ×3 (08:01→21:58)
[2023-12-01] MEDS: INSULIN LISPRO 300 UNIT/3 ML PEN SUBQ SCH ×3 (08:02→17:12)
[2023-12-01] MEDS: oxyCODONE 5 MG TABLET PO PRN ×3 (08:02→21:58)
--- NOTE | 2023-12-01 08:20 | ED Physician Documentation ---
ED Addendum - Addendum Addendum: 12/01/23 Patient remains boarding in the emergency department awaiting placement. She is unable to care for herself at home and family members at this time were not able to care for her. She has been accepted into the extended-stay program. Orders have been placed but we are currently awaiting availability of an inpatient bed. Patient may be held in the emergency department to allow for a medical admission to take any available bed today as inpatient beds are quite limited at this time. Patient is sitting up in bed, in no distress. No acute events overnight. She is tolerating her meals. Continuing to monitor her blood sugars. Social work is requestingPT and OT evaluations which I have ordered. Patient is scheduled to have an HCS evaluation tomorrow morning. Patient remains boarding in the emergency department as there are limited inpatient beds today. 12/01/23 19:06 Patient signed out at shift change.
[2023-12-01] MEDS ORDERED: DOCUSATE SODIUM 250 MG CAPSULE PO SCH (09:00)
[2023-12-01] MEDS: SERTRALINE 50 MG TABLET PO SCH (21:45)
[2023-12-01] MEDS: INSULIN GLARGINE-YFGN 300 UNIT/3 ML PEN SUBQ SCH (21:45)
[2023-12-01] MEDS: ATORVASTATIN 40 MG TABLET PO SCH (21:45)
[2023-12-01] MEDS: traZODone 50 MG TABLET PO SCH (21:45)
[2023-12-01] MEDS: ESZOPICLONE 3 MG PO PRN (21:49)
[2023-12-02] MEDS: METOCLOPRAMIDE 10 MG TABLET PO SCH ×3 (06:25→17:47)
[2023-12-02] MEDS: LEVOTHYROXINE 125 MCG TABLET PO SCH (06:26)
[2023-12-02] MEDS: DICYCLOMINE 10 MG CAPSULE PO SCH ×4 (08:23→20:43)
[2023-12-02] MEDS: BUTALB/ACETAM/CAFF 50/325/40MG TABLET PO PRN ×2 (08:23→14:47)
[2023-12-02] MEDS: IBUPROFEN 600 MG TABLET PO PRN ×2 (08:23→14:43)
[2023-12-02] MEDS: oxyCODONE 5 MG TABLET PO PRN ×2 (08:23→14:46)
[2023-12-02] MEDS: INSULIN LISPRO 300 UNIT/3 ML PEN SUBQ SCH ×3 (08:24→17:45)
[2023-12-02] MEDS: SERTRALINE 50 MG TABLET PO SCH (20:43)
[2023-12-02] MEDS: traZODone 50 MG TABLET PO SCH (20:43)
[2023-12-02] MEDS: ATORVASTATIN 40 MG TABLET PO SCH (20:43)
[2023-12-02] MEDS: INSULIN GLARGINE-YFGN 300 UNIT/3 ML PEN SUBQ SCH (20:44)
[2023-12-02] MEDS: ESZOPICLONE 3 MG PO PRN (21:08)
[2023-12-03] MEDS: METOCLOPRAMIDE 10 MG TABLET PO SCH ×3 (06:46→16:41)
[2023-12-03] MEDS: LEVOTHYROXINE 125 MCG TABLET PO SCH (06:46)
[2023-12-03] MEDS: INSULIN LISPRO 300 UNIT/3 ML PEN SUBQ SCH ×3 (07:58→16:42)
[2023-12-03] MEDS: DICYCLOMINE 10 MG CAPSULE PO SCH ×4 (08:28→21:14)
[2023-12-03] MEDS: methocarbamoL 500 MG TABLET PO PRN (08:29)
[2023-12-03] MEDS: IBUPROFEN 600 MG TABLET PO PRN ×2 (08:29→14:30)
[2023-12-03] MEDS: oxyCODONE 5 MG TABLET PO PRN ×2 (08:30→14:29)
[2023-12-03] MEDS: BUTALB/ACETAM/CAFF 50/325/40MG TABLET PO PRN ×3 (08:30→22:08)
--- NOTE | 2023-12-03 15:40 | ED Physician Documentation ---
ED Addendum - Addendum Addendum: 12/03/23 15:39 Patient without specific complaints. She is at her baseline. HCS assessment reportedly done today which will hopefully help with placement.
[2023-12-03] MEDS: ATORVASTATIN 40 MG TABLET PO SCH (21:13)
[2023-12-03] MEDS: SERTRALINE 50 MG TABLET PO SCH (21:14)
[2023-12-03] MEDS: traZODone 50 MG TABLET PO SCH (21:15)
[2023-12-03] MEDS: INSULIN GLARGINE-YFGN 300 UNIT/3 ML PEN SUBQ SCH (21:22)
[2023-12-04 05:50] VITALS: BP 104/63
[2023-12-04] MEDS: IBUPROFEN 600 MG TABLET PO PRN ×2 (05:52→14:54)
[2023-12-04] MEDS: LEVOTHYROXINE 125 MCG TABLET PO SCH (06:42)
[2023-12-04] MEDS: METOCLOPRAMIDE 10 MG TABLET PO SCH ×3 (06:47→16:54)
[2023-12-04 07:03] VITALS: O2SAT 97
[2023-12-04] MEDS: INSULIN LISPRO 300 UNIT/3 ML PEN SUBQ SCH ×3 (07:45→16:54)
[2023-12-04] MEDS: DICYCLOMINE 10 MG CAPSULE PO SCH ×3 (08:59→16:54)
[2023-12-04] MEDS: BUTALB/ACETAM/CAFF 50/325/40MG TABLET PO PRN ×2 (09:00→14:53)
[2023-12-04] MEDS: methocarbamoL 500 MG TABLET PO PRN (09:00)
[2023-12-04] MEDS: oxyCODONE 5 MG TABLET PO PRN ×2 (09:00→14:54)
--- NOTE | 2023-12-04 10:38 | ED Physician Documentation ---
ED Addendum - Addendum Addendum: 12/04/23 10:38 No events overnight. Patient requesting snacks. Pending placement.
--- NOTE | 2023-12-04 17:04 | ED Physician Documentation ---
ED Addendum - Addendum Addendum: 12/04/23 17:[address] Bird, hospitalist who will admit the patient has an extended stay patient. No complaints or changes during my shift. Departure - Departure Disposition: 30 Still a Pt Return for OP Sv Clinical Impression: Unable to care for self, Uncontrolled type 1 diabetes mellitus with hyperglycemia Condition: Stable Forms: PCP List
== END 2023-12-04 17:51 | disposition still patient (30) ==
LOC: EDUNIT# → ED 11:17
DX: Z74.1 Need for assistance with personal care (principal); E10.42 Type 1 diabetes mellitus with diabetic polyneuropathy; Z79.4 Long term (current) use of insulin; Z74.01 Bed confinement status; G82.50 Quadriplegia, unspecified
CPT/HCPCS: 99283